=== PATIENT | female | born 1950 | race Hispanic/Latino ===

== ENCOUNTER → 2018-04-25 15:12 | Outpatient (CLI) | payer MEDICARE, SELFPAY ==
[2018-04-25 17:27] LABS: Absolute Lymphocyte Count 3.19 X10^3/ul (0.83-4.51); Absolute Neutrophil Count 4.7 X10^3/uL (2.0-7.7); Basophil# 0.04 X10^3/uL; Basophil% 0.4 % (0-1); Eosinophil# 0.05 X10^3/uL; Eosinophils% 0.6 % (0-5); Hematocrit 46.2 % (37-47); Hemoglobin 15.7 g/dl (12.0-15.0); Lymphocyte # 3.19 X10^3/ul (4.0); Lymphocyte % 35.1 % (19-41); Mean Corpuscular Hgb 31.8 pg (27.0-32.0); Mean Corpuscular Volume 93.5 fL (81-99); Mean Platelet Vol. 10.6 fl (6.2-12.0); Monocyte# 1.13 X10^3/uL; Monocyte% 12.4 % (0-10); Neutrophil # 4.65 X10^3/uL (2.7-7.7); Neutrophil % 51.2 % (47-70); Platelet Count 267 K/mm3 (150-450); RBC Distribution Width CV 13.1 % (11.6-14.6); RBC Distribution Width SD 43.5 fl (35.1-43.9); Red Blood Count 4.94 M/mm3 (4.2-5.4); White Blood Count 9.1 K/mm3 (4.4-11.0)
[2018-04-25 17:32] LABS: POSITIVE COUNT NO; POSITIVE DIFFERENTIAL NO; POSITIVE MORPHOLOGY NO
[2018-04-25 17:50] LABS: Vitamin D,25 Hydroxy 11.3 ng/mL (29.95-100.01)
[2018-04-25 18:02] LABS: ALB/GLOB Ratio 0.9 RATIO (0.9-2.4); AST(SGOT) 27 U/L (15-37); Alanine Aminotransfer ALT/SGPT 40 U/L (13-56); Albumin, Serum 3.5 g/dL (3.2-5.0); Alkaline Phosphatase 73 U/L (45-117); Anion Gap 8 (5-15); BUN 19 mg/dL (7-18); BUN/Creat Ratio 19.9 RATIO (10-20); Calcium,Total 8.9 mg/dL (8.5-10.1); Chloride 103 mmol/L (98-107); Creatinine, Serum 0.96 mg/dL (0.55-1.02); EST Glomerular Filtration Rate 61 mL/min (>60); Est Glom Filt Rate - Afr Amer 74 mL/min (>60); Globulin 3.7 g/dL (2.2-4.2); Glucose 236 mg/dL (74-106); Potassium 3.7 mmol/L (3.5-5.1); Protein, Total 7.2 g/dL (6.4-8.2); Sodium Level 136 mmol/L (136-145); Thyroid Stim Hormone (TSH) 3.04 uIU/mL (0.358-3.74)
--- OUTSIDE RECORDS SUMMARY | 2018-06-27 21:22 | XMS RPT_ITS ---
:1950 Author Organization [place] Support Name Relationship Address Phone GUZMAN AHUMADA Unavailable [address] + [address] [place] [address] R Unavailable Unavailable Unavailable BRITTNEY, GUZMAN Unavailable Unavailable + BRITTNEY, GUZMAN Unavailable Unavailable + BRITTNEY, GUZMAN Unavailable Unavailable + BRITTNEY, GUZMAN Unavailable Unavailable + BRITTNEY, GUZMAN Unavailable Unavailable + BRITTNEY, GUZMAN Unavailable Unavailable + BRITTNEY, GUZMAN Unavailable Unavailable + BRITTNEY, GUZMAN Unavailable Unavailable + BRITTNEY, GUZMAN Unavailable Unavailable + BRITTNEY, GUZMAN Unavailable Unavailable + BRITTNEY, GUZMAN Unavailable Unavailable + BRITTNEY, GUZMAN Unavailable Unavailable + BRITTNEY, GUZMAN Unavailable Unavailable + BRITTNEY, GUZMAN Unavailable Unavailable + BRITTNEY, GUZMAN Unavailable Unavailable + BRITTNEY, GUZMAN Unavailable Unavailable + BRITTNEY, GUZMAN Unavailable Unavailable + BRITTNEY, GUZMAN Unavailable Unavailable + BRITTNEY, GUZMAN Unavailable Unavailable + BRITTNEY, GUZMAN Unavailable Unavailable + BRITTNEY, GUZMAN Unavailable Unavailable + BRITTNEY, GUZMAN Unavailable Unavailable + BRITTNEY, GUZMAN Unavailable Unavailable + BRITTNEY, GUZMAN Unavailable Unavailable + BRITTNEY, GUZMAN Unavailable Unavailable + BRITTNEY, GUZMAN Unavailable Unavailable + BRITTNEY, GUZMAN Unavailable Unavailable + BRITTNEY, GUZMAN Unavailable Unavailable + BRITTNEY, GUZMAN Unavailable Unavailable + BRITTNEY, GUZMAN Unavailable Unavailable + Care Team Providers Name Role Phone SHERRI LOYD MD Attending Unavailable NEERU RANGEL, DR. GILLESPIE Primary Care Unavailable SHERRI LOYD MD Attending Unavailable NEERU RANGEL, DR. GILLESPIE Primary Care Unavailable NEERU RANGEL, DR. GILLESPIE Attending Unavailable NEERU RANGEL, DR. GILLESPIE Primary Care Unavailable KERRY HATFIELD Attending Unavailable NEERU RANGEL, DR. GILLESPIE Primary Care Unavailable IZAIAH MATTA MD Attending Unavailable IZAIAH MATTA MD Referring Unavailable NEERU RANGEL, DR. GILLESPIE Primary Care Unavailable NEERU RANGEL, DR. GILLESPIE Primary Care Unavailable PIPO HAN DO Attending Unavailable NEERU RANGEL, DR. GILLESPIE Attending Verna SIDDIQI MD., DR. GILLESPIE Primary Care Unavailable NEERU RANGEL, DR. GILLESPIE Attending Verna SIDDIQI MD., DR. GILLESPIE Primary Care Unavailable NEERU RANGEL, DR. GILLESPIE Attending Verna SIDDIQI MD., DR. GILLESPIE Primary Care Unavailable NEERU RANGEL, DR. GILLESPIE Attending Verna SIDDIQI MD., DR. GILLESPIE Primary Care Unavailable KERRY HATFIELD Attending Verna SIDDIQI MD., DR. GILLESPIE Primary Care Unavailable SHERRI LOYD MD Attending Unavailable NEERU RANGEL, DR. GILLESPIE Primary Care Unavailable ALBERT MAYES, DR. CASPER Darling Attending Unavailable NEERU RANGEL, DR. GILLESPIE Primary Care Unavailable KERRY HATFIELD Attending Unavailable NEERU RANGEL, DR. GILLESPIE Primary Care Unavailable ANTOINETTE CERVANTES MD Attending Unavailable NEERU RANGEL, DR. GILLESPIE Primary Care Unavailable NEERU, ERIKA CHI Referring Unavailable NEERU, ERIKA CHI Referring Unavailable NEERU, ERIKA CHI Referring Unavailable ENERU, ERIKA CHI Referring Unavailable NEERU, ERIKA CHI Referring Unavailable Neeru, Erika Chi Attending Unavailable Neeru, Erika Chi Primary Care Unavailable PROBLEMS PROBLEMS DATE TYPE CONDITION / CODE ATTENDING STATUS SOURCE 05/24/2017 Active Unknown / NA Active [facility] UNK(Unknown) [facility] PROCEDURES PROCEDURES No Procedure Records FoundRESULTS RESULTS CBC W/DIFF, AUTOMATED Collected: 04/25/2018 Status: F Source: [facility] 3:13 PM [facility] REPOSITORY TYPE CODE TESTS RESULT OUT OF RANGE REFERENCE UNITS LAB L100.1000 4.4-11.0 K/mm3 Normal WBC 9.1 LAB L100.1200 4.2-5.4 M/mm3 Normal RBC 4.94 LAB L100.1300 12.0-15.0 g/dl High HGB 15.7 LAB L100.1400 37-47 % Normal HCT 46.2 LAB L100.1500 81-99 fL Normal MCV 93.5 LAB L100.1600 27.0-32.0 pg Normal MCH 31.8 LAB L100.1700 32-36 g/gl Normal MCHC 34.0 LAB L100.1810 11.6-14.6 % Normal RDW CV 13.1 LAB L100.1820 35.1-43.9 fl Normal RDW SD 43.5 LAB L100.1900 150-450 K/mm3 Normal PLT 267 LAB L100.2000 6.2-12.0 fl Normal MPV 10.6 LAB L100.2100 47-70 % Normal NEUT% 51.2 LAB L100.2200 19-41 % Normal LY% 35.1 LAB L100.2300 0-10 % High MONO% 12.4 LAB L100.2400 0-5 % Normal EO% 0.6 LAB L100.2500 0-1 % Normal BASO% 0.4 LAB L100.2550 0.0-0.9 % Normal IM GRAN % 0.300 Result Comment: IG% - Immature Granulocytes (promyelocytes, myelocytes and metamyelocytes) > 1% indicates that a LEFT SHIFT is Present. LAB L100.2620 2.0-7.7 X10 3/uL Normal Absolute Neut 4.7 LAB L100.2720 0.83-4.51 X10 3/ul Normal Absolute Lymph 3.19 Performed By: #### L100.0100 #### [facility] [place], [address] VITAMIN D,25 HYDROXY Collected: 04/25/2018 Status: F Source: [facility] 3:13 PM [facility] REPOSITORY TYPE CODE TESTS RESULT OUT OF REFERENCE UNITS RANGE LAB L506.1000 29.95-100.01 ng/mL Low Vitamin D 11.3 25-OH Result Comment: Vitamin D 25(OH) Status Range Deficiency <20 ng/mL (50nmol/L) Insuffciency 20 - 30 ng/mL (50 - 75 nmol/L) Sufficiency 30 - 100 ng/mL (75 - 250 nmol/L) Toxicity >100 ng/mL (>250 nmol/L) Performed By: #### L506.1000 #### [facility] [address] [place], [address] COMPREHENSIVE METABOLIC Collected: 04/25/2018 Status: F Source: [facility] 3:13 PM [facility] REPOSITORY TYPE CODE TESTS RESULT OUT OF RANGE REFERENCE UNITS LAB L501.0100 74-106 mg/dL High GLU 236 Result Comment: Glucose result greater than or equal to 200 mg/dL suggests DIABETES MELLITUS per A.D.A. criteria. Please note revised GLUCOSE reference range effective 2017. LAB L501.1000 7-18 mg/dL High BUN 19 LAB L501.1100 0.55-1.02 mg/dL Normal CREAT,SERUM 0.96 Result Comment: The validity of the calculated GFR AND GFRAA in patients over 70 years has not been determined. Clinical correlation is essential. LAB L501.1110 >60 mL/min Normal EST GFR 61 Result Comment: Non- GFR Calc LAB L501.1115 >60 mL/min Normal EST GFR - AA 74 Result Comment: GFR Calc LAB L501.1300 10-20 RATIO Normal BUN/CRE 19.9 LAB L501.1500 6.4-8.2 g/dL T Normal PROT 7.2 LAB L501.1800 3.2-5.0 g/dL Normal ALB 3.5 LAB L501.1950 2.2-4.2 g/dL Normal GLOB 3.7 LAB L501.2000 0.9-2.4 RATIO Normal A/G 0.9 LAB L501.2200 8.5-10.1 mg/dL CA Normal 8.9 LAB L501.4100 15-37 U/L Normal AST 27 LAB L501.4305 45-117 U/L Normal ALK P 73 LAB L501.4405 13-56 U/L Normal ALT 40 LAB L501.4600 0.20-1.00 mg/dL T Normal BILI 0.40 LAB L501.5300 136-145 mmol/L NA Normal 136 LAB L501.5600 3.5-5.1 mmol/L K Normal 3.7 LAB L501.5900 98-107 mmol/L CL Normal 103 LAB L501.6100 21.0-32.0 mmol/L Normal CO2 25.0 LAB L501.6200 5-15 Normal GAP 8 Performed By: #### L500.4050, L501.9520 #### [facility] [address] [facility], [address] THYROID STIM HORMONE Collected: 04/25/2018 Status: F Source: [place] (TSH) 3:13 PM [facility] REPOSITORY TYPE CODE TESTS RESULT OUT OF RANGE REFERENCE UNITS LAB L501.9520 0.358-3.74 uIU/mL Normal TSH 3.04 Performed By: #### L500.4050, L501.9520 #### [facility] [address] [place], [address] XR CHEST 1 VIEW Observed: 02/26/2018 Status: F Source: [facility] 6:35 PM [facility] REPOSITORY ORIGINAL XR CHEST 1 VIEW Clinical Statement: chest pain. COMPARISON: 02/15/2018 FINDINGS: There is no focal consolidation. No pleural fluid or pneumothorax. The heart size is within normal limits. There is no visible rib fracture or aggressive osseous lesion. RIGHT hemidiaphragm is elevated. IMPRESSION: No acute cardiopulmonary abnormality. Interpreted By: Nhan Pardo Preliminary Report By: Nhan Pardo Electronically Signed By: Nhan Pardo Dictated Date: 02/26/2018 6:43:45 PM Prelim Date: 02/26/2018 6:43:45 PM Sign Date: 02/26/2018 6:44:46 PM CBC Collected: 02/26/2018 Status: F Source: [facility] 6:27 PM [facility] REPOSITORY TYPE CODE TESTS RESULT OUT OF REFERENCE UNITS RANGE LAB WBC(LOINC) 4.60-10.80 10 3/mcL High WBC 13.70 LAB RBCCT(LOINC 4.20-5.40 10 6/mcL ) RBC 5.32 LAB HGB(LOINC) 12.0-16.0 G/dL High Hgb 16.7 LAB HCT(LOINC) 37.0-47.0 % High Hct 50.0 LAB MCV(LOINC) 80.0-94.0 fL High MCV 94.1 LAB MCH(LOINC) 27.0-31.2 pg High MCH 31.5 LAB MCHC(LOINC) 33.0-37.0 G/dL MCHC 33.4 LAB RDW(LOINC) 11.5-14.5 % RDW 13.3 LAB PLT(LOINC) 130-400 10 3/mcL Platelet 297 LAB MPV(LOINC) 7.4-10.4 fL MPV 8.4 Performed By: #### CBC, ADIFF, ANEU #### [address] [address] #### TROP, BMP, GFR #### [address] [place] [address] [address] .AUTO DIFF Collected: 02/26/2018 Status: F Source: [facility] 6:27 PM [facility] REPOSITORY TYPE CODE TESTS RESULT OUT OF REFERENCE UNITS RANGE LAB ALYSON(LOINC) 37.0-80.0 % Neutrophil % 55.0 LAB LYM(LOINC) 10.0-50.0 % Lymphocyte % 33.3 LAB MON(LOINC) 1.7-13.0 % Monocyte % 10.0 LAB EO(LOINC) 0.0-7.0 % Eosinophil % 0.9 LAB BAS(LOINC) 0.0-2.5 % Basophil % 0.8 LAB ABLYM(LOIN 0.77-3.85 10 3/mcL C) High Lymphocyte, 4.60 Absolute LAB GINETTE(LOINC 0.15-1.00 10 3/mcL ) High Monocyte, 1.40 Absolute LAB AEOS(LOINC 0.00-0.40 10 3/mcL ) Eosinophil, 0.10 Absolute LAB ABAS(LOINC 0.00-0.19 10 3/mcL ) Basophil, 0.10 Absolute Performed By: #### CBC, ADIFF, ANEU #### [address] [address] #### TROP, BMP, GFR #### [place] [id number] .NEUABS Collected: 02/26/2018 Status: F Source: [facility] 6:27 [facility] REPOSITORY TYPE CODE TESTS RESULT OUT OF REFERENCE UNITS RANGE LAB ANEU(LOINC) 2.85-6.16 10 3/mcL High Neutrophil, 7.50 Absolute Performed By: #### CBC, ADIFF, ANEU #### [place] [id number] #### TROP, BMP, GFR #### [place] [address] TROP Collected: 02/26/2018 Status: F Source: [facility] 6:27 [facility] REPOSITORY TYPE CODE TESTS RESULT OUT OF REFERENCE UNITS RANGE LAB TROP(LOINC) 0.000-0.040 ng/mL Troponin <0.020 Result Comment: Troponin I reference range: 0.00-0.040 ng/mL Negative and non-diagnostic. >0.040 ng/mL Consistent with cardiac damage, increased clinical risk and possibility of myocardial infarction. Serial measurements, a rise & fall in test results, clinical history, appropriate symptoms and/or ECG changes may help assess possibility of [place]. *Other non-acute coronary syndrome conditions such as CHF, myocarditis, pulmonary emboli, sepsis and cardiac surgery could result in myocardial damage and increased troponin levels. Performed By: #### CBC, ADIFF, ANEU #### [address] [address] #### TROP, BMP, GFR #### [place] [address] BMP Collected: 02/26/2018 Status: F Source: [facility] 6:27 [facility] REPOSITORY TYPE CODE TESTS RESULT OUT OF REFERENCE UNITS RANGE LAB GLU(LOINC) 80-115 mg/dL Glucose High Level 205 LAB NA(LOINC) 136-145 mmol/L Low Sodium Level 132 LAB K(LOINC) 3.5-5.1 mmol/L Potassium Level 4.0 LAB CL(LOINC) 98-107 mmol/L Low Chloride 96 LAB CO2(LOINC) 23-31 mmol/L CO2 24 LAB EBAL(LOINC mEq/L ) Electrolyte Balance 12.0 LAB BUN(LOINC) 7-18 mg/dL BUN High 26 LAB CRE(LOINC) 0.55-1.02 mg/dL Creatinine High Lvl (s) 1.15 LAB BC(LOINC) 7-27 ratio BUN/Creatinine 23 Ratio LAB CA(LOINC) 8.4-10.2 mg/dL Calcium Lvl 9.6 Performed By: #### CBC, ADIFF, ANEU #### [facility] [address] [place], [place] [address] #### TROP, BMP, GFR #### [facility] [address] [place] [address] .GFR Collected: 02/26/2018 Status: F Source: [facility] 6:27 PM [facility] REPOSITORY TYPE CODE TESTS RESULT OUT OF REFERENCE UNITS RANGE LAB GFRAA(LOINC ml/min/1.73 ) sqm GFR 57 Swiss Result Comment: GFR Population mean for , Non- Americans Ages 20-29 = 116 mL/min/1.73 sq.m. Ages 30-39 = 107 mL/min/1.73 sq.m. Ages 40-49 = 99 mL/min/1.73 sq.m. Ages 50-59 = 93 mL/min/1.73 sq.m. Ages 60-69 = 85 mL/min/1.73 sq.m. Ages 70+ = 75 mL/min/1.73 sq.m. Chronic Kidney Disease: Less than 60 mL/min/1.73 square meters End Stage Renal Disease: Less than 15 mL/min/1.73 square meters LAB GFRNO(LOINC) ml/min/1.73sqm GFR Non- 47 Result Comment: GFR Population mean for , Non- Americans Ages 20-29 = 116 mL/min/1.73 sq.m. Ages 30-39 = 107 mL/min/1.73 sq.m. Ages 40-49 = 99 mL/min/1.73 sq.m. Ages 50-59 = 93 mL/min/1.73 sq.m. Ages 60-69 = 85 mL/min/1.73 sq.m. Ages 70+ = 75 mL/min/1.73 sq.m. Chronic Kidney Disease: Less than 60 mL/min/1.73 square meters End Stage Renal Disease: Less than 15 mL/min/1.73 square meters Performed By: #### CBC, ADIFF, ANEU #### [facility] [address] [place], [place] [address] #### TROP, BMP, GFR #### [facility] [address] [place] [address] XR CHEST 2 VIEWS Observed: 02/15/2018 Status: F Source: [facility] 3:53 PM [facility] REPOSITORY ORIGINAL XR CHEST 2 VIEWS, 02/15/2018 3:55 PM INDICATION: Cough/Fever Suspect Pneumonia COMPARISON: October 2017 FINDINGS: The lungs and pleural spaces are clear. The cardiac silhouette is within normal size limits. The pulmonary vasculature is unremarkable in appearance. IMPRESSION: Clear lungs. Interpreted By: Vimal Byrne MD Preliminary Report By: Vimal Byrne MD Electronically Signed By: Vimal Byrne MD Dictated Date: 02/15/2018 3:58:33 PM Prelim Date: 02/15/2018 3:58:33 PM Sign Date: 02/15/2018 3:58:59 PM RESP VIR PNL BY Collected: 02/15/2018 Status: F Source: [facility] 8:50 AM [facility] REPOSITORY TYPE CODE TESTS RESULT OUT OF REFERENCE UNITS RANGE LAB RVPSRC Resp Viral Panl Nasopharyngeal Srce Swab LAB FLUARV Negative Influenza A Virus Negative LAB [id number] Negative Influenza A H1N1 Negative 09 LAB FLUBRV Negative Influenza B Virus Negative LAB RSVA Negative Resp Syncytial Negative Vir A LAB RSVB Negative Resp Syncytial Negative Vir B LAB PIV1 Negative Parainfluenza 1 Negative LAB PIV2 Negative Parainfluenza 2 Negative LAB PIV3 Negative Parainfluenza 3 Negative LAB HMPV Negative H Metapneumovirus Negative LAB HRV Negative Rhinovirus Negative LAB ADVBE Negative Adenovirus B/E Negative LAB ADVC Negative Adenovirus C Negative Performed By: #### RVPPCR #### [facility] [address] [place], [place] [address] PROGRESS Observed: 11/09/2017 Status: COMPLETED Source: [place] 3:34 PM [facility] REPOSITORY HNO ID: [id number] Author: Sade Craig) Donny Parker Service: (none) Author Type: Braille Teacher Type: Progress Notes Filed: 11/09/2017 3:34 PM Note Text: Radiology Service Progress Note PATIENT NAME: Yenny Ahumada DATE OF SERVICE: November 09, 2017 TIME: 3:34 PM PATIENT IDENTITY VERIFICATION COMPLETED USING TWO (2) METHODS: Patient confirmed name verbally and Date of . PATIENT GENDER DATA: Female. status: : No status: NO. PATIENT RELEVANT IMPLANT DATA REVIEWED: Not Applicable RADIOLOGY DEPARTMENT: General X-ray: Exam(s) Completed: Spine X-Ray(s): Thoracic PERIPHERAL IV DATA: Not applicable SIGNED BY: Donny Angela November 09, 2017 3:34 PM XR THORACIC 3V Observed: 11/09/2017 Status: F Source: [facility] AP/LAT/[facility]IMM[facility] 3:18 PM [facility] REPOSITORY * * *Final Report* * * DATE OF EXAM: Nov 09 2017 3:18PM [id number] - XR THORACIC 3V AP/LAT/SWIMMERS / PROCEDURE REASON: pain * * * * Physician Interpretation * * * * HISTORY: 59-YEAR-OLD FEMALE WITH pain. mid upper back pain where bra strap clasps/pain for about 6 months but getting worse TECHNIQUE: XR THORACIC 3V AP/LAT/SWIMMERS Laterality: NOT APPLICABLE Number of different views (projections): 3 COMPARISON: 08/04/2016 RESULT: Counting reference: The first rib-bearing vertebral bodies considered T1. There are 12 thoracic vertebrae. Minimal curve of the upper thoracic spine convex right centered at T5/T6. Vertebral bodies and pedicles are intact. Again noted is mild narrowing at T11/T12 and T12/L1 disc spaces. The remaining disc spaces are maintained. IMPRESSION: MILD DISC SPACE NARROWING IN THE THORACIC AND UPPER LUMBAR SPINE MILD DEXTROSCOLIOSIS. Professional Application Designer: PSCB Transcribe Date/Time: Nov 09 2017 3:41P Dictated by : KEYLA JACOBO MD This examination was interpreted and the report reviewed and electronically signed by: KEYLA JACOBO MD on Nov 09 2017 3:43PM EST [id number] XR CHEST 2 VIEWS Observed: 10/28/2017 Status: F Source: [facility] 8:27 PM [facility] REPOSITORY ORIGINAL XR CHEST 2 VIEWS CLINICAL STATEMENT: Chest Pain COMPARISON: Chest radiograph 02/26/2017 FINDINGS: The cardiomediastinal contours are normal. There is no consolidation, vascular congestion, pleural effusion, or pneumothorax. Osseous structures demonstrate no acute abnormalities. IMPRESSION: No acute radiographic findings. I have personally reviewed the images of this examination and agree with the resident's findings and interpretation. Interpreted By: Nhan Doyle MD Preliminary Report By: Betty Messer MD Electronically Signed By: Nhan Doyle MD Dictated Date: 10/28/2017 8:38:43 PM Prelim Date: 10/28/2017 8:40:04 PM Sign Date: 10/28/2017 8:42:02 PM CBC Collected: 10/28/2017 Status: F Source: [facility] 8:12 PM [facility] REPOSITORY TYPE CODE TESTS RESULT OUT OF REFERENCE UNITS RANGE LAB WBC(LOINC) 4.60-10.80 10 3/mcL High WBC 11.10 LAB RBCCT(LOINC 4.20-5.40 10 6/mcL ) RBC 4.66 LAB HGB(LOINC) 12.0-16.0 G/dL Hgb 14.9 LAB HCT(LOINC) 37.0-47.0 % Hct 43.2 LAB MCV(LOINC) 80.0-94.0 fL MCV 92.7 LAB MCH(LOINC) 27.0-31.2 pg High MCH 32.0 LAB MCHC(LOINC) 33.0-37.0 G/dL MCHC 34.5 LAB RDW(LOINC) 11.5-14.5 % RDW 13.2 LAB PLT(LOINC) 130-400 10 3/mcL Platelet 255 LAB MPV(LOINC) 7.4-10.4 fL MPV 8.4 Performed By: #### CBC, ADIFF, ANEU #### [facility] [address] [place], [place] [address] #### BMP, TROP, GFR #### [address] [place] [address] [address] .AUTO DIFF Collected: 10/28/2017 Status: F Source: [facility] 8:12 PM [facility] REPOSITORY TYPE CODE TESTS RESULT OUT OF REFERENCE UNITS RANGE LAB ALYSON(LOINC) 37.0-80.0 % Neutrophil % 55.1 LAB LYM(LOINC) 10.0-50.0 % Lymphocyte % 33.4 LAB MON(LOINC) 1.7-13.0 % Monocyte % 9.0 LAB EO(LOINC) 0.0-7.0 % Eosinophil % 1.3 LAB BAS(LOINC) 0.0-2.5 % Basophil % 1.2 LAB ABLYM(LOIN 0.77-3.85 10 3/mcL C) Lymphocyte, 3.70 Absolute LAB GINETTE(LOINC 0.15-1.00 10 3/mcL ) Monocyte, 1.00 Absolute LAB AEOS(LOINC 0.00-0.40 10 3/mcL ) Eosinophil, 0.10 Absolute LAB ABAS(LOINC 0.00-0.19 10 3/mcL ) Basophil, 0.10 Absolute Performed By: #### CBC, ADIFF, ANEU #### [facility] [address] [place], [place] [address] #### BMP, TROP, GFR #### [place] [id number] .NEUABS Collected: 10/28/2017 Status: F Source: [facility] 8:12 PM [facility] REPOSITORY TYPE CODE TESTS RESULT OUT OF REFERENCE UNITS RANGE LAB ANEU(LOINC) 2.85-6.16 10 3/mcL Neutrophil, 6.10 Absolute Performed By: #### CBC, ADIFF, ANEU #### [facility] [address] [place], [place] [address] #### BMP, TROP, GFR #### [place] [address] BMP Collected: 10/28/2017 Status: F Source: [facility] 8:12 PM [facility] REPOSITORY TYPE CODE TESTS RESULT OUT OF REFERENCE UNITS RANGE LAB GLU(LOINC) 80-115 mg/dL Glucose High Level 151 LAB NA(LOINC) 136-145 mmol/L Sodium Level 136 LAB K(LOINC) 3.5-5.1 mmol/L Potassium Level 4.5 LAB CL(LOINC) 98-107 mmol/L Chloride 102 LAB CO2(LOINC) 23-31 mmol/L CO2 25 LAB EBAL(LOINC mEq/L ) Electrolyte Balance 9.0 LAB BUN(LOINC) 7-18 mg/dL BUN High 24 LAB CRE(LOINC) 0.55-1.02 mg/dL Creatinine High Lvl (s) 1.06 LAB BC(LOINC) 7-27 ratio BUN/Creatinine 23 Ratio LAB CA(LOINC) 8.4-10.2 mg/dL Calcium Lvl 9.0 Performed By: #### CBC, ADIFF, ANEU #### [address] [address] #### BMP, TROP, GFR #### [address] [place] [address] [address] TROP Collected: 10/28/2017 Status: F Source: [facility] 8:12 PM [facility] REPOSITORY TYPE CODE TESTS RESULT OUT OF REFERENCE UNITS RANGE LAB TROP(LOINC) 0.000-0.040 ng/mL Troponin <0.020 Result Comment: Troponin I reference range: 0.00-0.040 ng/mL Negative and non-diagnostic. >0.040 ng/mL Consistent with cardiac damage, increased clinical risk and possibility of myocardial infarction. Serial measurements, a rise & fall in test results, clinical history, appropriate symptoms and/or ECG changes may help assess possibility of [place]. *Other non-acute coronary syndrome conditions such as CHF, myocarditis, pulmonary emboli, sepsis and cardiac surgery could result in myocardial damage and increased troponin levels. Performed By: #### CBC, ADIFF, ANEU #### [address] [address] #### BMP, TROP, GFR #### [address] [place] [address] [address] .GFR Collected: 10/28/2017 Status: F Source: [facility] 8:12 [facility] REPOSITORY TYPE CODE TESTS RESULT OUT OF REFERENCE UNITS RANGE LAB GFRAA(LOINC ml/min/1.73 ) sqm GFR 62 Swiss Result Comment: GFR Population mean for , Non- Americans Ages 20-29 = 116 mL/min/1.73 sq.m. Ages 30-39 = 107 mL/min/1.73 sq.m. Ages 40-49 = 99 mL/min/1.73 sq.m. Ages 50-59 = 93 mL/min/1.73 sq.m. Ages 60-69 = 85 mL/min/1.73 sq.m. Ages 70+ = 75 mL/min/1.73 sq.m. Chronic Kidney Disease: Less than 60 mL/min/1.73 square meters End Stage Renal Disease: Less than 15 mL/min/1.73 square meters LAB GFRNO(LOINC) ml/min/1.73sqm GFR Non- 52 Result Comment: GFR Population mean for , Non- Americans Ages 20-29 = 116 mL/min/1.73 sq.m. Ages 30-39 = 107 mL/min/1.73 sq.m. Ages 40-49 = 99 mL/min/1.73 sq.m. Ages 50-59 = 93 mL/min/1.73 sq.m. Ages 60-69 = 85 mL/min/1.73 sq.m. Ages 70+ = 75 mL/min/1.73 sq.m. Chronic Kidney Disease: Less than 60 mL/min/1.73 square meters End Stage Renal Disease: Less than 15 mL/min/1.73 square meters Performed By: #### CBC, ADIFF, ANEU #### [place] [address] [address] #### BMP, TROP, GFR #### [address] [place] [address] [address] XR SACRUM/COCCYX 3V Observed: 10/04/2017 Status: F Source: [place] AP/LAT 12:20 PM [facility] REPOSITORY * * *Final Report* * * DATE OF EXAM: Oct 04 2017 12:20PM [id number] - XR SACRUM/COCCYX 3V AP/LAT / PROCEDURE REASON: back pain * * * * Physician Interpretation * * * * EXAM TITLE: XR SACRUM/COCCYX 3V AP/LAT EXAM DATE/TIME: 10/04/2017 12:20 PM COMPARISON: None. CLINICAL INDICATION/HISTORY: Pain in the coccyx. TECHNIQUE: AP and the lateral views of the sacrum/coccyx are presented. FINDINGS: No acute fractures noted in the sacrum. There is acute angulation of the distal sacrum noted on lateral view. No coccygeal subluxation. A transitional vertebra demonstrated at the lumbosacral junction. The visualized pelvic bones are intact. There are vascular calcifications. IMPRESSION: Acute angulation of the distal sacrum; please clinically correlate. Transitional vertebra at the lumbosacral junction. Professional Application Designer: RETA Transcribe Date/Time: Oct 04 2017 3:37P Dictated by : ELFEGO CHAN MD This examination was interpreted and the report reviewed and electronically signed by: ELFEGO CHAN MD on Oct 04 2017 3:40PM EST [id number] Observed: 10/04/2017 Status: COMPLETED Source: [place] 12:09 PM [facility] REPOSITORY HNO ID: [id number] Author: Letty Mendez (Rt) Donny Wilkins Service: (none) Author Type: Braille Teacher Type: Progress Notes Filed: 10/04/2017 12:17 PM Note Text: Radiology Service Progress Note PATIENT NAME: Yenny Ahumada DATE OF SERVICE: October 04, 2017 TIME: 12:09 PM PATIENT IDENTITY VERIFICATION COMPLETED USING TWO (2) METHODS: Patient confirmed name verbally and Date of . PATIENT GENDER DATA: Female. status: : No status: NO. PATIENT RELEVANT IMPLANT DATA REVIEWED: Not Applicable RADIOLOGY DEPARTMENT: General X-ray: Exam(s) Completed: Spine X-Ray(s): Sacrum/Coccyx PERIPHERAL IV DATA: Not applicable SIGNED BY: RT Susi October 04, 2017 12:09 PM US ABDOMEN LIMITED Observed: 09/23/2017 Status: F Source: [facility] 10:35 AM [facility] REPOSITORY ORIGINAL US ABDOMEN LIMITED: Ultrasound of the RIGHT upper quadrant CLINICAL STATEMENT: gallstone, pain, COMPARISON: CT ABD/PELVIS W/ IV CONTRAST ONLY 06/29/2017 FINDINGS: The liver is diffusely increased in echogenicity in comparison to the adjacent kidney with decreased visualization of periportal echoes, suggesting hepatic steatosis. There is a region of focal fatty sp aring adjacent to the gallbladder. No focal lesion is identified. There is no intra or extrahepatic bile duct dilatation. The common duct is 3 mm at the arely hepatis. The gallbladder is normally distended without calculus, wall thickening or tenderness. The visualized pancreas is normal in size and echogenicity. No ascites is seen in the Strange's pouch. The right k idney shows no pelvocaliectasis. IMPRESSION: 1. No acute sonographic finding is identified in the RIGHT upper quadrant. 2. Hepatic steatosis. Interpreted By: Sandra Zarco MD Preliminary Report By: Sandra Zarco MD Electronically Signed By: Sandra Zarco MD Dictated Date: 09/23/2017 12:07:54 PM Prelim Date: 09/23/2017 12:07:54 PM Sign Date: 09/23/2017 12:14:[address] ABD/PEL W IVCON Observed: 09/14/2017 Status: F Source: [place] 3:30 PM [facility] [place] REPOSITORY * * *Final Report* * * DATE OF EXAM: Sep 14 2017 3:30PM [facility] 0530 - CT ABD/PEL W IVCON / PROCEDURE REASON: DIVERTICULITIS OF COLON * * * * Physician Interpretation * * * * EXAMINATION: CT ABDOMEN AND PELVIS WITH IV CONTRAST CLINICAL HISTORY: LEFT lower quadrant pain TECHNIQUE: CT of the abdomen and pelvis was performed using standard technique, scanning from just above the dome of the diaphragm to the symphysis pubis. MQ: CTAP_3 Contrast: IV: 100 ml of Omnipaque 300 Oral: 50 ml of 50ML Omnipaque [address] Radiation dose: Integrated Dose-length product (DLP) for this visit = 355 mGy*cm. CT Dose Reduction Employed: Automated exposure control (AEC) COMPARISON: None. RESULT: Liver: No mass. Biliary: No bile duct dilation. Gallbladder is unremarkable. Spleen: 9 mm low attenuation inferior splenic lesion is indeterminate, likely benign. No splenomegaly. Pancreas: No mass or duct dilation. Adrenals: No mass. Kidneys: Subcentimeter low-attenuation renal lesions, too small to characterize, likely benign. GI tract: No dilation or wall thickening. Lymph nodes: No abdominal or pelvic lymphadenopathy. Mesentery/Peritoneum: No ascites or mass. Retroperitoneum: No mass. Vasculature: The celiac axis and SMA are patent. The portal vein and branches, splenic vein, SMV, and hepatic veins are patent. Pelvis: No mass, ascites or fluid collection. Status post hysterectomy Bones/Soft Tissues: Degenerative changes, no acute bone abnormality. Lower thorax: Only the lung bases are evaluated. There are no pulmonary parenchymal nodules/opacities. IMPRESSION: UNREMARKABLE STUDY. NO ACUTE PROCESS IN THE ABDOMEN AND PELVIS. Professional Application Designer: RETA Transcribe Date/Time: Sep 14 2017 3:56P Dictated by : SUYAPA STANLEY MD This examination was interpreted and the report reviewed and electronically signed by: SUYAPA STANLEY MD on Sep 14 2017 3:59PM EST [id number] PROGRESS Observed: 09/14/2017 Status: COMPLETED Source: [place] 3:21 PM [facility] REPOSITORY O ID: [id number] Author: Lauren Caputo Service: (none) Author Type: (none) Type: Progress Notes Filed: 09/14/2017 3:22 PM Note Text: Radiology Service Progress Note PATIENT NAME: Yenny Ahumada DATE OF SERVICE: September 14, 2017 TIME: 3:21 PM PATIENT IDENTITY VERIFICATION COMPLETED USING TWO (2) METHODS: Patient confirmed name verbally and Date of . PATIENT GENDER DATA: Female. status: : No status: NO. PATIENT RELEVANT IMPLANT DATA REVIEWED: Not Applicable CONTRAST INDUCED NEPHROPATHY RISK FACTORS: Patient age > 60 years CREATININE: Creatinine Date Value Ref Range Status 10/18/2016 0.70 0.58 - 0.96 mg/dL Final 09/27/2016 1.00 (H) 0.58 - 0.96 mg/dL Final 07/28/2016 1.01 (H) 0.58 - 0.96 mg/dL Final eGFR-All Other Races Date Value Ref Range Status 10/18/2016 >60 . Final Comment: eGFR (Estimated GFR) Units of measure: mL/min/1.73 meters squared eGFR is derived from the reexpressed MDRD Study equation using the following parameters: serum creatinine, age, gender and race. The creatinine assay has been calibrated to be traceable to IDMS. An eGFR <60 mL/min/1.73m2 for >3 months is consistent with chronic kidney disease. Refer to KDOQI guidelines for clinical interpretation. In patients with unstable renal function, e.g. those with acute kidney injury, the eGFR may not accurately reflect actual GFR. eGFR- Date Value Ref Range Status 10/18/2016 >60 Final P.O.C.T. RESULTS: POC done: Yes, See Lab Tab September 14, 2017 RADIOLOGIST NOTIFIED?: No ALLERGIES: Reviewed and unchanged CONTRAST ALLERGY: NO. PERIPHERAL IV ACCESS: Ambulatory: IV type: A peripheral IV was started in the Left hand with a Angio cath: 22 gauge., Site assessment: Clean,Dry and Intact, Site disposition Discontinued RADIOLOGY DEPARTMENT: CT; Exam(s) Completed: Abdomen/Pelvis SIGNED BY: Lauren Best Ct September 14, 2017 3:21 PM SAMUEL CREATININE Collected: 09/14/2017 Status: F Source: [place] 1:00 PM [facility] [place] REPOSITORY TYPE CODE TESTS RESULT OUT OF REFERENCE UNITS RANGE LAB WCRET 0.7-1.4 mg/dL Samuel Creatinine 0.7 MA MAMMOGRAM Observed: 08/18/2017 Status: F Source: [facility] DIAGNOSTIC BILATERAL 1:30 PM [facility] REPOSITORY W/AMANDA ORIGINAL FROM: [facility] [address] [address] PROCEDURE FOR: YENNY AHUMADA [address] [place] [address] Home: PID#: [id number] Exam#: [id number] : 1950 Age: 67 TO: VERNA SIDDIQI MD [address] [place] [address] #[id number] DIGITAL DIAGNOSTIC MAMMOGRAM 3D/2D WITH CAD WITH MEDIOLATERAL OBLIQUE CRANIOCAUDAL: 08/18/2017 CLINICAL: Generalized pain/Right breast only x 2-3 days was off and on now constant. No prior exams were available for comparison. There are scattered fibroglandular elements in both breasts. Current study was also evaluated with a Computer Aided Detection (CAD) system. Scattered calcifications are present in both breasts. No significant masses, calcifications, or other findings are seen in either breast. IMPRESSION: BENIGN There is no mammographic abnormality seen in the right breast to correspond with the pain; clinical follow-up is recommended. There is no mammographic evidence of malignancy. A 1 year screening mammogram is recommended. ARGENIS OVALLE MD [facility]/:09/06/2017 16:55:25 Corn Cutter Operator: PAULINA ALVARADO RT(R), [facility] letter sent: Normal BI-RADS 1&2 Mammogram BI-RADS: [address] ABD/PELVIS W/ IV Observed: 06/29/2017 Status: F Source: [facility] CONTRAST ONLY 8:05 PM [facility] REPOSITORY ORIGINAL CT ABD/PELVIS W/ IV CONTRAST ONLY CLINICAL STATEMENT: Right lower quadrant pain. COMPARISON: CT abdomen pelvis 04/29/2016 TECHNIQUE: Axial images were obtained from the lung bases through the pubic symphysis after the administration of IV contrast. Coronal and sagittal reformatted images were generated from the axial datas et. This exam was performed according to our departmental dose optimization program, and includes the following measures where applicable: automated exposure control, adjustment of the mAs and/or kVp ac cording to patient size and/or exam, and an iterative reconstruction algorithm. FINDINGS: There is redemonstration of a 3 mm nodule within the right lower lobe (image 4). There is mild subsegmental atelectasis. Heart size is normal. There are coronary artery calcifications. The liver, gallbladder, pancreas, spleen, and adrenal glands demonstrate no acute abnormality. The kidneys are symmetric in size and enhancement without evidence of solid mass. Gentle lobulation of the renal parenchyma bilaterally are unchanged. Subcentimeter hypodensity within the left kidney is also unchanged, too small to accurately characterize, and likely reflects a small cyst. No significant pelvocaliectasis or perinephric stranding. No focal bladder abnormalities identified. The patient is status post hysterectomy. No adnexal mass is seen. The large and small bowel are normal in caliber with the majority of the sigmoid colon and rectum being completely collapsed. The appendix is normal. The abdominal aorta is nonaneurysmal atherosclerotic calcification. There are no pathologically enlarged abdominal or pelvic lymph nodes. No free fluid or free intraperitoneal air. Soft tissue density w ithin the subcutaneous fat of the anterior abdominal wall inferiorly is likely related to medication self administration. Degenerative changes are seen throughout the visualized axial skeleton. Previous ly described, S5 fracture is unchanged. No evidence of an acute or destructive osseous lesion. IMPRESSION: 1. Normal appendix. 2. No acute process. 3. Stable 3 mm nodule within the right lower lobe. If the patient is considered high risk, a repeat CT of the chest in 12 months is recommended per Fleischner criteria. 2017 Fleischner Society Recommendations for Single Solid Lung Nodule Follow-Up based on size (average of long- and short-axis diameters) <6 mm Low-Risk Patient: No routine follow-up <6 mm High-Risk Patient: Optional CT at 12 months I have personally reviewed the images of this examination and agree with the resident's findings and interpretation. Interpreted By: Curly Aguilar MD Preliminary Report By: Lauri Douglas MD Electronically Signed By: Curly Aguilar MD Dictated Date: 06/29/2017 8:21:32 PM Prelim Date: 06/29/2017 8:28:52 PM Sign Date: 06/29/2017 9:15:38 PM CBC Collected: 06/29/2017 Status: F Source: [facility] 6:59 PM [facility] REPOSITORY TYPE CODE TESTS RESULT OUT OF REFERENCE UNITS RANGE LAB WBC(LOINC) 4.60-10.80 10 3/mcL WBC 10.60 LAB RBCCT(LOINC 4.20-5.40 10 6/mcL ) RBC 4.82 LAB HGB(LOINC) 12.0-16.0 G/dL Hgb 15.9 LAB HCT(LOINC) 37.0-47.0 % Hct 44.9 LAB MCV(LOINC) 80.0-94.0 fL MCV 93.1 LAB MCH(LOINC) 27.0-31.2 pg High MCH 32.9 LAB MCHC(LOINC) 33.0-37.0 G/dL MCHC 35.3 LAB RDW(LOINC) 11.5-14.5 % RDW 13.6 LAB PLT(LOINC) 130-400 10 3/mcL Platelet 243 LAB MPV(LOINC) 7.4-10.4 fL MPV 8.4 Performed By: #### CBC, ADIFF, ANEU, GFR, LIP, CMP #### [place] [id number] .AUTO DIFF Collected: 06/29/2017 Status: F Source: [facility] 6:59 PM [facility] REPOSITORY TYPE CODE TESTS RESULT OUT OF REFERENCE UNITS RANGE LAB ALYSON(LOINC) 37.0-80.0 % Neutrophil % 61.1 LAB LYM(LOINC) 10.0-50.0 % Lymphocyte % 28.9 LAB MON(LOINC) 1.7-13.0 % Monocyte % 8.2 LAB EO(LOINC) 0.0-7.0 % Eosinophil % 0.4 LAB BAS(LOINC) 0.0-2.5 % Basophil % 1.4 LAB ABLYM(LOIN 0.77-3.85 10 3/mcL C) Lymphocyte, 3.10 Absolute LAB GINETTE(LOINC 0.15-1.00 10 3/mcL ) Monocyte, 0.90 Absolute LAB AEOS(LOINC 0.00-0.40 10 3/mcL ) Eosinophil, 0.00 Absolute LAB ABAS(LOINC 0.00-0.19 10 3/mcL ) Basophil, 0.10 Absolute Performed By: #### CBC, ADIFF, ANEU, GFR, LIP, CMP #### [address] [address] .NEUABS Collected: 06/29/2017 Status: F Source: [facility] 6:59 PM [facility] REPOSITORY TYPE CODE TESTS RESULT OUT OF REFERENCE UNITS RANGE LAB ANEU(LOINC) 2.85-6.16 10 3/mcL High Neutrophil, 6.50 Absolute Performed By: #### CBC, ADIFF, ANEU, GFR, LIP, CMP #### [address] [address] .GFR Collected: 06/29/2017 Status: F Source: [facility] 6:59 PM [facility] REPOSITORY TYPE CODE TESTS RESULT OUT OF REFERENCE UNITS RANGE LAB GFRAA(LOINC ml/min/1.73 ) sqm GFR 91 Swiss Result Comment: GFR Population mean for , Non- Americans Ages 20-29 = 116 mL/min/1.73 sq.m. Ages 30-39 = 107 mL/min/1.73 sq.m. Ages 40-49 = 99 mL/min/1.73 sq.m. Ages 50-59 = 93 mL/min/1.73 sq.m. Ages 60-69 = 85 mL/min/1.73 sq.m. Ages 70+ = 75 mL/min/1.73 sq.m. Chronic Kidney Disease: Less than 60 mL/min/1.73 square meters End Stage Renal Disease: Less than 15 mL/min/1.73 square meters LAB GFRNO(LOINC) ml/min/1.73sqm GFR Non- >60 Result Comment: GFR Population mean for , Non- Americans Ages 20-29 = 116 mL/min/1.73 sq.m. Ages 30-39 = 107 mL/min/1.73 sq.m. Ages 40-49 = 99 mL/min/1.73 sq.m. Ages 50-59 = 93 mL/min/1.73 sq.m. Ages 60-69 = 85 mL/min/1.73 sq.m. Ages 70+ = 75 mL/min/1.73 sq.m. Chronic Kidney Disease: Less than 60 mL/min/1.73 square meters End Stage Renal Disease: Less than 15 mL/min/1.73 square meters Performed By: #### CBC, ADIFF, ANEU, GFR, LIP, CMP #### [address] [address] LIP Collected: 06/29/2017 Status: F Source: [facility] 6:59 PM [facility] REPOSITORY TYPE CODE TESTS RESULT OUT OF REFERENCE UNITS RANGE LAB LIP(LOINC) 8-78 IU/L Lipase Level 70 Performed By: #### CBC, ADIFF, ANEU, GFR, LIP, CMP #### [address] [address] CMP Collected: 06/29/2017 Status: F Source: [facility] 6:59 PM [facility] REPOSITORY TYPE CODE TESTS RESULT OUT OF REFERENCE UNITS RANGE LAB 1547-9 80-115 mg/dL GLUCOSE High 149 LAB NA(LOINC) 136-146 mEq/L Sodium Level 139 LAB K(LOINC) 3.5-5.1 mEq/L Potassium Level 4.4 LAB CL(LOINC) 98-107 mEq/L Chloride 105 LAB CO2(LOINC) 23-31 mEq/L CO2 28 LAB EBAL(LOINC mEq/L ) Electrolyte Balance 6.0 LAB BUN(LOINC) 7.0-18.0 mg/dL BUN 11.3 LAB CRE(LOINC) 0.6-1.2 mg/dL Creatinine Lvl (s) 0.8 LAB BC(LOINC) 7-27 ratio BUN/Creatinine 14 Ratio LAB CA(LOINC) 8.4-10.2 mg/dL Calcium Lvl 9.6 LAB PROT(LOINC 6.0-8.3 G/dL ) Total Protein 6.8 LAB ALB(LOINC) 3.4-4.8 G/dL Albumin Level 4.2 LAB GLB(LOINC) G/dL Globulin 2.6 LAB AG(LOINC) 1.1-2.5 ratio A/G Ratio 1.6 LAB BILT(LOINC 0.2-1.0 mg/dL ) Bili Total 0.5 LAB AP(LOINC) 40-135 IU/L Alk Phos 68 LAB AST(LOINC) 10-40 IU/L AST/SGOT 19 LAB ALT(LOINC) 10-35 IU/L ALT/SGPT 27 Performed By: #### CBC, ADIFF, ANEU, GFR, LIP, CMP #### [address] [place], [place] [address] UA Collected: 06/29/2017 Status: F Source: [facility] 6:48 PM [facility] REPOSITORY TYPE CODE TESTS RESULT OUT OF RANGE REFERENCE UNITS LAB SPCUA(PAT NC) UA Specimen Type Clean Catch LAB CLRUA(PAT NC) UA Color YELLOW LAB APPUA(PAT NC) UA Appear CLEAR LAB SGUA(LOIN C) UA Spec Grav 1.020 LAB GLUA(LOIN Negative mg/dL C) UA Glucose Abnormal >=1000 LAB BILUA(PAT NC) UA Bili NEGATIVE LAB KETUA(PAT mg/dL NC) UA Ketones NEGATIVE LAB BLDUA(PAT NC) UA Blood NEGATIVE LAB PHUA(LOIN C) UA pH 5.5 LAB PROUA(PAT mg/dL NC) UA Protein NEGATIVE LAB UROUA(PAT E.U./dL NC) UA Urobilinogen 0.2 LAB NITUA(PAT NC) UA Nitrite NEGATIVE LAB LEUUA(PAT NC) UA Leuk Est NEGATIVE Performed By: #### UA, UAMICAO #### [address] [place], [place] [address] .URINALYSIS MICROSCOPIC Collected: 06/29/2017 Status: F Source: [facility] ([facility]) 6:48 PM [facility] REPOSITORY TYPE CODE TESTS RESULT OUT OF RANGE REFERENCE UNITS LAB WBCUA(LOIN None Seen /hpf C) UA WBC None Seen LAB RBCUA(LOIN None Seen /hpf C) UA RBC None Seen LAB EPIUA(LOIN None Seen /hpf C) UA Squam Abnormal Epithelial 0-5 Performed By: #### UA, UAMICAO #### [address] [place], [place] [address] RESP VIR PNL BY Collected: 06/22/2017 Status: F Source: [facility] PCR 1:14 PM [facility] REPOSITORY TYPE CODE TESTS RESULT OUT OF RANGE REFERENCE UNITS LAB RVPSRC(LO INC) Resp Viral Panl Srce [employer]OR[employer] MARKETER LAB FLUARV(LO Negative INC) Influenza A Virus NEGAT LAB FLUAH1(LO Negative INC) Influenza A H1 Virus Abnormal NOTI LAB FLUAH3(LO Negative INC) Influenza A H3 Virus Abnormal NOTI LAB Q4P097(LO Negative INC) Influenza A H1N1 09 NEGAT LAB FLUBRV(LO Negative INC) Influenza B Virus NEGAT LAB RSVA(LOIN Negative C) Resp Syncytial Vir A NEGAT LAB RSVB(LOIN Negative C) Resp Syncytial Vir B NEGAT LAB PIV1(LOIN Negative C) Parainfluenza 1 NEGAT LAB PIV2(LOIN Negative C) Parainfluenza 2 NEGAT LAB PIV3(LOIN Negative C) Parainfluenza 3 NEGAT LAB HMPV(LOIN Negative C) H Metapneumovirus NEGAT LAB HRV(LOINC Negative ) Rhinovirus Abnormal Positive LAB ADVBE(PAT Negative NC) Adenovirus B/E NEGAT LAB ADVC(LOIN Negative C) Adenovirus C NEGAT LAB RVCOM(PAT NC) RV Panel Comment NOTI Performed By: #### RVPPCR #### [facility] [address] [place] [address] RESP VIR PNL BY Collected: 05/26/2017 Status: F Source: [facility] PCR 3:13 PM [facility] REPOSITORY TYPE CODE TESTS RESULT OUT OF REFERENCE UNITS RANGE LAB RVPSRC Resp Viral Panl Srce Nasal LAB FLUARV Negative Influenza A Virus Negative LAB Q0W905 Negative Influenza A H1N1 09 Negative LAB FLUBRV Negative Influenza B Virus Negative LAB RSVA Negative Resp Syncytial Vir A Negative LAB RSVB Negative Resp Syncytial Vir B Negative LAB PIV1 Negative Parainfluenza 1 Negative LAB PIV2 Negative Parainfluenza 2 Negative LAB PIV3 Negative Parainfluenza 3 Negative LAB HMPV Negative H Metapneumovirus Negative LAB HRV Negative Rhinovirus Negative LAB ADVBE Negative Adenovirus B/E Negative LAB ADVC Negative Adenovirus C Negative Performed By: #### RVPPCR #### [facility] [address] [address] PROGRESS Observed: 05/24/2017 Status: COMPLETED Source: [place] 2:05 PM [facility] REPOSITORY HNO ID: [id number] Author: Lauren Best Ct Service: (none) Author Type: (none) Type: Progress Notes Filed: 05/24/2017 2:05 PM Note Text: Radiology Service Progress Note PATIENT NAME: Yenny Ahumada DATE OF SERVICE: May 24, 2017 TIME: 2:05 PM PATIENT IDENTITY VERIFICATION COMPLETED USING TWO (2) METHODS: Patient confirmed name verbally and Date of . PATIENT GENDER DATA: Female. status: : No status: NO. PATIENT RELEVANT IMPLANT DATA REVIEWED: Not Applicable RADIOLOGY DEPARTMENT: CT; Exam(s) Completed: Brain PERIPHERAL IV DATA: Not applicable SIGNED BY: Lauren Best Ct May 24, 2017 2:[address] BRAIN WO IVCON Observed: 05/24/2017 Status: F Source: [place] 1:49 PM [facility] REPOSITORY * * *Final Report* * * DATE OF EXAM: May 24 2017 1:49PM [facility] 0504 - CT BRAIN WO IVCON / PROCEDURE REASON: headache-STAT * * * * Physician Interpretation * * * * EXAMINATION: CT BRAIN WO IVCON HISTORY: Headaches for 3 weeks. TECHNIQUE: Serial axial images without IV were obtained from the vertex to the foramen magnum. MQ: CTBWO_3 CT Dose-Length Product (DLP): 857 mGy*cm CT Dose Reduction Employed: No dose reduction techniques were required COMPARISON: None. RESULT: Post-operative change: Suspect bilateral lens replacement. Acute change: No evidence of an acute infarct or other acute parenchymal process. Hemorrhage: No evidence of acute intracranial hemorrhage. Mass Lesion / Mass Effect: There is no evidence of an intracranial mass or extraaxial fluid collection. No significant mass effect. Chronic change: None apparent. Parenchyma: There is no significant volume loss. The brain parenchyma is otherwise within normal limits for age. Ventricles: The ventricles are within normal limits of size and configuration for age. Paranasal sinuses and skull base: Scant atherosclerotic calcifications in the carotid siphons. The visualized paranasal sinuses and mastoid air cells are grossly clear. The skull base and imaged soft tissues are unremarkable. IMPRESSION: No evidence of an acute intracranial process or intracranial mass effect. Professional Application Designer: RETA Transcribe Date/Time: May 24 2017 2:30P Dictated by : PRINCE DOTSON MD This examination was interpreted and the report reviewed and electronically signed by: PRINCE DOTSON MD on May 24 2017 2:34PM EST [id number] ALLERGIES ALLERGIES DATE TYPE / CODE NAME / CODE REACTION SEVERITY SOURCE 10/31/2016 Drug diphenhydramine/F00 Other Unknown [place] Allergy/434 8791200(RXNORM) [facility] 650365([facility] ED CT) Repository 04/01/2016 DRUG/[id number] BENADRYL SWELLING [facility] 003(SNOMED DECONGESTANT [facility] CT) Repository ENCOUNTERS ENCOUNTERS ADMIT/DISCHARGE ACCOUNT NUMBER ADMITTING ENCOUNTER LOCATION SOURCE CLASS 04/25/2018 [id number] Ambulatory [facility] ding:POLAB3 Repository 02/26/2018/02/27/20 [id number] Emergency BBuilding:ER [place] [facility] Repository 02/15/2018/02/16/20 [id number] Emergency BBuilding:ER [place] [facility] Repository 11/13/2017/11/14/19 [id number] Emergency BBuilding:ER [place] [facility] Repository 11/09/2017/11/10/19 [id number] Ambulatory [address] Repository 10/29/2017/10/30/19 [id number] Emergency BBuilding:ER [place] [facility] Repository 10/28/2017/10/29/19 [id number] Emergency BBuilding:ER [place] [facility] Repository 10/04/2017/10/05/19 [id number] Ambulatory [address] Repository 09/23/2017/09/24/19 [id number] Ambulatory [address] ding:[facility] Repository 09/23/2017 [id number] [facility] 09/22/2017/09/23/[id number] ding:RAD [facility] Repository 09/14/2017/09/15/19 [id number] Ambulatory [address] Repository 09/14/2017/09/15/19 [id number] Ambulatory [address] Repository 08/18/2017/08/19/19 [id number] Ambulatory [address] ding:RAD [facility] Repository 07/12/2017 [id number] Ambulatory ABuilding:WD [facility] Repository 07/07/2017/07/08/19 [id number] Emergency ABuilding:ER [address] Repository 06/29/2017/06/30/19 [id number] Emergency BBuilding:ER [address] Repository 06/06/2017/06/07/19 [id number] Ambulatory [address] ding:[facility] Repository 05/29/2017/05/29/19 [id number] Emergency BBuilding:ER [address] Repository 05/24/2017/06/21/19 [id number] Ambulatory [address] Repository 05/06/2017/05/06/19 [id number] Emergency BBuilding:ER [address] Repository PAYERS PAYERS ENCOUNTER GUARANTOR PAYER SUBSCRIBER SOURCE 04/25/2018 YENNY Baker [id number] Insurance:[facility] HOSTETLERDOB: [facility] BHUPINDER MAHARAJ MEDICARE SENIOR [id number] [address] [facility] Number: Repository [id number]: (577) [id number] () Date:[id number] [id number] [place] [address]OE: 04/25/2018 Secondary NOT GIVENUNK [place] Insurance:SELF PAY [facility] Number: Effective Repository Date:2018-04-25 02/26/2018 [place]ENNY L [facility] [place]OSTETLERDOB: Insurance:VICTORIAA DARÍO HOSTETLERDOB: [facility] CHOICE MEDICAREPolicy [id number] Repository [address] Number: [address], [place] [id number], [place] [address]~[email or web address]@Y Date:2018-02-26Tel: (330) GEORGETTEel: [id number] [phone] Name:[address] (HP)Tel: (000) (HP) [id number], [place] [address] (WP) [phone]: 02/15/2018 [facility] HOSTETLERDOB: Insurance:[employer] HOSTETLERDOB: [facility] CHOICE MEDICAREPolicy [id number] Repository [address] Number: [address], [place] [id number] [address] [address]~[email or web address]@Y Date:2018-02-15Tel: (330) GEORGETTEel: [phone] [phone] ( Name:[address] (HP)Tel: (000) (HP) [address]Hkznmmbvj, [place] [address] (WP) [phone]: 11/13/2017 [facility] HOSTETLERDOB: Insurance:[employer] HOSTETLERDOB: [facility] CHOICE MEDICAREPolicy [id number] Repository [address] Number: [address] [place], [place] [id number] [address] [place] [address]~[email or web address]@Y Date:2017-11-13Tel: (330) EDERGrantCOMTel: [phone] [phone] Name:[address] (HP)Tel: (000) (HP) [address]Bmvqmrhhi, [place] 000[address] (WP) [phone]: 10/29/2017 [facility] HOSTETLERDOB: Insurance:[employer]MANA [employer] HOSTETLERDOB: [facility] CHOICE MEDICAREPolicy [id number] Repository [address] Number: [address], [place] [id number] [address], [place] [address]~SMHSTTLR@Y Date:2017-10-29Tel: (330) COMTel: [phone] [phone] Name:[address] (HP)Tel: (000) (HP) [address]Cjosnrsyg, [place] [address] (WP) [phone]: 10/28/2017 YENNY Mcmahon [facility] YENNY [facility] HOSTETLERDOB: Insurance:HUMANA [employer] HOSTETLERDOB: [facility] CHOICE MEDICAREPolicy [id number] Repository [address] Number: [address], [place] [id number] [address], [place] [address]~[email or web address]@Y Date:2017-10-28Tel: (330) EDERGrantCOMTel: [phone] [phone] ( Name:[address] (HP)Tel: (000) (HP) [address]I[place]jn, [place] [address] (WP) [phone]: [facility] HOSTET[facility]: Insurance:HUMANA [employer] HOSTETLERDOB: [facility] CHOICE MEDICAREPolicy [id number] Repository [address] Number: [address], [place] [id number] [address], [place] [address]~SMHSTTLR@Y Date:2017-09-23Tel: (330) EDER.COMTel: [id number] [phone] Name:NPO Box (HP)Tel: (000) (HP) [address] [place] [address] 000-0000 (WP) [phone]: 09/23/2017 [facility] HOSTETLERDOB: Insurance:HUMANA GOLD HOSTETLERDOB: [facility] MED[facility]ARE[facility] [id number] Repository [address] Number: [address] [facility] [place] [id number] [address] [place] [address]~SMHSTTLR@Y Date:2017-09-23Tel: (330) BERTHABRANDYGrantCOMTel: [id number] [phone] Name:NPO Box (HP)Tel: (000) (HP) 90246F[address]ub[address] [place] [address] 000-0000 (WP) [phone]: 09/22/2017 [facility] HOSTETLERDOB: Insurance:HUMANA GOLD HOSTETLERDOB: [facility] CHOICE MEDICAREPolicy [id number] Repository [address] Number: [address] [place], [place] [id number] [address]~[facility] CENTERTTLR@Y Date:2017-09-1961185Qmx: (330) BERTHABRANDYGrantCOMTel: [phone] [phone] Name:NPO Box (HP)Tel: (000) (HP) [address]67Esfyy[address] [place] [address] 000-0000 (WP) [phone]: 08/18/2017 [facility] HOSTETLERDOB: Insurance:HUMANA GOLD HOSTETLERDOB: [facility] CHOICE MED[facility]AREPol[facility] [id number] Repository [address] Number: [address] [place], [place] [id number] [address] [place] [address]~SMHSTTLR@Y Date:2017-08-16Tel: (330) GEORGETTEel: [id number] [phone] Name:NPO Box (HP)Tel: (000) (HP) [address]Iltrfwcbc, [place] 000-0000 (WP) [phone]: 07/12/2017 [facility] HOSTETLERDOB: Insurance:[employer] HOSTETLERDOB: [facility] CHOICE MEDICAREPolicy [id number] Repository [address] Number: [address], [place] [id number], [place] [address]~HSTTLR@Y Date:2017-07-07Tel: (330) GEORGETTEel: [id number] [phone] ( Name:NPO Box (HP)Tel: (000) (HP) [address]Fdxwilkja, [place] 000-0000 (WP) [phone]: 07/07/2017 [facility] HOSTETLERDOB: Insurance:Trend[employer]ol HOSTETLERDOB: [facility] CHOICE MEDICAREPolicy [id number] Repository [address] Number: [address], [place] [id number] [address], [place] [address]~SMHSTTLR@Y Date:2017-07-07Tel: (330) BERTHABRANDYSOLel: [id number] [phone] ( Name:NPO Box (HP)Tel: (000) (HP) [address]Zbqburqfm, [place] 000-0000 (WP) [phone]: 06/29/2017 [facility] HOSTETLERDOB: Insurance:HUMANA [employer] HOSTETLERDOB: [facility] CHOICE MEDICAREPolicy [id number] Repository [address] Number: [address], [place] [id number], [place] [address]~SMHSTTLR@Y Date:2017-06-29Tel: (330) COMTel: [id number] [phone] Name:NPO Box (HP)Tel: (000) (HP) [address]372G[address] [place] [address] 000-0000 (WP) [phone]: 06/06/2017 YENNY [facility] YENNY [facility] HOSTETLERDOB: Insurance:HUMANA [employer] HOSTETLERDOB: [facility] CHOICE MEDICAREPolicy [id number] Repository [address] Number: [address], [place] [id number] [address], [place] [address]~SMHSTTLR@Y Date:2017-06-06Tel: (330) BERTHACOMTel: [phone] [phone] ( Name:NPO Box (HP)Tel: (000) (HP) [address]Lnyranxvi, [place] 000-0000 (WP) [phone]: 05/29/2017 [facility]: Insurance:HUMANA [employer] HOSTETLERDOB: [facility] CHOICE MEDICAREPolicy [id number] Repository [address] Number: [address], [place] [id number], [place] [address]~SMHSTTLR@Y Date:2017-05-29Tel: (330) EDER.COMTel: [phone] [phone] Name:NPO Box (HP)Tel: 000) (HP) [address]Remvy[place]aq, [place] 000-0000 (WP) [phone]: 05/06/2017 YENNY Mcma[facility] YENNY Mcmahon [facility] HOSTETLERDOB: Insurance:[employer] HOSTETLERDOB: [facility] CHOICE MEDICAREPolicy [id number] Repository [address]: [address] [place] [address] [id number] [address]~SMHSTTLR@Y Date:2017-05-06Tel: (562) EDER.COMTel: [id number] [phone] Name:NPO Box (HP)Tel: 000) (HP) [address], [place] 000-[address] (WP) [phone]:
== END ==
PROVIDERS: Family Provider Family Medicine Geriatric Medicine; PCP Family Medicine Geriatric Medicine; Visit Provider Family Medicine Geriatric Medicine
DX: I10 Essential (primary) hypertension (principal); E55.9 Vitamin D deficiency, unspecified
CPT/HCPCS: 36415; 80053; 82306; 84443; 85025

== ENCOUNTER 2018-05-01 17:11 | Emergency (ER) | payer MEDICARE, SELFPAY ==
[2018-05-01 17:12] VITALS: BP 150/81; RESP 16; TEMP 36.1; O2SAT 95; BMI 25.0
--- NOTE | 2018-05-01 17:25 | EKG12_ITS ---
Test Reason : CP Blood Pressure : / mmHG Vent. Rate : 086 BPM Atrial Rate : 086 BPM P-R Int : 128 ms QRS Dur : 070 ms QT Int : 380 ms P-R-T Axes : 031 -27 055 degrees QTc Int : 454 ms Normal sinus rhythm Minimal voltage criteria for LVH, may be normal variant Poor R wave progression Borderline ECG Confirmed by ZION KLEIN, MAICOL ([id number]), visual effects editor MERVIN MENDEZ ([id number]) on 05/04/2018 8:15:44 AM Referred By: KATHLEEN Confirmed By:MAICOL DONOVAN MD
--- NOTE | 2018-05-01 17:37 | RAD_ITS ---
STUDY: X-RAY CHEST REASON FOR EXAM: Female, 68 years old. Chest pain. TECHNIQUE: Portable chest. COMPARISON: None. FINDINGS: The lungs are clear and expanded. There is no demonstrated pleural abnormality. Normal size heart. Normal mediastinum and coco. Normal visualized pulmonary arteries. Normal visualized aortic arch and descending thoracic aorta. Normal visualized thoracic spine. Normal visualized ribs, clavicles, and shoulders. There is no demonstrated abnormality of the visualized soft tissue structures of the upper abdomen. RAD/Chest 1 View (Portable) IMPRESSION: Normal x-ray examination of the chest. Electronically Signed: Maria Luz Decker MD at 20:38 EST Tel , Service support ,
[2018-05-01 17:47] VITALS: PULSE 82; RESP 14; O2SAT 97
[2018-05-01 18:11] LABS: Absolute Lymphocyte Count 2.47 X10^3/ul (0.83-4.51); Absolute Neutrophil Count 4.2 X10^3/uL (2.0-7.7); Basophil# 0.04 X10^3/uL; Basophil% 0.5 % (0-1); Eosinophil# 0.05 X10^3/uL; Eosinophils% 0.7 % (0-5); Hematocrit 43.8 % (37-47); Hemoglobin 15.1 g/dl (12.0-15.0); Lymphocyte # 2.47 X10^3/ul (4.0); Lymphocyte % 32.8 % (19-41); Mean Corp Hgb Conc 34.5 g/gl (32-36); Mean Corpuscular Hgb 32.1 pg (27.0-32.0); Mean Platelet Vol. 9.9 fl (6.2-12.0); Monocyte# 0.78 X10^3/uL; Monocyte% 10.4 % (0-10); Neutrophil # 4.17 X10^3/uL (2.7-7.7); Neutrophil % 55.3 % (47-70); POSITIVE COUNT NO; POSITIVE DIFFERENTIAL NO; POSITIVE MORPHOLOGY NO; Platelet Count 245 K/mm3 (150-450); RBC Distribution Width CV 12.8 % (11.6-14.6); RBC Distribution Width SD 42.6 fl (35.1-43.9); Red Blood Count 4.71 M/mm3 (4.2-5.4); White Blood Count 7.5 K/mm3 (4.4-11.0)
[2018-05-01 18:42] LABS: Anion Gap 8 (5-15); BUN 13 mg/dL (7-18); BUN/Creat Ratio 15.7 RATIO (10-20); Calcium,Total 8.5 mg/dL (8.5-10.1); Chloride 106 mmol/L (98-107); Creatinine, Serum 0.83 mg/dL (0.55-1.02); EST Glomerular Filtration Rate 73 mL/min (>60); Est Glom Filt Rate - Afr Amer 88 mL/min (>60); Estimated Creatinine Clearance 50.59 ml/min; Glucose 327 mg/dL (74-106); Sodium Level 138 mmol/L (136-145)
[2018-05-01 19:12] VITALS: BP 171/70; PULSE 78; RESP 18; O2SAT 95
[2018-05-01] MEDS: Aspirin 81 MG TAB.CHEW 324 MG PO (19:16)
[2018-05-01] MEDS: Morphine 4 MG/ML Syringe IV (19:16)
[2018-05-01] MEDS: 0.9% Normal Saline 1,000 ML 150 ML IV (19:16)
--- NOTE | 2018-05-01 19:36 | ED.DCSUM_ITS ---
- ER Visit Summary Date of Service: 05/01/18 Chief Complaint: Chest pain History of Present Illness: The patient is a [address] Carlson. She reports that she has chest pain that began 13 hours ago. She states it is a continuous sharp pain. Is 10 out of 10 in severity. Is worsened by nothing including exertion, movement, breathing, or coughing. Is relieved by nothing. She does report that she had associated nausea, diaphoresis, shortness of breath. She denies any chest pain or change in dyspnea exertion in the past month. No fever or cough. Physical Examination: Vitals: Stable. Afebrile. General: Well-nourished and well-developed. Head: Normocephalic atraumatic. Neck: Supple, no lymphadenopathy. No JVD. Nontender. Cardiovascular: Regular rate and rhythm. No murmurs. Respiratory: No respiratory distress. Clear to auscultation bilaterally. Moderate tenderness palpation of the costochondral margin bilaterally it does reproduce her pain. Abdominal: Soft, nontender, nondistended, normal bowel sounds. No guarding, rebound, or peritoneal signs. Back: Nontender. Extremities: Nontender, no edema. Skin: Normal color, no rash. Neurologic: Alert and oriented ?3. Cranial nerves II through XII are intact. Normal strength and sensation. Psych: Normal affect. Test Results: EKG is sinus at 86 and unchanged from 2017. Troponin is negative despite greater than 12 hours of constant pain. Chem-7 is more for glucose 327. CBC is more for hemoglobin of 15.1. Chest x-ray shows chronic changes. Emergency Department Course and Treatment: Patient was initially treated with aspirin p.o. she was given a dose of morphine IV. She is resting comfortably. Treatment Plan: At this time the patient's pain is reproducible with palpation. I do not think that this is cardiac in etiology. She will be discharged with prescription for Ferguson and instructed to follow-up with her primary care physician 1-2 days if not improving. Return to the emergency department for any worsening symptoms. Disposition: To home in improved and stable condition. Impression: 1. Atypical chest pain. 2. KARLI score of 2. This note was generated with [employer] software. It may contain incorrect words, spelling, and punctuation that were not noted in review of the chart prior to signing ED Disposition - Plan for ED Patient: Disposition: Home or Assisted Living Chief Complaint: Chest Pain Instructions: ED Chest Pain Atypical Unkn Cause Prescriptions: Hydrocodone Bitart/Apap 5-325 [Ferguson 5MG-325MG] 1 tablet PO Q4H PRN PRN 2 Days #10 tablet PRN Reason: Pain Referrals: Alfonso Carlson Chi, MD [Primary Care Provider] - 1-2 Days if not improving
[2018-05-01 19:37] VITALS: BP 165/80; PULSE 75; RESP 14; O2SAT 97
== END 2018-05-01 19:44 | disposition home or self-care (01) ==
LOC: ED 17:56
PROVIDERS: Emergency Provider Emergency Medicine; Family Provider Family Medicine Geriatric Medicine; PCP Family Medicine Geriatric Medicine
DX: R07.89 Other chest pain (principal)
CPT/HCPCS: 71045; 80048; 84484; 85025; 93005; 96374; 99285; J7030; A4216

== ENCOUNTER 2018-05-10 20:27 | Emergency (ER) | payer MEDICARE, SELFPAY ==
[2018-05-10 20:28] VITALS: BP 167/85; PULSE 93; RESP 18; TEMP 37.1; O2SAT 97; BMI 26.4
[2018-05-10 20:36] VITALS: BP 132/63; PULSE 91; RESP 16; O2SAT 96
--- NOTE | 2018-05-10 20:51 | EKG12_ITS ---
Test Reason : CHEST PAIN Blood Pressure : / mmHG Vent. Rate : 088 BPM Atrial Rate : 088 BPM P-R Int : 120 ms QRS Dur : 072 ms QT Int : 358 ms P-R-T Axes : 009 -32 036 degrees QTc Int : 433 ms Normal sinus rhythm Left axis deviation Abnormal ECG Confirmed by BETZY KLEIN, CATHRYN ([id number]), editor greeting card MERVIN MENDEZ ([id number]) on 05/15/2018 10:11:22 AM Referred By: KATHLEEN CASTILLO Confirmed By:CATHRYN BO MD
--- NOTE | 2018-05-10 20:55 | RAD_ITS ---
STUDY: X-RAY CHEST REASON FOR EXAM: Female, 68 years old. Chest pain TECHNIQUE: Single frontal view of the chest. COMPARISON: May 01, 2018 FINDINGS: The lungs are clear and expanded. There is no demonstrated pleural abnormality. Normal size heart. Normal mediastinum and coco. Normal visualized pulmonary arteries. Normal visualized aortic arch and descending thoracic aorta. Normal visualized thoracic spine. Normal visualized ribs, clavicles, and shoulders. There is no demonstrated abnormality of the visualized soft tissue structures of the upper abdomen. RAD/Chest 1 View (Portable) IMPRESSION: No acute cardiopulmonary process. Electronically Signed: More Fuentes MD at 21:27 EST Tel , Service support ,
[2018-05-10] MEDS: Ondansetron 4 MG/2 ML Vial IV (21:00)
[2018-05-10] MEDS: Mag Hydrox/Al Hydrox/Simeth 30 ML UDC PO (21:00)
[2018-05-10 21:03] LABS: Absolute Lymphocyte Count 2.73 X10^3/ul (0.83-4.51); Absolute Neutrophil Count 6.2 X10^3/uL (2.0-7.7); Basophil# 0.03 X10^3/uL; Basophil% 0.3 % (0-1); Eosinophil# 0.07 X10^3/uL; Eosinophils% 0.7 % (0-5); Hematocrit 44.1 % (37-47); Hemoglobin 15.1 g/dl (12.0-15.0); Lymphocyte # 2.73 X10^3/ul (4.0); Lymphocyte % 27.5 % (19-41); Mean Corp Hgb Conc 34.2 g/gl (32-36); Mean Corpuscular Hgb 31.9 pg (27.0-32.0); Mean Corpuscular Volume 93.2 fL (81-99); Mean Platelet Vol. 10.2 fl (6.2-12.0); Monocyte# 0.83 X10^3/uL; Monocyte% 8.4 % (0-10); Neutrophil # 6.22 X10^3/uL (2.7-7.7); Neutrophil % 62.8 % (47-70); Platelet Count 269 K/mm3 (150-450); RBC Distribution Width CV 12.8 % (11.6-14.6); RBC Distribution Width SD 43.6 fl (35.1-43.9); Red Blood Count 4.73 M/mm3 (4.2-5.4); White Blood Count 9.9 K/mm3 (4.4-11.0)
[2018-05-10 21:04] LABS: POSITIVE COUNT NO; POSITIVE DIFFERENTIAL NO; POSITIVE MORPHOLOGY NO
[2018-05-10 21:17] LABS: Anion Gap 9 (5-15); BUN 23 mg/dL (7-18); BUN/Creat Ratio 24.8 RATIO (10-20); Chloride 106 mmol/L (98-107); Creatinine, Serum 0.93 mg/dL (0.55-1.02); EST Glomerular Filtration Rate 64 mL/min (>60); Est Glom Filt Rate - Afr Amer 77 mL/min (>60); Estimated Creatinine Clearance 45.15 ml/min; Glucose 164 mg/dL (74-106); Potassium 3.9 mmol/L (3.5-5.1); Sodium Level 138 mmol/L (136-145)
[2018-05-10] MEDS: Famotidine 20 MG Tablet 40 MG PO (21:46)
[2018-05-10] MEDS: Ketorolac 30 MG/ML Syringe IV (21:46)
[2018-05-10 21:50] VITALS: BP 180/71; PULSE 79; RESP 14; O2SAT 94
--- NOTE | 2018-05-10 22:34 | ED.VISSUMM ---
- ER Visit Summary Date of Service: 05/10/18 Chief Complaint: Chest pain History of Present Illness: The patient is a 68 F who states this morning around 11 AM she developed a burning stabbing epigastric chest pain that radiated into her back. Tonight she went to [facility] got nauseous and vomited. She states that in the past she had been admitted to the hospital in [place] and after 5 days was diagnosed with reflux. She currently does not take any reflux medications Physical Examination: Afebrile vital signs are stable Gen: Well-nourished well-developed Head: Normocephalic atraumatic Eyes: Perrl EOMI ENT: TMs clear no rhinorrhea moist mucous membranes Neck: Supple no lymphadenopathy no JVD nontender CVS: Regular rate rhythm no murmurs normal S1-S2 Respiratory: No distress clear to auscultation bilaterally chest nontender Abdomen: Soft nontender nondistended normal bowel sounds no masses Back: Nontender Extremity: Nontender no edema Skin: Normal color no rash Neuro: alert orientated ?3 CN II-XII intact normal strength sensation reflexes gait cerebellar Psych: Normal affect normal mood Test Results: EKG showed a normal sinus rhythm. Troponin is negative (greater than 8-hour troponin. Chest x-ray is negative. Emergency Department Course and Treatment: Patient received Zofran and a GI cocktail. Her symptoms are mildly improved. She received Pepcid and Toradol and is more improved. I do not see evidence of ACS. Patient's KARLI score is 2. I will write for her to have Pepcid she is to follow-up with primary care. If she is not improving perhaps EGD or stress testing would be in order. Impression: 1. Chest pain 2. GERD This note was generated with [employer] dictation software she notes that has been constant. It may contain incorrect words, spelling, and punctuation that were not noted in review of the chart prior to signing ED Disposition - Plan for ED Patient: Disposition: Home or Assisted Living Instructions: ED GERD Prescriptions: Famotidine [Pepcid] 20 mg PO BID #28 tab Additional Instructions: Please follow-up with your primary care doctor
--- NOTE | 2018-05-10 22:40 | ED.DCSUM_ITS ---
- ER Visit Summary Date of Service: 05/10/18 Chief Complaint: Chest pain History of Present Illness: The patient is a 68 F who states this morning around 11 AM she developed a burning stabbing epigastric chest pain that radiated into her back. Tonight she went to [facility] got nauseous and vomited. She states that in the past she had been admitted to the hospital in [place] and after 5 days was diagnosed with reflux. She currently does not take any reflux medications Physical Examination: Afebrile vital signs are stable Gen: Well-nourished well-developed Head: Normocephalic atraumatic Eyes: Perrl EOMI ENT: TMs clear no rhinorrhea moist mucous membranes Neck: Supple no lymphadenopathy no JVD nontender CVS: Regular rate rhythm no murmurs normal S1-S2 Respiratory: No distress clear to auscultation bilaterally chest nontender Abdomen: Soft nontender nondistended normal bowel sounds no masses Back: Nontender Extremity: Nontender no edema Skin: Normal color no rash Neuro: alert orientated ?3 CN II-XII intact normal strength sensation reflexes gait cerebellar Psych: Normal affect normal mood Test Results: EKG showed a normal sinus rhythm. Troponin is negative (greater than 8-hour troponin. Chest x-ray is negative. Emergency Department Course and Treatment: Patient received Zofran and a GI cocktail. Her symptoms are mildly improved. She received Pepcid and Toradol and is more improved. I do not see evidence of ACS. Patient's KARLI score is 2. I will write for her to have Pepcid she is to follow-up with primary care. If she is not improving perhaps EGD or stress testing would be in order. Impression: 1. Chest pain 2. GERD This note was generated with [employer] dictation software she notes that has been constant. It may contain incorrect words, spelling, and punctuation that were not noted in review of the chart prior to signing ED Disposition - Plan for ED Patient: Disposition: Home or Assisted Living Instructions: ED GERD Prescriptions: Famotidine [Pepcid] 20 mg PO BID #28 tab Additional Instructions: Please follow-up with your primary care doctor
[2018-05-10 22:43] VITALS: BP 163/82; PULSE 80; RESP 18; O2SAT 96
== END 2018-05-10 22:49 | disposition home or self-care (01) ==
PROVIDERS: Emergency Provider Emergency Medicine; Family Provider Family Medicine Geriatric Medicine; PCP Family Medicine Geriatric Medicine
DX: R07.9 Chest pain, unspecified (principal); K21.9 Gastro-esophageal reflux disease without esophagitis; E11.9 Type 2 diabetes mellitus without complications; I10 Essential (primary) hypertension; E78.00 Pure hypercholesterolemia, unspecified; Z79.4 Long term (current) use of insulin; Z79.899 Other long term (current) drug therapy
CPT/HCPCS: 71045; 80048; 84484; 85025; 93005; 96374; 96375; 99284; A4216; J2405

== ENCOUNTER 2018-05-27 08:09 | Emergency (ER) | payer MEDICARE, SELFPAY ==
[2018-05-27 08:12] VITALS: BP 157/112; PULSE 76; RESP 16; TEMP 36.1; O2SAT 95; BMI 25.4
--- NOTE | 2018-05-27 08:27 | ED.VISSUMM ---
- ER Visit Summary Date of Service: 05/27/18 Chief Complaint: Knot on leg History of Present Illness: The patient is a 68 F who states that she woke this morning with a painful blue knot on her posterior mid right leg. She did not note any injury. She denies any other symptoms. She states that it was harder at home. She denies any other bleeding. She denies any problems with easy bruising. No history of varicose veins. Physical Examination: Afebrile vital signs stable On the posterior mid medial calf along a superficial vein is a bluish hematoma. It is approximately 1.5 cm round. There is no pulsatile mass. Distally patient is neurovascular intact. There are no breaks in the skin. Emergency Department Course and Treatment: Patient will be instructed on ice today followed by heat tomorrow. This is a superficial vein that appears to have ruptured. Either continuously or more likely from direct trauma during her sleep. Return if worsening or concerns. She was advised that this will most likely change colors and moved slightly down the leg as it resolves. Impression: 1. Hematoma of the right leg This note was generated with [employer] dictation software. It may contain incorrect words, spelling, and punctuation that were not noted in review of the chart prior to signing ED Disposition - Plan for ED Patient: Disposition: Home or Assisted Living Instructions: ED Hematoma Additional Instructions: Use ice 20-minute sessions at least 4 times today. Heat tomorrow.
== END 2018-05-27 08:59 | disposition home or self-care (01) ==
LOC: ED 08:42
PROVIDERS: Emergency Provider Emergency Medicine; Family Provider Family Medicine Geriatric Medicine; PCP Family Medicine Geriatric Medicine
DX: S80.11XA Contusion of right lower leg, initial encounter (principal); Z79.4 Long term (current) use of insulin; Z79.899 Other long term (current) drug therapy; X58.XXXA Exposure to other specified factors, initial encounter; Y93.84 Activity, sleeping; Y92.003 Bedroom of unspecified non-institutional (private) residence as the place of occurrence of the external cause; Y99.8 Other external cause status
CPT/HCPCS: 99283

== ENCOUNTER → 2018-06-09 14:55 | Outpatient (CLI) | payer MEDICARE, SELFPAY ==
[2018-05-27 08:12] VITALS: BMI 25.4
--- NOTE | 2018-06-09 14:57 | BI_ITS ---
MAMMOGRAPHY - BILATERAL SCREENING REASON FOR EXAM: Female, 68 years old. Routine annual screening examination. PERTINENT HISTORY: Non-contributory. TECHNIQUE: Digital bilateral breast krissy (3D mammographic acquisition) in the CC and MLO projections. 2-D mediolateral oblique (MLO) and craniocaudad (CC) views of both breasts were obtained. CAD: Full Field Digital Mammography with Computer Added Detection was performed. COMPARISON: No comparison mammograms available at this time. If any prior films become available, an addendum to this report can be generated. FINDINGS: Breast Composition: The breasts are heterogeneously dense, which may obscure small masses. There are no dominant masses or suspicious calcifications. No other significant abnormalities are identified. BI/SCREENING MAMM (CAD), BILAT IMPRESSION: Negative screening mammogram. Yearly followup mammogram recommended. (A) ASSESSMENT CATEGORY: BIRADS Category 1: Negative. A letter regarding these results will be sent to the patient by the facility within 30 days. Approximately 10% of breast cancers are not detected by mammography. A normal mammogram should not delay biopsy of a clinically suspicious abnormality. [id number] Electronically Signed: Al Thacker, at 14:54 EDT , Service support ,
== END ==
PROVIDERS: Family Provider Family Medicine Geriatric Medicine; PCP Family Medicine Geriatric Medicine; Referring Provider Family Medicine Geriatric Medicine; Visit Provider Family Medicine Geriatric Medicine
DX: Z12.31 Encounter for screening mammogram for malignant neoplasm of breast (principal)
CPT/HCPCS: 77062; 77063; 77067; G0279

== ENCOUNTER 2018-10-24 03:45 | Emergency (ER) | payer MEDICARE, SELFPAY ==
[2018-10-24 03:46] VITALS: BP 220/73; PULSE 74; RESP 17; TEMP 36.5; O2SAT 94; BMI 21.0
--- NOTE | 2018-10-24 04:14 | ED.VISSUMM ---
- ER Visit Summary Date of Service: 10/24/18 Chief Complaint: Back pain History of Present Illness: The patient is a 68 F who presents with back pain. It began yesterday afternoon. She initially just had aching lower back pain. She is been sitting at the computer. After getting up and going to bed her pain was worse and began to radiate around to the lateral thighs bilaterally. No numbness tingling or weakness. No urinary retention or fecal incontinence. No fevers. No abdominal pain. No history of prior similar symptoms. She has not tried any medications at home. Physical Examination: Blood pressure 220/73 vitals otherwise normal No distress Heart regular rate and rhythm Lungs are clear Abdomen soft nontender nondistended Normal strength and sensation of the lower extremities with hip flexion and extension, knee flexion extension, 5 out of 5 dorsiflexion, plantarflexion, extensor hallucis longus, brisk capillary refill, well-perfused, skin warm and dry Back nontender to palpation Test Results: Not indicated Emergency Department Course and Treatment: Presentation is most suggestive of lumbar radiculopathy. I do not feel x-rays would be beneficial at this time. We will treat supportively/symptomatically. She was given [place] and prednisone as well as prescriptions for the same and advised to follow-up with her primary care physician and was discharged home. Treatment Plan: [] Disposition: Discharge Impression: Lumbar radiculopathy This note was generated with [employer] dictation software. It may contain incorrect words, spelling, and punctuation that were not noted in review of the chart prior to signing ED Disposition - Plan for ED Patient: Referrals: Alfonso Carlson Chi, MD [Primary Care Provider] -
--- NOTE | 2018-10-24 04:16 | ED.DEP ---
ED Disposition - Plan for ED Patient: Instructions: BACK PAIN w/ SCIATICA Prescriptions: Prednisone [Deltasone] 60 mg PO DAILY #12 tab Prescription Printed Hydrocodone Bitart/Apap 5-325 [[place] 5MG-325MG] 1 tab PO Q6H PRN PRN 3 Days #10 tab PRN Reason: Pain Prescription Printed Referrals: Alfonso Carlson Chi, MD [Primary Care Provider] -
[2018-10-24] MEDS: HYDROcodone Bitartrate/Apap 5/325 Tablet PO (04:20)
[2018-10-24] MEDS: predniSONE 20 MG Tablet 60 MG PO (04:20)
[2018-10-24 05:02] VITALS: RESP 16
== END 2018-10-24 05:03 | disposition home or self-care (01) ==
PROVIDERS: Emergency Provider Emergency Medicine; Family Provider Family Medicine Geriatric Medicine; PCP Family Medicine Geriatric Medicine
DX: M54.16 Radiculopathy, lumbar region (principal); E11.9 Type 2 diabetes mellitus without complications; I10 Essential (primary) hypertension; E78.00 Pure hypercholesterolemia, unspecified; Z79.4 Long term (current) use of insulin; Z79.899 Other long term (current) drug therapy
CPT/HCPCS: 99283

== ENCOUNTER 2018-10-25 02:08 | Emergency (ER) | payer MEDICARE, SELFPAY ==
[2018-10-24 03:46] VITALS: BMI 21.0
[2018-10-25 02:09] VITALS: BP 195/83; PULSE 63; RESP 18; TEMP 36.5; O2SAT 98; BMI 23.3
[2018-10-25 02:12] VITALS: BP 176/103; PULSE 62; RESP 18; O2SAT 99
[2018-10-25] MEDS: Ondansetron 4 MG/2 ML Vial IV (02:30)
[2018-10-25] MEDS: Morphine 4 MG/ML Syringe IV (02:30)
[2018-10-25] MEDS: 0.9% Normal Saline 1,000 ML 150 ML IV (02:30)
[2018-10-25 02:38] LABS: Absolute Lymphocyte Count 2.01 X10^3/uL (0.83-4.51); Absolute Neutrophil Count 12.6 X10^3/uL (2.0-7.7); Basophil# 0.02 X10^3/uL; Basophil% 0.1 % (0-1); Hematocrit 44.2 % (37-47); Hemoglobin 15.8 g/dL (12.0-15.0); Lymphocyte # 2.01 X10^3/ul (4.0); Lymphocyte % 12.9 % (19-41); Mean Corp Hgb Conc 35.7 g/dL (32-36); Mean Corpuscular Volume 86.7 fL (81-99); Monocyte# 0.87 X10^3/uL; Monocyte% 5.6 % (0-10); NRBC Flagged by Analyzer 0 % (0-5); Neutrophil # 12.56 X10^3/uL (2.7-7.7); Neutrophil % 80.9 % (47-70); Platelet Count 346 K/mm3 (150-450); RBC Distribution Width CV 12.2 % (11.6-14.6); RBC Distribution Width SD 38.8 fl (35.1-43.9); White Blood Count 15.5 K/mm3 (4.4-11.0)
--- NOTE | 2018-10-25 02:53 | ED.RN ---
dr leo notified of glucose 535
[2018-10-25 02:54] LABS: Anion Gap 8 (5-15); BUN 25 mg/dL (7-18); Calcium,Total 10.2 mg/dL (8.5-10.1); Chloride 95 mmol/L (98-107); Creatinine, Serum 1.04 mg/dL (0.55-1.02); EST Glomerular Filtration Rate 56 mL/min (>60); Est Glom Filt Rate - Afr Amer 67 mL/min (>60); Estimated Creatinine Clearance 40.38 ml/min; Glucose 539 mg/dL (74-106); Sodium Level 131 mmol/L (136-145)
--- NOTE | 2018-10-25 03:05 | CT_ITS ---
STUDY: CT ABDOMEN AND PELVIS WITH CONTRAST REASON FOR EXAM: Female, 68 years old. BACK PAIN/ HIP PAIN, BILATERAL LEG PAIN X 4 DAYS, HX DIAB, HTN RADIATION DOSAGE (If Supplied By Facility): CTDIvol = ( 14.28 ) mGy, DLP = ( 479.86 ) mGycm TECHNIQUE: Transaxial images were obtained from the dome of the diaphragm to the symphysis pubis without oral contrast. 100ML IV Isovue 300 was administered. Sagittal and coronal images were reconstructed. Individualized dose optimization techniques were used for this CT. COMPARISON: None. FINDINGS: The visualized lung bases are unremarkable. The visualized portions of the heart are within normal limits. Normal liver. Normal gallbladder and extrahepatic biliary system. Normal spleen. Normal pancreas. Normal bilateral adrenal glands. Normal right kidney. Normal left kidney. Normal visualized stomach. Normal small intestine. Normal colon. The appendix is visualized and appears normal. Normal abdominal aorta. Normal inferior vena cava. Normal retroperitoneum. Normal urinary bladder. Normal abdominal wall. Normal osseous structures. CT/Abdomen/Pelvis W IV Cont ONLY IMPRESSION: Normal enhanced CT of the abdomen and pelvis. Electronically Signed: Jamaica Powers, at 5:21 EDT Tel , Service support ,
[2018-10-25] MEDS: Insulin Lispro 100 UNIT/ML INSULN.PEN 6 UNIT SC (03:33)
[2018-10-25] MEDS: HYDROmorphone 1 MG/ML Syringe IV (03:34)
--- NOTE | 2018-10-25 05:29 | ED.VISSUMM ---
- ER Visit Summary Date of Service: 10/25/18 Chief Complaint: [Back pain] History of Present Illness: The patient is a 68 F [resents to the emergency for back pain that started yesterday. Patient was seen in the emergency department yesterday for this and had a lumbar radiculopathy. Patient was discharged home with prednisone and [place] for pain. Patient states the pain medicine is not helping at all. Patient describes pain radiating down both legs to feet. She denies any weakness in extremities or numbness or tingling. She denies any change in bowel bladder function. She denies any abdominal pain. No fevers. She denies urinary symptoms. Patient has history of diabetes, hypertension, high cholesterol is a 10 out of 10.] Physical Examination: [HEENT-PERRLA, EOMI. Cranial nerves II through XII grossly intact. TMs clear. Mucous membranes moist. No adenopathy. Cardiovascular-regular rate and rhythm without murmur or ectopy Lungs-clear to auscultation, chest wall stable without crepitus or subcu emphysema Abdomen-normoactive bowel sounds, soft, nontender, no rebound or rigidity, no peritoneal signs. Back exam-patient has tenderness diffusely over the lower lumbar spine and lumbar paraspinal musculature. He has negative straight leg raises. Deep tendon refill +4 bilaterally, Achilles. Patient has normal 5 extension. Normal sensation to light touch. Extremities-intact ?4, normal range of motion, normal pulses, atraumatic] Test Results: [Significant change from elevated white count of 15.5, hemoglobin 50.8, hematocrit 44, placed 3.6. Chemistries unremarkable. Was elevated at 539. CT scan of the M pelvis with IV contrast showed nothing acute.] Emergency Department Course and Treatment: [Patient was medicated initially with morphine and Zofran 4 mg each and she had no relief with that. Patient then received 1 mg of Dilaudid and she had good pain relief with that.] Patient received insulin 6 units subcu for the elevated blood glucose I suspect is likely related to the prednisone. Treatment Plan: [Admit for pain control] Disposition: [Admit] Impression: [Intractable back pain Lumbar radiculopathy Hyperglycemia] This note was generated with [employer] dictation software. It may contain incorrect words, spelling, and punctuation that were not noted in review of the chart prior to signing ED Disposition - Plan for ED Patient: Referrals: Alfonso Carlson Chi, MD [Primary Care Provider] -
[2018-10-25 05:51] LABS: Bedside Glucose 334 mg/dL (70-110)
--- NOTE | 2018-10-25 05:55 | PN_ITS ---
Subjective: 68-year-old female with a history of high blood pressure and diabetes presents with bilateral low back pain and bilateral lower extremity pain. She states that the lower extremity pain is cramping in nature and started about a month ago and that the bilateral low back pain started about a week ago. She says that her low back hurts usually at night when she is going to bed and she stretches her legs out, she had seen her doctor in the past for her bilateral lower extremity pain and he gave her naproxen and explained to her that old age can lead to cramping and whenever she takes naproxen she feels much better. She was here in the ER yesterday for similar situation and was given the diagnosis of a lumbar radiculopathy and was started on prednisone and [place]. She comes in today saying that her [place] and prednisone are not helping and now her blood sugar is in the 500s and she has a white count of 15.5. She denies any fevers or chills at home and has no signs of an infection, she denies dysuria and frequency as well as abdominal pain. She does not have a cough or an upper respiratory infection either. She denies any incontinence of stool or urine, or any saddle anesthesia. No weakness in her lower extremities. Vitals/I&O's: Vital Signs Temp Pulse Resp BP Pulse Ox 97.7 F L 62 18 176/103 H 99 10/25/18 02:09 10/25/18 02:12 10/25/18 02:12 10/25/18 02:12 10/25/18 02:12 Oxygen Delivery Method Room Air Weight: 127 lb 10.362 oz Body Mass Index (BMI) 23.3 Finger Stick Blood Glucose 141 General: Alert, Oriented x3, Cooperative, No apparent distress HEENT: Atraumatic, PERRLA, EOMI, Normocephalic Oral: Moist Mucosa Neck: Supple, No JVD Lungs: Clear to auscultation, Normal air movement, No rhonchi, No wheeze, No rales Cardiovascular: Regular rate, Regular Rhythm, Normal S1, Normal S2, No murmurs Abdomen: Soft, Non Tender, Non-Distended, No Hepato-splenomegaly Extremities: No edema, Capillary Refill Less than 3 Seconds Skin: No rashes, No breakdown Musculoskeletal: No Tenderness to Palpation of Joints or Extremities, No Muscle Wasting, - - Mild tenderness to palpation of the paraspinal muscles on both sides of her low back, straight leg raise was negative and she has no hip pain. Neurological: Neuro grossly intact, Sensory exam intact to light touch and pain Psych/Mental Status: Normal Affect, Appropriate Laboratory Results 10/25/18 02:30: WBC 15.5 H, RBC 5.10, Hgb 15.8 H, Hct 44.2, MCV 86.7, MCH 31.0, MCHC 35.7, RDW Std Deviation 38.8, RDW Coeff of Melvina 12.2, Plt Count 346, MPV 10.0, Immature Gran % (Auto) 0.500, Neut % (Auto) 80.9 H, Lymph % (Auto) 12.9 L, [place]comb % (Auto) 5.6, Eos % (Auto) 0.0, Baso % (Auto) 0.1, Absolute Neuts (auto) 12.6 H, Absolute Lymphs (auto) 2.01, Absolute Nucleated RBC 0.00, Nucleated RBC % 0 10/25/18 02:30: Sodium 131 L, Potassium 4.0, Chloride 95 L, Carbon Dioxide 28.0, Anion Gap 8, BUN 25 H, Creatinine 1.04 H, Estim Creat Clear Calc 40.38, Est GFR (MDRD) Af Amer 67, Est GFR (MDRD) Non-Af 56 L, BUN/Creatinine Ratio 24.0 H, Glucose 539 H*, Calcium 10.2 H 10/25/18 05:48: POC Glucose 334 H Current Medications Sodium Chloride () 1,000 mls @ 150 mls/hr IV .Q6H40M [facility] Last Admin: 10/25/18 02:30 Dose: 150 mls/hr Documented by: Medical Necessity - Tobacco Use Smoking Status: Never smoker Assessment/Plan 1. Low back pain with bilateral lower extremity cramping pain -Her lower extremity cramping pain started about a month ago, and her low back pain started about a week ago without any signs of trauma. -She denies doing anything physically strenuous that because the pain a week ago -Leg pain has resolved with naproxen as an outpatient -CT of the abdomen and pelvis was negative today for any intra-abdominal pathology and nothing seen from a bony standpoint or from a disc space standpoint -She states that the prednisone and the [place] are not helping -I explained to her that we could bring her in for an MRI and that she would be considered an observational stay which would require her to pay a co-pay, she decided that she would prefer to go home and see her primary care physician as an outpatient. I explained to her that the safest option would be to be admission for further monitoring and to be evaluated by physical therapy, however she would prefer to go home. 2. Hyperglycemia/insulin-dependent diabetes -Her blood sugar when she presented was 539, likely secondary to the prednisone. She was given a dose of 6 units of NovoLog in the ER and her blood sugar corrected to 334 -I discussed with her that if she is to go home she needs to monitor her blood sugar and dose her insulin appropriately, while on the prednisone 3. Leukocytosis -She is afebrile without any signs of infection -This is likely secondary to the prednisone 4. Hyponatremia/elevated creatinine -Her sodium levels 131 is been low in the past though not this low -She was given IV fluids in the ER -She will need PCP follow-up with repeat labs -Her baseline creatinine is around 1 and she is currently 1.04 she did receive fluids in the ER 5. Hypertension -SBP initially was 195 and came down to 176, this is likely secondary to pain -She is on metoprolol as an outpatient and says that her blood pressure is usually very well controlled -Discussed that we can could bring her in for further monitoring however she would prefer to go home -Continue with her home blood pressure medications Code Visit Inpatient E&M: [id number] [facility] Hosp L3
--- NOTE | 2018-10-25 05:57 | ED.VISSUMM ---
- ER Visit Summary Date of Service: 10/25/18 Chief Complaint: [Addendum to my initial dictation] History of Present Illness: The patient is a 68 F [] Physical Examination: [] Test Results: [] Emergency Department Course and Treatment: [Patient was being seen by the hospitalist for admission and she decided that she did not want to be hospitalized at this time. I attempted to convince the patient to stay given that I am not clear as to the etiology of her severe back pain with radiation to both legs recommended further evaluation such as MRI to evaluate further. Patient understands I cannot rule out cord compression although clinically she does not have classic symptoms for cauda equina. Patient understands I cannot rule out a spinal cord tumor or compression from tumor or epidural hematoma. Patient understands my concerns and is requesting to be discharged home. Her and I both try to convince her otherwise but she is refusing admission. He understands she may return to the emergency department at any time.] Treatment Plan: [] Disposition: [Discharged home AGAINST MEDICAL ADVICE] Impression: [Lumbar radiculopathy Intractable pain Patient left AGAINST MEDICAL ADVICE] This note was generated with [employer] dictation software. It may contain incorrect words, spelling, and punctuation that were not noted in review of the chart prior to signing
--- NOTE | 2018-10-25 06:10 | ED.RN ---
PT WANTS TO LEAVE AMA. HOSPITALIST AND ED MD ARE AWARE. STATES SHE WANTS TO GO HOME, SHOWER AND GET SOME CLOTHES FROM HOME BEFORE BEING ADMITTED. STATES THAT SHE WILL RETURN IN JUST A LITTLE BIT. PT ADVISED THAT SHE WILL NEED TO HAVE ANOTHER ED VISIT W/A DIFFERENT PHYSICIAN WHEN SHE RETURNS. PT ADVISED OF RISKS BY BOTH MDS.
[2018-10-25 06:13] VITALS: BP 179/70; PULSE 63; O2SAT 94
== END 2018-10-25 06:13 | disposition left against medical advice (07) ==
LOC: ED 02:41
PROVIDERS: Family Medicine; Emergency Provider Emergency Medicine; Family Provider Family Medicine Geriatric Medicine; PCP Family Medicine Geriatric Medicine
DX: M54.16 Radiculopathy, lumbar region (principal); E11.65 Type 2 diabetes mellitus with hyperglycemia; I10 Essential (primary) hypertension; E78.00 Pure hypercholesterolemia, unspecified; Z79.4 Long term (current) use of insulin; Z79.899 Other long term (current) drug therapy
CPT/HCPCS: 74177; 80048; 82962; 85025; 96361; 96374; 96375; 99282; Q9967; A4216; J2405

== ENCOUNTER 2018-12-06 23:58 | Emergency (ER) | payer MEDICARE, SELFPAY ==
[2018-12-07] VITALS: BP 118/62; PULSE 73; RESP 18; TEMP 36; O2SAT 97; BMI 23.8
--- NOTE | 2018-12-07 01:50 | ED.DCSUM_ITS ---
History of Present Illness Chief Complaint: Back Narrative: This patient is a 68-year-old female who presents with back pain. She does have a history of prior similar symptoms. She complains of pain beginning at her tailbone and radiating around her right hip and lateral thigh all the way down to her ankle. She denies any numbness tingling or weakness. No history of fall trauma or injury. Her pain is been present for 4 days. She was seen in October a couple of times for lumbar radiculopathy. They discussed hospitalization which she refused. She does have an upcoming appointment to establish a new primary care physician next month. She is never had an MRI of her back. She denies any fevers urinary retention fecal incontinence abdominal pain prior back surgeries. Past Medical History - Allergies and Home Meds Allergies/Adverse Reactions: Allergies diphenhydramine [From Benadryl] Allergy (Verified 12/06/18 23:59) Other Primary Care Physician: NOT,DEFINED [NON-STAFF] - Past Medical History: - - Diabetes, hypertension, hyperlipidemia Smoking Status: Never smoker Review of Systems All systems negative except as indicated General: Denies: Fever Cardiovascular: Denies: Chest pain Respiratory: Denies: Dyspnea Gastrointestinal: Denies: Vomiting, Diarrhea Musculoskeletal: Reports: Back pain Skin: Denies: Rash Neurological: Denies: Headache, Weakness, Parasthesia, Numbness Physical Exam Vital Signs/Narrative: Vital Signs Temp Pulse Resp BP Pulse Ox 12/07/18 00:00 96.8 F L 73 18 118/62 97 General: Well nourished Head: Normocephalic Eyes: EOMI ENT: Moist mucous membranes Neck: Supple Cardiovascular: Regular rate, Regular rhythm Respiratory: No distress, CTA bilaterally Abdomen: Soft, Nontender, Nondistended Back: - - Lower lumbar and sacral tenderness Extremities: - - Extremities nontender without edema, skin warm, brisk capillary refill Skin: Normal color Neurological: Alert, - - 5 out of 5 strength with dorsiflexion, plantarflexion, extensor hallucis longus, positive straight leg raise on the right in the supine position Psychological: Normal affect Diagnostic/Tx/Re-eval Impressions Lumbar Spine X-Ray 12/07/18 02:38 IMPRESSION: 1. No fracture or acute osseous abnormality. 2. L5-S1 facet joint arthritis with minor degenerative spondylolisthesis at this level. 3. Transitional vertebra at the lumbosacral junction. Please see above numbering scheme. at 0426 Reported and signed by: Bob Mckeon MD Electronically Signed: Bob Mckeon, at 4:25 EDT Tel , Service support , 12/07/18 02:38 Lumbar Spine 2 or 3 Views [RAD] Stat Laboratory Results 12/07/18 12/07/18 02:54 02:54 WBC 12.7 H RBC 4.51 Hgb 14.3 Hct 41.1 MCV 91.1 MCH 31.7 MCHC 34.8 RDW Std Deviation 43.4 RDW Coeff of Melvina 13.0 Plt Count 226 MPV 9.6 Immature Gran % (Auto) 0.300 Neut % (Auto) 59.4 Lymph % (Auto) 31.3 [place] % (Auto) 7.7 Eos % (Auto) 0.9 Baso % (Auto) 0.4 Absolute Neuts (auto) 7.5 Absolute Lymphs (auto) 3.97 Nucleated RBC % 0 Sodium 137 Potassium 4.2 Chloride 109 H Carbon Dioxide 19.0 L Anion Gap 9 BUN 23 H Creatinine 0.93 Estim Creat Clear Calc 45.15 Est GFR (MDRD) Af Amer 77 Est GFR (MDRD) Non-Af 63 BUN/Creatinine Ratio 24.7 H Glucose 150 H Calcium 8.8 - Medical Decision Making Patient was initially treated with intramuscular morphine and continue to complain of severe pain. At this point an IV was established and she was given Dilaudid. I obtain laboratory studies and x-rays given possible need for admission for intractable pain. Laboratory studies as above unremarkable. X- rays show degenerative changes at L5-S1. On reevaluation however her pain is completely resolved. We discussed further symptomatic care at home. She has not tolerated narcotics well such as [place] or Percocet but did tolerate Tylenol 3. She also has previously taken naproxen with relief. She was given p rescriptions for naproxen and prednisone burst as well as Tylenol 3 for if needed for breakthrough pain. She was advised to follow-up as an outpatient and does understand to return for new or worsening symptoms. She was discharged. ED Disposition - Plan for ED Patient: Disposition: Home or Assisted Living Diagnosis: Lumbar radicular pain Prescriptions: Naproxen [Naprosyn] 500 mg PO BID PRN #20 tab Prescription Printed predniSONE tablet 60 mg PO DAILY #15 tab Prescription Printed Acetaminophen/Codeine #3 [Tylenol#3] 1 tab PO Q6H PRN PRN #12 tab PRN Reason: Pain Prescription Printed Referrals: NOT,DEFINED [NON-STAFF] -
[2018-12-07] MEDS: Ondansetron ODT 4 MG Tablet PO (01:55)
[2018-12-07] MEDS: morphine 8 MG/ML Syringe IM (01:56)
--- NOTE | 2018-12-07 02:38 | RAD_ITS ---
HISTORY: NKIC/O LBP WITH PAIN RADIATING INTO RT LEG EXAMINATION/TECHNIQUE: XR Spine Lumbar 3 Views: COMPARISON: CT abdomen and pelvis 10/25/2018 FINDINGS: Transitional vertebra with a rudimentary disc at the lumbosacral junction which will be labeled S1-S2 and the more cephalad levels labeled accordingly. Mild lumbar levoscoliosis. Lumbar vertebra are normal in height. No fracture or acute osseous abnormality. Lumbar disc space heights are preserved. L5 dish S1 facet joint arthritis with minor anterolisthesis of L5 on S1. The SI joints appear preserved. Atherosclerotic abdominal aorta. RAD/Lumbar Spine 2 or 3 Views IMPRESSION: 1. No fracture or acute osseous abnormality. 2. L5-S1 facet joint arthritis with minor degenerative spondylolisthesis at this level. 3. Transitional vertebra at the lumbosacral junction. Please see above numbering scheme. at 0426 Reported and signed by: Bob Mckeon MD Electronically Signed: Bob Mckeon, at 4:25 EDT Tel , Service support ,
[2018-12-07] MEDS: HYDROmorphone 1 MG/ML Syringe IV (02:55)
[2018-12-07 02:58] VITALS: BP 130/109; PULSE 72; RESP 20; O2SAT 97
[2018-12-07 02:59] LABS: Absolute Lymphocyte Count 3.97 X10^3/uL (0.83-4.51); Absolute Neutrophil Count 7.5 X10^3/uL (2.0-7.7); Basophil# 0.05 X10^3/uL; Basophil% 0.4 % (0-1); Eosinophil# 0.11 X10^3/uL; Eosinophils% 0.9 % (0-5); Hematocrit 41.1 % (37-47); Hemoglobin 14.3 g/dL (12.0-15.0); Lymphocyte # 3.97 X10^3/ul (4.0); Lymphocyte % 31.3 % (19-41); Mean Corp Hgb Conc 34.8 g/dL (32-36); Mean Corpuscular Hgb 31.7 pg (27.0-32.0); Mean Corpuscular Volume 91.1 fL (81-99); Mean Platelet Vol. 9.6 fl (6.2-12.0); Monocyte# 0.97 X10^3/uL; Monocyte% 7.7 % (0-10); NRBC Flagged by Analyzer 0 % (0-5); Neutrophil # 7.53 X10^3/uL (2.7-7.7); Neutrophil % 59.4 % (47-70); Platelet Count 226 K/mm3 (150-450); RBC Distribution Width SD 43.4 fl (35.1-43.9); Red Blood Count 4.51 M/mm3 (4.2-5.4); White Blood Count 12.7 K/mm3 (4.4-11.0)
[2018-12-07 03:17] LABS: Anion Gap 9 (5-15); BUN 23 mg/dL (7-18); BUN/Creat Ratio 24.7 RATIO (10-20); Calcium,Total 8.8 mg/dL (8.5-10.1); Chloride 109 mmol/L (98-107); Creatinine, Serum 0.93 mg/dL (0.55-1.02); EST Glomerular Filtration Rate 63 mL/min (>60); Est Glom Filt Rate - Afr Amer 77 mL/min (>60); Estimated Creatinine Clearance 45.15 ml/min; Glucose 150 mg/dL (74-106); Potassium 4.2 mmol/L (3.5-5.1); Sodium Level 137 mmol/L (136-145)
[2018-12-07 04:59] VITALS: BP 125/62; PULSE 68; RESP 18; O2SAT 95
== END 2018-12-07 05:00 | disposition home or self-care (01) ==
PROVIDERS: Emergency Provider Emergency Medicine; Family Provider Family Medicine Geriatric Medicine; PCP Family Medicine Geriatric Medicine
DX: M54.16 Radiculopathy, lumbar region (principal); E78.5 Hyperlipidemia, unspecified; I10 Essential (primary) hypertension; E11.9 Type 2 diabetes mellitus without complications; Z79.4 Long term (current) use of insulin; Z79.899 Other long term (current) drug therapy
CPT/HCPCS: 72100; 80048; 85025; 96372; 96374; 99284; A4216

== ENCOUNTER 2018-12-10 23:03 | Emergency (ER) | payer MEDICARE, SELFPAY ==
[2018-12-10 23:04] VITALS: BP 126/71; PULSE 98; RESP 16; TEMP 36.8; O2SAT 97; BMI 21.9
--- NOTE | 2018-12-10 23:36 | CT_ITS ---
STUDY: CT LUMBAR SPINE WITHOUT CONTRAST REASON FOR EXAM: Female, 68 years old. Back pain. RADIATION DOSAGE (If Supplied By Facility): CTDIvol = ( 13.82 ) mGy, DLP = ( 380.74 ) mGycm TECHNIQUE: The patient was scanned in a multi detector CT scanner. High resolution transaxial imaging was performed. Images were obtained of the lumbar spine. Sagittal and coronal images were reconstructed. Individualized dose optimization techniques were used for this CT. COMPARISON: Lumbar spine series December 07, 2018. CT abdomen and pelvis October 25, 2018. FINDINGS: Minimal anterolisthesis L5 on S1 unchanged. There is no substantial scoliosis. Normal vertebrae of the lumbar spine. L1-2: Normal endplates. Normal disc height and morphology. Normal bilateral facet joints. Normal central canal and bilateral lateral recesses. Normal bilateral intervertebral neural foramina. L2-3: Normal endplates. Normal disc height and morphology. Normal bilateral facet joints. Normal central canal and bilateral lateral recesses. Normal bilateral intervertebral neural foramina. L3-4: Normal endplates. Normal disc height and morphology. Normal bilateral facet joints. Normal central canal and bilateral lateral recesses. Normal bilateral intervertebral neural foramina. L4-5: Normal endplates. Normal disc height and morphology. Facet hypertrophy. Normal central canal and bilateral lateral recesses. Normal bilateral intervertebral neural foramina. Calcification of the ligamentum flavum on the right. L5-S1: Normal endplates. Normal disc height and morphology. Facet hypertrophy. Normal central canal and bilateral lateral recesses. Mild left neural foramina narrowing. Normal visualized paraspinous soft tissue structures. Diffuse atherosclerotic calcification of the distal abdominal aorta. CT/Spine Lumbar without Contrast IMPRESSION: Mild degenerative changes of the lower lumbar spine including L5-S1 left neural foramina narrowing. Electronically Signed: Iron Pan MD at 0:57 EDT , Service support ,
--- NOTE | 2018-12-10 23:37 | ED.VISSUMM ---
- ER Visit Summary Date of Service: 12/10/18 Chief Complaint: Back pain and right hip pain History of Present Illness: The patient is a 68 F who presents with back and right hip pain that is been getting progressively worse over the past week. Patient was seen here 3 days ago and had x-rays done at that time. There were degenerative changes noted on x-ray at that time. Patient was given IM and IV analgesics in the emergency department and was also given prescriptions for Naprosyn, prednisone, and Tylenol 3. Patient states these medications have not been helping. Patient states her pain radiates all the way down to her right ankle. Patient denies any bowel or bladder changes. Patient denies any saddle anesthesia. Patient states nothing makes her pain better or worse. Patient describes her pain as sharp. Physical Examination: Vital signs are stable. Patient is afebrile. Patient is in no acute distress. Oral mucosa is pink and moist. Neck is supple. Trachea is midline. There is no JVD noted. Musculoskeletal exam reveals tenderness over the sacroiliac area and sciatic notch. There is no bony crepitance or step-off. Range of motion of the right hip was limited secondary to pain. Strength is 5/5 bilateral knee lower extremities. Deep tendon reflexes are 2+/4 bilaterally in the patella and Achilles reflexes. Straight leg raise on the right revealed pain down the right lower extremity to her ankle at approximately 30 degrees. There is no pain with straight leg raising on the left. Sensation was intact to light touch bilaterally in the lower extremities. There is no calf tenderness. Test Results: CT scan of the lumbar spine was obtained. There are mild degenerative changes of the lower lumbar spine including neural foramina narrowing at the L5-S1 level on the left. These are interpreted by the radiologist. Emergency Department Course and Treatment: Patient was given an injection of Dilaudid here since that helped her the last time she was here. Patient had some relief of her pain after this but stated it was starting to come back. Patient was given a repeat dose of Dilaudid. Patient states she would be able to take care of herself at home. Patient wants to go home. Patient is unable to take any other analgesics other than Tylenol with codeine. Patient was given a prescription for Flexeril. Patient was instructed to continue her prednisone and Naprosyn as previously prescribed. Patient was given a prescription for more Tylenol with codeine. Patient was instructed to follow-up with her primary care physician as scheduled. Patient understood and was agreeable with the plan. All questions were answered. Disposition: Discharge home Impression: Sciatica This note was generated with [employer] dictation software. It may contain incorrect words, spelling, and punctuation that were not noted in review of the chart prior to signing ED Disposition - Plan for ED Patient: Disposition: Home or Assisted Living Diagnosis: Sciatica Instructions: BACK PAIN w/ SCIATICA Prescriptions: cycloBENZAPRine HCl [Flexeril] 10 mg PO TID PRN #20 tab PRN Reason: Muscle Spasm Prescription Printed Acetaminophen/Codeine #3 [Tylenol#3] 1 tab PO Q6H PRN PRN #12 tab PRN Reason: Pain Prescription Printed Referrals: Margret Cobos MD [Primary Care Provider] - Keep Alexis appointment
[2018-12-11] MEDS: HYDROmorphone 1 MG/ML Syringe IM ×2 (00:03→02:46)
--- NOTE | 2018-12-11 02:09 | ED.RN ---
PT C/O PAIN AGAIN, MD AWARE.
[2018-12-11 02:18] VITALS: BP 153/66; PULSE 79; RESP 15; O2SAT 96
[2018-12-11 03:26] VITALS: BP 176/75; PULSE 76; RESP 15; O2SAT 97
[2018-12-11 04:06] VITALS: BP 176/75; PULSE 76; RESP 15; O2SAT 97
== END 2018-12-11 04:07 | disposition home or self-care (01) ==
PROVIDERS: Emergency Provider Emergency Medicine; Family Provider Family Medicine Geriatric Medicine; PCP Family Medicine
DX: M54.41 Lumbago with sciatica, right side (principal); E11.9 Type 2 diabetes mellitus without complications; I10 Essential (primary) hypertension; Z79.4 Long term (current) use of insulin; Z79.899 Other long term (current) drug therapy
CPT/HCPCS: 72131; 96372; 99282

== ENCOUNTER 2018-12-27 01:27 | Emergency (ER) | payer MEDICARE, SELFPAY ==
[2018-12-27 01:28] VITALS: BP 177/122; PULSE 82; RESP 18; TEMP 36.8; O2SAT 93; BMI 21.9
--- NOTE | 2018-12-27 02:04 | ED.VIS.GEN ---
History of Present Illness Chief Complaint: Lower Extremity Injury Narrative: This is a 68-year-old female who presents with bilateral leg pain. This is been present for about 10 hours. She complains of sharp pain beginning in her groin all the way down to her feet on both legs. This is not worse in any one particular location either anterior laterally or posteriorly. No injury. No increased activity. No recent travel or surgery. No history of DVT. She has had multiple recent visits for back pain with leg pain which were attributed to lumbar radiculopathy. Currently she denies any back pain however. She states this pain is different than her previous pain. She has no abdominal pain. No fevers nausea vomiting. With the exception of leg pain review of systems is otherwise negative and she has no other complaints. Past Medical History - Allergies and Home Meds Allergies/Adverse Reactions: Allergies diphenhydramine [From Benadryl] Allergy (Verified 12/27/18 01:30) Other Primary Care Physician: Margret Cobos MD [Primary Care Provider] - Past Medical History: - - Diabetes, hypertension, hyperlipidemia Smoking Status: Never smoker Review of Systems All systems negative except as indicated General: Denies: Fever Cardiovascular: Denies: Chest pain Respiratory: Denies: Dyspnea Gastrointestinal: Denies: Nausea, Vomiting Musculoskeletal: Reports: Myalgias, Extremity Pain Physical Exam Vital Signs/Narrative: Vital Signs Temp Pulse Resp BP Pulse Ox 12/27/18 01:28 98.2 F 82 18 177/122 H 93 Inital Vital Signs reviewed: Yes General: Well nourished Head: Normocephalic Eyes: EOMI ENT: Moist mucous membranes Neck: Supple Cardiovascular: Regular rate, Regular rhythm Respiratory: No distress, CTA bilaterally Abdomen: Soft, Nontender Back: Nontender Extremities: Nontender, No edema, - - No leg tenderness, compartments are soft, no edema or erythema, capillary refill less than 2 seconds, easily palpable left dorsalis pedis pulse unable to easily palpate right dorsalis pedis pulse however she has biphasic Doppler flow in both dorsalis pedis arteries and posterior tibial arteries. Negative for: Tenderness Skin: Normal color Neurological: Alert Psychological: Normal affect Diagnostic/Tx/Re-eval - Medical Decision Making Patient was treated with IV Dilaudid and Zofran. Laboratory studies as above. She does have elevation of her d-dimer. Given pulse asymmetry and leg pain this raise concern for possible vascular thrombosis. CTAs of the abdomen with runoff to the legs was obtained. While she does have small caliber dorsalis pedis pulse with flow to the ankle she is otherwise vascularly intact with no flow limiting stenosis. Clinical suspicion for DVT is low but we will have her also have outpatient venous duplexes for follow-up. Her pain began to return and she was given Tylenol 3 here. She is still complaining of leg pain but not so severe that she feels she needs hospitalized. She does not want to be admitted and will prefer to follow-up as an outpatient. Given multiple prior visits for lumbar radiculopathy this may be related to lumbar radiculopathy or process like spinal stenosis. She does not have evidence of cauda equina syndrome. Additionally her glucose was 400. She was treated with IV fluids and given lispro. We will recheck blood sugar. As long as blood sugar is improving she can be discharged. ED Disposition - Plan for ED Patient: Disposition: Home or Assisted Living Diagnosis: Bilateral leg pain Instructions: Possible Causes of Low Back or Leg Pain Referrals: Margret Cobos MD [Primary Care Provider] -
[2018-12-27] MEDS: Ondansetron 4 MG/2 ML Vial IV (02:15)
[2018-12-27] MEDS: HYDROmorphone 1 MG/ML Syringe IV (02:15)
[2018-12-27 02:27] LABS: Absolute Lymphocyte Count 2.61 X10^3/uL (0.83-4.51); Absolute Neutrophil Count 3.4 X10^3/uL (2.0-7.7); Basophil# 0.03 X10^3/uL; Basophil% 0.4 % (0-1); Eosinophil# 0.09 X10^3/uL; Eosinophils% 1.3 % (0-5); Hemoglobin 13.8 g/dL (12.0-15.0); Lymphocyte # 2.61 X10^3/ul (4.0); Lymphocyte % 37.6 % (19-41); Mean Corp Hgb Conc 34.5 g/dL (32-36); Mean Corpuscular Hgb 31.9 pg (27.0-32.0); Mean Corpuscular Volume 92.4 fL (81-99); Mean Platelet Vol. 9.9 fl (6.2-12.0); Monocyte# 0.78 X10^3/uL; Monocyte% 11.2 % (0-10); NRBC Flagged by Analyzer 0 % (0-5); Neutrophil % 49.1 % (47-70); Platelet Count 219 K/mm3 (150-450); RBC Distribution Width CV 12.6 % (11.6-14.6); RBC Distribution Width SD 43.3 fl (35.1-43.9); Red Blood Count 4.33 M/mm3 (4.2-5.4); White Blood Count 6.9 K/mm3 (4.4-11.0)
[2018-12-27 02:36] LABS: D-Dimer Quantitative (DVT/PE) 0.96 FEU/ug/m (0.27-0.49)
--- NOTE | 2018-12-27 02:37 | CT_ITS ---
STUDY: CTA OF THE ABDOMINAL AORTA AND BILATERAL LOWER EXTREMITIES REASON FOR EXAM: Female, 68 years old. Hypertension, bilateral leg pain, diabetes. RADIATION DOSAGE (If Supplied By Facility): CTDIvol = ( 6.22 ) mGy, DLP = ( 877.89 ) mGycm TECHNIQUE: Axial CT angiography multi-detector data acquisition was obtained from the to the following intravenous administration of IV 100mL [id number]-[id number] 100ML. Axial images and MIP images were reconstructed from the axial data set. Post-processing of the angiographic images was performed, with multiplanar reformation and MIP images. Individualized dose optimization techniques were used for this CT. COMPARISON: CT abdomen and pelvis 10/25/2018. Descriptors of Narrowing: None (0%) Mild (< 50%) Moderate (50-70%) Severe (70-90%) Subtotal/Total Occlusion (90-100%) Non-Evaluable (technically non-diagnostic FINDINGS: Abdominal aorta: Calcific plaque causes no significant narrowing. Celiac and superior mesenteric arteries: No demonstrated narrowing. Inferior mesenteric artery: Mild narrowing at its origin, unchanged. Right renal artery(arteries): No demonstrated narrowing. Left renal artery(arteries): No demonstrated narrowing. Right common iliac artery: Calcific plaque causes no significant narrowing. Right external iliac artery: No demonstrated narrowing. Right internal iliac artery: Calcific plaque causes multifocal mild narrowing. Left common iliac artery: Calcific plaque causes no significant narrowing. Left external iliac artery: No demonstrated narrowing. Left internal iliac artery: Calcific plaque causes multifocal mild narrowing. RIGHT LOWER EXTREMITY Right common femoral artery: No demonstrated narrowing. Right profundus femoris: No demonstrated narrowing. Right superficial femoral: Calcific plaque causes no significant narrowing. Right popliteal artery: No demonstrated narrowing. Right tibioperoneal trunk: There is mild diffuse narrowing. Right anterior tibial artery: There is mild diffuse narrowing, with visualization of the vessel to the foot; dorsalis pedis small in caliber and patent at the ankle but does not opacify in the more distal foot. Right posterior tibial artery: Mild narrowing proximally. Patent to the foot. Right peroneal artery: Small in caliber, patent to the distal calf. LEFT LOWER EXTREMITY Left common femoral artery: No demonstrated narrowing. Left profundus femoris: No demonstrated narrowing. Left superficial femoral: No demonstrated narrowing. Left popliteal artery: No demonstrated narrowing. Left tibioperoneal trunk: No demonstrated narrowing. Left anterior tibial artery: Multifocal mild narrowing, patent to the foot including patent dorsalis pedis. Left posterior tibial artery: Multifocal mild narrowing, patent to the foot. Left peroneal artery: Small in caliber, patent to the distal calf. Nonvascular structures: Status post hysterectomy. Postinjection changes anterior abdominal wall subcutaneous fat. Prior ORIF right lateral malleolus are and left medial malleolus fractures. CT/CTA Abd w/Runoff W/WO Contrast IMPRESSION: No flow limiting arterial stenosis in the abdomen, pelvis, or either lower extremity. Single vessel runoff to the right foot via the posterior tibial. Two-vessel runoff to the left foot via the posterior tibial and dorsalis pedis. Electronically Signed: Pedro Braxton, at 3:36 EDT Tel , Service support ,
--- NOTE | 2018-12-27 02:38 | ED.RN ---
D-DIMER OF 0.[address] LEIGH. VERBALIZED UNDERSTANDING
[2018-12-27 02:40] LABS: Anion Gap 7 (5-15); BUN 17 mg/dL (7-18); CPK Total, Creatine Kinase 43 U/L (26-192); Chloride 104 mmol/L (98-107); Creatinine, Serum 0.85 mg/dL (0.55-1.02); EST Glomerular Filtration Rate 70 mL/min (>60); Est Glom Filt Rate - Afr Amer 85 mL/min (>60); Glucose 402 mg/dL (74-106); Potassium 4.1 mmol/L (3.5-5.1); Sodium Level 135 mmol/L (136-145)
--- NOTE | 2018-12-27 03:26 | ED.RN ---
PT STATES DILAUDID WAS INEFFECTIVE. DR LEIGH AWARE.
[2018-12-27] MEDS: Insulin Lispro 100 UNIT/ML INSULN.PEN 10 UNIT SC (03:34)
[2018-12-27] MEDS: 0.9% Normal Saline 1,000 ML 999 ML IV (03:34)
[2018-12-27] MEDS: Acetaminophen/Codeine #3 Tablet 1 TABLET PO (03:57)
[2018-12-27 04:31] LABS: Bedside Glucose 267 mg/dL (70-110)
[2018-12-27 04:33] VITALS: RESP 16
== END 2018-12-27 04:35 | disposition home or self-care (01) ==
PROVIDERS: Emergency Provider Emergency Medicine; Family Provider Family Medicine; PCP Family Medicine
DX: M79.604 Pain in right leg (principal); M79.605 Pain in left leg; R79.1 Abnormal coagulation profile; M54.16 Radiculopathy, lumbar region; E78.5 Hyperlipidemia, unspecified; I10 Essential (primary) hypertension; E11.9 Type 2 diabetes mellitus without complications; Z79.4 Long term (current) use of insulin; Z79.899 Other long term (current) drug therapy
CPT/HCPCS: 75635; 80048; 82550; 82962; 85025; 85379; 93970; 96361; 96374; 96375; 99285; J7030; Q9967; A4216; J2405

== ENCOUNTER → 2018-12-27 | Outpatient (CLI) | payer MEDICARE, SELFPAY ==
[2018-12-27 01:28] VITALS: BMI 21.9
--- NOTE | 2018-12-27 13:46 | VDLE_ITS ---
Reason For Study: ELEVATED D-DIMER, BLE PAIN. RIGHT LEFT GSV is normal. GSV is normal. CFV is compressible, spontaneous, phasic, CFV is compressible, spontaneous, phasic, competent and demonstrates normal competent, and demonstrates normal augmentation. augmentation. FV is compressible, spontaneous, phasic, FV is compressible, spontaneous, phasic, competent and demonstrates normal competent and demonstrates normal augmentation. augmentation. POP V is compressible, spontaneous, phasic, POP V is compressible, spontaneous, phasic, competent and demonstrates normal competent and demonstrates normal augmentation. augmentation. T/P Trunk is compressible. T/P Trunk is compressible. PTV is compressible. PTV is compressible. RT PerV is compressible. LT PerV is compressible. Procedure Exam performed in department. The exam was diagnostic. A preliminary report was called and/or faxed to Dr. Wagner/ED & Dr. Barbara Cobos @[phone]. Interpretation Summary Deep veins of the lower extremities are bilaterally patent and compressible segmentally. There is no evidence of deep vein thrombosis on either side. Valvular competence appears intact within the proximal deep venous systems bilaterally. The great saphenous veins appear bilaterally patent and compressible segmentally. Ordering Physician: Ritesh Wagner Referring Physician: Margret Cobos Performed By: Rolanda Scott, RDCS, RVT
== END | disposition home or self-care (01) ==
PROVIDERS: Family Provider Family Medicine; PCP Family Medicine; Referring Provider Emergency Medicine; Visit Provider Emergency Medicine
DX: M79.604 Pain in right leg (principal)
CPT/HCPCS: 93970

== ENCOUNTER 2018-12-31 01:38 | Emergency (ER) | payer MEDICARE, SELFPAY ==
[2018-12-31 01:39] VITALS: BP 159/76; PULSE 79; RESP 15; TEMP 36.8; O2SAT 96; BMI 23.2
[2018-12-31] MEDS: Acetaminophen/Codeine #3 Tablet 1 TABLET PO (02:13)
[2018-12-31] MEDS: Naproxen 500 MG Tablet PO (02:13)
--- NOTE | 2018-12-31 02:46 | ED.VIS.GEN ---
History of Present Illness Chief Complaint: Other, Pain/Inj Detail of Chief Complaint: Bilateral leg pain Informant: Patient Onset: Yesterday Current Severity: Moderate Maximum Severity: Severe Narrative: Patient presents with recurrent bilateral leg pain. She has been dealing with this over the past couple of weeks. She has a history of back pain and sciatica, but this pain feels different. She was seen here in the emergency room 4 days ago and had extensive work-up including labs, CTA of the abdomen and pelvis with runoff to the legs, and venous ultrasound of her legs that revealed no cause of her symptoms. Patient states when she would take 500 mg of Aleve twice a day her pain was resolved, but she ran out of her prescription. The pain has now returned. She is scheduled to see her primary care physician on January 19 and they are talking about getting an MRI scheduled at that time. Past Medical History - Allergies and Home Meds Allergies/Adverse Reactions: Allergies diphenhydramine [From Benadryl] Allergy (Verified 12/31/18 01:45) Other Primary Care Physician: Margret Cobos MD [Primary Care Provider] - Prior records reviewed: Yes Past Medical History: - - Reviewed Lives: Spouse/ Significant Other Smoking Status: Unknown if ever smoked Review of Systems General: Denies: Chills, Fever Eyes: Denies: Visual changes - bilaterally ENT: Denies: Bilateral ear pain Cardiovascular: Denies: Chest pain Respiratory: Denies: Dyspnea, Cough Gastrointestinal: Denies: Abdominal pain Genitourinary: Denies: Dysuria Musculoskeletal: Reports: Extremity Pain. Denies: Back pain Skin: Denies: Rash, Wounds Neurological: Denies: Headache, Parasthesia Hematologic: Denies: Easy bruising, Easy bleeding Allergy: Denies: Uticaria Physical Exam Vital Signs/Narrative: Vital Signs Temp Pulse Resp BP Pulse Ox 12/31/18 01:39 98.2 F 79 15 159/76 H 96 Inital Vital Signs reviewed: Yes General: Well nourished Head: Normocephalic ENT: Moist mucous membranes Neck: Supple Cardiovascular: Regular rate, Regular rhythm Respiratory: No distress, CTA bilaterally Abdomen: Soft, Nontender Extremities: - - Patient has mild muscular tenderness in the calves bilaterally. There is no edema. She has palpable distal pulses. No skin change noted. No tenderness focally at the joints. Neurological: Alert, Oriented x3, Normal Strength, Normal Sensation Psychological: - - Anxious Diagnostic/Tx/Re-eval - Medical Decision Making Because the patient has had similar pain recently with large work-up, she was initially given 500 mg of naproxen and 1 tab of Tylenol 3. After half hour she states that she has had no relief and is quite uncomfortable. IV line was established and she was given 0.5 mgs of Dilaudid along with Zofran. CBC, chemistry studies, CK level are unremarkable. Patient is updated on the lab results. Pain is improving at this time. She will be given a prescription for naproxen and a few Tylenol 3 for breakthrough pain. She will call her primary care physician on Tuesday. ED Disposition - Plan for ED Patient: Disposition: Home or Assisted Living Diagnosis: Bilateral leg pain Instructions: Myalgias Prescriptions: Naproxen [Naprosyn] 500 mg PO BID PRN PRN #20 tablet PRN Reason: Pain Score 1-10/10 Acetaminophen/Codeine #3 [Tylenol#3] 1 tablet PO Q6H PRN PRN #14 tablet PRN Reason: Pain Score 6-10/10 Referrals: Margret Cobos MD [Primary Care Provider] - As soon as possible
[2018-12-31] MEDS: Ondansetron 4 MG/2 ML Vial IV (03:16)
[2018-12-31] MEDS: HYDROmorphone 0.5 MG/0.5 ML SYRINGE IV (03:18)
[2018-12-31] MEDS: 0.9% Normal Saline 1,000 ML 150 ML IV (03:21)
[2018-12-31 03:23] LABS: Absolute Lymphocyte Count 4.23 X10^3/uL (0.83-4.51); Absolute Neutrophil Count 3.5 X10^3/uL (2.0-7.7); Basophil# 0.04 X10^3/uL; Basophil% 0.5 % (0-1); Eosinophil# 0.18 X10^3/uL; Eosinophils% 2.1 % (0-5); Hematocrit 40.2 % (37-47); Hemoglobin 13.5 g/dL (12.0-15.0); Lymphocyte # 4.23 X10^3/ul (4.0); Lymphocyte % 48.2 % (19-41); Mean Corp Hgb Conc 33.6 g/dL (32-36); Mean Corpuscular Hgb 30.9 pg (27.0-32.0); Mean Platelet Vol. 9.5 fl (6.2-12.0); Monocyte# 0.83 X10^3/uL; Monocyte% 9.5 % (0-10); NRBC Flagged by Analyzer 0 % (0-5); Neutrophil # 3.46 X10^3/uL (2.7-7.7); Neutrophil % 39.4 % (47-70); Platelet Count 275 K/mm3 (150-450); RBC Distribution Width SD 43.5 fl (35.1-43.9); Red Blood Count 4.37 M/mm3 (4.2-5.4); White Blood Count 8.8 K/mm3 (4.4-11.0)
[2018-12-31 03:39] LABS: Anion Gap 6 (5-15); BUN 18 mg/dL (7-18); BUN/Creat Ratio 22.3 RATIO (10-20); CPK Total, Creatine Kinase 59 U/L (26-192); Calcium,Total 9.1 mg/dL (8.5-10.1); Chloride 108 mmol/L (98-107); Creatinine, Serum 0.81 mg/dL (0.55-1.02); EST Glomerular Filtration Rate 75 mL/min (>60); Est Glom Filt Rate - Afr Amer 90 mL/min (>60); Estimated Creatinine Clearance 51.84 ml/min; Glucose 173 mg/dL (74-106); Potassium 4.3 mmol/L (3.5-5.1); Sodium Level 141 mmol/L (136-145)
[2018-12-31 04:23] VITALS: BP 155/72; PULSE 74; RESP 18; O2SAT 96
== END 2018-12-31 04:25 | disposition home or self-care (01) ==
PROVIDERS: Emergency Provider Emergency Medicine; Family Provider Family Medicine; PCP Family Medicine
DX: M79.604 Pain in right leg (principal); M79.605 Pain in left leg
CPT/HCPCS: 80048; 82550; 85025; 96361; 96374; 96375; 99283; A4216; J2405

== ENCOUNTER 2019-01-02 23:53 | Emergency (ER) | payer MEDICARE, SELFPAY ==
[2019-01-02 23:55] VITALS: BP 128/66; PULSE 63; RESP 18; TEMP 36.2; O2SAT 97; BMI 21.9
--- NOTE | 2019-01-03 00:31 | RAD_ITS ---
STUDY: X-RAY - PELVIS AND LEFT HIP REASON FOR EXAM: Female, 68 years old. Hip pain and fall TECHNIQUE: 3 views of the pelvis and hip. COMPARISON: CT pelvis December 27, 2018 FINDINGS: There is a non-specific bowel gas pattern. Normal visualized soft tissue structures. Normal bilateral iliac wings, sacroiliac joints and visualized sacrum. Normal bilateral superior and inferior pubic rami. Normal pubic symphysis. Normal bilateral ischial tuberosities. There is left greater than right acetabular spurring. There is mild narrowing of the hip joints. There is no evidence of an acute fracture. RAD/HIP, UNI W/ Pelvis 2-3 Views IMPRESSION: Degenerative change, no visualized evidence of an acute fracture. Electronically Signed: Lurdes Bledsoe MD at 1:59 EDT Tel , Service support ,
--- NOTE | 2019-01-03 00:31 | RAD_ITS ---
STUDY: X-RAY - LEFT KNEE REASON FOR EXAM: Female, 68 years old. Trauma TECHNIQUE: 4 view(s) of the knee. COMPARISON: None. FINDINGS: Vascular calcifications. Mild soft tissue swelling. No radiopaque foreign body. No significant joint effusion. Degenerative changes. Chondrocalcinosis, correlate for metabolic disorders such as CPPD. No acute fracture or dislocation. RAD/Knee 4 or More Views IMPRESSION: Mild soft tissue swelling. No acute fracture. Other findings as above. Electronically Signed: Gianfranco Gamble, at 1:56 EDT Tel , Service support ,
--- NOTE | 2019-01-03 00:57 | ED.VIS.GEN ---
History of Present Illness Chief Complaint: Fall Narrative: Patient is a 68-year-old female who presents after a fall. She slipped in the shower tonight. She injured her left hip and knee. This occurred just shortly before presentation. She has been able to ambulate although it is painful. She denies any numbness tingling weakness. She otherwise denies recent illness since she was last seen in the emergency department. No chest pain shortness of breath abdominal pain back pain. Past Medical History - Allergies and Home Meds Allergies/Adverse Reactions: Allergies diphenhydramine [From Benadryl] Allergy (Verified 01/02/19 23:56) Other Primary Care Physician: Margret Cobos MD [Primary Care Provider] - Past Medical History: - - Diabetes, hypertension, hyperlipidemia Smoking Status: Never smoker Review of Systems All systems negative except as indicated Physical Exam Vital Signs/Narrative: Vital Signs Temp Pulse Resp BP Pulse Ox 01/02/19 23:55 97.2 F L 63 18 128/66 H 97 Inital Vital Signs reviewed: Yes General: Well nourished Head: Normocephalic Eyes: EOMI ENT: Moist mucous membranes Neck: Supple Cardiovascular: Regular rate Respiratory: No distress Extremities: - - No deformities of the extremities she does have tenderness on palpation of the left hip and knee she has active full range of motion she has brisk capillary refill normal sensation distally Skin: Normal color Neurological: Alert Diagnostic/Tx/Re-eval Impressions Hip/Pelvis X-Ray 01/03/19 00:31 IMPRESSION: Degenerative change, no visualized evidence of an acute fracture. Electronically Signed: Lurdes Bledsoe MD at 1:59 EDT Tel , Service support , Knee X-Ray 01/03/19 00:31 IMPRESSION: Mild soft tissue swelling. No acute fracture. Other findings as above. Electronically Signed: Gianfranco Gamble at 1:56 EDT Tel , Service support , 01/03/19 00:31 HIP, UNI W/ Pelvis 2-3 Views [RAD] Stat Knee 4 or More Views [RAD] Stat - Medical Decision Making X-rays as above negative for fracture. Patient was given a [place] here for pain and advised on supportive care. She understands to return for new or worsening symptoms and was discharged home. ED Disposition - Plan for ED Patient: Disposition: Home or Assisted Living Diagnosis: Fall, Sprain of left hip, Left knee sprain Instructions: Knee Sprain, FALL, Mechanical, Hip Strain Prescriptions: Hydrocodone Bitart/Apap 5-325 [[place] 5MG-325MG] 1 tab PO Q6H PRN PRN 3 Days #12 tab PRN Reason: Pain Prescription Printed Referrals: Margret Cobos MD [Primary Care Provider] -
[2019-01-03] MEDS: Acetaminophen/Codeine #3 Tablet 1 TABLET PO (02:32)
--- NOTE | 2019-01-03 02:48 | ED.RN ---
patient given discharge instructions. patient upset with care and not receiving pain medications. Patient given patient advocate number at this time. patient denies any other concerns or questions at this time
== END 2019-01-03 02:51 | disposition home or self-care (01) ==
PROVIDERS: Emergency Provider Emergency Medicine; Family Provider Family Medicine; PCP Family Medicine
DX: S83.92XA Sprain of unspecified site of left knee, initial encounter (principal); S73.102A Unspecified sprain of left hip, initial encounter; E78.5 Hyperlipidemia, unspecified; I10 Essential (primary) hypertension; E11.9 Type 2 diabetes mellitus without complications; Z79.4 Long term (current) use of insulin; Z79.899 Other long term (current) drug therapy; W01.0XXA Fall on same level from slipping, tripping and stumbling without subsequent striking against object, initial encounter; Y93.E1 Activity, personal bathing and showering; Y92.002 Bathroom of unspecified non-institutional (private) residence as the place of occurrence of the external cause; Y99.8 Other external cause status
CPT/HCPCS: 73502; 73564; 99283

== ENCOUNTER 2019-01-08 00:05 | Emergency (ER) | payer MEDICARE, SELFPAY ==
[2019-01-08 00:06] VITALS: BP 126/77; PULSE 90; RESP 15; TEMP 36.8; O2SAT 97; BMI 21.9
[2019-01-08] MEDS: Morphine 4 MG/ML Syringe IM (01:48)
--- NOTE | 2019-01-08 01:57 | RAD_ITS ---
STUDY: X-RAY - LEFT FEMUR REASON FOR STUDY: Female, 68 years old. PAIN x1 WEEK, WORSENING TONIGHT TECHNIQUE: 2 view(s) of the femur. COMPARISON: None. FINDINGS: Advanced degenerative changes are noted in the left hip joint. There is possible lytic lesion with abnormal periosteal bone formation at the medial aspect of the acetabulum. Further evaluation by CT scan or MRI of the left hip would be recommended. Normal visualized soft tissue structure. There is no fracture. RAD/Femur Min 2 Views IMPRESSION: There is possible lytic lesion with abnormal periosteal bone formation at the medial aspect of the acetabulum. Further evaluation by CT scan or MRI of the left hip would be recommended. Electronically Signed: [place] Powers, at 2:13 EDT Tel , Service support ,
--- NOTE | 2019-01-08 02:22 | CT_ITS ---
STUDY: CT LEFT FEMUR WITHOUT CONTRAST REASON FOR EXAM: Female, 68 years old. Left hip pain and left knee pain. Suspicious lesion in the left acetabulum noted on plain films study RADIATION DOSAGE (If Supplied By Facility): CTDIvol = ( 15.35 ) mGy, DLP = ( 779.75 ) mGycm TECHNIQUE: Thin section transaxial imaging of the left femur was obtained, with sagittal and coronal reconstructed images. Individualized dose optimization techniques were used for this CT. COMPARISON: None. FINDINGS: Normal femoral head, neck, intertrochanteric region and visualized proximal femur. Normal acetabulum. There is moderate articular joint space narrowing. Normal visualized superior and inferior pubic rami and ischial tuberosities. CT/Extremity Lower without Contra IMPRESSION: Moderate degenerative arthrosis of the left hip. There is no evidence of fracture or neoplasm. Electronically Signed: [place] Powers, at 3:02 EDT Tel , Service support ,
--- NOTE | 2019-01-08 03:08 | ED.DCSUM_ITS ---
- ER Visit Summary Date of Service: 01/08/19 Chief Complaint: Left thigh pain History of Present Illness: The patient is a 68 F who presents with pain in her left thigh and knee that began today. Patient states the pain began suddenly. Patient describes the pain as sharp. Patient denies any paresthesias or weakness. Patient denies any trauma or injury. Patient states nothing makes her pain better or worse. Patient denies any recent fevers or chills. Patient denies any recent surgery. Physical Examination: Vital signs are stable. Patient is afebrile. Patient is in no acute distress. Oral mucosa is pink and moist. Neck is supple. Trachea is midline. There is no JVD noted. Musculoskeletal exam reveals tenderness over the left distal femur and knee. There is no edema or ecchymosis. There is no effusion. There is no bony crepitance or step-off. There is no deformity noted. Range of motion was limited in all motions of the left hip and knee secondary to pain. There is no laxity appreciated. Pedal pulses are equal bilaterally. Strength is 5/5 bilateral knee upper and lower extremities. There are no sensory deficits noted. Test Results: X-rays of the left femur were obtained. There is a possible lytic lesion with abnormal periosteal bone formation at the medial aspect of the acetabulum. Further evaluation by CT was recommended. CT scan of the left hip and femur was obtained. There is no acute fracture or neoplasm noted. These are interpreted by the radiologist and reviewed by myself. Emergency Department Course and Treatment: Patient was given an injection of morphine here. Patient had minimal relief with this. Patient was given a subsequent injection of Dilaudid. Patient was given a prescription for a short course of [place]. Patient was instructed to follow-up with her primary care physician in 3 to 5 days. Patient was instructed to continue her pain medications as previously prescribed. Patient and family understood and were agreeable with the plan. All questions were answered. Disposition: Discharge home Impression: Left thigh pain This note was generated with [employer] dictation software. It may contain incorrect words, spelling, and punctuation that were not noted in review of the chart prior to signing ED Disposition - Plan for ED Patient: Disposition: Home or Assisted Living Diagnosis: Pain in left thigh Instructions: ED Osteoarthritis Prescriptions: Hydrocodone Bitart/Apap 5-325 [[place] 5MG-325MG] 1 tab PO Q6H PRN PRN 3 Days #10 tab PRN Reason: Pain Prescription Printed Referrals: Margret Cobos MD [Primary Care Provider] - 3-5 Days
[2019-01-08] MEDS: HYDROmorphone 0.5 MG/0.5 ML SYRINGE IM (03:25)
[2019-01-08 03:58] VITALS: BP 120/70; PULSE 74; RESP 16; O2SAT 98
== END 2019-01-08 04:00 | disposition home or self-care (01) ==
PROVIDERS: Emergency Provider Emergency Medicine; Family Provider Family Medicine; PCP Family Medicine
DX: M79.652 Pain in left thigh (principal); E78.00 Pure hypercholesterolemia, unspecified; E11.9 Type 2 diabetes mellitus without complications; Z79.4 Long term (current) use of insulin; Z79.899 Other long term (current) drug therapy
CPT/HCPCS: 73552; 73700; 96372; 99282

== ENCOUNTER 2019-01-10 19:26 | Emergency (ER) | payer MEDICARE, SELFPAY ==
[2019-01-10 19:27] VITALS: BP 123/66; PULSE 100; RESP 18; TEMP 36.7; O2SAT 97; BMI 21.9
--- NOTE | 2019-01-10 19:48 | ED.RN ---
PT stated to this RN that she had never had this pain before. Denies injury. Used 1 tylenol for pain in am and then heating pad and warm back with very little relief. PT had work-up two days ago here for the same.
--- NOTE | 2019-01-10 20:22 | CT_ITS ---
STUDY: CT ABDOMEN AND PELVIS WITHOUT CONTRAST REASON FOR EXAM: Female, 68 years old. Left hip and groin pain. RADIATION DOSAGE (If Supplied By Facility): CTDIvol = ( 6.06 ) mGy, DLP = ( 340.70 ) mGycm TECHNIQUE: Transaxial images were obtained from the dome of the diaphragm to the symphysis pubis without oral contrast, and without intravenous contrast. Sagittal and coronal images were reconstructed. Individualized dose optimization techniques were used for this CT. COMPARISON: Prior CTA abdomen of December 27, 2018 FINDINGS: The visualized lung bases are unremarkable. The visualized portions of the heart are within normal limits. Normal liver. Normal gallbladder and extrahepatic biliary system. Normal spleen. Normal pancreas. Normal bilateral adrenal glands. Normal right kidney. Normal left kidney. Normal visualized stomach. Normal small intestine. Normal colon. The appendix is visualized and appears normal. There is diffuse atherosclerotic calcification of the abdominal aorta, without a demonstrated aneurysm. Normal inferior vena cava. Normal retroperitoneum. Normal urinary bladder. The left groin is negative for evidence of herniation, mass density, fluid collection or any substantial adenopathy. There is circumferential vascular calcification of the superficial femoral and profunda arteries, same as the right side. Mild degenerative changes of the left hip similar to the right side. Symmetric muscular structures around the hips bilaterally. There is some generalized stranding of the fatty tissues over the gluteal areas bilaterally somewhat more prominent on the left than the right with similar areas in the lower abdominal wall which I take to be secondary to subcutaneous injections. Degenerative changes of the lower lumbar spine. There is spinal stenosis and foraminal narrowing at L5 transitional level secondary to primarily advanced facet arthrosis and hypertrophy of the posterior elements. CT/Abdomen/Pelvis without Cont IMPRESSION: No acute abdominal findings. Specifically normal kidneys bilaterally without hydronephrosis or stones. Unremarkable nondistended urinary bladder. No specific pathology of the left groin. Negative for hernia, adenopathy, mass density or fluid collection. Circumferential vascular calcifications. No acute bone or muscular abnormality. Mild degenerative changes of the left hip similar to the right hip. Areas of stranding in the subcutaneous fatty tissues of the gluteal areas, left somewhat greater than right and in the lower abdominal wall which I take to represent injection sites. Negative for any focal abscess or fluid accumulation. Spinal stenosis and foraminal narrowing at L5/transitional level secondary primarily to advanced facet arthrosis and hypertrophy of the posterior elements. Electronically Signed: Patricia De Jesus MD at 21:31 EDT , Service support ,
--- NOTE | 2019-01-10 20:23 | RAD_ITS ---
STUDY: X-RAY - PELVIS AND LEFT HIP REASON FOR EXAM: Female, 68 years old. Pain in the hip after falling. TECHNIQUE: 3 views of the pelvis and hip. COMPARISON: Prior pelvis and left hip radiographs November 03, 2018 FINDINGS: There is a non-specific bowel gas pattern. Normal visualized soft tissue structures. Normal bilateral iliac wings, sacroiliac joints and visualized sacrum. Normal bilateral superior and inferior pubic rami. Normal pubic symphysis. Normal bilateral ischial tuberosities. Minimal marginal osteophytosis of the femoral head. Mild spurring of the acetabulum. There is mild articular joint space narrowing of the hip. RAD/HIP, UNI W/ Pelvis 2-3 Views IMPRESSION: Negative for fracture or dislocation of the pelvis or hip. Mild degenerative arthrosis of the left hip. Electronically Signed: Patricia De Jesus MD at 21:13 EDT , Service support ,
--- NOTE | 2019-01-10 20:24 | ED.DCSUM_ITS ---
- ER Visit Summary Date of Service: 01/10/19 Chief Complaint: Left hip pain History of Present Illness: The patient is a 68 F presenting with left hip pain. Patient states this started last night. She denies injury. She has pain in her left hip that radiates to her left thigh. She denies back pain. She has not taken any medications at home. She states she tried soaking in the bath without improvement. She is able to ambulate with pain. Denies other complaints. Physical Examination: Vitals are stable. Patient is afebrile. Alert no acute distress. HEENT exam is unremarkable. Neck is supple. Lungs are clear and equal bilaterally. Heart is regular rate and rhythm. Abdomen is soft left lower quadrant tenderness with no rebound or guarding Extremities left anterior hip tenderness. Normal DP/PT pulses Skin is warm and dry. No rash No focal neurologic deficit. Remainder of exam is unremarkable. Emergency Department Course and Treatment: Patient given morphine, Zofran IV. CBC, chemistries unremarkable other than glucose 197, BUN 24. CT abdomen pelvis shows no acute abdominal findings. Specifically normal kidneys bilaterally without hydronephrosis or stones. Unremarkable nondistended urinary bladder. No specific pathology of the left groin. Negative for hernia, adenopathy, mass density or fluid collection. Circumferential vascular calcifications. No acute bone or muscular abnormality. Mild degenerative changes of the left hip similar to the right hip. Areas of stranding in the subcutaneous fatty tissues of the gluteal areas, left somewhat greater than right and in the lower abdominal wall which I take to represent injection sites. Negative for any focal abscess or fluid accumulation. Spinal stenosis and foraminal narrowing at L5/transitional level secondary primarily to advanced facet arthrosis and hypertrophy of the posterior elements. On reevaluation, patient is feeling improved. She is able to ambulate. She is given a short course of Percocet. She is advised to follow up with her primary care physician. Advised to return to ED for worsening complaints. Disposition: Discharge home Impression: Left groin strain This note was generated with [employer] dictation software. It may contain incorrect words, spelling, and punctuation that were not noted in review of the chart prior to signing ED Disposition - Plan for ED Patient: Instructions: Groin Strain Prescriptions: Oxycodone HCl/Acetaminophen [Percocet 5/325] 1 tab PO Q6H PRN PRN 3 Days #10 tab PRN Reason: Pain Prescription Printed Referrals: Margret Cobos MD [Primary Care Provider] - Alfonso Carlson Chi, MD [COURTESY STAFF PHYSICIAN] -
[2019-01-10] MEDS: Ondansetron 4 MG/2 ML Vial IV (20:45)
[2019-01-10] MEDS: Morphine 4 MG/ML Syringe IV (20:45)
[2019-01-10 20:47] LABS: Basophil# 0.06 X10^3/uL; Basophil% 0.6 % (0-1); Eosinophil# 0.08 X10^3/uL; Eosinophils% 0.8 % (0-5); Hematocrit 42.2 % (37-47); Hemoglobin 14.5 g/dL (12.0-15.0); Mean Corp Hgb Conc 34.4 g/dL (32-36); Mean Corpuscular Hgb 31.8 pg (27.0-32.0); Mean Corpuscular Volume 92.5 fL (81-99); Mean Platelet Vol. 9.4 fl (6.2-12.0); Monocyte# 0.87 X10^3/uL; Monocyte% 8.4 % (0-10); NRBC Flagged by Analyzer 0 % (0-5); Neutrophil # 5.95 X10^3/uL (2.7-7.7); Neutrophil % 57.8 % (47-70); Platelet Count 301 K/mm3 (150-450); RBC Distribution Width CV 13.5 % (11.6-14.6); RBC Distribution Width SD 45.4 fl (35.1-43.9); Red Blood Count 4.56 M/mm3 (4.2-5.4); White Blood Count 10.3 K/mm3 (4.4-11.0)
[2019-01-10 21:00] LABS: Anion Gap 7 (5-15); BUN 24 mg/dL (7-18); BUN/Creat Ratio 30.1 RATIO (10-20); Calcium,Total 8.9 mg/dL (8.5-10.1); Chloride 108 mmol/L (98-107); EST Glomerular Filtration Rate 76 mL/min (>60); Est Glom Filt Rate - Afr Amer 92 mL/min (>60); Estimated Creatinine Clearance 52.49 ml/min; Glucose 197 mg/dL (74-106); Potassium 3.5 mmol/L (3.5-5.1); Sodium Level 138 mmol/L (136-145)
[2019-01-10 21:28] LABS: Bacteria 0 SEEN /hpf (None Seen); Mucous, Urine 0 SEEN /hpf (<or=2+); Red Blood Cells-Urine 0 SEEN /hpf (0-5); White Blood Cells 0 SEEN /hpf (0-5)
[2019-01-10 21:32] LABS: Color, Urine Yellow (Yellow); Glucose, Dipstick 250 mg/dl (Normal); Ketone-Dipstick 5 mg/dl (Negative); Leukocyte Esterase-Dipstick Negative /ul (Negative); Nitrite-Dipstick Negative (Negative); Occult Blood-Urine Negative /ul (Negative); Protein-Dipstick 15 mg/dl (Negative); Urine Bilirubin Dipstick Negative (Negative); Urine Clarity Clear (Clear); Urine Urobilinogen Normal (Normal); Urine pH 6.5 (5.0 - 8.0)
[2019-01-10 21:39] LABS: Squamous Epithelial Cells - UA 0-5 SEEN /hpf (5-10)
--- NOTE | 2019-01-10 21:48 | ED.DEP ---
ED Disposition - Plan for ED Patient: Instructions: Groin Strain Prescriptions: Oxycodone HCl/Acetaminophen [Percocet 5/325] 1 tablet PO Q6H PRN PRN 3 Days #10 tablet PRN Reason: Pain Referrals: Margret Cobos MD [Primary Care Provider] - Alfonso Carlson Chi, MD [COURTESY STAFF PHYSICIAN] -
[2019-01-10 22:03] VITALS: BP 134/73; PULSE 83; RESP 16; O2SAT 96
== END 2019-01-10 22:04 | disposition home or self-care (01) ==
PROVIDERS: Emergency Provider Emergency Medicine; Family Provider Family Medicine; PCP Family Medicine
DX: S39.011A Strain of muscle, fascia and tendon of abdomen, initial encounter (principal); X58.XXXA Exposure to other specified factors, initial encounter; Y93.89 Activity, other specified; Y92.89 Other specified places as the place of occurrence of the external cause; Y99.8 Other external cause status
CPT/HCPCS: 73502; 74176; 80048; 81001; 85025; 96361; 96374; 96375; 99283; J7030; J2405

== ENCOUNTER 2019-01-24 23:05 | Emergency (ER) | payer MEDICARE, SELFPAY ==
[2019-01-24 23:06] VITALS: BP 143/75; PULSE 96; RESP 16; TEMP 37; O2SAT 98; BMI 22.3
--- NOTE | 2019-01-24 23:09 | RAD_ITS ---
STUDY: X-RAY - PELVIS AND LEFT HIP REASON FOR EXAM: Female, 68 years old. Pain TECHNIQUE: 3 views of the pelvis and hip. COMPARISON: None. FINDINGS: There is a non-specific bowel gas pattern. Normal visualized soft tissue structures. Normal bilateral iliac wings, sacroiliac joints and visualized sacrum. Normal bilateral superior and inferior pubic rami. Normal pubic symphysis. Normal bilateral ischial tuberosities. Normal visualized femoral head. Normal acetabulum. Normal hip joint. RAD/HIP, UNI W/ Pelvis 2-3 Views IMPRESSION: Normal x-ray examination of the pelvis and hip. Electronically Signed: Dimitri Thayer DO at 23:41 EDT Tel [phone], Service support ,
--- NOTE | 2019-01-25 00:07 | ED.DCSUM_ITS ---
- ER Visit Summary Date of Service: 01/25/19 Chief Complaint: Pain History of Present Illness: The patient is a 68 F with left inguinal pain. The pain started gradually over several days. It does not migrate, and has always been in the same area. It does radiate down her left anterior thigh. She never had problems with this in the past. Nothing seemed to bring it on. She denies any injury, accidents, or new activities. She denies back pain or other musculoskeletal complaints. She denies any history or symptoms. Denies any STRAP MACHINE OPERATOR AUTOMATIC symptoms. Denies any GI symptoms. Denies any history of surgery to the hip, septic joint, but she has had ankle fractures in the past. Denies any vascular problems, DVTs. Denies fever or systemic symptoms. Physical Examination: Afebrile and vital signs unremarkable. Alert and oriented. No acute distress. Heart regular. Lungs clear. Abdomen soft, nontender, nondistended, normal bowel sounds, no masses. Left ankle region slightly tender to palpation. Otherwise unremarkable. No pain with flexion and rotation of the hip. Neurovascular intact distally. Test Results: X-rays were negative. Emergency Department Course and Treatment: Patient has pain in her inguinal region. This sounds myofascial in nature. Her x-rays were unremarkable. She is not having GI, , or STRAP MACHINE OPERATOR AUTOMATIC symptoms. No vascular symptoms or findings. No history of trauma which would prompt further imaging for occult fractures. Will try medical therapy with naproxen and Flexeril. Will reassess. Patient had continued pain and was treated with [place]. She will be discharged on a course of [place]. Follow-up with primary care. Treatment Plan: As above Disposition: Discharge Impression: 1. Left inguinal pain This note was generated with [employer] dictation software. It may contain incorrect words, spelling, and punctuation that were not noted in review of the chart prior to signing ED Disposition - Plan for ED Patient: Referrals: Alfonso Carlson Chi, MD [Primary Care Provider] -
[2019-01-25] MEDS: cycloBENZAPRine HCl 10 MG Tablet PO (00:24)
[2019-01-25] MEDS: Naproxen 500 MG Tablet PO (00:24)
[2019-01-25] MEDS: HYDROcodone Bitartrate/Apap 5/325 Tablet PO (02:06)
--- NOTE | 2019-01-25 02:52 | ED.DEP ---
ED Disposition - Plan for ED Patient: Instructions: Hip Strain Prescriptions: Hydrocodone Bitart/Apap 5-325 [[place] 5MG-325MG] 1 tab PO Q6H PRN PRN 3 Days #10 tab PRN Reason: Pain Prescription Printed Referrals: Alfonso Carlson Chi, MD [Primary Care Provider] -
[2019-01-25 03:01] VITALS: BP 138/72; PULSE 80; RESP 15; O2SAT 96
== END 2019-01-25 03:02 | disposition home or self-care (01) ==
PROVIDERS: Emergency Provider Emergency Medicine; Family Provider Family Medicine Geriatric Medicine; PCP Family Medicine Geriatric Medicine
DX: R10.32 Left lower quadrant pain (principal); E11.9 Type 2 diabetes mellitus without complications
CPT/HCPCS: 73502; 99283

== ENCOUNTER → 2019-01-24 | Outpatient (CLI) | payer MEDICARE, SELFPAY ==
[2019-01-10 19:27] VITALS: BMI 21.9
--- NOTE | 2019-01-24 16:43 | RAD_ITS ---
STUDY: X-RAY - LUMBAR SPINE REASON FOR EXAM: Female, 68 years old. Pain. TECHNIQUE: 3 view(s) of the lumbar spine were obtained. COMPARISON: 12/07/2018. FINDINGS: Normal lumbar lordosis. There is no substantial scoliosis. There is a normal alignment of the vertebrae. There is generalized demineralization of the vertebral bodies. There is multi-level degenerative disc disease with multi-level disc space narrowing. There is no demonstrated fracture. Multilevel bilateral facet hypertrophy, more severe at L4-5 and L5-S1. There is atherosclerotic calcification of the abdominal aorta without a demonstrated aneurysm. RAD/Lumbar Spine 2 or 3 Views IMPRESSION: Diffuse osteopenia along with multilevel spondylosis/degenerative disease. No acute fracture or spondylolisthesis. Electronically Signed: Roula Flannery MD at 2:51 EDT , Service support ,
--- NOTE | 2019-01-24 16:43 | RAD_ITS ---
STUDY: X-RAY - PELVIS AND LEFT HIP REASON FOR EXAM: Female, 68 years old. Pain. TECHNIQUE: 3 views of the pelvis and hip. COMPARISON: None. FINDINGS: There is moderate fecal debris within the colon. Normal visualized soft tissue structures. There is narrowing with cortical sclerosis and osteophyte formation of the sacroiliac joint consistent with degenerative osteoarthritic changes. Normal bilateral superior and inferior pubic rami. There are degenerative changes of the pubic symphysis with articular narrowing and sclerosis. Normal bilateral ischial tuberosities. There are minimal osteoarthritic changes of the femoral head with marginal osteophyte formation. There is osteoarthritic spur formation of the acetabular rim. There is mild to moderate articular joint space narrowing of the hip. RAD/HIP, UNI W/ Pelvis 2-3 Views IMPRESSION: Left hip degenerative arthritis as described above. No acute fracture. Electronically Signed: Roula Flannery MD at 2:49 EDT , Service support ,
[2019-01-24 17:41] LABS: Absolute Lymphocyte Count 3.19 X10^3/uL (0.83-4.51); Basophil# 0.06 X10^3/uL; Basophil% 0.7 % (0-1); Eosinophil# 0.15 X10^3/uL; Eosinophils% 1.9 % (0-5); Hematocrit 43.1 % (37-47); Hemoglobin 15.1 g/dL (12.0-15.0); Lymphocyte # 3.19 X10^3/ul (4.0); Lymphocyte % 39.5 % (19-41); Mean Corpuscular Volume 91.3 fL (81-99); Mean Platelet Vol. 10.1 fl (6.2-12.0); Monocyte# 0.65 X10^3/uL; NRBC Flagged by Analyzer 0 % (0-5); Neutrophil # 4.02 X10^3/uL (2.7-7.7); Neutrophil % 49.8 % (47-70); Platelet Count 341 K/mm3 (150-450); RBC Distribution Width CV 12.9 % (11.6-14.6); RBC Distribution Width SD 43.4 fl (35.1-43.9); Red Blood Count 4.72 M/mm3 (4.2-5.4); White Blood Count 8.1 K/mm3 (4.4-11.0)
[2019-01-24 18:08] LABS: Vitamin D,25 Hydroxy 10.6 ng/mL (29.95-100.01)
[2019-01-24 18:19] LABS: ALB/GLOB Ratio 0.9 RATIO (0.9-2.4); AST(SGOT) 18 U/L (15-37); Alanine Aminotransfer ALT/SGPT 22 U/L (13-56); Albumin, Serum 3.3 g/dL (3.2-5.0); Alkaline Phosphatase 97 U/L (45-117); Anion Gap 9 (5-15); BUN 16 mg/dL (7-18); BUN/Creat Ratio 16.4 RATIO (10-20); Calcium,Total 9.1 mg/dL (8.5-10.1); Chloride 100 mmol/L (98-107); Creatinine, Serum 0.98 mg/dL (0.55-1.02); EST Glomerular Filtration Rate 60 mL/min (>60); Est Glom Filt Rate - Afr Amer 72 mL/min (>60); Globulin 3.7 g/dL (2.2-4.2); Glucose 369 mg/dL (74-106); Potassium 4.2 mmol/L (3.5-5.1); Sodium Level 133 mmol/L (136-145); Thyroid Stim Hormone (TSH) 3.41 uIU/mL (0.358-3.74)
== END | disposition home or self-care (01) ==
PROVIDERS: Family Provider Family Medicine Geriatric Medicine; PCP Family Medicine Geriatric Medicine; Referring Provider Family Medicine Geriatric Medicine; Visit Provider Family Medicine Geriatric Medicine
DX: E11.9 Type 2 diabetes mellitus without complications (principal); E55.9 Vitamin D deficiency, unspecified; I10 Essential (primary) hypertension; R10.32 Left lower quadrant pain; M54.6 Pain in thoracic spine; M79.609 Pain in unspecified limb
CPT/HCPCS: 36415; 72100; 73502; 80053; 82306; 84443; 85025

== ENCOUNTER 2019-03-06 13:32 | Inpatient (IN) | payer MEDICARE, SELFPAY ==
[2019-03-06] VITALS (23 sets, daily range): BP systolic 113–177; BP diastolic 42–91; PULSE 63–104; RESP 12–23; TEMP 36.5–36.9; O2SAT 95–99; BMI 22.6; BMI 22.7; BMI 22.8
--- NOTE | 2019-03-06 13:38 | EKG12_ITS ---
Test Reason : CP Blood Pressure : / mmHG Vent. Rate : 109 BPM Atrial Rate : 109 BPM P-R Int : 148 ms QRS Dur : 074 ms QT Int : 344 ms P-R-T Axes : 057 -29 042 degrees QTc Int : 463 ms Sinus tachycardia Moderate voltage criteria for LVH, may be normal variant Borderline ECG Confirmed by ANGIE BIRMINGHAM ([id number]), news copy editor MERVIN MENDEZ ([id number]) on 03/11/2019 9:25:03 AM Referred By: Beckie Crockett Confirmed By:ANGIE BIRMINGHAM
--- NOTE | 2019-03-06 13:39 | ED.DCSUM_ITS ---
History of Present Illness Chief Complaint: Chest Pain Informant: Patient Onset: Yesterday Context: Gradual Onset Timing: Intermittent Current Severity: Moderate Maximum Severity: Moderate Narrative: The patient is a 69-year-old female with history of hypertension and diabetes who presents to the department chest pain. She states that yesterday, she had a stressful day. She had been arguing with her . She states she began to have intermittent substernal chest heaviness. She was mildly nauseated. She states today, the pain had worsened. She states she is never had pain like this before. There is a strong family history of heart disease. She states she is never had a heart catheterization. She is otherwise been in her normal state of health. She is been compliant with her medications. Prior similar symptoms: No Recent Illness/Hospitalization: No Past Medical History - Allergies and Home Meds Allergies/Adverse Reactions: Allergies diphenhydramine [From Benadryl] Allergy (Verified 03/06/19 13:36) Other Primary Care Physician: Alfonso Carlson Chi, MD [Primary Care Provider] - Prior records reviewed: Yes Past Medical History: - - Diabetes, hypertension, family history of heart disease Surgical History: noncontributory Smoking Status: Never smoker Review of Systems General: Denies: Chills, Fever, Sweats Eyes: Denies: Visual changes - bilaterally, Diplopia ENT: Denies: Rhinorrhea, Sore throat Cardiovascular: Reports: Chest pain. Denies: Palpitations Respiratory: Denies: Dyspnea, Cough, Dyspnea on exertion Gastrointestinal: Reports: Nausea. Denies: Abdominal pain, Vomiting, Diarrhea, Melena, Hematochezia Genitourinary: Denies: Dysuria, Hematuria, Frequency Musculoskeletal: Denies: Back pain, Extremity Pain Skin: Denies: Rash, Wounds Neurological: Denies: Headache, Weakness, Numbness Physical Exam Vital Signs/Narrative: Vital Signs Temp Pulse Resp BP Pulse Ox 03/06/19 13:33 97.7 F L 104 H 23 H 177/80 H 97 Inital Vital Signs reviewed: Yes General: Well nourished, Well developed, No Acute Distress Head: Normocephalic, Atraumatic Eyes: Perrl, EOMI ENT: Moist mucous membranes, No rhinorrhea Neck: Supple, Nontender Cardiovascular: Regular rate, Regular rhythm, No murmurs Respiratory: No distress, CTA bilaterally, Chest nontender Abdomen: Soft, Nontender, Nondistended, Normal bowel sounds Back: Nontender, Normal Inspection Extremities: Nontender, No edema Skin: Normal color, No rash Neurological: Alert, Oriented x3, Cranial nerves II-XII grossly intact, Normal Strength, Normal Sensation Psychological: Normal affect, Normal Mood Diagnostic/Tx/Re-eval Clinical Impression(s) from Imaging Studies Chest X-Ray 03/06/19 13:40 IMPRESSION: No acute abnormality is seen. Electronically Signed: Al Thacker, at 14:22 EST , Service support , Abnormal Lab Results 03/06/19 03/06/19 03/06/19 13:40 13:40 13:40 WBC 12.0 H RBC 4.30 Hgb 13.9 Hct 40.0 MCV 93.0 MCH 32.3 H MCHC 34.8 RDW Std Deviation 43.2 RDW Coeff of Melvina 12.8 Plt Count 286 MPV 9.9 Immature Gran % (Auto) 0.300 Neut % (Auto) 74.8 H Lymph % (Auto) 19.7 Storey % (Auto) 5.0 Eos % (Auto) 0.0 Baso % (Auto) 0.2 Absolute Neuts (auto) 8.9 H Absolute Lymphs (auto) 2.36 Nucleated RBC % 0 Sodium 126 L Potassium 4.3 Chloride 95 L Carbon Dioxide 16.0 L Anion Gap 15 BUN 29 H Creatinine 1.55 H Estim Creat Clear Calc 26.71 Est GFR (MDRD) Af Amer 43 L Est GFR (MDRD) Non-Af 35 L BUN/Creatinine Ratio 18.7 Glucose 753 H* Calcium 9.5 Total Bilirubin Direct Bilirubin AST ALT Alkaline Phosphatase Troponin I < 0.015 Total Protein Albumin Globulin Lipase Urine Color Urine Clarity Urine pH Ur Specific Dema Urine Protein Urine Glucose (UA) Urine Ketones Urine Occult Blood Urine Nitrite Urine Bilirubin Urine Urobilinogen Ur Leukocyte Esterase Urine RBC Urine WBC Ur Squamous Epith Cells Urine Bacteria Urine Mucus Acetone Level NEGATIVE 03/06/19 03/06/19 03/06/19 13:40 13:40 15:00 WBC RBC Hgb Hct MCV MCH MCHC RDW Std Deviation RDW Coeff of Melvina Plt Count MPV Immature Gran % (Auto) Neut % (Auto) Lymph % (Auto) Storey % (Auto) Eos % (Auto) Baso % (Auto) Absolute Neuts (auto) Absolute Lymphs (auto) Nucleated RBC % Sodium Potassium Chloride Carbon Dioxide Anion Gap BUN Creatinine Estim Creat Clear Calc Est GFR (MDRD) Af Amer Est GFR (MDRD) Non-Af BUN/Creatinine Ratio Glucose Calcium Total Bilirubin 0.60 Direct Bilirubin 0.12 AST 18 ALT 26 Alkaline Phosphatase 85 Troponin I Total Protein 7.7 Albumin 4.1 Globulin 3.6 Lipase 1302 H Urine Color Yellow Urine Clarity Sl. Cloudy Urine pH 6.0 Ur Specific Dema 1.010 Urine Protein Negative Urine Glucose (UA) 1000 H Urine Ketones Negative Urine Occult Blood Negative Urine Nitrite Negative Urine Bilirubin Negative Urine Urobilinogen Normal Ur Leukocyte Esterase Negative Urine RBC 0 SEEN Urine WBC 0 SEEN Ur Squamous Epith Cells 0-5 SEEN Urine Bacteria 0 SEEN Urine Mucus 0 SEEN Acetone Level - Rhythm Strip Rhythm Strip: Sinus Rhythm Rate: 80 Ectopy: None - EKG Initial EKG Interpretation: Sinus Rhythm, No Acute Injury Pattern Prior: Unchanged - Medical Decision Making The patient presents with chest pain into her epigastrium. EKG was obtained on arrival. Was sinus rhythm without acute ischemia. IV was established. Patient was given nitro with some improvement. She was also given fluids. Screening labs do show significantly elevated glucose of 753. Anion gap is normal, bicarb is decreased. Serum ketones were negative. Patient was given 2 L of fluids. She was also found to have acute pancreatitis. She has no right upper quadrant pain. Liver functions are normal. At this point, I do feel the patient is going to require ICU care given her hyperglycemia requiring a drip. My suspicion is that this is a secondary cause of her pancreatitis. The patient was discussed with the hospitalist and will be admitted. Impression 1. HHS 2. Pancreatitis 3. Chest pain - Critical Care Time Critical care time (excluding procedures): 30-74 minutes, Discussing w/Patient &/or Family/Lineman Apprentice, Discussing w/Consultants, Arranging Admission or Transfer ED Disposition - Plan for ED Patient: Referrals: Alfonso Carlson Chi, MD [Primary Care Provider] -
--- NOTE | 2019-03-06 13:40 | RAD_ITS ---
STUDY: X-RAY CHEST REASON FOR EXAM: Female, 69 years old. Chest pain. TECHNIQUE: Single AP portable view of the chest. COMPARISON: Comparison is made with prior study dated May 10, 2018. FINDINGS: EKG electrodes are seen. Mild elevation of the right hemidiaphragm. Scattered calcified granulomas. No acute abnormality is seen. There is no demonstrated pleural abnormality. Normal size heart. Normal mediastinum and coco. Normal visualized pulmonary arteries. There is atherosclerotic calcification of the aortic arch with tortuosity. There are diffuse degenerative changes of the visualized thoracic spine. Normal visualized ribs, clavicles, and shoulders. There is no demonstrated abnormality of the visualized soft tissue structures of the upper abdomen. RAD/Chest 1 View (Portable) IMPRESSION: No acute abnormality is seen. Electronically Signed: Al Thacker, at 14:22 EST , Service support ,
[2019-03-06 13:47] LABS: Absolute Lymphocyte Count 2.36 X10^3/uL (0.83-4.51); Absolute Neutrophil Count 8.9 X10^3/uL (2.0-7.7); Basophil# 0.02 X10^3/uL; Basophil% 0.2 % (0-1); Hemoglobin 13.9 g/dL (12.0-15.0); Lymphocyte # 2.36 X10^3/ul (4.0); Lymphocyte % 19.7 % (19-41); Mean Corp Hgb Conc 34.8 g/dL (32-36); Mean Corpuscular Hgb 32.3 pg (27.0-32.0); Mean Platelet Vol. 9.9 fl (6.2-12.0); NRBC Flagged by Analyzer 0 % (0-5); Neutrophil # 8.94 X10^3/uL (2.7-7.7); Neutrophil % 74.8 % (47-70); Platelet Count 286 K/mm3 (150-450); RBC Distribution Width CV 12.8 % (11.6-14.6); RBC Distribution Width SD 43.2 fl (35.1-43.9)
[2019-03-06] MEDS: Ondansetron 4 MG/2 ML Vial IV (13:50)
[2019-03-06] MEDS: Aspirin 81 MG TAB.CHEW 324 MG PO (13:50)
[2019-03-06] MEDS: 0.9% Normal Saline 1,000 ML 150 ML IV ×3 (13:52→22:36)
[2019-03-06] MEDS: Nitroglycerin SL (ED/IMG/CATH) 0.4 MG TABLET SUBLINGUAL ×3 (13:52→14:05)
[2019-03-06 14:09] LABS: Anion Gap 15 (5-15); BUN 29 mg/dL (7-18); BUN/Creat Ratio 18.7 RATIO (10-20); Calcium,Total 9.5 mg/dL (8.5-10.1); Chloride 95 mmol/L (98-107); Creatinine, Serum 1.55 mg/dL (0.55-1.02); EST Glomerular Filtration Rate 35 mL/min (>60); Est Glom Filt Rate - Afr Amer 43 mL/min (>60); Estimated Creatinine Clearance 26.71 ml/min; Glucose 753 mg/dL (74-106); Potassium 4.3 mmol/L (3.5-5.1); Sodium Level 126 mmol/L (136-145)
[2019-03-06] MEDS: 0.9% Normal Saline 1,000 ML 999 ML IV ×2 (14:31→15:15)
[2019-03-06 15:04] LABS: Lipase 1302 U/L (73-393)
[2019-03-06 15:04] LABS: Bacteria 0 SEEN /hpf (None Seen); Mucous, Urine 0 SEEN /hpf (<or=2+); Red Blood Cells-Urine 0 SEEN /hpf (0-5); White Blood Cells 0 SEEN /hpf (0-5)
[2019-03-06 15:06] LABS: Color, Urine Yellow (Yellow); Glucose, Dipstick 1000 mg/dl (Normal); Ketone-Dipstick Negative (Negative); Leukocyte Esterase-Dipstick Negative /ul (Negative); Nitrite-Dipstick Negative (Negative); Occult Blood-Urine Negative /ul (Negative); Protein-Dipstick Negative (Negative); Urine Bilirubin Dipstick Negative (Negative); Urine Clarity Sl. Cloudy (Clear); Urine Urobilinogen Normal (Normal)
[2019-03-06 15:12] LABS: Squamous Epithelial Cells - UA 0-5 SEEN /hpf (5-10)
[2019-03-06] MEDS: Morphine 4 MG/ML Syringe IV ×2 (15:13→16:38)
[2019-03-06 15:22] LABS: AST(SGOT) 18 U/L (15-37); Alanine Aminotransfer ALT/SGPT 26 U/L (13-56); Albumin, Serum 4.1 g/dL (3.2-5.0); Alkaline Phosphatase 85 U/L (45-117); Bilirubin, Direct 0.12 mg/dL (0.00-0.30); Globulin 3.6 g/dL (2.2-4.2); Protein, Total 7.7 g/dL (6.4-8.2)
--- NOTE | 2019-03-06 15:37 | NURSING ---
DR HUGHES FOR DR JAUREGUI
--- NOTE | 2019-03-06 15:37 | NURSING ---
ICU PANCREATITIS, [facility]
[2019-03-06 15:40] LABS: Bedside Glucose > 500 mg/dL (70-110)
--- NOTE | 2019-03-06 15:45 | NURSING ---
[id number]
--- NOTE | 2019-03-06 15:57 | PCM.HP.STD ---
Problem List (1) Chest pain Status: Acute (2) Acute pancreatitis Status: Acute (3) Hyponatremia Status: Acute (4) Acute kidney injury Status: Acute (5) Hyperglycemic hyperosmolar state Status: Acute (6) Hyperlipidemia Status: Chronic (7) Hypertension Status: Chronic (8) Type 2 diabetes mellitus Status: Chronic History of Present Illness Date of Admission: 03/06/19 Chief Complaint: Chest pain. The patient is a 69 year old F patient with past medical history as mentioned above presented to the emergency room because of chest pain. Her symptoms started last night after she had a stressful day with conflicts with her . She started having lower sternal/epigastric pain since last night, sharp pain, constant, sometimes radiates to her back, 10 out of 10 in severity, associated with mild nausea without vomiting and without aggravating or relieving factors. This morning around 10 AM, her pain got worse and she decided to come to the emergency department. She denied associated shortness of breath or diaphoresis. She denied fever or chills. She denies syncope or presyncope. She mentioned that she ran out of her insulin over the last 2 days. In the emergency department, she was afebrile, slightly tachycardic, blood pressure was elevated and pulse ox was 97% on room air. Routine blood work was remarkable for mild leukocytosis, sodium of 126, serum bicarb 16, anion gap 15, BUN of 29 and creatinine of 1.55. Blood glucose is 753 mg/dL. LFT was unremarkable. Lipase was 1302. EKG revealed sinus tachycardia without evidence of acute ischemic changes or cardiac arrhythmias. Troponin was negative. Chest x-ray showed no acute findings. She is being admitted for hypoglycemic hyperosmolar state, acute pancreatitis, acute kidney injury, hyponatremia and chest pain. Past Medical History Past Medical History (Chronic Problems): Chronic Problems (Last Updated 02/22/19 @ 13:46 by Jocelyn Lincoln) Hyperlipidemia (Chronic) Hypertension (Chronic) Type 2 diabetes mellitus (Chronic) Medical History: Medical History (Last Updated 02/22/19 @ 13:46 by Jocelyn Lincoln) Arthritis M19.90 Back problem M53.9 Hormone deficiency E34.8 Hyperlipidemia E78.5 Seasonal allergies J30.2 Type 2 diabetes mellitus E11.9 HTN (hypertension) I10 Allergies diphenhydramine [From Benadryl] Allergy (Verified 03/06/19 13:36) Other Home Medications: Ambulatory Orders Medication Instructions Recorded atorvastatin 40 mg tablet 40 mg PO QHS tab 02/22/19 esomeprazole magnesium 20 mg 20 mg PO DAILY PRN PRN 02/22/19 capsule,delayed release lisinopril 2.5 mg tablet 2.5 mg PO DAILY 02/22/19 Aspirin E.C. [Ecotrin] 81 mg PO DAILY@199903/06/19 Doxycycline Hyclate 100 mg PO BID 03/06/19 Insulin Degludec [Tresiba 40 units SQ DAILY 03/06/19 Flextouch U-100] Liraglutide [Victoza] 40 unit SQ TID PRN PRN 03/06/19 Metoprolol Tartrate [Lopressor 50 mg PO BID 03/06/19 (Beta Huan)] Surgical History: - - section. Psychiatric History: No pertinent psych hx [employer]ELY [employer]PERATED VEHICLE History: No pertinent [employer]LE history Lives: Spouse/ Significant Other Smoking Status: Never smoker Alcohol: None Drugs: None - *Family History Maternal Family History: Family History (Last Updated 02/22/19 @ 13:47 by Jocelyn Lincoln) Unknown Breast cancer Colon cancer Diabetes Myocardial infarction Heart disease Hypertension Hyperlipidemia History Items: No pertinent history Paternal Family History: Family History (Last Updated 02/22/19 @ 13:47 by Jocelyn Lincoln) Unknown Breast cancer Colon cancer Diabetes Myocardial infarction Heart disease Hypertension Hyperlipidemia History Items: No pertinent history Review of Systems Constitutional: Reports: Anorexia. Denies: Chills, Fever, Weakness Eyes: Denies: Blurred vision, Double vision, Drainage, Redness HEENT: Denies: Difficulty Hearing, Dysphasia, Ear Pain, Eye Pain, Nasal Congestion, Sore Throat Cardiovascular: Reports: Chest Pain, Chest Pressure. Denies: Edema, Heaviness, Light Headedness, Palpitations, Paroxysmal Noc. Dyspnea, Syncope Respiratory: Denies: Cough, Pleuritic Pain, Shortness of Breath, Sputum production, Wheezing Gastrointestinal: Reports: Abdominal Pain, Diarrhea, Nausea. Denies: Constipation, Hematochezia, Melena, Vomiting Genitourinary: Denies: Dysuria, Frequency, Hematuria Musculoskeletal: Denies: Arm Pain, Back Pain, Foot Pain Skin: Denies: Dryness, Rash Neurological: Denies: Balance problems, Double vision, Change in Speech, Slurred speech, Confusion, Headaches, Incoordination, Numbness Psychiatric: Denies: Anxiety, Depression Endocrine: Denies: Change in Body Habitus, Polydipsia, Polyuria VTE Information - Inpt Only VTE Present on Admission: No VTE Mechan Device Prophylaxis: None VTE Pharm Prophylaxis ordered?: Yes Patient Problems: Active and Suspected Problems (Last Updated 02/22/19 @ 13:46 by Jocelyn Lincoln) Chest pain (Acute) Acute pancreatitis (Acute) Hyponatremia (Acute) Acute kidney injury (Acute) Hyperglycemic hyperosmolar state (Acute) - Physical Exam Vitals/I&O's: Vital Signs Temp Pulse Resp BP Pulse Ox 97.7 F L 89 16 166/84 H 98 03/06/19 13:33 03/06/19 15:09 03/06/19 15:09 03/06/19 15:09 03/06/19 15:09 Oxygen Flow Rate (L/min) 2 Oxygen Delivery Method Room Air Weight: 123 lb 14.397 oz Body Mass Index (BMI) 22.6 Finger Stick Blood Glucose 564 Intake and Output for Last 24 Hours 03/04/19 03/05/19 03/06/19 23:59 23:59 23:59 Intake Total 1000 / 1000 Balance 1000 / 1000 General: Alert, Oriented x3, Cooperative, No apparent distress, - - Tearful. HEENT: Atraumatic, PERRLA, EOMI, Normocephalic Oral: No Gingival or Mucosal Lesions/ Ulcerations, Dry Mucosa Neck: Supple, No JVD, Negative Carotid Bruits, Trachea Midline, Thyroid Normal Size and Texture Lungs: Clear to auscultation, Normal air movement, No rhonchi, No wheeze, No rales, Diminished Cardiovascular: Regular rate, Regular Rhythm, Normal S1, Normal S2, PMI Normal, Tachycardic Abdomen: Bowel Sounds Present, Soft, Non-Distended, No Hepato-splenomegaly, Tender - Epigastric tenderness, no guarding or rigidity. Extremities: No clubbing, No cyanosis, No edema Skin: No rashes, No breakdown Lymphatic: No Cervical, Supraclavicular, or Inguinal Adenopathy Neurological: Cranial nerves II-XII grossly intact, Motor Exam 5/5 strength throughout Psych/Mental Status: Normal Affect, Appropriate, Alert and oriented to time, place, person, mood and affect Laboratory Results 03/06/19 13:40: WBC 12.0 H, RBC 4.30, Hgb 13.9, Hct 40.0, MCV 93.0, MCH 32.3 H, MCHC 34.8, RDW Std Deviation 43.2, RDW Coeff of [place] 12.8, Plt Count 286, MPV 9.9, Immature Gran % (Auto) 0.300, Neut % (Auto) 74.8 H, Lymph % (Auto) 19.7, [place] % (Auto) 5.0, Eos % (Auto) 0.0, Baso % (Auto) 0.2, Absolute Neuts (auto) 8.9 H, Absolute Lymphs (auto) 2.36, Nucleated RBC % 0 03/06/19 13:40: Sodium 126 L, Potassium 4.3, Chloride 95 L, Carbon Dioxide 16.0 L, Anion Gap 15, BUN 29 H, Creatinine 1.55 H, Estim Creat Clear Calc 26.71, Est GFR (MDRD) Af Amer 43 L, Est GFR (MDRD) Non-Af 35 L, BUN/Creatinine Ratio 18.7, Glucose 753 H*, Calcium 9.5, Troponin I < 0.015 03/06/19 13:40: Acetone Level NEGATIVE 03/06/19 13:40: Total Bilirubin 0.60, Direct Bilirubin 0.12, AST 18, ALT 26, Alkaline Phosphatase 85, Total Protein 7.7, Albumin 4.1, Globulin 3.6 03/06/19 13:40: Lipase 1302 H 03/06/19 15:00: Urine Color Yellow, Urine Clarity Sl. Cloudy, Urine pH 6.0, Ur Specific [place] 1.010, Urine Protein Negative, Urine Glucose (UA) 1000 H, Urine Ketones Negative, Urine Occult Blood Negative, Urine Nitrite Negative, Urine Bilirubin Negative, Urine Urobilinogen Normal, Ur Leukocyte Esterase Negative, Urine RBC 0 SEEN, Urine WBC 0 SEEN, Ur Squamous Epith Cells 0-5 SEEN, Urine Bacteria 0 SEEN, Urine Mucus 0 SEEN 03/06/19 15:18: POC Glucose > 500 H* Clinical Impression(s) from Imaging Studies Chest X-Ray 03/06/19 13:40 IMPRESSION: No acute abnormality is seen. Electronically Signed: Al Thacker, at 14:22 EST , Service support , Current Medications Dextrose (D50w Syringe) 0 gm IV X1 PRN; Protocol PRN Reason: Hypoglycemia Protocol Sodium Chloride () 1,000 mls @ 150 mls/hr IV .[id number] [facility] Last Admin: 03/06/19 13:52 Dose: 150 mls/hr Documented by: Sodium Chloride () 1,000 mls @ 999 mls/hr IV .Q1H1M [facility] Stop: 03/06/19 16:20 Last Admin: 03/06/19 15:15 Dose: 999 mls/hr Documented by: Insulin Human Lispro 100 unit/ (Sodium Chloride) 100 mls @ 2.81 mls/hr IV .[id number] [facility]; Protocol Last Admin: 03/06/19 15:34 Dose: 2.8 unit/hr, 2.8 mls/hr Documented by: Sodium Chloride () 10 - 40 ml IV UD PRN PRN Reason: SALINE FLUSH Assessment/Plan All Active Problems (Last Updated 02/22/19 @ 13:46 by Jocelyn Lincoln) Chest pain (Acute) Acute pancreatitis (Acute) Hyponatremia (Acute) Acute kidney injury (Acute) Hyperglycemic hyperosmolar state (Acute) This is a 69 years old female patient presented to the emergency room because of lower sternal/epigastric pain and she was found to have findings consistent with hyperosmolar hyperglycemic state, acute pancreatitis, acute kidney injury with hyponatremia. #1 hyperglycemic hyperosmolar state: Blood sugar 753, carbon dioxide is 16 and anion gap is 15. It is probably due to noncompliance, patient ran out of insulin for the last couple of days in addition to stress and turmoil that she had with her . Chest x-ray showed no acute findings. Urinalysis showed no evidence of acute cystitis. Plan: Admit to ICU, critical care monitoring, n.p.o., IV fluids, start IV insulin drip, IV morphine PRN for pain, IV antiemetics PRN, IV Pepcid twice daily, critical care consult, repeat CBC and BMP tomorrow morning, PT OT evaluation and treatment. #2 acute kidney injury/hyponatremia: Secondary to #1. Baseline kidney function is normal. On admission, BUN was 29 and creatinine was 1.55. Serum sodium is 126 which is likely due to hyperglycemia. Corrected sodium for glucose is 136 mEq/L. Plan for IV fluids, input output chart, repeat BMP later today, repeat BMP tomorrow morning. #3 acute pancreatitis: Could be due to Victoza or statins but patient has been taking those for a long time. Plan: N.p.o., IV fluids, IV morphine PRN for pain, IV antiemetics, IV Pepcid twice daily, repeat lipase tomorrow morning. #4 chest pain: It is probably due to the acute pancreatitis. EKG revealed sinus tachycardia, no acute ischemic changes. Troponin is negative. Plan: Serial enzymes, repeat EKG tomorrow morning. At this time, I do not think that we need to do any further cardiac work-up unless there is change in her cardiac enzymes or change in the EKG. #5 type 2 diabetes mellitus: Run out of insulin 2 days ago. Now, she is in HHS, on insulin drip. Plan to hold all medications, continue insulin drip, check hemoglobin A1c. #6 hypertension: Blood pressure slightly elevated, continue metoprolol, hold lisinopril, start IV hydralazine PRN. #7 hyperlipidemia: Hold statins for now. #8 DVT prophylaxis: Subcu Lovenox. This note was generated with adflyer dictation software. It may contain incorrect words, spelling, and punctuation that were not noted in checking the note before signing. Code Visit Inpatient E&M: 04203 Init Hosp L3
[2019-03-06 16:40] LABS: Bedside Glucose 446 mg/dL (70-110)
[2019-03-06] MEDS: hydrALAZINE 20 MG/ML Vial 10 MG IV (17:26)
[2019-03-06 17:41] LABS: Bedside Glucose 397 mg/dL (70-110)
[2019-03-06 18:41] LABS: Bedside Glucose 337 mg/dL (70-110)
[2019-03-06] MEDS: Enoxaparin 30 MG/0.3 ML Syringe SC (18:55)
[2019-03-06 19:36] LABS: Bedside Glucose 290 mg/dL (70-110)
[2019-03-06 20:36] LABS: Bedside Glucose 223 mg/dL (70-110)
[2019-03-06] MEDS: Morphine 2 MG/ML Syringe IV ×2 (20:36→21:40)
[2019-03-06 21:12] LABS: Anion Gap 10 (5-15); BUN 22 mg/dL (7-18); BUN/Creat Ratio 20.8 RATIO (10-20); Calcium,Total 9.1 mg/dL (8.5-10.1); Chloride 108 mmol/L (98-107); Creatinine, Serum 1.06 mg/dL (0.55-1.02); EST Glomerular Filtration Rate 55 mL/min (>60); Est Glom Filt Rate - Afr Amer 66 mL/min (>60); Estimated Creatinine Clearance 39.06 ml/min; Glucose 266 mg/dL (74-106); Potassium 3.4 mmol/L (3.5-5.1); Sodium Level 137 mmol/L (136-145)
[2019-03-06] MEDS: Metoprolol Tartrate 50 MG Tablet PO (21:42)
[2019-03-06] MEDS: Famotidine 200 MG/20 ML MDV 20 MG in 0.9% Normal Saline (Pres. free 8 ML 300 MG IV (21:46)
[2019-03-06 21:55] LABS: Bedside Glucose 197 mg/dL (70-110)
[2019-03-06 22:45] LABS: Bedside Glucose 165 mg/dL (70-110)
[2019-03-06 23:53] LABS: Anion Gap 6 (5-15); BUN 19 mg/dL (7-18); BUN/Creat Ratio 25.1 RATIO (10-20); Calcium,Total 8.8 mg/dL (8.5-10.1); Chloride 111 mmol/L (98-107); Creatinine, Serum 0.76 mg/dL (0.55-1.02); EST Glomerular Filtration Rate 80 mL/min (>60); Est Glom Filt Rate - Afr Amer 97 mL/min (>60); Glucose 158 mg/dL (74-106); Potassium 3.9 mmol/L (3.5-5.1); Sodium Level 140 mmol/L (136-145)
[2019-03-07] VITALS (17 sets, daily range): BP systolic 118–169; BP diastolic 42–85; PULSE 54–68; RESP 8–20; TEMP 36.7–36.8; O2SAT 95–98
[2019-03-07 05:22] LABS: Absolute Lymphocyte Count 3.25 X10^3/uL (0.83-4.51); Absolute Neutrophil Count 7.8 X10^3/uL (2.0-7.7); Basophil# 0.03 X10^3/uL; Basophil% 0.3 % (0-1); Eosinophil# 0.04 X10^3/uL; Eosinophils% 0.3 % (0-5); Hematocrit 37.8 % (37-47); Hemoglobin 12.9 g/dL (12.0-15.0); Lymphocyte # 3.25 X10^3/ul (4.0); Lymphocyte % 27.4 % (19-41); Mean Corp Hgb Conc 34.1 g/dL (32-36); Mean Corpuscular Hgb 31.6 pg (27.0-32.0); Mean Corpuscular Volume 92.6 fL (81-99); Mean Platelet Vol. 9.5 fl (6.2-12.0); Monocyte# 0.73 X10^3/uL; Monocyte% 6.2 % (0-10); NRBC Flagged by Analyzer 0 % (0-5); Neutrophil # 7.75 X10^3/uL (2.7-7.7); Neutrophil % 65.3 % (47-70); Platelet Count 243 K/mm3 (150-450); Red Blood Count 4.08 M/mm3 (4.2-5.4); White Blood Count 11.9 K/mm3 (4.4-11.0)
[2019-03-07] MEDS: 0.9% Normal Saline 1,000 ML 150 ML IV (05:23)
[2019-03-07 05:42] LABS: AST(SGOT) 12 U/L (15-37); Alanine Aminotransfer ALT/SGPT 21 U/L (13-56); Albumin, Serum 2.9 g/dL (3.2-5.0); Alkaline Phosphatase 52 U/L (45-117); Anion Gap 6 (5-15); BUN 15 mg/dL (7-18); BUN/Creat Ratio 22.5 RATIO (10-20); Calcium,Total 8.3 mg/dL (8.5-10.1); Chloride 109 mmol/L (98-107); Creatinine, Serum 0.67 mg/dL (0.55-1.02); EST Glomerular Filtration Rate 93 mL/min (>60); Est Glom Filt Rate - Afr Amer 112 mL/min (>60); Globulin 3.2 g/dL (2.2-4.2); Glucose 160 mg/dL (74-106); Lipase 115 U/L (73-393); Potassium 3.6 mmol/L (3.5-5.1); Protein, Total 6.1 g/dL (6.4-8.2); Sodium Level 138 mmol/L (136-145)
--- NOTE | 2019-03-07 05:55 | EKG12_ITS ---
Test Reason : AM EKG Blood Pressure : / mmHG Vent. Rate : 061 BPM Atrial Rate : 061 BPM P-R Int : 118 ms QRS Dur : 076 ms QT Int : 446 ms P-R-T Axes : 008 -25 047 degrees QTc Int : 448 ms Normal sinus rhythm Nonspecific T wave abnormality Abnormal ECG When compared with ECG of 06-MAR-2019 13:37, MANUAL COMPARISON REQUIRED, DATA IS UNCONFIRMED Confirmed by ANGIE BIRMINGHAM ([id number]), commissioning editor MERVIN MENDEZ ([id number] on 03/11/2019 10:52:48 AM Referred By: Beckie Crockett Confirmed By:ANGIE BIRMINGHAM
[2019-03-07 06:46] LABS: Bedside Glucose 140 mg/dL (70-110)
--- NOTE | 2019-03-07 07:17 | CON.PCM_ITS ---
Problem List (1) Acute pancreatitis Status: Acute Qualifiers: Pancreatitis type: idiopathic Acute pancreatitis complication: no infection or necrosis Qualified Code(s): K85.00 - Idiopathic acute pancreatitis without necrosis or infection (2) Acute kidney injury Status: Acute (3) Hyperglycemic hyperosmolar state Status: Acute (4) Hyperlipidemia Status: Chronic (5) Hypertension Status: Chronic (6) Type 2 diabetes mellitus Status: Chronic Reason for Consult Date of Consultation: 03/07/19 Reason for Consultation: Hyperglycemia History of Present Illness: The patient is a 69 year old F, with past medical history listed below, who presented to [facility] on 03/06/2019 secondary to chest pain. Patient had reported increased stress on the day prior to presentation, but started having intermittent substernal chest heaviness and mild nausea. Patient states the pain did worsen so she had come in to be evaluated. Patient does have a family history of heart disease, but is never had a heart catheterization herself. Patient reportedly was compliant with medications. In the ER, EKG was unremarkable. Patient was given nitro with some improvement. Laboratory work-up showed a glucose of 753 with a normal anion gap and patient was given 2 L of IV fluids. Patient also found to have acute pancreatitis with a lipase over 1000. Patient was placed on an insulin drip and admitted to the intensive care unit for further evaluation. Overnight, patient was on an insulin drip. Patient did not have any hemodynamic instability. This has been discontinued overnight. Patient reports she is back to baseline at this time. Her abdominal pain is completely resolved. Patient is not reporting any nausea or vomiting. Patient states I feel good enough to go home. Patient does state that her blood sugars have been more variable lately. Patient states that she received a steroid shot approximately 3 to 4 weeks ago for back pain with significant improvement of back pain, but blood sugars were uncontrollable. Patient states she is never seen an glove turner. Patient does not give any history of previous pancreatitis. Patient denies any recent change in medications. Patient has not reported any nausea or pain associated with eating fatty foods. Patient does still have her gallbladder. Review of systems otherwise negative from a constitutional, HEENT, respiratory, cardiovascular, GI, genitourinary, musculoskeletal, skin, neurologic, psychiatric and hematologic system unless stated above. Past Medical History Past Medical History (Chronic Problems): Chronic Problems (Last Updated 02/22/19 @ 13:46 by Jocelyn Lincoln) Hyperlipidemia (Chronic) Hypertension (Chronic) Type 2 diabetes mellitus (Chronic) Medical History: Medical History (Last Updated 02/22/19 @ 13:46 by Jocelyn Lincoln) Arthritis M19.90 Back problem M53.9 Hormone deficiency E34.8 Hyperlipidemia E78.5 Seasonal allergies J30.2 Type 2 diabetes mellitus E11.9 HTN (hypertension) I10 Allergies diphenhydramine [From Benadryl] Allergy (Verified 03/06/19 16:30) Swelling Home Medications: Ambulatory Orders Medication Instructions Recorded lisinopril 2.5 mg tablet 2.5 mg PO DAILY 02/22/19 Aspirin E.C. [Ecotrin] 81 mg PO DAILY@199903/06/19 Doxycycline Hyclate 100 mg PO BID 03/06/19 Metoprolol Tartrate [Lopressor 50 mg PO BID 03/06/19 (beta huan)] Atorvastatin Calcium 80 mg PO QHS #30 tab 03/07/19 Insulin Degludec [Tresiba 50 units SQ BID #1 insuln.pen 03/07/19 Flextouch U-100] Pantoprazole Sodium [Protonix] 20 mg PO BID #60 tab 03/07/19 Surgical History: - - section. 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 Lives: Spouse/ Significant Other Smoking Status: Never smoker Alcohol: None Drugs: None - *Family History Maternal Family History: Family History (Last Updated 02/22/19 @ 13:47 by Jocelyn Lincoln) Unknown Breast cancer Colon cancer Diabetes Myocardial infarction Heart disease Hypertension Hyperlipidemia History Items: No pertinent history Paternal Family History: Family History (Last Updated 02/22/19 @ 13:47 by Jocelyn Lincoln) Unknown Breast cancer Colon cancer Diabetes Myocardial infarction Heart disease Hypertension Hyperlipidemia History Items: No pertinent history Review of Systems Comment: See HPI Patient Problems: Active and Suspected Problems (Last Updated 02/22/19 @ 13:46 by Jocelyn Lincoln) Chest pain (Acute) Acute pancreatitis (Acute) Hyponatremia (Acute) Acute kidney injury (Acute) Hyperglycemic hyperosmolar state (Acute) Objective: Chest x-ray was reviewed and no abnormalities were noted. - Physical Exam Vitals/I&O's: Vital Signs Temp Pulse Resp BP Pulse Ox 36.7 C 61 16 125/52 H 96 03/07/19 01:00 03/07/19 03:36 03/07/19 03:00 03/07/19 03:00 03/07/19 03:00 Oxygen Flow Rate (L/min) 2 Oxygen Delivery Method Room Air Weight: 56.8 kg Body Mass Index (BMI) 22.8 Finger Stick Blood Glucose 165 Intake and Output for Last 24 Hours 03/05/19 03/06/19 03/07/19 23:59 23:59 23:59 Intake Total 3813.51 / 3913.51 1100 / 1100 Output Total 600 / 1800 1200 / 1200 Balance 3213.51 / 2113.51 -100 / -100 General: Alert, Oriented x3, Cooperative, No apparent distress, Well developed, Well nourished, - - No conversational dyspnea. HEENT: Atraumatic, PERRLA, EOMI, Normocephalic, - - No scleral icterus or injection noted Oral: Moist Mucosa, No Gingival or Mucosal Lesions/ Ulcerations Neck: Supple, No JVD, No Nodes, Trachea Midline Lungs: Clear to auscultation, Normal air movement, No rhonchi, No wheeze, No rales Cardiovascular: Regular rate, Regular Rhythm, Normal S1, Normal S2, No murmurs, No rub noted, No Gallop Abdomen: Bowel Sounds Present, Soft, Non Tender, Non-Distended Extremities: No clubbing, No cyanosis, No edema, Capillary Refill Less than 3 Seconds Skin: No rashes, No breakdown Musculoskeletal: No Tenderness to Palpation of Joints or Extremities Lymphatic: No Cervical, Supraclavicular, or Inguinal Adenopathy Neurological: Cranial nerves II-XII grossly intact, Neuro grossly intact, Motor Exam 5/5 strength throughout Psych/Mental Status: Alert and oriented to time, place, person, mood and affect Laboratory Results 03/06/19 13:40: WBC 12.0 H, RBC 4.30, Hgb 13.9, Hct 40.0, MCV 93.0, MCH 32.3 H, MCHC 34.8, RDW Std Deviation 43.2, RDW Coeff of Melvina 12.8, Plt Count 286, MPV 9.9, Immature Gran % (Auto) 0.300, Neut % (Auto) 74.8 H, Lymph % (Auto) 19.7, [place] % (Auto) 5.0, Eos % (Auto) 0.0, Baso % (Auto) 0.2, Absolute Neuts (auto) 8.9 H, Absolute Lymphs (auto) 2.36, Nucleated RBC % 0 03/06/19 13:40: Sodium 126 L, Potassium 4.3, Chloride 95 L, Carbon Dioxide 16.0 L, Anion Gap 15, BUN 29 H, Creatinine 1.55 H, Estim Creat Clear Calc 26.71, Est GFR (MDRD) Af Amer 43 L, Est GFR (MDRD) Non-Af 35 L, BUN/Creatinine Ratio 18.7, Glucose 753 H*, Calcium 9.5, Troponin I < 0.015 03/06/19 13:40: Acetone Level NEGATIVE 03/06/19 13:40: Total Bilirubin 0.60, Direct Bilirubin 0.12, AST 18, ALT 26, Alkaline Phosphatase 85, Total Protein 7.7, Albumin 4.1, Globulin 3.6 03/06/19 13:40: Lipase 1302 H 03/06/19 15:00: Urine Color Yellow, Urine Clarity Sl. Cloudy, Urine pH 6.0, Ur Specific [place] 1.010, Urine Protein Negative, Urine Glucose (UA) 1000 H, Urine Ketones Negative, Urine Occult Blood Negative, Urine Nitrite Negative, Urine Bilirubin Negative, Urine Urobilinogen Normal, Ur Leukocyte Esterase Negative, Urine RBC 0 SEEN, Urine WBC 0 SEEN, Ur Squamous Epith Cells 0-5 SEEN, Urine Bacteria 0 SEEN, Urine Mucus 0 SEEN 03/06/19 15:18: POC Glucose > 500 H* 03/06/19 16:29: POC Glucose 446 H 03/06/19 17:32: POC Glucose 397 H 03/06/19 17:55: Troponin I < 0.015 03/06/19 18:32: POC Glucose 337 H 03/06/19 19:29: POC Glucose 290 H 03/06/19 20:15: Sodium 137, Potassium 3.4 L, Chloride 108 H, Carbon Dioxide 19.0 L, Anion Gap 10, BUN 22 H, Creatinine 1.06 H, Estim Creat Clear Calc 39.06, Est GFR (MDRD) Af Amer 66, Est GFR (MDRD) Non-Af 55 L, BUN/Creatinine Ratio 20.8 H, Glucose 266 H, Calcium 9.1, Troponin I < 0.015 03/06/19 20:31: POC Glucose 223 H 03/06/19 21:38: POC Glucose 197 H 03/06/19 22:32: POC Glucose 165 H 03/06/19 23:20: Sodium 140, Potassium 3.9, Chloride 111 H, Carbon Dioxide 23.0, Anion Gap 6, BUN 19 H, Creatinine 0.76, Estim Creat Clear Calc 41.40, Est GFR (MDRD) Af Amer 97, Est GFR (MDRD) Non-Af 80, BUN/Creatinine Ratio 25.1 H, Glucose 158 H, Calcium 8.8 03/07/19 05:00: WBC 11.9 H, RBC 4.08 L, Hgb 12.9, Hct 37.8, MCV 92.6, MCH 31.6, MCHC 34.1, RDW Std Deviation 44.0 H, RDW Coeff of Melvina 13.0, Plt Count 243, MPV 9.5, Immature Gran % (Auto) 0.500, Neut % (Auto) 65.3, Lymph % (Auto) 27.4, [place] % (Auto) 6.2, Eos % (Auto) 0.3, Baso % (Auto) 0.3, Absolute Neuts (auto) 7.8 H, Absolute Lymphs (auto) 3.25, Nucleated RBC % 0 03/07/19 05:00: Sodium 138, Potassium 3.6, Chloride 109 H, Carbon Dioxide 23.0, Anion Gap 6, BUN 15, Creatinine 0.67, Estim Creat Clear Calc 41.40, Est GFR (MDRD) Af Amer 112, Est GFR (MDRD) Non-Af 93, BUN/Creatinine Ratio 22.5 H, Glucose 160 H, Calcium 8.3 L, Total Bilirubin 0.50, Direct Bilirubin 0.10, AST 1 2 L, ALT 21, Alkaline Phosphatase 52, Total Protein 6.1 L, Albumin 2.9 L, Globulin 3.2, Lipase 115 03/07/19 06:41: POC Glucose 140 H Clinical Impression(s) from Imaging Studies Chest X-Ray 03/06/19 13:40 IMPRESSION: No acute abnormality is seen. Electronically Signed: Al Thacker, at 14:22 EST , Service support , Current Medications Acetaminophen (Tylenol) 650 mg PO Q6H PRN PRN PRN Reason: Pain Score 1-3/Temp > 100.7 F Aspirin (Ecotrin) 81 mg PO DAILY@2000 [facility] Dextrose (D50w Syringe) 0 gm IV X1 PRN; Protocol PRN Reason: Hypoglycemia Enoxaparin Sodium (Lovenox) 30 mg SC DAILY [facility] Last Admin: 03/06/19 18:55 Dose: 30 mg Documented by: Glucagon () 1 mg IM .X1 PRN PRN Reason: Hypoglycemia Hydralazine HCl (Apresoline Iv) 10 mg IV Q8H PRN PRN PRN Reason: for SBP>160 Last Admin: 03/06/19 17:26 Dose: 10 mg Documented by: Insulin Human Lispro 100 unit/ (Sodium Chloride) 100 mls @ 2.81 mls/hr IV .[id number] [facility]; Protocol Last Titration: 03/06/19 22:30 Dose: 0 unit/hr, 0 mls/hr Documented by: Sodium Chloride () 1,000 mls @ 150 mls/hr IV .Q6H40M [facility] Last Admin: 03/07/19 05:23 Dose: 150 mls/hr Documented by: Famotidine 20 mg/ Sodium (Chloride) 10 mls @ 300 mls/hr IV Q24 [facility] Last Infusion: 03/06/19 21:48 Dose: Infused Documented by: Insulin Human Lispro (Humalog Kwikpen (Bkc)) 0 unit SC ACHS [facility]; Protocol Metoprolol Tartrate (Lopressor (Beta Huan)) 50 mg PO BID [facility] Last Admin: 03/06/19 21:42 Dose: 50 mg Documented by: Morphine Sulfate () 4 mg IV Q2H PRN PRN PRN Reason: Pain Score 6-10/10 Ondansetron HCl (Zofran) 4 mg IV Q8H PRN PRN PRN Reason: NAUSEA/VOMITING Assessment/Plan Active and Suspected Problems (Last Updated 02/22/19 @ 13:46 by Jocelyn Lincoln) Chest pain (Acute) Acute pancreatitis (Acute) Hyponatremia (Acute) Acute kidney injury (Acute) Hyperglycemic hyperosmolar state (Acute) RECOMMENDATIONS: 1. Initiate p.o. challenge 2. Consider outpatient referral to endocrinology 3. Consider outpatient evaluation for gallstone/cholecystitis 4. Hemodynamically stable on room air. Will sign off from a critical care perspective IMPRESSIONS: 1. Hyperosmolar nonketotic state/diabetes mellitus type 2 Patient presented with elevated blood sugars responding well to insulin d rip. Patient should be given a p.o. challenge this morning. Given patient's reported difficulty with control, outpatient referral to endocrinology could be considered. Patient appears to be in an acceptable range at this time. Patient reportedly had run out of insulin 2 days prior to presentation. 2. Acute kidney injury/pseudohyponatremia Likely secondary to #1. Patient has responded well to aggressive fluid resuscitation. Sodium is within normal limits. Good urine output noted. 3. Acute pancreatitis Unclear etiology. Patient is on Victoza at baseline, but has been on this for quite some time. No new medications are noted. Patient does have her gallbladder, so gallstone pancreatitis would be a consideration. Patient r eportedly had run out of insulin 2 days ago, so pancreatitis may be secondary to protracted hyperglycemia. Do not believe that a gallbladder work-up would be indicated as an inpatient as lipase has made it back to normal. 4. Hypertension/hyperlipidemia/advanced age Complicates care, management, recovery and prognosis. Code Visit Inpatient E&M: 38614 Init Hosp L2
--- NOTE | 2019-03-07 08:02 | PN_ITS ---
Patient Problems: Active and Suspected Problems (Last Updated 02/22/19 @ 13:46 by Jocelyn Lincoln) Chest pain (Acute) Acute pancreatitis (Acute) Hyponatremia (Acute) Acute kidney injury (Acute) Hyperglycemic hyperosmolar state (Acute) Subjective: Patient had complete resolution of epigastric discomfort overnight with improvement of blood sugars and transition off insulin drip. Repeat lipase this morning normalized. Patient very eager for diet but understands additional work-up needed for pancreatitis. Discussed that this may be secondary to recent failed use of her insulin regimen as she notes that the insurance would not pay until the of this month for unclear reason however she does describe some symptoms consistent with biliary colic and amenable to having gallbladder ultrasound done. Patient denies fevers, chills, nausea, emesis, recurrent or worsened abdominal pain, chest pain or dyspnea. Objective: Physical Examination: General: awake, alert, oriented x 3 and cooperative, seated upright at the ICU bedside, no acute distress. Skin: normal color, turgor, no icterus, cyanosis. HEENT: AT/NC, EOMI, PERRLA, MMM. Lungs: CTA bilaterally, moderate effort, mild decrease BL bases, no rales, ronchi or wheezing. Heart: Regular rate and rhythm; no gallop, rub audible. Abdomen: soft, NTTP, resolved epigastric pain, no right upper quadrant pain or rebound, ND, normal BS, no HSM. Extremities: no cyanosis, clubbing, or edema. Neurological: patient awake, alert, oriented x 3; cognitive function intact; pupils equally reactive to light and accomodation; cranial nerves II-XII grossly normal, moving all 4 extremities, no focal deficits, strength improved, mildly globally Gina secondary to recent presentation. Psychiatric: affect appears improved, normal, no acute evidence of depressive or anxiety feelings. Vitals/I&O's: Vital Signs Temp Pulse Resp BP Pulse Ox 98.1 F 62 20 H 155/71 H 97 03/07/19 04:00 03/07/19 07:00 03/07/19 07:00 03/07/19 07:00 03/07/19 07:00 Oxygen Flow Rate (L/min) 2 Oxygen Delivery Method Room Air Weight: 125 lb 3.561 oz Body Mass Index (BMI) 22.8 Finger Stick Blood Glucose 165 Intake and Output for Last 24 Hours 03/05/19 03/06/19 03/07/19 23:59 23:59 23:59 Intake Total 3813.51 / 3913.51 1100 / 1100 Output Total 600 / 1800 1400 / 1400 Balance 3213.51 / 2113.51 -300 / -300 Laboratory Results 03/06/19 13:40: WBC 12.0 H, RBC 4.30, Hgb 13.9, Hct 40.0, MCV 93.0, MCH 32.3 H, MCHC 34.8, RDW Std Deviation 43.2, RDW Coeff of Melvina 12.8, Plt Count 286, MPV 9.9, Immature Gran % (Auto) 0.300, Neut % (Auto) 74.8 H, Lymph % (Auto) 19.7, [place] % (Auto) 5.0, Eos % (Auto) 0.0, Baso % (Auto) 0.2, Absolute Neuts (auto) 8.9 H, Absolute Lymphs (auto) 2.36, Nucleated RBC % 0 03/06/19 13:40: Sodium 126 L, Potassium 4.3, Chloride 95 L, Carbon Dioxide 16.0 L, Anion Gap 15, BUN 29 H, Creatinine 1.55 H, Estim Creat Clear Calc 26.71, Est GFR (MDRD) Af Amer 43 L, Est GFR (MDRD) Non-Af 35 L, BUN/Creatinine Ratio 18.7, Glucose 753 H*, Calcium 9.5, Troponin I < 0.015 03/06/19 13:40: Acetone Level NEGATIVE 03/06/19 13:40: Total Bilirubin 0.60, Direct Bilirubin 0.12, AST 18, ALT 26, Alkaline Phosphatase 85, Total Protein 7.7, Albumin 4.1, Globulin 3.6 03/06/19 13:40: Lipase 1302 H 03/06/19 15:00: Urine Color Yellow, Urine Clarity Sl. Cloudy, Urine pH 6.0, Ur Specific [place] 1.010, Urine Protein Negative, Urine Glucose (UA) 1000 H, Urine Ketones Negative, Urine Occult Blood Negative, Urine Nitrite Negative, Urine Bilirubin Negative, Urine Urobilinogen Normal, Ur Leukocyte Esterase Negative, Urine RBC 0 SEEN, Urine WBC 0 SEEN, Ur Squamous Epith Cells 0-5 SEEN, Urine Bacteria 0 SEEN, Urine Mucus 0 SEEN 03/06/19 15:18: POC Glucose > 500 H* 03/06/19 16:29: POC Glucose 446 H 03/06/19 17:32: POC Glucose 397 H 03/06/19 17:55: Troponin I < 0.015 03/06/19 18:32: POC Glucose 337 H 03/06/19 19:29: POC Glucose 290 H 03/06/19 20:15: Sodium 137, Potassium 3.4 L, Chloride 108 H, Carbon Dioxide 19.0 L, Anion Gap 10, BUN 22 H, Creatinine 1.06 H, Estim Creat Clear Calc 39.06, Est GFR (MDRD) Af Amer 66, Est GFR (MDRD) Non-Af 55 L, BUN/Creatinine Ratio 20.8 H, Glucose 266 H, Calcium 9.1, Troponin I < 0.015 03/06/19 20:31: POC Glucose 223 H 03/06/19 21:38: POC Glucose 197 H 03/06/19 22:32: POC Glucose 165 H 03/06/19 23:20: Sodium 140, Potassium 3.9, Chloride 111 H, Carbon Dioxide 23.0, Anion Gap 6, BUN 19 H, Creatinine 0.76, Estim Creat Clear Calc 41.40, Est GFR (MDRD) Af Amer 97, Est GFR (MDRD) Non-Af 80, BUN/Creatinine Ratio 25.1 H, Glucose 158 H, Calcium 8.8 03/07/19 05:00: WBC 11.9 H, RBC 4.08 L, Hgb 12.9, Hct 37.8, MCV 92.6, MCH 31.6, MCHC 34.1, RDW Std Deviation 44.0 H, RDW Coeff of Melvina 13.0, Plt Count 243, MPV 9.5, Immature Gran % (Auto) 0.500, Neut % (Auto) 65.3, Lymph % (Auto) 27.4, [place] % (Auto) 6.2, Eos % (Auto) 0.3, Baso % (Auto) 0.3, Absolute Neuts (auto) 7.8 H, Absolute Lymphs (auto) 3.25, Nucleated RBC % 0 03/07/19 05:00: Sodium 138, Potassium 3.6, Chloride 109 H, Carbon Dioxide 23.0, Anion Gap 6, BUN 15, Creatinine 0.67, Estim Creat Clear Calc 41.40, Est GFR (MDRD) Af Amer 112, Est GFR (MDRD) Non-Af 93, BUN/Creatinine Ratio 22.5 H, Glucose 160 H, Calcium 8.3 L, Total Bilirubin 0.50, Direct Bilirubin 0.10, AST 12 L, ALT 21, Alkaline Phosphatase 52, Total Protein 6.1 L, Albumin 2.9 L, Globulin 3.2, Lipase 115 03/07/19 06:41: POC Glucose 140 H Current Medications Acetaminophen (Tylenol) 650 mg PO Q6H PRN PRN PRN Reason: Pain Score 1-3/Temp > 100.7 F Aspirin (Ecotrin) 81 mg PO DAILY@2000 [facility] Dextrose (D50w Syringe) 0 gm IV X1 PRN; Protocol PRN Reason: Hypoglycemia Enoxaparin Sodium (Lovenox) 30 mg SC DAILY [facility] Last Admin: 03/06/19 18:55 Dose: 30 mg Documented by: Glucagon () 1 mg IM .X1 PRN PRN Reason: Hypoglycemia Hydralazine HCl (Apresoline Iv) 10 mg IV Q8H PRN PRN PRN Reason: for SBP>160 Last Admin: 03/06/19 17:26 Dose: 10 mg Documented by: Insulin Human Lispro 100 unit/ (Sodium Chloride) 100 mls @ 2.81 mls/hr IV .[id number] [facility]; Protocol Last Titration: 03/06/19 22:30 Dose: 0 unit/hr, 0 mls/hr Documented by: Sodium Chloride () 1,000 mls @ 150 mls/hr IV .Q6H40M [facility] Last Admin: 03/07/19 05:23 Dose: 150 mls/hr Documented by: Famotidine 20 mg/ Sodium (Chloride) 10 mls @ 300 mls/hr IV Q24 [facility] Last Infusion: 03/06/19 21:48 Dose: Infused Documented by: Insulin Human Lispro (Humalog Kwikpen (Bkc)) 0 unit SC ACHS [facility]; Protocol Metoprolol Tartrate (Lopressor (Beta Huan)) 50 mg PO BID [facility] Last Admin: 03/06/19 21:42 Dose: 50 mg Documented by: Morphine Sulfate () 4 mg IV Q2H PRN PRN PRN Reason: Pain Score 6-10/10 Ondansetron HCl (Zofran) 4 mg IV Q8H PRN PRN PRN Reason: NAUSEA/VOMITING STROKE Vital Signs/Narrative: Vital Signs Pulse Resp BP Pulse Ox 03/07/19 07:00 62 20 H 155/71 H 97 03/07/19 06:00 58 L 11 L 160/52 H 97 03/07/19 05:00 54 L 11 L 169/43 H 95 Medical Necessity - Tobacco Use Smoking Status: Never smoker Assessment/Plan All Active Problems (Last Updated 02/22/19 @ 13:46 by Jocelyn Lincoln) Chest pain (Acute) Acute pancreatitis (Acute) Hyponatremia (Acute) Acute kidney injury (Acute) Hyperglycemic hyperosmolar state (Acute) The patient is a 69 y/o F w/ PMHx: OA, HTN, HLD, Diabetes mellitus type II, Allergic Rhinitis, Chronic back pain who presents to the [facility] ED on 02/04/19 with history of lower sternal/epigastric pain starting the evening prior, sharp in nature, constant with radiation to the back, 10 out of 10 in severity with mild associated nausea without emesis, worsening on day of ED presentation. 1. Acute Hyperglycemic Hyperosmolar State diabetes mellitus type II: ED presentation with CBC with WC 12, hemoglobin 13.9, platelet 286 with left shift, CMP with sodium 126, chloride 95,, dioxide 16, anion gap 15, BUN/creatinine 29/1.55, glucose 753, lipase 1302, urinalysis with glucose 1000, negative ketones, negative acetone level, chest x-ray with no acute cardia pulmonary findings, EKG with sinus rhythm with no acute evidence of ischemia. In the ED patient aggressively hydrated, administered pain regimen, initiated on insulin drip. Patient admitted to the ICU, continued on insulin drip until improvement of BMP and blood glucose levels, will obtain mag and fossa levels now as not obtained prior, will obtain hemoglobin A1c level, need clarification on home regimen with plan to transition to home SC regimen, nutrition consultation for education and teaching. Encouraged diet and insulin regimen compliance. Given clinical improvement and plan transition off insulin drip may consider transition out of the ICU. Given clinical improvement and resolution of as noted #2, #3, #4 pending further evaluation may consider discharge to home today. 2. Acute pancreatitis w/ abdominal pain, N: Admission lipase 1302, repeat 115, maintained on aggressive IVFs, currently n.p.o. with plans diet transition with abdominal pain improvement, PPI, IV/po pain control, trend lipase, CMP. Will obtain RUQ US with n.p.o. status until obtained at approximately 930 this morning with clears initiation following, FLP, further assess for EtOH consumption risk as etiology for pancreatitis. 3. Acute kidney injury: Secondary to #1, admission BUN/creatinine 29/1.55, aggressively hydrated, repeat 03/07/2019 BUN/creatinine 15/0.67, normalized, continue to trend. 4. Hyponatremia, hypovolemic, acute: Secondary to #1 as noted, admission sodium 126, aggressively hydrated given #1 with repeat 03/07/2019 sodium 138, continue to trend. 5. Chest Pain: Likely secondary to pancreatitis as noted, EKG in ED no acute evidence of ischemia, CXR w/ no acute cardia pulmonary findings, initial trop normal and repeat x2 unremarkable. 6. Hypertension: Continue home regimen including lisinopril, metoprolol, PRN hydralazine. 7. Hyperlipidemia: Continue home statin regimen. AM FLP pending as noted. 8. GERD: Maintained on famotidine, transition to oral PPI. 9. DVT prophylaxis: SCDs, Lovenox. Code Visit Inpatient E&M: 36006 Subs Hosp L2
--- NOTE | 2019-03-07 08:11 | US_ITS ---
STUDY: ABDOMINAL ULTRASOUND - RIGHT UPPER QUADRANT REASON FOR VISIT: Female, 69 years old pancreatitis TECHNIQUE: Ultrasound evaluation of the right upper quadrant was performed with real-time and static weiner-scale imaging. TECHNICAL QUALITY: Adequate. COMPARISON: None. FINDINGS: Liver: The liver measures 13.9 cm. There is normal echogenicity of the liver. The bile ducts are within normal limits. There is hepatic color flow. The direction of portal flow is hepatopetal. There is no demonstrated mass lesion. Gallbladder: Normal distended gallbladder. The gallbladder wall measures 3 mm. There is a negative sonographic Petersen's sign. There is no pericholecystic fluid. There are no gallstones. Common Bile Duct (C.B.D.): The common bile duct measures 4 mm. Pancreas: Normal size of the head, body of the pancreas. There is increased echogenicity of the pancreas. There is no demonstrated pancreatic mass or cyst. Right Kidney: Normal size of the right kidney. The right kidney measures 9.3 cm. Normal renal cortex. There is no demonstrated renal mass or cyst. There is a 7 x 5 mm stone in the renal lower pole. There is no right hydronephrosis. US/Abdomen Limited IMPRESSION: There is mild increased echogenicity of the pancreatic parenchyma, this is nonspecific. Right nephrolithiasis without hydronephrosis. Electronically Signed: Dimas Lopez, at 14:15 EST Tel , Service support ,
[2019-03-07 08:56] LABS: Cholesterol 357 mg/dL (200); High Density Lipoprotein 47 mg/dL; Magnesium 1.1 mg/dL (1.6-2.6); Phosphorus 2.2 mg/dL (2.5-4.9); Triglycerides 525 mg/dL
[2019-03-07 09:02] LABS: Hemoglobin A1c 10.4 % (4.2-6.3)
--- NOTE | 2019-03-07 10:29 | CASEMGMT ---
RN CM Assessment Presentation: Hyperglycemic hyperosmolar state- BS 753 on admission Intro role of CM and purpose of RN CM assessment. Demographics, PCP and Pharmacy verified. Pt states she had received steroids and this elevated blood sugar. Pt was using kwikpen, however due to increased dosing, ran out. Call to [facility]- pt was on Tresiba and next refill is 12.16.19. PCP: Dr. Carlson Specialists: Pain mgmt, Dr. Murphy Preferred Pharmacy: [facility] Insurance: [employer] [facility] Adv Prescription Benefit: yes LNOK: Juventino Ahumada Living Arrangements: Pt lives independently with her . No care needs identified. DME: Blood glucose monitoring equipment. Transportation: Drives Patient DC goals: Home DC PLAN: Home Frandy JANG RN ACM
[2019-03-07] MEDS: Pantoprazole Sodium 20 MG Tablet PO (11:37)
[2019-03-07] MEDS: Lisinopril 2.5 MG Tablet PO (11:37)
[2019-03-07] MEDS: Enoxaparin 30 MG/0.3 ML Syringe SC (11:38)
[2019-03-07] MEDS: Metoprolol Tartrate 50 MG Tablet PO (11:38)
[2019-03-07] MEDS: Insulin Lispro 100 UNIT/ML INSULN.PEN SC (11:42)
[2019-03-07 12:01] LABS: Bedside Glucose 281 mg/dL (70-110)
--- NOTE | 2019-03-07 14:45 | PCM.DC ---
- Discharge Diagnoses Current Active Problems: Current Active and Chronic Problems (Last Updated 02/22/19 @ 13:46 by Jocelyn Lincoln) 1. Acute Hyperglycemic Hyperosmolar State w/ diabetes mellitus type II, uncontrolled 2. Acute pancreatitis w/ abdominal pain, N 3. Acute kidney injury, Secondary to #1 4. Hyponatremia, hypovolemic, acute, Secondary to #1 5. Chest Pain, secondary to pancreatitis as noted #2 6. Hypertension 7. Hyperlipidemia, Uncontrolled 8. GERD You will use the following diet at home:: Calorie/Carbohydrate Controlled (specify 1200, 1400, etc) - Advise continuation of clears/full liquids today and then transition tomorrow to ADA 1800/cardiac diet Your food should be the consistency of: Regular Your liquids should be the consistency of: Regular/Thin Discharge Activity: Return to Normal Activity May resume sexual activity in: No Restrictions Weight Bearing Status: Weight bearing as tolerated Call your doctor if you observe: Fever of 101 or Higher, Inability to urinate, Inability to have a bowel movement, Shortness of breath, Dizziness, Fainting spells, Chest pain, Uncontrolled pain Instructions: Hyperglycemia (High Blood Sugar), What Is Type 2 Diabetes?, Using Injected Insulin, Understanding Pancreatitis, Acute Pancreatitis Additional Instructions: During the admission your cholesterol level with a fasting lipid panel was obtained and notably elevated. Your cholesterol medication was increased and a prescription was sent to the pharmacy for this. During the admission you noted difficulties with filling your insulin regimen. Your insulin specific regimen was clarified with your primary care office and a refill was sent to the pharmacy. If there are any difficulties feeling this please immediately contact Dr. Carlson or the hospital. Allergies/Adverse Reactions: Allergies diphenhydramine [From Benadryl] Allergy (Verified 03/06/19 16:30) Swelling Medications to take at Discharge lisinopril 2.5 mg tablet 2.5 mg PO DAILY 02/22/19 Aspirin E.C. [Ecotrin] 81 mg PO DAILY@199903/06/19 Doxycycline Hyclate 100 mg PO BID 03/06/19 Metoprolol Tartrate [Lopressor (beta juany)] 50 mg PO BID 03/06/19 Atorvastatin Calcium 80 mg PO QHS #30 tab 03/07/19 Insulin Degludec [Tresiba Flextouch U-100] 50 units SQ BID #1 insuln.pen 03/07/19 Pantoprazole Sodium [Protonix] 20 mg PO BID #60 tab 03/07/19 The following prescriptions were given: Atorvastatin Calcium 80 mg PO QHS #30 tab Transmission Status: Pending to [facility] Pantoprazole Sodium [Protonix] 20 mg PO BID #60 tab Transmission Status: Pending to [facility] Insulin Degludec [Tresiba Flextouch U-100] 50 units SQ BID #1 insuln.pen Transmission Status: Pending to [facility] Primary Care Physician: Alfonso Carlson Chi, MD [Primary Care Provider] - Please follow up with your Primary Care Physician in: Follow-up within 3-5 days to review admission, medication changes. Test Results: Test results from this visit will be discussed in further detail at your follow-up appointment, if applicable. Please Follow Up With: Lv Olivera MD When: Please maintain upcoming 03/21/19 visit for diabetes management. Proposed Discharge Date: 03/07/19
--- NOTE | 2019-03-07 14:54 | PCM.DC.SUM ---
Discharge Date and Diagnosis - Problem List Patient Problems: Active and Suspected Problems (Last Updated 02/22/19 @ 13:46 by Jocelyn Lincoln) Chest pain (Acute) Acute pancreatitis (Acute) Hyponatremia (Acute) Acute kidney injury (Acute) Hyperglycemic hyperosmolar state (Acute) Date of Admission: 03/06/19 Date of Discharge: 03/07/19 - Primary Discharge Diagnosis Active and Suspected Problems (Last Updated 02/22/19 @ 13:46 by Jocelyn Lincoln) 1. Acute Hyperglycemic Hyperosmolar State w/ diabetes mellitus type II, uncontrolled 2. Acute pancreatitis w/ abdominal pain, N 3. Acute kidney injury, Secondary to #1 4. Hyponatremia, hypovolemic, acute, Secondary to #1 5. Chest Pain, secondary to pancreatitis as noted #2 6. Hypertension 7. Hyperlipidemia, Uncontrolled 8. GERD - Secondary Discharge Diagnosis Chronic Problems (Last Updated 02/22/19 @ 13:46 by Jocelyn Lincoln) Hyperlipidemia (Chronic) Hypertension (Chronic) Type 2 diabetes mellitus (Chronic) Hospital Course and Treatment Imaging Results: 03/07/19 08:11 Abdomen Limited [US] Urgent Dr. Boogie ICU Operations: None Procedures: EKG Summary of Care Provided: The patient is a 69 y/o F w/ PMHx: OA, HTN, HLD, Diabetes mellitus type II, Allergic Rhinitis, Chronic back pain who presented to the [facility] ED on 02/04/19 with history of lower sternal/epigastric pain starting the evening prior, sharp in nature, constant with radiation to the back, 10 out of 10 in severity with mild associated nausea without emesis, worsening on day of ED presentation. ED presentation with CBC with WC 12, hemoglobin 13.9, platelet 286 with left shift, CMP with sodium 126, chloride 95,, dioxide 16, anion gap 15, BUN/creatinine 29/1.55, glucose 753, lipase 1302, urinalysis with glucose 1000, negative ketones, negative acetone level, chest x-ray with no acute cardia pulmonary findings, EKG with sinus rhythm with no acute evidence of ischemia. In the ED patient aggressively hydrated, initiated on insulin drip. Patient admitted to the ICU, continued on insulin drip until improvement of BMP and blood glucose levels, he needs him and phosphorus levels obtained and notably low with supplementation administered, hemoglobin A1c obtained and noted to be 10.4%, patient transition to subcu regimen with insulin sliding scale additionally and refill sent to her pharmacy as she had noted missing her medication secondary to need of a refill with nutrition consultation for education and teaching. Per discussion with Dr. Carlson office to clarify patient home insulin regimen as well as made aware that patient has upcoming 03/21/2019 visit with endocrinology for her diabetes as it has been uncontrolled. As noted upon admission lipase 1302, repeat 115, maintained on aggressive IVFs, n.p.o. until gallbladder ultrasound was obtained which was unremarkable with then transition to clear and full diet, maintained on PPI, IV/po pain control, lipid panel obtained and notable with increase the patient home statin therapy. Denied aggressive alcohol intake as possible etiology. Patient acute kidney injury upon presentation also secondary to hyperglycemic hyperosmolar state with admission BUN/creatinine 29/1.55, aggressively hydrated, repeat 03/07/2019 BUN/creatinine 15/0.67, normalized. Given patient clinically improved above expected over 24 hours and clinically stable felt appropriate for discharge to home and given no necessity for immediate surgery evaluation as gallbladder ultrasound unremarkable as etiology for pancreatitis patient discharged home in improved stable condition with follow-up with her primary care physician as well as encourage follow-up with the leave specialist. Patient Problems: Active and Suspected Problems (Last Updated 02/22/19 @ 13:46 by Jocelyn Lincoln) Chest pain (Acute) Acute pancreatitis (Acute) Hyponatremia (Acute) Acute kidney injury (Acute) Hyperglycemic hyperosmolar state (Acute) - Physical Exam Vitals/I&O's: Vital Signs Temp Pulse Resp BP Pulse Ox 98.1 F 62 18 135/47 H 98 03/07/19 12:00 03/07/19 12:04 03/07/19 12:00 03/07/19 12:00 03/07/19 12:00 Oxygen Flow Rate (L/min) 2 Oxygen Delivery Method Room Air Weight: 125 lb 3.561 oz Body Mass Index (BMI) 22.8 Finger Stick Blood Glucose 165 Intake and Output for Last 24 Hours 03/05/19 03/06/19 03/07/19 23:59 23:59 23:59 Intake Total 3813.51 / 3913.51 2340 / 2340 Output Total 600 / 1800 1675 / 1675 Balance 3213.51 / 2113.51 665 / 665 Laboratory Results 03/06/19 13:40: Acetone Level NEGATIVE 03/06/19 13:40: Total Bilirubin 0.60, Direct Bilirubin 0.12, AST 18, ALT 26, Alkaline Phosphatase 85, Total Protein 7.7, Albumin 4.1, Globulin 3.6 03/06/19 13:40: Lipase 1302 H 03/06/19 15:00: Urine Color Yellow, Urine Clarity Sl. Cloudy, Urine pH 6.0, Ur Specific [place] 1.010, Urine Protein Negative, Urine Glucose (UA) 1000 H, Urine Ketones Negative, Urine Occult Blood Negative, Urine Nitrite Negative, Urine Bilirubin Negative, Urine Urobilinogen Normal, Ur Leukocyte Esterase Negative, Urine RBC 0 SEEN, Urine WBC 0 SEEN, Ur Squamous Epith Cells 0-5 SEEN, Urine Bacteria 0 SEEN, Urine Mucus 0 SEEN 03/06/19 15:18: POC Glucose > 500 H* 03/06/19 16:29: POC Glucose 446 H 03/06/19 17:32: POC Glucose 397 H 03/06/19 17:55: Troponin I < 0.015 03/06/19 18:32: POC Glucose 337 H 03/06/19 19:29: POC Glucose 290 H 03/06/19 20:15: Sodium 137, Potassium 3.4 L, Chloride 108 H, Carbon Dioxide 19.0 L, Anion Gap 10, BUN 22 H, Creatinine 1.06 H, Estim Creat Clear Calc 39.06, Est GFR (MDRD) Af Amer 66, Est GFR (MDRD) Non-Af 55 L, BUN/Creatinine Ratio 20.8 H, Glucose 266 H, Calcium 9.1, Troponin I < 0.015 03/06/19 20:31: POC Glucose 223 H 03/06/19 21:38: POC Glucose 197 H 03/06/19 22:32: POC Glucose 165 H 03/06/19 23:20: Sodium 140, Potassium 3.9, Chloride 111 H, Carbon Dioxide 23.0, Anion Gap 6, BUN 19 H, Creatinine 0.76, Estim Creat Clear Calc 41.40, Est GFR (MDRD) Af Amer 97, Est GFR (MDRD) Non-Af 80, BUN/Creatinine Ratio 25.1 H, Glucose 158 H, Calcium 8.8 03/07/19 05:00: WBC 11.9 H, RBC 4.08 L, Hgb 12.9, Hct 37.8, MCV 92.6, MCH 31.6, MCHC 34.1, RDW Std Deviation 44.0 H, RDW Coeff of Melvina 13.0, Plt Count 243, MPV 9.5, Immature Gran % (Auto) 0.500, Neut % (Auto) 65.3, Lymph % (Auto) 27.4, Johnston % (Auto) 6.2, Eos % (Auto) 0.3, Baso % (Auto) 0.3, Absolute Neuts (auto) 7.8 H, Absolute Lymphs (auto) 3.25, Nucleated RBC % 0 03/07/19 05:00: Sodium 138, Potassium 3.6, Chloride 109 H, Carbon Dioxide 23.0, Anion Gap 6, BUN 15, Creatinine 0.67, Estim Creat Clear Calc 41.40, Est GFR (MDRD) Af Amer 112, Est GFR (MDRD) Non-Af 93, BUN/Creatinine Ratio 22.5 H, Glucose 160 H, Calcium 8.3 L, Total Bilirubin 0.50, Direct Bilirubin 0.10, AST 12 L, ALT 21, Alkaline Phosphatase 52, Total Protein 6.1 L, Albumin 2.9 L, Globulin 3.2, Lipase 115 03/07/19 05:00: Phosphorus 2.2 L, Magnesium 1.1 L, Triglycerides 525 H, Cholesterol 357 H, LDL Cholesterol TNP, VLDL Cholesterol TNP, HDL Cholesterol 47 03/07/19 05:00: Hemoglobin A1c 10.4 H 03/07/19 06:41: POC Glucose 140 H 03/07/19 11:34: POC Glucose 281 H Current Medications Acetaminophen (Tylenol) 650 mg PO Q6H PRN PRN PRN Reason: Pain Score 1-3/Temp > 100.7 F Aspirin (Ecotrin) 81 mg PO DAILY@2000 [facility] Atorvastatin Calcium (Lipitor) 40 mg PO QHS [facility] Dextrose (D50w Syringe) 0 gm IV X1 PRN; Protocol PRN Reason: Hypoglycemia Enoxaparin Sodium (Lovenox) 30 mg SC DAILY [facility] Last Admin: 03/07/19 11:38 Dose: 30 mg Documented by: Glucagon () 1 mg IM .X1 PRN PRN Reason: Hypoglycemia Hydralazine HCl (Apresoline Iv) 10 mg IV Q8H PRN PRN PRN Reason: for SBP>160 Last Admin: 03/06/19 17:26 Dose: 10 mg Documented by: Sodium Chloride () 1,000 mls @ 150 mls/hr IV .Q6H40M [facility] Last Infusion: 03/07/19 14:40 Dose: Infused Documented by: Insulin Glargine (Lantus ([facility])) 40 units SC DAILY [facility] Last Admin: 03/07/19 11:36 Dose: 40 u Documented by: Insulin Human Lispro (Humalog Kwikpen ([facility])) 0 unit SC ACHS [facility]; Protocol Last Admin: 03/07/19 11:42 Dose: 4 u Documented by: Lisinopril (Zestril) 2.5 mg PO DAILY [facility] Last Admin: 03/07/19 11:37 Dose: 2.5 mg Documented by: Metoprolol Tartrate (Lopressor (Beta Huan)) 50 mg PO BID [facility] Last Admin: 03/07/19 11:38 Dose: 50 mg Documented by: Morphine Sulfate () 4 mg IV Q2H PRN PRN PRN Reason: Pain Score 6-10/10 Ondansetron HCl (Zofran) 4 mg IV Q8H PRN PRN PRN Reason: NAUSEA/VOMITING Pantoprazole Sodium (Protonix) 20 mg PO BID [facility] Last Admin: 03/07/19 11:37 Dose: 20 mg Documented by: Discharge Activity: Return to Normal Activity May resume sexual activity in: No Restrictions Weight Bearing Status: Weight bearing as tolerated Call your doctor if you observe: Fever of 101 or Higher, Inability to urinate, Inability to have a bowel movement, Shortness of breath, Dizziness, Fainting spells, Chest pain, Uncontrolled pain Home Medications: Medications to take at Discharge lisinopril 2.5 mg tablet 2.5 mg PO DAILY 02/22/19 Aspirin E.C. [Ecotrin] 81 mg PO DAILY@199903/06/19 Doxycycline Hyclate 100 mg PO BID 03/06/19 Metoprolol Tartrate [Lopressor (beta huan)] 50 mg PO BID 03/06/19 Atorvastatin Calcium 80 mg PO QHS #30 tab 03/07/19 Insulin Degludec [Tresiba Flextouch U-100] 50 units SQ BID #1 insuln.pen 03/07/19 Pantoprazole Sodium [Protonix] 20 mg PO BID #60 tab 03/07/19 Following Prescrptions Were Given to Patient: Atorvastatin Calcium 80 mg PO QHS #30 tab Transmission Status: Pending to [facility] Pantoprazole Sodium [Protonix] 20 mg PO BID #60 tab Transmission Status: Pending to [facility] Insulin Degludec [Tresiba Flextouch U-100] 50 units SQ BID #1 insuln.pen Transmission Status: Pending to [facility] Primary Care Physician: Alfonso Carlson Chi, MD [Primary Care Provider] - Please follow up with your Primary Care Physician in: Follow-up within 3-5 days to review admission, medication changes. Please Follow Up With: Lv Olivera MD When: Please maintain upcoming 03/21/19 visit for diabetes management. Patient Instructions: Hyperglycemia (High Blood Sugar), What Is Type 2 Diabetes?, Using Injected Insulin, Understanding Pancreatitis, Acute Pancreatitis Disposition: Home Minutes spent on discharge:: 35 Patient Condition:: Fair Medical Necessity - Tobacco Use Smoking Status: Never smoker Meaningful Use Info Meaningful Use Diagnoses (Choose all that apply): None applicable Code Visit Inpatient E&M: 81796 Disch Hosp
--- NOTE | 2019-03-08 16:16 | CASEMGMT ---
RN CM Discharge Follow-Up Phone Call. Lace: 9 Strata: 3 Discharge Date: 03/07/19 Adm Dx: Hyperosmolar hyperglycemic state, pancreatitis, acute kidney injury Attempted discharge follow up phone call. No answer. Message left for pt to return call to RN BERTRAM if she has any questions/concerns about discharge instruction, medications, or follow-up appts. Phone number provided. Case JANG RN CM
--- NOTE | 2019-03-09 09:46 | CASEMGMT ---
Addendum entered by Cristal Davidson 03/09/19 10:09: Addendum: Clinical information submitted to [facility] processing center for PA for Pantoprazole. Call placed back to Dr Carlson's office and message left on nurse line to inform her this was submitted. Original Note: MARKIE BURDEN NOTE: Fax received from [employer], a PA processing center, stating that prior-auth is needed for Pantoprazole Sodium. Pt has been discharged from [facility]. Call placed to pt's PCP, Dr Carlson, and message left informing them PA is needed. Case ROSARION MARKIE CM
== END 2019-03-07 15:15 | disposition home or self-care (01) | DRG 637 ==
LOC: ED 15:39 → ICU 03-07 06:45
PROVIDERS: Admitting Provider Hospitalist; Emergency Provider Emergency Medicine; Family Provider Family Medicine Geriatric Medicine; PCP Family Medicine Geriatric Medicine; Referring Provider Hospitalist; Visit Provider Family Medicine
DX: E11.00 Type 2 diabetes mellitus with hyperosmolarity without nonketotic hyperglycemic-hyperosmolar coma (NKHHC) (principal); K85.90 Acute pancreatitis without necrosis or infection, unspecified; N17.9 Acute kidney failure, unspecified; E87.1 Hypo-osmolality and hyponatremia; Z79.4 Long term (current) use of insulin; E78.5 Hyperlipidemia, unspecified; E86.1 Hypovolemia; I10 Essential (primary) hypertension; E11.65 Type 2 diabetes mellitus with hyperglycemia; K21.9 Gastro-esophageal reflux disease without esophagitis
CPT/HCPCS: 71045; 76705; 80048; 80061; 80076; 81001; 82009; 82962; 83036; 83690; 83735; 84100; 84484; 85025; 93005; 97161; 97165; 97802; 99251; 99285; J7030; A4216; G0463; J2405; J3490

== ENCOUNTER → 2019-03-12 16:04 | Outpatient (CLI) | payer MEDICARE, SELFPAY ==
[2019-03-12 16:04] VITALS: BMI 22.6
[2019-03-12 16:56] LABS: Absolute Lymphocyte Count 3.07 X10^3/uL (0.83-4.51); Absolute Neutrophil Count 5.8 X10^3/uL (2.0-7.7); Basophil# 0.01 X10^3/uL; Basophil% 0.1 % (0-1); Lymphocyte # 3.07 X10^3/ul (4.0); Lymphocyte % 30.5 % (19-41); Mean Corp Hgb Conc 34.1 g/dL (32-36); Mean Corpuscular Hgb 31.8 pg (27.0-32.0); Mean Corpuscular Volume 93.2 fL (81-99); Mean Platelet Vol. 10.2 fl (6.2-12.0); Monocyte# 1.11 X10^3/uL; NRBC Flagged by Analyzer 0 % (0-5); Neutrophil # 5.82 X10^3/uL (2.7-7.7); Neutrophil % 57.9 % (47-70); Platelet Count 308 K/mm3 (150-450); RBC Distribution Width CV 13.2 % (11.6-14.6); RBC Distribution Width SD 45.4 fl (35.1-43.9); Red Blood Count 4.72 M/mm3 (4.2-5.4); White Blood Count 10.1 K/mm3 (4.4-11.0)
[2019-03-12 17:21] LABS: Amylase 59 U/L (25-115); Anion Gap 8 (5-15); BUN 29 mg/dL (7-18); BUN/Creat Ratio 36.2 RATIO (10-20); Calcium,Total 9.4 mg/dL (8.5-10.1); Chloride 105 mmol/L (98-107); EST Glomerular Filtration Rate 75 mL/min (>60); Est Glom Filt Rate - Afr Amer 91 mL/min (>60); Glucose 68 mg/dL (74-106); Lipase 233 U/L (73-393); Potassium 3.7 mmol/L (3.5-5.1); Sodium Level 138 mmol/L (136-145)
== END ==
LOC: POLAB3 16:04
PROVIDERS: Family Provider Family Medicine Geriatric Medicine; PCP Family Medicine Geriatric Medicine; Visit Provider Family Medicine Geriatric Medicine
DX: K85.90 Acute pancreatitis without necrosis or infection, unspecified (principal); N17.9 Acute kidney failure, unspecified; R10.9 Unspecified abdominal pain
CPT/HCPCS: 36415; 80048; 82150; 83690; 85025

== ENCOUNTER 2019-04-05 18:03 | Outpatient (RCR) | payer MEDICARE, SELFPAY ==
[2019-03-12 16:04] VITALS: BMI 22.6
== END 2019-04-05 19:00 | disposition home or self-care (01) ==
LOC: PT 18:03
PROVIDERS: Family Provider Family Medicine Geriatric Medicine; PCP Family Medicine Geriatric Medicine; Referring Provider Anesthesiology; Visit Provider Anesthesiology
DX: M71.552 Other bursitis, not elsewhere classified, left hip (principal); M25.552 Pain in left hip; M51.36 Other intervertebral disc degeneration, lumbar region

== ENCOUNTER → 2019-04-26 13:24 | Outpatient (CLI) | payer MEDICARE, SELFPAY ==
[2019-03-12 16:04] VITALS: BMI 22.6
[2019-04-26 17:04] LABS: Absolute Lymphocyte Count 2.63 X10^3/uL (0.83-4.51); Absolute Neutrophil Count 7.9 X10^3/uL (2.0-7.7); Basophil# 0.04 X10^3/uL; Basophil% 0.3 % (0-1); Eosinophil# 0.11 X10^3/uL; Eosinophils% 0.9 % (0-5); Hematocrit 44.3 % (37-47); Hemoglobin 14.2 g/dL (12.0-15.0); Lymphocyte # 2.63 X10^3/ul (4.0); Lymphocyte % 22.3 % (19-41); Mean Corp Hgb Conc 32.1 g/dL (32-36); Mean Corpuscular Hgb 30.1 pg (27.0-32.0); Mean Corpuscular Volume 93.9 fL (81-99); Mean Platelet Vol. 10.9 fl (6.2-12.0); Monocyte# 1.09 X10^3/uL; Monocyte% 9.2 % (0-10); NRBC Flagged by Analyzer 0 % (0-5); Platelet Count 271 K/mm3 (150-450); RBC Distribution Width CV 12.2 % (11.6-14.6); RBC Distribution Width SD 42.6 fl (35.1-43.9); Red Blood Count 4.72 M/mm3 (4.2-5.4); White Blood Count 11.8 K/mm3 (4.4-11.0)
[2019-04-26 17:27] LABS: AST(SGOT) 22 U/L (15-37); Alanine Aminotransfer ALT/SGPT 28 U/L (13-56); Albumin, Serum 3.5 g/dL (3.2-5.0); Alkaline Phosphatase 85 U/L (45-117); Anion Gap 7 (5-15); BUN 32 mg/dL (7-18); BUN/Creat Ratio 30.5 RATIO (10-20); Calcium,Total 9.5 mg/dL (8.5-10.1); Chloride 103 mmol/L (98-107); Creatinine, Serum 1.05 mg/dL (0.55-1.02); EST Glomerular Filtration Rate 55 mL/min (>60); Est Glom Filt Rate - Afr Amer 67 mL/min (>60); Globulin 3.4 g/dL (2.2-4.2); Glucose 191 mg/dL (74-106); Potassium 4.8 mmol/L (3.5-5.1); Protein, Total 6.9 g/dL (6.4-8.2); Sodium Level 138 mmol/L (136-145); Thyroid Stim Hormone (TSH) 4.71 uIU/mL (0.358-3.74)
[2019-04-26 17:28] LABS: Vitamin D,25 Hydroxy 15.2 ng/mL (29.95-100.01)
== END ==
LOC: POLAB3 13:25
PROVIDERS: PCP Family Medicine Geriatric Medicine; Visit Provider Family Medicine Geriatric Medicine
DX: I10 Essential (primary) hypertension (principal); E11.9 Type 2 diabetes mellitus without complications; E55.9 Vitamin D deficiency, unspecified
CPT/HCPCS: 36415; 80053; 82306; 84443; 85025

== ENCOUNTER → 2019-05-03 15:10 | Outpatient (CLI) | payer MEDICARE, SELFPAY ==
[2019-03-12 16:04] VITALS: BMI 22.6
[2019-05-03 15:44] LABS: Absolute Lymphocyte Count 3.19 X10^3/uL (0.83-4.51); Basophil# 0.05 X10^3/uL; Basophil% 0.6 % (0-1); Eosinophil# 0.14 X10^3/uL; Eosinophils% 1.7 % (0-5); Hematocrit 41.4 % (37-47); Hemoglobin 13.9 g/dL (12.0-15.0); Lymphocyte # 3.19 X10^3/ul (4.0); Lymphocyte % 38.7 % (19-41); Mean Corp Hgb Conc 33.6 g/dL (32-36); Mean Corpuscular Hgb 30.5 pg (27.0-32.0); Mean Corpuscular Volume 90.8 fL (81-99); Mean Platelet Vol. 10.3 fl (6.2-12.0); Monocyte# 0.88 X10^3/uL; Monocyte% 10.7 % (0-10); NRBC Flagged by Analyzer 0 % (0-5); Neutrophil # 3.97 X10^3/uL (2.7-7.7); Neutrophil % 48.1 % (47-70); Platelet Count 266 K/mm3 (150-450); RBC Distribution Width CV 11.9 % (11.6-14.6); RBC Distribution Width SD 39.2 fl (35.1-43.9); Red Blood Count 4.56 M/mm3 (4.2-5.4); White Blood Count 8.3 K/mm3 (4.4-11.0)
[2019-05-03 16:06] LABS: AST(SGOT) 18 U/L (15-37); Alanine Aminotransfer ALT/SGPT 23 U/L (13-56); Albumin, Serum 3.4 g/dL (3.2-5.0); Alkaline Phosphatase 71 U/L (45-117); Anion Gap 5 (5-15); BUN 21 mg/dL (7-18); BUN/Creat Ratio 25.3 RATIO (10-20); Calcium,Total 9.4 mg/dL (8.5-10.1); Chloride 105 mmol/L (98-107); Creatinine, Serum 0.83 mg/dL (0.55-1.02); EST Glomerular Filtration Rate 72 mL/min (>60); Est Glom Filt Rate - Afr Amer 87 mL/min (>60); Globulin 3.4 g/dL (2.2-4.2); Glucose 104 mg/dL (74-106); Potassium 4.3 mmol/L (3.5-5.1); Protein, Total 6.8 g/dL (6.4-8.2); Sodium Level 137 mmol/L (136-145)
== END ==
PROVIDERS: PCP Family Medicine Geriatric Medicine; Visit Provider Family Medicine Geriatric Medicine
DX: R10.9 Unspecified abdominal pain (principal)
CPT/HCPCS: 36415; 80053; 85025

== ENCOUNTER → 2019-05-03 16:12 | Outpatient (CLI) | payer MEDICARE, SELFPAY ==
[2019-03-12 16:04] VITALS: BMI 22.6
--- NOTE | 2019-05-03 16:47 | CT_ITS ---
STUDY: CT ABDOMEN AND PELVIS WITHOUT CONTRAST REASON FOR EXAM: Female, 69 years old. RT SIDED PAIN, RADIATION DOSAGE (If Supplied By Facility): CTDIvol = ( 8.98 ) mGy, DLP = ( 442.82 ) mGycm TECHNIQUE: Transaxial images were obtained from the dome of the diaphragm to the symphysis pubis without oral contrast, and without intravenous contrast. Sagittal and coronal images were reconstructed. Individualized dose optimization techniques were used for this CT. COMPARISON: August 14, 2016 and January 10, 2019. FINDINGS: Several nodules are identified at the lung bases measuring less than 4 mm for example series 1002 image 19 left base and image 6 lung base. The visualized portions of the heart demonstrate coronary artery and valvular calcifications. Normal liver. Normal gallbladder and extrahepatic biliary system. Normal spleen. Normal pancreas. Normal bilateral adrenal glands. Normal right kidney. Normal left kidney. Normal visualized stomach. Normal small intestine. Normal colon. The appendix is visualized and appears normal. Normal abdominal aorta. Normal inferior vena cava. Normal retroperitoneum. Distended urinary bladder. There is absence of the uterus consistent with a prior hysterectomy. Increased attenuation is noted within the subcutaneous fat of the anterior abdominal wall which may be related to injection sites. Normal osseous structures. CT/Abdomen/Pelvis without Cont IMPRESSION: No acute process is identified. Several pulmonary nodules measuring less than 4 mm are noted at the bilateral lung bases. Some of these are stable dating back to August 14, 2016 and some were not seen on this examination. Fleischner Society Recommendations for Follow-up and Management of Nodules Smaller than 8 mm Detected Incidentally at Nonscreening CT. Nodule size < or = 4 mm: Low-Risk Patient - No follow-up needed. High-Risk Patient - Follow-up CT at 12 months; if unchanged, no further follow-up. Nodule size > 4-6 mm: Low-Risk Patient - Follow-up CT at 12 months; if unchanged, no further follow-up. High-Risk Patient - Initial follow-up CT at 6-12 months then at 18-24 months if no change. Nodule size > 6-8 mm: Low-Risk Patient - Initial follow-up CT at 6-12 months then at 18-24 months if no change. High-Risk Patient - Initial follow-up CT at 3-6 months then at 9-12 and 24 months if no change. Nodule size > 8 mm: Low-Risk Patient - Follow-up CT at around 3,9 and 24 months. Dynamic contrast-enhanced CT, PET and/or biopsy. High-Risk Patient - Same as for low-risk patient. Low-Risk = Minimal or absent history of smoking and of other known risk factors. High-Risk = History of smoking or of other known risk factors. Electronically Signed: Danny Cota, at 19:29 EST Tel , Service support ,
== END ==
LOC: CT 16:38
PROVIDERS: PCP Family Medicine Geriatric Medicine; Referring Provider Family Medicine Geriatric Medicine; Visit Provider Family Medicine Geriatric Medicine
DX: K52.89 Other specified noninfective gastroenteritis and colitis (principal); R10.9 Unspecified abdominal pain
CPT/HCPCS: 36415; 74176; 80053; 85025

== ENCOUNTER → 2019-05-16 15:44 | Outpatient (CLI) | payer MEDICARE, SELFPAY ==
[2019-05-08 14:33] VITALS: BMI 22.6
== END ==
PROVIDERS: PCP Family Medicine Geriatric Medicine; Referring Provider Family Medicine Geriatric Medicine; Visit Provider Family Medicine Geriatric Medicine
DX: R68.83 Chills (without fever) (principal)
CPT/HCPCS: 87633

== ENCOUNTER → 2019-06-06 10:52 | Outpatient (CLI) | payer MEDICARE, SELFPAY ==
[2019-05-08 14:33] VITALS: BMI 22.6
--- NOTE | 2019-06-06 12:46 | RAD_ITS ---
STUDY: X-RAY - SKULL REASON FOR EXAM: Female, 69 years old. swelling and pain on both lateral aspects of head for approx 3 days; dizzy spells for approx 1 week; hx of left sided skull fractures in the 1960s/70s; no recent injury TECHNIQUE: 4 view(s) of the skull were obtained. COMPARISON: None. FINDINGS: There is no demonstrated soft tissue swelling. Normal osseous calvarium. Normal visualized facial bones. Normal visualized paranasal sinuses. RAD/Skull min 4 Views IMPRESSION: No demonstrated fractures Electronically Signed: Breonna Samayoa MD at 8:23 EST Tel , Service support ,
[2019-06-08 04:45] LABS: Mumps Antibody, IgM < 0.80 AU (0.00-0.79)
== END ==
LOC: POLAB3 10:52 → RAD 12:24
PROVIDERS: PCP Family Medicine Geriatric Medicine; Visit Provider Family Medicine Geriatric Medicine
DX: K11.20 Sialoadenitis, unspecified (principal)
CPT/HCPCS: 36415; 70260; 86735

== ENCOUNTER → 2019-06-11 11:14 | Outpatient (CLI) | payer MEDICARE, SELFPAY ==
[2019-03-12 16:04] VITALS: BMI 22.6
[2019-05-08 14:33] VITALS: BMI 22.6
--- NOTE | 2019-06-11 11:18 | BI_ITS ---
MAMMOGRAPHY - BILATERAL SCREENING REASON FOR EXAM: Female, 69 years old. Routine annual screening examination. PERTINENT HISTORY: Daughter with breast cancer. TECHNIQUE: Digital bilateral breast amanda (3D mammographic acquisition) in the CC and MLO projections. 2-D mediolateral oblique (MLO) and craniocaudad (CC) views of both breasts were obtained. CAD: Full Field Digital Mammography with Computer Added Detection was performed. COMPARISON: Comparison is made with prior examination dated June 09, 2018. FINDINGS: Breast Composition: The breasts are heterogeneously dense, which may obscure small masses. There are no dominant masses or suspicious calcifications. Stable bilateral secretory calcifications. No other significant abnormalities are identified. There has been no significant change since the prior study. BI/SCREEN MAMM (CAD) W/AMANDA BILAT IMPRESSION: Stable bilateral screening mammogram. Yearly follow-up mammogram recommended. (A) ASSESSMENT CATEGORY: BIRADS Category 2: Benign. A letter regarding these results will be sent to the patient by the facility within 30 days. Approximately 10% of breast cancers are not detected by mammography. A normal mammogram should not delay biopsy of a clinically suspicious abnormality. [id number] Electronically Signed: Al Thacker, at 12:47 EDT , Service support ,
== END ==
PROVIDERS: PCP Family Medicine Geriatric Medicine; Referring Provider Family Medicine Geriatric Medicine; Visit Provider Family Medicine Geriatric Medicine
DX: Z12.31 Encounter for screening mammogram for malignant neoplasm of breast (principal)
CPT/HCPCS: 77063; 77067

== ENCOUNTER → 2019-06-29 09:30 | Outpatient (CLI) | payer MEDICARE, SELFPAY ==
[2019-05-08 14:33] VITALS: BMI 22.6
--- NOTE | 2019-06-29 09:43 | NM_ITS ---
CLINICAL: 69-year-old female with reported history of chest wall pain. WHOLE BODY 99m Tc MDP RADIONUCLIDE BONE SCINTIGRAPHY COMPARISON: None available FINDINGS: Following the intravenous administration of 21.0 mCi of 99m Tc MDP, whole body bone images reveal: 1. Increased radiopharmaceutical concentration is defined in the mid cervical spine posteriorly on the right, 12th thoracic vertebra posteriorly on the right, the sternoclavicular compartments of both shoulders, the acromioclavicular and glenohumeral compartment of the right shoulder, bilateral elbow articulations. 2. Facilitated tracer concentration is observed in the right posterior lateral 10th rib. 3. The remaining skeletal structures are scintigraphically unremarkable with normal-appearing renal images and urinary bladder activity identified. Asymmetric increased uptake is noted in the right mandible most consistent with periodontal disease and/or periostitis. NM/Bone Scan Whole Body IMPRESSION: 1. The increase in radiopharmaceutical concentration observed in the right posterolateral 10th rib is most consistent with trauma-fracture. 2. Degenerative arthritis appears expressed in the cervical and thoracic spine, bilateral shoulders, right and left elbows. Electronically Signed: Jaydon Escoto DO at 9:51 EDT Tel , Service support ,
== END ==
PROVIDERS: PCP Family Medicine Geriatric Medicine; Referring Provider Family Medicine Geriatric Medicine; Visit Provider Family Medicine Geriatric Medicine
DX: R07.9 Chest pain, unspecified (principal)
CPT/HCPCS: 78306

== ENCOUNTER 2019-06-29 19:19 | Emergency (ER) | payer MEDICARE, SELFPAY ==
[2019-05-08 14:33] VITALS: BMI 22.6
[2019-06-29 19:20] VITALS: BP 137/77; PULSE 112; RESP 14; TEMP 36.7; O2SAT 98; BMI 24.7
--- NOTE | 2019-06-29 19:37 | EKG12_ITS ---
Test Reason : CP Blood Pressure : / mmHG Vent. Rate : 094 BPM Atrial Rate : 094 BPM P-R Int : 126 ms QRS Dur : 066 ms QT Int : 356 ms P-R-T Axes : 030 -30 052 degrees QTc Int : 445 ms Normal sinus rhythm Left axis deviation Voltage criteria for left ventricular hypertrophy Abnormal ECG Confirmed by ANGIE BIRMINGHAM ([id number]), primer expeditor and drier MERVIN MENDEZ ([id number] on 07/02/2019 1:09:33 PM Referred By: LU Confirmed By:ANGIE BIRMINGAHM
[2019-06-29 19:41] VITALS: O2SAT 96
[2019-06-29] MEDS: Aspirin 81 MG TAB.CHEW 324 MG PO (19:43)
--- NOTE | 2019-06-29 19:46 | ED.VIS.CHEST ---
History of Present Illness Chief Complaint: Chest Pain Informant: Patient Onset: Today Timing: Continuous Quality: Sharp Location: Substernal Worsened By: Nothing Relieved By: Nothing Associated Symptoms: Negative for: Nausea, Vomiting, Diaphoresis, Dyspnea, Cough, Fever, Acid Reflux, Palpitations Narrative: Patient is a 69-year-old female with history of hypertension, hyperlipidemia, type 2 diabetes mellitus and pancreatitis presenting with chest pain. Patient states she developed chest pain this morning after she got the shower. States in the center of her chest. It does not radiate. She does not have associated shortness of breath or difficulty breathing. In triage patient was noted to have shortness of breath associated with it. When I specifically asked her about shortness of breath she denied any for me. She notes that she has had some associated hot flashes than when going over the past week. She denies any fever, chills, flulike symptoms, nausea or GI symptoms. She denies any swelling of her legs. She denies any history of PE or DVT. She states she had a stress test 1 year ago. She does not know why or the results. She denies any history of cardiac catheterization. She denies any personal history of heart attack or stroke. Prior Similar Symptoms: Yes Recent Illness/Hospitalization: No CVD Risk Factors: Hypertension, Diabetes, Hypercholesterolemia, Family History 1' </=55 - son. Negative for: Smoking Past Medical History - Allergies and Home Meds Allergies/Adverse Reactions: Allergies diphenhydramine [From Benadryl] Allergy (Verified 06/29/19 19:19) Swelling Primary Care Physician: Alfonso Carlson Chi, MD [Primary Care Provider] - Past Medical History: - - Hypertension, hyperlipidemia, diabetes mellitus, hypothyroid Surgical History: - - section. Lives: Spouse/ Significant Other Smoking Status: Never smoker - Family History Maternal Family History: Family History (Last Reviewed 05/08/19 @ 14:[address] Lv Olivera MD) Unknown Breast cancer Colon cancer Diabetes Myocardial infarction Heart disease Hypertension Hyperlipidemia Family History: Reports: No pertinent history Paternal Family History: Family History (Last Reviewed 05/08/19 @ 14:[address] Lv Olivera MD) Unknown Breast cancer Colon cancer Diabetes Myocardial infarction Heart disease Hypertension Hyperlipidemia Family History: Reports: No pertinent history Review of Systems General: Reports: Sweats. Denies: Chills, Fever Eyes: Denies: Visual changes - bilaterally, Diplopia ENT: Denies: Rhinorrhea, Sore throat Cardiovascular: Reports: Chest pain. Denies: Palpitations Respiratory: Denies: Dyspnea, Cough, Dyspnea on exertion Gastrointestinal: Denies: Abdominal pain, Nausea, Vomiting, Diarrhea, Melena, Hematochezia Genitourinary: Denies: Dysuria, Hematuria, Frequency Musculoskeletal: Denies: Back pain, Extremity Pain Skin: Denies: Rash, Wounds Neurological: Denies: Headache, Weakness, Numbness Physical Exam Vital Signs/Narrative: Vital Signs Temp Pulse Resp BP Pulse Ox 06/29/19 19:41 96 06/29/19 19:20 98.1 F 112 H 14 137/77 H 98 Inital Vital Signs reviewed: Yes General: Well nourished, Well developed, No Acute Distress Head: Normocephalic, Atraumatic Eyes: Perrl, EOMI ENT: Moist mucous membranes, No rhinorrhea, TM's clear Neck: Supple, Nontender, No JVD Cardiovascular: Regular rate, Regular rhythm, No murmurs Respiratory: No distress, CTA bilaterally, Chest nontender. Negative for: Chest tenderness Abdomen: Soft, Nontender, Nondistended, Normal bowel sounds Back: Nontender, Normal Inspection Extremities: Nontender, No edema, - - 1+ bilateral DP pulses Skin: Normal color, No rash Neurological: Alert, Oriented x3, Cranial nerves II-XII grossly intact, Normal Strength, Normal Sensation Psychological: Normal affect, Normal Mood Diagnostic/Tx/Re-eval Chest X-Ray - ED: 1 View, Read by ED Physician, Read by Radiologist, No Acute Disease Clinical Impression(s) from Imaging Studies Chest X-Ray 06/29/19 19:47 IMPRESSION: Calcified plaques in the aortic arch. No acute cardiopulmonary disease process is seen. Chest findings are stable in the interval. Electronically Signed: Pedro Salvador MD at 20:05 EDT , Service support , Chest CTA 06/29/19 20:13 IMPRESSION: Normal CTA chest examination, without a demonstrated pulmonary embolism or arterial dissection. There is mild dilatation of the main pulmonary artery measuring up to 3.1 cm in diameter. This may be associated with pulmonary hypertension. Coronary arterial calcifications are present. Electronically Signed: Pedro Salvador MD at 20:56 EDT , Service support , Laboratory Data 06/29/19 06/29/19 06/29/19 19:30 19:30 19:30 WBC 8.9 RBC 4.21 Hgb 12.9 Hct 38.2 MCV 90.7 MCH 30.6 MCHC 33.8 RDW Std Deviation 44.3 H RDW Coeff of Melvina 13.5 Plt Count 258 MPV 9.7 Immature Gran % (Auto) 1.100 H Neut % (Auto) 66.6 Lymph % (Auto) 22.7 Rutherford % (Auto) 8.8 Eos % (Auto) 0.2 Baso % (Auto) 0.6 Absolute Neuts (auto) 6.0 Absolute Lymphs (auto) 2.03 Nucleated RBC % 0 D-Dimer Quant (PE/DVT) 0.85 H* Sodium 129 L Potassium 4.4 Chloride 97 L Carbon Dioxide 21.0 Anion Gap 11 BUN 25 H Creatinine 1.10 H Estim Creat Clear Calc 37.64 Est GFR (MDRD) Af Amer 63 Est GFR (MDRD) Non-Af 52 L BUN/Creatinine Ratio 22.7 H Glucose 747 H* Calcium 9.3 Troponin I < 0.015 POC Glucose 06/29/19 22:31 WBC RBC Hgb Hct MCV MCH MCHC RDW Std Deviation RDW Coeff of Melvina Plt Count MPV Immature Gran % (Auto) Neut % (Auto) Lymph % (Auto) Rutherford % (Auto) Eos % (Auto) Baso % (Auto) Absolute Neuts (auto) Absolute Lymphs (auto) Nucleated RBC % D-Dimer Quant (PE/DVT) Sodium Potassium Chloride Carbon Dioxide Anion Gap BUN Creatinine Estim Creat Clear Calc Est GFR (MDRD) Af Amer Est GFR (MDRD) Non-Af BUN/Creatinine Ratio Glucose Calcium Troponin I POC Glucose 462 H* - Rhythm Strip Rhythm Strip: Sinus Rhythm Rate: 94 Ectopy: None - EKG Initial EKG Interpretation: Sinus Rhythm, - - Sinus rhythm at a rate of 94 Normal intervals Left axis deviation Normal ST segments Voltage criteria for LVH Treatment: Aspirin KARLI Risk: Age >/= 65, >/= 3RF Score: 2 - Medical Decision Making Patient is evaluated for 1 day of chest pain. Is in the center of her chest is been constant. Patient multiple cardiac risk factors including diabetes, hypertension advanced age. She is not have any significant ST segment changes on her EKG however she does have left axis deviation and signs of LVH. Patient's troponin is normal as well as her chest x-ray. Her d-dimer is mildly elevated. CTA is obtained to rule out PE as she has atypical chest pain. This is negative. Her BMP is significant for hyperglycemia.Patient's glucose is 747. Her creatinine is 1.10 but this appears to be her baseline. Her sodium was mildly low at 129 however this is likely falsely low unmasked by her hyperglycemia. Patient does have a normal anion gap and her calculated serum osmolality is 305. Patient does not meet criteria for HH NK. Patient is recommended admission however she is refusing this. She states she does not want a be in the hospital. Patient is counseled that with her chest pain she could have a cardiac event that is developing and she is to be monitored further. She is also counseled that her hyperglycemia needs to be addressed. Patient does admit to diet noncompliance. Patient is also counseled on the risk of diabetic coma should her hyperglycemia significantly worsen. Patient verbalizes agreement understanding of these risks. She is counseled on the risk of sudden , endorgan damage and permanent disability. Patient still would like to sign out AGAINST MEDICAL ADVICE. Patient does have capacity and is capable of making this decision. Patient's blood sugar after a liter of fluid is 462. She be given 8 units of insulin lispro. She is discharged home. She is encouraged to return the emergency room should she change her mind. ED Disposition - Plan for ED Patient: Disposition: Against Medical Advice Diagnosis: Chest pain, Hyperglycemia Instructions: ED Chest Pain [facility] , ED Diabetic Hyperglycemia, [place] Form- 1 Referrals: Alfonso Carlson Chi, MD [Primary Care Provider] - Additional Instructions: These return to the emergency room should you change your mind like to be admitted or be reevaluated. Please follow-up with your primary care doctor on Tuesday or soon as possible.
--- NOTE | 2019-06-29 19:47 | RAD_ITS ---
STUDY: X-RAY CHEST REASON FOR EXAM: Female, 69 years old. chest pain and sob started today TECHNIQUE: Single AP portable view of the chest. COMPARISON: Prior study of 03/06/2019 FINDINGS: radiation monitor leads are present. The lungs are clear and expanded. There is no demonstrated pleural abnormality. Normal size heart. Normal mediastinum and coco. Normal visualized pulmonary arteries. There are calcified plaques of the aortic arch. Normal visualized thoracic spine. Normal visualized ribs, clavicles, and shoulders. There is no demonstrated abnormality of the visualized soft tissue structures of the upper abdomen. RAD/Chest 1 View (Portable) IMPRESSION: Calcified plaques in the aortic arch. No acute cardiopulmonary disease process is seen. Chest findings are stable in the interval. Electronically Signed: Pedro Salvador MD at 20:05 EDT , Service support ,
[2019-06-29 19:54] LABS: Absolute Lymphocyte Count 2.03 X10^3/uL (0.83-4.51); Basophil# 0.05 X10^3/uL; Basophil% 0.6 % (0-1); Eosinophil# 0.02 X10^3/uL; Eosinophils% 0.2 % (0-5); Hematocrit 38.2 % (37-47); Hemoglobin 12.9 g/dL (12.0-15.0); Lymphocyte # 2.03 X10^3/ul (4.0); Lymphocyte % 22.7 % (19-41); Mean Corp Hgb Conc 33.8 g/dL (32-36); Mean Corpuscular Hgb 30.6 pg (27.0-32.0); Mean Corpuscular Volume 90.7 fL (81-99); Mean Platelet Vol. 9.7 fl (6.2-12.0); Monocyte# 0.79 X10^3/uL; Monocyte% 8.8 % (0-10); NRBC Flagged by Analyzer 0 % (0-5); Neutrophil # 5.95 X10^3/uL (2.7-7.7); Neutrophil % 66.6 % (47-70); Platelet Count 258 K/mm3 (150-450); RBC Distribution Width CV 13.5 % (11.6-14.6); RBC Distribution Width SD 44.3 fl (35.1-43.9); Red Blood Count 4.21 M/mm3 (4.2-5.4); White Blood Count 8.9 K/mm3 (4.4-11.0)
[2019-06-29 20:00] LABS: Anion Gap 11 (5-15); BUN 25 mg/dL (7-18); BUN/Creat Ratio 22.7 RATIO (10-20); Calcium,Total 9.3 mg/dL (8.5-10.1); Chloride 97 mmol/L (98-107); EST Glomerular Filtration Rate 52 mL/min (>60); Est Glom Filt Rate - Afr Amer 63 mL/min (>60); Estimated Creatinine Clearance 37.64 ml/min; Glucose 747 mg/dL (74-106); Potassium 4.4 mmol/L (3.5-5.1); Sodium Level 129 mmol/L (136-145)
[2019-06-29 20:10] LABS: D-Dimer Quantitative (DVT/PE) 0.85 FEU/ug/m (0.27-0.49)
--- NOTE | 2019-06-29 20:13 | CT_ITS ---
STUDY: CTA CHEST REASON FOR EXAM: Female, 69 years old. CP AND ELEVATED D-DIMER, SOB RADIATION DOSAGE (If Supplied By Facility): CTDIvol = ( 10.46 ) mGy, DLP = ( 358.62 ) mGycm TECHNIQUE: The examination was performed with the intravenous administration of IV 100mL Isovue-300. Post-processing of the angiographic images was performed, with multiplanar reformation and 3D reconstruction. Individualized dose optimization techniques were used for this CT. COMPARISON: None. FINDINGS: Normal enhancement of the main pulmonary artery and right and left pulmonary arteries. Normal enhancement of the bilateral peripheral pulmonary arteries. There is no demonstrated pulmonary embolism. There is mild dilatation of the main pulmonary artery measuring up to 3.1 cm in diameter. Normal thoracic aorta and visualized great vessels. There is no demonstrated aortic dissection. Coronary arterial calcifications are present. Normal mediastinum. Normal hilar regions. Normal visualized trachea and bronchi. The lungs are well expanded. Normal pulmonary parenchyma. Normal pleura. Normal chest wall structures. There are degenerative changes of thoracic spine. Normal visualized upper abdomen. CT/CTA Chest W/WO Contrast IMPRESSION: Normal CTA chest examination, without a demonstrated pulmonary embolism or arterial dissection. There is mild dilatation of the main pulmonary artery measuring up to 3.1 cm in diameter. This may be associated with pulmonary hypertension. Coronary arterial calcifications are present. Electronically Signed: Pedro Salvador MD at 20:56 EDT , Service support ,
[2019-06-29] MEDS: 0.9% Normal Saline 1,000 ML 999 ML IV (21:38)
[2019-06-29 21:55] VITALS: BP 156/129; PULSE 81; RESP 17; O2SAT 98
[2019-06-29 22:04] VITALS: BP 173/63; PULSE 78; RESP 16; O2SAT 99
[2019-06-29 22:35] LABS: Bedside Glucose 462 mg/dL (70-110)
[2019-06-29 22:54] VITALS: BP 171/83; PULSE 79; RESP 14; O2SAT 98
== END 2019-06-29 22:54 | disposition left against medical advice (07) ==
PROVIDERS: Emergency Provider Emergency Medicine; PCP Family Medicine Geriatric Medicine
DX: R07.9 Chest pain, unspecified (principal); E11.65 Type 2 diabetes mellitus with hyperglycemia; I10 Essential (primary) hypertension; E03.9 Hypothyroidism, unspecified; Z53.29 Procedure and treatment not carried out because of patient's decision for other reasons
CPT/HCPCS: 71045; 71275; 78306; 80048; 82962; 84484; 85025; 85379; 93005; 96360; 99285; J7030; Q9967; A4216

== ENCOUNTER → 2019-07-03 15:43 | Outpatient (CLI) | payer MEDICARE, SELFPAY ==
[2019-07-02 15:26] VITALS: BMI 24.7
[2019-07-03 17:39] LABS: Anion Gap 9 (5-15); BUN 19 mg/dL (7-18); BUN/Creat Ratio 21.8 RATIO (10-20); Calcium,Total 8.9 mg/dL (8.5-10.1); Chloride 102 mmol/L (98-107); Creatinine, Serum 0.87 mg/dL (0.55-1.02); EST Glomerular Filtration Rate 68 mL/min (>60); Est Glom Filt Rate - Afr Amer 83 mL/min (>60); Glucose 268 mg/dL (74-106); Potassium 4.4 mmol/L (3.5-5.1); Sodium Level 135 mmol/L (136-145)
== END ==
PROVIDERS: PCP Family Medicine Geriatric Medicine; Visit Provider Family Medicine Geriatric Medicine
DX: E87.1 Hypo-osmolality and hyponatremia (principal)
CPT/HCPCS: 36415; 80048

== ENCOUNTER → 2019-07-10 17:36 | Outpatient (CLI) | payer MEDICARE, SELFPAY ==
[2019-07-02 15:26] VITALS: BMI 24.7
== END ==
PROVIDERS: PCP Family Medicine Geriatric Medicine; Visit Provider Family Medicine Geriatric Medicine
DX: R68.83 Chills (without fever) (principal)
CPT/HCPCS: 87633

== ENCOUNTER → 2019-07-23 14:46 | Outpatient (CLI) | payer MEDICARE, SELFPAY ==
[2019-07-13 14:49] VITALS: BMI 23.9
--- NOTE | 2019-07-23 14:50 | RAD_ITS ---
STUDY: X-RAY - THORACIC SPINE REASON FOR EXAM: Female, 69 years old. CHRONIC NECK AND SHOULDER PAIN TECHNIQUE: 3 view(s) of the thoracic spine were obtained. COMPARISON: None. FINDINGS: Normal kyphosis of the thoracic spine. There is no substantial scoliosis. Normal thoracic vertebrae and endplates. There is multilevel disc space narrowing of the thoracic spine. The soft tissue structures are unremarkable. RAD/Thoracic Spine Min 4 Views IMPRESSION: Mild degree of disc space narrowing of the thoracic spine. Electronically Signed: Al Thacker, at 15:30 EDT , Service support ,
--- NOTE | 2019-07-23 14:50 | RAD_ITS ---
STUDY: X-RAY - CERVICAL SPINE REASON FOR EXAM: Female, 69 years old. CHRONIC NECK AND SHOULDER PAIN TECHNIQUE: 5 view(s) of the cervical spine were obtained including oblique views. COMPARISON: None FINDINGS: Normal anterior atlantoaxial articulation. Normal odontoid process. There is straightening of the normal cervical lordosis. Mild degree of disc space narrowing and anterior spondylosis at the C5-C6 level. Normal visualized intervertebral neuroforamina. There are atherosclerotic vascular calcifications of the carotid arteries. RAD/Cerv Spine 4 or 5 Views IMPRESSION: Mild degree of disc space narrowing with spondylosis at the C5-C6 level. Electronically Signed: Al Thacker, at 15:29 EDT , Service support ,
== END ==
LOC: RAD 14:48
PROVIDERS: PCP Family Medicine Geriatric Medicine; Referring Provider Anesthesiology Pain Medicine; Visit Provider Anesthesiology Pain Medicine
DX: M54.6 Pain in thoracic spine (principal)
CPT/HCPCS: 72050; 72074

== ENCOUNTER 2019-07-29 06:03 | Emergency (ER) | payer MEDICARE, SELFPAY ==
[2019-07-13 14:49] VITALS: BMI 23.9
[2019-07-29 06:03] VITALS: BP 137/76; PULSE 57; RESP 16; TEMP 36; O2SAT 98; BMI 24.1
--- NOTE | 2019-07-29 06:21 | RAD_ITS ---
STUDY: X-RAY - LUMBAR SPINE REASON FOR EXAM: Female, 69 years old. FELL -- PAIN FROM THE SHOULDER DOWN TO THE HIP ON THE RIGHT SIDE PER PT. TECHNIQUE: 3 view(s) of the lumbar spine were obtained. COMPARISON: None FINDINGS: There is straightening of the normal lumbar lordosis. There is no substantial scoliosis. There is a normal alignment of the vertebrae. Normal vertebral bodies and endplates. There is diffuse facet arthrosis. The soft tissue structures are unremarkable. RAD/Lumbar Spine 2 or 3 Views IMPRESSION: Negative x-ray examination of the lumbar spine for acute fracture. Electronically Signed: Migue Sanchez, at 6:51 EDT Tel , Service support ,
--- NOTE | 2019-07-29 06:22 | ED.DCSUM_ITS ---
History of Present Illness Chief Complaint: Fall Informant: Patient Narrative: Stated she had a mechanical fall 3 days ago. She stated she was standing on a stoop outside the house in turned around and misstep. She stepped off the stoop onto the ground approximately 2 feet below. She did fall that time. She is having pain in her right lower back. Worse with movement. Relieved with rest and laying on her left side. She is able to walk with a walker. She used Tylenol x1 this evening prior to coming in. Over the last couple days she has not taken anything for the pain. No previous injury to this area. Current severity is moderate. Denies any loss of consciousness. Denies any hip pain or difficulty moving her legs - Past Medical History (1) Chest pain Status: Acute (2) Diabetes Status: Chronic (3) Essential (primary) hypertension Status: Chronic (4) Hyperlipidemia Status: Chronic Past Medical History - Allergies and Home Meds Allergies/Adverse Reactions: Allergies diphenhydramine [From Benadryl] Allergy (Verified 07/29/19 06:11) Swelling Primary Care Physician: Alfonso Carlson Chi, MD [Primary Care Provider] - Prior records reviewed: Yes Past Medical History: - - See problem list Surgical History: - - section. Lives: With Family Smoking Status: Never smoker Alcohol: None Drugs: None - Family History Maternal Family History: Family History (Last Reviewed 07/11/19 @ 15:[address] Teja Valles MD) Unknown Breast cancer Colon cancer Diabetes Myocardial infarction Heart disease Hypertension Hyperlipidemia Family History: Reports: No pertinent history Paternal Family History: Family History (Last Reviewed 07/11/19 @ 15:[address] Teja Valles MD) Unknown Breast cancer Colon cancer Diabetes Myocardial infarction Heart disease Hypertension Hyperlipidemia Family History: Reports: No pertinent history Review of Systems General: Denies: Chills, Fever, Sweats Eyes: Denies: Visual changes - bilaterally, Diplopia ENT: Denies: Rhinorrhea, Sore throat Cardiovascular: Denies: Chest pain, Palpitations Respiratory: Denies: Dyspnea, Cough, Dyspnea on exertion Gastrointestinal: Denies: Abdominal pain, Nausea, Vomiting, Diarrhea, Melena, Hematochezia Genitourinary: Denies: Dysuria, Hematuria, Frequency Musculoskeletal: Reports: Back pain. Denies: Extremity Pain Skin: Denies: Rash, Wounds Neurological: Denies: Headache, Weakness, Numbness Physical Exam Vital Signs/Narrative: Vital Signs Temp Pulse Resp BP Pulse Ox 07/29/19 06:03 96.8 F L 57 L 16 137/76 H 98 General: Well nourished, Well developed, No Acute Distress Head: Normocephalic, Atraumatic Eyes: Perrl, EOMI ENT: Moist mucous membranes, No rhinorrhea Neck: Supple, Nontender Cardiovascular: Regular rate, Regular rhythm, No murmurs Respiratory: No distress, CTA bilaterally, Chest nontender Abdomen: Soft, Nontender, Nondistended, Normal bowel sounds Back: Normal Inspection, - - Tender in the right paraspinal musculature with mild decreased range of motion secondary to pain all rich no swelling or deformity. No rib pain. No pelvis pain. Negative for: Nontender, Spinal tenderness Extremities: Nontender, No edema Skin: Normal color, No rash Neurological: Alert, Oriented x3, Cranial nerves II-XII grossly intact, Normal Strength, Normal Sensation Psychological: Normal affect, Normal Mood Diagnostic/Tx/Re-eval - Medical Decision Making Given injection of morphine. X-ray of the lumbar spine obtained. X-ray shows chronic changes to the lumbar spine with chronic arthritic changes and age- related changes. Patient felt better after morphine. She will rest and ice and will get we will be given a short course of tramadol for home to use as needed ED Disposition - Plan for ED Patient: Disposition: Home or Assisted Living Diagnosis: Lumbar strain Instructions: ED LUMBAR SPRAIN/STRAIN Prescriptions: Hydrocodone Bitart/Apap 5-325 [[place] 5MG-325MG] 1 tablet PO Q4H PRN PRN 2 Days #10 tablet PRN Reason: Pain Transmission Status: Sent to [facility] Referrals: Alfonso Carlson Chi, MD [Primary Care Provider] -
[2019-07-29] MEDS: Morphine 2 MG/ML Syringe IM (06:25)
[2019-07-29 06:55] VITALS: RESP 16
--- NOTE | 2019-07-29 06:55 | ED.RN ---
shot time was observed for greater than 15 minutes. no reaction noted by this nurse.
== END 2019-07-29 07:06 | disposition home or self-care (01) ==
LOC: ED 06:51
PROVIDERS: Emergency Provider Emergency Medicine; PCP Family Medicine Geriatric Medicine
DX: S39.012A Strain of muscle, fascia and tendon of lower back, initial encounter (principal); E11.9 Type 2 diabetes mellitus without complications; I10 Essential (primary) hypertension; E78.5 Hyperlipidemia, unspecified; W19.XXXA Unspecified fall, initial encounter; Z79.4 Long term (current) use of insulin
CPT/HCPCS: 72100; 96372; 99282

== ENCOUNTER → 2019-07-30 15:12 | Outpatient (CLI) | payer MEDICARE, SELFPAY ==
[2019-07-29 06:03] VITALS: BMI 24.1
--- NOTE | 2019-07-30 15:30 | RAD_ITS ---
STUDY: X-RAY - PELVIS AND RIGHT HIP REASON FOR EXAM: Female, 69 years old. RIGHT HIP AND PELVIS PAIN S/P FALL 1 WEEK AGO TECHNIQUE: 3 views of the pelvis and hip. COMPARISON: None. FINDINGS: There is a non-specific bowel gas pattern. There are multiple calcified phleboliths. Normal bilateral iliac wings, sacroiliac joints and visualized sacrum. Normal bilateral superior and inferior pubic rami. Normal pubic symphysis. Normal bilateral ischial tuberosities. Normal visualized femoral head. There is osteoarthritic spur formation of the acetabular rim. There is moderate articular joint space narrowing of the hip. RAD/HIP, UNI W/ Pelvis 2-3 Views IMPRESSION: Osteoarthritis of both hip joints. Electronically Signed: Al Thacker, at 15:43 EDT , Service support ,
== END ==
LOC: RAD 15:13
PROVIDERS: PCP Family Medicine Geriatric Medicine; Referring Provider Family Medicine Geriatric Medicine; Visit Provider Family Medicine Geriatric Medicine
DX: M25.559 Pain in unspecified hip (principal)
CPT/HCPCS: 73502

== ENCOUNTER → 2019-08-06 14:51 | Outpatient (CLI) | payer MEDICARE, SELFPAY ==
[2019-07-29 06:03] VITALS: BMI 24.1
--- NOTE | 2019-08-06 14:53 | CT_ITS ---
STUDY: CT BRAIN WITHOUT CONTRAST REASON FOR EXAM: Female, 69 years old. CLOSED HEAD INJURY -- FALL X1 WEEK AGO HITTING BACK OF HEAD RADIATION DOSAGE (If Supplied By Facility): CTDIvol = ( 44.99 ) mGy, DLP = ( 745.49 ) mGycm TECHNIQUE: Transaxial CT imaging of the brain was performed without administration of intravenous contrast material. Individualized dose optimization techniques were used for this CT. COMPARISON: Comparison is made with prior study dated September 13, 2016. FINDINGS: Normal soft tissue structures. Normal calvarium. There is mild cerebral atrophy with widening of the extra-axial spaces and ventricular dilatation. There are areas of decreased attenuation within the white matter tracts of the supratentorial brain, consistent with microvascular disease changes. Normal basal ganglia and thalami. Normal brainstem. Normal cerebellum. There is no intracranial hemorrhage. There are no findings of an acute ischemic infarction. Normal visualized paranasal sinuses. CT/Brain/Head without Contrast IMPRESSION: Chronic involutional changes of the brain. Electronically Signed: Al Thacker, at 15:16 EDT , Service support ,
== END ==
LOC: CT 14:52
PROVIDERS: PCP Family Medicine Geriatric Medicine; Visit Provider Family Medicine Geriatric Medicine
DX: S09.90XA Unspecified injury of head, initial encounter (principal)
CPT/HCPCS: 70450

== ENCOUNTER → 2019-08-14 14:28 | Outpatient (CLI) | payer MEDICARE, SELFPAY ==
[2019-07-29 06:03] VITALS: BMI 24.1
[2019-08-14 14:58] LABS: Absolute Lymphocyte Count 3.33 X10^3/uL (0.83-4.51); Basophil# 0.03 X10^3/uL; Basophil% 0.3 % (0-1); Eosinophil# 0.05 X10^3/uL; Eosinophils% 0.5 % (0-5); Hematocrit 41.9 % (37-47); Hemoglobin 14.5 g/dL (12.0-15.0); Lymphocyte # 3.33 X10^3/ul (4.0); Lymphocyte % 32.4 % (19-41); Mean Corp Hgb Conc 34.6 g/dL (32-36); Mean Corpuscular Hgb 31.6 pg (27.0-32.0); Mean Corpuscular Volume 91.3 fL (81-99); Mean Platelet Vol. 9.9 fl (6.2-12.0); Monocyte# 0.84 X10^3/uL; Monocyte% 8.2 % (0-10); NRBC Flagged by Analyzer 0 % (0-5); Neutrophil # 5.97 X10^3/uL (2.7-7.7); Platelet Count 271 K/mm3 (150-450); RBC Distribution Width CV 14.1 % (11.6-14.6); RBC Distribution Width SD 47.5 fl (35.1-43.9); Red Blood Count 4.59 M/mm3 (4.2-5.4); White Blood Count 10.3 K/mm3 (4.4-11.0)
[2019-08-14 15:30] LABS: ALB/GLOB Ratio 0.8 RATIO (0.9-2.4); AST(SGOT) 13 U/L (15-37); Alanine Aminotransfer ALT/SGPT 23 U/L (13-56); Alkaline Phosphatase 82 U/L (45-117); Amylase 71 U/L (25-115); Anion Gap 10 (5-15); BUN 25 mg/dL (7-18); BUN/Creat Ratio 31.7 RATIO (10-20); Calcium,Total 9.4 mg/dL (8.5-10.1); Chloride 105 mmol/L (98-107); Creatinine, Serum 0.79 mg/dL (0.55-1.02); EST Glomerular Filtration Rate 77 mL/min (>60); Est Glom Filt Rate - Afr Amer 93 mL/min (>60); Globulin 3.6 g/dL (2.2-4.2); Glucose 229 mg/dL (74-106); Lipase 288 U/L (73-393); Potassium 4.1 mmol/L (3.5-5.1); Protein, Total 6.6 g/dL (6.4-8.2); Sodium Level 137 mmol/L (136-145)
--- NOTE | 2019-08-14 15:30 | RAD_ITS ---
STUDY: X-RAY - ABDOMEN/PELVIS REASON FOR EXAM: Female, 69 years old. LOWER ABDOMINAL PAIN X1 DAY TECHNIQUE: AP supine and upright views of the abdomen and pelvis. COMPARISON: None. FINDINGS: Normal visualized lung bases. There is a moderate amount of colonic fecal material. There is no demonstrated free abdominal air. The visualized liver, spleen and kidneys are grossly normal in size and morphology. There are calcified phleboliths in the pelvis. Normal visualized osseous structures. RAD/Abd Inc Decub and/or Erect IMPRESSION: Moderate amount of fecal material is seen in the colon. Electronically Signed: Al Thacker, at 15:45 EDT , Service support ,
== END ==
PROVIDERS: PCP Family Medicine Geriatric Medicine; Visit Provider Family Medicine Geriatric Medicine
DX: R10.13 Epigastric pain (principal); R10.9 Unspecified abdominal pain; N39.0 Urinary tract infection, site not specified
CPT/HCPCS: 36415; 74019; 80053; 82150; 83690; 85025; 87086; 87088

== ENCOUNTER → 2019-08-22 14:03 | Outpatient (CLI) | payer MEDICARE, SELFPAY ==
[2019-07-13 14:49] VITALS: BMI 23.9
[2019-07-29 06:03] VITALS: BMI 24.1
== END ==
LOC: LABSPEC 14:04
PROVIDERS: PCP Family Medicine Geriatric Medicine; Visit Provider Family Medicine Geriatric Medicine
DX: R19.7 Diarrhea, unspecified (principal)
CPT/HCPCS: 82274; 83630; 87177; 87209; 87493; 87506

== ENCOUNTER → 2019-09-12 14:07 | Outpatient (CLI) | payer MEDICARE, SELFPAY ==
--- NOTE | 2019-09-12 14:20 | RAD_ITS ---
STUDY: X-RAY - LEFT KNEE REASON FOR EXAM: Female, 69 years old. PAIN X3 WEEKS, NKI TECHNIQUE: 4 view(s) of the knee. COMPARISON: None. FINDINGS: Normal visualized distal femur. Normal visualized proximal tibia and fibula. Normal proximal tibiofibular articulation. There is moderate degenerative arthrosis of the medial femorotibial compartment with moderate joint space narrowing. Normal lateral femorotibial compartment. Normal patellofemoral articulation. Chondrocalcinosis of the lateral meniscus. There are atherosclerotic calcifications. RAD/Knee 4 or More Views IMPRESSION: Degenerative arthrosis. Electronically Signed: Al Thacker, at 15:36 EDT , Service support ,
--- NOTE | 2019-09-12 14:20 | RAD_ITS ---
STUDY: X-RAY - RIGHT KNEE REASON FOR EXAM: Female, 69 years old. Knee pain. TECHNIQUE: 4 view(s) of the knee. COMPARISON: None. FINDINGS: Normal visualized distal femur. Normal visualized proximal tibia and fibula. Normal proximal tibiofibular articulation. There is mild degenerative arthrosis of the medial femorotibial compartment. Normal lateral femorotibial compartment. Normal patellofemoral articulation. There are atherosclerotic calcifications. RAD/Knee 4 or More Views IMPRESSION: Degenerative arthrosis. Electronically Signed: Al Thacker, at 15:35 EDT , Service support ,
== END ==
LOC: RAD 14:16
PROVIDERS: PCP Family Medicine Geriatric Medicine; Referring Provider Anesthesiology; Visit Provider Anesthesiology
DX: M25.562 Pain in left knee (principal)
CPT/HCPCS: 73564

== ENCOUNTER → 2019-10-09 16:25 | Outpatient (CLI) | payer MEDICARE, SELFPAY ==
[2019-10-09 17:22] LABS: ALB/GLOB Ratio 0.9 RATIO (0.9-2.4); AST(SGOT) 13 U/L (15-37); Alanine Aminotransfer ALT/SGPT 32 U/L (13-56); Albumin, Serum 3.5 g/dL (3.2-5.0); Alkaline Phosphatase 94 U/L (45-117); Anion Gap 8 (5-15); BUN 21 mg/dL (7-18); BUN/Creat Ratio 17.8 RATIO (10-20); Calcium,Total 9.1 mg/dL (8.5-10.1); Chloride 99 mmol/L (98-107); Creatinine, Serum 1.18 mg/dL (0.55-1.02); EST Glomerular Filtration Rate 48 mL/min (>60); Est Glom Filt Rate - Afr Amer 58 mL/min (>60); Globulin 3.7 g/dL (2.2-4.2); Glucose 561 mg/dL (74-106); Magnesium 1.6 mg/dL (1.6-2.6); Protein, Total 7.2 g/dL (6.4-8.2); Sodium Level 134 mmol/L (136-145)
== END ==
PROVIDERS: PCP Family Medicine Geriatric Medicine; Visit Provider Family Medicine Geriatric Medicine
DX: M79.609 Pain in unspecified limb (principal)
CPT/HCPCS: 36415; 80053; 83735

== ENCOUNTER → 2019-10-23 14:25 | Outpatient (CLI) | payer MEDICARE, SELFPAY ==
[2019-10-23 17:04] LABS: Absolute Lymphocyte Count 3.08 X10^3/uL (0.83-4.51); Absolute Neutrophil Count 4.3 X10^3/uL (2.0-7.7); Basophil# 0.04 X10^3/uL; Basophil% 0.5 % (0-1); Eosinophil# 0.06 X10^3/uL; Eosinophils% 0.7 % (0-5); Hematocrit 45.4 % (37-47); Hemoglobin 15.3 g/dL (12.0-15.0); Lymphocyte # 3.08 X10^3/ul (4.0); Lymphocyte % 37.2 % (19-41); Mean Corp Hgb Conc 33.7 g/dL (32-36); Mean Corpuscular Hgb 31.7 pg (27.0-32.0); Mean Platelet Vol. 10.5 fl (6.2-12.0); Monocyte# 0.75 X10^3/uL; Monocyte% 9.1 % (0-10); NRBC Flagged by Analyzer 0 % (0-5); Neutrophil # 4.29 X10^3/uL (2.7-7.7); Neutrophil % 51.9 % (47-70); Platelet Count 296 K/mm3 (150-450); RBC Distribution Width CV 12.4 % (11.6-14.6); RBC Distribution Width SD 43.1 fl (35.1-43.9); Red Blood Count 4.83 M/mm3 (4.2-5.4); White Blood Count 8.3 K/mm3 (4.4-11.0)
[2019-10-23 17:17] LABS: ALB/GLOB Ratio 0.9 RATIO (0.9-2.4); AST(SGOT) 15 U/L (15-37); Alanine Aminotransfer ALT/SGPT 37 U/L (13-56); Albumin, Serum 3.5 g/dL (3.2-5.0); Alkaline Phosphatase 95 U/L (45-117); Anion Gap 5 (5-15); BUN 24 mg/dL (7-18); Calcium,Total 9.4 mg/dL (8.5-10.1); Chloride 104 mmol/L (98-107); EST Glomerular Filtration Rate 58 mL/min (>60); Est Glom Filt Rate - Afr Amer 70 mL/min (>60); Globulin 3.7 g/dL (2.2-4.2); Glucose 369 mg/dL (74-106); Potassium 4.3 mmol/L (3.5-5.1); Protein, Total 7.2 g/dL (6.4-8.2); Sodium Level 135 mmol/L (136-145); Thyroid Stim Hormone (TSH) 4.02 uIU/mL (0.358-3.74)
[2019-10-24 13:38] LABS: Vitamin D,25 Hydroxy 13.1 ng/mL
== END ==
LOC: POLAB3 14:25
PROVIDERS: PCP Family Medicine Geriatric Medicine; Visit Provider Family Medicine Geriatric Medicine
DX: E11.9 Type 2 diabetes mellitus without complications (principal); E55.9 Vitamin D deficiency, unspecified; I10 Essential (primary) hypertension
CPT/HCPCS: 36415; 80053; 82306; 84443; 85025

== ENCOUNTER → 2019-11-20 15:38 | Outpatient (CLI) | payer MEDICARE, SELFPAY | PROVIDERS: PCP Family Medicine Geriatric Medicine; Referring Provider Anesthesiology; Visit Provider Anesthesiology | DX: M54.16 Radiculopathy, lumbar region (principal) ==

== ENCOUNTER → 2019-12-05 16:48 | Outpatient (CLI) | payer MEDICARE, SELFPAY ==
--- NOTE | 2019-12-05 17:00 | RAD_ITS ---
STUDY: X-RAY - ABDOMEN/PELVIS REASON FOR EXAM: Female, 69 years old. FELT NAUSEOUS FOR LAST WEEK WITHOUT BEING ABLE TO VOMIT. PAIN IN MID ABDOMEN TECHNIQUE: Frontal views COMPARISON: None. FINDINGS: Normal visualized lung bases. There is an unremarkable bowel gas pattern. There is no demonstrated free abdominal air. The visualized liver, spleen and kidneys are grossly normal in size and morphology. Normal soft tissue structures. Normal visualized osseous structures. RAD/Abd Inc Decub and/or Erect IMPRESSION: Normal x-ray examination of the abdomen and pelvis. Electronically Signed: Dimitri Thayer DO at 19:57 EDT Tel [phone], Service support ,
== END ==
LOC: RAD 16:49
PROVIDERS: PCP Family Medicine Geriatric Medicine; Referring Provider Family Medicine Geriatric Medicine; Visit Provider Family Medicine Geriatric Medicine
DX: R10.9 Unspecified abdominal pain (principal)
CPT/HCPCS: 74019

== ENCOUNTER 2020-01-07 18:29 | Observation (INO) | payer MEDICARE, SELFPAY ==
[2020-01-07 18:30] VITALS: BP 107/64; PULSE 99; RESP 18; TEMP 36.4; O2SAT 97
--- NOTE | 2020-01-07 18:45 | EKG12_ITS ---
Test Reason : CP Blood Pressure : / mmHG Vent. Rate : 089 BPM Atrial Rate : 089 BPM P-R Int : 122 ms QRS Dur : 070 ms QT Int : 366 ms P-R-T Axes : 032 -28 097 degrees QTc Int : 445 ms Sinus rhythm with Premature atrial complexes Voltage criteria for left ventricular hypertrophy Nonspecific T wave abnormality Abnormal ECG Confirmed by BETZY KLEIN, CATHRYN ([id number]), legal editor CHECO VELASCO ([id number]) on 01/09/2020 9:36:06 AM Referred By: POOJA Confirmed By:CATHRYN BO MD
[2020-01-07] MEDS: Aspirin 81 MG TAB.CHEW 324 MG PO (19:32)
[2020-01-07] MEDS: Ondansetron 4 MG/2 ML Vial IV (19:32)
[2020-01-07] MEDS: Morphine 4 MG/ML Syringe IV (19:33)
[2020-01-07 19:38] LABS: Absolute Lymphocyte Count 1.97 X10^3/uL (0.83-4.51); Absolute Neutrophil Count 8.3 X10^3/uL (2.0-7.7); Basophil# 0.05 X10^3/uL; Basophil% 0.4 % (0-1); Eosinophil# 0.04 X10^3/uL; Eosinophils% 0.4 % (0-5); Hematocrit 46.3 % (37-47); Hemoglobin 16.4 g/dL (12.0-15.0); Lymphocyte # 1.97 X10^3/ul (4.0); Lymphocyte % 17.4 % (19-41); Mean Corp Hgb Conc 35.4 g/dL (32-36); Mean Corpuscular Hgb 31.4 pg (27.0-32.0); Mean Corpuscular Volume 88.5 fL (81-99); Mean Platelet Vol. 10.4 fl (6.2-12.0); Monocyte# 0.74 X10^3/uL; Monocyte% 6.6 % (0-10); NRBC Flagged by Analyzer 0 % (0-5); Neutrophil # 8.29 X10^3/uL (2.7-7.7); Neutrophil % 73.4 % (47-70); Platelet Count 395 K/mm3 (150-450); RBC Distribution Width CV 13.1 % (11.6-14.6); RBC Distribution Width SD 42.2 fl (35.1-43.9); Red Blood Count 5.23 M/mm3 (4.2-5.4); White Blood Count 11.3 K/mm3 (4.4-11.0)
--- NOTE | 2020-01-07 20:00 | RAD_ITS ---
STUDY: X-RAY CHEST REASON FOR EXAM: Female, 69 years old. chest pain TECHNIQUE: Single frontal view of the chest. COMPARISON: CT chest 06/29/2019 and chest x-ray same day FINDINGS: The lungs are clear and expanded. There is no demonstrated pleural abnormality. Normal size heart. Normal mediastinum and coco. Normal visualized pulmonary arteries. Normal visualized aortic arch and descending thoracic aorta. Normal visualized thoracic spine. Normal visualized ribs, clavicles, and shoulders. There is no demonstrated abnormality of the visualized soft tissue structures of the upper abdomen. RAD/Chest 1 View (Portable) IMPRESSION: Normal x-ray examination of the chest. Electronically Signed: Blair Sanchez MD at 20:53 EDT , Service support ,
[2020-01-07 20:41] LABS: Bedside Glucose 449 mg/dL (70-110)
[2020-01-07 20:50] LABS: D-Dimer Quantitative (DVT/PE) 2.45 FEU/ug/m (0.27-0.49)
--- NOTE | 2020-01-07 20:57 | CT_ITS ---
STUDY: CTA CHEST REASON FOR EXAM: Female, 69 years old. CP SINCE LAST NIGHT WORSE WITH AMBULATION, ELEVATED D-DIMER, HX DIAB, HTN RADIATION DOSAGE (If Supplied By Facility): CTDIvol = ( 6.01 ) mGy, DLP = ( 206.66 ) mGycm TECHNIQUE: The examination was performed with the intravenous administration of IV 100mL Isovue-370. Post-processing of the angiographic images was performed, with multiplanar reformation and 3D reconstruction. Individualized dose optimization techniques were used for this CT. COMPARISON: Chest x-ray from today and CTA chest 06/29/2019 FINDINGS: Normal enhancement of the main pulmonary artery and right and left pulmonary arteries. Normal enhancement of the bilateral peripheral pulmonary arteries. There is no demonstrated pulmonary embolism. Normal thoracic aorta and visualized great vessels. There is no demonstrated aortic dissection. Normal heart and pericardium. Calcific coronary artery disease. Normal mediastinum. Normal hilar regions. Normal visualized trachea and bronchi. Bilateral patchy groundglass opacities. Normal pulmonary parenchyma. Normal pleura. Normal chest wall structures. Normal osseous structures. Normal visualized upper abdomen. CT/CTA Chest W/WO Contrast IMPRESSION: Bilateral groundglass opacities typical for covid 19. Other etiologies not excluded. Coronary artery disease. Electronically Signed: Blair Sanchez MD at 22:14 EDT , Service support ,
[2020-01-07 21:04] LABS: Anion Gap 11 (5-15); BUN 35 mg/dL (7-18); BUN/Creat Ratio 26.5 RATIO (10-20); Calcium,Total 9.3 mg/dL (8.5-10.1); Chloride 99 mmol/L (98-107); Creatinine, Serum 1.32 mg/dL (0.55-1.02); EST Glomerular Filtration Rate 42 mL/min (>60); Est Glom Filt Rate - Afr Amer 51 mL/min (>60); Estimated Creatinine Clearance 34.25 ml/min; Glucose 475 mg/dL (74-106); Potassium 3.9 mmol/L (3.5-5.1); Sodium Level 130 mmol/L (136-145)
--- NOTE | 2020-01-07 21:19 | ED.VISSUMM ---
- ER Visit Summary Date of Service: 01/07/20 Chief Complaint: Chest pain History of Present Illness: The patient is a [address] Carlson. She is a poor informant. She reports that she has intermittent sharp chest pain that began yesterday. It lasted 5 minutes at a time. Is 10 on 10 at worst 9 a 10 currently. Is worsened by breathing. There is no change with exertion or movement. Is relieved by laying on her side. She reports has been nauseated and short of breath. She denies any diaphoresis or vomiting. There is no radiation of this pain. Patient reports that her blood sugars been 500 since this morning. She states that she took her normal dose of 7030 this morning and again at 6:00 tonight. Patient reports that her has the flu. He had was not tested for COVID. She denies a cough. She denies fever or chills. Physical Examination: Vitals: Stable. Afebrile. General: Well-nourished and well-developed. Head: Normocephalic atraumatic. Neck: Supple, no lymphadenopathy. No JVD. Nontender. Cardiovascular: Regular rate and rhythm. No murmurs. Respiratory: No respiratory distress. Clear to auscultation bilaterally. Abdominal: Soft, nontender, nondistended, normal bowel sounds. No guarding, rebound, or peritoneal signs. Back: Nontender. Extremities: Nontender, no edema. Skin: Normal color, no rash. Neurologic: Alert and oriented ?3. Cranial nerves II through XII are intact. Normal strength and sensation. Psych: Normal affect. Test Results: EKG is sinus at [address] changes. Initial troponin 0 0.127. D-dimer is 2.45. Chem-7 shows a sodium 130, CO2 of 20, BUN 35, creatinine 1.32, glucose 475. CBC shows a white count of 11.3 with a hemoglobin of 16.4, segmented for 73, lymphocytes 17, which are granulocytes 1.8%. Clinical Impression(s) from Imaging Studies Chest X-Ray 01/07/20 20:00 IMPRESSION: Normal x-ray examination of the chest. Electronically Signed: Blair Sanchez MD at 20:53 EDT , Service support , Chest CTA 01/07/20 20:57 IMPRESSION: Bilateral groundglass opacities typical for covid 19. Other etiologies not excluded. Coronary artery disease. Electronically Signed: lBair Sanchez MD at 22:14 EDT , Service support , Emergency Department Course and Treatment: Patient was given dose of morphine and Zofran IV. She was given a liter normal saline and insulin subcu. Treatment Plan: Patient is resting more comfortably. She has a history of noncompliance and is not reliable. I do not think that sending her home is in her best interest. She will be discussed with the hospitalist and admitted for further evaluation and treatment. Disposition: Admitted in improved condition. Impression: 1. COVID-19 pneumonia. 2. Indeterminate troponin. 3. Hyperglycemia with history of medication noncompliance. 3. Type 2 diabetes mellitus. This note was generated with [employer] dictation software. It may contain incorrect words, spelling, and punctuation that were not noted in review of the chart prior to signing ED Disposition - Plan for ED Patient: Referrals: Alfonso Carlson Chi, MD [Primary Care Provider] -
[2020-01-07] MEDS: Insulin Lispro 100 UNIT/ML INSULN.PEN 10 UNIT SC (21:33)
[2020-01-07] MEDS: 0.9% Normal Saline 1,000 ML 999 ML IV (21:33)
[2020-01-07 21:35] VITALS: BP 138/100; PULSE 76; RESP 14; O2SAT 95
[2020-01-07 23:21] VITALS: BP 96/53; PULSE 79; RESP 16; TEMP 36.3; O2SAT 96
[2020-01-07 23:31] VITALS: BP 148/79; PULSE 75; RESP 16; TEMP 36.3; O2SAT 95
--- NOTE | 2020-01-07 23:40 | PCM.HP.STD ---
Problem List (1) COVID-19 Status: Acute (2) Chest pain Status: Acute (3) Diabetes Status: Chronic Qualifiers: (4) Essential (primary) hypertension Status: Chronic (5) Hyperlipidemia Status: Chronic Qualifiers: History of Present Illness Date of Admission: 01/07/20 Chief Complaint: chest pain The patient is a 69 year old male patient who presents the emergency room with chest pain. Onset of this pain began earlier today and currently 9/10 substernal nonradiating to the shoulder or jaw. The patient states she has been around family members including her who was sick last week with cough and shortness of breath and subsequently patient tested positive today for COVID-19 by rapid test. Chest x-ray reveals ground glass opacities consistent with COVID-19 infection. The patient is also hyperglycemic with a blood sugar in the 400s and is unclear about her routine insulin dose and therefore an unreliable historian. She was reportedly noncompliant wearing her mask when asked to do so by the nursing staff but was compliant wearing the mask for me when I was in during my evaluation. The patient has a history of diabetes and hypertension as well and with her chest pain and elevated troponin she will be admitted to [facility] for management of her COVID-19 and chest pain. Past Medical History Past Medical History (Chronic Problems): Chronic Problems (Last Reviewed 07/13/19 @ 14:[address] Lv Olivera MD) Diabetes (Chronic) Essential (primary) hypertension (Chronic) Hyperlipidemia (Chronic) Medical History: Medical History (Last Reviewed 07/13/19 @ 14:[address] Lv Olivera MD) Essential (primary) hypertension (Chronic) I10 Hyperlipidemia (Chronic) E78.5 Arthritis M19.90 Back problem M53.9 Hormone deficiency E34.8 Seasonal allergies J30.2 Type 2 diabetes mellitus E11.9 Acute pancreatitis K85.90 Allergies diphenhydramine [From Benadryl] Allergy (Verified 07/29/19 06:11) Swelling Home Medications: Ambulatory Orders Medication Instructions Recorded lisinopril 2.5 mg tablet 2.5 mg PO DAILY 02/22/19 Metoprolol Tartrate [Lopressor 50 mg PO BID 03/06/19 (beta juany)] levothyroxine 25 mcg tablet 25 mcg PO DAILY #1 tab 05/08/19 rosuvastatin 5 mg tablet 5 mg PO DAILY 05/08/19 glimepiride 2 mg tablet 2 mg PO BID #60 tab 07/02/19 Insulin NPH/Reg 70/30 [Novolin 30 unit SUBCUT BID 01/07/20 70/30 U-100 Insulin] Surgical History: Surgical History (Last Reviewed 07/11/19 @ 15:[address] Teja Valles MD) History of Z98.891 Surgical History: - - section. 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 Teja Valles MD) Unknown Breast cancer Colon cancer Diabetes Myocardial infarction Heart disease Hypertension Hyperlipidemia History Items: No pertinent history Paternal Family History: Family History (Last Reviewed 07/11/19 @ 15:[address] Teja Valles MD) Unknown Breast cancer Colon cancer Diabetes Myocardial infarction Heart disease Hypertension Hyperlipidemia History Items: No pertinent history Review of Systems Constitutional: Denies: Chills, Fever, Weight Change HEENT: Denies: Head Aches, Sinus Congestion, Sinus Drainage Cardiovascular: Reports: Chest Pain. Denies: Palpitations Respiratory: Reports: Cough. Denies: Shortness of breath at rest, Sputum production Gastrointestinal: Denies: Abdominal Pain, Nausea, Vomiting Genitourinary: Denies: Dysuria Musculoskeletal: Denies: Joint Pain, Joint Tenderness Skin: Denies: Rash, Wounds Neurological: Denies: Numbness, Tingling, Focal weakness Psychiatric: Denies: Anxiety, Depression, Homicidal Ideations, Suicidal Ideations Hematologic/ Lymphatic: Denies: Easy Bruising, Easy Bleeding VTE Information - Inpt Only VTE Present on Admission: No VTE Mechan Device Prophylaxis: None VTE Pharm Prophylaxis ordered?: Yes Patient Problems: Active and Suspected Problems (Last Reviewed 07/13/19 @ 14:[address] Lv Olivera MD) COVID-19 (Acute) - Physical Exam Vitals/I&O's: Vital Signs Temp Pulse Resp BP Pulse Ox 97.4 F L 75 16 148/79 H 95 01/07/20 23:31 01/07/20 23:31 01/07/20 23:31 01/07/20 23:31 01/07/20 23:31 Oxygen Delivery Method Room Air Weight: 175 lb Body Mass Index (BMI) 30.0 Finger Stick Blood Glucose 449 Intake and Output for Last 24 Hours 01/05/20 01/06/20 01/07/20 23:59 23:59 23:59 Intake Total 999 Balance 999 General: Alert, Oriented x3, Cooperative HEENT: Atraumatic, Normocephalic Neck: Supple, Negative Carotid Bruits Lungs: Normal air movement, No rhonchi, Wheezes Cardiovascular: Regular rate, Regular Rhythm, Normal S1, Normal S2, No murmurs Abdomen: Bowel Sounds Present, Soft, Non Tender Extremities: No edema Skin: No rashes Musculoskeletal: No Tenderness to Palpation of Joints or Extremities Neurological: Neuro grossly intact Psych/Mental Status: Normal Affect, Appropriate Laboratory Results 01/07/20 19:12: COVID-19 (CRISTINO) Detected 01/07/20 19:30: WBC 11.3 H, RBC 5.23, Hgb 16.4 H, Hct 46.3, MCV 88.5, MCH 31.4, MCHC 35.4, RDW Std Deviation 42.2, RDW Coeff of Melvina 13.1, Plt Count 395, MPV 10.4, Immature Gran % (Auto) 1.800 H, Neut % (Auto) 73.4 H, Lymph % (Auto) 17.4 L, [place] % (Auto) 6.6, Eos % (Auto) 0.4, Baso % (Auto) 0.4, Absolute Neuts (auto) 8.3 H, Absolute Lymphs (auto) 1.97, Nucleated RBC % 0 01/07/20 19:30: Sodium Cancelled, Potassium Cancelled, Chloride Cancelled, Carbon Dioxide Cancelled, Anion Gap Cancelled, BUN Cancelled, Creatinine Cancelled, Estim Creat Clear Calc Cancelled, Est GFR (MDRD) Af Amer Cancelled, Est GFR (MDRD) Non-Af Cancelled, BUN/Creatinine Ratio Cancelled, Glucose Cancelled, Calcium Cancelled, Troponin I Cancelled 01/07/20 19:30: D-Dimer Quant (PE/DVT) Cancelled 01/07/20 20:17: Sodium 130 L, Potassium 3.9, Chloride 99, Carbon Dioxide 20.0 L, Anion Gap 11, BUN 35 H, Creatinine 1.32 H, Estim Creat Clear Calc 34.25, Est GFR (MDRD) Af Amer 51 L, Est GFR (MDRD) Non-Af 42 L, BUN/Creatinine Ratio 26.5 H, Glucose 475 H*, Calcium 9.3, Troponin I 0.127 H 01/07/20 20:17: D-Dimer Quant (PE/DVT) 2.45 H* 01/07/20 20:35: POC Glucose 449 H Assessment/Plan All Active Problems (Last Reviewed 07/13/19 @ 14:[address] Lv Olivera MD) COVID-19 (Acute) Chest pain (Acute) Acute kidney injury (Resolved) Hyperglycemic hyperosmolar state (Resolved) Hyponatremia (Resolved) Chronic Problems (Last Reviewed 07/13/19 @ 14:[address] Lv Olivera MD) Diabetes (Chronic) Essential (primary) hypertension (Chronic) Hyperlipidemia (Chronic) Plan 1. COVID-19 infection?admit patient for observation and COVID virus isolation, current pulse ox saturations are maintained in the 90s. Of note patient was being difficult wearing her mask with nursing staff earlier and I had advised the nursing supervisor [employer] to be aware of this. I was very direct in asking the patient to be compliant with her mask wearing especially when our staff are in the room. 2. Chest pain/elevated troponin?cycle cardiac enzymes, morphine, oxygen, nitroglycerin and aspirin per routine protocol. Repeat CBC BMP in the morning would recommend morning hospitalist has telephone conversation with cardiology to determine if cardiac stress testing or other testing is necessary patient whilst is infected with COVID 3. Diabetes with elevated blood sugar?continue basal insulin and add sliding scale coverage 4. Hypertension?continue home medications 5. Hyperlipidemia?continue statin 6. DVT prophylaxis?low molecular weight heparin OBSV E&M: [id number] Initial observation care L2
[2020-01-07 23:52] VITALS: BMI 23.5
[2020-01-08] VITALS (18 sets, daily range): BP systolic 105–176; BP diastolic 43–103; PULSE 63–82; RESP 10–20; TEMP 36.2–36.6; O2SAT 92–99
[2020-01-08] MEDS: Morphine 4 MG/ML Syringe IV ×2 (02:05→05:39)
[2020-01-08] MEDS: 0.9% Saline Lock 10 ML Syringe IV ×4 (02:06→18:14)
[2020-01-08] MEDS: Ondansetron 4 MG/2 ML Vial IV ×2 (02:07→18:14)
[2020-01-08 03:05] LABS: Absolute Lymphocyte Count 2.01 X10^3/uL (0.83-4.51); Absolute Neutrophil Count 8.5 X10^3/uL (2.0-7.7); Basophil# 0.03 X10^3/uL; Basophil% 0.3 % (0-1); Eosinophil# 0.04 X10^3/uL; Eosinophils% 0.3 % (0-5); Hematocrit 42.4 % (37-47); Hemoglobin 14.6 g/dL (12.0-15.0); Lymphocyte # 2.01 X10^3/ul (4.0); Lymphocyte % 17.5 % (19-41); Mean Corp Hgb Conc 34.4 g/dL (32-36); Mean Corpuscular Hgb 30.7 pg (27.0-32.0); Mean Corpuscular Volume 89.1 fL (81-99); Mean Platelet Vol. 9.8 fl (6.2-12.0); Monocyte# 0.77 X10^3/uL; Monocyte% 6.7 % (0-10); NRBC Flagged by Analyzer 0 % (0-5); Neutrophil # 8.49 X10^3/uL (2.7-7.7); Neutrophil % 73.9 % (47-70); Platelet Count 320 K/mm3 (150-450); RBC Distribution Width CV 12.9 % (11.6-14.6); RBC Distribution Width SD 42.3 fl (35.1-43.9); Red Blood Count 4.76 M/mm3 (4.2-5.4); White Blood Count 11.5 K/mm3 (4.4-11.0)
[2020-01-08 03:11] LABS: International Normalized Ratio 0.9
[2020-01-08 03:41] LABS: Anion Gap 6 (5-15); BUN 29 mg/dL (7-18); Calcium,Total 8.4 mg/dL (8.5-10.1); Chloride 99 mmol/L (98-107); Creatinine, Serum 0.97 mg/dL (0.55-1.02); EST Glomerular Filtration Rate 60 mL/min (>60); Est Glom Filt Rate - Afr Amer 73 mL/min (>60); Estimated Creatinine Clearance 42.68 ml/min; Glucose 214 mg/dL (74-106); Potassium 3.8 mmol/L (3.5-5.1); Sodium Level 133 mmol/L (136-145)
[2020-01-08] MEDS: proMETHazine 25 MG/ML Syringe 12.5 MG IV (05:39)
[2020-01-08] MEDS: Metoprolol Tartrate 50 MG Tablet PO ×2 (05:45→21:19)
[2020-01-08] MEDS: Lisinopril 2.5 MG Tablet PO (05:45)
[2020-01-08] MEDS: Levothyroxine 25 MCG TABLET PO (05:46)
--- NOTE | 2020-01-08 07:07 | PCM.PN.HOSP ---
Patient Problems: Active and Suspected Problems (Last Reviewed 07/13/19 @ 14:[address] Lv Olivera MD) COVID-19 (Acute) Reason for Visit: COVID 19 pneumonia Subjective: Patient is a 69-year-old gentleman admitted with chest pain. Imaging studies demonstrated bilateral opacities consistent with COVID-19. This was confirmed with serologic studies. Admitted for subsequent inpatient management Objective: GENERAL: cooperative HEENT: Atraumatic; EYES; Anicteric, Normal Conjunctiva NECK; supple, normal thyroid, RESPIRATORY: Diminished to auscultation CARDIOVASCULAR: Regular S1 S2, GI: soft, normoactive bowel sounds, : No Renal angle tenderness; EXTREMITIES: No edema, no clubbing, MUSCULOSKELETAL: no muscle waisting NEURO: Awake; no lateralizing signs. SKIN: No Rash PSYCH; Flat affect Vitals/I&O's: Vital Signs Temp Pulse Resp BP Pulse Ox 97.5 F L 82 20 H 176/78 H 98 01/08/20 03:00 01/08/20 05:45 01/08/20 03:00 01/08/20 05:45 01/08/20 03:00 Oxygen Flow Rate (L/min) 2 Oxygen Delivery Method Room Air Weight: 58.3 kg Body Mass Index (BMI) 23.5 Finger Stick Blood Glucose 449 Intake and Output for Last 24 Hours 01/06/20 01/07/20 01/08/20 23:59 23:59 23:59 Intake Total 1000 / 1000 240 / 240 Balance 1000 / 1000 240 / 240 Laboratory Results 01/07/20 19:12: COVID-19 (CRISTINO) Detected 01/07/20 19:30: WBC 11.3 H, RBC 5.23, Hgb 16.4 H, Hct 46.3, MCV 88.5, MCH 31.4, MCHC 35.4, RDW Std Deviation 42.2, RDW Coeff of Melvina 13.1, Plt Count 395, MPV 10.4, Immature Gran % (Auto) 1.800 H, Neut % (Auto) 73.4 H, Lymph % (Auto) 17.4 L, [place] % (Auto) 6.6, Eos % (Auto) 0.4, Baso % (Auto) 0.4, Absolute Neuts (auto) 8.3 H, Absolute Lymphs (auto) 1.97, Nucleated RBC % 0 01/07/20 19:30: Sodium Cancelled, Potassium Cancelled, Chloride Cancelled, Carbon Dioxide Cancelled, Anion Gap Cancelled, BUN Cancelled, Creatinine Cancelled, Estim Creat Clear Calc Cancelled, Est GFR (MDRD) Af Amer Cancelled, Est GFR (MDRD) Non-Af Cancelled, BUN/Creatinine Ratio Cancelled, Glucose Cancelled, Calcium Cancelled, Troponin I Cancelled 01/07/20 19:30: D-Dimer Quant (PE/DVT) Cancelled 01/07/20 20:17: Sodium 130 L, Potassium 3.9, Chloride 99, Carbon Dioxide 20.0 L, Anion Gap 11, BUN 35 H, Creatinine 1.32 H, Estim Creat Clear Calc 34.25, Est GFR (MDRD) Af Amer 51 L, Est GFR (MDRD) Non-Af 42 L, BUN/Creatinine Ratio 26.5 H, Glucose 475 H*, Calcium 9.3, Troponin I 0.127 H 01/07/20 20:17: D-Dimer Quant (PE/DVT) 2.45 H* 01/07/20 20:35: POC Glucose 449 H 01/08/20 00:10: Troponin I 0.180 H 01/08/20 02:55: WBC 11.5 H, RBC 4.76, Hgb 14.6, Hct 42.4, MCV 89.1, MCH 30.7, MCHC 34.4, RDW Std Deviation 42.3, RDW Coeff of Melvina 12.9, Plt Count 320, MPV 9.8, Immature Gran % (Auto) 1.300 H, Neut % (Auto) 73.9 H, Lymph % (Auto) 17.5 L, [place] % (Auto) 6.7, Eos % (Auto) 0.3, Baso % (Auto) 0.3, Absolute Neuts (auto) 8.5 H, Absolute Lymphs (auto) 2.01, Nucleated RBC % 0 01/08/20 02:55: PT 12.0, INR 0.9 01/08/20 02:55: Sodium 133 L, Potassium 3.8, Chloride 99, Carbon Dioxide 28.0, Anion Gap 6, BUN 29 H, Creatinine 0.97, Estim Creat Clear Calc 42.68, Est GFR (MDRD) Af Amer 73, Est GFR (MDRD) Non-Af 60, BUN/Creatinine Ratio 30.0 H, Glucose 214 H, Calcium 8.4 L 01/08/20 02:55: Troponin I 0.130 H Current Medications Aspirin (Aspirin, Baby) 81 mg PO DAILY@0800 [facility] Atorvastatin Calcium (Lipitor) 10 mg PO DAILY@2200 [facility] Enoxaparin Sodium (Lovenox) 40 mg SC DAILY [facility]imepir[facility] (Amaryl) [facility] Sodium Chloride () 250 mls @ 15 mls/hr IV .[id number] PRN PRN Reason: Saline Flush Levothyroxine Sodium (Synthroid) 25 mcg PO DAILY [facility] Last Admin: 01/08/20 05:46 Dose: 25 mcg Documented by: Lisinopril (Zestril) 2.5 mg PO DAILY [facility] Last Admin: 01/08/20 05:45 Dose: 2.5 mg Documented by: Metoprolol Tartrate (Lopressor (Beta Huan)) 50 mg PO BID [facility] Last Admin: 01/08/20 05:45 Dose: 50 mg Documented by: Morphine Sulfate () 4 mg IV Q3H PRN PRN PRN Reason: Pain Score 6-10/10 Last Admin: 01/08/20 05:39 Dose: 4 mg Documented by: Nitroglycerin (Nitrostat) 0.4 mg SUBLINGUAL Q5M PRN PRN Reason: CARDIAC/CHEST PAIN Ondansetron HCl (Zofran) 4 mg IV Q8H PRN PRN PRN Reason: NAUSEA/VOMITING Last Admin: 01/08/20 02:07 Dose: 4 mg Documented by: Sodium Chloride () 10 - 40 ml IV UD PRN PRN Reason: SALINE FLUSH Last Admin: 01/08/20 05:40 Dose: 20 ml Documented by: STROKE Vital Signs/Narrative: Vital Signs Pulse BP 01/08/20 05:45 82 176/78 H 01/08/20 04:00 77 Medical Necessity - Tobacco Use Smoking Status: Never smoker Assessment/Plan All Active Problems (Last Reviewed 07/13/19 @ 14:[address] Lv Olivera MD) COVID-19 (Acute) Chest pain (Acute) Acute kidney injury (Resolved) Hyperglycemic hyperosmolar state (Resolved) Hyponatremia (Resolved) Patient is a 69-year-old gentleman admitted with chest pain. Imaging studies demonstrated bilateral opacities consistent with COVID-19. This was confirmed with serologic studies. Admitted for subsequent inpatient management 1. COVID-19 pneumonia -Imaging studies as stated above demonstrated bilateral groundglass opacities typical for COVID-19 infection. Admitted to intensive care unit. Managed with Decadron, supplemental oxygen and patient placed on minoxidil 2 mg SC twice daily. Consultation was placed to both pulmonary medicine as well as infectious disease 2. Diabetes mellitus type II - uncontrolled With hyperglycemia. Patient oral hypoglycemic agents held with. Placed on long acting insulin (Adjusted dose), Accu-Cheks a.c. and at bedtime and covered with sliding scale insulin 5. Hypertension - Blood pressure controlled, home medications continued with dose adjustment as needed 4. Dyslipidemia -Patient is on statin therapy, continued at home dose 5. Hypothyroidism - Patient is on levothyroxine home dose continued 6. DVT prophylaxis ?Lovenox Advance planning; did discuss with the patient and family regarding advanced directives as well as CODE STATUS. Did explain the various scenarios involved ( FULL CODE, DNR CCA, DNR CCA with no intubation, and DNR CC and what each meant) patient elected to full code with CPR and intubation if warranted. Order was placed. Time spent on discussion 18 minutes. Clinical Impression(s) from Imaging Studies Chest X-Ray 01/07/20 20:00 IMPRESSION: Normal x-ray examination of the chest. Electronically Signed: Blair Sanchez MD at 20:53 EDT , Service support , Chest CTA 01/07/20 20:57 IMPRESSION: Bilateral groundglass opacities typical for covid 19. Other etiologies not excluded. Coronary artery disease. Electronically Signed: Blair Sanchez MD at 22:14 EDT , Service support , Inpatient E&M: [id number] [facility] L3 Procedures: 63507 Advncd Care Plan 30 Min
--- NOTE | 2020-01-08 07:23 | VDLE_ITS ---
Reason For Study: elevated D-Dimer RIGHT LEFT GSV is normal. GSV is normal. CFV is compressible, spontaneous, phasic, CFV is compressible, spontaneous, phasic, competent and demonstrates normal competent, and demonstrates normal augmentation. augmentation. FV is compressible, spontaneous, phasic, FV is compressible, spontaneous, phasic, competent and demonstrates normal competent and demonstrates normal augmentation. augmentation. POP V is compressible, spontaneous, phasic, POP V is compressible, spontaneous, phasic, competent and demonstrates normal competent and demonstrates normal augmentation. augmentation. T/P Trunk is compressible. T/P Trunk is compressible. PTV is compressible. PTV is compressible. Peroneal V and Soleus V are dilated and LT PerV is compressible. noncompressible. Procedure This is a venous duplex using B-mode, color flow and spectral Doppler. Exam performed portable in ICU/CCU. The exam was diagnostic. A preliminary report was called and/or faxed to an CARPET MEASURER. Interpretation Summary Acute deep vein thrombosis is noted in the right peroneal vein. Acute deep vein thrombosis is noted in the right soleus vein. The remainder of the right lower extremity deep venous system is patent and compressible. Deep veins of the left lower extremity are patent and compressible segmentally. There is no evidence of left lower extremity deep vein thrombosis. Valvular competence appears intact within the proximal deep venous systems bilaterally. The great saphenous veins appear bilaterally patent and compressible segmentally. Ordering Physician: Gilbert Don Performed By: Layton Wharton RVT
--- NOTE | 2020-01-08 07:32 | PCM.CONS.PUL ---
Reason for Consult Date of Consultation: 01/08/20 Reason for Consultation: COVID pneumonia History of Present Illness: The patient is a 69-year-old female, with a history as outlined below, who presented to the emergency department on January 06 with complaints of chest pain and shortness of breath. The patient does report that her stepson and were both tested and found to be positive for COVID within the last 2 weeks. She denies the presence of a cough or sputum production. She denied any fevers or chills in her home environment. On presentation to the emergency department, the patient was noted to be afebrile and hemodynamically stable. She was maintaining appropriate oxygen saturations on room air. Laboratory evaluation revealed a mildly elevated white blood cell count. D-dimer was elevated to 2.45. Chemistry profile was notable for a sodium of 130, bicarbonate of 20 and creatinine of 1.32. Glucose was elevated to 475. Troponin was mildly elevated to 0.127. Coronavirus PCR was positive. CTA chest demonstrated no evidence for pulmonary embolism. However, there was line confluence groundglass changes bilaterally along with basilar predominant bronchiectatic changes. The patient received supplemental IV fluid hydration and was admitted to the medical intensive care unit for further management. Past Medical History Past Medical History (Chronic Problems): Chronic Problems (Last Reviewed 07/13/19 @ 14:[address] Lv Olivera MD) Diabetes (Chronic) Essential (primary) hypertension (Chronic) Hyperlipidemia (Chronic) Medical History: Medical History (Last Reviewed 07/13/19 @ 14:[address] Lv Olivera MD) Essential (primary) hypertension (Chronic) I10 Hyperlipidemia (Chronic) E78.5 Arthritis M19.90 Back problem M53.9 Hormone deficiency E34.8 Seasonal allergies J30.2 Type 2 diabetes mellitus E11.9 Acute pancreatitis K85.90 Allergies diphenhydramine [From Benadryl] Allergy (Verified 07/29/19 06:11) Swelling Home Medications: Ambulatory Orders Medication Instructions Recorded lisinopril 2.5 mg tablet 2.5 mg PO DAILY 02/22/19 Metoprolol Tartrate [Lopressor 50 mg PO BID 03/06/19 (beta huan)] levothyroxine 25 mcg tablet 25 mcg PO DAILY #1 tab 05/08/19 rosuvastatin 5 mg tablet 5 mg PO DAILY 05/08/19 glimepiride 2 mg tablet 2 mg PO BID #60 tab 07/02/19 Insulin NPH/Reg 70/30 [Novolin 30 unit SUBCUT BID 01/07/20 70/30] Aspirin E.C. [Ecotrin] 325 mg PO DAILY@0800 #30 tab 01/08/20 Surgical History: Surgical History (Last Reviewed 07/11/19 @ 15:[address] Teja Valles MD) History of Z98.891 Surgical History: - - section. Psychiatric History: No pertinent psych hx [employer] History: No pertinent [employer] history Smoking Status: Never smoker - *Family History Maternal Family History: Family History (Last Reviewed 07/11/19 @ 15:[address] Teja Valles MD) Unknown Breast cancer Colon cancer Diabetes Myocardial infarction Heart disease Hypertension Hyperlipidemia History Items: No pertinent history Paternal Family History: Family History (Last Reviewed 07/11/19 @ 15:[address] Teja Valles MD) Unknown Breast cancer Colon cancer Diabetes Myocardial infarction Heart disease Hypertension Hyperlipidemia History Items: No pertinent history Review of Systems Constitutional: Denies: Chills, Fever Eyes: Denies: Blurred vision, Double vision HEENT: Denies: Head Aches, Sinus Congestion, Sinus Drainage Cardiovascular: Reports: Chest Pain Respiratory: Reports: Shortness of Breath. Denies: Cough, Sputum production Gastrointestinal: Denies: Abdominal Pain, Nausea, Vomiting Genitourinary: Denies: Dysuria Musculoskeletal: Denies: Joint Pain, Joint Tenderness Skin: Denies: Rash, Wounds Neurological: Denies: Numbness, Tingling, Focal weakness Psychiatric: Denies: Anxiety, Depression, Homicidal Ideations, Suicidal Ideations Hematologic/ Lymphatic: Denies: Hx of blood clot Patient Problems: Active and Suspected Problems (Last Reviewed 07/13/19 @ 14:[address] Lv Olivera MD) COVID-19 (Acute) Objective: The patient's most recent lab work, culture data and imaging studies have all been personally reviewed. Coronavirus PCR was positive on January 06. - Physical Exam Vitals/I&O's: Vital Signs Temp Pulse Resp BP Pulse Ox 97.5 F L 71 20 H 176/78 H 98 01/08/20 03:00 01/08/20 07:00 01/08/20 03:00 01/08/20 05:45 01/08/20 03:00 Oxygen Flow Rate (L/min) 2 Oxygen Delivery Method Room Air Weight: 128 lb 8.472 oz Body Mass Index (BMI) 23.5 Finger Stick Blood Glucose 449 Intake and Output for Last 24 Hours 01/06/20 01/07/20 01/08/20 23:59 23:59 23:59 Intake Total 1000 / 1000 240 / 240 Balance 1000 / 1000 240 / 240 General: Alert, Oriented x3, Cooperative, No apparent distress HEENT: Atraumatic, PERRLA, Normocephalic Oral: Moist Mucosa, No Gingival or Mucosal Lesions/ Ulcerations Neck: Supple, No Nodes, Trachea Midline Lungs: Normal air movement, - - Speaking in complete sentences. No accessory muscle use. Cardiovascular: Regular rate, Regular Rhythm Abdomen: Bowel Sounds Present, Soft, Non Tender Extremities: No clubbing, No cyanosis, No edema Skin: No breakdown Musculoskeletal: No Tenderness to Palpation of Joints or Extremities, No Muscle Wasting Lymphatic: No Cervical, Supraclavicular, or Inguinal Adenopathy Neurological: Cranial nerves II-XII grossly intact, Neuro grossly intact Psych/Mental Status: Alert and oriented to time, place, person, mood and affect Labs (Last 48 Hours) 01/07/20 01/07/20 01/07/20 19:12 19:30 19:30 WBC 11.3 H RBC 5.23 Hgb 16.4 H Hct 46.3 MCV 88.5 MCH 31.4 MCHC 35.4 RDW Std Deviation 42.2 RDW Coeff of Melvina 13.1 Plt Count 395 MPV 10.4 Immature Gran % (Auto) 1.800 H Neut % (Auto) 73.4 H Lymph % (Auto) 17.4 L [place] % (Auto) 6.6 Eos % (Auto) 0.4 Baso % (Auto) 0.4 Absolute Neuts (auto) 8.3 H Absolute Lymphs (auto) 1.97 Nucleated RBC % 0 PT INR D-Dimer Quant (PE/DVT) Sodium Cancelled Potassium Cancelled Chloride Cancelled Carbon Dioxide Cancelled Anion Gap Cancelled BUN Cancelled Creatinine Cancelled Estim Creat Clear Calc Cancelled Est GFR (MDRD) Af Amer Cancelled Est GFR (MDRD) Non-Af Cancelled BUN/Creatinine Ratio Cancelled Glucose Cancelled Calcium Cancelled Troponin I Cancelled COVID-19 (CRISTINO) Detected POC Glucose 01/07/20 01/07/20 01/07/20 19:30 20:17 20:17 WBC RBC Hgb Hct MCV MCH MCHC RDW Std Deviation RDW Coeff of Melvina Plt Count MPV Immature Gran % (Auto) Neut % (Auto) Lymph % (Auto) [place] % (Auto) Eos % (Auto) Baso % (Auto) Absolute Neuts (auto) Absolute Lymphs (auto) Nucleated RBC % PT INR D-Dimer Quant (PE/DVT) Cancelled 2.45 H* Sodium 130 L Potassium 3.9 Chloride 99 Carbon Dioxide 20.0 L Anion Gap 11 BUN 35 H Creatinine 1.32 H Estim Creat Clear Calc 34.25 Est GFR (MDRD) Af Amer 51 L Est GFR (MDRD) Non-Af 42 L BUN/Creatinine Ratio 26.5 H Glucose 475 H* Calcium 9.3 Troponin I 0.127 H COVID-19 (CRISTINO) POC Glucose 01/07/20 01/08/20 01/08/20 20:35 00:10 02:55 WBC 11.5 H RBC 4.76 Hgb 14.6 Hct 42.4 MCV 89.1 MCH 30.7 MCHC 34.4 RDW Std Deviation 42.3 RDW Coeff of Melvina 12.9 Plt Count 320 MPV 9.8 Immature Gran % (Auto) 1.300 H Neut % (Auto) 73.9 H Lymph % (Auto) 17.5 L [place] % (Auto) 6.7 Eos % (Auto) 0.3 Baso % (Auto) 0.3 Absolute Neuts (auto) 8.5 H Absolute Lymphs (auto) 2.01 Nucleated RBC % 0 PT INR D-Dimer Quant (PE/DVT) Sodium Potassium Chloride Carbon Dioxide Anion Gap BUN Creatinine Estim Creat Clear Calc Est GFR (MDRD) Af Amer Est GFR (MDRD) Non-Af BUN/Creatinine Ratio Glucose Calcium Troponin I 0.180 H COVID-19 (CRISTINO) POC Glucose 449 H 01/08/20 01/08/20 01/08/20 02:55 02:55 02:55 WBC RBC Hgb Hct MCV MCH MCHC RDW Std Deviation RDW Coeff of Melvina Plt Count MPV Immature Gran % (Auto) Neut % (Auto) Lymph % (Auto) [place] % (Auto) Eos % (Auto) Baso % (Auto) Absolute Neuts (auto) Absolute Lymphs (auto) Nucleated RBC % PT 12.0 INR 0.9 D-Dimer Quant (PE/DVT) Sodium 133 L Potassium 3.8 Chloride 99 Carbon Dioxide 28.0 Anion Gap 6 BUN 29 H Creatinine 0.97 Estim Creat Clear Calc 42.68 Est GFR (MDRD) Af Amer 73 Est GFR (MDRD) Non-Af 60 BUN/Creatinine Ratio 30.0 H Glucose 214 H Calcium 8.4 L Troponin I 0.130 H COVID-19 (CRISTINO) POC Glucose Clinical Impression(s) from Imaging Studies Chest X-Ray 01/07/20 20:00 IMPRESSION: Normal x-ray examination of the chest. Electronically Signed: Blair Sanchez MD at 20:53 EDT , Service support , Chest CTA 01/07/20 20:57 IMPRESSION: Bilateral groundglass opacities typical for covid 19. Other etiologies not excluded. Coronary artery disease. Electronically Signed: Blair Sanchez MD at 22:14 EDT , Service support , Current Medications Aspirin (Aspirin, Baby) 81 mg PO DAILY@0800 [facility] Atorvastatin Calcium (Lipitor) 10 mg PO DAILY@2200 [facility] Dexamethasone (Decadron) 6 mg PO DAILY@0800 [facility] Enoxaparin Sodium (Lovenox) 30 mg SC BID [facility] Sodium Chloride () 250 mls @ 15 mls/hr IV .[id number] PRN PRN Reason: Saline Flush Levothyroxine Sodium (Synthroid) 25 mcg PO DAILY [facility] Last Admin: 01/08/20 05:46 Dose: 25 mcg Documented by: Lisinopril (Zestril) 2.5 mg PO DAILY [facility] Last Admin: 01/08/20 05:45 Dose: 2.5 mg Documented by: Metoprolol Tartrate (Lopressor (Beta Huan)) 50 mg PO BID [facility] Last Admin: 01/08/20 05:45 Dose: 50 mg Documented by: Morphine Sulfate () 4 mg IV Q3H PRN PRN PRN Reason: Pain Score 6-10/10 Last Admin: 01/08/20 05:39 Dose: 4 mg Documented by: Nitroglycerin (Nitrostat) 0.4 mg SUBLINGUAL Q5M PRN PRN Reason: CARDIAC/CHEST PAIN Ondansetron HCl (Zofran) 4 mg IV Q8H PRN PRN PRN Reason: NAUSEA/VOMITING Last Admin: 01/08/20 02:07 Dose: 4 mg Documented by: Sodium Chloride () 10 - 40 ml IV UD PRN PRN Reason: SALINE FLUSH Last Admin: 01/08/20 05:40 Dose: 20 ml Documented by: Assessment/Plan All Active Problems (Last Reviewed 07/13/19 @ 14:[address] Lv Olivera MD) COVID-19 (Acute) Chest pain (Acute) Acute kidney injury (Resolved) Hyperglycemic hyperosmolar state (Resolved) Hyponatremia (Resolved) RECOMMENDATIONS: 1. I do not see an indication for Decadron at this time. 2. Given the patient's overall stable respiratory status, no further therapeutic intervention would be indicated including remdesevir or convalescent plasma. 3. Encourage incentive spirometer use and mobilize patient as tolerated. 4. Perform walking oximetry study prior to consideration for discharge home. 5. Infectious diseases consultation is pending. IMPRESSIONS: 1. COVID pneumonia The patient initially presented to the hospital with some chest pain and shortness of breath and was found to be positive for coronavirus. Subsequent chest imaging did not demonstrate evidence for PE, but did show non-confluent groundglass changes. The patient has not been hypoxemic throughout her hospital course. Therefore, I do not see any indication for any additional intervention or therapeutics at this time. Infectious diseases consultation is currently pending. In light of her mild disease, the patient can likely be discharged home with plans to continue to self quarantine. This note was generated with [employer] dictation software. It may contain incorrect words, spelling, and punctuation that were not noted in checking the note before signing. Inpatient E&M: 13480 Init Hosp L3
[2020-01-08] MEDS: dexAMETHasone 4 MG Tablet 6 MG PO (08:20)
[2020-01-08] MEDS: Aspirin 81 MG TAB.CHEW PO (08:20)
[2020-01-08] MEDS: Enoxaparin 30 MG/0.3 ML Syringe SC (08:22)
[2020-01-08 09:34] LABS: AST(SGOT) 19 U/L (15-37); Alanine Aminotransfer ALT/SGPT 27 U/L (13-56); Albumin, Serum 2.8 g/dL (3.2-5.0); Alkaline Phosphatase 109 U/L (45-117); Bilirubin, Direct 0.14 mg/dL (0.00-0.30); Protein, Total 6.8 g/dL (6.4-8.2)
--- NOTE | 2020-01-08 09:49 | CON.PCM_ITS ---
Problem List (1) COVID-19 Status: Acute Reason for Consult: covid Consulted by: Dr. Don History of Present Illness: The patient is a 69 year old F with DM, htn, presented with sharp, intermittent substernal chest pain. On 01/04, started to have fatigue, not feeling well, aches. No cough, SOB, change in taste/smell, headache, congestion, sore throat. Chest pain started yesterday, came to ED, admitted. No hypoxia, put on 2L for comfort. Pt reports and stepson with covid-like symptoms about 2 weeks ago, were not tested. Both have recovered. Feeling fine this AM, pain resolved. CT showed no PE. Full ROS performed and neg except as noted above. - Medical History Past Medical History (Chronic Problems): Chronic Problems (Last Reviewed 07/13/19 @ 14:[address] Lv Olivera MD) Diabetes (Chronic) Essential (primary) hypertension (Chronic) Hyperlipidemia (Chronic) Allergies/Adverse Reactions: Allergies diphenhydramine [From Benadryl] Allergy (Verified 07/29/19 06:11) Swelling Home Medications: Ambulatory Orders Medication Instructions Recorded lisinopril 2.5 mg tablet 2.5 mg PO DAILY 02/22/19 Metoprolol Tartrate [Lopressor 50 mg PO BID 03/06/19 (beta juany)] levothyroxine 25 mcg tablet 25 mcg PO DAILY #1 tab 05/08/19 rosuvastatin 5 mg tablet 5 mg PO DAILY 05/08/19 glimepiride 2 mg tablet 2 mg PO BID #60 tab 07/02/19 Insulin NPH/Reg 70/30 [Novolin 30 unit SUBCUT BID 01/07/20 70/30 U-100 Insulin] - Social History Tobacco Use: non-smoker Vital Signs Temp Pulse Resp BP Pulse Ox 97.6 F L 75 14 138/103 H 99 01/08/20 08:25 01/08/20 08:25 01/08/20 08:25 01/08/20 08:25 01/08/20 08:25 Oxygen Flow Rate (L/min) 2 Oxygen Delivery Method Nasal Cannula Weight: 58.3 kg Body Mass Index (BMI) 23.5 Finger Stick Blood Glucose 449 Laboratory Tests Past 24 Hrs 01/07/20 01/07/20 01/07/20 19:12 19:30 19:30 WBC 11.3 H RBC 5.23 Hgb 16.4 H Hct 46.3 MCV 88.5 MCH 31.4 MCHC 35.4 RDW Std Deviation 42.2 RDW Coeff of Melvina 13.1 Plt Count 395 MPV 10.4 Immature Gran % (Auto) 1.800 H Neut % (Auto) 73.4 H Lymph % (Auto) 17.4 L [place] % (Auto) 6.6 Eos % (Auto) 0.4 Baso % (Auto) 0.4 Absolute Neuts (auto) 8.3 H Absolute Lymphs (auto) 1.97 Nucleated RBC % 0 PT INR D-Dimer Quant (PE/DVT) Sodium Cancelled Potassium Cancelled Chloride Cancelled Carbon Dioxide Cancelled Anion Gap Cancelled BUN Cancelled Creatinine Cancelled Estim Creat Clear Calc Cancelled Est GFR (MDRD) Af Amer Cancelled Est GFR (MDRD) Non-Af Cancelled BUN/Creatinine Ratio Cancelled Glucose Cancelled Calcium Cancelled Total Bilirubin Direct Bilirubin AST ALT Alkaline Phosphatase Troponin I Cancelled Total Protein Albumin Globulin COVID-19 (CRISTINO) Detected 01/07/20 01/07/20 01/07/20 19:30 20:17 20:17 WBC RBC Hgb Hct MCV MCH MCHC RDW Std Deviation RDW Coeff of Melvina Plt Count MPV Immature Gran % (Auto) Neut % (Auto) Lymph % (Auto) [place] % (Auto) Eos % (Auto) Baso % (Auto) Absolute Neuts (auto) Absolute Lymphs (auto) Nucleated RBC % PT INR D-Dimer Quant (PE/DVT) Cancelled 2.45 H* Sodium 130 L Potassium 3.9 Chloride 99 Carbon Dioxide 20.0 L Anion Gap 11 BUN 35 H Creatinine 1.32 H Estim Creat Clear Calc 34.25 Est GFR (MDRD) Af Amer 51 L Est GFR (MDRD) Non-Af 42 L BUN/Creatinine Ratio 26.5 H Glucose 475 H* Calcium 9.3 Total Bilirubin Direct Bilirubin AST ALT Alkaline Phosphatase Troponin I 0.127 H Total Protein Albumin Globulin COVID-19 (CRISTINO) 01/08/20 01/08/20 01/08/20 00:10 02:55 02:55 WBC 11.5 H RBC 4.76 Hgb 14.6 Hct 42.4 MCV 89.1 MCH 30.7 MCHC 34.4 RDW Std Deviation 42.3 RDW Coeff of Melvina 12.9 Plt Count 320 MPV 9.8 Immature Gran % (Auto) 1.300 H Neut % (Auto) 73.9 H Lymph % (Auto) 17.5 L [place] % (Auto) 6.7 Eos % (Auto) 0.3 Baso % (Auto) 0.3 Absolute Neuts (auto) 8.5 H Absolute Lymphs (auto) 2.01 Nucleated RBC % 0 PT 12.0 INR 0.9 D-Dimer Quant (PE/DVT) Sodium Potassium Chloride Carbon Dioxide Anion Gap BUN Creatinine Estim Creat Clear Calc Est GFR (MDRD) Af Amer Est GFR (MDRD) Non-Af BUN/Creatinine Ratio Glucose Calcium Total Bilirubin Direct Bilirubin AST ALT Alkaline Phosphatase Troponin I 0.180 H Total Protein Albumin Globulin COVID-19 (CRISTINO) 01/08/20 01/08/20 01/08/20 02:55 02:55 02:55 WBC RBC Hgb Hct MCV MCH MCHC RDW Std Deviation RDW Coeff of Melvina Plt Count MPV Immature Gran % (Auto) Neut % (Auto) Lymph % (Auto) [place] % (Auto) Eos % (Auto) Baso % (Auto) Absolute Neuts (auto) Absolute Lymphs (auto) Nucleated RBC % PT INR D-Dimer Quant (PE/DVT) Sodium 133 L Potassium 3.8 Chloride 99 Carbon Dioxide 28.0 Anion Gap 6 BUN 29 H Creatinine 0.97 Estim Creat Clear Calc 42.68 Est GFR (MDRD) Af Amer 73 Est GFR (MDRD) Non-Af 60 BUN/Creatinine Ratio 30.0 H Glucose 214 H Calcium 8.4 L Total Bilirubin 0.40 Direct Bilirubin 0.14 AST 19 ALT 27 Alkaline Phosphatase 109 Troponin I 0.130 H Total Protein 6.8 Albumin 2.8 L Globulin 4.0 COVID-19 (CRISTINO) - Other Studies Radiology: [] Other Studies: [] Route of nutrition/ use of supplements: [] Nutritional Intake: [] IV Site: [] Mcpherson Catheter: [] - Physical Exam General: Alert, Oriented x3, Cooperative, No apparent distress HEENT: Atraumatic, PERRLA, EOMI Neck: Supple, No Nodes Lungs: Clear to auscultation, Normal air movement Cardiovascular: Regular rate, Regular Rhythm Abdomen: Soft, Non Tender, Non-Distended Extremities: No edema Skin: No rashes IV Site: Peripheral, without redness Musculoskeletal: No Tenderness to Palpation of Joints or Extremities Neurological: Cranial nerves II-XII grossly intact - Assessment/Plan Antibiotics: [] Assessment/Plan: [] Active and Suspected Problems (Last Reviewed 07/13/19 @ 14:[address] Lv Olivera MD) COVID-19 (Acute) Mild disease at this point. At risk for worsening at day 7-[address]- PE was neg. D-dimer was high. No hypoxia here, so would stop steroids as it leads to worse outcomes in this patient population. Ok for home with her continuing to monitor for worsening symptoms. Recommend home with ASA due to elevated d-dimer. Quarantine for 10 more days; sounds like her family at home already had covid but were not tested. Thank you, will follow as needed, d/w Dr. Raymundo and Dr. Don.
--- NOTE | 2020-01-08 10:21 | PCM.DC ---
- Discharge Diagnoses Current Active Problems: Current Active and Chronic Problems (Last Reviewed 07/13/19 @ 14:[address] Lv Olivera MD) COVID-19 (Acute) You will use the following diet at home:: Calorie/Carbohydrate Controlled (specify 1200, 1400, etc) - 1800 Your food should be the consistency of: Regular Call your doctor if you observe: Fever of 101 or Higher, Shortness of breath, Dizziness, Fainting spells, Chest pain, Calf discomfort, Uncontrolled pain Allergies/Adverse Reactions: Allergies diphenhydramine [From Benadryl] Allergy (Verified 07/29/19 06:11) Swelling Medications to take at Discharge lisinopril 2.5 mg tablet 2.5 mg PO DAILY 02/22/19 Metoprolol Tartrate [Lopressor (beta juany)] 50 mg PO BID 03/06/19 levothyroxine 25 mcg tablet 25 mcg PO DAILY #1 tab 05/08/19 rosuvastatin 5 mg tablet 5 mg PO DAILY 05/08/19 glimepiride 2 mg tablet 2 mg PO BID #60 tab 07/02/19 Insulin NPH/Reg 70/30 [Novolin 70/30] 30 unit SUBCUT BID 01/07/20 Aspirin E.C. [Ecotrin] 325 mg PO DAILY@0800 #30 tab 01/08/20 The following prescriptions were given: Aspirin E.C. [Ecotrin] 325 mg PO DAILY@0800 #30 tab Transmission Status: Pending to [id number] Primary Care Physician: Alfonso Carlson Chi, MD [Primary Care Provider] - Please follow up with your Primary Care Physician in: in 2 weeks after your 10 day quarantine Test Results: Test results from this visit will be discussed in further detail at your follow-up appointment, if applicable. Proposed Discharge Date: 01/08/20
--- NOTE | 2020-01-08 10:25 | PCM.DC.SUM ---
Discharge Date and Diagnosis - Problem List Patient Problems: Active and Suspected Problems (Last Reviewed 07/13/19 @ 14:[address] Lv Olivera MD) COVID-19 (Acute) Date of Admission: 01/07/20 Date of Discharge: 01/08/20 - Primary Discharge Diagnosis Acute Problems: Active Problems (Last Reviewed 07/13/19 @ 14:[address] Lv Olivera MD) COVID-19 (Acute) - Secondary Discharge Diagnosis Chronic Problems: Chronic Problems (Last Reviewed 07/13/19 @ 14:[address] Lv Olivera MD) Diabetes (Chronic) Essential (primary) hypertension (Chronic) Hyperlipidemia (Chronic) Hospital Course and Treatment Imaging Results: Clinical Impression(s) from Imaging Studies Chest X-Ray 01/07/20 20:00 IMPRESSION: Normal x-ray examination of the chest. Electronically Signed: Blair Sanchez MD at 20:53 EDT , Service support , Chest CTA 01/07/20 20:57 IMPRESSION: Bilateral groundglass opacities typical for covid 19. Other etiologies not excluded. Coronary artery disease. Electronically Signed: Blair Sanchez MD at 22:14 EDT , Service support , Operations: None Summary of Care Provided: Patient is a 69-year-old gentleman admitted with chest pain. Imaging studies demonstrated bilateral opacities consistent with COVID-19. This was confirmed with serologic studies. Admitted for subsequent inpatient management 1. COVID-19 pneumonia -Imaging studies as stated above demonstrated bilateral groundglass opacities typical for COVID-19 infection. Admitted to intensive care unit. Managed with Decadron, supplemental oxygen and patient placed on Lovenox 30 mg SC twice daily. Consultation was placed to both pulmonary medicine as well as infectious disease -She was seen by both pulmonary and ID. Dr. Blanchard with infectious disease recommended the patient could be discharged home on aspirin. Patient was not discharged home on Decadron since she was not requiring oxygen. Patient was however instructed to present back to the ED if he developed worsening chest pain, shortness of breath, persistent fever of 101. Patient was instructed to current time for 10 days and to follow-up with PCP following that. 2. Diabetes mellitus type II - uncontrolled With hyperglycemia. Patient oral hypoglycemic agents held with. Placed on long acting insulin (Adjusted dose), Accu-Cheks a.c. and at bedtime and covered with sliding scale insulin 5. Hypertension - Blood pressure controlled, home medications continued with dose adjustment as needed 4. Dyslipidemia -Patient is on statin therapy, continued at home dose 5. Hypothyroidism - Patient is on levothyroxine home dose continued 6. DVT prophylaxis ?Lovenox Patient Problems: Active and Suspected Problems (Last Reviewed 07/13/19 @ 14:[address] Lv Olivera MD) COVID-19 (Acute) - Physical Exam Vitals/I&O's: Vital Signs Temp Pulse Resp BP Pulse Ox 97.6 F L 72 19 H 136/54 H 94 01/08/20 08:25 01/08/20 10:17 01/08/20 10:21 01/08/20 10:17 01/08/20 10:21 Oxygen Flow Rate (L/min) 2 Oxygen Delivery Method Room Air Weight: 58.3 kg Body Mass Index (BMI) 23.5 Finger Stick Blood Glucose 449 Intake and Output for Last 24 Hours 01/06/20 01/07/20 01/08/20 23:59 23:59 23:59 Intake Total 1000 / 1000 240 / 240 Balance 1000 / 1000 240 / 240 General: Alert HEENT: Atraumatic Lungs: Diminished Cardiovascular: Regular rate, Regular Rhythm Neurological: Neuro grossly intact Psych/Mental Status: Normal Affect Laboratory Results 01/07/20 19:12: COVID-19 (CRIST[place]) Detected 01/07/20 19:30: WBC 11.3 H, RBC 5.23, Hgb 16.4 H, Hct 46.3, MCV 88.5, MCH 31.4, MCHC 35.4, RDW Std Deviation 42.2, RDW Coeff of Melvina 13.1, Plt Count 395, MPV 10.4, Immature Gran % (Auto) 1.800 H, Neut % (Auto) 73.4 H, Lymph % (Auto) 17.4 L, [place] % (Auto) 6.6, Eos % (Auto) 0.4, Baso % (Auto) 0.4, Absolute Neuts (auto) 8.3 H, Absolute Lymphs (auto) 1.97, Nucleated RBC % 0 01/07/20 19:30: Sodium Cancelled, Potassium Cancelled, Chloride Cancelled, Carbon Dioxide Cancelled, Anion Gap Cancelled, BUN Cancelled, Creatinine Cancelled, Estim Creat Clear Calc Cancelled, Est GFR (MDRD) Af Amer Cancelled, Est GFR (MDRD) Non-Af Cancelled, BUN/Creatinine Ratio Cancelled, Glucose Cancelled, Calcium Cancelled, Troponin I Cancelled 01/07/20 19:30: D-Dimer Quant (PE/DVT) Cancelled 01/07/20 20:17: Sodium 130 L, Potassium 3.9, Chloride 99, Carbon Dioxide 20.0 L, Anion Gap 11, BUN 35 H, Creatinine 1.32 H, Estim Creat Clear Calc 34.25, Est GFR (MDRD) Af Amer 51 L, Est GFR (MDRD) Non-Af 42 L, BUN/Creatinine Ratio 26.5 H, Glucose 475 H*, Calcium 9.3, Troponin I 0.127 H 01/07/20 20:17: D-Dimer Quant (PE/DVT) 2.45 H* 01/07/20 20:35: POC Glucose 449 H 01/08/20 00:10: Troponin I 0.180 H 01/08/20 02:55: WBC 11.5 H, RBC 4.76, Hgb 14.6, Hct 42.4, MCV 89.1, MCH 30.7, MCHC 34.4, RDW Std Deviation 42.3, RDW Coeff of Melvina 12.9, Plt Count 320, MPV 9.8, Immature Gran % (Auto) 1.300 H, Neut % (Auto) 73.9 H, Lymph % (Auto) 17.5 L, [place] % (Auto) 6.7, Eos % (Auto) 0.3, Baso % (Auto) 0.3, Absolute Neuts (auto) 8.5 H, Absolute Lymphs (auto) 2.01, Nucleated RBC % 0 01/08/20 02:55: PT 12.0, INR 0.9 01/08/20 02:55: Sodium 133 L, Potassium 3.8, Chloride 99, Carbon Dioxide 28.0, Anion Gap 6, BUN 29 H, Creatinine 0.97, Estim Creat Clear Calc 42.68, Est GFR (MDRD) Af Amer 73, Est GFR (MDRD) Non-Af 60, BUN/Creatinine Ratio 30.0 H, Glucose 214 H, Calcium 8.4 L 01/08/20 02:55: Troponin I 0.130 H 01/08/20 02:55: Total Bilirubin 0.40, Direct Bilirubin 0.14, AST 19, ALT 27, Alkaline Phosphatase 109, Total Protein 6.8, Albumin 2.8 L, Globulin 4.0 Current Medications Aspirin (Aspirin, Baby) 81 mg PO DAILY@0800 [facility] Last Admin: 01/08/20 08:20 Dose: 81 mg Documented by: Atorvastatin Calcium (Lipitor) 10 mg PO DAILY@2200 [facility] Dextrose (D50w Syringe) 0 gm IV X1 PRN; Protocol PRN Reason: Hypoglycemia Enoxaparin Sodium (Lovenox) 30 mg SC BID [facility] Last Admin: 01/08/20 08:22 Dose: 30 mg Documented by: Glucagon () 1 mg IM .X1 PRN PRN Reason: Hypoglycemia Sodium Chloride () 250 mls @ 15 mls/hr IV .[id number] PRN PRN Reason: Saline Flush Insulin Glargine (Lantus (Bkc)) 20 units SC 1100,2200 [facility] Insulin Human Lispro (Humalog Kwikpen (Bkc)) 0 unit SC ACHS [facility]; Protocol Insulin Human Lispro (Humalog Kwikpen (Bkc)) 10 unit SC TIDAC [facility] Levothyroxine Sodium (Synthroid) 25 mcg PO DAILY [facility] Last Admin: 01/08/20 05:46 Dose: 25 mcg Documented by: Lisinopril (Zestril) 2.5 mg PO DAILY [facility] Last Admin: 01/08/20 05:45 Dose: 2.5 mg Documented by: Metoprolol Tartrate (Lopressor (Beta Huan)) 50 mg PO BID [facility] Last Admin: 01/08/20 05:45 Dose: 50 mg Documented by: Morphine Sulfate () 4 mg IV Q3H PRN PRN PRN Reason: Pain Score 6-10/10 Last Admin: 01/08/20 05:39 Dose: 4 mg Documented by: Nitroglycerin (Nitrostat) 0.4 mg SUBLINGUAL Q5M PRN PRN Reason: CARDIAC/CHEST PAIN Ondansetron HCl (Zofran) 4 mg IV Q8H PRN PRN PRN Reason: NAUSEA/VOMITING Last Admin: 01/08/20 02:07 Dose: 4 mg Documented by: Sodium Chloride () 10 - 40 ml IV UD PRN PRN Reason: SALINE FLUSH Last Admin: 01/08/20 08:19 Dose: 10 ml Documented by: Discharge Diet: No Restrictions Call your doctor if you observe: Fever of 101 or Higher, Shortness of breath, Dizziness, Fainting spells, Chest pain, Calf discomfort, Uncontrolled pain Home Medications: Medications to take at Discharge lisinopril 2.5 mg tablet 2.5 mg PO DAILY 02/22/19 Metoprolol Tartrate [Lopressor (beta huan)] 50 mg PO BID 03/06/19 levothyroxine 25 mcg tablet 25 mcg PO DAILY #1 tab 05/08/19 rosuvastatin 5 mg tablet 5 mg PO DAILY 05/08/19 glimepiride 2 mg tablet 2 mg PO BID #60 tab 07/02/19 Insulin NPH/Reg 70/30 [Novolin 70/30] 30 unit SUBCUT BID 01/07/20 Aspirin E.C. [Ecotrin] 325 mg PO DAILY@0800 #30 tab 01/08/20 Following Prescriptions Were Given to Patient: Aspirin E.C. [Ecotrin] 325 mg PO DAILY@0800 #30 tab Transmission Status: Pending to [id number] Primary Care Physician: Alfonso Carlson Chi, MD [Primary Care Provider] - Please follow up with your Primary Care Physician in: in 2 weeks after your 10 day quarantine Disposition: Home Minutes spent on discharge:: 35 Patient Condition:: Stable Medical Necessity - Tobacco Use Smoking Status: Never smoker Meaningful Use Info Meaningful Use Diagnoses (Choose all that apply): None applicable Inpatient E&M: 19997 Disch Hosp
--- NOTE | 2020-01-08 10:57 | CASEMGMT ---
MARKIE BURDEN assessment: Phone interview with patient due to COVID + for initial transition planning/care coordination assessment. MARKIE BURDEN introduced self and role at [facility], pt voices understanding and consents. Pt is A/Ox4 at this time and answers all questions appropriately at this time. Pt is currently on room air with a pulse ox of 94%. Care providers, pharmacy, and demographics verified. Pt understands that she will need to quarantine for the next 10 days. Pt states that her is done with his quarantine at this time. Presentation: Chest pain since last night. Worse w/ ambulation Admitting dx: COVID +, chest pain PCP: [facility] Specialists: Pt states no current specialists. Preferred [facility]acy: [facility] Insurance: [facility] Prescription Benefit: AnthR Living Will/HPOA: Pt states does not have LW/HPOA and declines AD info at this time. LNOK: Juventino Ahumada, Living Arrangements: Pt states lives with in 1 story home and states no concerns at home at this time. Pt states is independent with ADL's. Transportation: Pt states drives and states no transportation concerns at this time. DME/HHC: Pt states has a walker but no other DME and declines need for further DME at this time. Pt states no hx of HHC or SNF in the past. Pt states no concerns with going home at time of discharge. Pt states is retired. Pt states does not smoke cigarettes or drink ETOH. Pt states no further concerns/needs at this time. CM to follow for any further discharge planning/needs. Advised pt to ask for CM if any further questions/concerns/needs arise, voices understanding. Pt Goal: Home Plan: Home [place] MARKIE BURDEN
[2020-01-08] MEDS: Insulin Lispro 100 UNIT/ML INSULN.PEN 21 UNIT SC (12:14)
[2020-01-08 13:30] LABS: Bedside Glucose > 500 mg/dL (70-110)
[2020-01-08 13:30] LABS: Bedside Glucose 481 mg/dL (70-110)
[2020-01-08] MEDS: APIXABAN 5 MG TABLET 10 MG PO ×2 (16:05→21:19)
[2020-01-08] MEDS: Insulin Lispro 100 UNIT/ML INSULN.PEN SC ×2 (16:07→21:20)
[2020-01-08] MEDS: Insulin Lispro 100 UNIT/ML INSULN.PEN 15 UNIT SC (16:08)
[2020-01-08 16:21] LABS: Bedside Glucose 339 mg/dL (70-110)
[2020-01-08] MEDS: Atorvastatin Calcium 10 MG Tablet PO (21:19)
[2020-01-08 21:30] LABS: Bedside Glucose 416 mg/dL (70-110)
[2020-01-09] VITALS: BP 122/51; PULSE 60; RESP 15; TEMP 36.4; O2SAT 96
[2020-01-09 04:00] VITALS: BP 164/44; PULSE 58; PULSE 59; RESP 11; TEMP 36.4; O2SAT 94
[2020-01-09 05:59] LABS: Hematocrit 40.2 % (37-47); Hemoglobin 13.7 g/dL (12.0-15.0); Mean Corp Hgb Conc 34.1 g/dL (32-36); Mean Corpuscular Hgb 31.1 pg (27.0-32.0); Mean Corpuscular Volume 91.4 fL (81-99); Mean Platelet Vol. 10.2 fl (6.2-12.0); Platelet Count 289 K/mm3 (150-450); RBC Distribution Width CV 13.1 % (11.6-14.6); RBC Distribution Width SD 43.8 fl (35.1-43.9); White Blood Count 11.3 K/mm3 (4.4-11.0)
[2020-01-09 06:07] LABS: D-Dimer Quantitative (DVT/PE) 3.16 FEU/ug/m (0.27-0.49)
[2020-01-09 06:18] LABS: Alkaline Phosphatase 93 U/L (45-117); Anion Gap 5 (5-15); BUN 32 mg/dL (7-18); BUN/Creat Ratio 36.9 RATIO (10-20); CRP 4.84 mg/L (0.0-3.0); Calcium,Total 8.5 mg/dL (8.5-10.1); Chloride 102 mmol/L (98-107); Creatinine, Serum 0.87 mg/dL (0.55-1.02); EST Glomerular Filtration Rate 68 mL/min (>60); Est Glom Filt Rate - Afr Amer 83 mL/min (>60); Estimated Creatinine Clearance 47.59 ml/min; Ferritin 222 ng/mL (8-252); Glucose 210 mg/dL (74-106); Magnesium 1.9 mg/dL (1.6-2.6); Potassium 4.3 mmol/L (3.5-5.1); Sodium Level 133 mmol/L (136-145)
[2020-01-09 07:25] VITALS: O2SAT 94
[2020-01-09 08:00] VITALS: BP 145/62; PULSE 56; PULSE 76; RESP 14; TEMP 36.6; O2SAT 97
[2020-01-09 08:39] LABS: Procalcitonin 0.14 ng/mL (0.00-0.09)
[2020-01-09] MEDS: Aspirin 81 MG TAB.CHEW PO (08:57)
[2020-01-09 08:58] VITALS: PULSE 64
[2020-01-09] MEDS: Metoprolol Tartrate 50 MG Tablet PO (08:58)
[2020-01-09] MEDS: Lisinopril 2.5 MG Tablet PO (08:58)
[2020-01-09] MEDS: Insulin Lispro 100 UNIT/ML INSULN.PEN SC (08:59)
[2020-01-09] MEDS: Insulin Lispro 100 UNIT/ML INSULN.PEN 15 UNIT SC (08:59)
--- NOTE | 2020-01-09 09:05 | DCINST_ITS ---
- Discharge Diagnoses Current Active Problems: Current Active and Chronic Problems (Last Reviewed 07/13/19 @ 14:[address] Lv Olivera MD) COVID-19 (Acute) Call your doctor if you observe: Fever of 101 or Higher, Shortness of breath, Dizziness, Fainting spells, Chest pain, Calf discomfort, Uncontrolled pain Allergies/Adverse Reactions: Allergies diphenhydramine [From Benadryl] Allergy (Verified 07/29/19 06:11) Swelling Medications to take at Discharge lisinopril 2.5 mg tablet 2.5 mg PO DAILY 02/22/19 Metoprolol Tartrate [Lopressor (beta juany)] 50 mg PO BID 03/06/19 levothyroxine 25 mcg tablet 25 mcg PO DAILY #1 tab 05/08/19 rosuvastatin 5 mg tablet 5 mg PO DAILY 05/08/19 glimepiride 2 mg tablet 2 mg PO BID #60 tab 07/02/19 Insulin NPH/Reg 70/30 [Novolin 70/30] 30 unit SUBCUT BID 01/07/20 Apixaban [Eliquis] 5 mg PO BID #120 tab 01/09/20 The following prescriptions were given: Apixaban [Eliquis] 5 mg PO BID #120 tab Transmission Status: Pending to [id number] Primary Care Physician: Alfonso Carlson Chi, MD [Primary Care Provider] - Please follow up with your Primary Care Physician in: in 2 weeks after your 10 day quarantine Test Results: Test results from this visit will be discussed in further detail at your follow- up appointment, if applicable. Proposed Discharge Date: 01/09/20
[2020-01-09 09:11] LABS: Bedside Glucose 177 mg/dL (70-110)
[2020-01-09] MEDS: APIXABAN 5 MG TABLET 10 MG PO (09:12)
--- NOTE | 2020-01-09 09:48 | CASEMGMT ---
Pt to be sent home on Eliquis at discharge and med e-scribed to [facility]. Call to [facility] and per rep, pt's co-pay for 120tabs is $231.74. Pharmacy is aware that pt to be sent home with Eliquis 30day free trial card at this time and he states he will have to split the script into 60 tabs and 60tabs for the card to be applied. Pt updated via phone on all at this time, voices understanding. This RN CM also completed OTTO form via phone with pt at this time d/t COVID infection and pt gave verbal signature to this RN CM at this time. Pt states was not provided a MCR IP vs OBS booklet on admission so this RN CM provided at this time along with a copy of OTTO form. Original OTTO to chart. Pt voices no further questions/concerns/needs at this time. [place] RN CM
--- NOTE | 2020-01-09 10:05 | PHA.DC.MC ---
Pharmacy Service has performed discharge medication reconciliation and counseling for this patient. 1. APIXABAN 10MG PO BID X 6 DAYS, THEN 5MG PO BID THEREAFTER The patient's discharge medication list was reviewed for discrepancies and discrepancies were resolved. Home Medications lisinopril 2.5 mg tablet 2.5 mg PO DAILY 02/22/19 Metoprolol Tartrate [Lopressor (beta juany)] 50 mg PO BID 03/06/19 levothyroxine 25 mcg tablet 25 mcg PO DAILY #1 tab 05/08/19 rosuvastatin 5 mg tablet 5 mg PO DAILY 05/08/19 glimepiride 2 mg tablet 2 mg PO BID #60 tab 07/02/19 Insulin NPH/Reg 70/30 [Novolin 70/30] 30 unit SUBCUT BID 01/07/20 Apixaban [Eliquis] 5 mg PO BID #120 tab 01/09/20 The patient was counseled on the following discharge medications and changes in medications for homegoing were reviewed. The Reason for Use, instructions for use, and potential side effects were reviewed for all new medications. The patient's questions regarding all of their medications were answered. The patient was able to verbally demonstrate an understanding of their discharge medications. Patient counseled via telephone d/t LINK petty.
[2020-01-09] MEDS: Levothyroxine 25 MCG TABLET PO (11:02)
== END 2020-01-09 12:16 | disposition home or self-care (01) ==
LOC: ED 18:54 → ICU 23:23
PROVIDERS: Internal Medicine Infectious Disease; Admitting Provider Family Medicine; Emergency Provider Emergency Medicine; PCP Family Medicine Geriatric Medicine; Visit Provider Internal Medicine
DX: U07.1 COVID-19 (principal); J12.89 Other viral pneumonia; E78.5 Hyperlipidemia, unspecified; I82.461 Acute embolism and thrombosis of right calf muscular vein; I82.451 Acute embolism and thrombosis of right peroneal vein; I10 Essential (primary) hypertension; E03.9 Hypothyroidism, unspecified; E11.65 Type 2 diabetes mellitus with hyperglycemia; M19.90 Unspecified osteoarthritis, unspecified site; Z79.899 Other long term (current) drug therapy; Z79.4 Long term (current) use of insulin; Z91.14 Patient's other noncompliance with medication regimen; Z79.82 Long term (current) use of aspirin
CPT/HCPCS: 71045; 71275; 80048; 80076; 82728; 82962; 83735; 84075; 84145; 84484; 85025; 85027; 85379; 85610; 86140; 87635; 93005; 93970; 96361; 96372; 96374; 96375; 96376; 99218; 99285; J7030; Q9967; A4216; G0378; J2405; U0003

== ENCOUNTER → 2020-02-18 14:21 | Outpatient (CLI) | payer MEDICARE, SELFPAY ==
[2020-01-07 23:52] VITALS: BMI 23.5
[2020-02-18 17:10] LABS: Absolute Lymphocyte Count 2.82 X10^3/uL (0.83-4.51); Absolute Neutrophil Count 5.5 X10^3/uL (2.0-7.7); Basophil# 0.04 X10^3/uL; Basophil% 0.5 % (0-1); Eosinophil# 0.02 X10^3/uL; Eosinophils% 0.2 % (0-5); Hematocrit 44.4 % (37-47); Hemoglobin 14.3 g/dL (12.0-15.0); Lymphocyte # 2.82 X10^3/ul (4.0); Lymphocyte % 31.9 % (19-41); Mean Corp Hgb Conc 32.2 g/dL (32-36); Mean Corpuscular Hgb 31.2 pg (27.0-32.0); Mean Corpuscular Volume 96.7 fL (81-99); Mean Platelet Vol. 10.4 fl (6.2-12.0); Monocyte# 0.45 X10^3/uL; Monocyte% 5.1 % (0-10); NRBC Flagged by Analyzer 0 % (0-5); Neutrophil # 5.47 X10^3/uL (2.7-7.7); Neutrophil % 61.8 % (47-70); Platelet Count 295 K/mm3 (150-450); RBC Distribution Width CV 13.6 % (11.6-14.6); RBC Distribution Width SD 48.5 fl (35.1-43.9); Red Blood Count 4.59 M/mm3 (4.2-5.4); White Blood Count 8.8 K/mm3 (4.4-11.0)
[2020-02-18 17:22] LABS: Vitamin D,25 Hydroxy 12.2 ng/mL
[2020-02-18 17:32] LABS: ALB/GLOB Ratio 0.9 RATIO (0.9-2.4); AST(SGOT) 17 U/L (15-37); Alanine Aminotransfer ALT/SGPT 35 U/L (13-56); Albumin, Serum 3.4 g/dL (3.2-5.0); Alkaline Phosphatase 96 U/L (45-117); Anion Gap 12 (5-15); BUN 18 mg/dL (7-18); BUN/Creat Ratio 17.1 RATIO (10-20); Calcium,Total 9.3 mg/dL (8.5-10.1); Chloride 102 mmol/L (98-107); Creatinine, Serum 1.05 mg/dL (0.55-1.02); EST Glomerular Filtration Rate 55 mL/min (>60); Est Glom Filt Rate - Afr Amer 66 mL/min (>60); Globulin 3.9 g/dL (2.2-4.2); Glucose 347 mg/dL (74-106); Potassium 4.2 mmol/L (3.5-5.1); Protein, Total 7.3 g/dL (6.4-8.2); Sodium Level 136 mmol/L (136-145); Thyroid Stim Hormone (TSH) 2.55 uIU/mL (0.358-3.74)
== END ==
PROVIDERS: PCP Family Medicine Geriatric Medicine; Visit Provider Family Medicine Geriatric Medicine
DX: E03.9 Hypothyroidism, unspecified (principal); E11.9 Type 2 diabetes mellitus without complications; E55.9 Vitamin D deficiency, unspecified; I10 Essential (primary) hypertension
CPT/HCPCS: 36415; 80053; 82306; 84443; 85025

== ENCOUNTER → 2020-03-11 17:36 | Outpatient (CLI) | payer MEDICARE, SELFPAY ==
[2020-01-07 23:52] VITALS: BMI 23.5
== END ==
PROVIDERS: PCP Family Medicine Geriatric Medicine; Referring Provider Family Medicine Geriatric Medicine; Visit Provider Family Medicine Geriatric Medicine
DX: R06.89 Other abnormalities of breathing (principal)
CPT/HCPCS: 87633; 87635; C9803; U0003

== ENCOUNTER → 2020-03-31 17:15 | Outpatient (CLI) | payer MEDICARE, SELFPAY ==
[2020-01-07 23:52] VITALS: BMI 23.5
[2020-03-31 17:50] LABS: Absolute Lymphocyte Count 3.26 X10^3/uL (0.83-4.51); Absolute Neutrophil Count 3.8 X10^3/uL (2.0-7.7); Basophil# 0.05 X10^3/uL; Basophil% 0.6 % (0-1); Eosinophil# 0.07 X10^3/uL; Eosinophils% 0.9 % (0-5); Hematocrit 46.7 % (37-47); Hemoglobin 15.5 g/dL (12.0-15.0); Lymphocyte # 3.26 X10^3/ul (4.0); Lymphocyte % 40.5 % (19-41); Mean Corp Hgb Conc 33.2 g/dL (32-36); Mean Corpuscular Hgb 30.1 pg (27.0-32.0); Mean Corpuscular Volume 90.7 fL (81-99); Mean Platelet Vol. 9.7 fl (6.2-12.0); Monocyte# 0.85 X10^3/uL; Monocyte% 10.6 % (0-10); NRBC Flagged by Analyzer 0 % (0-5); Neutrophil % 47.2 % (47-70); Platelet Count 296 K/mm3 (150-450); RBC Distribution Width CV 13.2 % (11.6-14.6); RBC Distribution Width SD 43.1 fl (35.1-43.9); Red Blood Count 5.15 M/mm3 (4.2-5.4); White Blood Count 8.1 K/mm3 (4.4-11.0)
[2020-03-31 18:30] LABS: ALB/GLOB Ratio 0.9 RATIO (0.9-2.4); AST(SGOT) 20 U/L (15-37); Alanine Aminotransfer ALT/SGPT 32 U/L (13-56); Albumin, Serum 3.7 g/dL (3.2-5.0); Alkaline Phosphatase 80 U/L (45-117); Anion Gap 7 (5-15); BUN 14 mg/dL (7-18); BUN/Creat Ratio 16.9 RATIO (10-20); Calcium,Total 9.8 mg/dL (8.5-10.1); Chloride 104 mmol/L (98-107); Creatinine, Serum 0.83 mg/dL (0.55-1.02); EST Glomerular Filtration Rate 72 mL/min (>60); Est Glom Filt Rate - Afr Amer 87 mL/min (>60); Globulin 4.1 g/dL (2.2-4.2); Glucose 181 mg/dL (74-106); Potassium 3.9 mmol/L (3.5-5.1); Protein, Total 7.8 g/dL (6.4-8.2); Sodium Level 136 mmol/L (136-145)
--- NOTE | 2020-03-31 20:25 | CT_ITS ---
STUDY: CT ABDOMEN AND PELVIS WITH CONTRAST REASON FOR EXAM: Female, 70 years old. LLQ PAIN SINCE 1 AM TODAY RADIATION DOSAGE (If Supplied By Facility): CTDIvol = ( 13.12 ) mGy, DLP = ( 522.59 ) mGycm TECHNIQUE: Transaxial images were obtained from the dome of the diaphragm to the symphysis pubis with oral contrast. Oral and amp; IV Gastrografin and amp; 100mL Isovue-370 was administered. Sagittal and coronal images were reconstructed. Individualized dose optimization techniques were used for this CT. COMPARISON: None. FINDINGS: The visualized lung bases are unremarkable. The visualized portions of the heart are within normal limits. Normal liver. Normal gallbladder and extrahepatic biliary system. Normal spleen. Normal pancreas. Normal bilateral adrenal glands. Normal right kidney. Normal left kidney. Normal visualized stomach. Normal small intestine. Marked fecal retention seen. Otherwise grossly normal colon. The appendix is visualized and appears normal. There is diffuse atherosclerotic calcification of the abdominal aorta, without a demonstrated aneurysm. Normal inferior vena cava. Normal retroperitoneum. Normal urinary bladder. There is absence of the uterus consistent with a prior hysterectomy. Stable areas of soft tissue density, partially calcified in the lower anterior wall and bilateral buttocks. Normal osseous structures. CT/Abdomen/Pelvis WITH Contrast IMPRESSION: Marked fecal retention. No gross acute abnormalities. Electronically Signed: Jayden Ayala MD at 21:31 EST , Service support ,
== END ==
LOC: POLAB3 17:16 → CT 17:44
PROVIDERS: PCP Family Medicine Geriatric Medicine; Visit Provider Family Medicine Geriatric Medicine
DX: R10.9 Unspecified abdominal pain (principal); N39.0 Urinary tract infection, site not specified
CPT/HCPCS: 36415; 74177; 80053; 85025; 87086; 87186; Q9967

== ENCOUNTER → 2020-04-08 17:05 | Outpatient (CLI) | payer MEDICARE, SELFPAY ==
[2020-01-07 23:52] VITALS: BMI 23.5
--- NOTE | 2020-04-08 17:15 | RAD_ITS ---
HISTORY: left hip and mid pelvic pain since this past Tuesday. ADDITIONAL HISTORY: None provided. EXAMINATION/TECHNIQUE: XR Hip Unilateral with Pelvis when performed; 2-3 Views Left Number of images including paperwork: 3 COMPARISON: 07/30/2019, 01/24/2019 FINDINGS: BONES: No acute fracture. JOINTS: No subluxation. Mild to moderate degenerative changes of the hips. Degenerative changes of the sacroiliac joints, symphysis pubis and the cervical spine. SOFT TISSUES: No distinct foreign body. Vascular calcifications. RAD/HIP, UNI W/ Pelvis 2-3 Views IMPRESSION: Degenerative changes without acute osseous abnormality. at 0737 Reported and signed by: Meredith Hall MD Electronically Signed: Meredith Hall MD at 7:37 EST Tel , Service support ,
== END ==
LOC: RAD 17:08
PROVIDERS: PCP Family Medicine Geriatric Medicine; Visit Provider Family Medicine Geriatric Medicine
DX: M25.559 Pain in unspecified hip (principal)
CPT/HCPCS: 73502

== ENCOUNTER 2020-04-09 02:54 | Emergency (ER) | payer MEDICARE, SELFPAY ==
[2020-01-07 23:52] VITALS: BMI 23.5
[2020-04-09 02:55] VITALS: BP 162/77; PULSE 105; RESP 16; TEMP 36.4; O2SAT 97; BMI 24.7
--- NOTE | 2020-04-09 02:57 | ED.DCSUM_ITS ---
History of Present Illness Chief Complaint: Lower Extremity Injury Informant: Patient Onset: Days - Onset Tuesday Context: Sudden Onset Timing: Continuous Quality: Pain Location: Left inguinal area radiating to the knee Current Severity: Mild Maximum Severity: Severe Worsened by: Weightbearing Relieved by: Nothing Associated Symptoms: None Narrative: Patient is 70-year-old woman with history hypertension, diabetes who presents with atraumatic left hip pain. She points to the left inguinal area and states that radiates distally to the knee. She denies paresthesia, anesthesia motors. She denies fever or chills. She denies history of osteoarthritis, gout or pseudogout. She states she was seen by her PCP and placed on anti-inflammatory. I was informed by radiology she had a x-ray performed at 5 PM on April 08. Prior similar symptoms: Yes Recent Illness/Hospitalization: Yes Capacity - Capacity Assessment Tool Can the patient make a choice & communicate that choice?: Yes Can the patient understand benefits, risks and alternatives?: Yes Can the patient make a logical, rational choice?: Yes Is the choice the patient makes consistent w/ their values?: Yes - Patient negotiating treatment and requesting pain medicines otherwise not compliant with treatment Is there an impending, emergent risk to the patient?: No Does the patient have an Advance Directive?: Unable to Determine Is there a Surrogate Available?: No i.e. HCPOA: No i.e. close relative (spouse, child, parent, sibling)?: No - Past Medical History (1) COVID-19 Status: Acute (2) Diabetes Status: Chronic (3) Essential (primary) hypertension Status: Chronic (4) Hyperlipidemia Status: Chronic Past Medical History - Allergies and Home Meds Allergies/Adverse Reactions: Allergies diphenhydramine [From Benadryl] Allergy (Verified 04/09/20 02:59) Swelling Primary Care Physician: Alfonso Carlson Chi, MD [Primary Care Provider] - Prior records reviewed: Yes - Has history of chronic back pain. Surgical History: - - section. Lives: Spouse/ Significant Other Smoking Status: Never smoker Alcohol: None Drugs: None - Family History Maternal Family History: Family History (Last Reviewed 07/11/19 @ 15:[address] Teja Valles MD) Unknown Breast cancer Colon cancer Diabetes Myocardial infarction Heart disease Hypertension Hyperlipidemia Family History: Reports: No pertinent history Paternal Family History: Family History (Last Reviewed 07/11/19 @ 15:[address] Teja Valles MD) Unknown Breast cancer Colon cancer Diabetes Myocardial infarction Heart disease Hypertension Hyperlipidemia Family History: Reports: No pertinent history Review of Systems General: Denies: Chills, Fever, Malaise, Subjective, Sweats ENT: Reports: Bilateral ear pain, Rhinorrhea, Sore throat Cardiovascular: Reports: Chest pain, Palpitations Respiratory: Reports: Dyspnea, Cough, Sputum, Dyspnea on exertion Gastrointestinal: Reports: Abdominal pain, Nausea, Vomiting, Diarrhea Genitourinary: Denies: Dysuria, Hematuria, Frequency Musculoskeletal: Reports: Extremity Pain. Denies: Myalgias, Arthralgias, Neck pain, Back pain, Swelling Skin: Denies: Rash, Wounds Neurological: Denies: Weakness, Parasthesia Endocrine: Denies: Polyuria, Polydipsia Hematologic: Denies: Easy bruising, Easy bleeding Physical Exam Vital Signs/Narrative: Vital Signs Temp Pulse Resp BP Pulse Ox 04/09/20 02:55 97.6 F L 105 H 16 162/77 H 97 Inital Vital Signs reviewed: Yes General: Well nourished, Well developed, - - Patient grimaces and has facial expression when the left lower extremity is palpated. Head: Normocephalic, Atraumatic Eyes: Perrl, EOMI. Negative for: Pale conjunctiva, Scleral icterus ENT: Moist mucous membranes, No rhinorrhea Neck: Supple, Nontender, No lymphadenopathy, No JVD Cardiovascular: Regular rate, Regular rhythm, No murmurs, Normal S1, Normal S2 Respiratory: No distress, CTA bilaterally Rectal: Deferred : - - There is no pain outpatient in the pelvis. Extremities: No edema, Tenderness - There is tenderness out of proportion to tactile stimulus left inguinal area, proximal left anterior thigh and lateral proximal left thigh. Negative for: Nontender Skin: Normal color, No rash, No Trauma. Negative for: Cyanosis, Diaphoresis, Jaundice Neurological: Alert, Oriented x3, Cranial nerves II-XII grossly intact, Normal Strength, Normal Sensation Psychological: Depressed Diagnostic/Tx/Re-eval Chest X-Ray - ED: Read by ED Physician, - - Read diagnostic section The x-rays of the left hip were reviewed by me. There is no official radiology read. X-ray reveals no evidence of fracture. There may be slight degenerative changes noted left greater trochanteric region. 3 views were performed. Laboratory Results 04/09/20 04/09/20 03:07 03:07 WBC 7.6 RBC 4.81 Hgb 14.5 Hct 43.1 MCV 89.6 MCH 30.1 MCHC 33.6 RDW Std Deviation 43.2 RDW Coeff of Melvina 13.2 Plt Count 308 MPV 9.7 Immature Gran % (Auto) 0.700 Neut % (Auto) 78.6 H Lymph % (Auto) 19.4 [place] % (Auto) 1.2 Eos % (Auto) 0.0 Baso % (Auto) 0.1 Absolute Neuts (auto) 5.9 Absolute Lymphs (auto) 1.47 Nucleated RBC % 0 ESR 18 Sodium 132 L Potassium 4.5 Chloride 100 Carbon Dioxide 22.0 Anion Gap 10 BUN 27 H Creatinine 1.52 H Estim Creat Clear Calc 26.85 Est GFR (MDRD) Af Amer 43 L Est GFR (MDRD) Non-Af 36 L BUN/Creatinine Ratio 17.8 Glucose 558 H* Calcium 9.0 Total Creatine Kinase 56 CBC is unremarkable. Basic metabolic panel remarkable for a creatinine of 1.52. Most recent creatinine prior to today was normal at 0.82. Blood sugar is elevated 558 with a normal CO2 and anion gap. 1 L of normal saline was ordered and 10 units of subcu insulin for the hyperglycemia. Since patient has history of chronic pain and has pain out of proportion to tactile stimulus she was offered Tylenol for her discomfort. - Medical Decision Making Straight and blood work was ordered. I was informed by radiology she had an x- ray at approximately 5 PM yesterday evening. Will review images. Patient was informed that her x-rays that were performed as an outpatient are unremarkable. Patient was offered Tylenol for her pain. Patient does have history of chronic back pain requesting opiate analgesia. She was treated for her hyperglycemia. Patient refused insulin and IV fluids because I would not give her anything other than Tylenol. Patient will sign out AGAINST MEDICAL ADVICE. Patient understands that she may epileptiform 1 or more activities of daily living, develop DKA, hyperosmolar hyperglycemia coma, more invasive and aggressive means to treat her by leaving AGAINST MEDICAL ADVICE, may require l yon support. May result in physical, cognitive or psychological disability. Fall which may rate resultant fracture, injury to brain requiring surgery. Semivegetative vegetative state and or ED Disposition - Plan for ED Patient: Disposition: Against Medical Advice Diagnosis: Hyperglycemia due to diabetes mellitus, Acute pain of left thigh, Elevated serum creatinine, Acute renal insufficiency, Hypertension associated with diabetes, Sinus tachycardia seen on director of cardiac rehabilitation Instructions: ED Diabetic Hyperglycemia, ED Renal Insufficiency, ED Muscle Strain, Extremity Referrals: Alfonso Carslon Chi, MD [Primary Care Provider] - 2 Days Additional Instructions: 1. You need to drink more fluids 2. You need to be compliant with your diet 3. You should not take ibuprofen or naproxen (Aleve). This may result in worsening renal injury.
[2020-04-09 03:23] LABS: Absolute Lymphocyte Count 1.47 X10^3/uL (0.83-4.51); Absolute Neutrophil Count 5.9 X10^3/uL (2.0-7.7); Basophil# 0.01 X10^3/uL; Basophil% 0.1 % (0-1); Hematocrit 43.1 % (37-47); Hemoglobin 14.5 g/dL (12.0-15.0); Lymphocyte # 1.47 X10^3/ul (4.0); Lymphocyte % 19.4 % (19-41); Mean Corp Hgb Conc 33.6 g/dL (32-36); Mean Corpuscular Hgb 30.1 pg (27.0-32.0); Mean Corpuscular Volume 89.6 fL (81-99); Mean Platelet Vol. 9.7 fl (6.2-12.0); Monocyte# 0.09 X10^3/uL; Monocyte% 1.2 % (0-10); NRBC Flagged by Analyzer 0 % (0-5); Neutrophil # 5.94 X10^3/uL (2.7-7.7); Neutrophil % 78.6 % (47-70); Platelet Count 308 K/mm3 (150-450); RBC Distribution Width CV 13.2 % (11.6-14.6); RBC Distribution Width SD 43.2 fl (35.1-43.9); Red Blood Count 4.81 M/mm3 (4.2-5.4); White Blood Count 7.6 K/mm3 (4.4-11.0)
[2020-04-09 03:28] LABS: Erythrocyte Sedimentation Rate 18 mm/hr (0-30)
[2020-04-09 03:35] LABS: Anion Gap 10 (5-15); BUN 27 mg/dL (7-18); BUN/Creat Ratio 17.8 RATIO (10-20); CPK Total, Creatine Kinase 56 U/L (26-192); Chloride 100 mmol/L (98-107); Creatinine, Serum 1.52 mg/dL (0.55-1.02); EST Glomerular Filtration Rate 36 mL/min (>60); Est Glom Filt Rate - Afr Amer 43 mL/min (>60); Estimated Creatinine Clearance 26.85 ml/min; Glucose 558 mg/dL (74-106); Potassium 4.5 mmol/L (3.5-5.1); Sodium Level 132 mmol/L (136-145)
[2020-04-09] MEDS: 0.9% Normal Saline 1,000 ML 1000 ML IV (03:54)
[2020-04-09] MEDS: Insulin Lispro 100 UNIT/ML INSULN.PEN 10 UNIT SC (03:54)
[2020-04-09 05:14] VITALS: RESP 16
== END 2020-04-09 05:14 | disposition left against medical advice (07) ==
PROVIDERS: Emergency Provider Emergency Medicine; PCP Family Medicine Geriatric Medicine
DX: E11.65 Type 2 diabetes mellitus with hyperglycemia (principal); M79.652 Pain in left thigh; R79.89 Other specified abnormal findings of blood chemistry; N28.9 Disorder of kidney and ureter, unspecified; I10 Essential (primary) hypertension; E11.69 Type 2 diabetes mellitus with other specified complication; R00.0 Tachycardia, unspecified; E78.5 Hyperlipidemia, unspecified; Z79.4 Long term (current) use of insulin
CPT/HCPCS: 80048; 82550; 85025; 85652; 99283; J7030; A4216

== ENCOUNTER → 2020-04-28 15:23 | Outpatient (CLI) | payer MEDICARE, SELFPAY ==
[2020-04-09 02:55] VITALS: BMI 24.7
[2020-04-28 16:47] LABS: Absolute Lymphocyte Count 2.57 X10^3/uL (0.83-4.51); Absolute Neutrophil Count 5.8 X10^3/uL (2.0-7.7); Basophil# 0.02 X10^3/uL; Basophil% 0.2 % (0-1); Eosinophil# 0.01 X10^3/uL; Eosinophils% 0.1 % (0-5); Hematocrit 42.4 % (37-47); Hemoglobin 14.6 g/dL (12.0-15.0); Lymphocyte # 2.57 X10^3/ul (4.0); Lymphocyte % 28.1 % (19-41); Mean Corp Hgb Conc 34.4 g/dL (32-36); Mean Corpuscular Hgb 30.6 pg (27.0-32.0); Mean Corpuscular Volume 88.9 fL (81-99); Mean Platelet Vol. 10.2 fl (6.2-12.0); Monocyte# 0.69 X10^3/uL; Monocyte% 7.5 % (0-10); NRBC Flagged by Analyzer 0 % (0-5); Neutrophil # 5.83 X10^3/uL (2.7-7.7); Neutrophil % 63.8 % (47-70); Platelet Count 280 K/mm3 (150-450); RBC Distribution Width SD 42.5 fl (35.1-43.9); Red Blood Count 4.77 M/mm3 (4.2-5.4); White Blood Count 9.2 K/mm3 (4.4-11.0)
[2020-04-28 17:01] LABS: Vitamin D,25 Hydroxy 15.6 ng/mL
[2020-04-28 17:08] LABS: ALB/GLOB Ratio 0.9 RATIO (0.9-2.4); AST(SGOT) 19 U/L (15-37); Alanine Aminotransfer ALT/SGPT 36 U/L (13-56); Albumin, Serum 3.3 g/dL (3.2-5.0); Alkaline Phosphatase 117 U/L (45-117); Anion Gap 8 (5-15); BUN 26 mg/dL (7-18); BUN/Creat Ratio 26.8 RATIO (10-20); Calcium,Total 9.2 mg/dL (8.5-10.1); Chloride 101 mmol/L (98-107); Creatinine, Serum 0.97 mg/dL (0.55-1.02); EST Glomerular Filtration Rate 60 mL/min (>60); Est Glom Filt Rate - Afr Amer 73 mL/min (>60); Globulin 3.7 g/dL (2.2-4.2); Glucose 276 mg/dL (74-106); Potassium 4.3 mmol/L (3.5-5.1); Sodium Level 133 mmol/L (136-145); Thyroid Stim Hormone (TSH) 2.09 uIU/mL (0.358-3.74)
== END ==
LOC: POLAB3 15:24
PROVIDERS: PCP Family Medicine Geriatric Medicine; Visit Provider Family Medicine Geriatric Medicine
DX: E11.9 Type 2 diabetes mellitus without complications (principal); E55.9 Vitamin D deficiency, unspecified; I10 Essential (primary) hypertension
CPT/HCPCS: 36415; 80053; 82306; 84443; 85025

== ENCOUNTER → 2020-05-09 14:35 | Outpatient (CLI) | payer MEDICARE, SELFPAY ==
[2020-04-09 02:55] VITALS: BMI 24.7
== END ==
PROVIDERS: PCP Family Medicine Geriatric Medicine; Visit Provider Family Medicine Geriatric Medicine
DX: R68.83 Chills (without fever) (principal)
CPT/HCPCS: 87633; 87635; C9803; U0005; U0003

== ENCOUNTER → 2020-05-15 16:08 | Outpatient (CLI) | payer MEDICARE, SELFPAY ==
--- NOTE | 2020-05-15 16:20 | RAD_ITS ---
STUDY: X-RAY - LUMBOSACRAL SPINE REASON FOR EXAM: Female, 70 years old. lumber disc lesion, low back pain TECHNIQUE: 7 view(s) of the lumbosacral spine were obtained. COMPARISON: None FINDINGS: Normal lumbar lordosis. Slight dextrocurvature of the lumbar spine. There are 5 nonrib-bearing lumbar vertebral bodies with a transitional first sacral segment. Rudimentary disc at transitional sacral level. Normal vertebral body height without fracture, osteolytic or blastic bone lesion. Mild disc narrowing without substantial spondylitic endplate changes. Calcified annulus bulge at L4-5, mild. Slight anterolisthesis of L5 on transitional level. Negative for spondylolysis facet arthrosis primarily at L5-S1/transitional. No change in alignment on flexion and extension. Normal bilateral sacral ala, sacroiliac joints, and visualized sacrum. Normal visualized soft tissue structures. RAD/L/S Spine w Bend Min 6 Vw IMPRESSION: Normal lordosis with a slight dextrocurvature. Slight anterolisthesis of L5 on S1/transitional. Negative for fracture, osteolytic or blastic bone lesion. Slight anterolisthesis of L5-S1/transitional level with no change in alignment on flexion and extension. Mild generalized degenerative disc narrowing. Small calcified annulus at L4-5. Facet arthrosis at L5-S1/transitional. Electronically Signed: Patricia De Jesus MD at 21:43 EST , Service support ,
== END ==
LOC: RAD 16:09
PROVIDERS: PCP Family Medicine Geriatric Medicine; Referring Provider Family Medicine Geriatric Medicine; Visit Provider Family Medicine Geriatric Medicine
DX: M51.86 Other intervertebral disc disorders, lumbar region (principal)
CPT/HCPCS: 72114

== ENCOUNTER 2020-05-25 02:42 | Emergency (ER) | payer MEDICARE, SELFPAY ==
[2020-05-25 02:44] VITALS: BP 202/88; PULSE 101; RESP 16; TEMP 36; O2SAT 98; BMI 25.5
--- NOTE | 2020-05-25 03:00 | ED.DCSUM_ITS ---
History of Present Illness Chief Complaint: Fall Informant: Patient Onset: Yesterday Current Severity: Mild Maximum Severity: Mild Narrative: Patient presents secondary to skin tear to the right forearm after a fall. Marlen das states around 10 PM last evening she fell while wearing high heeled shoes. She has a skin tear to her right forearm but denies bony tenderness. She complains of some mild bruising to her left forearm and abrasion across her nasal bridge. Patient denies headache, vision change, nausea, or vomiting. She is on Eliquis. Injury occurred 5 hours ago. - Past Medical History (1) Diabetes Status: Chronic (2) Essential (primary) hypertension Status: Chronic (3) Hyperlipidemia Status: Chronic Past Medical History - Allergies and Home Meds Allergies/Adverse Reactions: Allergies diphenhydramine [From Benadryl] Allergy (Verified 05/25/20 02:52) Swelling Primary Care Physician: Alfonso Carlson Chi, MD [Primary Care Provider] - Prior records reviewed: Yes Surgical History: - - section. Smoking Status: Never smoker - Family History Maternal Family History: Family History (Last Reviewed 07/11/19 @ 15:[address] Teja Valles MD) Unknown Breast cancer Colon cancer Diabetes Myocardial infarction Heart disease Hypertension Hyperlipidemia Family History: Reports: No pertinent history Paternal Family History: Family History (Last Reviewed 07/11/19 @ 15:[address] Teja Valles MD) Unknown Breast cancer Colon cancer Diabetes Myocardial infarction Heart disease Hypertension Hyperlipidemia Family History: Reports: No pertinent history Review of Systems General: Denies: Chills, Fever Eyes: Denies: Visual changes - bilaterally ENT: Denies: Bilateral ear pain Cardiovascular: Denies: Chest pain Respiratory: Denies: Dyspnea, Cough Gastrointestinal: Denies: Abdominal pain, Nausea, Vomiting, Diarrhea Musculoskeletal: Reports: Extremity Pain Skin: Reports: Wounds Neurological: Denies: Headache, Weakness, Parasthesia Hematologic: Denies: Easy bruising, Easy bleeding Allergy: Denies: Uticaria Physical Exam Vital Signs/Narrative: Vital Signs Temp Pulse Resp BP Pulse Ox 05/25/20 02:44 96.8 F L 101 H 16 202/88 H 98 Inital Vital Signs reviewed: Yes General: Well nourished, Well developed Head: Normocephalic, Atraumatic Eyes: Perrl, EOMI ENT: Moist mucous membranes, - - Small scab over nasal bridge. Neck: Supple, - - No C-spine tenderness. Cardiovascular: Regular rate, Regular rhythm Respiratory: No distress, CTA bilaterally Abdomen: Soft, Nontender, Normal bowel sounds Extremities: - - 9 x 4 cm skin tear to the right forearm. No underlying bony tenderness. Full range of motion without difficulty. Chronic appearing ecchymosis in the left forearm. Small skin tear noted, however patient states this occurred 2 days ago. No sign of infection. Skin: - - Skin tears as noted above Neurological: Alert, Oriented x3, Normal Strength, Normal Sensation Psychological: Normal affect Diagnostic/Tx/Re-eval - Medical Decision Making Patient states her last tetanus shot was last year. Skin tear to the right forearm is noted. The skin has been completely sloughed off and there is no skin to pipe puller the wound or tacked down. Wound will be cleansed and dressed. She will be provided the phone number for wound care center for follow-up as needed. With patient having a completely normal neuro exam and no headache or neuro symptoms I do not think imaging is needed at this time. ED Disposition - Plan for ED Patient: Disposition: Home or Assisted Living Diagnosis: Skin tear of right forearm without complication Instructions: ED Skin Avulsion Referrals: Alfonso Carlson Chi, MD [Primary Care Provider] - Additional Instructions: Wound Care Center: [phone] for an appointment.
== END 2020-05-25 03:22 | disposition home or self-care (01) ==
LOC: ED 03:10
PROVIDERS: Emergency Provider Emergency Medicine; PCP Family Medicine Geriatric Medicine
DX: S51.811A Laceration without foreign body of right forearm, initial encounter (principal); W19.XXXA Unspecified fall, initial encounter; Z79.02 Long term (current) use of antithrombotics/antiplatelets
CPT/HCPCS: 99282

== ENCOUNTER 2020-06-12 07:52 | Outpatient (RCR) | payer MEDICARE, SELFPAY ==
[2020-06-02 14:35] VITALS: BMI 25.5
[2020-06-12] MEDS: COVID-19 VACC, MRNA(PFIZER)/PF 30 MCG/0.3 ML SYRINGE IM (15:36)
[2020-07-03] MEDS: COVID-19 VACC, MRNA(PFIZER)/PF 30 MCG/0.3 ML SYRINGE IM (15:04)
== END 2020-09-09 23:59 ==
LOC: IMMUN 07:52
PROVIDERS: PCP Family Medicine Geriatric Medicine; Referring Provider Family Medicine; Visit Provider Family Medicine
DX: Z23 Encounter for immunization (principal)
CPT/HCPCS: 0001A; 0002A; 91300

== ENCOUNTER 2020-06-26 13:15 | Outpatient (RCR) | payer MEDICARE, SELFPAY ==
[2020-06-02 14:35] VITALS: BP 152/63; PULSE 71; RESP 18; TEMP 36.2; BMI 25.5
--- NOTE | 2020-06-02 14:48 | PCM.WC.HP ---
(1) Open wound of right forearm Status: Acute Code(s): S51.801A - Unspecified open wound of right forearm, initial encounter (2) Fall from slipping on ice Status: Acute Code(s): W00.9XXA - Unspecified fall due to ice and snow, initial encounter (3) Diabetes Status: Chronic Qualifiers: Code(s): E11.9 - Type 2 diabetes mellitus without complications History of Present Illness Date of Service: 06/02/20 Chief Complaint: Right arm skin tear from slipping and falling on the ice. History of Wound: Patient slipped and fell on ice late on the 05/24/20 while wearing high healed shoes. She presented to the ED on 05/25/20. She is on Eliquis. There was no skin flap on the skin tear. Her wound was dressed and she was discharged and instructed to follow up with the wound center as needed. She has been using hydrogen peroxide several times a day to keep the wound clean and then using an over the counter antibiotic ointment. She states that the wound is very painful. Today she denies fever and states her appetite is ok. Past Medical History Past Medical History: Chronic Problems (Last Reviewed 07/13/19 @ 14:[address] Lv Olivera MD) Diabetes (Chronic) Essential (primary) hypertension (Chronic) Hyperlipidemia (Chronic) Surgical History: - - section. Allergies/Adverse Reactions: Allergies diphenhydramine [From Benadryl] Allergy (Verified 05/25/20 02:52) Swelling Home Medications: Ambulatory Orders Medication Instructions Recorded lisinopril 2.5 mg tablet 2.5 mg PO DAILY 02/22/19 Metoprolol Tartrate [Lopressor 50 mg PO BID 03/06/19 (beta juany)] levothyroxine 25 mcg tablet 25 mcg PO DAILY #1 tab 05/08/19 rosuvastatin 5 mg tablet 5 mg PO DAILY 05/08/19 glimepiride 2 mg tablet 2 mg PO BID #60 tab 07/02/19 Insulin NPH/Reg 70/30 [Novolin 75 unit SUBCUT DAILY 01/07/20 70/30] Apixaban [Eliquis] 5 mg PO BID #120 tab 01/09/20 - Family History Maternal Family History: Family History (Last Reviewed 07/11/19 @ 15:[address] Teja Valles MD) Unknown Breast cancer Colon cancer Diabetes Myocardial infarction Heart disease Hypertension Hyperlipidemia No pertinent history Paternal Family History: Family History (Last Reviewed 07/11/19 @ 15:[address] Teja Valles MD) Unknown Breast cancer Colon cancer Diabetes Myocardial infarction Heart disease Hypertension Hyperlipidemia No pertinent history Smoking Status: Never smoker Review of Systems Constitutional: Denies: Chills, Fever, Weight Change Eyes: Denies: Pain, Vision Change HEENT: Denies: Difficulty Hearing, Difficulty Swallowing, Sinus Congestion Cardiovascular: Denies: Chest Pain, Palpitations Respiratory: Denies: Cough, Shortness of Breath Gastrointestinal: Denies: Diarrhea, Nausea, Vomiting Musculoskeletal: Denies: Arm Pain, Back Pain Skin: Reports: Wounds - Right dorsal forearm superficial wound that is extremely sensitive to light palpation. Neurological: Denies: Balance problems, Blurred vision Endocrine: Denies: Heat/ Cold Intolerance, Polydipsia, Polyuria - Physical Exam Vital Signs Temp Pulse Resp BP 97.1 F L 71 18 152/63 H 06/02/20 14:35 06/02/20 14:35 06/02/20 14:35 06/02/20 14:35 General: Alert, Cooperative HEENT: Atraumatic Oral: Moist Mucosa Lungs: Clear to auscultation, Normal air movement Cardiovascular: Regular rate, Regular Rhythm Abdomen: Bowel Sounds Present, Soft Extremities: Capillary Refill Less than 3 Seconds, Peripheral Pulses Normal, Tenderness - Right forearm Skin: Ulcer/ Wound - Right dorsal forearm there is a superficial wound that is very sensitive to palpation. The wound bed is a pale pink and is very friable and painful. Wound Measurements and Assessment WC - Nurse 1 - General Ulcer Measurement Start: 06/02/20 14:29 Freq: Status: Active Protocol: Activity Type Activity Date Activity User E-Sign Co-Sign Detail Recorded Client Recorded Date Recorded By Document 06/02/20 14:35 MS [id number] 06/02/20 14:45 MS 06/02/20 14:35 Wound Center Nurse 1 [Ulcer Assessment] #1 R Foream -Current Size (cm) - Length 4.5 -Current Size (cm) - Width 9.7 -Current Size (cm) - Depth 0.1 -Total Square Cm 43.65 -Photo Taken Yes -Classification - Thickness Full Thickness without Exposed Support Structure -Exudate Amt Medium -Exudate Type Serosanguineous -Wound Margin Distinct, Outline Attached -Granulation Amt Small (1-33%) -Granulation Quality [place] -Necrosis Amt Large (67-100%) -Necrotic Tissue Type Adherent Slough -Structure Exposed N/A -Texture (Damaris-wound Skin Appearance) Scarring -Moisture (Damaris-wound Skin Appearance No Abnormality ) -Color (Damaris-wound Skin Appearance) No Abnormality -Temperature (Damaris-wound Skin No Abnormality Appearance) (Pt Warm) -Tenderness on Palpation (Damaris-wound No Skin Appearance) -Ulcer Cleansing Wound Cleanser -Foul Odor after Cleansing No -Anesthetic Used 4% Lidocaine Solution Musculoskeletal: No Tenderness to Palpation of Joints or Extremities Neurological: Cranial nerves II-XII grossly intact Psych/Mental Status: Normal Affect, Appropriate Debridement Note Wound debrided: dorsal forearm Laterality: Right Type of Debridement: Selective debridement Anesthesia Used: 4% Lidocaine Solution Depth: Down to and including healthy tissue, in the subcutaneous layer Percentage of wound debrided: 20 Instrument Used: - - moistened gauze Tissue Removed: subcutaneous tissue and slough Severity: Limited To Skin Breakdown Amount of bleeding with debridement: Mild Bleeding Controlled with: Pressure Patient did not tolerate procedure well - Patient did not tolerating having moistened gauze touching her wound. It is painful and hypersensitive. Assessment/Plan Active Problems (Last Reviewed 07/13/19 @ 14:[address] Lv Olivera MD) Open wound of right forearm (Acute) Fall from slipping on ice (Acute) Diabetes (Chronic) Assessment: 1. Open wound of right forearm. 2. Fall from slipping on ice. 3. Diabetes Plan: Patient was seen and evaluated in the wound center today. She did not tolerate a selective debridement with moistened gauze. She does not like any pressure on the wound. Wound care - Will have them stop using the hydrogen peroxide. I believe that this may be why she is having so much discomfort. Will have them wash the wound once daily with soap and water. After cleansing, they can apply collagen hydrogel, cover with adaptic and top with gauze. daily. Encouraged increase protein intake for wound healing. Follow up next week for further wound care. Office Visits / Consults: [id number] OV L3 Est - 25 modifier and [id number] selective debridement
[2020-06-12 14:09] VITALS: BP 131/46; PULSE 89; RESP 18; TEMP 36.1; BMI 25.5
[2020-06-12 14:43] VITALS: BP 128/50
--- NOTE | 2020-06-12 16:51 | PN.PCM_ITS ---
(1) Open wound of right forearm Status: Acute Code(s): S51.801A - Unspecified open wound of right forearm, initial encounter (2) Fall from slipping on ice Status: Acute Code(s): W00.9XXA - Unspecified fall due to ice and snow, initial encounter (3) Essential (primary) hypertension Status: Chronic Code(s): I10 - Essential (primary) hypertension Type of Wound Date of Service: 06/12/20 Chief Complaint: Right arm skin tear from slipping and falling on the ice. History of Wound: Patient slipped and fell on ice late on the 05/24/20 while wearing high healed shoes. She presented to the ED on 05/25/20. She is on Eliquis. There was no skin flap on the skin tear. Her wound was dressed and sh derw was discharged and instructed to follow up with the wound center as needed. She has been using hydrogen peroxide several times a day to keep the wound clean and then using an over the counter antibiotic ointment. She states that the wound is very painful. Today she denies fever and states her appetite is ok. Progress of Wound: Patient transfering care to myself, wound size stable, given the delayed wound healing in fact that it is been almost 4 weeks of standard wound therapy, will apply for advanced skin substitute - Physical Exam Vital Signs Temp Pulse Resp BP 96.9 F L 89 18 128/50 H 06/12/20 14:09 06/12/20 14:09 06/12/20 14:09 06/12/20 14:43 General: Alert, Oriented x3, Cooperative, No apparent distress HEENT: Atraumatic Oral: Moist Mucosa Lungs: Clear to auscultation, Normal air movement Cardiovascular: Regular rate, Regular Rhythm Abdomen: Bowel Sounds Present, Soft Extremities: No clubbing, No cyanosis, No edema Skin: Ulcer/ Wound - see nursing documentation, slough and devitalized tissue, no signs of obvious infection at this time Wound Measurements and Assessment WC - Nurse 1 - General Ulcer Measurement Start: 06/02/20 14:29 Freq: Status: Active Protocol: Activity Type Activity Date Activity User E-Sign Co-Sign Detail Recorded Client Recorded Date Recorded By Document 06/12/20 14:09 RB [id number] 06/12/20 14:12 RB 06/12/20 14:09 Wound Center Nurse 1 [Ulcer Assessment] #1 R Foream -Combined with other wound No -Current Size (cm) - Length 4.5 -Current Size (cm) - Width 7 -Current Size (cm) - Depth 0.1 -Total Square Cm 31.5 -Tunneling No -Undermining/Tunneling No -Circular Undermining No -Exudate Amt Medium -Exudate Type Serosanguineous -Wound Margin Flat & Intact -Granulation Amt Medium (34-66%) -Granulation Quality [place] -Slough/Fibrin Yes -Necrosis Amt Small (1-33%) -Necrotic Tissue Type Adherent Slough -Structure Exposed N/A -Texture (Damaris-wound Skin Appearance) Assessed, Scarring -Moisture (Damaris-wound Skin Appearance Assessed ) -Color (Damaris-wound Skin Appearance) Assessed -Temperature (Damaris-wound Skin No Abnormality Appearance) (Pt Warm) -Tenderness on Palpation (Damaris-wound No Skin Appearance) -Ulcer Cleansing Wound Cleanser -Foul Odor after Cleansing No -Anesthetic Used 4% Lidocaine Solution WC - Nurse 2 - General Ulcer CM Notes Start: 06/02/20 14:29 Freq: Status: Active Protocol: Activity Type Activity Date Activity User E-Sign Co-Sign Detail Recorded Client Recorded Date Recorded By Document 06/12/20 14:15 MW [id number] 06/12/20 14:18 MW 06/12/20 14:15 Wound Center Nurse 2 [Procedure/Treatment] -Time 14:16 -Correct Patient Yes -Correct Side, Site, Position Yes -Correct Procedure Yes -Procedure Performed Yes -Type of Procedure Debridement -Clinical Debridement Subcutaneous -Tissue Removed Subcutaneous -Post Debridement (cm) - Length 3.6 -Post Debridement (cm) - Width 7.5 -Post Debridement (cm) - Depth 0.1 -Total Square (Post) (cm) 27.00 -Area of Debridement (cm) - Length 3.6 -Area of Debridement (cm) - Width 7.5 -Total Square (Area) (cm) 27.00 -Tunneling No -Undermining/Tunneling No -Circular Undermining No -Wound/Ulcer Outcome Not Healed -Ulcer Cleansing Rinsed/ Irrigated with Saline -Foul Odor after Cleansing No -Bioengineered Tissue No -Bleeding Controlled with Pressure -Offloading No -Treatment Response Procedure Tolerated Well -Debridement - Subq, 1st 20sq cm Yes -Debridement, SubQ, ea addt'l 20sq cm 1 or part thereof [See Physician Procedure note for Specifics] Pain Scale: 0-10 Numeric [Pain] -Is Patient Pain Free? Yes - Nurse 3 - General Ulcer D/C NN Start: 06/02/20 14:29 Freq: Status: Active Protocol: Activity Type Activity Date Activity User E-Sign Co-Sign Detail Recorded Client Recorded Date Recorded By Document 06/12/20 14:43 RB [id number] 06/12/20 14:43 RB 06/12/20 14:43 Wound Care Nurse 3 [Wound Dressing] #1 R Foream -Ulcer Cleansing Rinsed/ Irrigated with Saline -Primary Dressing Applied Promogran Ochoa Matter -Primary Dressing Covered/Secured Dry Gauze,Dry with Gauze & Roll Gauze,Secured with Tape -Promogran Ochoa Matter 1 Vital Signs [Blood Pressure] -Blood Pressure (90/60-120/80) 128/50 H -Blood Pressure Mean (mm Hg) 76 -Source Monitor -Position Semi-Fowlers -Blood Pressure Location Left Arm Pain Scale: 0-10 Numeric [Pain] -Is Patient Pain Free? Yes - Visit Discharge [Visit Discharge Information] -Discharge Condition Stable -Ambulatory Status Ambulatory -Transportation Private Auto -Medication Reconcilliation completed No & provided to patient/care provider -Clinical Summary of Care Provided Yes Neurological: Neuro grossly intact Psych/Mental Status: Normal Affect, Appropriate, Alert and oriented to time, place, person, mood and affect Debridement Note Post-Debridement Measurements/Treatment - Nurse 2 - General Ulcer CM Notes Start: 06/02/20 14:29 Freq: Status: Active Protocol: Activity Type Activity Date Activity User E-Sign Co-Sign Detail Recorded Client Recorded Date Recorded By Document 06/02/20 15:06 [id number] [id number] 06/02/20 15:06 Document 06/12/20 14:15 MW [id number] 06/12/20 14:18 MW 06/02/20 06/12/20 15:06 14:15 Wound Center Nurse 2 #1 R Foream -Time 15:26 14:16 -Correct Patient Yes Yes -Correct Side, Site, Position Yes Yes -Correct Procedure Yes Yes -Procedure Performed Yes Yes -Type of Procedure Debridement Debridement -Clinical Debridement Subcutaneous Subcutaneous -Tissue Removed Subcutaneous Subcutaneous -Post Debridement (cm) - Length 4.5 3.6 -Post Debridement (cm) - Width 9.7 7.5 -Post Debridement (cm) - Depth 0.1 0.1 -Total Square (Post) (cm) 43.65 27.00 -Area of Debridement (cm) - Length 4.5 3.6 -Area of Debridement (cm) - Width 9.7 7.5 -Total Square (Area) (cm) 43.65 27.00 -Tunneling No No -Undermining/Tunneling No No -Circular Undermining No No -Wound/Ulcer Outcome Not Healed Not Healed -Ulcer Cleansing Rinsed/ Rinsed/ Irrigated with Irrigated with Saline Saline -Foul Odor after Cleansing No No -Bioengineered Tissue No No -Bleeding Controlled with Pressure Pressure -Offloading No No -Treatment Response Procedure Procedure Tolerated Well Tolerated Well -Debridement - Subq, 1st 20sq cm Yes Yes -Debridement, SubQ, ea addt'l 20sq cm 2 1 or part thereof Pain Scale: 0-10 Numeric Is Patient Pain Free? Yes Yes - Nurse 3 - General Ulcer D/C NN Start: 06/02/20 14:29 Freq: Status: Active Protocol: Activity Type Activity Date Activity User E-Sign Co-Sign Detail Recorded Client Recorded Date Recorded By Document 06/02/20 15:13 MS [id number] 06/02/20 15:14 MS Document 06/12/20 14:43 RB [id number] 06/12/20 14:43 RB 06/02/20 06/12/20 15:13 14:43 Wound Care Nurse 3 #1 R Foream -Ulcer Cleansing Rinsed/ Rinsed/ Irrigated with Irrigated with Saline Saline -Foul Odor after Cleansing No -Primary Dressing Applied C Hydrogel ($) Promogran Ochoa Matter -Other Dressing adaptic -Primary Dressing Covered/Secured with Dry Gauze & Dry Gauze,Dry Roll Gauze, Gauze & Roll Secured with Gauze,Secured Tape with Tape -Promogran Ochoa Matter 1 Vital Signs Blood Pressure (90/60-120/80) 128/50 H Blood Pressure Mean (mm Hg) 76 Source Monitor Position Semi-Fowlers Blood Pressure Location Left Arm Pain Scale: 0-10 Numeric Is Patient Pain Free? Yes Yes WC - Visit Discharge Discharge Condition Stable Stable Ambulatory Status Ambulatory Ambulatory Transportation Private Auto Accompanied by Medication Reconcilliation completed & No No provided to patient/care provider Clinical Summary of Care Provided Yes Yes Wound debrided: right forearm nonhealing ulcer Laterality: Right Type of Debridement: Excisional debridement Anesthesia Used: 5% Lidocaine Gel Depth: in the subcutaneous layer Percentage of wound debrided: 100 Instrument Used: 5mm curette Tissue Removed: Slough and devitalized tissue Severity: Fat Layer Exposed Amount of bleeding with debridement: Mild Bleeding Controlled with: Pressure Patient tolerated procedure well Assessment/Plan Active Problems (Last Reviewed 07/13/19 @ 14:[address] Lv Olivera MD) Open wound of right forearm (Acute) Fall from slipping on ice (Acute) Diabetes (Chronic) Assessment: 1. Open wound of right forearm. 2. Fall from slipping on ice. 3. Diabetes Plan: Patient was seen and evaluated in the wound center today. She tolerated debridement well. Given delayed wound healing will apply for advanced skin substitute. Wound care -Applicationof ochoa and adaptic change daily. Will have them wash the wound once daily with soap and water. Encouraged increase protein intake for wound healing. Follow up next week for further wound care. This note was generated with [employer] dictation software. It may contain incorrect words, spelling, and punctuation that were not noted in checking the note before signing. [id number]: [id number] Zena subq tissue 20 sq cm/<
[2020-06-19 13:19] VITALS: BP 182/87; PULSE 86; RESP 16; TEMP 36.2; BMI 25.5
--- NOTE | 2020-06-19 15:51 | PN.PCM_ITS ---
(1) Open wound of right forearm Status: Acute Code(s): S51.801A - Unspecified open wound of right forearm, initial encounter (2) Fall from slipping on ice Status: Acute Code(s): W00.9XXA - Unspecified fall due to ice and snow, initial encounter (3) Essential (primary) hypertension Status: Chronic Code(s): I10 - Essential (primary) hypertension Type of Wound Date of Service: 06/19/20 Chief Complaint: Right arm skin tear from slipping and falling on the ice. History of Wound: Patient slipped and fell on ice late on the 05/24/20 while wearing high healed shoes. She presented to the ED on 05/25/20. She is on Eliquis. There was no skin flap on the skin tear. Her wound was dressed and sh drew was discharged and instructed to follow up with the wound center as needed. She has been using hydrogen peroxide several times a day to keep the wound clean and then using an over the counter antibiotic ointment. She states that the wound is very painful. Today she denies fever and states her appetite is ok. Progress of Wound: Wound size improving, given the delayed wound healing in fact that it is been almost 4 weeks of standard wound therapy, will apply for advanced skin substitute - Physical Exam Vital Signs Temp Pulse Resp BP 97.1 F L 86 16 182/87 H 06/19/20 13:19 06/19/20 13:19 06/19/20 13:19 06/19/20 13:19 General: Alert, Oriented x3, Cooperative, No apparent distress HEENT: Atraumatic Oral: Moist Mucosa Neck: Supple Lungs: Clear to auscultation, Normal air movement Cardiovascular: Regular rate Abdomen: Soft, Non Tender Extremities: No clubbing, No cyanosis Skin: Ulcer/ Wound - See nursing documentation, slough and devitalized tissue present, no signs of infection at this time Wound Measurements and Assessment WC - Nurse 1 - General Ulcer Measurement Start: 06/02/20 14:29 Freq: Status: Active Protocol: Activity Type Activity Date Activity User E-Sign Co-Sign Detail Recorded Client Recorded Date Recorded By Document 06/19/20 13:19 MS [id number] 06/19/20 13:27 MS 06/19/20 13:19 Wound Center Nurse 1 [Ulcer Assessment] #1 R Foream -Current Size (cm) - Length 1.3 -Current Size (cm) - Width 1 -Current Size (cm) - Depth 0.1 -Total Square Cm 1.3 -Exudate Amt None Present -Wound Margin Distinct, Outline Attached -Granulation Amt None Present (0 %) -Slough/Fibrin No -Necrosis Amt None Present (0 %) -Texture (Damaris-wound Skin Appearance) No Abnormality -Moisture (Damaris-wound Skin Appearance No Abnormality ) -Color (Damaris-wound Skin Appearance) No Abnormality -Temperature (Damaris-wound Skin No Abnormality Appearance) (Pt Warm) -Ulcer Cleansing Rinsed/ Irrigated with Saline -Foul Odor after Cleansing No -Anesthetic Used 4% Lidocaine Solution WC - Nurse 2 - General Ulcer CM Notes Start: 06/02/20 14:29 Freq: Status: Active Protocol: Activity Type Activity Date Activity User E-Sign Co-Sign Detail Recorded Client Recorded Date Recorded By Document 06/19/20 13:36 MW [id number] 06/19/20 13:37 MW 06/19/20 13:36 Wound Center Nurse 2 [Procedure/Treatment] -Time 13:36 -Correct Patient Yes -Correct Side, Site, Position Yes -Correct Procedure Yes -Procedure Performed Yes -Type of Procedure Debridement -Clinical Debridement Subcutaneous -Tissue Removed Subcutaneous -Post Debridement (cm) - Length 3.0 -Post Debridement (cm) - Width 0.8 -Post Debridement (cm) - Depth 0.1 -Total Square (Post) (cm) 2.40 -Area of Debridement (cm) - Length 3.0 -Area of Debridement (cm) - Width 0.8 -Total Square (Area) (cm) 2.40 -Tunneling No -Undermining/Tunneling No -Circular Undermining No -Wound/Ulcer Outcome Not Healed -Ulcer Cleansing Rinsed/ Irrigated with Saline -Foul Odor after Cleansing No -Bioengineered Tissue No -Bleeding Controlled with Pressure -Offloading No -Treatment Response Procedure Tolerated Well -Debridement - Subq, 1st 20sq cm Yes [See Physician Procedure note for Specifics] Pain Scale: 0-10 Numeric [Pain] -Is Patient Pain Free? Yes CINTHYA - Nurse 3 - General Ulcer D/C NN Start: 06/02/20 14:29 Freq: Status: Active Protocol: Activity Type Activity Date Activity User E-Sign Co-Sign Detail Recorded Client Recorded Date Recorded By Document 06/19/20 13:37 MW [id number] 06/19/20 13:37 MW 06/19/20 13:37 Wound Care Nurse 3 [Wound Dressing] #1 R Foream -Ulcer Cleansing Rinsed/ Irrigated with Saline -Foul Odor after Cleansing No -Negative Pressure Wound Therapy N/A -Primary Dressing Applied Promogran Ochoa Matter -Primary Dressing Covered/Secured Dry Gauze & with Roll Gauze, Secured with Tape -Promogran Ochoa Matter 1 [Post Procedure Tolerated] -Treatment Response Procedure Tolerated Well Pain Scale: 0-10 Numeric [Pain] -Is Patient Pain Free? Yes Teaching: Wound Center [Wound Center Education] (Items with an * have Printed Materials Available- Please identify what is given to patient under the Teaching materials given to patient and caregiver Section. Dressing Your Wound -Person Taught Patient -Teaching Method Discussion, Demonstration -Response to teaching Verbalize understanding WC - Visit Discharge [Visit Discharge Information] -Discharge Condition Stable -Ambulatory Status Ambulatory -Transportation Private Auto -Accompanied by -Medication Reconcilliation completed No & provided to patient/care provider -Clinical Summary of Care Provided Yes Neurological: Neuro grossly intact Psych/Mental Status: Normal Affect, Appropriate, Alert and oriented to time, place, person, mood and affect Debridement Note Post-Debridement Measurements/Treatment WC - Nurse 2 - General Ulcer CM Notes Start: 06/02/20 14:29 Freq: Status: Active Protocol: Activity Type Activity Date Activity User E-Sign Co-Sign Detail Recorded Client Recorded Date Recorded By Document 06/02/20 15:06 [id number] 06/02/20 15:06 Document 06/12/20 14:15 MW [id number] 06/12/20 14:18 MW Document 06/19/20 13:36 MW [id number] 06/19/20 13:37 MW 06/02/20 06/12/20 06/19/20 15:06 14:15 13:36 Wound Center Nurse 2 #1 R Foream -Time 15:26 14:16 13:36 -Correct Patient Yes Yes Yes -Correct Side, Site, Position Yes Yes Yes -Correct Procedure Yes Yes Yes -Procedure Performed Yes Yes Yes -Type of Procedure Debridement Debridement Debridement -Clinical Debridement Subcutaneous Subcutaneous Subcutaneous -Tissue Removed Subcutaneous Subcutaneous Subcutaneous -Post Debridement (cm) - Length 4.5 3.6 3.0 -Post Debridement (cm) - Width 9.7 7.5 0.8 -Post Debridement (cm) - Depth 0.1 0.1 0.1 -Total Square (Post) (cm) 43.65 27.00 2.40 -Area of Debridement (cm) - Length 4.5 3.6 3.0 -Area of Debridement (cm) - Width 9.7 7.5 0.8 -Total Square (Area) (cm) 43.65 27.00 2.40 -Tunneling No No No -Undermining/Tunneling No No No -Circular Undermining No No No -Wound/Ulcer Outcome Not Healed Not Healed Not Healed -Ulcer Cleansing Rinsed/ Rinsed/ Rinsed/ Irrigated with Irrigated with Irrigated with Saline Saline Saline -Foul Odor after Cleansing No No No -Bioengineered Tissue No No No -Bleeding Controlled with Pressure Pressure Pressure -Offloading No No No -Treatment Response Procedure Procedure Procedure Tolerated Well Tolerated Well Tolerated Well -Debridement - Subq, 1st 20sq cm Yes Yes Yes -Debridement, SubQ, ea addt'l 20sq cm 2 1 or part thereof Pain Scale: 0-10 Numeric Is Patient Pain Free? Yes Yes Yes WC - Nurse 3 - General Ulcer D/C NN Start: 06/02/20 14:29 Freq: Status: Active Protocol: Activity Type Activity Date Activity User E-Sign Co-Sign Detail Recorded Client Recorded Date Recorded By Document 06/02/20 15:13 MS [id number] 06/02/20 15:14 MS Document 06/12/20 14:43 RB [id number] 06/12/20 14:43 RB Document 06/19/20 13:37 MW [id number] 06/19/20 13:37 MW 06/02/20 06/12/20 06/19/20 15:13 14:43 13:37 Wound Care Nurse 3 #1 R Foream -Ulcer Cleansing Rinsed/ Rinsed/ Rinsed/ Irrigated with Irrigated with Irrigated with Saline Saline Saline -Foul Odor after Cleansing No No -Negative Pressure Wound Therapy N/A -Primary Dressing Applied C Hydrogel ($) Promogran Promogran Ochoa Matter Ochoa Matter -Other Dressing adaptic -Primary Dressing Covered/Secured with Dry Gauze & Dry Gauze,Dry Dry Gauze & Roll Gauze, Gauze & Roll Roll Gauze, Secured with Gauze,Secured Secured with Tape with Tape Tape -Promogran Ochoa Matter 1 1 Treatment Response Procedure Tolerated Well Vital Signs Blood Pressure (90/60-120/80) 128/50 H Blood Pressure Mean (mm Hg) 76 Source Monitor Position Semi-Fowlers Blood Pressure Location Left Arm Pain Scale: 0-10 Numeric Is Patient Pain Free? Yes Yes Yes Teaching: Wound Center Dressing Your Wound -Person Taught Patient -Teaching Method Discussion, Demonstration -Response to teaching Verbalize understanding WC - Visit Discharge Discharge Condition Stable Stable Stable Ambulatory Status Ambulatory Ambulatory Ambulatory Transportation Private Auto Private Auto Accompanied by Medication Reconcilliation completed & No No No provided to patient/care provider Clinical Summary of Care Provided Yes Yes Yes Wound debrided: Right upper extremity ulcer Laterality: Right Type of Debridement: Excisional debridement Anesthesia Used: 5% Lidocaine Gel Depth: in the subcutaneous layer Percentage of wound debrided: 100 Instrument Used: 5mm curette Tissue Removed: slough and devitalized tissue Severity: Fat Layer Exposed Amount of bleeding with debridement: Mild Bleeding Controlled with: Pressure Patient tolerated procedure well Assessment/Plan Active Problems (Last Reviewed 07/13/19 @ 14:[address] Lv Olivera MD) Open wound of right forearm (Acute) Fall from slipping on ice (Acute) Diabetes (Chronic) Essential (primary) hypertension (Chronic) Assessment: 1. Open wound of right forearm. 2. Fall from slipping on ice. 3. Diabetes Plan: Patient was seen and evaluated in the wound center today. She tolerated debridement well. Given delayed wound healing will apply for advanced skin substitute. Wound care -Applicationof ochoa and adaptic change daily. Will have them wash the wound once daily with soap and water. Encouraged increase protein intake for wound healing. Follow up next week for further wound care. This note was generated with [employer] dictation software. It may contain incorrect words, spelling, and punctuation that were not noted in checking the note before signing. [id number]: [id number] Zena subq tissue 20 sq cm/<
[2020-06-26 13:19] VITALS: BP 163/73; PULSE 85; RESP 18; TEMP 36.6; BMI 25.5
--- NOTE | 2020-06-26 14:34 | PN.PCM_ITS ---
(1) Open wound of right forearm Status: Acute Code(s): S51.801A - Unspecified open wound of right forearm, initial encounter (2) Fall from slipping on ice Status: Acute Code(s): W00.9XXA - Unspecified fall due to ice and snow, initial encounter (3) Essential (primary) hypertension Status: Chronic Code(s): I10 - Essential (primary) hypertension Type of Wound Date of Service: 06/26/20 Chief Complaint: Right arm skin tear from slipping and falling on the ice. History of Wound: Patient slipped and fell on ice late on the 05/24/20 while wearing high healed shoes. She presented to the ED on 05/25/20. She is on Eliquis. There was no skin flap on the skin tear. Her wound was dressed and sh drew was discharged and instructed to follow up with the wound center as needed. She has been using hydrogen peroxide several times a day to keep the wound clean and then using an over the counter antibiotic ointment. She states that the wound is very painful. Today she denies fever and states her appetite is ok. Progress of Wound: Wounds are healed without any signs of infection at this time. No acute concerns. Past medical, family, and social history reviewed and not pertinent to the current visit and all other systems reviewed and negative with exception of those listed above. - Physical Exam Vital Signs Temp Pulse Resp BP 97.8 F 85 18 163/73 H 06/26/20 13:19 06/26/20 13:19 06/26/20 13:19 06/26/20 13:19 General: Alert, Oriented x3, Cooperative, No apparent distress HEENT: Atraumatic Oral: Moist Mucosa Neck: Supple Lungs: Clear to auscultation Cardiovascular: Regular rate Abdomen: Soft, Non Tender Extremities: No clubbing, No cyanosis Skin: Ulcer/ Wound - healed Wound Measurements and Assessment WC - Nurse 1 - General Ulcer Measurement Start: 06/02/20 14:29 Freq: Status: Active Protocol: Activity Type Activity Date Activity User E-Sign Co-Sign Detail Recorded Client Recorded Date Recorded By Document 06/26/20 13:19 PL [id number] 06/26/20 13:20 PL 06/26/20 13:19 Wound Center Nurse 1 [Ulcer Assessment] #1 R Foream -Combined with other wound No -Current Size (cm) - Length 0 -Current Size (cm) - Width 0 -Current Size (cm) - Depth 0 -Total Square Cm 0 -Photo Taken No -Epithelialization Large 67-100% -Exudate Amt None Present -Granulation Amt Large (67-100%) -Granulation Quality [place] -Slough/Fibrin No -Ulcer Cleansing Rinsed/ Irrigated with Saline -Foul Odor after Cleansing No Neurological: Neuro grossly intact Psych/Mental Status: Normal Affect, Appropriate, Alert and oriented to time, place, person, mood and affect Debridement Note Post-Debridement Measurements/Treatment WC - Nurse 2 - General Ulcer CM Notes Start: 06/02/20 14:29 Freq: Status: Active Protocol: Activity Type Activity Date Activity User E-Sign Co-Sign Detail Recorded Client Recorded Date Recorded By Document 06/02/20 15:06 [id number] 06/02/20 15:06 JF Document 06/12/20 14:15 MW [id number] 06/12/20 14:18 MW Document 06/19/20 13:36 MW [id number] 06/19/20 13:37 MW 06/02/20 06/12/20 06/19/20 15:06 14:15 13:36 Wound Center Nurse 2 #1 R Foream -Time 15:26 14:16 13:36 -Correct Patient Yes Yes Yes -Correct Side, Site, Position Yes Yes Yes -Correct Procedure Yes Yes Yes -Procedure Performed Yes Yes Yes -Type of Procedure Debridement Debridement Debridement -Clinical Debridement Subcutaneous Subcutaneous Subcutaneous -Tissue Removed Subcutaneous Subcutaneous Subcutaneous -Post Debridement (cm) - Length 4.5 3.6 3.0 -Post Debridement (cm) - Width 9.7 7.5 0.8 -Post Debridement (cm) - Depth 0.1 0.1 0.1 -Total Square (Post) (cm) 43.65 27.00 2.40 -Area of Debridement (cm) - Length 4.5 3.6 3.0 -Area of Debridement (cm) - Width 9.7 7.5 0.8 -Total Square (Area) (cm) 43.65 27.00 2.40 -Tunneling No No No -Undermining/Tunneling No No No -Circular Undermining No No No -Wound/Ulcer Outcome Not Healed Not Healed Not Healed -Ulcer Cleansing Rinsed/ Rinsed/ Rinsed/ Irrigated with Irrigated with Irrigated with Saline Saline Saline -Foul Odor after Cleansing No No No -Bioengineered Tissue No No No -Bleeding Controlled with Pressure Pressure Pressure -Offloading No No No -Treatment Response Procedure Procedure Procedure Tolerated Well Tolerated Well Tolerated Well -Debridement - Subq, 1st 20sq cm Yes Yes Yes -Debridement, SubQ, ea addt'l 20sq cm 2 1 or part thereof Pain Scale: 0-10 Numeric Is Patient Pain Free? Yes Yes Yes WC - Nurse 3 - General Ulcer D/C NN Start: 06/02/20 14:29 Freq: Status: Active Protocol: Activity Type Activity Date Activity User E-Sign Co-Sign Detail Recorded Client Recorded Date Recorded By Document 06/02/20 15:13 MS [id number] 06/02/20 15:14 MS Document 06/12/20 14:43 RB [id number] 06/12/20 14:43 RB Document 06/19/20 13:37 MW [id number] 06/19/20 13:37 MW 06/02/20 06/12/20 06/19/20 15:13 14:43 13:37 Wound Care Nurse 3 #1 R Foream -Ulcer Cleansing Rinsed/ Rinsed/ Rinsed/ Irrigated with Irrigated with Irrigated with Saline Saline Saline -Foul Odor after Cleansing No No -Negative Pressure Wound Therapy N/A -Primary Dressing Applied C Hydrogel ($) Promogran Promogran Natalie Matter Natalie Matter -Other Dressing adaptic -Primary Dressing Covered/Secured with Dry Gauze & Dry Gauze,Dry Dry Gauze & Roll Gauze, Gauze & Roll Roll Gauze, Secured with Gauze,Secured Secured with Tape with Tape Tape -Promogran Natalie Matter 1 1 Treatment Response Procedure Tolerated Well Vital Signs Blood Pressure (90/60-120/80) 128/50 H Blood Pressure Mean (mm Hg) 76 Source Monitor Position Semi-Fowlers Blood Pressure Location Left Arm Pain Scale: 0-10 Numeric Is Patient Pain Free? Yes Yes Yes Teaching: Wound Center Dressing Your Wound -Person Taught Patient -Teaching Method Discussion, Demonstration -Response to teaching Verbalize understanding WC - Visit Discharge Discharge Condition Stable Stable Stable Ambulatory Status Ambulatory Ambulatory Ambulatory Transportation Private Auto Private Auto Accompanied by Medication Reconcilliation completed & No No No provided to patient/care provider Clinical Summary of Care Provided Yes Yes Yes No debridement was completed today Assessment/Plan Active Problems (Last Reviewed 07/13/19 @ 14:[address] Lv Olivera MD) Open wound of right forearm (Acute) Fall from slipping on ice (Acute) Diabetes (Chronic) Essential (primary) hypertension (Chronic) Assessment: 1. Open wound of right forearm. 2. Fall from slipping on ice. 3. Diabetes Plan: Patient was seen and evaluated in the wound center today. Wounds are healed without any signs of infection at this time. Cover with gauze for protection and increase protein and vit c. WIll be discharged today. 25 min spent today physically examining patient and advising on plan of care. This note was generated with [employer] dictation software. It may contain incorrect words, spelling, and punctuation that were not noted in checking the note before signing. Office Visits / Consults: [id number] OV L3 Est
== END 2020-07-02 23:59 ==
LOC: WC 13:15
PROVIDERS: PCP Family Medicine Geriatric Medicine; Visit Provider Nurse Practitioner Family
DX: S51.811A Laceration without foreign body of right forearm, initial encounter (principal); W00.0XXA Fall on same level due to ice and snow, initial encounter; Y93.9 Activity, unspecified; E11.9 Type 2 diabetes mellitus without complications; I10 Essential (primary) hypertension; E78.5 Hyperlipidemia, unspecified; Z79.4 Long term (current) use of insulin; Z79.899 Other long term (current) drug therapy
CPT/HCPCS: 11042; 11045; 99213; G0463

== ENCOUNTER → 2020-09-29 16:33 | Outpatient (CLI) | payer MEDICARE, SELFPAY ==
[2020-07-16 11:01] VITALS: BMI 23.3
[2020-09-29 18:23] LABS: Absolute Lymphocyte Count 2.72 X10^3/uL (0.83-4.51); Basophil# 0.06 X10^3/uL; Basophil% 0.8 % (0-1); Eosinophil# 0.13 X10^3/uL; Eosinophils% 1.7 % (0-5); Hematocrit 47.1 % (37-47); Hemoglobin 15.6 g/dL (12.0-15.0); Lymphocyte # 2.72 X10^3/ul (0.83-4.51); Lymphocyte % 34.6 % (19-41); Mean Corp Hgb Conc 33.1 g/dL (32-36); Mean Corpuscular Hgb 29.4 pg (27.0-32.0); Mean Corpuscular Volume 88.9 fL (81-99); Mean Platelet Vol. 10.3 fl (6.2-12.0); Monocyte# 0.98 X10^3/uL; Monocyte% 12.5 % (0-10); NRBC Flagged by Analyzer 0 % (0-5); Neutrophil # 3.95 X10^3/uL (2.7-7.7); Platelet Count 299 K/mm3 (150-450); RBC Distribution Width CV 13.5 % (11.6-14.6); RBC Distribution Width SD 43.5 fl (35.1-43.9); White Blood Count 7.9 K/mm3 (4.4-11.0)
[2020-09-29 18:45] LABS: ALB/GLOB Ratio 0.8 RATIO (0.9-2.4); AST(SGOT) 26 U/L (15-37); Alanine Aminotransfer ALT/SGPT 29 U/L (13-56); Albumin, Serum 3.3 g/dL (3.2-5.0); Alkaline Phosphatase 85 U/L (45-117); Anion Gap 9 (5-15); BUN 12 mg/dL (7-18); BUN/Creat Ratio 12.7 RATIO (10-20); Calcium,Total 9.2 mg/dL (8.5-10.1); Chloride 103 mmol/L (98-107); Cholesterol 313 mg/dL (200); Creatinine, Serum 0.95 mg/dL (0.55-1.02); EST Glomerular Filtration Rate 62 mL/min (>60); Est Glom Filt Rate - Afr Amer 75 mL/min (>60); Globulin 3.9 g/dL (2.2-4.2); Glucose 321 mg/dL (74-106); High Density Lipoprotein 42 mg/dL; Potassium 4.1 mmol/L (3.5-5.1); Protein, Total 7.2 g/dL (6.4-8.2); Sodium Level 136 mmol/L (136-145); Thyroid Stim Hormone (TSH) 5.32 uIU/mL (0.358-3.74); Triglycerides 852 mg/dL
== END ==
LOC: POLAB3 16:34
PROVIDERS: PCP Family Medicine Geriatric Medicine; Visit Provider Family Medicine Geriatric Medicine
DX: E11.9 Type 2 diabetes mellitus without complications (principal); E55.9 Vitamin D deficiency, unspecified; E78.5 Hyperlipidemia, unspecified; I10 Essential (primary) hypertension; N39.0 Urinary tract infection, site not specified
CPT/HCPCS: 36415; 80053; 80061; 82306; 84443; 85025; 87077; 87086; 87088; 87186

== ENCOUNTER → 2020-10-15 16:34 | Outpatient (CLI) | payer MEDICARE, SELFPAY ==
[2020-07-16 11:01] VITALS: BMI 23.3
[2020-10-15 19:16] LABS: M R Staph aureus DNA By PCR Negative (Negative); Probe Check PASS; Staph aureus DNA By PCR NEGATIVE (Negative)
== END ==
PROVIDERS: PCP Family Medicine Geriatric Medicine; Visit Provider Family Medicine Geriatric Medicine
DX: E11.9 Type 2 diabetes mellitus without complications (principal); B95.62 Methicillin resistant Staphylococcus aureus infection as the cause of diseases classified elsewhere
CPT/HCPCS: 87070; 87205; 87640

== ENCOUNTER → 2020-10-17 09:19 | Outpatient (CLI) | payer MEDICARE, SELFPAY ==
[2020-07-16 11:01] VITALS: BMI 23.3
== END ==
PROVIDERS: PCP Family Medicine Geriatric Medicine; Visit Provider Family Medicine Geriatric Medicine
DX: N39.0 Urinary tract infection, site not specified (principal)
CPT/HCPCS: 87086

== ENCOUNTER → 2020-11-04 11:03 | Outpatient (CLI) | payer MEDICARE, SELFPAY ==
[2020-07-16 11:01] VITALS: BMI 23.3
== END ==
PROVIDERS: PCP Family Medicine Geriatric Medicine; Referring Provider Family Medicine Geriatric Medicine; Visit Provider Family Medicine Geriatric Medicine
DX: R06.89 Other abnormalities of breathing (principal)
CPT/HCPCS: 87426; 87804; 87807; C9803

== ENCOUNTER → 2020-12-01 13:21 | Outpatient (CLI) | payer MEDICARE, SELFPAY ==
[2020-12-01 18:10] LABS: Probe Check PASS; Specimen Processing Control PASS
== END ==
PROVIDERS: PCP Family Medicine Geriatric Medicine; Referring Provider Family Medicine Geriatric Medicine; Visit Provider Family Medicine Geriatric Medicine
DX: R68.83 Chills (without fever) (principal)
CPT/HCPCS: 87635; 87804; 87807; C9803; U0005; U0003

== ENCOUNTER → 2020-12-04 17:20 | Outpatient (CLI) | payer MEDICARE, SELFPAY ==
[2020-12-04 17:52] LABS: Absolute Lymphocyte Count 3.46 X10^3/uL (0.83-4.51); Absolute Neutrophil Count 5.8 X10^3/uL (2.0-7.7); Basophil# 0.04 X10^3/uL; Basophil% 0.4 % (0-1); Eosinophil# 0.05 X10^3/uL; Eosinophils% 0.5 % (0-5); Hematocrit 44.7 % (37-47); Hemoglobin 15.3 g/dL (12.0-15.0); Lymphocyte # 3.46 X10^3/ul (0.83-4.51); Lymphocyte % 33.6 % (19-41); Mean Corp Hgb Conc 34.2 g/dL (32-36); Mean Corpuscular Hgb 30.5 pg (27.0-32.0); Mean Platelet Vol. 9.4 fl (6.2-12.0); Monocyte# 0.87 X10^3/uL; Monocyte% 8.4 % (0-10); NRBC Flagged by Analyzer 0 % (0-5); Neutrophil # 5.82 X10^3/uL (2.7-7.7); Neutrophil % 56.4 % (47-70); Platelet Count 242 K/mm3 (150-450); RBC Distribution Width CV 13.7 % (11.6-14.6); RBC Distribution Width SD 44.4 fl (35.1-43.9); Red Blood Count 5.02 M/mm3 (4.2-5.4); White Blood Count 10.3 K/mm3 (4.4-11.0)
[2020-12-04 18:30] LABS: ALB/GLOB Ratio 0.9 RATIO (0.9-2.4); AST(SGOT) 16 U/L (15-37); Alanine Aminotransfer ALT/SGPT 34 U/L (13-56); Albumin, Serum 3.2 g/dL (3.2-5.0); Alkaline Phosphatase 80 U/L (45-117); Anion Gap 4 (5-15); BUN 26 mg/dL (7-18); BUN/Creat Ratio 32.9 RATIO (10-20); Calcium,Total 9.5 mg/dL (8.5-10.1); Chloride 105 mmol/L (98-107); Creatinine, Serum 0.79 mg/dL (0.55-1.02); EST Glomerular Filtration Rate 76 mL/min (>60); Est Glom Filt Rate - Afr Amer 92 mL/min (>60); Globulin 3.7 g/dL (2.2-4.2); Glucose 205 mg/dL (74-106); Potassium 4.1 mmol/L (3.5-5.1); Protein, Total 6.9 g/dL (6.4-8.2); Sodium Level 136 mmol/L (136-145)
== END ==
LOC: LAB 17:21
PROVIDERS: PCP Family Medicine Geriatric Medicine; Visit Provider Family Medicine Geriatric Medicine
DX: R10.9 Unspecified abdominal pain (principal)
CPT/HCPCS: 36415; 80053; 85025

== ENCOUNTER → 2020-12-05 09:30 | Outpatient (CLI) | payer MEDICARE, SELFPAY ==
--- NOTE | 2020-12-05 09:35 | CT_ITS ---
STUDY: CT ABDOMEN AND PELVIS WITH CONTRAST REASON FOR EXAM: Female, 70 years old. Right flank pain RADIATION DOSAGE (If Supplied By Facility): CTDIvol = ( 16.11 ) mGy, DLP = ( 643.63 ) mGycm TECHNIQUE: Transaxial images were obtained from the dome of the diaphragm to the symphysis pubis with oral contrast. 100 ml of ISOVUE-300 contrast was administered. Sagittal and coronal images were reconstructed. Individualized dose optimization techniques were used for this CT. COMPARISON: 03/31/20 FINDINGS: The visualized lung bases are clear. The visualized portions of the heart and pericardium are within normal limits. There are coronary artery calcifications noted. There are no calcified gallstones present. The liver is within normal limits. There are no suspicious hepatic lesions. The spleen is normal in size. The pancreas is within normal limits. The adrenal glands are within normal limits. There are no renal or ureteral stones. There is no hydronephrosis. There are no focal renal lesions. Normal visualized stomach. There is no bowel obstruction or inflammation. There is a large amount of stool in the colon, consistent with constipation. The appendix is visualized and appears normal. The aorta is normal in caliber. There are atherosclerotic calcifications noted in the aorta and its branches. There is no abdominal or pelvic free air, free fluid, fluid collection or lymphadenopathy. There are no destructive osseous lesions. There is stable superficial soft tissue calcifications in the gluteal regions. CT/Abdomen/Pelvis WITH Contrast IMPRESSION: No bowel obstruction or inflammation. Normal appendix. Constipation. Normal kidneys. No hydronephrosis. No calcified gallstones. Atherosclerosis and coronary artery disease. Electronically Signed: Shai Dumont MD at 12:33 EDT Tel , Service support ,
== END ==
LOC: CT 09:31
PROVIDERS: PCP Family Medicine Geriatric Medicine; Referring Provider Family Medicine Geriatric Medicine; Visit Provider Family Medicine Geriatric Medicine
DX: R10.9 Unspecified abdominal pain (principal)
CPT/HCPCS: 74177; Q9967

== ENCOUNTER → 2020-12-29 14:30 | Outpatient (CLI) | payer MEDICARE, SELFPAY ==
[2020-12-29 17:12] LABS: Absolute Lymphocyte Count 3.61 X10^3/uL (0.83-4.51); Basophil# 0.05 X10^3/uL; Basophil% 0.7 % (0-1); Eosinophil# 0.05 X10^3/uL; Eosinophils% 0.7 % (0-5); Hematocrit 47.7 % (37-47); Lymphocyte # 3.61 X10^3/ul (0.83-4.51); Lymphocyte % 48.2 % (19-41); Mean Corp Hgb Conc 33.5 g/dL (32-36); Mean Corpuscular Hgb 29.6 pg (27.0-32.0); Mean Corpuscular Volume 88.3 fL (81-99); Mean Platelet Vol. 10.1 fl (6.2-12.0); Monocyte# 0.82 X10^3/uL; Monocyte% 10.9 % (0-10); NRBC Flagged by Analyzer 0 % (0-5); Neutrophil # 2.95 X10^3/uL (2.7-7.7); Neutrophil % 39.4 % (47-70); Platelet Count 313 K/mm3 (150-450); RBC Distribution Width CV 13.7 % (11.6-14.6); RBC Distribution Width SD 44.2 fl (35.1-43.9); White Blood Count 7.5 K/mm3 (4.4-11.0)
[2020-12-29 17:49] LABS: Vitamin D,25 Hydroxy 8.9 ng/mL
[2020-12-29 18:14] LABS: ALB/GLOB Ratio 0.8 RATIO (0.9-2.4); AST(SGOT) 28 U/L (15-37); Alanine Aminotransfer ALT/SGPT 40 U/L (13-56); Albumin, Serum 3.4 g/dL (3.2-5.0); Alkaline Phosphatase 112 U/L (45-117); Anion Gap 12 (5-15); BUN 19 mg/dL (7-18); BUN/Creat Ratio 20.1 RATIO (10-20); Calcium,Total 9.8 mg/dL (8.5-10.1); Chloride 102 mmol/L (98-107); Cholesterol 353 mg/dL (200); Creatinine, Serum 0.95 mg/dL (0.55-1.02); EST Glomerular Filtration Rate 62 mL/min (>60); Est Glom Filt Rate - Afr Amer 75 mL/min (>60); Globulin 4.3 g/dL (2.2-4.2); Glucose 292 mg/dL (74-106); High Density Lipoprotein 42 mg/dL; Potassium 4.2 mmol/L (3.5-5.1); Protein, Total 7.7 g/dL (6.4-8.2); Sodium Level 137 mmol/L (136-145); Thyroid Stim Hormone (TSH) 4.95 uIU/mL (0.358-3.74); Triglycerides 828 mg/dL
== END ==
LOC: POLAB3 14:33
PROVIDERS: PCP Family Medicine Geriatric Medicine; Visit Provider Family Medicine Geriatric Medicine
DX: E11.9 Type 2 diabetes mellitus without complications (principal); E55.9 Vitamin D deficiency, unspecified; E78.5 Hyperlipidemia, unspecified; I10 Essential (primary) hypertension
CPT/HCPCS: 36415; 80053; 80061; 82306; 84443; 85025

== ENCOUNTER → 2020-12-31 09:11 | Outpatient (CLI) | payer MEDICARE, SELFPAY | LOC: POLAB3 09:12 | PROVIDERS: PCP Family Medicine Geriatric Medicine; Visit Provider Family Medicine Geriatric Medicine | DX: E11.9 Type 2 diabetes mellitus without complications (principal) | CPT/HCPCS: 36415; 82533 ==

== ENCOUNTER 2021-01-21 19:16 | Emergency (ER) | payer MEDICARE, SELFPAY ==
[2021-01-21 19:17] VITALS: RESP 16; TEMP 36.2; BMI 21.2
--- NOTE | 2021-01-21 19:20 | ED.RN ---
BLOOD PRESSURE CUFF PLACED ON RIGHT ARM. PT TELLS THIS RN AFTER CUFF STARTS SECOND CYCLE THAT SHE PREFERS IT ON HER LEFT ARM. PT HAS AN OLD SCAR AND THE BP CUFF MAKES IT HURT. BP CUFF PLACED ON LEFT ARM. PT WAS STATING THAT IT WAS HURTING TOO MUCH AND HER RIPPED IT OFF OF HER ARM STATING: GET IT OFF OF THERE IF IT HURTS. INFORMED THAT BP WAS NEEDED AND IT SOMETIMES HURTS, ESPECIALLY WHEN THE PT WAS SQUIRMING LIKE SHE WAS. FULL SITE OF VITALS NOT OBTAINABLE IN TRIAGE.
--- NOTE | 2021-01-21 19:30 | CT_ITS ---
STUDY: CT ABDOMEN AND PELVIS WITHOUT CONTRAST REASON FOR EXAM: Female, 70 years old. Kidney Stone RADIATION DOSAGE (If Supplied By Facility): CTDIvol = ( 6.60 ) mGy, DLP = ( 409.44 ) mGycm TECHNIQUE: Transaxial images were obtained from the dome of the diaphragm to the symphysis pubis without oral contrast, and without intravenous contrast. Sagittal and coronal images were reconstructed. Individualized dose optimization techniques were used for this CT. COMPARISON: December 05, 2020 FINDINGS: The visualized lung bases are unremarkable. The visualized portions of the heart are within normal limits. Normal liver. Normal gallbladder and extrahepatic biliary system. Normal spleen. Normal pancreas. Normal bilateral adrenal glands. Normal right kidney. Normal left kidney. Normal visualized stomach. Normal small intestine. Normal colon. There is abundant stool. The appendix is visualized and appears normal. There is diffuse atherosclerotic calcification of the abdominal aorta, without a demonstrated aneurysm. Normal inferior vena cava. Normal retroperitoneum. Normal urinary bladder. There is absence of the uterus consistent with a prior hysterectomy. There is no free fluid in the abdomen or pelvis. There is stable posterior soft tissue calcifications. Stable subcutaneous increased densities of the anterior abdominal wall. There is mild degenerative change of the spine. CT/Abdomen/Pelvis without Cont IMPRESSION: No stones or hydronephrosis. No mass or obstruction. Electronically Signed: Bryan Guan MD at 21:29 EDT , Service support ,
[2021-01-21 19:40] LABS: Absolute Lymphocyte Count 3.54 X10^3/uL (0.83-4.51); Absolute Neutrophil Count 5.2 X10^3/uL (2.0-7.7); Basophil# 0.06 X10^3/uL; Basophil% 0.6 % (0-1); Eosinophil# 0.11 X10^3/uL; Eosinophils% 1.1 % (0-5); Hematocrit 44.4 % (37-47); Hemoglobin 14.7 g/dL (12.0-15.0); Lymphocyte # 3.54 X10^3/ul (0.83-4.51); Lymphocyte % 35.4 % (19-41); Mean Corp Hgb Conc 33.1 g/dL (32-36); Mean Corpuscular Hgb 28.9 pg (27.0-32.0); Mean Corpuscular Volume 87.2 fL (81-99); Mean Platelet Vol. 9.4 fl (6.2-12.0); Monocyte# 1.08 X10^3/uL; Monocyte% 10.8 % (0-10); NRBC Flagged by Analyzer 0 % (0-5); Neutrophil # 5.19 X10^3/uL (2.7-7.7); Neutrophil % 51.8 % (47-70); Platelet Count 287 K/mm3 (150-450); RBC Distribution Width CV 13.8 % (11.6-14.6); RBC Distribution Width SD 44.2 fl (35.1-43.9); Red Blood Count 5.09 M/mm3 (4.2-5.4)
[2021-01-21 19:43] VITALS: BP 186/65
[2021-01-21] MEDS: Morphine 4 MG/ML Syringe IV ×2 (19:44→22:13)
[2021-01-21] MEDS: Ondansetron 4 MG/2 ML Vial IV (19:44)
[2021-01-21 19:57] LABS: Anion Gap 6 (5-15); BUN 10 mg/dL (7-18); BUN/Creat Ratio 9.7 RATIO (10-20); Calcium,Total 9.1 mg/dL (8.5-10.1); Chloride 101 mmol/L (98-107); Creatinine, Serum 1.03 mg/dL (0.55-1.02); EST Glomerular Filtration Rate 56 mL/min (>60); Est Glom Filt Rate - Afr Amer 68 mL/min (>60); Estimated Creatinine Clearance 41.44 ml/min; Glucose 271 mg/dL (74-106); Potassium 4.3 mmol/L (3.5-5.1); Sodium Level 135 mmol/L (136-145)
[2021-01-21] MEDS: 0.9% Normal Saline 1,000 ML 250 ML IV (20:00)
--- NOTE | 2021-01-21 20:17 | EX.ED.DYSGE1 ---
HPI History of Present Illness Chief Complaint: Flank Pain Detail of Chief Complaint: Intermittent left flank pain Informant: patient and spouse/S.O. Onset/Context/Timing Onset: Yesterday Context: Sudden Onset Timing: Intermittent and Waxes and wanes Quality: Colicky pain Location: Left flank Current Severity: Mild Maximum Severity: Severe Worsened by: Nothing Relieved by: Nothing Associated Symptoms Associated Symptoms: Nausea only Narrative Narrative: Patient is an elderly woman with history of diabetes, essential hypertension, hyperlipidemia and Covid infection who presents with intermittent left flank pain that is colicky in nature since yesterday. She denies history of renal ureterolithiasis. She is on a blood thinner. She denies dysuria, frequency, urgency or hematuria. She denies history of cholelithiasis, pancreatitis or diverticulitis. She has no history inflammatory bowel disorder. She denies trauma. She denies fever or chills. Prior similar symptoms: No Recent Illness/Hospitalization: No PFSH [facility] Medical History (Updated 01/21/21 @ 21:[address] Elías Flowers MD) Abscess of right elbow Acute pancreatitis Arthritis Back problem Diabetes Elevated hemoglobin A1c Essential (primary) hypertension Hormone deficiency Hyperlipidemia Mass of skin of right elbow Seasonal allergies Type 2 diabetes mellitus Home Medications lisinopril 2.5 mg tablet 2.5 mg PO DAILY 02/22/19 [History Last Taken 03/05/19] metoprolol tartrate 50 mg PO DAILY 03/06/19 [History Last Taken 03/05/19] levothyroxine 25 mcg tablet 25 mcg PO DAILY #1 tab 05/08/19 [Rx Last Taken Unknown] rosuvastatin 5 mg tablet 5 mg PO DAILY 05/08/19 [History Last Taken Unknown] glimepiride 2 mg tablet 2 mg PO BID #60 tab 07/02/19 [Rx Last Taken Unknown] insulin NPH and regular human 75 unit SC DAILY 01/07/20 [History Last Taken Unknown] apixaban 5 mg PO BID #120 tab 01/09/20 [Rx Last Taken Unknown] doxycycline monohydrate 100 mg capsule 100 mg PO BID #21 cap 07/16/20 [Rx Last Taken Unknown] atorvastatin [Lipitor] 20 mg PO QHS 01/21/21 [History Last Taken Unknown] insulin degludec [Tresiba FlexTouch U-200] 80 unit SUBCUT BID 01/21/21 [History Last Taken Unknown] Allergy/AdvReac Type Severity Reaction Status Date / Time diphenhydramine Allergy Swelling Verified 07/16/20 10:55 [From Bensanjuanitaryl] Family History Unknown Breast cancer Colon cancer Diabetes Myocardial infarction Heart disease Hypertension Hyperlipidemia Other Arthritis Surgical History History of Social History (Updated 01/21/21 @ 20:[address] Elías Flowers MD) household members: spouse Smoking Status: Never smoker alcohol intake: never substance use type: does not use what type of physical activity do you participate in: none ROS ROS ED Constitutional Constitutional ED: Denies chills, fever(s), subjective, sweats or weight loss Eyes Eyes: Denies blurry vision, change in vision or diplopia ENT ENT ED: Denies ear pain, rhinorrhea or sore throat Cardiovascular Cardiovascular: Denies chest pain, palpitations or racing heartbeat Respiratory/Chest Respiratory/Chest: Denies cough, dyspnea, dyspnea on exertion or sputum Gastrointestinal Gastrointestinal: Reports nausea; Denies abdominal pain, constipation, diarrhea, melena or vomiting Genitourinary Genitourinary ED: Denies dysuria, hematuria or urinary frequency Musculoskeletal Musculoskeletal: Reports back pain; Denies arthralgias, myalgias or neck pain Integumentary Denies rash Neurologic Neurologic: Denies headache(s) or weakness Endocrine Endocrinology: Denies polydipsia, polyphagia or polyuria Allergic/Immunologic Allergic/Immunologic ED: Denies urticaria EXAM Physical Exam Const Vital Signs: 01/21/21 19:17 01/21/21 19:31 01/21/21 19:43 Temperature 97.2 F L Temperature Source Temporal Pulse Rate Respiratory Rate 16 Respiratory Effort Normal Non-Labored Respiratory Pattern Normal Blood Pressure 186/65 H Blood Pressure Mean 105 Pulse Ox Oxygen Delivery Method Room Air 01/21/21 21:30 Temperature Temperature Source Pulse Rate 62 Respiratory Rate 18 Respiratory Effort Respiratory Pattern Blood Pressure Blood Pressure Mean Pulse Ox 95 Oxygen Delivery Method Room Air Positive well nourished, well developed and obese General Appearance ED: well developed and NAD Nutritional Appearance: obese HEENT Reports TM's clear and moist mucous membranes HEENT Narrative: Head is atraumatic normocephalic. Negative for trauma or tenderness Tympanic Membrane ED: Yes TM's clear Eyes PERRL and EOMs intact bilaterally General Eye ED: Negative for pale conjunctiva or scleral icterus Neck no lymphadenopathy, supple and no JVD Chest Wall palpation of chest normal Resp normal respiratory effort and clear to auscultation bilaterally Cardio regular rate, regular rhythm, S1 normal heart sound, S2 normal heart sound and no murmurs GI normal to inspection, nondistended, normoactive bowel sounds, non-tender and non-distended Back/Spine General Back: CVA tenderness left Cervical Spine: Negative for cervical spine tenderness Thoracic Spine / Upper Back: Negative for thoracic spinal tenderness or paraspinal muscle tenderness Extremity normal to inspection General Extremety ED: Negative for edema or tenderness General Extremity: Negative for edema Neuro oriented x3, CN's II-XII intact bilaterally and no sensory deficits noted Sensorium / Orientation: alert Motor Exam: strength 5/5 throughout Psych mental status grossly normal Skin no rashes or lesions noted and no wounds MDM MDM MDM Narrative Medical decision making narrative: Differential diagnoses be ureterolithiasis, urinary tract infection/pyelonephritis, flank pain of unknown etiology. Lab Data Attestation: I reviewed the patient's lab results. Lab results narrative: CBC, basic metabolic panel are unremarkable except for a glucose of 271.. Urine is remarkable protein and glucose. There is no ketones. Labs: Laboratory Results - last 24 hr 01/21/21 01/21/21 01/21/21 19:29 19:29 21:19 WBC 10.0 RBC 5.09 Hgb 14.7 Hct 44.4 MCV 87.2 MCH 28.9 MCHC 33.1 RDW Std Deviation 44.2 H RDW Coeff of Melvina 13.8 Plt Count 287 MPV 9.4 Immature Gran % (Auto) 0.300 Neut % (Auto) 51.8 Lymph % (Auto) 35.4 [place] % (Auto) 10.8 H Eos % (Auto) 1.1 Baso % (Auto) 0.6 Absolute Neuts (auto) 5.2 Absolute Lymphs (auto) 3.54 Nucleated RBC % 0 Sodium 135 L Potassium 4.3 Chloride 101 Carbon Dioxide 28.0 Anion Gap 6 BUN 10 Creatinine 1.03 H Estim Creat Clear Calc 41.44 Est GFR (MDRD) Af Amer 68 Est GFR (MDRD) Non-Af 56 L BUN/Creatinine Ratio 9.7 L Glucose 271 H Calcium 9.1 Urine Color Yellow Urine Clarity Clear Urine pH 7.0 Ur Specific [place] 1.010 Urine Protein 30 H Urine Glucose (UA) 1000 H Urine Ketones Negative Urine Occult Blood Negative Urine Nitrite Negative Urine Bilirubin Negative Urine Urobilinogen Normal Ur Leukocyte Esterase Negative Urine RBC 0 SEEN Urine WBC 0 SEEN Ur Squamous Epith Cells 0-5 SEEN Urine Bacteria 0 SEEN Urine Mucus 0 SEEN Radiography Diagnostic Testing: Clinical Impression(s) from Imaging Studies Abdomen/Pelvis CT 01/21/21 19:30 IMPRESSION: No stones or hydronephrosis. No mass or obstruction. Electronically Signed: Bryan Guan MD at 21:29 EDT , Service support , Discharge Plan Triage Chief Complaint: Flank Pain ED Provider: Elías Flowers Dx/Rx/DC Orders Clinical Impression: Acute abdominal pain in left flank, Hyperglycemia due to type 2 diabetes mellitus Instructions: ED Diabetic Hyperglycemia, ED Flank Pain, Uncertain Cause Prescriptions: No Action lisinopril 2.5 mg tablet 2.5 mg PO DAILY RF: 0 rosuvastatin 5 mg tablet 5 mg PO DAILY RF: 0 levothyroxine 25 mcg tablet 25 mcg PO DAILY Qty: 1 RF: 0 glimepiride 2 mg tablet 2 mg PO BID Qty: 60 RF: 6 doxycycline monohydrate 100 mg capsule 100 mg PO BID Qty: 21 RF: 1 metoprolol tartrate 50 MG tablet 50 mg PO DAILY RF: 0 insulin NPH and regular human 100 UNITS/ML suspension 75 unit SC DAILY RF: 0 apixaban 5 MG tablet 5 mg PO BID Qty: 120 RF: 0 atorvastatin [Lipitor] 20 mg Tablet 20 mg PO QHS RF: 0 Tresiba FlexTouch U-200 200 unit/mL (3 mL) insulin pen 80 unit SUBCUT BID RF: 0 Primary Care Provider: Alfonso Carlson Chi Referrals: Alfonso Carlson Chi, MD [Primary Care Provider] - 3-5 Days if not improving Disposition Disposition: Home, Self Care
[2021-01-21 21:23] LABS: Bacteria 0 SEEN /hpf (None Seen); Mucous, Urine 0 SEEN /hpf (<or=2+); Red Blood Cells-Urine 0 SEEN /hpf (0-5); White Blood Cells 0 SEEN /hpf (0-5)
[2021-01-21 21:30] VITALS: PULSE 62; RESP 18; O2SAT 95
[2021-01-21 21:35] LABS: Color, Urine Yellow (Yellow); Glucose, Dipstick 1000 mg/dl (Normal); Ketone-Dipstick Negative (Negative); Leukocyte Esterase-Dipstick Negative /ul (Negative); Nitrite-Dipstick Negative (Negative); Occult Blood-Urine Negative /ul (Negative); Protein-Dipstick 30 mg/dl (Negative); Urine Bilirubin Dipstick Negative (Negative); Urine Clarity Clear (Clear); Urine Urobilinogen Normal (Normal)
[2021-01-21 21:44] LABS: Squamous Epithelial Cells - UA 0-5 SEEN /hpf (5-10)
[2021-01-21] MEDS: Dicyclomine 10 MG Capsule 20 MG PO (22:13)
[2021-01-21 23:45] VITALS: BP 122/79; PULSE 72; RESP 15; O2SAT 97
== END 2021-01-21 23:47 | disposition home or self-care (01) ==
PROVIDERS: Emergency Provider Emergency Medicine; PCP Family Medicine Geriatric Medicine
DX: R10.9 Unspecified abdominal pain (principal); E11.65 Type 2 diabetes mellitus with hyperglycemia; E78.5 Hyperlipidemia, unspecified; I10 Essential (primary) hypertension; Z79.4 Long term (current) use of insulin; Z79.899 Other long term (current) drug therapy
CPT/HCPCS: 74176; 80048; 81001; 85025; 96374; 96375; 96376; 99284; J7030; A4216; J2405

== ENCOUNTER 2021-01-26 20:13 | Emergency (ER) | payer MEDICARE, SELFPAY ==
[2021-01-26 20:14] VITALS: BP 131/79; PULSE 101; RESP 20; TEMP 36.3; O2SAT 100; BMI 22.3
--- NOTE | 2021-01-26 20:42 | CT_ITS ---
EXAM: CT Abdomen and Pelvis With Intravenous Contrast CLINICAL INDICATION: 70 years old, Female; Pain peritonitis suspect acute diverticulitis TECHNIQUE: Helically acquired images were obtained of the abdomen and pelvis with intravenous contrast. This CT exam was performed using one or more of the following dose reduction techniques: automated exposure control, adjustment of the mA and/or kV according to patient size, and/or use of iterative reconstruction technique. This report was created using [employer] report generation technology. CONTRAST: IV 100mL Isovue-370 COMPARISON: None. FINDINGS: Lower thorax: Atelectasis in the lung bases. No cardiomegaly. No significant pericardial effusion. ABDOMEN: Liver: Unremarkable. Homogeneous. No focal mass. Gallbladder and bile ducts: Unremarkable. No calcified gallstones. No gallbladder distention or wall edema. No intra- or extrahepatic biliary ductal dilation. Pancreas: Unremarkable. No focal cystic or solid mass. Spleen: Unremarkable. Normal size without focal cystic or solid mass. Adrenals: Unremarkable. No nodules. Kidneys and ureters: Simple left renal cyst. No follow-up of this simple cyst is necessary. Normal renal size and position. No hydronephrosis. Stomach and bowel: Fecal retention in the colon consistent with constipation. No stomach or bowel distention. No significant diverticuli in the colon. No diverticulitis. PELVIS: Appendix: Normal appendix. Bladder: Unremarkable. Reproductive: Hysterectomy. ABDOMEN and PELVIS: Intraperitoneal space: Unremarkable. No ascites or other fluid collection. No free air. Bones/joints: Unremarkable. No suspicious lytic or blastic abnormality. Soft tissues: Calcifications in the subcutaneous fat of the buttocks bilaterally which appears chronic. No discrete abdominal or pelvic wall hernia. Vasculature: Atherosclerotic disease. Abdominal aorta is non-dilated. Lymph nodes: Unremarkable. No enlarged lymph nodes. CT/Abdomen/Pelvis W IV Cont ONLY IMPRESSION: 1. No significant diverticuli in the colon. No diverticulitis. 2. Fecal retention in the colon consistent with constipation. Electronically Signed: Hank Calles MD at 22:28 EDT Tel , Service support ,
--- NOTE | 2021-01-26 20:45 | ED.VIS.GI ---
HPI HPI - GI History of Present Illness Chief Complaint: Abd Pain Detail of Chief Complaint: Left-sided abdominal pain Informant: patient and spouse/S.O. Abdominal Pain/Flank Pain Onset: Yesterday Context: Sudden Onset Timing: Continuous Quality: Aching and Cramping Location: LUQ and LLQ Current Severity: Mild Maximum Severity: Severe Worsened by: Nothing Relieved by: Nothing Nausea/Vomiting/Emesis GI Symptom: Positive for Nausea; Negative for Vomiting Diarrhea/Melena/Hematochezia GI Symptom: Negative for Diarrhea, Melena and Hematochezia Associated Symptoms Associated Symptoms: Negative for Dysuria, Frequency and Hematuria LMP: Postmenopausal Narrative Narrative: Patient is an elderly woman who presents with left-sided arm pain started last evening. Pain is localized to the left side. Nothing makes it better or worse. She reports nausea. She states she has not had any gas since last evening. She states she had a small bowel movement this morning. She denies dysuria, frequency, urgency or hematuria. She had a colonoscopy 5 years ago and was told it was unremarkable. She has no history of diverticulosis diverticulitis. She denies history of renal or ureterolithiasis. She denies fever, chills night sweats. Denies weight gain or weight loss. Prior similar symptoms: No Recent Illness/Hospitalization: No PFSH [facility] Medical History (Updated 01/26/21 @ 22:[address] Elías Flowers MD) Abscess of right elbow Acute pancreatitis Arthritis Back problem Diabetes Elevated hemoglobin A1c Essential (primary) hypertension Hormone deficiency Hyperlipidemia Mass of skin of right elbow Seasonal allergies Type 2 diabetes mellitus Home Medications lisinopril 2.5 mg tablet 2.5 mg PO DAILY 02/22/19 [History Last Taken 03/05/19] metoprolol tartrate 50 mg PO DAILY 03/06/19 [History Last Taken 03/05/19] levothyroxine 25 mcg tablet 25 mcg PO DAILY #1 tab 05/08/19 [Rx Last Taken Unknown] rosuvastatin 5 mg tablet 5 mg PO DAILY 05/08/19 [History Last Taken Unknown] glimepiride 2 mg tablet 2 mg PO BID #60 tab 07/02/19 [Rx Last Taken Unknown] insulin NPH and regular human 75 unit SC DAILY 01/07/20 [History Last Taken Unknown] apixaban 5 mg PO BID #120 tab 01/09/20 [Rx Last Taken Unknown] doxycycline monohydrate 100 mg capsule 100 mg PO BID #21 cap 07/16/20 [Rx Last Taken Unknown] atorvastatin [Lipitor] 20 mg PO QHS 01/21/21 [History Last Taken Unknown] hydrocodone-acetaminophen 1 tab PO Q6H PRN PRN 3 Days #10 tablet 01/21/21 [Rx Last Taken Unknown] insulin degludec [Tresiba FlexTouch U-200] 80 unit SUBCUT BID 01/21/21 [History Last Taken Unknown] Allergy/AdvReac Type Severity Reaction Status Date / Time diphenhydramine Allergy Swelling Verified 01/26/21 20:13 [From Bennani] Family History Unknown Breast cancer Colon cancer Diabetes Myocardial infarction Heart disease Hypertension Hyperlipidemia Other Arthritis Surgical History History of Social History household members: spouse Smoking Status: Never smoker alcohol intake: never substance use type: does not use what type of physical activity do you participate in: none ROS ROS ED Constitutional Constitutional ED: Denies chills, fever(s), subjective, sweats or weight loss ENT ENT ED: Denies ear pain, rhinorrhea or sore throat Cardiovascular Cardiovascular: Denies chest pain, palpitations or racing heartbeat Respiratory/Chest Respiratory/Chest: Denies cough, dyspnea, dyspnea on exertion or sputum Gastrointestinal Gastrointestinal: Reports abdominal pain, constipation and nausea; Denies diarrhea, melena or vomiting Genitourinary Genitourinary ED: Denies dysuria, hematuria or urinary frequency Musculoskeletal Musculoskeletal: Denies arthralgias, back pain, myalgias or neck pain Integumentary Denies rash Neurologic Neurologic: Denies headache(s) or weakness Psychiatric Psychiatric: Denies anxiety or depression Endocrine Endocrinology: Denies polydipsia, polyphagia or polyuria Hematologic/Lymphatic Hematologic/Lymphatic: Denies easy bleeding or easy bruising EXAM Physical Exam Const Vital Signs: 01/26/21 20:14 Temperature 97.4 F L Temperature Source Temporal Pulse Rate 101 H Respiratory Rate 20 H Blood Pressure 131/79 H Blood Pressure Mean 96 Pulse Ox 100 Oxygen Delivery Method Room Air Positive well nourished, well developed and obese General Appearance ED: well developed and other Patient appears uncomfortable. ; Negative for pallor Nutritional Appearance: obese HEENT Reports TM's clear and dry mucous membranes normocephalic and atraumatic Tympanic Membrane ED: Yes TM's clear Mouth ED: Yes dry mucous membranes Mouth: dry mucous membranes Eyes PERRL and EOMs intact bilaterally General Eye ED: Negative for pale conjunctiva or scleral icterus Neck no lymphadenopathy, supple and no JVD Resp normal respiratory effort and clear to auscultation bilaterally Cardio regular rate, regular rhythm, S1 normal heart sound, S2 normal heart sound and no murmurs GI no masses; Negative for non-tender or non-distended Inspection: other Other Details: Left lower quadrant Auscultation: Negative for normoactive bowel sounds Palpation: soft, tender LLQ and LUQ, guarding LLQ and LUQ and rebound tenderness present; Negative for rigid Back/Spine no CVA tenderness Cervical Spine: Negative for cervical spine tenderness Thoracic Spine / Upper Back: Negative for thoracic spinal tenderness Extremity full ROM General Extremety ED: Negative for edema or tenderness General Extremity: Negative for edema Neuro CN's II-XII intact bilaterally Sensorium / Orientation: alert, oriented to person, oriented to place and oriented to time Motor Exam: strength 5/5 throughout Psych mental status grossly normal and thought process normal Skin no wounds General Skin Exam: Negative for jaundice or pallor Lesions: no lesions Rashes: no rashes MDM MDM MDM Narrative Medical decision making narrative: Patient has peritonitis. Suspect diverticulitis. Need to rule out perforation. CT without contrast was initially ordered because of her age and medical problems. Per the quality check recommended IV contrast. Therefore IV contrast was ordered. She does have 2 sirs criteria. She is now febrile. Since she has peritonitis antibiotics were ordered prior to obtaining blood cultures. She is not hemodynamically unstable and there is no obvious evidence of endorgan dysfunction. Lab Data Attestation: I reviewed the patient's lab results. Labs: Laboratory Results - last 24 hr 01/26/21 01/26/21 01/26/21 21:05 21:05 21:05 WBC 10.0 RBC 5.30 Hgb 15.2 H Hct 45.7 MCV 86.2 MCH 28.7 MCHC 33.3 RDW Std Deviation 43.8 RDW Coeff of Melvina 13.9 Plt Count 316 MPV 9.4 Immature Gran % (Auto) 0.400 Neut % (Auto) 50.6 Lymph % (Auto) 36.9 [place] % (Auto) 10.8 H Eos % (Auto) 0.8 Baso % (Auto) 0.5 Absolute Neuts (auto) 5.1 Absolute Lymphs (auto) 3.70 Nucleated RBC % 0 Sodium 134 L Potassium 4.1 Chloride 100 Carbon Dioxide 25.0 Anion Gap 9 BUN 25 H Creatinine 1.03 H Estim Creat Clear Calc 43.26 Est GFR (MDRD) Af Amer 68 Est GFR (MDRD) Non-Af 56 L BUN/Creatinine Ratio 24.3 H Glucose 325 H Lactic Acid 1.0 Calcium 9.3 Radiography Diagnostic Testing: Clinical Impression(s) from Imaging Studies Abdomen/Pelvis CT 01/26/21 20:42 IMPRESSION: 1. No significant diverticuli in the colon. No diverticulitis. 2. Fecal retention in the colon consistent with constipation. Electronically Signed: Hank Calles MD at 22:28 EDT Tel , Service support , Discharge Plan Triage Chief Complaint: Abd Pain ED Provider: Elías Flowers Dx/Rx/DC Orders Clinical Impression: Obstipation, Diverticulosis Instructions: ED Constipation (Adult), ED Diverticulosis Prescriptions: No Action lisinopril 2.5 mg tablet 2.5 mg PO DAILY RF: 0 rosuvastatin 5 mg tablet 5 mg PO DAILY RF: 0 levothyroxine 25 mcg tablet 25 mcg PO DAILY Qty: 1 RF: 0 glimepiride 2 mg tablet 2 mg PO BID Qty: 60 RF: 6 doxycycline monohydrate 100 mg capsule 100 mg PO BID Qty: 21 RF: 1 metoprolol tartrate 50 MG tablet 50 mg PO DAILY RF: 0 insulin NPH and regular human 100 UNITS/ML suspension 75 unit SC DAILY RF: 0 apixaban 5 MG tablet 5 mg PO BID Qty: 120 RF: 0 atorvastatin [Lipitor] 20 mg Tablet 20 mg PO QHS RF: 0 Tresiba FlexTouch U-200 200 unit/mL (3 mL) insulin pen 80 unit SUBCUT BID RF: 0 hydrocodone-acetaminophen [hydrocodone-acetaminophen] 1 TABLET tablet 1 tab PO Q6H PRN PRN (Reason: Pain) 3 Days Qty: 10 RF: 0 Primary Care Provider: Alfonso Carlson Chi Referrals: Alfonso Carlson Chi, MD [Primary Care Provider] - 1 Week if not improving Disposition Disposition: Home, Self Care
[2021-01-26] MEDS: Ondansetron 4 MG/2 ML Vial IV (21:08)
[2021-01-26] MEDS: Morphine 4 MG/ML Syringe IV (21:08)
[2021-01-26] MEDS: 0.9% Normal Saline 1,000 ML 125 ML IV (21:10)
[2021-01-26 21:11] LABS: Absolute Neutrophil Count 5.1 X10^3/uL (2.0-7.7); Basophil# 0.05 X10^3/uL; Basophil% 0.5 % (0-1); Eosinophil# 0.08 X10^3/uL; Eosinophils% 0.8 % (0-5); Hematocrit 45.7 % (37-47); Hemoglobin 15.2 g/dL (12.0-15.0); Lymphocyte % 36.9 % (19-41); Mean Corp Hgb Conc 33.3 g/dL (32-36); Mean Corpuscular Hgb 28.7 pg (27.0-32.0); Mean Corpuscular Volume 86.2 fL (81-99); Mean Platelet Vol. 9.4 fl (6.2-12.0); Monocyte# 1.08 X10^3/uL; Monocyte% 10.8 % (0-10); NRBC Flagged by Analyzer 0 % (0-5); Neutrophil # 5.09 X10^3/uL (2.7-7.7); Neutrophil % 50.6 % (47-70); Platelet Count 316 K/mm3 (150-450); RBC Distribution Width CV 13.9 % (11.6-14.6); RBC Distribution Width SD 43.8 fl (35.1-43.9)
[2021-01-26 21:40] LABS: Anion Gap 9 (5-15); BUN 25 mg/dL (7-18); BUN/Creat Ratio 24.3 RATIO (10-20); Calcium,Total 9.3 mg/dL (8.5-10.1); Chloride 100 mmol/L (98-107); Creatinine, Serum 1.03 mg/dL (0.55-1.02); EST Glomerular Filtration Rate 56 mL/min (>60); Est Glom Filt Rate - Afr Amer 68 mL/min (>60); Estimated Creatinine Clearance 43.26 ml/min; Glucose 325 mg/dL (74-106); Potassium 4.1 mmol/L (3.5-5.1); Sodium Level 134 mmol/L (136-145)
[2021-01-26 22:55] VITALS: BP 167/74; PULSE 78; RESP 16; O2SAT 98
== END 2021-01-26 22:56 | disposition home or self-care (01) ==
PROVIDERS: Emergency Provider Emergency Medicine; PCP Family Medicine Geriatric Medicine
DX: K59.00 Constipation, unspecified (principal); K57.90 Diverticulosis of intestine, part unspecified, without perforation or abscess without bleeding; E66.9 Obesity, unspecified; E11.9 Type 2 diabetes mellitus without complications; E78.5 Hyperlipidemia, unspecified; I10 Essential (primary) hypertension; Z79.4 Long term (current) use of insulin; Z79.01 Long term (current) use of anticoagulants; Z79.899 Other long term (current) drug therapy
CPT/HCPCS: 74177; 80048; 83605; 85025; 96365; 96366; 96375; 99283; J7030; Q9967; A4216; J2405

== ENCOUNTER → 2021-02-17 11:52 | Outpatient (CLI) | payer MEDICARE, SELFPAY ==
--- NOTE | 2021-02-17 12:00 | RAD_ITS ---
STUDY: X-RAY - LUMBAR SPINE REASON FOR EXAM: Female, 71 years old. BACK PAIN TECHNIQUE: 3 view(s) of the lumbar spine were obtained. COMPARISON: Comparison is made with prior study dated 05/15/2000. FINDINGS: Normal lumbar lordosis. There is no substantial scoliosis. Minimal anterior listhesis of L5 on S1. Normal vertebral bodies and endplates. Normal disc space heights. Facet joint osteoarthritis. The soft tissue structures are unremarkable. RAD/Lumbar Spine 2 or 3 Views IMPRESSION: Degenerative changes of the spine, as detailed above. Electronically Signed: Al Thacker MD at 15:03 EST , Service support ,
== END ==
PROVIDERS: PCP Family Medicine Geriatric Medicine; Referring Provider Family Medicine Geriatric Medicine; Visit Provider Family Medicine Geriatric Medicine
DX: M54.9 Dorsalgia, unspecified (principal)
CPT/HCPCS: 72100

== ENCOUNTER 2021-02-17 20:07 | Observation (INO) | payer MEDICARE, SELFPAY ==
[2021-02-17 20:09] VITALS: BP 148/71; PULSE 82; RESP 16; TEMP 36.3; O2SAT 96; BMI 26.4
--- NOTE | 2021-02-17 20:43 | RAD_ITS ---
EXAM: XR CHEST, 1 VIEW CLINICAL INDICATION: Technologist Notes Other, STERNAL CHEST PAIN, NON RADIATING WHEN SHE WOKE UP FOR A NAP AT 1830. ASA AND 1 NTG GIVEN BY EMS. NO RELIEF WITH NTG TECHNIQUE: Frontal view of the chest. This report was created using [employer] report generation technology. COMPARISON: 01/07/2020 FINDINGS: LUNGS AND PLEURAL SPACES: Unremarkable. No consolidation or edema. No pneumothorax. No effusion. HEART: Unremarkable. Cardiac silhouette not enlarged. MEDIASTINUM: Central airways and mediastinal contour are unremarkable. BONES/JOINTS: Unremarkable. SOFT TISSUES: Unremarkable. VASCULATURE: There are thoracic aortic calcifications consistent for atherosclerotic disease. RAD/Chest 1 View (Portable) IMPRESSION: No acute findings in the chest. Electronically Signed: Priyank Gallagher MD at 22:32 EST , Service support ,
--- NOTE | 2021-02-17 20:43 | EKG12_ITS ---
Test Reason : CP Blood Pressure : / mmHG Vent. Rate : 080 BPM Atrial Rate : 080 BPM P-R Int : 132 ms QRS Dur : 072 ms QT Int : 406 ms P-R-T Axes : 046 -32 060 degrees QTc Int : 468 ms Normal sinus rhythm Left axis deviation Abnormal ECG Confirmed by ZION KLEIN, MAICOL ([id number]), avid editor CHECO VELASCO ([id number]) on 02/18/2021 1:16:22 PM Referred By: JOAQUINA Confirmed By:MAICOL DONOVAN MD
--- NOTE | 2021-02-17 20:44 | ED.VIS.CHEST ---
HPI History of Present Illness Chief Complaint: Chest Pain Detail of Chief Complaint: Chest pain that started approximately 6 PM Informant: patient Onset/Context/Timing Current Severity: 0/10 Narrative Narrative: Patient presents to the emergency department complaint of chest pain that started on 6 PM after she woke up from a nap. Patient described a sharp pain in the center of her chest without any real radiation. She felt nauseated with it. She denies any shortness of breath. Patient states that the pain has been intermittent. She denies recent travel or surgery. Patient states that she was at her primary care physician's office earlier in the day for pain in her right hip and down her right leg that was thought to be related to sciatic nerve. Patient denies recent travel or surgery. She is not currently anticoagulated. Patient denies recent illness. Prior Similar Symptoms: No PFSH PFS Medical History (Updated 02/17/21 @ 23:[address] Chris Garcia DO) Abscess of right elbow Acute pancreatitis Arthritis Back problem Diabetes Elevated hemoglobin A1c Essential (primary) hypertension Hormone deficiency Hyperlipidemia Mass of skin of right elbow Seasonal allergies Type 2 diabetes mellitus Home Medications metoprolol tartrate 50 mg PO DAILY 03/06/19 [History Last Taken 02/17/21] insulin degludec [Tresiba FlexTouch U-200] 80 unit SUBCUT BID 01/21/21 [History Last Taken 02/17/21] aspirin [Aspirin Low Dose] 81 mg PO DAILY 02/17/21 [History Last Taken 02/17/21] citalopram 20 mg PO DAILY 02/17/21 [History Last Taken 02/17/21] levothyroxine [Euthyrox] 50 mcg PO DAILY 02/17/21 [History Last Taken 02/17/21] linaclotide [Linzess] 72 mcg PO DAILY 02/17/21 [History Last Taken 02/17/21] lisinopril 10 mg PO DAILY 02/17/21 [History Last Taken 02/17/21] pioglitazone 30 mg PO DAILY 02/17/21 [History Last Taken 02/17/21] Allergy/AdvReac Type Severity Reaction Status Date / Time diphenhydramine Allergy Swelling Verified 01/26/21 20:13 [From Gabi] Family History Unknown Breast cancer Colon cancer Diabetes Myocardial infarction Heart disease Hypertension Hyperlipidemia Other Arthritis Surgical History History of Social History household members: spouse Smoking Status: Never smoker alcohol intake: never substance use type: does not use what type of physical activity do you participate in: none ROS ROS ED Review of Systems ROS Unobtainable: other Constitutional Constitutional ED: Reports lethargy; Denies chills, fever(s), sweats or weight loss Eyes Eyes: Denies blurry vision, change in vision or diplopia ENT ENT ED: Denies rhinorrhea or sore throat Cardiovascular Cardiovascular: Reports chest pain and racing heartbeat; Denies orthopnea Respiratory/Chest Respiratory/Chest: Reports dyspnea and dyspnea on exertion; Denies cough, orthopnea or sputum Gastrointestinal Gastrointestinal: Reports nausea; Denies abdominal pain, diarrhea or vomiting Genitourinary Genitourinary ED: Denies dysuria, hematuria or urinary frequency Musculoskeletal Musculoskeletal: Denies arthralgias, back pain, myalgias or neck pain Integumentary Denies abscess, Abrasions or rash Neurologic Neurologic: Denies headache(s) or weakness Psychiatric Psychiatric: Denies anxiety, depression or suicidal thoughts Endocrine Endocrinology: Denies polydipsia, polyphagia or polyuria Hematologic/Lymphatic Hematologic/Lymphatic: Denies easy bleeding, easy bruising or lymphadenopathy Allergic/Immunologic Allergic/Immunologic ED: Denies mouth swelling, tongue swelling or urticaria EXAM Physical Exam Const Vital Signs: 02/17/21 20:09 02/17/21 21:01 Temperature 97.4 F L Temperature Source Oral Pulse Rate 82 Respiratory Rate 16 Respiratory Effort Normal Blood Pressure 148/71 H Blood Pressure Mean 96 Pulse Ox 96 Oxygen Delivery Method Room Air Room Air Positive well nourished and well developed General Appearance ED: well developed and NAD HEENT Reports TM's clear and moist mucous membranes normocephalic and atraumatic; Negative for trauma or tenderness Tympanic Membrane ED: Yes TM's clear Eyes PERRL and EOMs intact bilaterally General Eye ED: Negative for pale conjunctiva or scleral icterus Neck no lymphadenopathy, supple and no JVD General: Negative for tenderness Chest Wall inspection of chest normal and palpation of chest normal Chest: Negative for tenderness Resp normal respiratory effort and clear to auscultation bilaterally Effort and Inspection: Negative for respiratory distress or pain with movement Auscultation: Negative for rhonchi, wheezes or diminished lung sounds Cardio regular rate, regular rhythm, S1 normal heart sound, S2 normal heart sound and no murmurs Peripheral Pulses: pulses 2+ throughout GI normal to inspection, nondistended, normoactive bowel sounds, soft to palpation, non-tender, non-distended and no masses Back/Spine no CVA tenderness and no thoracic nor lumbar tenderness Extremity normal to inspection General Extremety ED: Negative for edema General Extremity: Negative for edema Neuro oriented x3, CN's II-XII intact bilaterally, no sensory deficits noted and gait normal Sensorium / Orientation: awake, alert, oriented to person, oriented to place and oriented to time Motor Exam: strength 5/5 throughout and strength abnormal Psych mental status grossly normal Skin no rashes or lesions noted and no wounds Heart Score History: Moderately Suspicious ECG: Nonspecific Repolarization Age: >/= 65 years Risk Factors: >/= 3 Risk Factors or History of CAD Troponin: </= Normal Limit Score: 6 MDM MDM MDM Narrative Medical decision making narrative: IV line established on arrival. Patient had received aspirin by EMS and received 1 sublingual nitro which did not improve her pain. Initially she was given morphine and Zofran for pain. She is continued to have pain and was given a GI cocktail. GI cocktail did not seem to improve her pain. CTA of the chest was ordered as she had an elevated D-dimer and the results of this are currently pending. Patient received insulin 12 units subcu due to elevated blood sugar over 509 SPECT this is related to Solu-Medrol she received earlier in the day as well as Kenalog injection. Patient does have a heart score of 6 and continues with ongoing chest pain. Case will be discussed with hospitalist evaluate for admission. Lab Data Attestation: I reviewed the patient's lab results. Labs: Laboratory Results - last 24 hr 02/17/21 02/17/21 02/17/21 21:10 21:10 21:10 WBC 7.1 RBC 4.75 Hgb 13.7 Hct 41.6 MCV 87.6 MCH 28.8 MCHC 32.9 RDW Std Deviation 45.0 H RDW Coeff of Melvina 14.1 Plt Count 224 MPV 10.5 Immature Gran % (Auto) 0.400 Neut % (Auto) 78.5 H Lymph % (Auto) 19.7 [place] % (Auto) 1.3 Eos % (Auto) 0.0 Baso % (Auto) 0.1 Absolute Neuts (auto) 5.5 Absolute Lymphs (auto) 1.39 Nucleated RBC % 0 D-Dimer Quant (PE/DVT) 1.25 H* Sodium 134 L Potassium 4.5 Chloride 102 Carbon Dioxide 22.0 Anion Gap 10 BUN 38 H Creatinine 1.31 H Estim Creat Clear Calc 30.70 Est GFR (MDRD) Af Amer 51 L Est GFR (MDRD) Non-Af 42 L BUN/Creatinine Ratio 29.0 H Glucose 542 H* Calcium 8.9 Total Bilirubin 0.40 Direct Bilirubin 0.11 AST 22 ALT 28 Alkaline Phosphatase 140 H Troponin I High Sens 7 Total Protein 6.6 Albumin 3.0 L Globulin 3.6 Lipase 200 Radiography Chest X-Ray - ED: 1 View Diagnostic Testing: Clinical Impression(s) from Imaging Studies Chest X-Ray 02/17/21 20:43 IMPRESSION: No acute findings in the chest. Electronically Signed: Priyank Gallagher MD at 22:32 EST , Service support , 1 view chest x-ray obtained interpreted by myself as no acute disease process. Official report pending from radiology. EKG Initial EKG: Attestation: I personally reviewed and interpreted this EKG as follows: Comments: Sinus rhythm with a ventricular rate of [address] changes noted. Discharge Plan Triage Chief Complaint: Chest Pain ED Provider: Chris Garcia Dx/Rx/DC Orders Clinical Impression: Chest pain, Acute hyperglycemia Prescriptions: No Action metoprolol tartrate 50 MG tablet 50 mg PO DAILY RF: 0 Tresiba FlexTouch U-200 200 unit/mL (3 mL) insulin pen 80 unit SUBCUT BID RF: 0 aspirin [Aspirin Low Dose] 81 mg Tablet,Delayed Release (Dr/Ec) 81 mg PO DAILY RF: 0 citalopram 20 mg tablet 20 mg PO DAILY RF: 0 levothyroxine [Euthyrox] 50 mcg tablet 50 mcg PO DAILY RF: 0 lisinopril 10 mg tablet 10 mg PO DAILY RF: 0 pioglitazone 30 mg tablet 30 mg PO DAILY RF: 0 Linzess 72 mcg capsule 72 mcg PO DAILY RF: 0 Primary Care Provider: Alfonso Carlson Chi Referrals: Alfonso Carlson Chi, MD [Primary Care Provider] - Disposition Disposition: Acute Care Hospital [facility]
[2021-02-17 21:22] LABS: Absolute Lymphocyte Count 1.39 X10^3/uL (0.83-4.51); Absolute Neutrophil Count 5.5 X10^3/uL (2.0-7.7); Basophil# 0.01 X10^3/uL; Basophil% 0.1 % (0-1); Hematocrit 41.6 % (37-47); Hemoglobin 13.7 g/dL (12.0-15.0); Lymphocyte # 1.39 X10^3/ul (0.83-4.51); Lymphocyte % 19.7 % (19-41); Mean Corp Hgb Conc 32.9 g/dL (32-36); Mean Corpuscular Hgb 28.8 pg (27.0-32.0); Mean Corpuscular Volume 87.6 fL (81-99); Mean Platelet Vol. 10.5 fl (6.2-12.0); Monocyte# 0.09 X10^3/uL; Monocyte% 1.3 % (0-10); NRBC Flagged by Analyzer 0 % (0-5); Neutrophil # 5.53 X10^3/uL (2.7-7.7); Neutrophil % 78.5 % (47-70); Platelet Count 224 K/mm3 (150-450); RBC Distribution Width CV 14.1 % (11.6-14.6); Red Blood Count 4.75 M/mm3 (4.2-5.4); White Blood Count 7.1 K/mm3 (4.4-11.0)
[2021-02-17] MEDS: 0.9% Normal Saline 1,000 ML 150 ML IV (21:41)
[2021-02-17] MEDS: Morphine 4 MG/ML Syringe IV (21:41)
[2021-02-17] MEDS: Ondansetron 4 MG/2 ML Vial IV (21:41)
[2021-02-17 21:45] LABS: AST(SGOT) 22 U/L (15-37); Alanine Aminotransfer ALT/SGPT 28 U/L (13-56); Alkaline Phosphatase 140 U/L (45-117); Anion Gap 10 (5-15); BUN 38 mg/dL (7-18); Bilirubin, Direct 0.11 mg/dL (0.00-0.30); Calcium,Total 8.9 mg/dL (8.5-10.1); Chloride 102 mmol/L (98-107); Creatinine, Serum 1.31 mg/dL (0.55-1.02); EST Glomerular Filtration Rate 42 mL/min (>60); Est Glom Filt Rate - Afr Amer 51 mL/min (>60); Globulin 3.6 g/dL (2.2-4.2); Glucose 542 mg/dL (74-106); Lipase 200 U/L (73-393); Potassium 4.5 mmol/L (3.5-5.1); Protein, Total 6.6 g/dL (6.4-8.2); Sodium Level 134 mmol/L (136-145); Troponin-I HS 7 pg/mL (3.0-54.0)
[2021-02-17 21:56] LABS: D-Dimer Quantitative (DVT/PE) 1.25 FEU/ug/m (0.27-0.49)
--- NOTE | 2021-02-17 21:57 | CT_ITS ---
EXAM: CT ANGIOGRAPHY CHEST WITHOUT AND WITH INTRAVENOUS CONTRAST : 1950 CLINICAL INDICATION: chest pain, elevated d-dimer TECHNIQUE: Helically acquired angiography images were obtained of the chest without and with intravenous contrast. This CT exam was performed using one or more of the following dose reduction techniques: automated exposure control, adjustment of the mA and/or kV according to patient size, and/or use of iterative reconstruction technique. This report was created using [employer] report generation technology. MIP reconstructed images were created and reviewed. CONTRAST: IV 75mL Isovue-370 COMPARISON: None. FINDINGS: PULMONARY ARTERIES: There are low-density filling defects seen within peripheral right lower lobe subsegmental pulmonary arteries compatible with peripheral pulmonary emboli. No large central filling defects are identified. AORTA: Unremarkable. Normal in caliber. No evidence of dissection. GREAT VESSELS OF AORTIC ARCH: Unremarkable. Normal in caliber. No evidence of dissection. LUNGS AND PLEURAL SPACES: Unremarkable. No mass. No consolidation or edema. No pleural effusion or thickening. No pneumothorax. HEART: The right ventricle is normal in size. No pericardial effusion. MEDIASTINUM: Unremarkable. No mediastinal or hilar adenopathy. Esophagus is unremarkable. No hiatal hernia. THYROID: Unremarkable. No thyroid lesions. BONES/JOINTS: Unremarkable. No suspicious lytic or blastic abnormality. CT/CTA Chest W/WO Contrast IMPRESSION: Low-density filling defects seen within peripheral right lower lobe subsegmental pulmonary arteries compatible with peripheral pulmonary emboli. No large central emboli are identified. Individualized dose optimization techniques were used for this CT. at 2333 Reported and signed by: Deven Donnelly MD Electronically Signed: Deven Donnelly MD at 23:31 EST Tel , Service support ,
--- NOTE | 2021-02-17 22:05 | ED.RN ---
MD aware of elevated d-dimer. Cornelius RN at bedside for IV placed by US for CTA of chest.
[2021-02-17] MEDS: Insulin Lispro 100 UNIT/ML INSULN.PEN 12 UNIT SC (22:14)
[2021-02-17] MEDS: Mag Hydrox/Al Hydrox/Simeth 30 ML UDC PO (22:52)
[2021-02-17 23:16] LABS: Bedside Glucose 420 mg/dL (70-110)
--- NOTE | 2021-02-17 23:16 | HP.PCM.HOS_ITS ---
HPI - General General Date of Admission: 02/17/21 Date of Service: 02/17/21 Chief Complaint: Chest pain HPI Narrative The patient is a 71 y/o F w/ PMHx: CKD stage III unclear subtype, Diabetes mellitus type II, HTN, HLD, Allergic rhinitis, OA, Anxiety and Depression, Hypothyroidism who presents to the [facility] ED on 02/17/21 with history of onset chest discomfort starting approximately 6 PM upon awakening from a nap described as sharp, midsternal with no radiation with nausea without emesis with mild dyspnea, intermittent since onset, rated 10 out of 10 in severity at its worse prompting ED evaluation. Patient also reports recent right-sided discomfort to the hip and leg with radiculopathy with chronic sciatica. EMS administered NG w ithout great effect. In the ED patient administered GI cocktail and NG without marked improvement. Work-up in the ED included T 97.4, heart rate 82, BP 140/71, respiratory rate 16, 96% on room air, CBC with WC 7.1, hemoglobin 13.7, platelet 224 without marked shift, D-dimer 1.25, CMP with sodium 134, BUN/creatinine 38/1.31, glucose 542, unremarkable hepatic profile aside alk phos 140, lipase 200, troponin high-sensitivity 7, chest x-ray with no acute cardiopulmonary findings, CTPA pending upon requested evaluation of patient. In addition patient ministered insulin 12 units subcu x1. [facility] Medical History (Updated 02/17/21 @ 23:[address] Karolina King MD) Abscess of right elbow Acute pancreatitis Arthritis Back problem Diabetes Elevated hemoglobin A1c Essential (primary) hypertension Hormone deficiency Hyperlipidemia Mass of skin of right elbow Seasonal allergies Type 2 diabetes mellitus Home Medications metoprolol tartrate 50 mg PO DAILY 03/06/19 [History Last Taken 02/17/21] insulin degludec [Tresiba FlexTouch U-200] 80 unit SUBCUT BID 01/21/21 [History Last Taken 02/17/21] aspirin [Aspirin Low Dose] 81 mg PO DAILY 02/17/21 [History Last Taken 02/17/21] citalopram 20 mg PO DAILY 02/17/21 [History Last Taken 02/17/21] levothyroxine [Euthyrox] 50 mcg PO DAILY 02/17/21 [History Last Taken 02/17/21] linaclotide [Linzess] 72 mcg PO DAILY 02/17/21 [History Last Taken 02/17/21] lisinopril 10 mg PO DAILY 02/17/21 [History Last Taken 02/17/21] pioglitazone 30 mg PO DAILY 02/17/21 [History Last Taken 02/17/21] Allergy/AdvReac Type Severity Reaction Status Date / Time diphenhydramine Allergy Swelling Verified 01/26/21 20:13 [From Benadryl] Family History (Updated 02/17/21 @ 23:[address] Karolina King MD) Unknown Breast cancer Colon cancer Myocardial infarction Hypertension Hyperlipidemia Father Heart disease Hypertension Mother Diabetes Hypertension Kidney disease Liver disease Other Arthritis Surgical History History of Social History household members: spouse Smoking Status: Never smoker alcohol intake: never substance use type: does not use what type of physical activity do you participate in: none ROS ROS Narrative Admission Review of Systems: CONSTITUTIONAL: No weight loss, fever, chills, + weakness or fatigue. HEENT: Eyes: No visual loss, blurred vision, double vision or yellow sclerae. Ears, Nose, Throat: No hearing loss, sneezing, congestion, runny nose or sore throat. SKIN: No rash or itching, lesions, wounds. CARDIOVASCULAR: + chest pain, chest pressure or chest discomfort, palpitations, No edema, orthopnea, syncopal events. RESPIRATORY: + shortness of breath, Nocough or sputum, wheezing, hemoptysis. GASTROINTESTINAL: + Anorexia, nausea, No vomiting or diarrhea, abdominal pain, melena, BRBPR. GENITOURINARY: No dysuria, frequency, urgency or retention. NEUROLOGICAL: No headache, dizziness, syncope, paralysis, ataxia, numbness or tingling in the extremities, focal weakness, change in bowel or bladder control, seizure. MUSCULOSKELETAL: + muscle, back pain, joint pain or stiffness. HEMATOLOGIC: No anemia, bleeding or bruising. LYMPHATICS: No enlarged nodes. No history of splenectomy. PSYCHIATRIC: + history of depression or anxiety. ENDOCRINOLOGIC: No reports of sweating, cold or heat intolerance. No polyuria or polydipsia. ALLERGIES: No history of asthma, hives, eczema or rhinitis. Vital Signs Vital Signs Vital Signs: 02/17/21 20:09 02/17/21 21:01 Temperature 97.4 F L Temperature Source Oral Pulse Rate 82 Respiratory Rate 16 Respiratory Effort Normal Blood Pressure 148/71 H Blood Pressure Mean 96 Pulse Ox 96 Oxygen Delivery Method Room Air Room Air Weight Weight: 144 lb 9.972 oz Body Mass Index (BMI) 26.4 Physical Exam Narrative Physical Examination: General: Awake, alert, oriented x 3 and cooperative, laying in the ED bed, recurrent chest discomfort, grabbing chest, it is reproducible with palpation of the anterior chest region Skin: Normal color, normal turgor, no icterus, no cyanosis. HEENT: AT/NC, EOMI, PERRLA, mildly dry MM, no carotid bruits or JVD noted. Lungs: Mild diminished, greater bases, appropriate effort, no rales, ronchi or wheezing. Heart: Regular rate and rhythm; no gallop, rub audible. Abdomen: Soft, overweight, NTTP, ND, mildly distant hyperactive BS, no HSM. Extremities: No cyanosis, clubbing, or edema. Neurological: Patient awake, alert, oriented as noted, cognitive function intact; pupils equally reactive to light and accommodation, cranial nerves II- XII grossly normal, moving all 4 extremities, no focal deficits, strength moderately global decrease secondary to acute ongoing complaints of discomfort. Psychiatric: Affect appears uncomfortable, no acute evidence of depressive or anxiety feelings. Results Lab / Micro Data Result Diagrams: 02/17/21 21:10 02/17/21 21:10 Labs: Laboratory Results - last 24 hr 02/17/21 21:10: WBC 7.1, RBC 4.75, Hgb 13.7, Hct 41.6, MCV 87.6, MCH 28.8, MCHC 32.9, RDW Std Deviation 45.0 H, RDW Coeff of Melvina 14.1, Plt Count 224, MPV 10.5, Immature Gran % (Auto) 0.400, Neut % (Auto) 78.5 H, Lymph % (Auto) 19.7, [place] % (Auto) 1.3, Eos % (Auto) 0.0, Baso % (Auto) 0.1, Absolute Neuts (auto) 5.5, Absolute Lymphs (auto) 1.39, Nucleated RBC % 0 02/17/21 21:10: D-Dimer Quant (PE/DVT) 1.25 H* 02/17/21 21:10: Sodium 134 L, Potassium 4.5, Chloride 102, Carbon Dioxide 22.0, Anion Gap 10, BUN 38 H, Creatinine 1.31 H, Estim Creat Clear Calc 30.70, Est GFR (MDRD) Af Amer 51 L, Est GFR (MDRD) Non-Af 42 L, BUN/Creatinine Ratio 29.0 H, Glucose 542 H*, Calcium 8.9, Total Bilirubin 0.40, Direct Bilirubin 0.11, AST 22, ALT 28, Alkaline Phosphatase 140 H, Troponin I High Sens 7, Total Protein 6.6, Albumin 3.0 L, Globulin 3.6, Lipase 200 02/17/21 23:08: POC Glucose 420 H Radiology Impression Chest X-Ray 02/17/21 20:43 IMPRESSION: No acute findings in the chest. Electronically Signed: Priyank Gallagher MD at 22:32 EST , Service support , Assessment & Plan Assessment/Plan (1) Chest pain: QUALIFIERS: Chest pain type: unspecified Qualified Code(s): R07.9 - Chest pain, unspecified PLAN: The patient is a 71 y/o F w/ PMHx: CKD stage III unclear subtype, Diabetes mellitus type II, HTN, HLD, Allergic rhinitis, OA, Anxiety and Depression, Hypothyroidism who presents to the [facility] ED on 02/17/21 with history of onset chest discomfort starting approximately 6 PM upon awakening from a nap described as sharp, midsternal with no radiation with nausea without emesis with mild dyspnea, intermittent since onset, rated 10 out of 10 in severity at its worse. 1. Chest Pain, atypical: Chest pain is reproducible on evaluation however given patient history there is some concern, EKG in ED SR without acute evidence of ischemia, CXR w/ no acute cardiopulmonary finding, initial trop normal x1, CTPA pending upon evaluation patient. To be cautious, will admit to PCU, place on a monitored bed to assure no acute myocardial infarction with serial cardiac enzymes and EKGs. If CTPA with no evidence of acute pulmonary emboli as well as repeat cardiac enzymes and EKGs remain unremarkable will pursue a.m. cardiac stress testing. FLP in AM. Magnesium level requested. Patient has several ED visits, there is some concern about potential seeking behavior. ASA, chela SAMANO. 2. Right hip/groin pain with radiculopathy: Suspect sciatica, will obtain plain film to be cautious, initiate gabapentin, continue to monitor, may consider therapy addition if necessary. 3. Diabetes mellitus type II with hyperglycemia: Patient with recent steroid injections likely resulting in hyperglycemia, will obtain A1c to be cautious, holding oral regimen, continue home insulin regimen, ADA diet, accu checks w/ ISS. 4. Chronic Kidney Disease Stage III, unclear subtype: Admission BUN/Cr 38/1.31, baseline renal function similar, repeat BMP in AM. 5. Hypertension: Continue home regimen including metoprolol, lisinopril with hold parameters as needed, PRN hydralazine. 6. Hyperlipidemia: Not on any regimen, FLP in a.m. 7. Anxiety and depression: We will continue patient on citalopram regimen. 8. IBS: We will continue patient home Linzess regimen. 8. Hypothyroidism: Continue home synthroid regimen. 9. DVT prophylaxis: SCDs, Lovenox. 10. 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 Discussed CODE status at length including difference between FULL code, DNR-CCA and DNR-CC status. Following discussions about the differences in these status, requested Full Code status. Advanced Care Planning Face to Face Time: 16 minutes. Charges/Coding Visit Charges OBSV E&M: 67243 Initial observation care L3 Procedures Hospitalists Procedures: 74952 Advncd Care Plan 30 Min
[2021-02-17 23:29] VITALS: BP 145/89; PULSE 76; RESP 20; TEMP 36.3; O2SAT 98
--- NOTE | 2021-02-17 23:55 | EKG12_ITS ---
Test Reason : CP ADMISSION Blood Pressure : / mmHG Vent. Rate : 065 BPM Atrial Rate : 065 BPM P-R Int : 128 ms QRS Dur : 080 ms QT Int : 432 ms P-R-T Axes : 021 -24 051 degrees QTc Int : 449 ms Normal sinus rhythm Normal ECG Confirmed by ZION KLEIN, MAICOL ([id number]), editorial manager CHECO VELASCO ([id number]) on 02/18/2021 1:19:43 PM Referred By: ROVERTO Confirmed By:MAICOL DONOVAN MD
[2021-02-17 23:56] VITALS: BP 168/74; PULSE 72; RESP 18; TEMP 36.7; O2SAT 95; BMI 53.9
[2021-02-18] VITALS (11 sets, daily range): BP systolic 100–168; BP diastolic 52–99; PULSE 52–80; RESP 16–18; TEMP 36.5–36.7; O2SAT 93–97; BMI 24.5
--- NOTE | 2021-02-18 | RAD_ITS ---
EXAM: XR RIGHT HIP WITH PELVIS WHEN PERFORMED, 2 OR 3 VIEWS : 1950 CLINICAL INDICATION: Right hip pain TECHNIQUE: Two or three views of the right hip with pelvis when performed. This report was created using [email or web address] report generation technology. COMPARISON: None. FINDINGS: BONES/JOINTS: Unremarkable. No displaced fracture. No destructive or sclerotic lesions. Note that overlapping bowel shadows may however obscure fine detail. Sacroiliac joint is unremarkable. No widening of the pubic symphisis. The articular structures are unremarkable. SOFT TISSUES: Unremarkable. No soft tissue swelling or gas. RAD/HIP, UNI W/ Pelvis 2-3 Views IMPRESSION: No evidence of displaced pelvic or hip fracture. at 0233 Reported and signed by: Deven Donnelly MD Electronically Signed: Deven Donnelly MD at 2:32 EST Tel , Service support ,
[2021-02-18 00:06] LABS: Magnesium 2.3 mg/dL (1.6-2.6)
--- NOTE | 2021-02-18 00:25 | ECHOD_ITS ---
Reason For Study: ACUTE PE Procedure This was a 2D Doppler, Color Flow transthoracic echocardiogram. The study was technically difficult. Exam performed in department. Left Ventricle Normal LV size. Left ventricular systolic function is normal. The estimated ejection fraction is 656 %. Diastolic function is indeterminate. No regional wall motion abnormalities noted. Right Ventricle Normal RV size. Normal systolic function. Atria The left atrium is mildly enlarged. Normal right atrium. No doppler evidence for ASD. Mitral Valve There is no mitral annular calcification. Normal mitral valve. Trivial mitral valve insufficiency. Tricuspid Valve Normal tricuspid valve. Mild tricuspid valve insufficiency. Right ventricular systolic pressure estimated to be 31 mmHg. Aortic Valve Trisinus/trileaflet aortic valve. Mild focal aortic valve calcification. Pulmonic Valve The pulmonic valve is not well visualized. Great Vessels Normal sized aortic root. Pericardium/Pleural No pericardial effusion. MMode/2D Measurements & Calculations LVIDd: 4.1 cm IVSd: 1.2 cm Ao root diam: 2.8 cm LVIDs: 2.8 cm LVPWd: 1.1 cm RVDd: 2.8 cm FS: 31.5 % LAV(MOD-bp): 53.2 ml LA A4 area: 18.2 cm2 LA dimension(2D): 3.5 cm LAV(MOD-bp) Indexed: 33.1 ml/m2 LAV(MOD-sp2): 53.2 ml LAV(MOD-sp4): 53.9 ml RA A4 area: 11.2 cm2 Time Measurements MV dec time: 0.19 sec Doppler Measurements & Calculations MV E max ashish: 79.5 cm/sec Lat Peak E' Ashish: 6.5 cm/sec Med Peak E' Ashish: 5.0 cm/sec MV A max ashish: 105.6 cm/sec E/E' lat: 12.2 E/E' med: 16.0 MV E/A: 0.75 Ao V2 max: 124.5 cm/sec AI max ashish: 330.6 cm/sec LV V1 max: 89.0 cm/sec Ao max P.2 mmHg AI max P.7 mmHg LV V1 max P.2 mmHg AI dec slope: 122.7 cm/sec2 AI P1/2t: 789.3 msec PA V2 max: 79.7 cm/sec TR max ashish: 266.4 cm/sec TR max P.4 mmHg ECHO/Echo Complete Interpretation Summary The study was technically difficult. Left ventricular systolic function is normal. The estimated ejection fraction is 656 %. The left atrium is mildly enlarged. Trivial mitral valve insufficiency. Mild tricuspid valve insufficiency. Mild focal aortic valve calcification. Right ventricular systolic pressure estimated to be 31 mmHg. Diastolic function is indeterminate. Ordering Physician: Karolina King Referring Physician: Alfonso Carlson Chi Performed By: Rolanda Scott, NANETTE, RVT
--- NOTE | 2021-02-18 00:38 | PCS.PANDOC ---
PANDEMIC DOCUMENTATION INITIATED: Date: 11/17/2020 Time: 190
[2021-02-18] MEDS: Morphine 4 MG/ML Syringe IV (01:00)
[2021-02-18] MEDS: 0.9% Normal Saline 1,000 ML 100 ML IV (01:10)
[2021-02-18] MEDS: HEPARIN/D5w 25,000 UNITS 25,000 UNITS/250 ML IV.SOLN. 17 UNITS IV (01:14)
[2021-02-18] MEDS: oxyCODONE 5 MG Tablet PO ×2 (01:37→06:42)
[2021-02-18] MEDS: Heparin Injection (Vial) 5,000 UNIT/ML VIAL 4000 UNIT IV (01:41)
[2021-02-18] MEDS: HEPARIN/D5w 25,000 UNITS 25,000 UNITS/250 ML IV.SOLN. 8 UNITS IV (01:41)
[2021-02-18 01:59] LABS: Troponin-I HS 9 pg/mL (3.0-54.0)
[2021-02-18 02:12] LABS: International Normalized Ratio 0.8; Prothrombin Time (Protime)PT. 10.9 SECONDS (11.7-14.9)
[2021-02-18 03:52] LABS: Troponin-I HS 13 pg/mL (3.0-54.0)
[2021-02-18] MEDS: Levothyroxine 50 MCG Tablet PO (06:42)
[2021-02-18] MEDS: Insulin Lispro 100 UNIT/ML INSULN.PEN SC ×2 (06:42→10:41)
[2021-02-18 06:51] LABS: Bedside Glucose 323 mg/dL (70-110)
[2021-02-18 07:17] LABS: Absolute Lymphocyte Count 1.95 X10^3/uL (0.83-4.51); Absolute Neutrophil Count 7.6 X10^3/uL (2.0-7.7); Basophil# 0.01 X10^3/uL; Basophil% 0.1 % (0-1); Hematocrit 40.2 % (37-47); Hemoglobin 13.5 g/dL (12.0-15.0); Lymphocyte # 1.95 X10^3/ul (0.83-4.51); Lymphocyte % 19.1 % (19-41); Mean Corp Hgb Conc 33.6 g/dL (32-36); Mean Corpuscular Hgb 29.1 pg (27.0-32.0); Mean Corpuscular Volume 86.6 fL (81-99); Mean Platelet Vol. 10.5 fl (6.2-12.0); Monocyte# 0.62 X10^3/uL; Monocyte% 6.1 % (0-10); NRBC Flagged by Analyzer 0 % (0-5); Neutrophil # 7.57 X10^3/uL (2.7-7.7); Neutrophil % 74.2 % (47-70); Platelet Count 220 K/mm3 (150-450); RBC Distribution Width CV 14.3 % (11.6-14.6); RBC Distribution Width SD 44.9 fl (35.1-43.9); Red Blood Count 4.64 M/mm3 (4.2-5.4); White Blood Count 10.2 K/mm3 (4.4-11.0)
[2021-02-18 07:42] LABS: ALB/GLOB Ratio 0.8 RATIO (0.9-2.4); AST(SGOT) 17 U/L (15-37); Alanine Aminotransfer ALT/SGPT 26 U/L (13-56); Alkaline Phosphatase 82 U/L (45-117); BUN 33 mg/dL (7-18); BUN/Creat Ratio 30.3 RATIO (10-20); Calcium,Total 8.6 mg/dL (8.5-10.1); Cholesterol 304 mg/dL (200); Creatinine, Serum 1.09 mg/dL (0.55-1.02); EST Glomerular Filtration Rate 52 mL/min (>60); Est Glom Filt Rate - Afr Amer 64 mL/min (>60); Globulin 3.7 g/dL (2.2-4.2); Glucose 379 mg/dL (74-106); Protein, Total 6.7 g/dL (6.4-8.2); Sodium Level 132 mmol/L (136-145); Triglycerides 174 mg/dL
[2021-02-18 07:43] LABS: Anion Gap 7 (5-15); Chloride 100 mmol/L (98-107); High Density Lipoprotein 64 mg/dL; Potassium 4.1 mmol/L (3.5-5.1); Very Low Density Lipoprotein 35 mg/dL (5-40)
[2021-02-18 08:03] LABS: Hemoglobin A1c 9.9 % (3.8-5.6)
[2021-02-18 09:15] LABS: Partial Thromboplast Time > 250.0 Seconds (24.1-36.2)
[2021-02-18] MEDS: Aspirin E.C. 81 MG Tablet PO (10:25)
[2021-02-18] MEDS: Gabapentin 100 MG Capsule PO ×2 (10:25→12:47)
[2021-02-18] MEDS: Famotidine 20 MG Tablet PO (10:26)
[2021-02-18] MEDS: Citalopram 20 MG Tablet PO (10:26)
[2021-02-18] MEDS: Metoprolol Tartrate 50 MG Tablet PO (10:27)
[2021-02-18 10:56] LABS: Bedside Glucose 210 mg/dL (70-110)
[2021-02-18] MEDS: APIXABAN 5 MG TABLET 10 MG PO (12:45)
--- NOTE | 2021-02-18 12:53 | PCM.DC ---
Discharge Instructions Diet Discharge Diet: Low fat / Low cholesterol and Carb Control Diet Activity Discharge Activity: Return to Normal Activity Dressing / Incision Call your doctor if you observe: Fever of 101 or Higher, Shortness of breath, Dizziness, Fainting spells, Swelling in the ankles, Chest pain and Increased palpitations (irregular heartbeat) Follow Up Care Test Results: Test results from this visit will be discussed in further detail at your follow-up appointment, if applicable. Discharge Plan Admission Admit Date/Time: 02/17/21 23:24 Attending Provider: Dean Cleaning Primary Care Provider: Alfonso Carlson Chi Discharge Orders/Prescriptions Prescriptions: New Eliquis 5 mg Tablet 10 mg PO BID Qty: 60 RF: 1 Continued metoprolol tartrate 50 MG tablet 50 mg PO DAILY RF: 0 Tresiba FlexTouch U-200 200 unit/mL (3 mL) insulin pen 80 unit SUBCUT BID RF: 0 aspirin [Aspirin Low Dose] 81 mg Tablet,Delayed Release (Dr/Ec) 81 mg PO DAILY RF: 0 citalopram 20 mg tablet 20 mg PO DAILY RF: 0 levothyroxine [Euthyrox] 50 mcg tablet 50 mcg PO DAILY RF: 0 lisinopril 10 mg tablet 10 mg PO DAILY RF: 0 pioglitazone 30 mg tablet 30 mg PO DAILY RF: 0 Linzess 72 mcg capsule 72 mcg PO DAILY RF: 0 Referrals / Follow Up: Alfonso aCrlson Chi, MD [Primary Care Provider] - Within 1 Week Flavia Hsieh MD [STAFF PHYSICIAN] - Within 3 Months Disposition Disposition (needs filled in before D/C Order can be placed): Home, Self Care
--- NOTE | 2021-02-18 13:12 | DS.PCM_ITS ---
Providers Date of Admission: 02/17/21 Primary Care Physician: Dr. Alfonso Carlson MD Reason For Visit: CHEST PAIN Diagnosis Discharge Diagnosis (1) Chest pain: Status: Acute Code(s): R07.9 - Chest pain, unspecified Qualifiers: Chest pain type: unspecified Qualified Code(s): R07.9 - Chest pain, unspecified Medications at Discharge Home Medications metoprolol tartrate 50 mg PO DAILY 03/06/19 Tresiba FlexTouch U-200 80 unit SUBCUT BID 01/21/21 Linzess 72 mcg PO DAILY 02/17/21 aspirin [Aspirin Low Dose] 81 mg PO DAILY 02/17/21 citalopram 20 mg PO DAILY 02/17/21 levothyroxine [Euthyrox] 50 mcg PO DAILY 02/17/21 lisinopril 10 mg PO DAILY 02/17/21 pioglitazone 30 mg PO DAILY 02/17/21 apixaban [Eliquis] 10 mg PO BID #60 tab 02/18/21 Hospital Course Operations None Procedures 2-D Echocardiogram Summary of Care Provided Minutes Spent on Discharge: 42 Hospital Course: Per HPI: The patient is a 71 y/o F w/ PMHx: CKD stage III unclear subtype, Diabetes mellitus type II, HTN, HLD, Allergic rhinitis, OA, Anxiety and Depression, Hypothyroidism who presents to the [facility] ED on 02/17/21 with history of onset chest discomfort starting approximately 6 PM upon awakening from a nap described as sharp, midsternal with no radiation with nausea without emesis with mild dyspnea, intermittent since onset, rated 10 out of 10 in severity at its worse prompting ED evaluation. Patient also reports recent right-sided discomfort to the hip and leg with radiculopathy with chronic sciatica. EMS administered NG without great effect. In the ED patient administered GI cocktail and NG without marked improvement. Work-up in the ED included T 97.4, heart rate 82, BP 140/71, respiratory rate 16, 96% on room air, CBC with WC 7.1, hemoglobin 13.7, platelet 224 without marked shift, D-dimer 1.25, CMP with sodium 134, BUN/creatinine 38/1.31, glucose 542, unremarkable hepatic profile aside alk phos 140, lipase 200, troponin high-sensitivity 7, chest x-ray with no acute cardiopulmonary findings, CTPA pending upon requested evaluation of patient. In addition patient ministered insulin 12 units subcu x1. Hospital Course: 1. Atypical chest pain with right pulmonary [id number]-old female with a history of diabetes presents to the hospital with atypical chest pain. EKG was unremarkable and troponins were normal. She did have a CT of the chest which did show right peripheral pulmonary embolisms. She states that she is never been on anticoagulation however was told that back in January of last year when she was sick with Covid she had developed blood clots in her legs. She was started on heparin drip and this was transitioned to p.o. Eliquis. The likely mechanism of her PEs are likely from her DVTs which are likely due to the Covid. We will have her follow-up with hematology as an outpatient in a few months. Echo was unremarkable did not show any significant right heart strain. And her chest pain has resolved and she is not hypoxic. I discussed with her the plan f or discharge today and she expressed understanding of the risk and benefits of going home and would like to go home today. 2. Type 2 diabetes with hyperglycemia, chronic kidney disease stage III with unclear subtype, hypertension, hyperlipidemia, anxiety, depression, IBS, hypothyroidism are all chronic medical conditions which complicate her care. Her home medications were continued where appropriate. I do recommend close outpatient follow-up with her PCP and possible endocrinology as her A1c is still elevated at 9.9 and her blood sugars were over 500 on admission. Proper diet was discussed but should be reinforced as an outpatient. Physical Exam Const alert, oriented x3 and no apparent distress General Appearance: cooperative HEENT normocephalic and moist oral mucous membranes Eyes PERRL, EOMs intact bilaterally and conjunctivae normal Neck supple and no JVD Resp normal respiratory effort, no retractions, no use of accessory muscles and clear to auscultation bilaterally Auscultation: Negative for crackles, rales, rhonchi or wheezes Cardio regular rate, regular rhythm, S1 normal heart sound, S2 normal heart sound and no murmurs GI soft to palpation, non-tender and non-distended; Negative for hepatosplenomegaly Extremity no clubbing, cyanosis or edema Skin no rashes or lesions noted Neuro no focal motor deficits and no sensory deficits noted Psych affect normal Appearance: appropriate Weight / BMI Weight Weight: 133 lb 13.129 oz Body Mass Index (BMI) 24.5 ABG / Lab / Microbiology Data Result Diagrams: 02/18/21 07:08 02/18/21 07:08 Laboratory: Laboratory Results - last 24 hr 02/17/21 21:10: WBC 7.1, RBC 4.75, Hgb 13.7, Hct 41.6, MCV 87.6, MCH 28.8, MCHC 32.9, RDW Std Deviation 45.0 H, RDW Coeff of Melvina 14.1, Plt Count 224, MPV 10.5, Immature Gran % (Auto) 0.400, Neut % (Auto) 78.5 H, Lymph % (Auto) 19.7, Hickman % (Auto) 1.3, Eos % (Auto) 0.0, Baso % (Auto) 0.1, Absolute Neuts (auto) 5.5, Absolute Lymphs (auto) 1.39, Nucleated RBC % 0 02/17/21 21:10: D-Dimer Quant (PE/DVT) 1.25 H* 02/17/21 21:10: Sodium 134 L, Potassium 4.5, Chloride 102, Carbon Dioxide 22.0, Anion Gap 10, BUN 38 H, Creatinine 1.31 H, Estim Creat Clear Calc 30.70, Est GFR (MDRD) Af Amer 51 L, Est GFR (MDRD) Non-Af 42 L, BUN/Creatinine Ratio 29.0 H, Glucose 542 H*, Calcium 8.9, Total Bilirubin 0.40, Direct Bilirubin 0.11, AST 22, ALT 28, Alkaline Phosphatase 140 H, Troponin I High Sens 7, Total Protein 6.6, Albumin 3.0 L, Globulin 3.6, Lipase 200 02/17/21 21:10: Magnesium 2.3 02/17/21 23:08: POC Glucose 420 H 02/18/21 01:00: Troponin I High Sens 9 02/18/21 01:00: PT 10.9 L, INR 0.8, APTT 52.0 H 02/18/21 03:00: Troponin I High Sens 13 02/18/21 06:41: POC Glucose 323 H 02/18/21 07:08: WBC 10.2, RBC 4.64, Hgb 13.5, Hct 40.2, MCV 86.6, MCH 29.1, MCHC 33.6, RDW Std Deviation 44.9 H, RDW Coeff of Melvina 14.3, Plt Count 220, MPV 10.5, Immature Gran % (Auto) 0.500, Neut % (Auto) 74.2 H, Lymph % (Auto) 19.1, Hickman % (Auto) 6.1, Eos % (Auto) 0.0, Baso % (Auto) 0.1, Absolute Neuts (auto) 7.6, Absolute Lymphs (auto) 1.95, Nucleated RBC % 0 02/18/21 07:08: Sodium 132 L, Potassium 4.1, Chloride 100, Carbon Dioxide 25.0, Anion Gap 7, BUN 33 H, Creatinine 1.09 H, Estim Creat Clear Calc 36.90, Est GFR (MDRD) Af Amer 64, Est GFR (MDRD) Non-Af 52 L, BUN/Creatinine Ratio 30.3 H, Glucose 379 H, Calcium 8.6, Total Bilirubin 0.30, AST 17, ALT 26, Alkaline Phosphatase 82, Total Protein 6.7, Albumin 3.0 L, Globulin 3.7, Albumin/Globulin Ratio 0.8 L, Triglycerides 174, Cholesterol 304 H, LDL Cholesterol 205 H, VLDL Cholesterol 35, HDL Cholesterol 64 02/18/21 07:08: Hemoglobin A1c 9.9 H 02/18/21 07:08: APTT > 250.0 H* 02/18/21 10:33: POC Glucose 210 H Radiography Diagnostic Testing: Radiology Impression Chest X-Ray 02/17/21 20:43 IMPRESSION: No acute findings in the chest. Electronically Signed: Priyank Gallagher MD at 22:32 EST , Service support , Chest CTA 02/17/21 21:57 IMPRESSION: Low-density filling defects seen within peripheral right lower lobe subsegmental pulmonary arteries compatible with peripheral pulmonary emboli. No large central emboli are identified. Individualized dose optimization techniques were used for this CT. at 2333 Reported and signed by: Deven Donnelly MD Electronically Signed: Deven Donnelly MD at 23:31 EST Tel , Service support , Hip/Pelvis X-Ray 02/18/21 00:00 IMPRESSION: No evidence of displaced pelvic or hip fracture. at 0233 Reported and signed by: Deven Donnelly MD Electronically Signed: Deven Donnelly MD at 2:32 EST Tel , Service support , Echocardiogram 02/18/21 00:25 Interpretation Summary The study was technically difficult. Left ventricular systolic function is normal. The estimated ejection fraction is 656 %. The left atrium is mildly enlarged. Trivial mitral valve insufficiency. Mild tricuspid valve insufficiency. Mild focal aortic valve calcification. Right ventricular systolic pressure estimated to be 31 mmHg. Diastolic function is indeterminate. Ordering Physician: Karolina King Referring Physician: Alfonso Carlson Chi Performed By: Rolanda Scott, NANETTE, RVT D/C Instructions Discharge Diet: Low fat / Low cholesterol and Carb Control Diet Call your doctor if you observe: Fever of 101 or Higher, Shortness of breath, Dizziness, Fainting spells, Swelling in the ankles, Chest pain and Increased palpitations (irregular heartbeat) Meaningful Use Info Meaningful Use Diagnoses (Choose all that apply): None applicable Discharge Plan Admission Admit Date/Time: 02/17/21 23:24 Attending Provider: Dean Cleaning Primary Care Provider: Alfonso Carlson Chi Discharge Orders/Prescriptions Prescriptions: New Eliquis 5 mg Tablet 10 mg PO BID Qty: 60 RF: 1 Continued metoprolol tartrate 50 MG tablet 50 mg PO DAILY RF: 0 Tresiba FlexTouch U-200 200 unit/mL (3 mL) insulin pen 80 unit SUBCUT BID RF: 0 aspirin [Aspirin Low Dose] 81 mg Tablet,Delayed Release (Dr/Ec) 81 mg PO DAILY RF: 0 citalopram 20 mg tablet 20 mg PO DAILY RF: 0 levothyroxine [Euthyrox] 50 mcg tablet 50 mcg PO DAILY RF: 0 lisinopril 10 mg tablet 10 mg PO DAILY RF: 0 pioglitazone 30 mg tablet 30 mg PO DAILY RF: 0 Linzess 72 mcg capsule 72 mcg PO DAILY RF: 0 Referrals / Follow Up: Flavia Hsieh MD [STAFF PHYSICIAN] - Within 3 Months Alfonso Carlson Chi, MD [Primary Care Provider] - Within 1 Week Disposition Disposition (needs filled in before D/C Order can be placed): Home, Self Care Charges/Coding Visit Charges OBSV E&M: 83353 Observation care discharge
--- NOTE | 2021-02-18 13:34 | CASEMGMT ---
Addendum entered by Annalisa Kelly 02/18/21 13:59: Per Zena RN, pt does not qualify for home oxygen. Pt ready for discharge. Gerda ADEN CM Original Note: Pt to be sent home on Eliquis and med e-scribed to [facility] pharmacy. Per [facility] pharmacy, pt's co-pay is $26 and she has previously used a coupon card. This MARKIE BURDEN is awaiting home oxygen testing prior to pt discharge. Gerda ADEN CM
--- NOTE | 2021-02-18 14:17 | PHA.DC.MR ---
Pharmacy Service has performed discharge medication reconciliation for this patient. The patient's discharge medication list was reviewed for discrepancies and discrepancies were resolved. Home Medications metoprolol tartrate 50 mg PO DAILY 03/06/19 Tresiba FlexTouch U-200 80 unit SUBCUT BID 01/21/21 Linzess 72 mcg PO DAILY 02/17/21 aspirin [Aspirin Low Dose] 81 mg PO DAILY 02/17/21 citalopram 20 mg PO DAILY 02/17/21 levothyroxine [Euthyrox] 50 mcg PO DAILY 02/17/21 lisinopril 10 mg PO DAILY 02/17/21 pioglitazone 30 mg PO DAILY 02/17/21 apixaban [Eliquis] 10 mg PO BID #60 tab 02/18/21
== END 2021-02-18 12:59 | disposition home or self-care (01) ==
LOC: ED 23:16 → PCU 23:43
PROVIDERS: Admitting Provider Family Medicine; Emergency Provider Emergency Medicine; PCP Family Medicine Geriatric Medicine; Visit Provider Family Medicine
DX: R78.9 Finding of unspecified substance, not normally found in blood (principal); E78.5 Hyperlipidemia, unspecified; M19.90 Unspecified osteoarthritis, unspecified site; E11.65 Type 2 diabetes mellitus with hyperglycemia; I12.9 Hypertensive chronic kidney disease with stage 1 through stage 4 chronic kidney disease, or unspecified chronic kidney disease; E11.22 Type 2 diabetes mellitus with diabetic chronic kidney disease; F41.9 Anxiety disorder, unspecified; N18.31 Chronic kidney disease, stage 3a; E03.9 Hypothyroidism, unspecified; F32.A Depression, unspecified; K58.9 Irritable bowel syndrome, unspecified; Z79.890 Hormone replacement therapy; Z79.82 Long term (current) use of aspirin; Z79.4 Long term (current) use of insulin; Z79.899 Other long term (current) drug therapy
CPT/HCPCS: 36415; 71045; 71275; 72100; 73502; 80048; 80053; 80061; 80076; 82962; 83036; 83690; 83735; 84484; 85025; 85379; 85610; 85730; 93005; 93306; 96361; 96365; 96366; 96375; 96376; 97802; 99218; 99251; 99285; J7030; Q9967; A4216; G0378; G0463; J2405

== ENCOUNTER 2021-02-20 22:15 | Emergency (ER) | payer MEDICARE, SELFPAY ==
[2021-02-20 22:15] VITALS: BP 153/79; PULSE 80; RESP 17; TEMP 36; O2SAT 99; BMI 23.8
--- NOTE | 2021-02-20 22:35 | EKG12_ITS ---
Test Reason : CP Blood Pressure : / mmHG Vent. Rate : 081 BPM Atrial Rate : 081 BPM P-R Int : 124 ms QRS Dur : 076 ms QT Int : 372 ms P-R-T Axes : 037 -31 056 degrees QTc Int : 432 ms Normal sinus rhythm Left axis deviation Abnormal ECG Confirmed by BETZY KLEIN, CATHRYN ([id number]), communications editor CHECO VELASCO ([id number]) on 02/23/2021 1:20:24 PM Referred By: CLAUDETTE Confirmed By:CATHRYN BO MD
--- NOTE | 2021-02-20 22:35 | CT_ITS ---
EXAM: CT ANGIOGRAPHY CHEST WITHOUT AND WITH INTRAVENOUS CONTRAST CLINICAL INDICATION: chest pain with PMHX of PE TECHNIQUE: Helically acquired angiography images were obtained of the chest without and with intravenous contrast. This CT exam was performed using one or more of the following dose reduction techniques: automated exposure control, adjustment of the mA and/or kV according to patient size, and/or use of iterative reconstruction technique. This report was created using [employer] report generation technology. MIP reconstructed images were created and reviewed. CONTRAST: IV 75mL [id number]-370 COMPARISON: None. FINDINGS: PULMONARY ARTERIES: Unremarkable. Normal in caliber. No evidence of pulmonary embolism. AORTA: Unremarkable. Normal in caliber. No evidence of dissection. GREAT VESSELS OF AORTIC ARCH: Unremarkable. Normal in caliber. No evidence of dissection. LUNGS AND PLEURAL SPACES: Unremarkable. No mass. No consolidation or edema. No pleural effusion or thickening. No pneumothorax. HEART: Unremarkable. Heart size is normal. No pericardial effusion. No signs of right heart strain, ratio of right ventricle to left ventricle measures less than 1. MEDIASTINUM: Unremarkable. No mediastinal or hilar adenopathy. Esophagus is unremarkable. No hiatal hernia. THYROID: Unremarkable. No thyroid lesions. BONES/JOINTS: Unremarkable. No suspicious lytic or blastic abnormality. CT/CTA Chest W/WO Contrast IMPRESSION: Negative CTA chest. Electronically Signed: Maria Luz Decker MD at 23:42 EST Tel , Service support ,
--- NOTE | 2021-02-20 22:43 | EDS_ITS ---
HPI History of Present Illness Chief Complaint: Chest Pain Narrative Narrative: Patient is a 71-year-old female who states she was seen in the hospital on Tuesday secondary to chest pain. At that time she was diagnosed with a blood clot. She states that she was started on Eliquis and has been taking them as directed. She states she was given pain medication in ER and the pain resolved. She states however after returning home she has had constant midsternal chest pain for the past 48 hours. She states it is not improving with her Eliquis or qirm-aus-nbyiato medications and secondary to this comes in for evaluation. [facility] Medical History (Updated 02/21/21 @ 00:[address] Johnny Fitzpatrick DO) Abscess of right elbow Acute pancreatitis Arthritis Back problem Diabetes Elevated hemoglobin A1c Essential (primary) hypertension Hormone deficiency Hyperlipidemia Mass of skin of right elbow Seasonal allergies Type 2 diabetes mellitus Home Medications metoprolol tartrate 50 mg PO DAILY 03/06/19 [History Last Taken 02/17/21] Tresiba FlexTouch U-200 80 unit SUBCUT BID 01/21/21 [History Last Taken 02/17/21] Linzess 72 mcg PO DAILY 02/17/21 [History Last Taken 02/17/21] aspirin [Aspirin Low Dose] 81 mg PO DAILY 02/17/21 [History Last Taken 02/17/21] citalopram 20 mg PO DAILY 02/17/21 [History Last Taken 02/17/21] levothyroxine [Euthyrox] 50 mcg PO DAILY 02/17/21 [History Last Taken 02/17/21] lisinopril 10 mg PO DAILY 02/17/21 [History Last Taken 02/17/21] pioglitazone 30 mg PO DAILY 02/17/21 [History Last Taken 02/17/21] apixaban [Eliquis] 10 mg PO BID #60 tab 02/18/21 [Rx Last Taken Unknown] oxycodone-acetaminophen [Percocet] 1 tab PO Q6H PRN 3 Days #12 tab 02/21/21 [Rx Last Taken Unknown] Allergy/AdvReac Type Severity Reaction Status Date / Time diphenhydramine Allergy Swelling Verified 01/26/21 20:13 [From Gabi] Family History (Updated 02/17/21 @ 23:[address] Karolina King MD) Unknown Breast cancer Colon cancer Myocardial infarction Hypertension Hyperlipidemia Father Heart disease Hypertension Mother Diabetes Hypertension Kidney disease Liver disease Other Arthritis Surgical History History of Social History household members: spouse Smoking Status: Never smoker alcohol intake: never substance use type: does not use what type of physical activity do you participate in: none ROS ROS ED Constitutional Constitutional ED: Denies chills or fever(s) ENT ENT ED: Denies sore throat Cardiovascular Cardiovascular: Reports chest pain Respiratory/Chest Respiratory/Chest: Denies cough or dyspnea Gastrointestinal Gastrointestinal: Denies abdominal pain, diarrhea, nausea or vomiting Genitourinary Genitourinary ED: Denies dysuria Musculoskeletal Musculoskeletal: Denies myalgias Integumentary Denies rash Neurologic Neurologic: Denies headache(s) Hematologic/Lymphatic Hematologic/Lymphatic: Reports easy bleeding and easy bruising EXAM Physical Exam Const Vital Signs: 02/20/21 22:15 02/20/21 23:03 Temperature 96.8 F L Temperature Source Temporal Pulse Rate 80 Respiratory Rate 17 Respiratory Effort Normal Non-Labored Respiratory Pattern Normal Blood Pressure 153/79 H Blood Pressure Mean 103 Pulse Ox 99 Oxygen Delivery Method Room Air Positive well nourished and well developed General Appearance ED: well developed HEENT Reports moist mucous membranes Eyes PERRL and EOMs intact bilaterally Neck supple Chest Wall Chest Narrative: No bony deformity or crepitance of the chest wall but there is midline pain with palpation Resp normal respiratory effort and clear to auscultation bilaterally Cardio regular rate and regular rhythm Rate: other Other Details: Plus 2 out of 4 bilaterally are equal and symmetric GI normal to inspection, nondistended, normoactive bowel sounds, non-tender, non-distended and no masses GI Narrative: No voluntary guarding no rigidity no pulsatile mass Auscultation: normoactive bowel sounds Palpation: soft Extremity normal to inspection Extremity Narrative: No asymmetric edema no pitting edema negative Homans' sign bilaterally Neuro oriented x3 and CN's II-XII intact bilaterally Sensorium / Orientation: alert Motor Exam: strength 5/5 throughout Psych mental status grossly normal Skin no rashes or lesions noted MDM MDM MDM Narrative Medical decision making narrative: Patient presented to the ER with stable vitals and report of constant midsternal chest pain for the past 48 hours. With her recent ER work-up as well as CT scan I elected to repeat blood work and a CTA to make sure there was no progression of her PE leading to heart strain. Blood work showed a normal troponin which is consistent with the previous values she has had. Her CTA did not show any type of lung pathology such as infection dissection pneumothorax and I did not notice the peripheral PEs that were seen at the previous visit. On reevaluation the patient reports resolution of her pain. As patient has had constant chest pain for 2 days and does not have any elevation to her troponin and the CTA does not reveal any acute chest pathology I do not feel there is need for inpatient treatment or further work-up and she can be discharged home with outpatient follow-up. Lab Data Attestation: I reviewed the patient's lab results. Labs: Laboratory Results - last 24 hr 02/20/21 02/20/21 02/20/21 22:38 22:38 22:38 WBC 8.4 RBC 4.97 Hgb 14.4 Hct 43.1 MCV 86.7 MCH 29.0 MCHC 33.4 RDW Std Deviation 46.6 H RDW Coeff of Melvina 14.7 H Plt Count 257 MPV 9.9 Immature Gran % (Auto) 0.500 Neut % (Auto) 67.5 Lymph % (Auto) 24.9 Reagan % (Auto) 6.9 Eos % (Auto) 0.0 Baso % (Auto) 0.2 Absolute Neuts (auto) 5.7 Absolute Lymphs (auto) 2.10 Nucleated RBC % 0 PT 13.0 INR 1.0 APTT 55.0 H Sodium 133 L Potassium 4.3 Chloride 102 Carbon Dioxide 26.0 Anion Gap 5 BUN 32 H Creatinine 1.42 H Estim Creat Clear Calc 28.32 Est GFR (MDRD) Af Amer 47 L Est GFR (MDRD) Non-Af 39 L BUN/Creatinine Ratio 22.5 H Glucose 385 H Calcium 9.0 Magnesium 2.2 Troponin I High Sens 10 Radiography Diagnostic Testing: Clinical Impression(s) from Imaging Studies Chest CTA 02/20/21 22:35 IMPRESSION: Negative CTA chest. Electronically Signed: Maria Luz Decker MD at 23:42 EST Tel , Service support , Discharge Plan Triage Chief Complaint: Chest Pain ED Provider: Johnny Fitzpatrick Dx/Rx/DC Orders Clinical Impression: Chest pain Instructions: Pulmonary Embolism Prescriptions: New oxycodone-acetaminophen [Percocet] 5-325 mg tablet 1 tab PO Q6H PRN (Reason: pain) 3 Days Qty: 12 RF: 0 No Action metoprolol tartrate 50 MG tablet 50 mg PO DAILY RF: 0 Tresiba FlexTouch U-200 200 unit/mL (3 mL) insulin pen 80 unit SUBCUT BID RF: 0 aspirin [Aspirin Low Dose] 81 mg Tablet,Delayed Release (Dr/Ec) 81 mg PO DAILY RF: 0 citalopram 20 mg tablet 20 mg PO DAILY RF: 0 levothyroxine [Euthyrox] 50 mcg tablet 50 mcg PO DAILY RF: 0 lisinopril 10 mg tablet 10 mg PO DAILY RF: 0 pioglitazone 30 mg tablet 30 mg PO DAILY RF: 0 Linzess 72 mcg capsule 72 mcg PO DAILY RF: 0 Eliquis 5 mg Tablet 10 mg PO BID Qty: 60 RF: 1 Primary Care Provider: Alfonso Carlson Chi Referrals: Alfonso Carlson Chi, MD [Primary Care Provider] - Disposition Disposition: Home, Self Care
[2021-02-20 22:49] LABS: Absolute Neutrophil Count 5.7 X10^3/uL (2.0-7.7); Basophil# 0.02 X10^3/uL; Basophil% 0.2 % (0-1); Hematocrit 43.1 % (37-47); Hemoglobin 14.4 g/dL (12.0-15.0); Lymphocyte % 24.9 % (19-41); Mean Corp Hgb Conc 33.4 g/dL (32-36); Mean Corpuscular Volume 86.7 fL (81-99); Mean Platelet Vol. 9.9 fl (6.2-12.0); Monocyte# 0.58 X10^3/uL; Monocyte% 6.9 % (0-10); NRBC Flagged by Analyzer 0 % (0-5); Neutrophil # 5.69 X10^3/uL (2.7-7.7); Neutrophil % 67.5 % (47-70); Platelet Count 257 K/mm3 (150-450); RBC Distribution Width CV 14.7 % (11.6-14.6); RBC Distribution Width SD 46.6 fl (35.1-43.9); Red Blood Count 4.97 M/mm3 (4.2-5.4); White Blood Count 8.4 K/mm3 (4.4-11.0)
[2021-02-20] MEDS: Ondansetron 4 MG/2 ML Vial IV (22:59)
[2021-02-20] MEDS: Morphine 4 MG/ML Syringe IV (23:01)
[2021-02-20 23:08] LABS: Anion Gap 5 (5-15); BUN 32 mg/dL (7-18); BUN/Creat Ratio 22.5 RATIO (10-20); Chloride 102 mmol/L (98-107); Creatinine, Serum 1.42 mg/dL (0.55-1.02); EST Glomerular Filtration Rate 39 mL/min (>60); Est Glom Filt Rate - Afr Amer 47 mL/min (>60); Estimated Creatinine Clearance 28.32 ml/min; Glucose 385 mg/dL (74-106); Magnesium 2.2 mg/dL (1.6-2.6); Potassium 4.3 mmol/L (3.5-5.1); Sodium Level 133 mmol/L (136-145); Troponin-I HS 10 pg/mL (3.0-54.0)
[2021-02-21 00:19] VITALS: BP 186/78; PULSE 69; RESP 16; O2SAT 95
[2021-02-21] MEDS: HYDROcodone Bitartrate/Apap 5/325 Tablet PO (00:24)
== END 2021-02-21 00:28 | disposition home or self-care (01) ==
PROVIDERS: Emergency Provider Emergency Medicine; PCP Family Medicine Geriatric Medicine
DX: R07.9 Chest pain, unspecified (principal); E11.9 Type 2 diabetes mellitus without complications; I10 Essential (primary) hypertension; Z79.01 Long term (current) use of anticoagulants; Z79.82 Long term (current) use of aspirin; Z79.899 Other long term (current) drug therapy
CPT/HCPCS: 71275; 80048; 83735; 84484; 85025; 85610; 85730; 93005; 96374; 96375; 99285; J7040; Q9967; A4216; J2405

== ENCOUNTER 2021-03-05 15:12 | Emergency (ER) | payer MEDICARE, SELFPAY ==
[2021-03-05 15:13] VITALS: BP 119/53; PULSE 102; RESP 18; TEMP 36.2; O2SAT 95; BMI 23.8
--- NOTE | 2021-03-05 15:26 | EKG12_ITS ---
Test Reason : CP Blood Pressure : / mmHG Vent. Rate : 092 BPM Atrial Rate : 092 BPM P-R Int : 108 ms QRS Dur : 072 ms QT Int : 356 ms P-R-T Axes : 045 -36 067 degrees QTc Int : 440 ms Sinus rhythm with short ND with Premature atrial complexes in a pattern of bigeminy Left axis deviation Voltage criteria for left ventricular hypertrophy Abnormal ECG Confirmed by SHABANA KLEIN, ANTONIO ([id number]), supervising film or videotape editor CHECO VELASCO ([id number]) on 03/09/2021 9:45:57 AM Referred By: SULAIMAN Confirmed By:VITA DONALD MD
[2021-03-05 16:08] LABS: Absolute Lymphocyte Count 2.08 X10^3/uL (0.83-4.51); Absolute Neutrophil Count 11.1 X10^3/uL (2.0-7.7); Basophil# 0.02 X10^3/uL; Basophil% 0.1 % (0-1); Eosinophil# 0.03 X10^3/uL; Eosinophils% 0.2 % (0-5); Hematocrit 42.8 % (37-47); Hemoglobin 14.9 g/dL (12.0-15.0); Lymphocyte # 2.08 X10^3/ul (0.83-4.51); Lymphocyte % 14.6 % (19-41); Mean Corp Hgb Conc 34.8 g/dL (32-36); Mean Corpuscular Hgb 29.2 pg (27.0-32.0); Mean Corpuscular Volume 83.8 fL (81-99); Mean Platelet Vol. 9.9 fl (6.2-12.0); Monocyte# 0.84 X10^3/uL; Monocyte% 5.9 % (0-10); NRBC Flagged by Analyzer 0 % (0-5); Neutrophil # 11.12 X10^3/uL (2.7-7.7); Neutrophil % 78.4 % (47-70); Platelet Count 227 K/mm3 (150-450); RBC Distribution Width CV 14.5 % (11.6-14.6); RBC Distribution Width SD 44.3 fl (35.1-43.9); Red Blood Count 5.11 M/mm3 (4.2-5.4); White Blood Count 14.2 K/mm3 (4.4-11.0)
[2021-03-05 16:32] VITALS: BP 166/99; PULSE 83; RESP 10; O2SAT 95
[2021-03-05 16:38] LABS: Anion Gap 6 (5-15); BUN 34 mg/dL (7-18); BUN/Creat Ratio 30.4 RATIO (10-20); Calcium,Total 9.2 mg/dL (8.5-10.1); Chloride 100 mmol/L (98-107); Creatinine, Serum 1.12 mg/dL (0.55-1.02); EST Glomerular Filtration Rate 51 mL/min (>60); Est Glom Filt Rate - Afr Amer 62 mL/min (>60); Estimated Creatinine Clearance 35.91 ml/min; Glucose 549 mg/dL (74-106); Potassium 4.7 mmol/L (3.5-5.1); Sodium Level 132 mmol/L (136-145); Troponin-I HS 22 pg/mL (3.0-54.0)
--- NOTE | 2021-03-05 16:40 | RAD_ITS ---
STUDY: X-RAY CHEST REASON FOR EXAM: Female, 71 years old. Chest pain. TECHNIQUE: Single AP portable view of the chest. COMPARISON: 02/17/2021. FINDINGS: The lungs are clear and expanded. There is no demonstrated pleural abnormality. Normal size heart. Normal mediastinum and coco. Normal visualized pulmonary arteries. There is atherosclerotic calcification of the aortic arch with tortuosity. No osseous changes. There is no demonstrated abnormality of the visualized soft tissue structures of the upper abdomen. RAD/Chest 1 View (Portable) IMPRESSION: No acute cardiopulmonary disease or major interval change. Electronically Signed: Yohan Marcial DO at 16:57 EST Tel [phone], Service support ,
--- NOTE | 2021-03-05 17:20 | EDS_ITS ---
HPI History of Present Illness Chief Complaint: Chest Pain Informant: patient and spouse/S.O. Onset/Context/Timing Onset: Weeks Activity at onset: gradual Timing: Intermittent Quality: Positive for Aching, Sharp and Stabbing Location: Substernal Current Severity: Mild Maximum Severity: Moderate Worsened By: Movement of Torso Relieved By: Remaining Still Associated Symptoms: Negative for Nausea, Vomiting, Diaphoresis, Dyspnea, Cough, Fever, Lightheadedness, Acid Reflux and Palpitations Narrative Narrative: 71 female diabetic no cardiac disease. History of pulmonary emboli on Eliquis. Has had the same similar midsternal aching chest pain for weeks or months. Has had it evaluated by primary care physician Dr. Carlson she states he feels it is arthritis. I do not think it is cardiac. She had similar pain today. It is not exertional. She is not short of breath. Prior Similar Symptoms: Yes Recent Illness/Hospitalization: No CVD Risk Factors: Positive for Hypertension and Diabetes PE Risk Factors: Positive for Prior DVT or PE; Negative for Recent Travel/Surgery, Recent Immobilization, Cancer and OCP + Smoking + >/=35 TAD Risk Factors: Positive for Hypertension; Negative for Marfan's Syndrome [facility] Medical History Abscess of right elbow Acute pancreatitis Arthritis Back problem Diabetes Elevated hemoglobin A1c Essential (primary) hypertension Hormone deficiency Hyperlipidemia Mass of skin of right elbow Seasonal allergies Type 2 diabetes mellitus Home Medications metoprolol tartrate 50 mg PO DAILY 03/06/19 [History Last Taken 02/17/21] Tresiba FlexTouch U-200 80 unit SUBCUT BID 01/21/21 [History Last Taken 02/17/21] aspirin [Aspirin Low Dose] 81 mg PO DAILY 02/17/21 [History Last Taken 02/17/21] lisinopril 10 mg PO DAILY 02/17/21 [History Last Taken 02/17/21] apixaban [Eliquis] 10 mg PO BID #60 tab 02/18/21 [Rx Last Taken Unknown] Allergy/AdvReac Type Severity Reaction Status Date / Time diphenhydramine Allergy Swelling Verified 03/05/21 15:15 [From Benadryl] Family History Unknown Breast cancer Colon cancer Myocardial infarction Hypertension Hyperlipidemia Father Heart disease Hypertension Mother Diabetes Hypertension Kidney disease Liver disease Other Arthritis Surgical History History of Social History household members: spouse Smoking Status: Never smoker alcohol intake: never substance use type: does not use what type of physical activity do you participate in: none ROS ROS ED ROS Narrative Denies recent illness. Review of Systems ROS Unobtainable: Denies due to encephalopathy Constitutional Constitutional ED: Denies fever(s) Eyes Eyes: Denies none ENT ENT ED: Denies ear pain Cardiovascular Cardiovascular: Reports as per HPI and chest pain; Denies palpitations Respiratory/Chest Respiratory/Chest: Denies cough or dyspnea Gastrointestinal Gastrointestinal: Denies abdominal pain, diarrhea, nausea or vomiting Genitourinary Genitourinary ED: Denies dysuria Musculoskeletal Musculoskeletal: Denies myalgias Integumentary Denies rash Neurologic Neurologic: Denies headache(s) Psychiatric Psychiatric: Denies depression Endocrine Endocrinology: Denies polyuria Hematologic/Lymphatic Hematologic/Lymphatic: Denies easy bruising Allergic/Immunologic Allergic/Immunologic ED: Denies urticaria EXAM Physical Exam Narrative Exam Narrative: 69-year-old female vital signs stable afebrile. HEENT exam unremarkable. Neck nontender. Lungs clear to auscultation bilaterally. Heart regular rhythm rate about 80 no murmur. Abdomen soft nontender normal bowel sounds no peritoneal signs. Chest wall reproducible exquisite midsternal chest wall tenderness consistent with musculoskeletal etiology. Moving all 4 extremities. Calves are nontender without edema or cords. Neurologically she is awake alert with no focal motor deficits. Const Vital Signs: 03/05/21 15:13 03/05/21 16:32 03/05/21 18:38 Temperature 97.1 F L Temperature Source Temporal Pulse Rate 102 H 83 75 Respiratory Rate 18 10 L 15 Blood Pressure 119/53 L 166/99 H 127/77 H Blood Pressure Mean 75 121 93 Pulse Ox 95 95 95 Oxygen Delivery Method Room Air Room Air Positive well nourished and well developed; Negative for obese, cachectic, contractures or unkempt General Appearance ED: well developed and NAD; Negative for unkempt, cachectic, contractures or pallor Nutritional Appearance: Negative for cachectic or obese HEENT Reports moist mucous membranes normocephalic and atraumatic; Negative for trauma or tenderness Eyes PERRL and EOMs intact bilaterally General Eye ED: Negative for pale conjunctiva Neck no lymphadenopathy, supple and no JVD General: Negative for tenderness Chest Wall inspection of chest normal; Negative for palpation of chest normal Chest: tenderness Resp normal respiratory effort and clear to auscultation bilaterally Effort and Inspection: respiratory distress Auscultation: Negative for rales, rhonchi or wheezes Cardio regular rate, regular rhythm, S1 normal heart sound, S2 normal heart sound and no murmurs Rate: Negative for bradycardia or tachycardic GI normal to inspection, nondistended, normoactive bowel sounds, soft to palpation, non-tender, non-distended and no masses Back/Spine no CVA tenderness Extremity normal to inspection General Extremety ED: Negative for edema or tenderness General Extremity: Negative for edema Neuro oriented x3 Sensorium / Orientation: awake, alert, oriented to person, oriented to place and oriented to time Motor Exam: strength 5/5 throughout Psych mental status grossly normal Appearance: Negative for unkempt Mood & Affect: Negative for depressed or tearful Skin no rashes or lesions noted and no wounds General Skin Exam: Negative for jaundice or pallor MDM MDM MDM Narrative Medical decision making narrative: 69-year-old female with chronic chest pain that clinically and historically sounds musculoskeletal in etiology. Undergo cardiac work-up should be treated with morphine for pain. Her blood sugar is elevated 549 so she will be given insulin and reevaluated. Also IV fluids. Repeat exam patient is doing well. Her blood sugar is improving at 290 after the insulin. Her pain is improved after medications. Lab Data Attestation: I reviewed the patient's lab results. Lab results narrative: CBC White count of 14.2. Hemoglobin 14. Chemistries sodium 132 gap of 6 BUN of 34 creatinine 1.1. Blood sugar was 549. Troponin XX 2. Labs: Laboratory Results - last 24 hr 03/05/21 03/05/21 15:50 15:50 WBC 14.2 H RBC 5.11 Hgb 14.9 Hct 42.8 MCV 83.8 MCH 29.2 MCHC 34.8 RDW Std Deviation 44.3 H RDW Coeff of Melvina 14.5 Plt Count 227 MPV 9.9 Immature Gran % (Auto) 0.800 Neut % (Auto) 78.4 H Lymph % (Auto) 14.6 L [place] % (Auto) 5.9 Eos % (Auto) 0.2 Baso % (Auto) 0.1 Absolute Neuts (auto) 11.1 H Absolute Lymphs (auto) 2.08 Nucleated RBC % 0 Sodium 132 L Potassium 4.7 Chloride 100 Carbon Dioxide 26.0 Anion Gap 6 BUN 34 H Creatinine 1.12 H Estim Creat Clear Calc 35.91 Est GFR (MDRD) Af Amer 62 Est GFR (MDRD) Non-Af 51 L BUN/Creatinine Ratio 30.4 H Glucose 549 H* Calcium 9.2 Troponin I High Sens 22 Radiography Chest X-Ray - ED: 1 View, Read by ED Physician, Read by Radiologist, Normal, Heart, Lungs, Mediastinum, Bony Structures, No Acute Disease and Chronic Changes Diagnostic Testing: Clinical Impression(s) from Imaging Studies Chest X-Ray 03/05/21 16:40 IMPRESSION: No acute cardiopulmonary disease or major interval change. Electronically Signed: Yohan Marcial DO at 16:57 EST Tel [phone], Service support , Portable chest x-ray shows no acute abnormality interpreted both by myself and the radiologist. Normal cardiac silhouette and mediastinum. Normal lung rich. Rhythm Strip Rhythm Strip: Sinus Rhythm Rate: 92 Ectopy: PAC(s) EKG Initial EKG: Attestation: I personally reviewed and interpreted this EKG as follows: Interpretation: Sinus Rhythm and No Acute Injury Pattern Comments: Normal sinus rhythm rate of 92 no acute signs of WI or ischemia. Few PACs. No acute change from a prior EKG from February 20. Prior EKG tracings: available for review Prior: Unchanged Discharge Plan Triage Chief Complaint: Chest Pain ED Provider: Dominguez Zavala Dx/Rx/DC Orders Clinical Impression: Acute chest wall pain, Hyperglycemia due to type 2 diabetes mellitus Instructions: ED Chest Pain, Noncardiac, ED Diabetic Hyperglycemia Prescriptions: No Action metoprolol tartrate 50 MG tablet 50 mg PO DAILY RF: 0 Tresiba FlexTouch U-200 200 unit/mL (3 mL) insulin pen 80 unit SUBCUT BID RF: 0 aspirin [Aspirin Low Dose] 81 mg Tablet,Delayed Release (Dr/Ec) 81 mg PO DAILY RF: 0 lisinopril 10 mg tablet 10 mg PO DAILY RF: 0 Eliquis 5 mg Tablet 10 mg PO BID Qty: 60 RF: 1 Primary Care Provider: Alfonso Carlson Chi Referrals: Alfonso Carlson Chi, MD [Primary Care Provider] - 3-5 Days if not improving Activity Restrictions/Additional Instructions: Watch your blood sugars closely. Make sure you check again tonight before you go to bed. Follow-up with your doctor if not improving. Return if worse. Disposition Disposition: Home, Self Care
[2021-03-05] MEDS: Insulin Lispro 100 UNIT/ML INSULN.PEN 15 UNIT SC (17:39)
[2021-03-05] MEDS: morphine 8 MG/ML Syringe 6 MG IV (17:44)
[2021-03-05] MEDS: Ondansetron 4 MG/2 ML Vial IV (17:45)
[2021-03-05] MEDS: 0.9% Normal Saline 1,000 ML 999 ML IV (17:51)
[2021-03-05 18:38] VITALS: BP 127/77; PULSE 75; RESP 15; O2SAT 95
[2021-03-05 18:41] LABS: Bedside Glucose 290 mg/dL (70-110)
[2021-03-05 18:48] VITALS: BP 142/85; PULSE 71; RESP 25; O2SAT 97
== END 2021-03-05 18:56 | disposition home or self-care (01) ==
PROVIDERS: Emergency Provider Emergency Medicine; PCP Family Medicine Geriatric Medicine
DX: R07.89 Other chest pain (principal); E11.65 Type 2 diabetes mellitus with hyperglycemia; I10 Essential (primary) hypertension; Z79.01 Long term (current) use of anticoagulants; Z79.4 Long term (current) use of insulin; Z79.82 Long term (current) use of aspirin; Z86.711 Personal history of pulmonary embolism; Z86.718 Personal history of other venous thrombosis and embolism; Z79.899 Other long term (current) drug therapy
CPT/HCPCS: 71045; 80048; 82962; 84484; 85025; 93005; 96374; 96375; 99283; J7030; A4216; J2405

== ENCOUNTER 2021-03-08 00:49 | Emergency (ER) | payer MEDICARE, SELFPAY ==
[2021-03-08 00:49] VITALS: BP 163/61; PULSE 67; RESP 20; TEMP 36.1; O2SAT 98; BMI 24.5
--- NOTE | 2021-03-08 00:58 | RAD_ITS ---
HISTORY: chest pain EXAMINATION/TECHNIQUE: XR Chest 1 View COMPARISON: AP chest x-ray from 03/05/21 FINDINGS: LINES/DEVICES: quality assurance monitor leads. LUNGS: No pulmonary edema. No focal airspace consolidation. No sizable pleural effusion. No pneumothorax detected. Stable mildly elevated right hemidiaphragm. MEDIASTINUM AND CARDIOVASCULAR STRUCTURES: Heart normal size. Atherosclerotic calcifications along the aorta. BONES AND SOFT TISSUES: Skeletal degenerative changes. RAD/Chest 1 View (Portable) IMPRESSION: No radiographic evidence of acute cardiopulmonary disease. at 0203 Reported and signed by: Raymond Kent MD Electronically Signed: Raymond Kent MD at 2:02 EST Tel , Service support ,
--- NOTE | 2021-03-08 00:58 | EKG12_ITS ---
Test Reason : CP Blood Pressure : / mmHG Vent. Rate : 093 BPM Atrial Rate : 093 BPM P-R Int : 110 ms QRS Dur : 074 ms QT Int : 346 ms P-R-T Axes : 044 -28 073 degrees QTc Int : 430 ms Sinus rhythm with short NM with Premature atrial complexes in a pattern of bigeminy Otherwise normal ECG Confirmed by BETZY KLEIN, CATHRYN ([id number]), video effects editor CHECO VELASCO ([id number]) on 03/09/2021 10:19:51 AM Referred By: MICHAEL Confirmed By:CATHRYN BO MD
[2021-03-08 01:16] VITALS: O2SAT 96
[2021-03-08 01:20] LABS: Absolute Lymphocyte Count 2.52 X10^3/uL (0.83-4.51); Absolute Neutrophil Count 8.2 X10^3/uL (2.0-7.7); Basophil# 0.02 X10^3/uL; Basophil% 0.2 % (0-1); Eosinophil# 0.07 X10^3/uL; Eosinophils% 0.6 % (0-5); Hematocrit 40.8 % (37-47); Hemoglobin 13.5 g/dL (12.0-15.0); Lymphocyte # 2.52 X10^3/ul (0.83-4.51); Lymphocyte % 21.9 % (19-41); Mean Corp Hgb Conc 33.1 g/dL (32-36); Mean Corpuscular Hgb 29.2 pg (27.0-32.0); Mean Corpuscular Volume 88.1 fL (81-99); Mean Platelet Vol. 11.2 fl (6.2-12.0); Monocyte# 0.67 X10^3/uL; Monocyte% 5.8 % (0-10); NRBC Flagged by Analyzer 0 % (0-5); Neutrophil # 8.15 X10^3/uL (2.7-7.7); Neutrophil % 70.9 % (47-70); POSITIVE COUNT YES; Platelet Count 146 K/mm3 (150-450); RBC Distribution Width CV 15.1 % (11.6-14.6); Red Blood Count 4.63 M/mm3 (4.2-5.4); White Blood Count 11.5 K/mm3 (4.4-11.0)
[2021-03-08 01:21] LABS: Differential Indicated SCAN CRITERIA MET
[2021-03-08 01:42] LABS: Anion Gap 7 (5-15); BUN 29 mg/dL (7-18); BUN/Creat Ratio 28.2 RATIO (10-20); Calcium,Total 8.8 mg/dL (8.5-10.1); Chloride 105 mmol/L (98-107); Creatinine, Serum 1.03 mg/dL (0.55-1.02); EST Glomerular Filtration Rate 56 mL/min (>60); Est Glom Filt Rate - Afr Amer 68 mL/min (>60); Estimated Creatinine Clearance 39.05 ml/min; Glucose 411 mg/dL (74-106); Potassium 4.9 mmol/L (3.5-5.1); Sodium Level 135 mmol/L (136-145); Troponin-I HS 19 pg/mL (3.0-54.0)
[2021-03-08 01:57] LABS: Differential Comment SCANNED; Platelet Estimate ADEQUATE (ADEQ)
[2021-03-08] MEDS: Morphine 4 MG/ML Syringe IV (02:16)
[2021-03-08 02:18] VITALS: BP 156/56; PULSE 93; RESP 23; O2SAT 98
--- NOTE | 2021-03-08 03:14 | EDS_ITS ---
HPI History of Present Illness Chief Complaint: Chest Pain Narrative Narrative: 71-year-old female presenting with chest pain. She describes it as sharp. She is not short of breath. She does not feel lightheaded or dizzy. Has no radiation of the pain. She been seen and evaluated for this pain several times. Her primary care physician believes that it is arthritis. She has several recent visits to the ER for similar pain. She had a CTA of the chest which showed a possible peripheral blood clot and she was started on Eliquis. 2 days later she had a repeat CTA because of continued pain and this 1 was negative. Patient had been admitted to the hospital and had a echocardiogram which was normal. She continues to have this intermittent pain. She has no cough, fever, chills. She states that she is always hyperglycemic and has difficulty controlling her blood sugars. [facility] Medical History Abscess of right elbow Acute pancreatitis Arthritis Back problem Diabetes Elevated hemoglobin A1c Essential (primary) hypertension Hormone deficiency Hyperlipidemia Mass of skin of right elbow Seasonal allergies Type 2 diabetes mellitus Home Medications metoprolol tartrate 50 mg PO DAILY 03/06/19 [History Last Taken 02/17/21] Tresiba FlexTouch U-200 80 unit SUBCUT BID 01/21/21 [History Last Taken 02/17/21] aspirin [Aspirin Low Dose] 81 mg PO DAILY 02/17/21 [History Last Taken 02/17/21] lisinopril 10 mg PO DAILY 02/17/21 [History Last Taken 02/17/21] apixaban [Eliquis] 5 mg PO BID 03/08/21 [History Last Taken Unknown] Allergy/AdvReac Type Severity Reaction Status Date / Time diphenhydramine Allergy Swelling Verified 03/08/21 00:53 [From Benadryl] Family History Unknown Breast cancer Colon cancer Myocardial infarction Hypertension Hyperlipidemia Father Heart disease Hypertension Mother Diabetes Hypertension Kidney disease Liver disease Other Arthritis Surgical History History of Social History household members: spouse Smoking Status: Never smoker alcohol intake: never substance use type: does not use what type of physical activity do you participate in: none ROS ROS ED Constitutional Constitutional ED: Denies chills, fever(s) or subjective Eyes Eyes: Denies none, blurry vision or change in vision ENT ENT ED: Denies rhinorrhea Cardiovascular Cardiovascular: Reports as per HPI Respiratory/Chest Respiratory/Chest: Denies cough or dyspnea Gastrointestinal Gastrointestinal: Denies abdominal pain, nausea or vomiting Genitourinary Genitourinary ED: Denies dysuria or hematuria Musculoskeletal Musculoskeletal: Denies arthralgias or myalgias Integumentary Denies abscess or rash Neurologic Neurologic: Denies headache(s) or weakness Psychiatric Psychiatric: Denies anxiety or depression Endocrine Endocrinology: Denies polydipsia or polyuria EXAM Physical Exam Const Vital Signs: 03/08/21 00:49 03/08/21 01:16 03/08/21 01:18 Temperature 97.0 F L Temperature Source Temporal Pulse Rate 67 Respiratory Rate 20 H Respiratory Effort Normal Blood Pressure 163/61 H Blood Pressure Mean 95 Pulse Ox 98 96 Oxygen Delivery Method Room Air Room Air 03/08/21 02:18 Temperature Temperature Source Pulse Rate 93 Respiratory Rate 23 H Respiratory Effort Blood Pressure 156/56 H Blood Pressure Mean 89 Pulse Ox 98 Oxygen Delivery Method Room Air Positive obese General Appearance ED: NAD; Negative for pallor Nutritional Appearance: obese HEENT Reports moist mucous membranes normocephalic and atraumatic Eyes PERRL and EOMs intact bilaterally Chest Wall Chest: tenderness sternum and xiphoid process Resp normal respiratory effort Effort and Inspection: respiratory distress Cardio regular rate Peripheral Pulses: posterior tibial pulses present Neuro oriented x3 and CN's II-XII intact bilaterally Sensorium / Orientation: awake and alert Motor Exam: strength 5/5 throughout Psych mental status grossly normal Skin General Skin Exam: Negative for jaundice or pallor Heart Score History: Slightly/Non-Suspicious Age: >/= 65 years Risk Factors: 1 or 2 Risk Factors Troponin: </= Normal Limit Score: 3 MDM MDM MDM Narrative Medical decision making narrative: Patient presenting with sharp chest pain which she has had previously. She has had a CTA of the chest which showed a peripheral blood clot previously and then a follow-up CTA which did not show anything. The pain has not changed for her. It is reproducible in the sternal area. I do not believe she needs another CTA. I did obtain blood work and her CBC shows she has a white blood cell count 11.5 which is actually lower than previously. Her hemoglobin is stable at 13.5. Platelets are 146. Creatinine is actually improved at 1.03. Glucose is elevated at 411 but looking back in the records she always has high glucose. Her anion gap is 7. Electrolytes within normal limits. High-sensitivity troponin is 19. Her previous troponin from the second was 22 so this is actually improved. Chest x-ray my interpretation shows no acute cardiopulmonary process and the radiologist does agree. I did review the records of more and and found that she recently had an echocardiogram inpatient which was normal. I had a long discussion with her about her plan going forward with the chest pain that is reproducible in her chest wall as well as multiple cardiac work-ups which were negative. She states that she is seeing Dr. Murphy and on the second his nurse was able to send her some Tylenol with codeine in it. She states that she ran out. She acknowledges that she is not having a cardiac issue but she has a pain issue and every time she has it she comes to the emergency room for the pain. She states that her next appointment with her automotive painter is on the . Delta troponin is 18. I feel this point the patient can safely be discharged home. Impression: 1. Chest wall pain Lab Data Labs: Laboratory Results - last 24 hr 03/08/21 03/08/21 03/08/21 01:12 01:12 04:10 WBC 11.5 H RBC 4.63 Hgb 13.5 Hct 40.8 MCV 88.1 D MCH 29.2 MCHC 33.1 RDW Std Deviation 49.0 H RDW Coeff of Melvina 15.1 H Plt Count 146 L MPV 11.2 Immature Gran % (Auto) 0.600 Neut % (Auto) 70.9 H Lymph % (Auto) 21.9 [place] % (Auto) 5.8 Eos % (Auto) 0.6 Baso % (Auto) 0.2 Absolute Neuts (auto) 8.2 H Absolute Lymphs (auto) 2.52 Nucleated RBC % 0 Differential Comment SCANNED Platelet Estimate ADEQUATE Sodium 135 L Potassium 4.9 Chloride 105 Carbon Dioxide 23.0 Anion Gap 7 BUN 29 H Creatinine 1.03 H Estim Creat Clear Calc 39.05 Est GFR (MDRD) Af Amer 68 Est GFR (MDRD) Non-Af 56 L BUN/Creatinine Ratio 28.2 H Glucose 411 H Calcium 8.8 Troponin I High Sens 19 18 Radiography Diagnostic Testing: Clinical Impression(s) from Imaging Studies Chest X-Ray 03/08/21 00:58 IMPRESSION: No radiographic evidence of acute cardiopulmonary disease. at 0203 Reported and signed by: Raymond Kent MD Electronically Signed: Raymond Kent MD at 2:02 EST Tel , Service support , Discharge Plan Triage Chief Complaint: Chest Pain ED Provider: Kalpesh Burt Dx/Rx/DC Orders Clinical Impression: Acute chest wall pain Instructions: ED Chest Wall Pain, Costochondritis Prescriptions: No Action metoprolol tartrate 50 MG tablet 50 mg PO DAILY RF: 0 Tresiba FlexTouch U-200 200 unit/mL (3 mL) insulin pen 80 unit SUBCUT BID RF: 0 aspirin [Aspirin Low Dose] 81 mg Tablet,Delayed Release (Dr/Ec) 81 mg PO DAILY RF: 0 lisinopril 10 mg tablet 10 mg PO DAILY RF: 0 Eliquis 5 mg tablet 5 mg PO BID RF: 0 Primary Care Provider: Alfonso Carlson Chi Referrals: Alfonso Carlson Chi, MD [Primary Care Provider] - Disposition Disposition: Home, Self Care
[2021-03-08 04:50] VITALS: BP 167/70; PULSE 78; RESP 17; TEMP 36.6; O2SAT 97
[2021-03-08 04:50] LABS: Troponin-I HS 18 pg/mL (3.0-54.0)
[2021-03-08 05:04] VITALS: PULSE 78
== END 2021-03-08 05:05 | disposition home or self-care (01) ==
PROVIDERS: Emergency Provider Student in an Organized Health Care Education/Training Program; PCP Family Medicine Geriatric Medicine
DX: R07.89 Other chest pain (principal); E66.9 Obesity, unspecified; I10 Essential (primary) hypertension; E11.9 Type 2 diabetes mellitus without complications; Z79.82 Long term (current) use of aspirin; Z79.01 Long term (current) use of anticoagulants; Z79.4 Long term (current) use of insulin; Z79.899 Other long term (current) drug therapy
CPT/HCPCS: 36415; 71045; 80048; 84484; 85025; 93005; 96374; 99285; A4216

== ENCOUNTER → 2021-04-01 14:36 | Outpatient (CLI) | payer MEDICARE, SELFPAY ==
--- NOTE | 2021-04-01 14:39 | RAD_ITS ---
STUDY: X-RAY - LEFT KNEE REASON FOR EXAM: Female, 71 years old. KNEE PAIN TECHNIQUE: 4 view(s) of the knee. COMPARISON: 09/12/2019 FINDINGS: Normal visualized distal femur. Normal visualized proximal tibia and fibula. Normal proximal tibiofibular articulation. Normal medial femorotibial compartment. Normal lateral femorotibial compartment. Normal patellofemoral articulation. 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 There are atherosclerotic calcifications. RAD/Knee 4 or More Views IMPRESSION: No change from 09/12/2019. Electronically Signed: Jaydon Barahona MD at 15:12 EST Tel , Service support ,
--- NOTE | 2021-04-01 14:39 | RAD_ITS ---
STUDY: X-RAY - RIGHT KNEE REASON FOR EXAM: Female, 71 years old. KNEE PAIN TECHNIQUE: 4 view(s) of the knee. COMPARISON: 09/12/2019 FINDINGS: Normal visualized distal femur. Normal visualized proximal tibia and fibula. Normal proximal tibiofibular articulation. There is mild degenerative arthrosis of the medial femorotibial compartment. Normal lateral femorotibial compartment. Normal patellofemoral articulation. 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 There are atherosclerotic calcifications. RAD/Knee 4 or More Views IMPRESSION: No change from 09/12/2019. Electronically Signed: Jaydon Barahona MD at 15:13 EST Tel , Service support ,
== END ==
LOC: RAD 14:38
PROVIDERS: PCP Family Medicine Geriatric Medicine; Referring Provider Family Medicine Geriatric Medicine; Visit Provider Family Medicine Geriatric Medicine
DX: M25.569 Pain in unspecified knee (principal)
CPT/HCPCS: 73564

== ENCOUNTER 2021-04-01 21:14 | Emergency (ER) | payer MEDICARE, SELFPAY ==
[2021-04-01 21:14] VITALS: BP 145/62; PULSE 100; RESP 16; TEMP 36.7; O2SAT 97; BMI 23.8
[2021-04-01] MEDS: morphine 10 MG/ML Syringe 8 MG IM (23:41)
[2021-04-01] MEDS: Ondansetron ODT 4 MG Tablet PO (23:42)
--- NOTE | 2021-04-02 00:08 | EDS_ITS ---
HPI History of Present Illness Chief Complaint: Lower Extremity Injury Narrative Narrative: Patient is a 71-year-old female who states that over the last few days she has had bilateral knee pain with no known injury. She states she went and saw her family doctor who performed x-rays and gave her knee injections. She states that this helped for 1 to 2 hours but the pain has returned and persisted. She states she is taken the naproxen she was prescribed but there has been no symptom improvement. She does report a past medical history of blood clots but states she is on Eliquis for this and denies any chest pain or shortness of breath. She states that as she cannot get the pain under control she presents for evaluation [facility] Medical History Abscess of right elbow Acute pancreatitis Arthritis Back problem Diabetes Elevated hemoglobin A1c Essential (primary) hypertension Hormone deficiency Hyperlipidemia Mass of skin of right elbow Seasonal allergies Type 2 diabetes mellitus Home Medications metoprolol tartrate 50 mg PO DAILY 03/06/19 [History Last Taken 02/17/21] Tresiba FlexTouch U-200 80 unit SUBCUT BID 01/21/21 [History Last Taken 02/17/21] aspirin [Aspirin Low Dose] 81 mg PO DAILY 02/17/21 [History Last Taken 02/17/21] lisinopril 10 mg PO DAILY 02/17/21 [History Last Taken 02/17/21] apixaban [Eliquis] 5 mg PO BID 03/08/21 [History Last Taken Unknown] diclofenac sodium [Voltaren Arthritis Pain] 2 g TOPICAL TID PRN PRN #100 g 04/02/21 [Rx Last Taken Unknown] oxycodone-acetaminophen [Endocet] 1 tab PO Q6H PRN 3 Days #12 tab 04/02/21 [Rx Last Taken Unknown] Allergy/AdvReac Type Severity Reaction Status Date / Time diphenhydramine Allergy Swelling Verified 04/01/21 21:17 [From Benadryl] Family History Unknown Breast cancer Colon cancer Myocardial infarction Hypertension Hyperlipidemia Father Heart disease Hypertension Mother Diabetes Hypertension Kidney disease Liver disease Other Arthritis Surgical History History of Social History household members: spouse Smoking Status: Never smoker alcohol intake: never substance use type: does not use what type of physical activity do you participate in: none ROS ROS ED Constitutional Constitutional ED: Denies chills or fever(s) ENT ENT ED: Denies sore throat Cardiovascular Cardiovascular: Denies chest pain Respiratory/Chest Respiratory/Chest: Denies cough or dyspnea Gastrointestinal Gastrointestinal: Denies abdominal pain, diarrhea, nausea or vomiting Genitourinary Genitourinary ED: Denies dysuria Musculoskeletal Musculoskeletal: Reports other Details: Positive bilateral knee pain ; Denies myalgias Integumentary Denies Abrasions or rash Neurologic Neurologic: Denies headache(s) Hematologic/Lymphatic Hematologic/Lymphatic: Reports easy bleeding and easy bruising EXAM Physical Exam Const Vital Signs: 04/01/21 21:14 Temperature 98.1 F Temperature Source Temporal Pulse Rate 100 Respiratory Rate 16 Blood Pressure 145/62 H Blood Pressure Mean 89 Pulse Ox 97 Oxygen Delivery Method Room Air Positive well nourished and well developed General Appearance ED: well developed Eyes PERRL and EOMs intact bilaterally Neck supple Resp normal respiratory effort and clear to auscultation bilaterally Cardio regular rate and regular rhythm Extremity Extremity Narrative: Bilateral lower extremities are neurovascularly intact. No asymmetric edema no pitting edema negative Homans' sign bilaterally. Bilateral patellar tendons are intact and stabilizing knee ligaments are normal. She has mild arthritic changes noted but no overlying soft tissue changes to suggest infection or gout. Neuro oriented x3 and CN's II-XII intact bilaterally Sensorium / Orientation: alert Motor Exam: strength 5/5 throughout Psych mental status grossly normal Skin no rashes or lesions noted MDM MDM MDM Narrative Medical decision making narrative: Patient presented to the ER afebrile with no report or signs of trauma. She also had no signs of infection. Patient had x- rays already obtained earlier today so I felt no need to repeat this and she is currently on a anticoagulation so I have no concern for DVT. Her x-rays were reviewed which shows mild arthritic changes but otherwise nothing focal. Patient was given morphine in the ER which did help resolve her pain. I do feel that her symptoms are related to mild arthritic changes and inflammation therefore she will be prescribed Voltaren gel and I will give her a few days worth of Percocet to help control the pain and otherwise she is safe for discharge. Discharge Plan Triage Chief Complaint: Lower Extremity Injury ED Provider: Johnny Fitzpatrick Dx/Rx/DC Orders Clinical Impression: Osteoarthritis, Acute bilateral knee pain Instructions: ED Arthralgia, ED Knee Pain of Uncertain Cause, ED Osteoarthritis Prescriptions: New diclofenac sodium [Voltaren Arthritis Pain] 1 % gel 2 g topical TID PRN PRN (Reason: pain) Qty: 100 RF: 2 oxycodone-acetaminophen [Endocet] 5-325 mg tablet 1 tab PO Q6H PRN (Reason: pain) 3 Days Qty: 12 RF: 0 No Action metoprolol tartrate 50 MG tablet 50 mg PO DAILY RF: 0 Tresiba FlexTouch U-200 200 unit/mL (3 mL) insulin pen 80 unit SUBCUT BID RF: 0 aspirin [Aspirin Low Dose] 81 mg Tablet,Delayed Release (Dr/Ec) 81 mg PO DAILY RF: 0 lisinopril 10 mg tablet 10 mg PO DAILY RF: 0 Eliquis 5 mg tablet 5 mg PO BID RF: 0 Primary Care Provider: Alfonso Carlson Chi Referrals: Alfonso Carlson Chi, MD [Primary Care Provider] - Disposition Disposition: Home, Self Care
== END 2021-04-02 00:34 | disposition home or self-care (01) ==
PROVIDERS: Emergency Provider Emergency Medicine; PCP Family Medicine Geriatric Medicine
DX: M17.0 Bilateral primary osteoarthritis of knee (principal); E11.9 Type 2 diabetes mellitus without complications; I10 Essential (primary) hypertension; E78.5 Hyperlipidemia, unspecified; Z79.4 Long term (current) use of insulin; Z79.01 Long term (current) use of anticoagulants; Z79.82 Long term (current) use of aspirin; Z79.1 Long term (current) use of non-steroidal anti-inflammatories (NSAID); Z86.718 Personal history of other venous thrombosis and embolism
CPT/HCPCS: 96372; 99283

== ENCOUNTER 2021-04-08 13:32 | Outpatient (CLI) | payer MEDICARE, SELFPAY | END 2021-04-08 23:59 | disposition short-term general hospital (02) | PROVIDERS: PCP Family Medicine Geriatric Medicine; Referring Provider Family Medicine Geriatric Medicine; Visit Provider Family Medicine Geriatric Medicine | DX: R68.83 Chills (without fever) (principal) | CPT/HCPCS: 87635; C9803; U0003; U0005 ==

== ENCOUNTER 2021-04-28 11:09 | Outpatient (CLI) | payer MEDICARE, SELFPAY ==
[2021-04-28 12:30] LABS: Absolute Neutrophil Count 7.5 X10^3/uL (2.0-7.7); Basophil# 0.04 X10^3/uL; Basophil% 0.3 % (0-1); Eosinophil# 0.03 X10^3/uL; Eosinophils% 0.2 % (0-5); Hematocrit 42.3 % (37-47); Hemoglobin 14.1 g/dL (12.0-15.0); Lymphocyte % 28.8 % (19-41); Mean Corp Hgb Conc 33.3 g/dL (32-36); Mean Corpuscular Hgb 29.3 pg (27.0-32.0); Mean Corpuscular Volume 87.8 fL (81-99); Mean Platelet Vol. 9.8 fl (6.2-12.0); Monocyte# 0.89 X10^3/uL; Monocyte% 7.3 % (0-10); NRBC Flagged by Analyzer 0 % (0-5); Neutrophil # 7.48 X10^3/uL (2.7-7.7); Neutrophil % 61.8 % (47-70); Platelet Count 310 K/mm3 (150-450); RBC Distribution Width CV 16.2 % (11.6-14.6); RBC Distribution Width SD 52.1 fl (35.1-43.9); Red Blood Count 4.82 M/mm3 (4.2-5.4); White Blood Count 12.1 K/mm3 (4.4-11.0)
[2021-04-28 12:48] LABS: Vitamin D,25 Hydroxy 12.1 ng/mL
[2021-04-28 13:19] LABS: ALB/GLOB Ratio 0.7 RATIO (0.9-2.4); AST(SGOT) 14 U/L (15-37); Alanine Aminotransfer ALT/SGPT 36 U/L (13-56); Albumin, Serum 2.9 g/dL (3.2-5.0); Alkaline Phosphatase 99 U/L (45-117); Anion Gap 8 (5-15); BUN 22 mg/dL (7-18); BUN/Creat Ratio 25.1 RATIO (10-20); Calcium,Total 9.4 mg/dL (8.5-10.1); Chloride 102 mmol/L (98-107); Cholesterol 363 mg/dL (200); Creatinine, Serum 0.88 mg/dL (0.55-1.02); EST Glomerular Filtration Rate 67 mL/min (>60); Est Glom Filt Rate - Afr Amer 82 mL/min (>60); Globulin 3.9 g/dL (2.2-4.2); Glucose 272 mg/dL (74-106); High Density Lipoprotein 57 mg/dL; Potassium 4.4 mmol/L (3.5-5.1); Protein, Total 6.8 g/dL (6.4-8.2); Sodium Level 135 mmol/L (136-145); Thyroid Stim Hormone (TSH) 6.44 uIU/mL (0.358-3.74); Triglycerides 433 mg/dL
[2021-04-28 14:27] LABS: Hemoglobin A1c 10.9 % (3.8-5.6)
== END 2021-04-28 23:59 | disposition short-term general hospital (02) ==
PROVIDERS: PCP Family Medicine Geriatric Medicine; Visit Provider Family Medicine Geriatric Medicine
DX: E11.9 Type 2 diabetes mellitus without complications (principal); E55.9 Vitamin D deficiency, unspecified; E78.5 Hyperlipidemia, unspecified; R53.83 Other fatigue
CPT/HCPCS: 36415; 80053; 80061; 82306; 83036; 84443; 85025

== ENCOUNTER 2021-04-30 05:00 | Emergency (ER) | payer MEDICARE, SELFPAY ==
[2021-04-30 05:04] VITALS: BP 170/116; PULSE 70; RESP 16; TEMP 35.8; O2SAT 98; BMI 25.1
--- NOTE | 2021-04-30 05:28 | CT_ITS ---
STUDY: CT CERVICAL SPINE WITHOUT CONTRAST REASON FOR EXAM: Female, 71 years old. Trauma RADIATION DOSAGE (If Supplied By Facility): CTDIvol = ( 17.78 ) mGy, DLP = ( 307.44 ) mGycm TECHNIQUE: High resolution transaxial imaging was performed without contrast material. Sagittal and coronal images were reconstructed. Individualized dose optimization techniques were used for this CT. COMPARISON: None FINDINGS: Normal craniovertebral junction. There are degenerative changes of the anterior atlantoaxial articulation. Normal odontoid process. Normal cervical lordosis. Normal vertebral bodies and posterior osseous elements. C2-3: Normal endplates. Normal disc height and morphology. Normal central canal and intervertebral neuroforamina. C3-4: There is facet arthropathy right greater than left with minimal neural foraminal narrowing no significant central stenosis. C4-5: There is minimal spondylosis. There is facet arthropathy with minimal neural foraminal narrowing no significant central stenosis. C5-6: There is spondylosis with disc space narrowing no significant neural foraminal narrowing or central stenosis. C6-7: There is spondylosis. Normal disc height and morphology. Normal central canal and intervertebral neuroforamina. C7-T1: Normal endplates. Normal disc height and morphology. Normal central canal and intervertebral neuroforamina. There is calcification of the carotid bulbs. CT/Spine Cervical without Contras IMPRESSION: Degenerative change of the cervical spine. No visualized acute fracture. Electronically Signed: Lurdes Bledsoe MD at 6:00 EST Reading Location ID and State: [facility] / [place] Tel , Service support ,
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
--- NOTE | 2021-04-30 05:42 | EDS_ITS ---
HPI History of Present Illness Chief Complaint: Wound Informant: patient Onset/Context/Timing Onset: Today Current Severity: Mild Maximum Severity: Mild Narrative Narrative: Patient presents after a fall at home. She states that she fell over a pair shoes that were on the floor. She has skin tears to her arms. She does complain of headache and neck pain, but states this actually started before her fall. Patient is on Eliquis. [facility] Medical History Abscess of right elbow Acute pancreatitis Arthritis Back problem Diabetes Elevated hemoglobin A1c Essential (primary) hypertension Hormone deficiency Hyperlipidemia Mass of skin of right elbow Seasonal allergies Type 2 diabetes mellitus Home Medications metoprolol tartrate 50 mg PO DAILY 03/06/19 [History Last Taken 02/17/21] Tresiba FlexTouch U-200 80 unit SUBCUT BID 01/21/21 [History Last Taken 02/17/21] aspirin [Aspirin Low Dose] 81 mg PO DAILY 02/17/21 [History Last Taken 02/17/21] lisinopril 10 mg PO DAILY 02/17/21 [History Last Taken 02/17/21] apixaban [Eliquis] 5 mg PO BID 03/08/21 [History Last Taken Unknown] diclofenac sodium [Voltaren Arthritis Pain] 2 g TOPICAL TID PRN PRN #100 g 04/02/21 [Rx Last Taken Unknown] Allergy/AdvReac Type Severity Reaction Status Date / Time diphenhydramine Allergy Swelling Verified 04/30/21 05:02 [From Benadryl] Family History Unknown Breast cancer Colon cancer Myocardial infarction Hypertension Hyperlipidemia Father Heart disease Hypertension Mother Diabetes Hypertension Kidney disease Liver disease Other Arthritis Surgical History History of Social History household members: spouse Smoking Status: Never smoker alcohol intake: never substance use type: does not use what type of physical activity do you participate in: none ROS ROS ED Constitutional Constitutional ED: Denies chills or fever(s) Eyes Eyes: Denies change in vision ENT ENT ED: Denies rhinorrhea or sore throat Cardiovascular Cardiovascular: Denies chest pain or palpitations Respiratory/Chest Respiratory/Chest: Denies cough or dyspnea Gastrointestinal Gastrointestinal: Denies abdominal pain, diarrhea, nausea or vomiting Musculoskeletal Musculoskeletal: Reports arthralgias and neck pain Integumentary Reports other Details: Skin tears Neurologic Neurologic: Reports headache(s) Allergic/Immunologic Allergic/Immunologic ED: Denies urticaria EXAM Physical Exam Const Vital Signs: 04/30/21 05:04 Temperature 96.5 F L Temperature Source Temporal Pulse Rate 70 Respiratory Rate 16 Blood Pressure 170/116 H Blood Pressure Mean 134 Pulse Ox 98 Oxygen Delivery Method Room Air Positive well nourished and well developed General Appearance ED: well developed HEENT Reports moist mucous membranes Eyes PERRL and EOMs intact bilaterally Neck supple Neck Narrative: Mild C-spine tenderness. Chest Wall inspection of chest normal and palpation of chest normal Resp normal respiratory effort and clear to auscultation bilaterally Cardio regular rate and regular rhythm GI non-tender Palpation: soft Extremity Extremity Narrative: Multiple skin tears noted to her arms, left ear than right. The left forearm has a 2 x 4 cm skin avulsion. There are 4 linear skin tears measuring 3 cm, 1 cm, 1 cm, 2 cm. The left upper arm there is a 2 cm linear skin tear. The right forearm has a 6 x 3 cm skin avulsion. No bony tenderness is noted with full range of motion. Neuro oriented x3 Sensorium / Orientation: alert Psych mental status grossly normal Skin Skin Narrative: Skin tears as noted above. MDM MDM MDM Narrative Medical decision making narrative: Arm wounds were cleansed and dressed by nursing staff. CT scan of head and C-spine obtained. Radiography Diagnostic Testing: Clinical Impression(s) from Imaging Studies Brain CT 04/30/21 05:28 IMPRESSION: 1. Small vessel ischemic/degenerative changes. 2. Cerebral and cerebellar atrophy. 3. No demonstrated acute intracranial process. Electronically Signed: Juan Shay MD at 6:05 EST Reading Location ID and State: [facility] / [place] , Service support , Cervical Spine CT 04/30/21 05:28 IMPRESSION: Degenerative change of the cervical spine. No visualized acute fracture. Electronically Signed: Lurdes Bledsoe MD at 6:00 EST , Treatment and Re-Evaluation Comments:: CT scans reveal no acute findings. Test results discussed with the patient and she is reassured with this. She will continue supportive care at home. Discharge Plan Triage Chief Complaint: Wound ED Provider: Chrissy Gallagher Dx/Rx/DC Orders Clinical Impression: Fall, Headache, Avulsion of skin Instructions: ED Skin Avulsion, ED Fall Prevention Prescriptions: No Action metoprolol tartrate 50 MG tablet 50 mg PO DAILY RF: 0 Tresiba FlexTouch U-200 200 unit/mL (3 mL) insulin pen 80 unit SUBCUT BID RF: 0 aspirin [Aspirin Low Dose] 81 mg Tablet,Delayed Release (Dr/Ec) 81 mg PO DAILY RF: 0 lisinopril 10 mg tablet 10 mg PO DAILY RF: 0 Eliquis 5 mg tablet 5 mg PO BID RF: 0 diclofenac sodium [Voltaren Arthritis Pain] 1 % gel 2 g topical TID PRN PRN (Reason: pain) Qty: 100 RF: 2 Primary Care Provider: Alfonso Carlson Chi Referrals: Alfonso Carlson Chi, MD [Primary Care Provider] - 1-2 Weeks Disposition Disposition: Home, Self Care
[2021-04-30 06:12] VITALS: BP 156/62; PULSE 78; RESP 18
== END 2021-04-30 06:13 | disposition home or self-care (01) ==
PROVIDERS: Emergency Provider Emergency Medicine; PCP Family Medicine Geriatric Medicine; Visit Provider Emergency Medicine
DX: R51.9 Headache, unspecified (principal); E11.9 Type 2 diabetes mellitus without complications; S51.812A Laceration without foreign body of left forearm, initial encounter; S41.112A Laceration without foreign body of left upper arm, initial encounter; S51.811A Laceration without foreign body of right forearm, initial encounter; W18.09XA Striking against other object with subsequent fall, initial encounter; Y93.9 Activity, unspecified; Y92.019 Unspecified place in single-family (private) house as the place of occurrence of the external cause; I10 Essential (primary) hypertension; E78.5 Hyperlipidemia, unspecified; Z87.19 Personal history of other diseases of the digestive system; M19.90 Unspecified osteoarthritis, unspecified site; Z79.82 Long term (current) use of aspirin; Z79.01 Long term (current) use of anticoagulants; Z79.899 Other long term (current) drug therapy
CPT/HCPCS: 70450; 72125; 99282

== ENCOUNTER 2021-05-03 01:38 | Emergency (ER) | payer MEDICARE, SELFPAY ==
[2021-05-03 01:39] VITALS: BP 187/79; PULSE 117; RESP 20; TEMP 36.6; O2SAT 99; BMI 21.0
--- NOTE | 2021-05-03 01:43 | NURSING ---
labetolol 20mg ivp given and 0.2mg clonidine po
--- NOTE | 2021-05-03 01:58 | CT_ITS ---
STUDY: CT BRAIN WITHOUT CONTRAST REASON FOR EXAM: Female, 71 years old. head injury RADIATION DOSAGE (If Supplied By Facility): CTDIvol = ( 44.99 ) mGy, DLP = ( 796.11 ) mGycm TECHNIQUE: Transaxial CT imaging of the brain was performed without administration of intravenous contrast material. Individualized dose optimization techniques were used for this CT. COMPARISON: No relevant priors. FINDINGS: Normal soft tissue structures. Normal calvarium. Normal size ventricles and extra-axial spaces for the patient''s age. There are areas of decreased attenuation within the white matter tracts of the supratentorial brain, consistent with microvascular disease changes. Normal basal ganglia and thalami. Normal brainstem. Normal cerebellum. There is no intracranial hemorrhage. There are no findings of an acute ischemic infarction. Normal visualized paranasal sinuses. CT/Brain/Head without Contrast IMPRESSION: Chronic involutional changes of the brain. Electronically Signed: Jamaica Powers MD at 3:00 EST ,
[2021-05-03] MEDS: Ondansetron ODT 4 MG Tablet PO (02:17)
[2021-05-03] MEDS: morphine 10 MG/ML Syringe 8 MG IM (02:18)
--- NOTE | 2021-05-03 03:12 | EX.ED.UPPERE ---
HPI History of Present Illness Chief Complaint: Upper Extremity Injury Narrative Narrative: Patient is a 71-year-old female who takes Eliquis. She states that 4 days ago she lost her balance and fell and sustained skin tears/abrasions to both arms as well as bruising. She states she went and saw her family doctor who told her there is nothing we can do and advised her to care for the wounds as you would any type of cut. Patient states that she has been doing this but she has been having increased pain and she is worried about infection and secondary to this comes in for repeat evaluation. [facility] Medical History Abscess of right elbow Acute pancreatitis Arthritis Back problem Diabetes Elevated hemoglobin A1c Essential (primary) hypertension Hormone deficiency Hyperlipidemia Mass of skin of right elbow Seasonal allergies Type 2 diabetes mellitus Home Medications metoprolol tartrate 50 mg PO DAILY 03/06/19 [History Last Taken 02/17/21] Tresiba FlexTouch U-200 80 unit SUBCUT BID 01/21/21 [History Last Taken 02/17/21] aspirin [Aspirin Low Dose] 81 mg PO DAILY 02/17/21 [History Last Taken 02/17/21] lisinopril 10 mg PO DAILY 02/17/21 [History Last Taken 02/17/21] apixaban [Eliquis] 5 mg PO BID 03/08/21 [History Last Taken Unknown] diclofenac sodium [Voltaren Arthritis Pain] 2 g TOPICAL TID PRN PRN #100 g 04/02/21 [Rx Last Taken Unknown] oxycodone-acetaminophen [Percocet] 1 tab PO Q6H PRN 3 Days #12 tab 05/03/21 [Rx Last Taken Unknown] Allergy/AdvReac Type Severity Reaction Status Date / Time diphenhydramine Allergy Swelling Verified 04/30/21 05:02 [From Benadryl] Family History Unknown Breast cancer Colon cancer Myocardial infarction Hypertension Hyperlipidemia Father Heart disease Hypertension Mother Diabetes Hypertension Kidney disease Liver disease Other Arthritis Surgical History History of Social History household members: spouse Smoking Status: Never smoker alcohol intake: never substance use type: does not use what type of physical activity do you participate in: none ROS ROS ED Constitutional Constitutional ED: Denies chills or fever(s) ENT ENT ED: Denies sore throat Cardiovascular Cardiovascular: Denies chest pain Respiratory/Chest Respiratory/Chest: Denies cough or dyspnea Gastrointestinal Gastrointestinal: Denies abdominal pain, diarrhea, nausea or vomiting Genitourinary Genitourinary ED: Denies dysuria Musculoskeletal Musculoskeletal: Reports other Details: Positive bilateral arm pain ; Denies myalgias Integumentary Reports Abrasions; Denies rash Neurologic Neurologic: Denies headache(s) Hematologic/Lymphatic Hematologic/Lymphatic: Reports easy bleeding and easy bruising EXAM Physical Exam Const Vital Signs: 05/03/21 01:39 Temperature 97.8 F Temperature Source Temporal Pulse Rate 117 H Respiratory Rate 20 H Blood Pressure 187/79 H Blood Pressure Mean 115 Pulse Ox 99 Oxygen Delivery Method Room Air Positive well nourished and well developed General Appearance ED: well developed HEENT Reports moist mucous membranes HEENT Narrative: No signs of depressed or basilar skull fracture Eyes PERRL and EOMs intact bilaterally Neck full ROM and supple Neck Narrative: No bony deformity or step-off of the cervical spine no midline pain with palpation Resp normal respiratory effort and clear to auscultation bilaterally Cardio regular rate and regular rhythm GI non-tender, non-distended and no masses Auscultation: normoactive bowel sounds Palpation: soft Extremity Extremity Narrative: Patient has multiple areas of ecchymosis to the bilateral arms consistent with her report of recent fall. There are skin tears present to each arm as well however these have mild scabbing and granulation tissue present consistent with the report of them being 4 days old and no signs to suggest infection. There is no obvious bony deformity or joint effusion and patient has full active range of motion. Neuro oriented x3 and CN's II-XII intact bilaterally Sensorium / Orientation: alert Psych mental status grossly normal Skin no rashes or lesions noted Skin Narrative: Ecchymotic and skin tear lesions to bilateral arms as documented above MDM MDM MDM Narrative Medical decision making narrative: Patient presented to the ER 4 days after her reported fall which she states was mechanical in nature. She has no signs of bony injury or joint effusion so I felt no need for x-rays of the extremities. As she does take Eliquis and reported a fall I had concern about a underlying skull fracture/brain bleed so a CT was obtained. This revealed chronic changes with no acute traumatic finding. Therefore at this time patient has reported a mechanical fall. There are no signs of brain bleed secondary to this especially with her Eliquis use and she has no signs of secondary infection or bony injury. Therefore there is no need for further work-up and patient was instructed to care for the skin tears with [id number] medications I will put her on a few days worth of pain pills secondary to her persistent pain from the fall but otherwise she is safe for discharge. Radiography Diagnostic Testing: Clinical Impression(s) from Imaging Studies Brain CT 05/03/21 01:58 IMPRESSION: Chronic involutional changes of the brain. Electronically Signed: Jamaica Powers MD at 3:00 EST Reading Location ID and State: [address] [place] [address] Tel , Service support , Discharge Plan Triage Chief Complaint: Upper Extremity Injury ED Provider: Johnny Fitzpatrick Dx/Rx/DC Orders Clinical Impression: Contusion of multiple sites, Current use of mcfp anticoagulation, Skin tear Instructions: ED Contusion, Upper Extremity, ED Skin Avulsion Prescriptions: New oxycodone-acetaminophen [Percocet] 5-325 mg tablet 1 tab PO Q6H PRN (Reason: pain) 3 Days Qty: 12 RF: 0 No Action metoprolol tartrate 50 MG tablet 50 mg PO DAILY RF: 0 Tresiba FlexTouch U-200 200 unit/mL (3 mL) insulin pen 80 unit SUBCUT BID RF: 0 aspirin [Aspirin Low Dose] 81 mg Tablet,Delayed Release (Dr/Ec) 81 mg PO DAILY RF: 0 lisinopril 10 mg tablet 10 mg PO DAILY RF: 0 Eliquis 5 mg tablet 5 mg PO BID RF: 0 diclofenac sodium [Voltaren Arthritis Pain] 1 % gel 2 g topical TID PRN PRN (Reason: pain) Qty: 100 RF: 2 Primary Care Provider: Alfosno Carlson Chi Referrals: Alfonso Carlson Chi, MD [Primary Care Provider] - Disposition Disposition: Home, Self Care Discharge Date/Time: 05/03/21 03:30
[2021-05-03 03:28] VITALS: BP 145/78; PULSE 74; RESP 18; O2SAT 97
== END 2021-05-03 03:30 | disposition home or self-care (01) ==
PROVIDERS: Emergency Provider Emergency Medicine; PCP Family Medicine Geriatric Medicine; Visit Provider Emergency Medicine
DX: S40.022A Contusion of left upper arm, initial encounter (principal); E11.9 Type 2 diabetes mellitus without complications; Z79.4 Long term (current) use of insulin; S40.021A Contusion of right upper arm, initial encounter; S41.111A Laceration without foreign body of right upper arm, initial encounter; S41.112A Laceration without foreign body of left upper arm, initial encounter; I10 Essential (primary) hypertension; Z79.01 Long term (current) use of anticoagulants; W19.XXXA Unspecified fall, initial encounter; Z79.82 Long term (current) use of aspirin; Z79.899 Other long term (current) drug therapy
CPT/HCPCS: 70450; 96372; 99283

== ENCOUNTER 2021-06-10 07:10 | Outpatient (CLI) | payer MEDICARE, SELFPAY ==
[2021-06-10 08:38] LABS: CORTISOL SERUM < 0.50 ug/dL (3.44-22.45)
== END 2021-06-10 23:59 | disposition home or self-care (01) ==
LOC: LAB 07:11
PROVIDERS: PCP Family Medicine Geriatric Medicine; Referring Provider Family Medicine Geriatric Medicine; Visit Provider Family Medicine Geriatric Medicine
DX: E24.9 Cushing's syndrome, unspecified (principal)
CPT/HCPCS: 36415; 82533

== ENCOUNTER 2021-06-15 14:48 | Emergency (ER) | payer MEDICARE, SELFPAY ==
[2021-06-15 14:49] VITALS: BP 153/73; PULSE 89; RESP 14; TEMP 36.8; O2SAT 96; BMI 25.7
--- NOTE | 2021-06-15 15:24 | EKG12_ITS ---
Test Reason : CP Blood Pressure : / mmHG Vent. Rate : 079 BPM Atrial Rate : 079 BPM P-R Int : 116 ms QRS Dur : 080 ms QT Int : 396 ms P-R-T Axes : 025 -25 070 degrees QTc Int : 454 ms Normal sinus rhythm Leftward axis Confirmed by ZION KLEIN, MAICOL ([id number]), web content editor CHECO VELASCO ([id number]) on 06/18/2021 10:01:20 AM Referred By: ALIYAH/ESTUARDO Confirmed By:MAICOL DONOVAN MD
--- NOTE | 2021-06-15 15:28 | ED.VIS.CHEST ---
HPI History of Present Illness Chief Complaint: Chest Pain Informant: patient and spouse/S.O. Narrative Narrative: Patient presents with lower sternal pain that started about 2-1/2 hours ago. She describes it is well localized and sharp. It does not radiate anywhere. It is not and has not had any time been associated with nausea, vomiting, lightheadedness, diaphoresis or shortness of breath. It is sore all the time but occasionally if she moves it gets very sharp. No back pain. No radiation to the abdomen. She has had this before but not regularly. She thinks she had a year ago and may be one other time. She does not recall the specifics. She also did note some palpitations today but that was after the pain started and did not seem to initiate the symptoms. It sounds like she may have a history of intermittent A. fib although I cannot verify that. She states she is on Eliquis and is taking it. She is also on Tresiba and metoprolol and lisinopril for blood pressure. She did fall and hurt herself but it was about 2 or so weeks ago and she does not think she hurt her chest at the time. She is not having any other symptoms. Other than the lower chest pain she feels fine. [facility] Medical History Abscess of right elbow Acute pancreatitis Arthritis Back problem Diabetes Elevated hemoglobin A1c Essential (primary) hypertension Hormone deficiency Hyperlipidemia Mass of skin of right elbow Seasonal allergies Type 2 diabetes mellitus Home Medications metoprolol tartrate 50 mg PO DAILY 03/06/19 [History Last Taken 02/17/21] Tresiba FlexTouch U-200 80 unit SUBCUT BID 01/21/21 [History Last Taken 02/17/21] aspirin [Aspirin Low Dose] 81 mg PO DAILY 02/17/21 [History Last Taken 02/17/21] lisinopril 10 mg PO DAILY 02/17/21 [History Last Taken 02/17/21] apixaban [Eliquis] 5 mg PO BID 03/08/21 [History Last Taken Unknown] diclofenac sodium [Voltaren Arthritis Pain] 2 g TOPICAL TID PRN PRN #100 g 04/02/21 [Rx Last Taken Unknown] hydrocodone-acetaminophen 1 tab PO Q6H PRN 3 Days #12 tab 06/15/21 [Rx Last Taken Unknown] Allergy/AdvReac Type Severity Reaction Status Date / Time diphenhydramine Allergy Swelling Verified 04/30/21 05:02 [From Benadryl] Family History Unknown Breast cancer Colon cancer Myocardial infarction Hypertension Hyperlipidemia Father Heart disease Hypertension Mother Diabetes Hypertension Kidney disease Liver disease Other Arthritis Surgical History History of Social History household members: spouse Smoking Status: Never smoker alcohol intake: never substance use type: does not use what type of physical activity do you participate in: none ROS ROS ED Constitutional Constitutional ED: Denies chills, fever(s) or sweats Eyes Eyes: Denies change in vision ENT ENT ED: Denies rhinorrhea or sore throat Cardiovascular Cardiovascular: Reports chest pain, palpitations and racing heartbeat Respiratory/Chest Respiratory/Chest: Denies cough or dyspnea Gastrointestinal Gastrointestinal: Denies abdominal pain, nausea or vomiting Genitourinary Genitourinary ED: Denies hematuria Musculoskeletal Musculoskeletal: Denies arthralgias, back pain, myalgias or neck pain Integumentary Denies rash Neurologic Neurologic: Denies headache(s), paresthesias or weakness Psychiatric Psychiatric: Denies anxiety or depression Endocrine Endocrinology: Denies polydipsia or polyuria Hematologic/Lymphatic Hematologic/Lymphatic: Reports easy bleeding and easy bruising Allergic/Immunologic Allergic/Immunologic ED: Denies urticaria EXAM Physical Exam Const Vital Signs: 06/15/21 14:49 06/15/21 14:53 06/15/21 15:33 Temperature 98.2 F Temperature Source Oral Pulse Rate 89 Respiratory Rate 14 Respiratory Effort Normal Blood Pressure 153/73 H Blood Pressure Mean 99 Pulse Ox 96 97 Oxygen Delivery Method Room Air Room Air 06/15/21 15:48 06/15/21 16:00 06/15/21 17:11 Temperature Temperature Source Pulse Rate 87 76 76 Respiratory Rate 18 18 14 Respiratory Effort Blood Pressure 145/78 H 125/52 H 111/63 Blood Pressure Mean 100 76 79 Pulse Ox 96 94 95 Oxygen Delivery Method Room Air Room Air Room Air Positive well nourished and well developed General Appearance ED: well developed and NAD HEENT Reports moist mucous membranes Eyes General Eye ED: Negative for pale conjunctiva or scleral icterus Neck no JVD Chest Wall Chest Narrative: Chest looks normal. There is no erythema swelling or lesions. However she does have clearly reproducible chest pain to the left and right of the lower sternum. There is not as much tenderness in the mid point. I feel no crepitance. Patient can lift her arm up and down without pain but when she moves or adjust in bed it seems to initiate a spike pain that lasts for a few moments. Resp normal respiratory effort and clear to auscultation bilaterally Effort and Inspection: Negative for respiratory distress Cardio regular rate and regular rhythm Rate: other Other Details: Heart rate is regular at about 79 on the monitor and appears to be in sinus. No ectopy. GI normal to inspection, nondistended, normoactive bowel sounds and soft to palpation GI Narrative: She has signs of typical contusions being on Eliquis but no marked abnormalities. No edema. Back/Spine no thoracic nor lumbar tenderness Extremity normal to inspection General Extremety ED: Negative for edema, pulses abnormal or tenderness General Extremity: Negative for edema or pulses abnormal Neuro Neuro Narrative: Small contusions consistent with Eliquis use. Sensorium / Orientation: awake and alert Psych mental status grossly normal MDM MDM MDM Narrative Medical decision making narrative: Patient's blood work shows minimal elevation of her white count which is a nonspecific finding. Electrolytes are overall unremarkable. Minimal decrease potassium that should self correct. Troponin is normal at 12 and repeat is unchanged at 12. Chest x-ray shows no acute process. EKG is overall unremarkable. Patient did do better with pain meds. However every time she moves or twists it hurts. It is still in the exact same spot. It has not radiated or migrated at any time. It is reproducible with palpation. I do not think she needs CT scan of the chest for further work-up. This does not sound cardiac and she has 2 - troponins. I think she is okay to go home and she would prefer this. She has used Vicodin before without problems. She does evidently have frequent orthopedic areas of pain. But she is not on long-term pain meds. We discussed reasons to return. Lab Data Attestation: I reviewed the patient's lab results. Labs: Laboratory Results - last 24 hr 0306/15/21 06/15/21 15:00 15:00 17:00 WBC 12.1 H RBC 4.68 Hgb 13.3 Hct 41.6 MCV 88.9 MCH 28.4 MCHC 32.0 RDW Std Deviation 45.1 H RDW Coeff of Melvina 13.9 Plt Count 325 MPV 9.5 Immature Gran % (Auto) 0.400 Neut % (Auto) 46.1 L Lymph % (Auto) 43.8 H [place] % (Auto) 8.8 Eos % (Auto) 0.6 Baso % (Auto) 0.3 Absolute Neuts (auto) 5.6 Absolute Lymphs (auto) 5.28 H Nucleated RBC % 0 Differential Comment Platelet Estimate ADEQUATE RBC Morphology NORM C+C Sodium 139 Potassium 3.4 L Chloride 106 Carbon Dioxide 27.0 Anion Gap 6 BUN 16 Creatinine 0.75 Estim Creat Clear Calc 40.22 Est GFR (MDRD) Af Amer 98 Est GFR (MDRD) Non-Af 81 BUN/Creatinine Ratio 21.3 H Glucose 88 Calcium 9.2 Troponin I High Sens 12 12 Radiography Diagnostic Testing: Clinical Impression(s) from Imaging Studies Chest X-Ray 06/15/21 15:35 IMPRESSION: Nonacute portable x-ray examination of the chest. Electronically Signed: Dante Barajas MD (Brooks) at 15:54 EDT Reading Location ID and State: [address] [place] [address] , Service support , EKG Initial EKG: Comments: EKG done for chest pain read by me shows normal sinus rhythm with overall rate of 79. No ectopy. No acute ST elevation or depression. WA interval, QRS duration and QTc is normal. This is similar to prior except does not have any dysrhythmia. I did look at multiple priors. There were some with bigeminy. Discharge Plan Triage Chief Complaint: Chest Pain ED Provider: Mark Villar Dx/Rx/DC Orders Clinical Impression: Anterior chest wall pain Instructions: ED Chest Pain, Uncertain Cause, ED Chest Wall Pain, Costochondritis Prescriptions: New hydrocodone-acetaminophen 5-325 mg tablet 1 tab PO Q6H PRN (Reason: pain) 3 Days Qty: 12 RF: 0 No Action metoprolol tartrate 50 MG tablet 50 mg PO DAILY RF: 0 Tresiba FlexTouch U-200 200 unit/mL (3 mL) insulin pen 80 unit SUBCUT BID RF: 0 aspirin [Aspirin Low Dose] 81 mg Tablet,Delayed Release (Dr/Ec) 81 mg PO DAILY RF: 0 lisinopril 10 mg tablet 10 mg PO DAILY RF: 0 Eliquis 5 mg tablet 5 mg PO BID RF: 0 diclofenac sodium [Voltaren Arthritis Pain] 1 % gel 2 g topical TID PRN PRN (Reason: pain) Qty: 100 RF: 2 Primary Care Provider: Alfonso Carlson Chi Referrals: Alfonso Carlson Chi, MD [Primary Care Provider] - 3-5 Days if not improving Disposition Disposition: Home, Self Care
[2021-06-15] MEDS: Morphine 4 MG/ML Syringe IV ×2 (15:31→18:34)
[2021-06-15] MEDS: Ondansetron 4 MG/2 ML Vial IV (15:32)
[2021-06-15 15:33] VITALS: O2SAT 97
--- NOTE | 2021-06-15 15:35 | RAD_ITS ---
STUDY: X-RAY CHEST REASON FOR EXAM: Female, 71 years old. midsternal chest pain started while in shower this am. states hx of arrhythmia and chest/rib arthritis TECHNIQUE: AP COMPARISON: 03/08/2021 FINDINGS: EKG leads project over the chest. Right hemidiaphragm is elevated. There is no demonstrated pleural abnormality. Normal size heart. Normal mediastinum and coco. Normal visualized pulmonary arteries. There is atherosclerotic calcification of the aortic arch with tortuosity. No acute bony process. There is no demonstrated abnormality of the visualized soft tissue structures of the upper abdomen. RAD/Chest 1 View (Portable) IMPRESSION: Nonacute portable x-ray examination of the chest. Electronically Signed: Dante Barajas MD ([place]oks) at 15:54 EDT ,
[2021-06-15 15:40] LABS: Absolute Lymphocyte Count 5.28 X10^3/uL (0.83-4.51); Absolute Neutrophil Count 5.6 X10^3/uL (2.0-7.7); Basophil# 0.04 X10^3/uL; Basophil% 0.3 % (0-1); Eosinophil# 0.07 X10^3/uL; Eosinophils% 0.6 % (0-5); Hematocrit 41.6 % (37-47); Hemoglobin 13.3 g/dL (12.0-15.0); Lymphocyte # 5.28 X10^3/ul (0.83-4.51); Lymphocyte % 43.8 % (19-41); Mean Corpuscular Hgb 28.4 pg (27.0-32.0); Mean Corpuscular Volume 88.9 fL (81-99); Mean Platelet Vol. 9.5 fl (6.2-12.0); Monocyte# 1.06 X10^3/uL; Monocyte% 8.8 % (0-10); NRBC Flagged by Analyzer 0 % (0-5); Neutrophil # 5.55 X10^3/uL (2.7-7.7); Neutrophil % 46.1 % (47-70); POSITIVE DIFFERENTIAL YES; Platelet Count 325 K/mm3 (150-450); RBC Distribution Width CV 13.9 % (11.6-14.6); RBC Distribution Width SD 45.1 fl (35.1-43.9); Red Blood Count 4.68 M/mm3 (4.2-5.4); White Blood Count 12.1 K/mm3 (4.4-11.0)
[2021-06-15 15:48] VITALS: BP 145/78; PULSE 87; RESP 18; O2SAT 96
[2021-06-15 15:55] LABS: Anion Gap 6 (5-15); BUN 16 mg/dL (7-18); BUN/Creat Ratio 21.3 RATIO (10-20); Calcium,Total 9.2 mg/dL (8.5-10.1); Chloride 106 mmol/L (98-107); Creatinine, Serum 0.75 mg/dL (0.55-1.02); EST Glomerular Filtration Rate 81 mL/min (>60); Est Glom Filt Rate - Afr Amer 98 mL/min (>60); Estimated Creatinine Clearance 40.22 ml/min; Glucose 88 mg/dL (74-106); Potassium 3.4 mmol/L (3.5-5.1); Sodium Level 139 mmol/L (136-145); Troponin-I HS 12 pg/mL (3.0-54.0)
[2021-06-15 16:00] VITALS: BP 125/52; PULSE 76; RESP 18; O2SAT 94
[2021-06-15 16:02] LABS: Differential Indicated SCAN CRITERIA MET
[2021-06-15 16:11] LABS: Platelet Estimate ADEQUATE (ADEQ); Red Cell Morphology NORM C+C NORMAL (NORM C&C)
[2021-06-15 17:11] VITALS: BP 111/63; PULSE 76; RESP 14; O2SAT 95
[2021-06-15 17:37] LABS: Troponin-I HS 12 pg/mL (3.0-54.0)
[2021-06-15 18:48] VITALS: BP 151/78; PULSE 81; RESP 14; O2SAT 99
== END 2021-06-15 18:48 | disposition home or self-care (01) ==
PROVIDERS: Emergency Provider Emergency Medicine; PCP Family Medicine Geriatric Medicine; Visit Provider Emergency Medicine
DX: R07.89 Other chest pain (principal); I10 Essential (primary) hypertension; Z79.82 Long term (current) use of aspirin; Z79.899 Other long term (current) drug therapy; Z79.01 Long term (current) use of anticoagulants
CPT/HCPCS: 71045; 80048; 84484; 85025; 93005; 96374; 96375; 96376; 99285; A4216; J2405

== ENCOUNTER 2021-06-26 14:43 | Outpatient (CLI) | payer MEDICARE, SELFPAY ==
--- NOTE | 2021-06-26 14:58 | BI_ITS ---
MAMMOGRAPHY - BILATERAL SCREENING REASON FOR EXAM: Female, 71 years old. Routine annual screening examination. PERTINENT HISTORY: Daughter with breast cancer. TECHNIQUE: Digital bilateral breast amanda (3D mammographic acquisition) in the CC and MLO projections. 2-D mediolateral oblique (MLO) and craniocaudad (CC) views of both breasts were obtained. CAD: Full Field Digital Mammography with Computer Added Detection was performed. COMPARISON: Comparison is made with prior study of 06/11/2019 and 06/09/2018. FINDINGS: Breast Composition: The breasts are heterogeneously dense, which may obscure small masses. There are no dominant masses or suspicious calcifications. Stable bilateral secretory calcifications. No other significant abnormalities are identified. There has been no significant change since the prior study. BI/SCRN MAMM (CAD)W/AMANDA BILAT IMPRESSION: Stable bilateral screening mammogram. Yearly follow-up mammogram recommended. (A) ASSESSMENT CATEGORY: BIRADS Category 2: Benign. A letter regarding these results will be sent to the patient by the facility within 30 days. Approximately 10% of breast cancers are not detected by mammography. A normal mammogram should not delay biopsy of a clinically suspicious abnormality. [id number] Electronically Signed: Al Thacker MD at 8:39 EDT ,
== END 2021-06-26 23:59 | disposition home or self-care (01) ==
LOC: OPBI 14:57
PROVIDERS: PCP Family Medicine Geriatric Medicine; Referring Provider Family Medicine Geriatric Medicine; Visit Provider Family Medicine Geriatric Medicine
DX: Z12.31 Encounter for screening mammogram for malignant neoplasm of breast (principal)
CPT/HCPCS: 77063; 77067

== ENCOUNTER 2021-07-20 11:19 | Outpatient (CLI) | payer MEDICARE, SELFPAY ==
--- NOTE | 2021-07-20 11:36 | RAD_ITS ---
INDICATION: SHORT OF BREATH EXAMINATION/TECHNIQUE: X-RAY - XR Chest 2 Views COMPARISON: 06/15/2021. FINDINGS: LINES/DEVICES: None. LUNGS: Peribronchial cuffing and bilateral hilar prominence demonstrate no change. No consolidation, edema or effusion. No pneumothorax. MEDIASTINUM AND CARDIOVASCULAR STRUCTURES: Cardiac silhouette not enlarged. Central airways and mediastinal contour are unremarkable. BONES AND SOFT TISSUES: Unremarkable. RAD/Chest PA and Lateral IMPRESSION: No radiographic evidence of acute cardiopulmonary disease. Electronically Signed: Nate Monteiro MD at 12:06 EDT ,
--- NOTE | 2021-07-20 11:40 | RAD_ITS ---
INDICATION: ABD PAIN EXAMINATION/TECHNIQUE: X-RAY - XR Abdomen 1 View COMPARISON: 01/26/2021 FINDINGS: BOWEL GAS PATTERN: Abundance of stool in the large bowel visualized, superimposition of bowel over the renal beds limits evaluation. Non-obstructive bowel gas pattern. No bowel or stomach distention. FREE AIR: Not assessed on a single supine view. ORGANOMEGALY: Not seen. CALCIFICATIONS: No abnormal calcifications observed. Pelvic calcifications consistent with phleboliths. Vascular calcifications seen. LOWER CHEST: No acute pathology. BONES AND SOFT TISSUES: No acute pathology. RAD/Abdomen Single View IMPRESSION: Abundance of stool in the large bowel. No evidence of acute abdominal pathology. Electronically Signed: Nate Monteiro MD at 12:08 EDT ,
[2021-07-20 12:25] LABS: Absolute Lymphocyte Count 5.02 X10^3/uL (0.83-4.51); Absolute Neutrophil Count 5.8 X10^3/uL (2.0-7.7); Basophil# 0.09 X10^3/uL; Basophil% 0.7 % (0-1); Eosinophil# 0.17 X10^3/uL; Eosinophils% 1.4 % (0-5); Hematocrit 44.1 % (37-47); Lymphocyte # 5.02 X10^3/ul (0.83-4.51); Lymphocyte % 41.2 % (19-41); Mean Corp Hgb Conc 31.7 g/dL (32-36); Mean Corpuscular Hgb 26.7 pg (27.0-32.0); Mean Corpuscular Volume 84.2 fL (81-99); Mean Platelet Vol. 9.9 fl (6.2-12.0); Monocyte# 1.03 X10^3/uL; Monocyte% 8.5 % (0-10); NRBC Flagged by Analyzer 0 % (0-5); Neutrophil # 5.79 X10^3/uL (2.7-7.7); Neutrophil % 47.6 % (47-70); POSITIVE DIFFERENTIAL YES; Platelet Count 408 K/mm3 (150-450); RBC Distribution Width CV 14.3 % (11.6-14.6); RBC Distribution Width SD 43.9 fl (35.1-43.9); Red Blood Count 5.24 M/mm3 (4.2-5.4); White Blood Count 12.2 K/mm3 (4.4-11.0)
[2021-07-20 12:36] LABS: Differential Indicated SCAN CRITERIA MET
[2021-07-20 12:41] LABS: Anion Gap 8 (5-15); BUN 16 mg/dL (7-18); BUN/Creat Ratio 19.3 RATIO (10-20); CPK Total, Creatine Kinase 68 U/L (26-192); Chloride 103 mmol/L (98-107); Creatinine, Serum 0.83 mg/dL (0.55-1.02); EST Glomerular Filtration Rate 72 mL/min (>60); Est Glom Filt Rate - Afr Amer 87 mL/min (>60); Glucose 125 mg/dL (74-106); Potassium 4.3 mmol/L (3.5-5.1); Sodium Level 137 mmol/L (136-145); Troponin-I HS 10 pg/mL (3.0-54.0)
[2021-07-20 12:56] LABS: BNP,B-Type NATRIURETIC PEPTIDE 111.5 pg/mL (0-100)
[2021-07-22 10:33] LABS: Myoglobin, Serum < 21 ng/mL (25-58)
== END 2021-07-20 23:59 | disposition home or self-care (01) ==
LOC: POLAB3 11:20 → RAD 11:34
PROVIDERS: PCP Family Medicine Geriatric Medicine; Referring Provider Family Medicine Geriatric Medicine; Visit Provider Family Medicine Geriatric Medicine
DX: R06.02 Shortness of breath (principal); R10.9 Unspecified abdominal pain
CPT/HCPCS: 36415; 71046; 74018; 80048; 82550; 83874; 83880; 84484; 85025

== ENCOUNTER 2021-08-11 19:22 | Emergency (ER) | payer MEDICARE, SELFPAY ==
[2021-08-11 19:24] VITALS: BP 125/75; PULSE 56; RESP 15; TEMP 36.3; O2SAT 96; BMI 21.9
--- NOTE | 2021-08-11 19:38 | EKG12_ITS ---
Test Reason : CP Blood Pressure : / mmHG Vent. Rate : 059 BPM Atrial Rate : 059 BPM P-R Int : 132 ms QRS Dur : 076 ms QT Int : 434 ms P-R-T Axes : 018 -28 071 degrees QTc Int : 429 ms Sinus bradycardia Otherwise normal ECG Confirmed by BETZY KLEIN, CATHRYN ([id number]), editor dictionary CHECO VELASCO ([id number]) on 08/12/2021 12:53:42 PM Referred By: Confirmed By:CATHRYN BO MD
--- NOTE | 2021-08-11 19:46 | EX.ED.DYSGE1 ---
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 States that she has not felt well today. Says she feels decree sensation from her neck down on both sides. Denies any fall or trauma. She denies any motor loss or weakness to her arms and legs. This all started several hours ago. Also states she is having lower chest discomfort and back pain. states that she has those frequently and has chronic back pain. She has mild nausea but no vomiting. Prior similar symptoms: Yes Recent Illness/Hospitalization: No PFSH PFS Medical History Abscess of right elbow Acute pancreatitis Arthritis Back problem Diabetes Elevated hemoglobin A1c Essential (primary) hypertension Hormone deficiency Hyperlipidemia Mass of skin of right elbow Seasonal allergies Type 2 diabetes mellitus Home Medications metoprolol tartrate 50 mg PO DAILY 03/06/19 [History Last Taken 02/17/21] Tresiba FlexTouch U-200 80 unit SUBCUT BID 01/21/21 [History Last Taken 02/17/21] aspirin [Aspirin Low Dose] 81 mg PO DAILY 02/17/21 [History Last Taken 02/17/21] lisinopril 10 mg PO DAILY 02/17/21 [History Last Taken 02/17/21] apixaban [Eliquis] 5 mg PO BID 03/08/21 [History Last Taken Unknown] diclofenac sodium [Voltaren Arthritis Pain] 2 g TOPICAL TID PRN PRN #100 g 04/02/21 [Rx Last Taken Unknown] hydrocodone-acetaminophen 1 tab PO Q6H PRN 3 Days #12 tab 06/15/21 [Rx Last Taken Unknown] Allergy/AdvReac Type Severity Reaction Status Date / Time diphenhydramine Allergy Swelling Verified 04/30/21 05:02 [From Benadryl] Family History Unknown Breast cancer Colon cancer Myocardial infarction Hypertension Hyperlipidemia Father Heart disease Hypertension Mother Diabetes Hypertension Kidney disease Liver disease Other Arthritis Surgical History History of Social History household members: spouse Smoking Status: Never smoker alcohol intake: never substance use type: does not use what type of physical activity do you participate in: none ROS ROS ED ROS Narrative Generalized weakness. Lower chest pain. Review of Systems ROS Unobtainable: Denies due to encephalopathy Constitutional Constitutional ED: Denies chills or fever(s) Eyes Eyes: Denies change in vision ENT ENT ED: Denies ear pain, rhinorrhea or sore throat Cardiovascular Cardiovascular: Reports chest pain; Denies palpitations Respiratory/Chest Respiratory/Chest: Denies cough, dyspnea or sputum Gastrointestinal Gastrointestinal: Reports nausea; Denies abdominal pain, constipation, diarrhea, melena or vomiting Genitourinary Genitourinary ED: Denies dysuria or hematuria Musculoskeletal Musculoskeletal: Denies myalgias Integumentary Denies rash Neurologic Neurologic: Denies headache(s) Psychiatric Psychiatric: Denies depression Endocrine Endocrinology: Denies polyuria Allergic/Immunologic Allergic/Immunologic ED: Denies urticaria EXAM Physical Exam Narrative Exam Narrative: 31-year-old female no acute distress vital signs stable afebrile. Does not septic or toxic. H EENT exam unremarkable. Moist with membranes. Neck nontender. Lungs clear to auscultation. Heart regular rhythm no murmur rate about 60. Chest were nontender. Abdomen soft nontender normal bowel sounds no peritoneal signs. No pulsatile mass. Moving all 4 extremities. 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 Normal sensation. Dorsi plantarflexion intact. No cauda equina. Able to lift either leg off the bed. Normal sensation. Neurologically she is awake and alert with no focal motor or sensory deficits Const Vital Signs: 08/11/21 19:24 08/11/21 19:32 08/11/21 19:49 Temperature 97.4 F L Temperature Source Temporal Pulse Rate 56 L Respiratory Rate 15 Respiratory Effort Short of Breath Blood Pressure 125/75 H Blood Pressure Mean 91 Pulse Ox 96 99 Oxygen Delivery Method Room Air Room Air 08/11/21 20:24 Temperature Temperature Source Pulse Rate 57 L Respiratory Rate 16 Respiratory Effort Blood Pressure 157/60 H Blood Pressure Mean 92 Pulse Ox 95 Oxygen Delivery Method Room Air Positive well nourished and well developed; Negative for cachectic, contractures or unkempt General Appearance ED: well developed and NAD; Negative for unkempt, cachectic, contractures, cyanotic, diaphoretic or pallor Nutritional Appearance: Negative for cachectic HEENT Reports moist mucous membranes Negative for trauma or tenderness Eyes PERRL and EOMs intact bilaterally General Eye ED: Negative for pale conjunctiva or scleral icterus Neck no lymphadenopathy, supple and no JVD General: Negative for tenderness Chest Wall inspection of chest normal and palpation of chest normal Resp normal respiratory effort and clear to auscultation bilaterally Effort and Inspection: Negative for pain with movement Auscultation: Negative for rales, rhonchi or wheezes Cardio regular rate, regular rhythm, S1 normal heart sound, S2 normal heart sound and no murmurs GI normal to inspection, nondistended, normoactive bowel sounds, non-tender, non-distended and no masses Inspection: Negative for abdominal distention Auscultation: normoactive bowel sounds Palpation: soft; Negative for tender, guarding or rebound tenderness present Back/Spine no CVA tenderness Cervical Spine: Negative for cervical spine tenderness Thoracic Spine / Upper Back: Negative for thoracic spinal tenderness Extremity normal to inspection General Extremety ED: Negative for edema or tenderness General Extremity: Negative for edema Neuro oriented x3, CN's II-XII intact bilaterally and no sensory deficits noted Sensorium / Orientation: alert; Negative for orientation impaired, lethargic or stuporous Sensory Exam: No sensory level loss detected Motor Exam: strength 5/5 throughout; Negative for general weakness Psych mental status grossly normal Appearance: Negative for unkempt Attitude: No agitated Mood & Affect: Negative for depressed, anxious or tearful Skin no rashes or lesions noted and no wounds General Skin Exam: Negative for jaundice or pallor MDM MDM MDM Narrative Medical decision making narrative: Older female with generalized weakness and atypical chest pain. She undergo cardiac work-up. She has had pancreatitis before I will check a lipase but I have a low suspicion is being pancreatitis is low. She has a completely normal neurologic exam with normal motor strength both upper and lower extremities and sensation. Repeat exam at 9:04 PM patient doing well. Feels improved. We went over all of her test results. They are comfortable being discharged to home with outpatient follow-up with her primary care physician Dr. Carlson Lab Data Attestation: I reviewed the patient's lab results. Lab results narrative: CBC shows a white count 8. H&H 13 and 41. Platelets 311. Electrolytes unremarkable gap of 6 BUN of 25 creatinine 0.9. Glucose 258. High-sensitivity troponin 10 and lipase normal 179. Labs: Laboratory Results - last 24 hr 08/11/21 08/11/21 19:49 19:49 WBC 8.7 RBC 4.85 Hgb 13.2 Hct 41.5 MCV 85.6 MCH 27.2 MCHC 31.8 L RDW Std Deviation 45.4 H RDW Coeff of Melvina 14.7 H Plt Count 311 MPV 10.1 Immature Gran % (Auto) 0.200 Neut % (Auto) 49.0 Lymph % (Auto) 37.9 [place] % (Auto) 10.9 H Eos % (Auto) 1.4 Baso % (Auto) 0.6 Absolute Neuts (auto) 4.3 Absolute Lymphs (auto) 3.30 Nucleated RBC % 0 Sodium 137 Potassium 4.4 Chloride 104 Carbon Dioxide 27.0 Anion Gap 6 BUN 25 H Creatinine 0.93 Estim Creat Clear Calc 43.25 Est GFR (MDRD) Af Amer 76 Est GFR (MDRD) Non-Af 63 BUN/Creatinine Ratio 26.9 H Glucose 258 H Calcium 9.8 Troponin I High Sens 10 Lipase 179 Radiography Chest X-Ray - ED: 1 View, Read by ED Physician, Heart, Lungs, Mediastinum, Bony Structures, No Acute Disease and Chronic Changes Diagnostic Testing: Clinical Impression(s) from Imaging Studies Chest X-Ray 08/11/21 20:02 IMPRESSION: Stable, nonacute portable x-ray examination of the chest. Electronically Signed: Dante Barajas MD (Brooks) at 20:21 EDT Reading Location ID and State: [facility] / [place] , Service support , Chest x-ray, portable, single view shows no acute abnormality interpreted by myself and radiologist. Rhythm Strip Rhythm Strip: Sinus bradycardia rate of 59. Ectopy: None EKG Initial EKG: Attestation: I personally reviewed and interpreted this EKG as follows: Interpretation: Sinus Rhythm and Sinus Bradycardia Comments: Sinus bradycardia rate of 59 no acute signs of LA nor ischemia. No ST elevation. No depression. Discharge Plan Triage Chief Complaint: Weakness ED Provider: Dominguez Zavala Dx/Rx/DC Orders Clinical Impression: Weakness, Chronic chest pain, History of diabetes mellitus, Chronic anticoagulation Instructions: ED Weakness (Uncertain Cause) Prescriptions: No Action metoprolol tartrate 50 MG tablet 50 mg PO DAILY RF: 0 Tresiba FlexTouch U-200 200 unit/mL (3 mL) insulin pen 80 unit SUBCUT BID RF: 0 aspirin [Aspirin Low Dose] 81 mg Tablet,Delayed Release (Dr/Ec) 81 mg PO DAILY RF: 0 lisinopril 10 mg tablet 10 mg PO DAILY RF: 0 Eliquis 5 mg tablet 5 mg PO BID RF: 0 diclofenac sodium [Voltaren Arthritis Pain] 1 % gel 2 g topical TID PRN PRN (Reason: pain) Qty: 100 RF: 2 hydrocodone-acetaminophen 5-325 mg tablet 1 tab PO Q6H PRN (Reason: pain) 3 Days Qty: 12 RF: 0 Primary Care Provider: Alfonso Carlson Chi Referrals: Alfonso Carlson Chi, MD [Primary Care Provider] - As soon as possible Activity Restrictions/Additional Instructions: Your test today were unremarkable. No specific cause for your generalized weakness and not feeling well. Follow-up with your primary care physician. Return if worse. Disposition Disposition: Home, Self Care
[2021-08-11 19:49] VITALS: O2SAT 99
[2021-08-11] MEDS: Ondansetron 4 MG/2 ML Vial IV (19:51)
[2021-08-11] MEDS: Aspirin 81 MG TAB.CHEW 324 MG PO (19:51)
[2021-08-11] MEDS: Morphine 4 MG/ML Syringe IV (19:51)
--- NOTE | 2021-08-11 20:02 | RAD_ITS ---
STUDY: X-RAY CHEST REASON FOR EXAM: Female, 71 years old. chest pain TECHNIQUE: AP COMPARISON: 07/20/2021 FINDINGS: Stable elevated right hemidiaphragm. No airspace consolidation. There is no demonstrated pleural abnormality. Normal size heart. Normal mediastinum and coco. Normal visualized pulmonary arteries. Normal visualized aortic arch and descending thoracic aorta. Normal visualized thoracic spine. Normal visualized ribs, clavicles, and shoulders. There is no demonstrated abnormality of the visualized soft tissue structures of the upper abdomen. RAD/Chest 1 View (Portable) IMPRESSION: Stable, nonacute portable x-ray examination of the chest. Electronically Signed: Dante Barajas MD ([place]) at 20:21 EDT ,
[2021-08-11 20:10] LABS: Absolute Neutrophil Count 4.3 X10^3/uL (2.0-7.7); Basophil# 0.05 X10^3/uL; Basophil% 0.6 % (0-1); Eosinophil# 0.12 X10^3/uL; Eosinophils% 1.4 % (0-5); Hematocrit 41.5 % (37-47); Hemoglobin 13.2 g/dL (12.0-15.0); Lymphocyte % 37.9 % (19-41); Mean Corp Hgb Conc 31.8 g/dL (32-36); Mean Corpuscular Hgb 27.2 pg (27.0-32.0); Mean Corpuscular Volume 85.6 fL (81-99); Mean Platelet Vol. 10.1 fl (6.2-12.0); Monocyte# 0.95 X10^3/uL; Monocyte% 10.9 % (0-10); NRBC Flagged by Analyzer 0 % (0-5); Neutrophil # 4.26 X10^3/uL (2.7-7.7); Platelet Count 311 K/mm3 (150-450); RBC Distribution Width CV 14.7 % (11.6-14.6); RBC Distribution Width SD 45.4 fl (35.1-43.9); Red Blood Count 4.85 M/mm3 (4.2-5.4); White Blood Count 8.7 K/mm3 (4.4-11.0)
[2021-08-11 20:11] LABS: Anion Gap 6 (5-15); BUN 25 mg/dL (7-18); BUN/Creat Ratio 26.9 RATIO (10-20); Calcium,Total 9.8 mg/dL (8.5-10.1); Chloride 104 mmol/L (98-107); Creatinine, Serum 0.93 mg/dL (0.55-1.02); EST Glomerular Filtration Rate 63 mL/min (>60); Est Glom Filt Rate - Afr Amer 76 mL/min (>60); Estimated Creatinine Clearance 43.25 ml/min; Glucose 258 mg/dL (74-106); Lipase 179 U/L (73-393); Potassium 4.4 mmol/L (3.5-5.1); Sodium Level 137 mmol/L (136-145); Troponin-I HS (w/2H Reflex) 10 pg/mL (3.0-54.0)
[2021-08-11 20:24] VITALS: BP 157/60; PULSE 57; RESP 16; O2SAT 95
[2021-08-11 21:15] VITALS: BP 97/65; PULSE 52; RESP 18; O2SAT 96
[2021-08-11 21:50] LABS: Reflex Troponin-HS? (from REC) Y
== END 2021-08-11 21:16 | disposition home or self-care (01) ==
PROVIDERS: Emergency Provider Emergency Medicine; PCP Family Medicine Geriatric Medicine; Visit Provider Emergency Medicine
DX: R53.1 Weakness (principal); R07.9 Chest pain, unspecified; G89.29 Other chronic pain; Z79.01 Long term (current) use of anticoagulants; Z86.718 Personal history of other venous thrombosis and embolism
CPT/HCPCS: 71045; 80048; 83690; 84484; 85025; 93005; 96374; 96375; 99283; A4216; J2405

== ENCOUNTER 2021-08-13 00:29 | Emergency (ER) | payer MEDICARE, SELFPAY ==
[2021-08-13 00:30] VITALS: BP 174/60; PULSE 60; RESP 15; TEMP 36.8; O2SAT 97; BMI 23.8
--- NOTE | 2021-08-13 00:45 | EDS_ITS ---
HPI History of Present Illness Chief Complaint: Chest Pain Informant: patient Onset/Context/Timing Onset: Yesterday Activity at onset: gradual Timing: Continuous Quality: Positive for Sharp Location: Substernal Worsened By: Nothing Relieved By: Nothing Associated Symptoms: Positive for Lightheadedness and Palpitations; Negative for Nausea, Vomiting, Diaphoresis, Dyspnea, Cough, Fever and Acid Reflux Narrative Narrative: Patient presents with chest pain that began yesterday. Patient states it has gradually gotten worse. Patient describes her pain as sharp. Patient states the pain is over the substernal area. Patient states nothing makes it better nothing makes it worse. Patient states she saw her pain management physician in [place] for this. Patient states she was told by her pain management physician that she needed to get a primary care physician here in [place] to evaluate this. Patient admits to some lightheadedness and palpitations. Patient denies any nausea or vomiting. Patient denies any diaphoresis. Patient denies any shortness of breath or cough. Patient denies any fevers. CVD Risk Factors: Positive for Diabetes and Hypercholesterolemia; Negative for Hypertension, Family History 1' </=55 and Smoking PE Risk Factors: Positive for Prior DVT or PE; Negative for Recent Travel/Surgery, Recent Immobilization, Cancer and OCP + Smoking + >/=35 PFSH PFSH Medical History Abscess of right elbow Acute pancreatitis Arthritis Back problem Diabetes Elevated hemoglobin A1c Essential (primary) hypertension Hormone deficiency Hyperlipidemia Mass of skin of right elbow Seasonal allergies Type 2 diabetes mellitus Home Medications metoprolol tartrate 50 mg PO DAILY 03/06/19 [History Last Taken 02/17/21] Tresiba FlexTouch U-200 80 unit SUBCUT BID 01/21/21 [History Last Taken 02/17/21] aspirin [Aspirin Low Dose] 81 mg PO DAILY 02/17/21 [History Last Taken 02/17/21] lisinopril 10 mg PO DAILY 02/17/21 [History Last Taken 02/17/21] apixaban [Eliquis] 5 mg PO BID 03/08/21 [History Last Taken Unknown] diclofenac sodium [Voltaren Arthritis Pain] 2 g TOPICAL TID PRN PRN #100 g 04/02/21 [Rx Last Taken Unknown] hydrocodone-acetaminophen 1 tab PO Q6H PRN 3 Days #12 tab 06/15/21 [Rx Last Taken Unknown] Allergy/AdvReac Type Severity Reaction Status Date / Time diphenhydramine Allergy Swelling Verified 04/30/21 05:02 [From Benadryl] Family History Unknown Breast cancer Colon cancer Myocardial infarction Hypertension Hyperlipidemia Father Heart disease Hypertension Mother Diabetes Hypertension Kidney disease Liver disease Other Arthritis Surgical History History of Social History household members: spouse Smoking Status: Never smoker alcohol intake: never substance use type: does not use what type of physical activity do you participate in: none ROS ROS ED Constitutional Constitutional ED: Denies chills or fever(s) Eyes Eyes: Denies blurry vision or change in vision ENT ENT ED: Denies rhinorrhea or sore throat Cardiovascular Cardiovascular: Reports chest pain; Denies palpitations Respiratory/Chest Respiratory/Chest: Denies cough or dyspnea Gastrointestinal Gastrointestinal: Denies abdominal pain, nausea or vomiting Genitourinary Genitourinary ED: Denies dysuria or hematuria Musculoskeletal Musculoskeletal: Reports back pain; Denies neck pain Integumentary Denies abscess or rash Neurologic Neurologic: Denies headache(s) or weakness Allergic/Immunologic Allergic/Immunologic ED: Denies mouth swelling or urticaria EXAM Physical Exam Const Vital Signs: 08/13/21 00:30 Temperature 98.2 F Temperature Source Temporal Pulse Rate 60 Respiratory Rate 15 Blood Pressure 174/60 H Blood Pressure Mean 98 Pulse Ox 97 Oxygen Delivery Method Room Air Positive well nourished and well developed General Appearance ED: well developed and NAD HEENT normocephalic and atraumatic Eyes PERRL and EOMs intact bilaterally Neck supple and no JVD Chest Wall Chest: tenderness sternum Resp normal respiratory effort and clear to auscultation bilaterally Effort and Inspection: Negative for respiratory distress Cardio regular rate, regular rhythm and no murmurs GI normal to inspection, nondistended, normoactive bowel sounds, soft to palpation, non-tender and non-distended Extremity normal to inspection General Extremety ED: Negative for edema or tenderness General Extremity: Negative for edema Neuro oriented x3, CN's II-XII intact bilaterally and no sensory deficits noted Sensorium / Orientation: awake and alert Motor Exam: strength 5/5 throughout Psych mental status grossly normal Heart Score History: Slightly/Non-Suspicious ECG: Normal Age: >/= 65 years Risk Factors: 1 or 2 Risk Factors Troponin: </= Normal Limit Score: 3 MDM MDM MDM Narrative Medical decision making narrative: EKG was obtained. On my interpretation, it showed a normal sinus rhythm with a rate of 61. MA interval, QRS interval, and QTc intervals were all normal. There is borderline left axis deviation at -28. There are no acute ST or T wave changes. Portable 1 view chest x-ray was obtained. On my interpretation, lung rich show some left lower lobe atelectasis. There is normal cardiac silhouette. Bony thorax is normal. There is no acute process noted. Radiologist also interpreted the x-ray and agrees. CBC was within normal limits. Basic metabolic profile showed an elevated glucose of 289. Anion gap was normal. High-sensitivity troponin was normal at 7. Patient was advised of her findings. Patient has a HEART score of 3. Patient was advised that this is low risk for acute cardiac event. Patient was instructed to follow-up with her primary care physician in 5 to 7 days for reevaluation. Patient understood and was agreeable with the plan. All questions were answered. Lab Data Attestation: I reviewed the patient's lab results. Labs: Laboratory Results - last 24 hr 08/13/21 08/13/21 01:10 01:10 WBC 7.8 RBC 4.99 Hgb 13.7 Hct 41.8 MCV 83.8 MCH 27.5 MCHC 32.8 RDW Std Deviation 44.7 H RDW Coeff of Melvina 14.8 H Plt Count 274 MPV 9.7 Immature Gran % (Auto) 0.300 Neut % (Auto) 46.0 L Lymph % (Auto) 40.1 [place] % (Auto) 11.9 H Eos % (Auto) 0.9 Baso % (Auto) 0.8 Absolute Neuts (auto) 3.6 Absolute Lymphs (auto) 3.11 Nucleated RBC % 0 Sodium 136 Potassium 3.9 Chloride 102 Carbon Dioxide 28.0 Anion Gap 6 BUN 26 H Creatinine 0.94 Estim Creat Clear Calc 42.79 Est GFR (MDRD) Af Amer 76 Est GFR (MDRD) Non-Af 63 BUN/Creatinine Ratio 27.8 H Glucose 289 H Calcium 10.4 H Troponin I High Sens 7 Radiography Chest X-Ray - ED: 1 View, Read by ED Physician, Read by Radiologist and No Acute Disease Diagnostic Testing: Clinical Impression(s) from Imaging Studies Chest X-Ray 08/13/21 00:52 IMPRESSION: Mild left mid lower lung field atelectasis. Otherwise no acute cardiopulmonary disease. Electronically Signed: Roula Flannery MD at 1:39 EDT , EKG Initial EKG: Attestation: I personally reviewed and interpreted this EKG as follows: Interpretation: Sinus Rhythm (61) and No Acute Injury Pattern Prior EKG tracings: available for review Prior: Unchanged (08/11/2021) Discharge Plan Triage Chief Complaint: Chest Pain ED Provider: Shayne Camargo Dx/Rx/DC Orders Clinical Impression: Chest pain, History of diabetes mellitus Instructions: ED Chest Pain, Uncertain Cause Prescriptions: No Action metoprolol tartrate 50 MG tablet 50 mg PO DAILY RF: 0 Tresiba FlexTouch U-200 200 unit/mL (3 mL) insulin pen 80 unit SUBCUT BID RF: 0 aspirin [Aspirin Low Dose] 81 mg Tablet,Delayed Release (Dr/Ec) 81 mg PO DAILY RF: 0 lisinopril 10 mg tablet 10 mg PO DAILY RF: 0 Eliquis 5 mg tablet 5 mg PO BID RF: 0 diclofenac sodium [Voltaren Arthritis Pain] 1 % gel 2 g topical TID PRN PRN (Reason: pain) Qty: 100 RF: 2 hydrocodone-acetaminophen 5-325 mg tablet 1 tab PO Q6H PRN (Reason: pain) 3 Days Qty: 12 RF: 0 Primary Care Provider: Alfonso Carlson Chi Referrals: Alfonso Carlson Chi, MD [Primary Care Provider] - 5-7 Days Disposition Disposition: Home, Self Care
--- NOTE | 2021-08-13 00:52 | RAD_ITS ---
STUDY: X-RAY CHEST REASON FOR EXAM: Female, 71 years old. chest pain TECHNIQUE: Single AP portable view of the chest. COMPARISON: 08/11/2021. FINDINGS: Elevation of the right hemidiaphragm. There is mild left basilar and lower lobe atelectasis. Remainder of the lung rich are clear. There is no demonstrated pleural abnormality. Normal size heart. Normal mediastinum and coco. Normal visualized pulmonary arteries. There is atherosclerotic calcification of the aortic arch with tortuosity. There are diffuse degenerative changes of the visualized thoracic spine. There is degenerative osteoarthritis of the bilateral shoulders. There is no demonstrated abnormality of the visualized soft tissue structures of the upper abdomen. RAD/Chest 1 View (Portable) IMPRESSION: Mild left mid lower lung field atelectasis. Otherwise no acute cardiopulmonary disease. Electronically Signed: Roula Flannery MD at 1:39 EDT ,
--- NOTE | 2021-08-13 00:52 | EKG12_ITS ---
Test Reason : CP Blood Pressure : / mmHG Vent. Rate : 061 BPM Atrial Rate : 061 BPM P-R Int : 138 ms QRS Dur : 074 ms QT Int : 422 ms P-R-T Axes : 020 -28 072 degrees QTc Int : 424 ms Normal sinus rhythm Leftward axis Confirmed by ZION KLEIN, MAICOL ([id number]), newspaper photo editor CHECO VELASCO ([id number]) on 08/17/2021 1:19:26 PM Referred By: SILKE Confirmed By:MAICOL DONOVAN MD
[2021-08-13] MEDS: Aspirin 81 MG TAB.CHEW 324 MG PO (01:01)
[2021-08-13] MEDS: Morphine 4 MG/ML Syringe IV (01:15)
[2021-08-13 01:16] LABS: Absolute Lymphocyte Count 3.11 X10^3/uL (0.83-4.51); Absolute Neutrophil Count 3.6 X10^3/uL (2.0-7.7); Basophil# 0.06 X10^3/uL; Basophil% 0.8 % (0-1); Eosinophil# 0.07 X10^3/uL; Eosinophils% 0.9 % (0-5); Hematocrit 41.8 % (37-47); Hemoglobin 13.7 g/dL (12.0-15.0); Lymphocyte # 3.11 X10^3/ul (0.83-4.51); Lymphocyte % 40.1 % (19-41); Mean Corp Hgb Conc 32.8 g/dL (32-36); Mean Corpuscular Hgb 27.5 pg (27.0-32.0); Mean Corpuscular Volume 83.8 fL (81-99); Mean Platelet Vol. 9.7 fl (6.2-12.0); Monocyte# 0.92 X10^3/uL; Monocyte% 11.9 % (0-10); NRBC Flagged by Analyzer 0 % (0-5); Neutrophil # 3.57 X10^3/uL (2.7-7.7); Platelet Count 274 K/mm3 (150-450); RBC Distribution Width CV 14.8 % (11.6-14.6); RBC Distribution Width SD 44.7 fl (35.1-43.9); Red Blood Count 4.99 M/mm3 (4.2-5.4); White Blood Count 7.8 K/mm3 (4.4-11.0)
[2021-08-13 02:01] VITALS: BP 166/74; PULSE 53; RESP 17; O2SAT 96
== END 2021-08-13 02:04 | disposition home or self-care (01) ==
PROVIDERS: Emergency Provider Emergency Medicine; PCP Family Medicine Geriatric Medicine; Visit Provider Emergency Medicine
DX: R07.9 Chest pain, unspecified (principal); I10 Essential (primary) hypertension; Z79.899 Other long term (current) drug therapy
CPT/HCPCS: 71045; 85025; 93005; A4216

== ENCOUNTER 2021-08-13 22:02 | Emergency (ER) | payer MEDICARE, SELFPAY ==
[2021-08-13 22:03] VITALS: PULSE 98; RESP 24; TEMP 36.3; O2SAT 94; BMI 24.4
[2021-08-13 22:05] VITALS: BP 140/85; PULSE 95; RESP 18; O2SAT 97
--- NOTE | 2021-08-13 22:53 | EKG12_ITS ---
Test Reason : CP Blood Pressure : / mmHG Vent. Rate : 087 BPM Atrial Rate : 087 BPM P-R Int : 126 ms QRS Dur : 074 ms QT Int : 380 ms P-R-T Axes : 025 -31 065 degrees QTc Int : 457 ms Normal sinus rhythm Left axis deviation Abnormal ECG Confirmed by BETZY KLEIN, CATHRYN ([id number]), communications editor CHECO VELASCO ([id number]) on 08/14/2021 11:42:59 AM Referred By: CLAUDETTE Confirmed By:CATHRYN BO MD
--- NOTE | 2021-08-13 23:00 | RAD_ITS ---
STUDY: X-RAY CHEST REASON FOR EXAM: Female, 71 years old. chest pain TECHNIQUE: AP COMPARISON: Earlier today FINDINGS: Stable reticulation in the left lung base. Right hemidiaphragm remains elevated. There is no demonstrated pleural abnormality. Normal size heart. Normal mediastinum and coco. Normal visualized pulmonary arteries. Normal visualized aortic arch and descending thoracic aorta. Normal visualized thoracic spine. Normal visualized ribs, clavicles, and shoulders. There is no demonstrated abnormality of the visualized soft tissue structures of the upper abdomen. RAD/Chest 1 View (Portable) IMPRESSION: Similar atelectasis in the retrocardiac left lower lobe. Electronically Signed: Dante Barajas MD ([facility]) at 23:17 EDT ,
[2021-08-13 23:03] LABS: Absolute Lymphocyte Count 4.17 X10^3/uL (0.83-4.51); Absolute Neutrophil Count 5.2 X10^3/uL (2.0-7.7); Basophil# 0.05 X10^3/uL; Basophil% 0.5 % (0-1); Eosinophil# 0.09 X10^3/uL; Eosinophils% 0.9 % (0-5); Hematocrit 45.9 % (37-47); Hemoglobin 14.4 g/dL (12.0-15.0); Lymphocyte # 4.17 X10^3/ul (0.83-4.51); Lymphocyte % 39.9 % (19-41); Mean Corp Hgb Conc 31.4 g/dL (32-36); Mean Corpuscular Hgb 26.4 pg (27.0-32.0); Mean Corpuscular Volume 84.2 fL (81-99); Mean Platelet Vol. 10.6 fl (6.2-12.0); Monocyte# 0.94 X10^3/uL; NRBC Flagged by Analyzer 0 % (0-5); Neutrophil # 5.16 X10^3/uL (2.7-7.7); Neutrophil % 49.3 % (47-70); Platelet Count 337 K/mm3 (150-450); RBC Distribution Width CV 14.8 % (11.6-14.6); RBC Distribution Width SD 44.9 fl (35.1-43.9); Red Blood Count 5.45 M/mm3 (4.2-5.4); White Blood Count 10.5 K/mm3 (4.4-11.0)
--- NOTE | 2021-08-13 23:14 | CT_ITS ---
STUDY: CTA CHEST REASON FOR EXAM: Female, 71 years old. chest pain RADIATION DOSAGE (If Supplied By Facility): CTDIvol = ( 11.49 ) mGy, DLP = ( 410.62 ) mGycm TECHNIQUE: The examination was performed with the intravenous administration of IV 75mL Isovue-370. Post-processing of the angiographic images was performed, with multiplanar reformation and 3D reconstruction. Individualized dose optimization techniques were used for this CT. COMPARISON: CT chest 02/20/2021. FINDINGS: LUNGS: No consolidation. Reticular opacities in the lower lungs likely scarring. PLEURA: No pleural effusion. No pneumothorax. PULMONARY VESSELS: No pulmonary emboli identified. MEDIASTINUM: Unremarkable. HEART: Not enlarged. AORTA/GREAT VESSELS: Thoracic aorta is normal caliber. No aneurysm or dissection. UPPER ABDOMEN: No acute findings. BONES/SOFT TISSUES: No acute findings. OTHER: None. CT/CTA Chest W/WO Contrast IMPRESSION: No evidence of pulmonary emboli. No thoracic aortic aneurysm or dissection. No consolidation. Electronically Signed: Isela Wagoner MD at 0:40 EDT ,
[2021-08-13 23:26] LABS: Anion Gap 7 (5-15); BUN 24 mg/dL (7-18); BUN/Creat Ratio 21.6 RATIO (10-20); Calcium,Total 10.6 mg/dL (8.5-10.1); Chloride 99 mmol/L (98-107); Creatinine, Serum 1.11 mg/dL (0.55-1.02); EST Glomerular Filtration Rate 51 mL/min (>60); Est Glom Filt Rate - Afr Amer 62 mL/min (>60); Estimated Creatinine Clearance 36.23 ml/min; Glucose 268 mg/dL (74-106); Potassium 3.7 mmol/L (3.5-5.1); Sodium Level 133 mmol/L (136-145); Troponin-I HS 8 pg/mL (3.0-54.0)
[2021-08-13] MEDS: Morphine 2 MG/ML Syringe IV (23:45)
[2021-08-13] MEDS: Ondansetron 4 MG/2 ML Vial IV (23:45)
[2021-08-14 00:07] VITALS: PULSE 74; RESP 20; O2SAT 94
--- NOTE | 2021-08-14 01:29 | EX.ED.DYSGE1 ---
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 Patient was seen in the last 1 to 2 days for similar event and had negative troponins and x-rays and therefore was sent home. Patient reports that the pain has been persistent and she states its been constant since she was discharged from the hospital. She states she was concerned that this was cardiac in nature because of the persistent nature of the pain and therefore returns for repeat evaluation. She does state that she has not missed any of her medication doses and she denies any fevers or chills or trauma or shortness of breath associated with this. [facility] Medical History Abscess of right elbow Acute pancreatitis Arthritis Back problem Diabetes Elevated hemoglobin A1c Essential (primary) hypertension Hormone deficiency Hyperlipidemia Mass of skin of right elbow Seasonal allergies Type 2 diabetes mellitus Home Medications metoprolol tartrate 50 mg PO DAILY 03/06/19 [History Last Taken 02/17/21] Tresiba FlexTouch U-200 80 unit SUBCUT BID 01/21/21 [History Last Taken 02/17/21] aspirin [Aspirin Low Dose] 81 mg PO DAILY 02/17/21 [History Last Taken 02/17/21] lisinopril 10 mg PO DAILY 02/17/21 [History Last Taken 02/17/21] apixaban [Eliquis] 5 mg PO BID 03/08/21 [History Last Taken Unknown] diclofenac sodium [Voltaren Arthritis Pain] 2 g TOPICAL TID PRN PRN #100 g 04/02/21 [Rx Last Taken Unknown] Allergy/AdvReac Type Severity Reaction Status Date / Time diphenhydramine Allergy Swelling Verified 08/13/21 22:03 [From Bensanjuanitaryl] Family History Unknown Breast cancer Colon cancer Myocardial infarction Hypertension Hyperlipidemia Father Heart disease Hypertension Mother Diabetes Hypertension Kidney disease Liver disease Other Arthritis Surgical History History of Social History household members: spouse Smoking Status: Never smoker alcohol intake: never substance use type: does not use what type of physical activity do you participate in: none ROS ROS ED Constitutional Constitutional ED: Denies chills or fever(s) ENT ENT ED: Denies sore throat Cardiovascular Cardiovascular: Reports chest pain Respiratory/Chest Respiratory/Chest: Denies cough or dyspnea Gastrointestinal Gastrointestinal: Denies abdominal pain, diarrhea, nausea or vomiting Genitourinary Genitourinary ED: Denies dysuria Musculoskeletal Musculoskeletal: Denies myalgias Integumentary Denies rash Neurologic Neurologic: Denies headache(s) Hematologic/Lymphatic Hematologic/Lymphatic: Reports easy bleeding and easy bruising EXAM Physical Exam Const Vital Signs: 08/13/21 22:03 08/13/21 22:05 08/13/21 22:07 Temperature 97.3 F L Temperature Source Temporal Pulse Rate 98 95 Respiratory Rate 24 H 18 Respiratory Effort Short of Breath Blood Pressure 140/85 H Blood Pressure Mean 103 Pulse Ox 94 97 Oxygen Delivery Method Room Air Room Air 08/13/21 23:46 08/14/21 00:07 08/14/21 01:46 Temperature Temperature Source Pulse Rate 74 82 Respiratory Rate 20 H 16 Respiratory Effort Blood Pressure Blood Pressure Mean Pulse Ox 94 97 Oxygen Delivery Method Room Air Room Air Positive well nourished and well developed General Appearance ED: well developed HEENT Reports moist mucous membranes Eyes PERRL and EOMs intact bilaterally Neck supple and no JVD Chest Wall Chest Narrative: There is reproducible pain with palpation of the anterior chest around rib regions 4-7 that patient states is the same pain she has been experiencing. No bony deformity or crepitance noted Resp normal respiratory effort and clear to auscultation bilaterally Cardio regular rate and regular rhythm Rate: other Other Details: Radial pulses are +2-4 bilaterally are equal and symmetric GI normal to inspection, nondistended, normoactive bowel sounds, non-tender, non-distended and no masses GI Narrative: No voluntary guarding or rigidity no pulsatile mass Auscultation: normoactive bowel sounds Palpation: soft Extremity normal to inspection Extremity Narrative: No asymmetric edema no pitting edema negative Homans' sign bilaterally Neuro oriented x3 and CN's II-XII intact bilaterally Sensorium / Orientation: alert Psych mental status grossly normal Skin no rashes or lesions noted MDM MDM MDM Narrative Medical decision making narrative: Patient presented to the ER in no acute distress. She reported her chest pain had been constant for over 6 hours and therefore I felt if the troponin was normal this would effectively rule out cardiac disease as cause. She reported she has not missed any of her blood thinner medications but with her history of DVT and worsening pain I did elect to perform a CTA. CTA revealed no acute findings and troponin #2 decreased from 10-8. Therefore this time with normal EKG normal CTA and downtrending troponin based on her constant complaint of pain I do feel this is most likely musculoskeletal in nature and otherwise patient is safe for discharge Lab Data Attestation: I reviewed the patient's lab results. Labs: Laboratory Results - last 24 hr 08/13/21 08/13/21 22:45 22:45 WBC 10.5 RBC 5.45 H Hgb 14.4 Hct 45.9 MCV 84.2 MCH 26.4 L MCHC 31.4 L RDW Std Deviation 44.9 H RDW Coeff of Melvina 14.8 H Plt Count 337 MPV 10.6 Immature Gran % (Auto) 0.400 Neut % (Auto) 49.3 Lymph % (Auto) 39.9 [place] % (Auto) 9.0 Eos % (Auto) 0.9 Baso % (Auto) 0.5 Absolute Neuts (auto) 5.2 Absolute Lymphs (auto) 4.17 Nucleated RBC % 0 Sodium 133 L Potassium 3.7 Chloride 99 Carbon Dioxide 27.0 Anion Gap 7 BUN 24 H Creatinine 1.11 H Estim Creat Clear Calc 36.23 Est GFR (MDRD) Af Amer 62 Est GFR (MDRD) Non-Af 51 L BUN/Creatinine Ratio 21.6 H Glucose 268 H Calcium 10.6 H Troponin I High Sens 8 Radiography Diagnostic Testing: Clinical Impression(s) from Imaging Studies Chest X-Ray 08/13/21 23:00 IMPRESSION: Similar atelectasis in the retrocardiac left lower lobe. Electronically Signed: Dante Barajas MD ([place]) at 23:17 EDT , Chest CTA 08/13/21 23:14 IMPRESSION: No evidence of pulmonary emboli. No thoracic aortic aneurysm or dissection. No consolidation. Electronically Signed: Isela Wagoner MD at 0:40 EDT , Chest x-ray as interpreted by the emergency medicine physician reveals atelectasis in the left lower lobe otherwise no acute infiltrate pneumothorax or pleural effusion Discharge Plan Triage Chief Complaint: Chest Pain ED Provider: Johnny Fitzpatrick Dx/Rx/DC Orders Clinical Impression: Chest wall pain, Chronic anticoagulation Instructions: ED Chest Pain, Noncardiac, ED Chest Wall Pain, Costochondritis Prescriptions: No Action metoprolol tartrate 50 MG tablet 50 mg PO DAILY RF: 0 Tresiba FlexTouch U-200 200 unit/mL (3 mL) insulin pen 80 unit SUBCUT BID RF: 0 aspirin [Aspirin Low Dose] 81 mg Tablet,Delayed Release (Dr/Ec) 81 mg PO DAILY RF: 0 lisinopril 10 mg tablet 10 mg PO DAILY RF: 0 Eliquis 5 mg tablet 5 mg PO BID RF: 0 diclofenac sodium [Voltaren Arthritis Pain] 1 % gel 2 g topical TID PRN PRN (Reason: pain) Qty: 100 RF: 2 Primary Care Provider: Alfonso Carlson Chi Referrals: Alfonso Carlson Chi, MD [Primary Care Provider] - Disposition Disposition: Home, Self Care Discharge Date/Time: 08/14/21 01:47
[2021-08-14 01:46] VITALS: PULSE 82; RESP 16; O2SAT 97
== END 2021-08-14 01:47 | disposition home or self-care (01) ==
PROVIDERS: Emergency Provider Emergency Medicine; PCP Family Medicine Geriatric Medicine; Visit Provider Emergency Medicine
DX: R07.89 Other chest pain (principal); I10 Essential (primary) hypertension; Z79.01 Long term (current) use of anticoagulants; Z79.899 Other long term (current) drug therapy; Z79.82 Long term (current) use of aspirin; Z86.718 Personal history of other venous thrombosis and embolism
CPT/HCPCS: 71045; 71275; 80048; 84484; 85025; 93005; 96374; 96375; 96376; 99285; Q9967; A4216; J2405

== ENCOUNTER 2021-08-15 21:49 | Emergency (ER) | payer MEDICARE, SELFPAY ==
[2021-08-15 21:49] VITALS: BP 153/79; PULSE 97; RESP 16; TEMP 36.8; O2SAT 97; BMI 21.9
--- NOTE | 2021-08-15 22:19 | EDS_ITS ---
HPI History of Present Illness Chief Complaint: Lower Extremity Injury Informant: patient and spouse/S.O. Narrative Narrative: Patient complains of right greater than left lower leg pain. She denies any injury falls trauma or increased activity. She states that for the past hour she has had strange sensations in her right distal leg and a little bit in the left foot area. She states it sort of tingling numb but it is also hypersensitive. Her tried to put cream on it and it was stinging when he did this. She has no back pain at all. She has no weakness. No bowel or bladder dysfunction. Although she has had issues with chest pain she is not chambers ving that now. She does have significant history of arthritis. Patient also has history of diabetes. Her sugars have been running a little bit higher over the last month. But they were running around 200-2 50 most recently checked. She is not having polyuria or polydipsia though. Nothing really makes this better. Touching the areas make it slightly worse. She is on and is taking her Eliquis for what sounds like prior DVT. She is not having any swelling. [facility] Medical History Abscess of right elbow Acute pancreatitis Arthritis Back problem Diabetes Elevated hemoglobin A1c Essential (primary) hypertension Hormone deficiency Hyperlipidemia Mass of skin of right elbow Seasonal allergies Type 2 diabetes mellitus Home Medications metoprolol tartrate 50 mg PO DAILY 03/06/19 [History Last Taken 02/17/21] Tresiba FlexTouch U-200 80 unit SUBCUT BID 01/21/21 [History Last Taken 02/17/21] aspirin [Aspirin Low Dose] 81 mg PO DAILY 02/17/21 [History Last Taken 02/17/21] lisinopril 10 mg PO DAILY 02/17/21 [History Last Taken 02/17/21] apixaban [Eliquis] 5 mg PO BID 03/08/21 [History Last Taken Unknown] diclofenac sodium [Voltaren Arthritis Pain] 2 g TOPICAL TID PRN PRN #100 g 04/02/21 [Rx Last Taken Unknown] Allergy/AdvReac Type Severity Reaction Status Date / Time diphenhydramine Allergy Swelling Verified 08/13/21 22:03 [From Gabi] Family History Unknown Breast cancer Colon cancer Myocardial infarction Hypertension Hyperlipidemia Father Heart disease Hypertension Mother Diabetes Hypertension Kidney disease Liver disease Other Arthritis Surgical History History of Social History household members: spouse Smoking Status: Never smoker alcohol intake: never substance use type: does not use what type of physical activity do you participate in: none ROS ROS ED Constitutional Constitutional ED: Denies chills or fever(s) ENT ENT ED: Denies rhinorrhea or sore throat Cardiovascular Cardiovascular: Denies chest pain Respiratory/Chest Respiratory/Chest: Denies dyspnea Gastrointestinal Gastrointestinal: Denies abdominal pain, constipation, diarrhea, melena, nausea or vomiting Genitourinary Genitourinary ED: Denies dysuria, hematuria or urinary frequency Musculoskeletal Musculoskeletal: Reports other Details: Bilateral lower leg pain right greater than left. Integumentary Denies rash Neurologic Neurologic: Reports paresthesias; Denies weakness Psychiatric Psychiatric: Denies anxiety or depression Endocrine Endocrinology: Denies polydipsia or polyuria Allergic/Immunologic Allergic/Immunologic ED: Denies urticaria EXAM Physical Exam Const Vital Signs: 08/15/21 21:49 Temperature 98.3 F Temperature Source Temporal Pulse Rate 97 Respiratory Rate 16 Blood Pressure 153/79 H Blood Pressure Mean 103 Pulse Ox 97 Oxygen Delivery Method Room Air Positive well nourished and well developed General Appearance ED: well developed and NAD HEENT Reports moist mucous membranes Eyes General Eye ED: Negative for pale conjunctiva or scleral icterus Neck no JVD Resp normal respiratory effort and clear to auscultation bilaterally Cardio regular rate GI normal to inspection, nondistended, normoactive bowel sounds and non-tender Palpation: soft Back/Spine no CVA tenderness Back/Spine Narrative: No sign of back or paraspinal tenderness. No pain with motion. No change with her symptoms with motion or twisting of the back. Thoracic Spine / Upper Back: Negative for paraspinal muscle tenderness Lumbar Spine / Lower Back: Negative for lumbar spinal tenderness Extremity normal to inspection Extremity Narrative: Bilateral lower extremities are thin. There is no edema. No distended veins. No asymmetry. No cord. No tenderness along the deep venous system. I did Doppler and she has biphasic pulses on both feet and ankles at dorsalis pedis and posterior tibial. She does have some mild hyperesthesia of the right foot. Not so much on the left. There is also no inguinal hernia. Strength is normal. Patient can lift up both legs easily. Quadriceps and gastroc muscle group areas are normal. General Extremety ED: Negative for edema General Extremity: Negative for edema Neuro no sensory deficits noted Sensorium / Orientation: alert Motor Exam: Negative for strength abnormal Skin no rashes or lesions noted Skin Narrative: No vesicles erythema or any rash seen. MDM MDM MDM Narrative Medical decision making narrative: Patient has atraumatic bilateral lower extremity pain presents as mild paresthesias and hyperesthesia. This is mostly consistent with a peripheral neuropathy likely diabetic neuropathy. Since her sugars have been slightly higher recently this might be contributing. We discussed tighter control of her blood glucose. She may benefit from gabapentin in the future if she has recurrent issues with this. Tonight we will give her something for pain to calm this down. I do not see reasons for x-rays that she has no trauma fall or pain with motion. Discharge Plan Triage Chief Complaint: Lower Extremity Injury ED Provider: Mark Villar Dx/Rx/DC Orders Clinical Impression: Peripheral neuropathy, History of diabetes mellitus Instructions: ED Neuropathy, Peripheral, Diabetic Neuropathy Prescriptions: No Action metoprolol tartrate 50 MG tablet 50 mg PO DAILY RF: 0 Tresiba FlexTouch U-200 200 unit/mL (3 mL) insulin pen 80 unit SUBCUT BID RF: 0 aspirin [Aspirin Low Dose] 81 mg Tablet,Delayed Release (Dr/Ec) 81 mg PO DAILY RF: 0 lisinopril 10 mg tablet 10 mg PO DAILY RF: 0 Eliquis 5 mg tablet 5 mg PO BID RF: 0 diclofenac sodium [Voltaren Arthritis Pain] 1 % gel 2 g topical TID PRN PRN (Reason: pain) Qty: 100 RF: 2 Primary Care Provider: Alfonso Carlson Chi Referrals: Alfonso Carlson Chi, MD [Primary Care Provider] - As soon as possible Disposition Disposition: Home, Self Care
[2021-08-15 22:26] VITALS: BP 153/79; PULSE 97; RESP 16; O2SAT 97
[2021-08-15] MEDS: oxyCODONE 5 MG Tablet PO (22:32)
--- NOTE | 2021-08-16 10:07 | ED.RN ---
[facility] CALLED QUESTIONING NARCOTIC PRESCRIPTION WHILE PT IS SEEING DR TOLEDO AND PAIN MANAGEMENT. PHARMACIST NORBERT STATED HE IS NOT GOING TO FILL THIS PRESCRIPTION BECAUSE SHE HAS BEEN TO OUR ER 5 TIMES SINCE NOV FOR PAIN MEDS WHILE ALSO GETTING MEDS FROM PAIN MANAGEMENT AND ALSO MEDS FROM HER PCP.
--- NOTE | 2021-08-16 10:13 | ED.RN ---
SEES [facility] IN [place] FOR PAIN MANAGEMENT ACCORDING TO EXTERNAL MED LIST
== END 2021-08-15 22:59 | disposition home or self-care (01) ==
LOC: ED 22:30
PROVIDERS: Emergency Provider Emergency Medicine; PCP Family Medicine Geriatric Medicine; Visit Provider Emergency Medicine
DX: E11.42 Type 2 diabetes mellitus with diabetic polyneuropathy (principal); Z79.4 Long term (current) use of insulin; I10 Essential (primary) hypertension; M19.90 Unspecified osteoarthritis, unspecified site; Z79.01 Long term (current) use of anticoagulants; Z79.82 Long term (current) use of aspirin; Z79.899 Other long term (current) drug therapy
CPT/HCPCS: 99283

== ENCOUNTER → 2021-08-17 | Outpatient (CLI) | payer MEDICARE, SELFPAY ==
[2021-08-17 12:33] LABS: Absolute Lymphocyte Count 4.31 X10^3/uL (0.83-4.51); Absolute Neutrophil Count 4.7 X10^3/uL (2.0-7.7); Basophil# 0.07 X10^3/uL; Basophil% 0.7 % (0-1); Eosinophils% 1.9 % (0-5); Hematocrit 43.5 % (37-47); Hemoglobin 13.7 g/dL (12.0-15.0); Lymphocyte # 4.31 X10^3/ul (0.83-4.51); Lymphocyte % 41.8 % (19-41); Mean Corp Hgb Conc 31.5 g/dL (32-36); Mean Corpuscular Volume 85.6 fL (81-99); Mean Platelet Vol. 10.7 fl (6.2-12.0); Monocyte# 0.97 X10^3/uL; Monocyte% 9.4 % (0-10); NRBC Flagged by Analyzer 0 % (0-5); Neutrophil # 4.71 X10^3/uL (2.7-7.7); Neutrophil % 45.7 % (47-70); Platelet Count 334 K/mm3 (150-450); RBC Distribution Width CV 15.1 % (11.6-14.6); RBC Distribution Width SD 46.7 fl (35.1-43.9); Red Blood Count 5.08 M/mm3 (4.2-5.4); White Blood Count 10.3 K/mm3 (4.4-11.0)
[2021-08-17 12:46] LABS: Vitamin D,25 Hydroxy 15.6 ng/mL
[2021-08-17 12:58] LABS: ALB/GLOB Ratio 0.9 RATIO (0.9-2.4); AST(SGOT) 23 U/L (15-37); Alanine Aminotransfer ALT/SGPT 30 U/L (13-56); Albumin, Serum 3.5 g/dL (3.2-5.0); Alkaline Phosphatase 61 U/L (45-117); Anion Gap 7 (5-15); BUN 23 mg/dL (7-18); BUN/Creat Ratio 23.1 RATIO (10-20); Chloride 104 mmol/L (98-107); EST Glomerular Filtration Rate 58 mL/min (>60); Est Glom Filt Rate - Afr Amer 70 mL/min (>60); Glucose 164 mg/dL (74-106); Potassium 4.1 mmol/L (3.5-5.1); Protein, Total 7.5 g/dL (6.4-8.2); Sodium Level 137 mmol/L (136-145)
== END | disposition home or self-care (01) ==
LOC: POLAB3 09:20
PROVIDERS: PCP Family Medicine Geriatric Medicine; Visit Provider Family Medicine Geriatric Medicine
DX: E11.9 Type 2 diabetes mellitus without complications (principal); E55.9 Vitamin D deficiency, unspecified; E78.5 Hyperlipidemia, unspecified; I10 Essential (primary) hypertension
CPT/HCPCS: 36415; 80053; 82306; 84443; 85025

== ENCOUNTER → 2021-11-12 | Outpatient (CLI) | payer MEDICARE, SELFPAY ==
--- NOTE | 2021-11-12 17:30 | MRI_ITS ---
STUDY: MRI LUMBAR SPINE WITHOUT CONTRAST REASON FOR EXAM: Female, 71 years old. RADICULOPATHY TECHNIQUE: Standardized fat and water weighted pulse sequences were obtained in the sagittal and axial planes. COMPARISON: X-ray 02/17/2021 FINDINGS: This study is limited to sagittal images due to patient claustrophobia. T12-L1: Disc desiccation with loss of disc height but no disc protrusion, spinal stenosis, or neural foraminal stenosis. Normal lumbar lordosis. There is no substantial scoliosis. Normal conus medullaris that terminates at the L1. Some lumbarization of the S1 segment with a prominent disc space. L1-2: Normal endplates. Normal disc height, hydration and morphology. Normal bilateral facet joints. Normal central canal and bilateral lateral recesses. Normal bilateral intervertebral neural foramina. L2-3: Normal endplates. Normal disc height, hydration and morphology. Normal bilateral facet joints. Normal central canal and bilateral lateral recesses. Normal bilateral intervertebral neural foramina. L3-4: Disc desiccation but no disc protrusion, spinal stenosis, neural foraminal stenosis. L4-5: 2 mm retrolisthesis of L4 on L5 with mild broad disc protrusion produces mild spinal stenosis and mild bilateral neural foraminal stenosis. L5-S1: Moderate broad disc protrusion produces moderate spinal stenosis and moderate bilateral neural foraminal stenosis with abutment of the L5 nerve roots bilaterally. Normal visualized sacral ala. Normal visualized paraspinous soft tissue structures. MRI/Spine Lumbar (Routine) IMPRESSION: Multilevel degenerative changes, as described above. Electronically Signed: Jaydon Barahona MD at 15:52 EDT ,
== END | disposition home or self-care (01) ==
PROVIDERS: PCP Family Medicine Geriatric Medicine; Visit Provider Anesthesiology Pain Medicine
DX: M54.16 Radiculopathy, lumbar region (principal)
CPT/HCPCS: 72148

== ENCOUNTER 2021-11-15 15:36 | Emergency (ER) | payer MEDICARE, SELFPAY ==
[2021-11-15 15:37] VITALS: BP 168/60; PULSE 74; RESP 18; TEMP 35.8; BMI 21.0
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
[2021-11-15 16:59] VITALS: PULSE 88; RESP 17
== END 2021-11-15 17:02 | disposition home or self-care (01) ==
PROVIDERS: Emergency Provider Emergency Medicine; PCP Family Medicine Geriatric Medicine; Visit Provider Emergency Medicine
DX: S61.512A Laceration without foreign body of left wrist, initial encounter (principal); Z86.718 Personal history of other venous thrombosis and embolism; X58.XXXA Exposure to other specified factors, initial encounter
CPT/HCPCS: 99282

== ENCOUNTER 2021-11-30 22:37 | Emergency (ER) | payer MEDICARE, SELFPAY ==
[2021-11-30 22:38] VITALS: BP 155/56; PULSE 98; RESP 18; TEMP 36.6; O2SAT 96; BMI 21.0
--- NOTE | 2021-11-30 22:58 | RAD_ITS ---
INDICATION: pain EXAMINATION/TECHNIQUE: X-RAY - RIGHT XR Knee Complete 4 Views or More COMPARISON: Right knee radiographs from 04/01/2021 FINDINGS: SOFT TISSUES: No significant soft tissue swelling. Prominent vascular calcifications again noted. Small benign fabella posteriorly. BONES/JOINTS: No acute fracture or subluxation. Normal alignment. Moderate joint space narrowing medial femorotibial compartment. Faint meniscal calcifications again noted. No suspicious osseous lesion observed. RAD/Knee 4 or More Views IMPRESSION: Chronic degenerative joint space narrowing medial compartment of right knee. Meniscal calcifications compatible with CPPD. Peripheral vascular disease. Electronically Signed: Raymond Kent MD at 0:05 EDT ,
--- NOTE | 2021-11-30 23:18 | EDS_ITS ---
HPI History of Present Illness Chief Complaint: Lower Extremity Injury Narrative Narrative: Patient is a 71-year-old female with past medical history of hypertension hyperlipidemia and previous DVT currently on Eliquis. She states that there has been no recent trauma or excessive activity but today she has had increased pain to the anterior aspect of her right knee. She states it is worse with motion. She denies any fevers or chills swelling chest pain or shortness of breath. She states she has been trying her home medication without symptom improvement and secondary to this comes in for evaluation. [facility] Medical History Abscess of right elbow Acute pancreatitis Arthritis Back problem Chest pain Diabetes Elevated hemoglobin A1c Essential (primary) hypertension History of deep venous thrombosis (01/2020) Hormone deficiency Hyperlipidemia Mass of skin of right elbow Seasonal allergies Type 2 diabetes mellitus Home Medications metoprolol tartrate 50 mg tablet 50 mg PO DAILY BLOOD PRESSURE 03/06/19 [History Last Taken 02/17/21] insulin degludec 200 unit/mL (3 mL) subcutaneous pen (Tresiba FlexTouch U-200 insulin) 80 unit subcut BID diabetes 01/21/21 [History Last Taken 02/17/21] aspirin 81 mg tablet,delayed release (Sara Low Dose Aspirin) 81 mg PO DAILY heart health 02/17/21 [History Last Taken 02/17/21] lisinopril 10 mg tablet 10 mg PO DAILY BP 02/17/21 [History Last Taken 02/17/21] apixaban 5 mg tablet (Eliquis) 5 mg PO BID 03/08/21 [History Last Taken Unknown] diclofenac sodium 1 % topical gel (Voltaren Arthritis Pain) 2 g topical TID PRN PRN pain #100 grams 04/02/21 [Rx Last Taken Unknown] rosuvastatin 20 mg tablet (Crestor) 20 mg PO DAILY #90 tabs 09/08/21 [Rx Last Taken Unknown] oxycodone-acetaminophen 5 mg-325 mg tablet (Endocet) 1 tab PO Q6H PRN pain 3 days #12 tabs 12/01/21 [Rx Last Taken Unknown] prednisone 20 mg tablet 20 mg PO DAILY 5 days #5 tabs 12/01/21 [Rx Last Taken Unknown] Allergy/AdvReac Type Severity Reaction Status Date / Time diphenhydramine Allergy Swelling Verified 11/30/21 22:38 [From Benadryl] Family History Unknown Breast cancer Colon cancer Myocardial infarction Hypertension Hyperlipidemia Father Heart disease Hypertension Mother Diabetes Hypertension Kidney disease Liver disease Other Arthritis Surgical History History of Social History household members: spouse Smoking Status: Never smoker alcohol intake: never substance use type: does not use what type of physical activity do you participate in: none ROS ROS ED Constitutional Constitutional ED: Denies chills or fever(s) ENT ENT ED: Denies sore throat Cardiovascular Cardiovascular: Denies chest pain Respiratory/Chest Respiratory/Chest: Denies cough or dyspnea Gastrointestinal Gastrointestinal: Denies abdominal pain, diarrhea, nausea or vomiting Genitourinary Genitourinary ED: Denies dysuria Musculoskeletal Musculoskeletal: Reports arthralgias and other Details: Positive right knee pain ; Denies myalgias Integumentary Denies rash Neurologic Neurologic: Denies headache(s) or paresthesias Hematologic/Lymphatic Hematologic/Lymphatic: Reports easy bleeding and easy bruising EXAM Physical Exam Const Vital Signs: 11/30/21 22:38 Temperature 97.8 F Temperature Source Temporal Pulse Rate 98 Respiratory Rate 18 Blood Pressure 155/56 H Blood Pressure Mean 89 Pulse Ox 96 Oxygen Delivery Method Room Air Positive well nourished and well developed General Appearance ED: well developed Eyes PERRL and EOMs intact bilaterally Neck supple Resp normal respiratory effort and clear to auscultation bilaterally Cardio regular rate and regular rhythm Extremity Extremity Narrative: Right lower extremity is neurovascularly intact. No obvious bony deformity or joint effusion. No overlying erythema or warmth. Patellar tendon is intact and knee ligaments are stable. There is pain on palpation over top the anterior aspect of the right knee. Active range of motion is decreased secondary to pain but is still present and goes against septic joint. Negative Homans' sign bilaterally. Neuro oriented x3 and CN's II-XII intact bilaterally Sensorium / Orientation: alert Psych mental status grossly normal Skin no rashes or lesions noted Skin Narrative: No overlying erythema ecchymosis or asymmetric warmth to suggest trauma or infection MDM MDM MDM Narrative Medical decision making narrative: Patient presented to the ER with stable vital. She had no report or signs of trauma. Secondary to this I felt any need for initial x-ray. X-ray showed severe arthritis with calcium pyrophosphate deposition consistent with pseudogout. Patient was given 6 mg of IM morphine and reported no improvement of her pain. Therefore I elected to perform basic laboratory studies. This shows a normal white count with no left shift and no elevation to her lactic acid value. Based on her normal temperature and negative labs as well as no physical exam findings to suggest infection I do not believe this is early septic joint. At this time with physical exam and labs pointing to the fact this is most likely calcium pyrophosphate disease with arthritic changes patient will be given a small dose of steroids and otherwise is safe for discharge. She has no physical exam findings to suggest DVT and is currently on Eliquis which reduces her risk factors even further. Lab Data Attestation: I reviewed the patient's lab results. Labs: Laboratory Results - last 24 hr 12/01/21 12/01/21 12/01/21 00:30 00:30 00:30 WBC 10.2 RBC 4.80 Hgb 12.3 Hct 39.0 MCV 81.3 MCH 25.6 L MCHC 31.5 L RDW Std Deviation 49.5 H RDW Coeff of Melvina 16.8 H Plt Count 338 MPV 9.5 Immature Gran % (Auto) 0.200 Neut % (Auto) 49.7 Lymph % (Auto) 38.0 [place] % (Auto) 9.4 Eos % (Auto) 2.1 Baso % (Auto) 0.6 Absolute Neuts (auto) 5.1 Absolute Lymphs (auto) 3.88 Nucleated RBC % 0 Sodium 137 Potassium 4.1 Chloride 107 Carbon Dioxide 25.0 Anion Gap 5 BUN 20 H Creatinine 1.02 Estim Creat Clear Calc 39.43 Est GFR (MDRD) Af Amer 68 Est GFR (MDRD) Non-Af 57 L BUN/Creatinine Ratio 19.6 Glucose 206 H Lactic Acid 0.3 L Calcium 9.5 C-React Prot Ext Range 5.52 H Radiography Diagnostic Testing: Clinical Impression(s) from Imaging Studies Knee X-Ray 11/30/21 22:58 IMPRESSION: Chronic degenerative joint space narrowing medial compartment of right knee. Meniscal calcifications compatible with CPPD. Peripheral vascular disease. Electronically Signed: Raymond Kent MD at 0:05 EDT , X-ray of the right knee as interpreted by the emergency medicine physician shows degenerative changes without acute fracture or dislocation Discharge Plan Triage Chief Complaint: Lower Extremity Injury ED Provider: Johnny Fitzpatrick Dx/Rx/DC Orders Clinical Impression: Pseudogout of knee, Osteoarthritis, Current use of long term care phlebotomist anticoagulation Instructions: Arthritis: Exercise, Osteoarthritis Prescriptions: New prednisone 20 mg tablet 20 mg PO DAILY 5 Days Qty: 5 0RF oxycodone-acetaminophen [Endocet] 5-325 mg tablet 1 tab PO Q6H PRN (Reason: pain) 3 Days Qty: 12 0RF No Action rosuvastatin [Crestor] 20 mg tablet 20 mg PO DAILY Qty: 90 3RF metoprolol tartrate 50 MG tablet 50 mg PO DAILY Tresiba FlexTouch U-200 200 unit/mL (3 mL) insulin pen 80 unit SUBCUT BID aspirin [Sara Low Dose Aspirin] 81 mg Tablet,Delayed Release (Dr/Ec) 81 mg PO DAILY lisinopril 10 mg tablet 10 mg PO DAILY Eliquis 5 mg tablet 5 mg PO BID Rx Instructions: Take 2 tablets twice daily for 6 days then take 1 tablet twice daily diclofenac sodium [Voltaren Arthritis Pain] 1 % gel 2 g topical TID PRN PRN (Reason: pain) Qty: 100 2RF Primary Care Provider: Alfonso Carlson Chi Referrals: Alfonso Carlson Chi, MD [Primary Care Provider] - Disposition Disposition: Home, Self Care
[2021-11-30] MEDS: Morphine 4 MG/ML Syringe 6 MG IM (23:21)
[2021-11-30] MEDS: Ondansetron ODT 4 MG Tablet PO (23:21)
[2021-12-01] MEDS: HYDROmorphone 1 MG/ML Syringe IV (00:34)
[2021-12-01 00:41] LABS: Absolute Lymphocyte Count 3.88 X10^3/uL (0.83-4.51); Absolute Neutrophil Count 5.1 X10^3/uL (2.0-7.7); Basophil# 0.06 X10^3/uL; Basophil% 0.6 % (0-1); Eosinophil# 0.21 X10^3/uL; Eosinophils% 2.1 % (0-5); Hemoglobin 12.3 g/dL (12.0-15.0); Lymphocyte # 3.88 X10^3/ul (0.83-4.51); Mean Corp Hgb Conc 31.5 g/dL (32-36); Mean Corpuscular Hgb 25.6 pg (27.0-32.0); Mean Corpuscular Volume 81.3 fL (81-99); Mean Platelet Vol. 9.5 fl (6.2-12.0); Monocyte# 0.96 X10^3/uL; Monocyte% 9.4 % (0-10); NRBC Flagged by Analyzer 0 % (0-5); Neutrophil # 5.07 X10^3/uL (2.7-7.7); Neutrophil % 49.7 % (47-70); Platelet Count 338 K/mm3 (150-450); RBC Distribution Width CV 16.8 % (11.6-14.6); RBC Distribution Width SD 49.5 fl (35.1-43.9); White Blood Count 10.2 K/mm3 (4.4-11.0)
[2021-12-01 00:56] LABS: Anion Gap 5 (5-15); BUN 20 mg/dL (7-18); BUN/Creat Ratio 19.6 RATIO (10-20); CRP 5.52 mg/L (0.0-3.0); Calcium,Total 9.5 mg/dL (8.5-10.1); Chloride 107 mmol/L (98-107); Creatinine, Serum 1.02 mg/dL (0.55-1.02); EST Glomerular Filtration Rate 57 mL/min (>60); Est Glom Filt Rate - Afr Amer 68 mL/min (>60); Estimated Creatinine Clearance 39.43 ml/min; Glucose 206 mg/dL (74-106); Potassium 4.1 mmol/L (3.5-5.1); Sodium Level 137 mmol/L (136-145)
[2021-12-01 01:00] LABS: Lactic Acid 0.3 mmol/L (0.4-1.9)
[2021-12-01] MEDS: oxyCODONE 5 MG Tablet 10 MG PO (01:38)
[2021-12-01] MEDS: dexAMETHasone 10 MG/ML Vial IV (01:38)
[2021-12-01 01:43] VITALS: BP 160/66; PULSE 73; RESP 15; O2SAT 93
== END 2021-12-01 01:46 | disposition home or self-care (01) ==
PROVIDERS: Emergency Provider Emergency Medicine; PCP Family Medicine Geriatric Medicine; Visit Provider Emergency Medicine
DX: M11.261 Other chondrocalcinosis, right knee (principal); M17.11 Unilateral primary osteoarthritis, right knee; Z79.01 Long term (current) use of anticoagulants; Z86.718 Personal history of other venous thrombosis and embolism
CPT/HCPCS: 73564; 80048; 83605; 85025; 86140; 96372; 96374; 96375; 99283; A4216

== ENCOUNTER 2021-12-04 23:30 | Emergency (ER) | payer MEDICARE, SELFPAY ==
[2021-12-04 23:32] VITALS: BP 161/77; PULSE 94; RESP 18; TEMP 36.6; O2SAT 97; BMI 23.1
--- NOTE | 2021-12-04 23:56 | EDS_ITS ---
HPI History of Present Illness Chief Complaint: Lower Extremity Injury Detail of Chief Complaint: Right knee pain Informant: patient Onset/Context/Timing Onset: Days Context: Gradual Onset Current Severity: Severe Maximum Severity: Severe Narrative Narrative: Patient presents complaining of severe right knee pain. She states that she will get flares like this in the past. She was seen in the emergency room on December 01. Work-up including lab work was unremarkable. X-ray showed chronic arthritic changes. She was discharged with prednisone and Percocet. Patient states she does have her Percocet 4 hours ago but has not been able to get pain relief and presents back to the emergency room. She denies any injury. She has had no fever or chills. [facility] Medical History Abscess of right elbow Acute pancreatitis Arthritis Back problem Chest pain Diabetes Elevated hemoglobin A1c Essential (primary) hypertension History of deep venous thrombosis (01/2020) Hormone deficiency Hyperlipidemia Mass of skin of right elbow Seasonal allergies Type 2 diabetes mellitus Home Medications metoprolol tartrate 50 mg tablet 50 mg PO DAILY BLOOD PRESSURE 03/06/19 [History Last Taken 02/17/21] insulin degludec 200 unit/mL (3 mL) subcutaneous pen (Tresiba FlexTouch U-200 insulin) 80 unit subcut BID diabetes 01/21/21 [History Last Taken 02/17/21] aspirin 81 mg tablet,delayed release (Sara Low Dose Aspirin) 81 mg PO DAILY heart health 02/17/21 [History Last Taken 02/17/21] lisinopril 10 mg tablet 10 mg PO DAILY BP 02/17/21 [History Last Taken 02/17/21] apixaban 5 mg tablet (Eliquis) 5 mg PO BID 03/08/21 [History Last Taken Unknown] diclofenac sodium 1 % topical gel (Voltaren Arthritis Pain) 2 g topical TID PRN PRN pain #100 grams 04/02/21 [Rx Last Taken Unknown] rosuvastatin 20 mg tablet (Crestor) 20 mg PO DAILY #90 tabs 09/08/21 [Rx Last Taken Unknown] oxycodone-acetaminophen 5 mg-325 mg tablet (Endocet) 1 tab PO Q6H PRN pain 3 days #12 tabs 12/01/21 [Rx Last Taken Unknown] prednisone 20 mg tablet 20 mg PO DAILY 5 days #5 tabs 12/01/21 [Rx Last Taken Unknown] oxycodone-acetaminophen 5 mg-325 mg tablet (Percocet) 1 tab PO Q6H PRN pain 3 days #10 tabs 12/05/21 [Rx Last Taken Unknown] Allergy/AdvReac Type Severity Reaction Status Date / Time diphenhydramine Allergy Swelling Verified 12/04/21 23:31 [From [facility]] Family History Unknown Breast cancer Colon cancer Myocardial infarction Hypertension Hyperlipidemia Father Heart disease Hypertension Mother Diabetes Hypertension Kidney disease Liver disease Other Arthritis Surgical History History of Social History household members: spouse Smoking Status: Never smoker alcohol intake: never substance use type: does not use what type of physical activity do you participate in: none ROS ROS ED Constitutional Constitutional ED: Denies chills or fever(s) Eyes Eyes: Denies change in vision or discharge from eye(s) ENT ENT ED: Denies discharge from eye(s), rhinorrhea or sore throat Cardiovascular Cardiovascular: Denies chest pain or palpitations Respiratory/Chest Respiratory/Chest: Denies cough or dyspnea Gastrointestinal Gastrointestinal: Denies abdominal pain, diarrhea, nausea or vomiting Genitourinary Genitourinary ED: Denies difficulty urinating or dysuria Musculoskeletal Musculoskeletal: Reports extremity pain; Denies back pain Integumentary Denies Abrasions or rash Neurologic Neurologic: Denies headache(s) or weakness Psychiatric Psychiatric: Denies anxiety or depression Allergic/Immunologic Allergic/Immunologic ED: Denies lip swelling or urticaria EXAM Physical Exam Const Vital Signs: 12/04/21 23:32 Temperature 98 F Temperature Source Temporal Pulse Rate 94 Respiratory Rate 18 Blood Pressure 161/77 H Blood Pressure Mean 105 Pulse Ox 97 Oxygen Delivery Method Room Air Positive well nourished and well developed General Appearance ED: well developed HEENT Reports normocephalic and head/scalp atraumatic Eyes PERRL and EOMs intact bilaterally Neck supple Chest Wall inspection of chest normal and palpation of chest normal Resp normal respiratory effort and clear to auscultation bilaterally Cardio regular rate and regular rhythm GI normal to inspection, nondistended, normoactive bowel sounds Palpation: soft Extremity Extremity Narrative: Right knee is normal to inspection. There is no erythema or edema noted. She points directly over the patella and describing her area of pain. When I asked her to slightly bend her knee to sit her heel on the bed she is able to do this without difficulty. Ligaments are tight on testing. There is no calf or thigh tenderness. Strong distal pulses noted. Neuro oriented x3 and no sensory deficits noted Sensorium / Orientation: alert Motor Exam: strength 5/5 throughout Psych Mood & Affect: anxious Skin no rashes or lesions noted MDM MDM MDM Narrative Medical decision making narrative: Work-up from a couple days ago reviewed. Patient given IM morphine and Toradol. Treatment and Re-Evaluation Narrative: On repeat evaluation she continues to complain of pain. Given her knee exam I have no concern that this is a septic knee or acute infection. I encouraged her to continue using her Voltaren cream topically. She took her last dose of Percocet this afternoon. Given the day that it was written and prescription instructions with quantity she should be out of the medication. I will write her enough to get her through the holiday . I advised her she must see her primary care physician on Tuesday. I will also give her orthopedics number for follow-up as well. Discharge Plan Triage Chief Complaint: Lower Extremity Injury ED Provider: Chrissy Gallagher Dx/Rx/DC Orders Clinical Impression: Right knee sprain Instructions: ED Knee Sprain Prescriptions: New oxycodone-acetaminophen [Percocet] 5-325 mg tablet 1 tab PO Q6H PRN (Reason: pain) 3 Days Qty: 10 0RF No Action rosuvastatin [Crestor] 20 mg tablet 20 mg PO DAILY Qty: 90 3RF metoprolol tartrate 50 MG tablet 50 mg PO DAILY Tresiba FlexTouch U-200 200 unit/mL (3 mL) insulin pen 80 unit SUBCUT BID aspirin [Sara Low Dose Aspirin] 81 mg Tablet,Delayed Release (Dr/Ec) 81 mg PO DAILY lisinopril 10 mg tablet 10 mg PO DAILY Eliquis 5 mg tablet 5 mg PO BID Rx Instructions: Take 2 tablets twice daily for 6 days then take 1 tablet twice daily diclofenac sodium [Voltaren Arthritis Pain] 1 % gel 2 g topical TID PRN PRN (Reason: pain) Qty: 100 2RF prednisone 20 mg tablet 20 mg PO DAILY 5 Days Qty: 5 0RF oxycodone-acetaminophen [Endocet] 5-325 mg tablet 1 tab PO Q6H PRN (Reason: pain) 3 Days Qty: 12 0RF Primary Care Provider: Alfonso Carlson Chi Referrals: Nhan Crowley DO [Med Staff - Active Staff] - As Needed Alfonso Carlson Chi, MD [Primary Care Provider] - As soon as possible Disposition Disposition: Home, Self Care
[2021-12-05] MEDS: Ketorolac 30 MG/ML Syringe IM (00:04)
[2021-12-05] MEDS: morphine 10 MG/ML Syringe IM (00:04)
[2021-12-05 00:44] VITALS: BP 125/88; PULSE 79; RESP 18; O2SAT 94
== END 2021-12-05 00:45 | disposition home or self-care (01) ==
PROVIDERS: Emergency Provider Emergency Medicine; PCP Family Medicine Geriatric Medicine; Visit Provider Emergency Medicine
DX: S83.91XA Sprain of unspecified site of right knee, initial encounter (principal); I10 Essential (primary) hypertension; E78.5 Hyperlipidemia, unspecified; Z86.718 Personal history of other venous thrombosis and embolism; Z79.899 Other long term (current) drug therapy; X58.XXXA Exposure to other specified factors, initial encounter
CPT/HCPCS: 99282; 96372

== ENCOUNTER 2021-12-06 15:19 | Inpatient (IN) | payer MEDICARE, SELFPAY ==
[2021-12-06] VITALS (18 sets, daily range): BP systolic 102–237; BP diastolic 49–91; PULSE 65–99; RESP 12–19; TEMP 34.6–37.1; O2SAT 94–100; BMI 24.2; BMI 23.8
--- NOTE | 2021-12-06 15:28 | CT_ITS ---
EXAM: CT SPINE - CERVICAL WITHOUT IV REASON FOR EXAM: Female, 71 years old. NECK PAIN traumaTechnologist Notes per ems found pt unresponsive . pt is having periods of apnea. pt was given narcan and was more awake. we have to keep giving sternal rubs. has skin tears on her left arm HISTORY: NECK PAIN trauma Individualized dose optimization techniques were used for this CT. TECHNIQUE: Multiplanar images were obtained of the cervical spine. IV contrast was not utilized. COMPARISON: Apr 30 2021 5:41am FINDINGS: The vertebral bodies do maintain their height. The odontoid process is intact. No pre-vertebral soft tissue swelling is seen. The intravertebral disc height is lost. There are scattered lymph nodes in the neck. There are degenerative changes of the osseous structures. There is bilateral facet arthropathy. There are scattered levels of foraminal stenosis. There are vascular calcifications. CT/Spine Cervical without Contras IMPRESSION: Degenerative changes of the cervical spine. There are no acute findings. Electronically Signed: Priyank Gallagher MD at 16:32 EDT ,
--- NOTE | 2021-12-06 15:28 | CT_ITS ---
STUDY: CT BRAIN WITHOUT CONTRAST REASON FOR EXAM: Female, 71 years old. unresponjsive TECHNIQUE: Transaxial CT imaging of the brain was performed without administration of intravenous contrast material. Individualized dose optimization techniques were used for this CT. COMPARISON: 05.03.21 FINDINGS: Normal calvarium. Normal soft tissues. There is mild cerebral atrophy with widening of the extra-axial spaces and ventricular dilatation. Normal white matter tracts of the cerebral hemispheres. Normal basal ganglia and thalami. Normal brainstem. Normal cerebellum. There is no intracranial hemorrhage. There are no findings of an acute ischemic infarction. Normal visualized paranasal sinuses. ASPECTS 10 CT/Brain/Head without Contrast IMPRESSION: There are no acute intracranial findings. Electronically Signed: Priyank Gallagher MD at 16:29 EDT ,
--- NOTE | 2021-12-06 15:35 | CT_ITS ---
We are attempting to reach an attending provider to discuss findings. An addendum with communication details will be sent when the communication is complete. EXAM: CT ANGIOGRAPHY HEAD AND NECK WITH INTRAVENOUS CONTRAST CLINICAL INDICATION: unresponsive TECHNIQUE: [place]/head and neck CT angiography protocol performed with intravenous contrast. This CT exam was performed using one or more of the following dose reduction techniques: automated exposure control, adjustment of the mA and/or kV according to patient size, and/or use of iterative reconstruction technique. This report was created using [employer] report generation technology. MIP reconstructed images were created and reviewed. CONTRAST: IV 100mL Isovue-370 COMPARISON: None. FINDINGS: HEAD: RIGHT ANTERIOR CEREBRAL ARTERY: Unremarkable. No significant stenosis at the visualized segments. Anterior communicating artery is present. No aneurysm. RIGHT MIDDLE CEREBRAL ARTERY: Unremarkable. No significant stenosis at the visualized segments. No aneurysm. RIGHT POSTERIOR CEREBRAL ARTERY: Unremarkable. No occlusion or significant stenosis. No aneurysm. RIGHT INTRACRANIAL INTERNAL CAROTID ARTERY: See below. RIGHT INTRACRANIAL VERTEBRAL ARTERY: Unremarkable. No significant stenosis. No dissection or occlusion. LEFT ANTERIOR CEREBRAL ARTERY: Unremarkable. No significant stenosis at the visualized segments. No aneurysm. LEFT MIDDLE CEREBRAL ARTERY: Unremarkable. No significant stenosis at the visualized segments. No aneurysm. LEFT POSTERIOR CEREBRAL ARTERY: Unremarkable. No occlusion or significant stenosis. No aneurysm. LEFT INTRACRANIAL INTERNAL CAROTID ARTERY: See below. LEFT INTRACRANIAL VERTEBRAL ARTERY: Unremarkable. No significant stenosis. No dissection or occlusion. BASILAR ARTERY: Unremarkable. No significant stenosis. No aneurysm. OTHER VASCULATURE: There is mild atherosclerotic plaque formation of the origin of the right internal carotid artery with less than 50% cross sectional diameter stenosis. ALL ABOVE CRITERIA BY NASCET. There is mild atherosclerotic plaque formation of the origin of the left internal carotid artery with less than 50% cross sectional diameter stenosis. ALL ABOVE CRITERIA BY NASCET. There is calcified plaque formation of the right cavernous carotid artery, with a mild stenosis (less than 50%). ALL ABOVE CRITERIA BY NASCET. NECK: RIGHT COMMON CAROTID ARTERY: Unremarkable. No significant stenosis. No dissection or occlusion. RIGHT EXTRACRANIAL INTERNAL CAROTID ARTERY: See above. RIGHT EXTERNAL CAROTID ARTERY: Unremarkable. No occlusion. RIGHT EXTRACRANIAL VERTEBRAL ARTERY: Unremarkable. No significant stenosis. No dissection or occlusion. LEFT COMMON CAROTID ARTERY: Unremarkable. No significant stenosis. No dissection or occlusion. LEFT EXTRACRANIAL INTERNAL CAROTID ARTERY: See above. LEFT EXTERNAL CAROTID ARTERY: There is extensive atherosclerotic plaque formation of the origin of the left external carotid artery with an estimated stenosis of greater than 70%. ALL ABOVE CRITERIA BY NASCET. No occlusion. LEFT EXTRACRANIAL VERTEBRAL ARTERY: Unremarkable. No significant stenosis. No dissection or occlusion. GREAT VESSELS OF AORTIC ARCH: There is calcified plaque formation of the left cavernous carotid artery, with a mild stenosis (less than 50%). ALL ABOVE CRITERIA BY NASCET. LUNG APICES: Unremarkable as visualized. HEAD and NECK: BONES/JOINTS: There are degenerative findings of the cervical spine. No discrete lytic or blastic abnormalities. SOFT TISSUES: Unremarkable. CAROTID STENOSIS REFERENCE USING NASCET CRITERIA: % ICA stenosis = (1 - narrowest ICA diameter/diameter of distal cervical ICA) x 100. Mild - <50% stenosis. Moderate - 50-69% stenosis. Severe - 70-94% stenosis. Near occlusion - 95-99% stenosis. Occluded - 100% stenosis. CT/STROKE CTA Head AND Neck W/Con IMPRESSION: 1. There is mild atherosclerotic plaque formation of the origin of the right internal carotid artery with less than 50% cross sectional diameter stenosis. ALL ABOVE CRITERIA BY NASCET. 2. There is mild atherosclerotic plaque formation of the origin of the left internal carotid artery with less than 50% cross sectional diameter stenosis. ALL ABOVE CRITERIA BY NASCET. 3. There is calcified plaque formation of the right cavernous carotid artery, with a mild stenosis (less than 50%). ALL ABOVE CRITERIA BY NASCET. 4. There is calcified plaque formation of the left cavernous carotid artery, with a mild stenosis (less than 50%). ALL ABOVE CRITERIA BY NASCET. 5. There is extensive atherosclerotic plaque formation of the origin of the left external carotid artery with an estimated stenosis of greater than 70%. ALL ABOVE CRITERIA BY NASCET. Electronically Signed: Priyank Gallagher MD at 16:18 EDT ,
--- NOTE | 2021-12-06 15:36 | EKG12_ITS ---
Test Reason : UNRESP Blood Pressure : / mmHG Vent. Rate : 082 BPM Atrial Rate : 082 BPM P-R Int : 124 ms QRS Dur : 074 ms QT Int : 416 ms P-R-T Axes : 037 -25 055 degrees QTc Int : 486 ms Normal sinus rhythm Minimal voltage criteria for LVH, may be normal variant ( R in aVL ) Borderline ECG Confirmed by SHABANA KLEIN, ANTONIO ([id number]), video effects editor CHECO VELASCO ([id number]) on 12/08/2021 9:19:43 AM Referred By: Confirmed By:VITA DONALD MD
[2021-12-06 15:47] LABS: Absolute Lymphocyte Count 8.77 X10^3/uL (0.83-4.51); Absolute Neutrophil Count 5.1 X10^3/uL (2.0-7.7); Basophil# 0.07 X10^3/uL; Basophil% 0.4 % (0-1); Eosinophil# 0.35 X10^3/uL; Eosinophils% 2.2 % (0-5); Hematocrit 44.3 % (37-47); Hemoglobin 13.5 g/dL (12.0-15.0); Lymphocyte # 8.77 X10^3/ul (0.83-4.51); Lymphocyte % 55.2 % (19-41); Mean Corp Hgb Conc 30.5 g/dL (32-36); Mean Corpuscular Hgb 25.8 pg (27.0-32.0); Mean Corpuscular Volume 84.5 fL (81-99); Mean Platelet Vol. 9.7 fl (6.2-12.0); Monocyte# 1.58 X10^3/uL; Monocyte% 9.9 % (0-10); NRBC Flagged by Analyzer 0 % (0-5); Neutrophil # 5.06 X10^3/uL (2.7-7.7); Neutrophil % 31.9 % (47-70); POSITIVE DIFFERENTIAL YES; POSITIVE MORPHOLOGY YES; Platelet Count 363 K/mm3 (150-450); RBC Distribution Width CV 17.3 % (11.6-14.6); RBC Distribution Width SD 53.6 fl (35.1-43.9); Red Blood Count 5.24 M/mm3 (4.2-5.4); White Blood Count 15.9 K/mm3 (4.4-11.0)
--- NOTE | 2021-12-06 15:48 | CT_ITS ---
We are attempting to reach an attending provider to discuss findings. An addendum with communication details will be sent when the communication is complete. EXAM: CT ANGIOGRAPHY CHEST, ABDOMEN AND PELVIS WITH INTRAVENOUS CONTRAST CLINICAL INDICATION: UNRESPONSIVE TECHNIQUE: Helically acquired angiography images were obtained of the chest, abdomen and pelvis with intravenous contrast. This CT exam was performed using one or more of the following dose reduction techniques: automated exposure control, adjustment of the mA and/or kV according to patient size, and/or use of iterative reconstruction technique. This report was created using [employer] report generation technology. MIP reconstructed images were created and reviewed. CONTRAST: IV 100mL Isovue-370 COMPARISON: 08.13.21 FINDINGS: VASCULATURE: AORTA: There is atherosclerotic calcification of the aortic arch with tortuosity and elongation of the aortic arch and descending thoracic aorta. There are calcifications of the abdominal aorta. This is consistent for atherosclerotic disease. There is no abdominal aortic aneurysm. No dissection. PULMONARY ARTERIES: There is diffuse right pulmonary embolism but no heart strain. Normal in caliber. GREAT VESSELS OF AORTIC ARCH: Unremarkable. Normal in caliber. No dissection. CELIAC TRUNK AND MESENTERIC ARTERIES: Celiac and superior mesenteric arteries: There is mild diffuse narrowing. Inferior mesenteric artery: There is mild diffuse narrowing. No dissection. RENAL ARTERIES: Right renal artery(arteries): There is mild diffuse narrowing. Left renal artery(arteries): There is mild diffuse narrowing. No dissection. ILIAC ARTERIES: Right common iliac artery: There is mild diffuse narrowing. Right external iliac artery: There is mild diffuse narrowing. Right internal iliac artery: There is mild diffuse narrowing. Left common iliac artery: There is mild diffuse narrowing. Left external iliac artery: There is mild diffuse narrowing. Left internal iliac artery: There is mild diffuse narrowing. No dissection. CHEST: LUNGS AND PLEURAL SPACES: There is no pneumothorax. There is no demonstrated pleural abnormality. No mass. HEART: There are calcifications of the coronary arteries. Heart size is normal. No pericardial effusion. MEDIASTINUM: Unremarkable. No mediastinal or hilar adenopathy. Esophagus is unremarkable. No hiatal hernia. THYROID: Unremarkable. No thyroid lesions. ABDOMEN: LIVER: There is decreased attenuation of the liver consistent with steatosis. GALLBLADDER AND BILE DUCTS: Unremarkable. No calcified gallstones. No gallbladder distention or wall edema. No intra- or extrahepatic biliary ductal dilation. PANCREAS: Unremarkable. No focal cystic or solid mass. SPLEEN: Unremarkable. Normal size without focal cystic or solid mass. ADRENALS: Unremarkable. No nodules. KIDNEYS AND URETERS: Unremarkable. Normal renal size and position. No hydronephrosis. STOMACH AND BOWEL: Focal wall thickening of the antrum of stomach. This can suggest a gastritis. No stomach or bowel distention. PELVIS: APPENDIX: The appendix is visualized and appears normal. BLADDER: Normal urinary bladder. REPRODUCTIVE: There is absence of the uterus consistent with a prior hysterectomy. CHEST, ABDOMEN and PELVIS: INTRAPERITONEAL SPACE: Unremarkable. No ascites or other fluid collection. No free air. BONES/JOINTS: There are degenerative changes of the shoulders. There are multi-level degenerative changes of the thoracic spine. There are diffuse degenerative changes of the visualized lumbar spine. No suspicious lytic or blastic abnormality. SOFT TISSUES: Minimal inflammatory stranding noted in the right and left subcutaneous fat anteriorly. This can suggest insulin injection sites. Gluteal calcifications. There is an umbilical hernia containing fat. LYMPH NODES: Unremarkable. No enlarged lymph nodes. CT/CTA Chst, Abd, Pel W and/or WO IMPRESSION: 1. There is diffuse right pulmonary embolism but no heart strain. 2. There is decreased attenuation of the liver consistent with steatosis. 3. Focal wall thickening of the antrum of stomach. This can suggest a gastritis. Electronically Signed: Priyank Gallagher MD at 16:51 EDT ,
[2021-12-06 15:51] LABS: Differential Indicated SCAN CRITERIA MET
[2021-12-06] MEDS: Naloxone 0.4 MG/ML Syringe IV (15:54)
--- NOTE | 2021-12-06 15:57 | EDS_ITS ---
HPI History of Present Illness Chief Complaint: Unresponsive Informant: spouse/S.O. and EMS Narrative Narrative: 71-year-old female was found sitting naked in a chair today by her and unresponsive. EMS arrived and they note they did administer some Narcan and she seemed to be a little bit more awake. They note that she does stop breathing and the nurses have started to assist her in breathing at times. Patient was in the emergency department twice recently with knee pain and each time was prescribed oxycodone/acetaminophen. The physician that cared for her last notes that she stated that she had taken the last of the pills that morning before her visit. However there were 2 pill bottles in the room that her brought in one has 5 tablets and the other one has 8. There are skin tears on her left forearm thought to be from her bracelets. There is no other source of trauma that we see. [facility] Medical History Abscess of right elbow Acute pancreatitis Arthritis Back problem Chest pain Diabetes Elevated hemoglobin A1c Essential (primary) hypertension History of deep venous thrombosis (01/2020) Hormone deficiency Hyperlipidemia Mass of skin of right elbow Seasonal allergies Type 2 diabetes mellitus Home Medications metoprolol tartrate 50 mg tablet 50 mg PO DAILY BLOOD PRESSURE 03/06/19 [History Last Taken 02/17/21] insulin degludec 200 unit/mL (3 mL) subcutaneous pen (Tresiba FlexTouch U-200 insulin) 80 unit subcut BID diabetes 01/21/21 [History Last Taken 02/17/21] aspirin 81 mg tablet,delayed release (Sara Low Dose Aspirin) 81 mg PO DAILY heart health 02/17/21 [History Last Taken 02/17/21] lisinopril 10 mg tablet 10 mg PO DAILY BP 02/17/21 [History Last Taken 02/17/21] apixaban 5 mg tablet (Eliquis) 5 mg PO BID 03/08/21 [History Last Taken Unknown] diclofenac sodium 1 % topical gel (Voltaren Arthritis Pain) 2 g topical TID PRN PRN pain #100 grams 04/02/21 [Rx Last Taken Unknown] rosuvastatin 20 mg tablet (Crestor) 20 mg PO DAILY #90 tabs 09/08/21 [Rx Last Taken Unknown] oxycodone-acetaminophen 5 mg-325 mg tablet (Endocet) 1 tab PO Q6H PRN pain 3 days #12 tabs 12/01/21 [Rx Last Taken Unknown] prednisone 20 mg tablet 20 mg PO DAILY 5 days #5 tabs 12/01/21 [Rx Last Taken Unknown] oxycodone-acetaminophen 5 mg-325 mg tablet (Percocet) 1 tab PO Q6H PRN pain 3 days #10 tabs 12/05/21 [Rx Last Taken Unknown] Allergy/AdvReac Type Severity Reaction Status Date / Time diphenhydramine Allergy Swelling Verified 12/06/21 15:35 [From Benadryl] Family History Unknown Breast cancer Colon cancer Myocardial infarction Hypertension Hyperlipidemia Father Heart disease Hypertension Mother Diabetes Hypertension Kidney disease Liver disease Other Arthritis Surgical History History of Social History household members: spouse Smoking Status: Never smoker alcohol intake: never substance use type: does not use what type of physical activity do you participate in: none ROS ROS ED Review of Systems ROS Unobtainable: due to mental status EXAM Physical Exam Const Vital Signs: 12/06/21 15:20 12/06/21 16:02 12/06/21 16:04 Temperature 97.5 F L 94.2 F L Temperature Source Temporal Core Pulse Rate 80 99 Respiratory Rate 18 15 Respiratory Effort Respiratory Depth Respiratory Pattern Blood Pressure 237/91 H 196/89 H Blood Pressure Mean 139 124 Pulse Ox 97 97 Oxygen Delivery Method Room Air Room Air Fraction of Inspired Oxygen (FIO2) 12/06/21 16:18 12/06/21 16:17 12/06/21 16:39 Temperature 95.0 F L Temperature Source Core Pulse Rate 85 Respiratory Rate 14 Respiratory Effort Accessory Muscle Use Head Bobbing Respiratory Depth Shallow Respiratory Pattern Normal Apnea Blood Pressure Blood Pressure Mean Pulse Ox 96 Oxygen Delivery Method Fraction of Inspired Oxygen (FIO2) 35 Positive well nourished, well developed and obese General Appearance ED: well developed Nutritional Appearance: obese HEENT Reports normocephalic, head/scalp atraumatic and moist mucous membranes Eyes Eyes Narrative: Pupils are 5 mm with no apparent corneal reflex Neck no lymphadenopathy, supple and no JVD Resp clear to auscultation bilaterally Resp Narrative: Variable respiratory effort Cardio regular rate, regular rhythm and no murmurs GI normal to inspection, nondistended, normoactive bowel sounds and non-tender Palpation: soft Back/Spine no CVA tenderness and normal ROM Extremity General Extremety ED: Negative for edema General Extremity: Negative for edema Neuro Sensorium / Orientation: stuporous Skin no rashes or lesions noted Skin Narrative: There are approximately three 1 to 2 cm skin tears on the dorsum of the left forearm MDM MDM MDM Narrative Medical decision making narrative: Patient's breathing was supported. We took her right to the CT scanner for CT of the head and then CTA head and neck. Both of these appeared negative on initial read by myself so I asked to go ahead and scan the chest abdomen pelvis. Patient was brought back to the room. She has a white count of 15.9. Temperature sensitive Mcpherson catheter was placed and she was hypothermic at 94.9. Most likely hypothermic after spending how long she did unresponsive naked in a chair. We administered another dose of Narcan and the patient was able to open her eyes but then vomited. She then closed her eyes and had recurrent apnea. More Narc an was administered without any significant change in her recurrent apnea which she would drop into the 80s while on nasal cannula. At this time we made the decision to intubate the patient. Patient received 20 of etomidate using the glide scope a 7.5 endotracheal tube was secured at 22 cm on the first attempt. Equal breath sounds and color change capnography were positive. Post intubation x-ray shows that the tube was advanced after being placed by myself. This was pulled back. OG tube placed. She was Sedated on propofol. CTA of the chest is positive for right-sided pulmonary embolism. She is supposed to be on Eliquis but I do not know if she has been taking it. We started her on heparin drip. Lab Data Attestation: I reviewed the patient's lab results. Labs: Laboratory Results - last 24 hr 12/06/21 12/06/21 12/06/21 15:10 15:10 15:10 WBC 15.9 H RBC 5.24 Hgb 13.5 Hct 44.3 MCV 84.5 MCH 25.8 L MCHC 30.5 L RDW Std Deviation 53.6 H RDW Coeff of Melvina 17.3 H Plt Count 363 MPV 9.7 Immature Gran % (Auto) 0.400 Neut % (Auto) 31.9 L Lymph % (Auto) 55.2 H [place] % (Auto) 9.9 Eos % (Auto) 2.2 Baso % (Auto) 0.4 Absolute Neuts (auto) 5.1 Absolute Lymphs (auto) 8.77 H Nucleated RBC % 0 Differential Comment SCANNED Diff Path Review May foll Reactive Lymphocytes 2+ PT Cancelled INR Cancelled APTT Cancelled Sodium 138 Potassium 3.8 Chloride 104 Carbon Dioxide 25.0 Anion Gap 9 BUN 20 H Creatinine 0.87 Estim Creat Clear Calc 46.23 Est GFR (MDRD) Af Amer 82 Est GFR (MDRD) Non-Af 68 BUN/Creatinine Ratio 23.1 H Glucose 181 H Lactic Acid Calcium 8.9 Total Bilirubin 0.70 AST 21 ALT 25 Alkaline Phosphatase 65 Troponin I High Sens 9 Total Protein 7.5 Albumin 3.3 Globulin 4.2 Albumin/Globulin Ratio 0.8 L Lipase 124 Urine Color Urine Clarity Urine pH Ur Specific Wells Urine Protein Urine Glucose (UA) Urine Ketones Urine Occult Blood Urine Nitrite Urine Bilirubin Urine Urobilinogen Ur Leukocyte Esterase Ur Drug Screen Comment Ethyl Alcohol POC Glucose 12/06/21 12/06/21 12/06/21 15:47 15:48 15:49 WBC RBC Hgb Hct MCV MCH MCHC RDW Std Deviation RDW Coeff of Melvina Plt Count MPV Immature Gran % (Auto) Neut % (Auto) Lymph % (Auto) [place] % (Auto) Eos % (Auto) Baso % (Auto) Absolute Neuts (auto) Absolute Lymphs (auto) Nucleated RBC % Differential Comment Diff Path Review Reactive Lymphocytes PT INR APTT Sodium Potassium Chloride Carbon Dioxide Anion Gap BUN Creatinine Estim Creat Clear Calc Est GFR (MDRD) Af Amer Est GFR (MDRD) Non-Af BUN/Creatinine Ratio Glucose Lactic Acid 1.3 Calcium Total Bilirubin AST ALT Alkaline Phosphatase Troponin I High Sens Total Protein Albumin Globulin Albumin/Globulin Ratio Lipase Urine Color Urine Clarity Urine pH Ur Specific Wells Urine Protein Urine Glucose (UA) Urine Ketones Urine Occult Blood Urine Nitrite Urine Bilirubin Urine Urobilinogen Ur Leukocyte Esterase Ur Drug Screen Comment Ethyl Alcohol < 3.0 POC Glucose 221 H 12/06/21 12/06/21 12/06/21 15:49 16:10 16:10 WBC RBC Hgb Hct MCV MCH MCHC RDW Std Deviation RDW Coeff of Melvina Plt Count MPV Immature Gran % (Auto) Neut % (Auto) Lymph % (Auto) [place] % (Auto) Eos % (Auto) Baso % (Auto) Absolute Neuts (auto) Absolute Lymphs (auto) Nucleated RBC % Differential Comment Diff Path Review Reactive Lymphocytes PT 14.1 INR 1.1 APTT 50.8 H Sodium Potassium Chloride Carbon Dioxide Anion Gap BUN Creatinine Estim Creat Clear Calc Est GFR (MDRD) Af Amer Est GFR (MDRD) Non-Af BUN/Creatinine Ratio Glucose Lactic Acid Calcium Total Bilirubin AST ALT Alkaline Phosphatase Troponin I High Sens Total Protein Albumin Globulin Albumin/Globulin Ratio Lipase Urine Color Yellow Urine Clarity Cloudy Urine pH 5.0 Ur Specific Wells 1.020 Urine Protein 30 H Urine Glucose (UA) 250 H Urine Ketones Negative Urine Occult Blood 25 H Urine Nitrite Negative Urine Bilirubin Negative Urine Urobilinogen Normal Ur Leukocyte Esterase 500 H Ur Drug Screen Comment Ethyl Alcohol POC Glucose ABG Data ABG results: ABG 12/06/21 15:55 Specimen Type ART Sample Site L Radial pH 7.32 L Bicarbonate Actual 23.6 Total CO2 25 Base Excess -3 L O2 Saturation 89 L O2 % 21 ABG pCO2 46.2 H ABG pO2 62 L Radiography Diagnostic Testing: Clinical Impression(s) from Imaging Studies Brain CT 12/06/21 15:28 IMPRESSION: There are no acute intracranial findings. Electronically Signed: Priyank Gallagher MD at 16:29 EDT , Cervical Spine CT 12/06/21 15:28 IMPRESSION: Degenerative changes of the cervical spine. There are no acute findings. Electronically Signed: Priyank Gallagher MD at 16:32 EDT , Head/Neck CTA 12/06/21 15:35 IMPRESSION: 1. There is mild atherosclerotic plaque formation of the origin of the right internal carotid artery with less than 50% cross sectional diameter stenosis. ALL ABOVE CRITERIA BY NASCET. 2. There is mild atherosclerotic plaque formation of the origin of the left internal carotid artery with less than 50% cross sectional diameter stenosis. ALL ABOVE CRITERIA BY NASCET. 3. There is calcified plaque formation of the right cavernous carotid artery, with a mild stenosis (less than 50%). ALL ABOVE CRITERIA BY NASCET. 4. There is calcified plaque formation of the left cavernous carotid artery, with a mild stenosis (less than 50%). ALL ABOVE CRITERIA BY NASCET. 5. There is extensive atherosclerotic plaque formation of the origin of the left external carotid artery with an estimated stenosis of greater than 70%. ALL ABOVE CRITERIA BY NASCET. Electronically Signed: Priyank Gallagher MD at 16:18 EDT , ADDENDUM: 12/06/21 1629 IMPRESSION: 1. There is mild atherosclerotic plaque formation of the origin of the right internal carotid artery with less than 50% cross sectional diameter stenosis. ALL ABOVE CRITERIA BY NASCET. 2. There is mild atherosclerotic plaque formation of the origin of the left internal carotid artery with less than 50% cross sectional diameter stenosis. ALL ABOVE CRITERIA BY NASCET. 3. There is calcified plaque formation of the right cavernous carotid artery, with a mild stenosis (less than 50%). ALL ABOVE CRITERIA BY NASCET. 4. There is calcified plaque formation of the left cavernous carotid artery, with a mild stenosis (less than 50%). ALL ABOVE CRITERIA BY NASCET. 5. There is extensive atherosclerotic plaque formation of the origin of the left external carotid artery with an estimated stenosis of greater than 70%. ALL ABOVE CRITERIA BY NASCET. N.B. : The above Results were Read Back by Priyank Gallagher MD to Dr. Melani MD, and understanding confirmed on 12/06/2021 16:22:58 (ET). Electronically Signed: Priyank Gallagher MD at 16:18 EDT , Chest/Abdomen/Pelvis CTA 12/06/21 15:48 IMPRESSION: 1. There is diffuse right pulmonary embolism but no heart strain. 2. There is decreased attenuation of the liver consistent with steatosis. 3. Focal wall thickening of the antrum of stomach. This can suggest a gastritis. Electronically Signed: Priyank Gallagher MD at 16:51 EDT , ADDENDUM: 12/06/21 1658 IMPRESSION: 1. There is diffuse right pulmonary embolism but no heart strain. 2. There is decreased attenuation of the liver consistent with steatosis. 3. Focal wall thickening of the antrum of stomach. This can suggest a gastritis. N.B. : The above Results were Read Back by Priyank Gallagher MD to Dr. Melani MD, and understanding confirmed on 12/06/2021 16:51:58 (ET). Electronically Signed: Priyank Gallagher MD at 16:51 EDT , Chest X-Ray 12/06/21 16:30 IMPRESSION: There is an endotracheal tube in place. The tip is 12 mm above the sarah. This is low and should be pulled back by 41 mm. Electronically Signed: Priyank Gallagher MD at 16:54 EDT , Chest X-Ray 12/06/21 16:38 IMPRESSION: There are no acute findings. Electronically Signed: Priyank Gallagher MD at 16:53 EDT , EKG Initial EKG: Attestation: I personally reviewed and interpreted this EKG as follows: Comments: Sinus rhythm with a ventricular rate of 82 bpm Critical Care Time Critical Care Time: Yes Critical care time (excluding procedures): 30-74 minutes (37), Including time spent:, Discussing w/Patient &/or Family/In Home Sales Consultant, Discussing w/Consultants, Arranging Admission or Transfer and Performing Direct Patient Care at Bedside Discharge Plan Dx/Rx/DC Orders Clinical Impression: Respiratory failure, Hypothermia, Hypertensive urgency, Skin tear of forearm without complication, Pulmonary embolism Disposition Disposition: Acute Care Hospital [facility]
[2021-12-06] MEDS: Naloxone 2 MG/2 ML Syringe IV ×2 (15:58→16:10)
[2021-12-06 16:01] LABS: Base Excess -3 mmol/L (-2 to +2); Bicarbonate 23.6 mmol/L (22-26); Blood Gas Specimen Type ART; FI02 21; PO2 62 mmHG (75-100); SITE L Radial; SO2 89 % (95-99); Total Carbon Dioxide 25 mmol/L; pCO2 46.2 mmHg (35-45); pH 7.32 (7.35-7.45)
[2021-12-06] MEDS: Ondansetron 4 MG/2 ML Vial IV (16:01)
[2021-12-06] MEDS: 0.9% Normal Saline 1,000 ML 150 ML IV (16:03)
[2021-12-06 16:06] LABS: ALB/GLOB Ratio 0.8 RATIO (0.9-2.4); AST(SGOT) 21 U/L (15-37); Alanine Aminotransfer ALT/SGPT 25 U/L (13-56); Albumin, Serum 3.3 g/dL (3.2-5.0); Alkaline Phosphatase 65 U/L (45-117); Anion Gap 9 (5-15); BUN 20 mg/dL (7-18); BUN/Creat Ratio 23.1 RATIO (10-20); Calcium,Total 8.9 mg/dL (8.5-10.1); Chloride 104 mmol/L (98-107); Creatinine, Serum 0.87 mg/dL (0.55-1.02); EST Glomerular Filtration Rate 68 mL/min (>60); Est Glom Filt Rate - Afr Amer 82 mL/min (>60); Estimated Creatinine Clearance 46.23 ml/min; Globulin 4.2 g/dL (2.2-4.2); Glucose 181 mg/dL (74-106); Lipase 124 U/L (73-393); Potassium 3.8 mmol/L (3.5-5.1); Protein, Total 7.5 g/dL (6.4-8.2); Sodium Level 138 mmol/L (136-145); Troponin-I HS 9 pg/mL (3.0-54.0)
[2021-12-06 16:08] LABS: International Normalized Ratio 1.1; Prothrombin Time (Protime)PT. 14.1 SECONDS (11.7-14.9)
[2021-12-06 16:09] LABS: Partial Thromboplast Time 50.8 Seconds (24.1-36.2)
[2021-12-06 16:12] LABS: Differential Comment SCANNED; Reactive Lymphocyte 2+
[2021-12-06 16:14] LABS: Alcohol, Blood (Medical)-Serum < 3.0 mg/dL
[2021-12-06 16:21] LABS: Lactic Acid 1.3 mmol/L (0.4-1.9)
[2021-12-06] MEDS: Propofol 10MG/Ml 1,000 MG/100 ML Bottle 3.6 MG CONT INF (16:21)
--- NOTE | 2021-12-06 16:30 | RAD_ITS ---
STUDY: X-RAY CHEST REASON FOR EXAM: Female, 71 years old. unresponsive TECHNIQUE: XR Chest 1 View COMPARISON: 08.13.21 FINDINGS: There is no demonstrated pleural abnormality. There is an endotracheal tube in place. The tip is 12 mm above the sarah. This is low and should be pulled back by 41 mm. There is an NGT in place. Normal size heart. Normal mediastinum and coco. Normal visualized pulmonary arteries. There is atherosclerotic calcification of the aortic arch with tortuosity. There are diffuse degenerative changes of the visualized thoracic spine. There is degenerative osteoarthritis of the bilateral shoulders. There is no demonstrated abnormality of the visualized soft tissue structures of the upper abdomen. RAD/Chest 1 View (Portable) IMPRESSION: There is an endotracheal tube in place. The tip is 12 mm above the sarah. This is low and should be pulled back by 41 mm. Electronically Signed: Priyank Gallagher MD at 16:54 EDT ,
--- NOTE | 2021-12-06 16:31 | ED.RN ---
NS on fluid warmer.
--- NOTE | 2021-12-06 16:38 | RAD_ITS ---
STUDY: X-RAY CHEST REASON FOR EXAM: Female, 71 years old. ETT PLACEMENT #2 TECHNIQUE: XR Chest 1 View COMPARISON: Study done earlier today. FINDINGS: There are bilateral pleural effusions. There are bilateral infiltrates. There is no pneumothorax. There is an NGT and ET tube in place. Et tube tip is 48 mm above the sarah. Normal size heart. Normal mediastinum and coco. Normal visualized pulmonary arteries. There is atherosclerotic calcification of the aortic arch with tortuosity. There are diffuse degenerative changes of the visualized thoracic spine. There is degenerative osteoarthritis of the bilateral shoulders. There is no demonstrated abnormality of the visualized soft tissue structures of the upper abdomen. RAD/Chest 1 View (Portable) IMPRESSION: There are no acute findings. Electronically Signed: Priyank Gallagher MD at 16:53 EDT ,
[2021-12-06 16:48] LABS: Mucous, Urine 0 SEEN /hpf (<or=2+); Red Blood Cells-Urine 0 SEEN /hpf (0-5)
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
[2021-12-06 16:50] LABS: Color, Urine Yellow (Yellow); Glucose, Dipstick 250 mg/dl (Normal); Ketone-Dipstick Negative (Negative); Leukocyte Esterase-Dipstick 500 /ul (Negative); Nitrite-Dipstick Negative (Negative); Occult Blood-Urine 25 /ul (Negative); Protein-Dipstick 30 mg/dl (Negative); Urine Bilirubin Dipstick Negative (Negative); Urine Clarity Cloudy (Clear); Urine Urobilinogen Normal (Normal)
--- NOTE | 2021-12-06 16:50 | ED.RN ---
due to critical care assessment, these are specific times Dr. Polo at bedside 1610- 16g temp boyd cath inserted aseptic technique, cath secure used. bag below bed. ua collected. -temp. 94.8 warm blankets applied. 1617-20mg of etomidate given 197/50, hr86 100% RA, resp. 13 1618- dr. Polo inserts ett 7.5@24 at [facility] 1619 OG- 18fr 1619- 85hr, 96% 20bvm, 197/67 1620 fluid warmer 1621 3.6, 10mcg/kg/min of propofol 1626- 76 hr, 100%, 17 resp. 152/62 94.8 tmp boyd 1629- ETT backed out to 23 at [facility].
[2021-12-06 16:57] LABS: White Blood Cells 0-5 SEEN /hpf (0-5)
[2021-12-06 17:00] LABS: Bedside Glucose 221 mg/dL (74-106)
[2021-12-06 17:03] LABS: Bacteria 4+ /hpf (None Seen); Squamous Epithelial Cells - UA 0-5 SEEN /hpf (5-10)
[2021-12-06 17:23] LABS: Amphetamine Urine VISTA NEGATIVE (<1000 ng/mL); Barbiturate Urine VISTA NEGATIVE (< 200 ng/mL); Benzodiazepine Urine VISTA NEGATIVE (< 200 ng/mL); Cocaine Urine VISTA NEGATIVE (< 300 ng/mL); Ecstacy Urine VISTA NEGATIVE (< 500 ng/mL); Methadone Urine VISTA NEGATIVE (< 300 ng/mL); PCP Urine VISTA NEGATIVE (< 25 ng/mL); THC Urine VISTA NEGATIVE (< 50 ng/mL); Vista UDS pH Range 5
[2021-12-06] MEDS: Heparin Injection (Vial) 5,000 UNIT/ML VIAL 4000 UNIT IV (17:30)
[2021-12-06] MEDS: HEPARIN/D5w 25,000 UNITS 25,000 UNITS/250 ML IV.SOLN. 8 UNITS CONT INF (17:34)
[2021-12-06] MEDS: Lactated Ringers 1,000 ML 100 ML IV (18:38)
[2021-12-06] MEDS: Insulin Lispro 100 UNIT/ML INSULN.PEN SC (18:43)
[2021-12-06 19:05] LABS: CPK Total, Creatine Kinase 117 U/L (26-192); Triglycerides 231 mg/dL
[2021-12-06 19:05] LABS: Bedside Glucose 203 mg/dL (74-106)
[2021-12-06 19:08] LABS: Troponin-I HS 15 pg/mL (3.0-54.0)
--- NOTE | 2021-12-06 19:22 | NURSING ---
Left wrist bracelet tight, unable to slide off without causing skin damage. Per the patients permission, bracelet cut off. took bracelet. 2 pill bottles labeled Percocet given to patients to take home.
[2021-12-06 19:50] LABS: Base Excess -3 mmol/L (-2 to +2); Blood Gas Specimen Type ART; FI02 21; Mode AC; O2 Delivery Device Adult Vent; PEEP 5; PO2 77 mmHG (75-100); RR 14; SITE L Radial; SO2 97 % (95-99); Total Carbon Dioxide 21 mmol/L; Vt 450; pCO2 24.8 mmHg (35-45); pH 7.52 (7.35-7.45)
[2021-12-06 21:24] LABS: Troponin-I HS 18 pg/mL (3.0-54.0)
[2021-12-06 23:40] LABS: Bedside Glucose 118 mg/dL (74-106)
[2021-12-06 23:40] LABS: Base Excess -2 mmol/L (-2 to +2); Bicarbonate 20.8 mmol/L (22-26); Blood Gas Specimen Type ART; FI02 21; Mode AC; O2 Delivery Device Adult Vent; PEEP 5; PO2 81 mmHG (75-100); RR 14; SITE R Radial; SO2 97 % (95-99); Total Carbon Dioxide 22 mmol/L; Vt 420; pCO2 24.6 mmHg (35-45); pH 7.54 (7.35-7.45)
[2021-12-07] VITALS (35 sets, daily range): BP systolic 95–199; BP diastolic 44–111; PULSE 55–111; RESP 10–21; TEMP 37.2–37.8; O2SAT 92–100
[2021-12-07 00:43] LABS: Troponin-I HS 23 pg/mL (3.0-54.0)
[2021-12-07 01:10] LABS: Partial Thromboplast Time > 200.0 Seconds (24.1-36.2)
[2021-12-07 04:14] LABS: Absolute Lymphocyte Count 4.12 X10^3/uL (0.83-4.51); Absolute Neutrophil Count 8.7 X10^3/uL (2.0-7.7); Basophil# 0.05 X10^3/uL; Basophil% 0.4 % (0-1); Eosinophil# 0.17 X10^3/uL; Eosinophils% 1.2 % (0-5); Hematocrit 37.1 % (37-47); Hemoglobin 12.2 g/dL (12.0-15.0); Lymphocyte # 4.12 X10^3/ul (0.83-4.51); Lymphocyte % 28.9 % (19-41); Mean Corp Hgb Conc 32.9 g/dL (32-36); Mean Corpuscular Hgb 26.7 pg (27.0-32.0); Mean Corpuscular Volume 81.2 fL (81-99); Mean Platelet Vol. 9.3 fl (6.2-12.0); Monocyte# 1.17 X10^3/uL; Monocyte% 8.2 % (0-10); NRBC Flagged by Analyzer 0 % (0-5); Neutrophil # 8.73 X10^3/uL (2.7-7.7); Platelet Count 276 K/mm3 (150-450); RBC Distribution Width CV 17.3 % (11.6-14.6); RBC Distribution Width SD 51.2 fl (35.1-43.9); Red Blood Count 4.57 M/mm3 (4.2-5.4); White Blood Count 14.3 K/mm3 (4.4-11.0)
[2021-12-07] MEDS: Lactated Ringers 1,000 ML 100 ML IV ×2 (04:26→13:50)
[2021-12-07 04:32] LABS: ALB/GLOB Ratio 0.8 RATIO (0.9-2.4); AST(SGOT) 27 U/L (15-37); Alanine Aminotransfer ALT/SGPT 24 U/L (13-56); Albumin, Serum 2.6 g/dL (3.2-5.0); Alkaline Phosphatase 50 U/L (45-117); Anion Gap 7 (5-15); BUN 16 mg/dL (7-18); BUN/Creat Ratio 20.6 RATIO (10-20); Calcium,Total 8.2 mg/dL (8.5-10.1); Chloride 111 mmol/L (98-107); Creatinine, Serum 0.78 mg/dL (0.55-1.02); EST Glomerular Filtration Rate 78 mL/min (>60); Est Glom Filt Rate - Afr Amer 94 mL/min (>60); Estimated Creatinine Clearance 38.37 ml/min; Globulin 3.3 g/dL (2.2-4.2); Glucose 89 mg/dL (74-106); Potassium 3.4 mmol/L (3.5-5.1); Protein, Total 5.9 g/dL (6.4-8.2); Sodium Level 142 mmol/L (136-145)
[2021-12-07 05:56] LABS: Bedside Glucose 105 mg/dL (74-106)
--- NOTE | 2021-12-07 05:57 | CON.PCM.CC_ITS ---
Assessment & Plan Assessment/Plan (1) Acute hypoxemic respiratory failure: PLAN: Plan RECOMMENDATIONS: 1. Proceed with a trial of extubation this morning. 2. Once extubated, wean supplemental oxygen to maintain saturations at or above 90%. 3. Start Unasyn to cover for potential aspiration. 4. Continue PPI therapy. 5. Perform bedside swallow evaluation once extubated. 6. Resume home antihypertensive medications if the patient passes her swallow evaluation. 7. Avoid sedating medications. 8. Encourage incentive spirometer use and mobilize patient as tolerated. IMPRESSIONS: 1. Acute hypoxic respiratory failure The patient was initially intubated in the emergency department after presenting in an unresponsive state over concerns for airway protection and hypoxemia. Given her witnessed emesis events, I am going to add Unasyn to cover for potential aspiration. The patient has done well overnight with invasive mechanical ventilatory support. She is alert and appropriately interactive this morning. The patient has done well on a spontaneous breathing trial. Therefore, we will proceed with a trial of extubation. Once extubated, supplemental oxygen will be weaned for saturations greater than 90%. A bedside swallow evaluation can be completed and diet advanced accordingly. 2. Encephalopathy Clinical concern for Percocet overdose. The patient did have some initial response to the administration of Narcan. Her mentation has improved clinically without intervention overnight. Plan to proceed with extubation as noted above. 3. History of pulmonary embolism The patient has a known history of VTE with questionable outpatient compliance with her prescribed Eliquis. Repeat CT chest on arrival in the emergency department did demonstrate right-sided pulmonary embolism without evidence of right heart strain. Accordingly, the patient was placed on a heparin infusion, which I would recommend be continued for now. 4. Hypertension/hyperlipidemia/diabetes mellitus Complicates care, management, recovery and prognosis. Okay to resume home antihypertensive medications once swallow evaluation has been passed. Continue sliding scale insulin coverage. TIME: 33 minutes of critical care time, independent of procedures, was spent addressing the patient's acute hypoxemic respiratory failure, encephalopathy, history of pulmonary embolism, review of all data and collaboration with the care team. HPI Consult Data Date of Consult: 12/07/21 HPI Narrative Reason for Consultation: Acute respiratory failure HPI Narrative: The patient is a 71-year-old female, with a history as outlined below, who presented to the emergency department on December 06 in an unresponsive state. The patient has a medical history significant for VTE on Eliquis with questionable compliance, hypertension and hyperlipidemia. History pertinent to her hospitalization was obtained primarily via chart review, as the patient is currently intubated. The patient was recently evaluated in the emergency department and provided with a home-going prescription for Percocet. The patient was apparently found naked and unresponsive by her . There is so me concern for potential accidental overdose of Percocet. On presentation to the emergency department, the patient was noted to be afebrile but was significantly hypertensive. Initial laboratory evaluation revealed a white blood cell count of 16,000. Chemistry profile was largely unrevealing. Lactate was within normal limits. Urine analysis was positive for leukocyte esterase and 4+ urine bacteria. Toxicology screen was positive for opiates. CT head revealed no acute intracranial findings. CT chest abdomen and pelvis demonstrated right-sided PE without evidence of heart strain. The amilcar brown did receive Narcan in the emergency department and after becoming more responsive apparently had a witnessed emesis event with concern for aspiration. She was subsequently intubated. Given the findings noted on her CT chest, the patient was started on a heparin infusion, over concerns that she was noncompliant with her prescribed outpatient Eliquis. The patient was subsequently admitted to the medical intensive care unit for further management. No overnight issues were identified by the ICU staff. This morning, the patient is alert and appropriately interactive. She has passed her spontaneous breathing trial without issue. PENDING SALE TO [facility] Medical History Abscess of right elbow Acute pancreatitis Arthritis Back problem Chest pain Diabetes Elevated hemoglobin A1c Essential (primary) hypertension History of deep venous thrombosis (01/2020) Hormone deficiency Hyperlipidemia Mass of skin of right elbow Seasonal allergies Type 2 diabetes mellitus Home Medications metoprolol tartrate 50 mg tablet 50 mg PO DAILY BLOOD PRESSURE 03/06/19 [History Last Taken 02/17/21] insulin degludec 200 unit/mL (3 mL) subcutaneous pen (Tresiba FlexTouch U-200 insulin) 80 unit subcut BID diabetes 01/21/21 [History Last Taken 02/17/21] aspirin 81 mg tablet,delayed release (Sara Low Dose Aspirin) 81 mg PO DAILY heart health 02/17/21 [History Last Taken 02/17/21] lisinopril 10 mg tablet 10 mg PO DAILY BP 02/17/21 [History Last Taken 02/17/21] apixaban 5 mg tablet (Eliquis) 5 mg PO BID 03/08/21 [History Last Taken Unknown] diclofenac sodium 1 % topical gel (Voltaren Arthritis Pain) 2 g topical TID PRN PRN pain #100 grams 04/02/21 [Rx Last Taken Unknown] rosuvastatin 20 mg tablet (Crestor) 20 mg PO DAILY #90 tabs 09/08/21 [Rx Last Taken Unknown] oxycodone-acetaminophen 5 mg-325 mg tablet (Endocet) 1 tab PO Q6H PRN pain 3 days #12 tabs 12/01/21 [Rx Last Taken Unknown] prednisone 20 mg tablet 20 mg PO DAILY 5 days #5 tabs 12/01/21 [Rx Last Taken Unknown] oxycodone-acetaminophen 5 mg-325 mg tablet (Percocet) 1 tab PO Q6H PRN pain 3 days #10 tabs 12/05/21 [Rx Last Taken Unknown] Allergy/AdvReac Type Severity Reaction Status Date / Time diphenhydramine Allergy Swelling Verified 12/06/21 15:35 [From Gabi] Family History Unknown Breast cancer Colon cancer Myocardial infarction Hypertension Hyperlipidemia Father Heart disease Hypertension Mother Diabetes Hypertension Kidney disease Liver disease Other Arthritis Surgical History History of Social History (Updated 12/06/21 @ 19:42 by Domenico Johnson) household members: spouse housing: house history of recent travel: No Smoking Status: Never smoker alcohol intake: never substance use type: does not use what type of physical activity do you participate in: none ROS Review of Systems ROS Unobtainable: due to endotracheal tube Physical Exam Const alert and no apparent distress General Appearance: intubated and patient mechanically ventilated HEENT normocephalic and head/scalp atraumatic Mouth: endotracheal tube in place and OG tube in place Eyes PERRL, EOMs intact bilaterally and conjunctivae normal Neck supple General: trachea midline Chest inspection of chest normal Resp normal respiratory effort Auscultation: Negative for rales, rhonchi or wheezes Cardio S1 normal heart sound and S2 normal heart sound Rate: tachycardic GI normal to inspection, nondistended, normoactive bowel sounds Extremity no clubbing, cyanosis or edema Skin no rashes or lesions noted Neuro moves all extremities and no focal motor deficits Psych Psych Narrative: Alert and following commands appropriately. Lab / Micro Data Result Diagrams: 12/07/21 04:05 12/07/21 04:05 Labs: Laboratory Results - last 24 hr 12/06/21 15:10: WBC 15.9 H, RBC 5.24, Hgb 13.5, Hct 44.3, MCV 84.5, MCH 25.8 L, MCHC 30.5 L, RDW Std Deviation 53.6 H, RDW Coeff of Melvina 17.3 H, Plt Count 363, MPV 9.7, Immature Gran % (Auto) 0.400, Neut % (Auto) 31.9 L, Lymph % (Auto) 55.2 H, [place] % (Auto) 9.9, Eos % (Auto) 2.2, Baso % (Auto) 0.4, Absolute Neuts (auto) 5.1, Absolute Lymphs (auto) 8.77 H, Nucleated RBC % 0, Differential Comment SCANNED, Diff Path Review May foll, Reactive Lymphocytes 2+ 12/06/21 15:10: PT Cancelled, INR Cancelled, APTT Cancelled 12/06/21 15:10: Sodium 138, Potassium 3.8, Chloride 104, Carbon Dioxide 25.0, Anion Gap 9, BUN 20 H, Creatinine 0.87, Estim Creat Clear Calc 46.23, Est GFR (MDRD) Af Amer 82, Est GFR (MDRD) Non-Af 68, BUN/Creatinine Ratio 23.1 H, Glucose 181 H, Calcium 8.9, Total Bilirubin 0.70, AST 21, ALT 25, Alkaline Phosphatase 65, Troponin I High Sens 9, Total Protein 7.5, Albumin 3.3, Globulin 4.2, Albumin/Globulin Ratio 0.8 L, Lipase 124 12/06/21 15:47: POC Glucose 221 H 12/06/21 15:48: Lactic Acid 1.3 12/06/21 15:49: Ethyl Alcohol < 3.0 12/06/21 15:49: PT 14.1, INR 1.1, APTT 50.8 H 12/06/21 16:10: Urine Color Yellow, Urine Clarity Cloudy, Urine pH 5.0, Ur Specific [place] 1.020, Urine Protein 30 H, Urine Glucose (UA) 250 H, Urine Ketones Negative, Urine Occult Blood 25 H, Urine Nitrite Negative, Urine Bilirubin Negative, Urine Urobilinogen Normal, Ur Leukocyte Esterase 500 H, Urine RBC 0 SEEN, Urine WBC 0-5 SEEN, Ur Squamous Epith Cells 0-5 SEEN, Urine Bacteria 4+, Urine Mucus 0 SEEN 12/06/21 16:10: Urine Opiates Screen Cancelled, Urine Methadone Screen Cancelled, Ur Barbiturates Screen Cancelled, Ur Phencyclidine Scrn Cancelled, Ur Amphetamines Screen Cancelled, MDMA (Ecstasy) Screen Cancelled, U Benzodiazepi titi Scrn Cancelled, Urine Cocaine Screen Cancelled, U Cannabinoids Screen Cancelled, Ur Drug Screen Comment Cancelled 12/06/21 16:56: Urine Opiates Screen POSITIVE H, Urine Methadone Screen NEGATIVE, Ur Barbiturates Screen NEGATIVE, Ur Phencyclidine Scrn NEGATIVE, Ur Amphetamines Screen NEGATIVE, MDMA (Ecstasy) Screen NEGATIVE, U Benzodiazepines Scrn NEGATIVE, Urine Cocaine Screen NEGATIVE, U Cannabinoids Screen NEGATIVE, Ur Drug Screen Comment 12/06/21 18:38: POC Glucose 203 H 12/06/21 18:40: Total Creatine Kinase 117, Triglycerides 231 H 12/06/21 18:40: Troponin I High Sens 15 12/06/21 20:35: Troponin I High Sens 18 12/06/21 23:21: POC Glucose 118 H 12/07/21 00:00: Troponin I High Sens 23 12/07/21 00:00: APTT > 200.0 H* 12/07/21 04:05: WBC 14.3 H, RBC 4.57, Hgb 12.2, Hct 37.1, MCV 81.2, MCH 26.7 L, MCHC 32.9 D, RDW Std Deviation 51.2 H, RDW Coeff of Melvina 17.3 H, Plt Count 276, MPV 9.3, Immature Gran % (Auto) 0.300, Neut % (Auto) 61.0, Lymph % (Auto) 28.9, [place] % (Auto) 8.2, Eos % (Auto) 1.2, Baso % (Auto) 0.4, Absolute Neuts (auto) 8.7 H, Absolute Lymphs (auto) 4.12, Nucleated RBC % 0 12/07/21 04:05: Sodium 142, Potassium 3.4 L, Chloride 111 H, Carbon Dioxide 24.0, Anion Gap 7, BUN 16, Creatinine 0.78, Estim Creat Clear Calc 38.37, Est GFR (MDRD) Af Amer 94, Est GFR (MDRD) Non-Af 78, BUN/Creatinine Ratio 20.6 H, Glucose 89, Calcium 8.2 L, Total Bilirubin 0.50, AST 27, ALT 24, Alkaline Phosphatase 50, Total Protein 5.9 L, Albumin 2.6 L, Globulin 3.3, Albumin/Globulin Ratio 0.8 L 12/07/21 05:34: POC Glucose 105 ABG Data ABG results: ABG 12/06/21 12/06/21 12/06/21 15:55 19:41 23:33 Specimen Type ART ART ART Sample Site L Radial L Radial R Radial pH 7.32 L 7.52 H 7.54 H Bicarbonate Actual 23.6 20.0 L 20.8 L Total CO2 25 21 22 Base Excess -3 L -3 L -2 O2 Saturation 89 L 97 97 O2 % 21 21 21 ABG pCO2 46.2 H 24.8 L 24.6 L ABG pO2 62 L 77 81 Jorge Test N/A N/A Respiration Rate 14 14 O2 Delivery Device Adult Vent Adult Vent Vent Mode AC AC Tidal Volume 450 420 POC PEEP 5 [address] 12/06/21 15:28 IMPRESSION: There are no acute intracranial findings. Electronically Signed: Priyank Gallagher MD at 16:29 EDT , Cervical Spine CT 12/06/21 15:28 IMPRESSION: Degenerative changes of the cervical spine. There are no acute findings. Electronically Signed: Priyank Gallagher MD at 16:32 EDT , Head/Neck CTA 12/06/21 15:35 IMPRESSION: 1. There is mild atherosclerotic plaque formation of the origin of the right internal carotid artery with less than 50% cross sectional diameter stenosis. ALL ABOVE CRITERIA BY NASCET. 2. There is mild atherosclerotic plaque formation of the origin of the left internal carotid artery with less than 50% cross sectional diameter stenosis. ALL ABOVE CRITERIA BY NASCET. 3. There is calcified plaque formation of the right cavernous carotid artery, with a mild stenosis (less than 50%). ALL ABOVE CRITERIA BY NASCET. 4. There is calcified plaque formation of the left cavernous carotid artery, with a mild stenosis (less than 50%). ALL ABOVE CRITERIA BY NASCET. 5. There is extensive atherosclerotic plaque formation of the origin of the left external carotid artery with an estimated stenosis of greater than 70%. ALL ABOVE CRITERIA BY NASCET. Electronically Signed: Priyank Gallagher MD at 16:18 EDT , ADDENDUM: 12/06/21 1629 IMPRESSION: 1. There is mild atherosclerotic plaque formation of the origin of the right internal carotid artery with less than 50% cross sectional diameter stenosis. ALL ABOVE CRITERIA BY NASCET. 2. There is mild atherosclerotic plaque formation of the origin of the left internal carotid artery with less than 50% cross sectional diameter stenosis. ALL ABOVE CRITERIA BY NASCET. 3. There is calcified plaque formation of the right cavernous carotid artery, with a mild stenosis (less than 50%). ALL ABOVE CRITERIA BY NASCET. 4. There is calcified plaque formation of the left cavernous carotid artery, with a mild stenosis (less than 50%). ALL ABOVE CRITERIA BY NASCET. 5. There is extensive atherosclerotic plaque formation of the origin of the left external carotid artery with an estimated stenosis of greater than 70%. ALL ABOVE CRITERIA BY NASCET. N.B. : The above Results were Read Back by Priyank Gallagher MD to Dr. Melani MD, and understanding confirmed on 12/06/2021 16:22:58 (ET). Electronically Signed: Priyank Gallagher MD at 16:18 EDT , Chest/Abdomen/Pelvis CTA 12/06/21 15:48 IMPRESSION: 1. There is diffuse right pulmonary embolism but no heart strain. 2. There is decreased attenuation of the liver consistent with steatosis. 3. Focal wall thickening of the antrum of stomach. This can suggest a gastritis. Electronically Signed: Priyank Gallagher MD at 16:51 EDT , ADDENDUM: 12/06/21 1658 IMPRESSION: 1. There is diffuse right pulmonary embolism but no heart strain. 2. There is decreased attenuation of the liver consistent with steatosis. 3. Focal wall thickening of the antrum of stomach. This can suggest a gastritis. N.B. : The above Results were Read Back by Priyank Gallagher MD to Dr. Melani MD, and understanding confirmed on 12/06/2021 16:51:58 (ET). Electronically Signed: Priyank Gallagher MD at 16:51 EDT , Chest X-Ray 12/06/21 16:30 IMPRESSION: There is an endotracheal tube in place. The tip is 12 mm above the sarah. This is low and should be pulled back by 41 mm. Electronically Signed: Priyank Gallagher MD at 16:54 EDT , Chest X-Ray 12/06/21 16:38 IMPRESSION: There are no acute findings. Electronically Signed: Priyank Gallagher MD at 16:53 EDT , Charges/Coding Procedures Hospitalists Procedures: [id number] Critial Care 1st Hr
--- NOTE | 2021-12-07 06:20 | NURSING ---
0620: Shayne Tate RT extubates patient, patient tolerated well. 98% on Room Air. Will continue to monitor.
[2021-12-07 07:10] LABS: CPK Total, Creatine Kinase 173 U/L (26-192); Triglycerides 377 mg/dL
--- NOTE | 2021-12-07 07:22 | PCM.PN.HOSP ---
Subjective Subjective Follow-up for acute unresponsiveness episode due to opioid overdose. Patient was intubated for airway protection, extubated in the morning today. Patient is states she does not smoke cigarettes, weeds or snorting cocaine. Mild cough. Low-grade fever T-max 100 Fahrenheit. Objective Data Objective Data Vital Signs: Vital Signs Temp Pulse Resp BP Pulse Ox O2 Del Method FiO2 99.8 F H 106 H 14 178/55 H 99 Room Air 21 12/07/21 07:00 12/07/21 07:00 12/07/21 07:00 12/07/21 07:00 12/07/21 07:00 12/07/21 07:00 12/07/21 06:00 Oxygen Delivery Method Room Air Weight: 129 lb 6.581 oz Body Mass Index (BMI) 23.8 Intake & Output: Intake and Output for Last 24 Hours 12/05/21 12/06/21 12/07/21 23:59 23:59 23:59 Intake Total 559.81 / 562.06 1074.25 / 1074.25 Output Total 700 / 1000 625 / 625 Balance -140.19 / -437.94 449.25 / 449.25 Lab / Micro Data Result Diagrams: 12/07/21 04:05 12/07/21 04:05 Labs: Laboratory Results - last 24 hr 12/06/21 15:10: WBC 15.9 H, RBC 5.24, Hgb 13.5, Hct 44.3, MCV 84.5, MCH 25.8 L, MCHC 30.5 L, RDW Std Deviation 53.6 H, RDW Coeff of Melvina 17.3 H, Plt Count 363, MPV 9.7, Immature Gran % (Auto) 0.400, Neut % (Auto) 31.9 L, Lymph % (Auto) 55.2 H, [place] % (Auto) 9.9, Eos % (Auto) 2.2, Baso % (Auto) 0.4, Absolute Neuts (auto) 5.1, Absolute Lymphs (auto) 8.77 H, Nucleated RBC % 0, Differential Comment SCANNED, Diff Path Review May foll, Reactive Lymphocytes 2+ 12/06/21 15:10: PT Cancelled, INR Cancelled, APTT Cancelled 12/06/21 15:10: Sodium 138, Potassium 3.8, Chloride 104, Carbon Dioxide 25.0, Anion Gap 9, BUN 20 H, Creatinine 0.87, Estim Creat Clear Calc 46.23, Est GFR (MDRD) Af Amer 82, Est GFR (MDRD) Non-Af 68, BUN/Creatinine Ratio 23.1 H, Glucose 181 H, Calcium 8.9, Total Bilirubin 0.70, AST 21, ALT 25, Alkaline Phosphatase 65, Troponin I High Sens 9, Total Protein 7.5, Albumin 3.3, Globulin 4.2, Albumin/Globulin Ratio 0.8 L, Lipase 124 12/06/21 15:47: POC Glucose 221 H 12/06/21 15:48: Lactic Acid 1.3 12/06/21 15:49: Ethyl Alcohol < 3.0 12/06/21 15:49: PT 14.1, INR 1.1, APTT 50.8 H 12/06/21 16:10: Urine Color Yellow, Urine Clarity Cloudy, Urine pH 5.0, Ur Specific [place] 1.020, Urine Protein 30 H, Urine Glucose (UA) 250 H, Urine Ketones Negative, Urine Occult Blood 25 H, Urine Nitrite Negative, Urine Bilirubin Negative, Urine Urobilinogen Normal, Ur Leukocyte Esterase 500 H, Urine RBC 0 SEEN, Urine WBC 0-5 SEEN, Ur Squamous Epith Cells 0-5 SEEN, Urine Bacteria 4+, Urine Mucus 0 SEEN 12/06/21 16:56: Urine Opiates Screen POSITIVE H, Urine Methadone Screen NEGATIVE, Ur Barbiturates Screen NEGATIVE, Ur Phencyclidine Scrn NEGATIVE, Ur Amphetamines Screen NEGATIVE, MDMA (Ecstasy) Screen NEGATIVE, U Benzodiazepines Scrn NEGATIVE, Urine Cocaine Screen NEGATIVE, U Cannabinoids Screen NEGATIVE, Ur Drug Screen Comment 12/06/21 18:38: POC Glucose 203 H 12/06/21 18:40: Total Creatine Kinase 117, Triglycerides 231 H 12/06/21 18:40: Troponin I High Sens 15 12/06/21 20:35: Troponin I High Sens 18 12/06/21 23:21: POC Glucose 118 H 12/07/21 00:00: Troponin I High Sens 23 12/07/21 00:00: APTT > 200.0 H* 12/07/21 04:05: WBC 14.3 H, RBC 4.57, Hgb 12.2, Hct 37.1, MCV 81.2, MCH 26.7 L, MCHC 32.9 D, RDW Std Deviation 51.2 H, RDW Coeff of Melvina 17.3 H, Plt Count 276, MPV 9.3, Immature Gran % (Auto) 0.300, Neut % (Auto) 61.0, Lymph % (Auto) 28.9, [place] % (Auto) 8.2, Eos % (Auto) 1.2, Baso % (Auto) 0.4, Absolute Neuts (auto) 8.7 H, Absolute Lymphs (auto) 4.12, Nucleated RBC % 0 12/07/21 04:05: Sodium 142, Potassium 3.4 L, Chloride 111 H, Carbon Dioxide 24.0, Anion Gap 7, BUN 16, Creatinine 0.78, Estim Creat Clear Calc 38.37, Est GFR (MDRD) Af Amer 94, Est GFR (MDRD) Non-Af 78, BUN/ Creatinine Ratio 20.6 H, Glucose 89, Calcium 8.2 L, Total Bilirubin 0.50, AST 27, ALT 24, Alkaline Phosphatase 50, Total Protein 5.9 L, Albumin 2.6 L, Globulin 3.3, Albumin/Globulin Ratio 0.8 L 12/07/21 04:05: Total Creatine Kinase 173, Triglycerides 377 H 12/07/21 05:34: POC Glucose 105 ABG Data ABG results: ABG 12/06/21 12/06/21 12/06/21 15:55 19:41 23:33 Specimen Type ART ART ART Sample Site L Radial L Radial R Radial pH 7.32 L 7.52 H 7.54 H Bicarbonate Actual 23.6 20.0 L 20.8 L Total CO2 25 21 22 Base Excess -3 L -3 L -2 O2 Saturation 89 L 97 97 O2 % 21 21 21 ABG pCO2 46.2 H 24.8 L 24.6 L ABG pO2 62 L 77 81 Jorge Test N/A N/A Respiration Rate 14 14 O2 Delivery Device Adult Vent Adult Vent Vent Mode AC AC Tidal Volume 450 420 POC PEEP 5 5 Radiography Diagnostic Testing: Radiology Impression Brain CT 12/06/21 15:28 IMPRESSION: There are no acute intracranial findings. Cervical Spine CT 12/06/21 15:28 IMPRESSION: Degenerative changes of the cervical spine. There are no acute findings. Electronically Signed: Priyank Gallagher MD at 16:32 EDT , Head/Neck CTA 12/06/21 15:35 IMPRESSION: 1. There is mild atherosclerotic plaque formation of the origin of the right internal carotid artery with less than 50% cross sectional diameter stenosis. ALL ABOVE CRITERIA BY NASCET. 2. There is mild atherosclerotic plaque formation of the origin of the left internal carotid artery with less than 50% cross sectional diameter stenosis. ALL ABOVE CRITERIA BY NASCET. 3. There is calcified plaque formation of the right cavernous carotid artery, with a mild stenosis (less than 50%). ALL ABOVE CRITERIA BY NASCET. 4. There is calcified plaque formation of the left cavernous carotid artery, with a mild stenosis (less than 50%). ALL ABOVE CRITERIA BY NASCET. 5. There is extensive atherosclerotic plaque formation of the origin of the left external carotid artery with an estimated stenosis of greater than 70%. ALL ABOVE CRITERIA BY NASCET. Chest/Abdomen/Pelvis CTA 12/06/21 15:48 IMPRESSION: 1. There is diffuse right pulmonary embolism but no heart strain. 2. There is decreased attenuation of the liver consistent with steatosis. 3. Focal wall thickening of the antrum of stomach. This can suggest a gastritis. Chest X-Ray 12/06/21 16:30 IMPRESSION: There is an endotracheal tube in place. The tip is 12 mm above the sarah. This is low and should be pulled back by 41 mm. Electronically Signed: Priyank Gallagher MD at 16:54 EDT , Chest X-Ray 12/06/21 16:38 IMPRESSION: There are no acute findings. Electronically Signed: Priyank Gallagher MD at 16:53 EDT , Physical Exam Narrative General: Mild lethargic. Awake. Oriented x3. HEENT: Atraumatic, PERRLA, EOMI, Normocephalic Oral: No Gingival or Mucosal Lesions/ Ulcerations Neck: Supple, No JVD, Negative Carotid Bruits Lungs: Air entry diminished in bilateral lung bases. Bibasilar crepitations coarse. Cardiovascular: Sinus tachycardia, Normal S1, Normal S2, No murmurs Abdomen: Bowel Sounds Present, Soft, Non Tender, Non-Distended : No renal angle tenderness. No suprapubic tenderness. Extremities: No edema, Capillary Refill Less than 3 Seconds Skin: Patchy, focal petechial type rash right thigh and leg. Ecchymosis over bilateral forearm. Musculoskeletal: No Tenderness to Palpation of Joints or Extremities. Moderate muscle atrophy of extremities Neurological: Cranial nerves II-XII grossly intact, DTR 2+/4 and Symmetrical, Neuro grossly intact Psych/Mental Status: Blank look. Flat affect. Assessment & Plan Assessment/Plan (1) Respiratory failure: PLAN: Plan This is a 71-year-old female was admitted in ICU through ED for unresponsive episode. 1. Consistent with acute encephalopathy acute unresponsive state, likely secondary to narcotic/opioid overdose: Patient was given Narcan 2 mg nasal by EMS. After that she woke up confused and vomited. Patient was prescribed Percocet for knee pain. CT of the head and CTA of the head and neck were done and individually reviewed. Mild atherosclerotic plaque formation of origin of R ICA and left ICA. Extensive atherosclerotic plaque formation at origin of left ECA, estimated stenosis more than 70%. U tox positive for opioid. Stereo Equipment Salesperson consult reviewed and appreciated. Patient started on IV Unasyn for suspected aspiration. Avoid sedating medication. Incentive spirometry. 2. Acute hypoxic respiratory failure: EMS found pulse ox 95% on room air possible due to pulmonary embolism/possible aspiration. Patient was intubated in ED for concern of airway protection and hypoxia. Chest x-ray initially reviewed and no acute abnormality. CT of the chest and abdomen and pelvis shows diffuse right pulmonary embolism, no right wrist pain. 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 Currently on IV heparin drip. 3. Hypertensive urgency, in a known hypertensive, blood pressure is improved. Patient is awake. Diet resumed. On home antihypertensive medicine 4. Acute right-sided PE, patient with history of PE, on Eliquis Not sure if patient has been taking her Eliquis, started on heparin drip, will continue same 5. Hyperlipidemia, on statin 6. Type II DM, on Tresiba, will hold Tresiba, Will monitor blood glucose with insulin sliding scale 7. Gastritis, seen on CTA of the abdomen and pelvis, Continue on IV PPI twice daily 8. DVT PPx- Heparin drip Head/Neck CTA 12/06/21 15:35 IMPRESSION: 1. There is mild atherosclerotic plaque formation of the origin of the right internal carotid artery with less than 50% cross sectional diameter stenosis. ALL ABOVE CRITERIA BY NASCET. 2. There is mild atherosclerotic plaque formation of the origin of the left internal carotid artery with less than 50% cross sectional diameter stenosis. ALL ABOVE CRITERIA BY NASCET. 3. There is calcified plaque formation of the right cavernous carotid artery, with a mild stenosis (less than 50%). ALL ABOVE CRITERIA BY NASCET. 4. There is calcified plaque formation of the left cavernous carotid artery, with a mild stenosis (less than 50%). ALL ABOVE CRITERIA BY NASCET. 5. There is extensive atherosclerotic plaque formation of the origin of the left external carotid artery with an estimated stenosis of greater than 70%. ALL ABOVE CRITERIA BY NASCET. Charges/Coding Visit Charges Inpatient E&M: 26273 Subs Hosp L3
[2021-12-07] MEDS: hydrALAZINE 20 MG/ML Vial 5 MG IV (08:03)
[2021-12-07] MEDS: 0.9% Saline Lock 10 ML Syringe IV (08:03)
[2021-12-07 09:53] LABS: Partial Thromboplast Time 92.6 Seconds (24.1-36.2)
[2021-12-07] MEDS: Acetaminophen 325 MG Tablet 650 MG PO ×2 (10:06→21:45)
[2021-12-07] MEDS: Metoprolol Tartrate 50 MG Tablet PO ×2 (11:49→21:45)
[2021-12-07] MEDS: Lisinopril 10 MG Tablet PO (11:50)
[2021-12-07] MEDS: Insulin Lispro 100 UNIT/ML INSULN.PEN SC ×2 (11:50→16:11)
[2021-12-07] MEDS: Aspirin E.C. 81 MG Tablet PO (11:50)
[2021-12-07 12:00] LABS: Bedside Glucose 177 mg/dL (74-106)
[2021-12-07] MEDS: Ibuprofen 400 MG Tablet PO (13:50)
[2021-12-07] MEDS: Buprenorphine HCl 2 MG TAB.SUBL SL ×2 (14:30→21:45)
[2021-12-07] MEDS: Methocarbamol 750 MG Tablet 1500 MG PO (14:31)
[2021-12-07 16:31] LABS: Bedside Glucose 153 mg/dL (74-106)
[2021-12-07 18:16] LABS: Partial Thromboplast Time 53.8 Seconds (24.1-36.2)
[2021-12-07] MEDS: Heparin Injection (Vial) 5,000 UNIT/ML VIAL IV (18:22)
[2021-12-07] MEDS: Atorvastatin Calcium 40 MG Tablet PO (21:45)
[2021-12-07 22:20] LABS: Bedside Glucose 92 mg/dL (74-106)
[2021-12-08] VITALS (22 sets, daily range): BP systolic 105–148; BP diastolic 42–72; PULSE 12–77; RESP 10–22; TEMP 36.2–37.8; O2SAT 93–100
[2021-12-08] MEDS: Ibuprofen 400 MG Tablet PO (00:13)
[2021-12-08 00:40] LABS: Partial Thromboplast Time 68.4 Seconds (24.1-36.2)
[2021-12-08] MEDS: Lactated Ringers 1,000 ML 100 ML IV (02:33)
--- NOTE | 2021-12-08 06:50 | PCM.PN.INT ---
Assessment & Plan Assessment/Plan (1) Acute hypoxemic respiratory failure: PLAN: Plan RECOMMENDATIONS: 1. Wean supplemental oxygen to maintain saturations at or above 90%. 2. Repeat CBC this morning. 3. Continue empiric antimicrobials, pending finalized culture results. 4. Continue PPI therapy. 5. Encourage incentive spirometer use and mobilize patient as tolerated. 6. Okay to resume Eliquis and discontinue heparin infusion if blood counts are stable on repeat CBC. 7. The patient is medically stable for transfer out of the intensive care unit. IMPRESSIONS: 1. Acute hypoxic respiratory failure Resolved. The patient was initially intubated in the emergency department after presenting in an unresponsive state over concerns for airway protection and hypoxemia. The patient was also started on empiric antimicrobials to cover for potential aspiration. She improved clinically and was able to be extubated within 24 hours. Plan to continue supplemental oxygen to maintain saturations at or above 90%. Continue to avoid sedating medications. 2. Encephalopathy Resolved. Clinical concern for Percocet overdose. The patient did have some initial response to the administration of Narcan. Her mentation has improved clinically without intervention. 3. History of pulmonary embolism The patient has a known history of VTE with questionable outpatient compliance with her prescribed Eliquis. Repeat CT chest on arrival in the emergency department did demonstrate right-sided pulmonary embolism without evidence of right heart strain. Accordingly, the patient was placed on a heparin infusion. Given that the patient is now extubated, she can likely be restarted on her home Eliquis regimen, pending stability in her blood counts. 4. Hypertension/hyperlipidemia/diabetes mellitus Complicates care, management, recovery and prognosis. Continue sliding scale insulin coverage. This note was generated with [employer] dictation software. It may contain incorrect words, spelling, and punctuation that were not noted in checking the note before signing. Subjective Subjective The patient was seen and examined at the bedside this morning. Events from the last 24 hours have been reviewed. The patient is currently afebrile, hemodynamically stable and maintaining appropriate oxygen saturations on 1 L/min via nasal cannula. The patient is documented to be overall net +3.1 L for the hospitalization. No overnight issues were identified by the nursing staff. Repeat labs are still pending this morning, as the patient's hemoglobin dropped from 12.2 to 7.4 g/dL. Objective Data Objective Data The patient's most recent lab work, culture data and imaging studies have all been personally reviewed. Blood and sputum cultures are pending. Vital Signs: Vital Signs Temp Pulse Resp BP Pulse Ox O2 Del Method O2 Flow Rate 100 F H 67 11 L 127/50 H 97 Nasal Cannula 1 12/08/21 04:00 12/08/21 04:00 12/08/21 04:00 12/08/21 04:00 12/08/21 04:00 12/08/21 04:00 12/08/21 04:00 FiO2 21 12/07/21 06:00 Oxygen Flow Rate (L/min) 1 Oxygen Delivery Method Nasal Cannula Weight: 129 lb 6.581 oz Body Mass Index (BMI) 23.8 Intake & Output: Intake and Output for Last 24 Hours 12/06/21 12/07/21 12/08/21 23:59 23:59 23:59 Intake Total 559.81 / 562.06 3030.70 / 3230.70 1362 / 1362 Output Total 700 / 1000 1030 / 1105 75 / 75 Balance -140.19 / -437.94 2000.70 / 2125.70 1287 / 1287 Lab / Micro Data Attestation: I reviewed the patient's lab results. Result Diagrams: 12/08/21 08:15 12/08/21 06:45 Labs: Laboratory Results - last 24 hr 12/07/21 04:05: Total Creatine Kinase 173, Triglycerides 377 H 12/07/21 09:30: APTT 92.6 H* 12/07/21 11:38: POC Glucose 177 H 12/07/21 16:10: POC Glucose 153 H 12/07/21 17:50: APTT 53.8 H 12/07/21 21:47: POC Glucose 92 12/08/21 00:05: APTT 68.4 H Micro: Microbiology 12/06/21 16:32 Sputum, Induced/Lukens Gram Stain - Final 12/06/21 16:32 Sputum, Induced/Lukens Respiratory Culture - Preliminary Appears to be normal respiratory suzanna. Further studies to follow. Physical Exam Const alert and no apparent distress General Appearance: cooperative HEENT normocephalic, head/scalp atraumatic and moist oral mucous membranes Eyes PERRL, EOMs intact bilaterally and conjunctivae normal Neck supple General: trachea midline Chest inspection of chest normal Resp normal respiratory effort Auscultation: Negative for rales, rhonchi or wheezes Cardio regular rate, regular rhythm, S1 normal heart sound and S2 normal heart sound GI normal to inspection, nondistended, normoactive bowel sounds Extremity no clubbing, cyanosis or edema Skin no rashes or lesions noted Neuro CN's II-XII intact bilaterally, moves all extremities and no focal motor deficits Psych Mood & Affect: flat affect Charges/Coding Visit Charges Inpatient E&M: 64555 Subs Hosp L3
[2021-12-08] MEDS: Buprenorphine HCl 2 MG TAB.SUBL SL ×3 (06:52→22:08)
[2021-12-08 07:26] LABS: Absolute Lymphocyte Count 2.11 X10^3/uL (0.83-4.51); Absolute Neutrophil Count 6.3 X10^3/uL (2.0-7.7); Basophil# 0.03 X10^3/uL; Basophil% 0.3 % (0-1); Eosinophil# 0.12 X10^3/uL; Eosinophils% 1.3 % (0-5); Hematocrit 24.4 % (37-47); Hemoglobin 7.4 g/dL (12.0-15.0); Lymphocyte # 2.11 X10^3/ul (0.83-4.51); Lymphocyte % 22.1 % (19-41); Mean Corp Hgb Conc 30.3 g/dL (32-36); Mean Corpuscular Hgb 26.1 pg (27.0-32.0); Mean Corpuscular Volume 86.2 fL (81-99); Mean Platelet Vol. 9.8 fl (6.2-12.0); Monocyte# 0.97 X10^3/uL; Monocyte% 10.1 % (0-10); NRBC Flagged by Analyzer 0 % (0-5); Neutrophil # 6.28 X10^3/uL (2.7-7.7); Neutrophil % 65.7 % (47-70); Platelet Count 157 K/mm3 (150-450); RBC Distribution Width CV 18.1 % (11.6-14.6); RBC Distribution Width SD 57.7 fl (35.1-43.9); Red Blood Count 2.83 M/mm3 (4.2-5.4); White Blood Count 9.6 K/mm3 (4.4-11.0)
[2021-12-08 07:36] LABS: Anion Gap 10 (5-15); BUN 14 mg/dL (7-18); BUN/Creat Ratio 18.3 RATIO (10-20); Chloride 108 mmol/L (98-107); Creatinine, Serum 0.77 mg/dL (0.55-1.02); EST Glomerular Filtration Rate 79 mL/min (>60); Est Glom Filt Rate - Afr Amer 95 mL/min (>60); Estimated Creatinine Clearance 38.37 ml/min; Glucose 102 mg/dL (74-106); Potassium 3.8 mmol/L (3.5-5.1); Sodium Level 142 mmol/L (136-145)
[2021-12-08 07:44] LABS: Partial Thromboplast Time 102.7 Seconds (24.1-36.2)
[2021-12-08] MEDS: Ondansetron 8 MG Tablet PO ×2 (08:01→16:04)
[2021-12-08] MEDS: Acetaminophen 325 MG Tablet 650 MG PO (08:01)
[2021-12-08] MEDS: Aspirin E.C. 81 MG Tablet PO (08:02)
[2021-12-08 08:25] LABS: Absolute Neutrophil Count 8.8 X10^3/uL (2.0-7.7); Basophil# 0.05 X10^3/uL; Basophil% 0.4 % (0-1); Eosinophil# 0.19 X10^3/uL; Eosinophils% 1.4 % (0-5); Hematocrit 35.5 % (37-47); Hemoglobin 10.9 g/dL (12.0-15.0); Lymphocyte % 23.5 % (19-41); Mean Corp Hgb Conc 30.7 g/dL (32-36); Mean Corpuscular Hgb 25.9 pg (27.0-32.0); Mean Corpuscular Volume 84.3 fL (81-99); Mean Platelet Vol. 9.7 fl (6.2-12.0); Monocyte# 1.33 X10^3/uL; Monocyte% 9.8 % (0-10); NRBC Flagged by Analyzer 0 % (0-5); Neutrophil % 64.5 % (47-70); Platelet Count 259 K/mm3 (150-450); RBC Distribution Width CV 18.4 % (11.6-14.6); RBC Distribution Width SD 56.5 fl (35.1-43.9); Red Blood Count 4.21 M/mm3 (4.2-5.4); White Blood Count 13.6 K/mm3 (4.4-11.0)
[2021-12-08] MEDS: Metoprolol Tartrate 50 MG Tablet PO (09:52)
[2021-12-08] MEDS: APIXABAN 5 MG TABLET PO ×2 (09:53→22:08)
--- NOTE | 2021-12-08 11:15 | CASEMGMT ---
RN CM Face to Face with patient for initial transition planning/care coordination assessment. RN CM introduced self and role at [facility]. Patient sitting in chair, alert and oriented, at bedside. Patient willing to participate in assessment and is able to answer all questions appropriately. Care providers, pharmacy, and demographics verified. Patient wishes to discharge home, will monitor for HHC vs outpatient therapy. Patient states she has no further needs or concerns at this time. CM to follow for discharge planning needs that may arise. PCP: Aldo Specialists: none Preferred Pharmacy: [facility] Insurance: [employer] [facility] Prescription Benefit: yes Living Will/HPOA: none LNOK: Living Arrangements: Patient lives with in a single floor condo with 1 step. Patient states she was independent at home prior to current illness. Transportation: self, DME/HHC: Patient states she has walker at home. No previous HHC of SNF. Will monitor progress with therapy for possible HHC or outpatient therapy. Disposition Plan: Patient to discharge home with family support and follow-up plans in place. Possible HHC vs Outpt PT Annalisa JANG, RN, CM
[2021-12-08] MEDS: Lisinopril 10 MG Tablet PO (11:17)
[2021-12-08 11:41] LABS: Bedside Glucose 129 mg/dL (74-106)
--- NOTE | 2021-12-08 12:50 | PCM.PN.HOSP ---
Subjective Subjective Patient is awake alert. She said her pain has resolved. She does not feel pain. Blood pressure and heart rate in normal range. Patient is being transferred out of ICU to PCU. Objective Data Objective Data Vital Signs: Vital Signs Temp Pulse Resp BP Pulse Ox O2 Del Method O2 Flow Rate 99.5 F H 64 15 131/48 H 98 Nasal Cannula 1 12/08/21 12:00 12/08/21 12:00 12/08/21 12:00 12/08/21 12:00 12/08/21 12:00 12/08/21 12:00 12/08/21 12:00 FiO2 21 12/07/21 06:00 Oxygen Flow Rate (L/min) 1 Oxygen Delivery Method Nasal Cannula Weight: 133 lb 13.129 oz Body Mass Index (BMI) 23.8 Intake & Output: Intake and Output for Last 24 Hours 12/06/21 12/07/21 12/08/21 23:59 23:59 23:59 Intake Total 559.81 / 562.06 3030.70 / 3230.70 1772.54 / 1772.54 Output Total 700 / 1000 1030 / 1105 190 / 190 Balance -140.19 / -437.94 2000.70 / 2125.70 1582.54 / 1582.54 Lab / Micro Data Result Diagrams: 12/08/21 08:15 12/08/21 06:45 Labs: Laboratory Results - last 24 hr 12/07/21 16:10: POC Glucose 153 H 12/07/21 17:50: APTT 53.8 H 12/07/21 21:47: POC Glucose 92 12/08/21 00:05: APTT 68.4 H 12/08/21 05:45: APTT 102.7 H* 12/08/21 06:45: WBC 9.6, RBC 2.83 L, Hgb 7.4 L, Hct 24.4 L, MCV 86.2 D, MCH 26.1 L, MCHC 30.3 L D, RDW Std Deviation 57.7 H, RDW Coeff of Melvina 18.1 H, Plt Count 157, MPV 9.8, Immature Gran % (Auto) 0.500, Neut % (Auto) 65.7, Lymph % (Auto) 22.1, [place] % (Auto) 10.1 H, Eos % (Auto) 1.3, Baso % (Auto) 0.3, Absolute Neuts (auto) 6.3, Absolute Lymphs (auto) 2.11, Nucleated RBC % 0 12/08/21 06:45: Sodium 142, Potassium 3.8, Chloride 108 H, Carbon Dioxide 24.0, Anion Gap 10, BUN 14, Creatinine 0.77, Estim Creat Clear Calc 38.37, Est GFR (MDRD) Af Amer 95, Est GFR (MDRD) Non-Af 79, BUN/Creatinine Ratio 18.3, Glucose 102, Calcium 8.0 L 12/08/21 08:15: WBC 13.6 H, RBC 4.21, Hgb 10.9 L, Hct 35.5 L, MCV 84.3, MCH 25.9 L, MCHC 30.7 L, RDW Std Deviation 56.5 H, RDW Coeff of Melvina 18.4 H, Plt Count 259, MPV 9.7, Immature Gran % (Auto) 0.400, Neut % (Auto) 64.5, Lymph % (Auto) 23.5, [place] % (Auto) 9.8, Eos % (Auto) 1.4, Baso % (Auto) 0.4, Absolute Neuts (auto) 8.8 H, Absolute Lymphs (auto) 3.20, Nucleated RBC % 0 12/08/21 11:15: POC Glucose 129 H Micro: Microbiology 12/06/21 15:40 Blood Culture (Wb) - Right Foot Blood Culture - Preliminary No growth in 5 days. 12/06/21 15:50 Blood Culture (Wb) - Right Forearm Blood Culture - Preliminary No growth in 5 days. 12/06/21 16:32 Sputum, Induced/Lukens Gram Stain - Final 12/06/21 16:32 Sputum, Induced/Lukens Respiratory Culture - Preliminary Appears to be normal respiratory suzanna. Further studies to follow. Physical Exam Narrative General: Awake, alert, oriented x3. HEENT: Atraumatic, PERRLA, EOMI, Normocephalic Oral: No Gingival or Mucosal Lesions/ Ulcerations Neck: Supple, No JVD, Negative Carotid Bruits Lungs: Air entry diminished in bilateral lung bases. Bibasilar crepitations fine Cardiovascular: Sinus rhythm, Normal S1, Normal S2, No murmurs Abdomen: Bowel Sounds Present, Soft, Non Tender, Non-Distended : No renal angle tenderness. No suprapubic tenderness. Extremities: No edema, Capillary Refill Less than 3 Seconds Skin: Patchy, focal petechial type rash right thigh and leg. Ecchymosis over bilateral forearm. Musculoskeletal: No Tenderness to Palpation of Joints or Extremities. Moderate muscle atrophy of extremities Neurological: Cranial nerves II-XII grossly intact, DTR 2+/4 and Symmetrical, Neuro grossly intact Psych/Mental Status: Normal affect. Assessment & Plan Assessment/Plan (1) Respiratory failure: PLAN: Plan This is a 71-year-old female was admitted in ICU through ED for unresponsive episode. 1. Acute unresponsive episode consistent with acute encephalopathy, likely secondary to narcotic/opioid overdose: Patient was given Narcan 2 mg nasal by EMS. After that she woke up confused and vomited. Patient was prescribed Percocet for knee pain. CT of the head and CTA of the head and neck were done and individually reviewed. Mild atherosclerotic plaque formation of origin of R ICA and left ICA. Extensive atherosclerotic plaque formation at origin of left ECA, estimated stenosis more than 70%. U tox positive for opioid. Physician Executive consult reviewed and appreciated. Patient started on IV Unasyn for suspected aspiration. Avoid sedating medication. Incentive spirometry. 12/08: Acute encephalopathy resolved. Patient is doing well on buprenorphine based other adjunctive medications for opioid withdrawal. Being transferred to PCU. 2. Acute hypoxic respiratory failure: EMS found pulse ox 95% on room air possible due to pulmonary embolism/possible aspiration. Patient was intubated in ED for concern of airway protection and hypoxia. Chest x-ray initially reviewed and no acute abnormality. CT of the chest and abdomen and pelvis shows diffuse right pulmonary embolism but no heart strain. 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 Currently on IV heparin drip. 12/08: IV heparin drip changed to Eliquis. 2D echo is ordered patient also with hypertensive urgency and other comorbidities including diabetes mellitus. 3. Hypertensive urgency, in a known hypertensive, blood pressure is improved. Patient is awake. Diet resumed. On home antihypertensive medicine 4. Acute right-sided PE, patient with history of PE, on Eliquis 5. Hyperlipidemia, on statin 6. Type II DM, on Tresiba, will hold Tresiba, Will monitor blood glucose with insulin sliding scale 7. Gastritis, seen on CTA of the abdomen and pelvis, Continue on IV PPI twice daily 8. DVT PPx- Heparin drip Head/Neck CTA 12/06/21 15:35 IMPRESSION: 1. There is mild atherosclerotic plaque formation of the origin of the right internal carotid artery with less than 50% cross sectional diameter stenosis. ALL ABOVE CRITERIA BY NASCET. 2. There is mild atherosclerotic plaque formation of the origin of the left internal carotid artery with less than 50% cross sectional diameter stenosis. ALL ABOVE CRITERIA BY NASCET. 3. There is calcified plaque formation of the right cavernous carotid artery, with a mild stenosis (less than 50%). ALL ABOVE CRITERIA BY NASCET. 4. There is calcified plaque formation of the left cavernous carotid artery, with a mild stenosis (less than 50%). ALL ABOVE CRITERIA BY NASCET. 5. There is extensive atherosclerotic plaque formation of the origin of the left external carotid artery with an estimated stenosis of greater than 70%. ALL ABOVE CRITERIA BY NASCET. Charges/Coding Visit Charges Inpatient E&M: 96285 Subs Hosp L2
--- NOTE | 2021-12-08 12:58 | ECHOD_ITS ---
Reason For Study: BILATERAL PE Procedure This was a 2D Doppler, Color Flow transthoracic echocardiogram. Exam performed portable in patient room. Left Ventricle Normal LV size. Left ventricular systolic function is normal. The estimated ejection fraction is 65 %. Stage 1 diastolic dysfunction. No regional wall motion abnormalities noted. Right Ventricle Normal RV size. Normal systolic function. Atria Normal left atrium. Normal right atrium. Mitral Valve Normal mitral valve. Tricuspid Valve Normal tricuspid valve. Mild tricuspid valve insufficiency. Pulmonary artery systolic pressure is 38 mmHg. Aortic Valve Trisinus/trileaflet aortic valve. Mild focal aortic valve calcification. Pulmonic Valve Normal pulmonic valve. Great Vessels Normal aortic root. The pulmonary artery is normal size. Normal inferior vena cava. Pericardium/Pleural No pericardial effusion. MMode/2D Measurements & Calculations LVIDd: 4.3 cm IVSd: 1.1 cm Ao root diam: 2.9 cm LVIDs: 2.9 cm LVPWd: 1.2 cm RVDd: 2.8 cm FS: 32.3 % LAV(MOD-bp): 69.8 ml LA A4 area: 22.3 cm2 LA dimension(2D): 3.6 cm LAV(MOD-bp) Indexed: 43.4 ml/m2 LAV(MOD-sp2): 68.7 ml LAV(MOD-sp4): 68.5 ml Time Measurements MV dec time: 0.21 sec Doppler Measurements & Calculations MV E max ashish: 75.5 cm/sec Lat Peak E' Ashish: 7.2 cm/sec Med Peak E' Ashish: 6.3 cm/sec MV A max ashish: 77.5 cm/sec E/E' lat: 10.4 E/E' med: 12.0 MV E/A: 0.97 MV dec slope: 365.6 cm/sec2 Ao V2 max: 148.4 cm/sec LV V1 max: 108.6 cm/sec Ao max P.8 mmHg LV V1 max P.7 mmHg Ao V2 mean: 97.2 cm/sec LV V1 mean P.5 mmHg Ao mean P.3 mmHg LV V1 mean: 75.6 cm/sec Ao V2 VTI: 31.7 cm LV V1 VTI: 26.7 cm PA V2 max: 70.5 cm/sec TR max ashish: 307.8 cm/sec TR max P.3 mmHg ECHO/Echo Complete Interpretation Summary Normal LV size. Left ventricular systolic function is normal. The estimated ejection fraction is 65 %. Stage 1 diastolic dysfunction. Pulmonary artery systolic pressure is 38 mmHg. Ordering Physician: Kaleb Hawkins Referring Physician: Alfonso Carlson Chi Performed By: Rolanda Scott, NANETTE, RVT
[2021-12-08 13:45] LABS: Pathologist Review Reviewed
[2021-12-08 14:31] LABS: Bedside Glucose 97 mg/dL (74-106)
--- NOTE | 2021-12-08 15:24 | CHAPLAIN ---
Type of Pastoral Visit _x__ Initial Visit ___ Follow-up Visit ___ On-call Visit ___ General Patient Visit ___ Spiritual Assessment ___ Family Conference ___ Bereavement ___ Rapid Response ___ Code Blue ___ Other (describe below) Pastoral Care Referral From _x__ Patient ___ Family ___ Nurse ___ Physician ___ Old Coin Dealer ___ [employer] Senior Sergeant ___ Other (describe below) Sacrament/Intervention _x__ Active listening ___ Anointing ___ Hinduism ___ Bereavement ___ Communion _x__ Cele exploration ___ ___ Life review _x__ Prayer ___ Reconciliation ___ Sacrament of Sick _x__ Supportive presence ___ Wedding ___ Other (describe below) Pastoral Comments patient and spouse were met in the ICU before patient was moved to PCU; pt states that she is doing much better now although she does not remember anything that happened to her; pt and spouse both speak of cele in God and that He is the reason for the improvement; pt has some family relationship issues that are of a concern to her but otherwise does not have more concerns at this time; pt and spouse request prayer and express thanks for spiritual care services
[2021-12-08 16:30] LABS: Bedside Glucose 120 mg/dL (74-106)
[2021-12-08 21:56] LABS: Bedside Glucose 112 mg/dL (74-106)
[2021-12-08] MEDS: Atorvastatin Calcium 40 MG Tablet PO (22:07)
[2021-12-08] MEDS: 0.9% Saline Lock 10 ML Syringe IV (22:07)
[2021-12-08] MEDS: Amox/Clavulanate 875 MG Tablet PO (22:07)
[2021-12-08] MEDS: Pantoprazole Sodium 40 MG Tablet PO (22:07)
[2021-12-08 23:10] LABS: Bedside Glucose 139 mg/dL (74-106)
[2021-12-08 23:20] LABS: Bedside Glucose 119 mg/dL (74-106)
[2021-12-09] VITALS (14 sets, daily range): BP systolic 144–158; BP diastolic 49–85; PULSE 62–79; RESP 16; TEMP 36.5–36.9; O2SAT 93–100
[2021-12-09] MEDS: Acetaminophen 325 MG Tablet 650 MG PO (00:52)
[2021-12-09] MEDS: Ondansetron 8 MG Tablet PO (02:20)
[2021-12-09] MEDS: Methocarbamol 750 MG Tablet 1500 MG PO (02:21)
[2021-12-09 05:07] LABS: Absolute Lymphocyte Count 2.81 X10^3/uL (0.83-4.51); Absolute Neutrophil Count 5.5 X10^3/uL (2.0-7.7); Basophil# 0.07 X10^3/uL; Basophil% 0.7 % (0-1); Eosinophils% 3.1 % (0-5); Lymphocyte # 2.81 X10^3/ul (0.83-4.51); Mean Corp Hgb Conc 28.9 g/dL (32-36); Mean Corpuscular Hgb 26.2 pg (27.0-32.0); Mean Corpuscular Volume 90.5 fL (81-99); Mean Platelet Vol. 9.6 fl (6.2-12.0); Monocyte# 1.01 X10^3/uL; Monocyte% 10.4 % (0-10); NRBC Flagged by Analyzer 0 % (0-5); Neutrophil # 5.47 X10^3/uL (2.7-7.7); Neutrophil % 56.6 % (47-70); Platelet Count 230 K/mm3 (150-450); RBC Distribution Width CV 18.5 % (11.6-14.6); RBC Distribution Width SD 61.7 fl (35.1-43.9); White Blood Count 9.7 K/mm3 (4.4-11.0)
[2021-12-09 05:40] LABS: Anion Gap 6 (5-15); BUN 13 mg/dL (7-18); BUN/Creat Ratio 18.3 RATIO (10-20); Calcium,Total 7.8 mg/dL (8.5-10.1); Chloride 108 mmol/L (98-107); Creatinine, Serum 0.71 mg/dL (0.55-1.02); EST Glomerular Filtration Rate 86 mL/min (>60); Est Glom Filt Rate - Afr Amer 104 mL/min (>60); Estimated Creatinine Clearance 38.37 ml/min; Glucose 139 mg/dL (74-106); Potassium 3.9 mmol/L (3.5-5.1); Sodium Level 135 mmol/L (136-145)
[2021-12-09] MEDS: Buprenorphine HCl 2 MG TAB.SUBL SL (06:26)
[2021-12-09 06:55] LABS: Bedside Glucose 125 mg/dL (74-106)
[2021-12-09] MEDS: Metoprolol Tartrate 50 MG Tablet PO (07:53)
[2021-12-09] MEDS: APIXABAN 5 MG TABLET PO (07:54)
[2021-12-09] MEDS: Amox/Clavulanate 875 MG Tablet PO (07:54)
[2021-12-09] MEDS: Lisinopril 10 MG Tablet PO (07:54)
[2021-12-09] MEDS: Pantoprazole Sodium 40 MG Tablet PO (07:54)
[2021-12-09] MEDS: Aspirin E.C. 81 MG Tablet PO (07:55)
--- NOTE | 2021-12-09 09:14 | DCINST_ITS ---
Discharge Instructions Diet Discharge Diet: 1800 Calorie Control Diet Activity Discharge Activity: Return to Normal Activity and May Not Drive (FOR 1-2 WEEK until sees PCP) Weight Bearing Status: Weight bearing as tolerated Dressing / Incision Call your doctor if you observe: Fever of 101 or Higher, Coldness, Increased Pain, Numbness or Tingling, Change in Color, Inability to urinate, Inability to have a bowel movement, Using more than 1 pad per hour, Shortness of breath, Dizziness, Fainting spells, Swelling in the ankles, Chest pain, Prolonged hiccupping, Increased palpitations (irregular heartbeat), Calf discomfort and Uncontrolled pain Follow Up Care Test Results: Test results from this visit will be discussed in further detail at your follow- up appointment, if applicable. Discharge Plan Admission Admit Date/Time: 12/06/21 16:44 Primary Reason for Your Visit: Acute encephalopathy probably due to opioid overdose Attending Provider: Kaleb Hawkins Primary Care Provider: Alfonso Carlson Chi Consulting Providers: Glenda Castro ; Esa Boogie ; Darrick Raymundo ; Channing Hoyos ; Nancy Painting MEASUREMENT SUPERINTENDENT Discharge Orders/Prescriptions Prescriptions: New pantoprazole 40 mg Tablet,Delayed Release (Dr/Ec) 40 mg PO BID Qty: 60 0RF Rx Instructions: 40 mg twice daily for 1 week and then once daily nicotine 21 mg/24 hr Patch 24 Hour 21 mg transdermal DAILY Qty: 30 0RF acetaminophen [Tylenol] 325 mg Tablet 650 mg PO Q4H PRN PRN (Reason: Pain 1-10 Or Fever) Qty: 0 0RF Rx Instructions: For mild to moderate pain ibuprofen 400 mg Tablet 400 mg PO Q8H PRN PRN (Reason: PAIN 1-10) Qty: 0 0RF Rx Instructions: As needed for severe pain 7-10/10 amoxicillin-pot clavulanate 875-125 mg Tablet 875 mg PO BID Qty: 9 0RF Rx Instructions: First dose evening today, 12/09/2021 apixaban 5 mg Tablet 5 mg PO BID Qty: 60 0RF insulin lispro [Humalog KwikPen Insulin] 100 unit/mL Insulin Pen See Protocol subcut ACHS Qty: 15 0RF Protocol: 3. Sliding Scale Insulin Med Dosing Condition: 150-189 mg/dl = 1 unit Condition: 190-229 mg/dl = 2 units Condition: 230-269 mg/dl = 3 units Condition: 270-309 mg/dl = 4 units Condition: 310-349 mg/dl = 5 units Condition: 350-399 mg/dl = 6 units Condition: 400-449 mg/dl = 7 units Condition: Greater than 449 call physician Protocol Text: - Use for Total Daily Dose of Insulin 37-55 units - Obsese, infected, or steroid patients MEDIUM DOSING ALGORITHIM Continued rosuvastatin [Crestor] 20 mg tablet 20 mg PO DAILY Qty: 90 3RF metoprolol tartrate 50 MG tablet 50 mg PO DAILY lisinopril 10 mg tablet 10 mg PO DAILY diclofenac sodium [Voltaren Arthritis Pain] 1 % gel 2 g topical TID PRN PRN (Reason: pain) Qty: 100 2RF prednisone 20 mg tablet 20 mg PO DAILY 5 Days Qty: 5 0RF oxycodone-acetaminophen [Percocet] 5-325 mg tablet 1 tab PO Q6H PRN (Reason: pain) 3 Days Qty: 10 0RF Held Tresiba FlexTouch U-200 200 unit/mL (3 mL) insulin pen 80 unit SUBCUT BID Hold Instructions: [place] [address]. Hold if glucose less than 130 mg/dl Discontinued aspirin [Sara Low Dose Aspirin] 81 mg Tablet,Delayed Release (Dr/Ec) 81 mg PO DAILY Eliquis 5 mg tablet 5 mg PO BID Rx Instructions: Take 2 tablets twice daily for 6 days then take 1 tablet twice daily oxycodone-acetaminophen [Endocet] 5-325 mg tablet 1 tab PO Q6H PRN (Reason: pain) 3 Days Qty: 12 0RF Referrals / Follow Up: Alfonso Carlson Chi, MD [Primary Care Provider] -
[2021-12-09 11:35] LABS: Bedside Glucose 145 mg/dL (74-106)
--- NOTE | 2021-12-09 11:38 | CASEMGMT ---
Per therapy today, pt ok to go home with HHC or OP therapy. Pt aware and is agreeable to OP therapy at [facility]. Therapy is also recommending a walker and pt states already has a rollator at home and therapy states that is fine. Script for OP therapy faxed to [facility] and pt given script for home. Pt/ voice no further questions/concerns/needs. SStmandy ADEN CM
--- NOTE | 2021-12-09 12:33 | DS.PCM_ITS ---
Providers Date of Admission: 12/06/21 Date of Discharge: 12/09/21 Primary Care Physician: Dr. Alfonso Carlson MD Consultations 12/06/21 18:25 Consult: [facility]oper / Pulmonary Medicine Routine Consulting Provider: Pulmonary Medicine bette Baker Reason for Consult: Unresponsiveness EMERGENT Consult: No Notified: Yes Date Notified: 12/06/21 Time Notified: 16:46 Method of Notification: Text Reason For Visit: ACUTE EPISODE OF UNRESPONSIVENESS Diagnosis Discharge Diagnosis (1) Respiratory failure: Status: Acute Code(s): J96.90 - Respiratory failure, unspecified, unspecified whether with hypoxia or hypercapnia Plan This is a 71-year-old female was admitted in ICU through ED for unresponsive episode. 1. Acute unresponsive episode consistent with acute encephalopathy, likely secondary to narcotic/opioid overdose: Patient was given Narcan 2 mg nasal by EMS. After that she woke up confused and vomited. Patient was prescribed Percocet for knee pain. CT of the head and CTA of the head and neck were done and individually reviewed. Mild atherosclerotic plaque formation of origin of R ICA and left ICA. Extensive atherosclerotic plaque formation at origin of left ECA, estimated stenosis more than 70%. U tox positive for opioid. [facility] Hooper consult reviewed and appreciated. Patient started on IV Unasyn for suspected aspiration. Avoid sedating medication. Incentive spirometry. 12/08: Acute encephalopathy resolved. Patient is doing well on buprenorphine based other adjunctive medications for opioid withdrawal. Being transferred to PCU. Yesterday one-time hemoglobin 7.4, lab error. Repeat hemoglobin 10.9. 12/09: Patient was educated not to take any opioid medication. On her discharge meds list, oxycodone discontinued. Advised to take Tylenol for mild to moderate pain and Motrin 400 mg every 8 hourly for severe pain along with Protonix. Hemoglobin is 11.0. 2. Acute hypoxic respiratory failure: EMS found pulse ox 95% on room air possible due to pulmonary embolism/possible aspiration. Patient was intubated in ED for concern of airway protection and hypoxia. Chest x-ray initially reviewed and no acute abnormality. CT of the chest and abdomen and pelvis shows diffuse right pulmonary embolism but no heart strain. 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 Currently on IV heparin drip. 12/08: IV heparin drip changed to Eliquis. 2D echo is ordered patient also with hypertensive urgency and other comorbidities including diabetes mellitus. 12/09: Patient advised to follow-up in pulmonary clinic for PE and advised Tl to Eliquis. 3. Hypertensive urgency, in a known hypertensive, blood pressure is improved. Patient is awake. Diet resumed. On home antihypertensive medicine 4. Acute right-sided PE, patient with history of PE, on Eliquis 5. Hyperlipidemia, on statin 6. Type II DM, on Tresiba, will hold Tresiba, Will monitor blood glucose with insulin sliding scale 12/09: Patient is running glucose 90s to 100s therefore hold Lantus. Mildly sliding scale insulin. Prescription for Humalog sliding scale insulin given. 7. Gastritis, seen on CTA of the abdomen and pelvis, Continue on IV PPI twice daily Prescription for pantoprazole given. Next 8. DVT PPx-on apixaban Discharge medication reconciliation done. Discharge follow-up instructions completed. Discharge process discussed with the patient and her at the bedside and all questions were answered to their satisfaction. Total time spent, exact 35 minutes on discharge meds reconciliation, examination, coordination of care with nurses and ancillary staff, review of imaging and blood test and discussion with the patient on follow-up instructions. Head/Neck CTA 12/06/21 15:35 IMPRESSION: 1. There is mild atherosclerotic plaque formation of the origin of the right internal carotid artery with less than 50% cross sectional diameter stenosis. ALL ABOVE CRITERIA BY NASCET. 2. There is mild atherosclerotic plaque formation of the origin of the left internal carotid artery with less than 50% cross sectional diameter stenosis. ALL ABOVE CRITERIA BY NASCET. 3. There is calcified plaque formation of the right cavernous carotid artery, with a mild stenosis (less than 50%). ALL ABOVE CRITERIA BY NASCET. 4. There is calcified plaque formation of the left cavernous carotid artery, with a mild stenosis (less than 50%). ALL ABOVE CRITERIA BY NASCET. 5. There is extensive atherosclerotic plaque formation of the origin of the left external carotid artery with an estimated stenosis of greater than 70%. ALL ABOVE CRITERIA BY NASCET. Medications at Discharge Home Medications metoprolol tartrate 50 mg tablet 50 mg PO DAILY BLOOD PRESSURE 03/06/19 insulin degludec 200 unit/mL (3 mL) subcutaneous pen (Tresiba FlexTouch U-200 insulin) 80 unit subcut BID diabetes 01/21/21 lisinopril 10 mg tablet 10 mg PO DAILY BP 02/17/21 diclofenac sodium 1 % topical gel (Voltaren Arthritis Pain) 2 g topical TID PRN PRN pain #100 grams 04/02/21 rosuvastatin 20 mg tablet (Crestor) 20 mg PO DAILY #90 tabs 09/08/21 prednisone 20 mg tablet 20 mg PO DAILY 5 days #5 tabs 12/01/21 oxycodone-acetaminophen 5 mg-325 mg tablet (Percocet) 1 tab PO Q6H PRN pain 3 days #10 tabs 12/05/21 acetaminophen 325 mg tablet (Tylenol) 650 mg PO Q4H PRN PRN Pain 1-10 Or Fever #0 tabs 12/09/21 amoxicillin 875 mg-potassium clavulanate 125 mg tablet 875 mg PO BID #9 tabs 12/09/21 apixaban 5 mg tablet 5 mg PO BID #60 tabs 12/09/21 ibuprofen 400 mg tablet 400 mg PO Q8H PRN PRN PAIN 1-10 #0 tabs 12/09/21 insulin lispro 100 unit/mL subcutaneous pen (Humalog KwikPen (U-100) Insulin) See Protocol subcut ACHS #15 mL 12/09/21 nicotine 21 mg/24 hr daily transdermal patch 21 mg transdermal DAILY #30 ea 12/09/21 pantoprazole 40 mg tablet,delayed release 40 mg PO BID #60 tabs 12/09/21 Physical Exam Narrative General: Awake, alert, oriented x3. HEENT: Atraumatic, PERRLA, EOMI, Normocephalic Oral: No Gingival or Mucosal Lesions/ Ulcerations Neck: Supple, No JVD, Negative Carotid Bruits Lungs: Air entry diminished in bilateral lung bases. Bibasilar crepitations fine Cardiovascular: Sinus rhythm, Normal S1, Normal S2, No murmurs Abdomen: Bowel Sounds Present, Soft, Non Tender, Non-Distended : No renal angle tenderness. No suprapubic tenderness. Extremities: No edema, Capillary Refill Less than 3 Seconds Skin: Patchy, focal petechial type rash right thigh and leg. Ecchymosis over bilateral forearm. Musculoskeletal: No Tenderness to Palpation of Joints or Extremities. Moderate muscle atrophy of extremities Neurological: Cranial nerves II-XII grossly intact, DTR 2+/4 and Symmetrical, Neuro grossly intact Psych/Mental Status: Normal affect. Weight / BMI Weight Weight: 136 lb 7.458 oz Body Mass Index (BMI) 23.8 ABG / Lab / Microbiology Data Result Diagrams: 12/09/21 04:50 12/09/21 04:50 Laboratory: Laboratory Results - last 24 hr 12/06/21 15:10: Diff Path Review Reviewed 12/08/21 06:48: POC Glucose 112 H 12/08/21 14:07: POC Glucose 97 12/08/21 15:59: POC Glucose 120 H 12/08/21 22:02: POC Glucose 119 H 12/08/21 22:40: POC Glucose 139 H 12/09/21 04:50: WBC 9.7, RBC 4.20, Hgb 11.0 L, Hct 38.0, MCV 90.5 D, MCH 26.2 L , MCHC 28.9 L D, RDW Std Deviation 61.7 H, RDW Coeff of Melvina 18.5 H, Plt Count 230, MPV 9.6, Immature Gran % (Auto) 0.200, Neut % (Auto) 56.6, Lymph % (Auto) 29.0, [place] % (Auto) 10.4 H, Eos % (Auto) 3.1, Baso % (Auto) 0.7, Absolute Neuts (auto) 5.5, Absolute Lymphs (auto) 2.81, Nucleated RBC % 0 12/09/21 04:50: Sodium 135 L, Potassium 3.9, Chloride 108 H, Carbon Dioxide 2 1.0, Anion Gap 6, BUN 13, Creatinine 0.71, Estim Creat Clear Calc 38.37, Est GFR (MDRD) Af Amer 104, Est GFR (MDRD) Non-Af 86, BUN/Creatinine Ratio 18.3, Glucose 139 H, Calcium 7.8 L 12/09/21 06:24: POC Glucose 125 H 12/09/21 11:04: POC Glucose 145 H Microbiology: Microbiology 12/06/21 16:32 Sputum, Induced/Lukens Gram Stain - Final 12/06/21 16:32 Sputum, Induced/Lukens Respiratory Culture - Final 12/06/21 15:40 Blood Culture (Wb) - Right Foot Blood Culture - Preliminary No growth in 5 days. 12/06/21 15:50 Blood Culture (Wb) - Right Forearm Blood Culture - Preliminary No growth in 5 days. Radiography Diagnostic Testing: Radiology Impression Echocardiogram 12/08/21 12:58 Interpretation Summary Normal LV size. Left ventricular systolic function is normal. The estimated ejection fraction is 65 %. Stage 1 diastolic dysfunction. Pulmonary artery systolic pressure is 38 mmHg. Ordering Physician: Kaleb Hawkins Referring Physician: Alfonso Carlson Chi Performed By: Rolanda Scott RDCS, RVT D/C Instructions Discharge Diet: 1800 Calorie Control Diet Weight Bearing Status: Weight bearing as tolerated Call your doctor if you observe: Fever of 101 or Higher, Coldness, Increased Pain, Numbness or Tingling, Change in Color, Inability to urinate, Inability to have a bowel movement, Using more than 1 pad per hour, Shortness of breath, Dizziness, Fainting spells, Swelling in the ankles, Chest pain, Prolonged hiccupping, Increased palpitations (irregular heartbeat), Calf discomfort and Uncontrolled pain Meaningful Use Info Meaningful Use Diagnoses (Choose all that apply): None applicable Discharge Plan Admission Admit Date/Time: 12/06/21 16:44 Primary Reason for Your Visit: Acute encephalopathy probably due to opioid overdose Attending Provider: Kaleb Hawkins Primary Care Provider: Alfonso Carlson Chi Consulting Providers: Glenda Castro ; Esa Boogie ; Darrick Raymundo ; Channing Hoyos ; Nancy Painting STONE SETTER APPRENTICE Discharge Orders/Prescriptions Prescriptions: New pantoprazole 40 mg Tablet,Delayed Release (Dr/Ec) 40 mg PO BID Qty: 60 0RF Rx Instructions: 40 mg twice daily for 1 week and then once daily nicotine 21 mg/24 hr Patch 24 Hour 21 mg transdermal DAILY Qty: 30 0RF acetaminophen [Tylenol] 325 mg Tablet 650 mg PO Q4H PRN PRN (Reason: Pain 1-10 Or Fever) Qty: 0 0RF Rx Instructions: For mild to moderate pain ibuprofen 400 mg Tablet 400 mg PO Q8H PRN PRN (Reason: PAIN 1-10) Qty: 0 0RF Rx Instructions: As needed for severe pain -01/11 amoxicillin-pot clavulanate 875-125 mg Tablet 875 mg PO BID Qty: 9 0RF Rx Instructions: First dose evening today, 12/09/2021 apixaban 5 mg Tablet 5 mg PO BID Qty: 60 0RF insulin lispro [Humalog KwikPen Insulin] 100 unit/mL Insulin Pen See Protocol subcut ACHS Qty: 15 0RF Protocol: 3. Sliding Scale Insulin Med Dosing Condition: 150-189 mg/dl = 1 unit Condition: 190-229 mg/dl = 2 units Condition: 230-269 mg/dl = 3 units Condition: 270-309 mg/dl = 4 units Condition: 310-349 mg/dl = 5 units Condition: 350-399 mg/dl = 6 units Condition: 400-449 mg/dl = 7 units Condition: Greater than 449 call physician Protocol Text: - Use for Total Daily Dose of Insulin 37-55 units - Obsese, infected, or steroid patients MEDIUM DOSING ALGORITHIM Continued rosuvastatin [Crestor] 20 mg tablet 20 mg PO DAILY Qty: 90 3RF metoprolol tartrate 50 MG tablet 50 mg PO DAILY lisinopril 10 mg tablet 10 mg PO DAILY diclofenac sodium [Voltaren Arthritis Pain] 1 % gel 2 g topical TID PRN PRN (Reason: pain) Qty: 100 2RF prednisone 20 mg tablet 20 mg PO DAILY 5 Days Qty: 5 0RF oxycodone-acetaminophen [Percocet] 5-325 mg tablet 1 tab PO Q6H PRN (Reason: pain) 3 Days Qty: 10 0RF Held Tresiba FlexTouch U-200 200 unit/mL (3 mL) insulin pen 80 unit SUBCUT BID Hold Instructions: [place] [address]. Hold if glucose less than 130 mg/dl Discontinued aspirin [Sara Low Dose Aspirin] 81 mg Tablet,Delayed Release (Dr/Ec) 81 mg PO DAILY Eliquis 5 mg tablet 5 mg PO BID Rx Instructions: Take 2 tablets twice daily for 6 days then take 1 tablet twice daily oxycodone-acetaminophen [Endocet] 5-325 mg tablet 1 tab PO Q6H PRN (Reason: pain) 3 Days Qty: 12 0RF Referrals / Follow Up: Alfonso Carlson Chi, MD [Primary Care Provider] - Nancy Painting NP, STONE SETTER APPRENTICE-C [Med Staff - Adv Practice Prof] - Within 2 Weeks (for pulmonary embolism) Charges/Coding Visit Charges Inpatient E&M: 14238 Disch Hosp
--- NOTE | 2021-12-09 12:34 | PN.CC_ITS ---
Assessment & Plan Assessment/Plan (1) Acute hypoxemic respiratory failure: PLAN: Plan RECOMMENDATIONS: 1. Okay to discontinue antimicrobials from my perspective. 2. Continue PPI therapy. 3. Encourage incentive spirometer use and mobilize patient as tolerated. 4. Continue Eliquis. 5. Will sign off. Please call with any additional questions. IMPRESSIONS: 1. Acute hypoxic respiratory failure Resolved. The patient was initially intubated in the emergency department after presenting in an unresponsive state over concerns for airway protection and hypoxemia. The patient was also started on empiric antimicrobials to cover for potential aspiration. She improved clinically and was able to be extubated within 24 hours. Plan to continue supplemental oxygen to maintain saturations at or above 90%. Continue to avoid sedating medications. Given negative cultures to date, antibiotics can be discontinued from my perspective. 2. Encephalopathy Resolved. Clinical concern for Percocet overdose. The patient did have some initial response to the administration of Narcan. Her mentation has improved clinically without intervention. 3. History of pulmonary embolism The patient has a known history of VTE with questionable outpatient compliance with her prescribed Eliquis. Repeat CT chest on arrival in the emergency department did demonstrate right-sided pulmonary embolism without evidence of right heart strain. Accordingly, the patient was placed on a heparin infusion and then later transitioned back to her home Eliquis. 4. Hypertension/hyperlipidemia/diabetes mellitus Complicates care, management, recovery and prognosis. Continue sliding scale insulin coverage. This note was generated with [employer] dictation software. It may contain incorrect words, spelling, and punctuation that were not noted in checking the note before signing. Subjective Subjective The patient was seen and examined at the bedside this morning. Events from the last 24 hours have been reviewed. The patient is currently afebrile, hemodynamically stable and maintaining appropriate oxygen saturations on room air. Patient remained medically stable without any overnight issues. Objective Data Objective Data The patient's most recent lab work, culture data and imaging studies have all been personally reviewed. Blood and sputum cultures are pending. Vital Signs: Vital Signs Temp Pulse Resp BP Pulse Ox O2 Del Method O2 Flow Rate 98.4 F 63 16 158/51 H 94 Room Air 1 12/09/21 07:46 12/09/21 11:00 12/09/21 08:26 12/09/21 07:53 12/09/21 08:26 12/09/21 08:26 12/09/21 05:15 FiO2 21 12/07/21 06:00 Oxygen Flow Rate (L/min) 1 Oxygen Delivery Method Room Air Weight: 136 lb 7.458 oz Body Mass Index (BMI) 23.8 Intake & Output: Intake and Output for Last 24 Hours 12/07/21 12/08/21 12/09/21 23:59 23:59 23:59 Intake Total 3030.70 / 3230.70 2884.54 / 2884.54 Output Total 1030 / 1105 490 / 490 Balance 2000.70 / 2125.70 2394.54 / 2394.54 Lab / Micro Data Attestation: I reviewed the patient's lab results. Result Diagrams: 12/09/21 04:50 12/09/21 04:50 Labs: Laboratory Results - last 24 hr 12/06/21 15:10: Diff Path Review Reviewed 12/08/21 06:48: POC Glucose 112 H 12/08/21 14:07: POC Glucose 97 12/08/21 15:59: POC Glucose 120 H 12/08/21 22:02: POC Glucose 119 H 12/08/21 22:40: POC Glucose 139 H 12/09/21 04:50: WBC 9.7, RBC 4.20, Hgb 11.0 L, Hct 38.0, MCV 90.5 D, MCH 26.2 L , MCHC 28.9 L D, RDW Std Deviation 61.7 H, RDW Coeff of Melvina 18.5 H, Plt Count 230, MPV 9.6, Immature Gran % (Auto) 0.200, Neut % (Auto) 56.6, Lymph % (Auto) 29.0, [place] % (Auto) 10.4 H, Eos % (Auto) 3.1, Baso % (Auto) 0.7, Absolute Neuts (auto) 5.5, Absolute Lymphs (auto) 2.81, Nucleated RBC % 0 12/09/21 04:50: Sodium 135 L, Potassium 3.9, Chloride 108 H, Carbon Dioxide 21.0, Anion Gap 6, BUN 13, Creatinine 0.71, Estim Creat Clear Calc 38.37, Est GFR (MDRD) Af Amer 104, Est GFR (MDRD) Non-Af 86, BUN/Creatinine Ratio 18.3, Glucose 139 H, Calcium 7.8 L 12/09/21 06:24: POC Glucose 125 H 12/09/21 11:04: POC Glucose 145 H Micro: Microbiology 12/06/21 16:32 Sputum, Induced/Lukens Gram Stain - Final 12/06/21 16:32 Sputum, Induced/Lukens Respiratory Culture - Final 12/06/21 15:40 Blood Culture (Wb) - Right Foot Blood Culture - Preliminary No growth in 5 days. 12/06/21 15:50 Blood Culture (Wb) - Right Forearm Blood Culture - Preliminary No growth in 5 days. Radiography Diagnostic Testing: Radiology Impression Echocardiogram 12/08/21 12:58 Interpretation Summary Normal LV size. Left ventricular systolic function is normal. The estimated ejection fraction is 65 %. Stage 1 diastolic dysfunction. Pulmonary artery systolic pressure is 38 mmHg. Ordering Physician: Kaleb Hawkins Referring Physician: Alfonso Carlson Chi Performed By: Rolanda Scott, NANETTE, RVT Physical Exam Const alert and no apparent distress General Appearance: cooperative HEENT normocephalic, head/scalp atraumatic and moist oral mucous membranes Eyes PERRL, EOMs intact bilaterally and conjunctivae normal Neck supple General: trachea midline Chest inspection of chest normal Resp normal respiratory effort Auscultation: Negative for rales, rhonchi or wheezes Cardio regular rate, regular rhythm, S1 normal heart sound and S2 normal heart sound GI normal to inspection, nondistended, normoactive bowel sounds Extremity no clubbing, cyanosis or edema Skin no rashes or lesions noted Neuro CN's II-XII intact bilaterally, moves all extremities and no focal motor deficits Psych Mood & Affect: flat affect Charges/Coding Visit Charges Inpatient E&M: 56678 Subs Hosp L2
== END 2021-12-09 14:03 | disposition home or self-care (01) | DRG 917 ==
LOC: ED 16:49 → ICU 12-07 07:19 → PCU 12-08 12:20
PROVIDERS: Hospitalist; Internal Medicine Critical Care Medicine; Admitting Provider Internal Medicine; Emergency Provider Emergency Medicine; PCP Family Medicine Geriatric Medicine; Visit Provider Internal Medicine
DX: T40.2X1A Poisoning by other opioids, accidental (unintentional), initial encounter (principal); J96.01 Acute respiratory failure with hypoxia; I26.99 Other pulmonary embolism without acute cor pulmonale; G92.8 Other toxic encephalopathy; F11.23 Opioid dependence with withdrawal; E11.9 Type 2 diabetes mellitus without complications; Z79.4 Long term (current) use of insulin; I10 Essential (primary) hypertension; E78.5 Hyperlipidemia, unspecified; I16.0 Hypertensive urgency; S51.812A Laceration without foreign body of left forearm, initial encounter; K29.70 Gastritis, unspecified, without bleeding; I65.23 Occlusion and stenosis of bilateral carotid arteries; Z86.718 Personal history of other venous thrombosis and embolism; Z79.01 Long term (current) use of anticoagulants; Z79.899 Other long term (current) drug therapy; E66.9 Obesity, unspecified; X58.XXXA Exposure to other specified factors, initial encounter; Z87.19 Personal history of other diseases of the digestive system; Z68.23 Body mass index [BMI] 23.0-23.9, adult
CPT/HCPCS: 31500; 31720; 36415; 36600; 51702; 70450; 70496; 70498; 71045; 71275; 72125; 74174; 80048; 80053; 80307; 81001; 82077; 82550; 82803; 82962; 83605; 83690; 84478; 84484; 85025; 85610; 85730; 87040; 87070; 87205; 93005; 93306; 94002; 94003; 94660; 94762; 96372; 97116; 97162; 97166; 97530; 97802; 99251; 99282; 99285; J7030; J7120; Q9967; A4216; G0463; J0295; J2310; J2405

== ENCOUNTER → 2021-12-18 | Outpatient (CLI) | payer MEDICARE, SELFPAY | END | disposition home or self-care (01) | LOC: PSN 09:24 | PROVIDERS: PCP Family Medicine Geriatric Medicine; Referring Provider Family Medicine Geriatric Medicine; Visit Provider Family Medicine Geriatric Medicine | DX: R68.83 Chills (without fever) (principal) | CPT/HCPCS: 87426; 87804; 87807; C9803 ==

== ENCOUNTER 2021-12-30 10:45 | Outpatient (RCR) | payer MEDICARE, SELFPAY ==
[2021-12-23 09:52] VITALS: BP 133/61; PULSE 92; RESP 20; TEMP 36
--- NOTE | 2021-12-23 13:01 | PCM.WC.HP ---
History of Present Illness Date of Service: 12/23/21 Chief Complaint: Right arm skin tear and ulcer on right plantar surface of foot. History of Wound: Patient is a 71 year old female who presents with a right plantar foot ulcer that she has had awhile and she has a new skin tear on her right arm. She states that she she is clumsy and bumps into things frequently. She is a poor historian. She went to her PCP, Dr. Carlson and he placed her on an antibiotic (which she is not sure what it is) and referred her to the wound center. She has a history of DM type 2, HTN, DVT, PE, on Eliquis, and knee pain. She denies any fever, chills, nausea, vomiting. She states her appetite is good. She lives at home with her and states that he takes good care of her. Progress of Wound: Right forearm skin tear is superficial. Right plantar surface of right foot proximal to great toe had wound culture obtained. [facility] Medical History Abscess of right elbow Acute pancreatitis Arthritis Back problem Chest pain Diabetes Elevated hemoglobin A1c Essential (primary) hypertension History of deep venous thrombosis (01/2020) Hormone deficiency Hyperlipidemia Mass of skin of right elbow Seasonal allergies Type 2 diabetes mellitus Home Medications metoprolol tartrate 50 mg tablet 50 mg PO DAILY BLOOD PRESSURE 03/06/19 [History Last Taken 02/17/21] insulin degludec 200 unit/mL (3 mL) subcutaneous pen (Tresiba FlexTouch U-200 insulin) 80 unit subcut BID diabetes 01/21/21 [History Last Taken 02/17/21] lisinopril 10 mg tablet 10 mg PO DAILY BP 02/17/21 [History Last Taken 02/17/21] diclofenac sodium 1 % topical gel (Voltaren Arthritis Pain) 2 g topical TID PRN PRN pain #100 grams 04/02/21 [Rx Last Taken Unknown] rosuvastatin 20 mg tablet (Crestor) 20 mg PO DAILY #90 tabs 09/08/21 [Rx Last Taken Unknown] acetaminophen 325 mg tablet (Tylenol) 650 mg PO Q4H PRN PRN Pain 1-10 Or Fever #0 tabs 12/09/21 [Rx Last Taken Unknown] apixaban 5 mg tablet 5 mg PO BID #60 tabs 12/09/21 [Rx Last Taken Unknown] cephalexin 500 mg capsule 500 mg PO 12/21/21 [History Last Taken Unknown] Allergy/AdvReac Type Severity Reaction Status Date / Time diphenhydramine Allergy Swelling Verified 12/23/21 10:07 [From Benadryl] Family History Unknown Breast cancer Colon cancer Myocardial infarction Hypertension Hyperlipidemia Father Heart disease Hypertension Mother Diabetes Hypertension Kidney disease Liver disease Other Arthritis Surgical History History of Social History household members: spouse housing: house history of recent travel: No Smoking Status: Never smoker alcohol intake: never substance use type: does not use what type of physical activity do you participate in: none ROS Constitutional Constitutional: Reports as per HPI and frequent falls; Denies fatigue or fever(s) Eyes Eyes: Reports none ENT HEENT: Reports none Cardiovascular Cardiovascular: Reports as per HPI Respiratory/Chest Respiratory/Chest: Reports as per HPI Gastrointestinal Gastrointestinal: Reports none Genitourinary Genitourinary: Reports none Musculoskeletal Musculoskeletal: Reports joint pain and joint stiffness Integumentary Integumentary: Reports skin ulcer and wounds Neurologic Neurologic: Reports abnormal gait and numbness; Denies confusion Psychiatric Psychiatric: Reports none Endocrine Endocrinology: Reports none Hematologic/Lymphatic Hematologic/Lymphatic: Reports easy bleeding and easy bruising Vital Signs Vital Signs Vital Signs: 12/23/21 09:52 Temperature 96.8 F L Temperature Source Temporal Pulse Rate 92 Respiratory Rate 20 H Blood Pressure 133/61 H Blood Pressure Mean 85 Blood Pressure Source Monitor Physical Exam Const alert, oriented x3 and no apparent distress General Appearance: cooperative and comfortable HEENT normocephalic Eyes PERRL Lymph Lymphatic: no lymphedema noted Resp normal respiratory effort, normal air movement and clear to auscultation bilaterally Effort and Inspection: able to speak in complete sentences Cardio regular rate and regular rhythm Peripheral Pulses: dorsalis pedis pulses present GI soft to palpation and non-tender Extremity normal capillary refill Extremity Narrative: +1 edema bilateral lower extremities. Skin Wound Narrative: Skin tear right forearm is superficial and pink. Right plantar foot proximal to great toe there is an ulcer, pink base with undermining surrounding the ulcer. Neuro oriented x3 Sensorium / Orientation: awake and alert Speech: speech normal Psych cooperative and affect normal Appearance: well kempt Activity / Motor Behavior: appropriate eye contact Debridement Note Debridement Note Wound debrided: plantar foot ulcer Laterality: Right Type of Debridement: Excisional debridement Anesthesia Used: 5% Lidocaine Gel Depth: Down to and including healthy tissue and in the subcutaneous layer Percentage of wound debrided: 100 Instrument Used: #15 blade Tissue Removed: Devitalized tissue and slough Severity: Fat Layer Exposed Amount of bleeding with debridement: Mild Bleeding Controlled with: Compression and gauze Patient tolerated procedure: Patient tolerated procedure well Post-Debridement Measurements and Additional Note: Post-Debridement Measurements/Treatment - Nurse 1 - General Ulcer Assessment Start: 12/23/21 09:39 Freq: Status: Active Protocol: KELSIE Activity Type Activity Date Activity User E-sign Co-sign Detail Recorded Client Recorded Date Recorded By Document 12/23/21 09:52 [id number] 12/23/21 10:03 DL 12/23/21 09:52 - Today's Visit Information Type of service Initial Visit Arrival Mode Ambulatory Transfer Assistance None Patient Identification Verified (Name & Yes ) Finger Stick Blood Sugar(mg/dl) (if 98 indicated): Blood Sugar Stated by Patient Vital Signs Temperature (97.8 F-99.1 F) 96.8 F L Temperature Source Temporal Pulse Rate (60-100) 92 Pulse Location Monitor Respiratory Rate (12-18) 20 H Respiratory rate source Observation Blood Pressure (90/60-120/80) 133/61 H Blood Pressure Mean 85 Source Monitor Pain Scale: 0-10 Numeric Is Patient Pain Free? Yes Lower Extremity Assessment/ Foot Assessment/ Toe Nail Assessment Right -Posterior Tibial Palpable Yes -Dorsalis Pedis Palpable Yes -Extremity Color Normal -Hair Growth on Legs No -Hair Growth on Toes No -Temperature of Extremity Warm -Capillary Refill Greater than 3 Seconds -Dependent Rubor No -Blanched when Elevated No -Lipodermatosclerosis No -Other Deformity No -Prior Foot Ulcer No -Charcot Joint No -Prior Amputation No -Thick No -Discolored No -Deformed No Left -Posterior Tibial Palpable Yes -Dorsalis Pedis Palpable Yes -Extremity Color Normal -Hair Growth on Legs No -Hair Growth on Toes No -Temperature of Extremity Warm -Capillary Refill Greater than 3 Seconds -Dependent Rubor No -Blanched when Elevated No -Lipodermatosclerosis No -Other Deformity No -Prior Foot Ulcer No -Charcot Joint No -Prior Amputation No -Thick No -Discolored No -Deformed No -Improper Length & Hygeine No Neuropathy Assessment Feet - Top Side and Bottom <Entered> (a) Communication Assessment Preferred language [place] Citizen Ear Muff Assembler Required No Able to Read Yes Able to Write Yes Right Hearing Abillity Normal Left Hearing Abillity Normal Visual Assistive Devices Glasses Teaching Assessment Preferences Verbal,Written, Demonstration Barriers to Learning None Readiness To Learn Good Willingness to Engage in Self Management Med Activies Anxiety Level Calm Cooperation Cooperative Perception Coherent Interest in Health Problem Asks Questions Education Importance Acknowledges Need Does Patient Smoke tobacco or other No substances Is Patient Diabetic Yes Functional Assessment Recent Decline in Ability to Perform Denies Any Declines Teaching: Wound Center Discharge Instructions -Person Taught Patient Skin Care -Person Taught Patient Dressing Your Wound -Person Taught Patient Diagnostic Tests Ordered -Person Taught Patient *Welcome to the Wound Center -Person Taught Patient (a) 1 - + 2 - _ 3 - + WC - Nurse 1 - General Ulcer Measurement Start: 12/23/21 09:39 Freq: Status: Active Protocol: Activity Type Activity Date Activity User E-sign Co-sign Detail Recorded Client Recorded Date Recorded By Document 12/23/21 09:52 [id number] 12/23/21 10:03 LILY 12/23/21 09:52 Wound Center Nurse 1 #3 R Forearm -Current Size (cm) - Length 3.3 -Current Size (cm) - Width 1.3 -Current Size (cm) - Depth 0.1 -Total Square Cm 4.29 -Photo Taken Yes -Exudate Amt Medium -Exudate Type Serosanguineous -Wound Margin Distinct, Outline Attached -Granulation Amt Large (67-100%) -Granulation Quality Pale -Necrosis Amt Medium (34-66%) -Necrotic Tissue Type Adherent Slough -Structure Exposed N/A -Texture (Damaris-wound Skin Appearance) Scarring -Moisture (Damaris-wound Skin Appearance) No Abnormality -Color (Damaris-wound Skin Appearance) Ecchymosis -Temperature (Damaris-wound Skin No Abnormality Appearance) (Pt Warm) -Ulcer Cleansing Soap and Water -Foul Odor after Cleansing No -Anesthetic Used 5% Lidocaine Gel #2 R Grt Toe -Current Size (cm) - Length 21 -Current Size (cm) - Width 0.8 -Current Size (cm) - Depth 0.2 -Total Square Cm 16.8 -Photo Taken Yes -Exudate Amt Medium -Exudate Type Serosanguineous -Wound Margin Distinct, Outline Attached -Granulation Amt Small (1-33%) -Granulation Quality [place] -Necrosis Amt Small (1-33%) -Necrotic Tissue Type Adherent Slough -Structure Exposed N/A -Texture (Damaris-wound Skin Appearance) Localized Edema ,Scarring -Moisture (Damaris-wound Skin Appearance) Maceration -Color (Damaris-wound Skin Appearance) No Abnormality -Temperature (Damaris-wound Skin No Abnormality Appearance) (Pt Warm) -Ulcer Cleansing Soap and Water -Foul Odor after Cleansing No -Anesthetic Used 5% Lidocaine Gel WC - Nurse 2 - General Ulcer CM Notes Start: 12/23/21 09:39 Freq: Status: Active Protocol: Activity Type Activity Date Activity User E-sign Co-sign Detail Recorded Client Recorded Date Recorded By Document 12/23/21 10:44 [id number] 12/23/21 10:58 12/23/21 10:44 Wound Center Nurse 2 #3 R Forearm -Time 10:57 -Correct Patient Yes -Correct Side, Site, Position Yes -Correct Procedure Yes -Procedure Performed Yes -Type of Procedure Debridement -Clinical Debridement Subcutaneous -Tissue Removed Subcutaneous -Post Debridement (cm) - Length 4.0 -Post Debridement (cm) - Width 3.2 -Post Debridement (cm) - Depth 0.1 -Total Square (Post) (cm) 12.80 -Area of Debridement (cm) - Length 4.0 -Area of Debridement (cm) - Width 3.2 -Total Square (Area) (cm) 12.80 -Tunneling No -Undermining/Tunneling No -Circular Undermining No -Wound/Ulcer Outcome Not Healed -Ulcer Cleansing Rinsed/ Irrigated with Saline -Foul Odor after Cleansing No -Bioengineered Tissue No -Bleeding Controlled with Pressure -Treatment Response Procedure Tolerated Well -Offloading No -Debridement - Subq, 1st 20sq cm No #2 R Grt Toe -Time 10:44 -Correct Patient Yes -Correct Side, Site, Position Yes -Correct Procedure Yes -Procedure Performed Yes -Type of Procedure Debridement -Clinical Debridement Subcutaneous -Tissue Removed Subcutaneous -Post Debridement (cm) - Length 2.0 -Post Debridement (cm) - Width 1.8 -Post Debridement (cm) - Depth 0.2 -Total Square (Post) (cm) 3.60 -Area of Debridement (cm) - Length 2.0 -Area of Debridement (cm) - Width 1.8 -Total Square (Area) (cm) 3.60 -Tunneling No -Undermining/Tunneling No -Circular Undermining No -Wound/Ulcer Outcome Not Healed -Ulcer Cleansing Rinsed/ Irrigated with Saline -Foul Odor after Cleansing No -Bioengineered Tissue No -Bleeding Controlled with Pressure -Treatment Response Procedure Tolerated Well -Offloading Yes -Type of Offloading Surgical Shoe -Debridement - Subq, 1st 20sq cm Yes Pain Scale: 0-10 Numeric Is Patient Pain Free? Yes - Nurse 3 - General Ulcer D/C NN Start: 12/23/21 09:39 Freq: Status: Active Protocol: Activity Type Activity Date Activity User E-sign Co-sign Detail Recorded Client Recorded Date Recorded By Document 12/23/21 11:21 [id number] 12/23/21 11:23 12/23/21 11:21 Wound Care Nurse 3 #3 R Forearm -Ulcer Cleansing Rinsed/ Irrigated with Saline -Foul Odor after Cleansing No -Primary Dressing Applied NonAdherent Contact Layer -Other Dressing hydrogel -Primary Dressing Covered/Secured with Dry Gauze & Roll Gauze, Secured with Tape #2 R Grt Toe -Other Dressing hydrogel -Primary Dressing Covered/Secured with Dry Gauze & Roll Gauze, Secured with Tape Treatment Response Procedure Tolerated Well Pain Scale: 0-10 Numeric Is Patient Pain Free? Yes - Visit Discharge Discharge Condition Stable Ambulatory Status Wheelchair Transportation Private Auto Medication Reconcilliation completed & No provided to patient/care provider Clinical Summary of Care Provided Yes Additional Wound Wound debrided: forearm skin tear Laterality: Right Type of Debridement: Excisional debridement Anesthesia Used: 5% Lidocaine Gel Depth: Down to and including healthy tissue and in the subcutaneous layer Percentage of wound debrided: 100 Instrument Used: - (scissors and pick ups) Tissue Removed: Devitalized tissue and slough Severity: Fat Layer Exposed Amount of bleeding with debridement: Mild Bleeding Controlled with: Pressure Patient tolerated procedure: Patient tolerated procedure well Charges/Coding Visit Charges Office Visits / Consults: 16067 OV L3 Est (25 modifier) Procedures Integumentary [id number]: 64506 Zena subq tissue 20 sq cm/< Assessment/Plan Assessment/Plan (1) Ulcer of right foot due to type 2 diabetes mellitus: CODE(S): E11.621 - Type 2 diabetes mellitus with foot ulcer; L97.519 - Non-pressure chronic ulcer of other part of right foot with unspecified severity (2) Skin tear of right upper extremity: CODE(S): S41.111A - Laceration without foreign body of right upper arm, initial encounter (3) Type 2 diabetes mellitus treated with insulin: CODE(S): E11.9 - Type 2 diabetes mellitus without complications; Z79.4 - technician terminal and repeater (current) use of insulin PLAN: Plan Patient was evaluated at the wound healing center today. A subcutaneous debridement was performed as documented. Wound care - Right forearm skin tear will be collagen hydrogel covered with adaptic and topped with gauze daily. Right plantar foot ulcer will be Santyl nickel thickness covered with gauze daily. Wash both areas with soap and water at the time of the dressing change. Off load - [facility] right post op shoe to off load the right first metatarsal plantar surface. Instructed patient that the sandals she is wearing are not enough support. Continue the antibiotic that Dr. Carlson placed her on. Wound culture obtained today. Depending on the results of the wound culture, it may necessitate that need for treatment with antibiotics. Follow up one week.
[2021-12-30 10:57] VITALS: BP 142/70; PULSE 102; RESP 18; TEMP 36.1
--- NOTE | 2021-12-30 12:48 | PN.PCM_ITS ---
History of Present Illness Date of Service: 12/30/21 Chief Complaint: Right arm skin tear and ulcer on right plantar surface of foot. History of Wound: Patient is a 71 year old female who presents with a right plantar foot ulcer that she has had awhile and she has a new skin tear on her right arm. She states that she she is clumsy and bumps into things frequently. She is a poor historian. She went to her PCP, Dr. Carlson and he placed her on an antibiotic (which she is not sure what it is) and referred her to the wound center. She has a history of DM type 2, HTN, DVT, PE, on Eliquis, and knee pain. Wound culture 12/23/21 - positive for MRSE and Presumptive C albicans. She was started on Levaquin. She denies any fever, chills, nausea, vomiting. She states her appetite is good. She lives at home with her and states that he takes good care of her. Progress of Wound: Right forearm skin tear is improving and smaller in size. Right plantar surface of right foot proximal to great toe ulcer cluster appears larger this week. Objective Data Objective Data Vital Signs: Vital Signs Temp Pulse Resp BP 97 F L 102 H 18 142/70 H 12/30/21 10:57 12/30/21 10:57 12/30/21 10:57 12/30/21 10:57 Lab / Micro Data Micro: Microbiology 12/23/21 10:53 Wound Abcess - Right Foot Gram Stain - Final 12/23/21 10:53 Wound Abcess - Right Foot Wound Culture - Final Staphylococcus epidermidis Presumptive C albicans 12/23/21 10:53 Wound Abcess - Right Foot Anaerobic Culture - Final No anaerobic bacteria isolated. Charges/Coding Procedures Integumentary 111xxx-113xx: 27700 Zena subq tissue 20 sq cm/< Physical Exam Const alert and oriented x3 General Appearance: cooperative HEENT normocephalic Lymph Lymphatic: no lymphedema noted Resp normal air movement Effort and Inspection: able to speak in complete sentences Cardio regular rate Peripheral Pulses: dorsalis pedis pulses present Extremity normal capillary refill Extremity Narrative: +1 edema bilateral lower extremities. Skin Wound Narrative: Skin tear right forearm is superficial and smaller in size this week. Right plantar foot proximal to great toe there is an ulcer cluster, that appears larger this week. Neuro oriented x3 Sensorium / Orientation: awake and alert Speech: speech normal Psych cooperative and affect normal Appearance: well kempt Debridement Note Debridement Note Wound debrided: plantar foot ulcer cluster Laterality: Right Type of Debridement: Excisional debridement Anesthesia Used: 5% Lidocaine Gel Depth: Down to and including healthy tissue and in the subcutaneous layer Percentage of wound debrided: 100 Instrument Used: 3mm curette Tissue Removed: Devitalized tissue and slough Severity: Fat Layer Exposed Amount of bleeding with debridement: Mild Bleeding Controlled with: Compression and gauze Patient tolerated procedure: Patient tolerated procedure well Post-Debridement Measurements and Additional Note: Post-Debridement Measurements/Treatment - Nurse 1 - General Ulcer Assessment Start: 12/23/21 09:39 Freq: Status: Active Protocol: KELSIE Activity Type Activity Date Activity User E-sign Co-sign Detail Recorded Client Recorded Date Recorded By Document 12/23/21 09:52 DL [id number] 12/23/21 10:03 DL Document 12/30/21 10:57 RB [id number] 12/30/21 11:10 RB 12/23/21 12/30/21 09:52 10:57 - Today's Visit Information Type of service Initial Visit Follow-up Visit (Physician/MOBILE HOME TECHNICIAN ) Arrival Mode Ambulatory Ambulatory Transfer Assistance None None Patient Identification Verified (Name & Yes Yes ) Patient Requires Transmission-Based No Precautions Finger Stick Blood Sugar(mg/dl) (if 98 indicated): Blood Sugar Stated by Patient Vital Signs Temperature (97.8 F-99.1 F) 96.8 F L 97 F L Temperature Source Temporal Temporal Pulse Rate (60-100) 92 102 H Pulse Location Monitor Monitor Respiratory Rate (12-18) 20 H 18 Respiratory rate source Observation Observation Blood Pressure (90/60-120/80) 133/61 H 142/70 H Blood Pressure Mean (mm Hg) 85 94 Source Monitor Monitor Position Sitting Blood Pressure Location Left Arm History Since Last Visit- (Skip if this is Patient's initial visit) Have you changed medications since your No last visit? Any new allergies or adverse reactions No Had a fall/change in ADL's that may No increase risk of falls Signs or symptoms of abuse and/or No neglect since last visit Have you been in the hospital since your No last visit? Has dressing in place as prescribed Yes Has compression in place as prescribed No Has offloadiing in place as prescribed No Experienced any changes in pain level or No management Pain Scale: 0-10 Numeric Is Patient Pain Free? Yes Yes Lower Extremity Assessment/ Foot Assessment/ Toe Nail Assessment Right -Posterior Tibial Palpable Yes -Dorsalis Pedis Palpable Yes -Extremity Color Normal -Hair Growth on Legs No -Hair Growth on Toes No -Temperature of Extremity Warm -Capillary Refill Greater than 3 Seconds -Dependent Rubor No -Blanched when Elevated No -Lipodermatosclerosis No -Other Deformity No -Prior Foot Ulcer No -Charcot Joint No -Prior Amputation No -Thick No -Discolored No -Deformed No Left -Posterior Tibial Palpable Yes -Dorsalis Pedis Palpable Yes -Extremity Color Normal -Hair Growth on Legs No -Hair Growth on Toes No -Temperature of Extremity Warm -Capillary Refill Greater than 3 Seconds -Dependent Rubor No -Blanched when Elevated No -Lipodermatosclerosis No -Other Deformity No -Prior Foot Ulcer No -Charcot Joint No -Prior Amputation No -Thick No -Discolored No -Deformed No -Improper Length & Hygeine No Neuropathy Assessment Feet - Top Side and Bottom <Entered> (a) Communication Assessment Preferred language [facility] Pharmacist Required No Able to Read Yes Able to Write Yes Right Hearing Abillity Normal Left Hearing Abillity Normal Visual Assistive Devices Glasses Teaching Assessment Preferences Verbal,Written, Demonstration Barriers to Learning None Readiness To Learn Good Willingness to Engage in Self Management Med Activies Anxiety Level Calm Cooperation Cooperative Perception Coherent Interest in Health Problem Asks Questions Education Importance Acknowledges Need Does Patient Smoke tobacco or other No substances Is Patient Diabetic Yes Functional Assessment Recent Decline in Ability to Perform Denies Any Declines Teaching: Wound Center Discharge Instructions -Person Taught Patient Skin Care -Person Taught Patient Dressing Your Wound -Person Taught Patient Diagnostic Tests Ordered -Person Taught Patient *Welcome to the Wound Center -Person Taught Patient (a) 1 - + 2 - _ 3 - + WC - Nurse 1 - General Ulcer Measurement Start: 12/23/21 09:39 Freq: Status: Active Protocol: Activity Type Activity Date Activity User E-sign Co-sign Detail Recorded Client Recorded Date Recorded By Document 12/23/21 09:52 DL [id number] 12/23/21 10:03 DL Document 12/30/21 10:57 RB [id number] 12/30/21 11:10 RB 12/23/21 12/30/21 09:52 10:57 Wound Center Nurse 1 #3 R Forearm -Combined with other wound No -Current Size (cm) - Length 3.3 2.5 -Current Size (cm) - Width 1.3 0.9 -Current Size (cm) - Depth 0.1 0.1 -Total Square Cm 4.29 2.25 -Photo Taken Yes Yes -Tunneling No -Undermining/Tunneling No -Circular Undermining No -Exudate Amt Medium -Exudate Type Serosanguineous -Wound Margin Distinct, Outline Attached -Granulation Amt Large (67-100%) Medium (34-66%) -Granulation Quality Pale [place] -Slough/Fibrin Yes -Necrosis Amt Medium (34-66%) Medium (34-66%) -Necrotic Tissue Type Adherent Slough Adherent Slough -Structure Exposed N/A N/A -Texture (Damaris-wound Skin Appearance) Scarring Assessed -Moisture (Damaris-wound Skin Appearance) No Abnormality Assessed -Color (Damaris-wound Skin Appearance) Ecchymosis Assessed -Temperature (Damaris-wound Skin No Abnormality No Abnormality Appearance) (Pt Warm) (Pt Warm) -Tenderness on Palpation (Damaris-wound No Skin Appearance) -Ulcer Cleansing Soap and Water Wound Cleanser -Foul Odor after Cleansing No No -Anesthetic Used 5% Lidocaine 5% Lidocaine Gel Gel #2 R Grt Toe cluster plantar -Combined with other wound No -Current Size (cm) - Length 21 0.5 -Current Size (cm) - Width 0.8 0.3 -Current Size (cm) - Depth 0.2 0.3 -Total Square Cm 16.8 0.15 -Photo Taken Yes Yes -Tunneling No -Undermining/Tunneling No -Circular Undermining No -Exudate Amt Medium Medium -Exudate Type Serosanguineous Serosanguineous -Wound Margin Distinct, Distinct, Outline Outline Attached Attached -Granulation Amt Small (1-33%) Medium (34-66%) -Granulation Quality [place] -Slough/Fibrin Yes -Necrosis Amt Small (1-33%) Medium (34-66%) -Necrotic Tissue Type Adherent Slough Adherent Slough -Structure Exposed N/A N/A -Texture (Damaris-wound Skin Appearance) Localized Edema Assessed ,Scarring -Moisture (Damaris-wound Skin Appearance) Maceration Assessed -Color (Damaris-wound Skin Appearance) No Abnormality Not Assessed -Temperature (Damaris-wound Skin No Abnormality No Abnormality Appearance) (Pt Warm) (Pt Warm) -Tenderness on Palpation (Damaris-wound No Skin Appearance) -Ulcer Cleansing Soap and Water Wound Cleanser -Foul Odor after Cleansing No No -Anesthetic Used 5% Lidocaine 5% Lidocaine Gel Gel WC - Nurse 2 - General Ulcer CM Notes Start: 12/23/21 09:39 Freq: Status: Active Protocol: Activity Type Activity Date Activity User E-sign Co-sign Detail Recorded Client Recorded Date Recorded By Document 12/23/21 10:44 [id number] 12/23/21 10:58 Document 12/30/21 11:34 Desktop 12/30/21 11:42 12/23/21 12/30/21 10:44 11:34 Wound Center Nurse 2 #3 R Forearm -Time 10:57 11:41 -Correct Patient Yes Yes -Correct Side, Site, Position Yes Yes -Correct Procedure Yes Yes -Procedure Performed Yes Yes -Type of Procedure Debridement Debridement -Clinical Debridement Subcutaneous Subcutaneous -Tissue Removed Subcutaneous Subcutaneous -Post Debridement (cm) - Length 4.0 2.7 -Post Debridement (cm) - Width 3.2 1 -Post Debridement (cm) - Depth 0.1 0.1 -Total Square (Post) (cm) 12.80 2.7 -Area of Debridement (cm) - Length 4.0 2.7 -Area of Debridement (cm) - Width 3.2 1 -Total Square (Area) (cm) 12.80 2.7 -Tunneling No No -Undermining/Tunneling No No -Circular Undermining No No -Wound/Ulcer Outcome Not Healed Not Healed -Ulcer Cleansing Rinsed/ Rinsed/ Irrigated with Irrigated with Saline Saline -Foul Odor after Cleansing No No -Bioengineered Tissue No No -Bleeding Controlled with Pressure Pressure -Treatment Response Procedure Procedure Tolerated Well Tolerated Well -Offloading No No -Debridement - Subq, 1st 20sq cm No No #2 R Grt Toe cluster plantar -Time 10:44 11:34 -Correct Patient Yes Yes -Correct Side, Site, Position Yes Yes -Correct Procedure Yes Yes -Procedure Performed Yes Yes -Type of Procedure Debridement Debridement -Clinical Debridement Subcutaneous Subcutaneous -Tissue Removed Subcutaneous Subcutaneous -Post Debridement (cm) - Length 2.0 1.5 -Post Debridement (cm) - Width 1.8 0.7 -Post Debridement (cm) - Depth 0.2 0.3 -Total Square (Post) (cm) 3.60 1.05 -Area of Debridement (cm) - Length 2.0 1.5 -Area of Debridement (cm) - Width 1.8 0.7 -Total Square (Area) (cm) 3.60 1.05 -Tunneling No No -Undermining/Tunneling No No -Circular Undermining No No -Wound/Ulcer Outcome Not Healed Not Healed -Ulcer Cleansing Rinsed/ Rinsed/ Irrigated with Irrigated with Saline Saline -Foul Odor after Cleansing No No -Bioengineered Tissue No No -Bleeding Controlled with Pressure Pressure -Treatment Response Procedure Procedure Tolerated Well Tolerated Well -Offloading Yes Yes -Type of Offloading Surgical Shoe Surgical Shoe -Debridement - Subq, 1st 20sq cm Yes Yes Pain Scale: 0-10 Numeric Is Patient Pain Free? Yes Yes - Nurse 3 - General Ulcer D/C NN Start: 12/23/21 09:39 Freq: Status: Active Protocol: Activity Type Activity Date Activity User E-sign Co-sign Detail Recorded Client Recorded Date Recorded By Document 12/23/21 11:21 [id number] 12/23/21 11:23 Document 12/30/21 11:50 [id number] 12/30/21 11:51 12/23/21 12/30/21 11:21 11:50 Wound Care Nurse 3 #3 R Forearm -Ulcer Cleansing Rinsed/ Rinsed/ Irrigated with Irrigated with Saline Saline -Foul Odor after Cleansing No -Primary Dressing Applied NonAdherent NonAdherent Contact Layer Contact Layer -Other Dressing hydrogel hydrogel -Primary Dressing Covered/Secured with Dry Gauze & Dry Gauze,Dry Roll Gauze, Gauze & Roll Secured with Gauze,Secured Tape with Tape #2 R Grt Toe cluster plantar -Other Dressing hydrogel hydrogel -Primary Dressing Covered/Secured with Dry Gauze & Dry Gauze, Roll Gauze, Secured with Secured with Tape Tape Treatment Response Procedure Procedure Tolerated Well Tolerated Well Pain Scale: 0-10 Numeric Is Patient Pain Free? Yes Yes - Visit Discharge Discharge Condition Stable Stable Ambulatory Status Wheelchair Ambulatory Transportation Private Auto Private Auto Medication Reconcilliation completed & No No provided to patient/care provider Clinical Summary of Care Provided Yes Yes Notes: dressing applied per Windy Brewster Assessment/Plan Assessment/Plan (1) Ulcer of right foot due to type 2 diabetes mellitus: CODE(S): E11.621 - Type 2 diabetes mellitus with foot ulcer; L97.519 - Non-pressure chronic ulcer of other part of right foot with unspecified severity (2) Skin tear of right upper extremity: CODE(S): S41.111A - Laceration without foreign body of right upper arm, initial encounter (3) Type 2 diabetes mellitus treated with insulin: CODE(S): E11.9 - Type 2 diabetes mellitus without complications; Z79.4 - custodial (current) use of insulin PLAN: Plan Patient was evaluated at the wound healing center today. A subcutaneous debridement was performed as documented. Wound care - Right forearm skin tear will be collagen hydrogel covered with adaptic and topped with gauze daily. Right plantar foot ulcer will be Santyl nickel thickness covered with gauze daily. Wash both areas with soap and water at the time of the dressing change. Off load - She obtained her right Darco shoe to off load the right first metatarsal plantar surface. Stop the antibiotic that Dr. Carlson placed her on and start Levaquin for her positive wound culture. Follow up one week.
== END 2022-01-01 23:59 | disposition home or self-care (01) ==
LOC: WC 10:45
PROVIDERS: PCP Family Medicine Geriatric Medicine; Visit Provider Nurse Practitioner Family
DX: E11.621 Type 2 diabetes mellitus with foot ulcer (principal); L97.512 Non-pressure chronic ulcer of other part of right foot with fat layer exposed; E11.40 Type 2 diabetes mellitus with diabetic neuropathy, unspecified; Z79.4 Long term (current) use of insulin; S51.811A Laceration without foreign body of right forearm, initial encounter; R60.0 Localized edema; Z79.01 Long term (current) use of anticoagulants; E78.5 Hyperlipidemia, unspecified; L90.5 Scar conditions and fibrosis of skin; I10 Essential (primary) hypertension; W22.09XA Striking against other stationary object, initial encounter; Z79.899 Other long term (current) drug therapy; Z86.711 Personal history of pulmonary embolism; Z86.718 Personal history of other venous thrombosis and embolism
CPT/HCPCS: 11042; 87070; 87075; 87077; 87186; 87205; 99213; G0463

== ENCOUNTER 2022-01-25 14:24 | Outpatient (RCR) | payer MEDICARE, SELFPAY ==
[2022-01-02 01:49] VITALS: BP 142/70; PULSE 102; RESP 18; TEMP 36.1
[2022-01-25 14:27] VITALS: BP 149/48; PULSE 111; TEMP 36.4
--- NOTE | 2022-01-25 16:09 | PN.PCM_ITS ---
History of Present Illness Date of Service: 01/25/22 Chief Complaint: Right arm skin tear and ulcer on right plantar surface of foot. History of Wound: Patient is a 71 year old female who presents with a right plantar foot ulcer that she has had awhile and she has a new skin tear on her right arm. She states that she she is clumsy and bumps into things frequently. She is a poor historian. She went to her PCP, Dr. Carlson and he placed her on an antibiotic (which she is not sure what it is) and referred her to the wound center. She has a history of DM type 2, HTN, DVT, PE, on Eliquis, and knee pain. She denies any fever, chills, nausea, vomiting. She states her appetite is good. She lives at home with her and states that he takes good care of her. Progress of Wound: Right plantar ulcer proximal to great toe is stable. She has a new wound on her right lateral foot caused from her Darco show rubbing. It is a stage 2 and wound bed is beefy pink. Right forearm skin tear is healed. Objective Data Objective Data Vital Signs: Vital Signs Temp Pulse Resp BP 97.6 F L 111 H 18 149/48 H 01/25/22 14:27 01/25/22 14:27 01/02/22 01:49 01/25/22 14:27 Charges/Coding Procedures Integumentary 111xxx-113xx: 32147 Zena subq tissue 20 sq cm/< Debridement Note Debridement Note Wound debrided: plantar foot ulcer cluster, proximal to great toe Laterality: Right Wound Grade/Stage: Stage II Type of Debridement: Excisional debridement Anesthesia Used: 5% Lidocaine Gel Depth: Down to and including healthy tissue and in the subcutaneous layer Percentage of wound debrided: 100 Instrument Used: 3mm curette Tissue Removed: Devitalized tissue and slough Severity: Fat Layer Exposed Amount of bleeding with debridement: Mild Bleeding Controlled with: Compression and gauze Patient tolerated procedure: Patient tolerated procedure well Post-Debridement Measurements and Additional Note: Post-Debridement Measurements/Treatment WC - Nurse 1 - General Ulcer Assessment Start: 01/25/22 14:27 Freq: Status: Active Protocol: KELSIE Activity Type Activity Date Activity User E-sign Co-sign Detail Recorded Client Recorded Date Recorded By Document 01/25/22 14:27 KR [id number] 01/25/22 14:34 01/25/22 14:27 - Today's Visit Information Type of service Follow-up Visit (Physician/CAREER SERVICES MANAGER ) Arrival Mode Ambulatory Patient Identification Verified (Name & Yes ) Vital Signs Temperature (97.8 F-99.1 F) 97.6 F L Temperature Source Temporal Pulse Rate (60-100) 111 H Pulse Location Monitor Blood Pressure (90/60-120/80) 149/48 H Blood Pressure Mean (mm Hg) 81 Source Monitor Position Sitting Blood Pressure Location Left Arm History Since Last Visit- (Skip if this is Patient's initial visit) Have you changed medications since your No last visit? Any new allergies or adverse reactions No Had a fall/change in ADL's that may No increase risk of falls Signs or symptoms of abuse and/or No neglect since last visit Have you been in the hospital since your No last visit? Has dressing in place as prescribed Yes Has compression in place as prescribed N/A Has offloadiing in place as prescribed N/A Experienced any changes in pain level or No management Left Footwear Regular Shoe Right Footwear Regular Shoe Pain Scale: 0-10 Numeric Is Patient Pain Free? Yes - Nurse 1 - General Ulcer Measurement Start: 01/25/22 14:27 Freq: Status: Active Protocol: Activity Type Activity Date Activity User E-sign Co-sign Detail Recorded Client Recorded Date Recorded By Document 01/25/22 14:27 [id number] 01/25/22 14:34 01/25/22 14:27 Wound Center Nurse 1 #4 right Lateral foot -Current Size (cm) - Length 2 -Current Size (cm) - Width 1 -Current Size (cm) - Depth 0.2 -Total Square Cm 2 -Exudate Amt Small -Exudate Type Serosanguineous -Wound Margin Distinct, Outline Attached -Granulation Amt Medium (34-66%) -Granulation Quality Whitney -Necrosis Amt None Present (0 %) -Texture (Damaris-wound Skin Appearance) Assessed, Scarring -Moisture (Damaris-wound Skin Appearance) No Abnormality, Assessed -Color (Damaris-wound Skin Appearance) No Abnormality, Assessed -Temperature (Damaris-wound Skin No Abnormality Appearance) (Pt Warm) -Tenderness on Palpation (Damaris-wound No Skin Appearance) -Ulcer Cleansing Rinsed/ Irrigated with Saline -Foul Odor after Cleansing No -Anesthetic Used 5% Lidocaine Gel #2 R Grt Toe cluster plantar -Current Size (cm) - Length 0.6 -Current Size (cm) - Width 0.2 -Current Size (cm) - Depth 0.2 -Total Square Cm 0.12 -Exudate Amt Small -Exudate Type Serosanguineous -Wound Margin Distinct, Outline Attached -Granulation Amt Small (1-33%) -Granulation Quality Whitney -Necrosis Amt None Present (0 %) -Texture (Damaris-wound Skin Appearance) Assessed, Scarring -Moisture (Damaris-wound Skin Appearance) No Abnormality, Assessed -Color (Damaris-wound Skin Appearance) No Abnormality, Assessed -Temperature (Damaris-wound Skin No Abnormality Appearance) (Pt Warm) -Tenderness on Palpation (Damaris-wound No Skin Appearance) -Ulcer Cleansing Rinsed/ Irrigated with Saline -Foul Odor after Cleansing No -Anesthetic Used 5% Lidocaine Gel WC - Nurse 2 - General Ulcer CM Notes Start: 01/25/22 14:27 Freq: Status: Active Protocol: Activity Type Activity Date Activity User E-sign Co-sign Detail Recorded Client Recorded Date Recorded By Document 01/25/22 14:46 [id number] 01/25/22 14:58 01/25/22 14:46 Wound Center Nurse 2 #3 R Forearm -Correct Patient No -Correct Side, Site, Position No -Correct Procedure No -Procedure Performed No -Post Debridement (cm) - Length 0 -Post Debridement (cm) - Width 0 -Post Debridement (cm) - Depth 0 -Total Square (Post) (cm) 0 -Area of Debridement (cm) - Length 0 -Area of Debridement (cm) - Width 0 -Total Square (Area) (cm) 0 -Wound/Ulcer Outcome Healed- Epithelialized #4 right Lateral foot -Time 14:48 -Correct Patient Yes -Correct Side, Site, Position Yes -Correct Procedure Yes -Procedure Performed Yes -Type of Procedure Debridement -Clinical Debridement Subcutaneous -Tissue Removed Subcutaneous -Post Debridement (cm) - Length 1.7 -Post Debridement (cm) - Width 1.0 -Post Debridement (cm) - Depth 0.1 -Total Square (Post) (cm) 1.70 -Area of Debridement (cm) - Length 1.7 -Area of Debridement (cm) - Width 1.0 -Total Square (Area) (cm) 1.70 -Tunneling No -Undermining/Tunneling No -Circular Undermining No -Wound/Ulcer Outcome Not Healed -Ulcer Cleansing Rinsed/ Irrigated with Saline -Foul Odor after Cleansing No -Bioengineered Tissue No -Bleeding Controlled with Pressure -Treatment Response Procedure Tolerated Well -Offloading Yes -Type of Offloading Surgical Shoe -Debridement - Subq, 1st 20sq cm No #2 R Grt Toe cluster plantar -Time 14:46 -Correct Patient Yes -Correct Side, Site, Position Yes -Correct Procedure Yes -Procedure Performed Yes -Type of Procedure Debridement -Clinical Debridement Subcutaneous -Tissue Removed Subcutaneous -Post Debridement (cm) - Length 0.7 -Post Debridement (cm) - Width 0.4 -Post Debridement (cm) - Depth 0.2 -Total Square (Post) (cm) 0.28 -Area of Debridement (cm) - Length 0.7 -Area of Debridement (cm) - Width 0.4 -Total Square (Area) (cm) 0.28 -Tunneling No -Undermining/Tunneling No -Circular Undermining No -Wound/Ulcer Outcome Not Healed -Ulcer Cleansing Rinsed/ Irrigated with Saline -Foul Odor after Cleansing No -Bioengineered Tissue No -Bleeding Controlled with Pressure -Treatment Response Procedure Tolerated Well -Offloading Yes -Type of Offloading Surgical Shoe -Debridement - Subq, 1st 20sq cm Yes Pain Scale: 0-10 Numeric Is Patient Pain Free? Yes - Nurse 3 - General Ulcer D/C NN Start: 01/25/22 14:27 Freq: Status: Active Protocol: Activity Type Activity Date Activity User E-sign Co-sign Detail Recorded Client Recorded Date Recorded By Document 01/25/22 15:06 ANUPAM [id number] 01/25/22 15:07 ANUPAM 01/25/22 15:06 Wound Care Nurse 3 #4 right Lateral foot -Ulcer Cleansing Rinsed/ Irrigated with Saline -Primary Dressing Applied C Hydrogel ($) -Primary Dressing Covered/Secured with Dry Gauze,Dry Gauze & Roll Gauze,Secured with Tape Pain Scale: 0-10 Numeric Is Patient Pain Free? Yes - Visit Discharge Discharge Condition Stable Ambulatory Status Ambulatory, Walker Transportation Private Auto Additional Wound Wound debrided: lateral foot wound Laterality: Right Wound Grade/Stage: Stage II Type of Debridement: Excisional debridement Anesthesia Used: 5% Lidocaine Gel Depth: Down to and including healthy tissue and in the subcutaneous layer Percentage of wound debrided: 100 Instrument Used: 3mm curette and - (pick ups and scissors) Tissue Removed: Devitalized tissue and slough Severity: Fat Layer Exposed Amount of bleeding with debridement: Mild Bleeding Controlled with: Compression and gauze Patient tolerated procedure: Patient tolerated procedure well Assessment/Plan Assessment/Plan (1) Ulcer of right foot due to type 2 diabetes mellitus: CODE(S): E11.621 - Type 2 diabetes mellitus with foot ulcer; L97.519 - Non-pressure chronic ulcer of other part of right foot with unspecified severity (2) Open wound of right foot: CODE(S): S91.301A - Unspecified open wound, right foot, initial encounter QUALIFIERS: Encounter type: initial encounter Qualified Code(s): S91.301A - Unspecified open wound, right foot, initial encounter (3) Type 2 diabetes mellitus treated with insulin: CODE(S): E11.9 - Type 2 diabetes mellitus without complications; Z79.4 - correction (current) use of insulin PLAN: Plan Patient was evaluated at the wound healing center today. A subcutaneous debridement was performed as documented. Wound care - Right forearm skin tear is healed. Massage with lotion to help soften scarring. Right plantar foot ulcer and right lateral foot wound will be Santyl nickel thickness covered with gauze daily. Wash both areas with soap and water at the time of the dressing change. Off load - She obtained her right Darco shoe to off load the right first me tatarsal plantar surface. She will go back to the foot and ankle clinic to have them modify her shoe to prevent pressure on her right lateral foot, before she leaves for vacation. Stop the antibiotic that Dr. Carlson placed her on and start Levaquin for her positive wound culture. Scheduled for vascular studies on 02/10/22. Follow up two weeks. They are going on vacation to the [facility]. I nstructed patient that she is not to get her foot wet and she needs to refrain from walking a lot and should off load as much as possible.
== END 2022-02-01 23:59 | disposition home or self-care (01) ==
LOC: WC 14:24
PROVIDERS: PCP Family Medicine Geriatric Medicine; Visit Provider Nurse Practitioner Family
DX: E11.621 Type 2 diabetes mellitus with foot ulcer (principal); L97.512 Non-pressure chronic ulcer of other part of right foot with fat layer exposed; Z79.4 Long term (current) use of insulin; I10 Essential (primary) hypertension; Z86.711 Personal history of pulmonary embolism; Z86.718 Personal history of other venous thrombosis and embolism; Z79.01 Long term (current) use of anticoagulants
CPT/HCPCS: 11042

== ENCOUNTER 2022-01-26 20:11 | Emergency (ER) | payer MEDICARE, SELFPAY ==
[2022-01-26 20:12] VITALS: BP 128/68; PULSE 82; RESP 15; TEMP 36.3; O2SAT 96; BMI 19.2
--- NOTE | 2022-01-26 21:22 | EDS_ITS ---
HPI History of Present Illness Chief Complaint: Lower Extremity Injury Narrative Narrative: 71-year-old female here with concern for diabetic foot ulcer. History of type 2 diabetes, diabetic foot ulcer, hypertension, history of PE DVT on Eliquis. The patient states she saw wound care yesterday cleaned her wound to the right lower extremity and ever since he had severe pain is constant worse with movement improved with rest. Denies any fevers. States she thought she had been pres cribed antibiotics. He does note some redness. Denies any fevers chills nausea vomiting. [facility] Medical History (Reviewed 12/27/21 @ 13:27 by Jacquelyn Santos HUMAN RESOURCES RECRUITER, HUMAN RESOURCES RECRUITER-C) Abscess of right elbow Acute pancreatitis Arthritis Back problem Chest pain Diabetes Elevated hemoglobin A1c Essential (primary) hypertension History of deep venous thrombosis (01/2020) Hormone deficiency Hyperlipidemia Mass of skin of right elbow Seasonal allergies Type 2 diabetes mellitus Home Medications metoprolol tartrate 50 mg tablet 50 mg PO DAILY BLOOD PRESSURE 03/06/19 [History Last Taken 02/17/21] insulin degludec 200 unit/mL (3 mL) subcutaneous pen (Tresiba FlexTouch U-200 insulin) 80 unit subcut BID diabetes 01/21/21 [History Last Taken 02/17/21] lisinopril 10 mg tablet 10 mg PO DAILY BP 02/17/21 [History Last Taken 02/17/21] diclofenac sodium 1 % topical gel (Voltaren Arthritis Pain) 2 g topical TID PRN PRN pain #100 grams 04/02/21 [Rx Last Taken Unknown] rosuvastatin 20 mg tablet (Crestor) 20 mg PO DAILY #90 tabs 09/08/21 [Rx Last Taken Unknown] acetaminophen 325 mg tablet (Tylenol) 650 mg PO Q4H PRN PRN Pain 1-10 Or Fever #0 tabs 12/09/21 [Rx Last Taken Unknown] apixaban 5 mg tablet 5 mg PO BID #60 tabs 12/09/21 [Rx Last Taken Unknown] cephalexin 500 mg capsule 500 mg PO 12/21/21 [History Last Taken Unknown] levofloxacin 500 mg tablet 500 mg PO DAILY 14 days #14 tabs 12/30/21 [Rx Last Taken Unknown] cephalexin 500 mg capsule 500 mg PO Q6 7 days #28 caps 01/26/22 [Rx Last Taken Unknown] sulfamethoxazole 800 mg-trimethoprim 160 mg tablet (Bactrim DS) 1 tab PO BID 14 days #28 tabs 01/26/22 [Rx Last Taken Unknown] Allergy/AdvReac Type Severity Reaction Status Date / Time diphenhydramine Allergy Swelling Verified 01/26/22 20:12 [From Benadryl] Family History (Reviewed 12/27/21 @ 13:27 by Jacquelyn Santos HUMAN RESOURCES RECRUITER, HUMAN RESOURCES RECRUITER-C) Unknown Breast cancer Colon cancer Myocardial infarction Hypertension Hyperlipidemia Father Heart disease Hypertension Mother Diabetes Hypertension Kidney disease Liver disease Other Arthritis Surgical History (Reviewed 12/27/21 @ 13:27 by Jacquelyn Santos HUMAN RESOURCES RECRUITER, HUMAN RESOURCES RECRUITER-C) History of Social History (Reviewed 12/27/21 @ 13:27 by Jacquelyn Santos HUMAN RESOURCES RECRUITER, HUMAN RESOURCES RECRUITER-C) household members: spouse housing: house history of recent travel: No Smoking Status: Never smoker alcohol intake: never substance use type: does not use what type of physical activity do you participate in: none ROS ROS ED ROS Narrative Constitutional: Denies fever HEENT: Denies sore throat Neck: Denies neck pain Cardiovascular: Denies chest pain, syncope Respiratory: Denies shortness of breath GI: Denies nausea vomiting or abdominal pain : Denies changes in urinary habits Musculoskeletal: Denies muscle or joint pain Neurologic: Denies numbness weakness or loss of sensation Skin endorses diabetic foot ulcer EXAM Physical Exam Narrative Exam Narrative: Nursing triage notes reviewed, Vital signs reviewed Constitutional: please see mdm HENT: MMM Eyes: Pupils equal round and reactive to light, Extraocular muscles intact Neck: No stridor, no JVD, full neck ROM Lungs: Clear to auscultation, No wheezing or rales. No increased work of breathing, no conversational dyspnea, no accessory muscle use, no nasal flaring. No respiratory distress noted Heart: Regular rate and rhythm, No murmurs, No rubs and No gallops, 2+ distal pulses (radial, femoral, posterior tibial) in all extremities Abdomen: Soft, there is no tenderness, rigidity, rebound or guarding, no obvious peritoneal signs, no palpable pulsatile abdominal masses, no auscultated abdominal bruit : No CVAT Extremities: No edema Neuro: No focal neurological deficits, cranial nerves II through XII intact, 5/5 strength in all extremities. Intact sensation to light touch in all extremities, 2+ reflexes bilateral patella dens. Normal gait. No ataxia. Skin: Some erythema, noted wound to the right distal lateral fifth metatarsal. No obvious fluctuance, induration, crepitus or bullae. Const Vital Signs: 01/26/22 20:12 Temperature 97.3 F L Temperature Source Temporal Pulse Rate 82 Respiratory Rate 15 Blood Pressure 128/68 H Blood Pressure Mean 88 Pulse Ox 96 Oxygen Delivery Method Room Air MDM MDM MDM Narrative Medical decision making narrative: 71-year-old diabetic female here with concern for infected diabetic foot ulcer. Exam without abscess, purulence, there was some confluent erythema could be irritation for cellulitis. Will give Bactrim, Keflex. No evidence of necrotizing fasciitis. Obtained x-ray to rule out osteomyelitic changes. X-ray showed Treatment and Re-Evaluation Narrative: The patient tolerated oral antibiotics well she is appropriate discharge home on Keflex and Bactrim Discharge Plan Triage Chief Complaint: Lower Extremity Injury ED Provider: Rebel Morgan Dx/Rx/DC Orders Clinical Impression: Cellulitis, Diabetic foot ulcer Instructions: Changing Dressing Dc, ED Wound Care Prescriptions: New sulfamethoxazole-trimethoprim [Bactrim DS] 800-160 mg tablet 1 tab PO BID 14 Days Qty: 28 0RF cephalexin 500 mg capsule 500 mg PO Q6 7 Days Qty: 28 0RF No Action rosuvastatin [Crestor] 20 mg tablet 20 mg PO DAILY Qty: 90 3RF cephalexin 500 mg capsule 500 mg PO metoprolol tartrate 50 MG tablet 50 mg PO DAILY insulin degludec [Tresiba FlexTouch U-200] 200 unit/mL (3 mL) insulin pen 80 unit SUBCUT BID Hold Instructions: [place] [address]. Hold if glucose less than 130 mg/dl lisinopril 10 mg tablet 10 mg PO DAILY diclofenac sodium [Voltaren Arthritis Pain] 1 % gel 2 g topical TID PRN PRN (Reason: pain) Qty: 100 2RF acetaminophen [Tylenol] 325 mg Tablet 650 mg PO Q4H PRN PRN (Reason: Pain 1-10 Or Fever) Qty: 0 0RF Rx Instructions: For mild to moderate pain apixaban 5 mg Tablet 5 mg PO BID Qty: 60 0RF levofloxacin 500 mg tablet 500 mg PO DAILY 14 Days Qty: 14 0RF Primary Care Provider: Alfonso Carlson Chi Referrals: Alfonso Carlson Chi, MD [Primary Care Provider] - Activity Restrictions/Additional Instructions: Please take antibiotics as prescribed. Please take Tylenol, ibuprofen for pain control. Please return if he cannot tolerate antibiotics by mouth or if you notice white or yellow discharge, increasing pain and redness around your wound. Please follow-up with wound care at the next billable appointment. Disposition Disposition: Home, Self Care
[2022-01-26] MEDS: Smz/Tmp Ds Tablet 1 TABLET PO (21:48)
[2022-01-26] MEDS: Cephalexin 250 MG Capsule 500 MG PO (21:48)
[2022-01-26] MEDS: oxyCODONE 5 MG Tablet PO (21:48)
--- NOTE | 2022-01-26 22:00 | RAD_ITS ---
STUDY: X-RAY - RIGHT FOOT CLINICAL: Female, 71 years old. lateral ulceration assess for osteomyelitis TECHNIQUE: 3 view(s) of the foot. COMPARISON: None. FINDINGS: No fracture or dislocation. No osseous erosion or periostitis. Normal mineralization. Fibular fixation placement complex partially seen without perihardware lucency or evidence of hardware failure in the study field of view. Peripheral atherosclerosis. RAD/Foot min 3 Views IMPRESSION: No radiographic finding to suggest osteomyelitis. Portions of the fibular fixation plate are excluded from some views. Electronically Signed: Bob Rutledge MD at 22:34 EDT ,
[2022-01-26 23:06] VITALS: BP 128/68; PULSE 82; RESP 15; O2SAT 96
== END 2022-01-26 23:06 | disposition home or self-care (01) ==
PROVIDERS: Emergency Provider Emergency Medicine; PCP Family Medicine Geriatric Medicine; Visit Provider Emergency Medicine
DX: L03.115 Cellulitis of right lower limb (principal); E11.621 Type 2 diabetes mellitus with foot ulcer; Z86.711 Personal history of pulmonary embolism; Z86.718 Personal history of other venous thrombosis and embolism; Z79.01 Long term (current) use of anticoagulants
CPT/HCPCS: 73630; 99283

== ENCOUNTER 2022-02-09 15:37 | Emergency (ER) | payer MEDICARE, SELFPAY ==
[2022-02-09 15:38] VITALS: BP 177/134; PULSE 78; RESP 16; TEMP 36.5; O2SAT 97; BMI 23.8
[2022-02-09 15:50] VITALS: BP 211/47; PULSE 65; RESP 17; TEMP 36.1; O2SAT 97
[2022-02-09 15:52] VITALS: BP 211/47; PULSE 62; RESP 16; TEMP 36.1; O2SAT 96
--- NOTE | 2022-02-09 15:52 | EDS_ITS ---
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 over the proximal phalanx region of the right little toe Onset/Context/Timing Onset: Weeks Timing: Continuous Quality of Pain: - (There is no pain) Location: Previously described Current Severity: Mild Maximum Severity: Mild Worsened by: Poor compliance with diabetes Relieved by: Nothing Associated Symptoms Associated Symptoms: Negative for Parasthesia, Weakness or Loss of Funtion Narrative Narrative: Patient is a 72-year-old woman who is a poorly controlled diabetic who was sent to the emergency room because of eschar distal lateral aspect of the right foot in the proximity of the proximal phalanx of the little toe. She denies fever, chills night sweats. She was brought to the emergency room by Dr. Carlson's nurse. She has been taking cephalexin and Bactrim. She apparently refused to go to the wound center. When I recommended she needs to go to the wound center her states she would not. When asked why he responded they did not give her pain medicine after debriding her wound. There is been no drainage from the wound. She denies foot pain. Tetanus Immunization: 5-10 years Prior similar symptoms: Yes Recent Illness/Hospitalization: No PFSH PFSH Medical History Abscess of right elbow Acute pancreatitis Arthritis Back problem Chest pain Diabetes Elevated hemoglobin A1c Essential (primary) hypertension History of deep venous thrombosis (01/2020) Hormone deficiency Hyperlipidemia Mass of skin of right elbow Seasonal allergies Type 2 diabetes mellitus Home Medications metoprolol tartrate 50 mg tablet 50 mg PO DAILY BLOOD PRESSURE 03/06/19 [History Last Taken 02/17/21] insulin degludec 200 unit/mL (3 mL) subcutaneous pen (Tresiba FlexTouch U-200 in sulin) 80 unit subcut BID diabetes 01/21/21 [History Last Taken 02/17/21] lisinopril 10 mg tablet 10 mg PO DAILY BP 02/17/21 [History Last Taken 02/17/21] diclofenac sodium 1 % topical gel (Voltaren Arthritis Pain) 2 g topical TID PRN PRN pain #100 grams 04/02/21 [Rx Last Taken Unknown] rosuvastatin 20 mg tablet (Crestor) 20 mg PO DAILY #90 tabs 09/08/21 [Rx Last Taken Unknown] acetaminophen 325 mg tablet (Tylenol) 650 mg PO Q4H PRN PRN Pain 1-10 Or Fever #0 tabs 12/09/21 [Rx Last Taken Unknown] apixaban 5 mg tablet 5 mg PO BID #60 tabs 12/09/21 [Rx Last Taken Unknown] cephalexin 500 mg capsule 500 mg PO 12/21/21 [History Last Taken Unknown] levofloxacin 500 mg tablet 500 mg PO DAILY 14 days #14 tabs 12/30/21 [Rx Last Taken Unknown] cephalexin 500 mg capsule 500 mg PO Q6 7 days #28 caps 01/26/22 [Rx Last Taken Unknown] sulfamethoxazole 800 mg-trimethoprim 160 mg tablet (Bactrim DS) 1 tab PO BID 14 days #28 tabs 01/26/22 [Rx Last Taken Unknown] Allergy/AdvReac Type Severity Reaction Status Date / Time diphenhydramine Allergy Swelling Verified 02/09/22 15:53 [From Benvladl] Family History Unknown Breast cancer Colon cancer Myocardial infarction Hypertension Hyperlipidemia Father Heart disease Hypertension Mother Diabetes Hypertension Kidney disease Liver disease Other Arthritis Surgical History History of Social History household members: spouse housing: house history of recent travel: No Smoking Status: Never smoker alcohol intake: never substance use type: does not use what type of physical activity do you participate in: none ROS ROS ED Constitutional Constitutional ED: Denies chills, fever(s), subjective, sweats or weight loss Eyes Eyes: Denies blurry vision, change in vision or diplopia Cardiovascular Cardiovascular: Denies chest pain or palpitations Respiratory/Chest Respiratory/Chest: Denies cough, dyspnea or dyspnea on exertion Gastrointestinal Gastrointestinal: Denies abdominal pain, constipation, diarrhea, nausea or vomiting Genitourinary Genitourinary ED: Denies dysuria, hematuria or urinary frequency Musculoskeletal Musculoskeletal: Denies arthralgias, back pain, myalgias or neck pain Integumentary Reports rash; Denies abscess or Abrasions Hematologic/Lymphatic Hematologic/Lymphatic: Denies easy bleeding or easy bruising EXAM Physical Exam Const Vital Signs: 02/09/22 15:38 02/09/22 15:50 02/09/22 15:52 Temperature 97.7 F L 97.0 F L 97.0 F L Temperature Source Temporal Temporal Temporal Pulse Rate 78 65 62 Respiratory Rate 16 17 16 Blood Pressure 177/134 H 211/47 H 211/47 H Blood Pressure Mean 148 101 101 Pulse Ox 97 97 96 Oxygen Delivery Method Room Air Room Air Room Air Positive well nourished and well developed General Appearance ED: well developed and NAD HEENT Reports moist mucous membranes Eyes PERRL Eyes Narrative: Extract muscle intact. Sclera is in. Resp normal respiratory effort Cardio regular rate and regular rhythm Extremity Negative for normal to inspection Extremity Narrative: There is a 1 x 2.5 cm eschar noted, dry gangrene lateral aspect of the right foot. There is approximately 2 mm of erythema around the eschar area. There is no lymphangitis. There is no popliteal lymphadenopathy. There is no warmth or induration to the area. There may be slight edema in the area. There is no tenderness to palpation. Patient does have stigmata of peripheral arterial disease with thickened toenails and lack of hair on her toes. Neuro oriented x3, CN's II-XII intact bilaterally and moves all extremities Psych mental status grossly normal Skin Skin Narrative: Wound previously described Lesions: no lesions Rashes: no rashes MDM MDM MDM Narrative Medical decision making narrative: Patient has dry gangrene without evidence of infection. Will obtain blood work since patient is under the impression she is to be admitted. We will obtain the blood work to determine if she does meet criteria for admission or not. I did discuss case with Dr. Carlson. He did inform her he sent her down here because she refuses to go to the wound center. I informed her in my professional opinion she does not have osteomyelitis and one of the indications that he sent her to the emergency department. Patient needs debridement. Lab Data Attestation: I reviewed the patient's lab results. Lab results narrative: Patient work-up is unremarkable. Plan is outpatient follow-up at the wound center Labs: Laboratory Results - last 24 hr 02/09/22 02/09/22 16:03 16:03 WBC 10.9 RBC 4.59 Hgb 12.5 Hct 37.9 MCV 82.6 MCH 27.2 MCHC 33.0 RDW Std Deviation 48.5 H RDW Coeff of Melvina 16.1 H Plt Count 323 MPV 8.9 Immature Gran % (Auto) 0.300 Neut % (Auto) 49.3 Lymph % (Auto) 37.1 Grainger % (Auto) 10.0 Eos % (Auto) 2.7 Baso % (Auto) 0.6 Absolute Neuts (auto) 5.4 Absolute Lymphs (auto) 4.05 Nucleated RBC % 0 Sodium 135 L Potassium 4.2 Chloride 107 Carbon Dioxide 24.0 Anion Gap 4 L BUN 21 H Creatinine 0.73 Estim Creat Clear Calc 39.63 Est GFR (MDRD) Af Amer 101 Est GFR (MDRD) Non-Af 83 BUN/Creatinine Ratio 28.8 H Glucose 120 H Calcium 9.0 Discharge Plan Triage Chief Complaint: Wound ED Provider: Elías Flowers Dx/Rx/DC Orders Clinical Impression: Dry gangrene, Type 2 diabetes mellitus, PAD (peripheral artery disease) Prescriptions: No Action rosuvastatin [Crestor] 20 mg tablet 20 mg PO DAILY Qty: 90 3RF cephalexin 500 mg capsule 500 mg PO metoprolol tartrate 50 MG tablet 50 mg PO DAILY insulin degludec [Tresiba FlexTouch U-200] 200 unit/mL (3 mL) insulin pen 80 unit SUBCUT BID Hold Instructions: [place] [address]. Hold if glucose less than 130 mg/dl lisinopril 10 mg tablet 10 mg PO DAILY diclofenac sodium [Voltaren Arthritis Pain] 1 % gel 2 g topical TID PRN PRN (Reason: pain) Qty: 100 2RF acetaminophen [Tylenol] 325 mg Tablet 650 mg PO Q4H PRN PRN (Reason: Pain 1-10 Or Fever) Qty: 0 0RF Rx Instructions: For mild to moderate pain apixaban 5 mg Tablet 5 mg PO BID Qty: 60 0RF levofloxacin 500 mg tablet 500 mg PO DAILY 14 Days Qty: 14 0RF sulfamethoxazole-trimethoprim [Bactrim DS] 800-160 mg tablet 1 tab PO BID 14 Days Qty: 28 0RF cephalexin 500 mg capsule 500 mg PO Q6 7 Days Qty: 28 0RF Primary Care Provider: Alfonso Carlson Chi Referrals: Alfonso Carlson Chi, MD [Primary Care Provider] - Center,Wound [Non-Staff] - 3-5 Days Disposition Disposition: Home, Self Care
[2022-02-09 16:11] LABS: Absolute Lymphocyte Count 4.05 X10^3/uL (0.83-4.51); Absolute Neutrophil Count 5.4 X10^3/uL (2.0-7.7); Basophil# 0.07 X10^3/uL; Basophil% 0.6 % (0-1); Eosinophil# 0.29 X10^3/uL; Eosinophils% 2.7 % (0-5); Hematocrit 37.9 % (37-47); Hemoglobin 12.5 g/dL (12.0-15.0); Lymphocyte # 4.05 X10^3/ul (0.83-4.51); Lymphocyte % 37.1 % (19-41); Mean Corpuscular Hgb 27.2 pg (27.0-32.0); Mean Corpuscular Volume 82.6 fL (81-99); Mean Platelet Vol. 8.9 fl (6.2-12.0); Monocyte# 1.09 X10^3/uL; NRBC Flagged by Analyzer 0 % (0-5); Neutrophil # 5.38 X10^3/uL (2.7-7.7); Neutrophil % 49.3 % (47-70); Platelet Count 323 K/mm3 (150-450); RBC Distribution Width CV 16.1 % (11.6-14.6); RBC Distribution Width SD 48.5 fl (35.1-43.9); Red Blood Count 4.59 M/mm3 (4.2-5.4); White Blood Count 10.9 K/mm3 (4.4-11.0)
[2022-02-09 16:23] LABS: Anion Gap 4 (5-15); BUN 21 mg/dL (7-18); BUN/Creat Ratio 28.8 RATIO (10-20); Chloride 107 mmol/L (98-107); Creatinine, Serum 0.73 mg/dL (0.55-1.02); EST Glomerular Filtration Rate 83 mL/min (>60); Est Glom Filt Rate - Afr Amer 101 mL/min (>60); Estimated Creatinine Clearance 39.63 ml/min; Glucose 120 mg/dL (74-106); Potassium 4.2 mmol/L (3.5-5.1); Sodium Level 135 mmol/L (136-145)
[2022-02-09 17:26] VITALS: BP 178/77; PULSE 87; RESP 15; O2SAT 98
== END 2022-02-09 17:26 | disposition home or self-care (01) ==
PROVIDERS: Emergency Provider Emergency Medicine; PCP Family Medicine Geriatric Medicine; Visit Provider Emergency Medicine
DX: E11.51 Type 2 diabetes mellitus with diabetic peripheral angiopathy without gangrene (principal); I73.9 Peripheral vascular disease, unspecified; Z86.718 Personal history of other venous thrombosis and embolism
CPT/HCPCS: 80048; 85025; 99283; A4216

== ENCOUNTER → 2022-02-11 | Outpatient (CLI) | payer MEDICARE, SELFPAY ==
--- NOTE | 2022-02-11 13:55 | ART_ITS ---
Reason For Study: Rt Foot Ulcer Procedure A bilateral lower extremity continuous wave Doppler with analog waveform analysis,segmental pressures,and ankle brachial indexes without exercise. Left Segmental Pressures Left brachial= 157mmHg. Left thigh = >254mmHg. Left calf = >254mmHg. Left posterior tibial artery = >254mmHg. Left dorsalis pedis artery = >254mmHg. Left digit = 78 mmHg. The left posterior tibial artery waveforms are triphasic. The left dorsalis pedis waveforms are biphasic. Right Segmental Pressures Right brachial= 160mmHg. Right thigh = >254mmHg. Right calf = >254mmHg. Right posterior tibial artery = >254mmHg. Right dorsalis pedis artery = >254mmHg. Right digit = 44 mmHg. The right posterior tibial artery waveforms are monophasic. The right dorsalis pedis waveforms are monophasic. Indices The right ankle brachial index by the posterior tibial artery is N/C. The right ankle brachial index by the dorsalis pedis is N/C. The right digital-brachial index is 0.28. The left ankle brachial index by the posterior tibial artery is N/C. The left ankle brachial index by the dorsalis pedis is N/C. The left digital-brachial index is 0.49. VL/Lower Ext Art Exam w/o Exercis Interpretation Summary Monophasic Doppler waveforms are noted at ankle level on the right. Triphasic a nd biphasic Doppler waveforms are noted at ankle level on the left. Pulse-volume recordings appear diminished at calf, ankle, and digital levels on the right. Resting ankle-brachial indices could no t be determined on either side due to the non-compressibility of the vasculature at ankle level bi laterally. The right digital-brachial index is severely diminished. The left digital-brachial index is moderately diminished. There is evidence of arterial calcification at low thigh, calf, and ankle level s bilaterally. There is evidence of severe arterial occlusive disease at digital level on the right. There is evidence of moderate arterial occlusive disease at digital level on the left. Ordering Physician: Sam Cunningham Referring Physician: Alfonso Carlson Chi Performed By: Surendra Shaw RVT
== END | disposition home or self-care (01) ==
LOC: CVS 13:52
PROVIDERS: PCP Family Medicine Geriatric Medicine; Referring Provider Podiatrist; Visit Provider Podiatrist
DX: I73.89 Other specified peripheral vascular diseases (principal); L97.519 Non-pressure chronic ulcer of other part of right foot with unspecified severity
CPT/HCPCS: 93923

== ENCOUNTER 2022-02-16 09:51 | Outpatient (CLI) | payer MEDICARE, SELFPAY ==
[2022-02-16 16:06] LABS: Absolute Lymphocyte Count 3.21 X10^3/uL (0.83-4.51); Absolute Neutrophil Count 5.1 X10^3/uL (2.0-7.7); Basophil# 0.05 X10^3/uL; Basophil% 0.5 % (0-1); Eosinophil# 0.19 X10^3/uL; Hematocrit 38.6 % (37-47); Hemoglobin 12.3 g/dL (12.0-15.0); Lymphocyte # 3.21 X10^3/ul (0.83-4.51); Lymphocyte % 34.3 % (19-41); Mean Corp Hgb Conc 31.9 g/dL (32-36); Mean Corpuscular Hgb 26.6 pg (27.0-32.0); Mean Corpuscular Volume 83.5 fL (81-99); Mean Platelet Vol. 9.1 fl (6.2-12.0); Monocyte# 0.81 X10^3/uL; Monocyte% 8.6 % (0-10); NRBC Flagged by Analyzer 0 % (0-5); Neutrophil # 5.08 X10^3/uL (2.7-7.7); Neutrophil % 54.3 % (47-70); Platelet Count 374 K/mm3 (150-450); RBC Distribution Width CV 17.2 % (11.6-14.6); RBC Distribution Width SD 50.1 fl (35.1-43.9); Red Blood Count 4.62 M/mm3 (4.2-5.4); White Blood Count 9.4 K/mm3 (4.4-11.0)
[2022-02-16 16:24] LABS: Vitamin D,25 Hydroxy 13.1 ng/mL
[2022-02-16 16:53] LABS: ALB/GLOB Ratio 0.7 RATIO (0.9-2.4); AST(SGOT) 42 U/L (15-37); Alanine Aminotransfer ALT/SGPT 31 U/L (13-56); Albumin, Serum 3.2 g/dL (3.2-5.0); Alkaline Phosphatase 64 U/L (45-117); Anion Gap 11 (5-15); BUN 20 mg/dL (7-18); BUN/Creat Ratio 20.4 RATIO (10-20); Calcium,Total 9.2 mg/dL (8.5-10.1); Chloride 99 mmol/L (98-107); Cholesterol 230 mg/dL (200); Creatinine, Serum 0.98 mg/dL (0.55-1.02); EST Glomerular Filtration Rate 59 mL/min (>60); Est Glom Filt Rate - Afr Amer 72 mL/min (>60); Globulin 4.3 g/dL (2.2-4.2); Glucose 218 mg/dL (74-106); High Density Lipoprotein 33 mg/dL; Potassium 4.1 mmol/L (3.5-5.1); Protein, Total 7.5 g/dL (6.4-8.2); Sodium Level 133 mmol/L (136-145); Triglycerides 429 mg/dL
== END 2022-02-16 23:59 | disposition home or self-care (01) ==
LOC: POLAB3 09:53
PROVIDERS: PCP Family Medicine Geriatric Medicine; Visit Provider Family Medicine Geriatric Medicine
DX: E78.5 Hyperlipidemia, unspecified (principal); E11.621 Type 2 diabetes mellitus with foot ulcer; E11.51 Type 2 diabetes mellitus with diabetic peripheral angiopathy without gangrene; L97.512 Non-pressure chronic ulcer of other part of right foot with fat layer exposed; I73.9 Peripheral vascular disease, unspecified; Z79.4 Long term (current) use of insulin; E55.9 Vitamin D deficiency, unspecified; I10 Essential (primary) hypertension; Z86.711 Personal history of pulmonary embolism; Z86.718 Personal history of other venous thrombosis and embolism
CPT/HCPCS: 36415; 80053; 80061; 82306; 84443; 85025; 99213; G0463

== ENCOUNTER 2022-03-02 14:15 | Outpatient (RCR) | payer MEDICARE, SELFPAY ==
[2022-02-02 00:38] VITALS: BP 149/48; PULSE 111; RESP 18; TEMP 36.4
[2022-02-16 14:20] VITALS: BP 126/64; PULSE 104; RESP 16; TEMP 36; BMI 22.6
--- NOTE | 2022-02-16 15:25 | PN.PCM_ITS ---
History of Present Illness Date of Service: 02/16/22 Chief Complaint: Right lateral foot, proximal to 5th toe History of Wound: Patient is a 72 year old female who presents with a right lateral foot ulcer that occurred while off loading her foot from her right plantar ulcer that recently has healed. She has been wearing a Darco shoe to off load and and it has rubbed her foot causing an ulcer on her right lateral foot. She has had several falls over the past several months. She is a poor historian. She has a history of DM type 2, HTN, DVT, PE, on Eliquis, and knee pain. She had an arterial study on 02/11/22 which showed: Monophasic Doppler waveforms are noted at ankle level on the right. Triphasic and biphasic Doppler waveforms are noted at ankle level on the left. Pulse-volume recordings appear diminished at calf, ankle, and digital levels on the right. Resting ankle- brachial indices could not be determined on either side due to the non- compressibility of the vasculature at ankle level bilaterally. The right digital-brachial index is severely diminished. The left digital-brachial index is moderately diminished. There is evidence of arterial calcification at low thigh, calf, and ankle levels bilaterally. There is evidence of severe arterial occlusive disease at digital level on the right. There is evidence of moderate arterial occlusive disease at digital level on the left. She denies any fever, chills, nausea, vomiting. She states her appetite is good. She lives at home with her . Progress of Wound: Right plantar ulcer is healed. Right forearm skin tear healed. Right lateral foot ulcer is much larger with dry necrotic tissue covering the ulcer. They recently were on vacation at the [facility]. She states she did not do a lot of walking. Objective Data Objective Data Vital Signs: Vital Signs Temp Pulse Resp BP O2 Del Method 96.8 F L 104 H 16 126/64 H Room Air 02/16/22 14:20 02/16/22 14:20 02/16/22 14:20 02/16/22 14:20 02/16/22 14:20 Oxygen Delivery Method Room Air Weight: 124 lb Body Mass Index (BMI) 22.6 Charges/Coding Visit Charges Office Visits / Consults: 38318 OV L3 Est Physical Exam Const alert and oriented x3 General Appearance: cooperative HEENT normocephalic Head and Scalp: atraumatic Eyes General Eye: normal appearance of both eyes Lymph Lymphatic: no lymphedema noted Resp normal respiratory effort and clear to auscultation bilaterally Effort and Inspection: able to speak in complete sentences Cardio regular rate and regular rhythm GI non-tender Palpation: soft Extremity Extremity Narrative: +1 pitting edema right leg Skin Wound Narrative: Right medial plantar ulcer proximal to great toe is healed. Right lateral foot ulcer, proximal to 5th toe is dry, eschar tissue. No drainage. Painful to palpation. Psych affect normal Appearance: well kempt Speech: normal speech Debridement Note Debridement Note No debridement was completed: No debridement was completed today Post-Debridement Measurements and Additional Note: Post-Debridement Measurements/Treatment - Nurse 1 - General Ulcer Assessment Start: 02/16/22 14:20 Freq: Status: Active Protocol: KELSIE Activity Type Activity Date Activity User E-sign Co-sign Detail Recorded Client Recorded Date Recorded By Document 02/16/22 14:20 [facility] [id number] 02/16/22 14:33 [facility] 02/16/22 14:20 - Today's Visit Information Type of service Follow-up Visit (Physician/MANAGER PRIVACY ) Arrival Mode Ambulatory Transfer Assistance None Accompanied by Patient Identification Verified (Name & Yes ) Patient Requires Transmission-Based No Precautions Height and Weight Height 5 ft 2 in Weight 124 lb Weight in Pounds 124.0 lbs Body Mass Index (BMI) 22.6 BMI Classification Normal BSA - Annia 1.56 Vital Signs Temperature (97.8 F-99.1 F) 96.8 F L Temperature Source Temporal Pulse Rate (60-100) 104 H Pulse Location Monitor Respiratory Rate (12-18) 16 Respiratory rate source Observation Oxygen Delivery Method Room Air Blood Pressure (90/60-120/80) 126/64 H Blood Pressure Mean (mm Hg) 84 Source Monitor Position Sitting Blood Pressure Location Left Arm History Since Last Visit- (Skip if this is Patient's initial visit) Left Footwear Regular Shoe Right Footwear Surgical Shoe with pressure relief insole Pain Scale: 0-10 Numeric Is Patient Pain Free? No r foot wounds -Intensity 10 -Duration (hours) Chronic -Pain Behavior No Change in Behavior -Pain Aggravating Factors Sitting -Alleviating Factors/Interventions Turning/ Repositioning, Distraction, Will continue to monitor, Patient denies need for intervention, Emotional Support -Comments takes prn tramadol. took before coming - Nurse 1 - General Ulcer Measurement Start: 02/16/22 14:20 Freq: Status: Active Protocol: Activity Type Activity Date Activity User E-sign Co-sign Detail Recorded Client Recorded Date Recorded By Document 02/16/22 14:20 [facility] [id number] 02/16/22 14:33 [facility] 02/16/22 14:20 Wound Center Nurse 1 #5- R LATERAL FOOT -Combined with other wound No -Current Size (cm) - Length 3.8 -Current Size (cm) - Width 1.8 -Current Size (cm) - Depth 0.1 -Total Square Cm 6.84 -Date of Last Picture (Recall this 02/16/22 field) -Photo Taken Yes -Epithelialization None Present -Tunneling No -Undermining/Tunneling No -Circular Undermining No -Exudate Amt None Present -Wound Margin Distinct, Outline Attached -Granulation Amt None Present (0 %) -Slough/Fibrin Yes -Necrosis Amt Large (67-100%) -Necrotic Tissue Type Eschar -Texture (Damaris-wound Skin Appearance) Assessed, Scarring -Moisture (Damaris-wound Skin Appearance) Assessed -Color (Damaris-wound Skin Appearance) Assessed, Erythema -Temperature (Damaris-wound Skin No Abnormality Appearance) (Pt Warm) -Tenderness on Palpation (Damaris-wound Yes Skin Appearance) -Ulcer Cleansing Rinsed/ Irrigated with Saline -Foul Odor after Cleansing No -Anesthetic Used 5% Lidocaine Gel WC - Nurse 2 - General Ulcer CM Notes Start: 02/16/22 14:20 Freq: Status: Active Protocol: Activity Type Activity Date Activity User E-sign Co-sign Detail Recorded Client Recorded Date Recorded By Document 02/16/22 14:54 [id number] 02/16/22 14:55 02/16/22 14:54 Wound Center Nurse 2 -Correct Patient No -Correct Side, Site, Position No -Correct Procedure No -Procedure Performed No -Wound/Ulcer Outcome Not Healed Pain Scale: 0-10 Numeric Is Patient Pain Free? Yes - Nurse 3 - General Ulcer D/C NN Start: 02/16/22 14:20 Freq: Status: Active Protocol: Activity Type Activity Date Activity User E-sign Co-sign Detail Recorded Client Recorded Date Recorded By Document 02/16/22 15:11 DL [id number] 02/16/22 15:12 DL 02/16/22 15:11 Wound Care Nurse 3 #5- R LATERAL FOOT -Ulcer Cleansing Not Cleansed -Foul Odor after Cleansing No -Other Dressing betadine -Primary Dressing Covered/Secured with Dry Gauze & Roll Gauze, Secured with Tape Treatment Response Procedure Tolerated Well Pain Scale: 0-10 Numeric Is Patient Pain Free? Yes WC - Visit Discharge Discharge Condition Stable Ambulatory Status Ambulatory Transportation Private Auto Assessment/Plan Assessment/Plan (1) Ulcer of right foot due to type 2 diabetes mellitus: CODE(S): E11.621 - Type 2 diabetes mellitus with foot ulcer; L97.519 - Non-pressure chronic ulcer of other part of right foot with unspecified severity (2) Open wound of right foot: CODE(S): S91.301A - Unspecified open wound, right foot, initial encounter QUALIFIERS: Encounter type: initial encounter Qualified Code(s): S91.301A - Unspecified open wound, right foot, initial encounter (3) Type 2 diabetes mellitus treated with insulin: CODE(S): E11.9 - Type 2 diabetes mellitus without complications; Z79.4 - residential (current) use of insulin PLAN: Plan Patient was evaluated at the wound healing center today. Wound care - Betadine to the blackened scab, covered with dry gauze daily. Off load - She obtained her right Darco shoe to off load the right first metatarsal plantar surface. She was instructed to go back to the foot and ankle clinic to have them modify her shoe to prevent pressure on her right lateral foot, before she left for vacation. They decided not to do that. Her ulcer is much worse now. Removed the off loading portion of her shoe and cut out the edge of the right lateral shoe to prevent pressure. Stressed the importance of going to the foot and ankle clinic to have the off loading shoe made. She needs the pressure removed from the right lateral foot but also do not want pressure on the healed right plantar portion foot to re-ulcerate. Keep foot elevated when sitting. Completed Levaquin. She has arterial compromise and is scheduled to see Dr. Donato, vascular surgeon tomorrow. Follow up one week.
[2022-02-23 13:47] VITALS: BP 146/67; PULSE 92; RESP 18; TEMP 36.4; BMI 22.6
--- NOTE | 2022-02-23 14:33 | PN.PCM_ITS ---
History of Present Illness Date of Service: 02/23/22 Chief Complaint: Right lateral foot, proximal to 5th toe History of Wound: Patient is a 72 year old female who presents with a right lateral foot ulcer that occurred while off loading her foot from her right plantar ulcer that recently has healed. She has been wearing a Darco shoe to off load and and it has rubbed her foot causing an ulcer on her right lateral foot. She has had several falls over the past several months. She is a poor historian. She has a history of DM type 2, HTN, DVT, PE, on Eliquis, and knee pain. She had an arterial study on 02/11/22 which showed: Monophasic Doppler waveforms are noted at ankle level on the right. Triphasic and biphasic Doppler waveforms are noted at ankle level on the left. Pulse-volume recordings appear diminished at calf, ankle, and digital levels on the right. Resting ankle- brachial indices could not be determined on either side due to the non- compressibility of the vasculature at ankle level bilaterally. The right digital-brachial index is severely diminished. The left digital-brachial index is moderately diminished. There is evidence of arterial calcification at low thigh, calf, and ankle levels bilaterally. There is evidence of severe arterial occlusive disease at digital level on the right. There is evidence of moderate arterial occlusive disease at digital level on the left. She denies any fever, chills, nausea, vomiting. She states her appetite is good. She lives at home with her . Progress of Wound: Right plantar ulcer remains healed. Right lateral foot ulcer is stable with dry necrotic tissue covering the ulcer. There is no redness, drainage or odor. She had her shoe modified at the [facility] clinic to prevent pressure on the necrotic area. Objective Data Objective Data Vital Signs: Vital Signs Temp Pulse Resp BP O2 Del Method 97.5 F L 92 18 146/67 H Room Air 02/23/22 13:47 02/23/22 13:47 02/23/22 13:47 02/23/22 13:47 02/16/22 14:20 Oxygen Delivery Method Room Air Weight: 124 lb Body Mass Index (BMI) 22.6 Charges/Coding Wound Center CF Procedures 96XXX-98XXX: [id number] RMVL DEVITAL TIS 20 CM/< Multi Select Codes Wound Center CF Procedures [id number]: [id number] RMVL DEVITAL TIS 20 CM/< Debridement Note Debridement Note Wound debrided: lateral foot ulcer proximal to 5th toe Laterality: Right Wound Grade/Stage: unstagable Type of Debridement: Selective debridement Anesthesia Used: 5% Lidocaine Gel Depth: Down to and including healthy tissue Percentage of wound debrided: 50 Instrument Used: 3mm curette Tissue Removed: Non vital tissue and slough surrounding the ulcer. Severity: Fat Layer Exposed Amount of bleeding with debridement: None Patient tolerated procedure: Patient tolerated procedure well Post-Debridement Measurements and Additional Note: Post-Debridement Measurements/Treatment - Nurse 1 - General Ulcer Assessment Start: 02/16/22 14:20 Freq: Status: Active Protocol: [email or web address] Activity Type Activity Date Activity User E-sign Co-sign Detail Recorded Client Recorded Date Recorded By Document 02/16/22 14:20 [facility] [id number] 02/16/22 14:33 [facility] Document 02/23/22 13:47 DL [id number] 02/23/22 13:51 DL 02/16/22 02/23/22 14:20 13:47 - Today's Visit Information Type of service Follow-up Visit Follow-up Visit (Physician/MEDICAL REVIEW SPECIALIST (Physician/MEDICAL REVIEW SPECIALIST ) ) Arrival Mode Ambulatory Ambulatory Transfer Assistance None None Accompanied by Patient Identification Verified (Name & Yes Yes ) Patient Requires Transmission-Based No No Precautions Height and Weight Height 5 ft 2 in Weight 124 lb Weight in Pounds 124.0 lbs Body Mass Index (BMI) 22.6 22.6 BMI Classification Normal Normal BSA - Annia 1.56 Vital Signs Temperature (97.8 F-99.1 F) 96.8 F L 97.5 F L Temperature Source Temporal Temporal Pulse Rate (60-100) 104 H 92 Pulse Location Monitor Monitor Respiratory Rate (12-18) 16 18 Respiratory rate source Observation Observation Oxygen Delivery Method Room Air Blood Pressure (90/60-120/80) 126/64 H 146/67 H Blood Pressure Mean (mm Hg) 84 93 Source Monitor Monitor Position Sitting Blood Pressure Location Left Arm History Since Last Visit- (Skip if this is Patient's initial visit) Have you changed medications since your No last visit? Any new allergies or adverse reactions No Had a fall/change in ADL's that may No increase risk of falls Signs or symptoms of abuse and/or No neglect since last visit Have you been in the hospital since your No last visit? Has dressing in place as prescribed Yes Has compression in place as prescribed N/A Has offloadiing in place as prescribed Yes Experienced any changes in pain level or No management Left Footwear Regular Shoe Right Footwear Surgical Shoe with pressure relief insole Pain Scale: 0-10 Numeric Is Patient Pain Free? No Yes r foot wounds -Intensity 10 -Duration (hours) Chronic -Pain Behavior No Change in Behavior -Pain Aggravating Factors Sitting -Alleviating Factors/Interventions Turning/ Repositioning, Distraction, Will continue to monitor, Patient denies need for intervention, Emotional Support -Comments takes prn tramadol. took before coming WC - Nurse 1 - General Ulcer Measurement Start: 02/16/22 14:20 Freq: Status: Active Protocol: Activity Type Activity Date Activity User E-sign Co-sign Detail Recorded Client Recorded Date Recorded By Document 02/16/22 14:20 [facility] [id number] 02/16/22 14:33 [facility] Document 02/23/22 13:47 DL [id number] 02/23/22 13:51 DL 02/16/22 02/23/22 14:20 13:47 Wound Center Nurse 1 #5- R LATERAL FOOT -Combined with other wound No -Current Size (cm) - Length 3.8 5 -Current Size (cm) - Width 1.8 2.2 -Current Size (cm) - Depth 0.1 0.1 -Total Square Cm 6.84 11.0 -Date of Last Picture (Recall this 02/16/22 field) -Photo Taken Yes Yes -Epithelialization None Present -Tunneling No -Undermining/Tunneling No -Circular Undermining No -Exudate Amt None Present None Present -Exudate Type Serosanguineous -Wound Margin Distinct, Distinct, Outline Outline Attached Attached -Granulation Amt None Present (0 Small (1-33%) %) -Slough/Fibrin Yes -Necrosis Amt Large (67-100%) Large (67-100%) -Necrotic Tissue Type Eschar Eschar -Structure Exposed N/A -Texture (Damaris-wound Skin Appearance) Assessed, Rash Scarring -Moisture (Damaris-wound Skin Appearance) Assessed Dry/Scaly -Color (Damaris-wound Skin Appearance) Assessed, No Abnormality Erythema -Temperature (Damaris-wound Skin No Abnormality No Abnormality Appearance) (Pt Warm) (Pt Warm) -Tenderness on Palpation (Damaris-wound Yes Skin Appearance) -Ulcer Cleansing Rinsed/ Rinsed/ Irrigated with Irrigated with Saline Saline -Foul Odor after Cleansing No No -Anesthetic Used 5% Lidocaine 5% Lidocaine Gel Gel WC - Nurse 2 - General Ulcer CM Notes Start: 02/16/22 14:20 Freq: Status: Active Protocol: Activity Type Activity Date Activity User E-sign Co-sign Detail Recorded Client Recorded Date Recorded By Document 02/16/22 14:54 [id number] 02/16/22 14:55 Document 02/23/22 14:06 [id number] 02/23/22 14:14 02/16/22 02/23/22 14:54 14:06 Wound Center Nurse 2 #5- R LATERAL FOOT -Time 14:08 -Correct Patient No Yes -Correct Side, Site, Position No Yes -Correct Procedure No Yes -Procedure Performed No Yes -Type of Procedure Debridement -Clinical Debridement Epidermis / Dermis -Tissue Removed Epidermis, Dermis -Post Debridement (cm) - Length 5.0 -Post Debridement (cm) - Width 2.2 -Post Debridement (cm) - Depth 0.1 -Total Square (Post) (cm) 11.00 -Area of Debridement (cm) - Length 5.0 -Area of Debridement (cm) - Width 2.2 -Total Square (Area) (cm) 11.00 -Tunneling No -Undermining/Tunneling No -Circular Undermining No -Wound/Ulcer Outcome Not Healed Not Healed -Ulcer Cleansing Rinsed/ Irrigated with Saline -Foul Odor after Cleansing No -Bioengineered Tissue No -Bleeding Controlled with Pressure -Treatment Response Procedure Tolerated Well -Offloading Yes -Type of Offloading Surgical Shoe -Debridement - Open, 1st 20sq cm Yes Pain Scale: 0-10 Numeric Is Patient Pain Free? Yes Yes WC - Nurse 3 - General Ulcer D/C NN Start: 02/16/22 14:20 Freq: Status: Active Protocol: Activity Type Activity Date Activity User E-sign Co-sign Detail Recorded Client Recorded Date Recorded By Document 02/16/22 15:11 [id number] 02/16/22 15:12 DL Document 02/23/22 14:28 VT [id number] 02/23/22 14:29 AK 02/16/22 02/23/22 15:11 14:28 Wound Care Nurse 3 #5- R LATERAL FOOT -Ulcer Cleansing Not Cleansed Rinsed/ Irrigated with Saline -Foul Odor after Cleansing No No -Negative Pressure Wound Therapy N/A -Other Dressing betadine betadine -Primary Dressing Covered/Secured with Dry Gauze & Dry Gauze & Roll Gauze, Roll Gauze, Secured with Secured with Tape Tape Treatment Response Procedure Tolerated Well Pain Scale: 0-10 Numeric Is Patient Pain Free? Yes Yes WC - Visit Discharge Discharge Condition Stable Stable Ambulatory Status Ambulatory Ambulatory, Walker Transportation Private Auto Private Auto Accompanied by Medication Reconcilliation completed & Yes provided to patient/care provider Clinical Summary of Care Provided Yes Assessment/Plan Assessment/Plan (1) Ulcer of right foot due to type 2 diabetes mellitus: CODE(S): E11.621 - Type 2 diabetes mellitus with foot ulcer; L97.519 - Non-pressure chronic ulcer of other part of right foot with unspecified severity (2) Open wound of right foot: CODE(S): S91.301A - Unspecified open wound, right foot, initial encounter QUALIFIERS: Encounter type: initial encounter Qualified Code(s): S91.301A - Unspecified open wound, right foot, initial encounter (3) Type 2 diabetes mellitus treated with insulin: CODE(S): E11.9 - Type 2 diabetes mellitus without complications; Z79.4 - shelter (current) use of insulin PLAN: Plan Patient was evaluated at the wound healing center today. Wound care - Betadine to the blackened scab, covered with dry gauze daily. Off load - She had her Darco shoe modified to prevent pressure to the right lateral foot ulcer She went to the foot and ankle clinic to have them modify her shoe to prevent pressure on her right lateral foot. Keep foot elevated when sitting. Completed Levaquin. She has arterial compromise and is scheduled tomorrow for angiogram by Dr. Donato. Follow up one week.
[2022-03-02 14:13] VITALS: BP 119/80; PULSE 89; RESP 16; TEMP 35.5; BMI 22.6
--- NOTE | 2022-03-02 15:24 | PCM.WC.PN ---
History of Present Illness Date of Service: 03/02/22 Chief Complaint: Right lateral foot, proximal to 5th toe History of Wound: Patient is a 72 year old female who presents with a right lateral foot ulcer that occurred while off loading her foot from her right plantar ulcer that recently has healed. She has been wearing a Darco shoe to off load and and it has rubbed her foot causing an ulcer on her right lateral foot. She has had several falls over the past several months. She is a poor historian. She has a history of DM type 2, HTN, DVT, PE, on Eliquis, and knee pain. She had an arterial study on 02/11/22 which showed: Monophasic Doppler waveforms are noted at ankle level on the right. Triphasic and biphasic Doppler waveforms are noted at ankle level on the left. Pulse-volume recordings appear diminished at calf, ankle, and digital levels on the right. Resting ankle-brachial indices could not be determined on either side due to the non-compressibility of the vasculature at ankle level bilaterally. The right digital-brachial index is severely diminished. The left digital-brachial index is moderately diminished. There is evidence of arterial calcification at low thigh, calf, and ankle levels bilaterally. There is evidence of severe arterial occlusive disease at digital level on the right. There is evidence of moderate arterial occlusive disease at digital level on the left. She denies any fever, chills, nausea, vomiting. She states her appetite is good. She lives at home with her . Progress of Wound: Right plantar ulcer remains healed. Right lateral foot ulcer is stable with dry necrotic tissue covering the ulcer. There is no redness, drainage or odor. She has new pressure areas on her right lateral 4th toe and right medial 5th toe. They are purple with skin still intact. Does not carlos. Unstageable at this time. She had her shoe modified at the foot and ankle clinic to prevent pressure on the necrotic area. She had a CT scan that was ordered by Dr Donato earlier today. Objective Data Objective Data Vital Signs: Vital Signs Temp Pulse Resp BP O2 Del Method 95.9 F L 89 16 119/80 Room Air 03/02/22 14:13 03/02/22 14:13 03/02/22 14:13 03/02/22 14:13 03/02/22 14:13 Oxygen Delivery Method Room Air Weight: 124 lb Body Mass Index (BMI) 22.6 Charges/Coding Visit Charges Office Visits / Consults: 47066 OV L4 Est Physical Exam Const alert and oriented x3 General Appearance: cooperative HEENT normocephalic Head and Scalp: atraumatic Eyes General Eye: normal appearance of both eyes Lymph Lymphatic: no lymphedema noted Resp normal respiratory effort and clear to auscultation bilaterally Effort and Inspection: able to speak in complete sentences Cardio regular rate and regular rhythm GI non-tender Palpation: soft Extremity Extremity Narrative: Right pedal pulse palpable. Right toes have capillary refill <3 seconds. Right toes are cool to touch. Minimal edema on right foot. Skin Wound Narrative: Right medial plantar ulcer proximal to great toe remains healed. Right lateral foot ulcer is stable with dry necrotic tissue covering the ulcer.? There is no redness, drainage or odor. She has new pressure areas on her right lateral 4th toe and right medial 5th toe.? They are purple with skin still intact.? Does not carlos.? Unstageable at this time. Psych affect normal Appearance: well kempt Speech: normal speech Debridement Note Debridement Note No debridement was completed: No debridement was completed today Post-Debridement Measurements and Additional Note: Post-Debridement Measurements/Treatment - Nurse 1 - General Ulcer Assessment Start: 02/16/22 14:20 Freq: Status: Active Protocol: KELSIE Activity Type Activity Date Activity User E-sign Co-sign Detail Recorded Client Recorded Date Recorded By Document 02/16/22 14:20 [facility] [id number] 02/16/22 14:33 [facility] Document 02/23/22 13:47 DL [id number] 02/23/22 13:51 DL Document 03/02/22 14:13 [facility] [id number] 03/02/22 14:21 [facility] 02/16/22 02/23/22 03/02/22 14:20 13:47 14:13 - Today's Visit Information Type of service Follow-up Visit Follow-up Visit Follow-up Visit (Physician/HOSPITAL RECEIVING CLERK (Physician/HOSPITAL RECEIVING CLERK (Physician/HOSPITAL RECEIVING CLERK ) ) ) Arrival Mode Ambulatory Ambulatory Ambulatory Transfer Assistance None None None Accompanied by Patient Identification Verified (Name & Yes Yes Yes ) Patient Requires Transmission-Based No No No Precautions Height and Weight Height 5 ft 2 in Weight 124 lb Weight in Pounds 124.0 lbs Body Mass Index (BMI) 22.6 22.6 22.6 BMI Classification Normal Normal Normal BSA - Annia 1.56 Vital Signs Temperature (97.8 F-99.1 F) 96.8 F L 97.5 F L 95.9 F L Temperature Source Temporal Temporal Temporal Pulse Rate (60-100) 104 H 92 89 Pulse Location Monitor Monitor Monitor Respiratory Rate (12-18) 16 18 16 Respiratory rate source Observation Observation Observation Oxygen Delivery Method Room Air Room Air Blood Pressure (90/60-120/80) 126/64 H 146/67 H 119/80 Blood Pressure Mean (mm Hg) 84 93 93 Source Monitor Monitor Monitor Position Sitting Sitting Blood Pressure Location Left Arm Right Arm History Since Last Visit- (Skip if this is Patient's initial visit) Have you changed medications since your No No last visit? Any new allergies or adverse reactions No No Had a fall/change in ADL's that may No No increase risk of falls Signs or symptoms of abuse and/or No No neglect since last visit Have you been in the hospital since your No No last visit? Has dressing in place as prescribed Yes Yes Has compression in place as prescribed N/A N/A Has offloadiing in place as prescribed Yes N/A Experienced any changes in pain level or No No management Left Footwear Regular Shoe Regular Shoe Right Footwear Surgical Shoe Regular Shoe with pressure relief insole Pain Scale: 0-10 Numeric Is Patient Pain Free? No Yes Yes r foot wounds -Intensity 10 -Duration (hours) Chronic -Pain Behavior No Change in Behavior -Pain Aggravating Factors Sitting -Alleviating Factors/Interventions Turning/ Repositioning, Distraction, Will continue to monitor, Patient denies need for intervention, Emotional Support -Comments takes prn tramadol. took before coming WC - Nurse 1 - General Ulcer Measurement Start: 02/16/22 14:20 Freq: Status: Active Protocol: Activity Type Activity Date Activity User E-sign Co-sign Detail Recorded Client Recorded Date Recorded By Document 02/16/22 14:20 [facility] [id number] 02/16/22 14:33 [facility] Document 02/23/22 13:47 DL [id number] 02/23/22 13:51 DL Document 03/02/22 14:13 [facility] [id number] 03/02/22 14:21 BMF 02/16/22 02/23/22 03/02/22 14:20 13:47 14:13 Wound Center Nurse 1 #5- R INNER 5TH TOE -Combined with other wound No -Current Size (cm) - Length 1.9 -Current Size (cm) - Width 1 -Current Size (cm) - Depth 0.1 -Total Square Cm 1.9 -Date of Last Picture (Recall this 03/02/22 field) -Photo Taken Yes -Epithelialization None Present -Tunneling No -Undermining/Tunneling No -Circular Undermining No -Exudate Amt None Present -Wound Margin Distinct, Outline Attached -Granulation Amt None Present (0 %) -Slough/Fibrin Yes -Necrosis Amt Large (67-100%) -Necrotic Tissue Type Eschar -Texture (Damaris-wound Skin Appearance) Assessed, Scarring -Moisture (Damaris-wound Skin Appearance) Assessed -Color (Damaris-wound Skin Appearance) Assessed -Temperature (Damaris-wound Skin No Abnormality Appearance) (Pt Warm) -Tenderness on Palpation (Damaris-wound No Skin Appearance) -Ulcer Cleansing Rinsed/ Irrigated with Saline -Foul Odor after Cleansing No #6- R INNER 4TH TOE -Combined with other wound No -Current Size (cm) - Length 1.3 -Current Size (cm) - Width 1.1 -Current Size (cm) - Depth 0.1 -Total Square Cm 1.43 -Date of Last Picture (Recall this 03/02/22 field) -Photo Taken Yes -Epithelialization None Present -Tunneling No -Undermining/Tunneling No -Circular Undermining No -Exudate Amt None Present -Wound Margin Distinct, Outline Attached -Granulation Amt None Present (0 %) -Slough/Fibrin Yes -Necrosis Amt Large (67-100%) -Necrotic Tissue Type Eschar -Texture (Damaris-wound Skin Appearance) Assessed, Scarring -Moisture (Damaris-wound Skin Appearance) Assessed -Color (Damaris-wound Skin Appearance) No Abnormality -Temperature (Damaris-wound Skin No Abnormality Appearance) (Pt Warm) -Tenderness on Palpation (Damaris-wound No Skin Appearance) -Ulcer Cleansing Rinsed/ Irrigated with Saline -Foul Odor after Cleansing No #5- R LATERAL FOOT -Combined with other wound No No -Current Size (cm) - Length 3.8 5 5.4 -Current Size (cm) - Width 1.8 2.2 2.1 -Current Size (cm) - Depth 0.1 0.1 0.1 -Total Square Cm 6.84 11.0 11.34 -Date of Last Picture (Recall this 02/16/22 03/02/22 field) -Photo Taken Yes Yes Yes -Epithelialization None Present None Present -Tunneling No No -Undermining/Tunneling No No -Circular Undermining No No -Exudate Amt None Present None Present None Present -Exudate Type Serosanguineous -Wound Margin Distinct, Distinct, Distinct, Outline Outline Outline Attached Attached Attached -Granulation Amt None Present (0 Small (1-33%) None Present (0 %) %) -Slough/Fibrin Yes Yes -Necrosis Amt Large (67-100%) Large (67-100%) Large (67-100%) -Necrotic Tissue Type Eschar Eschar Eschar -Structure Exposed N/A -Texture (Damaris-wound Skin Appearance) Assessed, Rash Assessed, Scarring Scarring -Moisture (Damaris-wound Skin Appearance) Assessed Dry/Scaly Assessed -Color (Damaris-wound Skin Appearance) Assessed, No Abnormality Assessed, Erythema Hemosiderin Staining -Temperature (Damaris-wound Skin No Abnormality No Abnormality No Abnormality Appearance) (Pt Warm) (Pt Warm) (Pt Warm) -Tenderness on Palpation (Damaris-wound Yes No Skin Appearance) -Ulcer Cleansing Rinsed/ Rinsed/ Rinsed/ Irrigated with Irrigated with Irrigated with Saline Saline Saline -Foul Odor after Cleansing No No No -Anesthetic Used 5% Lidocaine 5% Lidocaine Gel Gel WC - Nurse 2 - General Ulcer CM Notes Start: 02/16/22 14:20 Freq: Status: Active Protocol: Activity Type Activity Date Activity User E-sign Co-sign Detail Recorded Client Recorded Date Recorded By Document 02/16/22 14:54 [id number] 02/16/22 14:55 Document 02/23/22 14:06 [id number] 02/23/22 14:14 Document 03/02/22 14:58 [id number] 03/02/22 14:59 02/16/22 02/23/22 03/02/22 14:54 14:06 14:58 Wound Center Nurse 2 #5- R INNER 5TH TOE -Correct Patient No -Correct Side, Site, Position No -Correct Procedure No -Procedure Performed No -Wound/Ulcer Outcome Not Healed #6- R INNER 4TH TOE -Correct Patient No -Correct Side, Site, Position No -Correct Procedure No -Procedure Performed No -Wound/Ulcer Outcome Not Healed #5- R LATERAL FOOT -Time 14:08 -Correct Patient No Yes No -Correct Side, Site, Position No Yes No -Correct Procedure No Yes No -Procedure Performed No Yes No -Type of Procedure Debridement -Clinical Debridement Epidermis / Dermis -Tissue Removed Epidermis, Dermis -Post Debridement (cm) - Length 5.0 -Post Debridement (cm) - Width 2.2 -Post Debridement (cm) - Depth 0.1 -Total Square (Post) (cm) 11.00 -Area of Debridement (cm) - Length 5.0 -Area of Debridement (cm) - Width 2.2 -Total Square (Area) (cm) 11.00 -Tunneling No -Undermining/Tunneling No -Circular Undermining No -Wound/Ulcer Outcome Not Healed Not Healed Not Healed -Ulcer Cleansing Rinsed/ Irrigated with Saline -Foul Odor after Cleansing No -Bioengineered Tissue No -Bleeding Controlled with Pressure -Treatment Response Procedure Tolerated Well -Offloading Yes -Type of Offloading Surgical Shoe -Debridement - Open, 1st 20sq cm Yes Pain Scale: 0-10 Numeric Is Patient Pain Free? Yes Yes Yes WC - Nurse 3 - General Ulcer D/C NN Start: 02/16/22 14:20 Freq: Status: Active Protocol: Activity Type Activity Date Activity User E-sign Co-sign Detail Recorded Client Recorded Date Recorded By Document 02/16/22 15:11 DL [id number] 02/16/22 15:12 DL Document 02/23/22 14:28 [place] [id number] 02/23/22 14:29 [place] Document 03/02/22 15:08 DL [id number] 03/02/22 15:10 DL 02/16/22 02/23/22 03/02/22 15:11 14:28 15:08 Wound Care Nurse 3 #5- R INNER 5TH TOE -Ulcer Cleansing Not Cleansed -Other Dressing betadine -Primary Dressing Covered/Secured with Dry Gauze & Roll Gauze, Secured with Tape #6- R INNER 4TH TOE -Ulcer Cleansing Not Cleansed -Other Dressing betadine -Primary Dressing Covered/Secured with Dry Gauze & Roll Gauze, Secured with Tape #5- R LATERAL FOOT -Ulcer Cleansing Not Cleansed Rinsed/ Not Cleansed Irrigated with Saline -Foul Odor after Cleansing No No -Negative Pressure Wound Therapy N/A -Other Dressing betadine betadine betadine -Primary Dressing Covered/Secured with Dry Gauze & Dry Gauze & Dry Gauze & Roll Gauze, Roll Gauze, Roll Gauze, Secured with Secured with Secured with Tape Tape Tape Treatment Response Procedure Procedure Tolerated Well Tolerated Well Pain Scale: 0-10 Numeric Is Patient Pain Free? Yes Yes Yes WC - Visit Discharge Discharge Condition Stable Stable Stable Ambulatory Status Ambulatory Ambulatory, Ambulatory Walker Transportation Private Auto Private Auto Private Auto Accompanied by Medication Reconcilliation completed & Yes provided to patient/care provider Clinical Summary of Care Provided Yes Assessment/Plan Assessment/Plan (1) Ulcer of right foot due to type 2 diabetes mellitus: CODE(S): E11.621 - Type 2 diabetes mellitus with foot ulcer; L97.519 - Non-pressure chronic ulcer of other part of right foot with unspecified severity (2) Pressure ulcer of toe of right foot, unstageable: CODE(S): L89.890 - Pressure ulcer of other site, unstageable (3) Type 2 diabetes mellitus treated with insulin: CODE(S): E11.9 - Type 2 diabetes mellitus without complications; Z79.4 - detention (current) use of insulin (4) Essential (primary) hypertension: CODE(S): I10 - Essential (primary) hypertension (5) Hyperlipidemia: CODE(S): E78.5 - Hyperlipidemia, unspecified PLAN: Plan Patient was evaluated at the wound healing center today. Wound care - Betadine to the blackened scab on right lateral foot, covered with dry gauze daily. To the right lateral 4th toe and right medial 5th toe, place Betadine on these two areas, to keep them dry, place a thin piece of gauze between her toes to help keep the area dry. Off load - She had her Darco shoe modified to prevent pressure to the right lateral foot ulcer. She went to the foot and ankle clinic to have them modify her shoe to prevent pressure on her right lateral foot. Stressed the importance of making sure that her shoe is not putting pressure on the side of her right foot and pressing her toes together. Discussed extensively how to place the gauze between her right 4th and 5th toes and making sure it is not too thick. Stressed to watch for changes in these toes and to notify us if there are changes in her them and in the the lateral foot ulcer. Keep foot elevated when sitting. Completed Levaquin. She has arterial compromise and is having testing done for Dr. Donato. Encourage her to eat low carbohydrate and high protein, low sodium diet to help with wound healing, controlling blood sugars and HTN. Follow up one week. Greater than 24 minutes spent with patient and her educating and discussing plan of care.
== END 2022-03-03 23:59 | disposition home or self-care (01) ==
LOC: WC 14:15
PROVIDERS: PCP Family Medicine Geriatric Medicine; Visit Provider Nurse Practitioner Family
DX: E11.621 Type 2 diabetes mellitus with foot ulcer (principal); L97.512 Non-pressure chronic ulcer of other part of right foot with fat layer exposed; Z79.4 Long term (current) use of insulin; E78.5 Hyperlipidemia, unspecified; I10 Essential (primary) hypertension; Z86.711 Personal history of pulmonary embolism; Z86.718 Personal history of other venous thrombosis and embolism
CPT/HCPCS: 97597; 99213; 99214; G0463

== ENCOUNTER → 2022-03-02 | Outpatient (CLI) | payer MEDICARE, SELFPAY ==
--- NOTE | 2022-03-02 12:54 | CT_ITS ---
STUDY: CTA OF THE ABDOMINAL AORTA AND BILATERAL LOWER EXTREMITIES REASON FOR EXAM: Female, 72 years old. PAD, nonhealing wound RADIATION DOSAGE (If Supplied By Facility): CTDIvol = ( 7.14 ) mGy, DLP = ( 1031.68 ) mGycm TECHNIQUE: Axial CT angiography multi-detector data acquisition was obtained from the lung bases to the toes following intravenous administration of IV 100mL Isovue-370. Axial images and MIP images were reconstructed from the axial data set. Post-processing of the angiographic images was performed, with multiplanar reformation and 3D reconstruction. Individualized dose optimization techniques were used for this CT. TECHNICAL QUALITY: Good COMPARISON: None. Descriptors of Narrowing: None (0%) Mild (< 50%) Moderate (50-70%) Severe (70-90%) Subtotal/Total Occlusion (90-100%) Non-Evaluable (technically non-diagnostic FINDINGS: Abdominal aorta: Mild bilateral peripheral calcified plaque but no aortic stenosis or abdominal aortic aneurysm. Celiac and superior mesenteric arteries: No demonstrated narrowing. Inferior mesenteric artery: No demonstrated narrowing. Right renal artery(arteries): No demonstrated narrowing. Left renal artery(arteries): No demonstrated narrowing. Right common iliac artery: There is mild diffuse narrowing. Right external iliac artery: No demonstrated narrowing. Right internal iliac artery: There is mild diffuse narrowing. Left common iliac artery: There is mild diffuse narrowing. Left external iliac artery: No demonstrated narrowing. Left internal iliac artery: There is mild diffuse narrowing. RIGHT LOWER EXTREMITY Right common femoral artery: No demonstrated narrowing. Right profundus femoris: No demonstrated narrowing. Right superficial femoral: Occluded proximally with reconstitution in the mid thigh. Right popliteal artery: No demonstrated narrowing. Right tibioperoneal trunk: No demonstrated narrowing. Right anterior tibial artery: No demonstrated narrowing. Right posterior tibial artery: No demonstrated narrowing. Right peroneal artery: No demonstrated narrowing. LEFT LOWER EXTREMITY Left common femoral artery: No demonstrated narrowing. Left profundus femoris: No demonstrated narrowing. Left superficial femoral: There is mild diffuse narrowing. Left popliteal artery: No demonstrated narrowing. Left tibioperoneal trunk: No demonstrated narrowing. Left anterior tibial artery: No demonstrated narrowing. Left posterior tibial artery: No demonstrated narrowing. Left peroneal artery: No demonstrated narrowing. CT/CTA Abd w/Runoff W/WO Contrast IMPRESSION: 1. Mild amount of peripheral calcified plaque in the abdominal aorta but no aortic stenosis or abdominal aortic aneurysm. 2. No chronic mesenteric ischemia or renal artery stenosis. 3. Mild disease of the iliac arteries. Patent common femoral arteries bilaterally. 4. Occluded proximal right superficial femoral artery with reconstitution in the mid thigh. Mild disease of the remainder of the right superficial femoral artery. Patent right popliteal artery with three-vessel runoff. 5. Mildly diseased left superficial femoral artery with a widely patent left popliteal artery and three-vessel runoff on the left. Electronically Signed: Jaydon Barahona MD at 15:52 EST ,
== END | disposition home or self-care (01) ==
LOC: CT 12:53
PROVIDERS: PCP Family Medicine Geriatric Medicine; Referring Provider Physician Assistant; Visit Provider Physician Assistant
DX: I73.9 Peripheral vascular disease, unspecified (principal); I70.0 Atherosclerosis of aorta
CPT/HCPCS: 75635; Q9967; A4216

== ENCOUNTER 2022-03-04 21:45 | Emergency (ER) | payer MEDICARE, SELFPAY ==
[2022-03-04 21:46] VITALS: BP 157/63; PULSE 87; RESP 16; TEMP 36.5; O2SAT 100; BMI 22.3
--- NOTE | 2022-03-04 22:38 | EDS_ITS ---
HPI History of Present Illness Chief Complaint: Flank Pain Narrative Narrative: 72-year-old female here with right flank pain. The patient states this occurred today associated with nausea but no vomiting. Notes pain is worse with food. The pain is nonradiating, constant, severe. denies changes to bowel or bladder habits. No vaginal bleeding or discharge. No frequency, dysuria or urgency. Denies any constipation. The patient denies chest pain or shortness of breath. Old chart reviewed: History of hypertension, type 2 diabetes, PE, DVT (on Eliquis), hyperlipidemia CT scan from February 2022 shows no evidence of [facility] Medical History Abscess of right elbow Acute pancreatitis Arthritis Back problem Chest pain Diabetes Elevated hemoglobin A1c Essential (primary) hypertension History of deep venous thrombosis (01/2020) Hormone deficiency Hyperlipidemia Mass of skin of right elbow Seasonal allergies Type 2 diabetes mellitus Home Medications metoprolol tartrate 50 mg tablet 50 mg PO DAILY BLOOD PRESSURE 03/06/19 [History Last Taken 02/17/21] insulin degludec 200 unit/mL (3 mL) subcutaneous pen (Tresiba FlexTouch U-200 insulin) 80 unit subcut BID diabetes 01/21/21 [History Last Taken 02/17/21] lisinopril 10 mg tablet 10 mg PO DAILY BP 02/17/21 [History Last Taken 02/17/21] diclofenac sodium 1 % topical gel (Voltaren Arthritis Pain) 2 g topical TID PRN PRN pain #100 grams 04/02/21 [Rx Last Taken Unknown] rosuvastatin 20 mg tablet (Crestor) 20 mg PO DAILY #90 tabs 09/08/21 [Rx Last Taken Unknown] acetaminophen 325 mg tablet (Tylenol) 650 mg PO Q4H PRN PRN Pain 1-10 Or Fever #0 tabs 12/09/21 [Rx Last Taken Unknown] apixaban 5 mg tablet 5 mg PO BID #60 tabs 12/09/21 [Rx Last Taken Unknown] tramadol 50 mg tablet 50 mg PO Q8H PRN Pain 02/16/22 [History Last Taken Unknown] baclofen 10 mg tablet 10 mg PO DAILY 03/04/22 [History Last Taken Unknown] naproxen 500 mg tablet 500 mg PO PRN PRN Pain 03/04/22 [History Last Taken Unknown] pantoprazole 40 mg tablet,delayed release 40 mg PO DAILY 03/04/22 [History Last Taken Unknown] Allergy/AdvReac Type Severity Reaction Status Date / Time diphenhydramine Allergy Swelling Verified 03/04/22 21:46 [From Benadryl] Family History Unknown Breast cancer Colon cancer Myocardial infarction Hypertension Hyperlipidemia Father Heart disease Hypertension Mother Diabetes Hypertension Kidney disease Liver disease Other Arthritis Surgical History History of Social History household members: spouse housing: house history of recent travel: No Smoking Status: Never smoker alcohol intake: never substance use type: does not use what type of physical activity do you participate in: none ROS ROS ED ROS Narrative Constitutional: Denies fever HEENT: Denies sore throat Neck: Denies neck pain Cardiovascular: Denies chest pain, syncope Respiratory: Denies shortness of breath GI: Endorses abdominal pain, endorses nausea but no vomiting : endorses right flank pain Musculoskeletal: Denies muscle or joint pain Neurologic: Denies numbness weakness or loss of sensation Skin denies rash EXAM Physical Exam Narrative Exam Narrative: Nursing triage notes reviewed, Vital signs reviewed Constitutional: please see mdm HENT: MMM Eyes: Pupils equal round and reactive to light, Extraocular muscles intact Neck: No stridor, no JVD, full neck ROM Lungs: Clear to auscultation, No wheezing or rales. No increased work of breathing, no conversational dyspnea, no accessory muscle use, no nasal flaring. No respiratory distress noted Heart: Regular rate and rhythm, No murmurs, No rubs and No gallops, 2+ distal pulses (radial, femoral, posterior tibial) in all extremities Abdomen: Soft, right upper quadrant TTP, positive Petersen sign, no rigidity, rebound or guarding, no obvious peritoneal signs, no palpable pulsatile abdominal masses, no auscultated abdominal bruit : No CVAT Extremities: No edema Neuro: No focal neurological deficits, cranial nerves II through XII intact, 5/5 strength in all extremities. Intact sensation to light touch in all extremities, 2+ reflexes bilateral patella dens. Normal gait. No ataxia. Skin: No rash or lesions noted Const Vital Signs: 03/04/22 21:46 Temperature 97.7 F L Temperature Source Temporal Pulse Rate 87 Respiratory Rate 16 Blood Pressure 157/63 H Blood Pressure Mean 94 Pulse Ox 100 Oxygen Delivery Method Room Air MDM MDM MDM Narrative Medical decision making narrative: 72-year-old female here with right flank pain. Exam with positive Petersen sign, positive CVAT. Concern for nephrolithiasis, cholecystitis or other intra- abdominal pathology obtained a broad lab and imaging work-up to further elucidate etiology patient complains. I obtained an ultrasound of the right upper quadrant as well as a CT scan abdomen pelvis. CT scan showed no evidence of acute surgical pathology. Ultrasound showed signs of acute cholecystitis with +sonographic petersen sign. No evidence of associated pancreatitis or severe biliary obstruction. Gave Zosyn and consulted general surgery. Spoke to Dr. Alvarenga (General Surgery) who did not think the patient required acute surgical intervention given lack of pericholecystic fluid, wall thickening, dil ated common bile duct, lack of white blood cell count or signs of obstructive hepatobiliary pathology. I had a shared decision-making discussion with the patient did offer the patient inpatient mission for serial abdominal exams, pain medication. The patient was alert and orient x3 no capacity make medical decisions and chose to remain in the hospital for pain control and possible surgical consultation. Discussed with inpatient physician (Dr. Ang) who accepted the patient's case. Lab Data Attestation: I reviewed the patient's lab results. Lab results narrative: CBC without leukocytosis, noted mild anemia, no thrombocytopenia. CBC with mild hyponatremia, no severe SUZE or anion gap LFTs without obstructive etiology Lipase is wnl indicating no pancreatic inflammation. Labs: Laboratory Results - last 24 hr 03/05/22 03/05/22 03/05/22 00:14 00:20 00:20 WBC 8.7 RBC 4.20 Hgb 10.9 L Hct 34.1 L MCV 81.2 MCH 26.0 L MCHC 32.0 RDW Std Deviation 47.2 H RDW Coeff of Melvina 16.0 H Plt Count 337 MPV 9.3 Immature Gran % (Auto) 0.500 Neut % (Auto) 79.3 H Lymph % (Auto) 19.4 [place] % (Auto) 0.7 Eos % (Auto) 0.0 Baso % (Auto) 0.1 Absolute Neuts (auto) 6.9 Absolute Lymphs (auto) 1.69 Nucleated RBC % 0 Sodium 133 L Potassium 4.6 Chloride 104 Carbon Dioxide 22.0 Anion Gap 7 BUN 26 H Creatinine 1.24 H Estim Creat Clear Calc 31.96 Est GFR (MDRD) Af Amer 55 L Est GFR (MDRD) Non-Af 45 L BUN/Creatinine Ratio 21.0 H Glucose 390 H Lactic Acid Calcium 9.2 Total Bilirubin 0.50 Direct Bilirubin 0.10 AST 27 ALT 18 Alkaline Phosphatase 75 Total Protein 7.5 Albumin 3.2 Globulin 4.3 H Lipase 231 Urine Color Urine Clarity Urine pH Ur Specific [place] Urine Protein Urine Glucose (UA) Urine Ketones Urine Occult Blood Urine Nitrite Urine Bilirubin Urine Urobilinogen Ur Leukocyte Esterase Urine RBC Urine WBC Ur Squamous Epith Cells Urine Bacteria Urine Mucus POC Glucose 389 H 03/05/22 03/05/22 00:24 02:00 WBC RBC Hgb Hct MCV MCH MCHC RDW Std Deviation RDW Coeff of Melvina Plt Count MPV Immature Gran % (Auto) Neut % (Auto) Lymph % (Auto) [place] % (Auto) Eos % (Auto) Baso % (Auto) Absolute Neuts (auto) Absolute Lymphs (auto) Nucleated RBC % Sodium Potassium Chloride Carbon Dioxide Anion Gap BUN Creatinine Estim Creat Clear Calc Est GFR (MDRD) Af Amer Est GFR (MDRD) Non-Af BUN/Creatinine Ratio Glucose Lactic Acid 1.2 Calcium Total Bilirubin Direct Bilirubin AST ALT Alkaline Phosphatase Total Protein Albumin Globulin Lipase Urine Color Yellow Urine Clarity Clear Urine pH 6.0 Ur Specific [place] 1.010 Urine Protein 30 H Urine Glucose (UA) 1000 H Urine Ketones 5 H Urine Occult Blood 10 H Urine Nitrite Negative Urine Bilirubin Negative Urine Urobilinogen Normal Ur Leukocyte Esterase Negative Urine RBC 0 SEEN Urine WBC 0 SEEN Ur Squamous Epith Cells 0-5 SEEN Urine Bacteria RARE Urine Mucus 0 SEEN POC Glucose Radiography Diagnostic Testing: Clinical Impression(s) from Imaging Studies Abdomen/Pelvis CT 03/04/22 23:18 IMPRESSION: 1. Minimal wall thickening with inflammatory changes at the distal gastric antrum/duodenal bulb suggesting acute process such as gastritis/minus or ulcer disease. 2. No urolithiasis or hydronephrosis. 3. Incidental 2 mm pulmonary nodules in the lung bases. Follow-up CT imaging recommended according to the following guidelines. *Fleischner Society Recommendations (Radiology 2017, 284:228-243.) (Follow-up and management of multiple nodules smaller than 8 mm detected incidentally at non-screening CT. Newly detected indeterminate nodule in persons 35 years of age or older.) Low risk patient: Minimal or absent history of smoking and of other known risk factors. < 6 mm: No followup needed 6-8mm: Initial Follow-up CT at 3-6 months, then consider CT at 18-24 months >8mm: CT at 3-6 months, then consider CT at 18-24 months High risk patient: History of smoking or of other known risk factors. < 6 mm: Optional CT at 12 months. 6-8mm: CT at 3-6 months, then CT at 18-24 months. >8mm: CT at 3-6 months, then CT at 18-24 months Electronically Signed: Isela Wagoner MD at 0:29 EST Reading Location ID and State: [id number] / [employer] Tel , Service support , Gallbladder Ultrasound 03/04/22 23:19 IMPRESSION: Positive sonographic Petersen''s sign may be consistent with acute cholecystitis. No gallstones or other evidence of acute cholecystitis. Electronically Signed: Isela Wagoner MD at 0:17 EST , Treatment and Re-Evaluation Narrative: Repeat abdominal exam ongoing right upper quadrant TTP no obvious peritoneal signs. Gave as needed pain medicine. Patient is appropriate for inpatient admission. Discharge Plan Triage Chief Complaint: Flank Pain ED Provider: Rebel Morgan Dx/Rx/DC Orders Clinical Impression: Abdominal pain, acute, right upper quadrant, Positive Petersen's Sign Prescriptions: No Action rosuvastatin [Crestor] 20 mg tablet 20 mg PO DAILY Qty: 90 3RF metoprolol tartrate 50 MG tablet 50 mg PO DAILY insulin degludec [Tresiba FlexTouch U-200] 200 unit/mL (3 mL) insulin pen 80 unit SUBCUT BID Hold Instructions: [place] [address]. Hold if glucose less than 130 mg/dl lisinopril 10 mg tablet 10 mg PO DAILY diclofenac sodium [Voltaren Arthritis Pain] 1 % gel 2 g topical TID PRN PRN (Reason: pain) Qty: 100 2RF acetaminophen [Tylenol] 325 mg Tablet 650 mg PO Q4H PRN PRN (Reason: Pain 1-10 Or Fever) Qty: 0 0RF Rx Instructions: For mild to moderate pain apixaban 5 mg Tablet 5 mg PO BID Qty: 60 0RF tramadol 50 mg Tablet 50 mg PO Q8H PRN (Reason: Pain) baclofen 10 mg tablet 10 mg PO DAILY Label Comments: TAKE 1 TABLET BY MOUTH TWICE DAILY NEEDED FOR BACK SPASM pantoprazole 40 mg Tablet,Delayed Release (Dr/Ec) 40 mg PO DAILY naproxen 500 mg tablet 500 mg PO PRN PRN (Reason: Pain) Primary Care Provider: Alfonso Carlson Chi Referrals: Alfonso Carlson Chi, MD [Primary Care Provider] - Disposition Disposition: Acute Care [facility]
--- NOTE | 2022-03-04 23:18 | CT_ITS ---
STUDY: CT ABDOMEN AND PELVIS WITHOUT CONTRAST REASON FOR EXAM: Female, 72 years old. right flank pain RADIATION DOSAGE (If Supplied By Facility): CTDIvol = ( 6.07 ) mGy, DLP = ( 315.57 ) mGycm TECHNIQUE: Transaxial images were obtained from the dome of the diaphragm to the symphysis pubis without oral contrast, and without intravenous contrast. Sagittal and coronal images were reconstructed. Individualized dose optimization techniques were used for this CT. COMPARISON: CTA abdomen and pelvis 03/02/2022 FINDINGS: LOWER CHEST: There is a 2 mm nodule in the left lower lobe and in the right lower lobe. Reticular opacities in both lung bases likely scarring. Marked coronary artery calcifications. LIVER: Grossly unremarkable. GALLBLADDER AND BILIARY TREE: Grossly unremarkable. PANCREAS: Grossly unremarkable. SPLEEN: Grossly unremarkable. ADRENAL GLANDS: Grossly unremarkable. KIDNEYS AND URETERS: No calculi demonstrated. No hydronephrosis. PERITONEUM: No free air. No free fluid. BOWEL: There is suggestion of slight wall thickening of the distal gastric antrum/duodenal bulb with minimal adjacent stranding. No bowel obstruction. APPENDIX: Visualized and unremarkable. No evidence of acute appendicitis. VESSELS: Abdominal aorta is normal caliber. Arterial calcifications. REPRODUCTIVE ORGANS: Grossly unremarkable URINARY BLADDER: Grossly unremarkable. ABDOMINAL WALL: Stranding subcutaneous in the anterior abdominal wall at the injection sites, and bulky calcifications in the gluteal regions unchanged. BONES: No acute abnormalities. CT/Abdomen/Pelvis without Cont IMPRESSION: 1. Minimal wall thickening with inflammatory changes at the distal gastric antrum/duodenal bulb suggesting acute process such as gastritis/minus or ulcer disease. 2. No urolithiasis or hydronephrosis. 3. Incidental 2 mm pulmonary nodules in the lung bases. Follow-up CT imaging recommended according to the following guidelines. *Fleischner Society Recommendations (Radiology 2017, 284:228-243.) (Follow-up and management of multiple nodules smaller than 8 mm detected incidentally at non-screening CT. Newly detected indeterminate nodule in persons 35 years of age or older.) Low risk patient: Minimal or absent history of smoking and of other known risk factors. < 6 mm: No followup needed 6-8mm: Initial Follow-up CT at 3-6 months, then consider CT at 18-24 months >8mm: CT at 3-6 months, then consider CT at 18-24 months High risk patient: History of smoking or of other known risk factors. < 6 mm: Optional CT at 12 months. 6-8mm: CT at 3-6 months, then CT at 18-24 months. >8mm: CT at 3-6 months, then CT at 18-24 months Electronically Signed: Isela Wagoner MD at 0:29 EST ,
--- NOTE | 2022-03-04 23:19 | US_ITS ---
STUDY: ABDOMINAL ULTRASOUND - RIGHT UPPER QUADRANT REASON FOR VISIT: Female, 72 years old Positive Petersen sign TECHNIQUE: Ultrasound evaluation of the right upper quadrant was performed with real-time and static weiner-scale imaging. TECHNICAL QUALITY: Adequate. COMPARISON: None. FINDINGS: LIVER: Length 14.1 cm. Unremarkable. GALLBLADDER Size: Distended. Stones: None. Wall thickness: Not thickened. 3 mm. Pericholecystic fluid: None. Sonographic Petersen sign: Positive. EXTRAHEPATIC BILE DUCTS: Common bile duct 3 mm not dilated. PANCREAS: Visualized portions unremarkable. The tail was not well-visualized. RIGHT KIDNEY: No hydronephrosis. ASCITES: None. US/Gallbladder IMPRESSION: Positive sonographic Petersen''s sign may be consistent with acute cholecystitis. No gallstones or other evidence of acute cholecystitis. Electronically Signed: Isela Wagoner MD at 0:17 EST ,
--- NOTE | 2022-03-04 23:40 | ED.RN ---
Med administration interrupted by ultrasound.
[2022-03-05] MEDS: Ondansetron 4 MG/2 ML Vial IV (00:25)
[2022-03-05] MEDS: Morphine 4 MG/ML Syringe IV (00:25)
[2022-03-05] MEDS: Ketorolac 15 MG/ML Vial IV (00:25)
[2022-03-05 00:30] LABS: Absolute Lymphocyte Count 1.69 X10^3/uL (0.83-4.51); Absolute Neutrophil Count 6.9 X10^3/uL (2.0-7.7); Basophil# 0.01 X10^3/uL; Basophil% 0.1 % (0-1); Hematocrit 34.1 % (37-47); Hemoglobin 10.9 g/dL (12.0-15.0); Lymphocyte # 1.69 X10^3/ul (0.83-4.51); Lymphocyte % 19.4 % (19-41); Mean Corpuscular Volume 81.2 fL (81-99); Mean Platelet Vol. 9.3 fl (6.2-12.0); Monocyte# 0.06 X10^3/uL; Monocyte% 0.7 % (0-10); NRBC Flagged by Analyzer 0 % (0-5); Neutrophil % 79.3 % (47-70); Platelet Count 337 K/mm3 (150-450); RBC Distribution Width SD 47.2 fl (35.1-43.9); White Blood Count 8.7 K/mm3 (4.4-11.0)
[2022-03-05 00:51] LABS: AST(SGOT) 27 U/L (15-37); Alanine Aminotransfer ALT/SGPT 18 U/L (13-56); Albumin, Serum 3.2 g/dL (3.2-5.0); Alkaline Phosphatase 75 U/L (45-117); Anion Gap 7 (5-15); BUN 26 mg/dL (7-18); Calcium,Total 9.2 mg/dL (8.5-10.1); Chloride 104 mmol/L (98-107); Creatinine, Serum 1.24 mg/dL (0.55-1.02); EST Glomerular Filtration Rate 45 mL/min (>60); Est Glom Filt Rate - Afr Amer 55 mL/min (>60); Estimated Creatinine Clearance 31.96 ml/min; Globulin 4.3 g/dL (2.2-4.2); Glucose 390 mg/dL (74-106); Lipase 231 U/L (73-393); Potassium 4.6 mmol/L (3.5-5.1); Protein, Total 7.5 g/dL (6.4-8.2); Sodium Level 133 mmol/L (136-145)
[2022-03-05 00:57] LABS: Lactic Acid 1.2 mmol/L (0.4-1.9)
[2022-03-05 01:16] LABS: Bedside Glucose 389 mg/dL (74-106)
[2022-03-05 02:18] LABS: Mucous, Urine 0 SEEN /hpf (<or=2+); Red Blood Cells-Urine 0 SEEN /hpf (0-5); White Blood Cells 0 SEEN /hpf (0-5)
[2022-03-05 02:20] LABS: Color, Urine Yellow (Yellow); Glucose, Dipstick 1000 mg/dl (Normal); Ketone-Dipstick 5 mg/dl (Negative); Leukocyte Esterase-Dipstick Negative /ul (Negative); Nitrite-Dipstick Negative (Negative); Occult Blood-Urine 10 /ul (Negative); Protein-Dipstick 30 mg/dl (Negative); Urine Bilirubin Dipstick Negative (Negative); Urine Clarity Clear (Clear); Urine Urobilinogen Normal (Normal)
[2022-03-05 02:26] LABS: Bacteria RARE /hpf (None Seen); Squamous Epithelial Cells - UA 0-5 SEEN /hpf (5-10)
[2022-03-05 03:37] VITALS: BP 128/53; PULSE 58; RESP 16; O2SAT 96
--- NOTE | 2022-03-05 03:41 | PCM.HP.STD ---
HPI - General HPI Narrative YENNY LUGO, is a 72 F who presents [facility] Medical History Abscess of right elbow Acute pancreatitis Arthritis Back problem Chest pain Diabetes Elevated hemoglobin A1c Essential (primary) hypertension History of deep venous thrombosis (01/2020) Hormone deficiency Hyperlipidemia Mass of skin of right elbow Seasonal allergies Type 2 diabetes mellitus Home Medications metoprolol tartrate 50 mg tablet 50 mg PO DAILY BLOOD PRESSURE 03/06/19 [History Last Taken 02/17/21] insulin degludec 200 unit/mL (3 mL) subcutaneous pen (Tresiba FlexTouch U-200 insulin) 80 unit subcut BID diabetes 01/21/21 [History Last Taken 02/17/21] lisinopril 10 mg tablet 10 mg PO DAILY BP 02/17/21 [History Last Taken 02/17/21] diclofenac sodium 1 % topical gel (Voltaren Arthritis Pain) 2 g topical TID PRN PRN pain #100 grams 04/02/21 [Rx Last Taken Unknown] rosuvastatin 20 mg tablet (Crestor) 20 mg PO DAILY #90 tabs 09/08/21 [Rx Last Taken Unknown] acetaminophen 325 mg tablet (Tylenol) 650 mg PO Q4H PRN PRN Pain 1-10 Or Fever #0 tabs 12/09/21 [Rx Last Taken Unknown] apixaban 5 mg tablet 5 mg PO BID #60 tabs 12/09/21 [Rx Last Taken Unknown] tramadol 50 mg tablet 50 mg PO Q8H PRN Pain 02/16/22 [History Last Taken Unknown] baclofen 10 mg tablet 10 mg PO DAILY 03/04/22 [History Last Taken Unknown] naproxen 500 mg tablet 500 mg PO PRN PRN Pain 03/04/22 [History Last Taken Unknown] pantoprazole 40 mg tablet,delayed release 40 mg PO DAILY 03/04/22 [History Last Taken Unknown] Allergy/AdvReac Type Severity Reaction Status Date / Time diphenhydramine Allergy Swelling Verified 03/04/22 21:46 [From Benadryl] Family History Unknown Breast cancer Colon cancer Myocardial infarction Hypertension Hyperlipidemia Father Heart disease Hypertension Mother Diabetes Hypertension Kidney disease Liver disease Other Arthritis Surgical History History of Social History household members: spouse housing: house history of recent travel: No Smoking Status: Never smoker alcohol intake: never substance use type: does not use what type of physical activity do you participate in: none ROS ROS Narrative Pertinent positives and pertinent negatives as noted in HPI. All other systems were reviewed and are negative Vital Signs Vital Signs Vital Signs: 03/04/22 21:46 03/05/22 03:37 Temperature 97.7 F L Temperature Source Temporal Pulse Rate 87 58 L Respiratory Rate 16 16 Blood Pressure 157/63 H 128/53 H Blood Pressure Mean 94 78 Pulse Ox 100 96 Oxygen Delivery Method Room Air Room Air Weight Weight: 55.338 kg Body Mass Index (BMI) 22.3 Physical Exam Narrative Physical exam: General: Well-nourished, well-developed. Head: Normocephalic, atraumatic, no tenderness Eyes: Vision is grossly intact. EOMI ENT, no trauma, moist mucous membranes, no rhinorrhea Neck: Nontender, full range of motion, no spinal tenderness, deformities, step-off CVS: Regular rate and rhythm. S1-S2 present. No murmur, gallop or rub. Respiratory : clear to auscultation bilaterally, chest wall nontender, no wheezing Abdomen: Soft, nontender, nondistended, normal bowel sounds, no masses : Deferred Back: Nontender, no CVA tenderness, no midline spinal tenderness, deformities, step-offs Extremities: Nontender full range of motion, no trauma Skin: Normal color, no trauma, abrasions Neuro: Alert, oriented, cranial nerves II through XII grossly intact. Psychiatry: Normal mood. Normal affect. Not depressed. Not anxious. Results Lab / Micro Data Result Diagrams: 03/05/22 00:20 03/05/22 00:20 Labs: Laboratory Results - last 24 hr 03/05/22 00:14: POC Glucose 389 H 03/05/22 00:20: WBC 8.7, RBC 4.20, Hgb 10.9 L, Hct 34.1 L, MCV 81.2, MCH 26.0 L, MCHC 32.0, RDW Std Deviation 47.2 H, RDW Coeff of Melvina 16.0 H, Plt Count 337, MPV 9.3, Immature Gran % (Auto) 0.500, Neut % (Auto) 79.3 H, Lymph % (Auto) 19.4, [place] % (Auto) 0.7, Eos % (Auto) 0.0, Baso % (Auto) 0.1, Absolute Neuts (auto) 6.9, Absolute Lymphs (auto) 1.69, Nucleated RBC % 0 03/05/22 00:20: Sodium 133 L, Potassium 4.6, Chloride 104, Carbon Dioxide 22.0, Anion Gap 7, BUN 26 H, Creatinine 1.24 H, Estim Creat Clear Calc 31.96, Est GFR (MDRD) Af Amer 55 L, Est GFR (MDRD) Non-Af 45 L, BUN/Creatinine Ratio 21.0 H, Glucose 390 H, Calcium 9.2, Total Bilirubin 0.50, Direct Bilirubin 0.10, AST 27, ALT 18, Alkaline Phosphatase 75, Total Protein 7.5, Albumin 3.2, Globulin 4.3 H, Lipase 231 03/05/22 00:24: Lactic Acid 1.2 03/05/22 02:00: Urine Color Yellow, Urine Clarity Clear, Urine pH 6.0, Ur Specific [place] 1.010, Urine Protein 30 H, Urine Glucose (UA) 1000 H, Urine Ketones 5 H, Urine Occult Blood 10 H, Urine Nitrite Negative, Urine Bilirubin Negative, Urine Urobilinogen Normal, Ur Leukocyte Esterase Negative, Urine RBC 0 SEEN, Urine WBC 0 SEEN, Ur Squamous Epith Cells 0-5 SEEN, Urine Bacteria RARE, Urine Mucus 0 SEEN Radiology Impression Abdomen/Pelvis CT 03/04/22 23:18 IMPRESSION: 1. Minimal wall thickening with inflammatory changes at the distal gastric antrum/duodenal bulb suggesting acute process such as gastritis/minus or ulcer disease. 2. No urolithiasis or hydronephrosis. 3. Incidental 2 mm pulmonary nodules in the lung bases. Follow-up CT imaging recommended according to the following guidelines. *Fleischner Society Recommendations (Radiology 2017, 284:228-243.) (Follow-up and management of multiple nodules smaller than 8 mm detected incidentally at non-screening CT. Newly detected indeterminate nodule in persons 35 years of age or older.) Low risk patient: Minimal or absent history of smoking and of other known risk factors. < 6 mm: No followup needed 6-8mm: Initial Follow-up CT at 3-6 months, then consider CT at 18-24 months >8mm: CT at 3-6 months, then consider CT at 18-24 months High risk patient: History of smoking or of other known risk factors. < 6 mm: Optional CT at 12 months. 6-8mm: CT at 3-6 months, then CT at 18-24 months. >8mm: CT at 3-6 months, then CT at 18-24 months Electronically Signed: Isela Wagoner MD at 0:29 EST Reading Location ID and State: [id number] / [employer] , Service support , Gallbladder Ultrasound 03/04/22 23:19 IMPRESSION: Positive sonographic Petersen''s sign may be consistent with acute cholecystitis. No gallstones or other evidence of acute cholecystitis. Electronically Signed: Isela Wagoner MD at 0:17 EST , Assessment & Plan Assessment/Plan (1) Abdominal pain, acute, right upper quadrant: (2) Creatinine elevation:
--- NOTE | 2022-03-05 04:23 | PCM.PN.BLA ---
Progress Note Patient seen. Patient will go home on a p.o. pain medicine. Discussed with Emergency Department doctor who will discharge patient.
--- NOTE | 2022-03-11 13:52 | CASEMGMT ---
INCIDENTAL FINDINGS F/U -Per [facility] report 03/04/22: CT/Abdomen/Pelvis without Cont IMPRESSION: 1.? Minimal wall thickening with inflammatory changes at the distal gastric antrum/duodenal bulb suggesting acute process such as gastritis/minus or ulcer disease. 2.? No urolithiasis or hydronephrosis. 3.? Incidental 2 mm pulmonary nodules in the lung bases.? Follow-up CT imaging recommended according to the following guidelines. *Fleischner Society Recommendations (Radiology 2017, 284:228-243.) (Follow-up and management of multiple nodules smaller than 8 mm detected incidentally at non-screening CT. Newly detected indeterminate nodule in persons 35 years of age or older.) Low risk patient: Minimal or absent history of smoking and of other known risk factors. < 6 mm: No followup needed 6-8mm: Initial Follow-up CT at 3-6 months, then consider CT at 18-24 months >8mm: CT at 3-6 months, then consider CT at 18-24 months ?High risk patient: History of smoking or of other known risk factors. < 6 mm: Optional CT at 12 months. 6-8mm: CT at 3-6 months, then CT at 18-24 months. >8mm: CT at 3-6 months, then CT at 18-24 months -Appt scheduled with Dr. Pete on 03/24/22.
== END 2022-03-05 05:01 | disposition home or self-care (01) ==
PROVIDERS: Emergency Provider Emergency Medicine; PCP Family Medicine Geriatric Medicine; Visit Provider Emergency Medicine
DX: R10.11 Right upper quadrant pain (principal); E11.9 Type 2 diabetes mellitus without complications; K81.0 Acute cholecystitis; E78.5 Hyperlipidemia, unspecified; I10 Essential (primary) hypertension; Z86.718 Personal history of other venous thrombosis and embolism; Z86.711 Personal history of pulmonary embolism; R11.0 Nausea
CPT/HCPCS: 74176; 76705; 80048; 80076; 81001; 82962; 83605; 83690; 85025; 96365; 96375; 99283; A4216; J2405

== ENCOUNTER 2022-03-14 18:51 | Emergency (ER) | payer MEDICARE, SELFPAY ==
[2022-03-14] VITALS (9 sets, daily range): BP systolic 131–179; BP diastolic 63–126; PULSE 64–82; RESP 14–21; TEMP 37.1; O2SAT 95–100; BMI 23.8
--- NOTE | 2022-03-14 19:05 | EKG12_ITS ---
Test Reason : CP Blood Pressure : / mmHG Vent. Rate : 077 BPM Atrial Rate : 077 BPM P-R Int : 128 ms QRS Dur : 070 ms QT Int : 372 ms P-R-T Axes : 028 -32 062 degrees QTc Int : 420 ms Normal sinus rhythm Left axis deviation Minimal voltage criteria for LVH, may be normal variant ( R in aVL ) Abnormal ECG Confirmed by ZION KLEIN, MAICOL ([id number]), newspaper or periodical editor CHECO VELASCO ([id number]) on 03/17/2022 11:03:57 AM Referred By: NAY Confirmed By:MAICOL DONOVAN MD
--- NOTE | 2022-03-14 19:08 | EDS_ITS ---
HPI <WAYNE Gomez - Last Filed: 03/14/22 20:22> History of Present Illness Chief Complaint: Chest Pain Narrative Narrative: 71-year-old female with PMH of HTN, HLD, DM2, DVT on Eliquis, pancreatitis presents with chest pain. At about 3 PM she was sitting and developed midsternal chest pain that is gradually worsened and feels sharp. There is no radiation. No shortness of breath, nausea vomiting, or diaphoresis. She states she has had chest pain before but cannot tell me details or if this feels the same. She has no abdominal or flank pain and normal bladder and bowel movements. She takes Eliquis for DVT and denies missing any doses. No recent fever or upper respiratory symptoms. PFSH <WAYNE Gomez - Last Filed: 03/14/22 20:22> [facility] Medical History Abscess of right elbow Acute pancreatitis Arthritis Back problem Chest pain Diabetes Elevated hemoglobin A1c Essential (primary) hypertension History of deep venous thrombosis (01/2020) Hormone deficiency Hyperlipidemia Mass of skin of right elbow Seasonal allergies Type 2 diabetes mellitus Home Medications metoprolol tartrate 50 mg tablet 50 mg PO DAILY BLOOD PRESSURE 03/06/19 [History Last Taken 02/17/21] insulin degludec 200 unit/mL (3 mL) subcutaneous pen (Tresiba FlexTouch U-200 insulin) 80 unit subcut BID diabetes 01/21/21 [History Last Taken 02/17/21] lisinopril 10 mg tablet 10 mg PO DAILY BP 02/17/21 [History Last Taken 02/17/21] diclofenac sodium 1 % topical gel (Voltaren Arthritis Pain) 2 g topical TID PRN PRN pain #100 grams 04/02/21 [Rx Last Taken Unknown] rosuvastatin 20 mg tablet (Crestor) 20 mg PO DAILY #90 tabs 09/08/21 [Rx Last Taken Unknown] acetaminophen 325 mg tablet (Tylenol) 650 mg PO Q4H PRN PRN Pain 1-10 Or Fever #0 tabs 12/09/21 [Rx Last Taken Unknown] apixaban 5 mg tablet 5 mg PO BID #60 tabs 12/09/21 [Rx Last Taken Unknown] tramadol 50 mg tablet 50 mg PO Q8H PRN Pain 11/15/22 [History Last Taken Unknown] baclofen 10 mg tablet 10 mg PO DAILY 03/04/22 [History Last Taken Unknown] naproxen 500 mg tablet 500 mg PO PRN PRN Pain 03/04/22 [History Last Taken Unknown] pantoprazole 40 mg tablet,delayed release 40 mg PO DAILY 03/04/22 [History Last Taken Unknown] acetaminophen 300 mg-codeine 15 mg tablet 1 tab PO Q6H PRN pain 7 days #28 tabs 03/05/22 [Rx Last Taken Unknown] Allergy/AdvReac Type Severity Reaction Status Date / Time diphenhydramine Allergy Swelling Verified 03/14/22 19:04 [From Benadryl] Family History Unknown Breast cancer Colon cancer Myocardial infarction Hypertension Hyperlipidemia Father Heart disease Hypertension Mother Diabetes Hypertension Kidney disease Liver disease Other Arthritis Surgical History History of Social History household members: spouse housing: house history of recent travel: No Smoking Status: Never smoker alcohol intake: never substance use type: does not use what type of physical activity do you participate in: none ROS <WAYNE Gomez - Last Filed: 03/14/22 20:22> ROS ED ROS Narrative Constitutional: Negative for fever, chills, malaise. Eyes: Negative for visual change. ENT: Negative for sore throat, ear pain, rhinorrhea. CVS: Positive for chest pain. Negative for palpitations, syncope. Respiratory: Negative for shortness of breath, cough, orthopnea. GI: Negative for abdominal pain, nausea, vomiting, diarrhea, constipation, melena, hematochezia. : Negative for dysuria, hematuria or frequency. Neuro: Negative for headache, motor/sensory dysfunction. Skin: Negative for rash, abscess, or wound. Musc: Negative for joint pain, swelling, trauma. Heme: Negative for easy bruising, bleeding, lymphadenopathy. EXAM <WAYNE Gomez - Last Filed: 03/14/22 20:22> Physical Exam Narrative Exam Narrative: CONST: Patient sitting in no acute distress. EYES: Normal inspection. ENT: Normal inspection, moist mucous membranes. NECK: Normal inspection. RESP: No respiratory distress, CTAB. CVS: Regular rate and rhythm, no murmur, no gallop. ABD: Soft and nontender, no guarding or rebound, nondistended, no hepatosplenomegaly. SKIN: Color normal, no rash, warm, dry, intact. EXTREMITIES: Normal appearance, no pedal edema. NEURO: Oriented x4. PSYCH: Normal affect. Const Vital Signs: 03/14/22 18:54 03/14/22 18:59 03/14/22 19:00 Temperature 98.7 F Temperature Source Temporal Pulse Rate 82 79 Respiratory Rate 18 18 Respiratory Effort Normal Non-Labored Blood Pressure 144/83 H 179/81 H Blood Pressure Mean 103 113 Pulse Ox 98 100 Oxygen Delivery Method Room Air Room Air 03/14/22 19:12 03/14/22 19:56 03/14/22 20:01 Temperature Temperature Source Pulse Rate 75 67 Respiratory Rate 17 14 Respiratory Effort Blood Pressure 167/63 H 173/67 H Blood Pressure Mean 97 102 Pulse Ox 99 97 98 Oxygen Delivery Method Room Air Room Air Room Air 03/14/22 21:00 03/14/22 22:10 03/14/22 23:03 Temperature Temperature Source Pulse Rate 64 68 72 Respiratory Rate 21 H 21 H 21 H Respiratory Effort Blood Pressure 152/126 H 145/67 H 131/107 H Blood Pressure Mean 134 93 115 Pulse Ox 97 95 96 Oxygen Delivery Method Room Air Room Air Room Air <Dr. Elías Flowers MD - Last Filed: 03/14/22 23:10> Physical Exam Const Vital Signs: 03/14/22 18:54 03/14/22 18:59 03/14/22 19:00 Temperature 98.7 F Temperature Source Temporal Pulse Rate 82 79 Respiratory Rate 18 18 Respiratory Effort Normal Non-Labored Blood Pressure 144/83 H 179/81 H Blood Pressure Mean 103 113 Pulse Ox 98 100 Oxygen Delivery Method Room Air Room Air 03/14/22 19:12 03/14/22 19:56 03/14/22 20:01 Temperature Temperature Source Pulse Rate 75 67 Respiratory Rate 17 14 Respiratory Effort Blood Pressure 167/63 H 173/67 H Blood Pressure Mean 97 102 Pulse Ox 99 97 98 Oxygen Delivery Method Room Air Room Air Room Air 03/14/22 21:00 03/14/22 22:10 03/14/22 23:03 Temperature Temperature Source Pulse Rate 64 68 72 Respiratory Rate 21 H 21 H 21 H Respiratory Effort Blood Pressure 152/126 H 145/67 H 131/107 H Blood Pressure Mean 134 93 115 Pulse Ox 97 95 96 Oxygen Delivery Method Room Air Room Air Room Air [facility] <WAYNE Gomez - Last Filed: 03/14/22 20:22> [facility] Narrative Medical decision making narrative: Patient patient has lower midsternal chest pain that is sharp and started at rest. No associated symptoms. She appears well and nontoxic with unremarkable vital signs. Heart is regular with no murmurs. Lungs are clear. Abdomen soft and nontender. There is no lower extremity edema or calf tenderness. Patient is compliant with Eliquis so I have very low concern for PE. She is also not short of breath. Cardiac work-up will be initiated. EKG is sinus rhythm with no ischemic changes and is unchanged from previous. CBC is within normal limits. BMP shows sodium 132 which appears not significantly changed. First troponin is 34, delta pending. CXR shows no acute process. If serial cardiac enzymes are negative I feel patient can be discharged home to follow-up with cardiology for an outpatient stress test. Her symptoms are very atypical for ACS but she does have risk factors. Patient has seen Dr. Valles in the past and had an echo from 12/08/2021 was normal with EF of 65%. Also she is compliant with Eliquis so I have low concern for PE. Lab Data Attestation: I reviewed the patient's lab results. Labs: Laboratory Results - last 24 hr 03/14/22 03/14/22 03/14/22 19:30 19:30 21:30 WBC 10.7 RBC 4.54 Hgb 12.2 Hct 37.1 MCV 81.7 MCH 26.9 L MCHC 32.9 RDW Std Deviation 47.2 H RDW Coeff of Melvina 15.8 H Plt Count 346 MPV 9.1 Immature Gran % (Auto) 0.200 Neut % (Auto) 62.4 Lymph % (Auto) 28.5 [place] % (Auto) 7.7 Eos % (Auto) 0.5 Baso % (Auto) 0.7 Absolute Neuts (auto) 6.7 Absolute Lymphs (auto) 3.06 Nucleated RBC % 0 Sodium 132 L Potassium 4.5 Chloride 103 Carbon Dioxide 24.0 Anion Gap 5 BUN 28 H Creatinine 0.98 Estim Creat Clear Calc 40.44 Est GFR (MDRD) Af Amer 71 Est GFR (MDRD) Non-Af 59 L BUN/Creatinine Ratio 28.5 H Glucose 363 H Calcium 9.3 Troponin I High Sens 34 40 Radiography Diagnostic Testing: Clinical Impression(s) from Imaging Studies Chest X-Ray 03/14/22 19:40 IMPRESSION: Poor inspiration with some bibasilar atelectasis. Electronically Signed: Jaydon Barahona MD at 20:08 EST , ED attending interpretation 1 view chest x-ray shows normal heart size, no acute infiltrate edema or effusion. EKG Initial EKG: Attestation: I personally reviewed and interpreted this EKG as follows: Interpretation: Sinus Rhythm and No Acute Injury Pattern Comments: Normal sinus rhythm at 77 bpm, left axis deviation, minimal voltage criteria for LVH may be normal variant ID interval 128 ms, QRS duration 70 ms, QTC 420 ms, no acute ischemia Prior EKG tracings: available for review Prior: Unchanged <Dr. Elías Flowers MD - Last Filed: 03/14/22 23:10> [facility] MDM Narrative Medical decision making narrative: Patient patient has lower midsternal chest pain that is sharp and started at rest. No associated symptoms. She appears well and nontoxic with unremarkable vital signs. Heart is regular with no murmurs. Lungs are clear. Abdomen soft and nontender. There is no lower extremity edema or calf tenderness. Patient is compliant with Eliquis so I have very low concern for PE. She is also not short of breath. Cardiac work-up will be initiated. EKG is sinus rhythm with no ischemic changes and is unchanged from previous. CBC is within normal limits. BMP shows sodium 132 which appears not significantly changed. First troponin is 34, delta pending. CXR shows no acute process. If serial cardiac enzymes are negative I feel patient can be discharged home to follow-up with cardiology for an outpatient stress test. Her symptoms are very atypical for ACS but she does have risk factors. Patient has seen Dr. Valles in the past and had an echo from 12/08/2021 was normal with EF of 65%. Also she is compliant with Eliquis so I have low concern for PE. I have personally performed a face to face assessment of the patient and have reviewed the HARJIT Note. I performed a substantive portion of the visit including all aspects of the following. My bullard findings include: History is remarkable for chest pain that is described as sharp and located in the subxiphoid area. Pain is not reproducible. Pain is not made worse or better by anything. There is no radiation. There is no associated symptoms. She had similar presentation when she saw Dr. Teja Valles. Outpatient stress test was ordered. She never went to her appointment. She did have an outpatient echo performed which revealed no acute abnormalities. She denies black or maroon-colored stool. She denies hematemesis. She denies history of hiatal hernia, reflux or peptic ulcer disease. Exam is is unremarkable. Vital signs were noted. HEENT exams unremarkable. Lungs are clear to auscultation. Discriminated bilaterally. Heart is regular. There is no murmur, gallop or rub. There is no reproducible chest pain. There is no pedal splenomegaly. Negative clinical Petersen sign. No tenderness in the epigastrium or left upper quadrant. There is no CVA tenderness noted. There is no dermatologic lesions noted. There is no evidence of trauma. There is no palp pulsatile mass or abdominal bruit appreciated. Pulses in the upper and lower extremity are symmetric. Medical Decision Making patient presents with atypical chest pain. Differential would be cardiac ischemia, noncardiac etiology, GI etiology, pulmonary etiology. Other additions or changes: [None] Lab Data Lab results narrative: CBC unremarkable. Basic metabolic panel reveals mild hyponatremia with mild prerenal azotemia. First troponin is normal and delta is 6. The second troponin was normal as well. This would rule out cardiac etiology. Patient was discharged to home. Labs: Laboratory Results - last 24 hr 03/14/22 03/14/22 03/14/22 19:30 19:30 21:30 WBC 10.7 RBC 4.54 Hgb 12.2 Hct 37.1 MCV 81.7 MCH 26.9 L MCHC 32.9 RDW Std Deviation 47.2 H RDW Coeff of Melvina 15.8 H Plt Count 346 MPV 9.1 Immature Gran % (Auto) 0.200 Neut % (Auto) 62.4 Lymph % (Auto) 28.5 [place] % (Auto) 7.7 Eos % (Auto) 0.5 Baso % (Auto) 0.7 Absolute Neuts (auto) 6.7 Absolute Lymphs (auto) 3.06 Nucleated RBC % 0 Sodium 132 L Potassium 4.5 Chloride 103 Carbon Dioxide 24.0 Anion Gap 5 BUN 28 H Creatinine 0.98 Estim Creat Clear Calc 40.44 Est GFR (MDRD) Af Amer 71 Est GFR (MDRD) Non-Af 59 L BUN/Creatinine Ratio 28.5 H Glucose 363 H Calcium 9.3 Troponin I High Sens 34 40 Radiography Chest X-Ray - ED: 1 View and Read by ED Physician (Limited inspiratory volume with atelectasis right and left lower lung. Cardiac silhouette and size unremarkable. Perihilar region unremarkable. Osseous structures are unremarkable.) Diagnostic Testing: Clinical Impression(s) from Imaging Studies Chest X-Ray 03/14/22 19:40 IMPRESSION: Poor inspiration with some bibasilar atelectasis. Electronically Signed: Jaydon Barahona MD at 20:08 EST , Discharge Plan Triage Chief Complaint: Chest Pain ED Midlevel Provider: Aleksandra Vides ED Provider: Elías Flowers Dx/Rx/DC Orders Clinical Impression: Chest pain Instructions: ED Chest Pain, Noncardiac Prescriptions: No Action rosuvastatin [Crestor] 20 mg tablet 20 mg PO DAILY Qty: 90 3RF metoprolol tartrate 50 MG tablet 50 mg PO DAILY insulin degludec [Tresiba FlexTouch U-200] 200 unit/mL (3 mL) insulin pen 80 unit SUBCUT BID Hold Instructions: [place] [address]. Hold if glucose less than 130 mg/dl lisinopril 10 mg tablet 10 mg PO DAILY diclofenac sodium [Voltaren Arthritis Pain] 1 % gel 2 g topical TID PRN PRN (Reason: pain) Qty: 100 2RF acetaminophen [Tylenol] 325 mg Tablet 650 mg PO Q4H PRN PRN (Reason: Pain 1-10 Or Fever) Qty: 0 0RF Rx Instructions: For mild to moderate pain apixaban 5 mg Tablet 5 mg PO BID Qty: 60 0RF tramadol 50 mg Tablet 50 mg PO Q8H PRN (Reason: Pain) baclofen 10 mg tablet 10 mg PO DAILY Label Comments: TAKE 1 TABLET BY MOUTH TWICE DAILY NEEDED FOR BACK SPASM pantoprazole 40 mg Tablet,Delayed Release (Dr/Ec) 40 mg PO DAILY naproxen 500 mg tablet 500 mg PO PRN PRN (Reason: Pain) acetaminophen-codeine 300-15 mg tablet 1 tab PO Q6H PRN (Reason: pain) 7 Days Qty: 28 0RF Primary Care Provider: Alfonso Carlson Chi Referrals: Alfonso Carlson Chi, MD [Primary Care Provider] - 3-5 Days Disposition Disposition: Home, Self Care
[2022-03-14] MEDS: Aspirin 81 MG TAB.CHEW 324 MG PO (19:15)
[2022-03-14] MEDS: Ondansetron 4 MG/2 ML Vial IV (19:33)
[2022-03-14 19:37] LABS: Absolute Lymphocyte Count 3.06 X10^3/uL (0.83-4.51); Absolute Neutrophil Count 6.7 X10^3/uL (2.0-7.7); Basophil# 0.07 X10^3/uL; Basophil% 0.7 % (0-1); Eosinophil# 0.05 X10^3/uL; Eosinophils% 0.5 % (0-5); Hematocrit 37.1 % (37-47); Hemoglobin 12.2 g/dL (12.0-15.0); Lymphocyte # 3.06 X10^3/ul (0.83-4.51); Lymphocyte % 28.5 % (19-41); Mean Corp Hgb Conc 32.9 g/dL (32-36); Mean Corpuscular Hgb 26.9 pg (27.0-32.0); Mean Corpuscular Volume 81.7 fL (81-99); Mean Platelet Vol. 9.1 fl (6.2-12.0); Monocyte# 0.83 X10^3/uL; Monocyte% 7.7 % (0-10); NRBC Flagged by Analyzer 0 % (0-5); Neutrophil # 6.71 X10^3/uL (2.7-7.7); Neutrophil % 62.4 % (47-70); Platelet Count 346 K/mm3 (150-450); RBC Distribution Width CV 15.8 % (11.6-14.6); RBC Distribution Width SD 47.2 fl (35.1-43.9); Red Blood Count 4.54 M/mm3 (4.2-5.4); White Blood Count 10.7 K/mm3 (4.4-11.0)
[2022-03-14] MEDS: Morphine 4 MG/ML Syringe IV (19:37)
--- NOTE | 2022-03-14 19:40 | RAD_ITS ---
STUDY: X-RAY CHEST REASON FOR EXAM: Female, 72 years old. chest pain TECHNIQUE: Single AP portable view of the chest. COMPARISON: 12/06/2021 FINDINGS: Poor inspiration with some bibasilar atelectasis. Elevated right hemidiaphragm which is unchanged. Normal size heart. Normal mediastinum and coco. Normal visualized pulmonary arteries. Normal visualized aortic arch and descending thoracic aorta. Normal visualized thoracic spine. Normal visualized ribs, clavicles, and shoulders. There is no demonstrated abnormality of the visualized soft tissue structures of the upper abdomen. RAD/Chest 1 View (Portable) IMPRESSION: Poor inspiration with some bibasilar atelectasis. Electronically Signed: Jaydon Barahona MD at 20:08 EST ,
[2022-03-14 19:54] LABS: Anion Gap 5 (5-15); BUN 28 mg/dL (7-18); BUN/Creat Ratio 28.5 RATIO (10-20); Calcium,Total 9.3 mg/dL (8.5-10.1); Chloride 103 mmol/L (98-107); Creatinine, Serum 0.98 mg/dL (0.55-1.02); EST Glomerular Filtration Rate 59 mL/min (>60); Est Glom Filt Rate - Afr Amer 71 mL/min (>60); Estimated Creatinine Clearance 40.44 ml/min; Glucose 363 mg/dL (74-106); Potassium 4.5 mmol/L (3.5-5.1); Sodium Level 132 mmol/L (136-145); Troponin-I HS (w/2H Reflex) 34 pg/mL (3.0-54.0)
[2022-03-14 21:33] LABS: Reflex Troponin-HS? (from REC) Y
[2022-03-14 22:33] LABS: Troponin-I HS 40 pg/mL (3.0-54.0)
== END 2022-03-14 23:23 | disposition home or self-care (01) ==
PROVIDERS: Physician Assistant; Emergency Provider Emergency Medicine; PCP Family Medicine Geriatric Medicine; Visit Provider Emergency Medicine
DX: R07.9 Chest pain, unspecified (principal); I82.409 Acute embolism and thrombosis of unspecified deep veins of unspecified lower extremity; E11.9 Type 2 diabetes mellitus without complications; I10 Essential (primary) hypertension; E78.5 Hyperlipidemia, unspecified
CPT/HCPCS: 71045; 80048; 84484; 85025; 93005; 96374; 96375; 99285; A4216; J2405

== ENCOUNTER 2022-03-20 16:02 | Emergency (ER) | payer MEDICARE, SELFPAY ==
[2022-03-20 16:03] VITALS: BP 127/60; PULSE 91; RESP 16; TEMP 36; O2SAT 99; BMI 23.8
--- NOTE | 2022-03-20 16:40 | EKG12_ITS ---
Test Reason : CP Blood Pressure : / mmHG Vent. Rate : 073 BPM Atrial Rate : 073 BPM P-R Int : 126 ms QRS Dur : 072 ms QT Int : 380 ms P-R-T Axes : 038 -25 061 degrees QTc Int : 418 ms Normal sinus rhythm Voltage criteria for left ventricular hypertrophy Abnormal ECG Confirmed by BETZY KLEIN, CATHRYN ([id number]), greeting card editor CHECO VELASCO ([id number]) on 03/22/2022 12:49:21 PM Referred By: Confirmed By:CATHRYN BO MD
[2022-03-20 16:56] LABS: Absolute Lymphocyte Count 2.78 X10^3/uL (0.83-4.51); Absolute Neutrophil Count 5.8 X10^3/uL (2.0-7.7); Basophil# 0.02 X10^3/uL; Basophil% 0.2 % (0-1); Eosinophil# 0.04 X10^3/uL; Eosinophils% 0.4 % (0-5); Hematocrit 38.4 % (37-47); Hemoglobin 12.3 g/dL (12.0-15.0); Lymphocyte # 2.78 X10^3/ul (0.83-4.51); Lymphocyte % 29.8 % (19-41); Mean Corpuscular Hgb 26.1 pg (27.0-32.0); Mean Corpuscular Volume 81.5 fL (81-99); Mean Platelet Vol. 9.1 fl (6.2-12.0); Monocyte% 7.5 % (0-10); NRBC Flagged by Analyzer 0 % (0-5); Neutrophil # 5.76 X10^3/uL (2.7-7.7); Neutrophil % 61.8 % (47-70); Platelet Count 326 K/mm3 (150-450); RBC Distribution Width SD 47.5 fl (35.1-43.9); Red Blood Count 4.71 M/mm3 (4.2-5.4); White Blood Count 9.3 K/mm3 (4.4-11.0)
[2022-03-20 17:02] VITALS: PULSE 63; RESP 16; O2SAT 97
[2022-03-20 17:14] LABS: Anion Gap 7 (5-15); BUN 34 mg/dL (7-18); BUN/Creat Ratio 35.3 RATIO (10-20); Chloride 106 mmol/L (98-107); Creatinine, Serum 0.96 mg/dL (0.55-1.02); EST Glomerular Filtration Rate 60 mL/min (>60); Est Glom Filt Rate - Afr Amer 73 mL/min (>60); Estimated Creatinine Clearance 41.28 ml/min; Glucose 335 mg/dL (74-106); Potassium 4.2 mmol/L (3.5-5.1); Sodium Level 134 mmol/L (136-145); Troponin-I HS (w/2H Reflex) 26 pg/mL (3.0-54.0)
[2022-03-20] MEDS: Morphine 4 MG/ML Syringe IV (17:24)
[2022-03-20] MEDS: Ondansetron 4 MG/2 ML Vial IV (17:25)
--- NOTE | 2022-03-20 17:30 | RAD_ITS ---
INDICATION: chest pain EXAMINATION/TECHNIQUE: X-RAY - XR Chest 1 View COMPARISON: 09/12/2021. FINDINGS: LINES/DEVICES: None. LUNGS: No consolidation, edema or effusion. No pneumothorax. MEDIASTINUM AND CARDIOVASCULAR STRUCTURES: Cardiac silhouette not enlarged. Central airways and mediastinal contour are unremarkable. BONES AND SOFT TISSUES: Unremarkable. RAD/Chest 1 View (Portable) IMPRESSION: No radiographic evidence of acute cardiopulmonary disease. Electronically Signed: Maria Luz Decker MD at 17:58 EST Reading Location ID and State: [id number] / Tel , Service support ,
[2022-03-20 18:00] VITALS: PULSE 66; RESP 13; O2SAT 96
[2022-03-20 18:54] LABS: Reflex Troponin-HS? (from REC) Y
[2022-03-20] MEDS: Ketorolac 15 MG/ML Vial IV (19:38)
[2022-03-20 19:42] VITALS: BP 148/63; PULSE 60; RESP 16; O2SAT 98
[2022-03-20 20:00] VITALS: PULSE 61; RESP 18; O2SAT 97
[2022-03-20 20:03] LABS: Troponin-I HS 26 pg/mL (3.0-54.0)
--- NOTE | 2022-03-20 20:45 | EDS_ITS ---
HPI History of Present Illness Chief Complaint: Chest Pain Informant: patient and family Narrative Narrative: 72-year-old female presenting with chest pain. Patient complains of midsternal chest pain. She states she has been having this intermittently for at least the past year. She is in pain management. She has been told that this is secondary to arthritis. She was seen in the ED last week for similar complaints. She complains of continuous midsternal chest pain that is similar to previous. Prior similar symptoms: Yes Recent Illness/Hospitalization: No PFSH PFSH Medical History Abscess of right elbow Acute pancreatitis Arthritis Back problem Chest pain Diabetes Elevated hemoglobin A1c Essential (primary) hypertension History of deep venous thrombosis (01/2020) Hormone deficiency Hyperlipidemia Mass of skin of right elbow Seasonal allergies Type 2 diabetes mellitus Home Medications metoprolol tartrate 50 mg tablet 50 mg PO DAILY BLOOD PRESSURE 03/06/19 [History Last Taken 02/17/21] insulin degludec 200 unit/mL (3 mL) subcutaneous pen (Tresiba FlexTouch U-200 insulin) 80 unit subcut BID diabetes 01/21/21 [History Last Taken 02/17/21] lisinopril 10 mg tablet 10 mg PO DAILY BP 02/17/21 [History Last Taken 02/17/21] diclofenac sodium 1 % topical gel (Voltaren Arthritis Pain) 2 g topical TID PRN PRN pain #100 grams 04/02/21 [Rx Last Taken Unknown] rosuvastatin 20 mg tablet (Crestor) 20 mg PO DAILY #90 tabs 09/08/21 [Rx Last Taken Unknown] acetaminophen 325 mg tablet (Tylenol) 650 mg PO Q4H PRN PRN Pain 1-10 Or Fever #0 tabs 12/09/21 [Rx Last Taken Unknown] apixaban 5 mg tablet 5 mg PO BID #60 tabs 12/09/21 [Rx Last Taken Unknown] tramadol 50 mg tablet 50 mg PO Q8H PRN Pain 02/16/22 [History Last Taken Unknown] baclofen 10 mg tablet 10 mg PO DAILY 03/04/22 [History Last Taken Unknown] naproxen 500 mg tablet 500 mg PO PRN PRN Pain 03/04/22 [History Last Taken Unknown] pantoprazole 40 mg tablet,delayed release 40 mg PO DAILY 03/04/22 [History Last Taken Unknown] acetaminophen 300 mg-codeine 15 mg tablet 1 tab PO Q6H PRN pain 7 days #28 tabs 03/05/22 [Rx Last Taken Unknown] hydrocodone-acetaminophen 5-325mg 5mg-325mg 1 tab PO Q6H PRN PRN Pain 1 day #4 TABLETS 03/14/22 [Rx Last Taken Unknown] doxycycline monohydrate 100 mg tablet 100 mg PO BID 14 days #28 tabs 03/16/22 [Rx Last Taken Unknown] pantoprazole 40 mg tablet,delayed release 40 mg PO DAILY #60 tabs 03/19/22 [Rx Last Taken Unknown] sucralfate 1 gram tablet (Carafate) 1 g PO QACHS #60 tabs 03/19/22 [Rx Last Taken Unknown] Allergy/AdvReac Type Severity Reaction Status Date / Time diphenhydramine Allergy Swelling Verified 03/20/22 16:04 [From [facility]] Family History Unknown Breast cancer Colon cancer Myocardial infarction Hypertension Hyperlipidemia Father Heart disease Hypertension Mother Diabetes Hypertension Kidney disease Liver disease Other Arthritis Surgical History History of Social History household members: spouse housing: house history of recent travel: No Smoking Status: Never smoker alcohol intake: never substance use type: does not use what type of physical activity do you participate in: none ROS ROS ED Constitutional Constitutional ED: Denies fever(s) Eyes Eyes: Denies change in vision ENT ENT ED: Denies rhinorrhea or sore throat Cardiovascular Cardiovascular: Reports chest pain; Denies palpitations Respiratory/Chest Respiratory/Chest: Denies cough or dyspnea Gastrointestinal Gastrointestinal: Denies abdominal pain, diarrhea, nausea or vomiting Genitourinary Genitourinary ED: Denies dysuria Musculoskeletal Musculoskeletal: Denies myalgias Integumentary Denies rash Neurologic Neurologic: Denies headache(s) Psychiatric Psychiatric: Denies suicidal thoughts EXAM Physical Exam Const Vital Signs: 03/20/22 16:03 03/20/22 17:02 03/20/22 17:02 Temperature 96.8 F L Temperature Source Temporal Pulse Rate 91 63 Respiratory Rate 16 16 Respiratory Effort Normal Non-Labored Respiratory Pattern Normal Blood Pressure 127/60 H Blood Pressure Mean 82 Pulse Ox 99 97 Oxygen Delivery Method Room Air Room Air 03/20/22 18:00 03/20/22 19:42 Temperature Temperature Source Pulse Rate 66 60 Respiratory Rate 13 16 Respiratory Effort Respiratory Pattern Blood Pressure 148/63 H Blood Pressure Mean 91 Pulse Ox 96 98 Oxygen Delivery Method Room Air Room Air Positive well nourished and well developed General Appearance ED: well developed HEENT Reports normocephalic and head/scalp atraumatic Eyes PERRL and EOMs intact bilaterally Neck supple General: Negative for tenderness Chest Wall inspection of chest normal Chest Narrative: Chest wall tender to palpation with no crepitus. Resp normal respiratory effort and clear to auscultation bilaterally Cardio regular rate and regular rhythm GI non-tender and non-distended Palpation: soft; Negative for guarding or rebound tenderness present no CVA tenderness Extremity normal to inspection Neuro oriented x3 Sensorium / Orientation: alert Psych mental status grossly normal MDM MDM MDM Narrative Medical decision making narrative: EKG is sinus rhythm rate of 73, similar to previous. Patient was given morphine, Zofran IV. Chest x-ray read by myself and radiology shows no acute process. CBC, chemistries are unremarkable. Troponin and delta troponin are negative. Patient continues to complain of reproducible chest wall pain. She was given Toradol with some improvement. She has lidocaine patches at home which she will try. She will follow-up with pain management. She and family are comfortable with discharge home. Advised to follow-up with pain management and her primary care physician. Advised return to ED for worsening complaints. Lab Data Attestation: I reviewed the patient's lab results. Labs: Laboratory Results - last 24 hr 03/20/22 03/20/22 03/20/22 16:50 16:50 18:35 WBC 9.3 RBC 4.71 Hgb 12.3 Hct 38.4 MCV 81.5 MCH 26.1 L MCHC 32.0 RDW Std Deviation 47.5 H RDW Coeff of Melvina 16.0 H Plt Count 326 MPV 9.1 Immature Gran % (Auto) 0.300 Neut % (Auto) 61.8 Lymph % (Auto) 29.8 [place] % (Auto) 7.5 Eos % (Auto) 0.4 Baso % (Auto) 0.2 Absolute Neuts (auto) 5.8 Absolute Lymphs (auto) 2.78 Nucleated RBC % 0 Sodium 134 L Potassium 4.2 Chloride 106 Carbon Dioxide 21.0 Anion Gap 7 BUN 34 H Creatinine 0.96 Estim Creat Clear Calc 41.28 Est GFR (MDRD) Af Amer 73 Est GFR (MDRD) Non-Af 60 BUN/Creatinine Ratio 35.3 H Glucose 335 H Calcium 9.0 Troponin I High Sens 26 26 Radiography Chest X-Ray - ED: 1 View, Read by ED Physician and Read by Radiologist Diagnostic Testing: Clinical Impression(s) from Imaging Studies Chest X-Ray 03/20/22 17:30 IMPRESSION: No radiographic evidence of acute cardiopulmonary disease. Electronically Signed: Maria Luz Decker MD at 17:58 EST Reading Location ID and State: [id number] / Tel , Service support , EKG Initial EKG: Attestation: I personally reviewed and interpreted this EKG as follows: Interpretation: Sinus Rhythm Discharge Plan Triage Chief Complaint: Chest Pain ED Provider: Lisa Box Dx/Rx/DC Orders Clinical Impression: Chest wall pain Instructions: ED Chest Wall Pain, Costochondritis Prescriptions: No Action rosuvastatin [Crestor] 20 mg tablet 20 mg PO DAILY Qty: 90 3RF pantoprazole 40 mg tablet,delayed release (DR/EC) 40 mg PO DAILY Qty: 60 2RF sucralfate [Carafate] 1 gram tablet 1 g PO QACHS Qty: 60 0RF metoprolol tartrate 50 MG tablet 50 mg PO DAILY insulin degludec [Tresiba FlexTouch U-200] 200 unit/mL (3 mL) insulin pen 80 unit SUBCUT BID Hold Instructions: [place] [address]. Hold if glucose less than 130 mg/dl lisinopril 10 mg tablet 10 mg PO DAILY diclofenac sodium [Voltaren Arthritis Pain] 1 % gel 2 g topical TID PRN PRN (Reason: pain) Qty: 100 2RF acetaminophen [Tylenol] 325 mg Tablet 650 mg PO Q4H PRN PRN (Reason: Pain 1-10 Or Fever) Qty: 0 0RF Rx Instructions: For mild to moderate pain apixaban 5 mg Tablet 5 mg PO BID Qty: 60 0RF tramadol 50 mg Tablet 50 mg PO Q8H PRN (Reason: Pain) doxycycline monohydrate 100 mg tablet 100 mg PO BID 14 Days Qty: 28 0RF baclofen 10 mg tablet 10 mg PO DAILY Label Comments: TAKE 1 TABLET BY MOUTH TWICE DAILY NEEDED FOR BACK SPASM pantoprazole 40 mg Tablet,Delayed Release (Dr/Ec) 40 mg PO DAILY naproxen 500 mg tablet 500 mg PO PRN PRN (Reason: Pain) acetaminophen-codeine 300-15 mg tablet 1 tab PO Q6H PRN (Reason: pain) 7 Days Qty: 28 0RF hydrocodone-acetaminophen [hydrocodone-acetaminophen] 5-325 mg tablet 1 tab PO Q6H PRN PRN (Reason: Pain) 1 Days Qty: 4 0RF Primary Care Provider: Alfonso Carlson Chi Referrals: Alfonso Carlson Chi, MD [Primary Care Provider] - Disposition Disposition: Home, Self Care
[2022-03-20 21:02] VITALS: BP 154/56; PULSE 67; RESP 18; O2SAT 97
== END 2022-03-20 21:05 | disposition home or self-care (01) ==
PROVIDERS: Emergency Provider Emergency Medicine; PCP Family Medicine Geriatric Medicine; Visit Provider Emergency Medicine
DX: R07.89 Other chest pain (principal); E11.9 Type 2 diabetes mellitus without complications; M19.90 Unspecified osteoarthritis, unspecified site; I10 Essential (primary) hypertension; E78.5 Hyperlipidemia, unspecified
CPT/HCPCS: 71045; 80048; 84484; 85025; 93005; 96374; 96375; 99284; A4216; J2405

== ENCOUNTER 2022-03-21 12:10 | Emergency (ER) | payer MEDICARE, SELFPAY ==
[2022-03-21 12:11] VITALS: BP 162/100; PULSE 73; RESP 14; TEMP 36.2; O2SAT 100; BMI 22.3
--- NOTE | 2022-03-21 12:25 | ED.VIS.CHEST ---
HPI <WAYNE Gomez - Last Filed: 03/21/22 14:17> History of Present Illness Chief Complaint: Chest Pain Narrative Narrative: 72-year-old female with PMH of HTN, HLD, DM2, DVT on Eliquis presents with chest pain. She gets intermittent chest pains have been more frequent over the last month. Some midsternal sharp pain with no radiation. There is no associated shortness of breath, nausea, vomiting or diaphoresis. She had 2 recent visits on 03/14 and 03/20 with negative cardiac work-ups. Her pain started again last night at 2 AM and has been continuous and unchanging since then. Its not exertional or pleuritic. It is not affected by eating or drinking. She reports compliance with her Eliquis. PFSH <WAYNE Gomez - Last Filed: 03/21/22 14:17> REPLACED BY [facility] Medical History Abscess of right elbow Acute pancreatitis Arthritis Back problem Chest pain Diabetes Elevated hemoglobin A1c Essential (primary) hypertension History of deep venous thrombosis (01/2020) Hormone deficiency Hyperlipidemia Mass of skin of right elbow Seasonal allergies Type 2 diabetes mellitus Home Medications metoprolol tartrate 50 mg tablet 50 mg PO DAILY BLOOD PRESSURE 03/06/19 [History Last Taken 02/17/21] insulin degludec 200 unit/mL (3 mL) subcutaneous pen (Tresiba FlexTouch U-200 insulin) 80 unit subcut BID diabetes 01/21/21 [History Last Taken 02/17/21] lisinopril 10 mg tablet 10 mg PO DAILY BP 02/17/21 [History Last Taken 02/17/21] diclofenac sodium 1 % topical gel (Voltaren Arthritis Pain) 2 g topical TID PRN PRN pain #100 grams 04/02/21 [Rx Last Taken Unknown] rosuvastatin 20 mg tablet (Crestor) 20 mg PO DAILY #90 tabs 09/08/21 [Rx Last Taken Unknown] acetaminophen 325 mg tablet (Tylenol) 650 mg PO Q4H PRN PRN Pain 1-10 Or Fever #0 tabs 12/09/21 [Rx Last Taken Unknown] apixaban 5 mg tablet 5 mg PO BID #60 tabs 12/09/21 [Rx Last Taken Unknown] tramadol 50 mg tablet 50 mg PO Q8H PRN Pain 02/16/22 [History Last Taken Unknown] baclofen 10 mg tablet 10 mg PO DAILY 03/04/22 [History Last Taken Unknown] naproxen 500 mg tablet 500 mg PO PRN PRN Pain 03/04/22 [History Last Taken Unknown] pantoprazole 40 mg tablet,delayed release 40 mg PO DAILY 03/04/22 [History Last Taken Unknown] acetaminophen 300 mg-codeine 15 mg tablet 1 tab PO Q6H PRN pain 7 days #28 tabs 03/05/22 [Rx Last Taken Unknown] hydrocodone-acetaminophen 5-325mg 5mg-325mg 1 tab PO Q6H PRN PRN Pain 1 day #4 TABLETS 03/14/22 [Rx Last Taken Unknown] doxycycline monohydrate 100 mg tablet 100 mg PO BID 14 days #28 tabs 03/16/22 [Rx Last Taken Unknown] pantoprazole 40 mg tablet,delayed release 40 mg PO DAILY #60 tabs 03/19/22 [Rx Last Taken Unknown] sucralfate 1 gram tablet (Carafate) 1 g PO QACHS #60 tabs 03/19/22 [Rx Last Taken Unknown] Allergy/AdvReac Type Severity Reaction Status Date / Time diphenhydramine Allergy Swelling Verified 03/20/22 16:04 [From Benadryl] Family History Unknown Breast cancer Colon cancer Myocardial infarction Hypertension Hyperlipidemia Father Heart disease Hypertension Mother Diabetes Hypertension Kidney disease Liver disease Other Arthritis Surgical History History of Social History household members: spouse housing: house history of recent travel: No Smoking Status: Never smoker alcohol intake: never substance use type: does not use what type of physical activity do you participate in: none ROS <WAYNE Gomez - Last Filed: 03/21/22 14:17> ROS ED ROS Narrative Constitutional: Negative for fever, chills, malaise. Eyes: Negative for visual change. ENT: Negative for sore throat, ear pain, rhinorrhea. CVS: Positive for chest pain. Negative for palpitations, syncope. Respiratory: Negative for shortness of breath, cough, orthopnea. GI: Negative for abdominal pain, nausea, vomiting, diarrhea, constipation, melena, hematochezia. : Negative for dysuria, hematuria or frequency. Neuro: Negative for headache, motor/sensory dysfunction. Skin: Negative for rash, abscess, or wound. Musc: Negative for joint pain, swelling, trauma. Heme: Negative for easy bruising, bleeding, lymphadenopathy. EXAM <WAYNE Gomez Last Filed: 03/21/22 14:17> Physical Exam Narrative Exam Narrative: CONST: Patient sitting in no acute distress. EYES: Normal inspection. ENT: Normal inspection, moist mucous membranes. NECK: Normal inspection. RESP: No respiratory distress, CTAB. Reproducible midsternal chest wall tenderness. CVS: Regular rate and rhythm, no murmur, no gallop. ABD: Soft and nontender, no guarding or rebound, nondistended, no hepatosplenomegaly. SKIN: Color normal, no rash, warm, dry, intact. EXTREMITIES: Normal appearance, no pedal edema. NEURO: Oriented x4. PSYCH: Normal affect. Const Vital Signs: 03/21/22 12:11 03/21/22 12:14 03/21/22 12:44 Temperature 97.1 F L Temperature Source Temporal Pulse Rate 73 Respiratory Rate 14 Respiratory Effort Normal Non-Labored Blood Pressure 162/100 H Blood Pressure Mean 120 Pulse Ox 100 Oxygen Delivery Method Room Air Room Air <Dr. Shayne Camargo, - Last Filed: 03/21/22 14:15> Physical Exam Const Vital Signs: 03/21/22 12:11 03/21/22 12:14 03/21/22 12:44 Temperature 97.1 F L Temperature Source Temporal Pulse Rate 73 Respiratory Rate 14 Respiratory Effort Normal Non-Labored Blood Pressure 162/100 H Blood Pressure Mean 120 Pulse Ox 100 Oxygen Delivery Method Room Air Room Air <WAYNE Gomez Last Filed: 03/21/22 14:17> Heart Score History: Slightly/Non-Suspicious ECG: Normal Age: >/= 65 years Risk Factors: >/= 3 Risk Factors or History of CAD Troponin: </= Normal Limit Score: 4 <Dr. Shayne Camargo DO - Last Filed: 03/21/22 14:15> Heart Score Score: 4 MDM <WAYNE Gomez - Last Filed: 03/21/22 14:17> [facility] Narrative Medical decision making narrative: Patient presents with ongoing sharp midsternal chest pain continuous for over 10 hours. She has had similar episodes over the last few months. She appears well and nontoxic. She has chronic hypertension and is at 162/100 with otherwise normal vital signs. On exam she has reproducible chest wall pain with otherwise benign exam. EKG is sinus rhythm with no acute injury pattern is unchanged from previous. Troponin is 21 which is lower than previous visits I do not feel that she needs serial enzymes symptoms have been going on for many hours. It does not sound cardiac in nature. I do not suspect PE as she has compliant with Eliquis and has no shortness of breath or pleuritic component. Patient needs to follow-up with cardiology to have an outpatient stress test and at this time I would manage her symptoms with Tylenol. She was discharged in stable condition. Lab Data Attestation: I reviewed the patient's lab results. Labs: Laboratory Results - last 24 hr 03/21/22 03/21/22 12:48 12:48 WBC 10.4 RBC 4.63 Hgb 12.3 Hct 37.3 MCV 80.6 L MCH 26.6 L MCHC 33.0 RDW Std Deviation 45.8 H RDW Coeff of Melvina 15.9 H Plt Count 334 MPV 9.3 Immature Gran % (Auto) 0.300 Neut % (Auto) 58.3 Lymph % (Auto) 33.3 [place] % (Auto) 7.3 Eos % (Auto) 0.4 Baso % (Auto) 0.4 Absolute Neuts (auto) 6.1 Absolute Lymphs (auto) 3.47 Nucleated RBC % 0 Sodium 134 L Potassium 4.5 Chloride 105 Carbon Dioxide 23.0 Anion Gap 6 BUN 39 H Creatinine 1.12 H Estim Creat Clear Calc 35.38 Est GFR (MDRD) Af Amer 61 Est GFR (MDRD) Non-Af 51 L BUN/Creatinine Ratio 34.8 H Glucose 269 H Calcium 9.3 Troponin I High Sens 21 Radiography Chest X-Ray - ED: 1 View, Read by ED Physician and Unchanged Diagnostic Testing: Clinical Impression(s) from Imaging Studies Chest X-Ray 03/21/22 12:26 IMPRESSION: No acute cardiopulmonary process identified. Electronically Signed: Kristin Torres MD at 13:11 EST , ED attending interpretation of 1 view chest shows normal heart size, no acute infiltrate, edema, or effusion. EKG Initial EKG: Attestation: I personally reviewed and interpreted this EKG as follows: Interpretation: Sinus Rhythm Comments: Sinus rhythm at 76 bpm, short NC at 102 ms, QRS duration 58 ms, QTC 402 ms, no acute injury pattern Prior EKG tracings: available for review Prior: Unchanged <Dr. Shayne Camargo, DO - Last Filed: 03/21/22 14:15> [facility] Lab Data Labs: Laboratory Results - last 24 hr 03/21/22 03/21/22 12:48 12:48 WBC 10.4 RBC 4.63 Hgb 12.3 Hct 37.3 MCV 80.6 L MCH 26.6 L MCHC 33.0 RDW Std Deviation 45.8 H RDW Coeff of Melvina 15.9 H Plt Count 334 MPV 9.3 Immature Gran % (Auto) 0.300 Neut % (Auto) 58.3 Lymph % (Auto) 33.3 [place] % (Auto) 7.3 Eos % (Auto) 0.4 Baso % (Auto) 0.4 Absolute Neuts (auto) 6.1 Absolute Lymphs (auto) 3.47 Nucleated RBC % 0 Sodium 134 L Potassium 4.5 Chloride 105 Carbon Dioxide 23.0 Anion Gap 6 BUN 39 H Creatinine 1.12 H Estim Creat Clear Calc 35.38 Est GFR (MDRD) Af Amer 61 Est GFR (MDRD) Non-Af 51 L BUN/Creatinine Ratio 34.8 H Glucose 269 H Calcium 9.3 Troponin I High Sens 21 Radiography Diagnostic Testing: Clinical Impression(s) from Imaging Studies Chest X-Ray 03/21/22 12:26 IMPRESSION: No acute cardiopulmonary process identified. Electronically Signed: Kristin Torres MD at 13:11 EST , Treatment and Re-Evaluation Narrative: I have personally performed a face to face assessment of the patient and have reviewed the HARJIT Note. I performed a substantive portion of the visit including all aspects of the following. My bullard findings include: History: Patient presents with chest pain that became worse again today. Patient was seen here yesterday for this. Patient had a negative cardiac work-up with 2 normal troponin tests. Patient states her pain became worse today. Patient states the pain is sharp. Patient states the pain is over the lower sternum. Patient states it is worse with palpation and movement. Patient denies any shortness of breath. Patient denies any nausea or vomiting. Patient denies any diaphoresis. Exam: Vital signs are stable. Patient is afebrile. Patient is in no acute distress. Oral mucosa is pink and moist. Neck is supple. Trachea is midline. There is no JVD. Heart was regular rate and rhythm. Lungs are clear and equal bilaterally. Abdomen is soft nontender. Cranial nerves II through XII are intact. There are no focal motor or sensory deficits. There is reproducible tenderness over the lower sternum. There is no edema or ecchymosis. There is no bony crepitance or step-off. Medical Decision Making: EKG was obtained. On my interpretation, it showed a normal sinus rhythm with a rate of 76. NC interval, QRS interval, and QTc intervals were all normal. [place] was normal. There are no acute ST or T wave changes. Portable 1 view chest x-ray was obtained. On my interpretation, lung rich are clear. There is normal cardiac silhouette. Bony thorax is normal. There is no acute process noted. Radiologist also interpreted the x-ray and agrees. CBC, basic metabolic profile, and troponin were obtained and were within normal limits. Patient has a HEART score of 4. Patient was instructed to follow-up with her primary care physician in 5 to 7 days for further evaluation. Patient was advised she may need a stress test. Patient was instructed to take Tylenol or ibuprofen as needed for any pain. Patient was instructed return if worse in any way. Patient understood and was agreeable with the plan. All questions were answered. Discharge Plan Triage Chief Complaint: Chest Pain ED Midlevel Provider: Aleksandra Vides ED Provider: Shayne Camargo Dx/Rx/DC Orders Clinical Impression: Atypical chest pain, Costochondritis Instructions: Chest Pain [facility] Ch Prescriptions: No Action rosuvastatin [Crestor] 20 mg tablet 20 mg PO DAILY Qty: 90 3RF pantoprazole 40 mg tablet,delayed release (DR/EC) 40 mg PO DAILY Qty: 60 2RF sucralfate [Carafate] 1 gram tablet 1 g PO QACHS Qty: 60 0RF metoprolol tartrate 50 MG tablet 50 mg PO DAILY insulin degludec [Tresiba FlexTouch U-200] 200 unit/mL (3 mL) insulin pen 80 unit SUBCUT BID Hold Instructions: [place] [address]. Hold if glucose less than 130 mg/dl lisinopril 10 mg tablet 10 mg PO DAILY diclofenac sodium [Voltaren Arthritis Pain] 1 % gel 2 g topical TID PRN PRN (Reason: pain) Qty: 100 2RF acetaminophen [Tylenol] 325 mg Tablet 650 mg PO Q4H PRN PRN (Reason: Pain 1-10 Or Fever) Qty: 0 0RF Rx Instructions: For mild to moderate pain apixaban 5 mg Tablet 5 mg PO BID Qty: 60 0RF tramadol 50 mg Tablet 50 mg PO Q8H PRN (Reason: Pain) doxycycline monohydrate 100 mg tablet 100 mg PO BID 14 Days Qty: 28 0RF baclofen 10 mg tablet 10 mg PO DAILY Label Comments: TAKE 1 TABLET BY MOUTH TWICE DAILY NEEDED FOR BACK SPASM pantoprazole 40 mg Tablet,Delayed Release (Dr/Ec) 40 mg PO DAILY naproxen 500 mg tablet 500 mg PO PRN PRN (Reason: Pain) acetaminophen-codeine 300-15 mg tablet 1 tab PO Q6H PRN (Reason: pain) 7 Days Qty: 28 0RF hydrocodone-acetaminophen [hydrocodone-acetaminophen] 5-325 mg tablet 1 tab PO Q6H PRN PRN (Reason: Pain) 1 Days Qty: 4 0RF Primary Care Provider: Alfonso Carlson Chi Referrals: Teja Valles MD [Med Staff - Active Staff] - Alfonso Carlson Chi, MD [Primary Care Provider] - Activity Restrictions/Additional Instructions: See your PCP or go back to the president + publisher to have an outpatient stress test done. Disposition Disposition: Home, Self Care
--- NOTE | 2022-03-21 12:26 | RAD_ITS ---
HISTORY: chest pain. TECHNIQUE: XR Chest 1 View. COMPARISON: Prior day. FINDINGS: CARDIOMEDIASTINAL BORDERS: Cardiac silhouette within normal limits in size. Mediastinal contour unremarkable with calcification of the aortic knob. LUNGS: Radiographically clear. Chronic elevation of the right hemidiaphragm. PLEURA: No pleural effusion or pneumothorax seen. OSSEOUS STRUCTURES: Calcific tendinitis of the left shoulder. RAD/Chest 1 View (Portable) IMPRESSION: No acute cardiopulmonary process identified. Electronically Signed: Kristin Torres MD at 13:11 EST ,
--- NOTE | 2022-03-21 12:26 | EKG12_ITS ---
Test Reason : CP Blood Pressure : / mmHG Vent. Rate : 076 BPM Atrial Rate : 076 BPM P-R Int : 102 ms QRS Dur : 058 ms QT Int : 358 ms P-R-T Axes : -05 -21 062 degrees QTc Int : 402 ms Sinus rhythm with short AK Otherwise normal ECG Confirmed by BETZY KLEIN, CATHRYN ([id number]), social media editor CHECO VELASCO ([id number]) on 03/22/2022 12:53:01 PM Referred By: SILKE Confirmed By:CATHRYN BO MD
--- NOTE | 2022-03-21 12:41 | ED.RN ---
PATIENT STATES SHE DOES NOT WANT THE ASPIRIN. SHE WAS GIVEN IT YESTERDAY AND DID NOTHING. PATIENT WAS INFORMED THAT IT IS GIVEN FOR CARDIAC WORKUPS. PATIENT CONTINUED TO REFUSE MEDICATION. WAYNE TAMAYO NOTIFIED
[2022-03-21 12:58] LABS: Absolute Lymphocyte Count 3.47 X10^3/uL (0.83-4.51); Absolute Neutrophil Count 6.1 X10^3/uL (2.0-7.7); Basophil# 0.04 X10^3/uL; Basophil% 0.4 % (0-1); Eosinophil# 0.04 X10^3/uL; Eosinophils% 0.4 % (0-5); Hematocrit 37.3 % (37-47); Hemoglobin 12.3 g/dL (12.0-15.0); Lymphocyte # 3.47 X10^3/ul (0.83-4.51); Lymphocyte % 33.3 % (19-41); Mean Corpuscular Hgb 26.6 pg (27.0-32.0); Mean Corpuscular Volume 80.6 fL (81-99); Mean Platelet Vol. 9.3 fl (6.2-12.0); Monocyte# 0.76 X10^3/uL; Monocyte% 7.3 % (0-10); NRBC Flagged by Analyzer 0 % (0-5); Neutrophil # 6.08 X10^3/uL (2.7-7.7); Neutrophil % 58.3 % (47-70); Platelet Count 334 K/mm3 (150-450); RBC Distribution Width CV 15.9 % (11.6-14.6); RBC Distribution Width SD 45.8 fl (35.1-43.9); Red Blood Count 4.63 M/mm3 (4.2-5.4); White Blood Count 10.4 K/mm3 (4.4-11.0)
[2022-03-21 13:12] LABS: Anion Gap 6 (5-15); BUN 39 mg/dL (7-18); BUN/Creat Ratio 34.8 RATIO (10-20); Calcium,Total 9.3 mg/dL (8.5-10.1); Chloride 105 mmol/L (98-107); Creatinine, Serum 1.12 mg/dL (0.55-1.02); EST Glomerular Filtration Rate 51 mL/min (>60); Est Glom Filt Rate - Afr Amer 61 mL/min (>60); Estimated Creatinine Clearance 35.38 ml/min; Glucose 269 mg/dL (74-106); Potassium 4.5 mmol/L (3.5-5.1); Sodium Level 134 mmol/L (136-145); Troponin-I HS (w/2H Reflex) 21 pg/mL (3.0-54.0)
[2022-03-21] MEDS: Morphine 4 MG/ML Syringe IV (13:17)
[2022-03-21] MEDS: Ondansetron 4 MG/2 ML Vial IV (13:17)
[2022-03-21 14:17] VITALS: BP 112/81; PULSE 74; RESP 16; O2SAT 97
[2022-03-21 14:51] LABS: Reflex Troponin-HS? (from REC) Y
== END 2022-03-21 14:19 | disposition home or self-care (01) ==
PROVIDERS: Physician Assistant; Emergency Provider Emergency Medicine; PCP Family Medicine Geriatric Medicine; Visit Provider Emergency Medicine
DX: M94.0 Chondrocostal junction syndrome [Tietze] (principal); E11.9 Type 2 diabetes mellitus without complications; I10 Essential (primary) hypertension; E78.5 Hyperlipidemia, unspecified; Z79.01 Long term (current) use of anticoagulants; Z79.899 Other long term (current) drug therapy; Z86.718 Personal history of other venous thrombosis and embolism
CPT/HCPCS: 71045; 80048; 84484; 85025; 93005; 96374; 96375; 99284; A4216; J2405

== ENCOUNTER → 2022-03-22 | Outpatient (CLI) | payer MEDICARE, SELFPAY ==
--- NOTE | 2022-03-22 14:20 | RAD_ITS ---
EXAM: XR THORACIC SPINE, 3 VIEWS CLINICAL INDICATION: THORACIC RADICULOPATHY TECHNIQUE: Frontal, lateral and swimmer''s views of the thoracic spine. This report was created using [employer] report generation technology. COMPARISON: None. FINDINGS: VERTEBRAE: Unremarkable. Preserved vertebral body height. No fracture. No spondylolisthesis. Preservation of the normal thoracic kyphosis. No significant facet arthropathy. DISC SPACES: Unremarkable. Disc spaces are maintained. RAD/Thoracic Spine 3 Views IMPRESSION: No evidence of thoracic spinal fracture or spondylolisthesis. Electronically Signed: Deven Donnelly MD at 19:35 EST ,
== END | disposition home or self-care (01) ==
LOC: RAD 14:16
PROVIDERS: PCP Family Medicine Geriatric Medicine; Referring Provider Family Medicine Geriatric Medicine; Visit Provider Family Medicine Geriatric Medicine
DX: M54.14 Radiculopathy, thoracic region (principal)
CPT/HCPCS: 72072

== ENCOUNTER 2022-03-25 08:52 | Day surgery (SDC) | payer MEDICARE, SELFPAY ==
[2022-03-24 07:07] VITALS: BMI 23.3
--- NOTE | 2022-03-25 09:29 | HP.PCM_ITS ---
[facility] - General General Date of Service: 03/25/22 Chief Complaint: Atherosclerosis with nonhealing wounds of RLE [facility] Narrative YENNY LUGO, is a 72 F who presents today for angiogram with Dr. Donato. She has nonhealing wounds of right lateral foot and right 4th and 5th toes with necrotic tissue. LEAS revealed significant arterial disease CTA revealed occluded right SFA. The wounds are stable from last visit, still with necrotic tissue. No significant medical issues since she was last seen, no changes to medications. No complaints today, denies constitutional symptoms, chest pain, SOB. She remains agreeable to proceed with angiogram and acknowledges understanding of risks and benefits. Reports she held last 2 doses of Eliquis. [facility] Medical History Abscess of right elbow Acute pancreatitis Arthritis Back problem Chest pain Diabetes Elevated hemoglobin A1c Essential (primary) hypertension History of deep venous thrombosis (01/2020) Hormone deficiency Hyperlipidemia Mass of skin of right elbow Seasonal allergies Type 2 diabetes mellitus Home Medications metoprolol tartrate 50 mg tablet 50 mg PO DAILY BLOOD PRESSURE 03/06/19 [History Last Taken 02/17/21] insulin degludec 200 unit/mL (3 mL) subcutaneous pen (Tresiba FlexTouch U-200 insulin) 80 unit subcut BID diabetes 01/21/21 [History Last Taken 02/17/21] lisinopril 10 mg tablet 10 mg PO DAILY BP 02/17/21 [History Last Taken 02/17/21] diclofenac sodium 1 % topical gel (Voltaren Arthritis Pain) 2 g topical TID PRN PRN pain #100 grams 04/02/21 [Rx Last Taken Unknown] rosuvastatin 20 mg tablet (Crestor) 20 mg PO DAILY #90 tabs 09/08/21 [Rx Last Taken Unknown] acetaminophen 325 mg tablet (Tylenol) 650 mg PO Q4H PRN PRN Pain 1-10 Or Fever #0 tabs 12/09/21 [Rx Last Taken Unknown] apixaban 5 mg tablet 5 mg PO BID #60 tabs 12/09/21 [Rx Last Taken 03/24/22] tramadol 50 mg tablet 50 mg PO Q8H PRN Pain 02/16/22 [History Last Taken Unknown] baclofen 10 mg tablet 10 mg PO DAILY 03/04/22 [History Last Taken Unknown] naproxen 500 mg tablet 500 mg PO PRN PRN Pain 03/04/22 [History Last Taken Unknown] pantoprazole 40 mg tablet,delayed release 40 mg PO DAILY 03/04/22 [History Last Taken Unknown] acetaminophen 300 mg-codeine 15 mg tablet 1 tab PO Q6H PRN pain 7 days #28 tabs 03/05/22 [Rx Last Taken Unknown] hydrocodone-acetaminophen 5-325mg 5mg-325mg 1 tab PO Q6H PRN PRN Pain 1 day #4 TABLETS 03/14/22 [Rx Last Taken Unknown] doxycycline monohydrate 100 mg tablet 100 mg PO BID 14 days #28 tabs 03/16/22 [Rx Last Taken Unknown] pantoprazole 40 mg tablet,delayed release 40 mg PO DAILY #60 tabs 03/19/22 [Rx Last Taken Unknown] sucralfate 1 gram tablet (Carafate) 1 g PO QACHS #60 tabs 03/19/22 [Rx Last Taken Unknown] Allergy/AdvReac Type Severity Reaction Status Date / Time diphenhydramine Allergy Swelling Verified 03/20/22 16:04 [From Gabi] Family History Unknown Breast cancer Colon cancer Myocardial infarction Hypertension Hyperlipidemia Father Heart disease Hypertension Mother Diabetes Hypertension Kidney disease Liver disease Other Arthritis Surgical History History of Social History household members: spouse housing: house history of recent travel: No Smoking Status: Never smoker alcohol intake: never substance use type: does not use what type of physical activity do you participate in: none ROS Constitutional Constitutional: Denies fatigue, fever(s) or frequent falls Eyes Eyes: Reports none ENT HEENT: Reports none Cardiovascular Cardiovascular: Denies chest pain, claudication, edema, palpitations or syncope Respiratory/Chest Respiratory/Chest: Denies cough, hemoptysis, shortness of breath at rest or wheezing Gastrointestinal Gastrointestinal: Denies abdominal pain, constipation, diarrhea, hematemesis, hematochezia, melena, nausea or vomiting Genitourinary Genitourinary: Denies dysuria or hematuria Musculoskeletal Musculoskeletal: Reports joint pain and joint stiffness Integumentary Integumentary: Reports skin ulcer and wounds Neurologic Neurologic: Reports numbness; Denies confusion, dizziness, focal weakness or headache(s) Psychiatric Psychiatric: Denies anxiety or depression Endocrine Endocrinology: Reports none Hematologic/Lymphatic Hematologic/Lymphatic: Reports easy bleeding and easy bruising Vital Signs Vital Signs Vital Signs: Weight Weight: 128 lb Body Mass Index (BMI) 23.3 Physical Exam Const alert, oriented x3, no apparent distress and well nourished General Appearance: cooperative HEENT normocephalic and head/scalp atraumatic Eyes PERRL and EOMs intact bilaterally Neck Neck Narrative: normal appearance, full ROM General: trachea midline Resp normal respiratory effort, normal air movement and clear to auscultation bilaterally Effort and Inspection: Negative for labored or uses accessory muscles Auscultation: Negative for wheezes Cardio regular rate and regular rhythm Extremity Extremity Narrative: Pulses: Normal: Right Femoral Pulse, Left Femoral Pulse, Right Radial Pulse and Left Radial Pulse, Diminished: Right Posterior Tibial Pulse (positive signal on doppler) and Left Posterior Tibial Pulse (positive signal on doppler) and Absent: Right Dorsalis Pedis Pulse (positive signal on doppler) and Left Dorsalis Pedis Pulse (positive signal on doppler) Lower Extremity Edema: None: Bilateral and Color Changes: Right (some dependent rubor noted) Veins: Bilateral: Varicose Veins Skin Skin Narrative: wounds to lateral right foot and right 4th and 5th toes with necrotic tissue. No redness, swelling, foul-smelling drainage. Neuro CN's II-XII intact bilaterally, no focal motor deficits and no sensory deficits noted Speech: speech normal Psych thought process normal, cooperative and affect normal Assessment & Plan Assessment/Plan (1) Atherosclerosis of lower extremity with ulceration: PLAN: Proceed with angiogram with possible intervention.
--- NOTE | 2022-03-25 22:03 | OP.PCM_ITS ---
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 She noninvasive vascular which revealed significant arterial insufficiency, and CT angiography revealed highly calcified vessels with a moderate length superficial femoral artery occlusion. She presents now for angiography with possible intervention. Description of procedure: Upon obtaining informed consent and verification correct patient procedure site patient taken to [facility] where she was positioned prepped and draped in usual sterile fashion. Time was then performed and conscious sedation administered with intermittent doses of Versed and fentanyl. Skin over the left common femoral artery was anesthetized 1% lidocaine and the vessel access and ultrasound guidance using micropuncture needle and wire. This then exchanged for a micro sheath and hand-injection femoral angiogram revealed satisfactory placement with no extravasation or dissection. Through the micropuncture sheath Bentson wire advanced abdominal aorta and the micropuncture sheath exchanged out for a short 5 [place]e sheath. Through the 5 [place]e sheath and Omni Flush catheter advanced and abdominal aorta digit subtraction aortogram pelvic angiogram was performed. 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 There is felt to be appropriate for intervention so the Bentson wire advanced and the Omni Flush catheter was drawn by [place]e sheath was exchanged out for a 7 [place] [employer] destination sheath advanced into the distal external iliac artery. Patient was heparinized observed for 3 minutes after which a quick cross catheter and command 18 wire was utilized to engage the top of the occlusion and successfully cross maintaining position of the true lumen. Once the catheter was advanced beyond the occlusion the wire was withdrawn and hand-injection angiography confirm present within the true lumen beyond the lesion. An [employer] bare wire was then advanced through the catheter and the cath withdrawn. An [employer] distal embolic protection device was then advanced in the position and deployed. Next the [employer] jetstream rotational atherectomy device was brought to field prep for straightedge machine operator helper instruction. This was then advanced over the filter wire proximal to the lesion and then engaged in blades down configuration for 2 passes. Upon withdrawing after the second pass atherectomized came seized on the wire and rhythm to be advanced or withdrawn independent of the wire motion. Unfortunately we had to withdraw the atherectomy device as well as the wire and filter in unison losing access. We then readvanced our command wire and read traverse the lesion again maintaining position within true lumen, with repeat angiography via both the sheath and catheter beyond the lesion confirming presence within the true lumen of the treated vessel likely. The command wire was then withdrawn and a [employer] spider filter advanced in the position behind the lesion and deployed. Next a Serranator serrated balloon 4 x 120 was advanced into position and inflated nominal across the length of the lesion for multiple inflations. Balloon was in withdrawn and repeat angiography revealed satisfactory resolution of the lesion with no extravasation or dissection or residual stenosis. Given the length of the lesion multiple drug-coated balloons were required, the first a [employer] [place] 4 x 200 was advanced in the position and inflated to nominal for 3 minutes and then withdrawn. Next a 4 x 80 was selected to complete the coverage of the lesion. Completion angiography revealed satisfactory resolution of the lesion with brisk contrast transit, no extravasation or dissection and no evidence of embolization. The field was then retrieved and a 7 [place]e sheath exchanged for short 7 [place]e sheath followed by a minx closure device. After 2 minutes of manual pressure patient was taken to cover anticipated discharged home after bedrest. Radiograph interpretation: Abdominal aorta normal caliber with no significant atherosclerosis or stenosis Left common iliac artery patent with no significant atherosclerosis or stenosis left internal iliac artery patent with no atherosclerosis or stenosis, left external iliac artery patent with no atherosclerosis or stenosis, left common femoral artery and its branches no atherosclerosis or stenosis. Right common iliac artery widely patent no atherosclerosis or stenosis right internal iliac artery widely patent with no atherosclerosis or stenosis, right external iliac artery widely patent no atherosclerosis or stenosis. Right profundofemoral artery widely patent with no atherosclerosis, diffuse calcifications. Right superficial femoral artery patent at its origin with occlusion approximate 1 cm distal, diffuse calcification throughout its entirety. Reconstitution of the distal superficial femoral artery with continued diffuse significant calcification. Popliteal artery patent with mild focal stenosis and diffuse calcification. Popliteal trifurcation patent with calcifications but no stenosis. Anterior tibial, tibioperoneal trunk, posterior tibial and peroneal arteries patent with diffuse calcification but no stenosis tibial vessels visualized to the ankle with limited visualization within the foot due to contrast timing and injection location. Satisfactory resolution of the SFA occlusion after intervention.
== END 2022-03-25 17:15 | disposition home or self-care (01) ==
PROVIDERS: PCP Family Medicine Geriatric Medicine; Referring Provider Surgery Trauma Surgery; Visit Provider Surgery Trauma Surgery
DX: E11.51 Type 2 diabetes mellitus with diabetic peripheral angiopathy without gangrene (principal); E11.621 Type 2 diabetes mellitus with foot ulcer; L97.519 Non-pressure chronic ulcer of other part of right foot with unspecified severity; I70.201 Unspecified atherosclerosis of native arteries of extremities, right leg; Z79.4 Long term (current) use of insulin; E78.5 Hyperlipidemia, unspecified; I10 Essential (primary) hypertension; Z86.718 Personal history of other venous thrombosis and embolism; Z79.899 Other long term (current) drug therapy; Z79.01 Long term (current) use of anticoagulants
CPT/HCPCS: 36246; 36200; 36245; 37225; 75625; 75710; 76937; 99152; 99153; C1724; C1725; C1760; C1769; C1884; C2623; J7030; J7040; Q9967; C1887; C1894

== ENCOUNTER 2022-03-26 21:38 | Emergency (ER) | payer MEDICARE, SELFPAY ==
[2022-03-26 21:39] VITALS: BP 145/70; PULSE 99; RESP 19; TEMP 36.4; O2SAT 96; BMI 22.1
[2022-03-26 22:32] LABS: Absolute Lymphocyte Count 3.68 X10^3/uL (0.83-4.51); Absolute Neutrophil Count 6.8 X10^3/uL (2.0-7.7); Basophil# 0.03 X10^3/uL; Basophil% 0.3 % (0-1); Eosinophil# 0.05 X10^3/uL; Eosinophils% 0.4 % (0-5); Hematocrit 39.5 % (37-47); Hemoglobin 12.5 g/dL (12.0-15.0); Lymphocyte # 3.68 X10^3/ul (0.83-4.51); Lymphocyte % 32.1 % (19-41); Mean Corp Hgb Conc 31.6 g/dL (32-36); Mean Corpuscular Hgb 26.1 pg (27.0-32.0); Mean Corpuscular Volume 82.5 fL (81-99); Monocyte# 0.86 X10^3/uL; Monocyte% 7.5 % (0-10); NRBC Flagged by Analyzer 0 % (0-5); Neutrophil % 59.3 % (47-70); Platelet Count 321 K/mm3 (150-450); RBC Distribution Width CV 16.4 % (11.6-14.6); Red Blood Count 4.79 M/mm3 (4.2-5.4); White Blood Count 11.5 K/mm3 (4.4-11.0)
--- NOTE | 2022-03-26 22:38 | EX.ED.DYSGE1 ---
HPI History of Present Illness Chief Complaint: Chest Pain Narrative Narrative: Patient is a 72-year-old female with past medical history of type 2 diabetes hypertension hyperlipidemia and previous DVT currently on Eliquis. Patient was seen on March 14 March 20 and March 21 secondary to midsternal chest pain. Work-ups at those time were negative. She states that today the pain began around 2 PM and has been constant. She states there was no trauma or excessive activity. She denies any radiation of the pain. She states that there is no increased pain with breathing she denies any shortness of breath nausea vomiting or diaphoresis. She states she has been taking her Eliquis as directed. She states that she was taking [id number] medications with minimal symptom improvement and felt the chest pain was worsening so she comes in for evaluation. [facility] Medical History Abscess of right elbow Acute pancreatitis Arthritis Back problem Chest pain Diabetes Elevated hemoglobin A1c Essential (primary) hypertension History of deep venous thrombosis (01/2020) Hormone deficiency Hyperlipidemia Mass of skin of right elbow Seasonal allergies Type 2 diabetes mellitus Home Medications metoprolol tartrate 50 mg tablet 50 mg PO DAILY BLOOD PRESSURE 03/06/19 [History Last Taken 02/17/21] insulin degludec 200 unit/mL (3 mL) subcutaneous pen (Tresiba FlexTouch U-200 insulin) 80 unit subcut BID diabetes 01/21/21 [History Last Taken 02/17/21] lisinopril 10 mg tablet 10 mg PO DAILY BP 02/17/21 [History Last Taken 02/17/21] diclofenac sodium 1 % topical gel (Voltaren Arthritis Pain) 2 g topical TID PRN PRN pain #100 grams 04/02/21 [Rx Last Taken Unknown] rosuvastatin 20 mg tablet (Crestor) 20 mg PO DAILY #90 tabs 09/08/21 [Rx Last Taken Unknown] acetaminophen 325 mg tablet (Tylenol) 650 mg PO Q4H PRN PRN Pain 1-10 Or Fever #0 tabs 12/09/21 [Rx Last Taken Unknown] apixaban 5 mg tablet 5 mg PO BID #60 tabs 12/09/21 [Rx Last Taken 03/24/22] tramadol 50 mg tablet 50 mg PO Q8H PRN Pain 02/16/22 [History Last Taken Unknown] baclofen 10 mg tablet 10 mg PO DAILY 03/04/22 [History Last Taken Unknown] naproxen 500 mg tablet 500 mg PO PRN PRN Pain 03/04/22 [History Last Taken Unknown] pantoprazole 40 mg tablet,delayed release 40 mg PO DAILY 03/04/22 [History Last Taken Unknown] acetaminophen 300 mg-codeine 15 mg tablet 1 tab PO Q6H PRN pain 7 days #28 tabs 03/05/22 [Rx Last Taken Unknown] hydrocodone-acetaminophen 5-325mg 5mg-325mg 1 tab PO Q6H PRN PRN Pain 1 day #4 TABLETS 03/14/22 [Rx Last Taken Unknown] doxycycline monohydrate 100 mg tablet 100 mg PO BID 14 days #28 tabs 03/16/22 [Rx Last Taken Unknown] pantoprazole 40 mg tablet,delayed release 40 mg PO DAILY #60 tabs 03/19/22 [Rx Last Taken Unknown] sucralfate 1 gram tablet (Carafate) 1 g PO QACHS #60 tabs 03/19/22 [Rx Last Taken Unknown] clopidogrel 75 mg tablet (Plavix) 75 mg PO DAILY #90 tabs 03/25/22 [Rx Last Taken Unknown] methocarbamol 500 mg tablet 500 mg PO TID PRN Muscle pain/spasm #30 tabs 03/26/22 [Rx Last Taken Unknown] oxycodone-acetaminophen 5 mg-325 mg tablet (Percocet) 1 tab PO Q6H PRN pain 3 days #12 tabs 03/26/22 [Rx Last Taken Unknown] Allergy/AdvReac Type Severity Reaction Status Date / Time diphenhydramine Allergy Swelling Verified 03/26/22 21:42 [From Gabi] Family History Unknown Breast cancer Colon cancer Myocardial infarction Hypertension Hyperlipidemia Father Heart disease Hypertension Mother Diabetes Hypertension Kidney disease Liver disease Other Arthritis Surgical History History of Social History household members: spouse housing: house history of recent travel: No Smoking Status: Never smoker alcohol intake: never substance use type: does not use what type of physical activity do you participate in: none ROS ROS ED Constitutional Constitutional ED: Denies chills or fever(s) ENT ENT ED: Denies sore throat Cardiovascular Cardiovascular: Reports chest pain; Denies palpitations or racing heartbeat Respiratory/Chest Respiratory/Chest: Denies cough or dyspnea Gastrointestinal Gastrointestinal: Denies abdominal pain, diarrhea, nausea or vomiting Genitourinary Genitourinary ED: Denies dysuria Musculoskeletal Musculoskeletal: Denies back pain or myalgias Integumentary Denies rash Neurologic Neurologic: Denies headache(s) Hematologic/Lymphatic Hematologic/Lymphatic: Reports easy bleeding and easy bruising EXAM Physical Exam Const Vital Signs: 03/26/22 21:39 03/26/22 21:42 03/26/22 22:31 Temperature 97.5 F L Temperature Source Oral Pulse Rate 99 Respiratory Rate 19 H Respiratory Effort Normal Non-Labored Blood Pressure 145/70 H Blood Pressure Mean 95 Pulse Ox 96 Oxygen Delivery Method Room Air Room Air Positive well nourished and well developed General Appearance ED: well developed Eyes PERRL and EOMs intact bilaterally Neck supple and no JVD Chest Wall Chest Narrative: Patient has reproducible anterior chest wall pain along the right side where the rib and sternum meet along rib region 6. Patient states this is the same pain she has been experiencing. No bony deformity or crepitance palpated Resp normal respiratory effort and clear to auscultation bilaterally Cardio regular rate and regular rhythm Rate: other Other Details: Radial pulses are +2-4 bilaterally are equal and symmetric Carotid pulses equal and symmetric as well GI normal to inspection, nondistended, normoactive bowel sounds, non-tender, non-distended and no masses GI Narrative: No voluntary guarding no rigidity no pulsatile mass Auscultation: normoactive bowel sounds Palpation: soft Extremity normal to inspection Extremity Narrative: No asymmetric edema no pitting edema negative Homans' sign bilaterally Neuro oriented x3 and CN's II-XII intact bilaterally Sensorium / Orientation: alert Psych mental status grossly normal Skin no rashes or lesions noted MDM MDM MDM Narrative Medical decision making narrative: Patient presented to the ER hypertensive but does have a history of this. She has been seen multiple times in the last few weeks secondary to the same event. Her pain she states has been constant for approximately 8 hours and there are no associated symptoms reported with it such as nausea vomiting diaphoresis shortness of breath. She also states she has been taking her Eliquis as directed and there is no pleuritic chest pain. Her troponin has been downtrending from the initial on the and today is normal at 12. Therefore based on the downtrending troponin from her initial evaluation a few weeks ago as well as the fact that she states her pain has been constant for 8 hours I do not feel there is need for serial enzymes. As she does not have pleuritic chest pain and has been taking Eliquis my concern for PE is low and therefore do not feel the need for a CTA. Patient was given Norflex and did report improvement of pain. Therefore at this time as the troponin is downtrending x-ray reveals no acute lung pathology and patient is having provement of symptoms I do not feel there is need for further evaluation and she is otherwise safe for discharge. Lab Data Attestation: I reviewed the patient's lab results. Labs: Laboratory Results - last 24 hr 03/26/22 03/26/22 03/26/22 21:43 21:43 21:43 WBC 11.5 H RBC 4.79 Hgb 12.5 Hct 39.5 MCV 82.5 MCH 26.1 L MCHC 31.6 L RDW Std Deviation 49.0 H RDW Coeff of Melvina 16.4 H Plt Count 321 MPV 10.0 Immature Gran % (Auto) 0.400 Neut % (Auto) 59.3 Lymph % (Auto) 32.1 Moody % (Auto) 7.5 Eos % (Auto) 0.4 Baso % (Auto) 0.3 Absolute Neuts (auto) 6.8 Absolute Lymphs (auto) 3.68 Nucleated RBC % 0 PT 12.3 INR 1.0 Sodium 135 L Potassium 3.9 Chloride 103 Carbon Dioxide 25.0 Anion Gap 7 BUN 29 H Creatinine 0.94 Estim Creat Clear Calc 42.16 Est GFR (MDRD) Af Amer 75 Est GFR (MDRD) Non-Af 62 BUN/Creatinine Ratio 30.9 H Glucose 307 H Calcium 9.3 Troponin I High Sens 12 Radiography Diagnostic Testing: Clinical Impression(s) from Imaging Studies Chest X-Ray 03/26/22 22:45 IMPRESSION: No active disease. Electronically Signed: Jaydon Barahona MD at 23:05 EST , Chest x-ray as interpreted by the emergency medicine physician reveals no acute infiltrate pneumothorax or pleural effusion Discharge Plan Triage Chief Complaint: Chest Pain ED Provider: Johnny Fitzpatrick Dx/Rx/DC Orders Clinical Impression: Chest wall pain, Essential (primary) hypertension, Type 2 diabetes mellitus treated with insulin, Current use of detention anticoagulation Instructions: ED Chest Pain Wall Costochond Prescriptions: New oxycodone-acetaminophen [Percocet] 5-325 mg tablet 1 tab PO Q6H PRN (Reason: pain) 3 Days Qty: 12 0RF methocarbamol 500 mg tablet 500 mg PO TID PRN (Reason: Muscle pain/spasm) Qty: 30 0RF No Action rosuvastatin [Crestor] 20 mg tablet 20 mg PO DAILY Qty: 90 3RF pantoprazole 40 mg tablet,delayed release (DR/EC) 40 mg PO DAILY Qty: 60 2RF sucralfate [Carafate] 1 gram tablet 1 g PO QACHS Qty: 60 0RF metoprolol tartrate 50 MG tablet 50 mg PO DAILY insulin degludec [Tresiba FlexTouch U-200] 200 unit/mL (3 mL) insulin pen 80 unit SUBCUT BID Hold Instructions: [place] [address]. Hold if glucose less than 130 mg/dl lisinopril 10 mg tablet 10 mg PO DAILY diclofenac sodium [Voltaren Arthritis Pain] 1 % gel 2 g topical TID PRN PRN (Reason: pain) Qty: 100 2RF acetaminophen [Tylenol] 325 mg Tablet 650 mg PO Q4H PRN PRN (Reason: Pain 1-10 Or Fever) Qty: 0 0RF Rx Instructions: For mild to moderate pain apixaban 5 mg Tablet 5 mg PO BID Qty: 60 0RF tramadol 50 mg Tablet 50 mg PO Q8H PRN (Reason: Pain) doxycycline monohydrate 100 mg tablet 100 mg PO BID 14 Days Qty: 28 0RF baclofen 10 mg tablet 10 mg PO DAILY Label Comments: TAKE 1 TABLET BY MOUTH TWICE DAILY NEEDED FOR BACK SPASM pantoprazole 40 mg Tablet,Delayed Release (Dr/Ec) 40 mg PO DAILY naproxen 500 mg tablet 500 mg PO PRN PRN (Reason: Pain) acetaminophen-codeine 300-15 mg tablet 1 tab PO Q6H PRN (Reason: pain) 7 Days Qty: 28 0RF hydrocodone-acetaminophen [hydrocodone-acetaminophen] 5-325 mg tablet 1 tab PO Q6H PRN PRN (Reason: Pain) 1 Days Qty: 4 0RF clopidogrel [Plavix] 75 mg tablet 75 mg PO DAILY Qty: 90 0RF Primary Care Provider: Alfonso Carlson Chi Referrals: Alfonso Carlson Chi, MD [Primary Care Provider] - Disposition Disposition: Home, Self Care
[2022-03-26 22:41] LABS: Prothrombin Time (Protime)PT. 12.3 SECONDS (11.7-14.9)
--- NOTE | 2022-03-26 22:45 | RAD_ITS ---
STUDY: X-RAY CHEST REASON FOR EXAM: Female, 72 years old. chest pain TECHNIQUE: PA and lateral views of the chest. COMPARISON: 03/21/2022 FINDINGS: The lungs are clear and expanded. Elevated right hemidiaphragm which is unchanged. Normal size heart. Normal mediastinum and coco. Normal visualized pulmonary arteries. Normal visualized aortic arch and descending thoracic aorta. Normal visualized thoracic spine. Normal visualized ribs, clavicles, and shoulders. There is no demonstrated abnormality of the visualized soft tissue structures of the upper abdomen. RAD/Chest PA and Lateral IMPRESSION: No active disease. Electronically Signed: Jaydon Barahona MD at 23:05 EST ,
[2022-03-26 22:49] LABS: Anion Gap 7 (5-15); BUN 29 mg/dL (7-18); BUN/Creat Ratio 30.9 RATIO (10-20); Calcium,Total 9.3 mg/dL (8.5-10.1); Chloride 103 mmol/L (98-107); Creatinine, Serum 0.94 mg/dL (0.55-1.02); EST Glomerular Filtration Rate 62 mL/min (>60); Est Glom Filt Rate - Afr Amer 75 mL/min (>60); Estimated Creatinine Clearance 42.16 ml/min; Glucose 307 mg/dL (74-106); Potassium 3.9 mmol/L (3.5-5.1); Sodium Level 135 mmol/L (136-145); Troponin-I HS 12 pg/mL (3.0-54.0)
[2022-03-26] MEDS: Orphenadrine 60 MG/2 ML Ampul IV (22:54)
[2022-03-26 23:41] VITALS: BP 141/130; PULSE 70; RESP 19; O2SAT 98
[2022-03-26 23:43] VITALS: BP 122/109; PULSE 67; RESP 15; O2SAT 97
[2022-03-26] MEDS: oxyCODONE 5 MG Tablet PO (23:47)
== END 2022-03-26 23:59 | disposition home or self-care (01) ==
PROVIDERS: Emergency Provider Emergency Medicine; PCP Family Medicine Geriatric Medicine; Visit Provider Emergency Medicine
DX: R07.89 Other chest pain (principal); E11.9 Type 2 diabetes mellitus without complications; Z79.4 Long term (current) use of insulin; I10 Essential (primary) hypertension; Z79.01 Long term (current) use of anticoagulants; Z87.891 Personal history of nicotine dependence; Z86.718 Personal history of other venous thrombosis and embolism; Z79.899 Other long term (current) drug therapy
CPT/HCPCS: 71046; 80048; 84484; 85025; 85610; 93005; 96374; 99285; A4216

== ENCOUNTER 2022-03-30 09:30 | Outpatient (RCR) | payer MEDICARE, SELFPAY ==
[2022-03-04 00:33] VITALS: BP 119/80; PULSE 89; RESP 16; TEMP 35.5; BMI 22.6
[2022-03-16 13:52] VITALS: BP 103/49; PULSE 91; RESP 16; TEMP 35.9; BMI 22.6
--- NOTE | 2022-03-16 16:06 | PCM.WC.PN ---
History of Present Illness Date of Service: 03/16/22 Chief Complaint: Right lateral foot, proximal to 5th toe History of Wound: Patient is a 72 year old female who presents with a right lateral foot ulcer that occurred while off loading her foot from her right plantar ulcer that recently has healed. She has been wearing a Darco shoe to off load and and it has rubbed her foot causing an ulcer on her right lateral foot. She has had several falls over the past several months. She is a poor historian. She has a history of DM type 2, HTN, DVT, PE, on Eliquis, and knee pain. She had an arterial study on 02/11/22 which showed: Monophasic Doppler waveforms are noted at ankle level on the right. Triphasic and biphasic Doppler waveforms are noted at ankle level on the left. Pulse-volume recordings appear diminished at calf, ankle, and digital levels on the right. Resting ankle-brachial indices could not be determined on either side due to the non-compressibility of the vasculature at ankle level bilaterally. The right digital-brachial index is severely diminished. The left digital-brachial index is moderately diminished. There is evidence of arterial calcification at low thigh, calf, and ankle levels bilaterally. There is evidence of severe arterial occlusive disease at digital level on the right. There is evidence of moderate arterial occlusive disease at digital level on the left. She denies any fever, chills, nausea, vomiting. She states her appetite is good. She lives at home with her . Progress of Wound: Right plantar ulcer remains healed. Right lateral foot ulcer is stable with dry necrotic tissue covering the ulcer.? She is having mild redness on the right lateral foot on the proximal edge of the dry necrotic area. No drainage, no pain, no odor. The pressure areas on her right lateral 4th toe and right medial 5th toe are dry with necrotic tissue present.? She denies any pain. Objective Data Objective Data Vital Signs: Vital Signs Temp Pulse Resp BP O2 Del Method 96.7 F L 91 16 103/49 L Room Air 03/16/22 13:52 03/16/22 13:52 03/16/22 13:52 03/16/22 13:52 03/16/22 13:52 Oxygen Delivery Method Room Air Weight: 124 lb Body Mass Index (BMI) 22.6 Charges/Coding Visit Charges Office Visits / Consults: 44946 OV L3 Est Physical Exam Const alert and oriented x3 General Appearance: cooperative HEENT normocephalic Head and Scalp: atraumatic Eyes General Eye: normal appearance of both eyes Lymph Lymphatic: no lymphedema noted Resp normal respiratory effort and clear to auscultation bilaterally Effort and Inspection: able to speak in complete sentences Cardio regular rate and regular rhythm GI non-tender Palpation: soft Extremity Extremity Narrative: Right pedal pulse palpable. Right toes have capillary refill <3 seconds. Right toes are cool to touch. Minimal edema on right foot. Skin Wound Narrative: Right medial plantar ulcer proximal to great toe remains healed. Right lateral foot ulcer is stable with dry necrotic tissue covering the ulcer.? There is redness on the proximal edge of the eschar but has no drainage or odor. The pressure areas on her right lateral 4th toe and right medial 5th toe are necrotic, dry with no redness, drainage. 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 ) Arrival Mode Ambulatory Transfer Assistance None Accompanied by Patient Identification Verified (Name & Yes ) Patient Requires Transmission-Based No Precautions Safety Precautions NA Height and Weight Body Mass Index (BMI) 22.6 BMI Classification Normal Vital Signs Temperature (97.8 F-99.1 F) 96.7 F L Temperature Source Temporal Pulse Rate (60-100) 91 Pulse Location Monitor Respiratory Rate (12-18) 16 Respiratory rate source Observation Oxygen Delivery Method Room Air Blood Pressure (90/60-120/80) 103/49 L Blood Pressure Mean (mm Hg) 67 Source Monitor Position Sitting Blood Pressure Location Left Arm History Since Last Visit- (Skip if this is Patient's initial visit) Have you changed medications since your No last visit? Any new allergies or adverse reactions No Had a fall/change in ADL's that may No increase risk of falls Signs or symptoms of abuse and/or No neglect since last visit Have you been in the hospital since your No last visit? Has dressing in place as prescribed Yes Has compression in place as prescribed N/A Has offloadiing in place as prescribed N/A Experienced any changes in pain level or No management Left Footwear Regular Shoe Right Footwear Regular Shoe Pain Scale: 0-10 Numeric Is Patient Pain Free? Yes WC - Nurse 1 - General Ulcer Measurement Start: 03/16/22 13:51 Freq: Status: Active Protocol: Activity Type Activity Date Activity User E-sign Co-sign Detail Recorded Client Recorded Date Recorded By Document 03/16/22 13:52 MW [id number] 03/16/22 13:58 MW 03/16/22 13:52 Wound Center Nurse 1 #7- R INNER 5TH TOE -Combined with other wound No -Current Size (cm) - Length 1.5 -Current Size (cm) - Width 1.2 -Current Size (cm) - Depth 0.1 -Total Square Cm 1.80 -Date of Last Picture (Recall this 03/16/22 field) -Photo Taken Yes -Epithelialization None Present -Tunneling No -Undermining/Tunneling No -Circular Undermining No -Exudate Amt None Present -Wound Margin Flat & Intact -Granulation Amt None Present (0 %) -Slough/Fibrin Yes -Necrosis Amt Large (67-100%) -Necrotic Tissue Type Eschar -Structure Exposed N/A -Texture (Damaris-wound Skin Appearance) Assessed -Moisture (Damaris-wound Skin Appearance) Assessed,Dry/ Scaly -Color (Damaris-wound Skin Appearance) Assessed -Temperature (Damaris-wound Skin No Abnormality Appearance) (Pt Warm) -Tenderness on Palpation (Damaris-wound No Skin Appearance) -Foul Odor after Cleansing No #6- R INNER 4TH TOE -Combined with other wound No -Current Size (cm) - Length 1.3 -Current Size (cm) - Width 1.3 -Current Size (cm) - Depth 0.1 -Total Square Cm 1.69 -Date of Last Picture (Recall this 03/16/22 field) -Photo Taken Yes -Epithelialization None Present -Tunneling No -Undermining/Tunneling No -Circular Undermining No -Exudate Amt None Present -Granulation Amt None Present (0 %) -Granulation Quality N/A -Slough/Fibrin Yes -Necrosis Amt Large (67-100%) -Necrotic Tissue Type Eschar -Texture (Damaris-wound Skin Appearance) No Abnormality, Assessed -Moisture (Damaris-wound Skin Appearance) Assessed,Dry/ Scaly -Color (Damaris-wound Skin Appearance) No Abnormality, Assessed -Temperature (Damaris-wound Skin No Abnormality Appearance) (Pt Warm) -Tenderness on Palpation (Damaris-wound No Skin Appearance) -Ulcer Cleansing Rinsed/ Irrigated with Saline -Foul Odor after Cleansing No #5- R LATERAL FOOT -Combined with other wound No -Current Size (cm) - Length 5.8 -Current Size (cm) - Width 2.5 -Current Size (cm) - Depth 0.1 -Total Square Cm 14.50 -Date of Last Picture (Recall this 03/16/22 field) -Photo Taken Yes -Epithelialization None Present -Tunneling No -Undermining/Tunneling No -Circular Undermining No -Exudate Amt None Present -Wound Margin Flat & Intact -Granulation Amt None Present (0 %) -Granulation Quality N/A -Slough/Fibrin Yes -Necrosis Amt Large (67-100%) -Necrotic Tissue Type Eschar -Structure Exposed N/A -Texture (Damaris-wound Skin Appearance) No Abnormality, Assessed -Moisture (Damaris-wound Skin Appearance) Assessed,Dry/ Scaly -Color (Damaris-wound Skin Appearance) No Abnormality, Assessed -Temperature (Damaris-wound Skin No Abnormality Appearance) (Pt Warm) -Tenderness on Palpation (Damaris-wound No Skin Appearance) -Ulcer Cleansing Rinsed/ Irrigated with Saline -Foul Odor after Cleansing No WC - Nurse 2 - General Ulcer CM Notes Start: 03/16/22 13:51 Freq: Status: Active Protocol: Activity Type Activity Date Activity User E-sign Co-sign Detail Recorded Client Recorded Date Recorded By Document 03/16/22 14:50 SENTHIL [id number] 03/16/22 14:55 SENTHIL 03/16/22 14:50 Wound Center Nurse 2 #7- R INNER 5TH TOE -Correct Patient No -Correct Side, Site, Position No -Correct Procedure No -Procedure Performed No -Wound/Ulcer Outcome Not Healed #6- R INNER 4TH TOE -Correct Patient No -Correct Side, Site, Position No -Correct Procedure No -Procedure Performed No -Wound/Ulcer Outcome Not Healed #5- R LATERAL FOOT -Correct Patient No -Correct Side, Site, Position No -Correct Procedure No -Procedure Performed No -Wound/Ulcer Outcome Not Healed Pain Scale: 0-10 Numeric Is Patient Pain Free? Yes - Nurse 3 - General Ulcer D/C NN Start: 03/16/22 13:51 Freq: Status: Active Protocol: Activity Type Activity Date Activity User E-sign Co-sign Detail Recorded Client Recorded Date Recorded By Document 03/16/22 15:05 MW [id number] 03/16/22 15:06 MW 03/16/22 15:05 Wound Care Nurse 3 #7- R INNER 5TH TOE -Other Dressing betadine -Primary Dressing Covered/Secured with Dry Gauze & Roll Gauze, Secured with Tape #6- R INNER 4TH TOE -Other Dressing betadine -Primary Dressing Covered/Secured with Dry Gauze & Roll Gauze, Secured with Tape #5- R LATERAL FOOT -Other Dressing betadine -Primary Dressing Covered/Secured with Dry Gauze & Roll Gauze, Secured with Tape Treatment Response Procedure Tolerated Well Pain Scale: 0-10 Numeric Is Patient Pain Free? Yes Teaching: Wound Center Dressing Your Wound -Person Taught Patient,Family -Teaching Method Discussion, Demonstration -Response to teaching Verbalize understanding WC - Visit Discharge Discharge Condition Stable Ambulatory Status Ambulatory Transportation Private Auto Accompanied by Medication Reconcilliation completed & No provided to patient/care provider Clinical Summary of Care Provided Yes Assessment/Plan Assessment/Plan (1) Ulcer of right foot due to type 2 diabetes mellitus: CODE(S): E11.621 - Type 2 diabetes mellitus with foot ulcer; L97.519 - Non-pressure chronic ulcer of other part of right foot with unspecified severity (2) Pressure ulcer of toe of right foot, unstageable: CODE(S): L89.890 - Pressure ulcer of other site, unstageable (3) Type 2 diabetes mellitus treated with insulin: CODE(S): E11.9 - Type 2 diabetes mellitus without complications; Z79.4 - public information director (current) use of insulin (4) Essential (primary) hypertension: CODE(S): I10 - Essential (primary) hypertension (5) Hyperlipidemia: CODE(S): E78.5 - Hyperlipidemia, unspecified PLAN: Plan Patient was evaluated at the wound healing center today. Wound care - Betadine to the blackened scab on right lateral foot, covered with dry gauze daily. To the right lateral 4th toe and right medial 5th toe, place Betadine on these two areas, to keep them dry, place a thin piece of gauze between her toes to help keep the area dry. Off load - She had her Darco shoe modified to prevent pressure to the right lateral foot ulcer. She went to the foot and ankle clinic to have them modify her shoe to prevent pressure on her right lateral foot. Stressed the importance of making sure that her shoe is not putting pressure on the side of her right foot and pressing her toes together. Place the gauze between her right 4th and 5th toes and making sure it is not too thick. Stressed to watch for changes in these toes and to notify us if there are changes in her them and in the the lateral foot ulcer. Keep foot elevated when sitting. Will place her on Doxycycline for the redness on the proximal edge of right lateral foot. Stressed the importance of watching the redness, if it starts to spread or drain, she needs to be evaluated enma. She has arterial compromise and is seeing Dr. Donato. Encourage her to eat low carbohydrate and high protein, low sodium diet to help with wound healing, controlling blood sugars and HTN. Follow up one week.
[2022-03-23 13:41] VITALS: BP 163/56; PULSE 56; RESP 20; TEMP 35.7; BMI 22.6
--- NOTE | 2022-03-23 17:19 | PN.PCM_ITS ---
History of Present Illness Date of Service: 03/23/22 Chief Complaint: Right lateral foot, proximal to 5th toe History of Wound: Patient is a 72 year old female who presents with a right lateral foot ulcer that occurred while off loading her foot from her right plantar ulcer that recently has healed. She has been wearing a Darco shoe to off load and and it has rubbed her foot causing an ulcer on her right lateral foot. She has had several falls over the past several months. She is a poor historian. She has a history of DM type 2, HTN, DVT, PE, on Eliquis, and knee pain. She had an arterial study on 02/11/22 which showed: Monophasic Doppler waveforms are noted at ankle level on the right. Triphasic and biphasic Doppler waveforms are noted at ankle level on the left. Pulse-volume recordings appear diminished at calf, ankle, and digital levels on the right. Resting ankle- brachial indices could not be determined on either side due to the non- compressibility of the vasculature at ankle level bilaterally. The right digital-brachial index is severely diminished. The left digital-brachial index is moderately diminished. There is evidence of arterial calcification at low thigh, calf, and ankle levels bilaterally. There is evidence of severe arterial occlusive disease at digital level on the right. There is evidence of moderate arterial occlusive disease at digital level on the left. She denies any fever, chills, nausea, vomiting. She states her appetite is good. She lives at home with her . Progress of Wound: Right plantar ulcer remains healed. Right lateral foot ulcer is stable with dry necrotic tissue covering the ulcer. There is no redness, drainage or odor. The pressure areas on her right lateral 4th toe and right medial 5th toe are dry with necrotic tissue present. She denies any pain. Objective Data Objective Data Vital Signs: Vital Signs Temp Pulse Resp BP O2 Del Method 96.2 F L 56 L 20 H 163/56 H Room Air 03/23/22 13:41 03/23/22 13:41 03/23/22 13:41 03/23/22 13:41 03/16/22 13:52 Oxygen Delivery Method Room Air Weight: 124 lb Body Mass Index (BMI) 22.6 Charges/Coding Visit Charges Office Visits / Consults: 12224 OV L3 Est Physical Exam Const alert and oriented x3 General Appearance: cooperative HEENT normocephalic Head and Scalp: atraumatic Eyes General Eye: normal appearance of both eyes Lymph Lymphatic: no lymphedema noted Resp normal respiratory effort and clear to auscultation bilaterally Effort and Inspection: able to speak in complete sentences Cardio regular rate and regular rhythm GI non-tender Palpation: soft Extremity Extremity Narrative: Right pedal pulse palpable. Right toes have capillary refill <3 seconds. Right toes are cool to touch. Minimal edema on right foot. Skin Wound Narrative: Right medial plantar ulcer proximal to great toe remains healed. Right lateral foot ulcer is stable with dry necrotic tissue covering the ulcer.? There is no redness, drainage or odor. The pressure areas on her right lateral 4th toe and right medial 5th toe are necrotic, dry with no redness, drainage. Psych affect normal Appearance: well kempt Speech: normal speech Debridement Note Debridement Note No debridement was completed: No debridement was completed today Post-Debridement Measurements and Additional Note: Post-Debridement Measurements/Treatment CINTHYA - Nurse 1 - General Ulcer Assessment Start: 03/16/22 13:51 Freq: Status: Active Protocol: KELSIE Activity Type Activity Date Activity User E-sign Co-sign Detail Recorded Client Recorded Date Recorded By Document 03/16/22 13:52 MW [id number] 03/16/22 13:58 MW Document 03/23/22 13:41 DL [id number] 03/23/22 13:51 DL 03/16/22 03/23/22 13:52 13:41 - Today's Visit Information Type of service Follow-up Visit Follow-up Visit (Physician/DOG OR HORSE RACING OFFICIAL (Physician/DOG OR HORSE RACING OFFICIAL ) ) Arrival Mode Ambulatory Ambulatory Transfer Assistance None None Accompanied by Patient Identification Verified (Name & Yes Yes ) Patient Requires Transmission-Based No No Precautions Safety Precautions NA Height and Weight Body Mass Index (BMI) 22.6 22.6 BMI Classification Normal Normal Vital Signs Temperature (97.8 F-99.1 F) 96.7 F L 96.2 F L Temperature Source Temporal Temporal Pulse Rate (60-100) 91 56 L Pulse Location Monitor Monitor Respiratory Rate (12-18) 16 20 H Respiratory rate source Observation Observation Oxygen Delivery Method Room Air Blood Pressure (90/60-120/80) 103/49 L 163/56 H Blood Pressure Mean (mm Hg) 67 91 Source Monitor Monitor Position Sitting Blood Pressure Location Left Arm History Since Last Visit- (Skip if this is Patient's initial visit) Have you changed medications since your No No last visit? Any new allergies or adverse reactions No No Had a fall/change in ADL's that may No No increase risk of falls Signs or symptoms of abuse and/or No No neglect since last visit Have you been in the hospital since your No No last visit? Has dressing in place as prescribed Yes Yes Has compression in place as prescribed N/A Has offloadiing in place as prescribed N/A Yes Experienced any changes in pain level or No No management Left Footwear Regular Shoe Right Footwear Regular Shoe Pain Scale: 0-10 Numeric Is Patient Pain Free? Yes Yes WC - Nurse 1 - General Ulcer Measurement Start: 03/16/22 13:51 Freq: Status: Active Protocol: Activity Type Activity Date Activity User E-sign Co-sign Detail Recorded Client Recorded Date Recorded By Document 03/16/22 13:52 MW [id number] 03/16/22 13:58 MW Document 03/23/22 13:41 DL [id number] 03/23/22 13:51 DL 03/16/22 03/23/22 13:52 13:41 Wound Center Nurse 1 #7- R INNER 5TH TOE -Combined with other wound No Yes -Combined with (Name of Wound-Exactly #6 as it is documented) -Current Size (cm) - Length 1.5 1 -Current Size (cm) - Width 1.2 0.8 -Current Size (cm) - Depth 0.1 0.1 -Total Square Cm 1.80 0.8 -Date of Last Picture (Recall this 03/16/22 field) -Photo Taken Yes No -Epithelialization None Present -Tunneling No -Undermining/Tunneling No -Circular Undermining No -Exudate Amt None Present Medium -Exudate Type Serosanguineous -Wound Margin Flat & Intact Distinct, Outline Attached -Granulation Amt None Present (0 None Present (0 %) %) -Slough/Fibrin Yes -Necrosis Amt Large (67-100%) Large (67-100%) -Necrotic Tissue Type Eschar -Structure Exposed N/A Fascia,N/A -Texture (Damaris-wound Skin Appearance) Assessed Scarring -Moisture (Damaris-wound Skin Appearance) Assessed,Dry/ Dry/Scaly Scaly -Color (Damaris-wound Skin Appearance) Assessed No Abnormality -Temperature (Damaris-wound Skin No Abnormality No Abnormality Appearance) (Pt Warm) (Pt Warm) -Tenderness on Palpation (Damaris-wound No Skin Appearance) -Ulcer Cleansing Rinsed/ Irrigated with Saline -Foul Odor after Cleansing No No -Anesthetic Used 5% Lidocaine Gel #6- R INNER 4TH TOE -Combined with other wound No -Current Size (cm) - Length 1.3 1 -Current Size (cm) - Width 1.3 0.8 -Current Size (cm) - Depth 0.1 0.1 -Total Square Cm 1.69 0.8 -Date of Last Picture (Recall this 03/16/22 field) -Photo Taken Yes No -Epithelialization None Present -Tunneling No -Undermining/Tunneling No -Circular Undermining No -Exudate Amt None Present Medium -Exudate Type Serosanguineous -Wound Margin Distinct, Outline Attached -Granulation Amt None Present (0 None Present (0 %) %) -Granulation Quality N/A -Slough/Fibrin Yes -Necrosis Amt Large (67-100%) Large (67-100%) -Necrotic Tissue Type Eschar Eschar -Texture (Damaris-wound Skin Appearance) No Abnormality, Scarring Assessed -Moisture (Damaris-wound Skin Appearance) Assessed,Dry/ No Abnormality Scaly -Color (Damaris-wound Skin Appearance) No Abnormality, No Abnormality Assessed -Temperature (Damaris-wound Skin No Abnormality No Abnormality Appearance) (Pt Warm) (Pt Warm) -Tenderness on Palpation (Damaris-wound No Skin Appearance) -Ulcer Cleansing Rinsed/ Rinsed/ Irrigated with Irrigated with Saline Saline -Foul Odor after Cleansing No No -Anesthetic Used 5% Lidocaine Gel #5- R LATERAL FOOT -Combined with other wound No -Current Size (cm) - Length 5.8 6.2 -Current Size (cm) - Width 2.5 2.8 -Current Size (cm) - Depth 0.1 0.1 -Total Square Cm 14.50 17.36 -Date of Last Picture (Recall this 03/16/22 field) -Photo Taken Yes No -Epithelialization None Present -Tunneling No -Undermining/Tunneling No -Circular Undermining No -Exudate Amt None Present None Present -Wound Margin Flat & Intact Distinct, Outline Attached -Granulation Amt None Present (0 None Present (0 %) %) -Granulation Quality N/A -Slough/Fibrin Yes -Necrosis Amt Large (67-100%) Large (67-100%) -Necrotic Tissue Type Eschar Eschar -Structure Exposed N/A N/A -Texture (Damaris-wound Skin Appearance) No Abnormality, Rash Assessed -Moisture (Damaris-wound Skin Appearance) Assessed,Dry/ No Abnormality Scaly -Color (Damaris-wound Skin Appearance) No Abnormality, No Abnormality Assessed -Temperature (Damaris-wound Skin No Abnormality No Abnormality Appearance) (Pt Warm) (Pt Warm) -Tenderness on Palpation (Damaris-wound No No Skin Appearance) -Ulcer Cleansing Rinsed/ Rinsed/ Irrigated with Irrigated with Saline Saline -Foul Odor after Cleansing No No -Anesthetic Used 5% Lidocaine Gel - Nurse 2 - General Ulcer CM Notes Start: 03/16/22 13:51 Freq: Status: Active Protocol: Activity Type Activity Date Activity User E-sign Co-sign Detail Recorded Client Recorded Date Recorded By Document 03/16/22 14:50 [id number] 03/16/22 14:55 Document 03/23/22 14:04 [id number] 03/23/22 14:04 03/16/22 03/23/22 14:50 14:04 Wound Center Nurse 2 #7- R INNER 5TH TOE -Correct Patient No No -Correct Side, Site, Position No No -Correct Procedure No No -Procedure Performed No No -Wound/Ulcer Outcome Not Healed Not Healed #6- R INNER 4TH TOE -Correct Patient No No -Correct Side, Site, Position No No -Correct Procedure No No -Procedure Performed No No -Wound/Ulcer Outcome Not Healed Not Healed #5- R LATERAL FOOT -Correct Patient No No -Correct Side, Site, Position No No -Correct Procedure No No -Procedure Performed No No -Wound/Ulcer Outcome Not Healed Not Healed Pain Scale: 0-10 Numeric Is Patient Pain Free? Yes Yes - Nurse 3 - General Ulcer D/C NN Start: 03/16/22 13:51 Freq: Status: Active Protocol: Activity Type Activity Date Activity User E-sign Co-sign Detail Recorded Client Recorded Date Recorded By Document 03/16/22 15:05 [id number] 03/16/22 15:06 MW 03/16/22 15:05 Wound Care Nurse 3 #7- R INNER 5TH TOE -Other Dressing betadine -Primary Dressing Covered/Secured with Dry Gauze & Roll Gauze, Secured with Tape #6- R INNER 4TH TOE -Other Dressing betadine -Primary Dressing Covered/Secured with Dry Gauze & Roll Gauze, Secured with Tape #5- R LATERAL FOOT -Other Dressing betadine -Primary Dressing Covered/Secured with Dry Gauze & Roll Gauze, Secured with Tape Treatment Response Procedure Tolerated Well Pain Scale: 0-10 Numeric Is Patient Pain Free? Yes Teaching: Wound Center Dressing Your Wound -Person Taught Patient,Family -Teaching Method Discussion, Demonstration -Response to teaching Verbalize understanding WC - Visit Discharge Discharge Condition Stable Ambulatory Status Ambulatory Transportation Private Auto Accompanied by Medication Reconcilliation completed & No provided to patient/care provider Clinical Summary of Care Provided Yes Assessment/Plan Assessment/Plan (1) Ulcer of right foot due to type 2 diabetes mellitus: CODE(S): E11.621 - Type 2 diabetes mellitus with foot ulcer; L97.519 - Non-pressure chronic ulcer of other part of right foot with unspecified severity (2) Pressure ulcer of toe of right foot, unstageable: CODE(S): L89.890 - Pressure ulcer of other site, unstageable (3) Type 2 diabetes mellitus treated with insulin: CODE(S): E11.9 - Type 2 diabetes mellitus without complications; 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 Wound care - Betadine to the blackened scab on right lateral foot, covered with dry gauze daily. To the right lateral 4th toe and right medial 5th toe, place Betadine on these two areas, to keep them dry, place a thin piece of gauze between her toes to help keep the area dry. Off load - She had her Darco shoe modified to prevent pressure to the right lateral foot ulcer. She went to the foot and ankle clinic to have them modify her shoe to prevent pressure on her right lateral foot. Stressed the importance of making sure that her shoe is not putting pressure on the side of her right foot and pressing her toes together. Place the gauze between her right 4th and 5th toes and making sure it is not too thick. Stressed to watch for changes in these toes and to notify us if there are changes in her them and in the the lateral foot ulcer. Keep foot elevated when sitting. Completed Levaquin. She has arterial compromise and is seeing Dr. Donato. Encourage her to eat low carbohydrate and high protein, low sodium diet to help with wound healing, controlling blood sugars and HTN. Follow up one week.
[2022-03-30 09:31] VITALS: BP 151/49; PULSE 68; RESP 16; TEMP 35.6; BMI 22.6
--- NOTE | 2022-03-30 11:04 | HP.PCM_ITS ---
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 Patient underwent recent revascularization per Dr. Donato on 03/24/2022 which opened up a SFA occlusion. Patient denies constitutional symptoms been ambulating in surgical shoe. Notes some pain to the wound site. Patient is a poorly controlled diabetic type II w ith the last documented A1c being 10.91-year prior. There has not been improvement to the patient's diet since this time. FORMERLY [facility], [facility] Medical History Abscess of right elbow Acute pancreatitis Arthritis Back problem Chest pain Diabetes Elevated hemoglobin A1c Essential (primary) hypertension History of deep venous thrombosis (01/2020) Hormone deficiency Hyperlipidemia Mass of skin of right elbow Seasonal allergies Type 2 diabetes mellitus Home Medications metoprolol tartrate 50 mg tablet 50 mg PO DAILY BLOOD PRESSURE 03/06/19 [History Last Taken 02/17/21] insulin degludec 200 unit/mL (3 mL) subcutaneous pen (Tresiba FlexTouch U-200 insulin) 80 unit subcut BID diabetes 01/21/21 [History Last Taken 02/17/21] lisinopril 10 mg tablet 10 mg PO DAILY BP 02/17/21 [History Last Taken 02/17/21] diclofenac sodium 1 % topical gel (Voltaren Arthritis Pain) 2 g topical TID PRN PRN pain #100 grams 04/02/21 [Rx Last Taken Unknown] rosuvastatin 20 mg tablet (Crestor) 20 mg PO DAILY #90 tabs 09/08/21 [Rx Last Taken Unknown] acetaminophen 325 mg tablet (Tylenol) 650 mg PO Q4H PRN PRN Pain 1-10 Or Fever #0 tabs 12/09/21 [Rx Last Taken Unknown] apixaban 5 mg tablet 5 mg PO BID #60 tabs 12/09/21 [Rx Last Taken 03/24/22] tramadol 50 mg tablet 50 mg PO Q8H PRN Pain 02/16/22 [History Last Taken Unknown] baclofen 10 mg tablet 10 mg PO DAILY 03/04/22 [History Last Taken Unknown] naproxen 500 mg tablet 500 mg PO PRN PRN Pain 03/04/22 [History Last Taken Unknown] pantoprazole 40 mg tablet,delayed release 40 mg PO DAILY 03/04/22 [History Last Taken Unknown] acetaminophen 300 mg-codeine 15 mg tablet 1 tab PO Q6H PRN pain 7 days #28 tabs 03/05/22 [Rx Last Taken Unknown] hydrocodone-acetaminophen 5-325mg 5mg-325mg 1 tab PO Q6H PRN PRN Pain 1 day #4 TABLETS 03/14/22 [Rx Last Taken Unknown] doxycycline monohydrate 100 mg tablet 100 mg PO BID 14 days #28 tabs 03/16/22 [Rx Last Taken Unknown] pantoprazole 40 mg tablet,delayed release 40 mg PO DAILY #60 tabs 03/19/22 [Rx Last Taken Unknown] sucralfate 1 gram tablet (Carafate) 1 g PO QACHS #60 tabs 03/19/22 [Rx Last Taken Unknown] clopidogrel 75 mg tablet (Plavix) 75 mg PO DAILY #90 tabs 03/25/22 [Rx Last Taken Unknown] methocarbamol 500 mg tablet 500 mg PO TID PRN Muscle pain/spasm #30 tabs 03/26/22 [Rx Last Taken Unknown] oxycodone-acetaminophen 5 mg-325 mg tablet (Percocet) 1 tab PO Q6H PRN pain 3 days #12 tabs 03/26/22 [Rx Last Taken Unknown] Allergy/AdvReac Type Severity Reaction Status Date / Time diphenhydramine Allergy Swelling Verified 03/26/22 21:42 [facility] Family History Unknown Breast cancer Colon cancer Myocardial infarction Hypertension Hyperlipidemia Father Heart disease Hypertension Mother Diabetes Hypertension Kidney disease Liver disease Other Arthritis Surgical History History of Social History household members: spouse housing: house history of recent travel: No Smoking Status: Never smoker alcohol intake: never substance use type: does not use what type of physical activity do you participate in: none ROS Constitutional Constitutional: Denies change in weight, chills or headache(s) Eyes Eyes: Denies acute decrease in peripheral vision, change in eye color or change in vision ENT HEENT: Denies bleeding gums, change in voice or epistaxis Cardiovascular Cardiovascular: Denies abdominal edema, abdominal pain or chest pain with activity Respiratory/Chest Respiratory/Chest: Denies change in phlegm color, chest congestion or dyspnea Gastrointestinal Gastrointestinal: Denies abdominal pain, belching or bloating Genitourinary Genitourinary: Denies anuria, burning urination or change in libido Musculoskeletal Musculoskeletal: Denies atrophy, back pain or deformity Vital Signs Vital Signs Vital Signs: 03/30/22 09:31 Temperature 96.0 F L Temperature Source Temporal Pulse Rate 68 Respiratory Rate 16 Blood Pressure 151/49 H Blood Pressure Mean 83 Blood Pressure Source Monitor Blood Pressure Position Sitting Blood Pressure Location Left Arm Oxygen Delivery Method Room Air Weight Weight: 56.245 kg Body Mass Index (BMI) 22.6 Physical Exam Narrative Patient alert oriented to person place and time x3. Upon examination today dorsalis pedis and posterior tibial pulses on the right lower extremity were monophasic. Atrophic skin changes noted. Neurologic light touch protective sensation diminished to bilateral feet. Reestablish mid tibia. Dermatologic dry gangrenous eschar noted to the distal lateral right forefoot encompassing the fifth metatarsal head and proximal shaft of the fifth metatarsal laterally as well as approximately 60% of the distal fifth digit and includes the medial aspect of the fourth digit on the right lower extremity. No signs of infection deep probing. This appears to be well adhered at this time. The right fifth digit appears to be atrophic in nature Musculoskeletal: No gross deformities noted. Muscular strength diminished to bilateral lower extremity 4 out of 5 to all muscular groups. Debridement Note Debridement Note Post-Debridement Measurements and Additional Note: Post-Debridement Measurements/Treatment - Nurse 1 - General Ulcer Assessment Start: 03/16/22 13:51 Freq: Status: Active Protocol: [email or web address].[email or web address] Activity Type Activity Date Activity User E-sign Co-sign Detail Recorded Client Recorded Date Recorded By Document 03/16/22 13:52 MW [id number] 03/16/22 13:58 MW Document 03/23/22 13:41 DL [id number] 03/23/22 13:51 DL Document 03/30/22 09:31 MW [id number] 03/30/22 09:43 MW 03/16/22 03/23/22 03/30/22 13:52 13:41 09:31 WC - Today's Visit Information Type of service Follow-up Visit Follow-up Visit Follow-up Visit (Physician/COSTUMING SUPERVISOR (Physician/COSTUMING SUPERVISOR (Physician/COSTUMING SUPERVISOR ) ) ) Arrival Mode Ambulatory Ambulatory Ambulatory Transfer Assistance None None None Accompanied by Patient Identification Verified (Name & Yes Yes Yes ) Patient Requires Transmission-Based No No No Precautions Safety Precautions NA NA Height and Weight Body Mass Index (BMI) 22.6 22.6 22.6 BMI Classification Normal Normal Normal Vital Signs Temperature (97.8 F-99.1 F) 96.7 F L 96.2 F L 96.0 F L Temperature Source Temporal Temporal Temporal Pulse Rate (60-100) 91 56 L 68 Pulse Location Monitor Monitor Monitor Respiratory Rate (12-18) 16 20 H 16 Respiratory rate source Observation Observation Observation Oxygen Delivery Method Room Air Room Air Blood Pressure (90/60-120/80) 103/49 L 163/56 H 151/49 H Blood Pressure Mean 67 91 83 Source Monitor Monitor Monitor Position Sitting Sitting Blood Pressure Location Left Arm Left Arm History Since Last Visit- (Skip if this is Patient's initial visit) Have you changed medications since your No No No last visit? Any new allergies or adverse reactions No No No Had a fall/change in ADL's that may No No No increase risk of falls Signs or symptoms of abuse and/or No No No neglect since last visit Have you been in the hospital since your No No No last visit? Has dressing in place as prescribed Yes Yes Yes Has compression in place as prescribed N/A N/A Has offloadiing in place as prescribed N/A Yes N/A Experienced any changes in pain level or No No No management Left Footwear Regular Shoe Regular Shoe Right Footwear Regular Shoe Surgical Shoe with pressure relief insole Pain Scale: 0-10 Numeric Is Patient Pain Free? Yes Yes No - Nurse 1 - General Ulcer Measurement Start: 03/16/22 13:51 Freq: Status: Active Protocol: Activity Type Activity Date Activity User E-sign Co-sign Detail Recorded Client Recorded Date Recorded By Document 03/16/22 13:52 MW [id number] 03/16/22 13:58 MW Document 03/23/22 13:41 DL [id number] 03/23/22 13:51 DL Document 03/30/22 09:31 MW [id number] 03/30/22 09:43 MW 03/16/22 03/23/22 03/30/22 13:52 13:41 09:31 Wound Center Nurse 1 #7- R INNER 5TH TOE -Combined with other wound No Yes No -Combined with (Name of Wound-Exactly #6 as it is documented) -Current Size (cm) - Length 1.5 1 1.8 -Current Size (cm) - Width 1.2 0.8 1.7 -Current Size (cm) - Depth 0.1 0.1 0.1 -Total Square Cm 1.80 0.8 3.06 -Date of Last Picture (Recall this 03/16/22 03/30/22 field) -Photo Taken Yes No Yes -Epithelialization None Present None Present -Tunneling No No -Undermining/Tunneling No No -Circular Undermining No No -Exudate Amt None Present Medium None Present -Exudate Type Serosanguineous -Wound Margin Flat & Intact Distinct, Flat & Intact Outline Attached -Granulation Amt None Present (0 None Present (0 None Present (0 %) %) %) -Granulation Quality N/A -Slough/Fibrin Yes Yes -Necrosis Amt Large (67-100%) Large (67-100%) Large (67-100%) -Necrotic Tissue Type Eschar Eschar -Structure Exposed N/A Fascia,N/A N/A -Texture (Damaris-wound Skin Appearance) Assessed Scarring No Abnormality, Assessed -Moisture (Damaris-wound Skin Appearance) Assessed,Dry/ Dry/Scaly Assessed,Dry/ Scaly Scaly -Color (Damaris-wound Skin Appearance) Assessed No Abnormality No Abnormality, Assessed -Temperature (Damaris-wound Skin No Abnormality No Abnormality No Abnormality Appearance) (Pt Warm) (Pt Warm) (Pt Warm) -Tenderness on Palpation (Damaris-wound No No Skin Appearance) -Ulcer Cleansing Rinsed/ Not Cleansed Irrigated with Saline -Foul Odor after Cleansing No No No -Anesthetic Used 5% Lidocaine Gel #6- R INNER 4TH TOE -Combined with other wound No No -Current Size (cm) - Length 1.3 1 1.3 -Current Size (cm) - Width 1.3 0.8 1.0 -Current Size (cm) - Depth 0.1 0.1 0.1 -Total Square Cm 1.69 0.8 1.30 -Date of Last Picture (Recall this 03/16/22 03/30/22 field) -Photo Taken Yes No Yes -Epithelialization None Present None Present -Tunneling No No -Undermining/Tunneling No No -Circular Undermining No No -Exudate Amt None Present Medium None Present -Exudate Type Serosanguineous -Wound Margin Distinct, Flat & Intact Outline Attached -Granulation Amt None Present (0 None Present (0 None Present (0 %) %) %) -Granulation Quality N/A N/A -Slough/Fibrin Yes Yes -Necrosis Amt Large (67-100%) Large (67-100%) Large (67-100%) -Necrotic Tissue Type Eschar Eschar Adherent Slough -Structure Exposed N/A -Texture (Damaris-wound Skin Appearance) No Abnormality, Scarring Assessed -Moisture (Damaris-wound Skin Appearance) Assessed,Dry/ No Abnormality Assessed,Dry/ Scaly Scaly -Color (Damaris-wound Skin Appearance) No Abnormality, No Abnormality No Abnormality, Assessed Assessed -Temperature (Damaris-wound Skin No Abnormality No Abnormality No Abnormality Appearance) (Pt Warm) (Pt Warm) (Pt Warm) -Tenderness on Palpation (Damaris-wound No Yes Skin Appearance) -Ulcer Cleansing Rinsed/ Rinsed/ Irrigated with Irrigated with Saline Saline -Foul Odor after Cleansing No No No -Anesthetic Used 5% Lidocaine Gel #5- R LATERAL FOOT -Combined with other wound No No -Current Size (cm) - Length 5.8 6.2 6.9 -Current Size (cm) - Width 2.5 2.8 2.5 -Current Size (cm) - Depth 0.1 0.1 0.1 -Total Square Cm 14.50 17.36 17.25 -Date of Last Picture (Recall this 03/16/22 03/30/22 field) -Photo Taken Yes No Yes -Epithelialization None Present None Present -Tunneling No No -Undermining/Tunneling No No -Circular Undermining No No -Exudate Amt None Present None Present None Present -Wound Margin Flat & Intact Distinct, Flat & Intact Outline Attached -Granulation Amt None Present (0 None Present (0 None Present (0 %) %) %) -Granulation Quality N/A N/A -Slough/Fibrin Yes Yes -Necrosis Amt Large (67-100%) Large (67-100%) Large (67-100%) -Necrotic Tissue Type Eschar Eschar Adherent Slough -Structure Exposed N/A N/A N/A -Texture (Damaris-wound Skin Appearance) No Abnormality, Rash No Abnormality, Assessed Assessed -Moisture (Damaris-wound Skin Appearance) Assessed,Dry/ No Abnormality Assessed,Dry/ Scaly Scaly -Color (Damaris-wound Skin Appearance) No Abnormality, No Abnormality No Abnormality, Assessed Assessed -Temperature (Damaris-wound Skin No Abnormality No Abnormality No Abnormality Appearance) (Pt Warm) (Pt Warm) (Pt Warm) -Tenderness on Palpation (Damaris-wound No No No Skin Appearance) -Ulcer Cleansing Rinsed/ Rinsed/ Not Cleansed Irrigated with Irrigated with Saline Saline -Foul Odor after Cleansing No No No -Anesthetic Used 5% Lidocaine Gel Lower Limb Edema Present No WC - Nurse 2 - General Ulcer CM Notes Start: 03/16/22 13:51 Freq: Status: Active Protocol: Activity Type Activity Date Activity User E-sign Co-sign Detail Recorded Client Recorded Date Recorded By Document 03/16/22 14:50 [id number] 03/16/22 14:55 Document 03/23/22 14:04 [id number] 03/23/22 14:04 Document 03/30/22 10:05 [id number] 03/30/22 10:16 03/16/22 03/23/22 03/30/22 14:50 14:04 10:05 Wound Center Nurse 2 #7- R INNER 5TH TOE -Correct Patient No No No -Correct Side, Site, Position No No No -Correct Procedure No No No -Procedure Performed No No No -Wound/Ulcer Outcome Not Healed Not Healed Not Healed #6- R INNER 4TH TOE -Correct Patient No No No -Correct Side, Site, Position No No No -Correct Procedure No No No -Procedure Performed No No No -Wound/Ulcer Outcome Not Healed Not Healed Not Healed #5- R LATERAL FOOT -Correct Patient No No No -Correct Side, Site, Position No No No -Correct Procedure No No No -Procedure Performed No No No -Wound/Ulcer Outcome Not Healed Not Healed Not Healed Pain Scale: 0-10 Numeric Is Patient Pain Free? Yes Yes Yes WC - Nurse 3 - General Ulcer D/C NN Start: 03/16/22 13:51 Freq: Status: Active Protocol: Activity Type Activity Date Activity User E-sign Co-sign Detail Recorded Client Recorded Date Recorded By Document 03/16/22 15:05 MW [id number] 03/16/22 15:06 MW Document 03/30/22 10:29 MW [id number] 03/30/22 10:30 MW 03/16/22 03/30/22 15:05 10:29 Wound Care Nurse 3 #7- R INNER 5TH TOE -Ulcer Cleansing Not Cleansed -Foul Odor after Cleansing No -Negative Pressure Wound Therapy N/A -Other Dressing betadine betadine -Primary Dressing Covered/Secured with Dry Gauze & Dry Gauze & Roll Gauze, Roll Gauze, Secured with Secured with Tape Tape #6- R INNER 4TH TOE -Ulcer Cleansing Not Cleansed -Foul Odor after Cleansing No -Negative Pressure Wound Therapy N/A -Other Dressing betadine betadine -Primary Dressing Covered/Secured with Dry Gauze & Dry Gauze & Roll Gauze, Roll Gauze, Secured with Secured with Tape Tape #5- R LATERAL FOOT -Ulcer Cleansing Not Cleansed -Other Dressing betadine betadine -Primary Dressing Covered/Secured with Dry Gauze & Dry Gauze & Roll Gauze, Roll Gauze, Secured with Secured with Tape Tape Treatment Response Procedure Procedure Tolerated Well Tolerated Well Pain Scale: 0-10 Numeric Is Patient Pain Free? Yes Yes Teaching: Wound Center Dressing Your Wound -Person Taught Patient,Family Patient,Family -Teaching Method Discussion, Discussion, Demonstration Demonstration -Response to teaching Verbalize Verbalize understanding understanding WC - Visit Discharge Discharge Condition Stable Stable Ambulatory Status Ambulatory Ambulatory Transportation Private Auto Private Auto Accompanied by Medication Reconcilliation completed & No No provided to patient/care provider Clinical Summary of Care Provided Yes Yes Assessment/Plan Assessment/Plan (1) Peripheral vascular disease, unspecified: CODE(S): I73.9 - Peripheral vascular disease, unspecified PLAN: Exam performed. Reviewed operative report from 03/24/22 Dr. Donato. Appears patient has si gnificant calcification of lower extremity arteries; however, he was able to open up SFA occlusion. Based on wound appearance with dry gangrenous appearance and significant inclusion of the fifth digit I discussed with the patient in great detail the plan of care. At this point I have recommended complete nonweightbearing to the right lower extremity extremity to prevent any additional tissue trauma in setting of peripheral vascular disease. I have recommended proceeding with a right fifth digit and partial fifth ray resection to the right lower extremity to clear gangrenous necrotic nonviable tissue and attempt to get a soft tissue closure and to allow return to ambulation. Discussed with patient that poorly controlled blood sugar in diet will prevent wound healing and is causing damage systemically to other organ system including but not limited to eyes kidneys heart blood vessels neurovascular systems. Referring patient over to diabetes education. Dressing wounds daily with Betadine Adaptic DSD. We will continue to follow patient weekly to ensure no acute infection sets in. Follow-up in 1 week. (2) Type 2 diabetes mellitus with diabetic polyneuropathy: CODE(S): E11.42 - Type 2 diabetes mellitus with diabetic polyneuropathy (3) Non-pressure chronic ulcer of other part of right foot with fat layer exposed: CODE(S): L97.512 - Non-pressure chronic ulcer of other part of right foot with fat layer exposed
== END 2022-04-03 23:59 | disposition home or self-care (01) ==
LOC: WC 09:30
PROVIDERS: PCP Family Medicine Geriatric Medicine; Visit Provider Podiatrist
DX: E11.621 Type 2 diabetes mellitus with foot ulcer (principal); E11.52 Type 2 diabetes mellitus with diabetic peripheral angiopathy with gangrene; L89.890 Pressure ulcer of other site, unstageable; E11.51 Type 2 diabetes mellitus with diabetic peripheral angiopathy without gangrene; Z79.4 Long term (current) use of insulin; I10 Essential (primary) hypertension; E78.5 Hyperlipidemia, unspecified; Z79.01 Long term (current) use of anticoagulants; Z86.718 Personal history of other venous thrombosis and embolism; Z86.711 Personal history of pulmonary embolism; Z79.02 Long term (current) use of antithrombotics/antiplatelets; Z79.899 Other long term (current) drug therapy
CPT/HCPCS: 99213; 99214; G0463

== ENCOUNTER 2022-04-05 18:33 | Emergency (ER) | payer MEDICARE, SELFPAY ==
[2022-04-05 18:34] VITALS: BP 117/62; PULSE 89; RESP 16; TEMP 36.4; O2SAT 100; BMI 21.0
--- NOTE | 2022-04-05 20:30 | RAD_ITS ---
STUDY: X-RAY CHEST REASON FOR EXAM: Female, 72 years old. chest pain TECHNIQUE: Single AP portable view of the chest. COMPARISON: None. FINDINGS: The lungs are clear and expanded. Slightly elevated right hemidiaphragm which is unchanged. Normal size heart. Normal mediastinum and coco. Normal visualized pulmonary arteries. Normal visualized aortic arch and descending thoracic aorta. Normal visualized thoracic spine. Normal visualized ribs, clavicles, and shoulders. There is no demonstrated abnormality of the visualized soft tissue structures of the upper abdomen. RAD/Chest 1 View (Portable) IMPRESSION: No active disease. Electronically Signed: Jaydon Barahona MD at 21:46 EST ,
--- NOTE | 2022-04-05 20:32 | EKG12_ITS ---
Test Reason : CP Blood Pressure : / mmHG Vent. Rate : 081 BPM Atrial Rate : 081 BPM P-R Int : 114 ms QRS Dur : 076 ms QT Int : 372 ms P-R-T Axes : 037 -22 081 degrees QTc Int : 432 ms Normal sinus rhythm Left ventricular hypertrophy with repolarization abnormality ( R in aVL ) Abnormal ECG Confirmed by ZION KLEIN, MAICOL ([id number]), editorial director CHECO VELASCO ([id number]) on 04/07/2022 9:27:00 AM Referred By: Confirmed By:MAICOL DONOVAN MD
--- NOTE | 2022-04-05 20:37 | ED.VIS.CHEST ---
HPI <WAYNE Cook - Last Filed: 04/05/22 23:04> History of Present Illness Chief Complaint: Chest Pain Narrative Narrative: Patient presents with constant midsternal chest pain that radiates to her back that started later this afternoon. Patient has been seen in the emergency department multiple times over the past month for this issue. She states the pain feels similar today to how it did during those visits, however, the pain never radiated to her back before. 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 Patient states she will be having an endoscopy tomorrow morning to determine if her chest pain is GI related. Patient states the pain does worsen when she takes a deep breath. She denies nausea, vomiting, fever, and shortness of breath. [facility] <WAYNE Cook - Last Filed: 04/05/22 23:04> [facility] Medical History Abscess of right elbow Acute pancreatitis Arthritis Back problem Cardiology follow-up encounter Chest pain Diabetes DVT (deep venous thrombosis) Elevated hemoglobin A1c Essential (primary) hypertension Gastric reflux High cholesterol History of deep venous thrombosis (01/2020) History of echocardiogram Hormone deficiency Hyperlipidemia Hypertension Mass of skin of right elbow Non-smoker Post-menopausal Seasonal allergies Type 2 diabetes mellitus Wears glasses Home Medications metoprolol tartrate 50 mg tablet 50 mg PO DAILY BLOOD PRESSURE 03/06/19 [History Last Taken 02/17/21] insulin degludec 200 unit/mL (3 mL) subcutaneous pen (Tresiba FlexTouch U-200 insulin) 80 unit subcut BID diabetes 01/21/21 [History Last Taken 02/17/21] lisinopril 10 mg tablet 10 mg PO DAILY BP 02/17/21 [History Last Taken 02/17/21] diclofenac sodium 1 % topical gel (Voltaren Arthritis Pain) 2 g topical TID PRN PRN pain #100 grams 04/02/21 [Rx Last Taken Unknown] rosuvastatin 20 mg tablet (Crestor) 20 mg PO DAILY #90 tabs 09/08/21 [Rx Last Taken Unknown] acetaminophen 325 mg tablet (Tylenol) 650 mg PO Q4H PRN PRN Pain 1-10 Or Fever #0 tabs 12/09/21 [Rx Last Taken Unknown] apixaban 5 mg tablet 5 mg PO BID #60 tabs 12/09/21 [Rx Last Taken 03/24/22] tramadol 50 mg tablet 50 mg PO Q8H PRN Pain 02/16/22 [History Last Taken Unknown] sucralfate 1 gram tablet (Carafate) 1 g PO QACHS #60 tabs 03/19/22 [Rx Last Taken Unknown] clopidogrel 75 mg tablet (Plavix) 75 mg PO DAILY #90 tabs 03/25/22 [Rx Last Taken Unknown] esomeprazole magnesium 20 mg capsule,delayed release (Nexium 24HR) 20 mg PO PRN PRN GERD 04/02/22 [History Last Taken Unknown] Allergy/AdvReac Type Severity Reaction Status Date / Time diphenhydramine Allergy Swelling Verified 04/05/22 18:37 [From Gabi] Family History Unknown Breast cancer Colon cancer Myocardial infarction Hypertension Hyperlipidemia Father Heart disease Hypertension Mother Diabetes Hypertension Kidney disease Liver disease Other Arthritis Surgical History History of Social History household members: spouse housing: house history of recent travel: No Smoking Status: Never smoker alcohol intake: never substance use type: does not use what type of physical activity do you participate in: none ROS <WAYNE Cook - Last Filed: 04/05/22 23:04> ROS ED Constitutional Constitutional ED: Denies chills, fever(s) or sweats Eyes Eyes: Denies blurry vision, change in vision or diplopia ENT ENT ED: Denies ear pain, rhinorrhea or sore throat Cardiovascular Cardiovascular: Reports chest pain; Denies palpitations or racing heartbeat Respiratory/Chest Respiratory/Chest: Denies cough, dyspnea or dyspnea on exertion Gastrointestinal Gastrointestinal: Denies abdominal pain, diarrhea, nausea or vomiting Genitourinary Genitourinary ED: Denies dysuria, hematuria or urinary frequency Musculoskeletal Musculoskeletal: Reports back pain; Denies arthralgias or myalgias Integumentary Denies abscess, Abrasions or rash Neurologic Neurologic: Denies headache(s), paresthesias or weakness Psychiatric Psychiatric: Denies anxiety, depression or suicidal ideation Allergic/Immunologic Allergic/Immunologic ED: Denies mouth swelling, tongue swelling or urticaria EXAM <WAYNE Cook - Last Filed: 04/05/22 23:04> Physical Exam Const Vital Signs: 04/05/22 18:34 04/05/22 21:30 04/05/22 21:30 Temperature 97.5 F L Temperature Source Temporal Pulse Rate 89 81 Respiratory Rate 16 Blood Pressure 117/62 Blood Pressure Mean 80 Pulse Ox 100 98 Oxygen Delivery Method Room Air Room Air Room Air Positive well nourished and well developed General Appearance ED: well developed and NAD HEENT Reports moist mucous membranes normocephalic and atraumatic Eyes PERRL and EOMs intact bilaterally Neck no lymphadenopathy and supple Chest Wall inspection of chest normal Chest Narrative: Patient does have reproducible anterior chest wall pain to palpation around the xiphoid process. Resp normal respiratory effort and clear to auscultation bilaterally Cardio regular rate, regular rhythm and no murmurs GI soft to palpation, non-tender, non-distended and no masses Extremity normal to inspection Neuro oriented x3, CN's II-XII intact bilaterally, no sensory deficits noted and gait normal Sensorium / Orientation: awake and alert Motor Exam: strength 5/5 throughout Psych mental status grossly normal Skin no rashes or lesions noted and no wounds <Dr. Dominguez Zavala MD - Last Filed: 04/05/22 22:23> Physical Exam Const Vital Signs: 04/05/22 18:34 04/05/22 21:30 04/05/22 21:30 Temperature 97.5 F L Temperature Source Temporal Pulse Rate 89 81 Respiratory Rate 16 Blood Pressure 117/62 Blood Pressure Mean 80 Pulse Ox 100 98 Oxygen Delivery Method Room Air Room Air Room Air MDM <WAYNE Cook - Last Filed: 04/05/22 23:04> [facility] MDM Narrative Medical decision making narrative: I have personally performed a face to face assessment of the patient and have reviewed the HARJIT Note. I performed a substantive portion of the visit including all aspects of the following. My bullard findings include: History is [DKI-2-avyz-old female history of diabetes. Complaining of midsternal chest pain without radiation. Denies nausea, diaphoresis or dyspnea. Nonexertional. No cardiac history. History of DVTs on Eliquis. No cardiac history and no prior stress test or heart cath. Has been seen multiple times for this with negative work-ups.] Exam is [well-appearing 72-year-old female. Vital signs stable afebrile. H EENT exam unremarkable. Neck nontender. Lungs clear. Heart regular rhythm no murmur. Chest wall nontender. Abdomen soft, mild epigastric tenderness. No rebound, guarding or rigidity. Moving all 4 extremities. Equal symmetrical radial pulses. Calves are nontender without edema. Neurologic exam normal.] Medical Decision Making [72-year-old with epigastric and midsternal chest pain. Initial work-up negative. Prior work-ups negative. She be given GI cocktail and Protonix and reassess.] Other additions or changes: [None] Patient has been given a GI cocktail with Protonix. Upon reexamination patient states that her chest pain has improved and would like to go home. Patient's chest pain could be GI related. She is having an endoscopy tomorrow morning. She has not had a cardiac stress test or cardiac cath. She has been seen multiple times for this issue with negative work-ups. She will be following up with PCP. She has been given return instructions. I am comfortable with her discharging home in stable condition. Patient is comfortable with plan. Lab Data Lab results narrative: CBC White count 11.8. H&H 12.8 and 38. Electrolytes unremarkable gap of 4. BUN 37 creatinine 1. Glucose 214. Initial troponin 21. Labs: Laboratory Results - last 24 hr 04/05/22 04/05/22 21:45 21:45 WBC 11.8 H RBC 4.61 Hgb 12.8 Hct 38.2 MCV 82.9 MCH 27.8 MCHC 33.5 RDW Std Deviation 49.9 H RDW Coeff of Melvina 16.6 H Plt Count 307 MPV 8.9 Immature Gran % (Auto) 0.400 Neut % (Auto) 69.0 Lymph % (Auto) 24.1 Jones % (Auto) 6.3 Eos % (Auto) 0.1 Baso % (Auto) 0.1 Absolute Neuts (auto) 8.2 H Absolute Lymphs (auto) 2.85 Nucleated RBC % 0 Sodium 134 L Potassium 4.6 Chloride 105 Carbon Dioxide 25.0 Anion Gap 4 L BUN 37 H Creatinine 1.03 H Estim Creat Clear Calc 38.47 Est GFR (MDRD) Af Amer 68 Est GFR (MDRD) Non-Af 56 L BUN/Creatinine Ratio 35.9 H Glucose 214 H Calcium 9.3 Troponin I High Sens 21 Radiography Diagnostic Testing: Clinical Impression(s) from Imaging Studies Chest X-Ray 04/05/22 20:30 IMPRESSION: No active disease. Electronically Signed: Jaydon Barahona MD at 21:46 EST , Chest x-ray, portable, single view interpreted by myself (attending ED physician) and radiologist shows no acute abnormality. Normal cardiac silhouette mediastinum. Normal lungs. EKG Initial EKG: Comments: 111 BPM. Left ventricular hypertrophy with repolarization abnormality. No ST elevation. This EKG has also been reviewed and interpreted by attending ED physician. Prior EKG tracings: available for review (Prior EKG from 03/26/2022 shows normal sinus rhythm and nonspecific ST changes without ST elevation.) Follow-up EKG: Comments: 81 bpm, normal sinus rhythm, left ventricular hypertrophy with repolarization abnormality. No ST elevation. This EKG has also been reviewed and interpreted by attending ED physician. <Dr. Dominguez Zavala MD - Last Filed: 04/05/22 22:23> [facility] Narrative Medical decision making narrative: I have personally performed a face to face assessment of the patient and have reviewed the HARJIT Note. I performed a substantive portion of the visit including all aspects of the following. My blulard findings include: History is [SDP-8-wjnc-old female history of diabetes. Complaining of midsternal chest pain without radiation. Denies nausea, diaphoresis or dyspnea. Nonexertional. No cardiac history. History of DVTs on Eliquis. No cardiac history and no prior stress test or heart cath. Has been seen multiple times for this with negative work-ups.] Exam is [well-appearing 72-year-old female. Vital signs stable afebrile. H EENT exam unremarkable. Neck nontender. Lungs clear. Heart regular rhythm no murmur. Chest wall nontender. Abdomen soft, mild epigastric tenderness. No rebound, guarding or rigidity. Moving all 4 extremities. Equal symmetrical radial pulses. Calves are nontender without edema. Neurologic exam normal.] Medical Decision Making [72-year-old with epigastric and midsternal chest pain. Initial work-up negative. Prior work-ups negative. She be given GI cocktail and Protonix and reassess.] Other additions or changes: [None] Lab Data Attestation: I reviewed the patient's lab results. Lab results narrative: CBC White count 9.8. H&H 12.8 and 38. Electrolytes unremarkable gap of 4. BUN 37 creatinine 1. Glucose 214. Initial troponin 21. Labs: Laboratory Results - last 24 hr 04/05/22 04/05/22 21:45 21:45 WBC 11.8 H RBC 4.61 Hgb 12.8 Hct 38.2 MCV 82.9 MCH 27.8 MCHC 33.5 RDW Std Deviation 49.9 H RDW Coeff of Melvina 16.6 H Plt Count 307 MPV 8.9 Immature Gran % (Auto) 0.400 Neut % (Auto) 69.0 Lymph % (Auto) 24.1 Jones % (Auto) 6.3 Eos % (Auto) 0.1 Baso % (Auto) 0.1 Absolute Neuts (auto) 8.2 H Absolute Lymphs (auto) 2.85 Nucleated RBC % 0 Sodium 134 L Potassium 4.6 Chloride 105 Carbon Dioxide 25.0 Anion Gap 4 L BUN 37 H Creatinine 1.03 H Estim Creat Clear Calc 38.47 Est GFR (MDRD) Af Amer 68 Est GFR (MDRD) Non-Af 56 L BUN/Creatinine Ratio 35.9 H Glucose 214 H Calcium 9.3 Troponin I High Sens 21 Radiography Chest X-Ray - ED: 1 View, Read by ED Physician, Read by Radiologist, Heart, Lungs, Mediastinum, Bony Structures, No Acute Disease and Chronic Changes Diagnostic Testing: Clinical Impression(s) from Imaging Studies Chest X-Ray 04/05/22 20:30 IMPRESSION: No active disease. Electronically Signed: Jaydon Barahona MD at 21:46 EST , Chest x-ray, portable, single view interpreted by myself and radiologist shows no acute abnormality. Normal cardiac silhouette mediastinum. Normal lungs. Discharge Plan Triage Chief Complaint: Chest Pain ED Midlevel Provider: Julia Izquierdo ED Provider: Dominguez Zavala Dx/Rx/DC Orders Clinical Impression: Chest pain of uncertain etiology Instructions: ED Chest Pain, Uncertain Cause Prescriptions: No Action rosuvastatin [Crestor] 20 mg tablet 20 mg PO DAILY Qty: 90 3RF sucralfate [Carafate] 1 gram tablet 1 g PO QACHS Qty: 60 0RF metoprolol tartrate 50 MG tablet 50 mg PO DAILY insulin degludec [Tresiba FlexTouch U-200] 200 unit/mL (3 mL) insulin pen 80 unit SUBCUT BID Hold Instructions: [place] [address]. Hold if glucose less than 130 mg/dl lisinopril 10 mg tablet 10 mg PO DAILY diclofenac sodium [Voltaren Arthritis Pain] 1 % gel 2 g topical TID PRN PRN (Reason: pain) Qty: 100 2RF acetaminophen [Tylenol] 325 mg Tablet 650 mg PO Q4H PRN PRN (Reason: Pain 1-10 Or Fever) Qty: 0 0RF Rx Instructions: For mild to moderate pain apixaban 5 mg Tablet 5 mg PO BID Qty: 60 0RF Label Comments: STOP DAY PRIOR TO OR tramadol 50 mg Tablet 50 mg PO Q8H PRN (Reason: Pain) esomeprazole magnesium [Nexium 24HR] 20 mg Capsule,Delayed Release(Dr/Ec) 20 mg PO PRN PRN (Reason: GERD) clopidogrel [Plavix] 75 mg tablet 75 mg PO DAILY Qty: 90 0RF Label Comments: STOP 1 DAY PRIOR TO OR Primary Care Provider: Alfonso Carlson Chi Referrals: Alfonso Carlson Chi, MD [Primary Care Provider] - 3-5 Days Activity Restrictions/Additional Instructions: Please follow-up with PCP. Please return if symptoms persist/ worsen. Disposition Disposition: Home, Self Care
[2022-04-05 21:30] VITALS: PULSE 81; O2SAT 98
[2022-04-05 21:54] LABS: Absolute Lymphocyte Count 2.85 X10^3/uL (0.83-4.51); Absolute Neutrophil Count 8.2 X10^3/uL (2.0-7.7); Basophil# 0.01 X10^3/uL; Basophil% 0.1 % (0-1); Eosinophil# 0.01 X10^3/uL; Eosinophils% 0.1 % (0-5); Hematocrit 38.2 % (37-47); Hemoglobin 12.8 g/dL (12.0-15.0); Lymphocyte # 2.85 X10^3/ul (0.83-4.51); Lymphocyte % 24.1 % (19-41); Mean Corp Hgb Conc 33.5 g/dL (32-36); Mean Corpuscular Hgb 27.8 pg (27.0-32.0); Mean Corpuscular Volume 82.9 fL (81-99); Mean Platelet Vol. 8.9 fl (6.2-12.0); Monocyte# 0.75 X10^3/uL; Monocyte% 6.3 % (0-10); NRBC Flagged by Analyzer 0 % (0-5); Neutrophil # 8.16 X10^3/uL (2.7-7.7); Platelet Count 307 K/mm3 (150-450); RBC Distribution Width CV 16.6 % (11.6-14.6); RBC Distribution Width SD 49.9 fl (35.1-43.9); Red Blood Count 4.61 M/mm3 (4.2-5.4); White Blood Count 11.8 K/mm3 (4.4-11.0)
[2022-04-05 22:11] LABS: Anion Gap 4 (5-15); BUN 37 mg/dL (7-18); BUN/Creat Ratio 35.9 RATIO (10-20); Calcium,Total 9.3 mg/dL (8.5-10.1); Chloride 105 mmol/L (98-107); Creatinine, Serum 1.03 mg/dL (0.55-1.02); EST Glomerular Filtration Rate 56 mL/min (>60); Est Glom Filt Rate - Afr Amer 68 mL/min (>60); Estimated Creatinine Clearance 38.47 ml/min; Glucose 214 mg/dL (74-106); Potassium 4.6 mmol/L (3.5-5.1); Sodium Level 134 mmol/L (136-145); Troponin-I HS (w/2H Reflex) 21 pg/mL (3.0-54.0)
[2022-04-05] MEDS: Mag Hydrox/Al Hydrox/Simeth 30 ML UDC PO (22:41)
[2022-04-05] MEDS: Pantoprazole Sodium 40 MG Tablet PO (23:11)
== END 2022-04-05 23:13 | disposition home or self-care (01) ==
PROVIDERS: Physician Assistant; Emergency Provider Emergency Medicine; PCP Family Medicine Geriatric Medicine; Visit Provider Emergency Medicine
DX: R07.9 Chest pain, unspecified (principal); Z86.718 Personal history of other venous thrombosis and embolism
CPT/HCPCS: 71045; 80048; 84484; 85025; 93005; 99284; A4216

== ENCOUNTER 2022-04-06 05:49 | Day surgery (SDC) | payer MEDICARE, SELFPAY ==
[2022-04-06] VITALS (7 sets, daily range): BP systolic 93–152; BP diastolic 41–85; PULSE 60–79; RESP 16–18; TEMP 36.2–36.8; O2SAT 97–98; BMI 21.7
[2022-04-06] MEDS: Lactated Ringers 1,000 ML 15 ML IV (07:18)
[2022-04-06 07:45] LABS: Bedside Glucose 126 mg/dL (74-106)
--- NOTE | 2022-04-06 08:08 | PCM.HP.BLA ---
History and Physical Intake Vital Signs ? 03/04/2221:46 03/14/2218:54 03/18/2214:44 Height 5 ft 2 in 5 ft 2 in 5 ft 2 in Weight: ? ? 121 lb 6 oz BMI ? ? 22.1 Blood Pressure Location ? ? Rt brachial Position ? ? Sitting Respiration ? ? 18 Pulse ? ? 91 Pulse Source ? ? Monitor Temp ? ? 97.1 F L Temp Source ? ? Temporal Pulse Oximetry (%) ? ? 97 Oxygen Delivery Method ? ? 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 Cork Required: No Accompanied by: Is patient in pain?: No Allergies diphenhydramine [From Benadryl] Allergy (Verified 03/18/22 14:45) Swelling Medications metoprolol tartrate 50 mg tablet 50 mg PO DAILY BLOOD PRESSURE 03/06/19 [History Confirmed 03/18/22] insulin degludec 200 unit/mL (3 mL) subcutaneous pen (Tresiba FlexTouch U-200 insulin) 80 unit subcut BID diabetes 01/21/21 [History Confirmed 03/18/22] lisinopril 10 mg tablet 10 mg PO DAILY BP 02/17/21 [History Confirmed 03/18/22] diclofenac sodium 1 % topical gel (Voltaren Arthritis Pain) 2 g topical TID PRN PRN pain #100 grams 04/02/21 [Rx Confirmed 03/18/22] rosuvastatin 20 mg tablet (Crestor) 20 mg PO DAILY #90 tabs 09/08/21 [Rx Confirmed 03/18/22] acetaminophen 325 mg tablet (Tylenol) 650 mg PO Q4H PRN PRN Pain 1-10 Or Fever #0 tabs 12/09/21 [Rx Confirmed 03/18/22] apixaban 5 mg tablet 5 mg PO BID #60 tabs 12/09/21 [Rx Confirmed 03/18/22] tramadol 50 mg tablet 50 mg PO Q8H PRN Pain 02/16/22 [History Confirmed 03/18/22] baclofen 10 mg tablet 10 mg PO DAILY 03/04/22 [History Confirmed 03/18/22] naproxen 500 mg tablet 500 mg PO PRN PRN Pain 03/04/22 [History Confirmed 03/18/22] pantoprazole 40 mg tablet,delayed release 40 mg PO DAILY 03/04/22 [History Confirmed 03/18/22] acetaminophen 300 mg-codeine 15 mg tablet 1 tab PO Q6H PRN pain 7 days #28 tabs 03/05/22 [Rx Confirmed 03/18/22] hydrocodone-acetaminophen 5-325mg 5mg-325mg 1 tab PO Q6H PRN PRN Pain 1 day #4 TABLETS 03/14/22 [Rx Confirmed 03/18/22] doxycycline monohydrate 100 mg tablet 100 mg PO BID 14 days #28 tabs 03/16/22 [Rx Confirmed 03/18/22] PFSH Medical History? Abscess of right elbow Acute pancreatitis Arthritis Back problem Chest pain Diabetes Elevated hemoglobin A1c Essential (primary) hypertension History of deep venous thrombosis (01/2020) Hormone deficiency Hyperlipidemia Mass of skin of right elbow Seasonal allergies Type 2 diabetes mellitus Surgical History? History of Family History? Unknown Breast cancer Colon cancer Myocardial infarction Hypertension HyperlipidemiaFather Heart disease HypertensionMother Diabetes Hypertension Kidney disease Liver diseaseOther Arthritis Social History? household members:? spouse housing:? house history of recent travel:? No Smoking Status:? Never smoker alcohol intake:? never substance use type:? does not use what type of physical activity do you participate in:? none HPI HPI HPI: Patient is a 72-year-old female here with epigastric and right upper quadrant pain.? Patient was in the emergency room twice for this.? The patient reports that food does not help or hurt.? She denies any nausea or vomiting. ROS General General: Yes fatigue; No weight change, appetite, colon cancer, breast cancer or weakness HEENT HEENT: Yes difficulty swallowing; No eye injury, eye surgery, swollen glands or hoarseness Endo Endocrine: Yes diabetes mellitus; No thyroid disease, thyroid cancer, Hair loss, heat intolerance or cold intolerance Skin Skin: Yes changing moles; No rash Breast Breast: No left breast lump, right breast lump, nipple discharge, breast pain, abnormal mammogram, abnormal US or breast enlargement Musc Musculoskeletal: Yes back problems; No arthritis, rheumatoid arthritis, gout or joint pain Cardio Cardiovascular: Yes high blood pressure; No murmur, pacemaker, heart disease, atrial fibrillation, heart attack, heart stent, palpitations, shortness of breat with exertion or chest pain Psych Psychiatric: Yes depression; No anxiety or hearing voices Resp Respiratory: No shortness of breath, No sleep apnea, No cough, No COPD, No asthma, No emphysema and No wheezing Gastro Gastrointestinal: Yes abdominal pain, No nausea or vomiting, No diarrhea, No constipation, No blood in stool, Yes acid reflux, No hemorrhoids, No ulcers, No gallbladder problem and No black,tarry stools Keenan Hematologic: Yes blood thinners, No blood disorders, No bleeding, No anemia and Yes blood clots Neuro Neurologic: No system reviewed and no additional complaints, except as documented, No as per HPI, No abnormal gait, No abnormal hearing, No abnormal movements, No abnormal speech, No behavioral changes, No burning sensations, No confusion, No convulsions, No disequilibrium, No dizziness, No localized weakness, No frequent falls, No headache(s), No lack of coordination, No loss of vision, No memory loss, No numbness, No other visual disturbances, No radicular pain, No restless legs, No sensory deficit, No syncope, No tingling, No tremor(s), No weakness and No other Exam Const General: cooperative Orientation: alert and oriented x3 HENMT Head: normal to inspection Neck Neck: normal visual inspection and full ROM Chest Chest palpation & inspection: normal inspection of the chest Resp Effort & Inspection: normal respiratory effort Auscultation: clear to auscultation bilaterally Cardio Rate: regular rate Rhythm: regular rhythm GI Inspection: non-distended Palpation: soft and nontender Skin General: no rashes or lesions noted Neuro General: patient alert and patient oriented x3 Extrem General: full ROM Psych Appearance: grossly normal Mental Status: mental status grossly normal Assessment and Plan Assessment and Plan (1) Epigastric pain: ?Status:?Acute ?Plan: Patient is having epigastric and right upper quadrant pain.? When she was here in the emergency room on March [address] scan which showed some thickening of the antrum.? At that time she also had a gallbladder ultrasound which showed no stones, no pericholecystic, no thickening, and she had a normal white count.? I do not believe this is gallbladder related.? I believe she may have a peptic ulcer disease.? I recommend performing an EGD and I will give her Carafate and she is already on PPI that was started March 04. I explained endoscopy in detail to the patient.? I explained the risks including but not limited to stroke or heart attack with anesthesia, perforation of the GI tract, bleeding, infection.? I explained that any of these could necessitate further emergency surgery.? The patient understands and all questions were answered sufficiently.? The patient wishes to proceed with procedure. Margarito Alvarenga MD Pager: [facility] [address] [place] [address] Office: The patient was recently seen in the emergency room twice for her ongoing chest pain. She has had negative work-ups including earlier this morning. Plan for EGD today. Margarito Alvarenag MD Pager: [facility] [address], [place] [address] Office:
--- NOTE | 2022-04-06 08:30 | IMM_PTH ---
PATIENT: YENNY LUGO LOC: EN U#:[id number] AGE/SX: 72/F ROOM: RE04/06/[address]: Dr. Margarito Alvarenga MD : 1950 BED: DIS: 04/06/2022 SPEC #: [id number] RECD: 04/06/22 13:22 STATUS: SUSANNE REQ #: [id number] SIERRA: 04/06/22 08:[address]: Margarito Alvarenga DEPT: IMMUNOHISTOCHEMISTRY RECD BY: Corinna Worley ENTERED: 04/06/22 13:22 SP TYPE: IMMUNO OTHR DR: Dr. Alfonso Carlson MD Tissues: Stomach, NOS Procedures: H Pylori (initial) PHYSICIAN & INSTITUTION [place] [id number] SPECIMEN INFORMATION: Tissue Source: Antrum ulcer Clinical Info: Epigastric pain Specimen Number: [id number] CPT code: 51062 METHODOLOGY: Deparaffinized sections of prefer/formalin-fixed tissue or PAP/DQ stained slides are incubated with monoclonal/polyclonal antibodies/oligonucleotide probes. Localization is made via biotin free immunoperoxidase method. Appropriate controls are performed and reacted as expected. Results on target cell population are indicated in the following table: RESULTS: ANTIBODY / CLONE RESULT H Pylori (polyclonal) negative These tests were developed and their performance characteristics determined by [facility]. They may not have been cleared or approved by the U.S. Food and Drug Administration. The FDA has determined that such clearance or approval is not necessary. The above immunohistochemical/dualISH markers are ordered and reviewed by the Pathologist. INTERPRETATION: Antrum ulcer, biopsy: Negative for Helicobacter pylori organisms. ANN MARIE:timi 04/07/2022
--- NOTE | 2022-04-06 08:30 | EGD_PTH ---
PATIENT: YENNY LUGO LOC: EN U#:[id number] AGE/SX: 72/F ROOM: RE04/06/[address]: Dr. Margarito Alvarenga MD : 1950 BED: DIS: 04/06/2022 SPEC #: [id number] RECD: 04/06/22 10:36 STATUS: SUSANNE REOdalys #: [id number] SIERRA: 04/06/22 08:[address]: Margarito Alvarenga DEPT: SURGICAL PATHOLOGY RECD BY: Kalyani Gusman ENTERED: 04/06/22 11:30 SP TYPE: EGD BIOPSY OTHR DR: Dr. Alfonso Carlson MD Tissues: Gastric mucous membrane Procedures: Surgery Specimen Level IV HEADER OPERATION: EGD ([facility] PRE-OP DIAGNOSIS: Epigastric pain TISSUE SUBMITTED: Antrum ulcer for H. pylori and path MICROSCOPIC DIAGNOSIS Antrum ulcer, biopsy: Mild gastritis. See microscopic description and comment. SJ:timi 04/07/2022 COMMENT The results of immunohistochemistry for Helicobacter pylori will be reported separately ([id number]). MICROSCOPIC DESCRIPTION Slides are reviewed. The specimen shows fragments of gastric mucosa with chronic inflammatory cell infiltrates in the lamina propria consisting of lymphocytes and plasma cells, consistent with mild chronic gastritis. GROSS DESCRIPTION Received in fixative is one container labeled with the patient's name and designated antrum ulcer. The specimen consists of two irregular fragments of light lezama soft tissue that in aggregate measure 0.6 x 0.5 x 0.1 cm. The specimen is totally submitted in one cassette. / AM:timi 04/06/2022 TC:3 CPT: 52551
--- NOTE | 2022-04-06 08:32 | OP.EGD_ITS ---
Patient Name: Nathalie Ahumada Procedure Date: 04/06/2022 8:00 AM Date of : 1950 Age: 72 Procedure: Upper GI endoscopy Indications: Epigastric abdominal pain Providers: Margarito Alvarenga MD Medicines: Monitored Anesthesia Care Patient Profile: This is a 72 year old female. Refer to note in patient chart for documentation of history and physical. Complications: No immediate complications. Estimated blood loss: Minimal. Procedure: Pre-Anesthesia Assessment: - Prior to the procedure, a History and Physical was performed, and patient medications and allergies were reviewed. The patient's tolerance of previous anesthesia was also reviewed. The risks and benefits of the procedure and the sedation options and risks were discussed with the patient. All questions were answered, and informed consent was obtained. Prior Anticoagulants: The patient has taken Plavix (clopidogrel), last dose was 5 days prior to procedure. After reviewing the risks and benefits, the patient was deemed in satisfactory condition to undergo the procedure. After obtaining informed consent, the endoscope was passed under direct vision. Throughout the procedure, the patient's blood pressure, pulse, and oxygen saturations were monitored continuously. The Endoscope was introduced through the mouth, and advanced to the third part of duodenum. The upper GI endoscopy was accomplished without difficulty. The patient tolerated the procedure well. Scope In: 8:19:23 AM Scope Out: 8:26:00 AM Total Procedure Duration Time 0 hours 6 minutes 37 seconds Findings: The esophagus was normal. The examined duodenum was normal. One non-bleeding cratered gastric ulcer with no stigmata of bleeding was found in the gastric antrum. Biopsies were taken with a cold forceps for Helicobacter pylori testing. Impression: - Normal esophagus. - Normal examined duodenum. - Non-bleeding gastric ulcer with no stigmata of bleeding. Biopsied. Recommendation: - Discharge patient to home. - Resume previous diet. - Continue present medications. - Use Prilosec (omeprazole) 40 mg PO BID. - Resume Eliquis (apixaban) tomorrow and Plavix (clopidogrel) tomorrow at prior doses. - Await pathology results. - Return to my office in 2 weeks. Procedure Code(s): --- Professional --- 22272, Esophagogastroduodenoscopy, flexible, transoral; with biopsy, single or multiple Diagnosis Code(s): --- Professional --- K25.9, Gastric ulcer, unspecified as acute or chronic, without hemorrhage or perforation R10.13, Epigastric pain CPT copyright 2017 [employer]. All rights reserved. The codes documented in this report are preliminary and upon investment advisor review may be revised to meet current compliance requirements. Margarito Alvarenga MD 04/06/2022 8:32:17 AM This report has been signed electronically. Number of Addenda: 0 Note Initiated On: 04/06/2022 8:00 AM
--- NOTE | 2022-04-06 08:33 | OP.CCLET_ITS ---
04/06/2022 Alfonso Carlson MD [address] [place] [address] Re : Upper GI endoscopy procedure for Nathalie Ahumada Dear Dr. Carlson This procedure was performed on Wednesday, April 06, 2022. My impressions and recommendations are as follows: Impressions : - Normal esophagus. - Normal examined duodenum. - Non-bleeding gastric ulcer with no stigmata of bleeding. Biopsied. Recommendations : - Discharge patient to home. - Resume previous diet. - Continue present medications. - Use Prilosec (omeprazole) 40 mg PO BID. - Resume Eliquis (apixaban) tomorrow and Plavix (clopidogrel) tomorrow at prior doses. - Await pathology results. - Return to my office in 2 weeks. My findings are described in the full procedure note, which is enclosed. If I can be of further assistance, please feel free to contact me at Doctor phone number(s): , Work: . Sincerely, Margarito Alvarenga MD 04/06/2022 8:32:17 AM This report has been signed electronically.
== END 2022-04-06 09:35 | disposition home or self-care (01) ==
LOC: EN 05:50 → AC 05:51
PROVIDERS: PCP Family Medicine Geriatric Medicine; Referring Provider Family Medicine Geriatric Medicine; Visit Provider Surgery
PROC: 0DJ08ZZ Inspection of Upper Intestinal Tract, Via Natural or Artificial Opening Endoscopic (ICD-10-PCS; CPT 43235; principal; 2022-04-06 08:25)
DX: K29.50 Unspecified chronic gastritis without bleeding (principal); E11.42 Type 2 diabetes mellitus with diabetic polyneuropathy; Z79.4 Long term (current) use of insulin; K25.9 Gastric ulcer, unspecified as acute or chronic, without hemorrhage or perforation; I10 Essential (primary) hypertension; Z86.718 Personal history of other venous thrombosis and embolism; Z79.01 Long term (current) use of anticoagulants; Z79.899 Other long term (current) drug therapy
CPT/HCPCS: 43239; 82962; 88305; 88342; J7120; J2405

== ENCOUNTER 2022-04-07 20:38 | Emergency (ER) | payer MEDICARE, SELFPAY ==
[2022-04-07 20:40] VITALS: BP 92/77; PULSE 105; RESP 16; TEMP 36.4; O2SAT 99; BMI 20.5
--- NOTE | 2022-04-07 20:58 | EKG12_ITS ---
Test Reason : CP Blood Pressure : / mmHG Vent. Rate : 101 BPM Atrial Rate : 101 BPM P-R Int : 114 ms QRS Dur : 072 ms QT Int : 340 ms P-R-T Axes : 035 -31 083 degrees QTc Int : 440 ms Sinus tachycardia Left axis deviation Left ventricular hypertrophy with repolarization abnormality Abnormal ECG Confirmed by SHABANA KLEIN, ANTONIO ([id number]), sound editor CHECO VELASCO ([id number]) on 04/09/2022 6:37:13 AM Referred By: MICHAEL Confirmed By:VITA DONALD MD
--- NOTE | 2022-04-07 21:00 | RAD_ITS ---
INDICATION: chest pain EXAMINATION/TECHNIQUE: X-RAY - XR Chest 1 View COMPARISON: April 05, 2022. FINDINGS: LINES/DEVICES: None. LUNGS: No consolidation, edema or effusion. No pneumothorax. MEDIASTINUM AND CARDIOVASCULAR STRUCTURES: Cardiac silhouette not enlarged. Central airways and mediastinal contour are unremarkable. Mild calcification of aortic knob BONES AND SOFT TISSUES: Unremarkable. No significant change since prior exam RAD/Chest 1 View (Portable) IMPRESSION: No radiographic evidence of acute cardiopulmonary disease. Electronically Signed: Sam Clark MD at 21:13 EST ,
== END 2022-04-07 22:16 | disposition left against medical advice (07) ==
LOC: ED 22:19
PROVIDERS: PCP Family Medicine Geriatric Medicine
DX: Z53.21 Procedure and treatment not carried out due to patient leaving prior to being seen by health care provider (principal)
CPT/HCPCS: 71045; 93005

== ENCOUNTER 2022-04-13 17:03 | Inpatient (IN) | payer MEDICARE, SELFPAY ==
[2022-04-13 15:45] VITALS: BMI 21.0
--- NOTE | 2022-04-13 15:50 | NURSING ---
lab and xray notified of admit
--- NOTE | 2022-04-13 15:55 | RAD_ITS ---
STUDY: X-RAY - RIGHT FOOT CLINICAL: Female, 72 years old. Wound. TECHNIQUE: 3 view(s) of the foot. COMPARISON: January 26, 2022. FINDINGS: There is a plate and screws along the lateral aspect of the distal fibula. Normal talus, calcaneus, and tarsal bones. Normal visualized subtalar, talonavicular, calcaneocuboid, tarsal and tarsometatarsal articulations. Normal metatarsi. Normal metatarsophalangeal joint of the great toe. Normal tibial and fibular sesamoid bones. Normal interphalangeal joint of the great toe. Normal phalanges of the great toe. Normal second through fifth metatarsophalangeal joints. Normal interphalangeal joints and phalanges of the lesser toes. The soft tissue structures are unremarkable. RAD/Foot min 3 Views IMPRESSION: 1. Normal x-ray examination of the foot. No major interval change. 2. Remote distal fibular fracture with internal fixation. Electronically Signed: Yohan Marcial DO at 16:37 EST ,
--- NOTE | 2022-04-13 16:13 | CON.PCM.HO_ITS ---
Assessment & Plan Assessment/Plan (1) Cellulitis of right foot: (2) Gangrene of toe of right foot: PLAN: Plan The patient is a 72 y/o F w/ PMHx: Hx VTE, Allergic Rhinitis, Diabetes mellitus type II, HTN, HLD, OA, PAD s/p SFA occulation intervention per Dr. Donato, ongoing history of right lateral foot diabetic foot ulcers following with Dr. Grimaldo [facility]iatry [facility] as noted with worsening appearance with now onset necrotic fifth digit and lateral forefoot on the right side with increased pain, rated sharp and stabbing 10 out of 10 in severity per patient with concern for possible infection prompting direct admission per podiatry. #1. Concern for acutely infected right lateral foot and necrotic fifth digit as well as lateral forefoot, gangrenous secondary to underlying diabetes and PAD: Patient admitted to medical surgical floor per podiatry, initiated IV Unasyn therapy, if concern per service may consider infectious disease involvement as well, planned n.p.o. status after midnight for operative intervention in a.m. 04/14/2022, as needed pain regimen per primary care service, strongly recommend very quick reinitiation of patient Plavix and Eliquis given recent SFA occlusion intervention per vascular surgery as well as history of VTE. Dressing care and decision for wound care involvement per podiatry discretion. #2. Hx VTE: Patient with history DVT, PE, temporarily holding patient home Eliquis therapy with planned operative intervention in a.m. per podiatry, recommend strongly resumption of anticoagulant therapy once podiatry amenable. If necessary may consider heparin drip prior to transition to oral regimen. #3. PAD: Patient status post recent intervention for SFA occlusion, temporarily holding Plavix and Eliquis today only with planned intervention in a.m. and strongly recommend resumption of Plavix and Eliquis following once cleared per podiatry given recent intervention, continue hypertensive regimen, diabetic regimen, per current list not on statin therapy. Encouraged follow-up outpatient with vascular surgery. #4. Diabetes mellitus type II: Hold oral home regimen, continue home insulin regimen, ADA diet, accu checks w/ ISS. #5. Hypertension: Continue home regimen including lisinopril, metoprolol, PRN hydralazine. #6. Hyperlipidemia: Not on statin therapy, encourage follow-up. #7. DVT prophylaxis: SCDs, holding patient home Eliquis therapy for OR as noted. Admission Evaluation Time spent evaluating chart, patient history, patient evaluation, care planning and discussion with specialists: 75 minutes. HPI Consult Data Date of Consult: 04/13/22 HPI Narrative Reason for Consultation: Medical management HPI Narrative: The patient is a 72 y/o F w/ PMHx: Hx VTE, Allergic Rhinitis, Diabetes mellitus type II, HTN, HLD, OA, PAD s/p SFA occulation intervention per Dr. Donato, ongoing history of right lateral foot diabetic foot ulcers following with Dr. Grimaldo Podiatry and [facility] with [facility] surgery as noted with worsening appearance with now onset necrotic fifth digit and lateral forefoot on the right side with increased pain, rated sharp and stabbing 10 out of 10 in severity per patient with concern for possible infection prompting direct admission per podiatry with planned surgical intervention. Podiatry initiated patient on IV Unasyn with planned OR 04/14/2022 with planned amputation. Hospitalist service requested for medical management. [facility] Medical History (Updated 04/13/22 @ 19:[address] Karolina King MD) Arthritis Diabetes Essential (primary) hypertension Gastric reflux High cholesterol History of venous thromboembolism Hormone deficiency Hyperlipidemia PAD (peripheral artery disease) Post-menopausal Seasonal allergies Type 2 diabetes mellitus Wears glasses Home Medications metoprolol tartrate 50 mg tablet 50 mg PO DAILY BLOOD PRESSURE 03/06/19 [History Last Taken 1 Day Ago ~04/05/22] insulin degludec 200 unit/mL (3 mL) subcutaneous pen (Tresiba FlexTouch U-200 insulin) 80 unit subcut BID diabetes 01/21/21 [History Last Taken 02/17/21] lisinopril 10 mg tablet 10 mg PO DAILY BP 02/17/21 [History Last Taken 02/17/21] diclofenac sodium 1 % topical gel (Voltaren Arthritis Pain) 2 g topical TID PRN PRN pain #100 grams 04/02/21 [Rx Last Taken Unknown] rosuvastatin 20 mg tablet (Crestor) 20 mg PO DAILY #90 tabs 09/08/21 [Rx Last Taken Unknown] acetaminophen 325 mg tablet (Tylenol) 650 mg PO Q4H PRN PRN Pain 1-10 Or Fever #0 tabs 12/09/21 [Rx Last Taken Unknown] apixaban 5 mg tablet 5 mg PO BID #60 tabs 12/09/21 [Rx Last Taken 04/05/22] tramadol 50 mg tablet 50 mg PO Q8H PRN Pain 02/16/22 [History Last Taken Unknown] clopidogrel 75 mg tablet (Plavix) 75 mg PO DAILY #90 tabs 03/25/22 [Rx Last Taken 04/05/22] omeprazole 40 mg capsule,delayed release 40 mg PO BID #60 caps 04/06/22 [Rx Last Taken Unknown] sucralfate 1 gram tablet (Carafate) 1 g PO QACHS #60 tabs 04/06/22 [Rx Last Taken Unknown] Allergy/AdvReac Type Severity Reaction Status Date / Time diphenhydramine Allergy Swelling Verified 04/07/22 20:40 [From Gabi] Family History (Updated 04/13/22 @ 19:[address] Karolina King MD) Father Heart disease Hypertension Mother Diabetes Hypertension Kidney disease Liver disease Other Arthritis Surgical History (Updated 04/13/22 @ 19:[address] Karolina King MD) History of Social History (Updated 04/13/22 @ 19:[address] Karolina King MD) household members: spouse housing: house history of recent travel: No other: Patient did have notable secondhand tobacco exposure from [employer]. Smoking Status: Never smoker alcohol intake: never substance use type: does not use what type of physical activity do you participate in: none ROS ROS Narrative Admission Review of Systems: CONSTITUTIONAL: No weight loss, fever, chills, + weakness or fatigue. HEENT: Eyes: No visual loss, blurred vision, double vision or yellow sclerae. Ears, Nose, Throat: No hearing loss, sneezing, congestion, runny nose or sore throat. SKIN: + Right lateral forefoot and right fifth toe gangrene, diabetic ulcer, infected. CARDIOVASCULAR: No chest pain, chest pressure or chest discomfort, palpitations, edema, orthopnea, syncopal events. RESPIRATORY: No shortness of breath, cough or sputum, wheezing, hemoptysis. GASTROINTESTINAL: No anorexia, nausea, vomiting or diarrhea, abdominal pain, melena, BRBPR. GENITOURINARY: No dysuria, frequency, urgency or retention. NEUROLOGICAL: No headache, dizziness, syncope, paralysis, ataxia, numbness or tingling in the extremities, focal weakness, change in bowel or bladder control, seizure. MUSCULOSKELETAL + muscle, back pain, joint pain or stiffness. HEMATOLOGIC: + anemia, bleeding or bruising. LYMPHATICS: No enlarged nodes. No history of splenectomy. PSYCHIATRIC: No history of depression or anxiety. ENDOCRINOLOGIC: No reports of sweating, cold or heat intolerance. No polyuria or polydipsia. ALLERGIES: No history of asthma, hives, eczema or rhinitis. Physical Exam Narrative Physical Examination: General: Awake, alert, oriented x 3 and cooperative, seated upright in the medical surgical bed, reports notable right distal lateral foot pain, 10 out of 10 currently. Skin: Normal color, normal turgor, no icterus, no cyanosis except for right lateral forefoot gangrenous changes as well as gangrenous fifth digit, mild erythema surrounding this area. HEENT: AT/NC, EOMI, PERRLA, mildly dry MM, no carotid bruits or JVD noted. Lungs: CTA bilaterally, moderate effort, mild decrease BL bases, no rales, ronchi or wheezing. Heart: Regular rate and rhythm; no gallop, rub audible. Abdomen: Soft, NTTP, ND, distant normal BS, no HSM. Extremities: No cyanosis, no clubbing, see skin. Neurological: Patient awake, alert, oriented as noted, cognitive function intact; pupils equally reactive to light and accommodation, cranial nerves II- XII grossly normal, moving all 4 extremities although somewhat limited right lower extremity given severe pain elicited, strength accordingly moderately globally decreased. Psychiatric: Affect appears uncomfortable, no acute evidence of depressive or anxiety feelings. Lab / Micro Data Result Diagrams: 04/13/22 16:45 04/13/22 16:45 Charges/Coding Visit Charges Office Visits / Consults: [id number] IP Consult L4
--- NOTE | 2022-04-13 16:20 | HP.PCM_ITS ---
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 Patient underwent vascular intervention per Dr. Donato on 03/24/22 which opened an SFA occlusion. I subsequently saw the patient with necrotic 5th digit and lateral forefoot on the right side. This has since worsened over the past two weeks with increased pain. Patient denies constitutional symptoms. Patient has been offloading site with surgical shoe. Denies any other issues. [facility] Medical History Abscess of right elbow Acute pancreatitis Arthritis Back problem Cardiology follow-up encounter Chest pain Diabetes DVT (deep venous thrombosis) Elevated hemoglobin A1c Essential (primary) hypertension Gastric reflux High cholesterol History of deep venous thrombosis (01/2020) History of echocardiogram Hormone deficiency Hyperlipidemia Hypertension Mass of skin of right elbow Non-smoker Post-menopausal Seasonal allergies Type 2 diabetes mellitus Wears glasses Home Medications metoprolol tartrate 50 mg tablet 50 mg PO DAILY BLOOD PRESSURE 03/06/19 [History Last Taken 1 Day Ago ~04/05/22] insulin degludec 200 unit/mL (3 mL) subcutaneous pen (Tresiba FlexTouch U-200 insulin) 80 unit subcut BID diabetes 01/21/21 [History Last Taken 02/17/21] lisinopril 10 mg tablet 10 mg PO DAILY BP 02/17/21 [History Last Taken 02/17/21] diclofenac sodium 1 % topical gel (Voltaren Arthritis Pain) 2 g topical TID PRN PRN pain #100 grams 04/02/21 [Rx Last Taken Unknown] rosuvastatin 20 mg tablet (Crestor) 20 mg PO DAILY #90 tabs 09/08/21 [Rx Last Taken Unknown] acetaminophen 325 mg tablet (Tylenol) 650 mg PO Q4H PRN PRN Pain 1-10 Or Fever #0 tabs 12/09/21 [Rx Last Taken Unknown] apixaban 5 mg tablet 5 mg PO BID #60 tabs 12/09/21 [Rx Last Taken 04/05/22] tramadol 50 mg tablet 50 mg PO Q8H PRN Pain 02/16/22 [History Last Taken Unknown] clopidogrel 75 mg tablet (Plavix) 75 mg PO DAILY #90 tabs 03/25/22 [Rx Last Taken 04/05/22] omeprazole 40 mg capsule,delayed release 40 mg PO BID #60 caps 04/06/22 [Rx Last Taken Unknown] sucralfate 1 gram tablet (Carafate) 1 g PO QACHS #60 tabs 04/06/22 [Rx Last Taken Unknown] Allergy/AdvReac Type Severity Reaction Status Date / Time diphenhydramine Allergy Swelling Verified 04/07/22 20:40 [From Benadryl] Family History Unknown Breast cancer Colon cancer Myocardial infarction Hypertension Hyperlipidemia Father Heart disease Hypertension Mother Diabetes Hypertension Kidney disease Liver disease Other Arthritis Surgical History History of Social History household members: spouse housing: house history of recent travel: No Smoking Status: Never smoker alcohol intake: never substance use type: does not use what type of physical activity do you participate in: none ROS Constitutional Constitutional: Denies chills, headache(s) or stops breathing during sleep Eyes Eyes: Denies acute decrease in peripheral vision, change in vision or double vision ENT HEENT: Denies change in voice, ear pain or hoarseness Cardiovascular Cardiovascular: Denies abdominal edema, chest pain or cyanosis Respiratory/Chest Respiratory/Chest: Denies change in mental status, difficulty clearing secretions or excessive phlegm production Gastrointestinal Gastrointestinal: Denies belching, coffee ground emesis or excessive flatus Physical Exam Narrative Patient AOx3. Ambulates in surgical shoe on right. Vascular: Dorsalis pedis and posterior pulses diminished bilaterally. CFT brisk to digits 1-4 on right, 1-5 on left. No gross edema. Neurologic: Light touch/protective sensation diminished bilaterally. Dermatologic:Gangrenous changes to right lateral forefoot with gangrenous 5th digit. Mild erythema to perinecrotic area. No evidence of gas or deep purlence. No ther signs of infeciton. Necrosis appears well demearcated at this time. Musculoskeletal: No gross deformity. No signs or symptoms of DVT. Muscular strength full to all lower extremity muscle groups. Assessment & Plan Assessment/Plan (1) Cellulitis of right foot: PLAN: Exam performed. radiographs ordered, inflammatory labs ordered. Patient had revascularization at the end of march which resolved an SFA occlusion. Patient has dry gangrene to right 5th toe which has become acutely infected. due to recent revascularization per Dr. Donato and final demarcation of necrosis, will plan for partial 5th ray resection on right. Iv unasyn started, will take cultures intra operatively. betadine paint/DSD applied to right lateral foot. Patient non-weightbearing to right foot. Internal medicine consulted. Plan for amputation 04/14/22. will continue to follow closely. (2) Gangrene of toe of right foot:
[2022-04-13 16:57] VITALS: O2SAT 93
[2022-04-13 17:03] VITALS: BP 159/81; PULSE 80; RESP 16; TEMP 36.8; O2SAT 96
[2022-04-13 17:18] LABS: Absolute Neutrophil Count 10.6 X10^3/uL (2.0-7.7); Basophil# 0.02 X10^3/uL; Basophil% 0.1 % (0-1); Hematocrit 36.6 % (37-47); Hemoglobin 12.1 g/dL (12.0-15.0); Lymphocyte % 14.6 % (19-41); Mean Corp Hgb Conc 33.1 g/dL (32-36); Mean Corpuscular Hgb 27.6 pg (27.0-32.0); Mean Corpuscular Volume 83.6 fL (81-99); Monocyte# 1.01 X10^3/uL; Monocyte% 7.4 % (0-10); NRBC Flagged by Analyzer 0 % (0-5); Neutrophil # 10.57 X10^3/uL (2.7-7.7); Neutrophil % 77.2 % (47-70); Platelet Count 289 K/mm3 (150-450); RBC Distribution Width CV 16.7 % (11.6-14.6); RBC Distribution Width SD 50.9 fl (35.1-43.9); Red Blood Count 4.38 M/mm3 (4.2-5.4); White Blood Count 13.7 K/mm3 (4.4-11.0)
[2022-04-13 17:26] LABS: Erythrocyte Sedimentation Rate 35 mm/hr (0-30)
[2022-04-13 17:29] LABS: Hemoglobin A1c 10.2 % (3.8-5.6)
[2022-04-13] MEDS: oxyCODONE 5 MG Tablet PO (17:35)
[2022-04-13] MEDS: Acetaminophen 325 MG Tablet 650 MG PO (17:35)
[2022-04-13 17:40] LABS: Bedside Glucose 410 mg/dL (74-106)
[2022-04-13 17:57] LABS: ALB/GLOB Ratio 0.8 RATIO (0.9-2.4); AST(SGOT) 19 U/L (15-37); Alanine Aminotransfer ALT/SGPT 31 U/L (13-56); Alkaline Phosphatase 111 U/L (45-117); Anion Gap 9 (5-15); BUN 38 mg/dL (7-18); BUN/Creat Ratio 37.6 RATIO (10-20); CRP < 2.90 mg/L (0.0-3.0); Calcium,Total 9.1 mg/dL (8.5-10.1); Chloride 104 mmol/L (98-107); Creatinine, Serum 1.01 mg/dL (0.55-1.02); EST Glomerular Filtration Rate 57 mL/min (>60); Est Glom Filt Rate - Afr Amer 69 mL/min (>60); Estimated Creatinine Clearance 39.24 ml/min; Globulin 3.8 g/dL (2.2-4.2); Glucose 431 mg/dL (74-106); Potassium 4.1 mmol/L (3.5-5.1); Protein, Total 6.8 g/dL (6.4-8.2); Sodium Level 133 mmol/L (136-145)
[2022-04-13] MEDS: Insulin Lispro 100 UNIT/ML INSULN.PEN SC ×2 (19:02→22:14)
[2022-04-13] MEDS: 0.9% Saline Lock 10 ML Syringe IV (20:41)
[2022-04-13 21:10] VITALS: BP 135/78; PULSE 87; RESP 16; TEMP 36.6; O2SAT 94
[2022-04-13] MEDS: Insulin Glargine-YFGN 100 UNIT/ML Pen 80 UNIT SC (22:13)
[2022-04-13] MEDS: Sucralfate 1 GM Tablet PO (22:14)
[2022-04-13] MEDS: Pantoprazole Sodium 40 MG Tablet PO (22:14)
[2022-04-13 22:45] LABS: Bedside Glucose 360 mg/dL (74-106)
[2022-04-14] VITALS (12 sets, daily range): BP systolic 116–163; BP diastolic 41–70; PULSE 58–92; RESP 16–18; TEMP 36–36.9; O2SAT 94–100; BMI 21.0
[2022-04-14] MEDS: Acetaminophen 325 MG Tablet 650 MG PO
[2022-04-14] MEDS: oxyCODONE 5 MG Tablet PO
--- NOTE | 2022-04-14 | BON_PTH ---
PATIENT: YENNY LUGO LOC: MS2 U#:[id number] AGE/SX: 72/F ROOM: [facility] RE04/14/[address]: Dr. Yazan Grimaldo DPM : 1950 BED: 1 DIS: 04/16/2022 SPEC #: [id number] RECD: 04/15/22 09:03 STATUS: SUSANNE REOdalys #: [id number] SIERRA: 04/14/22 00:[address]: Yazan Grimaldo DEPT: SURGICAL PATHOLOGY RECD BY: Jayden Rodriguez ENTERED: 04/15/22 12:30 SP TYPE: Bone OTHR DR: MD Dr. Brice De Jesus Dr., DO Dr. Efewongbe Oleghe, MD Dr. Loren Kirchner, MD Dr. Prakash Chand, MD Dr. Tai Chi Kwok, MD Barbara Tickton, GIRMA-C Raymond Rice, PRESIDENT AND CHIEF EXECUTIVE OFFICER-C WAYNE Tim Tissues: Bone of foot, NOS Procedures: Decalcification bone/plaque Surgery Specimen Level IV HEADER OPERATION: Partial fourth and fifth ray amputation PRE-OP DIAGNOSIS: Cellulitis of right foot TISSUE SUBMITTED: Right fourth and fifth toe MICROSCOPIC DIAGNOSIS Right fourth and fifth toe, amputation: Skin with extensive ulceration and acute inflammation. Pieces of bone with focal acute osteomyelitis. ANN MARIE:timi 04/21/2022 MICROSCOPIC DESCRIPTION Slides are reviewed. GROSS DESCRIPTION Received in fixative is one container labeled with the patient's name and designated right fourth and five toe. The specimen consists of a piece of skin measuring 2.5 x 0.5 x 0.2 cm. Also present in the container are multiple fragments of bone measuring in aggregate 5.5 x 4 x 1.5 cm. The entire piece of skin is submitted in one cassette. Sections from the bone are submitted in four cassettes (2-5) after decalcification. / ANN MARIE:timi 04/15/2022 TC:2 CPT: 54914, 62493
[2022-04-14] MEDS: Morphine 2 MG/ML Syringe IV ×3 (02:03→10:26)
[2022-04-14] MEDS: Ondansetron 4 MG/2 ML Vial IV (02:26)
[2022-04-14 03:45] LABS: Absolute Lymphocyte Count 2.67 X10^3/uL (0.83-4.51); Absolute Neutrophil Count 7.9 X10^3/uL (2.0-7.7); Basophil# 0.02 X10^3/uL; Basophil% 0.2 % (0-1); Eosinophil# 0.01 X10^3/uL; Eosinophils% 0.1 % (0-5); Hematocrit 33.1 % (37-47); Hemoglobin 10.7 g/dL (12.0-15.0); Lymphocyte # 2.67 X10^3/ul (0.83-4.51); Lymphocyte % 22.9 % (19-41); Mean Corp Hgb Conc 32.3 g/dL (32-36); Mean Corpuscular Hgb 27.4 pg (27.0-32.0); Mean Corpuscular Volume 84.7 fL (81-99); Mean Platelet Vol. 8.7 fl (6.2-12.0); Monocyte# 0.92 X10^3/uL; Monocyte% 7.9 % (0-10); NRBC Flagged by Analyzer 0 % (0-5); Neutrophil # 7.94 X10^3/uL (2.7-7.7); Neutrophil % 68.2 % (47-70); Platelet Count 246 K/mm3 (150-450); RBC Distribution Width CV 16.9 % (11.6-14.6); RBC Distribution Width SD 52.1 fl (35.1-43.9); Red Blood Count 3.91 M/mm3 (4.2-5.4); White Blood Count 11.6 K/mm3 (4.4-11.0)
[2022-04-14 03:59] LABS: Anion Gap 8 (5-15); BUN 42 mg/dL (7-18); BUN/Creat Ratio 37.2 RATIO (10-20); Calcium,Total 8.7 mg/dL (8.5-10.1); Chloride 108 mmol/L (98-107); Creatinine, Serum 1.13 mg/dL (0.55-1.02); EST Glomerular Filtration Rate 50 mL/min (>60); Est Glom Filt Rate - Afr Amer 61 mL/min (>60); Estimated Creatinine Clearance 35.07 ml/min; Glucose 304 mg/dL (74-106); Potassium 4.6 mmol/L (3.5-5.1); Sodium Level 138 mmol/L (136-145)
[2022-04-14] MEDS: Insulin Lispro 100 UNIT/ML INSULN.PEN SC ×2 (06:30→20:44)
[2022-04-14 06:50] LABS: Bedside Glucose 155 mg/dL (74-106)
[2022-04-14] MEDS: 0.9% Saline Lock 10 ML Syringe IV (07:32)
--- NOTE | 2022-04-14 08:20 | PN.HOSP_ITS ---
Subjective Subjective Follow-up for right foot gangrene progressively worsening since 1 month with surrounding cellulitis. Objective Data Objective Data Vital Signs: Vital Signs Temp Pulse Resp BP Pulse Ox O2 Del Method 98 F 87 16 158/70 H 94 Room Air 04/14/22 02:46 04/14/22 02:46 04/14/22 02:46 04/14/22 02:46 04/14/22 02:46 04/14/22 02:46 Oxygen Delivery Method Room Air Weight: 115 lb Body Mass Index (BMI) 21.0 Intake & Output: Intake and Output for Last 24 Hours 04/12/22 04/13/22 04/14/22 23:59 23:59 23:59 Intake Total 112 / 112 375.75 / 375.75 Balance 112 / 112 375.75 / 375.75 Lab / Micro Data Result Diagrams: 04/14/22 03:39 04/14/22 03:39 Labs: Laboratory Results - last 24 hr 04/13/22 16:44: POC Glucose 410 H 04/13/22 16:45: WBC 13.7 H, RBC 4.38, Hgb 12.1, Hct 36.6 L, MCV 83.6, MCH 27.6, MCHC 33.1, RDW Std Deviation 50.9 H, RDW Coeff of Melvina 16.7 H, Plt Count 289, MPV 9.0, Immature Gran % (Auto) 0.700, Neut % (Auto) 77.2 H, Lymph % (Auto) 14.6 L, [place] % (Auto) 7.4, Eos % (Auto) 0.0, Baso % (Auto) 0.1, Absolute Neuts (auto) 10.6 H, Absolute Lymphs (auto) 2.00, Nucleated RBC % 0, ESR 35 H 04/13/22 16:45: Sodium 133 L, Potassium 4.1, Chloride 104, Carbon Dioxide 20.0 L , Anion Gap 9, BUN 38 H, Creatinine 1.01, Estim Creat Clear Calc 39.24, Est GFR (MDRD) Af Amer 69, Est GFR (MDRD) Non-Af 57 L, BUN/Creatinine Ratio 37.6 H, Glucose 431 H, Calcium 9.1, Total Bilirubin 0.30, AST 19, ALT 31, Alkaline Phosphatase 111, C-React Prot Ext Range < 2.90, Total Protein 6.8, Albumin 3.0 L , Globulin 3.8, Albumin/Globulin Ratio 0.8 L 04/13/22 16:45: Hemoglobin A1c 10.2 H 04/13/22 22:12: POC Glucose 360 H 04/14/22 03:39: WBC 11.6 H, RBC 3.91 L, Hgb 10.7 L, Hct 33.1 L, MCV 84.7, MCH 27.4, MCHC 32.3, RDW Std Deviation 52.1 H, RDW Coeff of Melvina 16.9 H, Plt Count 246, MPV 8.7, Immature Gran % (Auto) 0.700, Neut % (Auto) 68.2, Lymph % (Auto) 22.9, [place] % (Auto) 7.9, Eos % (Auto) 0.1, Baso % (Auto) 0.2, Absolute Neuts (au to) 7.9 H, Absolute Lymphs (auto) 2.67, Nucleated RBC % 0 04/14/22 03:39: Sodium 138, Potassium 4.6, Chloride 108 H, Carbon Dioxide 22.0, Anion Gap 8, BUN 42 H, Creatinine 1.13 H, Estim Creat Clear Calc 35.07, Est GFR (MDRD) Af Amer 61, Est GFR (MDRD) Non-Af 50 L, BUN/Creatinine Ratio 37.2 H, Glucose 304 H, Calcium 8.7 04/14/22 06:29: POC Glucose 155 H Radiography Diagnostic Testing: Radiology Impression Foot X-Ray 04/13/22 15:55 IMPRESSION: 1. Normal x-ray examination of the foot. No major interval change. 2. Remote distal fibular fracture with internal fixation. Electronically Signed: Yohan Marcial DO at 16:37 EST Reading Location ID and State: [address] [place] [address] Tel [phone], Service support , Physical Exam Narrative Physical exam General: Alert, Oriented x3, Cooperative HEENT: Atraumatic, PERRLA, EOMI, Normocephalic Oral: No Gingival or Mucosal Lesions/ Ulcerations Neck: Supple, No JVD, Negative Carotid Bruits Lungs: Air entry diminished in bilateral lung bases. No crepitation/rhonchi Cardiovascular: Regular rate, Regular Rhythm, Normal S1, Normal S2, No murmurs. Diminished pulse on bilateral SCHOOL GUIDANCE COUNSELOR and DPA Right side. Abdomen: Bowel Sounds Present, Soft, Non Tender, Non-Distended : No renal angle tenderness. No suprapubic tenderness. Extremities: No edema, Capillary Refill Less than 3 Seconds Skin: Dry, shriveled and black discoloration of right fifth toe and lateral margin of forefoot. Tenderness present on the surrounding right foot. Musculoskeletal: Tenderness present on the right foot. Muscle strength 4+/5 at knee and 4/5 at right ankle joint. Neurological: Cranial nerves II-XII grossly intact, DTR 2+/4. Bilateral peripheral neuropathy of feet Psych/Mental Status: At affect. Assessment & Plan Assessment/Plan (1) Cellulitis of right foot: (2) Gangrene of toe of right foot: PLAN: Plan The patient is a 72 y/o F in podiatry service for chronic gangrene of right lateral foot. There is worsening of necrotic fifth digit and lateral forefoot has worsened with increasing pain. 1. Concern of gangrene of right lateral foot and necrotic fifth digit with surrounding cellulitis due to underlying diabetes and PAD: Patient had vascular intervention with Dr. Donato on 03/24/2022 with opening of SFA occlusion. Patient has dry gangrene of right fifth toe which has become acutely infected. Plan for partial fifth ray resection right on 04/14/2022. IV Unasyn. Dressing as per project management engineer recommendation. Nonweightbearing. #2. Hx VTE: History of DVT and PE, Eliquis on hold. Does not need bridging heparin drip. #3. PAD: Patient status post recent intervention for SFA occlusion, temporarily holding Plavix and Eliquis today only with planned intervention in a.m., resume as soon as possible after surgery once hemostasis controlled. #4. Diabetes mellitus type II: States patient's blood sugar usually is less than 200 at home. Hold oral home regimen, continue home insulin regimen, ADA diet, accu checks w/ ISS. #5. Hypertension: Continue home regimen including lisinopril, metoprolol, PRN hydralazine. #6. Hyperlipidemia: Not on statin therapy, encourage follow-up. #7. DVT prophylaxis: SCDs, holding patient home Eliquis therapy for OR as noted. Charges/Coding Visit Charges Inpatient E&M: 49944 Subs Hosp L2
[2022-04-14] MEDS: Metoprolol Tartrate 50 MG Tablet PO (09:23)
--- NOTE | 2022-04-14 11:15 | CASEMGMT ---
Social Work Consult: Discharge planning/custodial placement Referral source: Medical team. Marital/Social History: to Juventino Ahumada for the past 6 years. Reports to have a daughter that lives in [place], [place]. Living Situation: Lives with spouse in a 1-story home with 1 step to enter Insurance: [employer] Medicare with prescription benefits Pharmacy: Patient utilizes [employer] for 90 day supply of medication. If patient is need, local preferred pharmacy is [facility] in [place]. Primary Care Doctor: Dr. Carlson Advanced directives: None, patient wishes to complete. This 7th grade social studies teacher able to counseling services director patient on advanced directives and then completed forms with patient. Copy of forms placed on patient chart, original provided to patient. LNOK: Juventino Ahumada. Transportation: [facility] provides all transportation for patient. DME: [employer] and front wheeled walker. Prior level of functioning: Independent without a device. Support: Reports to have limited support in the community outside of [facility]. Patient reports that [facility] is able to assist with dressing changes and wound care needs. Community Services: Patient is active with the [facility] at [facility] and has next appointment on 2022 @ 10am. residential/home health history: Patient reports no history of home health services or custodial stay. Mental Health: Patient denies current mental health issues/concerns or history of. Patient denies suicidal thoughts, plans, intents or history of. Assessment: Met with patient in room. Introduced self and 7th grade social studies teacher role. Patient agreeable to speak with this 7th grade social studies teacher. Patient spouse, Juventino present. Patient provided verbal permission for this 7th grade social studies teacher to speak openly with Juventino present. Patient to have foot surgery today and unsure of needs after surgery. This 7th grade social studies teacher going over possible options for patient after surgery such as home health care, outpatient wound clinic or custodial placement. Patient is hoping to be able to return to home with spouse to assist with wound care management and physical needs but is open to custodial placement if needed. This 7th grade social studies teacher provided patient with list of in-network [facility] facilities that are local to patient geographical region, patient looking over list and choosing the TCU at [facility] as first and only choice for custodial. Patient states to not be interested in any other custodial. This 7th grade social studies teacher communicating that patient name can be added to waiting list as there is currently a waiting list for TCU. This 7th grade social studies teacher communicating that if [facility] home is identified as recommended level of care for patient that a pre-cert will need to be obtained by insurance in order for insurance to cover, patient and Juventino voiced understanding. Patient with no further question. Active support and listening provided. PLAN: To be determined. Social Work to continue to follow. Seda HECK, CHRISTOPHER-S
[2022-04-14] MEDS: Dext 5%-0.45% NS 1,000 ML 75 ML IV (11:41)
[2022-04-14 11:51] LABS: Bedside Glucose 65 mg/dL (74-106)
--- NOTE | 2022-04-14 13:36 | CASEMGMT ---
Social Work Telephone call to Chrissy MILLER. This social media content manager placed patient name on life. Chrissy reports that patient is 5th in line. Seda Phillips MSW, STEVANS
--- NOTE | 2022-04-14 14:57 | CHAPLAIN ---
Type of Pastoral Visit _x__ Initial Visit ___ Follow-up Visit ___ On-call Visit ___ General Patient Visit ___ Spiritual Assessment ___ Family Conference ___ Bereavement ___ Rapid Response ___ Code Blue ___ Other (describe below) Pastoral Care Referral From _x__ Patient ___ Family ___ Nurse ___ Physician ___ Foundation Relations Director ___ Lap Cutter ___ Other (describe below) Sacrament/Intervention _x__ Active listening ___ Anointing ___ Faith ___ Bereavement ___ Communion ___ Cele exploration ___ ___ Life review _x__ Prayer ___ Reconciliation ___ Sacrament of Sick ___ Supportive presence ___ Wedding ___ Other (describe below) Pastoral Comments patient has requested prayer for her surgery which is scheduled for later today; spouse is at bedside for support; pt states she has no other worries outside of being well
[2022-04-14 15:51] LABS: Bedside Glucose 85 mg/dL (74-106)
--- NOTE | 2022-04-14 16:15 | NURSING ---
Pt to OR via bed
--- NOTE | 2022-04-14 17:10 | RAD_ITS ---
STUDY: X-RAY - RIGHT FOOT CLINICAL: Female, 72 years old. Partial 5th ray resection TECHNIQUE: 2 intraoperative view(s) of the foot. COMPARISON: None. FINDINGS: Intraoperative fluoroscopy utilized during amputation of phalanges of the fourth and fifth digits and fifth metatarsal . Fluoroscopy utilized for 0 minutes 5 seconds. RAD/Foot 2 Views IMPRESSION: Intraoperative fluoroscopy. Electronically Signed: Bryan Guan MD at 22:08 EST ,
[2022-04-14] MEDS: Lidocaine 1% (20 ml mdv) 20 ML Vial (18:00)
--- NOTE | 2022-04-14 18:15 | OP.PCM_ITS ---
Problems Associated Problem List Diagnoses (1) Gangrene of toe of right foot: (2) Cellulitis of right foot: Report of Operation Date of Procedure: 04/14/22 Pre-Operative Diagnosis: 1. Dry gangrene, right 4th/5th toe 2. Cellulitis, right foot Post-Operative Diagnosis: Same Surgery/Procedure Performed:: 1. Partial 5th ray resection, right foot 2. Amputation 4th toe, right foot Description of Surgical Findings:: Necrotic tissue preamputation upon amputations not be healthy bleeding to the residual tissue due to significant necrosis extending into the fourth digit and lack of skin for soft tissue closure of the fourth digit was amputated in order to assist closure of the soft tissue envelope under minimal tension the residual skin to the fourth digit was flapped down after to skeletization applied additional skin coverage. Surgeon: Yazan Grimaldo hydraulic dredge operator: None (SALONI ramirez) Type of Anesthesia: General Special Medications: 20cc 2.0% lidocaine plain Specimen's removed: Right 4th/5th toe for culture and path Drains: none Estimated Blood Loss (mL): 30cc Description of Procedure: Patient brought back the operating placed comfortably in the supine position on the operating room table all osseous prominences were offloaded prevent any compression neuropraxia's. Well-padded ankle tourniquet was applied to right lower extremity should be noted that this was not used throughout the case. Right lower extremity scrubbed prepped draped using typical aseptic manner. Local anesthesia was performed using a reverse Villasenor block using 10 cc 2.0% lido blanquita plain to the fifth ray on the right foot using standard technique. Once cleared by anesthesia necrotic tissue extending down the shaft of the fifth metatarsal into the fifth digit and into the fourth digit was excised in its entirety down to level of bone the fifth digit was amputated at the level of metatarsal phalangeal joint at this time a decision was made to amputate the fourth digit at the level of the metatarsal phalangeal joint due to significant necrosis down to the level of bone and need for additional soft tissue closure the proximal middle and distal phalanges were dissected using 15 blade and pickups from the skin and soft tissue the nailbed was excised as well this tissue was split and flapped down to allow for additional soft tissue closure under minimal tension. The fifth metatarsal was removed by about 70% using a sagittal saw this specimen was sent to the back table would be split and sent to microbiology for bone culture and pathology for further examination. Residual tissue at this time was noted to be bleeding and healthy in nature. This was flushed with copious amounts of normal sterile saline using low-pressure pulse lavage. Next incision was closed using simple interrupted 2-0 Prolene. Additional anesthesia was performed using 10 cc 2.0% lidocaine plain making a total of 20 cc used using a reverse Villasenor block technique. Incision site was cleansed and dressed with Betadine paint Adaptic 4 x 4's and Kerlix. AP and lateral fluoroscopic images were taken to evaluate the surgical site. Patient tolerated procedure and anesthesia well in apparent satisfactory condition. Patient was transferred to PACU with vital signs and vascular status intact all digits for further monitoring prior to transfer back to floor. Patient will continue to be monitored closely will require prolonged period of nonweightbearing. Complications none Admit VTE Documentation VTE Present on Admission: Yes VTE Mechan Device Prophylaxis: SCD's VTE Pharm Prophylaxis ordered?: Yes
[2022-04-14 19:05] LABS: Bedside Glucose 152 mg/dL (74-106)
[2022-04-14] MEDS: Pantoprazole Sodium 40 MG Tablet PO (20:43)
[2022-04-14] MEDS: Atorvastatin Calcium 40 MG Tablet PO (20:43)
[2022-04-14 21:36] LABS: Bedside Glucose 167 mg/dL (74-106)
[2022-04-15] MEDS: oxyCODONE 5 MG Tablet PO ×5 (00:26→17:30)
[2022-04-15] MEDS: Acetaminophen 325 MG Tablet 650 MG PO ×2 (00:26→11:15)
[2022-04-15] MEDS: 0.9% Saline Lock 10 ML Syringe IV ×4 (02:17→20:19)
[2022-04-15] MEDS: Morphine 4 MG/ML Syringe IV ×3 (02:18→20:19)
[2022-04-15 05:00] VITALS: BP 138/65; PULSE 73; RESP 16; TEMP 36.6; O2SAT 99
[2022-04-15] MEDS: Sucralfate 1 GM Tablet PO ×3 (06:26→17:29)
[2022-04-15 07:06] VITALS: O2SAT 98
[2022-04-15 07:25] LABS: Bedside Glucose 143 mg/dL (74-106)
--- NOTE | 2022-04-15 09:01 | PCM.PN.HOSP ---
Subjective Subjective Follow-up for right fourth and fifth ray amputation postop. Patient complain of severe pain 8-10/10 intensity. Started on pain regimen along with gabapentin. Objective Data Objective Data Vital Signs: Vital Signs Temp Pulse Resp BP Pulse Ox O2 Del Method 98 F 73 16 138/65 H 98 Room Air 04/15/22 05:00 04/15/22 05:00 04/15/22 05:00 04/15/22 05:00 04/15/22 07:06 04/15/22 07:06 Oxygen Delivery Method Room Air Weight: 115 lb Body Mass Index (BMI) 21.0 Intake & Output: Intake and Output for Last 24 Hours 04/13/22 04/14/22 04/15/22 23:59 23:59 23:59 Intake Total 112 / 112 1336.00 / 1336.00 224 / 224 Balance 112 / 112 1336.00 / 1336.00 224 / 224 Lab / Micro Data Result Diagrams: 04/14/22 03:39 04/14/22 03:39 Labs: Laboratory Results - last 24 hr 04/14/22 11:26: POC Glucose 65 L 04/14/22 15:28: POC Glucose 85 04/14/22 18:43: POC Glucose 152 H 04/14/22 20:39: POC Glucose 167 H 04/15/22 06:30: POC Glucose 143 H Radiography Diagnostic Testing: Radiology Impression Foot X-Ray 04/14/22 17:10 IMPRESSION: Intraoperative fluoroscopy. Electronically Signed: Bryan Guan MD at 22:08 EST , Physical Exam Narrative Physical exam General: Alert, Oriented x3, Cooperative HEENT: Atraumatic, PERRLA, EOMI, Normocephalic Oral: No Gingival or Mucosal Lesions/ Ulcerations Neck: Supple, No JVD, Negative Carotid Bruits Lungs: Air entry diminished in bilateral lung bases. No crepitation/rhonchi Cardiovascular: Regular rate, Regular Rhythm, Normal S1, Normal S2, No murmurs. Diminished pulse on bilateral TAPER/FINISHER and DPA Right side. Abdomen: Bowel Sounds Present, Soft, Non Tender, Non-Distended : No renal angle tenderness. No suprapubic tenderness. Extremities: No edema, Capillary Refill Less than 3 Seconds Skin: Status post right fourth and fifth toe amputation. Tenderness present on the surrounding right foot. Musculoskeletal: Tenderness present on the right foot. Muscle strength 4+/5 at knee and 4/5 at right ankle joint. Neurological: Cranial nerves II-XII grossly intact, DTR 2+/4. Bilateral peripheral neuropathy of feet Psych/Mental Status: At affect. Assessment & Plan Assessment/Plan (1) Cellulitis of right foot: (2) Gangrene of toe of right foot: PLAN: Plan The patient is a 72 y/o F in podiatry service for chronic gangrene of right lateral foot. There is worsening of necrotic fifth digit and lateral forefoot has worsened with increasing pain. 1. Concern of gangrene of right lateral foot and necrotic fifth digit with surrounding cellulitis due to underlying diabetes and PAD: Patient had vascular intervention with Dr. Donato on 03/24/2022 with opening of SFA occlusion. Patient has dry gangrene of right fifth toe which has become acutely infected. Plan for partial fifth ray resection right on 04/14/2022. IV Unasyn. Dressing as per commutator operator recommendation. Nonweightbearing. 04/15: Patient had right foot partial fifth ray resection and amputation of fourth toe. Complain of severe pain. On oxycodone 5 to 10 mg for moderate to severe pain along with gabapentin. Scheduled Tylenol 1000 mg every 8 hourly. Discussed with nursing staff. #2. Hx VTE: History of DVT and PE, Eliquis on hold. Does not need bridging heparin drip. #3. PAD: Patient status post recent intervention for SFA occlusion, temporarily holding Plavix and Eliquis today only with planned intervention in a.m., resume as soon as possible after surgery once hemostasis controlled. #4. Diabetes mellitus type II: States patient's blood sugar usually is less than 200 at home. Hold oral home regimen, continue home insulin regimen, ADA diet, accu checks w/ ISS. #5. Hypertension: Continue home regimen including lisinopril, metoprolol, PRN hydralazine. #6. Hyperlipidemia: Not on statin therapy, encourage follow-up. #7. DVT prophylaxis: SCDs, holding patient home Eliquis therapy for OR as noted. Charges/Coding Visit Charges Inpatient E&M: 84810 Subs Hosp L2
[2022-04-15 09:28] VITALS: PULSE 77
[2022-04-15] MEDS: Lisinopril 10 MG Tablet PO (09:28)
[2022-04-15] MEDS: Atorvastatin Calcium 40 MG Tablet PO (09:28)
[2022-04-15] MEDS: Metoprolol Tartrate 50 MG Tablet PO (09:28)
[2022-04-15] MEDS: Insulin Glargine-YFGN 100 UNIT/ML Pen 80 UNIT SC (09:29)
[2022-04-15] MEDS: Pantoprazole Sodium 40 MG Tablet PO (09:29)
[2022-04-15 10:00] VITALS: BP 122/75; PULSE 77; RESP 15; TEMP 36.8; O2SAT 98
--- NOTE | 2022-04-15 12:02 | CASEMGMT ---
Addendum entered by Yumiko Fragoso 04/15/22 12:45: Received tc back from Stella at [facility], they have accepted pt and plan for SOC on Tuesday. Pt aware. Original Note: MARKIE BURDEN spoke with pod who would like [facility] to see pt. Plan for pt to dc today. Spoke with therapy who is recommending a FWW. MARKIE BURDEN in to pt room, pt at bedside. Patient was provided a list of [facility] providers including quality and resource use data and consistent with the patient?s preferred geographic region, medical needs, and insurance network were provided from the [employer] Guide. Also discussed local DME companies. Pt and chose [facility] and [employer]. Pt denies further needs for homegoing. Asked [employer] rep to give pt info regarding w/c rental. Made referal to [employer] for FWW via [facility]port. TC to [facility], left message on intake's line with referral, will await acceptance.
[2022-04-15 12:06] LABS: Bedside Glucose 94 mg/dL (74-106)
--- NOTE | 2022-04-15 12:31 | PCM.PROGNOTE ---
Subjective Subjective Patient seen 1 day postop. Patient has some pain to the surgical site. Denies constitutional symptoms. No issues with voiding or passing gas. Objective Data Objective Data Vital Signs: Vital Signs Temp Pulse Resp BP Pulse Ox O2 Del Method 98.3 F 77 15 122/75 H 98 Room Air 04/15/22 10:00 04/15/22 10:00 04/15/22 10:00 04/15/22 10:00 04/15/22 10:00 04/15/22 11:00 Oxygen Delivery Method Room Air Weight: 52.163 kg Body Mass Index (BMI) 21.0 Intake & Output: Intake and Output for Last 24 Hours 04/13/22 04/14/22 04/15/22 23:59 23:59 23:59 Intake Total 112 / 112 1336.00 / 1336.00 336 / 336 Balance 112 / 112 1336.00 / 1336.00 336 / 336 Lab / Micro Data Result Diagrams: 04/14/22 03:39 04/14/22 03:39 Labs: Laboratory Results - last 24 hr 04/14/22 15:28: POC Glucose 85 04/14/22 18:43: POC Glucose 152 H 04/14/22 20:39: POC Glucose 167 H 04/15/22 06:30: POC Glucose 143 H 04/15/22 11:43: POC Glucose 94 Micro: Microbiology 04/14/22 17:45 Tissue - Other Wound Culture - Preliminary Staphylococcus aureus Radiography Diagnostic Testing: Radiology Impression Foot X-Ray 04/14/22 17:10 IMPRESSION: Intraoperative fluoroscopy. Electronically Signed: Bryan Guan MD at 22:08 EST , Physical Exam Narrative Patient AOx3 Neurovascular status unchanged Amputation of fourth digit and fifth digit with partial fifth ray resection noted on the right lower extremity with well approximated incision intact sutures no acute signs of infection. No signs of DVT clinically Assessment & Plan Assessment/Plan (1) Cellulitis of right foot: (2) Gangrene of toe of right foot: PLAN: Plan Patient examined and evaluated. After and amputation of tissue I have little concern for residual infection. Intraoperatively cultures are growing staph aureus but I do not recommend antibiotics upon discharge. I will plan to follow the patient weekly to ensure no infection develops or worsens. Patient educated on signs symptoms of infection and noted to contact us if she does develop that develops any Incisional site was noted to be intact today it was redressed with Betadine paint Adaptic 4 x 4's Kerlix. We will plan to restart Eliquis and Plavix upon discharge. Patient will discharge to home with nonweightbearing status to the right lower extremity. Patient will follow up on Tuesday of next week at the wound care center. Patient will get home health care dressing changes consisting of Adaptic 4 x 4's Kerlix to the right foot once a week. A second dressing change will be performed by us at the wound care center. Patient will remain nonweightbearing can use a walker as assisted with heel touch in a surgical shoe for transfer purposes only.
--- NOTE | 2022-04-15 12:40 | DS.PCM_ITS ---
Providers Date of Admission: 04/14/22 Primary Care Physician: Dr. Alfonso Carlson MD Consultations 04/13/22 12:45 Consult: Hospitalist Routine Consulting Provider: [facility] Reason for Consult: medical management EMERGENT Consult: No MD Notified: Yes Date Notified: 04/13/22 Time Notified: 16:00 Method of Notification: Text Reason For Visit: RIGHT FOOT WET GANGRENE Diagnosis Discharge Diagnosis (1) Cellulitis of right foot: Status: Acute Code(s): L03.115 - Cellulitis of right lower limb (2) Gangrene of toe of right foot: Status: Acute Code(s): I96 - Gangrene, not elsewhere classified Plan Patient examined and evaluated. After and amputation of tissue I have little concern for residual infection. Intraoperatively cultures are growing staph aureus but I do not recommend antibiotics upon discharge. I will plan to follow the patient weekly to ensure no infection develops or worsens. Patient educated on signs symptoms of infection and noted to contact us if she does develop that develops any Incisional site was noted to be intact today it was redressed with Betadine paint Adaptic 4 x 4's Kerlix. We will plan to restart Eliquis and Plavix upon discharge. Patient will discharge to home with nonweightbearing status to the right lower extremity. Patient will follow up on Tuesday of next week at the wound care center. Patient will get home health care dressing changes consisting of Adaptic 4 x 4's Kerlix to the right foot once a week. A second dressing change will be performed by us at the wound care center. Patient will remain nonweightbearing can use a walker as assisted with heel touch in a surgical shoe for transfer purposes only. Medications at Discharge Home Medications metoprolol tartrate 50 mg tablet 50 mg PO DAILY BLOOD PRESSURE 03/06/19 insulin degludec 200 unit/mL (3 mL) subcutaneous pen (Tresiba FlexTouch U-200 insulin) 80 unit subcut BID diabetes 01/21/21 lisinopril 10 mg tablet 10 mg PO DAILY BP 02/17/21 diclofenac sodium 1 % topical gel (Voltaren Arthritis Pain) 2 g topical TID PRN PRN pain #100 grams 04/02/21 rosuvastatin 20 mg tablet (Crestor) 20 mg PO DAILY #90 tabs 09/08/21 acetaminophen 325 mg tablet (Tylenol) 650 mg PO Q4H PRN PRN Pain 1-10 Or Fever #0 tabs 12/09/21 apixaban 5 mg tablet 5 mg PO BID #60 tabs 12/09/21 tramadol 50 mg tablet 50 mg PO Q8H PRN Pain 02/16/22 clopidogrel 75 mg tablet (Plavix) 75 mg PO DAILY #90 tabs 03/25/22 omeprazole 40 mg capsule,delayed release 40 mg PO BID #60 caps 04/06/22 sucralfate 1 gram tablet (Carafate) 1 g PO QACHS #60 tabs 04/06/22 oxycodone 5 mg capsule 5 mg PO Q6H PRN pain 7 days #28 caps 04/15/22 Hospital Course Summary of Care Provided Hospital Course: Patient was admitted due to dry gangrene left lateral forefoot with concern for acute development of infection. To prevent any additional worsening a partial fifth ray and fourth digit amputation was performed and this was closed. At this time I believe that we removed any potential for infection patient will likely would not require any antibiotics during the outpatient setting. Patient tolerated this procedure and anesthesia well. Cultures intraoperatively are growing staph aureus we will continue to monitor the patient closely. She will be discharged home with a nonweightbearing status on home health care dressing changes once a week. She will follow-up with me on Tuesday at the wound care center. Patient will maintain his nonweightbearing status assisted by a Rollator with a surgical shoe on the right side. Physical Exam Narrative Patient AOx3 Neurovascular status unchanged Amputation of fourth digit and fifth digit with partial fifth ray resection noted on the right lower extremity with well approximated incision intact sutures no acute signs of infection. No signs of DVT clinically Weight / BMI Weight Weight: 52.163 kg Body Mass Index (BMI) 21.0 ABG / Lab / Microbiology Data Result Diagrams: 04/14/22 03:39 04/14/22 03:39 Laboratory: Laboratory Results - last 24 hr 04/14/22 15:28: POC Glucose 85 04/14/22 18:43: POC Glucose 152 H 04/14/22 20:39: POC Glucose 167 H 04/15/22 06:30: POC Glucose 143 H 04/15/22 11:43: POC Glucose 94 Microbiology: Microbiology 04/14/22 17:45 Tissue - Other Wound Culture - Preliminary Staphylococcus aureus Radiography Diagnostic Testing: Radiology Impression Foot X-Ray 04/14/22 17:10 IMPRESSION: Intraoperative fluoroscopy. Electronically Signed: Bryan Guan MD at 22:08 EST , Meaningful Use Info Meaningful Use Diagnoses (Choose all that apply): None applicable Discharge Plan Admission Admit Date/Time: 04/14/22 10:51 Attending Provider: Yazan Grimaldo Primary Care Provider: Alfonso Carlson Chi Consulting Providers: Kaleb Hawkins ; Zunilda Jaffe ; Carmen Jackson ; Brice Raymundo ; Kirsten Grewal ; Chuyita Valdivia ; Ashley Sandra [employer]EOR[employer]ACULT[employer] MEMBER ; Raymond Rice METEOROLOG[employer] FACULTY MEMBER ; Lily Mccormick Discharge Orders/Prescriptions Prescriptions: New oxycodone 5 mg capsule 5 mg PO Q6H PRN (Reason: pain) 7 Days Qty: 28 0RF No Action rosuvastatin [Crestor] 20 mg tablet 20 mg PO DAILY Qty: 90 3RF metoprolol tartrate 50 MG tablet 50 mg PO DAILY insulin degludec [Tresiba FlexTouch U-200] 200 unit/mL (3 mL) insulin pen 80 unit SUBCUT BID Hold Instructions: [place] [address]. Hold if glucose less than 130 mg/dl lisinopril 10 mg tablet 10 mg PO DAILY diclofenac sodium [Voltaren Arthritis Pain] 1 % gel 2 g topical TID PRN PRN (Reason: pain) Qty: 100 2RF acetaminophen [Tylenol] 325 mg Tablet 650 mg PO Q4H PRN PRN (Reason: Pain 1-10 Or Fever) Qty: 0 0RF Rx Instructions: For mild to moderate pain apixaban 5 mg Tablet 5 mg PO BID Qty: 60 0RF Label Comments: STOP DAY PRIOR TO OR tramadol 50 mg Tablet 50 mg PO Q8H PRN (Reason: Pain) omeprazole 40 mg capsule,delayed release(DR/EC) 40 mg PO BID Qty: 60 2RF sucralfate [Carafate] 1 gram tablet 1 g PO QACHS Qty: 60 1RF clopidogrel [Plavix] 75 mg tablet 75 mg PO DAILY Qty: 90 0RF Label Comments: STOP 1 DAY PRIOR TO OR Referrals / Follow Up: Alfonso Carlson Chi, MD [Primary Care Provider] - Disposition Discharge Orders: Discharge Patient (Routine); Ordered 04/15/22 Ordered By: Dr. Yazan Grimaldo
--- NOTE | 2022-04-15 13:31 | WOUNDNOTE ---
wound photo: right foot
--- NOTE | 2022-04-15 13:32 | WOUNDNOTE ---
wound photo: right foot
[2022-04-15] MEDS: Gabapentin 100 MG Capsule 200 MG PO ×2 (13:43→17:42)
[2022-04-15 16:55] LABS: Bedside Glucose 97 mg/dL (74-106)
[2022-04-15] MEDS: Juven (unflavored) Packet 1 PACKET PO (17:31)
[2022-04-15] MEDS: Acetaminophen 500 MG Tablet 1000 MG PO (17:42)
[2022-04-15] MEDS: FLU VACC QS2022-23(6MOS UP)/PF 60 MCG/0.5 ML SYRINGE IM (18:28)
[2022-04-15 19:47] VITALS: BP 122/81; PULSE 69; RESP 16; TEMP 36.6; O2SAT 97
[2022-04-15 23:57] VITALS: BP 140/57; PULSE 75; RESP 16; TEMP 36.6; O2SAT 100
[2022-04-16] MEDS: oxyCODONE 5 MG Tablet PO ×3 (00:06→11:16)
[2022-04-16] MEDS: Sucralfate 1 GM Tablet PO ×3 (00:06→11:14)
[2022-04-16] MEDS: Pantoprazole Sodium 40 MG Tablet PO ×2 (00:06→09:09)
[2022-04-16] MEDS: Insulin Lispro 100 UNIT/ML INSULN.PEN SC ×2 (00:08→06:11)
[2022-04-16 00:30] LABS: Bedside Glucose 168 mg/dL (74-106)
[2022-04-16] MEDS: Acetaminophen 500 MG Tablet 1000 MG PO ×2 (03:39→11:14)
[2022-04-16 05:58] LABS: Absolute Lymphocyte Count 1.91 X10^3/uL (0.83-4.51); Absolute Neutrophil Count 7.1 X10^3/uL (2.0-7.7); Basophil# 0.02 X10^3/uL; Basophil% 0.2 % (0-1); Eosinophil# 0.09 X10^3/uL; Eosinophils% 0.9 % (0-5); Hematocrit 32.4 % (37-47); Hemoglobin 10.5 g/dL (12.0-15.0); Lymphocyte # 1.91 X10^3/ul (0.83-4.51); Lymphocyte % 19.1 % (19-41); Mean Corp Hgb Conc 32.4 g/dL (32-36); Mean Corpuscular Hgb 27.9 pg (27.0-32.0); Mean Corpuscular Volume 86.2 fL (81-99); Mean Platelet Vol. 8.8 fl (6.2-12.0); Monocyte# 0.78 X10^3/uL; Monocyte% 7.8 % (0-10); NRBC Flagged by Analyzer 0 % (0-5); Neutrophil # 7.14 X10^3/uL (2.7-7.7); Neutrophil % 71.4 % (47-70); Platelet Count 213 K/mm3 (150-450); RBC Distribution Width CV 17.2 % (11.6-14.6); RBC Distribution Width SD 54.6 fl (35.1-43.9); Red Blood Count 3.76 M/mm3 (4.2-5.4)
[2022-04-16 06:00] VITALS: BP 149/54; PULSE 76; RESP 16; TEMP 36.9; O2SAT 99
[2022-04-16 06:06] VITALS: BP 149/54; PULSE 77; RESP 16; TEMP 36.6; O2SAT 98
[2022-04-16 06:18] LABS: Anion Gap 4 (5-15); BUN 35 mg/dL (7-18); BUN/Creat Ratio 39.1 RATIO (10-20); Calcium,Total 8.5 mg/dL (8.5-10.1); Chloride 109 mmol/L (98-107); EST Glomerular Filtration Rate 66 mL/min (>60); Est Glom Filt Rate - Afr Amer 79 mL/min (>60); Estimated Creatinine Clearance 44.03 ml/min; Glucose 203 mg/dL (74-106); Potassium 4.8 mmol/L (3.5-5.1); Sodium Level 140 mmol/L (136-145)
[2022-04-16 07:10] LABS: Bedside Glucose 170 mg/dL (74-106)
[2022-04-16 08:20] VITALS: O2SAT 98
[2022-04-16] MEDS: Gabapentin 100 MG Capsule 200 MG PO ×2 (09:07→11:34)
[2022-04-16] MEDS: Juven (unflavored) Packet 1 PACKET PO (09:07)
[2022-04-16 09:08] VITALS: PULSE 80
[2022-04-16] MEDS: Metoprolol Tartrate 50 MG Tablet PO (09:08)
[2022-04-16] MEDS: Lisinopril 10 MG Tablet PO (09:08)
[2022-04-16] MEDS: Atorvastatin Calcium 40 MG Tablet PO (09:09)
[2022-04-16] MEDS: Insulin Glargine-YFGN 100 UNIT/ML Pen 80 UNIT SC (09:10)
[2022-04-16 09:52] VITALS: BP 148/58; PULSE 80; RESP 14; TEMP 36.9; O2SAT 99
--- NOTE | 2022-04-16 09:59 | CASEMGMT ---
Spoke with Mayra regarding HHC, aware pt will dc today.
--- NOTE | 2022-04-16 10:27 | PCM.PN.HOSP ---
Subjective Subjective Follow-up for Right diabetic foot. Objective Data Objective Data Vital Signs: Vital Signs Temp Pulse Resp BP Pulse Ox O2 Del Method 98.4 F 80 14 148/58 H 99 Room Air 04/16/22 09:52 04/16/22 09:52 04/16/22 09:52 04/16/22 09:52 04/16/22 09:52 04/16/22 09:52 Oxygen Delivery Method Room Air Weight: 114 lb 15.996 oz Body Mass Index (BMI) 21.0 Intake & Output: Intake and Output for Last 24 Hours 04/14/22 04/15/22 04/16/22 23:59 23:59 23:59 Intake Total 1336.00 / 1336.00 698 / 698 224 / 224 Balance 1336.00 / 1336.00 698 / 698 224 / 224 Lab / Micro Data Result Diagrams: 04/16/22 05:37 04/16/22 05:37 Labs: Laboratory Results - last 24 hr 04/15/22 11:43: POC Glucose 94 04/15/22 16:36: POC Glucose 97 04/16/22 00:07: POC Glucose 168 H 04/16/22 05:37: WBC 10.0, RBC 3.76 L, Hgb 10.5 L, Hct 32.4 L, MCV 86.2, MCH 27.9, MCHC 32.4, RDW Std Deviation 54.6 H, RDW Coeff of Melvina 17.2 H, Plt Count 213, MPV 8.8, Immature Gran % (Auto) 0.600, Neut % (Auto) 71.4 H, Lymph % (Auto) 19.1, [place] % (Auto) 7.8, Eos % (Auto) 0.9, Baso % (Auto) 0.2, Absolute Neuts (auto) 7.1, Absolute Lymphs (auto) 1.91, Nucleated RBC % 0 04/16/22 05:37: Sodium 140, Potassium 4.8, Chloride 109 H, Carbon Dioxide 27.0, Anion Gap 4 L, BUN 35 H, Creatinine 0.90, Estim Creat Clear Calc 44.03, Est GFR (MDRD) Af Amer 79, Est GFR (MDRD) Non-Af 66, BUN/Creatinine Ratio 39.1 H, Glucose 203 H, Calcium 8.5 04/16/22 06:04: POC Glucose 170 H Micro: Microbiology 04/14/22 17:45 Tissue - Other Gram Stain - Final 04/14/22 17:45 Tissue - Other Wound Culture - Preliminary Staphylococcus aureus Physical Exam Narrative Patient is discharged from podiatry yesterday but patient was having severe pain on the right foot and leg, unbearable pain therefore was not discharged. Today her pain is controlled 3-4/10 intensity. Nonweightbearing advised Physical exam General: Alert, Oriented x3, Cooperative HEENT: Atraumatic, PERRLA, EOMI, Normocephalic Oral: No Gingival or Mucosal Lesions/ Ulcerations Neck: Supple, No JVD, Negative Carotid Bruits Lungs: Air entry diminished in bilateral lung bases. No crepitation/rhonchi Cardiovascular: Regular rate, Regular Rhythm, Normal S1, Normal S2, No murmurs. Diminished pulse on bilateral SHOWROOM MANAGER and DPA Right side. Abdomen: Bowel Sounds Present, Soft, Non Tender, Non-Distended : No renal angle tenderness. No suprapubic tenderness. Extremities: No edema, Capillary Refill Less than 3 Seconds Skin: Status post right fourth and fifth toe amputation. Mild tenderness present on the surrounding right foot. Musculoskeletal: Tenderness present on the right foot. Muscle strength 4+/5 at knee and 4/5 at right ankle joint. Neurological: Cranial nerves II-XII grossly intact, DTR 2+/4. Bilateral peripheral neuropathy of feet Psych/Mental Status: At affect. Assessment & Plan Assessment/Plan (1) Cellulitis of right foot: (2) Gangrene of toe of right foot: PLAN: Plan The patient is a 72 y/o F in podiatry service for chronic gangrene of right lateral foot. There is worsening of necrotic fifth digit and lateral forefoot has worsened with increasing pain. 1. Concern of gangrene of right lateral foot and necrotic fifth digit with surrounding cellulitis due to underlying diabetes and PAD: Patient had vascular intervention with Dr. Donato on 03/24/2022 with opening of SFA occlusion. Patient has dry gangrene of right fifth toe which has become acutely infected. Plan for partial fifth ray resection right on 04/14/2022. IV Unasyn. Dressing as per glove former recommendation. Nonweightbearing. 04/15: Patient had right foot partial fifth ray resection and amputation of fourth toe. Complain of severe pain. On oxycodone 5 to 10 mg for moderate to severe pain along with gabapentin. Scheduled Tylenol 1000 mg every 8 hourly. Discussed with nursing staff. 04/16: Dressing is dry.As per podiatry note, complete removal of the infectious angiomatous tissue was done. Patient will not require antibiotic in the outpatient setting. Nonweightbearing reinforced. #2. Hx VTE: History of DVT and PE, Eliquis on hold. Does not need bridging heparin drip. #3. PAD: Patient status post recent intervention for SFA occlusion, temporarily holding Plavix and Eliquis today only with planned intervention in a.m., resume as soon as possible after surgery once hemostasis controlled. 04/16 advised follow-up with vascular surgeon Dr. Shayne Donato. #4. Diabetes mellitus type II: States patient's blood sugar usually is less than 200 at home. Hold oral home regimen, continue home insulin regimen, ADA diet, accu checks w/ ISS. 04/16: Glucoses well controlled was in 90s. Today 203 in BMP #5. Hypertension: Continue home regimen including lisinopril, metoprolol, PRN hydralazine. #6. Hyperlipidemia: Not on statin therapy, encourage follow-up. #7. DVT prophylaxis: SCDs, holding patient home Eliquis therapy for OR as noted. Follow-up with podiatry and wound center advised. Microbiology Past 72 Hours 04/14/22 17:45 Tissue - Other Gram Stain - Final 04/14/22 17:45 Tissue - Other Wound Culture - Preliminary Staphylococcus aureus Laboratory Results 04/15/22 11:43: POC Glucose 94 04/15/22 16:36: POC Glucose 97 04/16/22 00:07: POC Glucose 168 H 04/16/22 05:37: WBC 10.0, RBC 3.76 L, Hgb 10.5 L, Hct 32.4 L, MCV 86.2, MCH 27.9, MCHC 32.4, RDW Std Deviation 54.6 H, RDW Coeff of Melvina 17.2 H, Plt Count 213, MPV 8.8, Immature Gran % (Auto) 0.600, Neut % (Auto) 71.4 H, Lymph % (Auto) 19.1, [place] % (Auto) 7.8, Eos % (Auto) 0.9, Baso % (Auto) 0.2, Absolute Neuts (auto) 7.1, Absolute Lymphs (auto) 1.91, Nucleated RBC % 0 04/16/22 05:37: Sodium 140, Potassium 4.8, Chloride 109 H, Carbon Dioxide 27.0, Anion Gap 4 L, BUN 35 H, Creatinine 0.90, Estim Creat Clear Calc 44.03, Est GFR (MDRD) Af Amer 79, Est GFR (MDRD) Non-Af 66, BUN/Creatinine Ratio 39.1 H, Glucose 203 H, Calcium 8.5 04/16/22 06:04: POC Glucose 170 H Charges/Coding Visit Charges Inpatient E&M: 79660 Subs Hosp L2
--- NOTE | 2022-04-16 11:32 | PN_ITS ---
Subjective Subjective No changes overnight. pain improved today. Denies constitutionals. Denies symptoms of DVT. Objective Data Objective Data Vital Signs: Vital Signs Temp Pulse Resp BP Pulse Ox O2 Del Method 98.4 F 80 14 148/58 H 99 Room Air 04/16/22 09:52 04/16/22 09:52 04/16/22 09:52 04/16/22 09:52 04/16/22 09:52 04/16/22 09:52 Oxygen Delivery Method Room Air Weight: 52.163 kg Body Mass Index (BMI) 21.0 Intake & Output: Intake and Output for Last 24 Hours 04/14/22 04/15/22 04/16/22 23:59 23:59 23:59 Intake Total 1336.00 / 1336.00 698 / 698 224 / 224 Balance 1336.00 / 1336.00 698 / 698 224 / 224 Lab / Micro Data Result Diagrams: 04/16/22 05:37 04/16/22 05:37 Labs: Laboratory Results - last 24 hr 04/15/22 11:43: POC Glucose 94 04/15/22 16:36: POC Glucose 97 04/16/22 00:07: POC Glucose 168 H 04/16/22 05:37: WBC 10.0, RBC 3.76 L, Hgb 10.5 L, Hct 32.4 L, MCV 86.2, MCH 27.9, MCHC 32.4, RDW Std Deviation 54.6 H, RDW Coeff of Melvina 17.2 H, Plt Count 213, MPV 8.8, Immature Gran % (Auto) 0.600, Neut % (Auto) 71.4 H, Lymph % (Auto) 19.1, [place] % (Auto) 7.8, Eos % (Auto) 0.9, Baso % (Auto) 0.2, Absolute Neuts (auto) 7.1, Absolute Lymphs (auto) 1.91, Nucleated RBC % 0 04/16/22 05:37: Sodium 140, Potassium 4.8, Chloride 109 H, Carbon Dioxide 27.0, Anion Gap 4 L, BUN 35 H, Creatinine 0.90, Estim Creat Clear Calc 44.03, Est GFR (MDRD) Af Amer 79, Est GFR (MDRD) Non-Af 66, BUN/Creatinine Ratio 39.1 H, Glucose 203 H, Calcium 8.5 04/16/22 06:04: POC Glucose 170 H Micro: Microbiology 04/14/22 17:45 Tissue - Other Gram Stain - Final 04/14/22 17:45 Tissue - Other Wound Culture - Preliminary Staphylococcus aureus Physical Exam Narrative Patient AOx3 Neurovascular status unchanged Amputation of fourth digit and fifth digit with partial fifth ray resection noted on the right lower extremity with well approximated incision intact sutu res no acute signs of infection. No signs of DVT clinically Assessment & Plan Assessment/Plan (1) Cellulitis of right foot: (2) Gangrene of toe of right foot: PLAN: Plan Patient examined and evaluated. Pain improved today. Incisional site was noted to be intact today it was redressed with Betadine paint Adaptic 4 x 4's Kerlix. We will plan to restart Eliquis and Plavix upon discharge. Patient will discharge to home with nonweightbearing status to the right lower extremity. Patient will follow up on Tuesday of next week at the wound care center. Patient will get home health care dressing changes consisting of Adaptic 4 x 4's Kerlix to the right foot once a week. A second dressing change will be performed by us at the wound care center. Patient will remain nonweightbearing can use a walker as assisted with heel touch in a surgical shoe for transfer purposes only.
[2022-04-16 11:35] LABS: Bedside Glucose 103 mg/dL (74-106)
[2022-04-16 12:34] VITALS: BP 152/74; PULSE 84; RESP 16; TEMP 36.9; O2SAT 95
== END 2022-04-16 15:05 | disposition home health service (06) | DRG 256 ==
PROVIDERS: Anesthesiology; Internal Medicine; Admitting Provider Podiatrist; PCP Family Medicine Geriatric Medicine; Referring Provider Podiatrist; Visit Provider Podiatrist
PROC: 0Y6V0Z0 Detachment at Right 4th Toe, Complete, Open Approach (ICD-10-PCS; principal; 2022-04-14 12:05)
DX: E11.52 Type 2 diabetes mellitus with diabetic peripheral angiopathy with gangrene (principal); L03.115 Cellulitis of right lower limb; M86.171 Other acute osteomyelitis, right ankle and foot; I96 Gangrene, not elsewhere classified; M86.671 Other chronic osteomyelitis, right ankle and foot; L97.514 Non-pressure chronic ulcer of other part of right foot with necrosis of bone; E11.42 Type 2 diabetes mellitus with diabetic polyneuropathy; E11.621 Type 2 diabetes mellitus with foot ulcer; B95.62 Methicillin resistant Staphylococcus aureus infection as the cause of diseases classified elsewhere; Z79.4 Long term (current) use of insulin; E11.69 Type 2 diabetes mellitus with other specified complication; E78.00 Pure hypercholesterolemia, unspecified; I10 Essential (primary) hypertension; Z79.01 Long term (current) use of anticoagulants; Z79.02 Long term (current) use of antithrombotics/antiplatelets; Z79.899 Other long term (current) drug therapy; Z86.711 Personal history of pulmonary embolism; Z86.718 Personal history of other venous thrombosis and embolism; Z23 Encounter for immunization
CPT/HCPCS: 36415; 73620; 73630; 76000; 80048; 80053; 82962; 83036; 85025; 85652; 86140; 87070; 87075; 87077; 87186; 87205; 88304; 88305; 88311; 93005; 97162; 97802; 99214; G0008; J7050; 90686; A4216; G0463; J0295; J2405; J7799

== ENCOUNTER 2022-04-20 10:00 | Outpatient (RCR) | payer MEDICARE, SELFPAY ==
[2022-04-04 00:27] VITALS: BP 151/49; PULSE 68; RESP 16; TEMP 35.6; BMI 22.6
[2022-04-13 10:10] VITALS: BP 180/65; PULSE 98; RESP 20; TEMP 36.2; BMI 22.6
--- NOTE | 2022-04-13 10:52 | PN.PCM_ITS ---
History of Present Illness Date of Service: 04/13/22 Chief Complaint: Right lateral foot, proximal to 5th toe History of Wound: This 72-year-old female position patient presents to clinic with dry gangrene to her right lateral forefoot. Patient underwent recent revascularization per Dr. Donato on 03/24/2022 which opened up a SFA occlusion. Patient denies constitutional symptoms been ambulating in surgical shoe. Notes some pain to the wound site. Patient is a poorly controlled diabetic type II w ith the last documented A1c being 10.91-year prior. There has not been improvement to the patient's diet since this time. Some worsening of pain and gangrene today. Objective Data Objective Data Vital Signs: Vital Signs Temp Pulse Resp BP 97.2 F L 98 20 H 180/65 H 04/13/22 10:10 04/13/22 10:10 04/13/22 10:10 04/13/22 10:10 Weight: 56.245 kg Body Mass Index (BMI) 22.6 Physical Exam Narrative Patient alert oriented to person place and time x3. Upon examination today dorsalis pedis and posterior tibial pulses on the right lower extremity were monophasic. Atrophic skin changes noted. Neurologic light touch protective sensation diminished to bilateral feet. Reestablish mid tibia. Dermatologic dry gangrenous eschar noted to the distal lateral right forefoot encompassing the fifth metatarsal head and proximal shaft of the fifth metatarsal laterally as well as approximately 60% of the distal fifth digit and includes the medial aspect of the fourth digit on the right lower extremity. No signs of infection deep probing. This appears to be well adhered at this time. The right fifth digit appears to be atrophic in nature Musculoskeletal: No gross deformities noted. Muscular strength diminished to bilateral lower extremity 4 out of 5 to all muscular groups. Debridement Note Debridement Note Post-Debridement Measurements and Additional Note: Post-Debridement Measurements/Treatment - Nurse 1 - General Ulcer Assessment Start: 04/13/22 10:06 Freq: Status: Active Protocol: SAMIREXKeegan Activity Type Activity Date Activity User E-sign Co-sign Detail Recorded Client Recorded Date Recorded By Document 04/13/22 10:10 DL [id number] 04/13/22 10:19 DL 04/13/22 10:10 - Today's Visit Information Type of service Follow-up Visit (Physician/IRONER OR PRESSER ) Arrival Mode Walker Transfer Assistance None Patient Identification Verified (Name & Yes ) Height and Weight Body Mass Index (BMI) 22.6 BMI Classification Normal Vital Signs Temperature (97.8 F-99.1 F) 97.2 F L Temperature Source Temporal Pulse Rate (60-100) 98 Pulse Location Monitor Respiratory Rate (12-18) 20 H Respiratory rate source Observation Blood Pressure (90/60-120/80) 180/65 H Blood Pressure Mean (mm Hg) 103 Source Monitor History Since Last Visit- (Skip if this is Patient's initial visit) Have you changed medications since your No last visit? Any new allergies or adverse reactions No Had a fall/change in ADL's that may No increase risk of falls Signs or symptoms of abuse and/or No neglect since last visit Have you been in the hospital since your No last visit? Has dressing in place as prescribed Yes Has compression in place as prescribed N/A Has offloadiing in place as prescribed Yes Experienced any changes in pain level or No management Right Footwear Surgical Shoe with pressure relief insole Pain Scale: 0-10 Numeric Is Patient Pain Free? Yes WC - Nurse 1 - General Ulcer Measurement Start: 04/13/22 10:06 Freq: Status: Active Protocol: Activity Type Activity Date Activity User E-sign Co-sign Detail Recorded Client Recorded Date Recorded By Document 04/13/22 10:10 DL [id number] 04/13/22 10:19 DL 04/13/22 10:10 Wound Center Nurse 1 #4 right Lateral foot -Current Size (cm) - Length 8.5 -Current Size (cm) - Width 3 -Current Size (cm) - Depth 0.1 -Total Square Cm 25.5 -Photo Taken Yes #7- R INNER 5TH TOE -Current Size (cm) - Length 1.5 -Current Size (cm) - Width 1.5 -Current Size (cm) - Depth 0.1 -Total Square Cm 2.25 -Photo Taken Yes -Exudate Amt Small -Wound Margin Distinct, Outline Attached -Granulation Amt None Present (0 %) -Necrosis Amt Large (67-100%) -Necrotic Tissue Type Eschar -Structure Exposed N/A -Texture (Damaris-wound Skin Appearance) Scarring -Moisture (Damaris-wound Skin Appearance) Dry/Scaly -Color (Damaris-wound Skin Appearance) Erythema,Rubor -Temperature (Damaris-wound Skin No Abnormality Appearance) (Pt Warm) -Tenderness on Palpation (Damaris-wound No Skin Appearance) -Ulcer Cleansing Soap and Water -Foul Odor after Cleansing No #6- R INNER 4TH TOE -Current Size (cm) - Length 1.1 -Current Size (cm) - Width 1.4 -Current Size (cm) - Depth 0.1 -Total Square Cm 1.54 -Photo Taken Yes -Granulation Amt None Present (0 %) -Necrosis Amt Large (67-100%) -Necrotic Tissue Type Eschar -Structure Exposed N/A -Texture (Damaris-wound Skin Appearance) Scarring -Moisture (Damaris-wound Skin Appearance) No Abnormality -Color (Damaris-wound Skin Appearance) Erythema,Rubor -Temperature (Damaris-wound Skin No Abnormality Appearance) (Pt Warm) -Tenderness on Palpation (Damaris-wound No Skin Appearance) -Ulcer Cleansing Soap and Water -Foul Odor after Cleansing No #5- R LATERAL FOOT -Current Size (cm) - Length 8.5 -Current Size (cm) - Width 3 -Current Size (cm) - Depth 0.1 -Total Square Cm 25.5 -Photo Taken Yes -Exudate Amt None Present -Granulation Amt None Present (0 %) -Necrosis Amt Large (67-100%) -Necrotic Tissue Type Eschar -Structure Exposed N/A -Texture (Damaris-wound Skin Appearance) Scarring -Moisture (Damaris-wound Skin Appearance) No Abnormality -Color (Damaris-wound Skin Appearance) Erythema,Rubor -Temperature (Damaris-wound Skin No Abnormality Appearance) (Pt Warm) -Ulcer Cleansing Soap and Water -Foul Odor after Cleansing No WC - Nurse 2 - General Ulcer CM Notes Start: 04/13/22 10:06 Freq: Status: Active Protocol: Activity Type Activity Date Activity User E-sign Co-sign Detail Recorded Client Recorded Date Recorded By Document 04/13/22 10:35 SENTHIL [id number] 04/13/22 10:36 SENTHIL 04/13/22 10:35 Wound Center Nurse 2 #7- R INNER 5TH TOE -Correct Patient No -Correct Side, Site, Position No -Correct Procedure No -Procedure Performed No -Wound/Ulcer Outcome Not Healed #6- R INNER 4TH TOE -Correct Patient No -Correct Side, Site, Position No -Correct Procedure No -Procedure Performed No -Wound/Ulcer Outcome Not Healed #5- R LATERAL FOOT -Correct Patient No -Correct Side, Site, Position No -Correct Procedure No -Procedure Performed No -Wound/Ulcer Outcome Not Healed Pain Scale: 0-10 Numeric Is Patient Pain Free? Yes Assessment/Plan Assessment/Plan (1) Peripheral vascular disease, unspecified: CODE(S): I73.9 - Peripheral vascular disease, unspecified PLAN: Exam performed. Reviewed operative report from 03/24/22 Dr. Donato. Appears patient has significant calcification of lower extremity arteries; however, he was able to open up SFA occlusion. Due to worsening today plan is for hospital admission with amputation of fifth ray tomorrow. Patient sent to admitting. (2) Type 2 diabetes mellitus with diabetic polyneuropathy: CODE(S): E11.42 - Type 2 diabetes mellitus with diabetic polyneuropathy (3) Non-pressure chronic ulcer of other part of right foot with fat layer exposed: CODE(S): L97.512 - Non-pressure chronic ulcer of other part of right foot with fat layer exposed
[2022-04-20 10:02] VITALS: BP 156/69; PULSE 79; RESP 16; TEMP 35.5; BMI 22.6
--- NOTE | 2022-04-20 10:46 | PCM.WC.PN ---
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 Patient underwent recent revascularization per Dr. Donato on 03/24/2022 which opened up a SFA occlusion. Patient denies constitutional symptoms been ambulating in surgical shoe. Notes some pain to the wound site. Patient is a poorly controlled diabetic type II with the last documented A1c being 10.91-year prior. There has not been improvement to the patient's diet since this time. Some worsening of pain and gangrene today. Progress of Wound: Patient presents today 6 days postop from right partial fifth ray resection with amputation of fourth digit. Denies constitutional's. Pain is resolved at this time. Denies any calf pain chest pain shortness of breath. Objective Data Objective Data Vital Signs: Vital Signs Temp Pulse Resp BP O2 Del Method 96 F L 79 16 156/69 H Room Air 04/20/22 10:02 04/20/22 10:02 04/20/22 10:02 04/20/22 10:02 04/20/22 10:02 Oxygen Delivery Method Room Air Weight: 56.245 kg Body Mass Index (BMI) 22.6 Physical Exam Narrative Patient alert oriented to person place and time x3. Upon examination today dorsalis pedis and posterior tibial pulses on the right lower extremity were monophasic. Atrophic skin changes noted. Neurologic light touch protective sensation diminished to bilateral feet. Reestablish mid tibia. Incision of partial fourth ray resection is well approximated with intact sutures. There is some early signs of flap discoloration and potential necrosis along the distal aspect of the incision where the fourth digit was flapped downward to assist wound coverage. No signs of infection. Musculoskeletal: No gross deformities noted. Muscular strength diminished to bilateral lower extremity 4 out of 5 to all muscular groups. Debridement Note Debridement Note Post-Debridement Measurements and Additional Note: Post-Debridement Measurements/Treatment WC - Nurse 1 - General Ulcer Assessment Start: 04/13/22 10:06 Freq: Status: Active Protocol: LOWEXT Activity Type Activity Date Activity User E-sign Co-sign Detail Recorded Client Recorded Date Recorded By Document 04/13/22 10:10 DL [id number] 04/13/22 10:19 DL Document 04/20/22 10:02 [facility] [id number] 04/20/22 10:16 BM 04/13/22 04/20/22 10:10 10:02 - Today's Visit Information Type of service Follow-up Visit Follow-up Visit (Physician/DIE TRIPPER (Physician/DIE TRIPPER ) ) Arrival Mode Walker Ambulatory Transfer Assistance None None Accompanied by Patient Identification Verified (Name & Yes Yes ) Patient Requires Transmission-Based No Precautions Height and Weight Body Mass Index (BMI) 22.6 22.6 BMI Classification Normal Normal Vital Signs Temperature (97.8 F-99.1 F) 97.2 F L 96 F L Temperature Source Temporal Temporal Pulse Rate (60-100) 98 79 Pulse Location Monitor Monitor Respiratory Rate (12-18) 20 H 16 Respiratory rate source Observation Observation Oxygen Delivery Method Room Air Blood Pressure (90/60-120/80) 180/65 H 156/69 H Blood Pressure Mean (mm Hg) 103 98 Source Monitor Monitor Position Sitting Blood Pressure Location Left Arm History Since Last Visit- (Skip if this is Patient's initial visit) Have you changed medications since your No No last visit? Any new allergies or adverse reactions No No Had a fall/change in ADL's that may No No increase risk of falls Signs or symptoms of abuse and/or No No neglect since last visit Have you been in the hospital since your No No last visit? Has dressing in place as prescribed Yes Yes Has compression in place as prescribed N/A N/A Has offloadiing in place as prescribed Yes Yes Experienced any changes in pain level or No No management Left Footwear Surgical Shoe with pressure relief insole Right Footwear Surgical Shoe Regular Shoe with pressure relief insole Pain Scale: 0-10 Numeric Is Patient Pain Free? Yes Yes - Nurse 1 - General Ulcer Measurement Start: 04/13/22 10:06 Freq: Status: Active Protocol: Activity Type Activity Date Activity User E-sign Co-sign Detail Recorded Client Recorded Date Recorded By Document 04/13/22 10:10 DL [id number] 04/13/22 10:19 DL Document 04/20/22 10:02 [facility] [id number] 04/20/22 10:16 [facility] 04/13/22 04/20/22 10:10 10:02 Wound Center Nurse 1 #8- R LAT FOOT POST OP -Combined with other wound No -Current Size (cm) - Length 8.9 -Current Size (cm) - Width 2.1 -Current Size (cm) - Depth 0.1 -Total Square Cm 18.69 -Date of Last Picture (Recall this 04/20/22 field) -Photo Taken Yes -Epithelialization None Present -Tunneling No -Undermining/Tunneling No -Circular Undermining No -Exudate Amt None Present -Wound Margin Distinct, Outline Attached -Granulation Amt None Present (0 %) -Slough/Fibrin Yes -Necrosis Amt Large (67-100%) -Necrotic Tissue Type Eschar -Texture (Damaris-wound Skin Appearance) Assessed, Scarring -Moisture (Damaris-wound Skin Appearance) Assessed,Dry/ Scaly -Color (Damaris-wound Skin Appearance) Assessed -Temperature (Damaris-wound Skin No Abnormality Appearance) (Pt Warm) -Tenderness on Palpation (Damaris-wound No Skin Appearance) -Ulcer Cleansing Soap and Water -Foul Odor after Cleansing No -Wound Comment(s) SUTURES INTACT #7- R INNER 5TH TOE -Combined with other wound Yes -Combined with (Name of Wound-Exactly #8- R LAT FOOT as it is documented) POST OP -Current Size (cm) - Length 1.5 -Current Size (cm) - Width 1.5 -Current Size (cm) - Depth 0.1 -Total Square Cm 2.25 -Photo Taken Yes -Exudate Amt Small -Wound Margin Distinct, Outline Attached -Granulation Amt None Present (0 %) -Necrosis Amt Large (67-100%) -Necrotic Tissue Type Eschar -Structure Exposed N/A -Texture (Damaris-wound Skin Appearance) Scarring -Moisture (Damaris-wound Skin Appearance) Dry/Scaly -Color (Damaris-wound Skin Appearance) Erythema,Rubor -Temperature (Damaris-wound Skin No Abnormality Appearance) (Pt Warm) -Tenderness on Palpation (Damaris-wound No Skin Appearance) -Ulcer Cleansing Soap and Water -Foul Odor after Cleansing No #6- R INNER 4TH TOE -Combined with other wound Yes -Combined with (Name of Wound-Exactly #8 R LAT FOOT as it is documented) POST OP -Current Size (cm) - Length 1.1 -Current Size (cm) - Width 1.4 -Current Size (cm) - Depth 0.1 -Total Square Cm 1.54 -Photo Taken Yes -Granulation Amt None Present (0 %) -Necrosis Amt Large (67-100%) -Necrotic Tissue Type Eschar -Structure Exposed N/A -Texture (Damaris-wound Skin Appearance) Scarring -Moisture (Damaris-wound Skin Appearance) No Abnormality -Color (Damaris-wound Skin Appearance) Erythema,Rubor -Temperature (Damaris-wound Skin No Abnormality Appearance) (Pt Warm) -Tenderness on Palpation (Damaris-wound No Skin Appearance) -Ulcer Cleansing Soap and Water -Foul Odor after Cleansing No #5- R LATERAL FOOT -Combined with other wound Yes -Combined with (Name of Wound-Exactly #8 R LAT FOOT as it is documented) POST OP -Current Size (cm) - Length 8.5 -Current Size (cm) - Width 3 -Current Size (cm) - Depth 0.1 -Total Square Cm 25.5 -Photo Taken Yes -Exudate Amt None Present -Granulation Amt None Present (0 %) -Necrosis Amt Large (67-100%) -Necrotic Tissue Type Eschar -Structure Exposed N/A -Texture (Damaris-wound Skin Appearance) Scarring -Moisture (Damaris-wound Skin Appearance) No Abnormality -Color (Damaris-wound Skin Appearance) Erythema,Rubor -Temperature (Damaris-wound Skin No Abnormality Appearance) (Pt Warm) -Ulcer Cleansing Soap and Water -Foul Odor after Cleansing No #4 right Lateral foot -Current Size (cm) - Length 8.5 -Current Size (cm) - Width 3 -Current Size (cm) - Depth 0.1 -Total Square Cm 25.5 -Photo Taken Yes - Nurse 2 - General Ulcer CM Notes Start: 04/13/22 10:06 Freq: Status: Active Protocol: Activity Type Activity Date Activity User E-sign Co-sign Detail Recorded Client Recorded Date Recorded By Document 04/13/22 10:35 SENTHIL [id number] 04/13/22 10:36 Document 04/20/22 10:22 SENTHIL [id number] 04/20/22 10:23 04/13/22 04/20/22 10:35 10:22 Wound Center Nurse 2 #8- R LAT FOOT POST OP -Correct Patient No -Correct Side, Site, Position No -Correct Procedure No -Procedure Performed No -Wound/Ulcer Outcome Amputation #7- R INNER 5TH TOE -Correct Patient No -Correct Side, Site, Position No -Correct Procedure No -Procedure Performed No -Wound/Ulcer Outcome Not Healed #6- R INNER 4TH TOE -Correct Patient No -Correct Side, Site, Position No -Correct Procedure No -Procedure Performed No -Wound/Ulcer Outcome Not Healed #5- R LATERAL FOOT -Correct Patient No -Correct Side, Site, Position No -Correct Procedure No -Procedure Performed No -Wound/Ulcer Outcome Not Healed Pain Scale: 0-10 Numeric Is Patient Pain Free? Yes Yes - Nurse 3 - General Ulcer D/C NN Start: 04/13/22 10:06 Freq: Status: Active Protocol: Activity Type Activity Date Activity User E-sign Co-sign Detail Recorded Client Recorded Date Recorded By Document 04/13/22 10:51 [facility] [id number] 04/13/22 10:52 [facility] Document 04/20/22 10:35 [facility] [id number] 04/20/22 10:37 [facility] 04/13/22 04/20/22 10:51 10:35 Wound Care Nurse 3 #7- R INNER 5TH TOE -Ulcer Cleansing Rinsed/ Irrigated with Saline -Foul Odor after Cleansing No -Primary Dressing Applied Other -Other Dressing BETADINE -Primary Dressing Covered/Secured with Dry Gauze & Roll Gauze, Secured with Tape #6- R INNER 4TH TOE -Ulcer Cleansing Rinsed/ Irrigated with Saline -Foul Odor after Cleansing No -Other Dressing BETADINE -Primary Dressing Covered/Secured with Dry Gauze & Roll Gauze, Secured with Tape #5- R LATERAL FOOT -Ulcer Cleansing Rinsed/ Irrigated with Saline -Foul Odor after Cleansing No -Other Dressing BETADINE -Primary Dressing Covered/Secured with Dry Gauze & Roll Gauze, Secured with Tape Treatment Response Procedure Procedure Tolerated Well Tolerated Well Pain Scale: 0-10 Numeric Is Patient Pain Free? Yes Yes - Visit Discharge Discharge Condition Stable Stable Ambulatory Status Ambulatory, Ambulatory, Walker Walker Transportation Private Auto Private Auto Accompanied by Notes: BACTROBAN, BRENNON, MYKELLIBethany Facility Type Home Health Assessment/Plan Assessment/Plan (1) Peripheral vascular disease, unspecified: CODE(S): I73.9 - Peripheral vascular disease, unspecified PLAN: Exam performed. Reviewed operative report from 03/24/22 Dr. Donato. Appears patient has significant calcification of lower extremity arteries; however, he was able to open up SFA occlusion. Partial fifth ray resection with amputation fourth digit performed in the OR. Patient is 6 days postop. She is nonweightbearing. Per she has a Rollator and she sits on it and he pushes her in the time she gets around. She is a surgical shoe if she needs to balance on her heel for transfer purposes. Dressing was just changed today applied Bactroban ointment Adaptic and DSD without compression. Patient will follow up in 1 week we will repeat radiographs. Discussed with patient and that there is some signs of possible flap dying to the distal aspect of the incision this will likely result in a wound which will require local wound care until resolution. (2) Type 2 diabetes mellitus with diabetic polyneuropathy: CODE(S): E11.42 - Type 2 diabetes mellitus with diabetic polyneuropathy (3) Non-pressure chronic ulcer of other part of right foot with fat layer exposed: CODE(S): L97.512 - Non-pressure chronic ulcer of other part of right foot with fat layer exposed
== END 2022-04-20 16:13 | disposition home or self-care (01) ==
LOC: WC 10:00
PROVIDERS: PCP Family Medicine Geriatric Medicine; Visit Provider Podiatrist
DX: E11.621 Type 2 diabetes mellitus with foot ulcer (principal); E11.52 Type 2 diabetes mellitus with diabetic peripheral angiopathy with gangrene; L97.512 Non-pressure chronic ulcer of other part of right foot with fat layer exposed
CPT/HCPCS: 99214; G0463

== ENCOUNTER → 2022-04-29 | Outpatient (CLI) | payer MEDICARE, SELFPAY | END | disposition home or self-care (01) | PROVIDERS: PCP Family Medicine Geriatric Medicine; Referring Provider Podiatrist; Visit Provider Podiatrist | DX: L97.512 Non-pressure chronic ulcer of other part of right foot with fat layer exposed (principal) | CPT/HCPCS: 87070; 87077; 87186; 87205 ==

== ENCOUNTER 2022-05-01 11:06 | Emergency (ER) | payer MEDICARE, SELFPAY ==
[2022-05-01 11:07] VITALS: BP 147/69; PULSE 81; RESP 17; TEMP 35.9; O2SAT 100; BMI 20.5
--- NOTE | 2022-05-01 11:34 | EX.ED.DYSGE1 ---
HPI History of Present Illness Chief Complaint: Lower Extremity Injury Detail of Chief Complaint: Right foot pain Informant: patient Narrative Narrative: Patient present secondary to right foot pain. On April 14 she had a partial fifth ray resection and amputation of the fourth toe secondary to dry gangrene and cellulitis. Her sutures removed after surgery. Family states the next day when they took the dressing down the wound had opened up. 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 She was prescribed doxycycline. Patient presents today secondary to pain. Does appear the patient has been prescribed oxycodone twice daily. She should have medication through the . states he did not give it to her last evening and she did not have any today. [facility] Medical History Arthritis Diabetes Essential (primary) hypertension Gastric reflux High cholesterol History of venous thromboembolism Hormone deficiency Hyperlipidemia PAD (peripheral artery disease) Post-menopausal Seasonal allergies Type 2 diabetes mellitus Wears glasses Home Medications metoprolol tartrate 50 mg tablet 50 mg PO DAILY BLOOD PRESSURE 03/06/19 [History Last Taken 1 Day Ago ~04/05/22] insulin degludec 200 unit/mL (3 mL) subcutaneous pen (Tresiba FlexTouch U-200 insulin) 80 unit subcut BID diabetes 01/21/21 [History Last Taken 02/17/21] lisinopril 10 mg tablet 10 mg PO DAILY BP 02/17/21 [History Last Taken 02/17/21] diclofenac sodium 1 % topical gel (Voltaren Arthritis Pain) 2 g topical TID PRN PRN pain #100 grams 04/02/21 [Rx Last Taken Unknown] rosuvastatin 20 mg tablet (Crestor) 20 mg PO DAILY #90 tabs 09/08/21 [Rx Last Taken Unknown] acetaminophen 325 mg tablet (Tylenol) 650 mg PO Q4H PRN PRN Pain 1-10 Or Fever #0 tabs 12/09/21 [Rx Last Taken Unknown] apixaban 5 mg tablet 5 mg PO BID #60 tabs 12/09/21 [Rx Last Taken 04/05/22] tramadol 50 mg tablet 50 mg PO Q8H PRN Pain 02/16/22 [History Last Taken Unknown] clopidogrel 75 mg tablet (Plavix) 75 mg PO DAILY #90 tabs 03/25/22 [Rx Last Taken 04/05/22] omeprazole 40 mg capsule,delayed release 40 mg PO BID #60 caps 04/06/22 [Rx Last Taken Unknown] sucralfate 1 gram tablet (Carafate) 1 g PO QACHS #60 tabs 04/06/22 [Rx Last Taken Unknown] oxycodone 5 mg capsule 5 mg PO Q6H PRN pain 7 days #28 caps 04/15/22 [Rx Last Taken Unknown] Allergy/AdvReac Type Severity Reaction Status Date / Time diphenhydramine Allergy Swelling Verified 05/01/22 11:07 [From Benadryl] Family History Father Heart disease Hypertension Mother Diabetes Hypertension Kidney disease Liver disease Other Arthritis Surgical History History of S/P foot surgery, right Social History household members: spouse housing: house history of recent travel: No other: Patient did have notable secondhand tobacco exposure from [employer]. Smoking Status: Never smoker alcohol intake: never substance use type: does not use what type of physical activity do you participate in: none ROS ROS ED Constitutional Constitutional ED: Denies chills or fever(s) Eyes Eyes: Denies change in vision or discharge from eye(s) ENT ENT ED: Denies discharge from eye(s), rhinorrhea or sore throat Cardiovascular Cardiovascular: Denies chest pain or palpitations Respiratory/Chest Respiratory/Chest: Denies cough or dyspnea Gastrointestinal Gastrointestinal: Denies abdominal pain, nausea or vomiting Genitourinary Genitourinary ED: Denies dysuria Musculoskeletal Musculoskeletal: Reports extremity pain; Denies back pain Neurologic Neurologic: Denies headache(s) or weakness Psychiatric Psychiatric: Denies anxiety or depression Allergic/Immunologic Allergic/Immunologic ED: Denies lip swelling or urticaria EXAM Physical Exam Const Vital Signs: 05/01/22 11:07 Temperature 96.6 F L Temperature Source Temporal Pulse Rate 81 Respiratory Rate 17 Blood Pressure 147/69 H Blood Pressure Mean 95 Pulse Ox 100 Oxygen Delivery Method Room Air Positive well nourished and well developed General Appearance ED: well developed HEENT Reports moist mucous membranes Eyes EOMs intact bilaterally Chest Wall inspection of chest normal and palpation of chest normal Resp normal respiratory effort and clear to auscultation bilaterally Cardio regular rate and regular rhythm Extremity Extremity Narrative: Right foot dressing removed. Patient has open wounds noted over the distal aspect of the lateral foot at the site of her prior ray resection. Good cap refill is noted. No calf or heel tenderness. No wound drainage or sign of infection. Neuro oriented x3 MDM MDM MDM Narrative Medical decision making narrative: Patient was given a dose of IM morphine here for pain control. Right foot x-rays are obtained. Radiography Diagnostic Testing: Clinical Impression(s) from Imaging Studies Foot X-Ray 05/01/22 12:00 IMPRESSION: No plain film evidence of osteomyelitis or acute osseous abnormality of the stump of the partially amputated right foot. Electronically Signed: Javier Stallings MD at 12:16 EST , Treatment and Re-Evaluation Narrative: Right foot x-ray per my interpretation reveals no evidence of acute infection. Prior surgical site noted. No significant subcutaneous air. I spoke with Dr. Cunningham, on-call for Dr. Grimaldo. He agrees patient can have dressing replaced and comfortable ordered on Tuesday for follow-up. Patient does have 2 tabs of oxycodone left for pain control this . Prescription that was written should have lasted her through the so I will not write her another prescription at this time. Discharge Plan Triage Chief Complaint: Lower Extremity Injury ED Provider: Chrissy Gallagher Dx/Rx/DC Orders Clinical Impression: Post-op pain Instructions: ED Post Op Wound Check, Pain Prescriptions: No Action rosuvastatin [Crestor] 20 mg tablet 20 mg PO DAILY Qty: 90 3RF metoprolol tartrate 50 MG tablet 50 mg PO DAILY insulin degludec [Tresiba FlexTouch U-200] 200 unit/mL (3 mL) insulin pen 80 unit SUBCUT BID Hold Instructions: [place] [address]. Hold if glucose less than 130 mg/dl lisinopril 10 mg tablet 10 mg PO DAILY diclofenac sodium [Voltaren Arthritis Pain] 1 % gel 2 g topical TID PRN PRN (Reason: pain) Qty: 100 2RF acetaminophen [Tylenol] 325 mg Tablet 650 mg PO Q4H PRN PRN (Reason: Pain 1-10 Or Fever) Qty: 0 0RF Rx Instructions: For mild to moderate pain apixaban 5 mg Tablet 5 mg PO BID Qty: 60 0RF Label Comments: STOP DAY PRIOR TO OR tramadol 50 mg Tablet 50 mg PO Q8H PRN (Reason: Pain) omeprazole 40 mg capsule,delayed release(DR/EC) 40 mg PO BID Qty: 60 2RF sucralfate [Carafate] 1 gram tablet 1 g PO QACHS Qty: 60 1RF oxycodone 5 mg capsule 5 mg PO Q6H PRN (Reason: pain) 7 Days Qty: 28 0RF clopidogrel [Plavix] 75 mg tablet 75 mg PO DAILY Qty: 90 0RF Label Comments: STOP 1 DAY PRIOR TO OR Primary Care Provider: Alfonso Carlson Chi Referrals: Yazan Grimaldo DPM [Med Staff - Active Staff] - As Needed Alfonso Carlson Chi, MD [Primary Care Provider] - Disposition Disposition: Home, Self Care
[2022-05-01] MEDS: Morphine 4 MG/ML Syringe 8 MG IM (11:55)
--- NOTE | 2022-05-01 12:00 | RAD_ITS ---
EXAM: XR RIGHT FOOT COMPLETE, 3 OR MORE VIEWS CLINICAL INDICATION: Right foot pain. TECHNIQUE: Frontal, lateral and oblique views of the right foot. This report was created using [employer] report generation technology. COMPARISON: None. FINDINGS: BONES/JOINTS: Unremarkable. No acute fracture. No subluxation. Normal alignment. Preservation of the joint space. No sclerotic or destructive changes observed. Normal appearing stump of the right fifth base metatarsal. SOFT TISSUES: Soft tissue swelling overlying the fourth toe stump. Missing phalanges of the right fourth toe from previous amputation. No radiopaque foreign body. RAD/Foot min 3 Views IMPRESSION: No plain film evidence of osteomyelitis or acute osseous abnormality of the stump of the partially amputated right foot. Electronically Signed: Javier Stallings MD at 12:16 EST ,
== END 2022-05-01 13:48 | disposition home or self-care (01) ==
PROVIDERS: Emergency Provider Emergency Medicine; PCP Family Medicine Geriatric Medicine; Visit Provider Emergency Medicine
DX: G89.18 Other acute postprocedural pain (principal); M79.671 Pain in right foot; Z86.718 Personal history of other venous thrombosis and embolism
CPT/HCPCS: 73630; 96372; 99282

== ENCOUNTER 2022-05-06 15:37 | Inpatient (IN) | payer MEDICARE, SELFPAY ==
[2022-05-06 15:39] VITALS: BP 132/62; PULSE 90; RESP 14; TEMP 36.8; O2SAT 100; BMI 21.9
--- NOTE | 2022-05-06 16:06 | EDS_ITS ---
HPI History of Present Illness Chief Complaint: Wound PFSH PFS Medical History Arthritis Diabetes Essential (primary) hypertension Gastric reflux High cholesterol History of venous thromboembolism Hormone deficiency Hyperlipidemia PAD (peripheral artery disease) Post-menopausal Seasonal allergies Type 2 diabetes mellitus Wears glasses Home Medications metoprolol tartrate 50 mg tablet 50 mg PO DAILY BLOOD PRESSURE 03/06/19 [History Last Taken 05/06/22] insulin degludec 200 unit/mL (3 mL) subcutaneous pen (Tresiba FlexTouch U-200 insulin) 80 unit subcut BID diabetes 01/21/21 [History Last Taken 05/06/22] lisinopril 10 mg tablet 10 mg PO DAILY BP 02/17/21 [History Last Taken 05/06/22] acetaminophen 325 mg tablet (Tylenol) 650 mg PO Q4H PRN PRN Pain 1-10 Or Fever #0 tabs 12/09/21 [Rx Last Taken 05/06/22] apixaban 5 mg tablet 5 mg PO BID #60 tabs 12/09/21 [Rx Last Taken 05/05/22] clopidogrel 75 mg tablet (Plavix) 75 mg PO DAILY #90 tabs 03/25/22 [Rx Last Taken 05/05/22] omeprazole 40 mg capsule,delayed release 40 mg PO BID #60 caps 04/06/22 [Rx Last Taken 05/05/22] sucralfate 1 gram tablet (Carafate) 1 g PO QACHS #60 tabs 04/06/22 [Rx Last Taken 05/05/22] oxycodone 5 mg capsule 5 mg PO Q6H PRN pain 7 days #28 caps 04/15/22 [Rx Last Taken 05/06/22] ciprofloxacin HCl 750 mg tablet 750 mg PO BID ANTIBIOTIC 05/06/22 [History Last Taken 05/06/22] doxycycline hyclate 100 mg tablet 100 mg PO BID ANTIBIOTIC 05/06/22 [History Last Taken 05/06/22] Allergy/AdvReac Type Severity Reaction Status Date / Time diphenhydramine Allergy Swelling Verified 05/01/22 11:07 [From Gabi] Family History Father Heart disease Hypertension Mother Diabetes Hypertension Kidney disease Liver disease Other Arthritis Surgical History History of S/P foot surgery, right Social History household members: spouse housing: house history of recent travel: No other: Patient did have notable secondhand tobacco exposure from [employer]. Smoking Status: Never smoker alcohol intake: never substance use type: does not use what type of physical activity do you participate in: none EXAM Physical Exam Const Vital Signs: 05/06/22 15:39 05/06/22 18:46 Temperature 98.2 F Temperature Source Temporal Pulse Rate 90 88 Respiratory Rate 14 16 Blood Pressure 132/62 H 134/87 H Blood Pressure Mean 85 102 Pulse Ox 100 99 Oxygen Delivery Method Room Air Positive well nourished and obese General Appearance ED: NAD Nutritional Appearance: obese HEENT Reports moist mucous membranes normocephalic and atraumatic Neck full ROM Resp normal respiratory effort and no retractions Auscultation: Negative for rales, rhonchi or wheezes Cardio regular rate and regular rhythm GI non-tender Extremity Extremity Narrative: Right foot has a dressing that is clean, dry, intact. There is no crepitance palpated when the wound dressing is taken down. The foot is colored dark brown because of iodine that was applied to it. Status amputation of the right fourth and fifth toes Neuro oriented x3 and CN's II-XII intact bilaterally Sensorium / Orientation: alert Motor Exam: strength 5/5 throughout and general weakness Psych mental status grossly normal MDM MDM MDM Narrative Medical decision making narrative: Patient presenting with increasing foot pain. She states she has been in a lot of pain. She has spoken to her pain management physician who sent her to the emergency room. Previously she was prescribed opiates for the pain from Dr. Grimaldo. She states is not helping. She states her wound appears to be healing well on her right foot and has not had a lot of drainage. She has not dressed and the dressing is clean, dry, intact. I spoke with Dr. Grimaldo from podiatry. He stated to me that he did wish to have her evaluated by vascular. He called Dr. Donato and was told that Dr. Donato would be out of town for the weekend, but he did express that he did want to have a CTA with runoffs to evaluate her ischemic limb. CBC was obtained for white blood cell count, hemoglobin, platelets, differential. BMP to assess renal function and electrolytes as well as glucose and anion gap. Sed rate and CRP to assess inflammatory markers. Differential currently includes but is not limited to gangrene, osteomyelitis, cellulitis, postop wound infection, ischemic limb. Patient CBC does show leukocytosis of 13.6. Hemoglobin adequate stable. Platelets normal at 398. Creatinine little bit up today at 1.06. There is suggestion of prerenal azotemia. I will give the patient a liter of IV fluids.. Glucose is slightly elevated at 165 without an anion gap. X-ray of the right foot was obtained which does not show any acute findings on my interpretation. Radiology interpretation agrees. I did follow-up with a CTA with runoffs. This shows a right superficial femoral artery graft which is occluded at its origin and reconstitutes in the mid thigh.? The distal graft is patent as is the rightpopliteal artery.? There is three-vessel runoff into the right foot. This was discussed with Dr. Grimaldo again. Given that inflammatory markers are el evated today with an ESR of 98, and a CRP of 36 which are actually her highest numbers and the white blood cell count elevation he recommends admitting her given her vancomycin and Zosyn. Patient's rosita possible sore admission. Impression: 1. Right leg ischemia 2. Osteomyelitis 3. Leukocytosis Lab Data Labs: Laboratory Results - last 24 hr 05/06/22 05/06/22 16:30 16:30 WBC 13.6 H RBC 4.48 Hgb 12.1 Hct 37.9 MCV 84.6 MCH 27.0 MCHC 31.9 L RDW Std Deviation 52.3 H RDW Coeff of Melvina 16.9 H Plt Count 398 MPV 8.6 Immature Gran % (Auto) 0.900 Neut % (Auto) 63.3 Lymph % (Auto) 27.2 [place] % (Auto) 7.8 Eos % (Auto) 0.4 Baso % (Auto) 0.4 Absolute Neuts (auto) 8.6 H Absolute Lymphs (auto) 3.70 Nucleated RBC % 0 ESR 98 H Sodium 137 Potassium 4.2 Chloride 109 H Carbon Dioxide 20.0 L Anion Gap 8 BUN 30 H Creatinine 1.06 H Estim Creat Clear Calc 37.38 Est GFR (MDRD) Af Amer 65 Est GFR (MDRD) Non-Af 54 L BUN/Creatinine Ratio 28.3 H Glucose 165 H Calcium 10.0 C-React Prot Ext Range 36.00 H Radiography Diagnostic Testing: Clinical Impression(s) from Imaging Studies Foot X-Ray 05/06/22 16:10 IMPRESSION: Stable postsurgical changes of the fifth metatarsal and fourth phalanx. There is gas in the soft tissues over the third and fourth metatarsals which may be due to recent surgery. If indicated further evaluation with MRI may be beneficial. There is no acute osseous abnormality. Electronically Signed: Deven Donnelly MD at 16:42 EST , Abdomen/Pelvis CTA 05/06/22 16:37 IMPRESSION: Right superficial femoral artery graft which is occluded at its origin and reconstitutes in the mid thigh. The distal graft is patent as is the right popliteal artery. There is three-vessel runoff into the right foot. Electronically Signed: Deven Donnelly MD at 17:51 EST , Discharge Plan Triage Chief Complaint: Wound ED Provider: Kalpesh Burt Dx/Rx/DC Orders Prescriptions: No Action metoprolol tartrate 50 MG tablet 50 mg PO DAILY insulin degludec [Tresiba FlexTouch U-200] 200 unit/mL (3 mL) insulin pen 80 unit SUBCUT BID Hold Instructions: [place] [address]. Hold if glucose less than 130 mg/dl lisinopril 10 mg tablet 10 mg PO DAILY acetaminophen [Tylenol] 325 mg Tablet 650 mg PO Q4H PRN PRN (Reason: Pain 1-10 Or Fever) Qty: 0 0RF Rx Instructions: For mild to moderate pain apixaban 5 mg Tablet 5 mg PO BID Qty: 60 0RF Label Comments: STOP DAY PRIOR TO OR omeprazole 40 mg capsule,delayed release(DR/EC) 40 mg PO BID Qty: 60 2RF sucralfate [Carafate] 1 gram tablet 1 g PO QACHS Qty: 60 1RF oxycodone 5 mg capsule 5 mg PO Q6H PRN (Reason: pain) 7 Days Qty: 28 0RF ciprofloxacin HCl 750 mg tablet 750 mg PO BID Label Comments: TAKE 1 TABLET BY MOUTH TWICE DAILY doxycycline hyclate 100 mg tablet 100 mg PO BID Label Comments: TAKE 1 TABLET BY MOUTH TWICE DAILY clopidogrel [Plavix] 75 mg tablet 75 mg PO DAILY Qty: 90 0RF Label Comments: STOP 1 DAY PRIOR TO OR Primary Care Provider: Alfonso Carlson Chi Referrals: Alfonso Carlson Chi, MD [Primary Care Provider] -
--- NOTE | 2022-05-06 16:10 | RAD_ITS ---
EXAM: XR RIGHT FOOT COMPLETE, 3 OR MORE VIEWS CLINICAL INDICATION: pain TECHNIQUE: Frontal, lateral and oblique views of the right foot. This report was created using [employer] report generation technology. COMPARISON: 04/23/2022 FINDINGS: BONES/JOINTS: There is stable postsurgical changes from amputation of the fourth phalanx as well as amputation of the mid to distal fifth metatarsal and phalanx. No acute fracture. No subluxation. Normal alignment. Preservation of the joint space. No sclerotic or destructive changes observed. SOFT TISSUES: There are small collections of gas seen within the soft tissues overlying the distal third and fourth metatarsals which appear to be present from the reference exam and may be due to postsurgical change. There are no osseous abnormalities. RAD/Foot min 3 Views IMPRESSION: Stable postsurgical changes of the fifth metatarsal and fourth phalanx. There is gas in the soft tissues over the third and fourth metatarsals which may be due to recent surgery. If indicated further evaluation with MRI may be beneficial. There is no acute osseous abnormality. Electronically Signed: Deven Donnelly MD at 16:42 EST ,
[2022-05-06] MEDS: Ondansetron 4 MG/2 ML Vial IV (16:35)
[2022-05-06] MEDS: Morphine 4 MG/ML Syringe IV ×2 (16:35→21:43)
--- NOTE | 2022-05-06 16:37 | CT_ITS ---
EXAM: CT ANGIOGRAPHY ABDOMEN AND PELVIS WITH RUNOFF TO THE LOWER EXTREMITIES WITH INTRAVENOUS CONTRAST CLINICAL INDICATION: right foot ischemia TECHNIQUE: Helically acquired angiography images were obtained of the abdomen, pelvis and lower extremities with intravenous contrast using CTA runoff protocol. This CT exam was performed using one or more of the following dose reduction techniques: automated exposure control, adjustment of the mA and/or kV according to patient size, and/or use of iterative reconstruction technique. This report was created using [employer] report generation technology. MIP reconstructed images were created and reviewed. CONTRAST: IV 100mL Isovue-370 COMPARISON: None. FINDINGS: VASCULATURE: AORTA: No acute findings. Normal caliber abdominal aorta. No occlusion or significant stenosis. No dissection. CELIAC TRUNK AND MESENTERIC ARTERIES: No acute findings. No occlusion or significant stenosis. No dissection. RENAL ARTERIES: No acute findings. No occlusion or significant stenosis. No dissection. RIGHT ILIAC ARTERIES: No acute findings. No occlusion or significant stenosis. No dissection. RIGHT FEMORAL/POPLITEAL ARTERIES: There is a right superficial femoral artery graft which is occluded at its origin with reconstitution in the mid thigh. The distal graft and popliteal artery are patent on the right. RIGHT CALF/FOOT ARTERIES: There is three-vessel runoff to the right ankle. LEFT ILIAC ARTERIES: No acute findings. No occlusion or significant stenosis. No dissection. LEFT FEMORAL/POPLITEAL ARTERIES: No acute findings. No occlusion or significant stenosis. No dissection. LEFT CALF/FOOT ARTERIES: No acute findings. No occlusion or significant stenosis. LOWER THORAX: Unremarkable. Lung bases are clear. No cardiomegaly. No significant pericardial effusion. ABDOMEN: LIVER: Unremarkable. Homogeneous. No focal mass. GALLBLADDER AND BILE DUCTS: Unremarkable. No calcified gallstones. No gallbladder distention or wall edema. No intra- or extrahepatic biliary ductal dilation. PANCREAS: Unremarkable. No focal cystic or solid mass. SPLEEN: Unremarkable. Normal size without focal cystic or solid mass. ADRENALS: Unremarkable. No nodules. KIDNEYS AND URETERS: Unremarkable. Normal renal size and position. No hydronephrosis. STOMACH AND BOWEL: Unremarkable. No stomach or bowel distention. No focal inflammatory change. PELVIS: APPENDIX: No evidence of acute appendicitis. BLADDER: Unremarkable. REPRODUCTIVE: Unremarkable as visualized. No mass. ABDOMEN, PELVIS and LOWER EXTREMITIES: INTRAPERITONEAL SPACE: Unremarkable. No ascites or other fluid collection. No free air. BONES/JOINTS: See above. SOFT TISSUES: There are irregular calcified density seen within the subcutaneous tissues of the posterior pelvis. No discrete abdominal or pelvic wall hernia. LYMPH NODES: Unremarkable. No enlarged lymph nodes. OTHER FINDINGS: All vessels in the left leg are patent. CT/CTA Abd w/Runoff W/WO Contrast IMPRESSION: Right superficial femoral artery graft which is occluded at its origin and reconstitutes in the mid thigh. The distal graft is patent as is the right popliteal artery. There is three-vessel runoff into the right foot. Electronically Signed: Deven Donnelly MD at 17:51 EST ,
[2022-05-06 16:44] LABS: Absolute Neutrophil Count 8.6 X10^3/uL (2.0-7.7); Basophil# 0.06 X10^3/uL; Basophil% 0.4 % (0-1); Eosinophil# 0.05 X10^3/uL; Eosinophils% 0.4 % (0-5); Hematocrit 37.9 % (37-47); Hemoglobin 12.1 g/dL (12.0-15.0); Lymphocyte % 27.2 % (19-41); Mean Corp Hgb Conc 31.9 g/dL (32-36); Mean Corpuscular Volume 84.6 fL (81-99); Mean Platelet Vol. 8.6 fl (6.2-12.0); Monocyte# 1.06 X10^3/uL; Monocyte% 7.8 % (0-10); NRBC Flagged by Analyzer 0 % (0-5); Neutrophil # 8.61 X10^3/uL (2.7-7.7); Neutrophil % 63.3 % (47-70); Platelet Count 398 K/mm3 (150-450); RBC Distribution Width CV 16.9 % (11.6-14.6); RBC Distribution Width SD 52.3 fl (35.1-43.9); Red Blood Count 4.48 M/mm3 (4.2-5.4); White Blood Count 13.6 K/mm3 (4.4-11.0)
[2022-05-06 16:58] LABS: Anion Gap 8 (5-15); BUN 30 mg/dL (7-18); BUN/Creat Ratio 28.3 RATIO (10-20); Chloride 109 mmol/L (98-107); Creatinine, Serum 1.06 mg/dL (0.55-1.02); EST Glomerular Filtration Rate 54 mL/min (>60); Est Glom Filt Rate - Afr Amer 65 mL/min (>60); Estimated Creatinine Clearance 37.38 ml/min; Glucose 165 mg/dL (74-106); Potassium 4.2 mmol/L (3.5-5.1); Sodium Level 137 mmol/L (136-145)
[2022-05-06 17:07] LABS: Erythrocyte Sedimentation Rate 98 mm/hr (0-30)
[2022-05-06 18:46] VITALS: BP 134/87; PULSE 88; RESP 16; O2SAT 99
[2022-05-06] MEDS: 0.9% Normal Saline 1,000 ML 999 ML IV (19:01)
[2022-05-06 19:26] VITALS: BP 140/83; PULSE 74; RESP 16; TEMP 36.8; O2SAT 98
--- NOTE | 2022-05-06 19:27 | PCM.CONS.GEN ---
Assessment & Plan Assessment/Plan (1) Gangrene of toe of right foot: PLAN: Exam performed radiographs negative for acute osteomyelitis Elevated CRP/ESR/WBC CTA ordered in ED demonstrate blockage of SFA graft, discussed results with vascular surgeon he is planning for angiogram Tuesday05/18/22. Patient will be admitted for pain management and treatment of right foot osteomyelitis Patient has significant vascular disease which will require revascularization before any definitive closed amputation or additional debridement can be performed, I will plan for surgical debridement/amputation after revascularization. This was discussed with patient and in great detail Patient's intraoperative cultures show MRSA from 04/14/22, recent wound cultures from 04/29 grew MRSA, recommend ID consult Patient will remain non-weightbearing on the right foot I will continue to follow and perform local wound care and perform dressing changes to ensure no urgent changes develop. *If at any time an acute infectious process develops and leads to acute decompensation or threatens the patient's life or limb, then I will plan to proceed with an amputation prior to revascularization. But in attempt for limb salvage, I will await revascularization until any further debridement is performed. Patient and family are understanding of this. (2) Non-pressure chronic ulcer of other part of right foot with fat layer exposed: (3) Osteomyelitis of foot, right, acute: HPI Consult Data Date of Consult: 05/06/22 HPI Narrative HPI Narrative: YENNY LUGO, is a 72 F who presents for uncontrolled pain and a dehisced surgical site to her right lateral foot in the setting of poorly controlled diabetes, peripheral neuropathy and peripheral arterial disease. Patient denies any fever, chills, nausea, chest pain, calf pain or shortness of breath. Patient has pain at rest, which is alleviated slightly with dependency. Patient has been maintaining a non-weightbearing status at home. Patient feels her pain is poorly controlled. Patient has no other complaints. [facility] Medical History Arthritis Diabetes Essential (primary) hypertension Gastric reflux High cholesterol History of venous thromboembolism Hormone deficiency Hyperlipidemia PAD (peripheral artery disease) Post-menopausal Seasonal allergies Type 2 diabetes mellitus Wears glasses Home Medications metoprolol tartrate 50 mg tablet 50 mg PO DAILY BLOOD PRESSURE 03/06/19 [History Last Taken 05/06/22] insulin degludec 200 unit/mL (3 mL) subcutaneous pen (Tresiba FlexTouch U-200 insulin) 80 unit subcut BID diabetes 01/21/21 [History Last Taken 05/06/22] lisinopril 10 mg tablet 10 mg PO DAILY BP 02/17/21 [History Last Taken 05/06/22] acetaminophen 325 mg tablet (Tylenol) 650 mg PO Q4H PRN PRN Pain 1-10 Or Fever #0 tabs 12/09/21 [Rx Last Taken 05/06/22] apixaban 5 mg tablet 5 mg PO BID #60 tabs 12/09/21 [Rx Last Taken 05/05/22] clopidogrel 75 mg tablet (Plavix) 75 mg PO DAILY #90 tabs 03/25/22 [Rx Last Taken 05/05/22] omeprazole 40 mg capsule,delayed release 40 mg PO BID #60 caps 04/06/22 [Rx Last Taken 05/05/22] sucralfate 1 gram tablet (Carafate) 1 g PO QACHS #60 tabs 04/06/22 [Rx Last Taken 05/05/22] oxycodone 5 mg capsule 5 mg PO Q6H PRN pain 7 days #28 caps 04/15/22 [Rx Last Taken 05/06/22] ciprofloxacin HCl 750 mg tablet 750 mg PO BID ANTIBIOTIC 05/06/22 [History Last Taken 05/06/22] doxycycline hyclate 100 mg tablet 100 mg PO BID ANTIBIOTIC 05/06/22 [History Last Taken 05/06/22] Allergy/AdvReac Type Severity Reaction Status Date / Time diphenhydramine Allergy Swelling Verified 05/01/22 11:07 [From Bennani] Family History Father Heart disease Hypertension Mother Diabetes Hypertension Kidney disease Liver disease Other Arthritis Surgical History History of S/P foot surgery, right Social History household members: spouse housing: house history of recent travel: No other: Patient did have notable secondhand tobacco exposure from [employer]. Smoking Status: Never smoker alcohol intake: never substance use type: does not use what type of physical activity do you participate in: none ROS Constitutional Constitutional: Denies change in weight, chills or headache(s) Eyes Eyes: Denies acute decrease in peripheral vision, change in eye color or discongugate gaze ENT HEENT: Denies bleeding gums, change in voice or epistaxis Cardiovascular Cardiovascular: Reports claudication and erythema on extremities; Denies abdominal edema, abdominal pain or chest pain at rest Respiratory/Chest Respiratory/Chest: Denies change in phlegm color, dyspnea or inability to speak Physical Exam Narrative Focused right lower extremity exam yielded atrophic skin changes, a necrotic 5th metatarsal resection site w/ no drainage - dry appearance, mild periwound erythema (non-blanchable), monophasic DP pulse, biphasic PT pulse. No other acute signs of infection. Const alert and oriented x3 Lab / Micro Data Result Diagrams: 05/06/22 16:30 05/06/22 16:30 Labs: Laboratory Results - last 24 hr 05/06/22 16:30: WBC 13.6 H, RBC 4.48, Hgb 12.1, Hct 37.9, MCV 84.6, MCH 27.0, MCHC 31.9 L, RDW Std Deviation 52.3 H, RDW Coeff of Melvina 16.9 H, Plt Count 398, MPV 8.6, Immature Gran % (Auto) 0.900, Neut % (Auto) 63.3, Lymph % (Auto) 27.2, [place] % (Auto) 7.8, Eos % (Auto) 0.4, Baso % (Auto) 0.4, Absolute Neuts (auto) 8.6 H, Absolute Lymphs (auto) 3.70, Nucleated RBC % 0, ESR 98 H 05/06/22 16:30: Sodium 137, Potassium 4.2, Chloride 109 H, Carbon Dioxide 20.0 L, Anion Gap 8, BUN 30 H, Creatinine 1.06 H, Estim Creat Clear Calc 37.38, Est GFR (MDRD) Af Amer 65, Est GFR (MDRD) Non-Af 54 L, BUN/Creatinine Ratio 28.3 H, Glucose 165 H, Calcium 10.0, C-React Prot Ext Range 36.00 H Radiology Impression Foot X-Ray 05/06/22 16:10 IMPRESSION: Stable postsurgical changes of the fifth metatarsal and fourth phalanx. There is gas in the soft tissues over the third and fourth metatarsals which may be due to recent surgery. If indicated further evaluation with MRI may be beneficial. There is no acute osseous abnormality. Electronically Signed: Deven Donnelly MD at 16:42 EST , Abdomen/Pelvis CTA 05/06/22 16:37 IMPRESSION: Right superficial femoral artery graft which is occluded at its origin and reconstitutes in the mid thigh. The distal graft is patent as is the right popliteal artery. There is three-vessel runoff into the right foot. Electronically Signed: Deven Donnelly MD at 17:51 EST ,
--- NOTE | 2022-05-06 20:00 | PCM.HP.STD ---
[facility] - General General Date of Service: 05/06/22 Chief Complaint: Painful right foot HPI Narrative YENNY LUGO, is a 72 F who presents presents with painful right foot. 72-year-old female presents with uncontrolled pain of her right foot with dehiscence of surgical site to the right lateral foot with ischemic pain. Patient has a previous undergone an SFA graft and patient did have a CTA of her abdomen and pelvis is showed the graft is occluded at the origin but reconstitutes at the mid thigh and is patent at the right popliteal artery and there is 3 vessel runoff to the right foot. Despite that, the patient's foot has continued to worsen. Patient's pain is unbearable and she saw pain management who referred her to the emergency room. Patient received vancomycin and Zosyn in the emergency room. The case discussed with Dr. Grimaldo who is only planning on doing local wound care no further surgery at this time until further revascularization can be performed. Discussed with Dr. Donato, who will be out of town until the who is planning on doing a angiogram on the for the patient that was already previously scheduled. Patient was given the option to be transferred to a tertiary facility rather be vascular surgery to readily addressed her though not necessarily perform any procedures. Patient prefers to stay here understanding that her foot could continue to get worse despite that. [facility] Medical History Arthritis Diabetes Essential (primary) hypertension Gastric reflux High cholesterol History of venous thromboembolism Hormone deficiency Hyperlipidemia PAD (peripheral artery disease) Post-menopausal Seasonal allergies Type 2 diabetes mellitus Wears glasses Home Medications metoprolol tartrate 50 mg tablet 50 mg PO DAILY BLOOD PRESSURE 03/06/19 [History Last Taken 05/06/22] insulin degludec 200 unit/mL (3 mL) subcutaneous pen (Tresiba FlexTouch U-200 insulin) 80 unit subcut BID diabetes 01/21/21 [History Last Taken 05/06/22] lisinopril 10 mg tablet 10 mg PO DAILY BP 02/17/21 [History Last Taken 05/06/22] acetaminophen 325 mg tablet (Tylenol) 650 mg PO Q4H PRN PRN Pain 1-10 Or Fever #0 tabs 12/09/21 [Rx Last Taken 05/06/22] apixaban 5 mg tablet 5 mg PO BID #60 tabs 12/09/21 [Rx Last Taken 05/05/22] clopidogrel 75 mg tablet (Plavix) 75 mg PO DAILY #90 tabs 03/25/22 [Rx Last Taken 05/05/22] omeprazole 40 mg capsule,delayed release 40 mg PO BID #60 caps 04/06/22 [Rx Last Taken 05/05/22] sucralfate 1 gram tablet (Carafate) 1 g PO QACHS #60 tabs 04/06/22 [Rx Last Taken 05/05/22] oxycodone 5 mg capsule 5 mg PO Q6H PRN pain 7 days #28 caps 04/15/22 [Rx Last Taken 05/06/22] ciprofloxacin HCl 750 mg tablet 750 mg PO BID ANTIBIOTIC 05/06/22 [History Last Taken 05/06/22] doxycycline hyclate 100 mg tablet 100 mg PO BID ANTIBIOTIC 05/06/22 [History Last Taken 05/06/22] Allergy/AdvReac Type Severity Reaction Status Date / Time diphenhydramine Allergy Swelling Verified 05/01/22 11:07 [From Benadryl] Family History Father Heart disease Hypertension Mother Diabetes Hypertension Kidney disease Liver disease Other Arthritis Surgical History History of S/P foot surgery, right Social History household members: spouse housing: house history of recent travel: No other: Patient did have notable secondhand tobacco exposure from [employer]. Smoking Status: Never smoker alcohol intake: never substance use type: does not use what type of physical activity do you participate in: none ROS ROS Narrative Patient denies other complaints other than the severe pain in her right foot. All review of systems were negative except as mentioned above in the history of present illness and the other review of systems. Vital Signs Vital Signs Vital Signs: 05/06/22 15:39 05/06/22 18:46 05/06/22 19:26 Temperature 36.8 C 36.8 C Temperature Source Temporal Temporal Pulse Rate 90 88 74 Respiratory Rate 14 16 16 Blood Pressure 132/62 H 134/87 H 140/83 H Blood Pressure Mean 85 102 102 Pulse Ox 100 99 98 Oxygen Delivery Method Room Air Room Air Weight Weight: 54.431 kg Body Mass Index (BMI) 21.9 Physical Exam Const alert and no apparent distress Constitutional Narrative: Nontoxic. Afebrile HEENT normocephalic Resp normal respiratory effort, no retractions, no use of accessory muscles and clear to auscultation bilaterally Cardio regular rate, regular rhythm, S1 normal heart sound and S2 normal heart sound GI normal to inspection, nondistended, normoactive bowel sounds, soft to palpation, non-tender, non-distended and hepatosplenomegaly Extremity Extremity Narrative: Necrotic wound on right lateral foot with wound dehiscence. Cyanosis of the third toe. Diminished pulses on the right foot. Atrophy bilaterally. Neuro Sensorium / Orientation: awake and alert Psych affect normal Results Lab / Micro Data Attestation: I reviewed the patient's lab results. Result Diagrams: 05/06/22 16:30 05/06/22 16:30 Labs: Laboratory Results - last 24 hr 05/06/22 16:30: WBC 13.6 H, RBC 4.48, Hgb 12.1, Hct 37.9, MCV 84.6, MCH 27.0, MCHC 31.9 L, RDW Std Deviation 52.3 H, RDW Coeff of Melvina 16.9 H, Plt Count 398, MPV 8.6, Immature Gran % (Auto) 0.900, Neut % (Auto) 63.3, Lymph % (Auto) 27.2, [place] % (Auto) 7.8, Eos % (Auto) 0.4, Baso % (Auto) 0.4, Absolute Neuts (auto) 8.6 H, Absolute Lymphs (auto) 3.70, Nucleated RBC % 0, ESR 98 H 05/06/22 16:30: Sodium 137, Potassium 4.2, Chloride 109 H, Carbon Dioxide 20.0 L, Anion Gap 8, BUN 30 H, Creatinine 1.06 H, Estim Creat Clear Calc 37.38, Est GFR (MDRD) Af Amer 65, Est GFR (MDRD) Non-Af 54 L, BUN/Creatinine Ratio 28.3 H, Glucose 165 H, Calcium 10.0, C-React Prot Ext Range 36.00 H Radiology Impression Foot X-Ray 05/06/22 16:10 IMPRESSION: Stable postsurgical changes of the fifth metatarsal and fourth phalanx. There is gas in the soft tissues over the third and fourth metatarsals which may be due to recent surgery. If indicated further evaluation with MRI may be beneficial. There is no acute osseous abnormality. Electronically Signed: Deven Donnelly MD at 16:42 EST , Abdomen/Pelvis CTA 05/06/22 16:37 IMPRESSION: Right superficial femoral artery graft which is occluded at its origin and reconstitutes in the mid thigh. The distal graft is patent as is the right popliteal artery. There is three-vessel runoff into the right foot. Electronically Signed: Deven Donnelly MD at 17:51 EST , Assessment & Plan Assessment/Plan (1) Gangrene of toe of right foot: PLAN: Patient will require further revascularization. I discussed case with Dr. Donato who is planning on doing angiogram on the . Explained that the patient could be discharged before then in follow-up. It is unclear if the patient be medically ready for discharge before then so is very possible the patient may remain here in the hospital until then. Patient was given the opportunity to be transferred to a tertiary facility with Onsite vascular surgery. She and her both declined that preferring to stay here understanding the risks that that this could be further compromised during her stay here. In the meantime we will treat her with antibiotics as well as a heparin drip. Appears that much of her pain is probably due to ischemia. We will try to optimize her pain control. Patient made aware that we would have to do this slowly so as not to give her too much too quickly. She is also made aware that the pain may actually start to subside as further tissue damage occurs. Continue with clopidogrel (2) Non-pressure chronic ulcer of other part of right foot with fat layer exposed: PLAN: Discussed with Dr. Grimaldo in the emergency room who saw the patient there. He is not planned doing any surgeries on her list becomes emergent given the fact that she will have adequate blood supply to reperfuse the area of surgery. Wound care Empiric antibiotics Check cultures PLAN: Plan Chronic conditions DM2: Continue with glargine and sliding scale insulin Hypertension: Stable. Continue lisinopril and metoprolol PUD: Continue with omeprazole and sucralfate. Patient had EGD on April 06 that showed a nonbleeding gastric ulcer with no stigmata of bleeding. Pathology was negative for H. pylori VTE prophylaxis: Patient is anticoagulated. Charges/Coding Visit Charges Inpatient E&M: 39193 Init Hosp L3
[2022-05-06 20:40] LABS: International Normalized Ratio 1.1; Prothrombin Time (Protime)PT. 14.2 SECONDS (11.7-14.9)
[2022-05-06 20:41] LABS: Partial Thromboplast Time 65.6 Seconds (24.1-36.2)
[2022-05-06 21:58] VITALS: BP 134/56; PULSE 72; RESP 14; TEMP 36.7; O2SAT 98
[2022-05-06 22:03] VITALS: BMI 22.0
[2022-05-06] MEDS: Pantoprazole Sodium 40 MG Tablet PO (22:52)
[2022-05-06] MEDS: Acetaminophen 500 MG Tablet 1000 MG PO (22:52)
[2022-05-06] MEDS: Sucralfate 1 GM Tablet PO (22:52)
[2022-05-06] MEDS: Insulin Glargine-YFGN 100 UNIT/ML Pen 80 UNIT SC (22:53)
[2022-05-06] MEDS: oxyCODONE 5 MG Tablet 10 MG PO (22:53)
[2022-05-06] MEDS: 0.9% Saline Lock 10 ML Syringe IV (22:56)
[2022-05-06] MEDS: HEPARIN/D5w 25,000 UNITS 25,000 UNITS/250 ML IV.SOLN. 8 UNITS CONT INF (23:00)
--- NOTE | 2022-05-06 23:02 | PCM.RX.CS ---
Consult Pharmacy has been consulted to manage selected antiobiotic: Vancomycin Type of Consult: New start Suspected Infection: Skin/Soft tissue Prior Doses of Antibiotics Received/Current Regimen: Medications Vancomycin HCl 750 mg/ Sodium (Chloride) 265 mls @ 250 mls/hr IV Q24H LEXIE Discontinued Medications Vancomycin HCl 750 mg/ Sodium (Chloride) 265 mls @ 250 mls/hr IV X1 ONE Stop: 05/06/22 19:29 Last Admin: 05/06/22 20:41 Dose: Infused Labs: Sodium 137 mmol/L (136-145) 05/06/22 16:30 Potassium 4.2 mmol/L (3.5-5.1) 05/06/22 16:30 Chloride 109 mmol/L (98-107) H 05/06/22 16:30 Carbon Dioxide 20.0 mmol/L (21.0-32.0) L 05/06/22 16:30 Anion Gap 8 (5-15) 05/06/22 16:30 BUN 30 mg/dL (7-18) H 05/06/22 16:30 Creatinine 1.06 mg/dL (0.55-1.02) H 05/06/22 16:30 Est GFR (MDRD) Af Amer 65 mL/min (>60) 05/06/22 16:30 Est GFR (MDRD) Non-Af 54 mL/min (>60) L 05/06/22 16:30 BUN/Creatinine Ratio 28.3 RATIO (10-20) H 05/06/22 16:30 Glucose 165 mg/dL (74-106) H 05/06/22 16:30 Weight used for dosin.6 kg Estimated Creatinine Clearance: 37.4 Goal Trough: 15-20 mcg/mL Pharmacy Plan for Drug Dosing: Pharmacy Service will continue to monitor and adjust dosing as required. Follow-Up Labs: Trough Vancomycin Labs to be done on [date and time ordered]: 05/08/22 @1900
[2022-05-06 23:45] LABS: Bedside Glucose 207 mg/dL (74-106)
[2022-05-07] MEDS: HYDROmorphone 0.5 MG/0.5 ML SYRINGE IV ×3 (01:03→13:25)
[2022-05-07] MEDS: oxyCODONE 5 MG Tablet 10 MG PO ×5 (02:53→23:10)
[2022-05-07 03:00] VITALS: BP 127/54; PULSE 84; RESP 18; TEMP 36.6; O2SAT 96
[2022-05-07] MEDS: Sucralfate 1 GM Tablet PO ×4 (05:25→21:31)
[2022-05-07] MEDS: Acetaminophen 500 MG Tablet 1000 MG PO ×3 (05:25→21:32)
[2022-05-07 05:56] LABS: Absolute Lymphocyte Count 2.91 X10^3/uL (0.83-4.51); Absolute Neutrophil Count 7.3 X10^3/uL (2.0-7.7); Basophil# 0.04 X10^3/uL; Basophil% 0.4 % (0-1); Eosinophil# 0.04 X10^3/uL; Eosinophils% 0.4 % (0-5); Hematocrit 31.6 % (37-47); Hemoglobin 9.9 g/dL (12.0-15.0); Lymphocyte # 2.91 X10^3/ul (0.83-4.51); Lymphocyte % 25.7 % (19-41); Mean Corp Hgb Conc 31.3 g/dL (32-36); Mean Corpuscular Volume 86.1 fL (81-99); Mean Platelet Vol. 8.8 fl (6.2-12.0); Monocyte# 0.89 X10^3/uL; Monocyte% 7.8 % (0-10); NRBC Flagged by Analyzer 0.2 % (0-5); Neutrophil # 7.32 X10^3/uL (2.7-7.7); Neutrophil % 64.5 % (47-70); Platelet Count 338 K/mm3 (150-450); RBC Distribution Width CV 17.4 % (11.6-14.6); RBC Distribution Width SD 54.5 fl (35.1-43.9); Red Blood Count 3.67 M/mm3 (4.2-5.4); White Blood Count 11.3 K/mm3 (4.4-11.0)
[2022-05-07] MEDS: Insulin Lispro 100 UNIT/ML INSULN.PEN SC ×2 (06:24→11:27)
[2022-05-07 06:35] LABS: ALB/GLOB Ratio 0.6 RATIO (0.9-2.4); AST(SGOT) 8 U/L (15-37); Alanine Aminotransfer ALT/SGPT 17 U/L (13-56); Albumin, Serum 2.4 g/dL (3.2-5.0); Alkaline Phosphatase 56 U/L (45-117); Anion Gap 6 (5-15); BUN 23 mg/dL (7-18); BUN/Creat Ratio 27.5 RATIO (10-20); Calcium,Total 8.6 mg/dL (8.5-10.1); Chloride 113 mmol/L (98-107); Creatinine, Serum 0.84 mg/dL (0.55-1.02); EST Glomerular Filtration Rate 71 mL/min (>60); Est Glom Filt Rate - Afr Amer 86 mL/min (>60); Estimated Creatinine Clearance 47.18 ml/min; Globulin 3.8 g/dL (2.2-4.2); Glucose 225 mg/dL (74-106); Potassium 3.8 mmol/L (3.5-5.1); Protein, Total 6.2 g/dL (6.4-8.2); Sodium Level 138 mmol/L (136-145)
[2022-05-07] MEDS: Insulin Glargine-YFGN 100 UNIT/ML Pen 80 UNIT SC ×2 (06:56→15:58)
[2022-05-07 07:15] LABS: Bedside Glucose 187 mg/dL (74-106)
[2022-05-07 08:23] VITALS: BP 138/59; PULSE 86; RESP 18; TEMP 36.6; O2SAT 97
[2022-05-07 08:30] VITALS: BP 138/59; PULSE 86
[2022-05-07] MEDS: Lisinopril 10 MG Tablet PO (08:30)
[2022-05-07] MEDS: Metoprolol Tartrate 50 MG Tablet PO (08:30)
[2022-05-07] MEDS: Clopidogrel Bisulfate 75 MG Tablet PO (08:30)
[2022-05-07] MEDS: Pantoprazole Sodium 40 MG Tablet PO ×2 (08:30→21:32)
[2022-05-07] MEDS: Ensure Plus High Protein 120 ML LIQUID PO ×4 (08:37→21:39)
--- NOTE | 2022-05-07 09:47 | WOUNDNOTE ---
wound photo: right foot
--- NOTE | 2022-05-07 09:47 | WOUNDNOTE ---
wound photo: right foot
--- NOTE | 2022-05-07 11:36 | PCM.PN.HOSP ---
Subjective Subjective Doing well, pain is mild though it was exacerbated with some movement earlier today Objective Data Objective Data Vital Signs: Vital Signs Temp Pulse Resp BP Pulse Ox O2 Del Method 97.9 F 86 18 138/59 H 97 Room Air 05/07/22 08:23 05/07/22 08:30 05/07/22 08:23 05/07/22 08:30 05/07/22 08:23 05/07/22 08:23 Oxygen Delivery Method Room Air Weight: 120 lb 5.958 oz Body Mass Index (BMI) 22.0 Intake & Output: Intake and Output for Last 24 Hours 05/06/22 05/07/22 05/08/22 03:59 03:59 03:59 Intake Total 1435 / 1435 419.47 / 419.47 Balance 1435 / 1435 419.47 / 419.47 Lab / Micro Data Result Diagrams: 05/07/22 05:16 05/07/22 05:16 Labs: Laboratory Results - last 24 hr 05/06/22 16:30: WBC 13.6 H, RBC 4.48, Hgb 12.1, Hct 37.9, MCV 84.6, MCH 27.0, MCHC 31.9 L, RDW Std Deviation 52.3 H, RDW Coeff of Melvina 16.9 H, Plt Count 398, MPV 8.6, Immature Gran % (Auto) 0.900, Neut % (Auto) 63.3, Lymph % (Auto) 27.2, [place] % (Auto) 7.8, Eos % (Auto) 0.4, Baso % (Auto) 0.4, Absolute Neuts (auto) 8.6 H, Absolute Lymphs (auto) 3.70, Nucleated RBC % 0, ESR 98 H 05/06/22 16:30: Sodium 137, Potassium 4.2, Chloride 109 H, Carbon Dioxide 20.0 L, Anion Gap 8, BUN 30 H, Creatinine 1.06 H, Estim Creat Clear Calc 37.38, Est GFR (MDRD) Af Amer 65, Est GFR (MDRD) Non-Af 54 L, BUN/Creatinine Ratio 28.3 H, Glucose 165 H, Calcium 10.0, C-React Prot Ext Range 36.00 H 05/06/22 20:10: PT 14.2, INR 1.1, APTT 65.6 H 05/06/22 22:51: POC Glucose 207 H 05/07/22 05:16: WBC 11.3 H, RBC 3.67 L, Hgb 9.9 L, Hct 31.6 L, MCV 86.1, MCH 27.0, MCHC 31.3 L, RDW Std Deviation 54.5 H, RDW Coeff of Melvina 17.4 H, Plt Count 338, MPV 8.8, Immature Gran % (Auto) 1.200 H, Neut % (Auto) 64.5, Lymph % (Auto) 25.7, [place] % (Auto) 7.8, Eos % (Auto) 0.4, Baso % (Auto) 0.4, Absolute Neuts (auto) 7.3, Absolute Lymphs (auto) 2.91, Nucleated RBC % 0.2 05/07/22 05:16: Sodium 138, Potassium 3.8, Chloride 113 H, Carbon Dioxide 19.0 L, Anion Gap 6, BUN 23 H, Creatinine 0.84, Estim Creat Clear Calc 47.18, Est GFR (MDRD) Af Amer 86, Est GFR (MDRD) Non-Af 71, BUN/Creatinine Ratio 27.5 H, Glucose 225 H, Calcium 8.6, Total Bilirubin 0.30, AST 8 L, ALT 17, Alkaline Phosphatase 56, Total Protein 6.2 L, Albumin 2.4 L, Globulin 3.8, Albumin/Globulin Ratio 0.6 L 05/07/22 05:16: APTT 66.0 H 05/07/22 06:19: POC Glucose 187 H Micro: Microbiology 05/06/22 23:15 Wound - Open/Non-Healing Wound Gram Stain - Final Radiography Diagnostic Testing: Radiology Impression Foot X-Ray 05/06/22 16:10 IMPRESSION: Stable postsurgical changes of the fifth metatarsal and fourth phalanx. There is gas in the soft tissues over the third and fourth metatarsals which may be due to recent surgery. If indicated further evaluation with MRI may be beneficial. There is no acute osseous abnormality. Electronically Signed: Deven Donnelly MD at 16:42 EST , Abdomen/Pelvis CTA 05/06/22 16:37 IMPRESSION: Right superficial femoral artery graft which is occluded at its origin and reconstitutes in the mid thigh. The distal graft is patent as is the right popliteal artery. There is three-vessel runoff into the right foot. Electronically Signed: Deven Donnelly MD at 17:51 EST , Physical Exam Narrative General: Alert, Oriented x3, Cooperative, No apparent distress HEENT: Atraumatic, PERRLA, EOMI, Normocephalic Oral: Moist Mucosa Neck: Supple, No JVD Lungs: Clear to auscultation, Normal air movement, No rhonchi, No wheeze, No rales Cardiovascular: Regular rate, Regular Rhythm, Normal S1, Normal S2, No murmurs Abdomen: Soft, Non Tender, Non-Distended, No Hepato-splenomegaly Extremities: Nonhealing wound on her right foot with poor circulation and an cold extremities Skin: Wound is dressed on her right foot Musculoskeletal: No Tenderness to Palpation of Joints or Extremities Neurological: Cranial nerves II-XII grossly intact, Motor Exam 5/5 strength throughout, Sensory exam intact to light touch and pain Psych/Mental Status: Normal Affect, Appropriate Assessment & Plan Assessment/Plan (1) Gangrene of toe of right foot: PLAN: She does not have issues with ischemia as she has had poor ABIs and needs to have vascular intervention however she reiterates that she refuses to go to any other hospital. I discussed with her that the longer she waits the more likely it is that she could have more extreme amputation but she still does not want to be transferred. She should be okay on her Eliquis at home but there is some concern with the ongoing infection and delayed intervention so we will consult ID for outpatient follow-up and antibiotic management (2) Non-pressure chronic ulcer of other part of right foot with fat layer exposed: PLAN: Cultures are pending but previous cultures with MRSA and Klebsiella she is on doxycycline as well as Cipro on an outpatient basis She is currently on vancomycin and Zosyn Podiatry will not operate until after she has had revascularization PLAN: Plan Chronic conditions DM2: Continue with glargine and sliding scale insulin Hypertension: Stable. Continue lisinopril and metoprolol PUD: Continue with omeprazole and sucralfate. Patient had EGD on April 06 that showed a nonbleeding gastric ulcer with no stigmata of bleeding. Pathology was negative for H. pylori DVT: Heparin drip Charges/Coding Visit Charges Inpatient E&M: 44981 [facility] Hosp L2
--- NOTE | 2022-05-07 11:51 | PCM.PROGNOTE ---
Subjective Subjective No changes overnight denies constitutionals pain comes and goes, patient comfortable this AM. Objective Data Objective Data Vital Signs: Vital Signs Temp Pulse Resp BP Pulse Ox O2 Del Method 97.9 F 86 18 138/59 H 97 Room Air 05/07/22 08:23 05/07/22 08:30 05/07/22 08:23 05/07/22 08:30 05/07/22 08:23 05/07/22 08:23 Oxygen Delivery Method Room Air Weight: 54.6 kg Body Mass Index (BMI) 22.0 Intake & Output: Intake and Output for Last 24 Hours 05/05/22 05/06/22 05/07/22 23:59 23:59 23:59 Intake Total 1435 / 1435 469.47 / 469.47 Balance 1435 / 1435 469.47 / 469.47 Lab / Micro Data Result Diagrams: 05/07/22 05:16 05/07/22 05:16 Labs: Laboratory Results - last 24 hr 05/06/22 16:30: WBC 13.6 H, RBC 4.48, Hgb 12.1, Hct 37.9, MCV 84.6, MCH 27.0, MCHC 31.9 L, RDW Std Deviation 52.3 H, RDW Coeff of Melvina 16.9 H, Plt Count 398, MPV 8.6, Immature Gran % (Auto) 0.900, Neut % (Auto) 63.3, Lymph % (Auto) 27.2, [place] % (Auto) 7.8, Eos % (Auto) 0.4, Baso % (Auto) 0.4, Absolute Neuts (auto) 8.6 H, Absolute Lymphs (auto) 3.70, Nucleated RBC % 0, ESR 98 H 05/06/22 16:30: Sodium 137, Potassium 4.2, Chloride 109 H, Carbon Dioxide 20.0 L, Anion Gap 8, BUN 30 H, Creatinine 1.06 H, Estim Creat Clear Calc 37.38, Est GFR (MDRD) Af Amer 65, Est GFR (MDRD) Non-Af 54 L, BUN/Creatinine Ratio 28.3 H, Glucose 165 H, Calcium 10.0, C-React Prot Ext Range 36.00 H 05/06/22 20:10: PT 14.2, INR 1.1, APTT 65.6 H 05/06/22 22:51: POC Glucose 207 H 05/07/22 05:16: WBC 11.3 H, RBC 3.67 L, Hgb 9.9 L, Hct 31.6 L, MCV 86.1, MCH 27.0, MCHC 31.3 L, RDW Std Deviation 54.5 H, RDW Coeff of Melvina 17.4 H, Plt Count 338, MPV 8.8, Immature Gran % (Auto) 1.200 H, Neut % (Auto) 64.5, Lymph % (Auto) 25.7, [place] % (Auto) 7.8, Eos % (Auto) 0.4, Baso % (Auto) 0.4, Absolute Neuts (auto) 7.3, Absolute Lymphs (auto) 2.91, Nucleated RBC % 0.2 05/07/22 05:16: Sodium 138, Potassium 3.8, Chloride 113 H, Carbon Dioxide 19.0 L, Anion Gap 6, BUN 23 H, Creatinine 0.84, Estim Creat Clear Calc 47.18, Est GFR (MDRD) Af Amer 86, Est GFR (MDRD) Non-Af 71, BUN/Creatinine Ratio 27.5 H, Glucose 225 H, Calcium 8.6, Total Bilirubin 0.30, AST 8 L, ALT 17, Alkaline Phosphatase 56, Total Protein 6.2 L, Albumin 2.4 L, Globulin 3.8, Albumin/Globulin Ratio 0.6 L 05/07/22 05:16: APTT 66.0 H 05/07/22 06:19: POC Glucose 187 H Micro: Microbiology 05/06/22 23:15 Wound - Open/Non-Healing Wound Gram Stain - Final Radiography Diagnostic Testing: Radiology Impression Foot X-Ray 05/06/22 16:10 IMPRESSION: Stable postsurgical changes of the fifth metatarsal and fourth phalanx. There is gas in the soft tissues over the third and fourth metatarsals which may be due to recent surgery. If indicated further evaluation with MRI may be beneficial. There is no acute osseous abnormality. Electronically Signed: Deven Donnelly MD at 16:42 EST , Abdomen/Pelvis CTA 05/06/22 16:37 IMPRESSION: Right superficial femoral artery graft which is occluded at its origin and reconstitutes in the mid thigh. The distal graft is patent as is the right popliteal artery. There is three-vessel runoff into the right foot. Electronically Signed: Deven Donnelly MD at 17:51 EST , Physical Exam Narrative Focused right lower extremity exam yielded atrophic skin changes, a necrotic 5th metatarsal resection site w/ no drainage - dry appearance, mild periwound erythema (non-blanchable), monophasic DP pulse, biphasic PT pulse. No other acute signs of infection. Const alert and oriented x3 Assessment & Plan Assessment/Plan (1) Gangrene of toe of right foot: PLAN: Exam performed radiographs negative for acute osteomyelitis Elevated CRP/ESR/WBC CTA ordered in ED demonstrate blockage of SFA graft, discussed results with vascular surgeon he is planning for angiogram Tuesday05/18/22. Patient admitted for pain management and treatment of right foot osteomyelitis No changes today, will plan to perform dressing changes every third day Patient has significant vascular disease which will require revascularization before any definitive closed amputation or additional debridement can be performed, I will plan for surgical debridement/amputation after revascularization. Patient's intraoperative cultures show MRSA from 04/14/22, recent wound cultures from 04/29 grew MRSA Vascular on board Patient will remain non-weightbearing on the right foot I will continue to follow and perform local wound care and perform dressing changes to ensure no urgent changes develop. *If at any time an acute infectious process develops and leads to acute decompensation or threatens the patient's life or limb, then I will plan to proceed with an amputation prior to revascularization. But in attempt for limb salvage, I will await revascularization until any further debridement is performed. Patient and family are understanding of this. (2) Non-pressure chronic ulcer of other part of right foot with fat layer exposed: (3) Osteomyelitis of foot, right, acute:
[2022-05-07 12:03] LABS: Partial Thromboplast Time 235.8 Seconds (24.1-36.2)
[2022-05-07 12:06] LABS: Bedside Glucose 240 mg/dL (74-106)
--- NOTE | 2022-05-07 12:10 | CM.UR ---
MARKIE BURDEN readmission note: Prior admission: Admitted 04/14/22 w/Rt foot wet gangrene. See initial SW assess completed by Cindy/EDEN on 04/14/22. Pt seen by podiatry/Dr Grimaldo, and had amputation of fourth digit and fifth digit with partial fifth ray resection. Per Dr Grimaldo note, pt did not need atb's @ discharge and to f/u on Tuesday of the next week at the wound care center after discharge. Eliquis and Plavix restarted @ discharge. Dr Grimaldo had recommended HHC for SN/dsg changes, which pt and were agreeable to and was set up with [facility]. The plan was for for HHC to complete dsg change w/ Adaptic 4 x 4's Kerlix to the right foot once a week. A second dressing change was to be performed at the wound care center. Pt discharged home 04/16 w/ a WW and to maintain NWB status and with heel touch in a surgical shoe for transfer purposes only. Current admission: Admitted 05/06 w/right foot necrosis. Call placed to Rona @ [facility], who states pt's declined HHC services once pt returned home. RN CM to [facility] to talk w/pt. She states they did not feel she needed HHC, as she knows how to complete her own dressing changes and has no difficulty in doing them. She states her can also assist, if needed. She states she did f/u w/her appts, stating she did see Dr Carlson since being discharged and also went to the [facility] and Dr Grimaldo. She states she would like to switch to a different PCP and was provided w/local Physician's directory. She states she has been taking her medications as prescribed. She states she would like to discharge home and declines wanting any HHC for wound care, stating she has not concerns w/completing dsg changes/wound care again once she returns home. Discussed possibility of need for IV atb's @ discharge. She states would still like to return home and [facility] she does need IV atb's. She states she and her would be willing and able to learn to administer them. She declines wanting list of other HHC agencies at this time. She states she has all of the oral medications @ home that she is currently taking. She states she is getting low on her insulin and testing strips. She is not sure if there are refills remaining on them, but states she will call the pharmacy to inquire about this and if no refills are remaining she will contact Dr Carlson's office. She declines needing assistance w/this. She declines having other discharge planning needs or concerns at this time. Case JANG RN CM
[2022-05-07 13:19] VITALS: BP 141/64; PULSE 82; RESP 16; TEMP 36.8; O2SAT 98
--- NOTE | 2022-05-07 14:22 | PCM.CONS.GEN ---
Assessment & Plan Assessment/Plan (1) Gangrene: PLAN: Uncontrolled pain. No vascular surgery available here until 05/18/22. Recommend transfer. She and are agreeable. On vanc/zosyn here. Wound cx in Apr with klebs and MRSA. Will follow, thank you, dw Dr. Cleaning and caser (2) Peripheral vascular disease, unspecified: HPI Consult Data Date of Consult: 05/07/22 HPI Narrative Reason for Consultation: gangrene HPI Narrative: YENNY LUGO, is a 72 F with PAD, DM, presented with 1-2 weeks worsening, severe, throbbing pain in LLE and foot. No fever or chills. Foot with dry necrosis. Admitted on vanc/zosyn. Pain is worsening here. No n/v/d. Full ROS performed and neg except as noted above. FORMERLY [facility], [facility]–1983 Medical History Arthritis Diabetes Essential (primary) hypertension Gastric reflux High cholesterol History of venous thromboembolism Hormone deficiency Hyperlipidemia PAD (peripheral artery disease) Post-menopausal Seasonal allergies Type 2 diabetes mellitus Wears glasses Home Medications metoprolol tartrate 50 mg tablet 50 mg PO DAILY BLOOD PRESSURE 03/06/19 [History Last Taken 05/06/22] insulin degludec 200 unit/mL (3 mL) subcutaneous pen (Tresiba FlexTouch U-200 insulin) 80 unit subcut BID diabetes 01/21/21 [History Last Taken 05/06/22] lisinopril 10 mg tablet 10 mg PO DAILY BP 02/17/21 [History Last Taken 05/06/22] acetaminophen 325 mg tablet (Tylenol) 650 mg PO Q4H PRN PRN Pain 1-10 Or Fever #0 tabs 12/09/21 [Rx Last Taken 05/06/22] apixaban 5 mg tablet 5 mg PO BID #60 tabs 12/09/21 [Rx Last Taken 05/05/22] clopidogrel 75 mg tablet (Plavix) 75 mg PO DAILY #90 tabs 03/25/22 [Rx Last Taken 05/05/22] omeprazole 40 mg capsule,delayed release 40 mg PO BID #60 caps 04/06/22 [Rx Last Taken 05/05/22] sucralfate 1 gram tablet (Carafate) 1 g PO QACHS #60 tabs 04/06/22 [Rx Last Taken 05/05/22] oxycodone 5 mg capsule 5 mg PO Q6H PRN pain 7 days #28 caps 04/15/22 [Rx Last Taken 05/06/22] ciprofloxacin HCl 750 mg tablet 750 mg PO BID ANTIBIOTIC 05/06/22 [History Last Taken 05/06/22] doxycycline hyclate 100 mg tablet 100 mg PO BID ANTIBIOTIC 05/06/22 [History Last Taken 05/06/22] Allergy/AdvReac Type Severity Reaction Status Date / Time diphenhydramine Allergy Swelling Verified 05/01/22 11:07 [From Benadryl] Family History Father Heart disease Hypertension Mother Diabetes Hypertension Kidney disease Liver disease Other Arthritis Surgical History History of S/P foot surgery, right Social History (Updated 05/06/22 @ 22:18 by Cyndi Madrid) household members: spouse housing: house number of children: 2 current occupational status: retired history of recent travel: No other: Patient did have notable secondhand tobacco exposure from [employer]. Smoking Status: Never smoker alcohol intake: never substance use type: does not use what type of physical activity do you participate in: none Physical Exam Const alert; Negative for no apparent distress General Appearance: cooperative HEENT normocephalic and head/scalp atraumatic Eyes PERRL and EOMs intact bilaterally Neck supple and No nodes Resp normal air movement and clear to auscultation bilaterally Cardio regular rate and regular rhythm GI soft to palpation, non-tender and non-distended Extremity General Extremity: Negative for edema Skin Skin Narrative: Reviewed photos, R foot necrotic tissue Neuro CN's II-XII intact bilaterally Lab / Micro Data Attestation: I reviewed the patient's lab results. Result Diagrams: 05/07/22 05:16 05/07/22 05:16 Labs: Laboratory Results - last 24 hr 05/06/22 16:30: WBC 13.6 H, RBC 4.48, Hgb 12.1, Hct 37.9, MCV 84.6, MCH 27.0, MCHC 31.9 L, RDW Std Deviation 52.3 H, RDW Coeff of Melvina 16.9 H, Plt Count 398, MPV 8.6, Immature Gran % (Auto) 0.900, Neut % (Auto) 63.3, Lymph % (Auto) 27.2, [place] % (Auto) 7.8, Eos % (Auto) 0.4, Baso % (Auto) 0.4, Absolute Neuts (auto) 8.6 H, Absolute Lymphs (auto) 3.70, Nucleated RBC % 0, ESR 98 H 05/06/22 16:30: Sodium 137, Potassium 4.2, Chloride 109 H, Carbon Dioxide 20.0 L, Anion Gap 8, BUN 30 H, Creatinine 1.06 H, Estim Creat Clear Calc 37.38, Est GFR (MDRD) Af Amer 65, Est GFR (MDRD) Non-Af 54 L, BUN/Creatinine Ratio 28.3 H, Glucose 165 H, Calcium 10.0, C-React Prot Ext Range 36.00 H 05/06/22 20:10: PT 14.2, INR 1.1, APTT 65.6 H 05/06/22 22:51: POC Glucose 207 H 05/07/22 05:16: WBC 11.3 H, RBC 3.67 L, Hgb 9.9 L, Hct 31.6 L, MCV 86.1, MCH 27.0, MCHC 31.3 L, RDW Std Deviation 54.5 H, RDW Coeff of Melvina 17.4 H, Plt Count 338, MPV 8.8, Immature Gran % (Auto) 1.200 H, Neut % (Auto) 64.5, Lymph % (Auto) 25.7, [place] % (Auto) 7.8, Eos % (Auto) 0.4, Baso % (Auto) 0.4, Absolute Neuts (auto) 7.3, Absolute Lymphs (auto) 2.91, Nucleated RBC % 0.2 05/07/22 05:16: Sodium 138, Potassium 3.8, Chloride 113 H, Carbon Dioxide 19.0 L, Anion Gap 6, BUN 23 H, Creatinine 0.84, Estim Creat Clear Calc 47.18, Est GFR (MDRD) Af Amer 86, Est GFR (MDRD) Non-Af 71, BUN/Creatinine Ratio 27.5 H, Glucose 225 H, Calcium 8.6, Total Bilirubin 0.30, AST 8 L, ALT 17, Alkaline Phosphatase 56, Total Protein 6.2 L, Albumin 2.4 L, Globulin 3.8, Albumin/Globulin Ratio 0.6 L 05/07/22 05:16: APTT 66.0 H 05/07/22 06:19: POC Glucose 187 H 05/07/22 11:26: POC Glucose 240 H 05/07/22 11:30: APTT 235.8 H* Micro: Microbiology 05/06/22 23:15 Wound - Open/Non-Healing Wound Gram Stain - Final Radiology Impression Foot X-Ray 05/06/22 16:10 IMPRESSION: Stable postsurgical changes of the fifth metatarsal and fourth phalanx. There is gas in the soft tissues over the third and fourth metatarsals which may be due to recent surgery. If indicated further evaluation with MRI may be beneficial. There is no acute osseous abnormality. Electronically Signed: Deven Donnelly MD at 16:42 EST , Abdomen/Pelvis CTA 05/06/22 16:37 IMPRESSION: Right superficial femoral artery graft which is occluded at its origin and reconstitutes in the mid thigh. The distal graft is patent as is the right popliteal artery. There is three-vessel runoff into the right foot. Electronically Signed: Deven Donnelly MD at 17:51 EST ,
--- NOTE | 2022-05-07 14:49 | CASEMGMT ---
Tertiary facilities in-network with patient's insurance: [facility], [facility], [facility], , [facility].
--- NOTE | 2022-05-07 15:20 | CON.PCM.SX_ITS ---
Assessment & Plan Assessment/Plan (1) Osteomyelitis of foot, right, acute: (2) Atherosclerosis of lower extremity with gangrene: PLAN: Plan CTA revealed prior right SFA intervention has re-stenosed, reconstitution mid- thigh and three vessel runoff to foot. Right PT with biphasic doppler signal and right DP with monophasic doppler signals. Current RLE perfusion appears equivalent to pre-intervention baseline. Current vascular status not emergent, but there is risk for acute decompensation which could result in increased tissue loss/more proximal amputation and worsening infection with OM. If medically stable, pain controlled on oral regimen, on appropriate antibiotic treatment, continued Eliquis and Plavix, and strict return precautions do feel it would be reasonable for patient to discharge home and return on outpatient basis for angiogram with possible intervention as currently scheduled for 05/18. Any acute decompensation prior to 05/18 would necessitate transfer to [place]. However, given length of time to intervention here and risk of worsened infection/pain/vascular status in the interim also reasonable to transfer now for more urgent vascular intervention. Discussed with patient, she and her will continue to consider and discuss with primary team again tomorrow morning. Will continue to follow. HPI Consult Data Date of Consult: 05/07/22 HPI Narrative Reason for Consultation: Atherosclerosis RLE with gangrene, prior SFA intervention HPI Narrative: YENNY LUGO, is a 72 F who is well known to our practice. Patient was initially referred as she had developed significant ulceration and gangrenous tissue on right lateral foot secondary to repetitive pressure injury. Noninvasive imaging had revealed highly calcified vessels with a moderate length superficial femoral artery occlusion. She underwent angiogram with atherectomy and DCB angioplasty of right SFA with Dr. Donato on 03/25/2023. The procedure resulted in satisfactory resolution of the SFA occlusion. Patient then proceeded to undergo right 4th and 5th toe amputation by Dr. Grimaldo on 04/14/2022 following worsening pain and appearance of wound with new necrosis of 5th digit in the preceding week and concern for infection. She was treated with antibiotics at that time and following procedure patient's pain improved. She presented to the [facility] ED on 05/06 with worsening, uncontrollable right foot pain. A CTA was obtained which showed re-stenosis of SFA intervention at origin with reconstitution in mid-thigh and three vessel runoff into the right foot. There was also concern for infection and patient was admitted, started on heparin drip and IV vanc/zosyn. She was evaluated by podiatry who recommend surgical debridement/amputation, but only after revascularization unless absolutely necessary for acute decompensation. Unfortunately, Dr. Donato is out of town and unable to perform intervention prior to 05/18 (for which patient is currently scheduled). Patient offered transfer to tertiary care center for more immediate vascular intervention, but has thus far refused acknowledging that infection or vascular status could acutely worsen resulting in greater tissue loss and potential danger to her global health. Patient reports that following initial intervention in March, her leg pain had improved. However, 1-2 weeks ago she stated her RLE pain seemed to become acutely worse and wound became red, dehisced, and she was treated for infection as outpatient. She did have a few short pauses in anticoagulation secondary to bleeding concerns, but these were kept to a minimum and otherwise she reports she has been consistent with Eliquis and Plavix. Today, she reports focal pain around right foot wound, does not otherwise complain of pain in lower extremities. She does have neuropathy from her diabetes but sensation appears otherwise intact. Denies F/C, N/V, CP, SOB. FORMERLY [facility] Medical History Arthritis Diabetes Essential (primary) hypertension Gastric reflux High cholesterol History of venous thromboembolism Hormone deficiency Hyperlipidemia PAD (peripheral artery disease) Post-menopausal Seasonal allergies Type 2 diabetes mellitus Wears glasses Home Medications metoprolol tartrate 50 mg tablet 50 mg PO DAILY BLOOD PRESSURE 03/06/19 [History Last Taken 05/06/22] insulin degludec 200 unit/mL (3 mL) subcutaneous pen (Tresiba FlexTouch U-200 insulin) 80 unit subcut BID diabetes 01/21/21 [History Last Taken 05/06/22] lisinopril 10 mg tablet 10 mg PO DAILY BP 02/17/21 [History Last Taken 05/06/22] acetaminophen 325 mg tablet (Tylenol) 650 mg PO Q4H PRN PRN Pain 1-10 Or Fever #0 tabs 12/09/21 [Rx Last Taken 05/06/22] apixaban 5 mg tablet 5 mg PO BID #60 tabs 12/09/21 [Rx Last Taken 05/05/22] clopidogrel 75 mg tablet (Plavix) 75 mg PO DAILY #90 tabs 03/25/22 [Rx Last Taken 05/05/22] omeprazole 40 mg capsule,delayed release 40 mg PO BID #60 caps 04/06/22 [Rx Last Taken 05/05/22] sucralfate 1 gram tablet (Carafate) 1 g PO QACHS #60 tabs 04/06/22 [Rx Last Taken 05/05/22] oxycodone 5 mg capsule 5 mg PO Q6H PRN pain 7 days #28 caps 04/15/22 [Rx Last Taken 05/06/22] ciprofloxacin HCl 750 mg tablet 750 mg PO BID ANTIBIOTIC 05/06/22 [History Last Taken 05/06/22] doxycycline hyclate 100 mg tablet 100 mg PO BID ANTIBIOTIC 05/06/22 [History Last Taken 05/06/22] Allergy/AdvReac Type Severity Reaction Status Date / Time diphenhydramine Allergy Swelling Verified 05/01/22 11:07 [From Gabi] Family History Father Heart disease Hypertension Mother Diabetes Hypertension Kidney disease Liver disease Other Arthritis Surgical History History of S/P foot surgery, right Social History (Updated 05/06/22 @ 22:18 by Cyndi Madrid) household members: spouse housing: house number of children: 2 current occupational status: retired history of recent travel: No other: Patient did have notable secondhand tobacco exposure from [employer]. Smoking Status: Never smoker alcohol intake: never substance use type: does not use what type of physical activity do you participate in: none Physical Exam Const alert and oriented x3 HEENT normocephalic, head/scalp atraumatic, hearing grossly normal bilaterally, external ears normal and external nose normal Eyes EOMs intact bilaterally General Eye: normal appearance of both eyes Neck General: normal visual inspection and trachea midline Resp normal respiratory effort, no retractions, no use of accessory muscles and clear to auscultation bilaterally Effort and Inspection: able to speak in complete sentences; Negative for labored, stridor or audible wheezes Cardio regular rate and regular rhythm Peripheral Pulses: brachial pulses present and radial pulses present Extremity Extremity Narrative: Right foot with 4th/5th digit amputation site wound with dry necrotic tissue upon review of images in chart. Right foot pale in appearance, 3rd digit with cyanotic discoloration. Nonpalpable pulses, but PT biphasic and DP monophasic by doppler. Skin Wounds: wounds noted Wound Narrative: Images in chart reviewed, dry necrotic tissue at 4th/5th digit amputation site. Dressings were not removed enough to visualize wound. Neuro oriented x3, CN's II-XII intact bilaterally, moves all extremities, no focal motor deficits and no sensory deficits noted Speech: speech normal Psych mental status grossly normal, affect normal, speech normal and activity/motor behavior normal Lab / Micro Data Result Diagrams: 05/07/22 05:16 05/07/22 05:16 Labs: Laboratory Results - last 24 hr 05/06/22 16:30: WBC 13.6 H, RBC 4.48, Hgb 12.1, Hct 37.9, MCV 84.6, MCH 27.0, MCHC 31.9 L, RDW Std Deviation 52.3 H, RDW Coeff of Melvina 16.9 H, Plt Count 398, MPV 8.6, Immature Gran % (Auto) 0.900, Neut % (Auto) 63.3, Lymph % (Auto) 27.2, [place] % (Auto) 7.8, Eos % (Auto) 0.4, Baso % (Auto) 0.4, Absolute Neuts (auto) 8.6 H, Absolute Lymphs (auto) 3.70, Nucleated RBC % 0, ESR 98 H 05/06/22 16:30: Sodium 137, Potassium 4.2, Chloride 109 H, Carbon Dioxide 20.0 L , Anion Gap 8, BUN 30 H, Creatinine 1.06 H, Estim Creat Clear Calc 37.38, Est GFR (MDRD) Af Amer 65, Est GFR (MDRD) Non-Af 54 L, BUN/Creatinine Ratio 28.3 H, Glucose 165 H, Calcium 10.0, C-React Prot Ext Range 36.00 H 05/06/22 20:10: PT 14.2, INR 1.1, APTT 65.6 H 05/06/22 22:51: POC Glucose 207 H 05/07/22 05:16: WBC 11.3 H, RBC 3.67 L, Hgb 9.9 L, Hct 31.6 L, MCV 86.1, MCH 27.0, MCHC 31.3 L, RDW Std Deviation 54.5 H, RDW Coeff of Melvina 17.4 H, Plt Count 338, MPV 8.8, Immature Gran % (Auto) 1.200 H, Neut % (Auto) 64.5, Lymph % (Auto) 25.7, [place] % (Auto) 7.8, Eos % (Auto) 0.4, Baso % (Auto) 0.4, Absolute Neuts (auto) 7.3, Absolute Lymphs (auto) 2.91, Nucleated RBC % 0.2 05/07/22 05:16: Sodium 138, Potassium 3.8, Chloride 113 H, Carbon Dioxide 19.0 L , Anion Gap 6, BUN 23 H, Creatinine 0.84, Estim Creat Clear Calc 47.18, Est GFR (MDRD) Af Amer 86, Est GFR (MDRD) Non-Af 71, BUN/Creatinine Ratio 27.5 H, Glucose 225 H, Calcium 8.6, Total Bilirubin 0.30, AST 8 L, ALT 17, Alkaline Phosphatase 56, Total Protein 6.2 L, Albumin 2.4 L, Globulin 3.8, Albumin/Globulin Ratio 0.6 L 05/07/22 05:16: APTT 66.0 H 05/07/22 06:19: POC Glucose 187 H 05/07/22 11:26: POC Glucose 240 H 05/07/22 11:30: APTT 235.8 H* Micro: Microbiology 05/06/22 23:15 Wound - Open/Non-Healing Wound Gram Stain - Final Radiology Impression Foot X-Ray 05/06/22 16:10 IMPRESSION: Stable postsurgical changes of the fifth metatarsal and fourth phalanx. There is gas in the soft tissues over the third and fourth metatarsals which may be due to recent surgery. If indicated further evaluation with MRI may be beneficial. There is no acute osseous abnormality. Electronically Signed: Deven Donnelly MD at 16:42 EST , Abdomen/Pelvis CTA 05/06/22 16:37 IMPRESSION: Right superficial femoral artery graft which is occluded at its origin and reconstitutes in the mid thigh. The distal graft is patent as is the right popliteal artery. There is three-vessel runoff into the right foot. Electronically Signed: Deven Donnelly MD at 17:51 EST , Charges/Coding Visit Charges Inpatient E&M: 46776 Init Hosp L1
[2022-05-07 15:54] VITALS: BP 117/47; PULSE 71; RESP 16; TEMP 36.7; O2SAT 97
[2022-05-07 16:45] LABS: Bedside Glucose 111 mg/dL (74-106)
--- NOTE | 2022-05-07 20:11 | NURSING ---
lab contacted, will be up to draw PTT
[2022-05-07 21:17] LABS: Partial Thromboplast Time 129.8 Seconds (24.1-36.2)
[2022-05-07 21:43] VITALS: BP 126/51; PULSE 72; RESP 20; TEMP 36.8; O2SAT 95
[2022-05-07 22:35] LABS: Bedside Glucose 134 mg/dL (74-106)
[2022-05-08] MEDS: 0.9% Saline Lock 10 ML Syringe IV ×4 (01:48→18:05)
[2022-05-08] MEDS: HYDROmorphone 0.5 MG/0.5 ML SYRINGE IV ×5 (01:48→18:05)
[2022-05-08 03:44] VITALS: BP 138/51; PULSE 73; RESP 18; TEMP 36.4; O2SAT 97
[2022-05-08] MEDS: Acetaminophen 500 MG Tablet 1000 MG PO ×2 (05:31→14:19)
[2022-05-08] MEDS: oxyCODONE 5 MG Tablet 10 MG PO ×2 (05:31→09:36)
[2022-05-08] MEDS: Sucralfate 1 GM Tablet PO ×3 (05:31→17:54)
[2022-05-08 06:02] LABS: Partial Thromboplast Time 73.3 Seconds (24.1-36.2)
[2022-05-08 06:15] LABS: Anion Gap 8 (5-15); BUN 30 mg/dL (7-18); Calcium,Total 8.7 mg/dL (8.5-10.1); Chloride 111 mmol/L (98-107); Creatinine, Serum 0.88 mg/dL (0.55-1.02); EST Glomerular Filtration Rate 67 mL/min (>60); Est Glom Filt Rate - Afr Amer 81 mL/min (>60); Estimated Creatinine Clearance 45.03 ml/min; Glucose 106 mg/dL (74-106); Potassium 4.2 mmol/L (3.5-5.1); Sodium Level 139 mmol/L (136-145)
[2022-05-08 07:11] LABS: Bedside Glucose 124 mg/dL (74-106)
[2022-05-08 08:44] VITALS: BP 135/47; PULSE 68; RESP 14; TEMP 36.6; O2SAT 98
[2022-05-08] MEDS: Clopidogrel Bisulfate 75 MG Tablet PO (09:37)
[2022-05-08] MEDS: Ensure Plus High Protein 120 ML LIQUID PO ×3 (09:37→17:55)
[2022-05-08] MEDS: Lisinopril 10 MG Tablet PO (09:37)
[2022-05-08] MEDS: Pantoprazole Sodium 40 MG Tablet PO (09:37)
[2022-05-08 09:38] VITALS: BP 135/47; PULSE 68
[2022-05-08] MEDS: Metoprolol Tartrate 50 MG Tablet PO (09:38)
--- NOTE | 2022-05-08 11:38 | PN.HOSP_ITS ---
Subjective Subjective Doing well, no issues overnight but she finally did agree to be transferred however when I called [facility] Bailey the vascular surgeon there Dr. Smart felt that he did not need to do anything because there are other people at this institution who could potentially intervene and so refused to accept her in it and transfer Objective Data Objective Data Vital Signs: Vital Signs Temp Pulse Resp BP Pulse Ox O2 Del Method 97.8 F 68 14 135/47 H 98 Room Air 05/08/22 08:44 05/08/22 09:38 05/08/22 08:44 05/08/22 09:38 05/08/22 08:44 05/08/22 09:26 Oxygen Delivery Method Room Air Weight: 120 lb 5.958 oz Body Mass Index (BMI) 22.0 Intake & Output: Intake and Output for Last 24 Hours 05/07/22 05/08/22 05/09/22 03:59 03:59 03:59 Intake Total 1435 / 1435 2116.51 / 2116.51 1495 / 1495 Output Total 300 / 300 Balance 1435 / 1435 2116.51 / 2116.51 1195 / 1195 Lab / Micro Data Result Diagrams: 05/07/22 05:16 05/08/22 05:32 Labs: Laboratory Results - last 24 hr 05/07/22 11:26: POC Glucose 240 H 05/07/22 11:30: APTT 235.8 H* 05/07/22 15:57: POC Glucose 111 H 05/07/22 20:15: APTT 129.8 H* 05/07/22 21:43: POC Glucose 134 H 05/08/22 05:32: Sodium 139, Potassium 4.2, Chloride 111 H, Carbon Dioxide 20.0 L , Anion Gap 8, BUN 30 H, Creatinine 0.88, Estim Creat Clear Calc 45.03, Est GFR (MDRD) Af Amer 81, Est GFR (MDRD) Non-Af 67, BUN/Creatinine Ratio 34.0 H, Glucose 106, Calcium 8.7 05/08/22 05:32: APTT 73.3 H 05/08/22 06:40: POC Glucose 124 H Micro: Microbiology 05/06/22 23:15 Wound - Open/Non-Healing Wound Gram Stain - Final 05/06/22 23:15 Wound - Open/Non-Healing Wound Wound Culture - Preliminary Gram negative leatha Physical Exam Narrative General: Alert, Oriented x3, Cooperative, No apparent distress HEENT: Atraumatic, PERRLA, EOMI, Normocephalic Oral: Moist Mucosa Neck: Supple, No JVD Lungs: Clear to auscultation, Normal air movement, No rhonchi, No wheeze, No rales Cardiovascular: Regular rate, Regular Rhythm, Normal S1, Normal S2, No murmurs Abdomen: Soft, Non Tender, Non-Distended, No Hepato-splenomegaly Extremities: Nonhealing wound on her right foot with poor circulation and an cold extremities Skin: Wound is dressed on her right foot Musculoskeletal: No Tenderness to Palpation of Joints or Extremities Neurological: Cranial nerves II-XII grossly intact, Motor Exam 5/5 strength throughout, Sensory exam intact to light touch and pain Psych/Mental Status: Normal Affect, Appropriate Assessment & Plan Assessment/Plan (1) Gangrene of toe of right foot: PLAN: She does have issues with ischemia as she has had poor ABIs and needs to have vascular intervention Dr. Smart refused to take her as he says that we have other trained people at this facility. I was able to talk with Dr. Cleaning on the phone to see if he could give me a definitive need to go to a different institution or is safe for discharge and outpatient follow-up There is a possibility of discharge home if we can get her pain managed and continuing her Eliquis (2) Non-pressure chronic ulcer of other part of right foot with fat layer exposed: PLAN: Cultures are pending but previous cultures with MRSA and Klebsiella she is on doxycycline as well as Cipro on an outpatient basis She is currently on vancomycin and Zosyn, in discussion with ID if she were to go home her previous antibiotics should cover everything Podiatry will not operate until after she has had revascularization PLAN: Plan Chronic conditions * DM2: Continue with glargine and sliding scale insulin * Hypertension: Stable. Continue lisinopril and metoprolol * PUD: Continue with omeprazole and sucralfate. Patient had EGD on April 06 that showed a nonbleeding gastric ulcer with no stigmata of bleeding. Pathology was negative for H. pylori DVT: Heparin drip Charges/Coding Visit Charges Inpatient E&M: 43921 Subs Hosp L2
[2022-05-08 11:39] LABS: Partial Thromboplast Time 79.1 Seconds (24.1-36.2)
[2022-05-08 11:40] LABS: Bedside Glucose 90 mg/dL (74-106)
--- NOTE | 2022-05-08 13:01 | CON.PCM.SX_ITS ---
Assessment & Plan Assessment/Plan (1) Atherosclerosis of lower extremity with gangrene: (2) Osteomyelitis of foot, right, acute: (3) Gastric ulcer: (4) Ulcer of right foot due to type 2 diabetes mellitus: PLAN: Plan 72-year-old female. She appears to have had a reasonably complex attempt at reconstitution of flow chronic up occlusion right superficial femoral artery. Operative note suggest difficulties with the rotational atherectomy device. A cutting balloon type maneuver with subsequent drug-coated balloon was utilized. Patient has significantly calcified vessels. She now has recurrent occlusion likely with thrombus load. To complicate features she is had a recent history of a large gastric ulcer. She has been maintained on current appropriate treatment with pantoprazole and sucralfate. On her admission she was placed on a heparin infusion with no stabilization or improvement in her symptoms. I do not believe that this patient is stable for discharge home. I believe that she has severe acute and chronic ischemia of the right foot with progressive dry gangrene. I believe that she likely will require a potentially complicated attempt at revascularization of the right lower extremity. This could indeed require thrombolytic therapy as well. I do not believe that she should await Dr. Shayne Donato on May 18, 2022 after his return and rather tertiary referral should be made. I appreciate the opportunity of assisting with her surgical care. I believe that her complexity exceeds my comfort level and local equipment immediately available. Time spent with chart and imaging and patient consultation review 60 minutes Salomón Cleaning M.D., F.A.C.S. HPI Consult Data Date of Consult: 05/08/22 HPI Narrative Reason for Consultation: Assessment regarding degree of ischemia right foot HPI Narrative: YENNY LUGO, is a 72 F who presents with markedly increased pain of her right foot and recurrent progressive ischemia. I have been specifically asked by Dr. Delgado to provide a surgical impression regarding the degree of urgency and patient intervention.A written copy of my surgical consult is present in the charting and I have verbally discussed my findings with Dr. Cleaning. The patient was initially seen by WAYNE Plummer for Dr. Shayne Donato on February 17, 2022. The patient had none healing right foot ulcer. She had significant peripheral arterial occlusive disease. Dr. Shayne Donato on March 25, 2020 due for performed aortogram with right lower extremity runoff with atherectomy and drug-coated balloon angioplasty of the right superficial femoral artery. Total occlusion of the right superficial femoral artery with reconstitution of the popliteal and three-vessel runoff was identified. The patient had diffusely calcified vessels. In reading that operative note it is apparent that the [employer] jetstream rotational atherectomy device became jammed after 2 passes and had to be removed. The patient then had further angioplasty with a Serrantor serrated balloon at 4 x 120 mm. Multiple inflations were required. The patient ended up being treated with a [employer] 4 x 200 mm DCB and a 4 x 80 mm device. By patient report perfusion to her foot improved. To complicate matters however the patient developed abdominal pain and general surgeon Dr. Margarito Alvarenga on April 06, 2022 performed a esophagogastroduodenoscopy demonstrating nonbleeding gastric ulcer. Patient was placed on omeprazole 40 mg twice daily and it was felt that her apixaban and clopidogrel could be continued. On April 14, 2022 performed a partial fifth ray resection of the right foot with amputation of the fourth toe. The patient then developed acute onset of recurrent severe pain of the right foot and was readmitted to the [facility] on May 06, 2022. was consulted and noted the gangrenous changes of the previous foot surgery site. Recommended recurrent vascular surgery involvement. Surgical consultation was obtained from WAYNE Topete whose note suggest that the patient can be treated by Dr. Shayne Donato on May 18, 2022. It was less clear as to whether the patient could be discharged to home or whether a more urgent intervention would be required. That is the question being asked to answer. The patient is currently on clopidogrel 75 mg daily and IV heparin infusion and pantoprazole and IV Zosyn and sucralfate and vancomycin. The apixaban is currently being held. On May 06, 2022 CT angiogram with runoff lower extremities was obtained. Pertinent findings to the current issue is interpreted as right superficial femoral artery graft occluded at its origin and reconstituting in the mid thigh with the distal graft patent as is the right popliteal artery. Three-vessel runoff to the foot. It is a very pertinent note however as the patient has never had a bypass graft to the right lower extremity and the vessel in question actually represents the patient's calcified superficial femoral artery with acute thrombosis. I have personally reviewed the CT images and I disagree with the radiologist interpretation as I see no bypass graft present and simply the [place] vessel calcified although with the appearance similar to graft material The patient states that since her hospitalization she is not improved whatsoever regarding the pain in her right foot and she is requiring IV Dilaudid. FORMERLY [facility], [facility] Medical History Arthritis Diabetes Essential (primary) hypertension Gastric reflux High cholesterol History of venous thromboembolism Hormone deficiency Hyperlipidemia PAD (peripheral artery disease) Post-menopausal Seasonal allergies Type 2 diabetes mellitus Wears glasses Home Medications metoprolol tartrate 50 mg tablet 50 mg PO DAILY BLOOD PRESSURE 03/06/19 [History Last Taken 05/06/22] insulin degludec 200 unit/mL (3 mL) subcutaneous pen (Tresiba FlexTouch U-200 insulin) 80 unit subcut BID diabetes 01/21/21 [History Last Taken 05/06/22] lisinopril 10 mg tablet 10 mg PO DAILY BP 02/17/21 [History Last Taken 05/06/22] acetaminophen 325 mg tablet (Tylenol) 650 mg PO Q4H PRN PRN Pain 1-10 Or Fever #0 tabs 12/09/21 [Rx Last Taken 05/06/22] apixaban 5 mg tablet 5 mg PO BID #60 tabs 12/09/21 [Rx Last Taken 05/05/22] clopidogrel 75 mg tablet (Plavix) 75 mg PO DAILY #90 tabs 03/25/22 [Rx Last T aken 05/05/22] omeprazole 40 mg capsule,delayed release 40 mg PO BID #60 caps 04/06/22 [Rx Last Taken 05/05/22] sucralfate 1 gram tablet (Carafate) 1 g PO QACHS #60 tabs 04/06/22 [Rx Last Taken 05/05/22] oxycodone 5 mg capsule 5 mg PO Q6H PRN pain 7 days #28 caps 04/15/22 [Rx Last Taken 05/06/22] ciprofloxacin HCl 750 mg tablet 750 mg PO BID ANTIBIOTIC 05/06/22 [History Last Taken 05/06/22] doxycycline hyclate 100 mg tablet 100 mg PO BID ANTIBIOTIC 05/06/22 [History Last Taken 05/06/22] Allergy/AdvReac Type Severity Reaction Status Date / Time diphenhydramine Allergy Swelling Verified 05/01/22 11:07 [From Benadryl] Family History Father Heart disease Hypertension Mother Diabetes Hypertension Kidney disease Liver disease Other Arthritis Surgical History History of S/P foot surgery, right Social History (Updated 05/06/22 @ 22:18 by Cyndi Madrid) household members: spouse housing: house number of children: 2 current occupational status: retired history of recent travel: No other: Patient did have notable secondhand tobacco exposure from [employer] Smoking Status: Never smoker alcohol intake: never substance use type: does not use what type of physical activity do you participate in: none ROS Constitutional Constitutional: Denies chills or fever(s) Cardiovascular Cardiovascular: Denies chest pain Respiratory/Chest Respiratory/Chest: Reports systems reviewed and no addt'l complaints, except as documented Musculoskeletal Musculoskeletal: Reports other Details: Patient notes significant pain of the right foot. Also notes degree of numbness Physical Exam Const alert, oriented x3 and no apparent distress General Appearance: cooperative HEENT normocephalic Resp normal respiratory effort Effort and Inspection: able to speak in complete sentences Cardio Cardio Narrative: Bilateral femoral pulses are palpable albeit somewhat challenging on the right. The right popliteal DP and PT not palpable. Rate: regular rate Rhythm: regular rhythm Extremity Extremity Narrative: Right foot is cool and pale. Evidence of the previous amputation site with diffuse black eschar. Markedly diminished capillary refill and very poor venous filling. On Doppler analysis there is barely audible DP monophasic signal Neuro Neuro Narrative: Patient is aware of her situation and place. Diminished light touch sensation to the right foot Psych Appearance: grossly normal Lab / Micro Data Result Diagrams: 05/07/22 05:16 05/08/22 05:32 Labs: Laboratory Results - last 24 hr 05/07/22 15:57: POC Glucose 111 H 05/07/22 20:15: APTT 129.8 H* 05/07/22 21:43: POC Glucose 134 H 05/08/22 05:32: Sodium 139, Potassium 4.2, Chloride 111 H, Carbon Dioxide 20.0 L , Anion Gap 8, BUN 30 H, Creatinine 0.88, Estim Creat Clear Calc 45.03, Est GFR (MDRD) Af Amer 81, Est GFR (MDRD) Non-Af 67, BUN/Creatinine Ratio 34.0 H, Glucose 106, Calcium 8.7 05/08/22 05:32: APTT 73.3 H 05/08/22 06:40: POC Glucose 124 H 05/08/22 11:16: POC Glucose 90 05/08/22 11:19: APTT 79.1 H Micro: Microbiology 05/06/22 23:15 Wound - Open/Non-Healing Wound Gram Stain - Final 05/06/22 23:15 Wound - Open/Non-Healing Wound Wound Culture - Preliminary Gram negative leatha
--- NOTE | 2022-05-08 14:14 | DS.PCM_ITS ---
Providers Date of Admission: 05/06/22 Date of Discharge: 05/08/22 Primary Care Physician: Dr. Alfonso Carlson MD Consultations 05/06/22 22:01 Consult: Onc/Wound/supervisor hospitality house Routine Comment: Consult: Podiatry Routine Consulting Provider: Yazan Grimaldo Reason for Consult: right foot wound EMERGENT Consult: No MD Notified: Yes Date Notified: 05/06/22 Time Notified: 19:56 Method of Notification: Verbal 05/07/22 11:41 Consult: Infectious Disease Routine Consulting Provider: Salomón Blanchard Reason for Consult: Foot infection with kleb and mrsa EMERGENT Consult: No MD Notified: Yes Date Notified: 05/07/22 Time Notified: 12:31 Method of Notification: Answering Service 05/08/22 12:51 Consult: General Surgery Routine Consulting Provider: Salomón Cleaning Reason for Consult: Vascular opinion EMERGENT Consult: No MD Notified: Yes Date Notified: 05/08/22 Time Notified: 12:52 Method of Notification: Verbal Reason For Visit: RIGHT FOOT NECROSIS Diagnosis Discharge Diagnosis (1) Atherosclerosis of lower extremity with gangrene: Status: Acute Code(s): I70.269 - Atherosclerosis of jackson arteries of extremities with gangrene, unspecified extremity (2) Osteomyelitis of foot, right, acute: Status: Acute Code(s): M86.171 - Other acute osteomyelitis, right ankle and foot (3) Gastric ulcer: Status: Acute Code(s): K25.9 - Gastric ulcer, unspecified as acute or chronic, without hemorrhage or perforation (4) Ulcer of right foot due to type 2 diabetes mellitus: Status: Acute Code(s): E11.621 - Type 2 diabetes mellitus with foot ulcer; L97.519 - Non-pressure chronic ulcer of other part of right foot with unspecified severity Plan Chronic conditions * DM2: Continue with glargine and sliding scale insulin * Hypertension: Stable. Continue lisinopril and metoprolol * PUD: Continue with omeprazole and sucralfate. Patient had EGD on April 06 that showed a nonbleeding gastric ulcer with no stigmata of bleeding. Pathology was negative for H. pylori DVT: Heparin drip Medications at Discharge Home Medications metoprolol tartrate 50 mg tablet 50 mg PO DAILY BLOOD PRESSURE 03/06/19 insulin degludec 200 unit/mL (3 mL) subcutaneous pen (Tresiba FlexTouch U-200 insulin) 80 unit subcut BID diabetes 01/21/21 lisinopril 10 mg tablet 10 mg PO DAILY BP 02/17/21 acetaminophen 325 mg tablet (Tylenol) 650 mg PO Q4H PRN PRN Pain 1-10 Or Fever #0 tabs 12/09/21 apixaban 5 mg tablet 5 mg PO BID #60 tabs 12/09/21 clopidogrel 75 mg tablet (Plavix) 75 mg PO DAILY #90 tabs 03/25/22 omeprazole 40 mg capsule,delayed release 40 mg PO BID #60 caps 04/06/22 sucralfate 1 gram tablet (Carafate) 1 g PO QACHS #60 tabs 04/06/22 oxycodone 5 mg capsule 5 mg PO Q6H PRN pain 7 days #28 caps 04/15/22 ciprofloxacin HCl 750 mg tablet 750 mg PO BID ANTIBIOTIC 05/06/22 doxycycline hyclate 100 mg tablet 100 mg PO BID ANTIBIOTIC 05/06/22 Hospital Course Operations None Procedures None Summary of Care Provided Minutes Spent on Discharge: 45 Hospital Course: Per HPI: YENNY LUGO, is a 72 F who presents presents with painful right foot.? 72-year-old female presents with uncontrolled pain of her right foot with dehiscence of surgical site to the right lateral foot with ischemic pain.? Patient has a previous undergone an SFA graft and patient did have a CTA of her abdomen and pelvis is showed the graft is occluded at the origin but reconstitutes at the mid thigh and is patent at the right popliteal artery and there is 3 vessel runoff to the right foot.? Despite that, the patient's foot has continued to worsen.? Patient's pain is unbearable and she saw pain management who referred her to the emergency room.? Patient received vancomycin and Zosyn in the emergency room.? The case discussed with Dr. Grimaldo who is only planning on doing local wound care no further surgery at this time until further revascularization can be performed.? Discussed with Dr. Donato, who will be out of town until the who is planning on doing a angiogram on the for the patient that was already previously scheduled.? Patient was given the option to be transferred to a tertiary facility rather be vascular surgery to readily addressed her though not necessarily perform any procedures.? Patient prefers to stay here understanding that her foot could continue to get worse despite that. Hospital Course: 1. Dry gangrene of her right foot secondary to acute on chronic lower extremity ischemia on the right due to peripheral vascular disease?72-year-old female presents to the hospital with right lower extremity foot pain is well as absent pulses to palpation though present with Doppler. She does have atherosclerotic changes to her right lower extremity and she did have a procedure back in March to try to fix this is much as possible. She had surgery for osteomyelitis on 14 April however that wound has not healed secondary to poor peripheral blood flow. She was started on a heparin drip and her antibiotics were broadened to vancomycin and Zosyn. Unfortunately the vascular surgeon at this institution went on vacation the day she was admitted and so initially she did not want to be transferred to any tertiary care center so we were contemplating discharging her home as tenuous as that decision would have been however between myself and the other physicians on the case as well as her husba nd we were all able to convince her that transfer to a tertiary care center for potentially definitive treatment sooner was the best option she finally agreed. I was able to discuss the case with both vascular surgery and hospitalist medicine at [facility] and they accepted in transfer. 2. Type 2 diabetes, hypertension, peptic ulcer disease are all chronic medical conditions which complicate her care. Her home medications were continued where appropriate Weight / BMI Weight Weight: 120 lb 5.958 oz Body Mass Index (BMI) 22.0 ABG / Lab / Microbiology Data Result Diagrams: 05/07/22 05:16 05/08/22 05:32 Laboratory: Laboratory Results - last 24 hr 05/07/22 15:57: POC Glucose 111 H 05/07/22 20:15: APTT 129.8 H* 05/07/22 21:43: POC Glucose 134 H 05/08/22 05:32: Sodium 139, Potassium 4.2, Chloride 111 H, Carbon Dioxide 20.0 L , Anion Gap 8, BUN 30 H, Creatinine 0.88, Estim Creat Clear Calc 45.03, Est GFR (MDRD) Af Amer 81, Est GFR (MDRD) Non-Af 67, BUN/Creatinine Ratio 34.0 H, Glucose 106, Calcium 8.7 05/08/22 05:32: APTT 73.3 H 05/08/22 06:40: POC Glucose 124 H 05/08/22 11:16: POC Glucose 90 05/08/22 11:19: APTT 79.1 H Microbiology: Microbiology 05/06/22 23:15 Wound - Open/Non-Healing Wound Gram Stain - Final 05/06/22 23:15 Wound - Open/Non-Healing Wound Wound Culture - Preliminary Gram negative leatha Radiography Diagnostic Testing: Radiology Impression Abdomen/Pelvis CTA 05/06/22 16:37 IMPRESSION: Right superficial femoral artery graft which is occluded at its origin and reconstitutes in the mid thigh. The distal graft is patent as is the right popliteal artery. There is three-vessel runoff into the right foot. Electronically Signed: Deven Donnelly MD at 17:51 EST , D/C Instructions Discharge Diet: Low fat / Low cholesterol and Carb Control Diet Meaningful Use Info Meaningful Use Diagnoses (Choose all that apply): None applicable Discharge Plan Admission Admit Date/Time: 05/06/22 19:51 Attending Provider: Dean Cleaning Primary Care Provider: Alfonso Carlson Chi Consulting Providers: Yazan Grimaldo ; Shayne Sheffield ; Salomón Blanchard ; Salomón Cleaning Discharge Orders/Prescriptions Prescriptions: Continued metoprolol tartrate 50 MG tablet 50 mg PO DAILY insulin degludec [Tresiba FlexTouch U-200] 200 unit/mL (3 mL) insulin pen 80 unit SUBCUT BID Hold Instructions: [place] [address]. Hold if glucose less than 130 mg/dl lisinopril 10 mg tablet 10 mg PO DAILY acetaminophen [Tylenol] 325 mg Tablet 650 mg PO Q4H PRN PRN (Reason: Pain 1-10 Or Fever) Qty: 0 0RF Rx Instructions: For mild to moderate pain apixaban 5 mg Tablet 5 mg PO BID Qty: 60 0RF Label Comments: STOP DAY PRIOR TO OR omeprazole 40 mg capsule,delayed release(DR/EC) 40 mg PO BID Qty: 60 2RF sucralfate [Carafate] 1 gram tablet 1 g PO QACHS Qty: 60 1RF oxycodone 5 mg capsule 5 mg PO Q6H PRN (Reason: pain) 7 Days Qty: 28 0RF ciprofloxacin HCl 750 mg tablet 750 mg PO BID Label Comments: TAKE 1 TABLET BY MOUTH TWICE DAILY doxycycline hyclate 100 mg tablet 100 mg PO BID Label Comments: TAKE 1 TABLET BY MOUTH TWICE DAILY clopidogrel [Plavix] 75 mg tablet 75 mg PO DAILY Qty: 90 0RF Label Comments: STOP 1 DAY PRIOR TO OR Referrals / Follow Up: Alfonso Carlson Chi, MD [Primary Care Provider] - Disposition Disposition (needs filled in before D/C Order can be placed): Acute Care Hospital Charges/Coding Visit Charges Inpatient E&M: 68384 Disch Hosp >30min
[2022-05-08 17:40] LABS: Bedside Glucose 115 mg/dL (74-106)
[2022-05-08 17:50] VITALS: BP 124/45; PULSE 68; RESP 14; TEMP 36.8; O2SAT 96
--- NOTE | 2022-05-08 18:45 | NURSING ---
tried to call report at 1700 but was unable left message for them to call
--- NOTE | 2022-05-08 18:53 | NURSING ---
called report to [facility] Nivia Hall RN [phone]
== END 2022-05-08 18:29 | disposition short-term general hospital (02) | DRG 300 ==
LOC: ED 19:19 → PCU 21:19
PROVIDERS: Emergency Provider Student in an Organized Health Care Education/Training Program; PCP Family Medicine Geriatric Medicine; Visit Provider Family Medicine
DX: E11.52 Type 2 diabetes mellitus with diabetic peripheral angiopathy with gangrene (principal); I70.261 Atherosclerosis of native arteries of extremities with gangrene, right leg; M86.171 Other acute osteomyelitis, right ankle and foot; L97.512 Non-pressure chronic ulcer of other part of right foot with fat layer exposed; E11.621 Type 2 diabetes mellitus with foot ulcer; E11.42 Type 2 diabetes mellitus with diabetic polyneuropathy; B96.1 Klebsiella pneumoniae [K. pneumoniae] as the cause of diseases classified elsewhere; E11.65 Type 2 diabetes mellitus with hyperglycemia; Z79.4 Long term (current) use of insulin; E11.69 Type 2 diabetes mellitus with other specified complication; Z89.421 Acquired absence of other right toe(s); I10 Essential (primary) hypertension; E78.00 Pure hypercholesterolemia, unspecified; K25.9 Gastric ulcer, unspecified as acute or chronic, without hemorrhage or perforation; X58.XXXA Exposure to other specified factors, initial encounter; Z77.22 Contact with and (suspected) exposure to environmental tobacco smoke (acute) (chronic); Z79.01 Long term (current) use of anticoagulants; Z79.02 Long term (current) use of antithrombotics/antiplatelets; Z79.2 Long term (current) use of antibiotics; Z79.899 Other long term (current) drug therapy
CPT/HCPCS: 36415; 73630; 75635; 80048; 80053; 82962; 85025; 85610; 85652; 85730; 86140; 87070; 87077; 87186; 87205; 97162; 97165; 97802; 99283; J7030; J7040; J7050; Q9967; A4216; J2405

== ENCOUNTER → 2022-05-24 | Outpatient (CLI) | payer MEDICARE, SELFPAY ==
[2022-05-24 17:15] LABS: Absolute Lymphocyte Count 3.27 X10^3/uL (0.83-4.51); Absolute Neutrophil Count 6.1 X10^3/uL (2.0-7.7); Basophil# 0.07 X10^3/uL; Basophil% 0.7 % (0-1); Eosinophil# 0.24 X10^3/uL; Eosinophils% 2.2 % (0-5); Hematocrit 26.9 % (37-47); Hemoglobin 8.2 g/dL (12.0-15.0); Lymphocyte # 3.27 X10^3/ul (0.83-4.51); Lymphocyte % 30.5 % (19-41); Mean Corp Hgb Conc 30.5 g/dL (32-36); Mean Corpuscular Hgb 27.1 pg (27.0-32.0); Mean Corpuscular Volume 88.8 fL (81-99); Mean Platelet Vol. 9.7 fl (6.2-12.0); Monocyte# 0.94 X10^3/uL; Monocyte% 8.8 % (0-10); NRBC Flagged by Analyzer 0 % (0-5); Neutrophil # 6.12 X10^3/uL (2.7-7.7); Neutrophil % 57.1 % (47-70); Platelet Count 449 K/mm3 (150-450); RBC Distribution Width CV 17.2 % (11.6-14.6); RBC Distribution Width SD 54.5 fl (35.1-43.9); Red Blood Count 3.03 M/mm3 (4.2-5.4); White Blood Count 10.7 K/mm3 (4.4-11.0)
[2022-05-24 17:29] LABS: Vitamin D,25 Hydroxy 19.4 ng/mL
[2022-05-24 17:58] LABS: ALB/GLOB Ratio 0.7 RATIO (0.9-2.4); AST(SGOT) 20 U/L (15-37); Alanine Aminotransfer ALT/SGPT 27 U/L (13-56); Albumin, Serum 2.9 g/dL (3.2-5.0); Alkaline Phosphatase 70 U/L (45-117); Anion Gap 7 (5-15); BUN 35 mg/dL (7-18); BUN/Creat Ratio 29.9 RATIO (10-20); Calcium,Total 9.6 mg/dL (8.5-10.1); Chloride 106 mmol/L (98-107); Creatinine, Serum 1.17 mg/dL (0.55-1.02); EST Glomerular Filtration Rate 48 mL/min (>60); Est Glom Filt Rate - Afr Amer 58 mL/min (>60); Globulin 4.1 g/dL (2.2-4.2); Glucose 178 mg/dL (74-106); Potassium 6.2 mmol/L (3.5-5.1); Sodium Level 134 mmol/L (136-145); Thyroid Stim Hormone (TSH) 2.16 uIU/mL (0.358-3.74)
== END | disposition home or self-care (01) ==
LOC: POLAB3 15:18
PROVIDERS: PCP Family Medicine Geriatric Medicine; Visit Provider Family Medicine Geriatric Medicine
DX: E55.9 Vitamin D deficiency, unspecified (principal); E11.51 Type 2 diabetes mellitus with diabetic peripheral angiopathy without gangrene; I10 Essential (primary) hypertension
CPT/HCPCS: 36415; 80053; 82306; 84443; 85025

== ENCOUNTER 2022-06-03 16:23 | Inpatient (IN) | payer MEDICARE, SELFPAY ==
[2022-06-03 16:23] VITALS: BP 111/57; PULSE 68; RESP 16; TEMP 36.9; O2SAT 100
--- NOTE | 2022-06-03 18:21 | ED.VIS.LOWEX ---
HPI History of Present Illness Chief Complaint: Lower Extremity Injury Informant: patient and spouse/S.O. Narrative Narrative: Patient has a diabetic foot wound right foot, she had surgery by Dr. Grimaldo several weeks ago, he saw her in the office yesterday and recommended that she come to the hospital to get admitted for surgery. The patient was apprehensive and did not calm but is now more willing to undergo surgery even if it involves partial amputation of her foot. She denies any systemic symptoms, her foot has been hurting a little more last couple days but she took a pain pill prior to coming here and it is doing better now. Has been change dressing just prior to coming here. states that she is prescribed an antibiotic but she is taking it inconsistently. She is a diabetic, but states her sugars have been okay recently. She denies any fevers or chills. [facility] Medical History Arthritis Diabetes Essential (primary) hypertension Gastric reflux High cholesterol History of venous thromboembolism Hormone deficiency Hyperlipidemia PAD (peripheral artery disease) Post-menopausal Seasonal allergies Type 2 diabetes mellitus Wears glasses Home Medications insulin degludec 200 unit/mL (3 mL) subcutaneous pen (Tresiba FlexTouch U-200 insulin) 80 unit subcut BID diabetes 01/21/21 [History Last Taken 06/03/22] lisinopril 10 mg tablet 10 mg PO DAILY BP 02/17/21 [History Last Taken 06/03/22] clopidogrel 75 mg tablet (Plavix) 75 mg PO DAILY #90 tabs 03/25/22 [Rx Last Taken 06/03/22] omeprazole 40 mg capsule,delayed release 40 mg PO BID #60 caps 04/06/22 [Rx Last Taken 06/03/22] acetaminophen 500 mg tablet 500 - 1,000 mg PO Q6H PRN Pain 06/03/22 [History Last Taken 06/03/22] ascorbic acid (vitamin C) 500 mg tablet (Vitamin C) 500 mg PO DAILY SUPPLEMENT 06/03/22 [History Last Taken 06/03/22] aspirin 81 mg chewable tablet 81 mg PO DAILY HEALTH 06/03/22 [History Last Taken 06/03/22] atorvastatin 40 mg tablet 40 mg PO QHS CHOLESTEROL 06/03/22 [History Last Taken 06/02/22] baclofen 10 mg tablet 10 mg PO BID BACK 06/03/22 [History Last Taken 06/03/22] citalopram 20 mg tablet 20 mg PO DAILY DEPRESSION 06/03/22 [History Last Taken 06/03/22] levothyroxine 75 mcg tablet 75 mcg PO DAILY THYROID 06/03/22 [History Last Taken 06/03/22] metoprolol succinate 50 mg tablet,extended release 24 hr 50 mg PO DAILY HEART 06/03/22 [History Last Taken 06/03/22] oxycodone 5 mg tablet 5 mg PO BID PAIN 06/03/22 [History Last Taken 06/03/22] polysaccharide iron complex 150 mg iron capsule (iFerex 150) 150 mg PO DAILY SUPPLEMENT 06/03/22 [History Last Taken 06/03/22] pregabalin 50 mg capsule 50 mg PO BID PAIN 06/03/22 [History Last Taken 06/03/22] Allergy/AdvReac Type Severity Reaction Status Date / Time diphenhydramine Allergy Swelling Verified 06/03/22 16:26 [[facility] Family History Father Heart disease Hypertension Mother Diabetes Hypertension Kidney disease Liver disease Other Arthritis Surgical History History of S/P foot surgery, right Social History household members: spouse housing: house number of children: 2 current occupational status: retired history of recent travel: No other: Patient did have notable secondhand tobacco exposure from [employer]. Smoking Status: Never smoker alcohol intake: never substance use type: does not use what type of physical activity do you participate in: none ROS ROS ED Constitutional Constitutional ED: Denies chills or fever(s) Musculoskeletal Musculoskeletal: Reports extremity pain; Denies neck pain Integumentary Reports wounds; Denies Abrasions or rash Neurologic Neurologic: Reports paresthesias RLE (foot) and LLE (foot); Denies weakness EXAM Physical Exam Const Vital Signs: 06/03/22 16:23 06/03/22 19:45 Temperature 98.5 F 97.8 F Temperature Source Temporal Oral Pulse Rate 68 62 Respiratory Rate 16 17 Blood Pressure 111/57 L 117/52 L Blood Pressure Mean 75 73 Pulse Ox 100 99 Oxygen Delivery Method Room Air Room Air Positive well nourished and well developed General Appearance ED: well developed and NAD Neck full ROM and supple Back/Spine normal ROM and normal to inspection Neuro oriented x3, no focal motor deficits and no sensory deficits noted Sensorium / Orientation: alert Psych mental status grossly normal and thought process normal Skin Skin Narrative: Wound on the lateral aspect of the right forefoot, progresses back along the peroneal aspect of the foot toward the midfoot, there is a gangrenous nontender insensate tissue involving the peroneal-most toe, toe #3; the entire toe is gangrenous and insensate. She has some very mild tenderness at an opening in the wound between what appears to be viable tissue dorsally and gangrenous tissue below, without any expressible discharge. There is no lymphangitis, there is insignificant surrounding erythema. No palpable pulses in the feet. Brisk cap refill toes that are not gangrenous, but they are insensate. Rashes: no rashes MDM MDM MDM Narrative Medical decision making narrative: Labs are obtained and noted. Three-view x-ray series of the right foot were obtained, do not show any obvious bony destruction. Reviewed the radiology interpretation which I agree with. No obvious evidence of subcutaneous gas tracking into fascial planes. Will administer empiric IV antibiotics. Discussed with podiatry Dr. Ernandez. He states that Dr. Grimaldo is planning on doing a debridement and probable partial amputation of the foot, requesting medicine admit due to her diabetes and need for medical clearance, agrees with giving antibiotics, discussed with hospitalist. Prior to admission the patient became very anxious and wanted to leave. I had a discussion with her, convincing her to stay and offering her an anxiolytic, she was amenable to that and staying. For that reason she was given Ativan 0.5 mg IV which really helped did not cause any adverse effects. History & Record Review Additional record(s) reviewed:: Prior inpatient record (Showing recent procedure including vascular studies and procedure to open right SFA) Lab Data Attestation: I reviewed the patient's lab results. Labs: Laboratory Results - last 24 hr 06/03/22 06/03/22 18:35 18:35 WBC 12.0 H RBC 3.70 L Hgb 10.3 L Hct 33.0 L MCV 89.2 MCH 27.8 MCHC 31.2 L RDW Std Deviation 57.1 H RDW Coeff of Melvina 17.3 H Plt Count 366 MPV 9.5 Immature Gran % (Auto) 0.200 Neut % (Auto) 58.5 Lymph % (Auto) 31.9 [place] % (Auto) 7.8 Eos % (Auto) 1.0 Baso % (Auto) 0.6 Absolute Neuts (auto) 7.0 Absolute Lymphs (auto) 3.83 Nucleated RBC % 0 ESR 50 H Sodium 135 L Potassium 4.1 Chloride 107 Carbon Dioxide 19.0 L Anion Gap 9 BUN 46 H Creatinine 1.22 H Est GFR (MDRD) Af Amer 56 L Est GFR (MDRD) Non-Af 46 L BUN/Creatinine Ratio 37.7 H Glucose 140 H Calcium 10.1 C-React Prot Ext Range 6.89 H Radiography Diagnostic Testing: Clinical Impression(s) from Imaging Studies Foot X-Ray 06/03/22 18:45 IMPRESSION: Decreased soft tissue gas near the operative site. No finding to suggest bone infection. Electronically Signed: Michael Shah MD at 19:11 EST , Management Discussion w/another healthcare provider: Hospitalist and Food Concession Manager (Podiatry) Discharge Plan Dx/Rx/DC Orders Clinical Impression: Gangrene of right foot, Peripheral vascular disease, unspecified, Atherosclerosis of lower extremity with ulceration Disposition Disposition: Acute Care Hospital [facility] Discharge Date/Time: 06/03/22 22:08
--- NOTE | 2022-06-03 18:45 | RAD_ITS ---
INDICATION: Pain, infection EXAMINATION/TECHNIQUE: X-RAY - RIGHT XR Foot Min 3 Views 3 VIEWS COMPARISON: 05/06/2022 FINDINGS: SOFT TISSUES: Decreased soft tissue gas near the operative site. No unexpected radiopaque foreign body. BONES/JOINTS: Fourth and fifth ray amputations redemonstrated. No acute fracture or subluxation. No periosteal reaction or bone erosion. Lateral malleolus ORIF redemonstrated. Lisfranc and Chopart planes appear normal. RAD/Foot min 3 Views IMPRESSION: Decreased soft tissue gas near the operative site. No finding to suggest bone infection. Electronically Signed: Michael Shah MD at 19:11 EST ,
[2022-06-03 18:49] LABS: Absolute Lymphocyte Count 3.83 X10^3/uL (0.83-4.51); Basophil# 0.07 X10^3/uL; Basophil% 0.6 % (0-1); Eosinophil# 0.12 X10^3/uL; Hemoglobin 10.3 g/dL (12.0-15.0); Lymphocyte # 3.83 X10^3/ul (0.83-4.51); Lymphocyte % 31.9 % (19-41); Mean Corp Hgb Conc 31.2 g/dL (32-36); Mean Corpuscular Hgb 27.8 pg (27.0-32.0); Mean Corpuscular Volume 89.2 fL (81-99); Mean Platelet Vol. 9.5 fl (6.2-12.0); Monocyte# 0.94 X10^3/uL; Monocyte% 7.8 % (0-10); NRBC Flagged by Analyzer 0 % (0-5); Neutrophil # 7.02 X10^3/uL (2.7-7.7); Neutrophil % 58.5 % (47-70); Platelet Count 366 K/mm3 (150-450); RBC Distribution Width CV 17.3 % (11.6-14.6); RBC Distribution Width SD 57.1 fl (35.1-43.9)
[2022-06-03 18:57] LABS: Anion Gap 9 (5-15); BUN 46 mg/dL (7-18); BUN/Creat Ratio 37.7 RATIO (10-20); CRP 6.89 mg/L (0.0-3.0); Calcium,Total 10.1 mg/dL (8.5-10.1); Chloride 107 mmol/L (98-107); Creatinine, Serum 1.22 mg/dL (0.55-1.02); EST Glomerular Filtration Rate 46 mL/min (>60); Est Glom Filt Rate - Afr Amer 56 mL/min (>60); Glucose 140 mg/dL (74-106); Potassium 4.1 mmol/L (3.5-5.1); Sodium Level 135 mmol/L (136-145)
[2022-06-03 19:04] LABS: Erythrocyte Sedimentation Rate 50 mm/hr (0-30)
[2022-06-03 19:21] VITALS: BMI 21.4
[2022-06-03] MEDS: Morphine 4 MG/ML Syringe IV (19:43)
[2022-06-03 19:45] VITALS: BP 117/52; PULSE 62; RESP 17; TEMP 36.6; O2SAT 99
--- NOTE | 2022-06-03 20:12 | EKG12_ITS ---
Test Reason : PRE-OP Blood Pressure : / mmHG Vent. Rate : 085 BPM Atrial Rate : 085 BPM P-R Int : 136 ms QRS Dur : 074 ms QT Int : 366 ms P-R-T Axes : 033 -23 077 degrees QTc Int : 435 ms Normal sinus rhythm Normal ECG When compared with ECG of 14-APR-2022 07:53, No significant change was found Confirmed by BETZY KLEIN, CATHRYN ([id number]), editor farm journal CHECO VELASCO ([id number]) on 06/08/2022 8:01:02 AM Referred By: Confirmed By:CATHRYN BO MD
--- NOTE | 2022-06-03 20:17 | PCM.HP.STD ---
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 She described the pain as regular pain . Further, patient stated initially that nothing makes the pain worse or better. However, upon prompting from his significant other patient admitted that with walking her pain is worse. Patient reported the pain does not radiate. Patient saw her assistant pastry chef, Dr. Grimaldo a day before presentation and patient was advised to come to the hospital for a possible partial amputation of her right foot. [facility] Medical History Arthritis Diabetes Essential (primary) hypertension Gastric reflux High cholesterol History of venous thromboembolism Hormone deficiency Hyperlipidemia PAD (peripheral artery disease) Post-menopausal Seasonal allergies Type 2 diabetes mellitus Wears glasses Home Medications insulin degludec 200 unit/mL (3 mL) subcutaneous pen (Tresiba FlexTouch U-200 insulin) 80 unit subcut BID diabetes 01/21/21 [History Last Taken 06/03/22] lisinopril 10 mg tablet 10 mg PO DAILY BP 02/17/21 [History Last Taken 06/03/22] clopidogrel 75 mg tablet (Plavix) 75 mg PO DAILY #90 tabs 03/25/22 [Rx Last Taken 06/03/22] omeprazole 40 mg capsule,delayed release 40 mg PO BID #60 caps 04/06/22 [Rx Last Taken 06/03/22] acetaminophen 500 mg tablet 500 - 1,000 mg PO Q6H PRN Pain 06/03/22 [History Last Taken 06/03/22] ascorbic acid (vitamin C) 500 mg tablet (Vitamin C) 500 mg PO DAILY SUPPLEMENT 06/03/22 [History Last Taken 06/03/22] aspirin 81 mg chewable tablet 81 mg PO DAILY HEALTH 06/03/22 [History Last Taken 06/03/22] atorvastatin 40 mg tablet 40 mg PO QHS CHOLESTEROL 06/03/22 [History Last Taken 06/02/22] baclofen 10 mg tablet 10 mg PO BID BACK 06/03/22 [History Last Taken 06/03/22] citalopram 20 mg tablet 20 mg PO DAILY DEPRESSION 06/03/22 [History Last Taken 06/03/22] levothyroxine 75 mcg tablet 75 mcg PO DAILY THYROID 06/03/22 [History Last Taken 06/03/22] metoprolol succinate 50 mg tablet,extended release 24 hr 50 mg PO DAILY HEART 06/03/22 [History Last Taken 06/03/22] oxycodone 5 mg tablet 5 mg PO BID PAIN 06/03/22 [History Last Taken 06/03/22] polysaccharide iron complex 150 mg iron capsule (iFerex 150) 150 mg PO DAILY SUPPLEMENT 06/03/22 [History Last Taken 06/03/22] pregabalin 50 mg capsule 50 mg PO BID PAIN 06/03/22 [History Last Taken 06/03/22] Allergy/AdvReac Type Severity Reaction Status Date / Time diphenhydramine Allergy Swelling Verified 06/03/22 16:26 [[facility] Family History Father Heart disease Hypertension Mother Diabetes Hypertension Kidney disease Liver disease Other Arthritis Surgical History History of S/P foot surgery, right Social History household members: spouse housing: house number of children: 2 current occupational status: retired history of recent travel: No other: Patient did have notable secondhand tobacco exposure from [employer]. Smoking Status: Never smoker alcohol intake: never substance use type: does not use what type of physical activity do you participate in: none ROS ROS Narrative Pertinent positives and pertinent negatives as noted in HPI. All other systems were reviewed and are negative Vital Signs Vital Signs Vital Signs: 06/03/22 16:23 06/03/22 19:45 Temperature 98.5 F 97.8 F Temperature Source Temporal Oral Pulse Rate 68 62 Respiratory Rate 16 17 Blood Pressure 111/57 L 117/52 L Blood Pressure Mean 75 73 Pulse Ox 100 99 Oxygen Delivery Method Room Air Room Air Weight Weight: 53.1 kg Body Mass Index (BMI) 21.4 Physical Exam Narrative Physical exam: General: Well-nourished, well-developed. Head: Normocephalic, atraumatic, no tenderness Eyes: Vision is grossly intact. EOMI ENT, no trauma, moist mucous membranes, no rhinorrhea Neck: Nontender, No thyromegaly. CVS: Regular rate and rhythm. S1-S2 present. No murmur, gallop or rub. Respiratory : clear to auscultation bilaterally, chest wall nontender, no wheezing Abdomen: Soft, nontender, nondistended, normal bowel sounds, no masses : Deferred Back: Nontender, no CVA tenderness, no midline spinal tenderness, deformities, step-offs Extremities: Lateral side of right foot with gangrene. No of fourth and fifth toes of the right leg. Right foot with no edema. Left leg and foot with no edema. Skin: Normal color, no trauma, abrasions Neuro: Alert, oriented, cranial nerves II through XII grossly intact. Psychiatry: Normal mood. Normal affect. Not depressed. Not anxious. Results Lab / Micro Data Result Diagrams: 06/03/22 18:35 06/03/22 18:35 Labs: Laboratory Results - last 24 hr 06/03/22 18:35: WBC 12.0 H, RBC 3.70 L, Hgb 10.3 L, Hct 33.0 L, MCV 89.2, MCH 27.8, MCHC 31.2 L, RDW Std Deviation 57.1 H, RDW Coeff of Melvina 17.3 H, Plt Count 366, MPV 9.5, Immature Gran % (Auto) 0.200, Neut % (Auto) 58.5, Lymph % (Auto) 31.9, [place] % (Auto) 7.8, Eos % (Auto) 1.0, Baso % (Auto) 0.6, Absolute Neuts (auto) 7.0, Absolute Lymphs (auto) 3.83, Nucleated RBC % 0, ESR 50 H 06/03/22 18:35: Sodium 135 L, Potassium 4.1, Chloride 107, Carbon Dioxide 19.0 L, Anion Gap 9, BUN 46 H, Creatinine 1.22 H, Est GFR (MDRD) Af Amer 56 L, Est GFR (MDRD) Non-Af 46 L, BUN/Creatinine Ratio 37.7 H, Glucose 140 H, Calcium 10.1, C-React Prot Ext Range 6.89 H Radiology Impression Foot X-Ray 06/03/22 18:45 IMPRESSION: Decreased soft tissue gas near the operative site. No finding to suggest bone infection. Electronically Signed: Michael Shah MD at 19:11 EST , Assessment & Plan Assessment/Plan (1) Gangrene of right foot: (2) Type 2 diabetes mellitus with diabetic polyneuropathy: PLAN: Plan Gangrene of right foot Increase inflammatory markers with CRP of 6.89 on presentation; and ESR of 50. Impression of foot x-ray by radiologist: Decreased soft tissue gas near the operative site. No finding to suggest bone infection. Foot x-ray was independently interpreted. I agree with radiology interpretation above. Vancomycin and Zosyn started emergency department and continued. Home aspirin continued. Plavix held. CBC showed mild leukocytosis. Trend. ACS NSQIP surgical risk calculator with below risk of cardiopulmonary complications History of peripheral artery disease. Not improving Status post bypass surgery. Aspirin continued. Plavix had a good history patient been surgical candidate. Lipitor continued. 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 Home basal insulin adjusted. Accu-Chek with correction scale insulin ordered. Depression/anxiety Home meds continued. As needed Ativan and ordered. CKD stage IIIa Stable Trend BMP. Hypertension Blood pressure is stable Home blood pressure medication continued. Trend blood pressure and adjust blood pressure medications. DVT prophylaxis SCDs Charges/Coding Visit Charges Inpatient E&M: 13074 Init Hosp L3
[2022-06-03] MEDS: LORazepam 2 MG/ML Syringe 0.5 MG IV (20:55)
[2022-06-03 21:27] VITALS: BP 124/45; PULSE 60; RESP 18; TEMP 36.4; O2SAT 99
[2022-06-03 22:13] VITALS: BMI 20.7
[2022-06-03] MEDS: Lactated Ringers 1,000 ML 75 ML IV (23:11)
[2022-06-03 23:13] VITALS: BP 122/47; PULSE 68; RESP 18; TEMP 36.7; O2SAT 98
[2022-06-03] MEDS: Pantoprazole Sodium 40 MG Tablet PO (23:24)
[2022-06-03] MEDS: Sucralfate 1 GM Tablet PO (23:24)
[2022-06-03] MEDS: 0.9% Saline Lock 10 ML Syringe IV (23:26)
[2022-06-03 23:31] VITALS: O2SAT 98
--- NOTE | 2022-06-03 23:38 | PCM.RX.CS ---
Consult Pharmacy has been consulted to manage selected antiobiotic: Vancomycin Type of Consult: New start Suspected Infection: Skin/Soft tissue Prior Doses of Antibiotics Received/Current Regimen: Medications Vancomycin HCl 750 mg/ Sodium (Chloride) 265 mls @ 250 mls/hr IV Q24H LEXIE Vancomycin HCl 750 mg/ Sodium (Chloride) 265 mls @ 250 mls/hr IV X1 ONE Stop: 06/04/22 00:03 Last Admin: 06/03/22 23:23 Dose: 250 mls/hr Labs: Sodium 135 mmol/L (136-145) L 06/03/22 18:35 Potassium 4.1 mmol/L (3.5-5.1) 06/03/22 18:35 Chloride 107 mmol/L (98-107) 06/03/22 18:35 Carbon Dioxide 19.0 mmol/L (21.0-32.0) L 06/03/22 18:35 Anion Gap 9 (5-15) 06/03/22 18:35 BUN 46 mg/dL (7-18) H 06/03/22 18:35 Creatinine 1.22 mg/dL (0.55-1.02) H 06/03/22 18:35 Est GFR (MDRD) Af Amer 56 mL/min (>60) L 06/03/22 18:35 Est GFR (MDRD) Non-Af 46 mL/min (>60) L 06/03/22 18:35 BUN/Creatinine Ratio 37.7 RATIO (10-20) H 06/03/22 18:35 Glucose 140 mg/dL (74-106) H 06/03/22 18:35 Weight used for dosin.4 kg Estimated Creatinine Clearance: 33 Goal Trough: 15-20 mcg/mL Pharmacy Plan for Drug Dosing: Pharmacy Service will continue to monitor and adjust dosing as required. Follow-Up Labs: Trough Vancomycin Labs to be done on [date and time ordered]: 06/05/22 @2300
[2022-06-04] VITALS (19 sets, daily range): BP systolic 118–153; BP diastolic 43–69; PULSE 70–94; RESP 16–20; TEMP 36.3–37.1; O2SAT 95–100; BMI 20.7
--- NOTE | 2022-06-04 | FOOT_PTH ---
PATIENT: YENNY LUGO LOC: [facility] U#:[id number] AGE/SX: 72/F ROOM: [facility] RE06/03/[address]: Dr. Kaleb Hawkins MD : 1950 BED: 1 DIS: 06/08/2022 SPEC #: [id number] RECD: 06/04/22 14:59 STATUS: SUSANNE MCCOY #: [id number] SIERRA: 06/04/22 00:[address]: Yazan Grimaldo DEPT: SURGICAL PATHOLOGY RECD BY: Jayden Rodriguez ENTERED: 06/07/22 08:42 SP TYPE: FOOT OTHR DR: Dr. Yazan Grimaldo, DPM MD Dr. Dean Ramirez MD Dr. Prakash Chand, MD Dr. Tai Chi Kwok, MD Tissues: Foot, NOS Procedures: Decalcification bone/plaque Surgery Specimen Level IV Comments: @ Ordering doctor for DEC edited from to @ tomasz MARX at 06/07/22 143 @ Ordering doctor for SUIV edited from to @ by ARASELI at 06/07/22 1431 @ Submitting doctor edited from to DR.DBULLA Jacob MARX at 06/07/22 1431 HEADER OPERATION: Amputation transmetatarsal PRE-OP DIAGNOSIS: Gangrene of right foot TISSUE SUBMITTED: Right foot bone and tissue MICROSCOPIC DIAGNOSIS Right foot bone and tissue, amputation transmetatarsal: Focal ulceration, gangrenous necrosis, acute inflammation and abscess formation. Bone with focal acute osteomyelitis. ANN MARIE:timi 06/10/2022 MICROSCOPIC DESCRIPTION Slides are reviewed. GROSS DESCRIPTION Received in fixative is one container labeled with the patient's name and designated right foot bone and tissue. The specimen consists of multiple irregular fragments of lezama skin and soft tissue that in aggregate measure 9.0 x 6.0 x 1.5 cm. Also present in the container are multiple fragments of bone consisting of metatarsals measuring in aggregate 7.0 x 4.5 x 1.5 cm. Also present in the container is a detached pieces of bone measuring in aggregate 5.5 x 4.0 x 1.0 cm. Film Producer sections of soft tissue are submitted in two cassettes. Sections from the bone are submitted in cassettes 3-6 after decalcification. / ANN MARIE:timi 06/07/2022 TC:2 CPT: 49123, [id number]
[2022-06-04] MEDS: LORazepam 0.5 MG Tablet PO ×3 (00:45→21:50)
[2022-06-04 01:46] LABS: Bedside Glucose 115 mg/dL (74-106)
[2022-06-04] MEDS: oxyCODONE 5 MG Tablet PO ×2 (03:38→08:22)
[2022-06-04 05:51] LABS: Absolute Lymphocyte Count 1.79 X10^3/uL (0.83-4.51); Absolute Neutrophil Count 5.7 X10^3/uL (2.0-7.7); Basophil# 0.06 X10^3/uL; Basophil% 0.7 % (0-1); Eosinophil# 0.13 X10^3/uL; Eosinophils% 1.5 % (0-5); Hematocrit 27.5 % (37-47); Hemoglobin 8.8 g/dL (12.0-15.0); Lymphocyte # 1.79 X10^3/ul (0.83-4.51); Lymphocyte % 21.3 % (19-41); Mean Corpuscular Hgb 28.1 pg (27.0-32.0); Mean Corpuscular Volume 87.9 fL (81-99); Mean Platelet Vol. 9.6 fl (6.2-12.0); Monocyte# 0.72 X10^3/uL; Monocyte% 8.6 % (0-10); NRBC Flagged by Analyzer 0 % (0-5); Neutrophil # 5.66 X10^3/uL (2.7-7.7); Neutrophil % 67.4 % (47-70); Platelet Count 270 K/mm3 (150-450); RBC Distribution Width CV 17.2 % (11.6-14.6); RBC Distribution Width SD 54.6 fl (35.1-43.9); Red Blood Count 3.13 M/mm3 (4.2-5.4); White Blood Count 8.4 K/mm3 (4.4-11.0)
[2022-06-04] MEDS: Levothyroxine 75 MCG Tablet PO (05:51)
[2022-06-04 06:19] LABS: Anion Gap 8 (5-15); BUN 40 mg/dL (7-18); Chloride 108 mmol/L (98-107); Creatinine, Serum 0.89 mg/dL (0.55-1.02); EST Glomerular Filtration Rate 66 mL/min (>60); Est Glom Filt Rate - Afr Amer 80 mL/min (>60); Estimated Creatinine Clearance 44.53 ml/min; Glucose 186 mg/dL (74-106); Potassium 3.9 mmol/L (3.5-5.1); Sodium Level 134 mmol/L (136-145)
[2022-06-04] MEDS: Sucralfate 1 GM Tablet PO ×2 (06:30→21:50)
[2022-06-04] MEDS: Lisinopril 10 MG Tablet PO (06:43)
[2022-06-04] MEDS: Metoprolol(XL)Succ 50 MG Tablet PO (06:43)
[2022-06-04] MEDS: Pantoprazole Sodium 40 MG Tablet PO ×2 (06:43→21:51)
[2022-06-04 07:15] LABS: Bedside Glucose 186 mg/dL (74-106)
--- NOTE | 2022-06-04 09:34 | WOUNDNOTE ---
wound photo: right foot
--- NOTE | 2022-06-04 09:35 | WOUNDNOTE ---
wound photo: right medial foot
--- NOTE | 2022-06-04 10:16 | CASEMGMT ---
MARKIE BURDEN Readmission Review: Index: 05/06 thru 05/08, Dx: Dry gangrene of her right foot secondary to acute on chronic lower extremity ischemia on the right due to peripheral vascular disease Readmission: 06/03, Dx: Gangrene of right foot Pt with hx of DM type II with polyneuropathy, nephropathy, peripheral vascular disease, CKD IIIa, HTN, and depression/anxiety admitted on the above noted dates for the noted diagnoses. Pt was also admitted 04/14 with the same dx and underwent an amputation of the fourth and fifth digit with partial fifth ray resection by Dr. Grimaldo. Pt was discharged with PO antibiotics and assistance with dressing changes by [facility] and the [facility]. Pt was to be NWB with heel touch in a sugical shoe for transfers only. Pt returned on 05/06 and was noted to have declined [facility] services but had followed up with her PCP Dr. Carlson, Dr. Grimaldo, and the [facility]. Pt stated she was compliant with her medications and was able to change her dressings with the assistance of her . Vascular services were determined to be needed and pt was transferred to [facility] for these care needs. No additional appointments since 05/08 for the [facility] are noted in the EMR. Pt has been readmitted with ongoing gangrene of this right foot. Dr. Grimaldo c/s pending at this time for determined plan of care. Will continue to monitor and assist with DC needs as identified. Lisset Bar RN CM
[2022-06-04] MEDS: Lactated Ringers 1,000 ML 15 ML IV (11:08)
--- NOTE | 2022-06-04 11:42 | PCM.PN.HOSP ---
Reason for Visit Reason for Visit: Diagnoses Type 2 diabetes mellitus with diabetic polyneuropathy (06/03/22) Gangrene, not elsewhere classified (06/03/22) Subjective Subjective Doing well today, she is resting comfortably in bed states that she has significant pain in her leg 9 out of 10 Objective Data Objective Data Vital Signs: Vital Signs Temp Pulse Resp BP Pulse Ox O2 Del Method 98.7 F 72 18 139/50 H 98 Room Air 06/04/22 08:58 06/04/22 08:58 06/04/22 08:58 06/04/22 08:58 06/04/22 08:58 06/04/22 08:58 Oxygen Delivery Method Room Air Weight: 113 lb 5.082 oz Body Mass Index (BMI) 20.7 Intake & Output: Intake and Output for Last 24 Hours 06/03/22 06/04/22 06/05/22 03:59 03:59 03:59 Intake Total 390 / 390 617.5 / 617.5 Balance 390 / 390 617.5 / 617.5 Lab / Micro Data Result Diagrams: 06/04/22 05:19 06/04/22 05:19 Labs: Laboratory Results - last 24 hr 06/03/22 18:35: WBC 12.0 H, RBC 3.70 L, Hgb 10.3 L, Hct 33.0 L, MCV 89.2, MCH 27.8, MCHC 31.2 L, RDW Std Deviation 57.1 H, RDW Coeff of Melvina 17.3 H, Plt Count 366, MPV 9.5, Immature Gran % (Auto) 0.200, Neut % (Auto) 58.5, Lymph % (Auto) 31.9, [place] % (Auto) 7.8, Eos % (Auto) 1.0, Baso % (Auto) 0.6, Absolute Neuts (auto) 7.0, Absolute Lymphs (auto) 3.83, Nucleated RBC % 0, ESR 50 H 06/03/22 18:35: Sodium 135 L, Potassium 4.1, Chloride 107, Carbon Dioxide 19.0 L, Anion Gap 9, BUN 46 H, Creatinine 1.22 H, Est GFR (MDRD) Af Amer 56 L, Est GFR (MDRD) Non-Af 46 L, BUN/Creatinine Ratio 37.7 H, Glucose 140 H, Calcium 10.1, C-React Prot Ext Range 6.89 H 06/03/22 23:18: POC Glucose 115 H 06/04/22 05:19: WBC 8.4, RBC 3.13 L, Hgb 8.8 L, Hct 27.5 L, MCV 87.9, MCH 28.1, MCHC 32.0, RDW Std Deviation 54.6 H, RDW Coeff of Melvina 17.2 H, Plt Count 270, MPV 9.6, Immature Gran % (Auto) 0.500, Neut % (Auto) 67.4, Lymph % (Auto) 21.3, [place] % (Auto) 8.6, Eos % (Auto) 1.5, Baso % (Auto) 0.7, Absolute Neuts (auto) 5.7, Absolute Lymphs (auto) 1.79, Nucleated RBC % 0 06/04/22 05:19: Sodium 134 L, Potassium 3.9, Chloride 108 H, Carbon Dioxide 18.0 L, Anion Gap 8, BUN 40 H, Creatinine 0.89, Estim Creat Clear Calc 44.53, Est GFR (MDRD) Af Amer 80, Est GFR (MDRD) Non-Af 66, BUN/Creatinine Ratio 45.0 H, Glucose 186 H, Calcium 9.0 06/04/22 05:45: POC Glucose 186 H Radiography Diagnostic Testing: Radiology Impression Foot X-Ray 06/03/22 18:45 IMPRESSION: Decreased soft tissue gas near the operative site. No finding to suggest bone infection. Electronically Signed: Michael Shah MD at 19:11 EST , Physical Exam Narrative General: Alert, Oriented x3, Cooperative, No apparent distress HEENT: Atraumatic, PERRLA, EOMI, Normocephalic Oral: Moist Mucosa Neck: Supple, No JVD Lungs: Clear to auscultation, Normal air movement, No rhonchi, No wheeze, No rales Cardiovascular: Regular rate, Regular Rhythm, Normal S1, Normal S2, No murmurs Abdomen: Soft, Non Tender, Non-Distended, No Hepato-splenomegaly Extremities: Nonhealing wound on her right foot with poor circulation and an cold extremities Skin: Wound is dressed on her right foot, third toe on the right is necrotic Musculoskeletal: No Tenderness to Palpation of Joints or Extremities Neurological: Cranial nerves II-XII grossly intact, Motor Exam 5/5 strength throughout, Sensory exam intact to light touch and pain Psych/Mental Status: Normal Affect, Appropriate Assessment & Plan Assessment/Plan (1) Gangrene of right foot: (2) Type 2 diabetes mellitus with diabetic polyneuropathy: PLAN: Plan 1. Dry gangrene of her right foot with necrotic third toe/peripheral artery disease/HTN/HLD ? She was transferred to a tertiary care center during her last admission for vascular repair of her femoral artery she says that this was done and she is developed better perfusion of her lower extremity ? She was told that she would have a transmetatarsal amputation today by podiatry, will consult podiatry ? Continue with Vanco and Zosyn pending resection ? Blood pressures are stable, continue with her home blood pressure medications ? Continue with Lipitor, will hold her Plavix pending surgery 2. DM2/CKD 3a ? Continue with insulin ? We will make adjustments ? Accu-Cheks ACHS ? Renal function is at baseline we will continue to monitor 3. Anxiety/depression ? Stable ? Continue with her home medications DVT: SCDs Charges/Coding Visit Charges Inpatient E&M: 23903 Subs Hosp L2
--- NOTE | 2022-06-04 11:50 | CASEMGMT ---
MARKIE BURDEN: Attempted to meet with pt face to face to discuss any concerns since previous discharge and discharge needs from this admission. Pt not in her room at this time. Lisset Bar RN CM
[2022-06-04 12:05] LABS: Bedside Glucose 120 mg/dL (74-106)
[2022-06-04] MEDS: Bupivacaine 0.25% 30 ML Vial (12:20)
[2022-06-04] MEDS: BACITRACIN/POLYMYXIN B 15 GM Tube 1 APPLIC (13:06)
--- NOTE | 2022-06-04 13:46 | OP.PCM_ITS ---
Problems Associated Problem List Diagnoses (1) Peripheral vascular disease, unspecified: (2) Gangrene of right foot: Report of Operation Date of Procedure: 06/04/22 Pre-Operative Diagnosis: 1) Dry Gangrene, Right Foot 2) Full Thickness Wound, Right Foot Post-Operative Diagnosis: Same Surgery/Procedure Performed:: Transmetatarsal amputation Description of Surgical Findings:: Patient initially with severe peripheral arterial disease secondary to poorly controlled type 2 diabetes. Patient has a recent hemoglobin A1c from April 2022 of greater than 10. Patient underwent endovascular procedure to open and SFA occlusion. At this time patient had already developed dry gangrene to her fifth digit which required partial fifth ray and fourth digit amputation. Postoperatively patient developed ischemic rest pain and suffered a surgical wound dehiscence and subsequent necrosis of the remaining third digit and partial fifth and fourth ray resection sites. Additional imaging of the patient's vascular status demonstrated reoccluded SFA. [facility] and was cleared by vascular surgery performed a transmetatarsal amputation for closure of the soft tissue envelope. Today dry gangrene was amputated and there is noted to be healthy bleeding to the residual dorsal and plantar flaps of the amputation site. Surgeon: Yazan Grimaldo transplanter orchid: None (man riddle) Type of Anesthesia: General Special Medications: 20cc 0.25% marcaine plain Specimen's removed: Right forefoot Drains: no drains Estimated Blood Loss (mL): minimal Description of Procedure: Patient was brought back the operating placed comfortably in supine position on the operating room table. Patient was induced under general anesthesia. All osseous prominences offloaded prevent any compression neuropraxia. Preoperatively using 0.25% Marcaine plain 20 cc total and ankle ring block was performed aseptically. Right lower extremity was then scrubbed prepped and draped using typical aseptic fashion. Once cleared by anesthesia incisional to maintain adequate dorsal and plantar flaps were drawn and all necrotic tissue was removed using #15 blade following this is a modified fishmouth type incision which was made down to the bone. No tourniquet was used as patient recently underwent femoral-popliteal bypass. The first second third digits were disarticulated at the level of metatarsal phalangeal joint and passed to the back table. Next a dorsal and plantar flap was created using combination of 15 blade dissection and osteotomes resected down to the base of metatarsals 1 through 5. At this time attention was taken to any bleeders in the area they were cauterized. The first second third fourth and fifth metatarsals were resected using a sagittal saw maintaining the metatarsal parabola. These were passed the back table. Clinically it appeared that we had adequate soft tissue coverage for wound closure with adequate bone resection and maintenance of metatarsal parabola. Incisional site was flushed with copious amounts of normal sterile saline and closed using combination of simple buried interrupted 2-0 Vicryl to deep and subcutaneous layers and 3-0 Prolene to skin and using simple interrupted technique. Should be noted that any bleeders were cauterized prior to incisional closure. No tourniquet was used. There was adequate bleeding demonstrated throughout the case suggestive of good healing potential. The foot was then cleansed and dressed with bacitracin Adaptic 4 x 4's Kerlix ABD pads and paper tape. Patient was transferred to PACU vital signs stable vascular status intact all digits for further monitoring prior to discharge. Patient tolerated procedure and anesthesia well apparent satisfactory condition. Patient would likely be best served if she recovered in a [facility] facility.
--- NOTE | 2022-06-04 14:11 | RAD_ITS ---
EXAM: XR RIGHT FOOT COMPLETE, 3 OR MORE VIEWS CLINICAL INDICATION: amputation TECHNIQUE: Frontal, lateral and oblique views of the right foot. This report was created using [employer] report generation technology. COMPARISON: 06/03/2022 FINDINGS: BONES/JOINTS: There is been amputation of the foot at the level of the proximal metatarsals. Orthopedic plate and screws are seen across an old distal fibular fracture. Preservation of the joint space. No sclerotic or destructive changes observed. SOFT TISSUES: Unremarkable. No soft tissue swelling or gas. No radiopaque foreign body. RAD/Foot min 3 Views IMPRESSION: Amputation of foot at the level of the proximal metatarsals. Electronically Signed: Deven Donnelly MD at 17:09 EST ,
--- NOTE | 2022-06-04 14:18 | SUR.PHASEI ---
PACU ARRIVAL, C/O SEVERE LOWER ABDOMINAL PAIN, ABDOMEN SOFT, NON-TENDER, ACTIVE BOWEL SOUNDS, STATES SHE HAD A SMALL BUT NORMAL BM LAST EVENING, DENIES NAUSEA, DENIES URGE TO HAVE DIARRHEA. DENIES FEELING LIKE HEARTBURN. IMMEDIATELY ASKING FOR WATER. WILL NOTIFY DR WARD.
[2022-06-04 15:20] LABS: Bedside Glucose 159 mg/dL (74-106)
[2022-06-04 18:40] LABS: Bedside Glucose 157 mg/dL (74-106)
[2022-06-04] MEDS: oxyCODONE 5 MG Tablet 10 MG PO ×2 (19:54→23:32)
[2022-06-04] MEDS: Acetaminophen 325 MG Tablet 650 MG PO (21:50)
[2022-06-04] MEDS: Pregabalin 50 MG Capsule PO (21:50)
[2022-06-04] MEDS: Atorvastatin Calcium 40 MG Tablet PO (21:51)
[2022-06-04] MEDS: 0.9% Saline Lock 10 ML Syringe IV (21:54)
[2022-06-04 22:45] LABS: Bedside Glucose 153 mg/dL (74-106)
[2022-06-04] MEDS: Insulin Lispro 100 UNIT/ML INSULN.PEN SC (23:39)
[2022-06-04] MEDS: Vancomycin IV 1,000 MG/200 ML BAG 200 MG IV (23:46)
[2022-06-05] VITALS (14 sets, daily range): BP systolic 99–136; BP diastolic 34–85; PULSE 87–95; RESP 16–18; TEMP 36.4–37; O2SAT 93–99
[2022-06-05 00:15] LABS: Bedside Glucose 161 mg/dL (74-106)
[2022-06-05] MEDS: oxyCODONE 5 MG Tablet 10 MG PO ×3 (03:20→14:13)
[2022-06-05] MEDS: LORazepam 0.5 MG Tablet PO (04:22)
[2022-06-05] MEDS: Acetaminophen 325 MG Tablet 650 MG PO ×2 (04:22→11:55)
[2022-06-05] MEDS: Insulin Lispro 100 UNIT/ML INSULN.PEN SC ×4 (05:31→23:07)
[2022-06-05] MEDS: Levothyroxine 75 MCG Tablet PO (05:32)
[2022-06-05 06:25] LABS: Bedside Glucose 185 mg/dL (74-106)
[2022-06-05] MEDS: Sucralfate 1 GM Tablet PO ×4 (06:33→23:04)
[2022-06-05 06:38] LABS: Absolute Lymphocyte Count 1.56 X10^3/uL (0.83-4.51); Absolute Neutrophil Count 8.8 X10^3/uL (2.0-7.7); Basophil# 0.08 X10^3/uL; Basophil% 0.7 % (0-1); Eosinophil# 0.14 X10^3/uL; Eosinophils% 1.2 % (0-5); Hematocrit 24.5 % (37-47); Hemoglobin 7.8 g/dL (12.0-15.0); Lymphocyte # 1.56 X10^3/ul (0.83-4.51); Lymphocyte % 13.2 % (19-41); Mean Corp Hgb Conc 31.8 g/dL (32-36); Mean Corpuscular Hgb 28.4 pg (27.0-32.0); Mean Corpuscular Volume 89.1 fL (81-99); Mean Platelet Vol. 9.5 fl (6.2-12.0); Monocyte# 1.22 X10^3/uL; Monocyte% 10.4 % (0-10); NRBC Flagged by Analyzer 0 % (0-5); Neutrophil # 8.75 X10^3/uL (2.7-7.7); Neutrophil % 74.2 % (47-70); Platelet Count 240 K/mm3 (150-450); RBC Distribution Width CV 17.2 % (11.6-14.6); RBC Distribution Width SD 55.6 fl (35.1-43.9); Red Blood Count 2.75 M/mm3 (4.2-5.4); White Blood Count 11.8 K/mm3 (4.4-11.0)
--- NOTE | 2022-06-05 07:02 | NURSING ---
atiya reported to this RN that pt took off her drsg d/t severe pain. Drsg replaced, c/d/i at this time.
[2022-06-05 07:16] LABS: Anion Gap 7 (5-15); BUN 28 mg/dL (7-18); BUN/Creat Ratio 30.2 RATIO (10-20); Chloride 107 mmol/L (98-107); Creatinine, Serum 0.93 mg/dL (0.55-1.02); EST Glomerular Filtration Rate 63 mL/min (>60); Est Glom Filt Rate - Afr Amer 76 mL/min (>60); Estimated Creatinine Clearance 42.61 ml/min; Glucose 207 mg/dL (74-106); Potassium 4.1 mmol/L (3.5-5.1); Sodium Level 134 mmol/L (136-145)
[2022-06-05] MEDS: Glucerna Shake 120 ML LIQUID PO ×3 (09:09→16:13)
[2022-06-05] MEDS: Aspirin 81 MG TAB.CHEW PO (09:09)
[2022-06-05] MEDS: Baclofen 10 MG Tablet PO ×2 (09:10→16:13)
[2022-06-05] MEDS: Juven (unflavored) Packet 1 PACKET PO ×2 (09:10→16:13)
[2022-06-05] MEDS: Metoprolol(XL)Succ 50 MG Tablet PO (09:10)
[2022-06-05] MEDS: Iron Polysaccharide Complex 150 MG CAPSULE PO (09:10)
[2022-06-05] MEDS: Pantoprazole Sodium 40 MG Tablet PO ×2 (09:11→23:06)
[2022-06-05] MEDS: Citalopram 20 MG Tablet PO (09:11)
[2022-06-05] MEDS: Pregabalin 50 MG Capsule PO ×2 (09:11→23:17)
--- NOTE | 2022-06-05 10:38 | PN.HOSP_ITS ---
Subjective Subjective Resting comfortably, no issues overnight Objective Data Objective Data Vital Signs: Vital Signs Temp Pulse Resp BP Pulse Ox O2 Del Method O2 Flow Rate 98.3 F 87 16 107/43 L 96 Room Air 1 06/05/22 09:13 06/05/22 09:13 06/05/22 09:13 06/05/22 09:13 06/05/22 09:13 06/05/22 09:13 06/04/22 20:34 Oxygen Flow Rate (L/min) 1 Oxygen Delivery Method Room Air Weight: 113 lb 5.082 oz Body Mass Index (BMI) 20.7 Intake & Output: Intake and Output for Last 24 Hours 06/04/22 06/05/22 06/06/22 03:59 03:59 03:59 Intake Total 390 / 390 7.5 / 7.5 170 / 170 Output Total 0 / 0 Balance 390 / 390 2036.5 / 2036. 170 / 170 Medical Nutrition Assessment Dietitian: Malnutrition Criteria Met Start: 06/04/22 13:36 Freq: Status: Active Protocol: Document 06/04/22 13:36 RMA (Rec: 06/04/22 13:36 RMA [id number]) Nutrition Malnutrition Evidence of Malnutrition Exists Yes Malnutrition (severe): Acute Illness/Injury Evidenced By Suboptimal Energy Intake ( Severe),Weight Loss (Severe) Intake Problem Increased Nutrient Needs (specify) Etiology for protein related to increased demand for wound healing Signs/Symptoms as evidenced by nonhealing R DM foot wound Status Active Problem Clinical Problem Acute Disease or Injury Related Malnutrition Etiology Severe protein-calorie malnutrition in the context of acute illness related to inadequate oral intake Signs/Symptoms as evidenced by BMI 20.7, ~6% wt loss x 1 month, ~13% wt loss x 3 months and poor oral intake meeting less than 50% estimated nutrition needs x past 3 months Status Active Problem Recommendation Dietitian Recommendations/Changes Recommend advance diet post-op as tolerated to 1600 calorie/ consistent carbohydrate. Will add 120 ml strawberry glucerna shake TID w/ medpass. Will add Williams BID for wound healing. Additional dietary protein with meals as PO adequacy established with meals post-op . Lab / Micro Data Result Diagrams: 06/05/22 06:19 06/05/22 06:19 Labs: Laboratory Results - last 24 hr 06/04/22 11:43: POC Glucose 120 H 06/04/22 14:57: POC Glucose 159 H 06/04/22 18:12: POC Glucose 157 H 06/04/22 21:56: POC Glucose 153 H 06/04/22 23:34: POC Glucose 161 H 06/05/22 05:30: POC Glucose 185 H 06/05/22 06:19: WBC 11.8 H, RBC 2.75 L, Hgb 7.8 L, Hct 24.5 L, MCV 89.1, MCH 28.4, MCHC 31.8 L, RDW Std Deviation 55.6 H, RDW Coeff of Melvina 17.2 H, Plt Count 240, MPV 9.5, Immature Gran % (Auto) 0.300, Neut % (Auto) 74.2 H, Lymph % (Auto) 13.2 L, [place] % (Auto) 10.4 H, Eos % (Auto) 1.2, Baso % (Auto) 0.7, Absolute Neuts (auto) 8.8 H, Absolute Lymphs (auto) 1.56, Nucleated RBC % 0 06/05/22 06:19: Sodium 134 L, Potassium 4.1, Chloride 107, Carbon Dioxide 20.0 L , Anion Gap 7, BUN 28 H, Creatinine 0.93, Estim Creat Clear Calc 42.61, Est GFR (MDRD) Af Amer 76, Est GFR (MDRD) Non-Af 63, BUN/Creatinine Ratio 30.2 H, Glucose 207 H, Calcium 9.0 06/05/22 10:01: Crossmatch See Detail Micro: Microbiology 06/04/22 13:56 Tissue - Right Foot Gram Stain - Final 06/04/22 13:56 Tissue - Right Foot Wound Culture - Preliminary GNR lactose meat cutter apprentice Radiography Diagnostic Testing: Radiology Impression Foot X-Ray 06/04/22 14:11 IMPRESSION: Amputation of foot at the level of the proximal metatarsals. Electronically Signed: Deven Donnelly MD at 17:09 EST , Physical Exam Narrative General: Alert, Oriented x3, Cooperative, No apparent distress HEENT: Atraumatic, PERRLA, EOMI, Normocephalic Oral: Moist Mucosa Neck: Supple, No JVD Lungs: Clear to auscultation, Normal air movement, No rhonchi, No wheeze, No rales Cardiovascular: Regular rate, Regular Rhythm, Normal S1, Normal S2, No murmurs Abdomen: Soft, Non Tender, Non-Distended, No Hepato-splenomegaly Extremities: Dressing on her right foot clean dry and intact Skin: Postoperative site is dressed Musculoskeletal: No Tenderness to Palpation of Joints or Extremities Neurological: Cranial nerves II-XII grossly intact, Motor Exam 5/5 strength throughout, Sensory exam intact to light touch and pain Psych/Mental Status: Normal Affect, Appropriate Assessment & Plan Assessment/Plan (1) Gangrene of right foot: (2) Type 2 diabetes mellitus with diabetic polyneuropathy: PLAN: Plan 1. Dry gangrene of her right foot with necrotic third toe/peripheral artery disease/HTN/HLD/iron deficiency anemia ? She was transferred to a tertiary care center during her last admission for vascular repair of her femoral artery she says that this was done and she is developed better perfusion of her lower extremity ? She was told that she would have a transmetatarsal amputation today by podiat ry, will consult podiatry ? Continue with Vanco and Zosyn pending resection, wound cultures growing a gram-negative leatha, previously she grew Klebsiella which was essentially pansensitive she did also have a MRSA on the previous culture ? Hemoglobin dropped to 7.8 today given her peripheral artery disease we will transfuse 1 unit and continue with her iron supplementation ? Blood pressures are stable, continue with her home blood pressure medications ? Continue with Lipitor, can restart her Plavix 2. DM2/CKD 3a ? Continue with insulin ? We will make adjustments ? Accu-Cheks ACHS ? Renal function is at baseline we will continue to monitor 3. Anxiety/depression ? Stable ? Continue with her home medications DVT: SCDs Charges/Coding Visit Charges Inpatient E&M: 03066 Subs Hosp L2
[2022-06-05] MEDS: Insulin Glargine-YFGN 100 UNIT/ML Pen 40 UNIT SC ×2 (11:01→23:04)
[2022-06-05 11:51] LABS: Bedside Glucose 244 mg/dL (74-106)
--- NOTE | 2022-06-05 17:01 | CASEMGMT ---
Addendum entered by Yumiko Fragoso 06/05/22 18:12: Spoke with who states that he saw pt and she is agreeable to SNF. He saw pt after this RN CM. He states prefers she go to SNF. Updated SW and she will see pt yet. Updated PCU charge nurse. Original Note: RN CM in to pt room, pt present. Pt states she is active with [facility] SN and PT and would like to resume them upon dc. Pt denies any further homegoing needs. Referral sent to [facility] at this time. Green sheet on chart for [facility].
[2022-06-05] MEDS: 0.9% Saline Lock 10 ML Syringe IV ×2 (17:22→23:47)
[2022-06-05] MEDS: Morphine 2 MG/ML Syringe 3 MG IV (17:22)
[2022-06-05 18:21] LABS: Bedside Glucose 295 mg/dL (74-106)
--- NOTE | 2022-06-05 19:20 | PN_ITS ---
Subjective Subjective Patient seen resting in bed this afternoon with present. She is elevating the right lower extremity. Does admit to some postoperative pain today. She is voiding without difficulty. She is ready to eat. Denies any constitutional symptoms. Denies any further complaints. Objective Data Objective Data Vital Signs: Vital Signs Temp Pulse Resp BP Pulse Ox O2 Del Method O2 Flow Rate 98.3 F 88 16 116/42 L 98 Room Air 1 06/05/22 15:07 06/05/22 15:07 06/05/22 15:07 06/05/22 15:07 06/05/22 15:07 06/05/22 15:07 06/04/22 20:34 Oxygen Flow Rate (L/min) 1 Oxygen Delivery Method Room Air Weight: 51.4 kg Body Mass Index (BMI) 20.7 Intake & Output: Intake and Output for Last 24 Hours 06/03/22 06/04/22 06/05/22 23:59 23:59 23:59 Intake Total 125 / 125 2051.5 / 2051.5 1690 / 1690 Output Total 0 / 0 Balance 125 / 125 2051. / 2051.5 1690 / 1690 Medical Nutrition Assessment Dietitian: Malnutrition Criteria Met Start: 06/04/22 13:36 Freq: Status: Active Protocol: Document 06/04/22 13:36 RMA (Rec: 06/04/22 13:36 RMA [id number]) Nutrition Malnutrition Evidence of Malnutrition Exists Yes Malnutrition (severe): Acute Illness/Injury Evidenced By Suboptimal Energy Intake ( Severe),Weight Loss (Severe) Intake Problem Increased Nutrient Needs (specify) Etiology for protein related to increased demand for wound healing Signs/Symptoms as evidenced by nonhealing R DM foot wound Status Active Problem Clinical Problem Acute Disease or Injury Related Malnutrition Etiology Severe protein-calorie malnutrition in the context of acute illness related to inadequate oral intake Signs/Symptoms as evidenced by BMI 20.7, ~6% wt loss x 1 month, ~13% wt loss x 3 months and poor oral intake meeting less than 50% estimated nutrition needs x past 3 months Status Active Problem Recommendation Dietitian Recommendations/Changes Recommend advance diet post-op as tolerated to 1600 calorie/ consistent carbohydrate. Will add 120 ml strawberry glucerna shake TID w/ medpass. Will add Williams BID for wound healing. Additional dietary protein with meals as PO adequacy established with meals post-op . Lab / Micro Data Result Diagrams: 06/05/22 06:19 06/05/22 06:19 Labs: Laboratory Results - last 24 hr 06/04/22 21:56: POC Glucose 153 H 06/04/22 23:34: POC Glucose 161 H 06/05/22 05:30: POC Glucose 185 H 06/05/22 06:19: WBC 11.8 H, RBC 2.75 L, Hgb 7.8 L, Hct 24.5 L, MCV 89.1, MCH 28.4, MCHC 31.8 L, RDW Std Deviation 55.6 H, RDW Coeff of Melvina 17.2 H, Plt Count 240, MPV 9.5, Immature Gran % (Auto) 0.300, Neut % (Auto) 74.2 H, Lymph % (Auto) 13.2 L, [place] % (Auto) 10.4 H, Eos % (Auto) 1.2, Baso % (Auto) 0.7, Absolute Neuts (auto) 8.8 H, Absolute Lymphs (auto) 1.56, Nucleated RBC % 0 06/05/22 06:19: Sodium 134 L, Potassium 4.1, Chloride 107, Carbon Dioxide 20.0 L , Anion Gap 7, BUN 28 H, Creatinine 0.93, Estim Creat Clear Calc 42.61, Est GFR (MDRD) Af Amer 76, Est GFR (MDRD) Non-Af 63, BUN/Creatinine Ratio 30.2 H, Glucose 207 H, Calcium 9.0 06/05/22 10:01: Blood Type O POSITIVE, Antibody Screen NEGATIVE, Crossmatch See Detail 06/05/22 10:59: POC Glucose 244 H 06/05/22 16:16: POC Glucose 295 H Micro: Microbiology 06/04/22 13:56 Tissue - Right Foot Gram Stain - Final 06/04/22 13:56 Tissue - Right Foot Wound Culture - Preliminary GNR lactose quality improvement coordinator (rn) Physical Exam Const alert, oriented x3 and no apparent distress General Appearance: cooperative HEENT normocephalic Eyes General Eye: normal appearance of both eyes Neck General: normal visual inspection Lymph Lymphatic: no lymphadenopathy noted and no lymphedema noted Resp normal respiratory effort Cardio regular rate and regular rhythm Skin no rashes or lesions noted, skin turgor normal and no jaundice Wound Narrative: Transmetatarsal amputation noted with skin well coapted with sutures intact. Stump appears healthy. There is some postoperative edema about the distal forefoot at the amputation stump. 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 POD #1. Patient denies any pain in the calf. Patient does admit to some pain in the distal forefoot at the surgical site. I discussed with her the expectations of postoperative pain and reassured her of pain medication. Skin is well coapted with intact sutures at the distal amputation stump. Stump appears healthy. Dressings consisted of Betadine soaked Adaptic, 4 x 4 gauze, Kerlix. Encouraged continued diet with protein to aid healing. Encouraged continued elevation of the right lower extremity at all times of rest to control postoperative edema. Patient to remain nonweightbearing to right lower extremity at all times. May utilize a walker for assistance or wheelchair and remaining compliant. Discussed with her the plan to go to SNF for rehabilitation. Patient informs me that she will do what ever is required to get better and is willing to go. I discussed with social work who informs me that earlier in the day she stated that she would like to go home. I did discuss Dr. Grimaldo plan for SNF and that patient was on board with this decision. Social work will discuss again with patient with plans to find placement. I did discuss however if she decides to change her mind and is willing to go home Dr. Grimaldo is okay with this as long as therapy and nursing can continue to work with her at home. Medicine team following for medical management, they are greatly appreciated. Please do not hesitate to call for any questions or concerns Jr. Poncho Jasmine.P.M. [facility] [phone]
--- NOTE | 2022-06-05 19:40 | CASEMGMT ---
Social Work Note EDEN met with patient and patient's and introduced herself and role as [facility] SW. Patient was sleeping, agreeable to speak with SW. SW inquired about their thoughts towards discharge. Patient's reports he feels SNF is needed but is unsure if the patient is agreeable to SNF. SW inquired if he would like a SNF list for [facility] in network with patient's insurance, patient's agreed. SW provided patient's with list of SNF in network with patient's insurance in [facility]. Patient's reports he will review it with her tomorrow. EDEN/ RN CM to follow up on Tuesday to continue to discuss D/C plan. No other needs voiced at this time. Plan: SNF vs [facility]
[2022-06-05] MEDS: Atorvastatin Calcium 40 MG Tablet PO (23:06)
[2022-06-06] VITALS (8 sets, daily range): BP systolic 100–122; BP diastolic 40–74; PULSE 60–88; RESP 16–20; TEMP 20.1–36.9; O2SAT 92–96
[2022-06-06 00:02] LABS: Vancomycin, Trough Level 11.5 ug/mL (5.0-15.0)
--- NOTE | 2022-06-06 00:34 | PCM.RX.CS ---
Consult Pharmacy has been consulted to manage selected antiobiotic: Vancomycin Type of Consult: Follow-up Suspected Infection: Skin/Soft tissue Prior Doses of Antibiotics Received/Current Regimen: Medications Vancomycin HCl 1,500 mg/ (Sodium Chloride) 530 mls @ 250 mls/hr IV Q24H LEXIE Discontinued Medications Vancomycin HCl (Vancomycin) 1,000 mg in 200 mls @ 200 mls/hr IV Q24H LEXIE Last Admin: 06/05/22 00:46 Dose: Infused Labs: Sodium 134 mmol/L (136-145) L 06/05/22 06:19 Potassium 4.1 mmol/L (3.5-5.1) 06/05/22 06:19 Chloride 107 mmol/L (98-107) 06/05/22 06:19 Carbon Dioxide 20.0 mmol/L (21.0-32.0) L 06/05/22 06:19 Anion Gap 7 (5-15) 06/05/22 06:19 BUN 28 mg/dL (7-18) H 06/05/22 06:19 Creatinine 0.93 mg/dL (0.55-1.02) 06/05/22 06:19 Est GFR (MDRD) Af Amer 76 mL/min (>60) 06/05/22 06:19 Est GFR (MDRD) Non-Af 63 mL/min (>60) 06/05/22 06:19 BUN/Creatinine Ratio 30.2 RATIO (10-20) H 06/05/22 06:19 Glucose 207 mg/dL (74-106) H 06/05/22 06:19 Vancomycin Trough 11.5 ug/mL (5.0-15.0) 06/05/22 23:12 Microbiology: Microbiology 06/04/22 13:56 Tissue - Right Foot Gram Stain - Final 06/04/22 13:56 Tissue - Right Foot Wound Culture - Preliminary GNR lactose pellet post inspector Weight used for dosin.4 kg Estimated Creatinine Clearance: 43 Goal Trough: 15-20 mcg/mL Pharmacy Plan for Drug Dosing: Vancomycin trough level of 11.5 was below the target range of 15-20. Per dosing calculator, a new dose of 1500mg q24h should give an estimated trough of 17.1. Another level will be drawn prior to the third dose of the new regimen. Pharmacy Service will continue to monitor and adjust dosing as required. Follow-Up Labs: Trough Vancomycin Labs to be done on [date and time ordered]: 06/08/22 @0000
[2022-06-06 06:58] LABS: Absolute Lymphocyte Count 2.08 X10^3/uL (0.83-4.51); Absolute Neutrophil Count 8.5 X10^3/uL (2.0-7.7); Basophil# 0.04 X10^3/uL; Basophil% 0.3 % (0-1); Eosinophil# 0.22 X10^3/uL; Eosinophils% 1.8 % (0-5); Hematocrit 26.9 % (37-47); Hemoglobin 8.7 g/dL (12.0-15.0); Lymphocyte # 2.08 X10^3/ul (0.83-4.51); Lymphocyte % 17.3 % (19-41); Mean Corp Hgb Conc 32.3 g/dL (32-36); Mean Corpuscular Hgb 28.1 pg (27.0-32.0); Mean Corpuscular Volume 86.8 fL (81-99); Mean Platelet Vol. 9.8 fl (6.2-12.0); Monocyte# 1.16 X10^3/uL; Monocyte% 9.7 % (0-10); NRBC Flagged by Analyzer 0.2 % (0-5); Neutrophil # 8.46 X10^3/uL (2.7-7.7); Neutrophil % 70.5 % (47-70); Platelet Count 220 K/mm3 (150-450); RBC Distribution Width CV 18.2 % (11.6-14.6); RBC Distribution Width SD 57.8 fl (35.1-43.9)
[2022-06-06] MEDS: Insulin Lispro 100 UNIT/ML INSULN.PEN SC ×2 (06:58→10:17)
[2022-06-06] MEDS: Sucralfate 1 GM Tablet PO ×4 (06:58→20:29)
[2022-06-06] MEDS: Levothyroxine 75 MCG Tablet PO (06:58)
[2022-06-06 07:18] LABS: Anion Gap 6 (5-15); BUN 42 mg/dL (7-18); Chloride 105 mmol/L (98-107); EST Glomerular Filtration Rate 58 mL/min (>60); Est Glom Filt Rate - Afr Amer 70 mL/min (>60); Estimated Creatinine Clearance 39.63 ml/min; Glucose 248 mg/dL (74-106); Potassium 4.1 mmol/L (3.5-5.1); Sodium Level 134 mmol/L (136-145)
[2022-06-06 07:40] LABS: Bedside Glucose 232 mg/dL (74-106)
[2022-06-06] MEDS: Aspirin 81 MG TAB.CHEW PO (07:54)
[2022-06-06] MEDS: Glucerna Shake 120 ML LIQUID PO ×3 (07:54→16:27)
[2022-06-06] MEDS: Juven (unflavored) Packet 1 PACKET PO ×2 (07:54→16:27)
[2022-06-06] MEDS: Acetaminophen 325 MG Tablet 650 MG PO (07:55)
[2022-06-06] MEDS: Baclofen 10 MG Tablet PO ×2 (07:55→16:27)
--- NOTE | 2022-06-06 09:12 | PCM.PN.HOSP ---
Subjective Subjective Pain is better controlled with the morphine. She is unhappy about needing to go to a retirement but the thinks is for the best which I agree with Objective Data Objective Data Vital Signs: Vital Signs Temp Pulse Resp BP Pulse Ox O2 Del Method O2 Flow Rate 97 F L 80 16 122/74 H 95 Room Air 1 06/06/22 05:20 06/06/22 05:20 06/06/22 05:20 06/06/22 05:20 06/06/22 05:20 06/06/22 07:46 06/04/22 20:34 Oxygen Flow Rate (L/min) 1 Oxygen Delivery Method Room Air Weight: 113 lb 5.082 oz Body Mass Index (BMI) 20.7 Intake & Output: Intake and Output for Last 24 Hours 06/05/22 06/06/22 06/07/22 03:59 03:59 03:59 Intake Total 2037.5 / 2037.5 1440 / 1440 580 / 580 Output Total 0 / 0 Balance 2037.5 / 2037.5 1440 / 1440 580 / 580 Medical Nutrition Assessment Dietitian: Malnutrition Criteria Met Start: 06/04/22 13:36 Freq: Status: Active Protocol: Document 06/04/22 13:36 RMA (Rec: 06/04/22 13:36 RMA [id number]) Nutrition Malnutrition Evidence of Malnutrition Exists Yes Malnutrition (severe): Acute Illness/Injury Evidenced By Suboptimal Energy Intake ( Severe),Weight Loss (Severe) Intake Problem Increased Nutrient Needs (specify) Etiology for protein related to increased demand for wound healing Signs/Symptoms as evidenced by nonhealing R DM foot wound Status Active Problem Clinical Problem Acute Disease or Injury Related Malnutrition Etiology Severe protein-calorie malnutrition in the context of acute illness related to inadequate oral intake Signs/Symptoms as evidenced by BMI 20.7, ~6% wt loss x 1 month, ~13% wt loss x 3 months and poor oral intake meeting less than 50% estimated nutrition needs x past 3 months Status Active Problem Recommendation Dietitian Recommendations/Changes Recommend advance diet post-op as tolerated to 1600 calorie/ consistent carbohydrate. Will add 120 ml strawberry glucerna shake TID w/ medpass. Will add Williams BID for wound healing. Additional dietary protein with meals as PO adequacy established with meals post-op . Lab / Micro Data Result Diagrams: 06/06/22 06:22 06/06/22 06:22 Labs: Laboratory Results - last 24 hr 06/05/22 10:01: Blood Type O POSITIVE, Antibody Screen NEGATIVE, Crossmatch See Detail 06/05/22 10:59: POC Glucose 244 H 06/05/22 16:16: POC Glucose 295 H 06/05/22 23:12: Vancomycin Trough 11.5 06/06/22 06:22: WBC 12.0 H, RBC 3.10 L, Hgb 8.7 L, Hct 26.9 L, MCV 86.8, MCH 28.1, MCHC 32.3, RDW Std Deviation 57.8 H, RDW Coeff of Melvina 18.2 H, Plt Count 220, MPV 9.8, Immature Gran % (Auto) 0.400, Neut % (Auto) 70.5 H, Lymph % (Auto) 17.3 L, [place] % (Auto) 9.7, Eos % (Auto) 1.8, Baso % (Auto) 0.3, Absolute Neuts (auto) 8.5 H, Absolute Lymphs (auto) 2.08, Nucleated RBC % 0.2 06/06/22 06:22: Sodium 134 L, Potassium 4.1, Chloride 105, Carbon Dioxide 23.0, Anion Gap 6, BUN 42 H, Creatinine 1.00, Estim Creat Clear Calc 39.63, Est GFR (MDRD) Af Amer 70, Est GFR (MDRD) Non-Af 58 L, BUN/Creatinine Ratio 42.0 H, Glucose 248 H, Calcium 9.0 06/06/22 06:57: POC Glucose 232 H Micro: Microbiology 06/04/22 13:56 Tissue - Right Foot Gram Stain - Final 06/04/22 13:56 Tissue - Right Foot Wound Culture - Preliminary Klebsiella aerogenes Physical Exam Narrative General: Alert, Oriented x3, Cooperative, No apparent distress HEENT: Atraumatic, PERRLA, EOMI, Normocephalic Oral: Moist Mucosa Neck: Supple, No JVD Lungs: Clear to auscultation, Normal air movement, No rhonchi, No wheeze, No rales Cardiovascular: Regular rate, Regular Rhythm, Normal S1, Normal S2, No murmurs Abdomen: Soft, Non Tender, Non-Distended, No Hepato-splenomegaly Extremities: Dressing on her right foot clean dry and intact Skin: Postoperative site is dressed Musculoskeletal: No Tenderness to Palpation of Joints or Extremities Neurological: Cranial nerves II-XII grossly intact, Motor Exam 5/5 strength throughout, Sensory exam intact to light touch and pain Psych/Mental Status: Normal Affect, Appropriate Assessment & Plan Assessment/Plan (1) Gangrene of right foot: (2) Type 2 diabetes mellitus with diabetic polyneuropathy: PLAN: Plan 1. Dry gangrene of her right foot with necrotic third toe status post Anzemet of partial amputation on the right 06/04/2022/peripheral artery disease/HTN/HLD/iron deficiency anemia ? She was transferred to a tertiary care center during her last admission for vascular repair of her femoral artery she says that this was done and she is developed better perfusion of her lower extremity ? Appreciate podiatry's assistance ? Continue with Vanco and Lexie wound culture preliminarily with sensitive Klebsiella ? She was given a 1 unit of blood and hemoglobin is 8.7, will repeat in the morning ? Blood pressures are stable, continue with her home blood pressure medications ? Continue with Lipitor, can restart her Plavix 2. DM2/CKD 3a ? Continue with insulin ? We will make adjustments ? Accu-Cheks ACHS ? Renal function is at baseline we will continue to monitor 3. Anxiety/depression ? Stable ? Continue with her home medications DVT: SCDs Charges/Coding Visit Charges Inpatient E&M: 75353 Subs Hosp L2
[2022-06-06] MEDS: Metoprolol(XL)Succ 50 MG Tablet PO (10:13)
[2022-06-06] MEDS: Pregabalin 50 MG Capsule PO ×2 (10:14→20:28)
[2022-06-06] MEDS: Iron Polysaccharide Complex 150 MG CAPSULE PO (10:14)
[2022-06-06] MEDS: Pantoprazole Sodium 40 MG Tablet PO ×2 (10:14→20:30)
[2022-06-06] MEDS: Citalopram 20 MG Tablet PO (10:14)
[2022-06-06] MEDS: Insulin Glargine-YFGN 100 UNIT/ML Pen 45 UNIT SC (10:18)
[2022-06-06] MEDS: Clopidogrel Bisulfate 75 MG Tablet PO (10:22)
[2022-06-06 10:46] LABS: Bedside Glucose 176 mg/dL (74-106)
[2022-06-06 11:15] LABS: Bedside Glucose 326 mg/dL (74-106)
[2022-06-06] MEDS: 0.9% Normal Saline 1,000 ML 15 ML IV (14:00)
--- NOTE | 2022-06-06 14:42 | PN_ITS ---
Subjective Subjective Patient seen this a.m. resting in bed with right foot elevated. She states that her pain is better controlled today and improving. Denies any constitutional symptoms. Is voiding without difficulty. No further complaints. Objective Data Objective Data Vital Signs: Vital Signs Temp Pulse Resp BP Pulse Ox O2 Del Method O2 Flow Rate 97.9 F 77 16 121/49 H 96 Room Air 1 06/06/22 13:17 06/06/22 13:17 06/06/22 13:17 06/06/22 13:17 06/06/22 13:17 06/06/22 13:17 06/04/22 20:34 Oxygen Flow Rate (L/min) 1 Oxygen Delivery Method Room Air Weight: 51.4 kg Body Mass Index (BMI) 20.7 Intake & Output: Intake and Output for Last 24 Hours 06/04/22 06/05/22 06/06/22 23:59 23:59 23:59 Intake Total 2051.5 / 2051.5 1690 / 1690 1030.25 / 1030.25 Output Total 0 / 0 Balance 2051. / 2051. 1690 / 1690 1030.25 / 1030.25 Medical Nutrition Assessment Dietitian: Malnutrition Criteria Met Start: 06/04/22 13:36 Freq: Status: Active Protocol: Document 06/04/22 13:36 RMA (Rec: 06/04/22 13:36 RMA [id number]) Nutrition Malnutrition Evidence of Malnutrition Exists Yes Malnutrition (severe): Acute Illness/Injury Evidenced By Suboptimal Energy Intake ( Severe),Weight Loss (Severe) Intake Problem Increased Nutrient Needs (specify) Etiology for protein related to increased demand for wound healing Signs/Symptoms as evidenced by nonhealing R DM foot wound Status Active Problem Clinical Problem Acute Disease or Injury Related Malnutrition Etiology Severe protein-calorie malnutrition in the context of acute illness related to inadequate oral intake Signs/Symptoms as evidenced by BMI 20.7, ~6% wt loss x 1 month, ~13% wt loss x 3 months and poor oral intake meeting less than 50% estimated nutrition needs x past 3 months Status Active Problem Recommendation Dietitian Recommendations/Changes Recommend advance diet post-op as tolerated to 1600 calorie/ consistent carbohydrate. Will add 120 ml strawberry glucerna shake TID w/ medpass. Will add Williams BID for wound healing. Additional dietary protein with meals as PO adequacy established with meals post-op . Lab / Micro Data Result Diagrams: 06/06/22 06:22 06/06/22 06:22 Labs: Laboratory Results - last 24 hr 06/05/22 10:01: Crossmatch See Detail 06/05/22 16:16: POC Glucose 295 H 06/05/22 23:03: POC Glucose 326 H 06/05/22 23:12: Vancomycin Trough 11.5 06/06/22 06:22: WBC 12.0 H, RBC 3.10 L, Hgb 8.7 L, Hct 26.9 L, MCV 86.8, MCH 28. 1, MCHC 32.3, RDW Std Deviation 57.8 H, RDW Coeff of Melvina 18.2 H, Plt Count 220, MPV 9.8, Immature Gran % (Auto) 0.400, Neut % (Auto) 70.5 H, Lymph % (Auto) 17.3 L, [place] % (Auto) 9.7, Eos % (Auto) 1.8, Baso % (Auto) 0.3, Absolute Neuts (auto) 8.5 H, Absolute Lymphs (auto) 2.08, Nucleated RBC % 0.2 06/06/22 06:22: Sodium 134 L, Potassium 4.1, Chloride 105, Carbon Dioxide 23.0, Anion Gap 6, BUN 42 H, Creatinine 1.00, Estim Creat Clear Calc 39.63, Est GFR (MDRD) Af Amer 70, Est GFR (MDRD) Non-Af 58 L, BUN/Creatinine Ratio 42.0 H, Glucose 248 H, Calcium 9.0 06/06/22 06:57: POC Glucose 232 H 06/06/22 10:16: POC Glucose 176 H Micro: Microbiology 06/04/22 13:56 Tissue - Right Foot Gram Stain - Final 06/04/22 13:56 Tissue - Right Foot Wound Culture - Preliminary Klebsiella aerogenes 06/04/22 13:56 Tissue - Right Foot Anaerobic Culture - Preliminary Checking for anaerobes, further studies to follow. Physical Exam Const alert, oriented x3 and no apparent distress General Appearance: cooperative HEENT normocephalic Eyes General Eye: normal appearance of both eyes Neck General: normal visual inspection Lymph Lymphatic: no lymphadenopathy noted and no lymphedema noted Resp normal respiratory effort Cardio regular rate and regular rhythm Skin no rashes or lesions noted, skin turgor normal and no jaundice Wound Narrative: Transmetatarsal amputation noted with skin well coapted with sutures intact. Stump appears healthy. There is some postoperative edema about the distal forefoot at the amputation stump. 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 POD #2. Patient denies any pain in the calf. Patient does admit to some pain in the distal forefoot at the surgical site, this is improving versus yesterday. I discussed with her the expectations of postoperative pain and reassured her of pain medication. Skin is well coapted with intact sutures at the distal amputation stump. Stump appears healthy. Dressings consisted of Betadine soaked Adaptic, 4 x 4 gauze, ABD, Kerlix. Encouraged continued diet with protein to aid healing. Encouraged continued elevation of the right lower extremity at all times of rest to control postoperative edema. Patient to remain nonweightbearing to right lower extremity at all times. May utilize a walker for assistance or wheelchair and remaining compliant. Discussed with her the plan to go to SNF for rehabilitation. Social work is assisting with placement. is in agreement that she does need skilled rehab facility to build strength and aid in compliance in the nonweightbearing status. I discussed with him today that this is the best option going forward to aid in her recovery. Dr. Grimaldo will continue to follow. Medicine team following for medical management, they are greatly appreciated. Please do not hesitate to call for any questions or concerns Jr. Poncho Jasmine.P.M. [facility] [phone]
[2022-06-06 16:55] LABS: Bedside Glucose 138 mg/dL (74-106)
--- NOTE | 2022-06-06 19:20 | NURSING ---
Bedside report completed between this RN and George from previous shift. Pt noted with supper tray at bedside. Pt is not easily aroused at this time. pt will drink harjit from a cup with a straw, no swallowing difficulty noted. Vital signs and blood sugar obtained. pt noted to open eyes only a small amount and not focus on any object in pt room. when asked about spouse at bedside, pt does not speak just points to . Pt repositioned in bed, cold washcloth used to stimulate pt. Pt only states, I want to go home. when HOB elevated to straight 90 degree position, Pt states, my back hurts. pt then begins to open her eyes and look at George ADEN. pt noted to call for [facility]SC shortly after awaiting. 1950- Pt is sitting in a supine position, spouse is feeding pt salad, pt is noted to eat without difficulty. pt and spouse deny needs, bed alarm on, call light within reach will monitor.
[2022-06-06] MEDS: Atorvastatin Calcium 40 MG Tablet PO (20:30)
[2022-06-06 20:47] LABS: Bedside Glucose 157 mg/dL (74-106)
[2022-06-07] VITALS (8 sets, daily range): BP systolic 99–145; BP diastolic 45–78; PULSE 63–78; RESP 18–20; TEMP 36.4–36.9; O2SAT 95–100
[2022-06-07] MEDS: Sucralfate 1 GM Tablet PO ×4 (05:48→22:00)
[2022-06-07] MEDS: Levothyroxine 75 MCG Tablet PO (05:48)
--- NOTE | 2022-06-07 07:39 | PCM.PROGNOTE ---
Subjective Subjective Patient was seen this morning for follow up on foot TMA. She is resting in bed, no new complaints. No fevers. She is refusing nursing facility placement, she relates her will care for her. Objective Data Objective Data Vital Signs: Vital Signs Temp Pulse Resp BP Pulse Ox O2 Del Method O2 Flow Rate 97.5 F L 78 20 H 99/78 96 Room Air 1 06/07/22 05:36 06/07/22 05:36 06/07/22 05:36 06/07/22 05:36 06/07/22 05:36 06/07/22 05:36 06/04/22 20:34 Oxygen Flow Rate (L/min) 1 Oxygen Delivery Method Room Air Weight: 51.4 kg Body Mass Index (BMI) 20.7 Intake & Output: Intake and Output for Last 24 Hours 06/05/22 06/06/22 06/07/22 23:59 23:59 23:59 Intake Total 1690 / 1690 1390.25 / 1490.25 800 / 800 Balance 1690 / 1690 1390.25 / 1490.25 800 / 800 Medical Nutrition Assessment Dietitian: Malnutrition Criteria Met Start: 06/04/22 13:36 Freq: Status: Active Protocol: Document 06/04/22 13:36 RMA (Rec: 06/04/22 13:36 RMA [id number]) Nutrition Malnutrition Evidence of Malnutrition Exists Yes Malnutrition (severe): Acute Illness/Injury Evidenced By Suboptimal Energy Intake ( Severe),Weight Loss (Severe) Intake Problem Increased Nutrient Needs (specify) Etiology for protein related to increased demand for wound healing Signs/Symptoms as evidenced by nonhealing R DM foot wound Status Active Problem Clinical Problem Acute Disease or Injury Related Malnutrition Etiology Severe protein-calorie malnutrition in the context of acute illness related to inadequate oral intake Signs/Symptoms as evidenced by BMI 20.7, ~6% wt loss x 1 month, ~13% wt loss x 3 months and poor oral intake meeting less than 50% estimated nutrition needs x past 3 months Status Active Problem Recommendation Dietitian Recommendations/Changes Recommend advance diet post-op as tolerated to 1600 calorie/ consistent carbohydrate. Will add 120 ml strawberry glucerna shake TID w/ medpass. Will add Williams BID for wound healing. Additional dietary protein with meals as PO adequacy established with meals post-op . Lab / Micro Data Result Diagrams: 06/06/22 06:22 06/06/22 06:22 Labs: Laboratory Results - last 24 hr 06/05/22 23:03: POC Glucose 326 H 06/06/22 06:57: POC Glucose 232 H 06/06/22 10:16: POC Glucose 176 H 06/06/22 16:25: POC Glucose 138 H 06/06/22 19:17: POC Glucose 157 H Micro: Microbiology 06/04/22 13:56 Tissue - Right Foot Gram Stain - Final 06/04/22 13:56 Tissue - Right Foot Wound Culture - Preliminary Klebsiella aerogenes 06/04/22 13:56 Tissue - Right Foot Anaerobic Culture - Preliminary Checking for anaerobes, further studies to follow. Physical Exam Const alert, oriented x3 and no apparent distress General Appearance: cooperative Skin Wound Narrative: Transmetatarsal amputation noted with skin well coapted with sutures intact. Stump appears healthy. There is some postoperative edema about the distal forefoot at the amputation stump. 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 Foot stable and healing appropriately at this time. Patient denies any pain in the calf. She relates to no pain. Skin is well coapted with intact sutures at the distal amputation stump. Stump appears healthy. Dressings consisted of Betadine soaked Adaptic, 4 x 4 gauze, ABD, Kerlix. Encouraged continued diet with protein to aid healing. Encouraged continued elevation of the right lower extremity at all times of rest to control postoperative edema. Patient to remain nonweightbearing to right lower extremity at all times. May utilize a walker for assistance or wheelchair and remaining compliant. Discussed with her the plan to go to SNF for rehabilitation. Social work is assisting with placement. is in agreement that she does need skilled rehab facility to build strength and aid in compliance in the nonweightbearing status. I discussed with her today that this is the best option going forward to aid in her recovery, however patient is refusing. She relates she is willing to risk higher chance of nonhealing by going home. Medicine team following for medical management, they are greatly appreciated. Please do not hesitate to call for any questions or concerns
--- NOTE | 2022-06-07 08:15 | PCM.PN.HOSP ---
Reason for Visit Reason for Visit: Diagnoses Type 2 diabetes mellitus with diabetic polyneuropathy (06/03/22) Peripheral vascular disease, unspecified (06/03/22) Gangrene, not elsewhere classified (06/03/22) Acquired absence of right foot (06/03/22) Subjective Subjective Follow-up after right transmetatarsal amputation of with history of nonhealing ulcer of right foot complicated with osteomyelitis and gangrene Objective Data Objective Data Vital Signs: Vital Signs Temp Pulse Resp BP Pulse Ox O2 Del Method O2 Flow Rate 97.5 F L 78 20 H 99/78 96 Room Air 1 06/07/22 05:36 06/07/22 05:36 06/07/22 05:36 06/07/22 05:36 06/07/22 05:36 06/07/22 05:36 06/04/22 20:34 Oxygen Flow Rate (L/min) 1 Oxygen Delivery Method Room Air Weight: 113 lb 5.082 oz Body Mass Index (BMI) 20.7 Intake & Output: Intake and Output for Last 24 Hours 06/05/22 06/06/22 06/07/22 23:59 23:59 23:59 Intake Total 1690 / 1690 1390.25 / 1490.25 800 / 800 Balance 1690 / 1690 1390.25 / 1490.25 800 / 800 Medical Nutrition Assessment Dietitian: Malnutrition Criteria Met Start: 06/04/22 13:36 Freq: Status: Active Protocol: Document 06/04/22 13:36 RMA (Rec: 06/04/22 13:36 RMA [id number]) Nutrition Malnutrition Evidence of Malnutrition Exists Yes Malnutrition (severe): Acute Illness/Injury Evidenced By Suboptimal Energy Intake ( Severe),Weight Loss (Severe) Intake Problem Increased Nutrient Needs (specify) Etiology for protein related to increased demand for wound healing Signs/Symptoms as evidenced by nonhealing R DM foot wound Status Active Problem Clinical Problem Acute Disease or Injury Related Malnutrition Etiology Severe protein-calorie malnutrition in the context of acute illness related to inadequate oral intake Signs/Symptoms as evidenced by BMI 20.7, ~6% wt loss x 1 month, ~13% wt loss x 3 months and poor oral intake meeting less than 50% estimated nutrition needs x past 3 months Status Active Problem Recommendation Dietitian Recommendations/Changes Recommend advance diet post-op as tolerated to 1600 calorie/ consistent carbohydrate. Will add 120 ml strawberry glucerna shake TID w/ medpass. Will add Williams BID for wound healing. Additional dietary protein with meals as PO adequacy established with meals post-op . Lab / Micro Data Result Diagrams: 06/06/22 06:22 06/06/22 06:22 Labs: Laboratory Results - last 24 hr 06/05/22 23:03: POC Glucose 326 H 06/06/22 10:16: POC Glucose 176 H 06/06/22 16:25: POC Glucose 138 H 06/06/22 19:17: POC Glucose 157 H Micro: Microbiology 06/04/22 13:56 Tissue - Right Foot Gram Stain - Final 06/04/22 13:56 Tissue - Right Foot Wound Culture - Preliminary Klebsiella aerogenes 06/04/22 13:56 Tissue - Right Foot Anaerobic Culture - Preliminary Checking for anaerobes, further studies to follow. Physical Exam Narrative Seen and examined. Discussed with patient's near the bedside. Patient is moving her bowel. Denies burning micturition. Physical exam General: Alert, Oriented x3, Cooperative HEENT: Atraumatic, PERRLA, EOMI, Normocephalic Oral: No Gingival or Mucosal Lesions/ Ulcerations Neck: Supple, No JVD, Negative Carotid Bruits Lungs: Air entry diminished in bilateral lung bases. No crepitation/rhonchi Cardiovascular: Regular rate, Regular Rhythm, Normal S1, Normal S2, No murmurs Abdomen: Bowel Sounds Present, Soft, Non Tender, Non-Distended : No renal angle tenderness. No suprapubic tenderness. Extremities: No edema, Capillary Refill Less than 3 Seconds Skin: Right foot osteomyelitis complicated with gangrene status post TMA. Dressing is dry. Musculoskeletal: No Tenderness to Palpation of Joints or Extremities. ROM full on left foot and knee. Neurological: Cranial nerves II-XII grossly intact, DTR 2+/4 and Symmetrical, Neuro grossly intact Psych/Mental Status: Flat affect. Assessment & Plan Assessment/Plan (1) Gangrene of right foot: (2) Type 2 diabetes mellitus with diabetic polyneuropathy: PLAN: Plan 1. Dry gangrene of her right foot with necrotic third toe status post partial amputation on the right 06/04/2022 with history of peripheral arterial disease: During previous admission patient was transferred tertiary care center for vascular repair of femoral artery which was done and patient has better perfusion of lower extremity. Patient had right transmetatarsal amputation. On IV vancomycin and Zosyn, prelim wound culture shows Klebsiella aerogenes. Prelim anaerobic culture pending. ID is consulted. Total nonweightbearing advised on right foot but the patient does not agree to SNF. Her wants her to go to long-term as he cannot take care of her. 2. Acute iron deficiency anemia: Patient hemoglobin dropped to 7.8 g. Had 1 unit of PRBC transfusion. Her baseline hemoglobin is around 12 g. 3. Hypertension and dyslipidemia: Patient blood pressure is on lower side. Continue antihypertensive medication with holding parameter. On Lipitor. Plavix restarted 4. Diabetes mellitus type 2 with CKD stage III, diabetic nephropathy: Continue insulin. Accu-Cheks and coverage Humalog sliding scale. 5. Anxiety/depression No acute issues ? Continue with her home medications DVT: SCDs Charges/Coding Visit Charges Inpatient E&M: 06923 Subs Hosp L2
[2022-06-07] MEDS: 0.9% Saline Lock 10 ML Syringe IV ×2 (08:25→15:30)
[2022-06-07] MEDS: Juven (unflavored) Packet 1 PACKET PO ×2 (08:25→16:18)
[2022-06-07] MEDS: Pregabalin 50 MG Capsule PO ×2 (08:25→22:09)
[2022-06-07] MEDS: Lisinopril 10 MG Tablet PO (08:26)
[2022-06-07] MEDS: Pantoprazole Sodium 40 MG Tablet PO ×2 (08:26→22:02)
[2022-06-07] MEDS: Iron Polysaccharide Complex 150 MG CAPSULE PO (08:26)
[2022-06-07] MEDS: Clopidogrel Bisulfate 75 MG Tablet PO (08:26)
[2022-06-07] MEDS: Glucerna Shake 120 ML LIQUID PO ×2 (08:26→11:37)
[2022-06-07] MEDS: Metoprolol(XL)Succ 50 MG Tablet PO (08:26)
[2022-06-07] MEDS: Citalopram 20 MG Tablet PO (08:26)
[2022-06-07] MEDS: Baclofen 10 MG Tablet PO ×2 (08:26→16:19)
[2022-06-07] MEDS: Aspirin 81 MG TAB.CHEW PO (08:26)
[2022-06-07] MEDS: Insulin Glargine-YFGN 100 UNIT/ML Pen 45 UNIT SC (08:27)
--- NOTE | 2022-06-07 08:34 | WOUNDNOTE ---
wound photo: right foot
--- NOTE | 2022-06-07 08:34 | WOUNDNOTE ---
wound photo: right foot
--- NOTE | 2022-06-07 08:36 | WOUNDNOTE ---
wound photo: right foot
[2022-06-07 09:50] LABS: Bedside Glucose 133 mg/dL (74-106)
--- NOTE | 2022-06-07 10:19 | CASEMGMT ---
SW spoke with patient and after reviewing chart and noting SNF is being recommended. They were given a list of SNF's on Tuesday. SW introduced self and role at [facility]. Their first choice is [facility]. They did not have a second choice. Patient then asked SW what facility SW is talking about. SW explained it would be a facility she would go to for short term rehab and allow her foot to heal. Patient said she would like to go home. SW explained to patient that the physician and therapy are recommending she go somewhere for rehab and that she would not be safe for home at this time. EDEN sent a referral to [facility] via [employer]. Mere Wren MSW CHRISTOPHER
--- NOTE | 2022-06-07 13:11 | CASEMGMT ---
[facility] accepted patient. SW reviewed therapy notes. Patient is not able to maintain non weight bearing status on her right lower extremity. Patient has a step to get into her home. Patient's is not able to assist patient with the current amount of care patient requires. SW went to patient's room. SW notified patient and her that [facility] can take her. Patient said she is going home. SW asked patient how she is going to get in her home. Patient just kept saying she will do it, without any specifics on how. SW told patient she is not to put any weight on that right foot. SW also explained that she is not able to do this when she works with therapy. SW asked how she will be able to do this at home. Patient again said she will do it. SW tried to get patient to elaborate on her plan, but she would not. Patient's tried to tell patient he cannot help her and she need to go somewhere. Patient told her she is going home ant that's that. At one point patient said she would use a wheelchair to get up the step into her home. SW asked patient who was going to push her up the step. Patient said she will do it herself. SW told patient she really needs to re-consider her plan. She is not safe to go home. She cannot manage her non weight bearing status which is going to jeopardize the healing of her foot. SW told patient she is being very unrealistic in her thoughts on going home. SW strongly recommended she re-think her plan. SW will check back. Mere WHITE
[2022-06-07 13:45] LABS: Bedside Glucose 149 mg/dL (74-106)
[2022-06-07 16:50] LABS: Bedside Glucose 145 mg/dL (74-106)
[2022-06-07] MEDS: Atorvastatin Calcium 40 MG Tablet PO (22:02)
[2022-06-07] MEDS: Insulin Lispro 100 UNIT/ML INSULN.PEN SC (22:03)
[2022-06-08] VITALS (7 sets, daily range): BP systolic 118–141; BP diastolic 43–55; PULSE 56–66; RESP 16–20; TEMP 36.3–36.7; O2SAT 96–100
[2022-06-08 00:20] LABS: Bedside Glucose 206 mg/dL (74-106)
[2022-06-08 00:42] LABS: Vancomycin, Trough Level 17.2 ug/mL (5.0-15.0)
--- NOTE | 2022-06-08 01:00 | PCM.RX.CS ---
Consult Pharmacy has been consulted to manage selected antiobiotic: Vancomycin Type of Consult: Follow-up Suspected Infection: Skin/Soft tissue Prior Doses of Antibiotics Received/Current Regimen: Medications Vancomycin HCl 1,500 mg/ (Sodium Chloride) 530 mls @ 250 mls/hr IV Q24H LEXIE Last Admin: 06/07/22 03:03 Dose: Infused Labs: Sodium 134 mmol/L (136-145) L 06/06/22 06:22 Potassium 4.1 mmol/L (3.5-5.1) 06/06/22 06:22 Chloride 105 mmol/L (98-107) 06/06/22 06:22 Carbon Dioxide 23.0 mmol/L (21.0-32.0) 06/06/22 06:22 Anion Gap 6 (5-15) 06/06/22 06:22 BUN 42 mg/dL (7-18) H 06/06/22 06:22 Creatinine 1.00 mg/dL (0.55-1.02) 06/06/22 06:22 Est GFR (MDRD) Af Amer 70 mL/min (>60) 06/06/22 06:22 Est GFR (MDRD) Non-Af 58 mL/min (>60) L 06/06/22 06:22 BUN/Creatinine Ratio 42.0 RATIO (10-20) H 06/06/22 06:22 Glucose 248 mg/dL (74-106) H 06/06/22 06:22 Vancomycin Trough 17.2 ug/mL (5.0-15.0) H 06/08/22 00:10 Microbiology: Microbiology 06/04/22 13:56 Tissue - Right Foot Gram Stain - Final 06/04/22 13:56 Tissue - Right Foot Wound Culture - Preliminary Klebsiella aerogenes 06/04/22 13:56 Tissue - Right Foot Anaerobic Culture - Preliminary Checking for anaerobes, further studies to follow. Weight used for dosin.4 kg Estimated Creatinine Clearance: 40 Goal Trough: 15-20 mcg/mL Pharmacy Plan for Drug Dosing: Vancomycin trough level, drawn 23 hours post-dose, was 17.2. This is within the target range of 15-20. Will continue dosing at 1500mg q24hrs, and draw another trough in two days. Pharmacy Service will continue to monitor and adjust dosing as required. Follow-Up Labs: Trough Vancomycin Labs to be done on [date and time ordered]: 06/10/22 @0000
[2022-06-08] MEDS: Levothyroxine 75 MCG Tablet PO (05:33)
[2022-06-08] MEDS: Sucralfate 1 GM Tablet PO ×3 (05:33→15:17)
[2022-06-08 06:21] LABS: Absolute Lymphocyte Count 2.34 X10^3/uL (0.83-4.51); Absolute Neutrophil Count 6.3 X10^3/uL (2.0-7.7); Basophil# 0.04 X10^3/uL; Basophil% 0.4 % (0-1); Eosinophil# 0.27 X10^3/uL; Eosinophils% 2.7 % (0-5); Hematocrit 26.8 % (37-47); Hemoglobin 8.2 g/dL (12.0-15.0); Lymphocyte # 2.34 X10^3/ul (0.83-4.51); Lymphocyte % 23.5 % (19-41); Mean Corp Hgb Conc 30.6 g/dL (32-36); Mean Corpuscular Hgb 27.6 pg (27.0-32.0); Mean Corpuscular Volume 90.2 fL (81-99); Mean Platelet Vol. 10.1 fl (6.2-12.0); Monocyte# 0.99 X10^3/uL; Monocyte% 9.9 % (0-10); NRBC Flagged by Analyzer 0 % (0-5); Neutrophil # 6.28 X10^3/uL (2.7-7.7); Platelet Count 253 K/mm3 (150-450); RBC Distribution Width CV 18.1 % (11.6-14.6); RBC Distribution Width SD 59.7 fl (35.1-43.9); Red Blood Count 2.97 M/mm3 (4.2-5.4)
[2022-06-08 06:52] LABS: Anion Gap 6 (5-15); BUN 36 mg/dL (7-18); BUN/Creat Ratio 58.5 RATIO (10-20); Calcium,Total 9.1 mg/dL (8.5-10.1); Chloride 116 mmol/L (98-107); Creatinine, Serum 0.62 mg/dL (0.55-1.02); EST Glomerular Filtration Rate 101 mL/min (>60); Est Glom Filt Rate - Afr Amer 122 mL/min (>60); Estimated Creatinine Clearance 39.63 ml/min; Glucose 109 mg/dL (74-106); Potassium 3.2 mmol/L (3.5-5.1); Sodium Level 143 mmol/L (136-145)
--- NOTE | 2022-06-08 07:06 | PN_ITS ---
Subjective Subjective Patient was seen this morning for follow up on right foot. She relates she feels good. She is resting in bed, no new complaints. She does seem to be open to possibly going to nursing facility after discussing with her today. Objective Data Objective Data Vital Signs: Vital Signs Temp Pulse Resp BP Pulse Ox O2 Del Method O2 Flow Rate 97.4 F L 56 L 18 141/45 H 98 Room Air 1 06/08/22 05:29 06/08/22 05:29 06/08/22 05:29 06/08/22 05:29 06/08/22 05:29 06/08/22 05:29 06/04/22 20:34 Oxygen Flow Rate (L/min) 1 Oxygen Delivery Method Room Air Weight: 51.4 kg Body Mass Index (BMI) 20.7 Intake & Output: Intake and Output for Last 24 Hours 06/06/22 06/07/22 06/08/22 23:59 23:59 23:59 Intake Total 1390.25 / 1490.25 2310 / 2310 640 / 640 Balance 1390.25 / 1490.25 2310 / 2310 640 / 640 Medical Nutrition Assessment Dietitian: Malnutrition Criteria Met Start: 06/04/22 13:36 Freq: Status: Active Protocol: Document 06/07/22 14:51 RMA (Rec: 06/07/22 14:51 RMA [id number]) Nutrition Malnutrition Evidence of Malnutrition Exists Yes Malnutrition (severe): Acute Illness/Injury Evidenced By Suboptimal Energy Intake ( Severe),Weight Loss (Severe) Intake Problem Increased Nutrient Needs (specify) Etiology for protein related to increased demand for wound healing Signs/Symptoms as evidenced by nonhealing R DM foot wound Status Active Problem Clinical Problem Acute Disease or Injury Related Malnutrition Etiology Severe protein-calorie malnutrition in the context of acute illness related to inadequate oral intake Signs/Symptoms as evidenced by BMI 20.7, ~6% wt loss x 1 month, ~13% wt loss x 3 months and poor oral intake meeting less than 50% estimated nutrition needs x past 3 months Status Active Problem Recommendation Dietitian Recommendations/Changes Will change diet to 1600 calorie/consistent carbohydrate. Will continue 120 ml strawberry glucerna shake TID w/ medpass. Will continue Williams BID for wound healing. Will add 1 oz extra meat/ protein with meals. Lab / Micro Data Result Diagrams: 06/08/22 05:33 06/08/22 05:33 Labs: Laboratory Results - last 24 hr 06/07/22 08:13: POC Glucose 133 H 06/07/22 10:54: POC Glucose 149 H 06/07/22 16:15: POC Glucose 145 H 06/07/22 21:59: POC Glucose 206 H 06/08/22 00:10: Vancomycin Trough 17.2 H 06/08/22 05:33: WBC 10.0, RBC 2.97 L, Hgb 8.2 L, Hct 26.8 L, MCV 90.2, MCH 27.6, MCHC 30.6 L D, RDW Std Deviation 59.7 H, RDW Coeff of Melvina 18.1 H, Plt Count 253, MPV 10.1, Immature Gran % (Auto) 0.500, Neut % (Auto) 63.0, Lymph % (Auto) 23.5, [place] % (Auto) 9.9, Eos % (Auto) 2.7, Baso % (Auto) 0.4, Absolute Neuts (auto) 6.3, Absolute Lymphs (auto) 2.34, Nucleated RBC % 0 06/08/22 05:33: Sodium 143, Potassium 3.2 L, Chloride 116 H, Carbon Dioxide 21.0, Anion Gap 6, BUN 36 H, Creatinine 0.62, Estim Creat Clear Calc 39.63, Est GFR (MDRD) Af Amer 122, Est GFR (MDRD) Non-Af 101, BUN/Creatinine Ratio 58.5 H, Glucose 109 H, Calcium 9.1 Micro: Microbiology 06/04/22 13:56 Tissue - Right Foot Gram Stain - Final 06/04/22 13:56 Tissue - Right Foot Wound Culture - Final Klebsiella aerogenes Vancomycin Resist. E. faecium 06/04/22 13:56 Tissue - Right Foot Anaerobic Culture - Preliminary Checking for anaerobes, further studies to follow. Physical Exam Const alert, oriented x3 and no apparent distress General Appearance: cooperative Skin Wound Narrative: Transmetatarsal amputation noted with skin well coapted with sutures intact. Stump appears healthy. There is some postoperative edema about the distal forefoot at the amputation stump. 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 Patient is s/p transmetatarsal amputation of the [facility] foot to treat gangrene. Foot stable and healing appropriately at this time. Patient denies any pain in the calf. She relates to no pain. Skin is well coapted with intact sutures at the distal amputation stump. Stump appears healthy. Dressings consisted of Betadine soaked Adaptic, 4 x 4 gauze, ABD, Kerlix. Encouraged continued diet with protein to aid healing. Encouraged continued elevation of the right lower extremity at all times of rest to control postoperative edema. Patient to remain nonweightbearing to right lower extremity at all times. May utilize a walker for assistance or wheelchair and remaining compliant. Discussed with her the plan to go to SNF for rehabilitation. Social work is assisting with placement. is in agreement that she does need skilled rehab facility to build strength and aid in compliance in the nonweightbearing status. Again discussed with her today that this is the best option going forward to aid in her recovery, however patient is refusing, but she does seem to be open to possibly going to nursing facility after discussing with her today. She relates she is willing to risk higher chance of nonhealing by going home. Medicine team following for medical management, they are greatly appreciated. Please do not hesitate to call for any questions or concerns
--- NOTE | 2022-06-08 09:01 | PCM.TXEXTCAR ---
Diet Diet Order/Speech Therapy: 06/07/22 14:52 Diet: Consistent Carb - Calorie Controlled Food consistency:: Regular Liquid Consistency:: Regular/Thin Diet Comments: extra 1 oz meat/protein Q meal How many daily calories?: 1600 calorie Routine Orders/Code Status Code Status: DNRCC-A Wound(s) right foot: Wound Type: surgical incision s/p TMA Dressing Change: betadine/Adaptic Therapies Weight Bearing: Weight bearing as tolerated Extremity Affected:: Bilateral Lower Physical Therapy: Eval and Treat Occupational Therapy: Eval and Treat Speech Therapy: Eval and Treat Problem/Diagnosis (1) Gangrene of right foot: Status: Acute Code(s): I96 - Gangrene, not elsewhere classified (2) 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 Dry gangrene of her right foot with necrotic third toe status post partial amputation on the right 06/04/2022 with history of peripheral arterial disease: During previous admission patient was transferred tertiary care center for vascular repair of femoral artery which was done and patient has better perfusion of lower extremity. Patient had right transmetatarsal amputation. On IV vancomycin and Zosyn, prelim wound culture shows Klebsiella aerogenes. Prelim anaerobic culture pending. ID is consulted. Total nonweightbearing advised on right foot but the patient does not agree to SNF. Her wants her to go to [facility] as he cannot take care of her. 2. Acute iron deficiency anemia: Patient hemoglobin dropped to 7.8 g. Had 1 unit of PRBC transfusion. Her baseline hemoglobin is around 12 g. 3. Hypertension and dyslipidemia: Patient blood pressure is on lower side. Continue antihypertensive medication with holding parameter. On Lipitor. Plavix restarted 4. Diabetes mellitus type 2 with CKD stage III, diabetic nephropathy: Continue insulin. Accu-Cheks and coverage Humalog sliding scale. 5. Anxiety/depression No acute issues ? Continue with her home medications DVT: SCDs Allergies/Procedures Done in Hospital Allergies diphenhydramine [From Benadryl] Allergy (Verified 06/03/22 16:26) Swelling Type of Care/Length of Stay Estimated LOS: Convalescent Care Less Than 30 days Type of Care Needed: Skilled Rehab Potential: Good Prognosis: Good Additional Orders/Day of Discharge Day of Discharge: 06/08/22 Dietary and Speech Recommendations Dietitian Recommendations/Changes: Will change diet to 1600 calorie/consistent carbohydrate. Will continue 120 ml strawberry glucerna shake TID w/ medpass. Will continue Williams BID for wound healing. Will add 1 oz extra meat/protein with meals. Discharge Plan Admission Admit Date/Time: 06/03/22 20:08 Primary Reason for Your Visit: Diabetic foot ulcer. Right metatarsal amputation Attending Provider: Kaleb Hawkins Primary Care Provider: Alfonso Carlson Chi Consulting Providers: Kamron Ang ; Yazan Grimaldo ; Dean Cleaning ; Salomón Blanchard Discharge Orders/Prescriptions Prescriptions: New linezolid 600 mg Tablet 600 mg PO BID 7 Days Qty: 14 0RF cefdinir 300 mg capsule 300 mg PO Q12H 5 Days Qty: 10 0RF insulin lispro [Humalog KwikPen Insulin] 100 unit/mL Insulin Pen See Protocol subcut ACHS Qty: 0 0RF Protocol: 4. Sliding Scale Insulin High-Med Dosing Condition: 150-199 mg/dl = 2 units Condition: 200-259 mg/dl = 4 units Condition: 260-324 mg/dl = 6 units Condition: 325-374 mg/dl = 8 units Condition: 375-409 mg/dl = 10 units Condition: 410-449 mg/dl = 11 units Condition: Greater than 449 call physician Protocol Text: - Use for Total Daily Dose of Insulin 56-80 units - Patient who are insulin resistant or septic HIGH MEDIUM DOSING ALGORITHM sucralfate 1 gram Tablet 1 g PO 1HR_ACHS 30 Days Qty: 0 0RF Continued lisinopril 10 mg tablet 10 mg PO DAILY omeprazole 40 mg capsule,delayed release(DR/EC) 40 mg PO BID Qty: 60 2RF atorvastatin 40 mg tablet 40 mg PO QHS Label Comments: TAKE 1 TABLET BY MOUTH ONCE DAILY AT BEDTIME metoprolol succinate 50 mg tablet extended release 24 hr 50 mg PO DAILY Label Comments: TAKE 1 TABLET BY MOUTH ONCE DAILY polysaccharide iron complex [iFerex 150] 150 mg iron capsule 150 mg PO DAILY Label Comments: TAKE 1 CAPSULE BY MOUTH ONCE DAILY acetaminophen 500 mg tablet 500 - 1,000 mg PO Q6H PRN (Reason: Pain) Label Comments: TAKE 2 TABLETS BY MOUTH EVERY 8 HOURS FOR 15 DAYS levothyroxine 75 mcg tablet 75 mcg PO DAILY Label Comments: TAKE 1 TABLET BY MOUTH ONCE DAILY citalopram 20 mg tablet 20 mg PO DAILY Label Comments: TAKE 1 TABLET BY MOUTH ONCE DAILY ascorbic acid (vitamin C) [Vitamin C] 500 mg tablet 500 mg PO DAILY Label Comments: TAKE 1 TABLET BY MOUTH ONCE DAILY baclofen 10 mg tablet 10 mg PO BID Label Comments: TAKE 1 TABLET BY MOUTH TWICE DAILY NEEDED FOR BACK SPASM aspirin 81 mg tablet,chewable 81 mg PO DAILY Label Comments: CHEW AND SWALLOW 1 TABLET BY MOUTH ONCE DAILY oxycodone 5 mg tablet 5 mg PO BID Label Comments: TAKE 1 TABLET BY MOUTH TWICE DAILY NEEDED pregabalin 50 mg capsule 50 mg PO BID Label Comments: TAKE 1 CAPSULE BY MOUTH TWICE DAILY clopidogrel [Plavix] 75 mg tablet 75 mg PO DAILY Qty: 90 0RF Label Comments: STOP 1 DAY PRIOR TO OR Changed insulin degludec [Tresiba FlexTouch U-200] 200 unit/mL (3 mL) insulin pen 50 unit SUBCUT BID Qty: 9 2RF Referrals / Follow Up: Yazan Grimaldo DPM [Med Staff - Active Staff] - Within 1 Week (Follow-up in wound center in 1 week.) Salomón Blanchard MD [Med Staff - Active Staff] - Within 1 Month (As needed.) Alfonso Carlson Chi, MD [Primary Care Provider] - Disposition Disposition (needs filled in before D/C Order can be placed): Longterm Facility
--- NOTE | 2022-06-08 09:03 | CASEMGMT ---
SW went to patient's room prior to her arriving. SW sat down re-introduced self and role at [facility]. SW asked patient if she could help SW understand her reservations about going to a shelter facility short term. Patient expressed she doesn't think she needs to. Patient said she is more comfortable at home, knows where things are etc. SW appreciated her sharing. SW attempted to explain why physician, therapy, SW, and patient's feel patient needs to go to SNF. SW explained that patient is not able to maintain non weight bearing status which is not good for the healing of her foot. It also puts her at risk for losing more of her foot/leg. SW explained she will need to go to follow up appointments and her is not able to help her in and out of the house or vehicle. However, if patient goes to a shelter facility therapy will see her at least 6 days a week. They will teach her techniques for getting around on one foot while she also builds strength to help her better manage independently or with less assistance. There will be a nurse to monitor her foot all the time and they will be able to assist her in getting back and forth to her follow up appointments. EDEN also explained home health therapy will only be out a couple of times a week and the nurse maybe once a week. SW told patient the facility her chose is one of the better ones in the area and it is close by their home. SW explained if patient could give it just a couple of weeks that would help. Patient's walked in at that time. Patient was quite. SW thanked patient for talking and listening to SW. SW asked patient that she please think about it. [facility] accepted and has started pre-cert. Hopefully patient will agree to go. Mere WHITE
--- NOTE | 2022-06-08 10:02 | DS.PCM_ITS ---
Providers Date of Admission: 06/03/22 Date of Discharge: 06/08/22 Primary Care Physician: Dr. Alfonso Carlson MD Consultations 06/03/22 22:12 Consult: Onc/Wound/allergist/immunologist physician Routine Comment: Reason for Consult:: Right foot gangrene Consult: Podiatry Routine Consulting Provider: Yazan Grimaldo Reason for Consult: Diabetic foot ulcer of right foot EMERGENT Consult: No Notified: Yes Date Notified: 06/04/22 Time Notified: 06:46 Method of Notification: Text 06/07/22 12:53 Consult: Infectious Disease Routine Consulting Provider: Salomón Blanchard Reason for Consult: Right TMA, diabetic foot EMERGENT Consult: No Notified: Yes Date Notified: 06/07/22 Time Notified: 12:53 Method of Notification: Text Reason For Visit: DIABETIC FOOT ULCER INFECTION Diagnosis Discharge Diagnosis (1) Gangrene of right foot: Status: Acute Code(s): I96 - Gangrene, not elsewhere classified (2) 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 Patient has chronic lower extremity ischemia due to peripheral arterial disease and diabetes. 1. Dry gangrene of her right foot with necrotic third toe status post partial amputation on the right 06/04/2022 with history of peripheral arterial disease: During previous admission patient was transferred tertiary care center for vascular repair of femoral artery which was done and patient has better perfusion of lower extremity. Patient had right transmetatarsal amputation. On IV vancomycin and Zosyn, prelim wound culture shows Klebsiella aerogenes. Prelim anaerobic culture pending. ID is consulted. Total nonweightbearing advised on right foot but the patient does not agree to SNF. Her wants her to go to long term as he cannot take care of her. 06/08: Patient was seen by ID. He prescribed linezolid and cefdinir for discharge. Patient has oxycodone on her home medication. 2. Acute iron deficiency anemia: Patient hemoglobin dropped to 7.8 g. Had 1 unit of PRBC transfusion. Her baseline hemoglobin is around 12 g. 3. Hypertension and dyslipidemia: Patient blood pressure is on lower side. Continue antihypertensive medication with holding parameter. On Lipitor. Plavix restarted 4. Diabetes mellitus type 2 with CKD stage III, diabetic nephropathy: Continue insulin. Accu-Cheks and coverage Humalog sliding scale. 5. Anxiety/depression No acute issues ? Continue with her home medications DVT: SCDs Medications at Discharge Home Medications lisinopril 10 mg tablet 10 mg PO DAILY BP 02/17/21 clopidogrel 75 mg tablet (Plavix) 75 mg PO DAILY #90 tabs 03/25/22 omeprazole 40 mg capsule,delayed release 40 mg PO BID #60 caps 04/06/22 acetaminophen 500 mg tablet 500 - 1,000 mg PO Q6H PRN Pain 06/03/22 ascorbic acid (vitamin C) 500 mg tablet (Vitamin C) 500 mg PO DAILY SUPPLEMENT 06/03/22 aspirin 81 mg chewable tablet 81 mg PO DAILY HEALTH 06/03/22 atorvastatin 40 mg tablet 40 mg PO QHS CHOLESTEROL 06/03/22 baclofen 10 mg tablet 10 mg PO BID BACK 06/03/22 citalopram 20 mg tablet 20 mg PO DAILY DEPRESSION 06/03/22 levothyroxine 75 mcg tablet 75 mcg PO DAILY THYROID 06/03/22 metoprolol succinate 50 mg tablet,extended release 24 hr 50 mg PO DAILY HEART 06/03/22 oxycodone 5 mg tablet 5 mg PO BID PAIN 06/03/22 polysaccharide iron complex 150 mg iron capsule (iFerex 150) 150 mg PO DAILY SUPPLEMENT 06/03/22 pregabalin 50 mg capsule 50 mg PO BID PAIN 06/03/22 cefdinir 300 mg capsule 300 mg PO Q12H 5 days #10 caps 06/08/22 insulin degludec 200 unit/mL (3 mL) subcutaneous pen (Tresiba FlexTouch U-200 insulin) 50 unit (0.25 mL) subcut BID diabetes #9 mL 06/08/22 insulin lispro 100 unit/mL subcutaneous pen (Humalog KwikPen (U-100) Insulin) See Protocol subcut ACHS #0 mL 06/08/22 linezolid 600 mg tablet 600 mg PO BID 7 days #14 tabs 06/08/22 sucralfate 1 gram tablet 1 g PO 1HR_ACHS 30 days #0 tabs 06/08/22 Medical Records Data Medical Nutrition Assessment Dietitian: Malnutrition Criteria Met Start: 06/04/22 13:36 Freq: Status: Active Protocol: Document 06/07/22 14:51 RMA (Rec: 06/07/22 14:51 RMA [id number]) Nutrition Malnutrition Evidence of Malnutrition Exists Yes Malnutrition (severe): Acute Illness/Injury Evidenced By Suboptimal Energy Intake ( Severe),Weight Loss (Severe) Intake Problem Increased Nutrient Needs (specify) Etiology for protein related to increased demand for wound healing Signs/Symptoms as evidenced by nonhealing R DM foot wound Status Active Problem Clinical Problem Acute Disease or Injury Related Malnutrition Etiology Severe protein-calorie malnutrition in the context of acute illness related to inadequate oral intake Signs/Symptoms as evidenced by BMI 20.7, ~6% wt loss x 1 month, ~13% wt loss x 3 months and poor oral intake meeting less than 50% estimated nutrition needs x past 3 months Status Active Problem Recommendation Dietitian Recommendations/Changes Will change diet to 1600 calorie/consistent carbohydrate. Will continue 120 ml strawberry glucerna shake TID w/ medpass. Will continue Williams BID for wound healing. Will add 1 oz extra meat/ protein with meals. Weight / BMI Weight Weight: 113 lb 5.082 oz Body Mass Index (BMI) 20.7 ABG / Lab / Microbiology Data Result Diagrams: 06/08/22 05:33 06/08/22 05:33 Laboratory: Laboratory Results - last 24 hr 06/07/22 16:15: POC Glucose 145 H 06/07/22 21:59: POC Glucose 206 H 06/08/22 00:10: Vancomycin Trough 17.2 H 06/08/22 05:33: WBC 10.0, RBC 2.97 L, Hgb 8.2 L, Hct 26.8 L, MCV 90.2, MCH 27.6, MCHC 30.6 L D, RDW Std Deviation 59.7 H, RDW Coeff of Melvina 18.1 H, Plt Count 253, MPV 10.1, Immature Gran % (Auto) 0.500, Neut % (Auto) 63.0, Lymph % (Auto) 23.5, [place] % (Auto) 9.9, Eos % (Auto) 2.7, Baso % (Auto) 0.4, Absolute Neuts (auto) 6.3, Absolute Lymphs (auto) 2.34, Nucleated RBC % 0 06/08/22 05:33: Sodium 143, Potassium 3.2 L, Chloride 116 H, Carbon Dioxide 21.0, Anion Gap 6, BUN 36 H, Creatinine 0.62, Estim Creat Clear Calc 39.63, Est GFR (MDRD) Af Amer 122, Est GFR (MDRD) Non-Af 101, BUN/Creatinine Ratio 58.5 H, Glucose 109 H, Calcium 9.1 06/08/22 11:23: POC Glucose 115 H Microbiology: Microbiology 06/04/22 13:56 Tissue - Right Foot Gram Stain - Final 06/04/22 13:56 Tissue - Right Foot Wound Culture - Final Klebsiella aerogenes Vancomycin Resist. E. faecium 06/04/22 13:56 Tissue - Right Foot Anaerobic Culture - Final No anaerobic bacteria isolated. Meaningful Use Info Meaningful Use Diagnoses (Choose all that apply): None applicable Discharge Plan Admission Admit Date/Time: 06/03/22 20:08 Primary Reason for Your Visit: Diabetic foot ulcer. Right metatarsal amputation Attending Provider: Kaleb Hawkins Primary Care Provider: Alfonso Carlson Chi Consulting Providers: Kamron Ang ; Yazan Grimaldo ; Dean Cleaning ; Salomón Blanchard Discharge Orders/Prescriptions Prescriptions: New linezolid 600 mg Tablet 600 mg PO BID 7 Days Qty: 14 0RF cefdinir 300 mg capsule 300 mg PO Q12H 5 Days Qty: 10 0RF insulin lispro [Humalog KwikPen Insulin] 100 unit/mL Insulin Pen See Protocol subcut ACHS Qty: 0 0RF Protocol: 4. Sliding Scale Insulin High-Med Dosing Condition: 150-199 mg/dl = 2 units Condition: 200-259 mg/dl = 4 units Condition: 260-324 mg/dl = 6 units Condition: 325-374 mg/dl = 8 units Condition: 375-409 mg/dl = 10 units Condition: 410-449 mg/dl = 11 units Condition: Greater than 449 call physician Protocol Text: - Use for Total Daily Dose of Insulin 56-80 units - Patient who are insulin resistant or septic HIGH MEDIUM DOSING ALGORITHM sucralfate 1 gram Tablet 1 g PO 1HR_ACHS 30 Days Qty: 0 0RF Continued lisinopril 10 mg tablet 10 mg PO DAILY omeprazole 40 mg capsule,delayed release(DR/EC) 40 mg PO BID Qty: 60 2RF atorvastatin 40 mg tablet 40 mg PO QHS Label Comments: TAKE 1 TABLET BY MOUTH ONCE DAILY AT BEDTIME metoprolol succinate 50 mg tablet extended release 24 hr 50 mg PO DAILY Label Comments: TAKE 1 TABLET BY MOUTH ONCE DAILY polysaccharide iron complex [iFerex 150] 150 mg iron capsule 150 mg PO DAILY Label Comments: TAKE 1 CAPSULE BY MOUTH ONCE DAILY acetaminophen 500 mg tablet 500 - 1,000 mg PO Q6H PRN (Reason: Pain) Label Comments: TAKE 2 TABLETS BY MOUTH EVERY 8 HOURS FOR 15 DAYS levothyroxine 75 mcg tablet 75 mcg PO DAILY Label Comments: TAKE 1 TABLET BY MOUTH ONCE DAILY citalopram 20 mg tablet 20 mg PO DAILY Label Comments: TAKE 1 TABLET BY MOUTH ONCE DAILY ascorbic acid (vitamin C) [Vitamin C] 500 mg tablet 500 mg PO DAILY Label Comments: TAKE 1 TABLET BY MOUTH ONCE DAILY baclofen 10 mg tablet 10 mg PO BID Label Comments: TAKE 1 TABLET BY MOUTH TWICE DAILY NEEDED FOR BACK SPASM aspirin 81 mg tablet,chewable 81 mg PO DAILY Label Comments: CHEW AND SWALLOW 1 TABLET BY MOUTH ONCE DAILY oxycodone 5 mg tablet 5 mg PO BID Label Comments: TAKE 1 TABLET BY MOUTH TWICE DAILY NEEDED pregabalin 50 mg capsule 50 mg PO BID Label Comments: TAKE 1 CAPSULE BY MOUTH TWICE DAILY clopidogrel [Plavix] 75 mg tablet 75 mg PO DAILY Qty: 90 0RF Label Comments: STOP 1 DAY PRIOR TO OR Changed insulin degludec [Tresiba FlexTouch U-200] 200 unit/mL (3 mL) insulin pen 50 unit SUBCUT BID Qty: 9 2RF Referrals / Follow Up: Yazan Grimaldo DPM [Med Staff - Active Staff] - Within 1 Week (Follow-up in wound center in 1 week.) Salomón Blanchard MD [Med Staff - Active Staff] - Within 1 Month (As needed.) Alfonso Carlson Chi, MD [Primary Care Provider] - Disposition Disposition (needs filled in before D/C Order can be placed): Longterm Facility
--- NOTE | 2022-06-08 10:17 | CON.PCM.ID_ITS ---
Assessment & Plan Assessment/Plan (1) Gangrene of right foot: PLAN: Now s/p TMA 06/04/[address] Grimaldo. Surg cx with VRE and klebs. On v anc/zosyn, will change to linezolid/zosyn while here. Ok for d/c with one week po linezolid, 5 days po omnicef. 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 Had dry gangrene present for about 1 month, no inciting event. Developed some mild/moderate pain at that site. No fever, no redness, no drainage. Admitted here, taken for TMA on 06/04/[address] Jensen. On vanc/zosyn. Surg cx with VRE and klebs. Feeling ok today, discharge to ECF planned. Full ROS performed and neg except as noted above. [facility] Medical History Arthritis Diabetes Essential (primary) hypertension Gastric reflux High cholesterol History of venous thromboembolism Hormone deficiency Hyperlipidemia PAD (peripheral artery disease) Post-menopausal Seasonal allergies Type 2 diabetes mellitus Wears glasses Home Medications insulin degludec 200 unit/mL (3 mL) subcutaneous pen (Tresiba FlexTouch U-200 insulin) 80 unit subcut BID diabetes 01/21/21 [History Last Taken 06/03/22] lisinopril 10 mg tablet 10 mg PO DAILY BP 02/17/21 [History Last Taken 06/03/22] clopidogrel 75 mg tablet (Plavix) 75 mg PO DAILY #90 tabs 03/25/22 [Rx Last Taken 06/03/22] omeprazole 40 mg capsule,delayed release 40 mg PO BID #60 caps 04/06/22 [Rx Last Taken 06/03/22] acetaminophen 500 mg tablet 500 - 1,000 mg PO Q6H PRN Pain 06/03/22 [History Last Taken 06/03/22] ascorbic acid (vitamin C) 500 mg tablet (Vitamin C) 500 mg PO DAILY SUPPLEMENT 06/03/22 [History Last Taken 06/03/22] aspirin 81 mg chewable tablet 81 mg PO DAILY HEALTH 06/03/22 [History Last Taken 06/03/22] atorvastatin 40 mg tablet 40 mg PO QHS CHOLESTEROL 06/03/22 [History Last Taken 06/02/22] baclofen 10 mg tablet 10 mg PO BID BACK 06/03/22 [History Last Taken 06/03/22] citalopram 20 mg tablet 20 mg PO DAILY DEPRESSION 06/03/22 [History Last Taken 06/03/22] levothyroxine 75 mcg tablet 75 mcg PO DAILY THYROID 06/03/22 [History Last Taken 06/03/22] metoprolol succinate 50 mg tablet,extended release 24 hr 50 mg PO DAILY HEART 06/03/22 [History Last Taken 06/03/22] oxycodone 5 mg tablet 5 mg PO BID PAIN 06/03/22 [History Last Taken 06/03/22] polysaccharide iron complex 150 mg iron capsule (iFerex 150) 150 mg PO DAILY SUPPLEMENT 06/03/22 [History Last Taken 06/03/22] pregabalin 50 mg capsule 50 mg PO BID PAIN 06/03/22 [History Last Taken 06/03/22] cefdinir 300 mg capsule 300 mg PO Q12H 5 days #10 caps 06/08/22 [Rx Last Taken Unknown] linezolid 600 mg tablet 600 mg PO BID 7 days #14 tabs 06/08/22 [Rx Last Taken Unknown] Allergy/AdvReac Type Severity Reaction Status Date / Time diphenhydramine Allergy Swelling Verified 06/03/22 16:26 [From Benadryl] Family History Father Heart disease Hypertension Mother Diabetes Hypertension Kidney disease Liver disease Other Arthritis Surgical History History of S/P foot surgery, right Social History household members: spouse housing: house number of children: 2 current occupational status: retired history of recent travel: No other: Patient did have notable secondhand tobacco exposure from [employer]. Smoking Status: Never smoker alcohol intake: never substance use type: does not use what type of physical activity do you participate in: none Physical Exam Const alert, oriented x3 and no apparent distress General Appearance: cooperative HEENT normocephalic and head/scalp atraumatic Eyes PERRL and EOMs intact bilaterally Neck supple and No nodes Resp normal air movement and clear to auscultation bilaterally Cardio regular rate and regular rhythm GI soft to palpation, non-tender and non-distended Extremity General Extremity: Negative for edema Skin Skin Narrative: foot wrapped, reviewed photos Neuro CN's II-XII intact bilaterally Medical Records Data Medical Nutrition Assessment Dietitian: Malnutrition Criteria Met Start: 06/04/22 13:36 Freq: Status: Active Protocol: Document 06/07/22 14:51 RMA (Rec: 06/07/22 14:51 RMA [id number]) Nutrition Malnutrition Evidence of Malnutrition Exists Yes Malnutrition (severe): Acute Illness/Injury Evidenced By Suboptimal Energy Intake ( Severe),Weight Loss (Severe) Intake Problem Increased Nutrient Needs (specify) Etiology for protein related to increased demand for wound healing Signs/Symptoms as evidenced by nonhealing R DM foot wound Status Active Problem Clinical Problem Acute Disease or Injury Related Malnutrition Etiology Severe protein-calorie malnutrition in the context of acute illness related to inadequate oral intake Signs/Symptoms as evidenced by BMI 20.7, ~6% wt loss x 1 month, ~13% wt loss x 3 months and poor oral intake meeting less than 50% estimated nutrition needs x past 3 months Status Active Problem Recommendation Dietitian Recommendations/Changes Will change diet to 1600 calorie/consistent carbohydrate. Will continue 120 ml strawberry glucerna shake TID w/ medpass. Will continue Williams BID for wound healing. Will add 1 oz extra meat/ protein with meals. Lab / Micro Data Attestation: I reviewed the patient's lab results. Result Diagrams: 06/08/22 05:33 06/08/22 05:33 Labs: Laboratory Results - last 24 hr 06/07/22 10:54: POC Glucose 149 H 06/07/22 16:15: POC Glucose 145 H 06/07/22 21:59: POC Glucose 206 H 06/08/22 00:10: Vancomycin Trough 17.2 H 06/08/22 05:33: WBC 10.0, RBC 2.97 L, Hgb 8.2 L, Hct 26.8 L, MCV 90.2, MCH 27.6, MCHC 30.6 L D, RDW Std Deviation 59.7 H, RDW Coeff of Melvina 18.1 H, Plt Count 253, MPV 10.1, Immature Gran % (Auto) 0.500, Neut % (Auto) 63.0, Lymph % (Auto) 23.5, [place] % (Auto) 9.9, Eos % (Auto) 2.7, Baso % (Auto) 0.4, Absolute Neuts (auto) 6.3, Absolute Lymphs (auto) 2.34, Nucleated RBC % 0 06/08/22 05:33: Sodium 143, Potassium 3.2 L, Chloride 116 H, Carbon Dioxide 21.0, Anion Gap 6, BUN 36 H, Creatinine 0.62, Estim Creat Clear Calc 39.63, Est GFR (MDRD) Af Amer 122, Est GFR (MDRD) Non-Af 101, BUN/Creatinine Ratio 58.5 H, Glucose 109 H, Calcium 9.1 Micro: Microbiology 06/04/22 13:56 Tissue - Right Foot Gram Stain - Final 06/04/22 13:56 Tissue - Right Foot Wound Culture - Final Klebsiella aerogenes Vancomycin Resist. E. faecium 06/04/22 13:56 Tissue - Right Foot Anaerobic Culture - Final No anaerobic bacteria isolated.
[2022-06-08] MEDS: Metoprolol(XL)Succ 50 MG Tablet PO (10:40)
[2022-06-08] MEDS: Pantoprazole Sodium 40 MG Tablet PO (10:40)
[2022-06-08] MEDS: Baclofen 10 MG Tablet PO ×2 (10:40→16:36)
[2022-06-08] MEDS: Juven (unflavored) Packet 1 PACKET PO ×2 (10:40→16:36)
[2022-06-08] MEDS: Iron Polysaccharide Complex 150 MG CAPSULE PO (10:40)
[2022-06-08] MEDS: Lisinopril 10 MG Tablet PO (10:40)
[2022-06-08] MEDS: Citalopram 20 MG Tablet PO (10:40)
[2022-06-08] MEDS: Clopidogrel Bisulfate 75 MG Tablet PO (10:40)
[2022-06-08] MEDS: Aspirin 81 MG TAB.CHEW PO (10:40)
[2022-06-08] MEDS: Linezolid 600 MG Tablet PO (10:44)
[2022-06-08] MEDS: Pregabalin 50 MG Capsule PO (10:44)
[2022-06-08] MEDS: Glucerna Shake 120 ML LIQUID PO (11:26)
[2022-06-08 12:11] LABS: Bedside Glucose 115 mg/dL (74-106)
--- NOTE | 2022-06-08 14:54 | CASEMGMT ---
Insurance approved patient to go to [place]. EDEN notified physician and he will send patient today. EDEN met with patient. SW explained to patient that her insurance approved her to go to [place]. At first patient said she is going home. SW spoke with patient a bit longer and reminded her that Dr Cunningham spoke with her about going for at least a week or 2. SW asked that she give it at least 1 week and see how it goes. Patient agreed to 1 week at the group home. Await orders. Mere WHITE
--- NOTE | 2022-06-08 15:16 | CASEMGMT ---
EDEN called patient's and let him know patient was approved to go to [facility] and she agreed to 1 week. EDEN let him know she will be able to wear regular clothes while at [facility]. 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 EDEN completed 7000 in [employer]. EDEN called Physicians and arranged for patient to get picked up at 530 via wheelchair. Plan: d/c to [facility] under skilled level of care on a convalescent stay. Physicians will transport at 530 pm. Mere WHITE
--- NOTE | 2022-06-08 15:33 | CASEMGMT ---
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 Await med list and COVID test. 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
--- NOTE | 2022-06-08 16:00 | PHA.DC.MR ---
Pharmacy Service has performed discharge medication reconciliation for this patient. The patient's discharge medication list was reviewed for discrepancies and discrepancies were resolved. Home Medications lisinopril 10 mg tablet 10 mg PO DAILY BP 02/17/21 clopidogrel 75 mg tablet (Plavix) 75 mg PO DAILY #90 tabs 03/25/22 omeprazole 40 mg capsule,delayed release 40 mg PO BID #60 caps 04/06/22 acetaminophen 500 mg tablet 500 - 1,000 mg PO Q6H PRN Pain 06/03/22 ascorbic acid (vitamin C) 500 mg tablet (Vitamin C) 500 mg PO DAILY SUPPLEMENT 06/03/22 aspirin 81 mg chewable tablet 81 mg PO DAILY HEALTH 06/03/22 atorvastatin 40 mg tablet 40 mg PO QHS CHOLESTEROL 06/03/22 baclofen 10 mg tablet 10 mg PO BID BACK 06/03/22 citalopram 20 mg tablet 20 mg PO DAILY DEPRESSION 06/03/22 levothyroxine 75 mcg tablet 75 mcg PO DAILY THYROID 06/03/22 metoprolol succinate 50 mg tablet,extended release 24 hr 50 mg PO DAILY HEART 06/03/22 oxycodone 5 mg tablet 5 mg PO BID PAIN 06/03/22 polysaccharide iron complex 150 mg iron capsule (iFerex 150) 150 mg PO DAILY SUPPLEMENT 06/03/22 pregabalin 50 mg capsule 50 mg PO BID PAIN 06/03/22 cefdinir 300 mg capsule 300 mg PO Q12H 5 days #10 caps 06/08/22 insulin degludec 200 unit/mL (3 mL) subcutaneous pen (Tresiba FlexTouch U-200 insulin) 50 unit (0.25 mL) subcut BID diabetes #9 mL 06/08/22 insulin lispro 100 unit/mL subcutaneous pen (Humalog KwikPen (U-100) Insulin) See Protocol subcut ACHS #0 mL 06/08/22 linezolid 600 mg tablet 600 mg PO BID 7 days #14 tabs 06/08/22 sucralfate 1 gram tablet 1 g PO 1HR_ACHS 30 days #0 tabs 06/08/22
--- NOTE | 2022-06-08 16:01 | CASEMGMT ---
SW sent d/c orders, med list, and COVID test to [place] via [facility]. Plan: d/c to [place] under skilled level of care on a convalescent stay. Physicians will transport patient via wheelchair van. Mere WHITE
[2022-06-08 17:35] LABS: Bedside Glucose 81 mg/dL (74-106)
--- NOTE | 2022-06-08 17:45 | NURSING ---
Report called to MARKIE Rogers at [facility] at [phone].
== END 2022-06-08 17:15 | disposition skilled nursing facility (03) | DRG 239 ==
LOC: ED 19:41 → PCU 21:12
PROVIDERS: Family Medicine; Podiatrist; Admitting Provider Hospitalist; Emergency Provider Emergency Medicine; PCP Family Medicine Geriatric Medicine; Visit Provider Internal Medicine
PROC: 0Y6M0Z9 Detachment at Right Foot, Partial 1st Ray, Open Approach (ICD-10-PCS; CPT 28805; principal; 2022-06-04 11:45)
DX: E11.52 Type 2 diabetes mellitus with diabetic peripheral angiopathy with gangrene (principal); E43 Unspecified severe protein-calorie malnutrition; M86.171 Other acute osteomyelitis, right ankle and foot; Z16.21 Resistance to vancomycin; D63.1 Anemia in chronic kidney disease; E11.21 Type 2 diabetes mellitus with diabetic nephropathy; L97.512 Non-pressure chronic ulcer of other part of right foot with fat layer exposed; B96.1 Klebsiella pneumoniae [K. pneumoniae] as the cause of diseases classified elsewhere; E11.22 Type 2 diabetes mellitus with diabetic chronic kidney disease; E11.42 Type 2 diabetes mellitus with diabetic polyneuropathy; N18.31 Chronic kidney disease, stage 3a; Z79.4 Long term (current) use of insulin; E11.69 Type 2 diabetes mellitus with other specified complication; E11.621 Type 2 diabetes mellitus with foot ulcer; D50.9 Iron deficiency anemia, unspecified; E78.00 Pure hypercholesterolemia, unspecified; I12.9 Hypertensive chronic kidney disease with stage 1 through stage 4 chronic kidney disease, or unspecified chronic kidney disease; F41.9 Anxiety disorder, unspecified; F32.A Depression, unspecified; X58.XXXA Exposure to other specified factors, initial encounter; Z68.20 Body mass index [BMI] 20.0-20.9, adult; Z79.02 Long term (current) use of antithrombotics/antiplatelets; Z79.82 Long term (current) use of aspirin; Z79.891 Long term (current) use of opiate analgesic; Z79.899 Other long term (current) drug therapy; Z86.711 Personal history of pulmonary embolism; Z86.718 Personal history of other venous thrombosis and embolism
CPT/HCPCS: 36415; 73630; 80048; 80202; 82962; 85025; 85652; 86140; 86850; 86900; 86901; 86920; 86922; 87070; 87075; 87077; 87102; 87176; 87186; 87205; 87206; 87811; 88305; 88311; 93005; 97110; 97163; 97166; 97530; 97535; 97802; 97803; 99284; J7030; J7040; J7050; J7120; P9016; A4216; J2405

== ENCOUNTER → 2022-06-11 | Outpatient (REF) | payer MEDICARE, SELFPAY ==
[2022-06-11 08:19] LABS: Hematocrit 28.5 % (37-47); Hemoglobin 9.1 g/dL (12.0-15.0); Mean Corp Hgb Conc 31.9 g/dL (32-36); Mean Corpuscular Hgb 27.2 pg (27.0-32.0); Mean Corpuscular Volume 85.3 fL (81-99); Mean Platelet Vol. 9.3 fl (6.2-12.0); Platelet Count 312 K/mm3 (150-450); RBC Distribution Width CV 16.5 % (11.6-14.6); RBC Distribution Width SD 51.4 fl (35.1-43.9); Red Blood Count 3.34 M/mm3 (4.2-5.4)
[2022-06-11 08:47] LABS: ALB/GLOB Ratio 0.6 RATIO (0.9-2.4); AST(SGOT) 21 U/L (15-37); Alanine Aminotransfer ALT/SGPT 20 U/L (13-56); Albumin, Serum 2.3 g/dL (3.2-5.0); Alkaline Phosphatase 70 U/L (45-117); Anion Gap 10 (5-15); BUN 23 mg/dL (7-18); BUN/Creat Ratio 32.4 RATIO (10-20); Calcium,Total 8.9 mg/dL (8.5-10.1); Chloride 107 mmol/L (98-107); Creatinine, Serum 0.71 mg/dL (0.55-1.02); EST Glomerular Filtration Rate 86 mL/min (>60); Est Glom Filt Rate - Afr Amer 104 mL/min (>60); Globulin 4.1 g/dL (2.2-4.2); Glucose 141 mg/dL (74-106); Potassium 3.2 mmol/L (3.5-5.1); Protein, Total 6.4 g/dL (6.4-8.2); Sodium Level 140 mmol/L (136-145)
== END ==
LOC: OLS.WHLTCC 05:00
PROVIDERS: PCP Family Medicine Geriatric Medicine; Visit Provider Internal Medicine
DX: R53.83 Other fatigue (principal); I73.9 Peripheral vascular disease, unspecified; E11.42 Type 2 diabetes mellitus with diabetic polyneuropathy; I96 Gangrene, not elsewhere classified; Z47.81 Encounter for orthopedic aftercare following surgical amputation
CPT/HCPCS: 36415; 80053; 85027

== ENCOUNTER → 2022-06-18 | Outpatient (CLI) | payer MEDICARE, SELFPAY ==
[2022-06-18 12:34] LABS: Absolute Lymphocyte Count 3.41 X10^3/uL (0.83-4.51); Absolute Neutrophil Count 5.2 X10^3/uL (2.0-7.7); Hematocrit 32.4 % (37-47); Hemoglobin 10.4 g/dL (12.0-15.0); Lymphocyte # 3.41 X10^3/ul (0.83-4.51); Mean Corp Hgb Conc 32.1 g/dL (32-36); Mean Corpuscular Hgb 27.4 pg (27.0-32.0); Mean Corpuscular Volume 85.5 fL (81-99); Mean Platelet Vol. 8.8 fl (6.2-12.0); Monocyte# 0.95 X10^3/uL; Monocyte% 9.7 % (0-10); NRBC Flagged by Analyzer 0 % (0-5); Neutrophil # 5.16 X10^3/uL (2.7-7.7); Platelet Count 399 K/mm3 (150-450); RBC Distribution Width CV 15.9 % (11.6-14.6); RBC Distribution Width SD 49.4 fl (35.1-43.9); Red Blood Count 3.79 M/mm3 (4.2-5.4); White Blood Count 9.8 K/mm3 (4.4-11.0)
[2022-06-18 12:58] LABS: Hemoglobin A1c 7.2 % (3.8-5.6)
[2022-06-18 13:41] LABS: Anion Gap 8 (5-15); BUN 17 mg/dL (7-18); BUN/Creat Ratio 19.3 RATIO (10-20); Calcium,Total 9.2 mg/dL (8.5-10.1); Chloride 105 mmol/L (98-107); Cholesterol 152 mg/dL (200); Creatinine, Serum 0.88 mg/dL (0.55-1.02); EST Glomerular Filtration Rate 67 mL/min (>60); Est Glom Filt Rate - Afr Amer 81 mL/min (>60); Glucose 260 mg/dL (74-106); High Density Lipoprotein 43 mg/dL; Potassium 4.1 mmol/L (3.5-5.1); Sodium Level 134 mmol/L (136-145); Triglycerides 272 mg/dL; Very Low Density Lipoprotein 54 mg/dL (5-40)
== END | disposition home or self-care (01) ==
LOC: POLAB3 12:09
PROVIDERS: PCP Family Medicine Geriatric Medicine; Visit Provider Family Medicine Geriatric Medicine
DX: D50.9 Iron deficiency anemia, unspecified (principal); E11.65 Type 2 diabetes mellitus with hyperglycemia; E87.5 Hyperkalemia
CPT/HCPCS: 36415; 80048; 80061; 83036; 85025

== ENCOUNTER 2022-07-12 20:24 | Emergency (ER) | payer MEDICARE, SELFPAY ==
[2022-07-12 20:26] VITALS: BP 140/76; PULSE 100; RESP 20; TEMP 36.3; O2SAT 100; BMI 21.9
--- NOTE | 2022-07-12 23:02 | EX.ED.DYSGE1 ---
HPI History of Present Illness Chief Complaint: Lower Extremity Injury Detail of Chief Complaint: Right foot pain Informant: patient Onset/Context/Timing Onset: Yesterday Context: Gradual Onset Timing: Waxes and wanes Current Severity: Moderate Maximum Severity: Moderate Narrative Narrative: Patient presents secondary to right foot pain. She had 4 toes amputated last month with Dr. Grimaldo. She states she developed pain last evening and progressed throughout the day today. She is scheduled to see Dr. Grimaldo in the office tomorrow. No fever or chills. She had a small area of drainage from the wound which caused her dressing to stick to the area tonight. No surrounding redness. [facility] Medical History Arthritis Diabetes Essential (primary) hypertension Gastric reflux High cholesterol History of venous thromboembolism Hormone deficiency Hyperlipidemia PAD (peripheral artery disease) Post-menopausal Seasonal allergies Type 2 diabetes mellitus Wears glasses Home Medications lisinopril 10 mg tablet 10 mg PO DAILY BP 02/17/21 [History Last Taken 06/03/22] omeprazole 40 mg capsule,delayed release 40 mg PO BID #60 caps 04/06/22 [Rx Last Taken 06/03/22] acetaminophen 500 mg tablet 500 - 1,000 mg PO Q6H PRN Pain 06/03/22 [History Last Taken 06/03/22] ascorbic acid (vitamin C) 500 mg tablet (Vitamin C) 500 mg PO DAILY SUPPLEMENT 06/03/22 [History Last Taken 06/03/22] aspirin 81 mg chewable tablet 81 mg PO DAILY HEALTH 06/03/22 [History Last Taken 06/03/22] atorvastatin 40 mg tablet 40 mg PO QHS CHOLESTEROL 06/03/22 [History Last Taken 06/02/22] baclofen 10 mg tablet 10 mg PO BID BACK 06/03/22 [History Last Taken 06/03/22] citalopram 20 mg tablet 20 mg PO DAILY DEPRESSION 06/03/22 [History Last Taken 06/03/22] levothyroxine 75 mcg tablet 75 mcg PO DAILY THYROID 06/03/22 [History Last Taken 06/03/22] metoprolol succinate 50 mg tablet,extended release 24 hr 50 mg PO DAILY HEART 06/03/22 [History Last Taken 06/03/22] oxycodone 5 mg tablet 5 mg PO BID PAIN 06/03/22 [History Last Taken 06/03/22] polysaccharide iron complex 150 mg iron capsule (iFerex 150) 150 mg PO DAILY SUPPLEMENT 06/03/22 [History Last Taken 06/03/22] pregabalin 50 mg capsule 50 mg PO BID PAIN 06/03/22 [History Last Taken 06/03/22] cefdinir 300 mg capsule 300 mg PO Q12H 5 days #10 caps 06/08/22 [Rx Last Taken Unknown] insulin degludec 200 unit/mL (3 mL) subcutaneous pen (Tresiba FlexTouch U-200 insulin) 50 unit (0.25 mL) subcut BID diabetes #9 mL 06/08/22 [Rx Last Taken 06/03/22] insulin lispro 100 unit/mL subcutaneous pen (Humalog KwikPen (U-100) Insulin) See Protocol subcut ACHS #0 mL 06/08/22 [Rx Last Taken Unknown] linezolid 600 mg tablet 600 mg PO BID 7 days #14 tabs 06/08/22 [Rx Last Taken Unknown] sucralfate 1 gram tablet 1 g PO 1HR_ACHS 30 days #0 tabs 06/08/22 [Rx Last Taken Unknown] clopidogrel 75 mg tablet (Plavix) 75 mg PO DAILY #90 tabs 06/30/22 [Rx Last Taken Unknown] Allergy/AdvReac Type Severity Reaction Status Date / Time diphenhydramine Allergy Swelling Verified 07/12/22 20:28 [From Benadryl] Family History Father Heart disease Hypertension Mother Diabetes Hypertension Kidney disease Liver disease Other Arthritis Surgical History 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 Smoking Status: Never smoker alcohol intake: never substance use type: does not use what type of physical activity do you participate in: none ROS ROS ED Constitutional Constitutional ED: Denies chills or fever(s) Eyes Eyes: Denies change in vision ENT ENT ED: Denies rhinorrhea or sore throat Cardiovascular Cardiovascular: Denies chest pain or palpitations Respiratory/Chest Respiratory/Chest: Denies cough or dyspnea Gastrointestinal Gastrointestinal: Denies abdominal pain, nausea or vomiting Musculoskeletal Musculoskeletal: Reports extremity pain; Denies back pain Integumentary Reports other Details: Right foot surgical wound ; Denies Abrasions or rash Neurologic Neurologic: Denies headache(s) or weakness Psychiatric Psychiatric: Denies anxiety or depression Allergic/Immunologic Allergic/Immunologic ED: Denies lip swelling or urticaria EXAM Physical Exam Const Vital Signs: 07/12/22 20:26 Temperature 97.4 F L Temperature Source Temporal Pulse Rate 100 Respiratory Rate 20 H Blood Pressure 140/76 H Blood Pressure Mean 97 Pulse Ox 100 Oxygen Delivery Method Room Air Positive well nourished and well developed General Appearance ED: well developed HEENT Reports moist mucous membranes Eyes PERRL and EOMs intact bilaterally Chest Wall inspection of chest normal and palpation of chest normal Resp normal respiratory effort and clear to auscultation bilaterally Cardio regular rate and regular rhythm GI normal to inspection, nondistended, normoactive bowel sounds Extremity Extremity Narrative: Surgical incision across the distal aspect of the right foot with no sign of infection. The lateral side of the foot has superficial wound dehiscence. No drainage. No surrounding cellulitis. No tenderness in the calf. Neuro oriented x3 MDM MDM MDM Narrative Medical decision making narrative: Patient was given 1 tab of oxycodone here. I did do an [facility] report. Her last prescription was filled on June 09 for a 15-day supply of oxycodone. Right foot x-rays are obtained to ensure no subcutaneous air or bony destruction. Radiography Diagnostic Testing: Clinical Impression(s) from Imaging Studies Foot X-Ray 07/12/22 23:15 IMPRESSION: Previous amputation at the level of the proximal metatarsals again noted. Increasing soft tissue swelling. No lytic osseous lesion identified to indicate osteomyelitis. Electronically Signed: Awais Roper MD at 23:40 EDT , Treatment and Re-Evaluation :: Right foot x-rays per my interpretation reveal no evidence of bony destruction or obvious fluid/air collection. Radiology interpretation is reviewed. At this time I see no evidence of osteomyelitis. Wound will be cleansed and dressing placed. She has an appointment with Dr. Grimaldo at 945 tomorrow morning. Discharge Plan Triage Chief Complaint: Lower Extremity Injury ED Provider: Chrissy Gallagher Dx/Rx/DC Orders Clinical Impression: Post-op pain Instructions: ED Post Op Wound Check, Pain Prescriptions: No Action clopidogrel [Plavix] 75 mg tablet 75 mg PO DAILY Qty: 90 3RF Label Comments: STOP 1 DAY PRIOR TO OR lisinopril 10 mg tablet 10 mg PO DAILY omeprazole 40 mg capsule,delayed release(DR/EC) 40 mg PO BID Qty: 60 2RF atorvastatin 40 mg tablet 40 mg PO QHS Label Comments: TAKE 1 TABLET BY MOUTH ONCE DAILY AT BEDTIME metoprolol succinate 50 mg tablet extended release 24 hr 50 mg PO DAILY Label Comments: TAKE 1 TABLET BY MOUTH ONCE DAILY polysaccharide iron complex [iFerex 150] 150 mg iron capsule 150 mg PO DAILY Label Comments: TAKE 1 CAPSULE BY MOUTH ONCE DAILY acetaminophen 500 mg tablet 500 - 1,000 mg PO Q6H PRN (Reason: Pain) Label Comments: TAKE 2 TABLETS BY MOUTH EVERY 8 HOURS FOR 15 DAYS levothyroxine 75 mcg tablet 75 mcg PO DAILY Label Comments: TAKE 1 TABLET BY MOUTH ONCE DAILY citalopram 20 mg tablet 20 mg PO DAILY Label Comments: TAKE 1 TABLET BY MOUTH ONCE DAILY ascorbic acid (vitamin C) [Vitamin C] 500 mg tablet 500 mg PO DAILY Label Comments: TAKE 1 TABLET BY MOUTH ONCE DAILY baclofen 10 mg tablet 10 mg PO BID Label Comments: TAKE 1 TABLET BY MOUTH TWICE DAILY NEEDED FOR BACK SPASM aspirin 81 mg tablet,chewable 81 mg PO DAILY Label Comments: CHEW AND SWALLOW 1 TABLET BY MOUTH ONCE DAILY oxycodone 5 mg tablet 5 mg PO BID Label Comments: TAKE 1 TABLET BY MOUTH TWICE DAILY NEEDED pregabalin 50 mg capsule 50 mg PO BID Label Comments: TAKE 1 CAPSULE BY MOUTH TWICE DAILY linezolid 600 mg Tablet 600 mg PO BID 7 Days Qty: 14 0RF cefdinir 300 mg capsule 300 mg PO Q12H 5 Days Qty: 10 0RF insulin lispro [Humalog KwikPen Insulin] 100 unit/mL Insulin Pen See Protocol subcut ACHS Qty: 0 0RF Protocol: 4. Sliding Scale Insulin High-Med Dosing Condition: 150-199 mg/dl = 2 units Condition: 200-259 mg/dl = 4 units Condition: 260-324 mg/dl = 6 units Condition: 325-374 mg/dl = 8 units Condition: 375-409 mg/dl = 10 units Condition: 410-449 mg/dl = 11 units Condition: Greater than 449 call physician Protocol Text: - Use for Total Daily Dose of Insulin 56-80 units - Patient who are insulin resistant or septic HIGH MEDIUM DOSING ALGORITHM sucralfate 1 gram Tablet 1 g PO 1HR_ACHS 30 Days Qty: 0 0RF insulin degludec [Tresiba FlexTouch U-200] 200 unit/mL (3 mL) insulin pen 50 unit SUBCUT BID Qty: 9 2RF Primary Care Provider: Alfonso Carlson Chi Referrals: Yazan Grimaldo DPM [Med Staff - Active Staff] - Keep Alexis appointment Alfonso Carlson Chi, MD [Primary Care Provider] - Disposition Disposition: Home, Self Care
[2022-07-12] MEDS: oxyCODONE 5 MG Tablet PO (23:08)
--- NOTE | 2022-07-12 23:15 | RAD_ITS ---
EXAM: XR RIGHT FOOT COMPLETE, 3 OR MORE VIEWS CLINICAL INDICATION: pain TECHNIQUE: Frontal, lateral and oblique views of the right foot. This report was created using [employer] report generation technology. COMPARISON: 3 postoperative views of the right foot dated 06/04/2022. FINDINGS: BONES/JOINTS: Previous amputation at the foot at the level of the proximal metatarsals again noted; the osseous margins at the site of prior amputations are well-defined, without permeative destruction or periosteal elevation. Fixation plate and screws remain in place within the distal fibula. No acute fracture. No subluxation. Normal alignment. Preservation of the joint spaces. SOFT TISSUES: There is increasing soft tissue swelling about the distal aspect of the nonresected foot; there is diminishing subcutaneous emphysema within this soft tissue swelling as compared to the prior study. Vascular calcification again noted. No radiopaque foreign body. RAD/Foot min 3 Views IMPRESSION: Previous amputation at the level of the proximal metatarsals again noted. Increasing soft tissue swelling. No lytic osseous lesion identified to indicate osteomyelitis. Electronically Signed: Awais Roper MD at 23:40 EDT ,
== END 2022-07-13 00:53 | disposition home or self-care (01) ==
PROVIDERS: Emergency Provider Emergency Medicine; PCP Family Medicine Geriatric Medicine; Visit Provider Emergency Medicine
DX: G89.18 Other acute postprocedural pain (principal); M79.671 Pain in right foot; Z86.718 Personal history of other venous thrombosis and embolism
CPT/HCPCS: 73630; 99283

== ENCOUNTER 2022-07-23 12:26 | Emergency (ER) | payer MEDICARE, SELFPAY ==
[2022-07-23 12:27] VITALS: BP 125/55; PULSE 86; RESP 14; TEMP 36.6; O2SAT 97
[2022-07-23 12:45] VITALS: BMI 20.9
--- NOTE | 2022-07-23 13:02 | ED.VIS.FEGU ---
HPI HPI - Female History of Present Illness Chief Complaint: Complaint Detail of Chief Complaint: Dysuria. Informant: patient and spouse/S.O. Associated Symptoms Associated Symptoms: Positive for Dysuria Narrative Narrative: 72-year-old female seen in Dr. Carlson's office earlier today. Reportedly has had dysuria for 2 days and some pelvic discomfort. Office felt she might have a UTI. Sent to the emergency department. She denies any vomiting. Denies any fever. Prior similar symptoms: Yes Recent Illness/Hospitalization: Yes PFSH PFSH Medical History Arthritis Diabetes Essential (primary) hypertension Gastric reflux High cholesterol History of venous thromboembolism Hormone deficiency Hyperlipidemia PAD (peripheral artery disease) Post-menopausal Seasonal allergies Type 2 diabetes mellitus Wears glasses Home Medications lisinopril 10 mg tablet 10 mg PO DAILY BP 02/17/21 [History Last Taken 06/03/22] omeprazole 40 mg capsule,delayed release 40 mg PO BID #60 caps 04/06/22 [Rx Last Taken 06/03/22] acetaminophen 500 mg tablet 500 - 1,000 mg PO Q6H PRN Pain 06/03/22 [History Last Taken 06/03/22] ascorbic acid (vitamin C) 500 mg tablet (Vitamin C) 500 mg PO DAILY SUPPLEMENT 06/03/22 [History Last Taken 06/03/22] aspirin 81 mg chewable tablet 81 mg PO DAILY HEALTH 06/03/22 [History Last Taken 06/03/22] atorvastatin 40 mg tablet 40 mg PO QHS CHOLESTEROL 06/03/22 [History Last Taken 06/02/22] baclofen 10 mg tablet 10 mg PO BID BACK 06/03/22 [History Last Taken 06/03/22] citalopram 20 mg tablet 20 mg PO DAILY DEPRESSION 06/03/22 [History Last Taken 06/03/22] levothyroxine 75 mcg tablet 75 mcg PO DAILY THYROID 06/03/22 [History Last Taken 06/03/22] metoprolol succinate 50 mg tablet,extended release 24 hr 50 mg PO DAILY HEART 06/03/22 [History Last Taken 06/03/22] oxycodone 5 mg tablet 5 mg PO BID PAIN 06/03/22 [History Last Taken 06/03/22] polysaccharide iron complex 150 mg iron capsule (iFerex 150) 150 mg PO DAILY SUPPLEMENT 06/03/22 [History Last Taken 06/03/22] pregabalin 50 mg capsule 50 mg PO BID PAIN 06/03/22 [History Last Taken 06/03/22] cefdinir 300 mg capsule 300 mg PO Q12H 5 days #10 caps 06/08/22 [Rx Last Taken Unknown] insulin degludec 200 unit/mL (3 mL) subcutaneous pen (Tresiba FlexTouch U-200 insulin) 50 unit (0.25 mL) subcut BID diabetes #9 mL 06/08/22 [Rx Last Taken 06/03/22] insulin lispro 100 unit/mL subcutaneous pen (Humalog KwikPen (U-100) Insulin) See Protocol subcut ACHS #0 mL 06/08/22 [Rx Last Taken Unknown] linezolid 600 mg tablet 600 mg PO BID 7 days #14 tabs 06/08/22 [Rx Last Taken Unknown] sucralfate 1 gram tablet 1 g PO 1HR_ACHS 30 days #0 tabs 06/08/22 [Rx Last Taken Unknown] clopidogrel 75 mg tablet (Plavix) 75 mg PO DAILY #90 tabs 06/30/22 [Rx Last Taken Unknown] ciprofloxacin HCl 500 mg tablet 500 mg PO 07/23/22 [History Last Taken Unknown] Allergy/AdvReac Type Severity Reaction Status Date / Time diphenhydramine Allergy Swelling Verified 07/23/22 12:31 [From Benadryl] Family History Father Heart disease Hypertension Mother Diabetes Hypertension Kidney disease Liver disease Other Arthritis Surgical History 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 Smoking Status: Never smoker alcohol intake: never substance use type: does not use what type of physical activity do you participate in: none ROS ROS ED ROS Narrative Dysuria. No fever. No vomiting. No diarrhea. Review of Systems ROS Unobtainable: Denies due to encephalopathy Constitutional Constitutional ED: Denies chills or fever(s) Eyes Eyes: Denies blurry vision ENT ENT ED: Denies ear pain Cardiovascular Cardiovascular: Denies chest pain Respiratory/Chest Respiratory/Chest: Denies cough or dyspnea Gastrointestinal Gastrointestinal: Denies abdominal pain Genitourinary Genitourinary ED: Reports dysuria; Denies hematuria Musculoskeletal Musculoskeletal: Denies arthralgias or myalgias Integumentary Denies abscess Neurologic Neurologic: Denies headache(s) Psychiatric Psychiatric: Denies anxiety or depression Allergic/Immunologic Allergic/Immunologic ED: Denies mouth swelling EXAM Physical Exam Narrative Exam Narrative: Fabi female no acute distress. Vital signs stable afebrile. at bedside. H EENT exam unremarkable. Moist extremities. Neck nontender no lymphadenopathy. Lungs clear to auscultation bilaterally. Heart regular rhythm rate about 85 no murmur. Chest wall nontender. Abdomen soft,, normal bowel sounds no peritoneal signs. Both right upper right lower quadrant unremarkable. No hernia or mass. No distention. Very minimal suprapubic discomfort. Moving all 4 extremities. Calves are nontender without edema. Neurologically she is awake and alert with no focal motor deficits. Const Vital Signs: 07/23/22 12:27 Temperature 97.8 F Temperature Source Temporal Pulse Rate 86 Respiratory Rate 14 Blood Pressure 125/55 H Blood Pressure Mean 78 Pulse Ox 97 Oxygen Delivery Method Room Air Positive well nourished and well developed; Negative for obese, cachectic, contractures or unkempt General Appearance ED: well developed and NAD; Negative for unkempt, cachectic, contractures, odor of alcohol detected or pallor Nutritional Appearance: Negative for cachectic or obese HEENT Reports moist mucous membranes Negative for trauma or tenderness Eyes PERRL and EOMs intact bilaterally General Eye ED: Negative for pale conjunctiva, scleral icterus or other Neck no lymphadenopathy, supple and no JVD General: Negative for other Thyroid: Negative for tender Lymph Lymphatic: Negative for other Chest Wall inspection of chest normal and palpation of chest normal Chest: Negative for other Resp normal respiratory effort and clear to auscultation bilaterally Effort and Inspection: Negative for pain with movement Auscultation: Negative for rales, rhonchi or wheezes Cardio regular rhythm, S1 normal heart sound, no murmurs and no JVD Rate: Negative for bradycardia or tachycardic GI normal to inspection, nondistended, normoactive bowel sounds, soft to palpation, non-tender, non-distended and no masses Auscultation: normoactive bowel sounds Palpation: Negative for tender, guarding or rigid Back/Spine no CVA tenderness General Back: Negative for CVA tenderness Cervical Spine: Negative for cervical spine tenderness Thoracic Spine / Upper Back: Negative for thoracic spinal tenderness Lumbar Spine / Lower Back: Negative for lumbar spinal tenderness Extremity normal to inspection and full ROM General Extremety ED: Negative for edema or tenderness General Extremity: Negative for edema Neuro oriented x3 and CN's II-XII intact bilaterally Sensorium / Orientation: alert, oriented to person and oriented to place; Negative for oriented to time, confused, lethargic or stuporous Motor Exam: strength 5/5 throughout Psych mental status grossly normal Appearance: Negative for unkempt Attitude: No agitated Speech: No other Mood & Affect: Negative for depressed, anxious or tearful Skin no rashes or lesions noted and no wounds General Skin Exam: Negative for jaundice or pallor Rashes: No rashes noted Trauma: Negative for other MDM MDM MDM Narrative Medical decision making narrative: 32-year-old with dysuria may have a possible UTI. Primary care office sent labs and chart review. I do not see a urinalysis in the computer which we will obtain. Otherwise her exam is benign I do not think she needs any imaging. Patient doing well at 3:13 PM. Given a dose of Cipro. Her primary care physician called her in Cipro. She will be discharged treat as an outpatient for UTI. She has no systemic symptoms. She has no fever and clinically looks well. History & Record Review Discussion w/independent historian: Patient and Significant other Lab Data Attestation: I reviewed the patient's lab results. Lab results narrative: Outpatient CBC showed a white count of 10. H&H of 10 and 34 which is her baseline anemia her hemoglobin is normally run between 9 and 11. Urinalysis consistent with UTI with 5-10 red cells, 25-50 white cells. No epithelial cells. 3+ bacteria. No nitrates. Culture sent. Chemistries from earlier today done as an outpatient showed a sodium 130. Gap of 8. BUN of 34 creatinine 1.1. And glucose elevated 440. Will be given a dose of insulin for that. Bladder scan was only 253. Labs: Laboratory Results - last 24 hr 07/23/22 13:52 Urine Color Yellow Urine Clarity Cloudy Urine pH 6.0 Ur Specific Walker 1.010 Urine Protein 100 H Urine Glucose (UA) 1000 H Urine Ketones Negative Urine Occult Blood 50 H Urine Nitrite Negative Urine Bilirubin Negative Urine Urobilinogen Normal Ur Leukocyte Esterase 500 H Urine RBC 5-10 SEEN Urine WBC 25-50 SEEN Ur Squamous Epith Cells 0-5 SEEN Urine Bacteria 3+ Urine Mucus 0 SEEN Discharge Plan Triage Chief Complaint: Complaint ED Provider: Dominguez Zavala Dx/Rx/DC Orders Clinical Impression: Urinary tract infection, Hyperglycemia due to diabetes mellitus, History of hypertension Instructions: Urinary Tract Infections in Women, ED Diabetic Hyperglycemia Prescriptions: No Action clopidogrel [Plavix] 75 mg tablet 75 mg PO DAILY Qty: 90 3RF Label Comments: STOP 1 DAY PRIOR TO OR lisinopril 10 mg tablet 10 mg PO DAILY omeprazole 40 mg capsule,delayed release(DR/EC) 40 mg PO BID Qty: 60 2RF atorvastatin 40 mg tablet 40 mg PO QHS Label Comments: TAKE 1 TABLET BY MOUTH ONCE DAILY AT BEDTIME metoprolol succinate 50 mg tablet extended release 24 hr 50 mg PO DAILY Label Comments: TAKE 1 TABLET BY MOUTH ONCE DAILY polysaccharide iron complex [iFerex 150] 150 mg iron capsule 150 mg PO DAILY Label Comments: TAKE 1 CAPSULE BY MOUTH ONCE DAILY acetaminophen 500 mg tablet 500 - 1,000 mg PO Q6H PRN (Reason: Pain) Label Comments: TAKE 2 TABLETS BY MOUTH EVERY 8 HOURS FOR 15 DAYS levothyroxine 75 mcg tablet 75 mcg PO DAILY Label Comments: TAKE 1 TABLET BY MOUTH ONCE DAILY citalopram 20 mg tablet 20 mg PO DAILY Label Comments: TAKE 1 TABLET BY MOUTH ONCE DAILY ascorbic acid (vitamin C) [Vitamin C] 500 mg tablet 500 mg PO DAILY Label Comments: TAKE 1 TABLET BY MOUTH ONCE DAILY baclofen 10 mg tablet 10 mg PO BID Label Comments: TAKE 1 TABLET BY MOUTH TWICE DAILY NEEDED FOR BACK SPASM aspirin 81 mg tablet,chewable 81 mg PO DAILY Label Comments: CHEW AND SWALLOW 1 TABLET BY MOUTH ONCE DAILY oxycodone 5 mg tablet 5 mg PO BID Label Comments: TAKE 1 TABLET BY MOUTH TWICE DAILY NEEDED pregabalin 50 mg capsule 50 mg PO BID Label Comments: TAKE 1 CAPSULE BY MOUTH TWICE DAILY linezolid 600 mg Tablet 600 mg PO BID 7 Days Qty: 14 0RF cefdinir 300 mg capsule 300 mg PO Q12H 5 Days Qty: 10 0RF insulin lispro [Humalog KwikPen Insulin] 100 unit/mL Insulin Pen See Protocol subcut ACHS Qty: 0 0RF Protocol: 4. Sliding Scale Insulin High-Med Dosing Condition: 150-199 mg/dl = 2 units Condition: 200-259 mg/dl = 4 units Condition: 260-324 mg/dl = 6 units Condition: 325-374 mg/dl = 8 units Condition: 375-409 mg/dl = 10 units Condition: 410-449 mg/dl = 11 units Condition: Greater than 449 call physician Protocol Text: - Use for Total Daily Dose of Insulin 56-80 units - Patient who are insulin resistant or septic HIGH MEDIUM DOSING ALGORITHM sucralfate 1 gram Tablet 1 g PO 1HR_ACHS 30 Days Qty: 0 0RF insulin degludec [Tresiba FlexTouch U-200] 200 unit/mL (3 mL) insulin pen 50 unit SUBCUT BID Qty: 9 2RF ciprofloxacin HCl 500 mg tablet 500 mg PO Primary Care Provider: Alfonso Carlson Chi Referrals: Alfonso Carlson Chi, MD [Primary Care Provider] - 3-5 Days Activity Restrictions/Additional Instructions: Plenty of fluids and rest. You have a urinary tract infection will be started on antibiotics Cipro. 1 pill twice a day. Take a dose tonight before you go to bed. Your blood sugar was elevated at 440. Watch it closely the next several days. Plenty of water. Take your insulin and other diabetic meds as prescribed. Check your blood sugars 4 times a day for the next several days. Before each meal and at bedtime. Make sure you check it tonight before you go to bed. We gave you an extra dose of insulin here take your normal diabetic meds today. Follow-up with your doctor to ensure you are improving return if feeling worse. Disposition Disposition: Home, Self Care
[2022-07-23 14:15] LABS: Mucous, Urine 0 SEEN /hpf (<or=2+)
[2022-07-23 14:17] LABS: Color, Urine Yellow (Yellow); Glucose, Dipstick 1000 mg/dl (Normal); Ketone-Dipstick Negative (Negative); Leukocyte Esterase-Dipstick 500 /ul (Negative); Nitrite-Dipstick Negative (Negative); Occult Blood-Urine 50 /ul (Negative); Protein-Dipstick 100 mg/dl (Negative); Urine Bilirubin Dipstick Negative (Negative); Urine Clarity Cloudy (Clear); Urine Urobilinogen Normal (Normal)
[2022-07-23 15:05] LABS: Red Blood Cells-Urine 5-10 SEEN /hpf (0-5); Squamous Epithelial Cells - UA 0-5 SEEN /hpf (5-10); White Blood Cells 25-50 SEEN /hpf (0-5)
[2022-07-23 15:06] LABS: Bacteria 3+ /hpf (None Seen)
[2022-07-23] MEDS: Insulin Lispro 100 UNIT/ML INSULN.PEN 12 UNIT SC (15:22)
[2022-07-23] MEDS: Ciprofloxacin 500 MG Tablet PO (15:22)
== END 2022-07-23 15:29 | disposition home or self-care (01) ==
PROVIDERS: Emergency Provider Emergency Medicine; PCP Family Medicine Geriatric Medicine; Visit Provider Emergency Medicine
DX: N39.0 Urinary tract infection, site not specified (principal); E11.65 Type 2 diabetes mellitus with hyperglycemia; R30.0 Dysuria; Z86.718 Personal history of other venous thrombosis and embolism
CPT/HCPCS: 36415; 80048; 81001; 85025; 87077; 87086; 87088; 87186; 99283

== ENCOUNTER → 2022-07-23 | Outpatient (CLI) | payer MEDICARE, SELFPAY ==
[2022-07-23 12:43] LABS: Absolute Lymphocyte Count 3.39 X10^3/uL (0.83-4.51); Absolute Neutrophil Count 6.1 X10^3/uL (2.0-7.7); Basophil# 0.08 X10^3/uL; Basophil% 0.7 % (0-1); Eosinophil# 0.13 X10^3/uL; Eosinophils% 1.2 % (0-5); Hematocrit 34.2 % (37-47); Hemoglobin 10.7 g/dL (12.0-15.0); Lymphocyte # 3.39 X10^3/ul (0.83-4.51); Lymphocyte % 31.4 % (19-41); Mean Corp Hgb Conc 31.3 g/dL (32-36); Mean Corpuscular Hgb 26.6 pg (27.0-32.0); Mean Corpuscular Volume 84.9 fL (81-99); Mean Platelet Vol. 9.6 fl (6.2-12.0); Monocyte# 1.06 X10^3/uL; Monocyte% 9.8 % (0-10); NRBC Flagged by Analyzer 0 % (0-5); Neutrophil # 6.09 X10^3/uL (2.7-7.7); Neutrophil % 56.4 % (47-70); Platelet Count 297 K/mm3 (150-450); RBC Distribution Width CV 15.9 % (11.6-14.6); RBC Distribution Width SD 49.3 fl (35.1-43.9); Red Blood Count 4.03 M/mm3 (4.2-5.4); White Blood Count 10.8 K/mm3 (4.4-11.0)
[2022-07-23 13:27] LABS: Anion Gap 8 (5-15); BUN 34 mg/dL (7-18); BUN/Creat Ratio 29.1 RATIO (10-20); Calcium,Total 9.8 mg/dL (8.5-10.1); Chloride 101 mmol/L (98-107); Creatinine, Serum 1.17 mg/dL (0.55-1.02); EST Glomerular Filtration Rate 48 mL/min (>60); Est Glom Filt Rate - Afr Amer 58 mL/min (>60); Glucose 440 mg/dL (74-106); Sodium Level 130 mmol/L (136-145)
== END | disposition home or self-care (01) ==
LOC: POLAB3 12:14
PROVIDERS: PCP Family Medicine Geriatric Medicine; Visit Provider Family Medicine Geriatric Medicine
DX: R30.0 Dysuria (principal); N39.0 Urinary tract infection, site not specified
CPT/HCPCS: 36415; 80048; 85025; 87077; 87086; 87088; 87186

== ENCOUNTER 2022-09-19 19:42 | Emergency (ER) | payer MEDICARE, SELFPAY ==
[2022-09-19 19:42] VITALS: BP 168/90; PULSE 90; RESP 16; TEMP 36.6; O2SAT 98
[2022-09-19 19:44] VITALS: BMI 19.4
--- NOTE | 2022-09-19 20:06 | EDS_ITS ---
HPI History of Present Illness Chief Complaint: Back Narrative Narrative: 72-year-old female with history of chronic back pain presenting with back pain. She describes it as sharp. She states it does not radiate. She does point to a going across her back however which indicates that it does kind of radiate. She states she is never had pain like this before. Her immediately stated that yes she did. She has seen pain management and she has chronic back pain, however this is higher up than it usually is. She denies any trauma. She denies any loss of bladder or bowel control. She denies saddle anesthesia. She does not have any urinary complaints. She has not been vomiting. She has not had flank pain. Patient states that she has had Tylenol and ibuprofen today and been trying heat. I asked the patient if she needed any assistance for walking and she states he does not usually walk and her corrected her and states she uses a walker at home. [facility] Medical History Arthritis Diabetes Essential (primary) hypertension Gastric reflux High cholesterol History of venous thromboembolism Hormone deficiency Hyperlipidemia PAD (peripheral artery disease) Post-menopausal Seasonal allergies Type 2 diabetes mellitus Wears glasses Home Medications lisinopril 10 mg tablet 10 mg PO DAILY BP 02/17/21 [History Last Taken 06/03/22] omeprazole 40 mg capsule,delayed release 40 mg PO BID #60 caps 04/06/22 [Rx Last Taken 06/03/22] acetaminophen 500 mg tablet 500 - 1,000 mg PO Q6H PRN Pain 06/03/22 [History Last Taken 06/03/22] ascorbic acid (vitamin C) 500 mg tablet (Vitamin C) 500 mg PO DAILY SUPPLEMENT 06/03/22 [History Last Taken 06/03/22] aspirin 81 mg chewable tablet 81 mg PO DAILY HEALTH 06/03/22 [History Last Taken 06/03/22] atorvastatin 40 mg tablet 40 mg PO QHS CHOLESTEROL 06/03/22 [History Last Taken 06/02/22] baclofen 10 mg tablet 10 mg PO BID BACK 06/03/22 [History Last Taken 06/03/22] citalopram 20 mg tablet 20 mg PO DAILY DEPRESSION 06/03/22 [History Last Taken 06/03/22] levothyroxine 75 mcg tablet 75 mcg PO DAILY THYROID 06/03/22 [History Last Taken 06/03/22] metoprolol succinate 50 mg tablet,extended release 24 hr 50 mg PO DAILY HEART 06/03/22 [History Last Taken 06/03/22] oxycodone 5 mg tablet 5 mg PO BID PAIN 06/03/22 [History Last Taken 06/03/22] polysaccharide iron complex 150 mg iron capsule (iFerex 150) 150 mg PO DAILY SUPPLEMENT 06/03/22 [History Last Taken 06/03/22] pregabalin 50 mg capsule 50 mg PO BID PAIN 06/03/22 [History Last Taken 06/03/22] cefdinir 300 mg capsule 300 mg PO Q12H 5 days #10 caps 06/08/22 [Rx Last Taken Unknown] insulin degludec 200 unit/mL (3 mL) subcutaneous pen (Tresiba FlexTouch U-200 insulin) 50 unit (0.25 mL) subcut BID diabetes #9 mL 06/08/22 [Rx Last Taken 06/03/22] insulin lispro 100 unit/mL subcutaneous pen (Humalog KwikPen (U-100) Insulin) See Protocol subcut ACHS #0 mL 06/08/22 [Rx Last Taken Unknown] linezolid 600 mg tablet 600 mg PO BID 7 days #14 tabs 06/08/22 [Rx Last Taken Unknown] sucralfate 1 gram tablet 1 g PO 1HR_ACHS 30 days #0 tabs 06/08/22 [Rx Last Taken Unknown] clopidogrel 75 mg tablet (Plavix) 75 mg PO DAILY #90 tabs 06/30/22 [Rx Last Taken Unknown] ciprofloxacin HCl 500 mg tablet 500 mg PO 07/23/22 [History Last Taken Unknown] cyclobenzaprine 10 mg tablet 10 mg PO TID PRN Muscle Spasm #20 TABLETS 09/19/22 [Rx Last Taken Unknown] lidocaine 5 % topical patch 1 patch topical DAILY PRN pain #15 ea 09/19/22 [Rx Last Taken Unknown] Allergy/AdvReac Type Severity Reaction Status Date / Time diphenhydramine Allergy Swelling Verified 09/19/22 19:44 [From Benadryl] Family History Father Heart disease Hypertension Mother Diabetes Hypertension Kidney disease Liver disease Other Arthritis Surgical History 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 Smoking Status: Never smoker alcohol intake: never substance use type: does not use what type of physical activity do you participate in: none ROS ROS ED Constitutional Constitutional ED: Denies chills or fever(s) Eyes Eyes: Denies change in vision ENT ENT ED: Denies rhinorrhea Cardiovascular Cardiovascular: Denies chest pain or palpitations Respiratory/Chest Respiratory/Chest: Denies dyspnea or dyspnea on exertion Gastrointestinal Gastrointestinal: Denies abdominal pain Genitourinary Genitourinary ED: Denies dysuria or hematuria Musculoskeletal Musculoskeletal: Reports back pain; Denies myalgias or neck pain Integumentary Denies abscess or Abrasions Neurologic Neurologic: Denies headache(s) Psychiatric Psychiatric: Denies anxiety or depression EXAM Physical Exam Const Vital Signs: 09/19/22 19:42 09/19/22 22:04 Temperature 97.9 F Temperature Source Temporal Pulse Rate 90 68 Respiratory Rate 16 18 Blood Pressure 168/90 H 123/67 H Blood Pressure Mean 116 Pulse Ox 98 97 Oxygen Delivery Method Room Air Positive well nourished General Appearance ED: NAD; Negative for pallor HEENT Reports moist mucous membranes Eyes PERRL and EOMs intact bilaterally Neck no lymphadenopathy Resp normal respiratory effort and clear to auscultation bilaterally Cardio regular rate and regular rhythm Back/Spine Back/Spine Narrative: Tenderness to palpation T10-T11. No midline spinal deformity, step-off. No bruising. No rash. Patient was able to stand and walk around the room with some difficulty but she did not have her walker Neuro oriented x3 and no sensory deficits noted Sensorium / Orientation: alert Motor Exam: strength 5/5 throughout Psych mental status grossly normal Skin no rashes or lesions noted General Skin Exam: Negative for jaundice or pallor MDM MDM MDM Narrative Medical decision making narrative: Patient presenting with back pain. It is new in nature because it is higher than usual per the patient and her . The pain sensation is the same. Denies any direct trauma. Patient ambulatory. Patient treated with Toradol and Norflex. Will obtain x-rays of the lumbar spine and thoracic spine. Patient feeling somewhat improved after treatment but still has pain. Her x-rays were negative for acute findings. Discussed this with the patient as this is a chronic condition. I recommended that if she needed more than muscle relaxers that she would need to follow-up with her pain management physician. Patient was discharged home in stable condition. Impression: 1. Acute on chronic back pain Radiography Diagnostic Testing: Clinical Impression(s) from Imaging Studies Lumbar Spine X-Ray 09/19/22 20:21 IMPRESSION: Stable degenerative disc changes at L4-5 and L5-S1. Transitional vertebral body which 8 predispose to back pain. Electronically Signed: Iron Valdez MD at 21:18 EDT , Thoracic Spine X-Ray 09/19/22 20:21 IMPRESSION: No acute findings or significant interval change from the prior examination. Electronically Signed: Iron Valdez MD at 21:21 EDT , Discharge Plan Triage Chief Complaint: Back ED Provider: Kalpesh Burt Dx/Rx/DC Orders Prescriptions: New cyclobenzaprine 10 mg tablet 10 mg PO TID PRN (Reason: Muscle Spasm) Qty: 20 0RF lidocaine 5 % adhesive patch,medicated 1 patch topical DAILY PRN (Reason: pain) Qty: 15 0RF Rx Instructions: leave on most painful area for up to 12 hrs No Action clopidogrel [Plavix] 75 mg tablet 75 mg PO DAILY Qty: 90 3RF Label Comments: STOP 1 DAY PRIOR TO OR lisinopril 10 mg tablet 10 mg PO DAILY omeprazole 40 mg capsule,delayed release(DR/EC) 40 mg PO BID Qty: 60 2RF atorvastatin 40 mg tablet 40 mg PO QHS Label Comments: TAKE 1 TABLET BY MOUTH ONCE DAILY AT BEDTIME metoprolol succinate 50 mg tablet extended release 24 hr 50 mg PO DAILY Label Comments: TAKE 1 TABLET BY MOUTH ONCE DAILY polysaccharide iron complex [iFerex 150] 150 mg iron capsule 150 mg PO DAILY Label Comments: TAKE 1 CAPSULE BY MOUTH ONCE DAILY acetaminophen 500 mg tablet 500 - 1,000 mg PO Q6H PRN (Reason: Pain) Label Comments: TAKE 2 TABLETS BY MOUTH EVERY 8 HOURS FOR 15 DAYS levothyroxine 75 mcg tablet 75 mcg PO DAILY Label Comments: TAKE 1 TABLET BY MOUTH ONCE DAILY citalopram 20 mg tablet 20 mg PO DAILY Label Comments: TAKE 1 TABLET BY MOUTH ONCE DAILY ascorbic acid (vitamin C) [Vitamin C] 500 mg tablet 500 mg PO DAILY Label Comments: TAKE 1 TABLET BY MOUTH ONCE DAILY baclofen 10 mg tablet 10 mg PO BID Label Comments: TAKE 1 TABLET BY MOUTH TWICE DAILY NEEDED FOR BACK SPASM aspirin 81 mg tablet,chewable 81 mg PO DAILY Label Comments: CHEW AND SWALLOW 1 TABLET BY MOUTH ONCE DAILY oxycodone 5 mg tablet 5 mg PO BID Label Comments: TAKE 1 TABLET BY MOUTH TWICE DAILY NEEDED pregabalin 50 mg capsule 50 mg PO BID Label Comments: TAKE 1 CAPSULE BY MOUTH TWICE DAILY linezolid 600 mg Tablet 600 mg PO BID 7 Days Qty: 14 0RF cefdinir 300 mg capsule 300 mg PO Q12H 5 Days Qty: 10 0RF insulin lispro [Humalog KwikPen Insulin] 100 unit/mL Insulin Pen See Protocol subcut ACHS Qty: 0 0RF Protocol: 4. Sliding Scale Insulin High-Med Dosing Condition: 150-199 mg/dl = 2 units Condition: 200-259 mg/dl = 4 units Condition: 260-324 mg/dl = 6 units Condition: 325-374 mg/dl = 8 units Condition: 375-409 mg/dl = 10 units Condition: 410-449 mg/dl = 11 units Condition: Greater than 449 call physician Protocol Text: - Use for Total Daily Dose of Insulin 56-80 units - Patient who are insulin resistant or septic HIGH MEDIUM DOSING ALGORITHM sucralfate 1 gram Tablet 1 g PO 1HR_ACHS 30 Days Qty: 0 0RF insulin degludec [Tresiba FlexTouch U-200] 200 unit/mL (3 mL) insulin pen 50 unit SUBCUT BID Qty: 9 2RF ciprofloxacin HCl 500 mg tablet 500 mg PO Primary Care Provider: Alfonso Carlson Chi Referrals: Alfonso Carlson Chi, MD [Primary Care Provider] - Disposition Disposition: Home, Self Care
[2022-09-19] MEDS: Ketorolac 15 MG/ML Vial IM (20:15)
[2022-09-19] MEDS: Orphenadrine 60 MG/2 ML Ampul IM (20:15)
--- NOTE | 2022-09-19 20:21 | RAD_ITS ---
INDICATION: pain EXAMINATION/TECHNIQUE: X-RAY - XR Spine Thoracic 3 Views COMPARISON: 03/22/2022 FINDINGS: VERTEBRAE: Preserved vertebral body height. No acute fracture. No spondylolisthesis. Preservation of the normal thoracic kyphosis. DISCS: Disc spaces are maintained. INCLUDED CHEST/ABDOMEN: No acute abnormalities. RAD/Thoracic Spine 3 Views IMPRESSION: No acute findings or significant interval change from the prior examination. Electronically Signed: Iron Valdez MD at 21:21 EDT ,
--- NOTE | 2022-09-19 20:21 | RAD_ITS ---
INDICATION: back pain EXAMINATION/TECHNIQUE: X-RAY - XR Spine Lumbar 2 or 3 Views COMPARISON: 02/17/2021 FINDINGS: VERTEBRAE: Preserved vertebral body height. No acute fracture. 6 nonrib-bearing vertebral bodies again noted. Stable 3 mm spondylolisthesis at L4-5. Preservation of the normal lumbar lordosis. DISCS: Stable disc space narrowing at L4-5 and L5-S1 INCLUDED ABDOMEN: Included bowel gas pattern is non-obstructive. RAD/Lumbar Spine 2 or 3 Views IMPRESSION: Stable degenerative disc changes at L4-5 and L5-S1. Transitional vertebral body which 8 predispose to back pain. Electronically Signed: Iron Valdez MD at 21:18 EDT ,
[2022-09-19 22:04] VITALS: BP 123/67; PULSE 68; RESP 18; O2SAT 97
== END 2022-09-19 23:02 | disposition home or self-care (01) ==
PROVIDERS: Emergency Provider Student in an Organized Health Care Education/Training Program; PCP Family Medicine Geriatric Medicine; Visit Provider Student in an Organized Health Care Education/Training Program
DX: M54.9 Dorsalgia, unspecified (principal); E11.9 Type 2 diabetes mellitus without complications; Z79.4 Long term (current) use of insulin; G89.29 Other chronic pain; I10 Essential (primary) hypertension; E78.00 Pure hypercholesterolemia, unspecified; Z86.718 Personal history of other venous thrombosis and embolism; Z79.82 Long term (current) use of aspirin; Z79.899 Other long term (current) drug therapy
CPT/HCPCS: 72072; 72100; 96372; 99282

== ENCOUNTER 2023-05-15 20:37 | Inpatient (IN) | payer MEDICARE, SELFPAY ==
[2023-05-15] VITALS (7 sets, daily range): BP systolic 67–132; BP diastolic 49–79; PULSE 96–173; RESP 13–36; TEMP 35.5; O2SAT 94–100; BMI 24.5
--- NOTE | 2023-05-15 20:55 | EKG12_ITS ---
Test Reason : CP Blood Pressure : / mmHG Vent. Rate : 174 BPM Atrial Rate : 174 BPM P-R Int : 120 ms QRS Dur : 078 ms QT Int : 264 ms P-R-T Axes : 019 -25 216 degrees QTc Int : 449 ms Critical Test Result: High HR Supraventricular tachycardia Low voltage QRS Septal infarct , age undetermined ST & T wave abnormality, consider inferolateral ischemia Abnormal ECG Confirmed by Nhan Shaw ([id number]), web content editor CHECO VELASCO ([id number]) on 05/17/2023 9:11:33 AM Referred By: ARNOLD Confirmed By:Nhan Shaw
--- NOTE | 2023-05-15 20:57 | ED.VIS.CHEST ---
HPI History of Present Illness Chief Complaint: Chest Pain Informant: patient and spouse/S.O. Narrative Narrative: Patient presents with chest pain. She was just discharged from the hospital yesterday at [facility] after about 9 days to for an ulcer on the left foot. That is doing well. But this patient also has a history of significant coronary artery disease and three-vessel bypass. About an hour ago she was just sitting on the couch and got sudden onset of discomfort in her chest. Mild dyspnea. No syncope or lightheadedness. Occasionally she can feel that her heart rate is going quickly. No back pain. No numbness tingling peripherally. No abdominal pain. No real nausea. Patient had been on Eliquis but is no longer. She has been off of this during her hospitalization. Likely because she had a pleural effusion that was drained. She had thoracentesis on May 09 was found to be transudative. She was sent home on doxycycline for a wound to her left leg that was debrided. This was the reason for her admission. [facility] Medical History Arthritis Diabetes Diabetic ulcer of ankle Essential (primary) hypertension Gastric reflux High cholesterol History of venous thromboembolism Hormone deficiency Hyperlipidemia PAD (peripheral artery disease) Post-menopausal Seasonal allergies Type 2 diabetes mellitus Ulcer Wears glasses Home Medications lisinopril 10 mg tablet 10 mg PO DAILY BP 02/17/21 [History Last Taken 06/03/22] omeprazole 40 mg capsule,delayed release 40 mg PO BID #60 caps 04/06/22 [Rx Last Taken 06/03/22] acetaminophen 500 mg tablet 500 - 1,000 mg PO Q6H PRN Pain 06/03/22 [History Last Taken 06/03/22] ascorbic acid (vitamin C) 500 mg tablet (Vitamin C) 500 mg PO DAILY SUPPLEMENT 06/03/22 [History Last Taken 06/03/22] aspirin 81 mg chewable tablet 81 mg PO DAILY HEALTH 06/03/22 [History Last Taken 06/03/22] atorvastatin 40 mg tablet 40 mg PO QHS CHOLESTEROL 06/03/22 [History Last Taken 06/02/22] baclofen 10 mg tablet 10 mg PO BID BACK 06/03/22 [History Last Taken 06/03/22] citalopram 20 mg tablet 20 mg PO DAILY DEPRESSION 06/03/22 [History Last Taken 06/03/22] levothyroxine 75 mcg tablet 75 mcg PO DAILY THYROID 06/03/22 [History Last Taken 06/03/22] metoprolol succinate 50 mg tablet,extended release 24 hr 50 mg PO DAILY HEART 06/03/22 [History Last Taken 06/03/22] oxycodone 5 mg tablet 5 mg PO BID PAIN 06/03/22 [History Last Taken 06/03/22] polysaccharide iron complex 150 mg iron capsule (iFerex 150) 150 mg PO DAILY SUPPLEMENT 06/03/22 [History Last Taken 06/03/22] pregabalin 50 mg capsule 50 mg PO BID PAIN 06/03/22 [History Last Taken 06/03/22] cefdinir 300 mg capsule 300 mg PO Q12H 5 days #10 caps 06/08/22 [Rx Last Taken Unknown] insulin degludec 200 unit/mL (3 mL) subcutaneous pen (Tresiba FlexTouch U-200 insulin) 50 unit (0.25 mL) subcut BID diabetes #9 mL 06/08/22 [Rx Last Taken 06/03/22] insulin lispro 100 unit/mL subcutaneous pen (Humalog KwikPen (U-100) Insulin) See Protocol subcut ACHS #0 mL 06/08/22 [Rx Last Taken Unknown] linezolid 600 mg tablet 600 mg PO BID 7 days #14 tabs 06/08/22 [Rx Last Taken Unknown] sucralfate 1 gram tablet 1 g PO 1HR_ACHS 30 days #0 tabs 06/08/22 [Rx Last Taken Unknown] clopidogrel 75 mg tablet (Plavix) 75 mg PO DAILY #90 tabs 06/30/22 [Rx Last Taken Unknown] ciprofloxacin HCl 500 mg tablet 500 mg PO 07/23/22 [History Last Taken Unknown] cyclobenzaprine 10 mg tablet 10 mg PO TID PRN Muscle Spasm #20 TABLETS 09/19/22 [Rx Last Taken Unknown] lidocaine 5 % topical patch 1 patch topical DAILY PRN pain #15 ea 09/19/22 [Rx Last Taken Unknown] Allergy/AdvReac Type Severity Reaction Status Date / Time diphenhydramine Allergy Swelling Verified 09/19/22 19:44 [From Gabi] Family History Father Heart disease Hypertension Mother Diabetes Hypertension Kidney disease Liver disease Other Arthritis Surgical History 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 Smoking Status: Never smoker alcohol intake: never substance use type: does not use what type of physical activity do you participate in: none ROS ROS ED ROS Narrative A complete review of systems was performed and is negative except as documented in the history of present illness. Some specific details below. Constitutional: No recent fevers or chills. Wounds were doing well. EYE: No visual complaints ENT: No difficulty swallowing. No GERD. No neck pain. CV: See history of present illness. Respiratory: See history of present illness. Mild dyspnea with this GI: No abdominal pain. No nausea vomiting diarrhea. No blood in stool. : No frequency dysuria or hematuria. Musculoskeletal: Prior right transmetatarsal amputation due to diabetes. Recent left lower extremity ulcer and infection. Skin: No rash. Nondiaphoretic. Neuro: No weakness or numbness. Endocrine: No polyuria or polydipsia. EXAM Physical Exam Narrative Exam Narrative: CONSTITUTIONAL: Patient is nontoxic in appearance. The patient looks comfortable. Work of breathing looks normal. HEENT: No notable trauma. Mucous membranes moist. No sinus tenderness. No indication of pain with swallowing. EYES: No conjunctival injection. No proptosis. NECK:No JVD. No stridor. CARDIOVASCULAR: Very tachycardic rate that does sound very regular. RESPIRATORY: No respiratory distress. Breathing is unlabored. No wheezes. Saturations are actually preserved. She also has midline sternotomy well-healed. GASTROINTESTINAL: Not distended. Bowel sounds are normal. No tenderness. Her rectal exam showed a stage I decub at the sacrum. But no bleeding. Stool was light to medium brown. There is only a small amount. No active bleeding or blood at all seen. Hemoccult/I fob is sent off. GENITOURINARY: No tenderness over the bladder. MUSCULOSKELETAL: Left leg is fully wrapped at this point due to specialized dressings. This was not done. NEUROLOGICAL: Patient is alert and appropriate. No focal deficit noted. Patient is mentating normally at this time. SKIN: No noted rashes. No diaphoresis. PSYCHIATRIC: Patient is calm. Mood is appropriate. Const Vital Signs: 05/15/23 20:39 05/15/23 20:44 05/15/23 20:49 Temperature 96 F L Temperature Source Temporal Pulse Rate 172 H 173 H Respiratory Rate 36 H 20 H Respiratory Effort Short of Breath Blood Pressure 69/49 L Blood Pressure Mean 55 Pulse Ox 94 Oxygen Delivery Method Room Air 05/15/23 21:31 05/15/23 21:08 05/15/23 21:25 Temperature Temperature Source Pulse Rate 98 170 H 102 H Respiratory Rate 13 36 H 16 Respiratory Effort Blood Pressure 112/78 67/55 L 122/77 H Blood Pressure Mean 89 59 92 Pulse Ox 100 98 100 Oxygen Delivery Method Nasal Cannula Nasal Cannula 05/15/23 22:00 05/15/23 23:00 05/16/23 00:00 Temperature Temperature Source Pulse Rate 100 96 99 Respiratory Rate 13 16 18 Respiratory Effort Blood Pressure 131/73 H 132/79 H 181/88 H Blood Pressure Mean 92 96 119 Pulse Ox 96 96 100 Oxygen Delivery Method 05/16/23 01:00 Temperature Temperature Source Pulse Rate 93 Respiratory Rate 13 Respiratory Effort Blood Pressure 147/85 H Blood Pressure Mean 105 Pulse Ox 100 Oxygen Delivery Method MDM MDM MDM Narrative Medical decision making narrative: We are initially needing IV fluids first. I then talked to the patient and . This patient has tachycardia with chest pain dyspnea and hypotension. We plan to put pads on her we will likely cardiovert her. She is off Eliquis for some unknown number of days. We may try adenosine but we will get pads on her first. We discussed risk benefits options. We had fentanyl ready in case we needed to cardiovert. We had IV in place. We had pads on and the patient monitor. We gave her 6 mg of adenosine. She got a pause. She then restarted her heart rate initially at about 65 but now it stabilized at about 95 or 100. It appears to be normal sinus. There is an occasional PAC. I only saw 1 PVC. When she went back into normal sinus rhythm with better rate, her blood pressure is now up to 122 systolic. She states the chest pain is gone. She is actually able to smile and feels markedly better. We are pending further workup still. I was able to access some records from [facility]. On the she had a hemoglobin of 9.4 and on the ninth it was 10.1. She had had a white count of 5.64 and then 5.9 before that. Her platelets were 107,000 then 121,000 on the ninth. I also find that the patient had been on antibiotics both linezolid and meropenem. Linezolid is associated with occasional pancytopenia. Doxycycline can also be associated with this. It is less likely with meropenem. Patient denied any black bloody stools. She states she had a normal formed stool in the morning. But then her reminded her that she had a soft stool a little bit before her episode of chest pain and palpitation. He stated that the stool was darker. He would not say that it was black. There is no red in it. But he states it was dark and did not look fully brown. She has had no further bowel movements and has no pain or cramping in the abdomen. CBC shows marked abnormalities with pancytopenia with a white count of 3.8, hemoglobin of 5.4, platelets at 39,000. Lactate is a bit high at 2.3 but her blood pressure is markedly better now and has remained stable after chemical cardioversion with adenosine. We did redraw her labs. But her electrolytes do show mildly elevated sodium at 149. Creatinine is preserved. Glucose is normal at 101. Patient's troponin was a bit high at 190. But considering she is anemic, tachycardic, hypotensive this is not markedly elevated. Her EKG is not pointing to any acute ST change and she has no chest pain or dyspnea now. I did talk with the patient about transfusion. We did a rectal exam that showed light lezama stool but only a tiny amount. It did not look black. We are waiting to see if it is Hemoccult positive. But if the patient lost 4 g of blood into her GI tract I would expect that to be coming out with significant symptoms. She does have a small effusion on the right but this would not likely be drained and she already had it drained on the fifth. I do not think there is enough fluid in there to point to blood. There is no pain or dyspnea at this time. I am concerned that the patient could have some GI bleeding but she may also have pancytopenia from drug. This is most likely I believe from antibiotics. With her symptoms, elevated troponin, low blood counts I think she does need to come in the hospital. But ever since we gave her adenosine her heart rate has been normal, blood pressure normal, saturations normal and she states she feels well now. Lab Data Attestation: I reviewed the patient's lab results. Labs: Laboratory Results - last 24 hr 05/15/23 05/15/23 05/15/23 21:34 22:28 23:09 WBC 3.8 L RBC 2.26 L Hgb 5.4 L* Hct 19.0 L MCV 84.1 MCH 23.9 L MCHC 28.4 L RDW Std Deviation 70.9 H RDW Coeff of Melvina 23.9 H Plt Count 39 L* MPV 10.2 Immature Gran % (Auto) 0.500 Neut % (Auto) 43.6 L Lymph % (Auto) 47.0 H Harmon % (Auto) 4.2 Eos % (Auto) 3.7 Baso % (Auto) 1.0 Absolute Neuts (auto) 1.7 L Absolute Lymphs (auto) 1.80 Nucleated RBC % 0 Differential Comment SCANNED Diff Path Review May foll Sodium Cancelled 149 H Potassium Cancelled 4.8 Chloride Cancelled 118 H Carbon Dioxide Cancelled 25.0 Anion Gap Cancelled 6 BUN Cancelled 21 H Creatinine Cancelled 1.02 Estim Creat Clear Calc Cancelled 41.54 Est GFR (MDRD) Af Amer Cancelled 68 Est GFR (MDRD) Non-Af Cancelled 56 L BUN/Creatinine Ratio Cancelled 20.6 H Glucose Cancelled 101 Lactic Acid 2.3 H* Calcium Cancelled 8.2 L Troponin I High Sens Cancelled 190 H* Blood Type O POSITIVE Crossmatch See Detail Radiography Diagnostic Testing: Clinical Impression(s) from Imaging Studies Chest X-Ray 05/15/23 21:08 IMPRESSION: Moderate right pleural effusion with basilar consolidation. Mild left effusion and basilar infiltrate. Electronically Signed: Dimitri Thayer DO at 22:31 EST Reading Location ID and State: [facility] / [place] Tel [phone], Service support , Critical Care Time Critical Care Time: Yes Critical care time (excluding procedures): 30-74 minutes, Including time spent:, Discussing w/Patient &/or Family/Automotive Shop [employer], Discussing w/Consultants, Arranging Admission or Transfer, Performing Direct Patient Care at Bedside and - (45 minutes, frequent rechecks, searching old records,Charting, consultation, bedside care) Discharge Plan Dx/Rx/DC Orders Clinical Impression: Pancytopenia, Supraventricular tachycardia, Elevated troponin, Chest pain Disposition Disposition: Acute Care [facility]
--- NOTE | 2023-05-15 21:08 | RAD_ITS ---
INDICATION: CP EXAMINATION/TECHNIQUE: X-RAY - XR Chest 1 View COMPARISON: April 07, 2022 FINDINGS: LINES/DEVICES: Sternotomy wires over the mediastinum. LUNGS: Moderate right pleural effusion with basilar consolidation. Mild left effusion and basilar infiltrate. No pneumothorax. MEDIASTINUM AND CARDIOVASCULAR STRUCTURES: Cardiac silhouette not enlarged. Central airways and mediastinal contour are unremarkable. BONES AND SOFT TISSUES: Unremarkable. RAD/Chest 1 View (Portable) IMPRESSION: Moderate right pleural effusion with basilar consolidation. Mild left effusion and basilar infiltrate. Electronically Signed: Dimitri Thayer DO at 22:31 EST Reading Location ID and State: [facility] / [place] Tel [phone], Service support ,
[2023-05-15] MEDS: 0.9% Normal Saline (1000mL) 1,000 ML 1000 ML IV (21:09)
[2023-05-15] MEDS: Adenosine 6 MG/2 ML Syringe IV (21:22)
--- NOTE | 2023-05-15 21:27 | EKG12_ITS ---
Test Reason : REPEAT Blood Pressure : / mmHG Vent. Rate : 096 BPM Atrial Rate : 096 BPM P-R Int : 130 ms QRS Dur : 070 ms QT Int : 384 ms P-R-T Axes : 031 -08 145 degrees QTc Int : 485 ms Sinus rhythm with Premature atrial complexes Low voltage QRS Cannot rule out Septal infarct , age undetermined Abnormal ECG Confirmed by Nhan Shaw ([id number]), health editor CHECO VELASCO ([id number]) on 05/17/2023 9:11:51 AM Referred By: Confirmed By:Nhan Shaw
[2023-05-15 21:42] LABS: Absolute Neutrophil Count 1.7 X10^3/uL (2.0-7.7); Basophil# 0.04 X10^3/uL; Eosinophil# 0.14 X10^3/uL; Eosinophils% 3.7 % (0-5); Mean Corp Hgb Conc 28.4 g/dL (32-36); Mean Corpuscular Hgb 23.9 pg (27.0-32.0); Mean Corpuscular Volume 84.1 fL (81-99); Mean Platelet Vol. 10.2 fl (6.2-12.0); Monocyte# 0.16 X10^3/uL; Monocyte% 4.2 % (0-10); NRBC Flagged by Analyzer 0 % (0-5); Neutrophil # 1.67 X10^3/uL (2.7-7.7); Neutrophil % 43.6 % (47-70); POSITIVE COUNT YES; POSITIVE MORPHOLOGY YES; RBC Distribution Width CV 23.9 % (11.6-14.6); RBC Distribution Width SD 70.9 fl (35.1-43.9); Red Blood Count 2.26 M/mm3 (4.2-5.4); White Blood Count 3.8 K/mm3 (4.4-11.0)
[2023-05-15 21:46] LABS: Differential Indicated SCAN CRITERIA MET
[2023-05-15 21:47] LABS: Hemoglobin 5.4 g/dL (12.0-15.0); Platelet Count 39 K/mm3 (150-450)
[2023-05-15 22:24] LABS: Differential Comment SCANNED
[2023-05-15 22:49] LABS: Lactic Acid 2.3 mmol/L (0.4-1.9)
[2023-05-15 23:57] LABS: Anion Gap 6 (5-15); BUN 21 mg/dL (7-18); BUN/Creat Ratio 20.6 RATIO (10-20); Calcium,Total 8.2 mg/dL (8.5-10.1); Chloride 118 mmol/L (98-107); Creatinine, Serum 1.02 mg/dL (0.55-1.02); EST Glomerular Filtration Rate 56 mL/min (>60); Est Glom Filt Rate - Afr Amer 68 mL/min (>60); Estimated Creatinine Clearance 41.54 ml/min; Glucose 101 mg/dL (74-106); Potassium 4.8 mmol/L (3.5-5.1); Sodium Level 149 mmol/L (136-145); Troponin-I HS (w/2H Reflex) 190 pg/mL (3.0-54.0)
[2023-05-16] VITALS (21 sets, daily range): BP systolic 114–181; BP diastolic 67–122; PULSE 61–103; RESP 12–24; TEMP 36.2–36.9; O2SAT 95–100; BMI 24.7; BMI 24.9
--- NOTE | 2023-05-16 01:02 | HP.PCM.HOS_ITS ---
HPI - General General Date of Admission: 05/16/23 Date of Service: 05/16/23 Chief Complaint: Chest pain lasted for about 2 hours HPI Narrative YENNY LUGO, is a 73 F came to ED for chest pain which was sharp midsternal with radiated to precordium and left upper extremity associated with mild shortness of breath. No dizziness syncope. She felt heart racing. No diaphoresis, numbness or tingling. In ED, she was found to have SVT heart rate 172/min, blood pressure 69/40 and was was thought of cardioverting but patient blood pressure came up and was given adenosine 6 mg and was converted to normal sinus rhythm. Patient was DC'd with 1 L of IV fluid normal saline. Most recent vitals shows heart rate 93/min blood pressure 147/85. Chest pain is resolved, lasted for 2 hours. She has history of triple bypass surgery. Prior to this she was admitted for 9 days and hypertension well and was discharged about 2 days ago. She was therefore mainly left diabetic foot ulcer but was found to have also right pleural effusion which required thoracocentesis and fluid analysis was transudative. Overall patient was treated with IV meropenem and linezolid there that discharged on linezolid. In ED, patient was found to have severe pancytopenia, all 3 cell lines low hemoglobin 5.4 and platelet count 39,000. Hematology workup for anemia ordered. 1 unit of PRBC transfusion going on and patient further admitted in PCU [facility] Medical History Arthritis Diabetes Diabetic ulcer of ankle Essential (primary) hypertension Gastric reflux High cholesterol History of venous thromboembolism Hormone deficiency Hyperlipidemia PAD (peripheral artery disease) Post-menopausal Seasonal allergies Type 2 diabetes mellitus Ulcer Wears glasses Home Medications lisinopril 10 mg tablet 10 mg PO DAILY BP 02/17/21 [History Last Taken 06/03/22] omeprazole 40 mg capsule,delayed release 40 mg PO BID #60 caps 04/06/22 [Rx Last Taken 06/03/22] acetaminophen 500 mg tablet 500 - 1,000 mg PO Q6H PRN Pain 06/03/22 [History Last Taken 06/03/22] ascorbic acid (vitamin C) 500 mg tablet (Vitamin C) 500 mg PO DAILY SUPPLEMENT 06/03/22 [History Last Taken 06/03/22] aspirin 81 mg chewable tablet 81 mg PO DAILY HEALTH 06/03/22 [History Last Taken 06/03/22] atorvastatin 40 mg tablet 40 mg PO QHS CHOLESTEROL 06/03/22 [History Last Taken 06/02/22] baclofen 10 mg tablet 10 mg PO BID BACK 06/03/22 [History Last Taken 06/03/22] citalopram 20 mg tablet 20 mg PO DAILY DEPRESSION 06/03/22 [History Last Taken 06/03/22] levothyroxine 75 mcg tablet 75 mcg PO DAILY THYROID 06/03/22 [History Last Taken 06/03/22] metoprolol succinate 50 mg tablet,extended release 24 hr 50 mg PO DAILY HEART 06/03/22 [History Last Taken 06/03/22] oxycodone 5 mg tablet 5 mg PO BID PAIN 06/03/22 [History Last Taken 06/03/22] polysaccharide iron complex 150 mg iron capsule (iFerex 150) 150 mg PO DAILY SUPPLEMENT 06/03/22 [History Last Taken 06/03/22] pregabalin 50 mg capsule 50 mg PO BID PAIN 06/03/22 [History Last Taken 06/03/22] cefdinir 300 mg capsule 300 mg PO Q12H 5 days #10 caps 06/08/22 [Rx Last Taken Unknown] insulin degludec 200 unit/mL (3 mL) subcutaneous pen (Tresiba FlexTouch U-200 insulin) 50 unit (0.25 mL) subcut BID diabetes #9 mL 06/08/22 [Rx Last Taken 06/03/22] insulin lispro 100 unit/mL subcutaneous pen (Humalog KwikPen (U-100) Insulin) See Protocol subcut ACHS #0 mL 06/08/22 [Rx Last Taken Unknown] linezolid 600 mg tablet 600 mg PO BID 7 days #14 tabs 06/08/22 [Rx Last Taken Unknown] sucralfate 1 gram tablet 1 g PO 1HR_ACHS 30 days #0 tabs 06/08/22 [Rx Last Taken Unknown] clopidogrel 75 mg tablet (Plavix) 75 mg PO DAILY #90 tabs 06/30/22 [Rx Last Taken Unknown] ciprofloxacin HCl 500 mg tablet 500 mg PO 07/23/22 [History Last Taken Unknown] cyclobenzaprine 10 mg tablet 10 mg PO TID PRN Muscle Spasm #20 TABLETS 09/19/22 [Rx Last Taken Unknown] lidocaine 5 % topical patch 1 patch topical DAILY PRN pain #15 ea 09/19/22 [Rx Last Taken Unknown] Allergy/AdvReac Type Severity Reaction Status Date / Time diphenhydramine Allergy Swelling Verified 09/19/22 19:44 [From Benadryl] Family History Father Heart disease Hypertension Mother Diabetes Hypertension Kidney disease Liver disease Other Arthritis Surgical History 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 Smoking Status: Never smoker alcohol intake: never substance use type: does not use what type of physical activity do you participate in: none ROS ROS Narrative Constitutional: Reports fatigue and weakness. Recent hospitalization in [facility] as described in HPI. No fever for last 2 to 3 days HEENT: Reports systems reviewed and no addt'l complaints, except as documented Respiratory/Chest: As described in HPI. Never been a smoker CVS: As described in HPI Gastrointestinal: Denies coffee ground emesis, hematemesis or vomiting Genitourinary: Denies burning urination or new urinary tract symptoms Musculoskeletal: Right foot surgery. Denies acute joint pain or limited range of motion. No acute injury Neurologic: Denies seizure-like symptoms. Chronic diabetic neuropathy skin: Left foot ulcer s/p debridement. Endocrinology: DM type II reports systems reviewed and no addt'l complaints, except as documented Hematologic/Lymphatic: Reports systems reviewed and no addt'l complaints, except as documented Rest 14 ROS are negative except as mentioned in HPI Vital Signs Vital Signs Vital Signs: 05/15/23 20:39 05/15/23 20:44 05/15/23 20:49 Temperature 96 F L Temperature Source Temporal Pulse Rate 172 H 173 H Respiratory Rate 36 H 20 H Respiratory Effort Short of Breath Blood Pressure 69/49 L Blood Pressure Mean 55 Pulse Ox 94 Oxygen Delivery Method Room Air 05/15/23 21:31 05/15/23 21:08 05/15/23 21:25 Temperature Temperature Source Pulse Rate 98 170 H 102 H Respiratory Rate 13 36 H 16 Respiratory Effort Blood Pressure 112/78 67/55 L 122/77 H Blood Pressure Mean 89 59 92 Pulse Ox 100 98 100 Oxygen Delivery Method Nasal Cannula Nasal Cannula 05/15/23 22:00 05/15/23 23:00 05/16/23 00:00 Temperature Temperature Source Pulse Rate 100 96 99 Respiratory Rate 13 16 18 Respiratory Effort Blood Pressure 131/73 H 132/79 H 181/88 H Blood Pressure Mean 92 96 119 Pulse Ox 96 96 100 Oxygen Delivery Method Weight Weight: 134 lb 0.657 oz Body Mass Index (BMI) 24.5 Results Lab / Micro Data 05/15/23 21:34 05/15/23 23:09 Labs: Laboratory Results - last 24 hr 05/15/23 21:34: WBC 3.8 L, RBC 2.26 L, Hgb 5.4 L*, Hct 19.0 L, MCV 84.1, MCH 23.9 L, MCHC 28.4 L, RDW Std Deviation 70.9 H, RDW Coeff of Melvina 23.9 H, Plt Count 39 L*, MPV 10.2, Immature Gran % (Auto) 0.500, Neut % (Auto) 43.6 L, Lymph % (Auto) 47.0 H, [place] % (Auto) 4.2, Eos % (Auto) 3.7, Baso % (Auto) 1.0, Absolute Neuts (auto) 1.7 L, Absolute Lymphs (auto) 1.80, Nucleated RBC % 0, Differential Comment SCANNED, Diff Path Review August foll, Sodium Cancelled, Potassium Cancelled, Chloride Cancelled, Carbon Dioxide Cancelled, Anion Gap Cancelled, BUN Cancelled, Creatinine Cancelled, Estim Creat Clear Calc Cancelled, Est GFR (MDRD) Af Amer Cancelled, Est GFR (MDRD) Non-Af Cancelled, BUN/Creatinine Ratio Cancelled, Glucose Cancelled, Lactic Acid 2.3 H*, Calcium Cancelled, Troponin I High Sens Cancelled 05/15/23 22:28: Blood Type O POSITIVE, Crossmatch See Detail 05/15/23 23:09: Sodium 149 H, Potassium 4.8, Chloride 118 H, Carbon Dioxide 25.0, Anion Gap 6, BUN 21 H, Creatinine 1.02, Estim Creat Clear Calc 41.54, Est GFR (MDRD) Af Amer 68, Est GFR (MDRD) Non-Af 56 L, BUN/Creatinine Ratio 20.6 H, Glucose 101, Calcium 8.2 L, Troponin I High Sens 190 H* Imaging Radiology Impression Chest X-Ray 05/15/23 21:08 IMPRESSION: Moderate right pleural effusion with basilar consolidation. Mild left effusion and basilar infiltrate. Electronically Signed: Dimitri Thayer DO at 22:31 EST Reading Location ID and State: [facility] / [place] Tel [phone], Service support , Assessment & Plan Assessment/Plan (1) Supraventricular tachycardia: (2) Pancytopenia: (3) Chest pain: PLAN: Plan This is a 73-year-old female being admitted for further evaluation of atypical chest pain pancytopenia 1. Atypical chest pain probably type II TX from increased cardiac demand from severe anemia and PSVT: Patient is being admitted in PCU. Twelve-lead EKG first 1 shows SVT at 174 bpm, low voltage QRS. After IV adenosine 6 mg converted to normal sinus rhythm 96/min, with supraventricular complexes. First troponin 190. Chest pain has resolved. Will consult cardiology for further evaluation of chest pain, SVT. Cycle cardiac enzymes. 2D echo is ordered. Patient was hypotensive in ED probably due to SVT. 2. CAD status post triple-vessel CABG and PAD with history of chronic HFpEF: Patient on baby aspirin and Plavix which will be held because of severe anemia and thrombocytopenia. On metoprolol succinate 50 mg daily and lisinopril, continued. Echo from August 2021 mentioned below, EF 65%, stage I diastolic dysfunction. Lactic acid is elevated 2.3 probably due to hypoperfusion from arrhythmia. Clinically, the patient not showing any active signs of sepsis. 3. Pancytopenia, etiology unclear: Hemoglobin 5.4, WBC count 3.8 thousand, platelet count 39,000 with history of chronic iron deficiency anemia. Patient recently discharged from [facility] where her blood work shows normal WBC count, H&H between 9 to 10 g/dL and platelet count 1 21,000-107,000. In our system her last blood work in July 2022 shows hemoglobin about 10 g, WBC count normal and platelet count was about 3000 K. Patient was on subcu heparin for DVT prophylaxis there and antibiotic meropenem and linezolid. Exact reason unclear. Hematology consult requested. Right upper quadrant sonogram including spleen ordered. Stool for occult blood is negative and patient denies GI bleed, hematuria or external loss of blood. 4. Left medial diabetic ulcer s/p debridement and surgery with history of dry gangrene of right foot in June 2022 status post right forefoot amputation on 06/04/2022 with history of peripheral arterial disease: Patient wound is wrapped with James wrap but he states no acute change. Patient discharged on linezolid and will continue. Wound nurse consult and further management as per wound evaluation. Patient was admitted here in June 2022 and was transferred to . Hypertension and dyslipidemia: Patient on losartan and metoprolol manage mentioned above. Continued with holding parameters. 6. Diabetes mellitus with chronic diabetic neuropathy of lower extremities: Patient glucose in BMP is 101. She is stated that her glucose is better controlled now. Accu-Chek insulin coverage and low sliding scale. Patient on pregabalin continued. 7. Anxiety and depression and chronic back pain: Patient on baclofen, Flexeril. Hold Flexeril but baclofen continued. The patient on citalopram continued 8. GERD/history of PUD: Patient on PPI and sucralfate. Continued. Living will/advanced directive/end of life care: Patient does not have living will or advanced directive. She does not have negative power of estate attorney for health. Her is next of kin. After discussion of benefits/risks procedures involved with full code, DNR CC arrest and DNR CC, the patient opted for full code. Patient does want artificial life support including intubation, tube feed, ventilator and/chest compression, central venous catheter, vasopressor and DC shock if needed Total time spent in [id number] encounter in discussion of advanced directive 17 minutes. Laboratory Results 05/15/23 21:34: WBC 3.8 L, RBC 2.26 L, Hgb 5.4 L*, Hct 19.0 L, MCV 84.1, MCH 23.9 L, MCHC 28.4 L, RDW Std Deviation 70.9 H, RDW Coeff of Melvina 23.9 H, Plt Count 39 L*, MPV 10.2, Immature Gran % (Auto) 0.500, Neut % (Auto) 43.6 L, Lymph % (Auto) 47.0 H, [place] % (Auto) 4.2, Eos % (Auto) 3.7, Baso % (Auto) 1.0, Absolute Neuts (auto) 1.7 L, Absolute Lymphs (auto) 1.80, Nucleated RBC % 0, Differential Comment SCANNED, Diff Path Review August foll, Lactic Acid 2.3 H* 05/15/23 22:28: Blood Type O POSITIVE, Antibody Screen Pending, Crossmatch See Detail 05/15/23 23:09: Sodium 149 H, Potassium 4.8, Chloride 118 H, Carbon Dioxide 25.0, Anion Gap 6, BUN 21 H, Creatinine 1.02, Estim Creat Clear Calc 41.54, Est GFR (MDRD) Af Amer 68, Est GFR (MDRD) Non-Af 56 L, BUN/Creatinine Ratio 20.6 H, Glucose 101, Calcium 8.2 L, Troponin I High Sens 190 H* Echo 12/08/2021 Interpretation Summary Normal LV size. Left ventricular systolic function is normal. The estimated ejection fraction is 65 %. Stage 1 diastolic dysfunction. Pulmonary artery systolic pressure is 38 mmHg. Charges/Coding Visit Charges Inpatient E&M: 15693 Init Hosp L3 Procedures Hospitalists Procedures: 69333 Advncd Care Plan 30 Min
[2023-05-16 01:12] LABS: Reflex Troponin-HS? (from REC) Y
[2023-05-16 01:37] LABS: Reflex Lactate? Y
--- NOTE | 2023-05-16 03:51 | EKG12_ITS ---
Test Reason : a.m. ekg Blood Pressure : / mmHG Vent. Rate : 091 BPM Atrial Rate : 091 BPM P-R Int : 126 ms QRS Dur : 068 ms QT Int : 340 ms P-R-T Axes : 025 -08 137 degrees QTc Int : 418 ms Normal sinus rhythm Low voltage QRS Cannot rule out Septal infarct , age undetermined Abnormal ECG Confirmed by Nhan Shaw ([id number]), science editor CHECO VELASCO ([id number]) on 05/17/2023 9:41:07 AM Referred By: Ross Confirmed By:Nhan Shaw
--- NOTE | 2023-05-16 03:51 | ECHOD_ITS ---
Version 2 Reason For Study: NSTEMI Procedure This was a 2D Doppler, Color Flow transthoracic echocardiogram. Exam performed portable in ICU/CCU. Left Ventricle Normal LV size. The estimated ejection fraction is 30-35 %. Base of the LV is aleisha well. Septum is dyskinetic. Rest of the LV is severely hypokinetic or akinetic. Right Ventricle Normal RV size. Normal systolic function. Atria Normal left atrium. Normal right atrium. No doppler evidence for ASD. Mitral Valve There is no mitral valve stenosis. Mild (1+) mitral valve insufficiency. Tricuspid Valve There is no tricuspid stenosis. Moderately severe (3+) tricuspid valve insufficiency. Pulmonary artery systolic pressure is 20-25 mmHg. Aortic Valve Trisinus/trileaflet aortic valve. Moderate diffuse aortic valve thickening. There is no aortic stenosis. No aortic valve insufficiency. Pulmonic Valve There is no pulmonic valvular stenosis. No pulmonic valve insufficiency. Great Vessels Normal aortic root. Pericardium/Pleural No pericardial effusion. MMode/2D Measurements & Calculations LVIDd: 4.2 cm IVSd: 0.96 cm LAV(MOD-sp2): 55.8 ml LVIDs: 3.3 cm LVPWd: 0.95 cm RVDd: 3.0 cm FS: 22.6 % LVAd ap4: 21.3 cm2 LVAd ap2: 20.5 cm2 SV(MOD-sp4): 20.5 ml LVLd ap4: 6.9 cm LVLd ap2: 6.4 cm EDV(MOD-sp4): 56.5 ml EDV(MOD-sp2): 54.2 ml EDV(sp4-el): 56.0 ml EDV(sp2-el): 55.6 ml LVAs ap4: 16.8 cm2 LVAs ap2: 16.2 cm2 LVLs ap4: 6.5 cm LVLs ap2: 6.1 cm ESV(MOD-sp4): 36.0 ml ESV(MOD-sp2): 35.2 ml ESV(sp4-el): 36.8 ml ESV(sp2-el): 36.6 ml EF(MOD-sp4): 36.3 % EF(MOD-sp2): 35.0 % EF(sp4-el): 34.3 % SV(MOD-sp2): 18.9 ml SV(sp4-el): 19.2 ml TAPSE: 0.96 cm Time Measurements MV dec time: 0.13 sec Doppler Measurements & Calculations MV E max ashish: 55.5 cm/sec Lat Peak E' Ashish: 3.4 cm/sec Ao V2 max: 111.3 cm/sec MV A max ashish: 91.1 cm/sec E/E' lat: 16.2 Ao max P.0 mmHg MV E/A: 0.61 Ao V2 mean: 70.0 cm/sec Ao mean P.2 mmHg Ao V2 VTI: 17.4 cm AV (velocity ratio): 0.74 LV V1 max: 83.2 cm/sec TR max ashish: 200.5 cm/sec LV V1 max P.8 mmHg TR max P.1 mmHg LV V1 mean P.2 mmHg LV V1 mean: 51.4 cm/sec LV V1 VTI: 12.9 cm ECHO/Echo Complete Interpretation Summary The estimated ejection fraction is 30-35 %. Mild (1+) mitral valve insufficiency. Moderately severe (3+) tricuspid valve insufficiency. Ordering Physician: Kaleb Hawkins Referring Physician: Karuna Mccall Performed By: Rolanda Scott RDCS, RVT
[2023-05-16] MEDS: Dext 5%-0.45% NS 1,000 ML 75 ML IV (04:44)
--- NOTE | 2023-05-16 05:15 | CT_ITS ---
STUDY: CTA CHEST REASON FOR EXAM: Female, 73 years old with chest pain, sharp, severe anemia -- R/O aneurysm TECHNIQUE: CT angiogram of chest was performed with the intravenous administration of 100 ml Isovue-370. Post-processing of the angiographic images was performed, with MIP and MPR reconstructions. Individualized dose optimization techniques were used for this CT. COMPARISON: Several prior CTA chest exams, most recent comparison images from 08/13/2021 with CTA chest report from 12/06/2021 (images not received). FINDINGS: PULMONARY ARTERIES: No pulmonary arterial filling defects identified. AORTA AND VISUALIZED GREAT VESSELS: Atherosclerosis with no thoracic aortic aneurysm or dissection. Great vessels are patent. HEART AND PERICARDIUM: Heart size upper limits normal. Status post CABG. Small pericardial effusion. MEDIASTINUM AND SITA: No mediastinal or hilar adenopathy. Esophagus is unremarkable. LUNGS, PLEURA AND LARGE AIRWAYS: Right greater than left large bilateral pleural effusions with compressive atelectasis right lower lobe and partial compressive atelectasis left lower lobe. Mild atelectasis also noted within right middle lobe. No discrete pulmonary mass. No pneumothorax. BONES: Status post sternotomy. CHEST WALL: Generalized subcutaneous edema. VISUALIZED ABDOMEN: Abdominal ascites present. CT/CTA Chest W/WO Contrast IMPRESSION: 1. No pulmonary embolus identified. 2. Atherosclerotic disease with no thoracic aortic aneurysm or dissection. 3. Large bilateral pleural effusions and bilateral atelectatic changes. 4. Subcutaneous edema and abdominal ascites. Electronically Signed: Raymond Kent MD at 7:43 EST ,
[2023-05-16] MEDS: Metoprolol(XL)Succ 50 MG Tablet PO (05:26)
[2023-05-16] MEDS: Levothyroxine 75 MCG Tablet PO (05:26)
--- NOTE | 2023-05-16 05:55 | US_ITS ---
STUDY: ABDOMINAL ULTRASOUND - RIGHT UPPER QUADRANT REASON FOR VISIT: Female, 73 years old pancytopenia -- Including spleen. Rule out portal hypertension TECHNIQUE: Ultrasound evaluation of the right upper quadrant was performed with real-time and static weiner-scale imaging. TECHNICAL QUALITY: Adequate. COMPARISON: Comparison is made with prior study March 04, 2022. FINDINGS: Liver: The liver measures 16.3 cm. There is a heterogeneous echogenicity of the liver. The bile ducts are within normal limits. There is hepatic color flow. The direction of portal flow is hepatopetal. There is no demonstrated mass lesion. Gallbladder: Normal distended gallbladder. The gallbladder wall is thickened and measures 7 mm. There is a positive sonographic Petersen''s sign. There is pericholecystic fluid. There are no gallstones. Sludge is seen within the gallbladder lumen. Common Bile Duct (C.B.D.): The common bile duct measures 4 mm. Pancreas: Normal size of the head, body and tail of the pancreas. There is normal echogenicity of the pancreas. There is no demonstrated pancreatic mass or cyst. Right Kidney: Normal size of the right kidney. The right kidney measures 10.8 cm x 6.4 cm x 5.5 cm. Normal renal cortex. The right cortex measures 1.4 cm. There is no demonstrated renal mass or cyst. There is no right hydronephrosis. There is evidence of small bilateral pleural effusions. Small amount of ascites. The spleen measures 9.4 cm x 5 cm x 4.5 cm. Calcified splenic granulomas are seen. US/Abdomen Limited IMPRESSION: Heterogeneous appearance of the liver. Small amount of bilateral pleural effusions and ascites. Thickened gallbladder wall. Sludge is seen within the gallbladder lumen. Positive sonographic Petersen''s sign. The spleen is not enlarged. Calcified granulomas are seen within. Electronically Signed: Al Thacker MD at 12:48 EST ,
[2023-05-16 05:58] LABS: Bedside Glucose 74 mg/dL (74-106)
[2023-05-16 06:09] LABS: Absolute Lymphocyte Count 2.58 X10^3/uL (0.83-4.51); Absolute Neutrophil Count 3.2 X10^3/uL (2.0-7.7); Basophil# 0.06 X10^3/uL; Basophil% 0.9 % (0-1); Eosinophil# 0.12 X10^3/uL; Eosinophils% 1.9 % (0-5); Hematocrit 35.2 % (37-47); Hemoglobin 10.6 g/dL (12.0-15.0); Lymphocyte # 2.58 X10^3/ul (0.83-4.51); Lymphocyte % 40.7 % (19-41); Mean Corp Hgb Conc 30.1 g/dL (32-36); Mean Corpuscular Hgb 25.2 pg (27.0-32.0); Mean Corpuscular Volume 83.6 fL (81-99); Monocyte# 0.36 X10^3/uL; Monocyte% 5.7 % (0-10); NRBC Flagged by Analyzer 0 % (0-5); Neutrophil # 3.21 X10^3/uL (2.7-7.7); Neutrophil % 50.6 % (47-70); POSITIVE COUNT YES; POSITIVE MORPHOLOGY YES; Platelet Count 51 K/mm3 (150-450); RBC Distribution Width CV 22.5 % (11.6-14.6); RBC Distribution Width SD 65.4 fl (35.1-43.9); Red Blood Count 4.21 M/mm3 (4.2-5.4); White Blood Count 6.3 K/mm3 (4.4-11.0)
[2023-05-16 06:34] LABS: Differential Indicated SCAN CRITERIA MET
[2023-05-16 06:43] LABS: Anion Gap 3 (5-15); BUN 22 mg/dL (7-18); BUN/Creat Ratio 22.9 RATIO (10-20); Calcium,Total 8.4 mg/dL (8.5-10.1); Chloride 115 mmol/L (98-107); Cholesterol 74 mg/dL (200); Creatinine, Serum 0.96 mg/dL (0.55-1.02); EST Glomerular Filtration Rate 60 mL/min (>60); Est Glom Filt Rate - Afr Amer 73 mL/min (>60); Estimated Creatinine Clearance 44.36 ml/min; Glucose 69 mg/dL (74-106); High Density Lipoprotein 43 mg/dL; Phosphorus 2.2 mg/dL (2.5-4.9); Potassium 4.3 mmol/L (3.5-5.1); Sodium Level 144 mmol/L (136-145); Triglycerides 90 mg/dL; Very Low Density Lipoprotein 18 mg/dL (5-40)
[2023-05-16 06:47] LABS: Troponin-I HS 722 pg/mL (3.0-54.0)
[2023-05-16 07:35] LABS: Anisocytosis 3+
--- NOTE | 2023-05-16 07:52 | PCM.CONS.C ---
Assessment & Plan Assessment/Plan (1) Chest pain: QUALIFIERS: Chest pain type: chest pain due to myocardial ischemia Ischemic chest pain type: unspecified angina pectoris type Qualified Code(s): I25.9 - Chronic ischemic heart disease, unspecified PLAN: The patient states chest discomfort reminds her of her previous angina. She has a known history of coronary artery disease status post bypass graft surgery which we do not have a report. I will try to obtain this from [facility]. The patient does not know the name of the surgeon or which hospital she had the procedure done. The patient's troponin went from 190 to 700. Her chest discomfort is pretty much resolved. She originally presented hypotensive with a supraventricular tachycardia in the 150 bpm range. This converted with adenosine and her symptoms resolved. The patient's aspirin and Plavix have been held. She was also on Eliquis at some point in time by report when she was hospitalized at [facility] in the past 2 weeks. We will alter her meds as noted below in the plan. (2) Supraventricular tachycardia: PLAN: This is a regular narrow complex supraventricular tachycardia that converted with adenosine 6 mg IV in the emergency department. The patient should be continued on a beta-juany we will increase her dose and change her to metoprolol tartrate 50 mg twice daily. (3) Essential (primary) hypertension: PLAN: Patient's blood pressure is elevated we will increase her medications with metoprolol as noted above. Will also add nitroglycerin paste to her medical regimen. (4) Peripheral vascular disease, unspecified: PLAN: Patient is to be continued on her current therapy for her diabetic ulcers and should follow-up with her vascular surgeon. She does not know who that he is. We need to do get her reevaluated by the vascular surgeon that originally saw her here at [facility] back in early 2022 as indicated. (5) Pancytopenia: PLAN: Heme-onc has been consulted. We will await their input before adding back any aspirin or antiplatelet agents. Currently her platelet count is 51,000 on a recheck. Her hemoglobin went from 5.4-10.6 with 1 unit of packed red cells. This suggest that the original hemoglobin of 5.4 may have been inaccurate or the recheck was. A redraw has been done this morning. At this point in time the patient's pancytopenia and her pulmonary issues with the bilateral pleural effusions a TSH of 13 and her other metabolic derangements preempt is taking her to the [facility]. I discussed this with the patient in detail. We will await decision from hematology about when we can safely restart antiplatelet therapy. (6) CAD (coronary artery disease): QUALIFIERS: Coronary Disease-Associated Artery/Lesion type: [place] artery [place] vs. transplanted heart: [place] heart Associated angina: with other forms of angina Qualified Code(s): I25.118 - Atherosclerotic heart disease of [place] coronary artery with other forms of angina pectoris PLAN: It is my opinion that the elevated troponins are primarily related to demand type ischemia. The patient being in a supraventricular tachycardia with a profound anemia and pancytopenia as well as her other metabolic derangements. At this point in time I feel the risk outweighs the benefit to be gained by invasive evaluation of her coronary anatomy. We will treat her medically. I will attempt to obtain an op report from [facility]. PLAN: Plan 1. Add nitroglycerin paste 1 inch topically every 6 hours. 2. Change metoprolol to succinate to metoprolol tartrate 50 mg twice daily. 3. Check echocardiogram results. 4. Obtain cath and op report from [facility]. 5. Will follow with you. HPI Consult Data Date of Consult: 05/16/23 HPI Narrative Reason for Consultation: Chest pain with positive troponins HPI Narrative: YENNY LUGO, is a 73 F who presents with a history of recent hospitalization at [facility]. The patient presents with a hemoglobin of 5.4 and pancytopenia. Her white count was 3.8 and platelet count 39,000. Historically the patient has run hemoglobin around 10. Her platelet count has been normal in the past. The patient has a history of a thoracentesis that was consistent with a transudate when she was hospitalized at [facility] and was treated with antibiotic therapy. The patient denies going home on antibiotics when she was discharged 48 hours prior to this admission. The patient denies any overt blood loss she denies any bleeding from the nares she denies coughing up any blood she denies any dark tarry stools. She reports that her bowel movements have been normal. The patient reports sharp chest discomfort in her mid retrosternal area. This is similar to the discomfort she experienced prior to her coronary bypass graft surgery done in January 2023. The patient is not sure where the surgery was done she thinks it was in [place]. There is no record of a heart catheterization done here at [facility]. 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 The patient is diabetic and hyperlipidemic. The patient reports that this chest discomfort is sharp in nature reminds her of what she experienced prior to her bypass graft surgery. She reports to me that this morning that she can still barely feel it but it is present. The patient's platelets are still less than 60,000 her aspirin is on hold and she had been on Eliquis at some point in time during her recent hospitalization at [facility] but it was not on her home meds. She was on antibiotics at home but the patient was not aware of this. Heme-onc has been consulted. She had a CT scan done earlier this a.m. which preliminarily showed recurrence of her pleural effusion. This was a transudate when it was aspirated at [facility] by report. [facility] Medical History Arthritis Diabetes Diabetic ulcer of ankle Essential (primary) hypertension Gastric reflux High cholesterol History of venous thromboembolism Hormone deficiency Hyperlipidemia PAD (peripheral artery disease) Post-menopausal Seasonal allergies Type 2 diabetes mellitus Ulcer Wears glasses Home Medications lisinopril 10 mg tablet 10 mg PO DAILY BP 02/17/21 [History Last Taken 06/03/22] omeprazole 40 mg capsule,delayed release 40 mg PO BID #60 caps 04/06/22 [Rx Last Taken 06/03/22] acetaminophen 500 mg tablet 500 - 1,000 mg PO Q6H PRN Pain 06/03/22 [History Last Taken 06/03/22] ascorbic acid (vitamin C) 500 mg tablet (Vitamin C) 500 mg PO DAILY SUPPLEMENT 06/03/22 [History Last Taken 06/03/22] aspirin 81 mg chewable tablet 81 mg PO DAILY HEALTH 06/03/22 [History Last Taken 06/03/22] atorvastatin 40 mg tablet 40 mg PO QHS CHOLESTEROL 06/03/22 [History Last Taken 06/02/22] baclofen 10 mg tablet 10 mg PO BID BACK 06/03/22 [History Last Taken 06/03/22] citalopram 20 mg tablet 20 mg PO DAILY DEPRESSION 06/03/22 [History Last Taken 06/03/22] levothyroxine 75 mcg tablet 75 mcg PO DAILY THYROID 06/03/22 [History Last Taken 06/03/22] metoprolol succinate 50 mg tablet,extended release 24 hr 50 mg PO DAILY HEART 06/03/22 [History Last Taken 06/03/22] oxycodone 5 mg tablet 5 mg PO BID PAIN 06/03/22 [History Last Taken 06/03/22] polysaccharide iron complex 150 mg iron capsule (iFerex 150) 150 mg PO DAILY SUPPLEMENT 06/03/22 [History Last Taken 06/03/22] pregabalin 50 mg capsule 50 mg PO BID PAIN 06/03/22 [History Last Taken 06/03/22] cefdinir 300 mg capsule 300 mg PO Q12H 5 days #10 caps 06/08/22 [Rx Last Taken Unknown] insulin degludec 200 unit/mL (3 mL) subcutaneous pen (Tresiba FlexTouch U-200 insulin) 50 unit (0.25 mL) subcut BID diabetes #9 mL 06/08/22 [Rx Last Taken 06/03/22] insulin lispro 100 unit/mL subcutaneous pen (Humalog KwikPen (U-100) Insulin) See Protocol subcut ACHS #0 mL 06/08/22 [Rx Last Taken Unknown] linezolid 600 mg tablet 600 mg PO BID 7 days #14 tabs 06/08/22 [Rx Last Taken Unknown] sucralfate 1 gram tablet 1 g PO 1HR_ACHS 30 days #0 tabs 06/08/22 [Rx Last Taken Unknown] clopidogrel 75 mg tablet (Plavix) 75 mg PO DAILY #90 tabs 06/30/22 [Rx Last Taken Unknown] ciprofloxacin HCl 500 mg tablet 500 mg PO 07/23/22 [History Last Taken Unknown] cyclobenzaprine 10 mg tablet 10 mg PO TID PRN Muscle Spasm #20 TABLETS 09/19/22 [Rx Last Taken Unknown] lidocaine 5 % topical patch 1 patch topical DAILY PRN pain #15 ea 09/19/22 [Rx Last Taken Unknown] Allergy/AdvReac Type Severity Reaction Status Date / Time diphenhydramine Allergy Swelling Verified 09/19/22 19:44 [From Benadryl] Family History Father Heart disease Hypertension Mother Diabetes Hypertension Kidney disease Liver disease Other Arthritis Surgical History History of amputation of right foot through tarsometatarsal joint History of S/P foot surgery, right S/P triple vessel bypass Social History household members: spouse housing: house number of children: 2 current occupational status: retired history of recent travel: No other: Patient did have notable secondhand tobacco exposure from [employer]. Smoking Status: Never smoker alcohol intake: never substance use type: does not use what type of physical activity do you participate in: none ROS Constitutional Constitutional: Reports as per HPI Eyes Eyes: Reports systems reviewed and no addt'l complaints, except as documented ENT HEENT: Reports systems reviewed and no addt'l complaints, except as documented Cardiovascular Cardiovascular: Reports as per HPI Respiratory/Chest Respiratory/Chest: Reports as per HPI Gastrointestinal Gastrointestinal: Reports as per HPI Genitourinary Genitourinary: Reports as per HPI Musculoskeletal Musculoskeletal: Reports systems reviewed and no addt'l complaints, except as documented Integumentary Integumentary: Reports systems reviewed and no addt'l complaints, except as documented Neurologic Neurologic: Reports systems reviewed and no addt'l complaints, except as documented Psychiatric Psychiatric: Reports systems reviewed and no addt'l complaints, except as documented Endocrine Endocrinology: Reports as per HPI Hematologic/Lymphatic Hematologic/Lymphatic: Reports as per HPI Allergic/Immunologic Allergic/Immunologic: Reports systems reviewed and no addt'l complaints, except as documented Physical Exam Const alert Constitutional Narrative: She has very poor memory of details of her medical history. HEENT normocephalic Eyes EOMs intact bilaterally Neck no JVD and no carotid bruits Chest palpation of chest normal Chest Narrative: Defibrillator pads are present over the mid sternum. Resp Auscultation: breath sounds absent right (Posteriorly.) and diminished lung sounds left (Posteriorly.) Cardio regular rate, regular rhythm, S1 normal heart sound, S2 normal heart sound, no murmurs, no rub and no gallops GI soft to palpation and non-tender Extremity Extremity Narrative: STDs present on both lower extremities and both feet are wrapped with no slip stockings. Skin General Skin Exam: ecchymosis Neuro Neuro Narrative: Alert and oriented to person and place she is confused about timing. Psych cooperative and affect normal Psych Narrative: Confused about her past medical history. She kept repeating that she recently moved here from [place]. Risk Stratification Risk Stratification Applicable: Yes Age >/= 65: Yes >/= 3 CAD Risk Factors (HTN, HLD, DM, family hx of CAD, or current smoker): Yes Aspirin Use in the Past 7 Days: Yes Severe Angina (>/= episodes in 24 hours): Yes EKG ST Changes >/= 0.5mm: No Positive Cardiac Marker: Yes KARLI Risk Stratification Score: 5 KARLI % Risk: 25% Risk Charges/Coding Visit Charges Inpatient E&M: 03948 Init Hosp L3 Objective Data Vital Signs: Vital Signs Temp Pulse Resp BP Pulse Ox O2 Del Method O2 Flow Rate 97.6 F L 86 12 161/79 H 100 Room Air 2 05/16/23 06:53 05/16/23 06:53 05/16/23 06:53 05/16/23 06:53 05/16/23 06:53 05/16/23 06:53 05/16/23 01:51 Oxygen Flow Rate (L/min) 2 Oxygen Delivery Method Room Air Weight: 135 lb 9.349 oz Body Mass Index (BMI) 24.9 Intake & Output: Intake and Output for Last 24 Hours 05/14/23 05/15/23 05/16/23 23:59 23:59 23:59 Intake Total 1000 / 1000 57.5 / 57.5 Output Total 0 / 0 Balance 1000 / 1000 57.5 / 57.5 Lab / Micro Data Attestation: I reviewed the patient's lab results. 05/16/23 05:55 05/16/23 04:50 Labs: Laboratory Results - last 24 hr 05/15/23 21:34: WBC 3.8 L, RBC 2.26 L, Hgb 5.4 L*, Hct 19.0 L, MCV 84.1, MCH 23.9 L, MCHC 28.4 L, RDW Std Deviation 70.9 H, RDW Coeff of Melvina 23.9 H, Plt Count 39 L*, MPV 10.2, Immature Gran % (Auto) 0.500, Neut % (Auto) 43.6 L, Lymph % (Auto) 47.0 H, Spencer % (Auto) 4.2, Eos % (Auto) 3.7, Baso % (Auto) 1.0, Absolute Neuts (auto) 1.7 L, Absolute Lymphs (auto) 1.80, Nucleated RBC % 0, Differential Comment SCANNED, Diff Path Review August foll, Sodium Cancelled, Potassium Cancelled, Chloride Cancelled, Carbon Dioxide Cancelled, Anion Gap Cancelled, BUN Cancelled, Creatinine Cancelled, Estim Creat Clear Calc Cancelled, Est GFR (MDRD) Af Amer Cancelled, Est GFR (MDRD) Non-Af Cancelled, BUN/Creatinine Ratio Cancelled, Glucose Cancelled, Lactic Acid 2.3 H*, Calcium Cancelled, Troponin I High Sens Cancelled 05/15/23 22:28: Blood Type O POSITIVE, Antibody Screen NEGATIVE, Crossmatch See Detail 05/15/23 23:09: Sodium 149 H, Potassium 4.8, Chloride 118 H, Carbon Dioxide 25.0, Anion Gap 6, BUN 21 H, Creatinine 1.02, Estim Creat Clear Calc 41.54, Est GFR (MDRD) Af Amer 68, Est GFR (MDRD) Non-Af 56 L, BUN/Creatinine Ratio 20.6 H, Glucose 101, Calcium 8.2 L, Troponin I High Sens 190 H* 05/16/23 04:50: Sodium 144, Potassium 4.3, Chloride 115 H, Carbon Dioxide 26.0, Anion Gap 3 L, BUN 22 H, Creatinine 0.96, Estim Creat Clear Calc 44.36, Est GFR (MDRD) Af Amer 73, Est GFR (MDRD) Non-Af 60, BUN/Creatinine Ratio 22.9 H, Glucose 69 L, Calcium 8.4 L, Phosphorus 2.2 L, Troponin I High Sens 722 H*, Triglycerides 90, Cholesterol 74, LDL Cholesterol 13, VLDL Cholesterol 18, HDL Cholesterol 43, TSH 13.00 H 05/16/23 05:40: POC Glucose 74 05/16/23 05:55: WBC 6.3, RBC 4.21, Hgb 10.6 L, Hct 35.2 L, MCV 83.6, MCH 25.2 L, MCHC 30.1 L D, RDW Std Deviation 65.4 H, RDW Coeff of Melvina 22.5 H, Plt Count 51 L, MPV 9.0, Immature Gran % (Auto) 0.200, Neut % (Auto) 50.6, Lymph % (Auto) 40.7, Spencer % (Auto) 5.7, Eos % (Auto) 1.9, Baso % (Auto) 0.9, Absolute Neuts (auto) 3.2, Absolute Lymphs (auto) 2.58, Nucleated RBC % 0, Anisocytosis 3+ Micro: Microbiology 05/15/23 00:01 Stool Stool Occult Blood (RAMON) - Final Rhythm Strip Rhythm Strip: Sinus Rhythm Rate: 96 Cardiology Labs/Tests 05/15/23 21:34: WBC 3.8 L, RBC 2.26 L, Hgb 5.4 L*, Hct 19.0 L, MCV 84.1, MCH 23.9 L, MCHC 28.4 L, Plt Count 39 L*, MPV 10.2, Immature Gran % (Auto) 0.500, Neut % (Auto) 43.6 L, Lymph % (Auto) 47.0 H, Spencer % (Auto) 4.2, Eos % (Auto) 3.7, Baso % (Auto) 1.0, Absolute Neuts (auto) 1.7 L, Nucleated RBC % 0, Sodium Cancelled, Potassium Cancelled, Chloride Cancelled, Carbon Dioxide Cancelled, Anion Gap Cancelled, BUN Cancelled, Creatinine Cancelled, Est GFR (MDRD) Af Amer Cancelled, Est GFR (MDRD) Non-Af Cancelled, BUN/Creatinine Ratio Cancelled, Glucose Cancelled, Lactic Acid 2.3 H*, Calcium Cancelled 05/15/23 23:09: Sodium 149 H, Potassium 4.8, Chloride 118 H, Carbon Dioxide 25.0, Anion Gap 6, BUN 21 H, Creatinine 1.02, Est GFR (MDRD) Af Amer 68, Est GFR (MDRD) Non-Af 56 L, BUN/Creatinine Ratio 20.6 H, Glucose 101, Calcium 8.2 L 05/16/23 04:50: Sodium 144, Potassium 4.3, Chloride 115 H, Carbon Dioxide 26.0, Anion Gap 3 L, BUN 22 H, Creatinine 0.96, Est GFR (MDRD) Af Amer 73, Est GFR (MDRD) Non-Af 60, BUN/Creatinine Ratio 22.9 H, Glucose 69 L, Calcium 8.4 L, Phosphorus 2.2 L, Triglycerides 90, Cholesterol 74, LDL Cholesterol 13, VLDL Cholesterol 18, HDL Cholesterol 43 05/16/23 05:55: WBC 6.3, RBC 4.21, Hgb 10.6 L, Hct 35.2 L, MCV 83.6, MCH 25.2 L, MCHC 30.1 L D, Plt Count 51 L, MPV 9.0, Immature Gran % (Auto) 0.200, Neut % (Auto) 50.6, Lymph % (Auto) 40.7, Spencer % (Auto) 5.7, Eos % (Auto) 1.9, Baso % (Auto) 0.9, Absolute Neuts (auto) 3.2, Nucleated RBC % 0 Rhythm: EKG: ECHO: Stress Test: Cardiac Cath: PCI: CT Surgery: Holter monitor: EPS: PPM: CXR: Chest CT Scan: Radiography Diagnostic Testing: Radiology Impression Chest X-Ray 05/15/23 21:08 IMPRESSION: Moderate right pleural effusion with basilar consolidation. Mild left effusion and basilar infiltrate. Electronically Signed: Dimitri Thayer DO at 22:31 EST , Chest CTA 05/16/23 05:15 IMPRESSION: 1. No pulmonary embolus identified. 2. Atherosclerotic disease with no thoracic aortic aneurysm or dissection. 3. Large bilateral pleural effusions and bilateral atelectatic changes. 4. Subcutaneous edema and abdominal ascites. Electronically Signed: Raymond Kent MD at 7:43 EST , EKG Follow-up EKG: Attestation: I personally reviewed and interpreted this EKG as follows: Interpretation: Normal sinus rhythm heart rate 96 cannot rule out an old septal myocardial infarction. No acute ischemic changes.
[2023-05-16 08:21] LABS: Bedside Glucose 72 mg/dL (74-106)
[2023-05-16 08:28] LABS: BNP,B-Type NATRIURETIC PEPTIDE 2077.9 pg/mL (0-100)
[2023-05-16] MEDS: Metoprolol Tartrate 50 MG Tablet PO ×2 (08:28→20:41)
[2023-05-16] MEDS: Nitroglycerin Oint 1 INCH PACKET TD ×2 (08:28→17:32)
[2023-05-16] MEDS: Citalopram 20 MG Tablet PO (08:29)
[2023-05-16] MEDS: Baclofen 10 MG Tablet PO ×2 (08:29→20:42)
[2023-05-16] MEDS: Iron Polysaccharide Complex 150 MG CAPSULE PO (08:29)
[2023-05-16] MEDS: Sucralfate 1 GM Tablet PO ×2 (08:29→20:41)
[2023-05-16] MEDS: Lisinopril 10 MG Tablet PO (08:30)
[2023-05-16] MEDS: Ascorbic Acid 500 MG Tablet PO (08:30)
[2023-05-16] MEDS: Pantoprazole Sodium 40 MG Tablet PO ×2 (08:30→20:43)
[2023-05-16 08:32] LABS: Partial Thromboplast Time 44.5 Seconds (24.1-36.2)
[2023-05-16] MEDS: Pregabalin 50 MG Capsule PO ×2 (08:32→20:42)
[2023-05-16 08:42] LABS: International Normalized Ratio 1.2
--- NOTE | 2023-05-16 09:32 | WOUNDNOTE ---
Pt c/o discomfort to the sacral area. there are no open areas noted, but there is some dark discoloration. applied a Mepilex dressing to provide protection and some extra padding. patient appreciative. will monitor.
[2023-05-16 09:34] LABS: Ferritin 126 ng/mL (8-252); Iron 209 ug/dL (50-170); Iron Binding Capacity,Total 243 ug/dL (250-450)
[2023-05-16 09:39] LABS: LDH 254 U/L (84-246)
[2023-05-16 09:42] LABS: Magnesium 1.4 mg/dL (1.6-2.6)
[2023-05-16] MEDS: Ondansetron 4 MG/2 ML Vial IV (09:42)
--- NOTE | 2023-05-16 09:46 | WOUNDNOTE ---
wound photo: left lower leg
[2023-05-16] MEDS: oxyCODONE 5 MG Tablet PO ×2 (10:40→17:31)
--- NOTE | 2023-05-16 10:48 | CASEMGMT ---
Insurance review for hospitals In-network with?[facility] insurance if transfer is recommended is as follows:?[facility], [facility], [facility], [facility], [facility], [facility], [facility]), [place], [place], [facility], and . Beronica Prabhakar, Discharge Planning Asst.
[2023-05-16 11:09] LABS: M R Staph aureus DNA By PCR Negative (Negative); Probe Check PASS; Specimen Processing Control PASS; Staph aureus DNA By PCR NEGATIVE (Negative)
[2023-05-16 12:00] LABS: Bedside Glucose 83 mg/dL (74-106)
[2023-05-16 12:26] LABS: Bedside Glucose 86 mg/dL (74-106)
--- NOTE | 2023-05-16 13:19 | PCM.CONS.GEN ---
Assessment & Plan Assessment/Plan (1) Pancytopenia: (2) MRSA infection: PLAN: Reviewed [facility] records. On doxy for MRSA LLE infection. Prior linezolid could have contributed to her low platelets and hgb. Will change linezolid back to doxy, planned stop date 05/27/23. Transfer planned. Leg wound appears to be doing well. Will follow, thank you HPI Consult Data Date of Consult: 05/16/23 HPI Narrative Reason for Consultation: wound infection HPI Narrative: YENNY LUGO, is a 73 F who presented last night to ED with 2 hours of sharp chest pain associated with dyspnea. Has prior CABG. Discharged from [facility] 2 days prior after admitted with L lower leg infection. Seen by ID. Wound cx with MRSA and GNRs. I&D done 05/13. Had thoracentesis 05/09 with transudative fluid seen. Given linezolid/christian while inpatient, discharged on 2 weeks po doxy. Hgb was 5.4 in ED here, given blood, admitted on linezolid, feeling better. No fever or chills, leg doing ok. Full ROS performed and neg except as noted above. [facility] Medical History Arthritis Diabetes Diabetic ulcer of ankle Essential (primary) hypertension Gastric reflux High cholesterol History of venous thromboembolism Hormone deficiency Hyperlipidemia PAD (peripheral artery disease) Post-menopausal Seasonal allergies Type 2 diabetes mellitus Ulcer Wears glasses Home Medications lisinopril 10 mg tablet 10 mg PO DAILY BP 02/17/21 [History Last Taken 06/03/22] omeprazole 40 mg capsule,delayed release 40 mg PO BID #60 caps 04/06/22 [Rx Last Taken 06/03/22] acetaminophen 500 mg tablet 500 - 1,000 mg PO Q6H PRN Pain 06/03/22 [History Last Taken 06/03/22] ascorbic acid (vitamin C) 500 mg tablet (Vitamin C) 500 mg PO DAILY SUPPLEMENT 06/03/22 [History Last Taken 06/03/22] aspirin 81 mg chewable tablet 81 mg PO DAILY HEALTH 06/03/22 [History Last Taken 06/03/22] atorvastatin 40 mg tablet 40 mg PO QHS CHOLESTEROL 06/03/22 [History Last Taken 06/02/22] baclofen 10 mg tablet 10 mg PO BID BACK 06/03/22 [History Last Taken 06/03/22] citalopram 20 mg tablet 20 mg PO DAILY DEPRESSION 06/03/22 [History Last Taken 06/03/22] levothyroxine 75 mcg tablet 75 mcg PO DAILY THYROID 06/03/22 [History Last Taken 06/03/22] metoprolol succinate 50 mg tablet,extended release 24 hr 50 mg PO DAILY HEART 06/03/22 [History Last Taken 06/03/22] oxycodone 5 mg tablet 5 mg PO BID PAIN 06/03/22 [History Last Taken 06/03/22] polysaccharide iron complex 150 mg iron capsule (iFerex 150) 150 mg PO DAILY SUPPLEMENT 06/03/22 [History Last Taken 06/03/22] pregabalin 50 mg capsule 50 mg PO BID PAIN 06/03/22 [History Last Taken 06/03/22] cefdinir 300 mg capsule 300 mg PO Q12H 5 days #10 caps 06/08/22 [Rx Last Taken Unknown] insulin degludec 200 unit/mL (3 mL) subcutaneous pen (Tresiba FlexTouch U-200 insulin) 50 unit (0.25 mL) subcut BID diabetes #9 mL 06/08/22 [Rx Last Taken 06/03/22] insulin lispro 100 unit/mL subcutaneous pen (Humalog KwikPen (U-100) Insulin) See Protocol subcut ACHS #0 mL 06/08/22 [Rx Last Taken Unknown] linezolid 600 mg tablet 600 mg PO BID 7 days #14 tabs 06/08/22 [Rx Last Taken Unknown] sucralfate 1 gram tablet 1 g PO 1HR_ACHS 30 days #0 tabs 06/08/22 [Rx Last Taken Unknown] clopidogrel 75 mg tablet (Plavix) 75 mg PO DAILY #90 tabs 06/30/22 [Rx Last Taken Unknown] ciprofloxacin HCl 500 mg tablet 500 mg PO 07/23/22 [History Last Taken Unknown] cyclobenzaprine 10 mg tablet 10 mg PO TID PRN Muscle Spasm #20 TABLETS 09/19/22 [Rx Last Taken Unknown] lidocaine 5 % topical patch 1 patch topical DAILY PRN pain #15 ea 09/19/22 [Rx Last Taken Unknown] Allergy/AdvReac Type Severity Reaction Status Date / Time diphenhydramine Allergy Swelling Verified 09/19/22 19:44 [From Benadryl] Family History Father Heart disease Hypertension Mother Diabetes Hypertension Kidney disease Liver disease Other Arthritis Surgical History 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 Smoking Status: Never smoker alcohol intake: never substance use type: does not use what type of physical activity do you participate in: none Physical Exam Const alert, oriented x3 and no apparent distress General Appearance: cooperative HEENT normocephalic and head/scalp atraumatic Eyes PERRL and EOMs intact bilaterally Neck supple and No nodes Resp normal air movement and clear to auscultation bilaterally Cardio regular rate and regular rhythm GI soft to palpation, non-tender and non-distended Extremity General Extremity: edema Skin Skin Narrative: reviewed wound photos Neuro CN's II-XII intact bilaterally Lab / Micro Data Attestation: I reviewed the patient's lab results. 05/16/23 05:55 05/16/23 04:50 Labs: Laboratory Results - last 24 hr 05/15/23 21:34: WBC 3.8 L, RBC 2.26 L, Hgb 5.4 L*, Hct 19.0 L, MCV 84.1, MCH 23.9 L, MCHC 28.4 L, RDW Std Deviation 70.9 H, RDW Coeff of Melvina 23.9 H, Plt Count 39 L*, MPV 10.2, Immature Gran % (Auto) 0.500, Neut % (Auto) 43.6 L, Lymph % (Auto) 47.0 H, Butler % (Auto) 4.2, Eos % (Auto) 3.7, Baso % (Auto) 1.0, Absolute Neuts (auto) 1.7 L, Absolute Lymphs (auto) 1.80, Nucleated RBC % 0, Differential Comment SCANNED, Diff Path Review May foll, Sodium Cancelled, Potassium Cancelled, Chloride Cancelled, Carbon Dioxide Cancelled, Anion Gap Cancelled, BUN Cancelled, Creatinine Cancelled, Estim Creat Clear Calc Cancelled, Est GFR (MDRD) Af Amer Cancelled, Est GFR (MDRD) Non-Af Cancelled, BUN/Creatinine Ratio Cancelled, Glucose Cancelled, Lactic Acid 2.3 H*, Calcium Cancelled, Troponin I High Sens Cancelled 05/15/23 22:28: Blood Type O POSITIVE, Antibody Screen NEGATIVE, Crossmatch See Detail 05/15/23 23:09: Sodium 149 H, Potassium 4.8, Chloride 118 H, Carbon Dioxide 25.0, Anion Gap 6, BUN 21 H, Creatinine 1.02, Estim Creat Clear Calc 41.54, Est GFR (MDRD) Af Amer 68, Est GFR (MDRD) Non-Af 56 L, BUN/Creatinine Ratio 20.6 H, Glucose 101, Calcium 8.2 L, Troponin I High Sens 190 H* 05/16/23 04:50: Sodium 144, Potassium 4.3, Chloride 115 H, Carbon Dioxide 26.0, Anion Gap 3 L, BUN 22 H, Creatinine 0.96, Estim Creat Clear Calc 44.36, Est GFR (MDRD) Af Amer 73, Est GFR (MDRD) Non-Af 60, BUN/Creatinine Ratio 22.9 H, Glucose 69 L, Calcium 8.4 L, Phosphorus 2.2 L, Magnesium 1.4 L, Iron 209 H, TIBC 243 L, Iron Saturation 86.0 H, Ferritin 126, Lactate Dehydrogenase 254 H, Troponin I High Sens 722 H*, B-Natriuretic Peptide 2077.9 H, Triglycerides 90, Cholesterol 74, LDL Cholesterol 13, VLDL Cholesterol 18, HDL Cholesterol 43, TSH 13.00 H 05/16/23 05:40: POC Glucose 74 05/16/23 05:55: WBC 6.3, RBC 4.21, Hgb 10.6 L, Hct 35.2 L, MCV 83.6, MCH 25.2 L, MCHC 30.1 L D, RDW Std Deviation 65.4 H, RDW Coeff of Melvina 22.5 H, Plt Count 51 L, MPV 9.0, Immature Gran % (Auto) 0.200, Neut % (Auto) 50.6, Lymph % (Auto) 40.7, Butler % (Auto) 5.7, Eos % (Auto) 1.9, Baso % (Auto) 0.9, Absolute Neuts (auto) 3.2, Absolute Lymphs (auto) 2.58, Nucleated RBC % 0, Anisocytosis 3+ 05/16/23 07:27: PT 15.0 H, INR 1.2, APTT 44.5 H 05/16/23 08:03: POC Glucose 72 L 05/16/23 08:50: S.aureus Protein A PCR NEGATIVE, MRSA (PCR) Negative 05/16/23 09:57: POC Glucose 86 05/16/23 11:36: POC Glucose 83 Micro: Microbiology 05/15/23 00:01 Stool Stool Occult Blood (RAMON) - Final Rhythm Strip Rhythm Strip: Sinus Rhythm Rate: 96 Imaging Radiology Impression Chest X-Ray 05/15/23 21:08 IMPRESSION: Moderate right pleural effusion with basilar consolidation. Mild left effusion and basilar infiltrate. Electronically Signed: Dimitri Thayer DO at 22:31 EST Reading Location ID and State: [address] [place] [address] Tel [phone], Service support , Echocardiogram 05/16/23 03:51 Interpretation Summary The estimated ejection fraction is 30-35 %. Mild (1+) mitral valve insufficiency. Moderately severe (3+) tricuspid valve insufficiency. Ordering Physician: Kaleb Hawkins Referring Physician: Karuna Mccall Performed By: Rolanda Scott, NANETTE, RVT Chest CTA 05/16/23 05:15 IMPRESSION: 1. No pulmonary embolus identified. 2. Atherosclerotic disease with no thoracic aortic aneurysm or dissection. 3. Large bilateral pleural effusions and bilateral atelectatic changes. 4. Subcutaneous edema and abdominal ascites. Electronically Signed: Raymond Kent MD at 7:43 EST , Abdomen Ultrasound 05/16/23 05:55 IMPRESSION: Heterogeneous appearance of the liver. Small amount of bilateral pleural effusions and ascites. Thickened gallbladder wall. Sludge is seen within the gallbladder lumen. Positive sonographic Petersen''s sign. The spleen is not enlarged. Calcified granulomas are seen within. Electronically Signed: Al Thacker MD at 12:48 EST ,
--- NOTE | 2023-05-16 13:22 | CON.PCM.ON_ITS ---
Assessment & Plan Assessment/Plan (1) Pancytopenia: Status: Acute Code(s): D61.818 - Other pancytopenia Plan: The patient's admission CBC showed a pancytopenia with a severe anemia of hemoglobin 5 g per DL that improved after only 1 unit of packed red blood cells. That initial CBC was very likely a dilutional and inaccurate. The persistent abnormalities therefore are a mild anemia chronic and a moderately severe thrombocytopenia that developed since her discharge from [facility] on 01/22/2024. While at [facility] in the past 10 days the patient her Eliquis was discontinued and although she is not aware of the reason for discontinuation she had a wound debridement at the time. She received IV antibiotics (including a cephalosporin for which she had an adverse itching reaction and it was discontinued) and was discharged on oral doxycycline. She and her appeared to be well-informed with her care and she adamantly denied that she received any subcu heparin during that hospital stay and therefore the most likely timing for any heparin would have been January 2023 when she underwent open heart surgery. She does not have any evidence for venous or arterial thrombosis and no evidence for microangiopathic hemolysis. Her 4 T-score for HIT therefore is low probability (2 points for platelet drop more than 50%, 0 points for timing, 0 points for recent thrombosis and 0 point for other causes namely recent antibiotic exposure and infection) The most likely cause for her new onset worsening thrombocytopenia is likely a recent drug or antibiotic exposure. Recommendations: 1. With thrombocytopenia less than 50 K advise nonpharmacologic VTE prophylaxis and early ambulation. 2. Transfusion with platelets is not indicated with a platelet count in the 30+ K in absence of any bleeding or need for invasive procedure. 3. Defer to primary service and or ID for advice regarding antibiotics avoiding what was recently used at [facility]. Patient was seen with her , impression and plan discussed, she will be followed up as outpatient in 1 month to ensure return to baseline Flavia Hsieh MD Ammonium Hydroxide Operator, [facility] Divisions of Medical Oncology & Hematology Department of Internal Medicine [place] [phone] This note was generated using a voice recognition system software. Although it was reviewed by the author prior to finalization, it may still contain incorrect words, spelling, and punctuation that were not noted when reviewing prior to saving. If a clinically significant typo or inaccurately typed phrase is noted, please notify the author. HPI Consult Data Date of Service:: 05/16/23 PCP / Referring Provider: GALDINO CnitronC Attending: Dr. Garrett Siddiqui DO Chief Complaint Chief Complaint: Chest pain History of Present Illness History of Present Illness: 73-year-old female with multiple chronic medical problems notably complicated diabetes and atherosclerotic arterial disease. Patient was hospitalized with chest pain within 24 hours from being discharged from [facility] and noted to have developed an acute pancytopenia. 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 Advanced Directives Power of Workplace Relations Adviser: No Living Will: Yes [facility] Medical History Arthritis Diabetes Diabetic ulcer of ankle Essential (primary) hypertension Gastric reflux High cholesterol History of venous thromboembolism Hormone deficiency Hyperlipidemia PAD (peripheral artery disease) Post-menopausal Seasonal allergies Type 2 diabetes mellitus Ulcer Wears glasses Home Medications lisinopril 10 mg tablet 10 mg PO DAILY BP 02/17/21 [History Last Taken 06/03/22] omeprazole 40 mg capsule,delayed release 40 mg PO BID #60 caps 04/06/22 [Rx Last Taken 06/03/22] acetaminophen 500 mg tablet 500 - 1,000 mg PO Q6H PRN Pain 06/03/22 [History Last Taken 06/03/22] ascorbic acid (vitamin C) 500 mg tablet (Vitamin C) 500 mg PO DAILY SUPPLEMENT 06/03/22 [History Last Taken 06/03/22] aspirin 81 mg chewable tablet 81 mg PO DAILY HEALTH 06/03/22 [History Last Taken 06/03/22] atorvastatin 40 mg tablet 40 mg PO QHS CHOLESTEROL 06/03/22 [History Last Taken 06/02/22] baclofen 10 mg tablet 10 mg PO BID BACK 06/03/22 [History Last Taken 06/03/22] citalopram 20 mg tablet 20 mg PO DAILY DEPRESSION 06/03/22 [History Last Taken 06/03/22] levothyroxine 75 mcg tablet 75 mcg PO DAILY THYROID 06/03/22 [History Last Taken 06/03/22] metoprolol succinate 50 mg tablet,extended release 24 hr 50 mg PO DAILY HEART 06/03/22 [History Last Taken 06/03/22] oxycodone 5 mg tablet 5 mg PO BID PAIN 06/03/22 [History Last Taken 06/03/22] polysaccharide iron complex 150 mg iron capsule (iFerex 150) 150 mg PO DAILY SUPPLEMENT 06/03/22 [History Last Taken 06/03/22] pregabalin 50 mg capsule 50 mg PO BID PAIN 06/03/22 [History Last Taken 06/03/22] cefdinir 300 mg capsule 300 mg PO Q12H 5 days #10 caps 06/08/22 [Rx Last Taken Unknown] insulin degludec 200 unit/mL (3 mL) subcutaneous pen (Tresiba FlexTouch U-200 insulin) 50 unit (0.25 mL) subcut BID diabetes #9 mL 06/08/22 [Rx Last Taken 06/03/22] insulin lispro 100 unit/mL subcutaneous pen (Humalog KwikPen (U-100) Insulin) See Protocol subcut ACHS #0 mL 06/08/22 [Rx Last Taken Unknown] linezolid 600 mg tablet 600 mg PO BID 7 days #14 tabs 06/08/22 [Rx Last Taken Unknown] sucralfate 1 gram tablet 1 g PO 1HR_ACHS 30 days #0 tabs 06/08/22 [Rx Last Taken Unknown] clopidogrel 75 mg tablet (Plavix) 75 mg PO DAILY #90 tabs 06/30/22 [Rx Last Taken Unknown] ciprofloxacin HCl 500 mg tablet 500 mg PO 07/23/22 [History Last Taken Unknown] cyclobenzaprine 10 mg tablet 10 mg PO TID PRN Muscle Spasm #20 TABLETS 09/19/22 [Rx Last Taken Unknown] lidocaine 5 % topical patch 1 patch topical DAILY PRN pain #15 ea 09/19/22 [Rx Last Taken Unknown] Allergy/AdvReac Type Severity Reaction Status Date / Time diphenhydramine Allergy Swelling Verified 09/19/22 19:44 [From Bensanjuanitarywyatt] Family History Father Heart disease Hypertension Mother Diabetes Hypertension Kidney disease Liver disease Other Arthritis Surgical History 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 Smoking Status: Never smoker alcohol intake: never substance use type: does not use what type of physical activity do you participate in: none ROS Constitutional Constitutional: Denies fever(s) ENT HEENT: Reports other Details: No nose or gum bleed Cardiovascular Cardiovascular: Reports other Details: Chest pain preceding the admission resolved ; Denies chest pain or edema Respiratory/Chest Respiratory/Chest: Denies dyspnea or hemoptysis Gastrointestinal Gastrointestinal: Denies abdominal pain, hematochezia or melena Genitourinary Genitourinary: Denies hematuria Integumentary Integumentary: Reports unusual bruising and other Details: She has an infected sore on her left Neurologic Neurologic: Denies focal weakness Hematologic/Lymphatic Hematologic/Lymphatic: Reports easy bruising; Denies easy bleeding Physical Exam Const alert and oriented x3 Nutritional Appearance: obese HEENT normocephalic Eyes no scleral icterus Neck no JVD Resp clear to auscultation bilaterally Cardio regular rate and regular rhythm GI soft to palpation and non-tender Extremity no clubbing, cyanosis or edema Extremity Narrative: Left foot no acute ischemic changes, right foot metatarsal amputation old Skin General Skin Exam: ecchymosis Neuro CN's II-XII intact bilaterally, moves all extremities and no focal motor deficits Psych mental status grossly normal Vital Signs Temperature 98.3 F 05/16/23 08:00 Temperature Source Temporal 05/16/23 08:00 Pulse Rate 91 05/16/23 08:28 Respiratory Rate 16 05/16/23 08:00 Respiratory Effort Normal, Non-Labored 05/16/23 04:00 Respiratory Depth Normal 05/16/23 04:00 Respiratory Pattern Normal 05/16/23 04:00 Blood Pressure 114/67 05/16/23 08:00 Blood Pressure Mean 82 05/16/23 08:00 Blood Pressure Source Monitor 05/16/23 08:00 Blood Pressure Position Semi-Fowlers 05/16/23 08:00 Blood Pressure Location Right Arm 05/16/23 08:00 Pulse Ox 100 05/16/23 11:10 Oxygen Delivery Method Nasal Cannula 05/16/23 11:10 Oxygen Flow Rate (L/min) 2 05/16/23 11:10 Laboratory Results - last 24 hr 05/15/23 21:34: WBC 3.8 L, RBC 2.26 L, Hgb 5.4 L*, Hct 19.0 L, MCV 84.1, MCH 23.9 L, MCHC 28.4 L, RDW Std Deviation 70.9 H, RDW Coeff of Melvina 23.9 H, Plt Count 39 L*, MPV 10.2, Immature Gran % (Auto) 0.500, Neut % (Auto) 43.6 L, Lymph % (Auto) 47.0 H, Anderson % (Auto) 4.2, Eos % (Auto) 3.7, Baso % (Auto) 1.0, Absolute Neuts (auto) 1.7 L, Absolute Lymphs (auto) 1.80, Nucleated RBC % 0, Differential Comment SCANNED, Diff Path Review August, Sodium Cancelled, Po tassium Cancelled, Chloride Cancelled, Carbon Dioxide Cancelled, Anion Gap Cancelled, BUN Cancelled, Creatinine Cancelled, Estim Creat Clear Calc Cancelled, Est GFR (MDRD) Af Amer Cancelled, Est GFR (MDRD) Non-Af Cancelled, BUN/Creatinine Ratio Cancelled, Glucose Cancelled, Lactic Acid 2.3 H*, Calcium Cancelled, Troponin I High Sens Cancelled 05/15/23 22:28: Blood Type O POSITIVE, Antibody Screen NEGATIVE, Crossmatch See Detail 05/15/23 23:09: Sodium 149 H, Potassium 4.8, Chloride 118 H, Carbon Dioxide 25.0, Anion Gap 6, BUN 21 H, Creatinine 1.02, Estim Creat Clear Calc 41.54, Est GFR (MDRD) Af Amer 68, Est GFR (MDRD) Non-Af 56 L, BUN/Creatinine Ratio 20.6 H, Glucose 101, Calcium 8.2 L, Troponin I High Sens 190 H* 05/16/23 04:50: Sodium 144, Potassium 4.3, Chloride 115 H, Carbon Dioxide 26.0, Anion Gap 3 L, BUN 22 H, Creatinine 0.96, Estim Creat Clear Calc 44.36, Est GFR (MDRD) Af Amer 73, Est GFR (MDRD) Non-Af 60, BUN/Creatinine Ratio 22.9 H, Glucose 69 L, Calcium 8.4 L, Phosphorus 2.2 L, Magnesium 1.4 L, Iron 209 H, TIBC 243 L, Iron Saturation 86.0 H, Ferritin 126, Lactate Dehydrogenase 254 H, Troponin I High Sens 722 H*, B-Natriuretic Peptide 2077.9 H, Triglycerides 90, Cholesterol 74, LDL Cholesterol 13, VLDL Cholesterol 18, HDL Cholesterol 43, TSH 13.00 H 05/16/23 05:40: POC Glucose 74 05/16/23 05:55: WBC 6.3, RBC 4.21, Hgb 10.6 L, Hct 35.2 L, MCV 83.6, MCH 25.2 L, MCHC 30.1 L D, RDW Std Deviation 65.4 H, RDW Coeff of Melvina 22.5 H, Plt Count 51 L , MPV 9.0, Immature Gran % (Auto) 0.200, Neut % (Auto) 50.6, Lymph % (Auto) 40.7, Anderson % (Auto) 5.7, Eos % (Auto) 1.9, Baso % (Auto) 0.9, Absolute Neuts (auto) 3.2, Absolute Lymphs (auto) 2.58, Nucleated RBC % 0, Anisocytosis 3+ 05/16/23 07:27: PT 15.0 H, INR 1.2, APTT 44.5 H 05/16/23 08:03: POC Glucose 72 L 05/16/23 08:50: S.aureus Protein A PCR NEGATIVE, MRSA (PCR) Negative 05/16/23 09:57: POC Glucose 86 05/16/23 11:36: POC Glucose 83 Laboratory Tests 07/23/22 07/23/22 07/23/22 12:15 12:15 12:15 WBC 10.8 Hgb 10.7 L Plt Count 297 PT APTT Creatinine 05/15/23 05/15/23 05/15/23 21:34 21:34 21:34 WBC 3.8 L Hgb 5.4 L* Plt Count 39 L* PT APTT Creatinine 05/16/23 05/16/23 05/16/23 04:50 05:55 05:55 WBC 6.3 Hgb 10.6 L Plt Count PT APTT Creatinine 0.96 05/16/23 05/16/23 05:55 07:27 WBC Hgb Plt Count 51 L PT 15.0 H APTT 44.5 H Creatinine Laboratory Tests 07/23/22 07/23/22 07/23/22 12:15 12:15 12:15 WBC 10.8 Hgb 10.7 L Plt Count 297 PT APTT Creatinine 05/14/2023 [facility] 05/15/23 05/15/23 05/15/23 21:34 21:34 21:34 WBC 3.8 L Hgb 5.4 L* Plt Count 107 39 L* PT APTT Creatinine 05/16/23 05/16/23 05/16/23 04:50 05:55 05:55 WBC 6.3 Hgb 10.6 L Plt Count PT APTT Creatinine 0.96 05/16/23 05/16/23 05:55 07:27 WBC Hgb Plt Count 51 L PT 15.0 H APTT 44.5 H Creatinine I personally reviewed patient's peripheral blood smear of May 16, 2023; erythroid series is unremarkable with no schistocytes. Platelets decreased in number but no abnormal or giant forms and myeloid series was unremarkable with no immature forms. Microbiology 05/15/23 00:01 Stool Stool Occult Blood (RAMON) - Final Diagnostic Data Chest X-Ray 05/15/23 21:08 IMPRESSION: Moderate right pleural effusion with basilar consolidation. Mild left effusion and basilar infiltrate. Electronically Signed: Dimitri Thayer DO at 22:31 EST , Echocardiogram 05/16/23 03:51 Interpretation Summary The estimated ejection fraction is 30-35 %. Mild (1+) mitral valve insufficiency. Moderately severe (3+) tricuspid valve insufficiency. Ordering Physician: Kaleb Hawkins Referring Physician: Karuna Mccall Performed By: Rolanda Scott, NANETTE, RVT Chest CTA 05/16/23 05:15 IMPRESSION: 1. No pulmonary embolus identified. 2. Atherosclerotic disease with no thoracic aortic aneurysm or dissection. 3. Large bilateral pleural effusions and bilateral atelectatic changes. 4. Subcutaneous edema and abdominal ascites. Electronically Signed: Raymond Kent MD at 7:43 EST , Abdomen Ultrasound 05/16/23 05:55 IMPRESSION: Heterogeneous appearance of the liver. Small amount of bilateral pleural effusions and ascites. Thickened gallbladder wall. Sludge is seen within the gallbladder lumen. Positive sonographic Petersen''s sign. The spleen is not enlarged. Calcified granulomas are seen within. Electronically Signed: Al Thacker MD at 12:48 EST ,
[2023-05-16 13:44] LABS: Pathologist Review Reviewed
--- NOTE | 2023-05-16 14:45 | CHAPLAIN ---
Type of Pastoral Visit _x__ Initial Visit ___ Follow-up Visit ___ On-call Visit ___ General Patient Visit ___ Spiritual Assessment ___ Family Conference ___ Bereavement ___ Rapid Response ___ Code Blue ___ Other (describe below) Pastoral Care Referral From _x__ Patient ___ Family ___ Nurse ___ Physician ___ Retail Shift Supervisor ___ Side Laster Staple ___ Other (describe below) Sacrament/Intervention _x__ Active listening ___ Anointing ___ Mandaeism ___ Bereavement ___ Communion ___ Cele exploration ___ _x__ Life review _x__ Prayer ___ Reconciliation ___ Sacrament of Sick _x__ Supportive presence ___ Wedding ___ Other (describe below) Pastoral Comments patient is talking on the phone to a daughter in [place] but hangs up quickly so she can speak to this hotel concierge; pt describes her health issue; pt used to live in [place] and has no family here in [place] except for her ; pt states she will be transferred out for more care; offer of support and listening ear is given and utilized; pt gives some life review; pt welcomes a prayer but acknowledges that she does not have a cele community of her own;
[2023-05-16 15:02] LABS: Immature Platelet Fraction 5.1 % (1.0-7.9); Platelet Count 43 K/mm3 (150-450); Reticulocyte Count 0.54 % (0.5-1.5)
[2023-05-16 16:18] LABS: Bedside Glucose 101 mg/dL (74-106)
--- NOTE | 2023-05-16 17:59 | PCM.HOSP.N ---
Hospitalist Note Patient was admitted earlier this morning by Dr. Hawkins for chest pain with SVT and elevated troponins. I saw the patient at the bedside later in the morning. At that time, patient was sitting up fairly comfortably in bed and in no acute distress. Patient was evaluated by cardiology, infectious disease and oncology throughout the course of today. Discussed with Dr. Shaw with Cardiology and given patient's echo findings and elevated troponins, highest concern is for Takotsubo cardiomyopathy with potentially worsened CAD in setting of medication nonadherence. Dr. Shaw recommended that patient have a left heart cath done for further evaluation, however patient has several medical concerns that are currently precluding this possibility. Patient notably had CABG done in 01/2023 at [facility] and follows with cardiology there. Initiated transfer to [facility] this afternoon, ready for transfer whenever bed becomes available. Full progress note to follow tomorrow if patient remains in our hospital.
--- NOTE | 2023-05-16 18:30 | DCINST_ITS ---
Discharge Instructions Diet Discharge Diet: Carb Control Diet Activity Discharge Activity: No Restrictions Weight Bearing Status: Full weight bearing Follow Up Care Test Results: Test results from this visit will be discussed in further detail at your follow- up appointment, if applicable. Discharge Plan Admission Admit Date/Time: 05/16/23 01:04 Primary Reason for Your Visit: chest pain, shortness of breath Attending Provider: Garrett Siddiqui Primary Care Provider: Karuna Mccall NP Consulting Providers: Mahad Lozano; Salomón Blanchard; Gilbert Molina; Kamron Dahl; Flavia Hsieh; Salomón Kong; Mazin Sher; Darin Manzano; Carlos Flower; Altagracia Robert [employer]; Kaleb Hawkins Discharge Orders/Prescriptions Prescriptions: New doxycycline monohydrate 100 mg Capsule 100 mg PO BID Qty: 0 0RF metoprolol tartrate 50 mg Tablet 50 mg PO BID Qty: 0 0RF oxycodone 5 mg Tablet 2.5 - 5 mg PO Q4H PRN PRN (Reason: Pain Score 4-10) Qty: 0 0RF Continued lisinopril 10 mg tablet 10 mg PO DAILY omeprazole 40 mg capsule,delayed release(DR/EC) 40 mg PO BID Qty: 60 2RF atorvastatin 40 mg tablet 40 mg PO QHS Patient Comments: TAKE 1 TABLET BY MOUTH ONCE DAILY AT BEDTIME polysaccharide iron complex [iFerex 150] 150 mg iron capsule 150 mg PO DAILY Patient Comments: TAKE 1 CAPSULE BY MOUTH ONCE DAILY acetaminophen 500 mg tablet 500 - 1,000 mg PO Q6H PRN (Reason: Pain) Patient Comments: TAKE 2 TABLETS BY MOUTH EVERY 8 HOURS FOR 15 DAYS levothyroxine 75 mcg tablet 75 mcg PO DAILY Patient Comments: TAKE 1 TABLET BY MOUTH ONCE DAILY citalopram 20 mg tablet 20 mg PO DAILY Patient Comments: TAKE 1 TABLET BY MOUTH ONCE DAILY ascorbic acid (vitamin C) [Vitamin C] 500 mg tablet 500 mg PO DAILY Patient Comments: TAKE 1 TABLET BY MOUTH ONCE DAILY baclofen 10 mg tablet 10 mg PO BID Patient Comments: TAKE 1 TABLET BY MOUTH TWICE DAILY NEEDED FOR BACK SPASM pregabalin 50 mg capsule 50 mg PO BID Patient Comments: TAKE 1 CAPSULE BY MOUTH TWICE DAILY linezolid 600 mg Tablet 600 mg PO BID 7 Days Qty: 14 0RF insulin lispro [Humalog KwikPen Insulin] 100 unit/mL Insulin Pen See Protocol subcut ACHS Qty: 0 0RF Protocol: 4. Sliding Scale Insulin High-Med Dosing Condition: 150-199 mg/dl = 2 units Condition: 200-259 mg/dl = 4 units Condition: 260-324 mg/dl = 6 units Condition: 325-374 mg/dl = 8 units Condition: 375-409 mg/dl = 10 units Condition: 410-449 mg/dl = 11 units Condition: Greater than 449 call physician Protocol Text: - Use for Total Daily Dose of Insulin 56-80 units - Patient who are insulin resistant or septic HIGH MEDIUM DOSING ALGORITHM sucralfate 1 gram Tablet 1 g PO 1HR_ACHS 30 Days Qty: 0 0RF Discontinued clopidogrel [Plavix] 75 mg tablet 75 mg PO DAILY Qty: 90 3RF Patient Comments: STOP 1 DAY PRIOR TO OR metoprolol succinate 50 mg tablet extended release 24 hr 50 mg PO DAILY Patient Comments: TAKE 1 TABLET BY MOUTH ONCE DAILY aspirin 81 mg tablet,chewable 81 mg PO DAILY Patient Comments: CHEW AND SWALLOW 1 TABLET BY MOUTH ONCE DAILY oxycodone 5 mg tablet 5 mg PO BID Patient Comments: TAKE 1 TABLET BY MOUTH TWICE DAILY NEEDED cefdinir 300 mg capsule 300 mg PO Q12H 5 Days Qty: 10 0RF insulin degludec [Tresiba FlexTouch U-200] 200 unit/mL (3 mL) insulin pen 50 unit SUBCUT BID Qty: 9 2RF ciprofloxacin HCl 500 mg tablet 500 mg PO cyclobenzaprine 10 mg tablet 10 mg PO TID PRN (Reason: Muscle Spasm) Qty: 20 0RF lidocaine 5 % adhesive patch,medicated 1 patch topical DAILY PRN (Reason: pain) Qty: 15 0RF Rx Instructions: leave on most painful area for up to 12 hrs Referrals / Follow Up: Alfonso Carlson Chi, MD [Med Staff - Active Staff] - Karuna Mccall NP, [employer] [Primary Care Provider] - Disposition Disposition (needs filled in before D/C Order can be placed): Against Medical Advice
--- NOTE | 2023-05-16 18:48 | PCM.DC.SUM ---
Providers Date of Admission: 05/16/23 Primary Care Physician: ROLAN Cintron Consultations 05/16/23 03:51 Consult: Cardiology Routine Consulting Provider: Mahad Lozano Reason for Consult: Chest Pain/SVT, elevated troponin EMERGENT Consult: No MD Notified: Yes Date Notified: 05/16/23 Time Notified: 01:56 Method of Notification: Text Consult: Infectious Disease Routine Consulting Provider: Salomón Blanchard Reason for Consult: Left diabetic foot ulcer EMERGENT Consult: No MD Notified: Yes Date Notified: 05/16/23 Time Notified: 02:20 Method of Notification: Text Consult: Onc/Wound/shipping & receiving lead Routine Comment: Reason for Consult:: LEFT FOOT ULCER Consult: Oncology/Hematology Routine Consulting Provider: [facility] Reason for Consult: Pancytopenia of recent onset. opinion about aspirin, CAD EMERGENT Consult: No MD Notified: Yes Date Notified: 05/16/23 Time Notified: 01:10 Method of Notification: Text Reason For Visit: CHEST PAIN, SVT Diagnosis Discharge Diagnosis (1) Pancytopenia: Status: Acute Code(s): D61.818 - Other pancytopenia Medications at Discharge Home Medications lisinopril 10 mg tablet 10 mg PO DAILY BP 02/17/21 omeprazole 40 mg capsule,delayed release 40 mg PO BID #60 caps 04/06/22 acetaminophen 500 mg tablet 500 - 1,000 mg PO Q6H PRN Pain 06/03/22 ascorbic acid (vitamin C) 500 mg tablet (Vitamin C) 500 mg PO DAILY SUPPLEMENT 06/03/22 atorvastatin 40 mg tablet 40 mg PO QHS CHOLESTEROL 06/03/22 baclofen 10 mg tablet 10 mg PO BID BACK 06/03/22 citalopram 20 mg tablet 20 mg PO DAILY DEPRESSION 06/03/22 levothyroxine 75 mcg tablet 75 mcg PO DAILY THYROID 06/03/22 polysaccharide iron complex 150 mg iron capsule (iFerex 150) 150 mg PO DAILY SUPPLEMENT 06/03/22 pregabalin 50 mg capsule 50 mg PO BID PAIN 06/03/22 insulin lispro 100 unit/mL subcutaneous pen (Humalog KwikPen (U-100) Insulin) See Protocol subcut ACHS #0 mL 06/08/22 linezolid 600 mg tablet 600 mg PO BID 7 days #14 tabs 06/08/22 sucralfate 1 gram tablet 1 g PO 1HR_ACHS 30 days #0 tabs 06/08/22 doxycycline monohydrate 100 mg capsule 100 mg PO BID #0 caps 05/16/23 metoprolol tartrate 50 mg tablet 50 mg PO BID #0 tabs 05/16/23 oxycodone 5 mg tablet 2.5 - 5 mg (0.5 - 1 x 5 mg) PO Q4H PRN PRN Pain Score 4-10 #0 tabs 05/16/23 Weight / BMI Weight Weight: 61.5 kg Body Mass Index (BMI) 24.9 ABG / Lab / Microbiology Data 05/16/23 12:09 05/16/23 04:50 Laboratory: Laboratory Results - last 24 hr 05/15/23 21:34: WBC 3.8 L, RBC 2.26 L, Hgb 5.4 L*, Hct 19.0 L, MCV 84.1, MCH 23.9 L, MCHC 28.4 L, RDW Std Deviation 70.9 H, RDW Coeff of Melvina 23.9 H, Plt Count 39 L*, MPV 10.2, Immature Gran % (Auto) 0.500, Neut % (Auto) 43.6 L, Lymph % (Auto) 47.0 H, Loving % (Auto) 4.2, Eos % (Auto) 3.7, Baso % (Auto) 1.0, Absolute Neuts (auto) 1.7 L, Absolute Lymphs (auto) 1.80, Nucleated RBC % 0, Differential Comment SCANNED, Diff Path Review Reviewed, Sodium Cancelled, Potassium Cancelled, Chloride Cancelled, Carbon Dioxide Cancelled, Anion Gap Cancelled, BUN Cancelled, Creatinine Cancelled, Estim Creat Clear Calc Cancelled, Est GFR (MDRD) Af Amer Cancelled, Est GFR (MDRD) Non-Af Cancelled, BUN/Creatinine Ratio Cancelled, Glucose Cancelled, Lactic Acid 2.3 H*, Calcium Cancelled, Troponin I High Sens Cancelled 05/15/23 22:28: Blood Type O POSITIVE, Antibody Screen NEGATIVE, Crossmatch See Detail 05/15/23 23:09: Sodium 149 H, Potassium 4.8, Chloride 118 H, Carbon Dioxide 25.0, Anion Gap 6, BUN 21 H, Creatinine 1.02, Estim Creat Clear Calc 41.54, Est GFR (MDRD) Af Amer 68, Est GFR (MDRD) Non-Af 56 L, BUN/Creatinine Ratio 20.6 H, Glucose 101, Calcium 8.2 L, Troponin I High Sens 190 H* 05/16/23 04:50: Sodium 144, Potassium 4.3, Chloride 115 H, Carbon Dioxide 26.0, Anion Gap 3 L, BUN 22 H, Creatinine 0.96, Estim Creat Clear Calc 44.36, Est GFR (MDRD) Af Amer 73, Est GFR (MDRD) Non-Af 60, BUN/Creatinine Ratio 22.9 H, Glucose 69 L, Calcium 8.4 L, Phosphorus 2.2 L, Magnesium 1.4 L, Iron 209 H, TIBC 243 L, Iron Saturation 86.0 H, Ferritin 126, Lactate Dehydrogenase 254 H, Troponin I High Sens 722 H*, B-Natriuretic Peptide 2077.9 H, Triglycerides 90, Cholesterol 74, LDL Cholesterol 13, VLDL Cholesterol 18, HDL Cholesterol 43, TSH 13.00 H 05/16/23 05:40: POC Glucose 74 05/16/23 05:55: WBC 6.3, RBC 4.21, Hgb 10.6 L, Hct 35.2 L, MCV 83.6, MCH 25.2 L, MCHC 30.1 L D, RDW Std Deviation 65.4 H, RDW Coeff of Melvina 22.5 H, Plt Count 51 L, MPV 9.0, Immature Gran % (Auto) 0.200, Neut % (Auto) 50.6, Lymph % (Auto) 40.7, Loving % (Auto) 5.7, Eos % (Auto) 1.9, Baso % (Auto) 0.9, Absolute Neuts (auto) 3.2, Absolute Lymphs (auto) 2.58, Nucleated RBC % 0, Anisocytosis 3+ 05/16/23 07:27: PT 15.0 H, INR 1.2, APTT 44.5 H 05/16/23 08:03: POC Glucose 72 L 05/16/23 08:50: S.aureus Protein A PCR NEGATIVE, MRSA (PCR) Negative 05/16/23 09:57: POC Glucose 86 05/16/23 11:36: POC Glucose 83 05/16/23 12:09: Plt Count 42 L*, Immature Plt Fraction 5.1, Retic Count 0.54, Immature Retic Fraction 10.00, Retic Hgb Equivalent 31.0 05/16/23 16:00: POC Glucose 101 Microbiology: Microbiology 05/15/23 00:01 Stool Stool Occult Blood (RAMON) - Final Radiography Diagnostic Testing: Radiology Impression Chest X-Ray 05/15/23 21:08 IMPRESSION: Moderate right pleural effusion with basilar consolidation. Mild left effusion and basilar infiltrate. Electronically Signed: Dimitri Thayer DO at 22:31 EST , Echocardiogram 05/16/23 03:51 Interpretation Summary The estimated ejection fraction is 30-35 %. Mild (1+) mitral valve insufficiency. Moderately severe (3+) tricuspid valve insufficiency. Ordering Physician: Kaleb Hawkins Referring Physician: Karuna Mccall Performed By: Rolanda Scott, NANETTE, RVT Chest CTA 05/16/23 05:15 IMPRESSION: 1. No pulmonary embolus identified. 2. Atherosclerotic disease with no thoracic aortic aneurysm or dissection. 3. Large bilateral pleural effusions and bilateral atelectatic changes. 4. Subcutaneous edema and abdominal ascites. Electronically Signed: Raymond Kent MD at 7:43 EST , Abdomen Ultrasound 05/16/23 05:55 IMPRESSION: Heterogeneous appearance of the liver. Small amount of bilateral pleural effusions and ascites. Thickened gallbladder wall. Sludge is seen within the gallbladder lumen. Positive sonographic Petersen''s sign. The spleen is not enlarged. Calcified granulomas are seen within. Electronically Signed: Al Thacker MD at 12:48 EST , D/C Instructions Discharge Diet: Carb Control Diet Weight Bearing Status: Full weight bearing Discharge Plan Admission Admit Date/Time: 05/16/23 01:04 Primary Reason for Your Visit: chest pain, shortness of breath Attending Provider: Garrett Siddiqui Primary Care Provider: Karuna Mccall NP Consulting Providers: Mahad Lozano; Salomón Blanchard; Gilbert Molina; Kamron Dahl; Flavia Hsieh; Salomón Kong; Mazin Sher; Darin Manzano; Carlos Flower; Altagracia Robert DOOR TECHNICIAN; Kaleb Hawkins Discharge Orders/Prescriptions Prescriptions: New doxycycline monohydrate 100 mg Capsule 100 mg PO BID Qty: 0 0RF metoprolol tartrate 50 mg Tablet 50 mg PO BID Qty: 0 0RF oxycodone 5 mg Tablet 2.5 - 5 mg PO Q4H PRN PRN (Reason: Pain Score 4-10) Qty: 0 0RF Continued lisinopril 10 mg tablet 10 mg PO DAILY omeprazole 40 mg capsule,delayed release(DR/EC) 40 mg PO BID Qty: 60 2RF atorvastatin 40 mg tablet 40 mg PO QHS Patient Comments: TAKE 1 TABLET BY MOUTH ONCE DAILY AT BEDTIME polysaccharide iron complex [iFerex 150] 150 mg iron capsule 150 mg PO DAILY Patient Comments: TAKE 1 CAPSULE BY MOUTH ONCE DAILY acetaminophen 500 mg tablet 500 - 1,000 mg PO Q6H PRN (Reason: Pain) Patient Comments: TAKE 2 TABLETS BY MOUTH EVERY 8 HOURS FOR 15 DAYS levothyroxine 75 mcg tablet 75 mcg PO DAILY Patient Comments: TAKE 1 TABLET BY MOUTH ONCE DAILY citalopram 20 mg tablet 20 mg PO DAILY Patient Comments: TAKE 1 TABLET BY MOUTH ONCE DAILY ascorbic acid (vitamin C) [Vitamin C] 500 mg tablet 500 mg PO DAILY Patient Comments: TAKE 1 TABLET BY MOUTH ONCE DAILY baclofen 10 mg tablet 10 mg PO BID Patient Comments: TAKE 1 TABLET BY MOUTH TWICE DAILY NEEDED FOR BACK SPASM pregabalin 50 mg capsule 50 mg PO BID Patient Comments: TAKE 1 CAPSULE BY MOUTH TWICE DAILY linezolid 600 mg Tablet 600 mg PO BID 7 Days Qty: 14 0RF insulin lispro [Humalog KwikPen Insulin] 100 unit/mL Insulin Pen See Protocol subcut ACHS Qty: 0 0RF Protocol: 4. Sliding Scale Insulin High-Med Dosing Condition: 150-199 mg/dl = 2 units Condition: 200-259 mg/dl = 4 units Condition: 260-324 mg/dl = 6 units Condition: 325-374 mg/dl = 8 units Condition: 375-409 mg/dl = 10 units Condition: 410-449 mg/dl = 11 units Condition: Greater than 449 call physician Protocol Text: - Use for Total Daily Dose of Insulin 56-80 units - Patient who are insulin resistant or septic HIGH MEDIUM DOSING ALGORITHM sucralfate 1 gram Tablet 1 g PO 1HR_ACHS 30 Days Qty: 0 0RF Discontinued clopidogrel [Plavix] 75 mg tablet 75 mg PO DAILY Qty: 90 3RF Patient Comments: STOP 1 DAY PRIOR TO OR metoprolol succinate 50 mg tablet extended release 24 hr 50 mg PO DAILY Patient Comments: TAKE 1 TABLET BY MOUTH ONCE DAILY aspirin 81 mg tablet,chewable 81 mg PO DAILY Patient Comments: CHEW AND SWALLOW 1 TABLET BY MOUTH ONCE DAILY oxycodone 5 mg tablet 5 mg PO BID Patient Comments: TAKE 1 TABLET BY MOUTH TWICE DAILY NEEDED cefdinir 300 mg capsule 300 mg PO Q12H 5 Days Qty: 10 0RF insulin degludec [Tresiba FlexTouch U-200] 200 unit/mL (3 mL) insulin pen 50 unit SUBCUT BID Qty: 9 2RF ciprofloxacin HCl 500 mg tablet 500 mg PO cyclobenzaprine 10 mg tablet 10 mg PO TID PRN (Reason: Muscle Spasm) Qty: 20 0RF lidocaine 5 % adhesive patch,medicated 1 patch topical DAILY PRN (Reason: pain) Qty: 15 0RF Rx Instructions: leave on most painful area for up to 12 hrs Referrals / Follow Up: Alfonso Carlson Chi, MD [Med Staff - Active Staff] - Karuna Mccall NP, DOOR TECHNICIAN-C [Primary Care Provider] - Disposition Disposition (needs filled in before D/C Order can be placed): [facility]
[2023-05-16] MEDS: Doxycycline 100 MG CAPSULE PO (20:41)
[2023-05-16] MEDS: Atorvastatin Calcium 40 MG Tablet PO (20:42)
[2023-05-16] MEDS: Acetaminophen 325 MG Tablet 650 MG PO (20:42)
--- NOTE | 2023-05-16 21:24 | NURSING ---
Night time meds given at 2041 by this RN , pt w/ x3 emesis @ 2051, one med visualized by this RN in clear emesis
--- NOTE | 2023-05-16 22:07 | NURSING ---
Approximately 2029 this RN notified by foundry superintendant Sarbjit Huerta and Yaritza ZIEGLER that patient has a bed at [facility] and that transport is being set up. This RN notified patient that she has a bed at [facility] and that we are currently setting up transport to get her there via EMS. Transport provided ETA of 0100 and pt was notified of this. Pt voiced concerns regarding transfer process and time. This RN reassured pt that we take care of collecting her belongings and getting her over to the EMS kelin, pt agreeable to transport at this time. This RN in room w/ patient to assess, get vitals and get meds. Pt on phone with her Juventino Ahumada notifying him of her pending transport to [facility]. Pts stating he does not consent to transport and that she does not need to be transported. At this time, this RN informed patient that I am available to talk to her and answer any questions and concerns he may have. This RN verified perosn on phone was patient's , Juventino Ahumada. Pt stating he does not understand why patient needs to be transferred . This RN explained that w/ patients medical history and current health issues, her doctors believe she needs to be at a higher acuity hospital. Pt had a recent admission at [facility] and because they know her history the day shift hospitalist chose to contact there for her placement. Pt's stating that he was told by the Hematology doctor this afternoon that the patient does not need transferred. This RN reiterated pt need for transport to higher acuity hospital, pt seemingly agreeable at this time and voices understanding to this RN of why pt needs higher acuity hospital. Pt concerned that patient will not get to [facility] fast enough as ETA for transport team is 0100 05/17/23 and he states im going to take her up there, I can just take her now . This RN explained the transport process w/ EMS and that we have a bed for her at [facility] that she will get to go to upon arrival via EMS. This RN educated that should the patients come to [facility] and leave with her this would be considered AMA. Reinforced that should pt leave here with and something happen that there is nothing that this RN nor [facility] employees are able to do. Leaving AMA, the patient will be transported without the use of cardiac monitors, IV access and EMT monitoring. Pt voices his understanding that transporting the patient by private vehicle is more risky and that no medical personnel will be accompanying them during transportation and that him and patient will have to enter through [facility] ER and wait the allotted time in ER versus being taken straight to assigned unit set up by [facility]. At this time pt's off of the phone. This RN directly asked patient if she is comfortable with leaving AMA and going to [facility] by private transportation. Reinforced to patient that IV's will be taken out, she will have to wait in [facility] ER and she will not have cardiac monitoring nor meds available if an event were to occur. Pt states to this RN it's what he wants , I want to go with him . This RN then informed Dr. Beavers of pending AMA. This RN bedside to have patient sign AMA form, witnessed patient's signature. While collecting patient's belongings, pt states my is difficult sometimes . bedside, ready to take patient via wheelchair to vehicle. began to raise voice at this RN while this RN taking patient's IV's out. Pt stating why cant you leave them in you would if she was going by ambulance . Explained to patient's that legally this RN cannot let the patient leave with intravenous access if patient leaving AMA. Pt continues to raise voice and repeatedly telling this RN that she is going to leave them in. This RN informed patients again that it is a hospital policy and legal matter. Pts asks pt at this time what she wants to do. Pt states i want to go with you to her . Pt states she will have to take the IV's out then . both parties agreeable and at this time RN removed IV's.
[2023-05-17 14:21] LABS: Platelet Count 42 K/mm3 (150-450)
[2023-05-18 05:07] LABS: Haptoglobin 106 mg/dL (42-346)
--- NOTE | 2023-05-24 09:57 | DS.PCM_ITS ---
Providers Date of Admission: 05/16/23 Date of Discharge: 05/16/23 Primary Care Physician: ROLAN Cintron Consultations 05/16/23 03:51 Consult: Cardiology Routine Consulting Provider: Mahad Lozano Reason for Consult: Chest Pain/SVT, elevated troponin EMERGENT Consult: No MD Notified: Yes Date Notified: 05/16/23 Time Notified: 01:56 Method of Notification: Text Consult: Infectious Disease Routine Consulting Provider: Salomón Blanchard Reason for Consult: Left diabetic foot ulcer EMERGENT Consult: No MD Notified: Yes Date Notified: 05/16/23 Time Notified: 02:20 Method of Notification: Text Consult: Onc/Wound/folding machine feeder Routine Comment: Reason for Consult:: LEFT FOOT ULCER Consult: Oncology/Hematology Routine Consulting Provider: [facility]) Reason for Consult: Pancytopenia of recent onset. opinion about aspirin, CAD EMERGENT Consult: No Notified: Yes Date Notified: 05/16/23 Time Notified: 01:10 Method of Notification: Text Reason For Visit: CHEST PAIN, SVT Diagnosis Discharge Diagnosis (1) Pancytopenia: Status: Acute Code(s): D61.818 - Other pancytopenia Medications at Discharge Home Medications lisinopril 10 mg tablet 10 mg PO DAILY BP 02/17/21 omeprazole 40 mg capsule,delayed release 40 mg PO BID #60 caps 04/06/22 acetaminophen 500 mg tablet 500 - 1,000 mg PO Q6H PRN Pain 06/03/22 ascorbic acid (vitamin C) 500 mg tablet (Vitamin C) 500 mg PO DAILY SUPPLEMENT 06/03/22 atorvastatin 40 mg tablet 40 mg PO QHS CHOLESTEROL 06/03/22 baclofen 10 mg tablet 10 mg PO BID BACK 06/03/22 citalopram 20 mg tablet 20 mg PO DAILY DEPRESSION 06/03/22 levothyroxine 75 mcg tablet 75 mcg PO DAILY THYROID 06/03/22 polysaccharide iron complex 150 mg iron capsule (iFerex 150) 150 mg PO DAILY SUPPLEMENT 06/03/22 pregabalin 50 mg capsule 50 mg PO BID PAIN 06/03/22 insulin lispro 100 unit/mL subcutaneous pen (Humalog KwikPen (U-100) Insulin) See Protocol subcut ACHS #0 mL 06/08/22 linezolid 600 mg tablet 600 mg PO BID 7 days #14 tabs 06/08/22 sucralfate 1 gram tablet 1 g PO 1HR_ACHS 30 days #0 tabs 06/08/22 doxycycline monohydrate 100 mg capsule 100 mg PO BID #0 caps 05/16/23 metoprolol tartrate 50 mg tablet 50 mg PO BID #0 tabs 05/16/23 oxycodone 5 mg tablet 2.5 - 5 mg (0.5 - 1 x 5 mg) PO Q4H PRN PRN Pain Score 4-10 #0 tabs 05/16/23 Hospital Course Operations None Procedures EKG and Transthoracic echo Summary of Care Provided Minutes Spent on Discharge: 35 Hospital Course: Patient is a 73 year old female who presented to [facility] on 05/15/2023 with chest pain and shortness of breath. Short hospital course as noted below. Patient left the hospital AGAINST MEDICAL ADVICE on 05/16. 1. NSTEMI - Cardiology evaluated. Troponin trend 190 > 700. Found to have new onset HFrEF concerning for Takusubo cardiomyopathy but cannot rule out acute cardiac ischemia in setting of known CAD w/ recent CABG and questionable medication adherence. Recommendation was for transfer to [facility] where patient had CABG done in 01/2023 for consideration of left heart cath. Patient was accepted for trans joshua but unfortunately she and her decided they wanted for her to leave the hospital AGAINST MEDICAL ADVICE, supposedly so he could take her to [facility] himself. Patient left AMA on 05/16. DAPT notably was held in hospital due to pancytopenia as noted below. 2. SVT - Noted to have a regular narrow complex SVT that converted w/ adenosine in the ED. Cardiology recommendation was for patient to increase her home beta juany dosage to Lopressor 50 mg twice daily. 3. New onset HFrEF - TTE 05/16 showed EF 30-35%, LV base aleisha well while septum is dyskinetic and rest of LV is severely hypokinetic or akinetic, highly concerning for Takusubo cardiomyopathy. Previous history of HFpEF as noted below. Cardiology rec was for transfer to [facility] for further management. 4. CAD s/p recent CABG, PAD, history of HFpEF - CABG x 3 at [facility] on 01/14/2023. Post op TTE showed EF 65%, RV dilated w/ mildly decreased RV systolic function, +2-3 TR, otherwise similar to previous echo. Notably patient did develop a hypoxic hypotensive event on post op day 2 and CODE BLUE was called. Went into Afib on post op day 3 that was reversed with IV amiodarone, has remained in sinus rhythm since that event. 5. Pancytopenia - Oncology evaluated. Hemoglobin was 5.4, improved to over 10 with only 1 unit of pRBCs, therefore was very likely dilutional and inaccurate. Moderately severe thrombocytopenia suspected secondary to recent drug or antibiotic exposure. Mild acute leukopenia suspected secondary to recent infection. Recommendation was to hold pharmacologic antiplatelet/anticoagulant therapy with plt count < 50K, no need for plt transfusion, discuss with ID on which antibiotics to avoid moving forward. 6. Recent history of MRSA LLE infection - Infectious disease evaluated. Recent hospitalization at [facility] for MRSA LLE infection. Leg wound was debrided at that time. Was treated w/ linezolid while inpatient, transitioned to PO doxycycline on discharge. Suspect that linezolid could have contributed to thrombocytopenia. Planned to continue doxycycline with stop date of 05/27/23. Leg wound notably appeared to be healing well. Chronic medical conditions: - HTN, HLD: Continue home losartan, home Lopressor increased as noted above. - T2DM with diabetic neuropathy: SSI while inpatient, continue home pregabalin. - Anxiety, depression, chronic back pain: Continue home baclofen, flexeril, citalopram. - GERD, h/o PUD: Continue home PPI and sucralfate. Total clinical time spent by myself addressing the patient's discharge needs: 35 minutes. Physical Exam Const alert and average body habitus Constitutional Narrative: Elderly female, chronically ill-appearing, alert but somewhat confused and answered several questions inappropriately, noted to be combative with staff. HEENT normocephalic, head/scalp atraumatic, hearing grossly normal bilaterally and nasal mucous membranes and turbinates normal Eyes PERRL, EOMs intact bilaterally and conjunctivae normal Neck full ROM, no lymphadenopathy and supple Lymph Lymphatic: no lymphadenopathy noted Chest inspection of chest normal Resp normal respiratory effort, normal air movement, no use of accessory muscles and clear to auscultation bilaterally Cardio regular rate, regular rhythm, no murmurs and peripheral pulses 2+ throughout GI normal to inspection, nondistended, normoactive bowel sounds, soft to palpation, non-tender and non-distended Back/Spine normal ROM Extremity full ROM and no pedal edema Extremity Narrative: LLE wound healing well. Neuro Sensorium / Orientation: alert Motor Exam: strength 5/5 throughout Psych Mood & Affect: anxious Weight / BMI Weight Weight: 61.5 kg Body Mass Index (BMI) 24.9 ABG / Lab / Microbiology Data 05/16/23 12:09 05/16/23 04:50 Microbiology: Microbiology 05/15/23 00:01 Stool Stool Occult Blood (RAMON) - Final D/C Instructions Discharge Diet: Carb Control Diet Weight Bearing Status: Full weight bearing Meaningful Use Info Meaningful Use Diagnoses (Choose all that apply): None applicable Discharge Plan Admission Admit Date/Time: 05/16/23 01:04 Primary Reason for Your Visit: chest pain, shortness of breath Attending Provider: Garrett Siddiqui Primary Care Provider: Karuna Mccall NP Consulting Providers: Mahad Lozano; Salomón Blanchard; Gilbert Molina; Kamron Dahl; Flavia Hsieh; Salomón Kong; Mazin Sher; Darin Mnazano; Carlos Flower; Altagracia Robert STRANDING MACHINE OPERATOR HELPER; Kaleb Hawkins Discharge Orders/Prescriptions Prescriptions: New doxycycline monohydrate 100 mg Capsule 100 mg PO BID Qty: 0 0RF metoprolol tartrate 50 mg Tablet 50 mg PO BID Qty: 0 0RF oxycodone 5 mg Tablet 2.5 - 5 mg PO Q4H PRN PRN (Reason: Pain Score 4-10) Qty: 0 0RF Continued lisinopril 10 mg tablet 10 mg PO DAILY omeprazole 40 mg capsule,delayed release(DR/EC) 40 mg PO BID Qty: 60 2RF atorvastatin 40 mg tablet 40 mg PO QHS Patient Comments: TAKE 1 TABLET BY MOUTH ONCE DAILY AT BEDTIME polysaccharide iron complex [iFerex 150] 150 mg iron capsule 150 mg PO DAILY Patient Comments: TAKE 1 CAPSULE BY MOUTH ONCE DAILY acetaminophen 500 mg tablet 500 - 1,000 mg PO Q6H PRN (Reason: Pain) Patient Comments: TAKE 2 TABLETS BY MOUTH EVERY 8 HOURS FOR 15 DAYS levothyroxine 75 mcg tablet 75 mcg PO DAILY Patient Comments: TAKE 1 TABLET BY MOUTH ONCE DAILY citalopram 20 mg tablet 20 mg PO DAILY Patient Comments: TAKE 1 TABLET BY MOUTH ONCE DAILY ascorbic acid (vitamin C) [Vitamin C] 500 mg tablet 500 mg PO DAILY Patient Comments: TAKE 1 TABLET BY MOUTH ONCE DAILY baclofen 10 mg tablet 10 mg PO BID Patient Comments: TAKE 1 TABLET BY MOUTH TWICE DAILY NEEDED FOR BACK SPASM pregabalin 50 mg capsule 50 mg PO BID Patient Comments: TAKE 1 CAPSULE BY MOUTH TWICE DAILY linezolid 600 mg Tablet 600 mg PO BID 7 Days Qty: 14 0RF insulin lispro [Humalog KwikPen Insulin] 100 unit/mL Insulin Pen See Protocol subcut ACHS Qty: 0 0RF Protocol: 4. Sliding Scale Insulin High-Med Dosing Condition: 150-199 mg/dl = 2 units Condition: 200-259 mg/dl = 4 units Condition: 260-324 mg/dl = 6 units Condition: 325-374 mg/dl = 8 units Condition: 375-409 mg/dl = 10 units Condition: 410-449 mg/dl = 11 units Condition: Greater than 449 call physician Protocol Text: - Use for Total Daily Dose of Insulin 56-80 units - Patient who are insulin resistant or septic HIGH MEDIUM DOSING ALGORITHM sucralfate 1 gram Tablet 1 g PO 1HR_ACHS 30 Days Qty: 0 0RF Discontinued clopidogrel [Plavix] 75 mg tablet 75 mg PO DAILY Qty: 90 3RF Patient Comments: STOP 1 DAY PRIOR TO OR metoprolol succinate 50 mg tablet extended release 24 hr 50 mg PO DAILY Patient Comments: TAKE 1 TABLET BY MOUTH ONCE DAILY aspirin 81 mg tablet,chewable 81 mg PO DAILY Patient Comments: CHEW AND SWALLOW 1 TABLET BY MOUTH ONCE DAILY oxycodone 5 mg tablet 5 mg PO BID Patient Comments: TAKE 1 TABLET BY MOUTH TWICE DAILY NEEDED cefdinir 300 mg capsule 300 mg PO Q12H 5 Days Qty: 10 0RF insulin degludec [Tresiba FlexTouch U-200] 200 unit/mL (3 mL) insulin pen 50 unit SUBCUT BID Qty: 9 2RF ciprofloxacin HCl 500 mg tablet 500 mg PO cyclobenzaprine 10 mg tablet 10 mg PO TID PRN (Reason: Muscle Spasm) Qty: 20 0RF lidocaine 5 % adhesive patch,medicated 1 patch topical DAILY PRN (Reason: pain) Qty: 15 0RF Rx Instructions: leave on most painful area for up to 12 hrs Referrals / Follow Up: Alfonso Carlson Chi, MD [Med Staff - Active Staff] - Karuna Mccall NP, STRANDING MACHINE OPERATOR HELPER-C [Primary Care Provider] - Disposition Disposition (needs filled in before D/C Order can be placed): Against Medical Advice Charges/Coding Visit Charges Inpatient E&M: 21891 Disch Hosp >30min
== END 2023-05-16 22:15 | disposition short-term general hospital (02) | DRG 808 ==
LOC: ED 05-16 00:58 → ICU 05-16 01:44
PROVIDERS: Internal Medicine Hematology & Oncology; Admitting Provider Internal Medicine; Emergency Provider Emergency Medicine; PCP Nurse Practitioner Family; Visit Provider Hospitalist
DX: D61.818 Other pancytopenia (principal); I21.A1 Myocardial infarction type 2; I47.10 Supraventricular tachycardia, unspecified; I50.32 Chronic diastolic (congestive) heart failure; L97.529 Non-pressure chronic ulcer of other part of left foot with unspecified severity; E11.42 Type 2 diabetes mellitus with diabetic polyneuropathy; B95.62 Methicillin resistant Staphylococcus aureus infection as the cause of diseases classified elsewhere; I11.0 Hypertensive heart disease with heart failure; E11.51 Type 2 diabetes mellitus with diabetic peripheral angiopathy without gangrene; E11.621 Type 2 diabetes mellitus with foot ulcer; I25.118 Atherosclerotic heart disease of native coronary artery with other forms of angina pectoris; F32.A Depression, unspecified; K21.9 Gastro-esophageal reflux disease without esophagitis; E78.00 Pure hypercholesterolemia, unspecified; F41.9 Anxiety disorder, unspecified; M54.9 Dorsalgia, unspecified; G89.29 Other chronic pain; Z66 Do not resuscitate; Z95.1 Presence of aortocoronary bypass graft; Z79.82 Long term (current) use of aspirin; Z79.01 Long term (current) use of anticoagulants
CPT/HCPCS: 36415; 71045; 71275; 76705; 80048; 80061; 82274; 82728; 82962; 83010; 83540; 83550; 83605; 83615; 83735; 83880; 84100; 84443; 84484; 85025; 85027; 85045; 85049; 85610; 85730; 86850; 86900; 86901; 86920; 86922; 87640; 93005; 93306; 94668; 97802; 99284; J7030; J7040; P9016; Q9967; A4216; J0153; J2405; J7799